=== PATIENT | female | born 1965 | race African-American/Black ===

== ENCOUNTER 2016-09-03 17:38 | Inpatient (IN) | payer OTHER, MEDICAID, MEDICARE ==
[2016-09-03] VITALS (10 sets, daily range): BP systolic 103–237; BP diastolic 51–102; PULSE 56–99; RESP 14–18; TEMP 97.8–99; O2SAT 81–100
[~2016-09-03] VITALS: Ht 154.9 cm; Wt 100.0 kg
[~2016-09-03 17:38] MED LIST: BUME1TAB PO; CARV25TA PO; CLON0.1T PO; GABA600T PO; LANTUS2P SQ; LIPI40TA PO; LISI-515 PO; PANT40TA3 PO; PERC10TA27 PO; ROBA500T PO; WARF4TAB52 PO
[2016-09-03] MEDS ORDERED: SUCCINYLCHOLINE CHLORIDE 200 MG/10 ML VIAL ONE (17:50)
[2016-09-03] MEDS ORDERED: ETOMIDATE 40 MG/20 ML VIAL ONE ×2 (17:50)
[2016-09-03] MEDS ORDERED: PROPOFOL 1000 MG/100 ML INJ 100 ML ONE (17:57)
[2016-09-03] MEDS ORDERED: SODIUM CHLORIDE 0.9% FLUSH 5 ML FLUSH IVF PRN (18:00)
[2016-09-03] MEDS ORDERED: NITROGLYCERIN-DEXTROSE INJ 250 ML IV ONE (18:00)
[2016-09-03] MEDS ORDERED: MIDAZOLAM 100 MG/ML INJ 100 ML IV SCH ×2 (18:00→20:00)
[2016-09-03] MEDS ORDERED: NITROGLYCERIN-DEXTROSE INJ 250 ML ONE (18:00)
[2016-09-03] MEDS: RESP: ALBUTEROL 2.5 MG/IPRATROPIUM 0.5 MG NEB (SCH) INH ×4 (18:00→20:23)
[2016-09-03] MEDS ORDERED: methylPREDNISolone SOD SUCC 125 MG/2 ML VIAL IVP ONE (18:00)
[2016-09-03] MEDS ORDERED: MIDAZOLAM HCL 5 MG/ML VIAL (1 ML) ONE (18:05)
[2016-09-03] MEDS ORDERED: MIDAZOLAM 100 MG/ML INJ 100 ML ONE (18:07)
[2016-09-03] MEDS ORDERED: fentaNYL DRIP 250 ML ONE (18:22)
--- NOTE | 2016-09-03 18:23 | PD ---
HPI Chief Complaint: Respiratory Distress Time Seen by Provider: 17:59 Travel History International Travel<30 days: No Contact w/Intl Traveler<30days: No Traveled to known affect area: No History of Present Illness HPI 51yo F with PMH of CHF, DM, PVD, HTN, Afib on coumadin, CKD presents to the ED with EVAC for SOB and chest pain today. Pt is tachypneic, saturating in the 70s , holding the BIPAP mask. Pt was not able to tolerate the BIPAP mask and agrees with endotracheal intubation. Pt was diaphoretic and hypertensive with crackles on lung exam. Pt stated she had the chest pain with sob but is in too much distress to answer any more questions. She was saturating in the 80s holding the BIPAP mask and not able to have it strapped on her so emergently intubated. Pt was admitted 07/22/16-07/25/16 for CHF exacerbation. PFSH Past Medical History Hx Anticoagulant Therapy: Yes Anemia: Yes Arthritis: Yes Asthma: No Atrial Fibrillation: Yes Autoimmune Disease: No Blood Disorders: No Anxiety: Yes Depression: No Heart Rhythm Problems: Yes (afib) Cancer: No Cardiovascular Problems: Yes High Cholesterol: No Chemotherapy: No Chest Pain: Yes Congestive Heart Failure: Yes COPD: Yes Cerebrovascular Accident: No Diabetes: Yes Diminished Hearing: No Deep Vein Thrombosis: Yes Endocrine: Yes Gastrointestinal Disorders: Yes (IBS) GERD: Yes Gout: Yes Genitourinary: Yes Headaches: Yes Hepatitis: No Hiatal Hernia: No Heparin Induced Thrombocytopen: No Hypertension: Yes Immune Disorder: No Implanted Vascular Access Dvce: No Kidney Stones: No Musculoskeletal: Yes Neurologic: No Psychiatric: Yes Reproductive: No Respiratory: Yes Immunizations Current: Yes Migraines: No Myocardial Infarction: No Pneumonia: Yes Radiation Therapy: No Renal Failure: No Seizures: No Sickle Cell Disease: No (carries trait) Sleep Apnea: Yes Thyroid Disease: No Ulcer: Yes Influenza Vaccination: No PNEUMOCCOCAL Vaccine (Year): 2 ?: Not Menopausal: Yes : 5 Para: 4 Miscarriage: 1 Tubal Ligation: Yes Past Surgical History Abdominal Surgery: No AICD: No Appendectomy: No Arteriovenous Shunt: No Cardiac Surgery: No Cholecystectomy: No Ear Surgery: No Endocrine Surgery: No Eye Surgery: No Genitourinary Surgery: No Gynecologic Surgery: Yes (tubal ligation) Insulin Pump: No Joint Replacement: No Neurologic Surgery: No Oral Surgery: Yes (tooth extraction) Pacemaker: No Thoracic Surgery: No Tonsillectomy: Yes Other Surgery: Yes (DEBRIDEMENT OF ABSCESS, STENT IN LT LEG, FASCIOTOMY LEFT LEG) Social History Alcohol Use: No Tobacco Use: No Substance Use: No Allergies-Medications (Allergen,Severity, Reaction): Coded Allergies: Ibuprofen (Verified Allergy, Severe, MESSES WITH KIDNEYS, 07/22/16) Sulfa (Verified Allergy, Severe, HIVES, 07/22/16) Egg Allergy (Verified Allergy, Intermediate, Very Upset Stomach, 07/22/16) Milk (Verified Allergy, Unknown, 07/22/16) *MDRO Multi-Drug Resistant Organism (Verified Adverse Reaction, Unknown, KPC, ESBL, MRSA, 09/04/16) MRSA (leg wound) - 11/2004, 01/2005 MRSA toe wound 12/21/14. 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 Reported Meds & Prescriptions Reported Meds & Active Scripts Active Robaxin (Methocarbamol) 500 Mg Tab 500 Mg PO TID Carvedilol 25 Mg Tab 25 Mg PO BID Lipitor (Atorvastatin Calcium) 40 Mg Tab 40 Mg PO HS Reported Glipizide 10 Mg Tab 10 Mg PO BID Take 30 minutes before a meal Vitamin D-3 (Cholecalciferol) 1,000 Unit Tab 1,000 Units PO DAILY Bumetanide 2 Mg Tab 2 Mg PO DAILY Warfarin 6 Mg Tab 6 Mg PO DAILY Percocet (Oxycodone-Acetaminophen) 10-325 mg Tab 1 Tab PO Q4H PRN Lantus Inj (Insulin Glargine) 1,000 Unit/10 Ml Vial 35 Units SQ BID Clonidine (Clonidine HCl) 0.1 Mg Tab 0.1 Mg PO BID Pantoprazole (Pantoprazole Sodium) 40 Mg Tab 40 Mg PO DAILY Lisinopril 20 Mg Tab 20 Mg PO BID Gabapentin 600 Mg Tab 600 Mg PO TID Review of Systems Except as stated in HPI: all other systems reviewed are Neg Physical Exam Narrative GENERAL: 51yo F in severe distress. SKIN: Warm and diaphoretic. HEAD: Atraumatic. Normocephalic. EYES: Pupils equal and round. No scleral icterus. No injection or drainage. ENT: No nasal bleeding or discharge. Mucous membranes pink and moist. NECK: Trachea midline. No JVD. CARDIOVASCULAR: Regular rate and rhythm. No murmur appreciated. RESPIRATORY: + accessory muscle use. Crackles on right, decreased breath sounds on left. GASTROINTESTINAL: Abdomen soft, non-tender, nondistended. Hepatic and splenic margins not palpable. MUSCULOSKELETAL: No obvious deformities. No clubbing. No cyanosis. +Bilateral lower extremity edema. LLE with medial scar and metatarsal amputation. DP 2+ on bilateral feet. NEUROLOGICAL: Awake and alert. No obvious cranial nerve deficits. Motor grossly within normal limits. Normal speech. Data Data Last Documented VS Vital Signs Date Time Temp Pulse Resp B/P Pulse Ox O2 Delivery O2 Flow Rate FiO2 09/03/16 19:24 99.0 63 14 132/60 95 Auto-Vent 100 Orders Etomidate Inj (Amidate Inj) (09/03/16 17:50) Succinylcholine Inj (Quelicin Inj) (09/03/16 17:50) Etomidate Inj (Amidate Inj) (09/03/16 17:50) Propofol 1000 Mg/100 Ml Inj (Diprivan 10 (09/03/16 17:57) Nitroglycerin-Dextrose Inj (Nitroglyceri (09/03/16 18:00) Complete Blood Count With Diff (09/03/16 17:59) Basic Metabolic Panel (Bmp) (09/03/16 17:59) B-Type Natriuretic Peptide (09/03/16 17:59) Act Partial Throm Time (Ptt) (09/03/16 17:59) Prothrombin Time / Inr (Pt) (09/03/16 17:59) Ckmb (Isoenzyme) Profile (09/03/16 17:59) Troponin I (09/03/16 17:59) Arterial Blood Gas (Abg) (09/03/16 17:59) Influenzae A/B Antigen (09/03/16 17:59) Blood Culture (09/03/16 17:59) Iv Access Insert/Monitor (09/03/16 17:59) Electrocardiogram (09/03/16 17:59) Ecg Monitoring (09/03/16 17:59) Oximetry (09/03/16 17:59) Oxygen Administration (09/03/16 17:59) Chest, Single Ap (09/03/16 17:59) Sodium Chloride 0.9% Flush (Ns Flush) (09/03/16 18:00) Methylprednisolone So Succ Inj (Solumedr (09/03/16 18:00) Albuterol-Ipratropium Neb (Duoneb Neb) (09/03/16 18:00) ^ Infusion (09/03/16 17:59) RASS (09/03/16 17:59) Neurological Rass Scale JUANY.Q2H (09/03/16 17:59) Midazolam Inj (Versed Inj) (09/03/16 18:00) Neurological Rass Scale Q30MX2,Q2HX4,Q4H (09/03/16 17:59) Nitroglycerin-Dextrose Inj (Nitroglyceri (09/03/16 18:00) Midazolam Inj (Versed Inj) (09/03/16 18:05) Midazolam Inj (Versed Inj) (09/03/16 18:07) Fentanyl Drip (Fentanyl Drip) (09/03/16 18:22) Lactic Acid Sepsis Protocol (09/03/16 18:22) Neurological Rass Scale Q30MX2,Q2HX4,Q4H (09/03/16 18:22) Fentanyl Drip (Fentanyl Drip) (09/03/16 18:30) Etomidate Inj (Amidate Inj) (09/03/16 18:30) Succinylcholine Inj (Quelicin Inj) (09/03/16 18:30) Midazolam Inj (Versed Inj) (09/03/16 18:30) Midazolam Inj (Versed Inj) (09/03/16 18:30) Fentanyl Inj (Fentanyl Inj) (09/03/16 18:30) Magnesium (Mg) (09/03/16 18:36) Fentanyl Inj (Fentanyl Inj) (09/03/16 19:00) Fentanyl Inj (Fentanyl Inj) (09/03/16 19:00) CKMB (09/03/16 18:13) CKMB% (09/03/16 18:13) Vancomycin Inj (Vancomycin Inj) (09/03/16 19:30) Piperacil-Tazo 2.25 Gm Premix (Zosyn 2.2 (09/03/16 19:30) Midazolam Inj (Versed Inj) (09/03/16 19:30) Admit Order (Ed Use Only) (09/03/16 19:26) Urinary Catheter Insert/Apply (09/03/16 19:27) Urinalysis - C+S If Indicated (09/03/16 19:27) Labs Laboratory Tests Test 09/03/16 09/03/16 09/03/16 18:13 19:20 19:26 White Blood Count 14.7 TH/MM3 Red Blood Count 5.10 MIL/MM3 Hemoglobin 12.1 GM/DL Hematocrit 38.7 % Mean Corpuscular Volume 75.9 FL Mean Corpuscular Hemoglobin 23.7 PG Mean Corpuscular Hemoglobin 31.2 % Concent Red Cell Distribution Width 15.5 % Platelet Count 314 TH/MM3 Mean Platelet Volume 9.9 FL Neutrophils (%) (Auto) 45.8 % Lymphocytes (%) (Auto) 44.9 % Monocytes (%) (Auto) 6.7 % Eosinophils (%) (Auto) 2.1 % Basophils (%) (Auto) 0.5 % Neutrophils # (Auto) 6.8 TH/MM3 Lymphocytes # (Auto) 6.6 TH/MM3 Monocytes # (Auto) 1.0 TH/MM3 Eosinophils # (Auto) 0.3 TH/MM3 Basophils # (Auto) 0.1 TH/MM3 CBC Comment AUTO DIFF Differential Total Cells 100 Counted Neutrophils % (Manual) 49 % Lymphocytes % 43 % Monocytes % 6 % Eosinophils % 2 % Neutrophils # (Manual) 7.2 TH/MM3 Differential Comment FINAL DIFF MANUAL Platelet Estimate NORMAL Platelet Morphology Comment NORMAL Prothrombin Time 36.4 SEC Prothromb Time International 3.1 RATIO Ratio Activated Partial 54.8 SEC Thromboplast Time Sodium Level 142 MEQ/L Potassium Level 4.2 MEQ/L Chloride Level 111 MEQ/L Carbon Dioxide Level 18.2 MEQ/L Anion Gap 13 MEQ/L Blood Urea Nitrogen 45 MG/DL Creatinine 1.63 MG/DL Estimat Glomerular Filtration 40 ML/MIN Rate Random Glucose 192 MG/DL Calcium Level 8.9 MG/DL Magnesium Level 2.1 MG/DL Total Creatine Kinase 142 U/L Creatine Kinase MB 2.4 NG/ML Troponin I LESS THAN 0.02 NG/ML B-Type Natriuretic Peptide 280 PG/ML Blood Gas Puncture Site RT FOOT Blood Gas Patient Temperature 98.6 Blood Gas HCO3 23 mmol/L Blood Gas Base Excess -2.0 mmol/L Blood Gas Oxygen Saturation 88 % Arterial Blood pH 7.36 Arterial Blood Partial 41 mmHg Pressure CO2 Arterial Blood Partial 71 mmHG Pressure O2 Arterial Blood Oxygen Content 14.3 Vol % Arterial Blood 1.9 % Carboxyhemoglobin Arterial Blood Methemoglobin 3.3 % Blood Gas Hemoglobin 11.5 G/DL Oxygen Delivery Device VENTILATOR Blood Gas Ventilator Setting PRVC Blood Gas Inspired Oxygen 100 % Lactic Acid Level 1.4 mmol/L MDM Medical Decision Making Medical Screen Exam Complete: Yes Emergency Medical Condition: Yes Interpretation(s) EKG: NSR 91bpm. Normal axis. PVCs. ST depression V4-V6. Differential Diagnosis Acute pulmonary edema vs. CHF exacerbation vs. COPD exacerbation vs. PNA vs. ACS Narrative Course 51yo F with CHF here in respiratory distress. Pt is hypoxic, not tolerating BIPAP so emergently intubated. IV push doses of versed and fentanyl given prior to arrival of drips. Pt was then sedated with versed drip and fentanyl drip. Pt also placed on nitroglycerin drip. Pt reevaluated at bedside and was still with intermittent agitation. Pt is now on versed 10ml/hr, fentanyl 10ml/hr with BP 149/70 and HR 66. Pt also on nitroglycerin drip at 3ml/hr. MV FiO2 100%. TV 500. RR 14. Peep 5. Total of 15mg versed IVP and 100mcg fentanyl IVP. Labs reviewed, mild leukocytosis at 14.7. Troponin negative. Glucose 192. BUN/creatinine increased at 45/1.63 which is mildly elevated from baseline. Lactic acid 1.4. BNP 280. Pt said she had COPD but no records of it in the prior note so empirically given duonebs x3 and methylprednisolone. Pt on coumadin for afib and INR is 3.1. CXR showed ET tube in positive. Diffuse bilateral infiltrates. Will cover with empiric antibiotics for HCAP with vancomycin and zosyn since pt was recently hospitalized. Discussed with Dr. Dowd and accepted to ICU. Discussed with son Mr. Dolan and answered all questions. Critical Care Narrative Aggregate critical care time was 45 minutes. Time to perform other separately billable procedures was not included in the critical care time. My time did not include minutes spent treating any other patients simultaneously or on activities that did not directly contribute to the patient's treatment. The services I provided to this patient were to treat and/or prevent clinically significant deterioration that could result in: cardiovascular collapse or . I provided critical care services requiring my management, as noted below: Chart data review, documentation time, medication orders and management, vital sign assessments/reviewing monitor data, ordering and reviewing lab tests, ordering and interpreting/reviewing x-rays and diagnostic studies, care of the patient and discussion of the patient with the admitting physicians. Procedures Procedure Narrative The patient was put in optimal position for the procedure. Rapid sequence intubation was initiated by me using 20 milligrams of etomidate IV and 100 milligrams of succinylcholine IV. The patient was intubated with a 7.5 cuffed endotracheal tube. Tube placement was confirmed by visualization of the tube and balloon passing through the cords, capnometry and subsequent chest x-ray. Breath sounds were equal and well aerated bilaterally postintubation. No breath sounds over stomach. Patient tolerated procedure well. Diagnosis Primary Impression: Acute hypoxemic respiratory failure Admitting Information Admitting Physician Requests: it Alina Yu DO Sep 03, 2016 18:22
[2016-09-03] MEDS ORDERED: ETOMIDATE 20 MG/10 ML VIAL IV PUSH ONE (18:30)
[2016-09-03] MEDS ORDERED: SUCCINYLCHOLINE CHLORIDE 200 MG/10 ML VIAL IV PUSH ONE (18:30)
[2016-09-03] MEDS ORDERED: fentaNYL DRIP 250 ML IV SCH ×2 (18:30→20:00)
[2016-09-03] MEDS ORDERED: MIDAZOLAM HCL 2 MG/2 ML VIAL IV PUSH ONE ×2 (18:30)
[2016-09-03 18:32] LABS: AUTOMATED NEUTROPHIL # 6.8 TH/MM3 (1.8-7.7); BASOPHIL # 0.1 TH/MM3 (0-0.2); BASOPHIL % 0.5 % (0.0-2.0); EOSINOPHIL # 0.3 TH/MM3 (0-0.4); EOSINOPHIL % 2.1 % (0.0-4.0); HEMATOCRIT 38.7 % (35.0-46.0); LYMPH % 44.9 % (9.0-44.0); LYMPHOCYTE # 6.6 TH/MM3 (1.0-4.8); MEAN CELL VOLUME 75.9 FL (80.0-100.0); MEAN CORPUSCULAR HEMOGLOBIN 23.7 PG (27.0-34.0); MEAN CORPUSCULAR HGB CONC 31.2 % (32.0-36.0); MONO % 6.7 % (0.0-8.0); NEUT % 45.8 % (16.0-70.0); PLATELET COUNT 314 TH/MM3 (150-450); RED CELL DISTRIBUTION WIDTH 15.5 % (11.6-17.2); WHITE BLOOD COUNT 14.7 TH/MM3 (4.0-11.0)
[2016-09-03 18:37] LABS: HEMO FLAGS AUTO DIFF
[2016-09-03 18:45] LABS: APTT (PATIENT) 54.8 SEC (24.3-30.1); INTERNATIONAL NORMALIZED RATIO 3.1 RATIO; PROTHROMBIN TIME - PATIENT 36.4 SEC (9.8-11.6)
[2016-09-03 18:59] LABS: EOSINOPHILS 2 % (0-4); NEUTROPHIL # MANUAL DIFF 7.2 TH/MM3 (1.8-7.7); PLATELET ESTIMATE SMEAR NORMAL (NORMAL); PLATELET MORPHOLOGY NORMAL (NORMAL); POLYS (SEG NEUTROPHILS) 49 % (16-70); WBC DIFF SAMPLE 100
[2016-09-03 19:00] LABS: SCAN/DIFF FINAL DIFF MANUAL
--- NOTE | 2016-09-03 19:00 | HHI.HP ---
HPI Service Critical Care Medicine Primary Care Physician Unknown Admission Diagnosis Diagnosis: Travel History International Travel<30 Days: No Contact w/Intl Traveler <30 Da: No Traveled to Known Affected Are: No History of Present Illness 51 yo F with PMH of HTN, chronic systolic CHF, atrial fibrillation on warfarin anticoagulation, DM, COPD, obesity, PAD, CKD Stage III who presents to [facility] with SOB. She was hypoxic in 70s with significant distress and did not tolerate Bipap mask so was emergently intubated with routine airway. She was not able to provide significant history due to severe breathlessness. ED staff states she denied fever at home. CXR demonstrates bilateral alveolar opacities. EKG is sinus rhythm with ST depresion V4-V6. She was difficult to sedate following intubation and was given Versed 20 mg IV and started on versed drip 10 mg/hr and Fentanyl drip 100 mcg/hr. She as reported egg allergy so propofol was avoided. She has BLE 2+ edema. Most recent admission 07/22/16 for CHF. Echo with EF 45-50% with diffuse hypokinesis. Patient's son presented to bedside in the emergency department. He states that she has had her grandchildren visiting for the last couple of days and that she has been more active than usual and had not expressed any complaints to him whatsoever until she became SOB this afternoon. Past Family Social History Allergies: Coded Allergies: Ibuprofen (Verified Allergy, Severe, MESSES WITH KIDNEYS, 07/22/16) Sulfa (Verified Allergy, Severe, HIVES, 07/22/16) Egg Allergy (Verified Allergy, Intermediate, Very Upset Stomach, 07/22/16) Milk (Verified Allergy, Unknown, 07/22/16) *MDRO Multi-Drug Resistant Organism (Verified Adverse Reaction, Unknown, 07/22/16) MRSA (leg wound) - 11/2004, 01/2005 MRSA toe wound 12/21/14. 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 Past Medical History Hypertension Diabetes Hyperlipidemia Peripheral neuropathy Chronic systolic heart failure Osteomyelitis left leg requiring debridement, skin, amputation Past Surgical History Tonsillectomy Bilateral bilateral tubal ligation Right knee Debridement of left lower extremity secondary to osteomyelitis; wound vac placement Amputation third through fifth toes Reported Medications Lisinopril 20 mg by mouth twice a day Warfarin 6 mg by mouth daily Gabapentin 600 mg by mouth 3 times a day Carvedilol 25 mg by mouth twice a day Clonidine 0.1 mg by mouth twice a day Robaxin 100 mg by mouth 3 times a day Lipitor 40 mg by mouth daily at bedtime Lantus 35 units subcutaneous twice a day Bumex 2 mg by mouth daily Percocet 10/325 one by mouth every 4 hours when necessary pain Pantoprazole 40 mg by mouth daily Glipizide 10 mg by mouth twice a day Cholecalciferol 1000 units by mouth daily Family History Unable to obtain from patient currently due to clinical condition Social History Unable to obtain from patient due to medical condition. She is a nonsmoker. She reportedly quit in October 2015. Physical Exam Vital Signs Vital Signs Date Time Temp Pulse Resp B/P Pulse Ox O2 Delivery O2 Flow Rate FiO2 09/03/16 18:54 16 97 Ventilator 09/03/16 18:54 97 Ventilator 50 09/03/16 18:00 94 100 09/03/16 17:56 92 18 237/102 95 Ventilator 09/03/16 17:56 109 18 98 Room Air 09/03/16 17:45 97.8 99 18 237/102 81 Physical Exam Drips: Fentanyl 100 g per hour Versed 10 mg per hour Temperature 97.8 Blood pressure 118/56 sats 96% room air rate 70 GENERAL: Morbidly obese female who is orotracheally intubated and sedated SKIN: Warm and dry. HEAD: Atraumatic. Normocephalic. EYES: Pupils equal and round 2 mm and reactive bilaterally.. No scleral icterus. No injection or drainage. ENT: No nasal bleeding or discharge. Mucous membranes pink and moist. NECK: Trachea midline. No JVD. 7.[address] CARDIOVASCULAR: Regular rate and rhythm, sinus rhythm on monitor. No murmurs rubs or gallops. RESPIRATORY: Basilar Rales, diminished left base. No wheezes. No significant secretions with suctioning. GASTROINTESTINAL: Abdomen soft, non-tender, nondistended. There is a vertical scar inferior to umbilicus that is well-healed. MUSCULOSKELETAL: Extremities without clubbing, cyanosis. There is 2+ edema bilateral lower extremities. There is a healing incision in the medial aspect of left lower leg. She is status post amputation of third through fifth toes NEUROLOGICAL: Opens eyes, moves all extremities spontaneously. Not currently following commands but reportedly was following commands in the emergency department. Laboratory Laboratory Tests Test 09/03/16 18:13 White Blood Count 14.7 Red Blood Count 5.10 Hemoglobin 12.1 Hematocrit 38.7 Mean Corpuscular Volume 75.9 Mean Corpuscular Hemoglobin 23.7 Mean Corpuscular Hemoglobin 31.2 Concent Red Cell Distribution Width 15.5 Platelet Count 314 Mean Platelet Volume 9.9 Neutrophils (%) (Auto) 45.8 Lymphocytes (%) (Auto) 44.9 Monocytes (%) (Auto) 6.7 Eosinophils (%) (Auto) 2.1 Basophils (%) (Auto) 0.5 Neutrophils # (Auto) 6.8 Lymphocytes # (Auto) 6.6 Monocytes # (Auto) 1.0 Eosinophils # (Auto) 0.3 Basophils # (Auto) 0.1 CBC Comment AUTO DIFF Prothrombin Time 36.4 Prothromb Time International 3.1 Ratio Activated Partial 54.8 Thromboplast Time Result Diagram: 09/03/16 1210 Assessment and Plan Problem List: (1) Atrial fibrillation ICD Code: I48.91 Status: Chronic (2) Diabetic neuropathy ICD Code: E11.40 Status: Acute (3) Diabetes mellitus ICD Code: E11.9 Status: Chronic Assessment and Plan NEURO: Egg allergy Peripheral neuropathy Fentanyl drip for analgosedation. Versed boluses to mill grams IV every 15 minutes when necessary. Versed drip Avoiding propofol due to history of egg allergy. Continue gabapentin 600 mg per tube 3 times a day. Hold Robaxin 500 mg per tube 3 times a day for now RESP: Acute hypoxemic respiratory failure Pulmonary edema secondary to acute exacerbation of chronic systolic heart failure COPD Former smoker Probable obesity hypoventilation syndrome Ventilator bundle. Change to PRVC TV 500 R 14 PEEP 10 IT 0.9 FIO2 100% and wean for sat >92% Presentation appears most consistent with acute exacerbation of CHF based on bilateral opacities, elevated BNP, peripheral edema, Weight up ~ 20 kg from prior admission. Diuresis as per below. Duoneb q 6 hours and q2 hours prn. CV: Hypertension Atrial fibrillation on anticoagulation with warfarin Chronic systolic heart failure Peripheral arterial disease Hyperlipidemia Continue lisinopril 20 mg by mouth twice a day continue Coreg 25 mg po bid (with hold orders) Hold Clonidine 0.1 mg by mouth twice a day Continue statin Hold warfarin tonight in case she bumps troponins and requires cath. INR 3 and may increase following antibiotics. Wean NTG to maintain SBP 135-155 as patients baseline SBP is 170s during prior admissions. Will adjust to lower target if e/o ischemia. Bumex 2 mg IV q12 hours Limited 2D Echo Echo from 07/23/16 EF 45-50% with diffuse hypokinesis. Seen by Dr. Bellamy. GI: Morbid obesity Irritable bowel syndrome with chronic diarrhea GERD OGT in place LIWS. Initiate enteral feeds in 24 hours if not extubating FEN/RENAL: CKD stage III [place] [address]. Monitor intake and output. Monitor electrolytes Check magnesium and phosphorus. ID: Leukocytosis, lymph predominant Influenza pending. Blood and urine culture pending. Send sputum culture, urine legionella and pneumococcal antigen. Atypical coverage with levaquin pending culture results. Received zosyn and vanc in ED 09/03. HEME: Monitor CBC ENDO: Diabetes mellitus Hold glipizide 10 po bid. . Medium dose Regular insulin sliding scale with bedside glucose q6 hours. Follow-up TSH PROPH: INR is therapeutic which will provide DVT prophylaxis. SCDs. Protonix 40 mg IV daily for stress ulcer prophylaxis and history of GERD. ACCESS: PIV and EJ providing adequate access at this time. Patient's son was updated at bedside. FULL CODE. Critical care time 60 minutes exclusive of separately billable procedures. Problem Qualifiers (1) Diabetes mellitus: Marbella Dowd MD Sep 03, 2016 19:00
[2016-09-03 19:03] LABS: ANION GAP 13 MEQ/L (5-15); BICARBONATE 18.2 MEQ/L (21.0-32.0); BLOOD UREA NITROGEN 45 MG/DL (7-18); CHLORIDE 111 MEQ/L (98-107); GLOMERULAR FILTRATION RATE 40 ML/MIN (>89); POTASSIUM 4.2 MEQ/L (3.5-5.1); SODIUM (NA) 142 MEQ/L (136-145)
[2016-09-03 19:07] LABS: CREATINE KINASE 142 U/L (26-192)
[2016-09-03] MEDS ORDERED: BUME2TAB PO (19:07)
[2016-09-03] MEDS ORDERED: GLIP10TA6 PO (19:07)
[2016-09-03] MEDS ORDERED: WARF-60 PO (19:07)
[2016-09-03] MEDS ORDERED: VITA10003 PO (19:07)
--- NOTE | 2016-09-03 19:07 | RADRPT ---
EXAM DATE/TIME: 09/03/2016 18:24 [facility] COMPARISON: No previous studies available for comparison. INDICATIONS : Short of breath. MEDICAL HISTORY : Congestive heart failure. Chronic obstructive pulmonary disease. Diabetes mellitus type II. SURGICAL HISTORY : None. ENCOUNTER: Initial ACUITY: 1 day PAIN SCORE: Non-responsive. LOCATION: Bilateral chest FINDINGS: Endotracheal tube is present suspect position. Nasogastric tube descends into the stomach. Diffuse bi lateral interstitial and alveolar parenchymal opacities are present most confluent in the lung bases. Heart size is borderline. CONCLUSION: Diffuse bilateral infiltrates Isaak Woodwrad MD on September 03, 2016 at 19:05 Board Certified Radiologist. This report was verified electronically.
[2016-09-03 19:19] LABS: CKMB 2.4 NG/ML (0.5-3.6)
[2016-09-03] MEDS ORDERED: PIPERACIL-TAZO 2.25 GM PREMIX 50 ML IV ONE (19:30)
[2016-09-03] MEDS ORDERED: VANCOMYCIN INJ 1,000 MG in SODIUM CHLOR 0.9% 250 ML INJ 250 ML IV ONE (19:30)
[2016-09-03] MEDS: MIDAZOLAM HCL 2 MG/2 ML VIAL IV PUSH ONE ×2 (19:30→20:10)
[2016-09-03] MEDS ORDERED: CHLORHEXIDINE GLUCONATE 2 % 1 PACK (2 CLOTHS) TOP PRN (20:00)
[2016-09-03] MEDS ORDERED: SODIUM CHLORIDE 0.9% FLUSH 5 ML FLUSH IV FLUSH PRN (20:00)
[2016-09-03] MEDS ORDERED: MISCELLANEOUS NURSING INFORMATION XX SCH (20:00)
[2016-09-03] MEDS ORDERED: NITROGLYCERIN-DEXTROSE INJ 250 ML IV SCH (20:00)
[2016-09-03] MEDS ORDERED: RESP: ALBUTEROL 2.5 MG/3 ML NEB (PRN) INH (20:00)
[2016-09-03] MEDS ORDERED: ACETAMINOPHEN 325 MG TAB TUBE PRN (20:00)
[2016-09-03] MEDS ORDERED: ONDANSETRON HCL 4 MG/2 ML VIAL IV PRN (20:00)
[2016-09-03] MEDS ORDERED: FUROSEMIDE 40 MG/4 ML VIAL IV PUSH SCH (20:00)
[2016-09-03] MEDS ORDERED: POTASSIUM PHOSPHATE INJ 30 MMOL in SODIUM CHLOR 0.9% 250 ML INJ 250 ML IV PRN (20:15)
[2016-09-03] MEDS ORDERED: MAGNESIUM SULFATE INJ 4 GM in SODIUM CHLORIDE 0.9% INJ 92 ML IV PRN (20:15)
[2016-09-03] MEDS ORDERED: POTASSIUM PHOSPHATE MONOBASIC 500 MG TAB PO/TUBE PRN (20:15)
[2016-09-03] MEDS ORDERED: MAGNESIUM OXIDE 400 MG TAB PO PRN (20:15)
[2016-09-03] MEDS ORDERED: POTASSIUM PHOSPHATE MONOBASIC 500 MG TAB PO PRN (20:15)
[2016-09-03] MEDS ORDERED: SODIUM PHOSPHATE INJ 30 MMOL in SODIUM CHLOR 0.9% 250 ML INJ 240 ML IV PRN (20:15)
[2016-09-03] MEDS ORDERED: POTASSIUM CL 40 MEQ/30 ML LIQ UDC PO/TUBE PRN ×2 (20:15)
[2016-09-03] MEDS ORDERED: MAGNESIUM SULFATE INJ 2 GM in SODIUM CHLORIDE 0.9% INJ 96 ML IV PRN (20:15)
[2016-09-03] MEDS ORDERED: POTASSIUM CHLOR 40 MEQ PREMIX 100 ML IV PRN ×2 (20:15)
[2016-09-03] MEDS ORDERED: POTASSIUM CHLOR 20 MEQ PREMIX 100 ML IV PRN ×2 (20:15)
[2016-09-03] MEDS: SODIUM CHLORIDE 0.9% FLUSH 5 ML FLUSH IV FLUSH SCH (21:00)
[2016-09-03 21:55] LABS: BACTERIA, URINE RARE /hpf; BLOOD, URINE SMALL (NEG); GLUCOSE,URINE NEG (NEG); KETONE, URINE NEG (NEG); NITRITE,URINE NEG (NEG); PH, URINE 5.5 (5.0-8.5); URINE COLOR LIGHT-YELLOW (YELLW/STRAW)
[2016-09-03 21:56] LABS: COMMENT (UR) CATH-CULTURE IND; CULTURE IF INDICATED CATH CULTURE IND
[2016-09-03] MEDS: BUMETANIDE INJ 1 MG/4 ML VIAL IV PUSH SCH (22:30)
[2016-09-03 22:53] LABS: BLOOD GAS CARBOXYHEMOGLOBIN 1.9 % (0-4); BLOOD GAS HCO3 23 mmol/L (22-26); BLOOD GAS METHEMOGLOBIN 3.3 % (0-2); BLOOD GAS O2 HGB SATURATION 88 % (90-100); BLOOD GAS OXYGEN CONTENT 14.3 Vol % (12.0-20.0); BLOOD GAS PCO2 41 mmHg (38-42); BLOOD GAS PO2 71 mmHG (61-120); BLOOD GAS TOTAL HGB 11.5 G/DL (12.0-16.0); TEMP CORR TO 98.6
[2016-09-03 22:54] LABS: CRITICAL VALUE YES; OXYGEN DEVICE VENTILATOR; VENT SETTINGS PRVC
[2016-09-03 22:55] LABS: DRAW SITE RT FOOT; FIO2 100 %; NUMBER OF ARTERIAL PUNCTURES 1; STAT NO
[2016-09-04] VITALS (19 sets, daily range): BP systolic 129–189; BP diastolic 64–78; PULSE 53–77; RESP 14–20; TEMP 97.5–98.7; O2SAT 94–100
[2016-09-04] MEDS: RESP: ALBUTEROL 2.5 MG/IPRATROPIUM 0.5 MG NEB (SCH) INH ×4 (03:09→21:10)
[2016-09-04] MEDS: CHLORHEXIDINE GLUCONATE 2 % 1 PACK (2 CLOTHS) TOP SCH (04:00)
--- NOTE | 2016-09-04 04:40 | RADRPT ---
EXAM DATE/TIME: 09/04/2016 03:06 [facility] COMPARISON: CHEST SINGLE AP, September 03, 2016, 18:24. INDICATIONS : Shortness of breath. MEDICAL HISTORY : Congestive heart failure. Deep venous thrombosis. Chronic obstructive pulmonary disease. IBS, Per ipheral neuropathy, AFIB, Anemia, Pneumonia, HTN, Ulcer, Gallbladder disease, GERD, Renal disease, Os teoarthritis, Gout, Diabetes, MRSA SURGICAL HISTORY : Tonsillectomy. Tubal ligation. Mastectomy, Colectomy ENCOUNTER: Initial ACUITY: 2 days PAIN SCORE: Non-responsive. LOCATION: Bilateral chest FINDINGS: A single portable frontal view of the chest shows no interval change. Bilateral pulmonary infiltrates . Heart is mildly enlarged. Endotracheal tube tip approximately 2 cm from the elizabeth. Nasogastric tub e courses off the inferior margin of the film. CONCLUSION: Unchanged bilateral pulmonary infiltrates. Manish Ortiz Jr., MD on September 04, 2016 at 4:37 Board Certified Radiologist. This report was verified electronically.
[2016-09-04] MEDS: LEVOFLOXACIN 750 MG PREMIX INJ 150 ML IV SCH (04:49)
[2016-09-04 05:57] LABS: BLOOD GAS BASE EXCESS -2.8 mmol/L (-2-2); BLOOD GAS CARBOXYHEMOGLOBIN 0.8 % (0-4); BLOOD GAS HCO3 23 mmol/L (22-26); BLOOD GAS METHEMOGLOBIN 2.1 % (0-2); BLOOD GAS O2 HGB SATURATION 94 % (90-100); BLOOD GAS OXYGEN CONTENT 15.6 Vol % (12.0-20.0); BLOOD GAS PCO2 48 mmHg (38-42); BLOOD GAS PO2 104 mmHg (61-120); BLOOD GAS TOTAL HGB 11.7 G/DL (12.0-16.0); CRITICAL VALUE NO; OXYGEN DEVICE VENTILATOR; TEMP CORR TO 98.6
[2016-09-04 05:59] LABS: DRAW SITE RT BRACHIAL; FIO2 90 %; NUMBER OF ARTERIAL PUNCTURES 1; STAT NO; VENT SETTINGS PRVC/AC/VT500/RR14
[2016-09-04 06:29] LABS: AUTOMATED NEUTROPHIL # 8.6 TH/MM3 (1.8-7.7); BASOPHIL % 0.2 % (0.0-2.0); HEMATOCRIT 36.1 % (35.0-46.0); LYMPH % 6.5 % (9.0-44.0); LYMPHOCYTE # 0.6 TH/MM3 (1.0-4.8); MEAN CELL VOLUME 74.9 FL (80.0-100.0); MEAN CORPUSCULAR HEMOGLOBIN 23.5 PG (27.0-34.0); MEAN CORPUSCULAR HGB CONC 31.4 % (32.0-36.0); MONO % 1.2 % (0.0-8.0); NEUT % 92.1 % (16.0-70.0); PLATELET COUNT 248 TH/MM3 (150-450); RED BLOOD COUNT 4.82 MIL/MM3 (4.00-5.30); RED CELL DISTRIBUTION WIDTH 15.5 % (11.6-17.2); WHITE BLOOD COUNT 9.3 TH/MM3 (4.0-11.0)
[2016-09-04 06:32] LABS: HEMO FLAGS AUTO DIFF
[2016-09-04 07:02] LABS: ALKALINE PHOSPHATASE 114 U/L (45-117); ALT (GPT) 26 U/L (10-53); ANION GAP 8 MEQ/L (5-15); AST (GOT) 21 U/L (15-37); BICARBONATE 25.5 MEQ/L (21.0-32.0); BLOOD UREA NITROGEN 42 MG/DL (7-18); CHLORIDE 111 MEQ/L (98-107); GLOMERULAR FILTRATION RATE 53 ML/MIN (>89); POTASSIUM 4.3 MEQ/L (3.5-5.1); SODIUM (NA) 144 MEQ/L (136-145); TOTAL BILIRUBIN ADULT 0.3 MG/DL (0.2-1.0)
[2016-09-04 07:59] LABS: SCAN/DIFF AUTO DIFF CONFIRMED
[2016-09-04] MEDS: CHLORHEXIDINE 0.12% (ORAL KIT) 15 ML CUP MT SCH ×2 (08:00→19:32)
[2016-09-04] MEDS ORDERED: LORazepam 2 MG/ML VIAL ONE ×2 (08:23→08:24)
[2016-09-04] MEDS: LISINOPRIL 20 MG TAB TUBE SCH ×2 (08:30→19:41)
[2016-09-04] MEDS: PANTOPRAZOLE SODIUM 40 MG VIAL IV SCH (08:30)
[2016-09-04] MEDS: GABAPENTIN 300 MG CAP PO SCH ×2 (08:30→19:42)
[2016-09-04] MEDS: CARVEDILOL 12.5 MG TAB PO SCH ×2 (08:30→19:42)
[2016-09-04] MEDS: CHOLECALCIFEROL (VIT D3) 1000 UNIT TAB PO SCH (08:31)
[2016-09-04] MEDS: BUMETANIDE INJ 1 MG/4 ML VIAL IV PUSH SCH ×2 (08:31→19:41)
[2016-09-04] MEDS: SODIUM CHLORIDE 0.9% FLUSH 5 ML FLUSH IV FLUSH SCH ×2 (08:31→19:42)
[2016-09-04] MEDS ORDERED: LORazepam 2 MG/ML VIAL IV ONE (08:45)
[2016-09-04] MEDS ORDERED: GABAPENTIN 300 MG CAP PO SCH (09:00)
--- NOTE | 2016-09-04 09:03 | HHI.CCPN ---
Subjective Remarks/Hospital Course 09/03: 51 yo F with PMH of HTN, chronic systolic CHF, atrial fibrillation on warfarin anticoagulation, DM, COPD, obesity, PAD, CKD Stage III who presents to [facility] with SOB. She was hypoxic in 70s with significant distress and did not tolerate Bipap mask so was emergently intubated with routine airway. She was not able to provide significant history due to severe breathlessness. ED staff states she denied fever at home. CXR demonstrates bilateral alveolar opacities. EKG is sinus rhythm with ST depresion V4-V6. She was difficult to sedate following intubation and was given Versed 20 mg IV and started on versed drip 10 mg/hr and Fentanyl drip 100 mcg/hr. She as reported egg allergy so propofol was avoided. She has BLE 2+ edema. Most recent admission 07/22/16 for CHF. Echo with EF 45-50% with diffuse hypokinesis. Patient's son presented to bedside in the emergency department. He states that she has had her grandchildren visiting for the last couple of days and that she has been more active than usual and had not expressed any complaints to him whatsoever until she became SOB this afternoon. 09/04: Remains sedated, easily arouses, on [facility] ventilation. Objective Vital Signs Date Time Temp Pulse Resp B/P Pulse Ox O2 Delivery O2 Flow Rate FiO2 09/04/16 08:23 50 09/04/16 08:11 98 09/04/16 06:00 53 09/04/16 04:35 98.1 17 169/73 09/04/16 04:00 Ventilator Result Diagram: 09/04/16 0600 09/04/16 0600 Other Results Laboratory Tests Test 09/03/16 09/04/16 19:20 05:45 Blood Gas Puncture Site RT FOOT RT BRACHIAL Blood Gas Patient Temperature 98.6 98.6 Blood Gas HCO3 23 mmol/L 23 mmol/L (22-26) (22-26) Blood Gas Base Excess -2.0 mmol/L -2.8 mmol/L (-2-2) (-2-2) Blood Gas Oxygen Saturation 88 % (90-100) 94 % (90-100) Arterial Blood pH 7.36 7.30 (7.380-7.420) (7.380-7.420) Arterial Blood Partial 41 mmHg (38-42) 48 mmHg (38-42) Pressure CO2 Arterial Blood Partial 71 mmHG 104 mmHg Pressure O2 (61-120) (61-120) Arterial Blood Oxygen Content 14.3 Vol % 15.6 Vol % (12.0-20.0) (12.0-20.0) Arterial Blood 1.9 % (0-4) 0.8 % (0-4) Carboxyhemoglobin Arterial Blood Methemoglobin 3.3 % (0-2) 2.1 % (0-2) Blood Gas Hemoglobin 11.5 G/DL 11.7 G/DL (12.0-16.0) (12.0-16.0) Oxygen Delivery Device VENTILATOR VENTILATOR Blood Gas Ventilator Setting PRVC PRVC/AC/VT500/RR14 Blood Gas Inspired Oxygen 100 % 90 % Imaging Last 24 hours Impressions Chest X-Ray 09/04/16 0000 Signed Impressions: Service Date/Time: Sunday, September 04, 2016 03:06 - CONCLUSION: Unchanged bilateral pulmonary infiltrates. Manish Ortiz Jr., MD Chest X-Ray 09/03/16 1759 Signed Impressions: Service Date/Time: Saturday, September 03, 2016 18:24 - CONCLUSION: Diffuse bilateral infiltrates Isaak Woodward MD Objective Remarks Drips: Fentanyl 250 g per hour Versed 10 mg per hour GENERAL: Morbidly obese female who is orotracheally intubated and sedated SKIN: Warm and dry. HEAD: Atraumatic. Normocephalic. EYES: Pupils equal and round 2 mm and reactive bilaterally.. No scleral icterus. No injection or drainage. ENT: No nasal bleeding or discharge. Mucous membranes pink and moist. NECK: Trachea midline. No JVD. 7.[address] CARDIOVASCULAR: Regular rate and rhythm, sinus rhythm. No murmurs rubs or gallops. RESPIRATORY: Basilar Rales, diminished left base. No wheezes. No significant secretions with suctioning. GASTROINTESTINAL: Abdomen soft, non-tender, nondistended. There is a vertical scar inferior to umbilicus that is well-healed. MUSCULOSKELETAL: Extremities without clubbing, cyanosis. There is 2+ edema bilateral lower extremities. There is a healing incision in the medial aspect of left lower leg. She is status post amputation of third through fifth toes NEUROLOGICAL: Sedated, easily arousable, opens eyes, moves all extremities spontaneously. Urinary Catheter: Yes Assessment to: Continue A/P Problem List: (1) Atrial fibrillation ICD Code: I48.91 Status: Chronic (2) Diabetic neuropathy ICD Code: E11.40 Status: Acute (3) Diabetes mellitus ICD Code: E11.9 Status: Chronic Assessment and Plan NEURO: Egg allergy Peripheral neuropathy Fentanyl drip for analgosedation. Versed drip. Ativan prn. Avoiding propofol due to history of egg allergy. Continue gabapentin 600 mg per tube 3 times a day. Hold Robaxin 500 mg per tube 3 times a day for now RESP: Acute hypoxemic respiratory failure Pulmonary edema secondary to acute exacerbation of chronic systolic heart failure COPD Former smoker Probable obesity hypoventilation syndrome Ventilator bundle. PRVC TV 500 R 14 PEEP 5 IT 0.9 FIO2 50% and wean for sat >92% Presentation appears most consistent with acute exacerbation of CHF based on bilateral opacities, elevated BNP, peripheral edema, Weight up ~ 20 kg from prior admission. Diuresis as per below. Duoneb q 6 hours and q2 hours prn. CV: Hypertension Atrial fibrillation on anticoagulation with warfarin Chronic systolic heart failure Peripheral arterial disease Hyperlipidemia Continue lisinopril 20 mg by mouth twice a day continue Coreg 25 mg po bid (with hold orders) Resume Clonidine 0.1 mg by mouth twice a day. Add labetalol 20mg Q2hrly prn for SBP greater than 160mm Hg Continue statin Hold warfarin in case she bumps troponins and requires cath. INR 3 and may increase following antibiotics. Wean NTG to maintain SBP 135-155 as patients baseline SBP is 170s during prior admissions. Will adjust to lower target if e/o ischemia. Bumex 2 mg IV q12 hours Limited 2D Echo Echo from 07/23/16 EF 45-50% with diffuse hypokinesis. Seen by Dr. Gillette/ Josesito previously. Reconsulted cardiology - Dr. Gillette for eval of recurrent CHF , uncontrolled HTN.. GI: Morbid obesity Irritable bowel syndrome with chronic diarrhea GERD OGT in place LIWS. Initiate enteral feeds in 24 hours if not extubating FEN/RENAL: CKD stage III [place] [address]. Monitor intake and output. Monitor electrolytes Check magnesium and phosphorus. ID: Leukocytosis, lymph predominant Influenza pending. Blood and urine culture pending. Send sputum culture, urine legionella and pneumococcal antigen. Atypical coverage with levaquin pending culture results. Received zosyn and vanc in ED 09/03. HEME: Monitor CBC ENDO: Diabetes mellitus Hold glipizide 10 po bid. . Medium dose Regular insulin sliding scale with bedside glucose q6 hours. Follow-up TSH PROPH: INR is therapeutic which will provide DVT prophylaxis. SCDs. Protonix 40 mg IV daily for stress ulcer prophylaxis and history of GERD. ACCESS: PIV and EJ providing adequate access at this time. Patient's son was updated at bedside by Dr. Dowd on 09/03. FULL CODE. Critical care time 40 minutes exclusive of separately billable procedures. Problem Qualifiers (1) Diabetes mellitus: Alejandro Major MD Sep 04, 2016 09:03
[2016-09-04] MEDS: cloNIDine HCL 0.1 MG TAB PO SCH ×2 (09:23→19:41)
--- NOTE | 2016-09-04 09:37 | EKG ---
Date Performed: 09/04/2016 Time Performed: 06:58:05 PTAGE: 51 years EKG: SINUS BRADYCARDIA PROLONGED QT INTERVAL ABNORMAL ECG PREVIOUS TRACING : 09/03/2016 23.50 DOCTOR: Dionicio Junior Interpretating Date/Time 09/04/2016 09:36:27
[2016-09-04] MEDS: LABETALOL HCL 100 MG/20 ML VIAL IV PUSH PRN (09:38)
[2016-09-04] MEDS ORDERED: LORazepam 2 MG/ML VIAL IV PRN (11:00)
--- NOTE | 2016-09-04 11:10 | EKG ---
Date Performed: 09/03/2016 Time Performed: 23:50:18 PTAGE: 51 years EKG: SINUS BRADYCARDIA BORDERLINE ECG PREVIOUS TRACING : 09/03/2016 18.08 DOCTOR: Dionicio Junior Interpretating Date/Time 09/04/2016 11:09:24
--- NOTE | 2016-09-04 11:39 | EKG ---
Date Performed: 09/03/2016 Time Performed: 18:08:25 PTAGE: 51 years EKG: Sinus rhythm WITH FREQUENT VENTRICULAR PREMATURE COMPLEXES POSSIBLE LEFT ATRIAL ENLARGEMENT LOW QRS VOLTAGE IN EX TREMITY LEADS MODERATE ST DEPRESSION ABNORMAL QRS-T ANGLE ABNORMAL ECG PREVIOUS TRACING : 07/24/2016 12.44 DOCTOR: Dionicio Junior Interpretating Date/Time 09/04/2016 11:38:20
--- NOTE | 2016-09-04 13:04 | MB ---
cc: WILLAM WELLER DATE OF CONSULTATION 09/04/2016 DATE OF 1965 REASON FOR CONSULTATION Uncontrolled hypertension, cardiomyopathy, heart failure. HISTORY OF PRESENT ILLNESS This is a 51-year-old female with a past medical history significant for diabetes, hypertension, heart failure, hyperlipidemia, obesity, atrial fibrillation on oral anticoagulation who presented to the hospital complaining of worsening shortness of breath and chest pain yesterday. She was brought to the ER through EMS. At that time, she was complaining of shortness of breath and chest pain. She was found to be tachypneic, hypoxemic with saturations in the low 70s and not tolerating the BiPap machine. The patient appeared to be in pulmonary edema at that time and not tolerating bypass so which the patient was emergently intubated. Her blood pressure at that time on arrival to the ER was 237/102. Today, the patient was successfully extubated, however, she remained somnolent. Thus most of the history is taken from the chart. She denies chest pain, shortness of breath, or palpitations. Cardiology has been consulted for further evaluation and management of heart failure. Of note, she was here recently in July of last year for similar complaints. At that time, an echocardiogram revealed an EF of 45-50% with mild global hypokinesia and she was scheduled to undergo a Lexiscan stress test, however this was not performed. REVIEW OF SYSTEMS Negative except for what is mentioned in the HPI. HOME MEDICATION 1. Lipitor 40 mg p.o. daily 2. Bumex 2 mg p.o. daily 3. Coreg 25 mg p.o. b.i.d. 4. Clonidine 0.1 mg p.o. b.i.d. 5. Lisinopril 20 mg p.o. daily 6. Warfarin 6 mg p.o. daily PAST MEDICAL HISTORY 1. Diabetes 2. Heart failure 3. Hypertension 4. Hyperlipidemia 5. Obesity 6. Atrial fibrillation 7. Peripheral vascular disease 8. Osteoarthritis 9. Obesity SOCIAL HISTORY She is a former smoker. Denies alcohol or illicit drug use. FAMILY HISTORY Noncontributory PHYSICAL EXAM VITAL SIGNS: Temperature 97.8, pulse 53, blood pressure 169/78, respiratory rate of 20 and O2 sat is 99% on high flow nasal cannula. LABORATORY DATA Hemoglobin is 11, hematocrit 36, INR 3.1, BUN 42, creatinine 1.2. Troponins are 0.06 x2 and BNP is 280. EKG: Shows a normal sinus rhythm, however, the first EKG shows sinus tachycardia with ST depressions in the lateral lead. Echocardiogram performed this morning is still pending results. Chest x-ray showed bilateral pulmonary infiltrates. ASSESSMENT/PLAN 51-year-old female with several cardiac risk factors presenting with chest pain , shortness of breath and uncontrolled hypertension admitted with respiratory failure and now extubated being consulted for further evaluation of coronary artery disease and heart failure. She remains fairly hemodynamically stable. She is getting antibiotics for the infiltrate/pneumonia seen on the x-ray. She does not have any cardiac complaints at the moment and her EKG is back to baseline and troponins have been negative x2. She has had this similar episode in the past without successful evaluation of coronary artery disease and I think at this point, it would be reasonable to offer her noninvasive tests to further re-stratify coronary artery disease, if its positive we can do coronary angiogram, however, with an INR of 3.1 so OAC must be held. In conclusion, start baby aspirin, optimize blood pressure medication with Procardia XL 30 mg p.o. daily. We will wait echo report and schedule for a myocardial perfusion test. RECOMMENDATIONS 1. Start aspirin 2. Start Procardia XL 30 mg p.o. daily. 3. Scheduled for an MPI myocardial perfusion stress test 4. Followup the echocardiogram results. Thank you for the opportunity to take part in the care of this patient. Further therapy to be determined. We will follow with you. MD KARLEY Schroeder/LORENZO /12:13 PM /12:39 PM BALA
--- NOTE | 2016-09-04 15:54 | ECHLIM ---
Study Study Date:09/04/2016 STUDY CONCLUSIONS SUMMARY LEFT VENTRICLE: The cavity size was normal. Wall thickness was normal. Systolic function was mildly reduced. The estimated ejection fraction was in the range of 45% to 50%. Wall motion was normal; there were no regional wall motion abnormalities. If LV function is below 40, please consider prescribing an ACEI or ARB or document rationale for non-use. PROCEDURE DATA STUDY STATUS: Elective. Procedure: Transthoracic echocardiography. Image quality was good. Scanning was performed from the parasternal, apical, and subcostal acoustic windows. Study completion: The patient tolerated the procedure well. Transthoracic echocardiography. M-mode, complete 2D, complete spectral Doppler, and color Doppler. Height: Height: 61in. Weight: Weight: 285.4lb. Body mass index: BMI: 54kg/m^2. Body surface area: BSA: 2.2m^2. Patient status: Inpatient. CARDIAC ANATOMY LEFT VENTRICLE: The cavity size was normal. Wall thickness was normal. Systolic function was mildly reduced. The estimated ejection fraction was in the range of 45% to 50%. Wall motion was normal; there were no regional wall motion abnormalities. AORTIC VALVE: Trileaflet; normal thickness leaflets. Doppler: Transvalvular velocity was within the normal range. There was no stenosis. No regurgitation. AORTA: Aortic root: The aortic root was normal in size. MITRAL VALVE: Structurally normal valve. Doppler: Transvalvular velocity was within the normal range. There was no evidence for stenosis. No regurgitation. LEFT ATRIUM: The atrium was normal in size. RIGHT VENTRICLE: The cavity size was normal. Wall thickness was normal. PULMONIC VALVE: Doppler: Transvalvular velocity was within the normal range. There was no evidence for stenosis. No regurgitation. TRICUSPID VALVE: Structurally normal valve. Doppler: Transvalvular velocity was within the normal range. Trace to mild regurgitation. PULMONARY ARTERY: The main pulmonary artery was normal-sized. Systolic pressure was within the normal range. RIGHT ATRIUM: The atrium was normal in size. PERICARDIUM: There was no pericardial effusion. SYSTEMIC VEINS: Inferior vena cava: The vessel was normal in size. Patient weight: 285.4lb _Ejection fraction:_ 65-75% _Fractional shortening:_ 32% up to 5Kg 5-11.5Kg 11.6-22.9Kg 23-45Kg 45-57Kg Aortic Root 7-13 <17 13-22 17-27 17-27 LA diam 6-13 <23 24-38 33-47 37-40 RVID 10-17 7-15 7-15 7-18 8-17 LVIDd 12-22 <32 24-38 33-47 37-40 LVPW 2-4 3-6 5-7 6-8 7-8 IVS 2-4 3-6 5-7 6-8 7-8 BASIC MEASUREMENTS ADULT NORMAL Left ventricle LV internal dimension, ED, chordal level, 47.5 mm 43-52 PLAX LV internal dimension, ES, chordal level, *38.9 mm 23-38 PLAX Fractional shortening, chordal level, PLAX *18 % >29 LV posterior wall thickness, ED 7.22 mm IVS/LVPW ratio, ED 1.22 <1.3 Ventricular septum Septal thickness, ED 8.84 mm LEGEND: Mean values are shown as u=mean value. Asterisk (*) meeks values outside specified normal range. Prepared and signed by Romel Gillette [id number]
[2016-09-04] MEDS ORDERED: REGADENOSON INJ 0.4 MG/5 ML SYR ONE (15:57)
--- NOTE | 2016-09-04 17:09 | RADRPT ---
EXAM DATE/TIME: 09/04/2016 14:52 [facility] COMPARISON: No previous studies available for comparison. INDICATIONS : Substernal chest pain with dyspnea. Coronary artery disease. Congestive heart failure. DOSE: 25.8 mCi Tc99m Myoview at stress. 8.1 mCi Tc99m Myoview at rest. 0.4 mg Lexiscan STRESS SYMPTOMS: Shortness of breath. EJECTION FRACTION: 52% MEDICAL HISTORY : Hypertension. Peripheral vascular disease. Diabetes mellitus type 1. Atrial fibrillation. SURGICAL HISTORY : Tonsillectomy. Tubal ligation. Mastectomy. ENCOUNTER: Initial ACUITY: 1 day PAIN SCALE: 5/10 LOCATION: Substernal chest TECHNIQUE: The patient underwent pharmacologic stress with infusion of prescribed dose. Continuous ECG tracing was monitored during stress. Gated SPECT imaging was performed after stress and conventional SPECT i maging was performed at rest. The examination was performed on a SPECT/CT scanner, both attenuation and non-corrected datasets were reviewed. FINDINGS: DISTRIBUTION: The maximum perfused segment at stress is in the lateral wall. PERFUSION STUDY: The pattern of perfusion at stress is difficult to assess PA and today's extraneous activity in the g astric region. I suspect there is no significant reversibility. GATED STUDY: There is intact wall motion and thickening without hypokinetic or dyskinetic segments. CONCLUSION: 1. Examination difficult to interpret due to motion and excess extraneous activity in the gastric reg ion. I suspect there is no significant reversibility. Wall motion is within normal limits with ejecti on fraction 52%. RISK CATEGORY: Low (<1% Annual Mortality Rate) Travis Bellamy MD on September 04, 2016 at 16:52 Board Certified Radiologist. This report was verified electronically.
[2016-09-04] MEDS: ATORVASTATIN 40 MG TAB PO SCH (19:41)
[2016-09-05] VITALS (14 sets, daily range): BP systolic 143–177; BP diastolic 66–77; PULSE 57–71; RESP 18–23; TEMP 97.9–98.3; O2SAT 95–96
[2016-09-05] MEDS: RESP: ALBUTEROL 2.5 MG/IPRATROPIUM 0.5 MG NEB (SCH) INH ×4 (03:13→20:59)
[2016-09-05] MEDS: CHLORHEXIDINE GLUCONATE 2 % 1 PACK (2 CLOTHS) TOP SCH (03:33)
[2016-09-05 04:01] LABS: AUTOMATED NEUTROPHIL # 9.1 TH/MM3 (1.8-7.7); BASOPHIL % 0.3 % (0.0-2.0); HEMATOCRIT 32.3 % (35.0-46.0); LYMPH % 17.2 % (9.0-44.0); MEAN CELL VOLUME 72.8 FL (80.0-100.0); MEAN CORPUSCULAR HEMOGLOBIN 23.1 PG (27.0-34.0); MEAN CORPUSCULAR HGB CONC 31.7 % (32.0-36.0); MONO % 5.2 % (0.0-8.0); NEUT % 77.3 % (16.0-70.0); PLATELET COUNT 248 TH/MM3 (150-450); RED BLOOD COUNT 4.43 MIL/MM3 (4.00-5.30); RED CELL DISTRIBUTION WIDTH 15.6 % (11.6-17.2); WHITE BLOOD COUNT 11.7 TH/MM3 (4.0-11.0)
[2016-09-05 04:15] LABS: HEMO FLAGS AUTO DIFF
--- NOTE | 2016-09-05 04:29 | RADRPT ---
EXAM DATE/TIME: 09/05/2016 03:26 [facility] COMPARISON: CHEST SINGLE AP, September 04, 2016, 3:06. INDICATIONS : Shortness of breath, possible pulmonary disease. MEDICAL HISTORY : Congestive heart failure. Chronic obstructive pulmonary disease. Diabetes mellitus type II. SURGICAL HISTORY : Tonsillectomy. Tubal ligation. Mastectomy ENCOUNTER: Subsequent ACUITY: 3 days PAIN SCORE: 7/10 LOCATION: Bilateral chest FINDINGS: A single portable frontal view of the chest shows interval extubation and removal of the nasogastric tube. Considerable improvement in the pulmonary infiltrates. Heart remains at the upper limits of nor mal in terms of size. CONCLUSION: Improving bilateral pulmonary infiltrates. Manish Ortiz Jr., MD on September 05, 2016 at 4:27 Board Certified Radiologist. This report was verified electronically.
[2016-09-05 04:35] LABS: ALT (GPT) 24 U/L (10-53); ANION GAP 9 MEQ/L (5-15); AST (GOT) 28 U/L (15-37); BICARBONATE 26.3 MEQ/L (21.0-32.0); BLOOD UREA NITROGEN 41 MG/DL (7-18); CHLORIDE 109 MEQ/L (98-107); GLOMERULAR FILTRATION RATE 47 ML/MIN (>89); POTASSIUM 4.2 MEQ/L (3.5-5.1); SODIUM (NA) 144 MEQ/L (136-145)
[2016-09-05 04:37] LABS: ALKALINE PHOSPHATASE 86 U/L (45-117); TOTAL BILIRUBIN ADULT 0.3 MG/DL (0.2-1.0)
[2016-09-05 05:53] LABS: PLATELET ESTIMATE SMEAR NORMAL (NORMAL); PLATELET MORPHOLOGY NORMAL (NORMAL); SCAN/DIFF AUTO DIFF CONFIRMED
[2016-09-05] MEDS: CHLORHEXIDINE 0.12% (ORAL KIT) 15 ML CUP MT SCH ×2 (08:00→20:00)
[2016-09-05] MEDS: cloNIDine HCL 0.1 MG TAB PO SCH ×2 (08:42→20:33)
[2016-09-05] MEDS: ASPIRIN EC 81 MG TABEC PO SCH (08:43)
[2016-09-05] MEDS: BUMETANIDE INJ 1 MG/4 ML VIAL IV PUSH SCH ×2 (08:43→20:33)
[2016-09-05] MEDS: GABAPENTIN 300 MG CAP PO SCH ×2 (08:44→20:32)
[2016-09-05] MEDS: PANTOPRAZOLE SODIUM 40 MG VIAL IV SCH (08:44)
[2016-09-05] MEDS: CARVEDILOL 12.5 MG TAB PO SCH ×2 (08:44→20:33)
[2016-09-05] MEDS: LISINOPRIL 20 MG TAB TUBE SCH ×2 (08:44→20:33)
[2016-09-05] MEDS: SODIUM CHLORIDE 0.9% FLUSH 5 ML FLUSH IV FLUSH SCH ×2 (08:45→20:35)
[2016-09-05] MEDS: CHOLECALCIFEROL (VIT D3) 1000 UNIT TAB PO SCH (08:46)
[2016-09-05] MEDS ORDERED: NIFEdipine 30 MG SUSTAINED RELEASE TAB PO SCH (09:00)
--- NOTE | 2016-09-05 09:14 | PD.CARD.PN ---
Subjective Subjective Remarks no complaints no overnight events negative MPI Objective Medications Current Medications Medications (Trade) Dose Ordered Sig/Juliane Route Start Time Stop Time Status Last Admin (fentaNYL INJ) 50 mcg Q1H PRN IV PUSH 09/03/16 19:00 09/05/16 05:52 Fentanyl Citrate 100 mcg 100 mcg Q1H PRN IV PUSH 09/03/16 19:00 09/04/16 17:06 (Nitroglycerin-Dextrose Inj) 250 ml @ 0 mls/hr TITRATE IV 09/03/16 20:00 (NS Flush) 2 ml UNSCH PRN IV FLUSH 09/03/16 20:00 (NS Flush) 2 ml BID IV FLUSH 09/03/16 21:00 09/05/16 08:45 (Tylenol) 650 mg Q6H PRN TUBE 09/03/16 20:00 (Protonix Inj) 40 mg DAILY IV 09/04/16 09:00 09/05/16 08:44 (Zofran Inj) 4 mg Q6H PRN IV 09/03/16 20:00 Miscellaneous Information 1 [id number] XX 09/03/16 20:00 (Chlorhexidine 2% Cloth) 3 pack Taper DAILY@04 TOP 09/04/16 04:00 08/31/17 03:59 09/05/16 03:33 Chlorhexidine Gluconate 3 pack 3 pack UNSCH PRN TOP 09/03/16 20:00 Midazolam HCl 100 ml @ 0 mls/hr TITRATE IV 09/03/16 20:00 Fentanyl Citrate 250 ml @ 0 mls/hr TITRATE IV 09/03/16 20:00 09/04/16 04:53 Potassium Chloride 100 ml @ 50 mls/hr Q2H PRN IV 09/03/16 20:15 (KCl 20 Meq Premix Inj) 100 ml @ 50 mls/hr Q2H PRN IV 09/03/16 20:15 Potassium Chloride 40 meq 40 meq UNSCH PRN PO/TUBE 09/03/16 20:15 Potassium Chloride 100 ml @ 25 mls/hr UNSCH PRN IV 09/03/16 20:15 Potassium Chloride 100 ml @ 50 mls/hr Q2H PRN IV 09/03/16 20:15 (Magnesium Sulfate Inj/NS Inj) 100 ml @ 50 mls/hr UNSCH PRN IV 09/03/16 20:15 Magnesium Oxide 800 mg 800 mg UNSCH PRN PO 09/03/16 20:15 (Magnesium Sulfate Inj/NS Inj) 100 ml @ 50 mls/hr UNSCH PRN IV 09/03/16 20:15 Potassium Phosphate 2000 mg 2,000 mg Q4H PRN PO 09/03/16 20:15 (Sodium Phosphate Inj/NS 250 ml Inj) 250 ml @ 42 mls/hr UNSCH PRN IV 09/03/16 20:15 (KCl 40 Meq/30 ml Liq) 40 meq UNSCH PRN PO/TUBE 09/03/16 20:15 Potassium Phosphate 2000 mg 2,000 mg UNSCH PRN PO/TUBE 09/03/16 20:15 (Potassium Phosphate Inj/NS 250 ml Inj) 260 ml @ 42 mls/hr UNSCH PRN IV 09/03/16 20:15 (Peridex 0.12% Liq) 15 ml BID@08,20 MT 09/04/16 08:00 Bumetanide 2 mg 2 mg Q12H IV PUSH 09/03/16 21:00 09/05/16 08:43 (Levaquin 750 Mg Premix Inj) 150 ml @ 100 mls/hr Q48H IV 09/04/16 04:00 09/04/16 04:49 (Lipitor) 40 mg HS PO 09/04/16 21:00 09/04/16 19:41 (Coreg) 25 mg BID PO 09/04/16 09:00 09/05/16 08:44 (Vitamin D3) 1,000 units DAILY PO 09/04/16 09:00 09/05/16 08:46 (Neurontin) 600 mg BID PO 09/04/16 09:00 09/05/16 08:44 (Prinivil) 20 mg Q12HR TUBE 09/04/16 09:00 09/05/16 08:44 (Ativan Inj) 2 mg Q2H PRN IV 09/04/16 11:00 09/04/16 17:05 (Catapres) 0.1 mg BID PO 09/04/16 09:00 09/05/16 08:42 (Trandate Inj) 20 mg Q2H PRN IV PUSH 09/04/16 08:45 09/04/16 09:38 (Ecotrin Ec) 81 mg DAILY PO 09/05/16 09:00 09/05/16 08:43 (Procardia Xl) 30 mg DAILY PO 09/05/16 09:00 09/05/16 08:43 Vital Signs / I&O Vital Signs Date Time Temp Pulse Resp B/P Pulse Ox O2 Delivery O2 Flow Rate FiO2 09/05/16 08:15 96 Nasal Cannula 2.00 09/05/16 06:00 62 09/05/16 04:33 95 Nasal Cannula 2.00 09/05/16 04:00 97.9 68 21 177/70 96 09/05/16 04:00 68 09/05/16 02:00 65 09/05/16 00:00 98.0 71 23 154/66 95 09/05/16 00:00 71 09/04/16 22:00 72 09/04/16 21:10 95 Nasal Cannula 4.00 09/04/16 20:00 76 09/04/16 20:00 91 Nasal Cannula 4.00 09/04/16 19:54 97.5 75 20 153/66 94 09/04/16 18:00 77 09/04/16 16:00 98.3 75 18 189/78 94 09/04/16 16:00 66 09/04/16 14:00 72 09/04/16 12:00 66 09/04/16 12:00 98.7 72 18 154/66 97 09/04/16 10:00 66 09/04/16 09:27 96 Nasal Cannula 6.00 09/04/16 09:19 95 Nasal Cannula 3 I/O 09/04/16 09/04/16 09/04/16 09/05/16 09/05/16 09/05/16 07:00 15:00 23:00 07:00 15:00 23:00 Intake Total 441 ml 198 ml 60 ml 60 ml Output Total 500 ml 1500 ml 650 ml 1400 ml Balance -59 ml -1302 ml -590 ml -1340 ml Intake Oral 0 ml 60 ml 60 ml IV Total 441 ml 198 ml Output Urine Total 500 ml 1500 ml 650 ml 1400 ml # Bowel Movements 1 0 0 0 Physical Exam GENERAL: Well-nourished, well-developed patient. SKIN: Warm and dry. HEAD: Normocephalic. EYES: No scleral icterus. No injection or drainage. NECK: Supple, trachea midline. No JVD or lymphadenopathy. CARDIOVASCULAR: Regular rate and rhythm without murmurs, gallops, or rubs. RESPIRATORY: Breath sounds equal bilaterally. No accessory muscle use. GASTROINTESTINAL: Abdomen soft, non-tender, nondistended. EXTREMITIES: No cyanosis, or edema. NEUROLOGICAL: Awake, alert, and oriented x 3. Non-focal. Laboratory Laboratory Tests Test 09/04/16 09/05/16 12:03 03:44 Troponin I 0.03 NG/ML White Blood Count 11.7 TH/MM3 Red Blood Count 4.43 MIL/MM3 Hemoglobin 10.2 GM/DL Hematocrit 32.3 % Mean Corpuscular Volume 72.8 FL Mean Corpuscular Hemoglobin 23.1 PG Mean Corpuscular Hemoglobin 31.7 % Concent Red Cell Distribution Width 15.6 % Platelet Count 248 TH/MM3 Mean Platelet Volume 9.8 FL Neutrophils (%) (Auto) 77.3 % Lymphocytes (%) (Auto) 17.2 % Monocytes (%) (Auto) 5.2 % Eosinophils (%) (Auto) 0.0 % Basophils (%) (Auto) 0.3 % Neutrophils # (Auto) 9.1 TH/MM3 Lymphocytes # (Auto) 2.0 TH/MM3 Monocytes # (Auto) 0.6 TH/MM3 Eosinophils # (Auto) 0.0 TH/MM3 Basophils # (Auto) 0.0 TH/MM3 CBC Comment AUTO DIFF Differential Comment AUTO DIFF CONFIRMED Platelet Estimate NORMAL Platelet Morphology Comment NORMAL Red Cell Morphology Comment NORMAL Sodium Level 144 MEQ/L Potassium Level 4.2 MEQ/L Chloride Level 109 MEQ/L Carbon Dioxide Level 26.3 MEQ/L Anion Gap 9 MEQ/L Blood Urea Nitrogen 41 MG/DL Creatinine 1.41 MG/DL Estimat Glomerular Filtration 47 ML/MIN Rate Random Glucose 307 MG/DL Calcium Level 9.1 MG/DL Total Bilirubin 0.3 MG/DL Aspartate Amino Transf 28 U/L (AST/SGOT) Alanine Aminotransferase 24 U/L (ALT/SGPT) Alkaline Phosphatase 86 U/L Total Protein 6.4 GM/DL Albumin 2.4 GM/DL Assessment and Plan Problem List: (1) Hypertension Assessment and Plan: Echo unchanged from previous MPI negative for ischemia Get Renal Ultrasound Cont optimization of BP medications Wean to d/c clonidine and optimize Procardia and ACEi Cont OAC (2) CHF exacerbation (3) Chest pain (4) Anticoagulated on Coumadin (5) Diabetes mellitus (6) Acute hypoxemic respiratory failure (7) Chronic diastolic congestive heart failure (8) Obesity (9) Diabetes Problem Qualifiers (1) Hypertension: Qualified Code: I10 - Essential hypertension (2) Diabetes mellitus: Pollo Estrada MD Sep 05, 2016 09:14
--- NOTE | 2016-09-05 11:02 | HHI.PR ---
Subjective Remarks Patient seen in follow-up for respiratory failure, uncontrolled hypertension She reports that her breathing is much better. Currently on a nasal cannula. Mild cough. No chest pressure, nausea, or vomiting. Chest x-ray with improving bilateral pulmonary infiltrates. Objective Vitals Vital Signs Date Time Temp Pulse Resp B/P Pulse Ox O2 Delivery O2 Flow Rate FiO2 09/05/16 09:42 18 09/05/16 08:15 96 Nasal Cannula 2.00 09/05/16 08:00 Nasal Cannula 09/05/16 08:00 68 09/05/16 06:00 62 09/05/16 04:33 95 Nasal Cannula 2.00 09/05/16 04:00 97.9 68 21 177/70 96 09/05/16 04:00 68 09/05/16 02:00 65 09/05/16 00:00 98.0 71 23 154/66 95 09/05/16 00:00 71 09/04/16 22:00 72 09/04/16 21:10 95 Nasal Cannula 4.00 09/04/16 20:00 76 09/04/16 20:00 91 Nasal Cannula 4.00 09/04/16 19:54 97.5 75 20 153/66 94 09/04/16 18:00 77 09/04/16 16:00 98.3 75 18 189/78 94 09/04/16 16:00 66 09/04/16 14:00 72 09/04/16 12:00 66 09/04/16 12:00 98.7 72 18 154/66 97 I/O 09/04/16 09/04/16 09/04/16 09/05/16 09/05/16 09/05/16 06:59 14:59 22:59 06:59 14:59 22:59 Intake Total 441 ml 198 ml 60 ml 60 ml Output Total 500 ml 1500 ml 650 ml 1400 ml Balance -59 ml -1302 ml -590 ml -1340 ml Intake Oral 0 ml 60 ml 60 ml IV Total 441 ml 198 ml Output Urine Total 500 ml 1500 ml 650 ml 1400 ml # Bowel Movements 1 0 0 0 Result Diagram: 09/05/16 0344 09/05/16 0344 Imaging Last Impressions Chest X-Ray 09/05/16 0600 Signed Impressions: Service Date/Time: September 03:26 - CONCLUSION: Improving bilateral pulmonary infiltrates. Manish Ortiz Jr., MD Myocardial Perfusion Scan Nuc Med 09/04/16 0000 Signed Impressions: Service Date/Time: Sunday, September 04, 2016 14:52 - CONCLUSION: 1. Examination difficult to interpret due to motion and excess extraneous activity in the gastric region. I suspect there is no significant reversibility. Wall motion is within normal limits with ejection fraction 52%%. RISK CATEGORY: Low (<1%% Annual Mortality Rate) Travis Bellamy MD Objective Remarks GENERAL: Obese female in no apparent distress. CARDIOVASCULAR: Normal rate and regular rhythm without murmurs, gallops, or rubs. RESPIRATORY: Good respiratory efforts. There are bilateral rhonchi, more pronounced at the bases. No wheezing. GASTROINTESTINAL: Abdomen soft, non-tender, non-distended. Normal active bowel sounds MUSCULOSKELETAL: 2+ bilateral lower extremity edema. Status post left toe amputation. NEURO: Alert & Oriented x4 to person, place, time, situation. Moves all ext x4 PSYCH: Appropriate mood and affect. A/P Assessment and Plan 50-year-old female with: Acute hypoxemic respiratory failure: Likely secondary to combination of pulmonary edema from acute on chronic exacerbation of systolic heart failure. Probable atypical pneumonia contributing. Probable obesity related hypoventilation. - Patient is improving. Currently on nasal cannula. - Continue diuresis with Bumex 2 mg IV every 12 hours. 2-D echocardiogram unchanged from prior. - Continue breathing treatments - Continue treatment for probable pneumonia with Levaquin. Uncontrolled hypertension, atrial fibrillation on Coumadin, CHF. Echo from 07/23 EF 45-50% with diffuse hypokinesis. MPI neg, EF unchanged. - Cardiology following and adjusting antihypertensive. Currently on lisinopril , Coreg, and clonidine. Procardia added. Wean off clonidine as tolerated. - Renal ultrasound per cardiology. - Resume Coumadin. Peripheral neuropathy Continue gabapentin 600 mg per tube 3 times a day. Hold Robaxin 500 mg per tube 3 times a day for now CKD stage III [place] in place. Monitor intake and output. Monitor electrolytes Abnormal UA, Leukocytosis, lymph predominant Received zosyn and vanc in ED 09/03. - On Levaquin as above for presumed pneumonia. Follow urine cultures. Diabetes mellitus Hold glipizide 10 po bid. Medium dose Regular insulin sliding scale with bedside glucose q6 hours. PROPH: INR is therapeutic which will provide DVT prophylaxis. SCDs. Protonix 40 mg IV daily for stress ulcer prophylaxis and history of GERD. Discharge Planning OK to transfer to [facility] to continue to adjust antihypertensives and treat CHF. Samantha Noel MD Sep 05, 2016 11:02
[2016-09-05 13:45] LABS: INTERNATIONAL NORMALIZED RATIO 3.6 RATIO; PROTHROMBIN TIME - PATIENT 41.6 SEC (9.8-11.6)
[2016-09-05] MEDS: LABETALOL HCL 100 MG/20 ML VIAL IV PUSH PRN ×2 (14:00→17:26)
[2016-09-05] MEDS ORDERED: WARFARIN SOD 6 MG TAB PO SCH (16:00)
[2016-09-05] MEDS ORDERED: DEXTROSE 50% IN WATER 50 ML VIAL(D50) IV PUSH PRN (18:30)
[2016-09-05] MEDS ORDERED: GLUCAGON 1 MG/ML VIAL OTHER PRN (18:30)
[2016-09-05] MEDS: ATORVASTATIN 40 MG TAB PO SCH (20:33)
[2016-09-05] MEDS: INSULIN ASPART SUPPLEMENTAL SCALE SQ SCH (21:32)
[2016-09-06] VITALS (24 sets, daily range): BP systolic 142–166; BP diastolic 59–73; PULSE 55–71; RESP 18–21; TEMP 98.1–98.7; O2SAT 94–97
[2016-09-06] MEDS: LEVOFLOXACIN 750 MG PREMIX INJ 150 ML IV SCH (02:15)
[2016-09-06] MEDS: LABETALOL HCL 100 MG/20 ML VIAL IV PUSH PRN (03:13)
[2016-09-06] MEDS: CHLORHEXIDINE GLUCONATE 2 % 1 PACK (2 CLOTHS) TOP SCH (04:00)
[2016-09-06] MEDS: RESP: ALBUTEROL 2.5 MG/IPRATROPIUM 0.5 MG NEB (SCH) INH ×3 (05:26→15:38)
[2016-09-06] MEDS: INSULIN ASPART SUPPLEMENTAL SCALE SQ SCH ×4 (07:00→21:02)
[2016-09-06 07:11] LABS: HEMATOCRIT 34.8 % (35.0-46.0); INTERNATIONAL NORMALIZED RATIO 3.6 RATIO; MEAN CELL VOLUME 73.9 FL (80.0-100.0); MEAN CORPUSCULAR HEMOGLOBIN 23.3 PG (27.0-34.0); MEAN CORPUSCULAR HGB CONC 31.6 % (32.0-36.0); PLATELET COUNT 239 TH/MM3 (150-450); PROTHROMBIN TIME - PATIENT 42.2 SEC (9.8-11.6); RED CELL DISTRIBUTION WIDTH 15.4 % (11.6-17.2); WHITE BLOOD COUNT 9.6 TH/MM3 (4.0-11.0)
[2016-09-06 07:18] LABS: BICARBONATE 27.7 MEQ/L (21.0-32.0); POTASSIUM 4.2 MEQ/L (3.5-5.1)
[2016-09-06] MEDS: CHLORHEXIDINE 0.12% (ORAL KIT) 15 ML CUP MT SCH ×2 (08:00→20:00)
--- NOTE | 2016-09-06 09:08 | PD.CARD.PN ---
Subjective Subjective Remarks no complaints no overnight events Objective Medications Current Medications Medications (Trade) Dose Ordered Sig/Juliane Route Start Time Stop Time Status Last Admin (fentaNYL INJ) 50 mcg Q1H PRN IV PUSH 09/03/16 19:00 09/06/16 06:51 Fentanyl Citrate 100 mcg 100 mcg Q1H PRN IV PUSH 09/03/16 19:00 09/06/16 03:27 (Nitroglycerin-Dextrose Inj) 250 ml @ 0 mls/hr TITRATE IV 09/03/16 20:00 (NS Flush) 2 ml UNSCH PRN IV FLUSH 09/03/16 20:00 (NS Flush) 2 ml BID IV FLUSH 09/03/16 21:00 09/05/16 20:35 (Tylenol) 650 mg Q6H PRN TUBE 09/03/16 20:00 (Protonix Inj) 40 mg DAILY IV 09/04/16 09:00 09/05/16 08:44 (Zofran Inj) 4 mg Q6H PRN IV 09/03/16 20:00 Miscellaneous Information 1 Q361D XX 09/03/16 20:00 (Chlorhexidine 2% Cloth) 3 pack Taper DAILY@04 TOP 09/04/16 04:00 08/31/17 03:59 09/05/16 03:33 Chlorhexidine Gluconate 3 pack 3 pack UNSCH PRN TOP 09/03/16 20:00 Midazolam HCl 100 ml @ 0 mls/hr TITRATE IV 09/03/16 20:00 Fentanyl Citrate 250 ml @ 0 mls/hr TITRATE IV 09/03/16 20:00 09/04/16 04:53 Potassium Chloride 100 ml @ 50 mls/hr Q2H PRN IV 09/03/16 20:15 (KCl 20 Meq Premix Inj) 100 ml @ 50 mls/hr Q2H PRN IV 09/03/16 20:15 Potassium Chloride 40 meq 40 meq UNSCH PRN PO/TUBE 09/03/16 20:15 Potassium Chloride 100 ml @ 25 mls/hr UNSCH PRN IV 09/03/16 20:15 Potassium Chloride 100 ml @ 50 mls/hr Q2H PRN IV 09/03/16 20:15 (Magnesium Sulfate Inj/NS Inj) 100 ml @ 50 mls/hr UNSCH PRN IV 09/03/16 20:15 Magnesium Oxide 800 mg 800 mg UNSCH PRN PO 09/03/16 20:15 (Magnesium Sulfate Inj/NS Inj) 100 ml @ 50 mls/hr UNSCH PRN IV 09/03/16 20:15 Potassium Phosphate 2000 mg 2,000 mg Q4H PRN PO 09/03/16 20:15 (Sodium Phosphate Inj/NS 250 ml Inj) 250 ml @ 42 mls/hr UNSCH PRN IV 09/03/16 20:15 (KCl 40 Meq/30 ml Liq) 40 meq UNSCH PRN PO/TUBE 09/03/16 20:15 Potassium Phosphate 2000 mg 2,000 mg UNSCH PRN PO/TUBE 09/03/16 20:15 (Potassium Phosphate Inj/NS 250 ml Inj) 260 ml @ 42 mls/hr UNSCH PRN IV 09/03/16 20:15 (Peridex 0.12% Liq) 15 ml BID@08,20 MT 09/04/16 08:00 Bumetanide 2 mg 2 mg Q12H IV PUSH 09/03/16 21:00 09/05/16 20:33 (Levaquin 750 Mg Premix Inj) 150 ml @ 100 mls/hr Q48H IV 09/04/16 04:00 09/06/16 02:15 (Lipitor) 40 mg HS PO 09/04/16 21:00 09/05/16 20:33 (Coreg) 25 mg BID PO 09/04/16 09:00 09/05/16 20:33 (Vitamin D3) 1,000 units DAILY PO 09/04/16 09:00 09/05/16 08:46 (Neurontin) 600 mg BID PO 09/04/16 09:00 09/05/16 20:32 (Prinivil) 20 mg Q12HR TUBE 09/04/16 09:00 09/05/16 20:33 (Ativan Inj) 2 mg Q2H PRN IV 09/04/16 11:00 09/04/16 17:05 (Catapres) 0.1 mg BID PO 09/04/16 09:00 09/05/16 20:33 (Trandate Inj) 20 mg Q2H PRN IV PUSH 09/04/16 08:45 09/06/16 03:13 (Ecotrin Ec) 81 mg DAILY PO 09/05/16 09:00 09/05/16 08:43 (Procardia Xl) 30 mg DAILY PO 09/05/16 09:00 09/05/16 08:43 (Coumadin) 6 mg DAILY@1600 PO 09/05/16 16:00 Hold (D50w (Vial) Inj) 25 ml UNSCH PRN IV PUSH 09/05/16 18:30 (Glucagon Inj) 1 mg UNSCH PRN OTHER 09/05/16 18:30 Vital Signs / I&O Vital Signs Date Time Temp Pulse Resp B/P Pulse Ox O2 Delivery O2 Flow Rate FiO2 09/06/16 08:00 98.7 62 18 158/64 94 09/06/16 07:00 94 Nasal Cannula 2.00 09/06/16 07:00 71 09/06/16 05:21 98.1 63 20 149/69 94 09/06/16 05:00 59 09/06/16 04:00 58 09/06/16 02:00 60 09/06/16 00:00 60 09/06/16 00:00 98.3 60 21 146/67 96 09/05/16 22:00 63 09/05/16 21:02 96 Nasal Cannula 2.00 09/05/16 20:00 57 09/05/16 20:00 98.1 57 21 143/67 96 09/05/16 19:00 95 Nasal Cannula 2.00 09/05/16 18:25 22 09/05/16 18:00 62 09/05/16 16:00 57 09/05/16 16:00 98.3 62 18 161/68 95 09/05/16 14:00 58 09/05/16 12:00 97.9 60 20 177/77 95 09/05/16 12:00 64 09/05/16 10:00 64 09/05/16 09:42 18 I/O 09/05/16 09/05/16 09/05/16 09/06/16 09/06/16 09/06/16 07:00 15:00 23:00 07:00 15:00 23:00 Intake Total 60 ml 10 ml 150 ml 240 ml Output Total 1400 ml 1000 ml 700 ml 100 ml Balance -1340 ml -990 ml -550 ml 140 ml Intake Oral 60 ml 240 ml IV Total 10 ml 150 ml Output Urine Total 1400 ml 1000 ml 700 ml 100 ml # Bowel Movements 0 Physical Exam GENERAL: Well-nourished, well-developed patient. SKIN: Warm and dry. HEAD: Normocephalic. EYES: No scleral icterus. No injection or drainage. NECK: Supple, trachea midline. No JVD or lymphadenopathy. CARDIOVASCULAR: Regular rate and rhythm without murmurs, gallops, or rubs. RESPIRATORY: Breath sounds equal bilaterally. No accessory muscle use. GASTROINTESTINAL: Abdomen soft, non-tender, nondistended. EXTREMITIES: No cyanosis, or edema. NEUROLOGICAL: Awake, alert, and oriented x 3. Non-focal. Laboratory Laboratory Tests Test 09/05/16 09/06/16 13:13 06:10 Prothrombin Time 41.6 SEC 42.2 SEC Prothromb Time International 3.6 RATIO 3.6 RATIO Ratio White Blood Count 9.6 TH/MM3 Red Blood Count 4.70 MIL/MM3 Hemoglobin 11.0 GM/DL Hematocrit 34.8 % Mean Corpuscular Volume 73.9 FL Mean Corpuscular Hemoglobin 23.3 PG Mean Corpuscular Hemoglobin 31.6 % Concent Red Cell Distribution Width 15.4 % Platelet Count 239 TH/MM3 Mean Platelet Volume 9.7 FL Sodium Level 138 MEQ/L Potassium Level 4.2 MEQ/L Chloride Level 102 MEQ/L Carbon Dioxide Level 27.7 MEQ/L Anion Gap 8 MEQ/L Blood Urea Nitrogen 35 MG/DL Creatinine 1.21 MG/DL Estimat Glomerular Filtration 56 ML/MIN Rate Random Glucose 338 MG/DL Calcium Level 8.9 MG/DL Assessment and Plan Problem List: (1) Hypertension Assessment and Plan: Increase Procardial XL 60mg PO daily (2) CHF exacerbation (3) Chest pain (4) Anticoagulated on Coumadin (5) Diabetes mellitus (6) Acute hypoxemic respiratory failure (7) Chronic diastolic congestive heart failure (8) Obesity (9) Diabetes Problem Qualifiers (1) Hypertension: Qualified Code: I10 - Essential hypertension (2) Diabetes mellitus: Pollo Estrada MD Sep 06, 2016 09:08
[2016-09-06] MEDS: CARVEDILOL 12.5 MG TAB PO SCH ×2 (09:30→20:27)
[2016-09-06] MEDS: LISINOPRIL 20 MG TAB TUBE SCH ×2 (09:30→20:27)
[2016-09-06] MEDS: CHOLECALCIFEROL (VIT D3) 1000 UNIT TAB PO SCH (09:30)
[2016-09-06] MEDS: SODIUM CHLORIDE 0.9% FLUSH 5 ML FLUSH IV FLUSH SCH (09:31)
[2016-09-06] MEDS: ASPIRIN EC 81 MG TABEC PO SCH (09:31)
[2016-09-06] MEDS: GABAPENTIN 300 MG CAP PO SCH ×2 (09:31→20:25)
[2016-09-06] MEDS: cloNIDine HCL 0.1 MG TAB PO SCH ×2 (09:31→20:26)
[2016-09-06] MEDS: BUMETANIDE INJ 1 MG/4 ML VIAL IV PUSH SCH (09:31)
[2016-09-06] MEDS: PANTOPRAZOLE SODIUM 40 MG VIAL IV SCH (09:32)
--- NOTE | 2016-09-06 15:52 | HHI.PR ---
Subjective Remarks Patient seen earlier this morning. She reports that she is feeling okay today. No chest pain or increased in shortness of breath. Has not been up with physical therapy yet. Objective Vitals Vital Signs Date Time Temp Pulse Resp B/P Pulse Ox O2 Delivery O2 Flow Rate FiO2 09/06/16 15:40 96 21 09/06/16 14:00 60 09/06/16 13:00 63 09/06/16 12:00 98.6 64 18 166/73 94 09/06/16 12:00 57 09/06/16 11:00 60 09/06/16 10:32 95 Nasal Cannula 2.00 09/06/16 10:00 65 09/06/16 09:00 59 09/06/16 08:00 64 09/06/16 08:00 98.7 62 18 158/64 94 09/06/16 07:00 94 Nasal Cannula 2.00 09/06/16 07:00 71 09/06/16 05:21 98.1 63 20 149/69 94 09/06/16 05:00 59 09/06/16 04:00 58 09/06/16 02:00 60 09/06/16 00:00 60 09/06/16 00:00 98.3 60 21 146/67 96 09/05/16 22:00 63 09/05/16 21:02 96 Nasal Cannula 2.00 09/05/16 20:00 57 09/05/16 20:00 98.1 57 21 143/67 96 09/05/16 19:00 95 Nasal Cannula 2.00 09/05/16 18:25 22 09/05/16 18:00 62 09/05/16 16:00 57 09/05/16 16:00 98.3 62 18 161/68 95 I/O 09/05/16 09/05/16 09/05/16 09/06/16 09/06/16 09/06/16 07:00 15:00 23:00 07:00 15:00 23:00 Intake Total 60 ml 10 ml 150 ml 240 ml Output Total 1400 ml 1000 ml 700 ml 100 ml Balance -1340 ml -990 ml -550 ml 140 ml Intake Oral 60 ml 240 ml IV Total 10 ml 150 ml Output Urine Total 1400 ml 1000 ml 700 ml 100 ml # Bowel Movements 0 Result Diagram: 09/06/16 0610 09/06/16609 Objective Remarks GENERAL: Obese female in no apparent distress. CARDIOVASCULAR: Normal rate and regular rhythm without murmurs, gallops, or rubs. RESPIRATORY: Good respiratory efforts. There are bilateral rhonchi, more pronounced at the bases. No wheezing. GASTROINTESTINAL: Abdomen soft, non-tender, non-distended. Normal active bowel sounds MUSCULOSKELETAL: 2+ bilateral lower extremity edema. Status post left toe amputation. NEURO: Alert & Oriented x4 to person, place, time, situation. Moves all ext x4 PSYCH: Appropriate mood and affect. A/P Assessment and Plan 50-year-old female with: Acute hypoxemic respiratory failure: Likely secondary to combination of pulmonary edema from acute on chronic exacerbation of systolic heart failure. Probable atypical pneumonia contributing. Probable obesity related hypoventilation. - Patient is improving. Currently on nasal cannula. -Change IV Bumex to oral. 2-D echocardiogram unchanged from prior. - Continue breathing treatments - Continue treatment for probable pneumonia with Levaquin. Uncontrolled hypertension, atrial fibrillation on Coumadin, CHF. Echo from 07/23 EF 45-50% with diffuse hypokinesis. MPI neg, EF unchanged. - Cardiology following and adjusting antihypertensive. Currently on lisinopril , Coreg, and clonidine. Procardia added. - Renal ultrasound per cardiology. - Resume Coumadin. Peripheral neuropathy Continue gabapentin 600 mg 3 times a day. Hold Robaxin 500 mg 3 times a day for now CKD stage III [place] in place. Monitor intake and output. Monitor electrolytes Pneumonia, Abnormal UA, Leukocytosis, lymph predominant Received zosyn and vanc in ED 09/03. - On Levaquin as above for presumed pneumonia. Urine culture negative. Diabetes mellitus Hold glipizide 10 po bid. low dose Regular insulin sliding scale with bedside glucose q6 hours. PROPH: INR is therapeutic on Coumadin. SCDs. Protonix 40 mg IV daily for stress ulcer prophylaxis and history of GERD. Discharge Planning Continue care in [facility]. STart transitioning to oral meds. DC planning probably to rehab. PT to [facility]. Samantha Noel MD Sep 06, 2016 15:52
[2016-09-06] MEDS: BUMETANIDE 1 MG TAB PO SCH (17:22)
[2016-09-06] MEDS: oxyCODONE/ACETAMINOPHEN 10 MG/325 MG TAB PO PRN (20:26)
[2016-09-06] MEDS: ATORVASTATIN 40 MG TAB PO SCH (20:27)
[2016-09-06] MEDS: INSULIN DETEMIR 100 UNITS/ML VIAL SQ SCH (21:01)
[2016-09-07] VITALS (27 sets, daily range): BP systolic 109–190; BP diastolic 48–83; PULSE 53–87; RESP 18; TEMP 98.2–98.7; O2SAT 92–98
[2016-09-07] MEDS: oxyCODONE/ACETAMINOPHEN 10 MG/325 MG TAB PO PRN ×5 (00:19→19:50)
[2016-09-07] MEDS: LABETALOL HCL 100 MG/20 ML VIAL IV PUSH PRN (05:24)
[2016-09-07] MEDS: INSULIN ASPART SUPPLEMENTAL SCALE SQ SCH ×4 (05:24→21:32)
[2016-09-07 06:28] LABS: HEMATOCRIT 37.3 % (35.0-46.0); MEAN CELL VOLUME 73.3 FL (80.0-100.0); MEAN CORPUSCULAR HEMOGLOBIN 23.2 PG (27.0-34.0); MEAN CORPUSCULAR HGB CONC 31.7 % (32.0-36.0); PLATELET COUNT 276 TH/MM3 (150-450); RED BLOOD COUNT 5.09 MIL/MM3 (4.00-5.30); RED CELL DISTRIBUTION WIDTH 15.3 % (11.6-17.2)
[2016-09-07 06:35] LABS: REVIEW FLAG FINAL
[2016-09-07 06:50] LABS: BICARBONATE 28.8 MEQ/L (21.0-32.0)
[2016-09-07 07:07] LABS: INTERNATIONAL NORMALIZED RATIO 2.3 RATIO; PROTHROMBIN TIME - PATIENT 25.9 SEC (9.8-11.6)
[2016-09-07] MEDS: CHLORHEXIDINE 0.12% (ORAL KIT) 15 ML CUP MT SCH ×2 (08:00→20:00)
[2016-09-07] MEDS: cloNIDine HCL 0.1 MG TAB PO SCH ×3 (09:00→20:54)
[2016-09-07] MEDS: INSULIN DETEMIR 100 UNITS/ML VIAL SQ SCH ×2 (09:37→19:51)
[2016-09-07] MEDS: BUMETANIDE 1 MG TAB PO SCH ×2 (09:38→16:56)
[2016-09-07] MEDS: GABAPENTIN 300 MG CAP PO SCH ×2 (09:38→19:50)
[2016-09-07] MEDS: ASPIRIN EC 81 MG TABEC PO SCH (09:39)
[2016-09-07] MEDS: NIFEdipine 60 MG SUSTAINED RELEASE TAB PO SCH (09:39)
[2016-09-07] MEDS: CHOLECALCIFEROL (VIT D3) 1000 UNIT TAB PO SCH (09:39)
[2016-09-07] MEDS: LISINOPRIL 20 MG TAB TUBE SCH ×3 (09:39→20:54)
[2016-09-07] MEDS: CARVEDILOL 12.5 MG TAB PO SCH ×2 (09:39→19:51)
[2016-09-07] MEDS ORDERED: LEVOFLOXACIN 750 MG TAB PO SCH (11:00)
--- NOTE | 2016-09-07 15:36 | HHI.PR ---
Subjective Remarks Patient reports that she is feeling better. Currently on room air. Generalized weakness. PT recommending rehabilitation. She is agreeable. Objective Vitals Vital Signs Date Time Temp Pulse Resp B/P Pulse Ox O2 Delivery O2 Flow Rate FiO2 09/07/16 14:00 56 09/07/16 13:00 65 09/07/16 12:00 57 09/07/16 11:00 57 09/07/16 11:00 98.4 59 18 119/50 98 09/07/16 10:00 56 09/07/16 09:00 57 09/07/16 08:00 58 09/07/16 07:00 59 09/07/16 07:00 98.3 59 18 114/60 95 09/07/16 07:00 95 Room Air 09/07/16 06:43 131/58 09/07/16 06:00 87 09/07/16 05:00 59 09/07/16 04:00 98.7 56 18 190/83 93 09/07/16 04:00 56 09/07/16 03:00 53 09/07/16 02:00 56 09/07/16 01:00 58 09/07/16 00:00 98.5 61 18 172/63 92 09/07/16 00:00 61 09/07/16 00:00 92 Room Air 09/06/16 23:00 55 09/06/16 22:00 59 09/06/16 21:00 62 09/06/16 20:00 94 Room Air 09/06/16 20:00 98.5 61 18 142/59 94 09/06/16 20:00 61 09/06/16 19:00 64 09/06/16 18:00 63 09/06/16 17:00 63 09/06/16 16:00 64 09/06/16 15:40 96 21 I/O 09/06/16 09/06/16 09/06/16 09/07/16 09/07/16 09/07/16 07:00 15:00 23:00 07:00 15:00 23:00 Intake Total 150 ml 240 ml 1200 ml 480 ml Output Total 700 ml 100 ml 2700 ml 1450 ml Balance -550 ml 140 ml -1500 ml -970 ml Intake Oral 240 ml 1200 ml 480 ml IV Total 150 ml Output Urine Total 700 ml 100 ml 2700 ml 1450 ml # Bowel Movements 0 Result Diagram: 09/07/16 0550 09/07/16 0549 Objective Remarks GENERAL: Obese female in no apparent distress. CARDIOVASCULAR: Normal rate and regular rhythm without murmurs, gallops, or rubs. RESPIRATORY: Good respiratory efforts. There are bilateral rhonchi, more pronounced at the bases. No wheezing. GASTROINTESTINAL: Abdomen soft, non-tender, non-distended. Normal active bowel sounds MUSCULOSKELETAL: 2+ bilateral lower extremity edema. Status post left toe amputation. NEURO: Alert & Oriented x4 to person, place, time, situation. Moves all ext x4 PSYCH: Appropriate mood and affect. A/P Assessment and Plan 50-year-old female with: Acute hypoxemic respiratory failure: Likely secondary to combination of pulmonary edema from acute on chronic exacerbation of systolic heart failure. Probable atypical pneumonia contributing. Probable obesity related hypoventilation. - Patient is improving. Wean down to room air -Continue oral Bumex. 2-D echocardiogram unchanged from prior. - Continue breathing treatments - Continue treatment for probable pneumonia with Levaquin. Resistant hypertension, atrial fibrillation on Coumadin, CHF. Echo from EF 45-50% with diffuse hypokinesis. MPI neg, EF unchanged. - Cardiology following and adjusting antihypertensive. Blood pressure improved today. Currently on lisinopril, Coreg, and clonidine. Procardia added. - Renal ultrasound per cardiology. - Resume Coumadin. Peripheral neuropathy Continue gabapentin 600 mg 3 times a day. Hold Robaxin 500 mg 3 times a day for now CKD stage III Remove [place]. Monitor intake and output. Monitor electrolytes Pneumonia, Abnormal UA, Leukocytosis, lymph predominant Received zosyn and vanc in ED 09/03. - On Levaquin as above for presumed pneumonia. Urine culture negative. Diabetes mellitus Hold glipizide 10 po bid. low dose Regular insulin sliding scale. Levemir 35 units twice a day. Add pre-meal insulin NovoLog 5 units 3 times a day pre- meals. PROPH: INR is therapeutic on Coumadin. SCDs. Protonix 40 mg IV daily for stress ulcer prophylaxis and history of GERD. Discharge Planning DC planning to rehab. Case management consulted. Continue to adjust antihypertensives and insulin. Remove [place]. Samantha Noel MD Sep 07, 2016 15:36
[2016-09-07] MEDS: INSULIN ASPART 1,000 UNITS/10 ML VIAL SQ SCH (16:56)
[2016-09-07] MEDS: WARFARIN SOD 6 MG TAB PO SCH (16:56)
[2016-09-07] MEDS: ATORVASTATIN 40 MG TAB PO SCH (19:50)
[2016-09-08] VITALS (28 sets, daily range): BP systolic 111–153; BP diastolic 54–67; PULSE 53–70; RESP 16–19; TEMP 96.4–98.7; O2SAT 94–97
[2016-09-08] MEDS: ONDANSETRON HCL 4 MG/2 ML VIAL IV PUSH PRN (00:09)
[2016-09-08] MEDS: oxyCODONE/ACETAMINOPHEN 10 MG/325 MG TAB PO PRN ×4 (06:11→21:26)
[2016-09-08 06:41] LABS: BICARBONATE 30.8 MEQ/L (21.0-32.0); POTASSIUM 4.2 MEQ/L (3.5-5.1)
[2016-09-08] MEDS: INSULIN ASPART 1,000 UNITS/10 ML VIAL SQ SCH ×3 (07:41→17:14)
[2016-09-08] MEDS: INSULIN ASPART SUPPLEMENTAL SCALE SQ SCH ×4 (07:41→21:22)
[2016-09-08] MEDS: CHLORHEXIDINE 0.12% (ORAL KIT) 15 ML CUP MT SCH ×2 (08:00→20:00)
[2016-09-08] MEDS: ASPIRIN EC 81 MG TABEC PO SCH (08:21)
[2016-09-08] MEDS: NIFEdipine 60 MG SUSTAINED RELEASE TAB PO SCH (08:21)
[2016-09-08] MEDS: BUMETANIDE 1 MG TAB PO SCH (08:21)
[2016-09-08] MEDS: GABAPENTIN 300 MG CAP PO SCH ×2 (08:21→21:26)
[2016-09-08] MEDS: CHOLECALCIFEROL (VIT D3) 1000 UNIT TAB PO SCH (08:22)
[2016-09-08] MEDS: LISINOPRIL 20 MG TAB TUBE SCH ×2 (08:22→21:26)
[2016-09-08] MEDS: CARVEDILOL 12.5 MG TAB PO SCH ×2 (08:23→21:26)
[2016-09-08] MEDS: cloNIDine HCL 0.1 MG TAB PO SCH (09:00)
[2016-09-08] MEDS: INSULIN DETEMIR 100 UNITS/ML VIAL SQ SCH ×2 (09:25→21:23)
--- NOTE | 2016-09-08 10:14 | HHI.PR ---
Subjective Remarks Patient complained of left sided lower rib pain. No shortness of breath or chest pressure. Renal function worse today. BP on the lower side, Clonidine held. BRIGID RN. Objective Vitals Vital Signs Date Time Temp Pulse Resp B/P Pulse Ox O2 Delivery O2 Flow Rate FiO2 09/08/16 07:45 98.7 58 19 114/64 94 09/08/16 07:00 94 Room Air 09/08/16 06:28 60 09/08/16 05:00 66 09/08/16 04:09 58 09/08/16 04:00 98.0 61 18 122/60 95 09/08/16 04:00 53 09/08/16 04:00 97 Room Air 09/08/16 03:00 57 09/08/16 02:00 59 09/08/16 01:00 62 09/08/16 00:00 97 Room Air 09/08/16 00:00 59 09/07/16 23:38 98.4 59 18 109/48 95 09/07/16 23:00 61 09/07/16 22:00 61 09/07/16 21:00 59 09/07/16 21:00 59 09/07/16 20:00 65 09/07/16 20:00 57 09/07/16 20:00 97 Room Air 09/07/16 19:53 98.6 61 18 110/58 96 09/07/16 19:00 65 09/07/16 18:00 60 09/07/16 18:00 141/74 09/07/16 17:00 64 09/07/16 16:00 54 09/07/16 15:00 98.2 62 18 96 09/07/16 15:00 62 09/07/16 14:00 56 09/07/16 13:00 65 09/07/16 12:00 57 09/07/16 11:00 57 09/07/16 11:00 98.4 59 18 119/50 98 I/O 09/07/16 09/07/16 09/07/16 09/08/16 09/08/16 09/08/16 07:00 15:00 23:00 07:00 15:00 23:00 Intake Total 480 ml 840 ml 240 ml Output Total 1450 ml 1000 ml 300 ml Balance -970 ml -160 ml -60 ml Intake Oral 480 ml 840 ml 240 ml Output Urine Total 1450 ml 1000 ml 300 ml # Voids 1 # Bowel Movements 1 Result Diagram: 09/07/16 0550 09/08/16 0506 Objective Remarks GENERAL: Obese female in no apparent distress. CARDIOVASCULAR: Normal rate and regular rhythm without murmurs, gallops, or rubs. RESPIRATORY: Good respiratory efforts. There are bilateral rhonchi, more pronounced at the bases. No wheezing. GASTROINTESTINAL: Abdomen soft, non-tender, non-distended. Normal active bowel sounds MUSCULOSKELETAL: Patient is tender to palpation over the left lower anterior rib. 1+ bilateral lower extremity edema. Status post left toe amputation. NEURO: Alert & Oriented x4 to person, place, time, situation. Moves all ext x4 PSYCH: Appropriate mood and affect. A/P Assessment and Plan 50-year-old female with: Acute hypoxemic respiratory failure: Likely secondary to combination of pulmonary edema from acute on chronic exacerbation of systolic heart failure. Probable atypical pneumonia contributing. Probable obesity related hypoventilation. - Patient is improving. Wean down to room air -Hold Bumex today given worsening renal function. 2-D echocardiogram unchanged from prior. - Continue breathing treatments - Continue treatment for probable pneumonia with Levaquin. Resistant hypertension, atrial fibrillation on Coumadin, CHF. Echo from EF 45-50% with diffuse hypokinesis. MPI neg, EF unchanged. - Cardiology following and adjusting antihypertensive. Blood pressure much improved, on the lower side. Currently on lisinopril, Coreg, and Procardia. Hold them hopefully DC clonidine. -Continue Coumadin. Peripheral neuropathy Continue gabapentin 600 mg 3 times a day. Hold Robaxin 500 mg 3 times a day for now CKD stage III Renal function slightly worse today secondary to diuretics. Hold diuretics. Monitor intake and output. Monitor electrolytes Pneumonia, Abnormal UA, Leukocytosis, lymph predominant Received zosyn and vanc in ED 09/03. - On Levaquin as above for presumed pneumonia. Urine culture negative. Diabetes mellitus Hold glipizide 10 po bid. low dose Regular insulin sliding scale. Levemir 35 units twice a day. Pre-meal insulin NovoLog 5 units 3 times a day pre-meals. PROPH: INR is therapeutic on Coumadin. SCDs. Protonix 40 mg IV daily for stress ulcer prophylaxis and history of GERD. Discharge Planning DC planning to rehab. Case management consulted. Can probably go to rehabilitation tomorrow if stable. Samantha Noel MD Sep 08, 2016 10:13
[2016-09-08] MEDS: WARFARIN SOD 6 MG TAB PO SCH (17:14)
[2016-09-08] MEDS: ATORVASTATIN 40 MG TAB PO SCH (21:26)
[2016-09-09] VITALS (23 sets, daily range): BP systolic 109–145; BP diastolic 55–67; PULSE 53–67; RESP 18; TEMP 98.4–98.7; O2SAT 95–98
[2016-09-09] MEDS: oxyCODONE/ACETAMINOPHEN 10 MG/325 MG TAB PO PRN ×3 (01:14→16:00)
[2016-09-09] MEDS: INSULIN ASPART 1,000 UNITS/10 ML VIAL SQ SCH ×3 (05:31→17:00)
[2016-09-09] MEDS: INSULIN ASPART SUPPLEMENTAL SCALE SQ SCH ×4 (06:42→16:00)
[2016-09-09 07:13] LABS: BICARBONATE 28.3 MEQ/L (21.0-32.0); POTASSIUM 4.6 MEQ/L (3.5-5.1)
[2016-09-09] MEDS: CHLORHEXIDINE 0.12% (ORAL KIT) 15 ML CUP MT SCH (08:00)
[2016-09-09] MEDS: ONDANSETRON HCL 4 MG/2 ML VIAL IV PUSH PRN (08:18)
[2016-09-09] MEDS: CHOLECALCIFEROL (VIT D3) 1000 UNIT TAB PO SCH (08:20)
[2016-09-09] MEDS: ASPIRIN EC 81 MG TABEC PO SCH (08:20)
[2016-09-09] MEDS: NIFEdipine 60 MG SUSTAINED RELEASE TAB PO SCH (08:21)
[2016-09-09] MEDS: CARVEDILOL 12.5 MG TAB PO SCH (08:21)
[2016-09-09] MEDS: GABAPENTIN 300 MG CAP PO SCH (08:21)
[2016-09-09] MEDS: INSULIN DETEMIR 100 UNITS/ML VIAL SQ SCH (08:21)
[2016-09-09] MEDS: LISINOPRIL 20 MG TAB TUBE SCH (08:23)
[2016-09-09] MEDS ORDERED: BUME1TAB PO (10:30)
[2016-09-09] MEDS ORDERED: PERC10TA27 PO (10:30)
[2016-09-09] MEDS ORDERED: NIFE15TA PO (10:30)
[2016-09-09] MEDS ORDERED: CARV12.52 PO (10:30)
[2016-09-09] MEDS ORDERED: DILA2TAB2 PO (10:31)
--- NOTE | 2016-09-09 10:31 | HHI.DS ---
Discharge Summary Admission Date Sep 03, 2016 at 19:28 Discharge Date: Sep 09, 2016 Admitting Diagnosis (1) Respiratory failure ICD Code: J96.90 (2) Obesity ICD Code: E66.9 (3) CKD (chronic kidney disease) ICD Code: N18.9 (4) Diabetic neuropathy ICD Code: E11.40 (5) CHF (congestive heart failure) ICD Code: I50.9 (6) Diabetes ICD Code: E11.9 (7) Pneumonia ICD Code: J18.9 Procedures Intubation and extubation Brief History - From Admission 51 yo F with PMH of HTN, chronic systolic CHF, atrial fibrillation on warfarin anticoagulation, DM, COPD, obesity, PAD, CKD Stage III who presents to [facility] with SOB. She was hypoxic in 70s with significant distress and did not tolerate Bipap mask so was emergently intubated with routine airway. She was not able to provide significant history due to severe breathlessness. ED staff states she denied fever at home. CXR demonstrates bilateral alveolar opacities. EKG is sinus rhythm with ST depresion V4-V6. She was difficult to sedate following intubation and was given Versed 20 mg IV and started on versed drip 10 mg/hr and Fentanyl drip 100 mcg/hr. She as reported egg allergy so propofol was avoided. She has BLE 2+ edema. Most recent admission 07/22/16 for CHF. Echo with EF 45-50% with diffuse hypokinesis. Patient's son presented to bedside in the emergency department. He states that she has had her grandchildren visiting for the last couple of days and that she has been more active than usual and had not expressed any complaints to him whatsoever until she became SOB this afternoon. CBC/BMP: 09/07/16 0550 09/09/16 0555 Significant Findings Laboratory Tests Test 09/07/16 09/07/16 09/08/16 09/09/16 05:49 05:50 05:06 05:55 Prothrombin Time 25.9 SEC (9.8-11.6) Blood Urea Nitrogen 33 MG/DL (7-18) 47 MG/DL (7-18) 60 MG/DL (7-18) Creatinine 1.44 MG/DL 2.18 MG/DL 2.22 MG/DL (0.50-1.00) (0.50-1.00) (0.50-1.00) Estimat Glomerular Filtration 46 ML/MIN (>89) 29 ML/MIN (>89) 28 ML/MIN (>89) Rate Random Glucose 324 MG/DL 274 MG/DL 187 MG/DL (74-106) (74-106) (74-106) Mean Corpuscular Volume 73.3 FL (80.0-100.0) Mean Corpuscular Hemoglobin 23.2 PG (27.0-34.0) Mean Corpuscular Hemoglobin 31.7 % Concent (32.0-36.0) Sodium Level 135 MEQ/L (136-145) Chloride Level 97 MEQ/L (98-107) Imaging Last Impressions Chest X-Ray 09/05/16 0600 Signed Impressions: Service Date/Time: September 03:26 - CONCLUSION: Improving bilateral pulmonary infiltrates. Manish Ortiz Jr., MD Myocardial Perfusion Scan Nuc Med 09/04/16 0000 Signed Impressions: Service Date/Time: Sunday, September 04, 2016 14:52 - CONCLUSION: 1. Examination difficult to interpret due to motion and excess extraneous activity in the gastric region. I suspect there is no significant reversibility. Wall motion is within normal limits with ejection fraction 52%%. RISK CATEGORY: Low (<1%% Annual Mortality Rate) Travis Bellamy MD PE at Discharge GENERAL: Obese female in no apparent distress. CARDIOVASCULAR: Normal rate and regular rhythm without murmurs, gallops, or rubs. RESPIRATORY: Good respiratory efforts. There are bilateral rhonchi, more pronounced at the bases. No wheezing. GASTROINTESTINAL: Abdomen soft, non-tender, non-distended. Normal active bowel sounds MUSCULOSKELETAL: Patient is tender to palpation over the left lower anterior rib. 1+ bilateral lower extremity edema. Status post left toe amputation. NEURO: Alert & Oriented x4 to person, place, time, situation. Moves all ext x4 PSYCH: Appropriate mood and affect. Pt update on day of discharge Patient reports that she is feeling okay except for left-sided musculoskeletal/ rib pain. Ready to go to rehab. Hospital Course 50-year-old female admitted and treated for the following conditions: Acute hypoxemic respiratory failure: Likely secondary to combination of pulmonary edema from acute on chronic exacerbation of systolic heart failure. Probable atypical pneumonia contributing. Probable obesity related hypoventilation. The patient was intubated and was subsequently extubated. - Patient improved and wean down to room air -Patient was treated with IV Bumex. This was changed to oral at a lower dose and frequency due to change in kidney function. 2-D echocardiogram unchanged from prior. Patient was treated for pneumonia as well. Resistant hypertension, atrial fibrillation on Coumadin, CHF. Echo from EF 45-50% with diffuse hypokinesis. MPI neg, EF unchanged. - Cardiology followed the patient and adjusted her blood pressure medications. She is discharged on Coreg and Procardia. Clonidine was weaned down and discontinued. -Continue Coumadin. Peripheral neuropathy Continue gabapentin 600 mg 3 times a day. CKD stage III Renal function slightly worse secondary to diuretics. IV diuretics were held. Expect renal function to return to baseline. To follow-up with PCP. Pneumonia, Abnormal UA, Leukocytosis, lymph predominant Received zosyn and vanc in ED 09/03. - On Levaquin as above for presumed pneumonia. Urine culture negative. Diabetes mellitus Glipizide was held. low dose Regular insulin sliding scale. Levemir 35 units twice a day. Pre-meal insulin NovoLog 5 units 3 times a day pre-meals. Musculoskeletal left-sided rib pain: Marco Antonio is tender to palpation there. Chest x-ray did not inability fractures. Continue Percocet as needed and Dilaudid orally was added for breakthrough pain. Pt Condition on Discharge: Stable Discharge Disposition: Discharge to SNF Discharge Time: > 30 minutes Discharge Instructions DIET: Follow Instructions for: Heart Healthy Diet Activities you can perform: See Additionl Instruction Other Activity Instructions: Per PT instructions. Use assistive device. Follow up Referrals: Cardiology - 2 Weeks New Medications: Hydromorphone (Dilaudid) 2 Mg Tab 2 MG PO Q4H PRN BREAKTHROUGH PAIN #15 TAB Levofloxacin (Levaquin) 750 Mg Tab 750 MG PO Q48H #3 TAB Nifedipine ER 24 HR (Nifedical XL) 60 Mg Tab 60 MG PO DAILY #30 TAB Changed Medications: Bumetanide (Bumetanide) 1 Mg Tab 1 MG PO DAILY #30 Ref 0 TAB (Changed from: Bumetanide 2 Mg Tab 2 Mg PO DAILY Ref 0) Carvedilol (Carvedilol) 12.5 Mg Tab 12.5 MG PO BID #60 Ref 0 TAB (Changed from: Carvedilol 25 Mg Tab 25 Mg PO BID # 60 TAB Ref 1) Oxycodone-Acetaminophen (Percocet) 10-325 mg Tab 1 TAB PO Q4H PRN PAIN GREATER THAN 5 #30 Ref 0 TAB (Medication details modified) Continued Medications: Atorvastatin (Lipitor) 40 Mg Tab 40 MG PO HS #30 Ref 1 TAB Cholecalciferol (Vitamin D-3) 1,000 Unit Tab 1000 UNITS PO DAILY #30 Ref 0 TAB Gabapentin (Gabapentin) 600 Mg Tab 600 MG PO TID #90 Ref 0 TAB Glipizide (Glipizide) 10 Mg Tab 10 MG PO BID Take 30 minutes before a meal Blood Sugar Management #60 Ref 0 TAB Insulin Glargine Inj (Lantus Inj) 1,000 Unit/10 Ml Vial 35 UNITS SQ BID Blood Sugar Management Ref 0 VIAL Lisinopril (Lisinopril) 20 Mg Tab 20 MG PO BID #30 Ref 0 TAB Pantoprazole (Pantoprazole) 40 Mg Tab 40 MG PO DAILY Reflux #30 Ref 0 TAB Warfarin (Warfarin) 6 Mg Tab 6 MG PO DAILY Blood Clot Prevention #30 Ref 0 TAB Discontinued Medications: Clonidine (Clonidine) 0.1 Mg Tab 0.1 MG PO BID Blood Pressure Management #60 Ref 0 TAB Methocarbamol (Robaxin) 500 Mg Tab 500 MG PO TID Muscle Spasm #90 Ref 0 TAB Samantha Noel MD Sep 09, 2016 10:31
[2016-09-09] MEDS ORDERED: HYDROmorphone HCL 2 MG TAB PO PRN (11:00)
[2016-09-09] MEDS ORDERED: LEVOFLOXACIN 750 MG TAB PO SCH (11:00)
[2016-09-09] MEDS: WARFARIN SOD 6 MG TAB PO SCH (15:59)
[2016-09-09] MEDS ORDERED: LEVA750T PO (16:31)
== END 2016-09-09 18:05 | DRG 208 ==
LOC: NEPA 17:38 → NEDA 19:28 → NEDH 23:48 → HIME 09-04 04:28 → HCIS 09-06 03:48
PROVIDERS: ADMIT Family Medicine; ATTEND Family Medicine
PROC: 5A1935Z Respiratory Ventilation, Less than 24 Consecutive Hours (ICD-10-PCS; principal; 2016-09-03)
PROC: 0BH17EZ Insertion of Endotracheal Airway into Trachea, Via Natural or Artificial Opening (ICD-10-PCS; 2016-09-03)
PROC: 5A09357 Assistance with Respiratory Ventilation, Less than 24 Consecutive Hours, Continuous Positive Airway Pressure (ICD-10-PCS; 2016-09-03)
DX: J96.01 Acute respiratory failure with hypoxia (principal); J44.0 Chronic obstructive pulmonary disease with (acute) lower respiratory infection; J18.9 Pneumonia, unspecified organism; E11.22 Type 2 diabetes mellitus with diabetic chronic kidney disease; E11.40 Type 2 diabetes mellitus with diabetic neuropathy, unspecified; E11.51 Type 2 diabetes mellitus with diabetic peripheral angiopathy without gangrene; I50.9 Heart failure, unspecified; E66.2 Morbid (severe) obesity with alveolar hypoventilation; Z68.41 Body mass index [BMI] 40.0-44.9, adult; I12.9 Hypertensive chronic kidney disease with stage 1 through stage 4 chronic kidney disease, or unspecified chronic kidney disease; N18.3 Chronic kidney disease, stage 3 (moderate); Z79.01 Long term (current) use of anticoagulants; Z79.84 Long term (current) use of oral hypoglycemic drugs; Z79.4 Long term (current) use of insulin; I48.91 Unspecified atrial fibrillation; E78.5 Hyperlipidemia, unspecified; K58.0 Irritable bowel syndrome with diarrhea; K21.9 Gastro-esophageal reflux disease without esophagitis; M19.90 Unspecified osteoarthritis, unspecified site; Z91.012 Allergy to eggs; Z87.891 Personal history of nicotine dependence; Z89.422 Acquired absence of other left toe(s)
CPT/HCPCS: 31500; 36600; 71010; 76937; 78452; 80048; 80053; 81001; 82550; 82552; 82805; 82948; 83605; 83735; 83880; 84100; 84443; 84484; 85007; 85025; 85027; 85610; 85730; 87040; 87086; 87449; 87641; 93005; 93017; 93308; 94002; 94003; 94150; 94640; 94664; 96365; 96366; 96368; A9502; C9113; J0330; J1815; J1956; J2060; J2250; J2405; J2543; J2785; J2930; J3010; J3370; J7050

== ENCOUNTER 2016-11-24 23:32 | Inpatient (IN) | payer OTHER, MEDICARE ==
[~2016-11-24] VITALS: Ht 165.1 cm; Wt 115.0 kg
[~2016-11-24 23:32] MED LIST changes: +CARV12.52 PO; -CARV25TA PO; -CLON0.1T PO; +DILA2TAB2 PO; +GLIP10TA6 PO; +LEVA750T PO; +NIFE15TA PO; -ROBA500T PO; +VITA10003 PO; +WARF-60 PO; -WARF4TAB52 PO
[2016-11-24 23:35] VITALS: O2SAT 92
[2016-11-24] MEDS ORDERED: PROPOFOL 1000 MG/100 ML INJ 100 ML ONE (23:35)
[2016-11-24 23:42] VITALS: PULSE 72
[2016-11-24 23:50] VITALS: BP 148/67; PULSE 71; RESP 14; O2SAT 100
--- NOTE | 2016-11-24 23:54 | PD ---
HPI Chief Complaint: Respiratory Distress Time Seen by Provider: 23:50 Travel History International Travel<30 days: No Contact w/Intl Traveler<30days: No Traveled to known affect area: No History of Present Illness HPI The patient is a 51 year old female who presents to the [facility] emergency department with a history of being brought in by ambulance services related to shortness of breath. The onset of the shortness of breath is unknown. The patient arrives intubated due to respiratory failure. According to ambulance services when they arrived at the patient's bedside the patient reported a history of congestive heart failure. The patient was noted to be in respiratory distress with tachypnea with a rate in the 50s. The patient was noted to have significant lower extremity edema. The patient was given a trial of CPAP after a spray of nitroglycerin was administered for elevated blood pressure. The patient was only able to obtain an oxygen saturation on CPAP of 84%. The patient was therefore intubated. The patient was given Ativan 4 mg IV , etomidate 20 mg IV for intubation. The patient began to franco the vent and was given another 2 mg of Ativan IV. The patient reportedly had good CO2 capnography reported prior to arrival. The patient had an intraosseous access placed in the left humerus. The patient is unable to provide any history on arrival. The patient's history is obtained from reviewing the patient's electronic medical record. [facility] Past Medical History Narrative Medical The patient's past medical history is significant for hypertension, chronic systolic congestive heart failure, atrial fibrillation chronically anticoagulated on warfarin, diabetes mellitus, COPD, obesity, peripheral arterial disease, chronic renal insufficiency, history of osteomyelitis involving the left leg requiring debridement of the skin and partial amputation. Hx Anticoagulant Therapy: Yes Anemia: Yes Arthritis: Yes Asthma: No Atrial Fibrillation: Yes Autoimmune Disease: No Blood Disorders: No Anxiety: Yes Depression: No Heart Rhythm Problems: Yes (afib) Cancer: No Cardiovascular Problems: Yes High Cholesterol: No Chemotherapy: No Chest Pain: Yes Congestive Heart Failure: Yes COPD: Yes Cerebrovascular Accident: No Diabetes: Yes Patient Takes Glucophage: Yes (UNKNOWN ) Diminished Hearing: No Deep Vein Thrombosis: Yes Endocrine: Yes Gastrointestinal Disorders: Yes (IBS) GERD: Yes Gout: Yes Genitourinary: Yes Headaches: Yes Hepatitis: No Hiatal Hernia: No Heparin Induced Thrombocytopen: No Hypertension: Yes Immune Disorder: No Implanted Vascular Access Dvce: No Kidney Stones: No Musculoskeletal: Yes Neurologic: No Psychiatric: Yes Reproductive: No Respiratory: Yes Immunizations Current: Yes Migraines: No Myocardial Infarction: No Pneumonia: Yes Radiation Therapy: No Renal Failure: No Seizures: No Sleep Apnea: Yes Thyroid Disease: No Ulcer: Yes PNEUMOCCOCAL Vaccine (Year): 2 ?: Not Menopausal: Yes : 5 Para: 4 Miscarriage: 1 Tubal Ligation: Yes Past Surgical History Narrative Surgical The patient's past surgical history is significant for a tonsillectomy, bilateral tubal ligation, right knee surgery, debridement of the left lower extremity secondary to osteomyelitis and wound VAC placement, amputation of the third through fifth toes of the left foot. Abdominal Surgery: No AICD: No Appendectomy: No Arteriovenous Shunt: No Cardiac Surgery: No Cholecystectomy: No Ear Surgery: No Endocrine Surgery: No Eye Surgery: No Genitourinary Surgery: No Gynecologic Surgery: Yes (tubal ligation) Insulin Pump: No Joint Replacement: No Neurologic Surgery: No Oral Surgery: Yes (tooth extraction) Pacemaker: No Thoracic Surgery: No Tonsillectomy: Yes Other Surgery: Yes (DEBRIDEMENT OF ABSCESS, STENT IN LT LEG, FASCIOTOMY LEFT LEG) Social History Alcohol Use: No (FARHAT) Tobacco Use: No Substance Use: No Allergies-Medications (Allergen,Severity, Reaction): Coded Allergies: Ibuprofen (Verified Allergy, Severe, MESSES WITH KIDNEYS, 07/22/16) Sulfa (Verified Allergy, Severe, HIVES, 07/22/16) Egg Allergy (Verified Allergy, Intermediate, Very Upset Stomach, 07/22/16) Milk (Verified Allergy, Unknown, 07/22/16) *MDRO Multi-Drug Resistant Organism (Verified Adverse Reaction, Unknown, KPC, ESBL, MRSA, 09/04/16) MRSA (leg wound) - 11/2004, 01/2005 MRSA toe wound 12/21/14. 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 Reported Meds & Prescriptions Reported Meds & Active Scripts Active Levaquin (Levofloxacin) 750 Mg Tab 750 Mg PO Q48H Dilaudid (Hydromorphone HCl) 2 Mg Tab 2 Mg PO Q4H PRN Nifedical XL (Nifedipine) 60 Mg Tab 60 Mg PO DAILY Bumetanide 1 Mg Tab 1 Mg PO DAILY Carvedilol 12.5 Mg Tab 12.5 Mg PO BID Percocet (Oxycodone-Acetaminophen) 10-325 mg Tab 1 Tab PO Q4H PRN Lipitor (Atorvastatin Calcium) 40 Mg Tab 40 Mg PO HS Reported Glipizide 10 Mg Tab 10 Mg PO BID Take 30 minutes before a meal Vitamin D-3 (Cholecalciferol) 1,000 Unit Tab 1,000 Units PO DAILY Warfarin 6 Mg Tab 6 Mg PO DAILY Lantus Inj (Insulin Glargine) 1,000 Unit/10 Ml Vial 35 Units SQ BID Pantoprazole (Pantoprazole Sodium) 40 Mg Tab 40 Mg PO DAILY Lisinopril 20 Mg Tab 20 Mg PO BID Gabapentin 600 Mg Tab 600 Mg PO TID Review of Systems ROS Limitations: Intubated Cardiovascular: Positive: Dyspnea on exertion, No: Chest Pain or Discomfort Respiratory: Positive: Cough, Shortness of Breath, Orthopnea Physical Exam Narrative General: The patient is a well-developed well-nourished female arrives intubated with an endotracheal tube and being ventilated although she is also breathing on her own. Head and Neck exam: Head is normocephalic atraumatic. Eyes: Extraocular motion testing is unable to be accomplished in this patient who is not following commands at this point and was sedated prior to arrival for intubation. Pupils are equal round and reactive to light. Nose: Midline septum with pink mucous membranes Mouth: Dentition unremarkable. Moist mucus membranes. Posterior oropharynx is not able to be fully visualized as the patient has an endotracheal tube in place. Neck: No palpable lymphadenopathy. No nuchal rigidity. No thyromegaly. Cardiovascular: Regular rate and rhythm without murmurs, gallops, or rubs. No pulse deficit to the extremities and simultaneous auscultation and palpation of her radial artery. Lungs: Crackles are audible at least two thirds of the way up the bases bilaterally. No rhonchi or wheezes are audible. The patient is noted to have frothy bloody secretions in the airway which will be suctioned. Abdomen: Soft, without tenderness to palpation in all 4 quadrants of the abdomen. No guarding, rebound, or rigidity. Normal bowel sounds are audible. The patient' s abdomen is distended related to central obesity. Extremities: No clubbing or cyanosis. The patient has 2+ pitting edema bilateral lower extremities. The patient had intraosseous access placed in the left humerus prior to arrival. Neurologic Exam: The patient on initial arrival is sedated related to in total 6 mg of Ativan being administered for initial intubation and sedation on the ventilator. According to ambulance services prior to arrival patient was moving all extremities equally. The patient had no reported evidence of facial asymmetry. Skin Exam: No rash noted. Intact skin that is warm and dry. Data Data Last Documented VS Vital Signs Date Time Temp Pulse Resp B/P Pulse Ox O2 Delivery O2 Flow Rate FiO2 11/25/16 00:30 25 93 Ventilator 100 11/25/16 00:00 64 128/54 Orders Propofol 1000 Mg/100 Ml Inj (Diprivan 10 (11/24/16 23:35) Complete Blood Count With Diff (11/24/16 23:54) Comprehensive Metabolic Panel (11/24/16 23:54) B-Type Natriuretic Peptide (11/24/16:54) Act Partial Throm Time (Ptt) (11/24/16:54) Prothrombin Time / Inr (Pt) (11/24/16 23:54) Magnesium (Mg) (11/24/16 23:54) Ckmb (Isoenzyme) Profile (11/24/16 23:54) Troponin I (11/24/16:54) Arterial Blood Gas (Abg) (11/24/16 23:54) Urinalysis - C+S If Indicated (11/24/16 23:54) Blood Culture (11/24/16 23:54) Iv Access Insert/Monitor (11/24/16 23:54) Electrocardiogram (11/24/16:54) Ecg Monitoring (11/24/16:54) Oximetry (11/24/16:54) Oxygen Administration (11/24/16:54) Chest, Single Ap (11/24/16 23:54) Urinary Catheter Insert/Apply (11/24/16 23:54) Sodium Chloride 0.9% Flush (Ns Flush) (11/25/16 00:00) Furosemide Inj (Lasix Inj) (11/25/16 00:00) Albuterol-Ipratropium Neb (Duoneb Neb) (11/25/16 00:00) Lactic Acid Sepsis Protocol (11/24/16 23:54) Marylou-Gastric Tube Insert/Mon (11/24/16 23:54) Propofol 1000 Mg/100 Ml Inj (Diprivan 10 (11/25/16 00:00) Neurological Rass Scale Q30MX2,Q2HX4,Q4H (11/25/16 00:00) Fentanyl Drip (Fentanyl Drip) (11/25/16 00:00) Fentanyl Drip (Fentanyl Drip) (11/25/16 00:12) Admit Order (Ed Use Only) (11/25/16 00:37) CKMB (11/25/16 00:05) CKMB% (11/25/16 00:05) Labs Laboratory Tests Test 11/25/16 11/25/16 00:05 00:08 White Blood Count 13.9 TH/MM3 Red Blood Count 4.22 MIL/MM3 Hemoglobin 9.5 GM/DL Hematocrit 30.0 % Mean Corpuscular Volume 71.1 FL Mean Corpuscular Hemoglobin 22.4 PG Mean Corpuscular Hemoglobin 31.5 % Concent Red Cell Distribution Width 17.8 % Platelet Count 389 TH/MM3 Mean Platelet Volume 8.6 FL Neutrophils (%) (Auto) 74.1 % Lymphocytes (%) (Auto) 20.2 % Monocytes (%) (Auto) 3.8 % Eosinophils (%) (Auto) 1.5 % Basophils (%) (Auto) 0.4 % Neutrophils # (Auto) 10.3 TH/MM3 Lymphocytes # (Auto) 2.8 TH/MM3 Monocytes # (Auto) 0.5 TH/MM3 Eosinophils # (Auto) 0.2 TH/MM3 Basophils # (Auto) 0.1 TH/MM3 CBC Comment AUTO DIFF Differential Comment AUTO DIFF CONFIRMED Ovalocytes 1+ Prothrombin Time 47.5 SEC Prothromb Time International 4.0 RATIO Ratio Activated Partial 59.7 SEC Thromboplast Time Sodium Level 141 MEQ/L Potassium Level 5.3 MEQ/L Chloride Level 111 MEQ/L Carbon Dioxide Level 21.3 MEQ/L Anion Gap 9 MEQ/L Blood Urea Nitrogen 48 MG/DL Creatinine 1.89 MG/DL Estimat Glomerular Filtration 34 ML/MIN Rate Random Glucose 199 MG/DL Lactic Acid Level 2.6 mmol/L Calcium Level 8.3 MG/DL Magnesium Level 2.1 MG/DL Total Bilirubin 0.3 MG/DL Aspartate Amino Transf 22 U/L (AST/SGOT) Alanine Aminotransferase 20 U/L (ALT/SGPT) Alkaline Phosphatase 113 U/L Total Creatine Kinase 139 U/L Creatine Kinase MB 2.0 NG/ML Troponin I LESS THAN 0.02 NG/ML B-Type Natriuretic Peptide 207 PG/ML Total Protein 7.6 GM/DL Albumin 2.8 GM/DL Blood Gas Puncture Site RT RADIAL Blood Gas Patient Temperature 98.6 Blood Gas HCO3 20 mmol/L Blood Gas Base Excess -5.4 mmol/L Blood Gas Oxygen Saturation 85 % Arterial Blood pH 7.28 Arterial Blood Partial 45 mmHg Pressure CO2 Arterial Blood Partial 60 mmHG Pressure O2 Arterial Blood Oxygen Content 11.1 Vol % Arterial Blood 0.8 % Carboxyhemoglobin Arterial Blood Methemoglobin 1.0 % Blood Gas Hemoglobin 9.3 G/DL Oxygen Delivery Device VENTILATOR Blood Gas Ventilator Setting AC/14 /500 PEEP5 Blood Gas Inspired Oxygen 100 % MDM Medical Decision Making Medical Screen Exam Complete: Yes Emergency Medical Condition: Yes Medical Record Reviewed: Yes Interpretation(s) Last Impressions Chest X-Ray 11/25/16 0000 Signed Impressions: Service Date/Time: Friday, November 25, 2016 12:48 - CONCLUSION: 1. Interval improvement. 2. Consistent bibasilar consolidative changes are noted much worse on the left than the right. Sarmad Timmons MD FACR Chest X-Ray 11/24/16 2354 Signed Impressions: Service Date/Time: Friday, November 25, 2016 00:37 - CONCLUSION: 1. Worsening bilateral airspace disease. 2. Adequate placement of endotracheal tube. Bruno Urban MD Differential Diagnosis Congestive heart failure exacerbation, versus acute coronary syndrome, versus COPD exacerbation, versus ARDS Narrative Course During the course of the patients emergency department visit, the patients history, examination, and differential diagnosis were reviewed with the patient. The patient had IV access obtained and blood work sent for analysis. The patient was placed on a secured entrance monitor with oximetry and blood pressure monitoring. The patient was placed on the ventilator by respiratory therapy. An ABG was ordered. An OG tube was ordered to be placed along with a Lagos catheter to gravity. An EKG was done which shows a sinus rhythm heart rate is 64, no acute ST segment elevation or depression is noted. The patient was provided Lasix 80 mg IV 1. The patient was initially placed on a propofol drip for sedation on the ventilator, however after further review of the patient's record the patient has a reported egg allergy which can result in eye hypersensitivity to propofol, therefore this was discontinued. The patient was assisted started on a fentanyl drip. The patient was given intermittent doses of Versed for further sedation on the ventilator. The patients laboratory studies were reviewed and remarkable for a white count of 13.9, hemoglobin 9.5, platelets 389 with 74.1 neutrophils, CMP is remarkable for potassium of 5.3 with slight hemolysis noted, BUN 48, creatinine 1.89, glucose 199 with a calcium of 8.3, CPK is 139, MB 2.0, troponin I less than 0.02 , BNP 207, INR is 4.0, Coumadin will be held. Urinalysis shows 100 protein, trace occult blood, 4 rbc's, rare bacteria. Radiology studies were reviewed and remarkable for a chest x-ray shows worsening bilateral airspace disease, adequate placement of endotracheal tube. An ABG was done shortly after arrival and the patient was noted to have a pH of 7.28, PCO2 45, PO2 60, bicarbonate 20 this was on assist control, rate of 14, 500 tidal volume, PEEP of 5 with 100% FiO2. The patient was given a DuoNeb 2. The patients results were discussed with the patient, including the plan of care. I explained that further testing and/ or monitoring is indicated based on the patients history, examination, and/ or laboratory findings. Therefore, I recommended admission for additional evaluation. The patient expressed understanding and was agreeable with this plan. The patient was admitted to the hospital in guarded condition and sent to a bed under the care of the advertising space clerk. Critical Care Narrative Aggregate critical care time was 37 minutes. Time to perform other separately billable procedures was not included in the critical care time. My time did not include minutes spent treating any other patients simultaneously or on activities that did not directly contribute to the patient's treatment. The services I provided to this patient were to treat and/or prevent clinically significant deterioration that could result in: Hypoxic encephalopathy, versus cardiovascular collapse, versus cardiac arrhythmia I provided critical care services requiring my management, as noted below: Chart data review, documentation time, medication orders and management, vital sign assessments/reviewing monitor data, ordering and reviewing lab tests, ordering and interpreting/reviewing x-rays and diagnostic studies, care of the patient and discussion of the patient with the admitting physicians. Physician Communication Physician Communication The patient's case was discussed with Dr. Montemayor who did agree to admit the patient for further evaluation and treatment at this time. Diagnosis Primary Impression: Acute exacerbation of congestive heart failure Qualified Code: I50.9 - Acute on chronic congestive heart failure, unspecified congestive heart failure type Additional Impression: Respiratory failure Qualified Code: J96.01 - Acute respiratory failure with hypoxia and hypercapnia Admitting Information Admitting Physician Requests: Admit Karrie Huitron MD Nov 24, 2016 23:54
[2016-11-25] VITALS (25 sets, daily range): BP systolic 104–187; BP diastolic 54–79; PULSE 50–73; RESP 10–25; TEMP 96.4–101.6; O2SAT 89–100
[2016-11-25] MEDS ORDERED: RESP: ALBUTEROL 2.5 MG/IPRATROPIUM 0.5 MG NEB (SCH) INH ONE
[2016-11-25] MEDS ORDERED: FUROSEMIDE 100 MG/10 ML VIAL IVP ONE
[2016-11-25] MEDS ORDERED: PROPOFOL 1000 MG/100 ML INJ 100 ML IV SCH
[2016-11-25] MEDS ORDERED: SODIUM CHLORIDE 0.9% FLUSH 10 ML FLUSH IVF PRN
[2016-11-25] MEDS ORDERED: fentaNYL DRIP 250 ML ONE ×2 (00:12→10:06)
[2016-11-25 00:22] LABS: BLOOD GAS BASE EXCESS -5.4 mmol/L (-2-2); BLOOD GAS CARBOXYHEMOGLOBIN 0.8 % (0-4); BLOOD GAS HCO3 20 mmol/L (22-26); BLOOD GAS O2 HGB SATURATION 85 % (90-100); BLOOD GAS OXYGEN CONTENT 11.1 Vol % (12.0-20.0); BLOOD GAS PCO2 45 mmHg (38-42); BLOOD GAS PO2 60 mmHG (61-120); BLOOD GAS TOTAL HGB 9.3 G/DL (12.0-16.0); CRITICAL VALUE YES; TEMP CORR TO 98.6
[2016-11-25 00:23] LABS: DRAW SITE RT RADIAL; FIO2 100 %; NUMBER OF ARTERIAL PUNCTURES 2; OXYGEN DEVICE VENTILATOR; STAT YES; ULNAR PULSE PRESENT; VENT SETTINGS AC/14 /500 PEEP5
[2016-11-25 00:33] LABS: AUTOMATED NEUTROPHIL # 10.3 TH/MM3 (1.8-7.7); BASOPHIL # 0.1 TH/MM3 (0-0.2); BASOPHIL % 0.4 % (0.0-2.0); EOSINOPHIL # 0.2 TH/MM3 (0-0.4); EOSINOPHIL % 1.5 % (0.0-4.0); LYMPH % 20.2 % (9.0-44.0); LYMPHOCYTE # 2.8 TH/MM3 (1.0-4.8); MEAN CELL VOLUME 71.1 FL (80.0-100.0); MEAN CORPUSCULAR HEMOGLOBIN 22.4 PG (27.0-34.0); MEAN CORPUSCULAR HGB CONC 31.5 % (32.0-36.0); MONO % 3.8 % (0.0-8.0); NEUT % 74.1 % (16.0-70.0); PLATELET COUNT 389 TH/MM3 (150-450); RED BLOOD COUNT 4.22 MIL/MM3 (4.00-5.30); RED CELL DISTRIBUTION WIDTH 17.8 % (11.6-17.2); WHITE BLOOD COUNT 13.9 TH/MM3 (4.0-11.0)
[2016-11-25 00:37] LABS: HEMO FLAGS AUTO DIFF
[2016-11-25] MEDS ORDERED: MIDAZOLAM HCL 5 MG/ML VIAL (1 ML) ONE ×2 (00:49→01:21)
[2016-11-25 00:59] LABS: APTT (PATIENT) 59.7 SEC (24.3-30.1); PROTHROMBIN TIME - PATIENT 47.5 SEC (9.8-11.6)
[2016-11-25 01:00] LABS: ALKALINE PHOSPHATASE 113 U/L (45-117); ALT (GPT) 20 U/L (10-53); ANION GAP 9 MEQ/L (5-15); AST (GOT) 22 U/L (15-37); BICARBONATE 21.3 MEQ/L (21.0-32.0); BLOOD UREA NITROGEN 48 MG/DL (7-18); CHLORIDE 111 MEQ/L (98-107); CREATINE KINASE 139 U/L (26-192); GLOMERULAR FILTRATION RATE 34 ML/MIN (>89); MAGNESIUM 2.1 MG/DL (1.5-2.5); SODIUM (NA) 141 MEQ/L (136-145); TOTAL BILIRUBIN ADULT 0.3 MG/DL (0.2-1.0)
[2016-11-25] MEDS ORDERED: MIDAZOLAM HCL 5 MG/5 ML VIAL IV PUSH ONE ×2 (01:00→01:30)
[2016-11-25 01:01] LABS: POTASSIUM 5.3 MEQ/L (3.5-5.1)
[2016-11-25 01:05] LABS: BACTERIA, URINE RARE /hpf; BLOOD, URINE TRACE (NEG); COMMENT (UR) CULT NOT INDICATED; CULTURE IF INDICATED CULT NOT INDICATED; GLUCOSE,URINE NEG (NEG); KETONE, URINE NEG (NEG); MUCUS URINE FEW /lpf (OCC); NITRITE,URINE NEG (NEG); PH, URINE 5.5 (5.0-8.5); URINE COLOR LIGHT-YELLOW (YELLW/STRAW)
[2016-11-25 01:06] LABS: OVALOCYTES 1+ (NORMAL); SCAN/DIFF AUTO DIFF CONFIRMED
[2016-11-25] MEDS ORDERED: MISCELLANEOUS NURSING INFORMATION XX SCH (01:15)
[2016-11-25] MEDS ORDERED: MORPHINE SULFATE 4 MG/ML INJ IV PRN (01:15)
[2016-11-25] MEDS ORDERED: LORazepam 2 MG/ML VIAL IV PRN (01:15)
[2016-11-25] MEDS ORDERED: METOCLOPRAMIDE HCL 10 MG/2 ML VIAL IV PRN ×2 (01:15→02:04)
[2016-11-25] MEDS ORDERED: ONDANSETRON HCL 4 MG/2 ML VIAL IV PRN (01:15)
[2016-11-25] MEDS ORDERED: CHLORHEXIDINE GLUCONATE 2 % 1 PACK (2 CLOTHS) TOP PRN (01:15)
[2016-11-25] MEDS ORDERED: SODIUM CHLORIDE 0.9% FLUSH 10 ML FLUSH PRN (01:15)
[2016-11-25] MEDS ORDERED: fentaNYL DRIP 250 ML IV SCH ×2 (01:15)
[2016-11-25] MEDS ORDERED: ACETAMINOPHEN 325 MG TAB PO PRN (01:15)
[2016-11-25] MEDS ORDERED: RESP: ALBUTEROL 2.5 MG/IPRATROPIUM 0.5 MG NEB (PRN) INH (01:15)
[2016-11-25] MEDS ORDERED: HEPARIN SODIUM - SQ 10,000 UNITS/ML VIAL SQ SCH (02:00)
--- NOTE | 2016-11-25 02:08 | RADRPT ---
EXAM DATE/TIME: 11/25/2016 00:37 [facility] COMPARISON: CHEST SINGLE AP, September 05, 2016, 3:26. INDICATIONS : E-T tube placement. MEDICAL HISTORY : Congestive heart failure. Chronic obstructive pulmonary disease. Diabetes mellitus type II. SURGICAL HISTORY : Tonsillectomy. Tubal ligation. Mastectomy ENCOUNTER: Initial ACUITY: 1 day PAIN SCORE: Non-responsive. LOCATION: Bilateral chest FINDINGS: A single view of the chest demonstrates patchy bilateral airspace disease. Nasogastric tube with tip in stomach. ET tube 4.5 cm above the elizabeth. The cardiomediastinal contours are unremarkable. Osseou s structures are intact. CONCLUSION: 1. Worsening bilateral airspace disease. 2. Adequate placement of endotracheal tube. Bruno Urban MD on November 25, 2016 at 2:05 Board Certified Radiologist. This report was verified electronically.
[2016-11-25 02:12] LABS: BLOOD GAS BASE EXCESS -3.9 mmol/L (-2-2); BLOOD GAS HCO3 22 mmol/L (22-26); BLOOD GAS METHEMOGLOBIN 1.1 % (0-2); BLOOD GAS O2 HGB SATURATION 85 % (90-100); BLOOD GAS OXYGEN CONTENT 11.3 Vol % (12.0-20.0); BLOOD GAS PCO2 45 mmHg (38-42); BLOOD GAS PO2 59 mmHG (61-120); BLOOD GAS TOTAL HGB 9.4 G/DL (12.0-16.0); TEMP CORR TO 98.6
[2016-11-25 02:13] LABS: DRAW SITE RT RADIAL; FIO2 100 %; NUMBER OF ARTERIAL PUNCTURES 1; OXYGEN DEVICE VENTILATOR; STAT YES; ULNAR PULSE PRESENT; VENT SETTINGS AC/14/500/PEEP5
[2016-11-25 02:15] LABS: CRITICAL VALUE YES
[2016-11-25 02:22] LABS: LACTIC ACID GHOST NOT REPORTABLE
[2016-11-25] MEDS: PROPOFOL 1000 MG/100 ML INJ 100 ML IV SCH (03:00)
[2016-11-25] MEDS: FUROSEMIDE 20 MG/2 ML VIAL IV PUSH SCH ×4 (03:21→22:06)
[2016-11-25] MEDS: DOCUSATE SODIUM 100 MG/10 ML UDC G-TUBE SCH ×3 (03:22→21:14)
--- NOTE | 2016-11-25 03:58 | HHI.HP ---
HPI Service Critical Care Medicine Primary Care Physician Unknown Admission Diagnosis Respiratory Failure, CHF exacerbation Diagnosis: Travel History International Travel<30 Days: No Contact w/Intl Traveler <30 Da: No Traveled to Known Affected Are: No History of Present Illness 51 year old female presents with shortness of breath. The patient arrives intubated due to respiratory failure. According to ambulance services when they arrived at the patient's bedside the patient reported a history of congestive heart failure. She was noted to be in respiratory distress with tachypnea with a rate in the 50s and was noted to have significant lower extremity edema. The patient was given a trial of CPAP after a spray of nitroglycerin was administered for elevated blood pressure. She was emergently intubated by EMT. Review of Systems ROS Unable to obtain patient is intubated Past Family Social History Allergies: Coded Allergies: Ibuprofen (Verified Allergy, Severe, MESSES WITH KIDNEYS, 07/22/16) Sulfa (Verified Allergy, Severe, HIVES, 07/22/16) Egg Allergy (Verified Allergy, Intermediate, Very Upset Stomach, 07/22/16) Milk (Verified Allergy, Unknown, 07/22/16) *MDRO Multi-Drug Resistant Organism (Verified Adverse Reaction, Unknown, KPC, ESBL, MRSA, 09/04/16) MRSA (leg wound) - 11/2004, 01/2005 MRSA toe wound 12/21/14. 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 Past Medical History Hypertension Diabetes Hyperlipidemia Peripheral neuropathy Chronic systolic heart failure Osteomyelitis left leg requiring debridement, skin, amputation Past Surgical History Tonsillectomy Tubal ligation Right knee Debridement of left lower extremity secondary to osteomyelitis Amputation third through fifth toes Reported Medications Reported Meds & Active Scripts Active Levaquin (Levofloxacin) 750 Mg Tab 750 Mg PO Q48H Dilaudid (Hydromorphone HCl) 2 Mg Tab 2 Mg PO Q4H PRN Nifedical XL (Nifedipine) 60 Mg Tab 60 Mg PO DAILY Bumetanide 1 Mg Tab 1 Mg PO DAILY Carvedilol 12.5 Mg Tab 12.5 Mg PO BID Percocet (Oxycodone-Acetaminophen) 10-325 mg Tab 1 Tab PO Q4H PRN Lipitor (Atorvastatin Calcium) 40 Mg Tab 40 Mg PO HS Reported Glipizide 10 Mg Tab 10 Mg PO BID Take 30 minutes before a meal Vitamin D-3 (Cholecalciferol) 1,000 Unit Tab 1,000 Units PO DAILY Warfarin 6 Mg Tab 6 Mg PO DAILY Lantus Inj (Insulin Glargine) 1,000 Unit/10 Ml Vial 35 Units SQ BID Pantoprazole (Pantoprazole Sodium) 40 Mg Tab 40 Mg PO DAILY Lisinopril 20 Mg Tab 20 Mg PO BID Gabapentin 600 Mg Tab 600 Mg PO TID Active Ordered Medications Current Medications Medications (Trade) Dose Ordered Sig/Juliane Route PRN Reason Start Time Stop Time Status Last Admin Dose Admin Sodium Chloride (NS Flush) 2 ml UNSCH PRN .XX FLUSH AFTER USING IV ACCESS 11/25/16 01:15 Sodium Chloride (NS Flush) 2 ml BID .XX 11/25/16 09:00 Acetaminophen (Tylenol) 650 mg Q6H PRN PO PAIN 1-5 AND/OR FEVER >101F 11/25/16 01:15 Morphine Sulfate (Morphine Inj) 2 mg Q2H PRN IV PAIN SCALE 6 TO 10 11/25/16 01:15 Famotidine (Pepcid Inj) 10 mg Q12HR IV PUSH 11/25/16 09:00 Lorazepam (Ativan Inj) 2 mg Q4H PRN IV Agitation/Sedation 11/25/16 01:15 Artificial Tears (Tears Naturale Opth Soln) 1 drop TID EACH EYE 11/25/16 09:00 Ondansetron HCl (Zofran Inj) 4 mg Q6H PRN IV NAUSEA OR VOMITING 11/25/16 01:15 Docusate Sodium (Colace Liq) 100 mg Q12HR G-TUBE 11/25/16 01:15 11/25/16 03:22 Miscellaneous Information 1 Q361D XX 11/25/16 01:15 Chlorhexidine Gluconate (Chlorhexidine 2% Cloth) 3 pack Taper DAILY@04 TOP 11/25/16 04:00 11/21/17 03:59 Chlorhexidine Gluconate 3 pack 3 pack UNSCH PRN TOP HYGIENIC CARE 11/25/16 01:15 Propofol 100 ml @ 0 mls/hr TITRATE IV 11/25/16 01:15 11/25/16 03:00 Fentanyl Citrate (fentaNYL DRIP) 250 ml @ 0 mls/hr TITRATE IV 11/25/16 01:15 Arginine HCl (Patrick Powder) 1 pack BID G-TUBE 11/25/16 09:00 Atorvastatin Calcium (Lipitor) 40 mg HS PO 11/25/16 21:00 Bumetanide (Bumetanide) 1 mg DAILY PO 11/25/16 09:00 Carvedilol (Coreg) 12.5 mg BID PO 11/25/16 09:00 Gabapentin (Neurontin) 600 mg Q12HR PO 11/25/16 09:00 Insulin Detemir 35 units 35 units Q12HR SQ 11/25/16 09:00 Pharmacy Profile Note (Coumadin Consult Pharmacy) ml @ 0 mls/hr UNSCH OTHER 11/25/16 02:00 Metoclopramide HCl (Reglan Inj) 5 mg Q6H PRN IV NAUSEA OR VOMITING 11/25/16 02:04 Furosemide (Lasix Inj) 20 mg Q6H IV PUSH 11/25/16 02:45 11/25/16 20:46 11/25/16 03:21 Family History Noncontributory Social History Negative 3 Physical Exam Vital Signs Vital Signs Date Time Temp Pulse Resp B/P Pulse Ox O2 Delivery O2 Flow Rate FiO2 11/25/16 02:50 100 100 11/25/16 00:30 25 93 Ventilator 100 11/25/16 00:30 93 Ventilator 100 11/24/16 23:50 71 14 148/67 100 Ventilator 100 11/24/16 23:42 72 11/24/16 23:35 92 100 Physical Exam GENERAL: Morbidly obese intubated female SKIN: Warm and dry. HEAD: Normocephalic. EYES: No scleral icterus. No injection or drainage. NECK: Supple, trachea midline. No JVD or lymphadenopathy. CARDIOVASCULAR: Regular rate and rhythm without murmurs, gallops, or rubs. RESPIRATORY: Breath sounds equal bilaterally. No accessory muscle use. GASTROINTESTINAL: Abdomen soft, non-tender, nondistended. MUSCULOSKELETAL: No cyanosis, or edema. BACK: Nontender without obvious deformity. No CVA tenderness. EXTREMITIES: 2+ pitting edema up to her knees Laboratory Laboratory Tests Test 11/25/16 11/25/16 11/25/16 11/25/16 00:05 00:08 00:45 01:24 White Blood Count 13.9 Red Blood Count 4.22 Hemoglobin 9.5 Hematocrit 30.0 Mean Corpuscular Volume 71.1 Mean Corpuscular Hemoglobin 22.4 Mean Corpuscular Hemoglobin 31.5 Concent Red Cell Distribution Width 17.8 Platelet Count 389 Mean Platelet Volume 8.6 Neutrophils (%) (Auto) 74.1 Lymphocytes (%) (Auto) 20.2 Monocytes (%) (Auto) 3.8 Eosinophils (%) (Auto) 1.5 Basophils (%) (Auto) 0.4 Neutrophils # (Auto) 10.3 Lymphocytes # (Auto) 2.8 Monocytes # (Auto) 0.5 Eosinophils # (Auto) 0.2 Basophils # (Auto) 0.1 CBC Comment AUTO DIFF Differential Comment AUTO DIFF CONFIRMED Ovalocytes 1+ Prothrombin Time 47.5 Prothromb Time International 4.0 Ratio Activated Partial 59.7 Thromboplast Time Sodium Level 141 Potassium Level 5.3 Chloride Level 111 Carbon Dioxide Level 21.3 Anion Gap 9 Blood Urea Nitrogen 48 Creatinine 1.89 Estimat Glomerular Filtration 34 Rate Random Glucose 199 Lactic Acid Level 2.6 Calcium Level 8.3 Magnesium Level 2.1 Total Bilirubin 0.3 Aspartate Amino Transf 22 (AST/SGOT) Alanine Aminotransferase 20 (ALT/SGPT) Alkaline Phosphatase 113 Total Creatine Kinase 139 Creatine Kinase MB 2.0 Troponin I LESS THAN 0.02 B-Type Natriuretic Peptide 207 Total Protein 7.6 Albumin 2.8 Blood Gas Puncture Site RT RADIAL RT RADIAL Blood Gas Patient Temperature 98.6 98.6 Blood Gas HCO3 20 22 Blood Gas Base Excess -5.4 -3.9 Blood Gas Oxygen Saturation 85 85 Arterial Blood pH 7.28 7.30 Arterial Blood Partial 45 45 Pressure CO2 Arterial Blood Partial 60 59 Pressure O2 Arterial Blood Oxygen Content 11.1 11.3 Arterial Blood 0.8 1.0 Carboxyhemoglobin Arterial Blood Methemoglobin 1.0 1.1 Blood Gas Hemoglobin 9.3 9.4 Oxygen Delivery Device VENTILATOR VENTILATOR Blood Gas Ventilator Setting AC/14 /500 AC/14500/PEEP5 PEEP5 Blood Gas Inspired Oxygen 100 100 Urine Color LIGHT-YELLOW Urine Turbidity CLEAR Urine pH 5.5 Urine Specific [place] 1.011 Urine Protein 100 Urine Glucose (UA) NEG Urine Ketones NEG Urine Occult Blood TRACE Urine Nitrite NEG Urine Bilirubin NEG Urine Urobilinogen LESS THAN 2.0 Urine Leukocyte Esterase NEG Urine RBC 4 Urine WBC 1 Urine Bacteria RARE Urine Mucus FEW Microscopic Urinalysis Comment CULT NOT INDICATED Date/Time Procedure Status Source Growth 11/25/16 00:05 Aerobic Blood Culture Received Blood Peripheral Pending 11/25/16 00:05 Anaerobic Blood Culture Received Blood Peripheral Pending Result Diagram: 11/25/16 0005 11/25/16 0005 Imaging Last 24 hours Impressions Chest X-Ray 11/24/16 [id number] Signed Impressions: Service Date/Time: Friday, November 25, 2016 00:37 - CONCLUSION: 1. Worsening bilateral airspace disease. 2. Adequate placement of endotracheal tube. Bruno Urban MD Assessment and Plan Problem List: (1) Respiratory failure ICD Code: J96.90 Status: Acute (2) Anticoagulated on Coumadin ICD Code: Z51.81 Status: Acute (3) CHF exacerbation ICD Code: I50.9 Status: Acute (4) Diabetes mellitus ICD Code: E11.9 Status: Chronic Assessment and Plan Respiratory failure - Pulmonary edema - CHF exacerbation - Mechanical ventilation - Patient remained hypoxemic on 100% on ACVC mode hypoxemic to 89% - Doing quite well on the APRV CHF exacerbation - Hold HALINA inhibitor due to hyperkalemia - Continue beta carie - Follow-up trend of troponins - Series of EKGs Diabetes - Hold by mouth meds - Glucerna for tube feeds - Insulin sliding scale - Levemir 35 units twice a day per home regimen Diabetic neuropathy - Gabapentin Dyslipidemia - Atorvastatin DVT GI prophylaxis - Subcutaneous heparin and Pepcid Critical Care: The total critical care time was 35 minutes. Time to perform other separately billable procedures was not included in the critical care time. Perfecto Montemayor MD Nov 25, 2016 03:58
[2016-11-25] MEDS ORDERED: CHLORHEXIDINE GLUCONATE 2 % 1 PACK (2 CLOTHS) TOP SCH (04:00)
[2016-11-25 04:26] LABS: BLOOD GAS CARBOXYHEMOGLOBIN 0.5 % (0-4); BLOOD GAS HCO3 21 mmol/L (22-26); BLOOD GAS METHEMOGLOBIN 1.2 % (0-2); BLOOD GAS O2 HGB SATURATION 97 % (90-100); BLOOD GAS PCO2 40 mmHg (38-42); BLOOD GAS PO2 285 mmHG (61-120); BLOOD GAS TOTAL HGB 11.2 G/DL (12.0-16.0); CRITICAL VALUE NO; OXYGEN DEVICE VENTILATOR; TEMP CORR TO 98.6
[2016-11-25 04:27] LABS: DRAW SITE LT RADIAL; FIO2 100 %; NUMBER OF ARTERIAL PUNCTURES 2; STAT YES; ULNAR PULSE PRESENT; VENT SETTINGS APRC/BIPHASIC
[2016-11-25] MEDS ORDERED: LISINOPRIL 20 MG TAB PO SCH (09:00)
[2016-11-25] MEDS ORDERED: INSULIN DETEMIR 100 UNITS/ML VIAL SQ SCH (09:00)
[2016-11-25] MEDS: GABAPENTIN 300 MG CAP PO SCH ×2 (09:00→21:14)
[2016-11-25] MEDS: ARTIFICIAL TEARS OPTH SOLN 15 ML BTL EACH EYE SCH ×3 (09:00→18:00)
[2016-11-25] MEDS ORDERED: BUMETANIDE 1 MG TAB PO SCH (09:00)
[2016-11-25] MEDS ORDERED: WARFARIN SOD 6 MG TAB PO SCH (09:00)
[2016-11-25] MEDS: CARVEDILOL 12.5 MG TAB PO SCH ×2 (09:00→21:00)
[2016-11-25] MEDS: SODIUM CHLORIDE 0.9% FLUSH 10 ML FLUSH SCH ×2 (09:00→21:00)
[2016-11-25] MEDS ORDERED: JUVEN POWDER 1 PACK G-TUBE SCH (09:00)
[2016-11-25] MEDS: FAMOTIDINE 20 MG/2 ML VIAL IV PUSH SCH ×2 (10:02→21:14)
[2016-11-25] MEDS ORDERED: DEXTROSE 50% IN WATER 50 ML VIAL(D50) IV PUSH PRN (12:45)
[2016-11-25] MEDS ORDERED: GLUCAGON 1 MG/ML VIAL OTHER PRN (12:45)
[2016-11-25] MEDS: INSULIN NovoLIN REGULAR SUPPLEMENTAL SCALE SQ SCH ×2 (13:00→19:00)
--- NOTE | 2016-11-25 13:18 | RADRPT ---
EXAM DATE/TIME: 11/25/2016 12:48 [facility] COMPARISON: CHEST SINGLE AP, November 25, 2016, 0:37. INDICATIONS : Unresponsive MEDICAL HISTORY : Diabetes mellitus type II. Chronic obstructive pulmonary disease. Congestive heart failure. SURGICAL HISTORY : None. ENCOUNTER: Subsequent ACUITY: 2 days PAIN SCORE: Non-responsive. LOCATION: Bilateral chest FINDINGS: ET tube and nasogastric tube are in good position. There are moderate bibasilar parenchymal changes evident worse on the right than the left. Aeration is improved when compared to 11/25. CONCLUSION: 1. Interval improvement. 2. Consistent bibasilar consolidative changes are noted much worse on the left than the right. Sarmad Timmons MD FACR on November 25, 2016 at 13:12 Board Certified Radiologist. This report was verified electronically.
--- NOTE | 2016-11-25 13:56 | EKG ---
Date Performed: 11/25/2016 Time Performed: 00:04:09 PTAGE: 51 years EKG: Sinus rhythm Poor R wave progression, can not rule out anterior injury age undetermined, but largely unchanged fr om prior tracing NORMAL ECG PREVIOUS TRACING : 09/04/2016 06.58 DOCTOR: Reece Esquivel Interpretating Date/Time 11/25/2016 13:55:48
[2016-11-25] MEDS: PIPERACIL-TAZO 3.375 GM PREMIX 50 ML IV SCH ×2 (14:00→21:15)
--- NOTE | 2016-11-25 14:00 | EKG ---
Date Performed: 11/25/2016 Time Performed: 06:07:42 PTAGE: 51 years EKG: SINUS BRADYCARDIA WITH OCCASIONAL VENTRICULAR PREMATURE COMPLEXES NONSPECIFIC T-WAVE ABNORM ALITY Ventricular ectopy is new since prior tracing otherwise largely unchanged BORDERLINE ECG PREVIOUS TRACING : 11/25/2016 00.04 DOCTOR: Reece Esquivel Interpretating Date/Time 11/25/2016 13:58:46
[2016-11-25 14:06] LABS: CREATINE KINASE 383 U/L (26-192)
[2016-11-25 14:19] LABS: CKMB 3.2 NG/ML (0.5-3.6)
[2016-11-25 14:47] LABS: AUTOMATED NEUTROPHIL # 6.3 TH/MM3 (1.8-7.7); BASOPHIL # 0.1 TH/MM3 (0-0.2); BASOPHIL % 0.9 % (0.0-2.0); EOSINOPHIL # 0.1 TH/MM3 (0-0.4); EOSINOPHIL % 0.7 % (0.0-4.0); HEMATOCRIT 28.7 % (35.0-46.0); LYMPH % 20.5 % (9.0-44.0); LYMPHOCYTE # 1.9 TH/MM3 (1.0-4.8); MEAN CELL VOLUME 70.2 FL (80.0-100.0); MEAN CORPUSCULAR HEMOGLOBIN 22.8 PG (27.0-34.0); MEAN CORPUSCULAR HGB CONC 32.5 % (32.0-36.0); MONO % 9.8 % (0.0-8.0); NEUT % 68.1 % (16.0-70.0); PLATELET COUNT 344 TH/MM3 (150-450); RED BLOOD COUNT 4.09 MIL/MM3 (4.00-5.30); RED CELL DISTRIBUTION WIDTH 17.7 % (11.6-17.2)
[2016-11-25 14:48] LABS: HEMO FLAGS AUTO DIFF
[2016-11-25 14:49] LABS: WHITE BLOOD COUNT 9.3 TH/MM3 (4.0-11.0)
[2016-11-25 15:01] LABS: ANION GAP 10 MEQ/L (5-15); BICARBONATE 21.5 MEQ/L (21.0-32.0); BLOOD UREA NITROGEN 50 MG/DL (7-18); CHLORIDE 112 MEQ/L (98-107); GLOMERULAR FILTRATION RATE 38 ML/MIN (>89); SODIUM (NA) 143 MEQ/L (136-145)
[2016-11-25 15:03] LABS: POTASSIUM 4.7 MEQ/L (3.5-5.1)
[2016-11-25] MEDS: RESP: ALBUTEROL 2.5 MG/IPRATROPIUM 0.5 MG NEB (SCH) NEB (15:05)
[2016-11-25 15:08] LABS: BLOOD GAS BASE EXCESS -3.6 mmol/L (-2-2); BLOOD GAS CARBOXYHEMOGLOBIN 1.2 % (0-4); BLOOD GAS HCO3 21 mmol/L (22-26); BLOOD GAS METHEMOGLOBIN 1.8 % (0-2); BLOOD GAS O2 HGB SATURATION 86 % (90-100); BLOOD GAS OXYGEN CONTENT 10.6 Vol % (12.0-20.0); BLOOD GAS PCO2 37 mmHg (38-42); BLOOD GAS PO2 61 mmHg (61-120); BLOOD GAS TOTAL HGB 8.7 G/DL (12.0-16.0); CRITICAL VALUE YES; OXYGEN DEVICE VENTILATOR; TEMP CORR TO 98.6
[2016-11-25 15:09] LABS: DRAW SITE RT RADIAL; FIO2 40 %; NUMBER OF ARTERIAL PUNCTURES 1; STAT NO; ULNAR PULSE PRESENT; VENT SETTINGS A/C 550/16/5PEEP
[2016-11-25] MEDS ORDERED: CHLORHEXIDINE GLUCONATE 2 % 1 PACK (2 CLOTHS)(extra cloths) TOPICAL PRN (15:15)
[2016-11-25 15:24] LABS: OVALOCYTES 1+ (NORMAL); PLATELET ESTIMATE SMEAR NORMAL (NORMAL); PLATELET MORPHOLOGY NORMAL (NORMAL); SCAN/DIFF AUTO DIFF CONFIRMED
[2016-11-25] MEDS: SODIUM CHLOR 0.9% 1000 ML INJ 1,000 ML IV SCH (16:00)
[2016-11-25] MEDS: ATORVASTATIN 40 MG TAB PO SCH (21:14)
[2016-11-26] VITALS (18 sets, daily range): BP systolic 144–199; BP diastolic 65–83; PULSE 49–70; RESP 16–25; TEMP 98.7–100.4; O2SAT 92–100
[2016-11-26] MEDS: PROPOFOL 1000 MG/100 ML INJ 100 ML IV SCH (00:39)
[2016-11-26] MEDS: INSULIN NovoLIN REGULAR SUPPLEMENTAL SCALE SQ SCH ×4 (01:00→19:00)
[2016-11-26] MEDS: PIPERACIL-TAZO 3.375 GM PREMIX 50 ML IV SCH ×4 (01:53→20:30)
[2016-11-26 03:42] LABS: AUTOMATED NEUTROPHIL # 5.9 TH/MM3 (1.8-7.7); BASOPHIL % 0.4 % (0.0-2.0); EOSINOPHIL # 0.2 TH/MM3 (0-0.4); EOSINOPHIL % 1.8 % (0.0-4.0); HEMATOCRIT 28.4 % (35.0-46.0); LYMPH % 19.6 % (9.0-44.0); LYMPHOCYTE # 1.6 TH/MM3 (1.0-4.8); MEAN CELL VOLUME 69.7 FL (80.0-100.0); MEAN CORPUSCULAR HEMOGLOBIN 22.2 PG (27.0-34.0); MEAN CORPUSCULAR HGB CONC 31.8 % (32.0-36.0); MONO % 8.3 % (0.0-8.0); NEUT % 69.9 % (16.0-70.0); PLATELET COUNT 376 TH/MM3 (150-450); RED BLOOD COUNT 4.08 MIL/MM3 (4.00-5.30); RED CELL DISTRIBUTION WIDTH 17.4 % (11.6-17.2); WHITE BLOOD COUNT 8.4 TH/MM3 (4.0-11.0)
[2016-11-26 03:46] LABS: HEMO FLAGS AUTO DIFF
[2016-11-26 03:51] LABS: INTERNATIONAL NORMALIZED RATIO 2.9 RATIO
[2016-11-26] MEDS: CHLORHEXIDINE GLUCONATE 2 % 1 PACK (2 CLOTHS)(taper/protocol) TOPICAL SCH (04:00)
[2016-11-26 04:07] LABS: ALKALINE PHOSPHATASE 86 U/L (45-117); ALT (GPT) 16 U/L (10-53); ANION GAP 10 MEQ/L (5-15); AST (GOT) 30 U/L (15-37); BICARBONATE 24.5 MEQ/L (21.0-32.0); BLOOD UREA NITROGEN 44 MG/DL (7-18); CHLORIDE 113 MEQ/L (98-107); GLOMERULAR FILTRATION RATE 46 ML/MIN (>89); POTASSIUM 3.7 MEQ/L (3.5-5.1); SODIUM (NA) 147 MEQ/L (136-145); TOTAL BILIRUBIN ADULT 0.4 MG/DL (0.2-1.0)
[2016-11-26] MEDS: RESP: ALBUTEROL 2.5 MG/IPRATROPIUM 0.5 MG NEB (SCH) NEB ×4 (04:18→21:05)
[2016-11-26 06:55] LABS: PLATELET ESTIMATE SMEAR NORMAL (NORMAL); PLATELET MORPHOLOGY NORMAL (NORMAL); SCAN/DIFF AUTO DIFF CONFIRMED
--- NOTE | 2016-11-26 07:45 | HHI.CCPN ---
Subjective Remarks/Hospital Course 51 year old female presents with shortness of breath. The patient arrives intubated due to respiratory failure. According to ambulance services when they arrived at the patient's bedside the patient reported a history of congestive heart failure. She was noted to be in respiratory distress with tachypnea with a rate in the 50s and was noted to have significant lower extremity edema. The patient was given a trial of CPAP after a spray of nitroglycerin was administered for elevated blood pressure. She was emergently intubated by EMT. 11/26 Patient was sedated with Diprivan, Fentanyl and intubated however she was just self extubated and now is on 4L oxygen with sats 96%.. Afebrile. Renal function improving with Cr: 1.45 from 1.71 Objective Vital Signs Date Time Temp Pulse Resp B/P Pulse Ox O2 Delivery O2 Flow Rate FiO2 11/26/16 07:19 96 Nasal Cannula 4.00 11/26/16 06:00 62 11/26/16 04:19 45 11/26/16 04:00 98.7 16 148/65 Intake and Output 11/25/16 11/25/16 11/26/16 08:00 16:00 00:00 Intake Total 574 ml Output Total 1600 ml 1000 ml 2500 ml Balance -1600 ml -1000 ml -1926 ml Result Diagram: 11/26/16 0321 11/26/16 0321 Other Results Laboratory Tests Test 11/25/16 11/25/16 11/25/16 11/25/16 13:15 13:59 14:32 15:00 Total Creatine Kinase 383 U/L Creatine Kinase MB 3.2 NG/ML Creatine Kinase MB % 0.8 % Troponin I LESS THAN 0.02 LESS THAN 0.02 NG/ML NG/ML Nasal Screen MRSA (PCR) NEGATIVE White Blood Count 9.3 TH/MM3 Red Blood Count 4.09 MIL/MM3 Hemoglobin 9.3 GM/DL Hematocrit 28.7 % Mean Corpuscular Volume 70.2 FL Mean Corpuscular Hemoglobin 22.8 PG Mean Corpuscular Hemoglobin 32.5 % Concent Red Cell Distribution Width 17.7 % Platelet Count 344 TH/MM3 Mean Platelet Volume 8.7 FL Neutrophils (%) (Auto) 68.1 % Lymphocytes (%) (Auto) 20.5 % Monocytes (%) (Auto) 9.8 % Eosinophils (%) (Auto) 0.7 % Basophils (%) (Auto) 0.9 % Neutrophils # (Auto) 6.3 TH/MM3 Lymphocytes # (Auto) 1.9 TH/MM3 Monocytes # (Auto) 0.9 TH/MM3 Eosinophils # (Auto) 0.1 TH/MM3 Basophils # (Auto) 0.1 TH/MM3 CBC Comment AUTO DIFF Differential Comment AUTO DIFF CONFIRMED Platelet Estimate NORMAL Platelet Morphology Comment NORMAL Ovalocytes 1+ Sodium Level 143 MEQ/L Potassium Level 4.7 MEQ/L Chloride Level 112 MEQ/L Carbon Dioxide Level 21.5 MEQ/L Anion Gap 10 MEQ/L Blood Urea Nitrogen 50 MG/DL Creatinine 1.71 MG/DL Estimat Glomerular Filtration 38 ML/MIN Rate Random Glucose 193 MG/DL Calcium Level 8.6 MG/DL Blood Gas Puncture Site RT RADIAL Blood Gas Patient Temperature 98.6 Blood Gas HCO3 21 mmol/L Blood Gas Base Excess -3.6 mmol/L Blood Gas Oxygen Saturation 86 % Arterial Blood pH 7.37 Arterial Blood Partial 37 mmHg Pressure CO2 Arterial Blood Partial 61 mmHg Pressure O2 Arterial Blood Oxygen Content 10.6 Vol % Arterial Blood 1.2 % Carboxyhemoglobin Arterial Blood Methemoglobin 1.8 % Blood Gas Hemoglobin 8.7 G/DL Oxygen Delivery Device VENTILATOR Blood Gas Ventilator Setting A/C 550/16/5PEEP Blood Gas Inspired Oxygen 40 % Test 11/26/16 03:21 White Blood Count 8.4 TH/MM3 Red Blood Count 4.08 MIL/MM3 Hemoglobin 9.1 GM/DL Hematocrit 28.4 % Mean Corpuscular Volume 69.7 FL Mean Corpuscular Hemoglobin 22.2 PG Mean Corpuscular Hemoglobin 31.8 % Concent Red Cell Distribution Width 17.4 % Platelet Count 376 TH/MM3 Mean Platelet Volume 8.2 FL Neutrophils (%) (Auto) 69.9 % Lymphocytes (%) (Auto) 19.6 % Monocytes (%) (Auto) 8.3 % Eosinophils (%) (Auto) 1.8 % Basophils (%) (Auto) 0.4 % Neutrophils # (Auto) 5.9 TH/MM3 Lymphocytes # (Auto) 1.6 TH/MM3 Monocytes # (Auto) 0.7 TH/MM3 Eosinophils # (Auto) 0.2 TH/MM3 Basophils # (Auto) 0.0 TH/MM3 CBC Comment AUTO DIFF Differential Comment AUTO DIFF CONFIRMED Platelet Estimate NORMAL Platelet Morphology Comment NORMAL Prothrombin Time 33.0 SEC Prothromb Time International 2.9 RATIO Ratio Sodium Level 147 MEQ/L Potassium Level 3.7 MEQ/L Chloride Level 113 MEQ/L Carbon Dioxide Level 24.5 MEQ/L Anion Gap 10 MEQ/L Blood Urea Nitrogen 44 MG/DL Creatinine 1.45 MG/DL Estimat Glomerular Filtration 46 ML/MIN Rate Random Glucose 75 MG/DL Calcium Level 8.8 MG/DL Phosphorus Level 3.6 MG/DL Magnesium Level 2.0 MG/DL Total Bilirubin 0.4 MG/DL Aspartate Amino Transf 30 U/L (AST/SGOT) Alanine Aminotransferase 16 U/L (ALT/SGPT) Alkaline Phosphatase 86 U/L Total Protein 6.9 GM/DL Albumin 2.6 GM/DL Imaging Last Impressions Chest X-Ray 11/25/16 0000 Signed Impressions: Service Date/Time: Friday, November 25, 2016 12:48 - CONCLUSION: 1. Interval improvement. 2. Consistent bibasilar consolidative changes are noted much worse on the left than the right. Sarmad Timmons MD FACR Objective Remarks GENERAL: Patient is lying in bed in NAD SKIN: Warm and dry. HEAD: Normocephalic. EYES: No scleral icterus. No injection or drainage. NECK: Supple, trachea midline. No JVD or lymphadenopathy. CARDIOVASCULAR: Regular rate and rhythm without murmurs, gallops, or rubs. RESPIRATORY: Breath sounds equal bilaterally. No accessory muscle use. GASTROINTESTINAL: Abdomen soft, non-tender, nondistended. MUSCULOSKELETAL: No cyanosis, + edema. Neuro: Awake and alert A/P Problem List: (1) Respiratory failure ICD Code: J96.90 Status: Acute (2) Anticoagulated on Coumadin ICD Code: Z51.81 Status: Acute (3) CHF exacerbation ICD Code: I50.9 Status: Acute (4) Diabetes mellitus ICD Code: E11.9 Status: Chronic Assessment and Plan 1)Respiratory Insuff 2)B/l pulm infiltrates..ddx: infectious process vs fluid overload. 3)Leukocytosis..resolved 4)Anemia 5)YOU..improved 6)Hx DM 7)Dyslipidemia 8)Coagulopathy 9)Chronic back pain since 2008 Neuro: Awake and alert, monitor neuro stats. Morphine PRN for pain Pulm: Continue with oxygen keep sat >92% Bronchodilators, IS CV: Monitor HR and BP keep MAP>65mmHg On Coreg 12.5mg BID, Lipitor Echo from 09/04 showed EF 45-50% : Monitor renal function, I/O's, electrolytes replacement as needed. On NS@50ml/hr GI: Start PO diet, on Pepcid for GI prophylaxis ID: Continue with abx ( Zosyn)monitor for signs of infections ( Fever, WBC) Follow up on cxs, strep pneumonia and Legionella urinary Ag pending Endo: SSI for glycemic control Heme: Monitor CBC, coags - on Coumadin with INR 2.9 today GI prophylaxis- on Pepcid DVT prophylaxis- on Coumadin with INR 2.9 today Level 3 Problem Qualifiers (1) Respiratory failure: Qualified Code: J96.01 - Acute respiratory failure with hypoxia and hypercapnia Anais Terrell MD Nov 26, 2016 07:45
[2016-11-26] MEDS: ARTIFICIAL TEARS OPTH SOLN 15 ML BTL EACH EYE SCH ×3 (08:08→16:52)
[2016-11-26] MEDS: GABAPENTIN 300 MG CAP PO SCH ×2 (08:17→20:29)
[2016-11-26] MEDS: CARVEDILOL 12.5 MG TAB PO SCH ×2 (08:17→20:29)
[2016-11-26] MEDS: FAMOTIDINE 20 MG/2 ML VIAL IV PUSH SCH ×2 (08:17→21:10)
[2016-11-26] MEDS: DOCUSATE SODIUM 100 MG/10 ML UDC G-TUBE SCH ×2 (08:17→21:00)
[2016-11-26] MEDS: MORPHINE SULFATE 4 MG/ML INJ IV PUSH PRN ×4 (08:18→20:47)
[2016-11-26] MEDS: SODIUM CHLORIDE 0.9% FLUSH 10 ML FLUSH SCH ×2 (08:18→20:30)
[2016-11-26] MEDS: SODIUM CHLOR 0.9% 1000 ML INJ 1,000 ML IV SCH (12:37)
[2016-11-26] MEDS: hydrALAZINE HCL 50 MG TAB PO SCH ×2 (17:03→21:36)
[2016-11-26] MEDS: ATORVASTATIN 40 MG TAB PO SCH (20:29)
[2016-11-26] MEDS: hydrALAZINE HCL 20 MG/ML VIAL IV PUSH PRN (21:10)
--- NOTE | 2016-11-26 21:42 | EKG ---
Date Performed: 11/25/2016 Time Performed: 20:07:01 PTAGE: 51 years EKG: Sinus rhythm WITH OCCASIONAL VENTRICULAR PREMATURE COMPLEXES NONSPECIFIC T-WAVE ABNORMALITY Since previous tracin g, no significant change noted BORDERLINE ECG PREVIOUS TRACING : 11/25/2016 06.07 DOCTOR: Vijaya Rhoades Interpretating Date/Time 11/26/2016 21:40:58
[2016-11-27] VITALS (17 sets, daily range): BP systolic 129–174; BP diastolic 60–77; PULSE 61–81; RESP 20–25; TEMP 98–98.8; O2SAT 93–98
[2016-11-27] MEDS: INSULIN NovoLIN REGULAR SUPPLEMENTAL SCALE SQ SCH ×4 (01:00→18:16)
[2016-11-27] MEDS: PIPERACIL-TAZO 3.375 GM PREMIX 50 ML IV SCH ×4 (01:16→20:16)
[2016-11-27] MEDS: MORPHINE SULFATE 4 MG/ML INJ IV PUSH PRN ×2 (01:16→05:00)
[2016-11-27] MEDS: RESP: ALBUTEROL 2.5 MG/IPRATROPIUM 0.5 MG NEB (SCH) NEB ×4 (04:20→20:43)
[2016-11-27] MEDS: hydrALAZINE HCL 20 MG/ML VIAL IV PUSH PRN (05:00)
[2016-11-27 05:10] LABS: INTERNATIONAL NORMALIZED RATIO 2.1 RATIO; PROTHROMBIN TIME - PATIENT 23.7 SEC (9.8-11.6)
[2016-11-27 05:22] LABS: AUTOMATED NEUTROPHIL # 6.5 TH/MM3 (1.8-7.7); BASOPHIL % 0.3 % (0.0-2.0); EOSINOPHIL # 0.3 TH/MM3 (0-0.4); EOSINOPHIL % 2.9 % (0.0-4.0); HEMATOCRIT 26.9 % (35.0-46.0); LYMPH % 25.2 % (9.0-44.0); LYMPHOCYTE # 2.5 TH/MM3 (1.0-4.8); MEAN CELL VOLUME 70.1 FL (80.0-100.0); MEAN CORPUSCULAR HEMOGLOBIN 22.7 PG (27.0-34.0); MEAN CORPUSCULAR HGB CONC 32.4 % (32.0-36.0); MONO % 6.5 % (0.0-8.0); NEUT % 65.1 % (16.0-70.0); PLATELET COUNT 354 TH/MM3 (150-450); RED BLOOD COUNT 3.84 MIL/MM3 (4.00-5.30); RED CELL DISTRIBUTION WIDTH 17.4 % (11.6-17.2); WHITE BLOOD COUNT 9.9 TH/MM3 (4.0-11.0)
[2016-11-27 05:27] LABS: POTASSIUM 3.7 MEQ/L (3.5-5.1)
[2016-11-27] MEDS: CHLORHEXIDINE GLUCONATE 2 % 1 PACK (2 CLOTHS)(taper/protocol) TOPICAL SCH (05:30)
[2016-11-27 06:04] LABS: HEMO FLAGS AUTO DIFF
[2016-11-27] MEDS: hydrALAZINE HCL 50 MG TAB PO SCH ×3 (06:18→22:28)
--- NOTE | 2016-11-27 06:25 | RADRPT ---
EXAM DATE/TIME: 11/27/2016 04:21 [facility] COMPARISON: CHEST SINGLE AP, November 25, 2016, 12:48. INDICATIONS : Shortness of breath. MEDICAL HISTORY : Diabetes mellitus type II. Chronic obstructive pulmonary disease. Congestive heart failure. SURGICAL HISTORY : None. ENCOUNTER: Subsequent ACUITY: 4 - 6 days PAIN SCORE: Non-responsive. LOCATION: Bilateral chest FINDINGS: Heart size is enlarged and there is a mild pulmonary edema pattern with probable small effusions. Pre vious endotracheal tube and nasogastric tube have been removed. CONCLUSION: Interval extubation. Mild pulmonary edema pattern similar to November 25. Travis Bellamy MD on November 27, 2016 at 6:23 Board Certified Radiologist. This report was verified electronically.
[2016-11-27 07:06] LABS: EOSINOPHILS 3 % (0-4); NEUTROPHIL # MANUAL DIFF 6.7 TH/MM3 (1.8-7.7); POLYS (SEG NEUTROPHILS) 68 % (16-70); WBC DIFF SAMPLE 100
[2016-11-27 07:07] LABS: PLATELET ESTIMATE SMEAR NORMAL (NORMAL); PLATELET MORPHOLOGY NORMAL (NORMAL); SCAN/DIFF FINAL DIFF MANUAL
[2016-11-27] MEDS: SODIUM CHLORIDE 0.9% FLUSH 10 ML FLUSH SCH ×2 (09:00→20:16)
[2016-11-27] MEDS ORDERED: BENZOCAINE 6 MG/MENTHOL 10 MG LOZENGE BUCCAL PRN (09:15)
--- NOTE | 2016-11-27 09:15 | HHI.CCPN ---
Subjective Remarks/Hospital Course 51 year old female presents with shortness of breath. The patient arrives intubated due to respiratory failure. According to ambulance services when they arrived at the patient's bedside the patient reported a history of congestive heart failure. She was noted to be in respiratory distress with tachypnea with a rate in the 50s and was noted to have significant lower extremity edema. The patient was given a trial of CPAP after a spray of nitroglycerin was administered for elevated blood pressure. She was emergently intubated by EMT. 11/26 Patient was sedated with Diprivan, Fentanyl and intubated however she was just self extubated and now is on 4L oxygen with sats 96%.. Afebrile. Renal function improving with Cr: 1.45 from 1.71 11/27 Tmax 100.4 The patient remains on O2 at 4 L nasal cannula. The patient required BiPAP during the night. The patient continues to be hypertensive with a AMAP ranging [id number], systolic blood pressures [id number]. The patient required multiple when necessary dosing of hydralazine last night. Carvedilol dosage was increased this a.m.. Patient tolerating by mouth diet will Hep-Lock IV. Objective Vital Signs Date Time Temp Pulse Resp B/P Pulse Ox O2 Delivery O2 Flow Rate FiO2 11/27/16 08:43 95 Nasal Cannula 3.00 11/27/16 06:00 81 11/27/16 05:05 24 11/27/16 05:00 164/60 11/27/16 04:00 98.8 11/27/16 01:01 35 Intake and Output 11/26/16 11/26/16 11/27/16 08:00 16:00 00:00 Intake Total 270 ml 774 ml 838 ml Output Total 1750 ml 2450 ml 550 ml Balance -1480 ml -1676 ml 288 ml Result Diagram: 11/27/16 0441 11/27/16 0441 Other Results Microbiology Date/Time Procedure Status Source Growth 11/25/16 15:30 Legionella Antigen - Final Complete Urine Catheterized Urine PRESUMPTIVE NEGATIVE FOR LEGIONELLA P... 11/25/16 15:30 Streptococcus pneumoniae Antigen (M - Final Complete Urine Catheterized Urine PRESUMPTIVE NEGATIVE FOR STREPTOCOCCU... Imaging Last Impressions Chest X-Ray 11/25/16 0000 Signed Impressions: Service Date/Time: Friday, November 25, 2016 12:48 - CONCLUSION: 1. Interval improvement. 2. Consistent bibasilar consolidative changes are noted much worse on the left than the right. Sarmad Timmons MD FACR Objective Remarks GENERAL: Patient is lying in bed in NAD SKIN: Warm and dry. HEAD: Normocephalic. EYES: No scleral icterus. No injection or drainage. NECK: Supple, trachea midline. No JVD or lymphadenopathy. Uvula midline CARDIOVASCULAR: Regular rate and rhythm without murmurs, gallops, or rubs. RESPIRATORY: Breath sounds equal bilaterally. No accessory muscle use. Clear to auscultation bilaterally GASTROINTESTINAL: Abdomen soft, non-tender, nondistended. MUSCULOSKELETAL: No cyanosis, + edema. Neuro: GCS 15 Awake and alert A/P Problem List: (1) Respiratory failure ICD Code: J96.90 Status: Acute (2) Anticoagulated on Coumadin ICD Code: Z51.81 Status: Acute (3) CHF exacerbation ICD Code: I50.9 Status: Acute (4) Diabetes mellitus ICD Code: E11.9 Status: Chronic Assessment and Plan 1)Respiratory Insuff 2)B/l pulm infiltrates..ddx: infectious process vs fluid overload. 3)Leukocytosis..resolved 4)Anemia 5)YOU..improved 6)Hx DM 7)Dyslipidemia 8)Coagulopathy 9)Chronic back pain since 2008 10)Obesity Neuro: Awake and alert, monitor neuro stats. Will discontinue Morphine PRN for pain Acetaminophen for pain, avoid sedatives Pulm: Continue with oxygen keep sat >92% Bronchodilators, IS BiPAP at night CV: Monitor HR and BP keep MAP>65mmHg Increase Coreg 25 mg BID, Lipitor Echo from 09/04 showed EF 45-50% Continue hydralazine when necessary every 6 hours for systolic blood pressure greater than 160 : Monitor renal function, I/O's, electrolytes replacement as needed. Discontinue NS@50ml/hr GI: Start PO diet, on Pepcid for GI prophylaxis ID: Continue with abx ( Zosyn)monitor for signs of infections ( Fever, WBC) Follow up on cxs, strep pneumonia and Legionella urinary Ag -negative Endo: SSI for glycemic control Heme: Monitor CBC, coags - on Coumadin with INR 2.1 GI prophylaxis- on Pepcid DVT prophylaxis- on Coumadin, SCDs Level 3 Physician Margy Tang Problem Qualifiers (1) Respiratory failure: Qualified Code: J96.01 - Acute respiratory failure with hypoxia and hypercapnia Margy Tang MD Nov 27, 2016 09:15
[2016-11-27] MEDS: GABAPENTIN 300 MG CAP PO SCH ×2 (09:23→21:05)
[2016-11-27] MEDS: FAMOTIDINE 20 MG/2 ML VIAL IV PUSH SCH ×2 (09:23→21:04)
[2016-11-27] MEDS: DOCUSATE SODIUM 100 MG/10 ML UDC G-TUBE SCH ×2 (09:24→21:00)
[2016-11-27] MEDS: oxyCODONE/ACETAMINOPHEN 10 MG/325 MG TAB PO PRN ×3 (11:52→20:16)
[2016-11-27] MEDS: WARFARIN SOD 5 MG TAB PO SCH (16:03)
[2016-11-27] MEDS: CARVEDILOL 12.5 MG TAB PO SCH (21:04)
[2016-11-27] MEDS: ATORVASTATIN 40 MG TAB PO SCH (21:05)
[2016-11-28] VITALS (15 sets, daily range): BP systolic 118–156; BP diastolic 56–66; PULSE 55–73; RESP 14–29; TEMP 97.9–98.7; O2SAT 95–100
[2016-11-28] MEDS: INSULIN NovoLIN REGULAR SUPPLEMENTAL SCALE SQ SCH ×4 (00:07→18:52)
[2016-11-28] MEDS: oxyCODONE/ACETAMINOPHEN 10 MG/325 MG TAB PO PRN ×6 (00:08→21:01)
[2016-11-28] MEDS: RESP: ALBUTEROL 2.5 MG/IPRATROPIUM 0.5 MG NEB (SCH) NEB ×4 (03:25→22:04)
[2016-11-28] MEDS: PIPERACIL-TAZO 3.375 GM PREMIX 50 ML IV SCH ×2 (03:30→08:03)
[2016-11-28] MEDS: CHLORHEXIDINE GLUCONATE 2 % 1 PACK (2 CLOTHS)(taper/protocol) TOPICAL SCH (04:00)
[2016-11-28 05:01] LABS: HEMATOCRIT 29.5 % (35.0-46.0); MEAN CELL VOLUME 71.1 FL (80.0-100.0); MEAN CORPUSCULAR HGB CONC 30.9 % (32.0-36.0); PLATELET COUNT 362 TH/MM3 (150-450); RED BLOOD COUNT 4.15 MIL/MM3 (4.00-5.30); RED CELL DISTRIBUTION WIDTH 17.8 % (11.6-17.2)
[2016-11-28 05:04] LABS: REVIEW FLAG FINAL
[2016-11-28 05:05] LABS: INTERNATIONAL NORMALIZED RATIO 1.7 RATIO; PROTHROMBIN TIME - PATIENT 19.6 SEC (9.8-11.6)
[2016-11-28 05:27] LABS: MAGNESIUM 2.3 MG/DL (1.5-2.5); POTASSIUM 4.2 MEQ/L (3.5-5.1)
[2016-11-28] MEDS: hydrALAZINE HCL 50 MG TAB PO SCH ×3 (06:14→21:01)
[2016-11-28] MEDS: GABAPENTIN 300 MG CAP PO SCH ×2 (08:04→20:19)
[2016-11-28] MEDS: DOCUSATE SODIUM 100 MG/10 ML UDC G-TUBE SCH ×2 (08:04→20:17)
[2016-11-28] MEDS: CARVEDILOL 12.5 MG TAB PO SCH ×2 (08:04→20:18)
[2016-11-28] MEDS: SODIUM CHLORIDE 0.9% FLUSH 10 ML FLUSH SCH ×2 (08:04→20:17)
[2016-11-28] MEDS: FAMOTIDINE 20 MG/2 ML VIAL IV PUSH SCH (08:05)
--- NOTE | 2016-11-28 10:37 | HHI.CCPN ---
Subjective Remarks/Hospital Course 51 year old female presents with shortness of breath. The patient arrives intubated due to respiratory failure. According to ambulance services when they arrived at the patient's bedside the patient reported a history of congestive heart failure. She was noted to be in respiratory distress with tachypnea with a rate in the 50s and was noted to have significant lower extremity edema. The patient was given a trial of CPAP after a spray of nitroglycerin was administered for elevated blood pressure. She was emergently intubated by EMT. 11/26 Patient was sedated with Diprivan, Fentanyl and intubated however she was just self extubated and now is on 4L oxygen with sats 96%.. Afebrile. Renal function improving with Cr: 1.45 from 1.71 11/27 Tmax 100.4 The patient remains on O2 at 4 L nasal cannula. The patient required BiPAP during the night. The patient continues to be hypertensive with a AMAP ranging [id number], systolic blood pressures [id number]. The patient required multiple when necessary dosing of hydralazine last night. Carvedilol dosage was increased this a.m.. Patient tolerating by mouth diet will Hep-Lock IV. 11/28: doing much better. afebrile. normal wbc. oob this morning. tolerating diet. bp under much better control. Objective Vital Signs Date Time Temp Pulse Resp B/P Pulse Ox O2 Delivery O2 Flow Rate FiO2 11/28/16 09:08 98 Nasal Cannula 3.00 11/28/16 06:00 61 11/28/16 04:55 118/56 11/28/16 04:00 97.9 20 11/27/16 01:01 35 Intake and Output 11/27/16 11/27/16 11/28/16 08:00 16:00 00:00 Intake Total 514 ml 703 ml 717 ml Output Total 700 ml 850 ml 475 ml Balance -186 ml -147 ml 242 ml Result Diagram: 11/28/16 0424 11/28/16 0424 Other Results Microbiology Date/Time Procedure Status Source Growth 11/25/16 15:30 Gram Stain - Final Complete Sputum Endotracheal 11/25/16 15:30 Sputum Culture - Final Complete Sputum Endotracheal RARE GROWTH NORMAL RESPIRATORY ALLEY 11/25/16 15:30 Legionella Antigen - Final Complete Urine Catheterized Urine PRESUMPTIVE NEGATIVE FOR LEGIONELLA P... 11/25/16 15:30 Streptococcus pneumoniae Antigen (M - Final Complete Urine Catheterized Urine PRESUMPTIVE NEGATIVE FOR STREPTOCOCCU... Imaging Last Impressions Chest X-Ray 11/25/16 0000 Signed Impressions: Service Date/Time: Friday, November 25, 2016 12:48 - CONCLUSION: 1. Interval improvement. 2. Consistent bibasilar consolidative changes are noted much worse on the left than the right. Sarmad Timmons MD FACR Objective Remarks GENERAL: Patient is sitting in chair in NAD SKIN: Warm and dry. HEAD: Normocephalic. EYES: No scleral icterus. No injection or drainage. NECK: trachea midline. No JVD CARDIOVASCULAR: Regular rate and rhythm RESPIRATORY: Breath sounds equal bilaterally. No accessory muscle use. Clear to auscultation bilaterally GASTROINTESTINAL: Abdomen soft, non-tender, nondistended. MUSCULOSKELETAL: No cyanosis, + edema. Neuro: GCS 15 Awake and alert A/P Problem List: (1) Respiratory failure ICD Code: J96.90 Status: Acute (2) Anticoagulated on Coumadin ICD Code: Z51.81 Status: Acute (3) CHF exacerbation ICD Code: I50.9 Status: Acute (4) Diabetes mellitus ICD Code: E11.9 Status: Chronic Assessment and Plan 1)Respiratory Insuff 2)B/l pulm infiltrates..ddx: infectious process vs fluid overload. 3)Leukocytosis..resolved 4)Anemia 5)YOU..improved 6)Hx DM 7)Dyslipidemia 8)Coagulopathy 9)Chronic back pain since 2008 10)Obesity Neuro: Awake and alert, monitor neuro stats. Acetaminophen for pain, avoid sedatives Pulm: Continue with oxygen keep sat >92% Bronchodilators, IS BiPAP at night OOB, walking three times daily PT eval. CV: Monitor HR and BP keep MAP>65mmHg Coreg 25 mg BID, Lipitor Echo from 09/04 showed EF 45-50% hydralazine 50mg po q8hr blood presure under better control. : Monitor renal function, I/O's, electrolytes replacement as needed. d/c hernandez. GI: tolerating regular diet, on Pepcid for GI prophylaxis ID: d/c Zosyn (48h negative cultures) Endo: SSI for glycemic control Heme: Monitor CBC, coags - on Coumadin with INR 2.1 GI prophylaxis- on Pepcid DVT prophylaxis- on Coumadin, SCDs Dispo: transfer to floor with hospitalist following. Problem Qualifiers (1) Respiratory failure: Qualified Code: J96.01 - Acute respiratory failure with hypoxia and hypercapnia Bill Hollis MD Nov 28, 2016 10:36
[2016-11-28] MEDS: FUROSEMIDE 20 MG TAB PO SCH (11:18)
[2016-11-28] MEDS ORDERED: WARFARIN SOD 1 MG TAB PO SCH (16:00)
[2016-11-28] MEDS: WARFARIN SOD 5 MG TAB PO SCH (16:46)
[2016-11-28] MEDS: ATORVASTATIN 40 MG TAB PO SCH (20:18)
[2016-11-29] VITALS (12 sets, daily range): BP systolic 132–160; BP diastolic 59–70; PULSE 54–67; RESP 15–31; TEMP 98.7–99; O2SAT 94–98
[2016-11-29] MEDS: INSULIN NovoLIN REGULAR SUPPLEMENTAL SCALE SQ SCH ×4 (00:34→21:03)
[2016-11-29] MEDS: oxyCODONE/ACETAMINOPHEN 10 MG/325 MG TAB PO PRN ×5 (01:15→20:40)
[2016-11-29] MEDS: CHLORHEXIDINE GLUCONATE 2 % 1 PACK (2 CLOTHS)(taper/protocol) TOPICAL SCH (03:03)
[2016-11-29] MEDS: RESP: ALBUTEROL 2.5 MG/IPRATROPIUM 0.5 MG NEB (SCH) NEB ×4 (03:27→21:15)
[2016-11-29 05:24] LABS: INTERNATIONAL NORMALIZED RATIO 1.5 RATIO; PROTHROMBIN TIME - PATIENT 17.1 SEC (9.8-11.6)
[2016-11-29 05:30] LABS: HEMATOCRIT 27.2 % (35.0-46.0); MEAN CELL VOLUME 70.1 FL (80.0-100.0); MEAN CORPUSCULAR HEMOGLOBIN 22.5 PG (27.0-34.0); MEAN CORPUSCULAR HGB CONC 32.1 % (32.0-36.0); PLATELET COUNT 339 TH/MM3 (150-450); RED BLOOD COUNT 3.88 MIL/MM3 (4.00-5.30); RED CELL DISTRIBUTION WIDTH 17.3 % (11.6-17.2); WHITE BLOOD COUNT 6.8 TH/MM3 (4.0-11.0)
[2016-11-29 05:32] LABS: REVIEW FLAG FINAL
[2016-11-29 05:35] LABS: POTASSIUM 4.3 MEQ/L (3.5-5.1)
[2016-11-29] MEDS: hydrALAZINE HCL 50 MG TAB PO SCH ×3 (06:54→20:39)
[2016-11-29] MEDS: FUROSEMIDE 20 MG TAB PO SCH (07:40)
[2016-11-29] MEDS: GABAPENTIN 300 MG CAP PO SCH ×2 (07:40→20:39)
[2016-11-29] MEDS: CARVEDILOL 12.5 MG TAB PO SCH ×2 (07:40→20:40)
[2016-11-29] MEDS: DOCUSATE SODIUM 100 MG/10 ML UDC G-TUBE SCH ×2 (07:41→20:40)
[2016-11-29] MEDS: SODIUM CHLORIDE 0.9% FLUSH 10 ML FLUSH SCH ×2 (08:23→20:46)
--- NOTE | 2016-11-29 15:10 | HHI.PR ---
Subjective Remarks Follow-up for shortness of breath Discussed with RN, did not BiPAP overnight, on nasal cannula, patient feels a lot better, no nausea or vomiting, denies any chest pain. Bilateral lower extremity swelling is unchanged. Objective Vitals Vital Signs Date Time Temp Pulse Resp B/P Pulse Ox O2 Delivery O2 Flow Rate FiO2 11/29/16 12:00 55 11/29/16 12:00 98.9 55 19 155/66 98 11/29/16 10:00 57 11/29/16 08:40 98 Nasal Cannula 2.00 11/29/16 08:00 63 11/29/16 08:00 98.7 63 31 142/59 96 11/29/16 07:00 93 Nasal Cannula 3.00 11/29/16 02:00 64 11/29/16 00:00 98.9 61 20 160/67 97 11/29/16 00:00 61 11/28/16 22:07 96 Nasal Cannula 3.00 11/28/16 22:00 65 11/28/16 20:00 73 11/28/16 20:00 93 Nasal Cannula 3.00 11/28/16 20:00 98.6 57 14 153/65 100 11/28/16 18:00 73 11/28/16 18:00 98.6 59 14 156/66 100 11/28/16 16:00 59 I/O 11/28/16 11/28/16 11/28/16 11/29/16 11/29/16 11/29/16 07:00 15:00 23:00 07:00 15:00 23:00 Intake Total 441 ml 490 ml 500 ml Output Total 325 ml 1100 ml Balance 116 ml -610 ml 500 ml Intake Oral 360 ml 420 ml 500 ml IV Total 81 ml 70 ml Output Urine Total 325 ml 1100 ml # Voids 1 # Bowel Movements 1 0 Result Diagram: 11/29/16 04511/29/16 0451 Objective Remarks GENERAL: Patient is sitting in chair in NAD, on nasal cannula. SKIN: Warm and dry. HEAD: Normocephalic. EYES: No scleral icterus. No injection or drainage. NECK: trachea midline. No JVD CARDIOVASCULAR: Regular rate and rhythm RESPIRATORY: Breath sounds equal bilaterally. No wheezing. GASTROINTESTINAL: Abdomen soft, non-tender, nondistended. MUSCULOSKELETAL: No cyanosis, + 1+ edema. Neuro: Alert awake and oriented 3, no focal deficits A/P Assessment and Plan This is a 51-year-old female who presented to the hospital with shortness of breath Acute respiratory failure secondary to COPD exacerbation-initially intubated, extubated 11/26/16, now on nasal cannula. Continue incentive spirometry, bronchodilators, off BiPAP, continue ambulation, physical therapy evaluation. Low-dose oral steroids. Continue Lasix orally, will give an extra dose, monitor urine output. Transfer to [facility], off antibiotics. History of systolic congestive heart failure-continue Lasix, extra Lasix as above, check BMP, continue Coreg, Lipitor. Echo from 09/04 showed EF 45-50%, monitor urine output, Atrial fibrillation-continue Coumadin, monitor INR daily Chronic kidney disease stage III-Baseline creatinine around 1.4, monitor BMP while in diuresis. Diabetes mellitus-continue sliding scale insulin, hold oral hypoglycemic agents , restart Levemir at the lower dose Hypertension-continue hydralazine, Coreg, restart Procardia. GI prophylaxis- on Pepcid DVT prophylaxis- on Coumadin, SCDs Discharge Planning Discharged home Friday or Friday. Wendie Whitmore MD Nov 29, 2016 15:09
[2016-11-29] MEDS ORDERED: FUROSEMIDE 20 MG/2 ML VIAL IV PUSH ONE (15:15)
[2016-11-29] MEDS ORDERED: WARFARIN SOD 7.5 MG TAB PO SCH (16:00)
[2016-11-29] MEDS: ATORVASTATIN 40 MG TAB PO SCH (20:39)
[2016-11-29] MEDS ORDERED: INSULIN DETEMIR 100 UNITS/ML VIAL SQ SCH (21:00)
[2016-11-30 00:42] VITALS: BP 177/72; PULSE 64; RESP 18; TEMP 98.4; O2SAT 93
[2016-11-30] MEDS: oxyCODONE/ACETAMINOPHEN 10 MG/325 MG TAB PO PRN ×3 (02:08→12:31)
[2016-11-30] MEDS: INSULIN NovoLIN REGULAR SUPPLEMENTAL SCALE SQ SCH ×2 (02:11→05:29)
[2016-11-30 02:12] VITALS: BP 152/66; PULSE 61
[2016-11-30] MEDS: CHLORHEXIDINE GLUCONATE 2 % 1 PACK (2 CLOTHS)(taper/protocol) TOPICAL SCH (04:00)
[2016-11-30] MEDS: RESP: ALBUTEROL 2.5 MG/IPRATROPIUM 0.5 MG NEB (SCH) NEB ×2 (04:33→09:42)
[2016-11-30 04:55] LABS: BICARBONATE 25.8 MEQ/L (21.0-32.0); POTASSIUM 4.4 MEQ/L (3.5-5.1)
[2016-11-30 04:57] LABS: MEAN CELL VOLUME 69.5 FL (80.0-100.0); MEAN CORPUSCULAR HEMOGLOBIN 22.7 PG (27.0-34.0); MEAN CORPUSCULAR HGB CONC 32.6 % (32.0-36.0); PLATELET COUNT 351 TH/MM3 (150-450); RED BLOOD COUNT 3.89 MIL/MM3 (4.00-5.30); RED CELL DISTRIBUTION WIDTH 17.3 % (11.6-17.2); WHITE BLOOD COUNT 7.2 TH/MM3 (4.0-11.0)
[2016-11-30 05:04] LABS: REVIEW FLAG FINAL
[2016-11-30 05:21] LABS: INTERNATIONAL NORMALIZED RATIO 1.3 RATIO; PROTHROMBIN TIME - PATIENT 14.9 SEC (9.8-11.6)
[2016-11-30 05:26] VITALS: BP 142/63; PULSE 54; RESP 19; TEMP 98.4; O2SAT 93
[2016-11-30] MEDS: hydrALAZINE HCL 50 MG TAB PO SCH (05:26)
[2016-11-30 08:05] VITALS: BP 156/74; PULSE 57; RESP 19; TEMP 98.4; O2SAT 98
[2016-11-30] MEDS: DOCUSATE SODIUM 100 MG/10 ML UDC G-TUBE SCH (09:00)
[2016-11-30] MEDS: SODIUM CHLORIDE 0.9% FLUSH 10 ML FLUSH SCH (09:00)
[2016-11-30] MEDS ORDERED: NIFEdipine 60 MG SUSTAINED RELEASE TAB PO SCH (09:00)
[2016-11-30] MEDS: CARVEDILOL 12.5 MG TAB PO SCH (09:32)
[2016-11-30] MEDS: GABAPENTIN 300 MG CAP PO SCH (09:32)
[2016-11-30] MEDS: FUROSEMIDE 20 MG TAB PO SCH (09:33)
[2016-11-30] MEDS ORDERED: SPIR25 PO (09:34)
[2016-11-30] MEDS ORDERED: CARV12.5 PO (09:34)
[2016-11-30] MEDS ORDERED: BUME1TAB PO (09:34)
--- NOTE | 2016-11-30 09:50 | HHI.DS ---
Discharge Summary Admission Date Nov 25, 2016 at 00:39 Discharge Date: Nov 30, 2016 Admitting Diagnosis Respiratory Failure, CHF exacerbation (1) Diabetes ICD Code: E11.9 (2) CHF (congestive heart failure) ICD Code: I50.9 (3) Atrial fibrillation ICD Code: I48.91 (4) CKD (chronic kidney disease) ICD Code: N18.9 (5) Acute exacerbation of congestive heart failure ICD Code: I50.9 (6) Respiratory failure ICD Code: J96.90 Procedures Intubation and extubation Brief History - From Admission 51 year old female presents with shortness of breath. The patient arrives intubated due to respiratory failure. According to ambulance services when they arrived at the patient's bedside the patient reported a history of congestive heart failure. She was noted to be in respiratory distress with tachypnea with a rate in the 50s and was noted to have significant lower extremity edema. The patient was given a trial of CPAP after a spray of nitroglycerin was administered for elevated blood pressure. She was emergently intubated by EMT. CBC/BMP: 11/30/16 0427 11/30/16 0427 Significant Findings Laboratory Tests Test 11/28/16 11/29/16 11/30/16 04:24 04:51 04:27 Hemoglobin 9.1 GM/DL 8.7 GM/DL 8.8 GM/DL (11.6-15.3) (11.6-15.3) (11.6-15.3) Hematocrit 29.5 % 27.2 % 27.0 % (35.0-46.0) (35.0-46.0) (35.0-46.0) Mean Corpuscular Volume 71.1 FL 70.1 FL 69.5 FL (80.0-100.0) (80.0-100.0) (80.0-100.0) Mean Corpuscular Hemoglobin 22.0 PG 22.5 PG 22.7 PG (27.0-34.0) (27.0-34.0) (27.0-34.0) Mean Corpuscular Hemoglobin 30.9 % Concent (32.0-36.0) Red Cell Distribution Width 17.8 % 17.3 % 17.3 % (11.6-17.2) (11.6-17.2) (11.6-17.2) Prothrombin Time 19.6 SEC 17.1 SEC 14.9 SEC (9.8-11.6) (9.8-11.6) (9.8-11.6) Chloride Level 108 MEQ/L (98-107) Blood Urea Nitrogen 28 MG/DL (7-18) 37 MG/DL (7-18) 38 MG/DL (7-18) Creatinine 1.44 MG/DL 1.47 MG/DL 1.37 MG/DL (0.50-1.00) (0.50-1.00) (0.50-1.00) Estimat Glomerular Filtration 46 ML/MIN (>89) 45 ML/MIN (>89) 49 ML/MIN (>89) Rate Random Glucose 164 MG/DL 179 MG/DL 240 MG/DL (74-106) (74-106) (74-106) Red Blood Count 3.88 MIL/MM3 3.89 MIL/MM3 (4.00-5.30) (4.00-5.30) PE at Discharge GENERAL: Patient is sitting in chair in NAD, on nasal cannula. SKIN: Warm and dry. HEAD: Normocephalic. EYES: No scleral icterus. No injection or drainage. NECK: trachea midline. No JVD CARDIOVASCULAR: Regular rate and rhythm RESPIRATORY: Breath sounds equal bilaterally. No wheezing. GASTROINTESTINAL: Abdomen soft, non-tender, nondistended. MUSCULOSKELETAL: No cyanosis, + 1+ edema. Neuro: Alert awake and oriented 3, no focal deficits Pt update on day of discharge On room air, not short of breath, no nausea or vomiting. Ambulating well to the bathroom. Breathing almost back to baseline. Lower extremity swelling a little bit better. Hospital Course This is a 51-year-old female who presented to the hospital with shortness of breath. Patient was found to have acute respiratory failure secondary to COPD exacerbation and systolic congestive heart failure exacerbation. Patient was initially intubated and admitted to intensive care unit. Patient self extubated 11/26/16. Please refer to the notes from the road worker regarding patient's stay in the ICU. Patient was then transitioned to BiPAP and then to nasal cannula and transferred to the hospitalist service. Patient was also diuresed and placed on oral steroids. Since cultures remained negative, empiric antibiotics are stopped. Patient was continued on Lasix and low-dose steroids, Coreg and Lipitor. Echocardiogram from September showed an ejection fraction of 45-50%. Patient will remain on her home dose of Bumex and Aldactone was added to avoid further exacerbation*she will have a BMP checked in 3 days and follow-up with her primary care physician in one week. She will be discharged on room air. Her creatinine remained stable at baseline.She will also resume her other home medications including lisinopril. Pt Condition on Discharge: Good Discharge Disposition: Discharge Home Discharge Time: > 30 minutes Discharge Instructions DIET: Follow Instructions for: Heart Healthy Diet Fluid Restrictions: 1.5 to 2 L Activities you can perform: Regular-No Restrictions Follow up Referrals: PCP Follow-up - 1 Week New Orders: BASIC METABOLIC PROF - 12/02/16 New Medications: Spironolactone (Aldactone) 25 Mg Tab 25 MG PO DAILY CHF #30 Ref 0 TAB Carvedilol (Coreg) 12.5 Mg Tab 25 MG PO BID heart #60 TAB Changed Medications: Bumetanide (Bumetanide) 1 Mg Tab 1 MG PO BID #30 Ref 0 TAB (Changed from: DAILY) Continued Medications: Atorvastatin (Lipitor) 40 Mg Tab 40 MG PO HS #30 Ref 1 TAB Cholecalciferol (Vitamin D-3) 1,000 Unit Tab 1000 UNITS PO DAILY #30 Ref 0 TAB Gabapentin (Gabapentin) 600 Mg Tab 600 MG PO TID #90 Ref 0 TAB Glipizide (Glipizide) 10 Mg Tab 10 MG PO BID Take 30 minutes before a meal Blood Sugar Management #60 Ref 0 TAB Hydromorphone (Dilaudid) 2 Mg Tab 2 MG PO Q4H PRN BREAKTHROUGH PAIN #15 TAB Insulin Glargine Inj (Lantus Inj) 1,000 Unit/10 Ml Vial 35 UNITS SQ BID Blood Sugar Management Ref 0 VIAL Lisinopril (Lisinopril) 20 Mg Tab 20 MG PO BID #30 Ref 0 TAB Nifedipine ER 24 HR (Nifedical XL) 60 Mg Tab 60 MG PO DAILY #30 TAB Oxycodone-Acetaminophen (Percocet) 10-325 mg Tab 1 TAB PO Q4H PRN PAIN GREATER THAN 5 #30 Ref 0 TAB Pantoprazole (Pantoprazole) 40 Mg Tab 40 MG PO DAILY Reflux #30 Ref 0 TAB Warfarin (Warfarin) 6 Mg Tab 6 MG PO DAILY Blood Clot Prevention #30 Ref 0 TAB Discontinued Medications: Carvedilol (Carvedilol) 12.5 Mg Tab 12.5 MG PO BID #60 Ref 0 TAB Levofloxacin (Levaquin) 750 Mg Tab 750 MG PO Q48H #3 TAB Wendie Whitmore MD Nov 30, 2016 09:49
[2016-11-30] MEDS ORDERED: WARFARIN SOD 6 MG TAB PO SCH (16:00)
== END 2016-11-30 13:19 | disposition home or self-care (01) | DRG 208 ==
LOC: NEPE 23:32 → NEDA 11-25 00:39 → NEDH 11-25 04:35 → HIME 11-25 13:25 → N04A 11-29 18:45
PROVIDERS: ADMIT Hospitalist; ATTEND Hospitalist
PROC: 5A1935Z Respiratory Ventilation, Less than 24 Consecutive Hours (ICD-10-PCS; principal; 2016-11-25)
PROC: 5A09357 Assistance with Respiratory Ventilation, Less than 24 Consecutive Hours, Continuous Positive Airway Pressure (ICD-10-PCS; 2016-11-26)
DX: J96.90 Respiratory failure, unspecified, unspecified whether with hypoxia or hypercapnia (principal); I50.23 Acute on chronic systolic (congestive) heart failure; N17.9 Acute kidney failure, unspecified; N18.3 Chronic kidney disease, stage 3 (moderate); E11.40 Type 2 diabetes mellitus with diabetic neuropathy, unspecified; D68.9 Coagulation defect, unspecified; J44.1 Chronic obstructive pulmonary disease with (acute) exacerbation; Z68.41 Body mass index [BMI] 40.0-44.9, adult; Z79.4 Long term (current) use of insulin; Z79.84 Long term (current) use of oral hypoglycemic drugs; E66.9 Obesity, unspecified; I48.91 Unspecified atrial fibrillation; I12.9 Hypertensive chronic kidney disease with stage 1 through stage 4 chronic kidney disease, or unspecified chronic kidney disease; I73.9 Peripheral vascular disease, unspecified; Z79.01 Long term (current) use of anticoagulants; Z89.422 Acquired absence of other left toe(s); R60.0 Localized edema; E87.5 Hyperkalemia; E78.5 Hyperlipidemia, unspecified; G89.29 Other chronic pain; M54.9 Dorsalgia, unspecified; D72.829 Elevated white blood cell count, unspecified
CPT/HCPCS: 36600; 51702; 71010; 76937; 80048; 80053; 81001; 82550; 82552; 82805; 82948; 83605; 83735; 83880; 84100; 84484; 85007; 85025; 85027; 85610; 85730; 87040; 87070; 87086; 87205; 87449; 87641; 93005; 94002; 94003; 94640; 94664; J0360; J1940; J2060; J2250; J2270; J2543; J3010; J7030

== ENCOUNTER 2017-01-19 10:54 | Inpatient (IN) | payer OTHER, MEDICARE ==
[~2017-01-19] VITALS: Ht 157.5 cm; Wt 110.8 kg
[~2017-01-19 10:54] MED LIST changes: +CARV12.5 PO; -CARV12.52 PO; -LEVA750T PO; +SPIR25 PO
[2017-01-19 10:56] VITALS: BP 204/86; PULSE 93; RESP 24; TEMP 102.4; O2SAT 91
--- NOTE | 2017-01-19 11:54 | PD ---
HPI Chief Complaint: fever Time Seen by Provider: 11:40 Travel History International Travel<30 days: No Contact w/Intl Traveler<30days: No Traveled to known affect area: No History of Present Illness HPI 51-year-old female to history of atrial fibrillation, diabetes, peripheral vascular disease, hyperlipidemia, hypertension who presents with her friend for evaluation. The patient has been having chills all morning. She took Tylenol at 5:30. Her friend encouraged her to come here for further evaluation. On initial examination early complaint is of left heel pain. She has some pain in the right heel as well but it is worse in the left. She seems to have stage I to 2 pressure ulcers in the posterior heels bilaterally, left greater than right. She is tachypneic on initial examination but denying any shortness of breath, cough or congestion, abdominal pain, nausea or vomiting, flank pain, dysuria, rectal pain, rash. She has no other complaints at this time. PFSH Past Medical History Hx Anticoagulant Therapy: Yes Anemia: Yes Arthritis: Yes Asthma: No Atrial Fibrillation: Yes Autoimmune Disease: No Blood Disorders: No Anxiety: Yes Depression: No Heart Rhythm Problems: Yes (afib) Cancer: No Cardiovascular Problems: Yes High Cholesterol: No Chemotherapy: No Chest Pain: Yes Congestive Heart Failure: Yes COPD: Yes Cerebrovascular Accident: No Diabetes: Yes Diminished Hearing: No Deep Vein Thrombosis: Yes Endocrine: Yes Gastrointestinal Disorders: Yes (IBS) GERD: Yes Gout: Yes Genitourinary: Yes Headaches: Yes Hepatitis: No Hiatal Hernia: No Heparin Induced Thrombocytopen: No Hypertension: Yes Immune Disorder: No Implanted Vascular Access Dvce: No Kidney Stones: No Musculoskeletal: Yes Neurologic: No Psychiatric: Yes Reproductive: No Respiratory: Yes Immunizations Current: Yes Migraines: No Myocardial Infarction: No Pneumonia: Yes Radiation Therapy: No Renal Failure: No Seizures: No Sleep Apnea: Yes Thyroid Disease: No Ulcer: Yes PNEUMOCCOCAL Vaccine (Year): 2 Menopausal: Yes : 5 Para: 4 Miscarriage: 1 Tubal Ligation: Yes Past Surgical History Abdominal Surgery: No AICD: No Appendectomy: No Arteriovenous Shunt: No Cardiac Surgery: No Cholecystectomy: No Ear Surgery: No Endocrine Surgery: No Eye Surgery: No Genitourinary Surgery: No Gynecologic Surgery: Yes (tubal ligation) Insulin Pump: No Joint Replacement: No Neurologic Surgery: No Oral Surgery: Yes (tooth extraction) Pacemaker: No Thoracic Surgery: No Tonsillectomy: Yes Other Surgery: Yes (DEBRIDEMENT OF ABSCESS, STENT IN LT LEG, FASCIOTOMY LEFT LEG) Social History Alcohol Use: No (FARHAT) Tobacco Use: No Substance Use: No Allergies-Medications (Allergen,Severity, Reaction): Coded Allergies: Ibuprofen (Verified Allergy, Severe, MESSES WITH KIDNEYS, 01/19/17) Sulfa (Verified Allergy, Severe, HIVES, 01/19/17) Egg Allergy (Verified Allergy, Intermediate, Very Upset Stomach, 01/19/17) Milk (Verified Allergy, Unknown, 01/19/17) *MDRO Multi-Drug Resistant Organism (Verified Adverse Reaction, Unknown, KPC, ESBL, MRSA, 01/19/17) MRSA (leg wound) - 11/2004, 01/2005 MRSA toe wound 12/21/14. 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 Reported Meds & Prescriptions Reported Meds & Active Scripts Active Aldactone (Spironolactone) 25 Mg Tab 25 Mg PO DAILY Coreg (Carvedilol) 12.5 Mg Tab 25 Mg PO BID Bumetanide 1 Mg Tab 1 Mg PO BID Dilaudid (Hydromorphone HCl) 2 Mg Tab 2 Mg PO Q4H PRN Nifedical XL (Nifedipine) 60 Mg Tab 60 Mg PO DAILY Percocet (Oxycodone-Acetaminophen) 10-325 mg Tab 1 Tab PO Q4H PRN Lipitor (Atorvastatin Calcium) 40 Mg Tab 40 Mg PO HS Reported Glipizide 10 Mg Tab 10 Mg PO BID Take 30 minutes before a meal Vitamin D-3 (Cholecalciferol) 1,000 Unit Tab 1,000 Units PO DAILY Warfarin 6 Mg Tab 6 Mg PO DAILY Lantus Inj (Insulin Glargine) 1,000 Unit/10 Ml Vial 35 Units SQ BID Pantoprazole (Pantoprazole Sodium) 40 Mg Tab 40 Mg PO DAILY Lisinopril 20 Mg Tab 20 Mg PO BID Gabapentin 600 Mg Tab 600 Mg PO TID Review of Systems Except as stated in HPI: all other systems reviewed are Neg Physical Exam Narrative GENERAL: Morbidly obese and chronically ill-appearing female who is in no acute distress. She is tachypneic on initial examination SKIN: Warm and dry. Stage III pressure ulcers on the heels bilaterally, left greater than right. Tender to palpation. No drainage. No erythema. HEAD: Atraumatic. Normocephalic. EYES: Pupils equal and round. No scleral icterus. No injection or drainage. ENT: No nasal bleeding or discharge. Mucous membranes pink and moist. NECK: Trachea midline. No JVD. CARDIOVASCULAR: Regular rate and rhythm. No murmur appreciated. RESPIRATORY: No accessory muscle use. Clear to auscultation. Breath sounds equal bilaterally. Tachypneic. GASTROINTESTINAL: Abdomen soft, non-tender, nondistended. Hepatic and splenic margins not palpable. MUSCULOSKELETAL: No obvious deformities. Skin as noted above. Lower extremities are warm and well perfused. Previous amputations of the left foot first, second, third toes noted. No pitting edema to the lower extremities. NEUROLOGICAL: Awake and alert. No obvious cranial nerve deficits. Motor grossly within normal limits. Normal speech. PSYCHIATRIC: Appropriate mood and affect; insight and judgment normal. Data Data Last Documented VS Vital Signs Date Time Temp Pulse Resp B/P Pulse Ox O2 Delivery O2 Flow Rate FiO2 01/19/17 15:15 103.4 82 22 151/71 94 Nasal Cannula 2 Orders Electrocardiogram (01/19/17 11:36) Complete Blood Count With Diff (01/19/17 11:36) Comprehensive Metabolic Panel (01/19/17 11:36) Lactic Acid Sepsis Protocol (01/19/17 11:36) Urinalysis - C+S If Indicated (01/19/17 11:36) Blood Culture (01/19/17 11:36) Chest, Single Ap (01/19/17 11:36) Blood Glucose (01/19/17 11:36) Ecg Monitoring (01/19/17 11:36) Iv Access Insert/Monitor (01/19/17 11:36) Oximetry (01/19/17 11:36) Oxygen Administration (01/19/17 11:36) Arterial Blood Gas (Abg) (01/19/17 ) Foot, Complete ([id number]) (01/19/17 ) Acetaminophen (Tylenol) (01/19/17 12:00) B-Type Natriuretic Peptide (01/19/17 11:46) Westergren Sedimentation Rate (01/19/17 12:06) C-Reactive Protein (Crp) (01/19/17 12:20) Vancomycin Inj (Vancomycin Inj) (01/19/17 13:09) Piperacil-Tazo 3.375 Gm Premix (Zosyn 3. (01/19/17 13:15) Vascular Access Team Consult/P PRN (01/19/17 13:21) Vascular Poc Ultrasound (01/19/17 ) Prothrombin Time / Inr (Pt) (01/19/17 13:58) Act Partial Throm Time (Ptt) (01/19/17 13:58) Sodium Chlor 0.9% 1000 Ml Inj (Ns 1000 M (01/19/17 15:29) Acetaminophen (Tylenol) (01/19/17 16:15) Potassium, Serum (K) (01/19/17 19:39) Calcium Gluconate Inj (Calcium Gluconate (01/19/17 16:45) Insulin Human Regular Inj (Novolin R Inj (01/19/17 16:45) Dextrose 50% In Derrell (Vial) Inj (D50w (Vi (01/19/17 16:45) Albuterol Concentrated Neb (Albuterol Co (01/19/17 16:45) Sodium Polysty Sulfate Liq (Kayexalate L (01/19/17 16:45) Labs Laboratory Tests Test 01/19/17 01/19/17 01/19/17 01/19/17 12:10 12:42 14:05 15:39 Blood Gas Puncture Site RT RADIAL Blood Gas Patient Temperature 98.6 Blood Gas HCO3 19 mmol/L Blood Gas Base Excess -4.7 mmol/L Blood Gas Oxygen Saturation 88 % Arterial Blood pH 7.42 Arterial Blood Partial 30 mmHg Pressure CO2 Arterial Blood Partial 58 mmHG Pressure O2 Arterial Blood Oxygen Content 14.3 Vol % Arterial Blood 1.1 % Carboxyhemoglobin Arterial Blood Methemoglobin 1.5 % Blood Gas Hemoglobin 11.5 G/DL Oxygen Delivery Device ROOM AIR Blood Gas Inspired Oxygen 21 % Urine Color LIGHT-YELLOW Urine Turbidity CLEAR Urine pH 5.5 Urine Specific Foster 1.010 Urine Protein 30 mg/dL Urine Glucose (UA) NEG mg/dL Urine Ketones NEG mg/dL Urine Occult Blood NEG Urine Nitrite NEG Urine Bilirubin NEG Urine Urobilinogen LESS THAN 2.0 MG/DL Urine Leukocyte Esterase NEG Urine RBC 5 /hpf Urine WBC 1 /hpf Urine Squamous Epithelial <1 /hpf Cells Urine Mucus FEW /lpf Microscopic Urinalysis Comment CATH-CULT NOT IND White Blood Count 19.5 TH/MM3 Red Blood Count 5.40 MIL/MM3 Hemoglobin 11.7 GM/DL Hematocrit 37.5 % Mean Corpuscular Volume 69.3 FL Mean Corpuscular Hemoglobin 21.6 PG Mean Corpuscular Hemoglobin 31.2 % Concent Red Cell Distribution Width 17.8 % Platelet Count 267 TH/MM3 Mean Platelet Volume 10.4 FL Neutrophils (%) (Auto) 92.2 % Lymphocytes (%) (Auto) 3.7 % Monocytes (%) (Auto) 3.8 % Eosinophils (%) (Auto) 0.2 % Basophils (%) (Auto) 0.1 % Neutrophils # (Auto) 18.0 TH/MM3 Lymphocytes # (Auto) 0.7 TH/MM3 Monocytes # (Auto) 0.7 TH/MM3 Eosinophils # (Auto) 0.0 TH/MM3 Basophils # (Auto) 0.0 TH/MM3 CBC Comment DIFF FINAL Differential Comment Erythrocyte Sedimentation Rate 9 mm/hr Lactic Acid Level 0.9 mmol/L B-Type Natriuretic Peptide 88 PG/ML Sodium Level 138 MEQ/L Potassium Level 5.8 MEQ/L Chloride Level 112 MEQ/L Carbon Dioxide Level 16.2 MEQ/L Anion Gap 10 MEQ/L Blood Urea Nitrogen 67 MG/DL Creatinine 1.92 MG/DL Estimat Glomerular Filtration 33 ML/MIN Rate Random Glucose 147 MG/DL Calcium Level 9.4 MG/DL Total Bilirubin 0.6 MG/DL Aspartate Amino Transf 17 U/L (AST/SGOT) Alanine Aminotransferase 16 U/L (ALT/SGPT) Alkaline Phosphatase 117 U/L C-Reactive Protein 8.09 MG/DL Total Protein 8.0 GM/DL Albumin 3.5 GM/DL [facility] Medical Decision Making Medical Screen Exam Complete: Yes Emergency Medical Condition: Yes Medical Record Reviewed: Yes Differential Diagnosis Osteomyelitis, cellulitis, sepsis, pneumonia, influenza, urinary tract infection Narrative Course 51-year-old female presents with one-day history of increased left foot pain as well as fever. On initial examination she is febrile. She is tachypneic and she is denying any shortness of breath or chest pain or cough. She reports that she always breathes rapidly and this is not unusual. ABG does reveal hypoxemia with a p02 of 58, co2 of 30, ph 7.42 on room air. She was placed on 2 L nasal cannula with improvement of oxygen saturation of 97%. Plan is for basic lab work, chest x-ray, x-ray of the left foot. Tylenol administered for fever. Discussed with Dr. Yu. Recheck blood pressure 151/73. 1 L IV fluid was administered cautiously given her history of CHF. Multiple lab recollects were required. The patient was given broad-spectrum antibiotics. CBC WBC 19.5 with 92% neutrophils. CMP reveals a GFR 33 which seems to be her baseline, potassium of 5.8. Treating with Kayexalate, albuterol nebulizer, 10 units of insulin and ampule of dextrose. This patient is being admitted for sepsis without source. Sepsis Criteria SIRS Criteria (2 or more): Temp > 100.9 or < 96.8, RR > 20 or PaCO2 < 32, WBC > 08169, < 4000 or > 10% bands Diagnosis Primary Impression: Sepsis Qualified Code: A41.9 - Sepsis, due to unspecified organism Additional Impression: Hyperkalemia Admitting Information Admitting Physician Requests: Admit Rubén Glez January 19, 2017 11:53
[2017-01-19] MEDS ORDERED: ACETAMINOPHEN 325 MG TAB PO ONE ×2 (12:00→16:15)
[2017-01-19 12:10] VITALS: PULSE 82; RESP 20; O2SAT 95
[2017-01-19 12:14] LABS: BLOOD GAS BASE EXCESS -4.7 mmol/L (-2-2); BLOOD GAS CARBOXYHEMOGLOBIN 1.1 % (0-4); BLOOD GAS HCO3 19 mmol/L (22-26); BLOOD GAS METHEMOGLOBIN 1.5 % (0-2); BLOOD GAS O2 HGB SATURATION 88 % (90-100); BLOOD GAS OXYGEN CONTENT 14.3 Vol % (12.0-20.0); BLOOD GAS PCO2 30 mmHg (38-42); BLOOD GAS PO2 58 mmHG (61-120); BLOOD GAS TOTAL HGB 11.5 G/DL (12.0-16.0); CRITICAL VALUE YES; OXYGEN DEVICE ROOM AIR; TEMP CORR TO 98.6
[2017-01-19 12:15] LABS: DRAW SITE RT RADIAL; FIO2 21 %; NUMBER OF ARTERIAL PUNCTURES 2; STAT YES; ULNAR PULSE Y
--- NOTE | 2017-01-19 12:19 | RADRPT ---
EXAM DATE/TIME: 01/19/2017 11:44 [facility] COMPARISON: CHEST SINGLE AP, November 27, 2016, 4:21. INDICATIONS : Chest pain. MEDICAL HISTORY : None. SURGICAL HISTORY : None. ENCOUNTER: Initial ACUITY: 1 day PAIN SCORE: 0/10 LOCATION: Bilateral chest FINDINGS: A single view of the chest demonstrates the lungs to be symmetrically aerated without evidence of mas s, infiltrate or effusion. The cardiomediastinal contours are unremarkable. Osseous structures are intact. CONCLUSION: No acute disease. Phill Finley MD on January 19, 2017 at 12:17 Board Certified Radiologist. This report was verified electronically.
--- NOTE | 2017-01-19 12:20 | RADRPT ---
EXAM DATE/TIME: 01/19/2017 11:49 [facility] COMPARISON: FOOT LEFT COMPLETE ([id number]), January 29, 2016, 19:58. INDICATIONS : Foot pain. MEDICAL HISTORY : None. SURGICAL HISTORY : Amputation of toes. ENCOUNTER: Initial ACUITY: 1 day PAIN SCORE: 0/10 LOCATION: Left foot FINDINGS: Patient has had previous amputation of the foot distal to the base of the first proximal phalanx, sec ond proximal phalanx, third middle phalanx levels. There is soft tissue swelling of the dorsal aspect of the foot. Plantar and posterior calcaneal spurs are seen. No obvious osseous destruction at this time. CONCLUSION: Soft tissue swelling and postsurgical changes. Phill Finley MD on January 19, 2017 at 12:17 Board Certified Radiologist. This report was verified electronically.
[2017-01-19 12:57] LABS: BLOOD, URINE NEG (NEG); GLUCOSE,URINE NEG (NEG); KETONE, URINE NEG (NEG); MUCUS URINE FEW /lpf (OCC); NITRITE,URINE NEG (NEG); PH, URINE 5.5 (5.0-8.5); SQUAMOUS EPITHELIAL CELL URINE <1 /hpf (0-5); URINE COLOR LIGHT-YELLOW (YELLW/STRAW)
[2017-01-19 12:59] LABS: COMMENT (UR) CATH-CULT NOT IND; CULTURE IF INDICATED CATH CULTURE NOT IND
[2017-01-19] MEDS ORDERED: VANCOMYCIN INJ 1,000 MG in SODIUM CHLOR 0.9% 250 ML INJ 250 ML IV STA (13:09)
[2017-01-19] MEDS ORDERED: PIPERACIL-TAZO 3.375 GM PREMIX 50 ML IV ONE (13:15)
--- NOTE | 2017-01-19 15:03 | PD ---
Physical Exam Narrative I, Dr. Yu, have reviewed the advance practice practitioner's documentation and am in agreement, met with the patient face to face, made the diagnosis, and the medical decision making was done by me. *My assessment and Findings: Left foot ulcer vs. osteomyelitis vs. contusion vs. fracture vs. pneumonia vs. CHF exacerbation 51yo F with multiple PMH here with c/o left foot pain. Pt complains of left heel pain and does have a stage 1 ulcer there. Clinically does not appear infected. However, pt is febrile and was given acetaminophen. HR was initially over 90 and meets SIRS critieria. Pt denies any chest pain or sob but she appears tachypneic. We had difficulty obtaining her blood and had multiple resends. We were finally able to obtain IV access with ultrasound. I did do arterial puncture to obtain some blood. ABG showed O2 sat 88% on RA with compensated respiratory alkalosis. pH is normal at 7.42, PCO2 30 and HCO3 19. pO2 58. Pt states she does not use oxygen at home. Pt is 91% on RA and 98 % on 2L NC. This may be pt's baseline as she is not complaining of sob while sitting. CXR showed no acute disease. Xray left foot showed soft tissue swelling and postsurgical changes. UA showed negative leukocyte and nitrite. Labs reviewed, showed leukocytosis of 19.5. However, ESR normal. C-reactive protein is elevated. BNP is normal. Pt given NS IVF. K was 5.8 and not hemolyzed so treated with insulin/dextrose, albuterol and kayexylate. Pt empirically given vancomycin and zosyn. Pt will be admitted to hospitalist for sepsis. Data Data Last Documented VS Vital Signs Date Time Temp Pulse Resp B/P Pulse Ox O2 Delivery O2 Flow Rate FiO2 01/19/17 15:15 103.4 82 22 151/71 94 Nasal Cannula 2 Orders Electrocardiogram (01/19/17 11:36) Complete Blood Count With Diff (01/19/17 11:36) Comprehensive Metabolic Panel (01/19/17 11:36) Lactic Acid Sepsis Protocol (01/19/17 11:36) Urinalysis - C+S If Indicated (01/19/17 11:36) Blood Culture (01/19/17 11:36) Chest, Single Ap (01/19/17 11:36) Blood Glucose (01/19/17 11:36) Ecg Monitoring (01/19/17 11:36) Iv Access Insert/Monitor (01/19/17 11:36) Oximetry (01/19/17 11:36) Oxygen Administration (01/19/17 11:36) Arterial Blood Gas (Abg) (01/19/17 ) Foot, Complete ([id number]) (01/19/17 ) Acetaminophen (Tylenol) (01/19/17 12:00) B-Type Natriuretic Peptide (01/19/17 11:46) Westergren Sedimentation Rate (01/19/17 12:06) C-Reactive Protein (Crp) (01/19/17 12:20) Vancomycin Inj (Vancomycin Inj) (01/19/17 13:09) Piperacil-Tazo 3.375 Gm Premix (Zosyn 3. (01/19/17 13:15) Vascular Access Team Consult/P PRN (01/19/17 13:21) Vascular Poc Ultrasound (01/19/17 ) Prothrombin Time / Inr (Pt) (01/19/17 13:58) Act Partial Throm Time (Ptt) (01/19/17 13:58) Sodium Chlor 0.9% 1000 Ml Inj (Ns 1000 M (01/19/17 15:29) Acetaminophen (Tylenol) (01/19/17 16:15) Potassium, Serum (K) (01/19/17 19:39) Calcium Gluconate Inj (Calcium Gluconate (01/19/17 16:45) Insulin Human Regular Inj (Novolin R Inj (01/19/17 16:45) Dextrose 50% In [place] (Vial) Inj (D50w (Vi (01/19/17 16:45) Albuterol Concentrated Neb (Albuterol Co (01/19/17 16:45) Sodium Polysty Sulfate Liq (Kayexalate L (01/19/17 16:45) Admit Order (Ed Use Only) (01/19/17 16:54) Labs Laboratory Tests Test 01/19/17 01/19/17 01/19/17 01/19/17 12:10 12:42 14:05 15:39 Blood Gas Puncture Site RT RADIAL Blood Gas Patient Temperature 98.6 Blood Gas HCO3 19 mmol/L Blood Gas Base Excess -4.7 mmol/L Blood Gas Oxygen Saturation 88 % Arterial Blood pH 7.42 Arterial Blood Partial 30 mmHg Pressure CO2 Arterial Blood Partial 58 mmHG Pressure O2 Arterial Blood Oxygen Content 14.3 Vol % Arterial Blood 1.1 % Carboxyhemoglobin Arterial Blood Methemoglobin 1.5 % Blood Gas Hemoglobin 11.5 G/DL Oxygen Delivery Device ROOM AIR Blood Gas Inspired Oxygen 21 % Urine Color LIGHT-YELLOW Urine Turbidity CLEAR Urine pH 5.5 Urine Specific [place] 1.010 Urine Protein 30 mg/dL Urine Glucose (UA) NEG mg/dL Urine Ketones NEG mg/dL Urine Occult Blood NEG Urine Nitrite NEG Urine Bilirubin NEG Urine Urobilinogen LESS THAN 2.0 MG/DL Urine Leukocyte Esterase NEG Urine RBC 5 /hpf Urine WBC 1 /hpf Urine Squamous Epithelial <1 /hpf Cells Urine Mucus FEW /lpf Microscopic Urinalysis Comment CATH-CULT NOT IND White Blood Count 19.5 TH/MM3 Red Blood Count 5.40 MIL/MM3 Hemoglobin 11.7 GM/DL Hematocrit 37.5 % Mean Corpuscular Volume 69.3 FL Mean Corpuscular Hemoglobin 21.6 PG Mean Corpuscular Hemoglobin 31.2 % Concent Red Cell Distribution Width 17.8 % Platelet Count 267 TH/MM3 Mean Platelet Volume 10.4 FL Neutrophils (%) (Auto) 92.2 % Lymphocytes (%) (Auto) 3.7 % Monocytes (%) (Auto) 3.8 % Eosinophils (%) (Auto) 0.2 % Basophils (%) (Auto) 0.1 % Neutrophils # (Auto) 18.0 TH/MM3 Lymphocytes # (Auto) 0.7 TH/MM3 Monocytes # (Auto) 0.7 TH/MM3 Eosinophils # (Auto) 0.0 TH/MM3 Basophils # (Auto) 0.0 TH/MM3 CBC Comment DIFF FINAL Differential Comment Erythrocyte Sedimentation Rate 9 mm/hr Lactic Acid Level 0.9 mmol/L B-Type Natriuretic Peptide 88 PG/ML Sodium Level 138 MEQ/L Potassium Level 5.8 MEQ/L Chloride Level 112 MEQ/L Carbon Dioxide Level 16.2 MEQ/L Anion Gap 10 MEQ/L Blood Urea Nitrogen 67 MG/DL Creatinine 1.92 MG/DL Estimat Glomerular Filtration 33 ML/MIN Rate Random Glucose 147 MG/DL Calcium Level 9.4 MG/DL Total Bilirubin 0.6 MG/DL Aspartate Amino Transf 17 U/L (AST/SGOT) Alanine Aminotransferase 16 U/L (ALT/SGPT) Alkaline Phosphatase 117 U/L C-Reactive Protein 8.09 MG/DL Total Protein 8.0 GM/DL Albumin 3.5 GM/DL MDM Supervised Visit with DIANE: Yes Interpretation(s) EKG: NSR 87bpm. Normal axis. Poor baseline. Critical Care Narrative Aggregate critical care time was 40 minutes. Time to perform other separately billable procedures was note included in the critical care time. My time did not include minutes spent treating any other patients simultaneously or on activities that did not directly contribute to the patient's treatment. The services I provided to this patient were to treat and/or prevent clinically significant deterioration that could result in: cardiovascular collapse or . I provided critical care services requiring my management, as noted below: Chart data review, documentation time, medication orders and management, vital sign assessments/reviewing monitor data, ordering and reviewing lab tests, ordering and interpreting/reviewing x- rays and diagnostic studies, care of the patient and discussion of the patient with the admitting physicians. Sepsis Criteria SIRS Criteria (2 or more): Temp > 100.9 or < 96.8, Heart rate over 90, WBC > 30118, < 4000 or > 10% bands Sepsis Criteria (SIRS+source): Infect source susp/known Diagnosis Primary Impression: Sepsis Qualified Code: A41.9 - Sepsis, due to unspecified organism Admitting Information Admitting Physician Requests: Alina Gibbons DO January 19, 2017 15:03
[2017-01-19 15:15] VITALS: BP 151/71; PULSE 82; RESP 22; TEMP 103.4; O2SAT 94
[2017-01-19 15:17] LABS: BASOPHIL % 0.1 % (0.0-2.0); EOSINOPHIL % 0.2 % (0.0-4.0); HEMATOCRIT 37.5 % (35.0-46.0); HEMO FLAGS DIFF FINAL; LYMPH % 3.7 % (9.0-44.0); LYMPHOCYTE # 0.7 TH/MM3 (1.0-4.8); MEAN CELL VOLUME 69.3 FL (80.0-100.0); MEAN CORPUSCULAR HEMOGLOBIN 21.6 PG (27.0-34.0); MEAN CORPUSCULAR HGB CONC 31.2 % (32.0-36.0); MONO % 3.8 % (0.0-8.0); NEUT % 92.2 % (16.0-70.0); PLATELET COUNT 267 TH/MM3 (150-450); RED CELL DISTRIBUTION WIDTH 17.8 % (11.6-17.2); WHITE BLOOD COUNT 19.5 TH/MM3 (4.0-11.0)
[2017-01-19] MEDS ORDERED: SODIUM CHLOR 0.9% 1000 ML INJ 1,000 ML IV SCH (15:29)
[2017-01-19 16:35] LABS: ALT (GPT) 16 U/L (10-53); ANION GAP 10 MEQ/L (5-15); AST (GOT) 17 U/L (15-37); BICARBONATE 16.2 MEQ/L (21.0-32.0); BLOOD UREA NITROGEN 67 MG/DL (7-18); CHLORIDE 112 MEQ/L (98-107); GLOMERULAR FILTRATION RATE 33 ML/MIN (>89); POTASSIUM 5.8 MEQ/L (3.5-5.1); SODIUM (NA) 138 MEQ/L (136-145)
[2017-01-19 16:38] LABS: ALKALINE PHOSPHATASE 117 U/L (45-117); TOTAL BILIRUBIN ADULT 0.6 MG/DL (0.2-1.0)
[2017-01-19] MEDS ORDERED: RESP: ALBUTEROL CONC 2.5 MG/0.5 ML NEB INH ONE (16:45)
[2017-01-19] MEDS ORDERED: CALCIUM GLUCONATE 10% 1 GM/10 ML VIAL SLOW IVP ONE (16:45)
[2017-01-19] MEDS ORDERED: INSULIN HUMAN REGULAR 1,000 UNITS/10 ML VIAL IV PUSH ONE (16:45)
[2017-01-19] MEDS ORDERED: DEXTROSE 50% IN WATER 50 ML VIAL(D50) IV PUSH ONE (16:45)
[2017-01-19] MEDS ORDERED: SODIUM POLYSTYRENE SULFONATE SUSP 15 GM/60 ML CUP PO ONE (16:45)
[2017-01-19] MEDS ORDERED: DEXTROSE 50% IN WATER 50 ML VIAL(D50) IV PRN (17:00)
[2017-01-19] MEDS ORDERED: [UNRECOGNIZED DRUG - REMARK] OTHER SCH (17:00)
[2017-01-19] MEDS ORDERED: GLUCAGON 1 MG/ML VIAL OTHER PRN (17:00)
[2017-01-19] MEDS ORDERED: Vancomycin Consult Pharmacy 1 EA OTHER SCH ×2 (17:00→19:45)
[2017-01-19] MEDS ORDERED: SODIUM CHLOR 0.9% 1000 ML INJ 1,000 ML IV ONE (17:00)
[2017-01-19] MEDS ORDERED: VANCOMYCIN 1,000 MG/NS 250 ML IV ONE ×2 (17:30)
[2017-01-19] MEDS ORDERED: CARVEDILOL 12.5 MG TAB PO ONE (17:45)
[2017-01-19 17:50] VITALS: BP 140/66; PULSE 74; RESP 16; O2SAT 96
[2017-01-19] MEDS ORDERED: BISACODYL 10 MG SUPP RECTAL PRN (19:45)
[2017-01-19] MEDS ORDERED: ONDANSETRON HCL 4 MG/2 ML VIAL IVP PRN (19:45)
--- NOTE | 2017-01-19 19:46 | HHI.HP ---
[facility] Service [facility] Primary Care Physician Unknown Admission Diagnosis Sepsis, hyperkalemia Diagnoses: (1) Sepsis Diagnosis: Principal (2) Foot ulcer Diagnosis: Principal (3) Hyperkalemia Diagnosis: Principal (4) Renal insufficiency Diagnosis: Principal (5) A-fib Diagnosis: Principal (6) HTN (hypertension) Diagnosis: Principal (7) DM (diabetes mellitus) Diagnosis: Principal Travel History International Travel<30 Days: No Contact w/Intl Traveler <30 Da: No Traveled to Known Affected Are: No History of Present Illness This is a 51-year-old female with a PMH of HTN, Anxiety, A. fib on Coumadin, PVD , Peripheral Neuropathy, Gout, DM and COPD who presented to the ER secondary to fever and complaints of foot pain. Denies nausea, vomiting, diarrhea, SOB or sick contacts. On arrival, BP 204/86, HR 93, O2 sat 91% on RA, Temp 102.4, Tmax 103.4. WBC 19.5. K+ 5.8, creatinine 1.92, previously 1.37 on 11/30/16. INR pending. UA negative. CXR with no acute findings. Foot X-ray of soft tissue swelling and postsurgical changes. S/p Blood Cultures, Vanc/Zosyn in ER. Review of Systems Except as stated in HPI: all other systems reviewed are Neg ROS: 14 point review of systems otherwise negative. Past Family Social History Past Medical History PMH: HTN, Anxiety, A. fib on Coumadin, PVD, Peripheral Neuropathy, Gout, DM and COPD Past Surgical History PAST SURGICAL HISTORY: Left Toe Amputation, Fasciotomy Left Leg, Tubal Ligation Allergies: Coded Allergies: Ibuprofen (Verified Allergy, Severe, MESSES WITH KIDNEYS, 01/19/17) Sulfa (Verified Allergy, Severe, HIVES, 01/19/17) Egg Allergy (Verified Allergy, Intermediate, Very Upset Stomach, 01/19/17) Milk (Verified Allergy, Unknown, 01/19/17) *MDRO Multi-Drug Resistant Organism (Verified Adverse Reaction, Unknown, KPC, ESBL, MRSA, 01/19/17) MRSA (leg wound) - 11/2004, 01/2005 MRSA toe wound 12/21/14. 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 Family History PAST FAMILY HISTORY: Reviewed. No h/o DM or CAD Social History PAST SOCIAL HISTORY: Negative for alcohol, tobacco or drugs. Physical Exam Vital Signs Vital Signs Date Time Temp Pulse Resp B/P Pulse Ox O2 Delivery O2 Flow Rate FiO2 01/19/17 17:50 74 16 140/66 96 Nasal Cannula 2 01/19/17 15:15 103.4 82 22 151/71 94 Nasal Cannula 2 01/19/17 12:25 98 Nasal Cannula 2 01/19/17 12:10 82 20 95 Room Air 01/19/17 10:56 102.4 93 24 204/86 91 Room Air Physical Exam PE: GENERAL: Middle-aged female in no acute distress. HEENT: PERRLA, EOMI. No scleral icterus or conjunctival pallor. No lid lag or facial droop. CARDIOVASCULAR: Regular rate and rhythm. No obvious murmurs to auscultation. No chest tenderness to palpation. RESPIRATORY: No obvious rhonchi or wheezing. Clear to auscultation. Breath sounds equal bilaterally. GASTROINTESTINAL: Abdomen soft, non-tender, nondistended. BS normal. MUSCULOSKELETAL: Extremities without clubbing, cyanosis, or edema. No obvious deformities. Bilateral heel ulcers, no drainage noted. Left 1st-3rd toe amputations. NEUROLOGICAL: Awake, alert and oriented x4. No focal neurologic deficits. Moving both upper and lower extremities spontaneously. Laboratory Laboratory Tests Test 01/19/17 01/19/17 01/19/17 01/19/17 12:10 12:42 14:05 15:39 Blood Gas Puncture Site RT RADIAL Blood Gas Patient Temperature 98.6 Blood Gas HCO3 19 Blood Gas Base Excess -4.7 Blood Gas Oxygen Saturation 88 Arterial Blood pH 7.42 Arterial Blood Partial 30 Pressure CO2 Arterial Blood Partial 58 Pressure O2 Arterial Blood Oxygen Content 14.3 Arterial Blood 1.1 Carboxyhemoglobin Arterial Blood Methemoglobin 1.5 Blood Gas Hemoglobin 11.5 Oxygen Delivery Device ROOM AIR Blood Gas Inspired Oxygen 21 Urine Color LIGHT-YELLOW Urine Turbidity CLEAR Urine pH 5.5 Urine Specific [place] 1.010 Urine Protein 30 Urine Glucose (UA) NEG Urine Ketones NEG Urine Occult Blood NEG Urine Nitrite NEG Urine Bilirubin NEG Urine Urobilinogen LESS THAN 2.0 Urine Leukocyte Esterase NEG Urine RBC 5 Urine WBC 1 Urine Squamous Epithelial <1 Cells Urine Mucus FEW Microscopic Urinalysis Comment CATH-CULT NOT IND White Blood Count 19.5 Red Blood Count 5.40 Hemoglobin 11.7 Hematocrit 37.5 Mean Corpuscular Volume 69.3 Mean Corpuscular Hemoglobin 21.6 Mean Corpuscular Hemoglobin 31.2 Concent Red Cell Distribution Width 17.8 Platelet Count 267 Mean Platelet Volume 10.4 Neutrophils (%) (Auto) 92.2 Lymphocytes (%) (Auto) 3.7 Monocytes (%) (Auto) 3.8 Eosinophils (%) (Auto) 0.2 Basophils (%) (Auto) 0.1 Neutrophils # (Auto) 18.0 Lymphocytes # (Auto) 0.7 Monocytes # (Auto) 0.7 Eosinophils # (Auto) 0.0 Basophils # (Auto) 0.0 CBC Comment DIFF FINAL Differential Comment Erythrocyte Sedimentation Rate 9 Lactic Acid Level 0.9 B-Type Natriuretic Peptide 88 Sodium Level 138 Potassium Level 5.8 Chloride Level 112 Carbon Dioxide Level 16.2 Anion Gap 10 Blood Urea Nitrogen 67 Creatinine 1.92 Estimat Glomerular Filtration 33 Rate Random Glucose 147 Calcium Level 9.4 Total Bilirubin 0.6 Aspartate Amino Transf 17 (AST/SGOT) Alanine Aminotransferase 16 (ALT/SGPT) Alkaline Phosphatase 117 C-Reactive Protein 8.09 Total Protein 8.0 Albumin 3.5 Date/Time Procedure Status Source Growth 01/19/17 14:05 Aerobic Blood Culture Received Blood Peripheral Pending 01/19/17 14:05 Anaerobic Blood Culture Received Blood Peripheral Pending Result Diagram: 01/19/17 1405 01/19/17 1539 Assessment and Plan Problem List: (1) Sepsis ICD Code: A41.9 Status: Acute (2) Foot ulcer ICD Code: L97.509 Status: Acute (3) Hyperkalemia ICD Code: E87.5 Status: Acute (4) Renal insufficiency ICD Code: N28.9 Status: Acute (5) A-fib ICD Code: I48.91 Status: Acute (6) HTN (hypertension) ICD Code: I10 Status: Acute (7) DM (diabetes mellitus) ICD Code: E11.9 Status: Acute Assessment and Plan A/P: 1. Sepsis: HR 102.4, HR 93, WBC 19.5, Source-unclear. CXR w/ no acute findings, images reviewed by me, U/a negative, Bilateral foot ulcers no apparent infection. S/p Blood Cultures, Vanc/Zosyn. Follow up cultures, continue w/ IV Abx. IVF for hydration-caution w/ h/o CHF. 2. Foot Ulcers: Bilateral Stage I-II Heel Ulcers, present on admission, no drainage noted. Wound Management as needed. 3. Hyperkalemia: K+ 5.8, s/p Ca/Insulin/D50. Repeat labs in am. 4. Renal Insufficiency: Acute on Chronic. Creatinine 1.92, previously 1.37 11/30/16. UA negative, IVF for hydration, caution with history of CHF. Repeat labs in a.m. 5. A. fib: Chronic. On Coumadin, pending PT/INR. Resume home medications, resume Coumadin if therapeutic. 6. HTN: BP 204/86, HR 93 on arrival, currently 122/57, HR 78. Will monitor. Resume home medications, caution w/ underlying sepsis. 7. DM: Sliding scale w/ Accu-Cheks. Hold Glipizide for now to avoid hypoglycemia 8. DVT Prophylaxis: SCD/Teds. 9. Social work for d/c planning as needed. 10. Case discussed w/ ER physician at length. Physician Certification 2 Midnight Certification Type: Admission for Inpatient Services Order for Inpatient Services The services are ordered in accordance with Medicare regulations or non- Medicare payer requirements, as applicable. In the case of services not specified as inpatient-only, they are appropriately provided as inpatient services in accordance with the 2-midnight benchmark. Estimated LOS (days): 2 days is the estimated time the patient will need to remain in the hospital, assuming treatment plan goals are met and no additional complications. Post-Hospital Plan: Not yet determined Problem Qualifiers (1) Sepsis: Qualified Code: A41.9 - Sepsis, due to unspecified organism Janeth Todd MD January 19, 2017 19:46
[2017-01-19] MEDS ORDERED: PILL SPLITTER OTHER PRN (20:15)
[2017-01-19] MEDS ORDERED: NOVO7030P2 SQ (20:25)
[2017-01-19] MEDS ORDERED: WARF4TAB52 PO (20:25)
[2017-01-19 21:33] VITALS: BP 122/57; PULSE 78; RESP 20; TEMP 100.3; O2SAT 97
[2017-01-19] MEDS: PIPERACIL-TAZO 3.375 GM PREMIX 50 ML IV SCH (21:44)
[2017-01-19] MEDS: SODIUM CHLORIDE 0.9% FLUSH 10 ML FLUSH IV FLUSH SCH (21:44)
[2017-01-19] MEDS: HYDROmorphone HCL 2 MG TAB PO PRN (21:46)
[2017-01-19] MEDS: INSULIN ASPART SUPPLEMENTAL SCALE SQ SCH (21:50)
[2017-01-19] MEDS: SODIUM CHLOR 0.9% 1000 ML INJ 1,000 ML IV SCH (21:50)
[2017-01-20] VITALS (7 sets, daily range): BP systolic 110–189; BP diastolic 53–74; PULSE 70–100; RESP 20–22; TEMP 99.3–103.1; O2SAT 94–97
[2017-01-20] MEDS: PIPERACIL-TAZO 3.375 GM PREMIX 50 ML IV SCH ×2 (01:33→09:07)
[2017-01-20] MEDS: SODIUM CHLOR 0.9% 1000 ML INJ 1,000 ML IV SCH ×2 (06:03→16:16)
[2017-01-20] MEDS: HYDROmorphone HCL 2 MG TAB PO PRN (06:03)
[2017-01-20] MEDS: INSULIN ASPART SUPPLEMENTAL SCALE SQ SCH ×4 (06:06→21:00)
--- NOTE | 2017-01-20 08:42 | HHI.PR ---
Subjective Remarks in no acute distress. still febrile; T max 103.4. no cough,pain or diarrhea. but has chills. Objective Vitals Vital Signs Date Time Temp Pulse Resp B/P Pulse Ox O2 Delivery O2 Flow Rate FiO2 01/20/17 07:03 20 01/20/17 06:21 101.1 100 22 189/62 94 01/20/17 01:08 99.8 73 22 160/58 97 01/20/17 00:42 71 01/19/17 21:33 100.3 78 20 122/57 97 01/19/17 17:50 74 16 140/66 96 Nasal Cannula 2 01/19/17 15:15 103.4 82 22 151/71 94 Nasal Cannula 2 01/19/17 12:25 98 Nasal Cannula 2 01/19/17 12:10 82 20 95 Room Air 01/19/17 10:56 102.4 93 24 204/86 91 Room Air I/O 01/19/17 01/19/17 01/19/17 01/20/17 01/20/17 01/20/17 07:00 15:00 23:00 07:00 15:00 23:00 Intake Total 980 ml Output Total 900 ml Balance -900 ml 980 ml Intake IV Total 980 ml Output Urine Total 900 ml # Voids 1 Result Diagram: 01/19/17 1405 01/19/17 2244 Imaging Last Impressions Chest X-Ray 01/19/17 1136 Signed Impressions: Service Date/Time: Thursday, January 19, 2017 11:44 - CONCLUSION: No acute disease. Phill Finley MD Foot X-Ray 01/19/17 0000 Signed Impressions: Service Date/Time: Thursday, January 19, 2017 11:49 - CONCLUSION: Soft tissue swelling and postsurgical changes. Phill Finley MD Objective Remarks GENERAL: This is a well-nourished, well-developed patient, in no apparent distress. CARDIOVASCULAR: Regular rate and regular rhythm without murmurs, gallops, or rubs. RESPIRATORY: Clear to auscultation. Breath sounds equal bilaterally. No wheezes , rales, or rhonchi. GASTROINTESTINAL: Abdomen soft, non-tender, nondistended. Normal, active bowel sounds MUSCULOSKELETAL: Extremities without clubbing, cyanosis, or edema. NEURO: Alert & Oriented x4 to person, place, time, situation. Moves all ext x4 skin; wound noted on the bottom of the left foot-however doesn't look infected. Procedures none Medications and IVs Current Medications Acetaminophen 650 mg 650 mg ONCE ONCE PO Last administered on 01/19/17 12:29 ; Start 01/19/17 at 12:00; Stop 01/19/17 at 12:01; Status DC Vancomycin HCl 1000 mg/Sodium Chloride 250 ml @ 250 mls/hr ONCE STAT IV Last administered on 01/19/17 15:50; Start 01/19/17 at 13:09; Stop 01/19/17 at 14:08 ; Status DC Piperacillin Sod/ Tazobactam Sod 50 ml @ 100 mls/hr ONCE ONCE IV Last administered on 01/19/17 14:15; Start 01/19/17 at 13:15; Stop 01/19/17 at 13:44 ; Status DC Sodium Chloride (NS 1000 ml Inj) 1,000 ml @ 1,000 mls/hr Q1H IV Last administered on 01/19/17 15:49; Start 01/19/17 at 15:29; Stop 01/19/17 at 16:28 ; Status DC Acetaminophen (Tylenol) 650 mg ONCE ONCE PO Last administered on 01/19/17 19: 04; Start 01/19/17 at 16:15; Stop 01/19/17 at 16:16; Status DC Calcium Gluconate (Calcium Gluconate Inj) 1 gm ONCE ONCE SLOW IVP Last administered on 01/19/17 18:42; Start 01/19/17 at 16:45; Stop 01/19/17 at 16:46 ; Status DC Insulin Human Regular (NovoLIN R INJ) 10 units ONCE ONCE IV PUSH ; Start at 16:45; Stop 01/19/17 at 16:46; Status DC Dextrose (D50w (Vial) Inj) 50 ml ONCE ONCE IV PUSH Last administered on 19:05; Start 01/19/17 at 16:45; Stop 01/19/17 at 16:46; Status DC Albuterol Sulfate (Albuterol Concentrated Neb) 10 mg ONCE ONCE INH Last administered on 01/19/17 16:59; Start 01/19/17 at 16:45; Stop 01/19/17 at 16:46 ; Status DC Sodium Polystyrene Sulfonate 15 gm 15 gm ONCE ONCE PO Last administered on 18:42; Start 01/19/17 at 16:45; Stop 01/19/17 at 16:46; Status DC Pharmacy Profile Note 0 ml @ 0 mls/hr UNSCH OTHER ; Start 01/19/17 at 17:00; Stop 01/19/17 at 19:57; Status DC Pharmacy Profile Note ([facility]) 0 ml @ 0 mls/hr UNSCH OTHER ; Start 01/19/17 at 17:00 Dextrose (D50w (Vial) Inj) 50 ml UNSCH PRN IV HYPOGLYCEMIA-SEE COMMENTS; Start 01/19/17 at 17:00 Glucagon (Glucagon Inj) 1 mg UNSCH PRN OTHER HYPOGLYCEMIA-SEE COMMENTS; Start 01/19/17 at 17:00 Insulin Aspart 1 1 ACHS SLIDING SCALE SQ Last administered on 01/20/17 06:06 ; Start 01/19/17 at 21:00 Sodium Chloride (NS 1000 ml Inj) 1,000 ml @ 75 mls/hr [id number] ONCE IV Last administered on 01/19/17 18:43; Start 01/19/17 at 17:00; Stop 01/19/17 at 20:01 ; Status DC Acetaminophen 650 mg 650 mg Q4H PRN PO FEVER; Start 01/19/17 at 17:00 Vancomycin HCl/ Sodium Chloride (Vancomycin Inj/ NS 250 ml Inj) 250 ml @ 250 mls/hr ONCE ONCE IV Last administered on 01/19/17 21:44; Start 01/19/17 at 17 :30; Stop 01/19/17 at 18:41; Status DC Carvedilol 12.5 mg 12.5 mg ONCE ONCE PO Last administered on 01/19/17 18:43; Start 01/19/17 at 17:45; Stop 01/19/17 at 17:46; Status DC Piperacillin Sod/ Tazobactam Sod 50 ml @ 100 mls/hr Q6H IV Last administered on 01/20/17 01:33; Start 01/19/17 at 20:00 Pharmacy Profile Note 0 ml @ 0 mls/hr UNSCH OTHER ; Start 01/19/17 at 19:45 Sodium Chloride (NS 1000 ml Inj) 1,000 ml @ 100 mls/hr Q10H IV Last administered on 01/20/17 06:03; Start 01/19/17 at 20:00 Sodium Chloride (NS Flush) 2 ml UNSCH PRN IV FLUSH FLUSH AFTER USING IV ACCESS ; Start 01/19/17 at 19:45 Sodium Chloride (NS Flush) 2 ml BID IV FLUSH Last administered on 01/19/17 21: 44; Start 01/19/17 at 21:00 Ondansetron HCl (Zofran Inj) 4 mg Q6H PRN IVP NAUSEA OR VOMITING; Start at 19:45 Bisacodyl (Dulcolax Supp) 10 mg DAILY PRN RECTAL CONSTIPATION; Start 01/19/17 at 19:45 Hydromorphone HCl (Dilaudid Pf Inj) 1 mg Q3H PRN IV Pain 6-10; Start 01/19/17 at 19:45 Hydromorphone HCl (Dilaudid) 1 mg Q4H PRN PO PAIN SCALE 3 TO 5 Last administered on 01/20/17 06:03; Start 01/19/17 at 19:45 Miscellaneous 1 ea 1 ea UNSCH PRN OTHER SEE LABEL COMMENTS; Start 01/19/17 at 20:15 Vancomycin HCl/ Sodium Chloride (Vancomycin Inj/ NS 500 ml Inj) 516 ml @ 250 mls/hr Q24H IV ; Start 01/20/17 at 18:00 Miscellaneous Information SPECIFIC LAB TO BE ... ONCE ONCE .XX ; Start 01/22 at 17:45; Stop 01/22/17 at 17:46 A/P Assessment and Plan A/P 1. Sepsis: Source-unclear. CXR w/ no acute findings, U/a negative, foot ulcers no apparent infection. continue with broad spectrum IV antibiotics- follow the blood cultures- will consult ID. 2. Foot Ulcers: Bilateral Stage I-II Heel Ulcers, present on admission, no drainage noted. consult wound care. 3. Hyperkalemia: K+ 5.8, s/p Ca/Insulin/D50. labs today pending. 4. Renal Insufficiency: Acute on Chronic. UA negative, IVF for hydration, caution with history of CHF. Repeat labs today. diuretic and lisinopril on hold. 5. A. fib: Chronic. On Coumadin, pending PT/INR. Resume home medications, resume Coumadin if therapeutic. 6. HTN: Will monitor. Resume coreg; hold lisinopril, procardia for now. 7. DM: Sliding scale w/ Accu-Cheks. Hold Glipizide for now to avoid hypoglycemia 8. DVT Prophylaxis: SCD/Teds/ coumadin- pending INR. Ave Vaughan MD January 20, 2017 08:42 Ave Vaughan MD January 20, 2017 08:42
[2017-01-20 08:43] LABS: BASOPHIL % 0.2 % (0.0-2.0); HEMATOCRIT 34.6 % (35.0-46.0); HEMO FLAGS DIFF FINAL; LYMPH % 3.7 % (9.0-44.0); LYMPHOCYTE # 0.8 TH/MM3 (1.0-4.8); MEAN CELL VOLUME 69.1 FL (80.0-100.0); MEAN CORPUSCULAR HEMOGLOBIN 21.1 PG (27.0-34.0); MEAN CORPUSCULAR HGB CONC 30.5 % (32.0-36.0); MONO % 3.4 % (0.0-8.0); NEUT % 92.7 % (16.0-70.0); PLATELET COUNT 226 TH/MM3 (150-450); RED CELL DISTRIBUTION WIDTH 18.1 % (11.6-17.2); WHITE BLOOD COUNT 22.7 TH/MM3 (4.0-11.0)
[2017-01-20 08:55] LABS: APTT (PATIENT) 45.3 SEC (24.3-30.1); INTERNATIONAL NORMALIZED RATIO 1.4 RATIO; PROTHROMBIN TIME - PATIENT 15.9 SEC (9.8-11.6)
[2017-01-20] MEDS ORDERED: GABAPENTIN 300 MG CAP PO SCH (09:00)
[2017-01-20] MEDS: PANTOPRAZOLE SOD 40 MG DELAYED RELEASE TAB PO SCH (09:15)
[2017-01-20] MEDS: CARVEDILOL 12.5 MG TAB PO SCH ×2 (09:15→19:52)
[2017-01-20] MEDS: SODIUM CHLORIDE 0.9% FLUSH 10 ML FLUSH IV FLUSH SCH ×2 (09:16→22:03)
[2017-01-20] MEDS: ACETAMINOPHEN 325 MG TAB PO PRN (09:16)
[2017-01-20 09:37] LABS: ALKALINE PHOSPHATASE 94 U/L (45-117); ALT (GPT) 17 U/L (10-53); ANION GAP 9 MEQ/L (5-15); AST (GOT) 25 U/L (15-37); BICARBONATE 20.6 MEQ/L (21.0-32.0); BLOOD UREA NITROGEN 57 MG/DL (7-18); CHLORIDE 112 MEQ/L (98-107); GLOMERULAR FILTRATION RATE 32 ML/MIN (>89); POTASSIUM 4.4 MEQ/L (3.5-5.1); SODIUM (NA) 142 MEQ/L (136-145); TOTAL BILIRUBIN ADULT 0.5 MG/DL (0.2-1.0)
[2017-01-20] MEDS: HYDROmorphone HCL PF 1 MG/ML VIAL IV PRN ×3 (11:02→22:04)
[2017-01-20] MEDS: WARFARIN SOD 4 MG TAB PO SCH (16:00)
[2017-01-20] MEDS: PIPERACIL-TAZO 2.25 GM PREMIX 50 ML IV SCH ×2 (16:01→22:02)
--- NOTE | 2017-01-20 16:03 | EKG ---
Date Performed: 01/19/2017 Time Performed: 11:47:13 PTAGE: 51 years EKG: Sinus rhythm POSSIBLE LEFT ATRIAL ENLARGEMENT LOW QRS VOLTAGE IN EXTREMITY LEADS Baseline artifact makes it subst andard for interpretation. Obvious changes are discernable compared to the prior tracing. BORDERLINE ECG PREVIOUS TRACING : 11/25/2016 20.07 DOCTOR: Adelfo Huitron Interpretating Date/Time 01/20/2017 16:03:05
--- NOTE | 2017-01-20 17:22 | RADRPT ---
EXAM DATE/TIME: 01/20/2017 17:01 [facility] COMPARISON: CHEST SINGLE AP, January 19, 2017, 11:44. INDICATIONS : Shortness of breath. MEDICAL HISTORY : None. SURGICAL HISTORY : None. ENCOUNTER: Subsequent ACUITY: 2 days PAIN SCORE: 0/10 LOCATION: Bilateral chest FINDINGS: Patchy bilateral infiltrates are present, mainly basilar which could be increasing in prominence. No significant effusion. Cardiac contour is grossly stable. CONCLUSION: Worsening aeration Isaak Woodward MD on January 20, 2017 at 17:19 Board Certified Radiologist. This report was verified electronically.
[2017-01-20 17:39] LABS: HEMOGLOBIN A1a 1.5 %; HEMOGLOBIN A1b 0.7 %; HEMOGLOBIN Ao 56.1 %; HEMOGLOBIN F 1.5 %; HEMOGLOBIN LA1C 1.9 %; HEMOGLOBIN P3 5.3 %
[2017-01-20] MEDS ORDERED: VANCOMYCIN INJ 1,600 MG in SODIUM CHLORID 0.9% 500 ML INJ 500 ML IV SCH (18:00)
--- NOTE | 2017-01-20 19:48 | MB ---
cc: SWETHA OBREGON MD DATE OF CONSULTATION 01/20/[address] Vaughan. REASON FOR CONSULTATION Evaluate for sepsis. HISTORY OF PRESENT ILLNESS This is a 51-year-old black female who was admitted to the hospital on 01/19/2017. The patient presented to emergency department with fever. She had developed temperature up to 103 degrees and she had chills. The patient reported that she felt okay in the morning yesterday which was Friday. She went to judaism and approximately 15 minutes into judaism activity she felt chills and was brought to the emergency department for evaluation. The patient had a temperature of 103 degrees in the emergency department and respiratory rate was 22. She was found to also have elevated white cell count of 19.5. She is currently short of breath. She has to prop herself in a sitting position in bed because she is short of breath. She is currently on nasal cannula oxygen administration. She denies headache, nausea, vomiting, cough, sputum production, abdominal pain. She has diarrhea but states that she has inflammatory bowel syndrome and always has diarrhea. Chest x-ray was performed in the emergency department and showed no acute disease. The patient is status post surgery on her foot. She has a superficial blister appearing area at the posterior heel which looks like pressure ulceration. There is no drainage. Blood cultures performed yesterday have no growth in one day. Today's white count of 22.7. She had temperature of 103.1 degrees early this morning. She is awake and alert and oriented. She just feels miserable from the fever and difficulty breathing. The patient has stage III kidney disease. Urinalysis showed 1 white cell and negative leukocyte esterase. PAST MEDICAL HISTORY 1. Hypertension. 2. COPD. 3. Atrial fibrillation. 4. Diabetes mellitus. 5. Gout. 6. Peripheral neuropathy. 7. Atrial fibrillation. 8. Amputation of left toes. 9. History of fasciotomy of the left leg. 10. Tubal ligation. ALLERGIES SULFA. IBUPROFEN. THE PATIENT ALSO HAS ALLERGIES TO EGG AND MILK. MEDICATIONS 1. Neurontin. 2. Lipitor. 3. Coumadin. 4. Vancomycin. 5. Piperacillin / tazobactam. 6. Coreg. 7. Protonix. 8. Insulin. 9. Dilaudid p.r.n. 10. Tylenol p.r.n. SOCIAL HISTORY No tobacco, no alcohol. No illicit drugs. FAMILY HISTORY Significant for hypertension, diabetes in the patient's mother and brother, with coronary artery disease in the patient's father. REVIEW OF SYSTEMS Significant for fever and chills and shortness of breath, otherwise negative on 10-point review. PHYSICAL EXAMINATION GENERAL: This is a moderately obese female who is in moderate distress because of shortness of breath. She is awake and alert and oriented. VITAL SIGNS: Temperature was at 100.1, BP 110/53, respirations 21, heart rate 70. HEENT: Head is atraumatic. Extraocular movements grossly intact, pupils reactive to light. No icterus. Oropharynx moist mucosa without lesions. NECK: Supple without adenopathy. LUNGS: Decreased breath sounds at the bases, otherwise clear. HEART: Regular rate and rhythm. No murmurs, rubs or gallops. ABDOMEN: Bowel sounds present, obese, soft, nontender. RECTAL: Not performed. EXTREMITIES: No clubbing or cyanosis. There is mild puffiness of both lower extremities. No pitting edema. There is a tiny superficial bruise at the left heel which has mild tenderness on palpation in the region. No drainage. NEUROLOGIC: Nonfocal. SKIN: No rash. PSYCHIATRIC: The patient is calm and cooperative. LABORATORY DATA WBC 22.7, 92% neutrophils, hemoglobin 10.5, platelet 226. Creatinine 1.96, BUN 57, estimated GFR 32, sodium 142, potassium 4.4. Liver function tests normal. Sedimentation rate is 9. C-reactive protein elevated at 8.09. IMPRESSION 1. Fever. 2. Sepsis suggested by fever, increased respiratory rate, elevated white blood cell count. No clear source of infection. 3. Shortness of breath. Rule out pulmonary embolism. 4. Leukocytosis.. Questionable etiology. The patient without clear evidence of the source of sepsis at this point. RECOMMENDATIONS 1. Obtain VQ scan to evaluate for pulmonary embolism. 2. Obtain procalcitonin level. 3. Monitor blood cultures. 4. Monitor temperatures. 5. Monitor white blood cell count. 6. Continue vancomycin for now. 7. Continue piperacillin / Tazobactam for now. 8. Monitor renal function. 9. Monitor clinical status. Thank you for this consultation. A discussion was made with Dr. Vaughan to obtain a VQ scan for further evaluation of the patient. Thank you for this consultation. Swetha Obregon MD FD/DOROTHEA /3:57 PM /7:19 PM
[2017-01-20] MEDS: ATORVASTATIN 40 MG TAB PO SCH (19:52)
[2017-01-21] VITALS (7 sets, daily range): BP systolic 125–205; BP diastolic 60–90; PULSE 63–94; RESP 20–22; TEMP 96.6–101.7; O2SAT 94–97
[2017-01-21] MEDS: SODIUM CHLOR 0.9% 1000 ML INJ 1,000 ML IV SCH ×3 (02:00→22:00)
[2017-01-21] MEDS: PIPERACIL-TAZO 2.25 GM PREMIX 50 ML IV SCH ×4 (02:14→20:30)
[2017-01-21] MEDS: HYDROmorphone HCL PF 1 MG/ML VIAL IV PRN ×5 (02:14→20:50)
[2017-01-21] MEDS: INSULIN ASPART SUPPLEMENTAL SCALE SQ SCH ×4 (06:11→20:50)
[2017-01-21] MEDS: ACETAMINOPHEN 325 MG TAB PO PRN ×2 (06:16→20:31)
[2017-01-21] MEDS: GABAPENTIN 300 MG CAP PO SCH (09:21)
[2017-01-21] MEDS: CARVEDILOL 12.5 MG TAB PO SCH ×2 (09:21→19:14)
[2017-01-21] MEDS: PANTOPRAZOLE SOD 40 MG DELAYED RELEASE TAB PO SCH (09:21)
[2017-01-21] MEDS: HYDROmorphone HCL 2 MG TAB PO PRN (09:22)
[2017-01-21] MEDS: SODIUM CHLORIDE 0.9% FLUSH 10 ML FLUSH IV FLUSH SCH ×2 (09:23→20:30)
--- NOTE | 2017-01-21 10:41 | HHI.PR ---
Subjective Remarks Tmax 101.3. no sob but has occasional cough. Objective Vitals Vital Signs Date Time Temp Pulse Resp B/P Pulse Ox O2 Delivery O2 Flow Rate FiO2 01/21/17 08:05 99.1 63 20 169/74 95 01/21/17 06:10 100.7 94 22 162/69 94 01/21/17 00:48 98.8 66 22 125/60 95 01/20/17 22:01 101.3 75 22 164/68 94 01/20/17 16:17 99.3 74 20 150/67 95 01/20/17 12:45 100.1 70 21 110/53 94 I/O 01/20/17 01/20/17 01/20/17 01/21/17 01/21/17 01/21/17 06:59 14:59 22:59 06:59 14:59 22:59 Intake Total 980 ml 240 ml Output Total 600 ml Balance 980 ml 240 ml -600 ml Intake Oral 240 ml IV Total 980 ml Output Urine Total 600 ml # Voids 3 # Bowel Movements 1 0 Result Diagram: 01/20/1717 01/20/17 0817 Imaging Last Impressions Chest X-Ray 01/20/17 0000 Signed Impressions: Service Date/Time: Friday, January 20, 2017 17:01 - CONCLUSION: Worsening aeration Isaak Woodward MD Foot X-Ray 01/19/17 0000 Signed Impressions: Service Date/Time: Thursday, January 19, 2017 11:49 - CONCLUSION: Soft tissue swelling and postsurgical changes. Phill Finley MD Objective Remarks GENERAL: This is a well-nourished, well-developed patient, in no apparent distress. CARDIOVASCULAR: Regular rate and regular rhythm without murmurs, gallops, or rubs. RESPIRATORY: Clear to auscultation. Breath sounds equal bilaterally. No wheezes , rales, or rhonchi. GASTROINTESTINAL: Abdomen soft, non-tender, nondistended. Normal, active bowel sounds MUSCULOSKELETAL: Extremities with bilateral pedal edema. NEURO: Alert & Oriented x4 to person, place, time, situation. Moves all ext x4 skin; wound noted on the bottom of the left foot-however doesn't look infected. Procedures none Medications and IVs Current Medications Acetaminophen 650 mg 650 mg ONCE ONCE PO Last administered on 01/19/17t 12:29 ; Start 01/19/17 at 12:00; Stop 01/19/17 at 12:01; Status DC Vancomycin HCl 1000 mg/Sodium Chloride 250 ml @ 250 mls/hr ONCE STAT IV Last administered on 01/19/17 15:50; Start 01/19/17 at 13:09; Stop 01/19/17 at 14:08 ; Status DC Piperacillin Sod/ Tazobactam Sod 50 ml @ 100 mls/hr ONCE ONCE IV Last administered on 01/19/17 14:15; Start 01/19/17 at 13:15; Stop 01/19/17 at 13:44 ; Status DC Sodium Chloride (NS 1000 ml Inj) 1,000 ml @ 1,000 mls/hr Q1H IV Last administered on 01/19/17 15:49; Start 01/19/17 at 15:29; Stop 01/19/17 at 16:28 ; Status DC Acetaminophen (Tylenol) 650 mg ONCE ONCE PO Last administered on 01/19/17 19: 04; Start 01/19/17 at 16:15; Stop 01/19/17 at 16:16; Status DC Calcium Gluconate (Calcium Gluconate Inj) 1 gm ONCE ONCE SLOW IVP Last administered on 01/19/17 18:42; Start 01/19/17 at 16:45; Stop 01/19/17 at 16:46 ; Status DC Insulin Human Regular (NovoLIN R INJ) 10 units ONCE ONCE IV PUSH ; Start at 16:45; Stop 01/19/17 at 16:46; Status DC Dextrose (D50w (Vial) Inj) 50 ml ONCE ONCE IV PUSH Last administered on 19:05; Start 01/19/17 at 16:45; Stop 01/19/17 at 16:46; Status DC Albuterol Sulfate (Albuterol Concentrated Neb) 10 mg ONCE ONCE INH Last administered on 01/19/17 16:59; Start 01/19/17 at 16:45; Stop 01/19/17 at 16:46 ; Status DC Sodium Polystyrene Sulfonate 15 gm 15 gm ONCE ONCE PO Last administered on 18:42; Start 01/19/17 at 16:45; Stop 01/19/17 at 16:46; Status DC Pharmacy Profile Note 0 ml @ 0 mls/hr UNSCH OTHER ; Start 01/19/17 at 17:00; Stop 01/19/17 at 19:57; Status DC Pharmacy Profile Note ([facility]) 0 ml @ 0 mls/hr UNSCH OTHER ; Start 01/19/17 at 17:00 Dextrose (D50w (Vial) Inj) 50 ml UNSCH PRN IV HYPOGLYCEMIA-SEE COMMENTS; Start 01/19/17 at 17:00 Glucagon (Glucagon Inj) 1 mg UNSCH PRN OTHER HYPOGLYCEMIA-SEE COMMENTS; Start 01/19/17 at 17:00 Insulin Aspart 1 1 ACHS SLIDING SCALE SQ Last administered on 01/21/17 06:11 ; Start 01/19/17 at 21:00 Sodium Chloride (NS 1000 ml Inj) 1,000 ml @ 75 mls/hr [id number] ONCE IV Last administered on 01/19/17 18:43; Start 01/19/17 at 17:00; Stop 01/19/17 at 20:01 ; Status DC Acetaminophen 650 mg 650 mg Q4H PRN PO FEVER Last administered on 01/21/17 06: 16; Start 01/19/17 at 17:00 Vancomycin HCl/ Sodium Chloride (Vancomycin Inj/ NS 250 ml Inj) 250 ml @ 250 mls/hr ONCE ONCE IV Last administered on 01/19/17 21:44; Start 01/19/17 at 17 :30; Stop 01/19/17 at 18:41; Status DC Carvedilol 12.5 mg 12.5 mg ONCE ONCE PO Last administered on 01/19/17 18:43; Start 01/19/17 at 17:45; Stop 01/19/17 at 17:46; Status DC Piperacillin Sod/ Tazobactam Sod 50 ml @ 100 mls/hr Q6H IV Last administered on 01/20/17 09:07; Start 01/19/17 at 20:00; Stop 01/20/17 at 13:45; Status DC Pharmacy Profile Note 0 ml @ 0 mls/hr UNSCH OTHER ; Start 01/19/17 at 19:45 Sodium Chloride (NS 1000 ml Inj) 1,000 ml @ 100 mls/hr Q10H IV Last administered on 01/20/17 16:16; Start 01/19/17 at 20:00 Sodium Chloride (NS Flush) 2 ml UNSCH PRN IV FLUSH FLUSH AFTER USING IV ACCESS ; Start 01/19/17 at 19:45 Sodium Chloride (NS Flush) 2 ml BID IV FLUSH Last administered on 01/21/17 09: 23; Start 01/19/17 at 21:00 Ondansetron HCl (Zofran Inj) 4 mg Q6H PRN IVP NAUSEA OR VOMITING; Start at 19:45 Bisacodyl (Dulcolax Supp) 10 mg DAILY PRN RECTAL CONSTIPATION; Start 01/19/17 at 19:45 Hydromorphone HCl (Dilaudid Pf Inj) 1 mg Q3H PRN IV Pain 6-10 Last administered on 01/21/17 06:09; Start 01/19/17 at 19:45 Hydromorphone HCl (Dilaudid) 1 mg Q4H PRN PO PAIN SCALE 3 TO 5 Last administered on 01/21/17 09:22; Start 01/19/17 at 19:45 Miscellaneous 1 ea 1 ea UNSCH PRN OTHER SEE LABEL COMMENTS; Start 01/19/17 at 20:15 Vancomycin HCl/ Sodium Chloride (Vancomycin Inj/ NS 500 ml Inj) 516 ml @ 250 mls/hr Q24H IV ; Start 01/20/17 at 18:00; Stop 01/20/17 at 18:00; Status DC Miscellaneous Information SPECIFIC LAB TO BE DEVANTE... ONCE ONCE .XX ; Start 01/22 at 17:45; Stop 01/22/17 at 17:45; Status DC Atorvastatin Calcium (Lipitor) 40 mg HS PO Last administered on 01/20/17 19:52 ; Start 01/20/17 at 21:00 Carvedilol (Coreg) 25 mg BID PO Last administered on 01/21/17 09:21; Start at 09:00 Gabapentin (Neurontin) 600 mg TID PO Last administered on 01/20/17 09:15; Start 01/20/17 at 09:00; Stop 01/20/17 at 12:04; Status DC Pantoprazole Sodium 40 mg 40 mg DAILY PO Last administered on 01/21/17 09:21; Start 01/20/17 at 09:00 Pharmacy Profile Note (Coumadin Consult Pharmacy) 0 ml @ 0 mls/hr UNSCH OTHER ; Start 01/20/17 at 08:45 Warfarin Sodium (Coumadin) 4 mg DAILY@1600 PO Last administered on 01/20/17 16 :00; Start 01/20/17 at 16:00 Patient Medication Teaching (Coumadin Booklet) 1 ONCE@1500 ONCE OTHER Last administered on 01/20/17 15:00; Start 01/20/17 at 15:00; Stop 01/20/17 at 15:01 ; Status DC Gabapentin 600 mg 600 mg DAILY PO Last administered on 01/21/17 09:21; Start 01/21/17 at 09:00 Piperacillin Sod/ Tazobactam Sod (Zosyn 2.25 Gm Premix) 50 ml @ 100 mls/hr Q6H IV Last administered on 01/21/17 09:20; Start 01/20/17 at 15:00 A/P Assessment and Plan A/P 1. Sepsis: Source-unclear- although suspect pneumonia. continue with broad spectrum IV antibiotics- follow the blood cultures- check CT chest- ID consult appreciated. 2.acute respiratory failure- patient refused V/Q scan- CTA can not be done due to renal insufficiency- will check venous doppler of lower extremities. 3. Foot Ulcers: Bilateral Stage I-II Heel Ulcers, present on admission, no drainage noted. consulted wound care. 4. Hyperkalemia: resolved. 5. Renal Insufficiency: Acute on Chronic. UA negative, IVF for hydration, caution with history of CHF. will monitor. diuretic and lisinopril on hold. 6. A. fib: Chronic. On Coumadin -pharmacy consulted. 7. HTN: Will monitor. Resume coreg; hold lisinopril, procardia for now. 8. DM: Sliding scale w/ Accu-Cheks. Hold Glipizide for now to avoid hypoglycemia 9. DVT Prophylaxis: SCD/Teds/ coumadin- Ave Vaughan MD January 21, 2017 10:41
[2017-01-21] MEDS ORDERED: LORazepam 2 MG/ML VIAL IV ONE (10:45)
[2017-01-21 10:52] LABS: INTERNATIONAL NORMALIZED RATIO 1.4 RATIO; PROTHROMBIN TIME - PATIENT 15.6 SEC (9.8-11.6)
--- NOTE | 2017-01-21 12:33 | RADRPT ---
EXAM DATE/TIME: 01/21/2017 11:54 [facility] COMPARISON: CT ABDOMEN & PELVIS W/O CONTRAST, January 03, 2015, 16:22. CHEST SINGLE AP, November 25, 2016, 12:48. CHES T SINGLE AP, January 19, 2017, 11:44. CHEST SINGLE AP, January 20, 2017, 17:01. INDICATIONS : Dyspnea RADIATION DOSE: 10.10 CTDIvol (mGy) MEDICAL HISTORY : Hypertension. Chronic obstructive pulmonary disease. Diabetes mellitus type 2. SURGICAL HISTORY : Colon resection. ENCOUNTER: Initial ACUITY: 1 day PAIN SCALE: 0/10 LOCATION: lower chest TECHNIQUE: Volumetric scanning of the chest was performed. Using automated exposure control and adjustment of t he mA and/or kV according to patient size, radiation dose was kept as low as reasonably achievable to obtain optimal diagnostic quality images. FINDINGS: There is severe respiratory motion artifact. LUNGS: Respiratory motion artifact limits detailed evaluation of the lung parenchyma. However, there is diff use bilateral interstitial opacity is more severe in the lower lung zones. No airspace consolidation is present. There are likely areas of groundglass opacity. Atelectasis is present in both lower lobes . PLEURAE: There is trace pleural fluid bilaterally. MEDIASTINUM: The heart and great vessels demonstrate no acute abnormality. Coronary artery calcification is prese nt. There is an enlarged pre-carinal lymph node measuring 19 mm and AP window lymph node measuring 11 mm in short axis diameter. AXILLAE: Within normal limits. No lymphadenopathy. MUSCULOSKELETAL: There are degenerative changes of the thoracic spine. MISCELLANEOUS: A left adrenal gland mass is present measuring approximately 19 mm. Hounsfield measurements are 14. I t contains no visible macroscopic fat. CONCLUSION: 1. Examination quality is degraded by respiratory motion artifact. However, there is a diffuse inters titial process bilaterally throughout the lungs that is slightly more severe in the lower lung zones. It consists of septal thickening and groundglass opacity. Appearance is nonspecific and differential diagnostic considerations include edema, infection, or inflammatory conditions. It appears similar t o the prior chest x-rays. 2. Nonspecific mediastinal lymphadenopathy. 3. There is a 19 mm left adrenal gland mass. It does not meet criteria on this examination but its la ck of significant change since December 2014 is indicative of a benign process. Isaak Day MD on January 21, 2017 at 12:25 Board Certified Radiologist. This report was verified electronically.
--- NOTE | 2017-01-21 12:43 | HHI.IDPN ---
Note Infectious Disease Note Patient is up in bedside chair. Covered with blankets. Notes she feels cold. Temp lower. WBC still elevated. SOB. Refused VQ scan. Denies PEPPER, chest pain. Blood culture has no growth. Patient presented with fever and chills. PAST MEDICAL HISTORY 1. Hypertension. 2. COPD. 3. Atrial fibrillation. 4. Diabetes mellitus. 5. Gout. 6. Peripheral neuropathy. 7. Atrial fibrillation. 8. Amputation of left toes. 9. History of fasciotomy of the left leg. 10. Tubal ligation. ALLERGIES SULFA. IBUPROFEN. THE PATIENT ALSO HAS ALLERGIES TO EGG AND MILK. ANTIBIOTICS: MEDICATIONS Vancomycin. Piperacillin / tazobactam. OBJECTIVE: Vital Signs Date Time Temp Pulse Resp B/P Pulse Ox O2 Delivery O2 Flow Rate FiO2 01/21/17 11:58 96.6 64 20 165/72 97 01/21/17 10:22 18 01/21/17 08:05 99.1 63 20 169/74 95 01/21/17 06:10 100.7 94 22 162/69 94 01/21/17 00:48 98.8 66 22 125/60 95 01/20/17 22:01 101.3 75 22 164/68 94 01/20/17 16:17 99.3 74 20 150/67 95 01/20/17 12:45 100.1 70 21 110/53 94 01/20/17 01/20/17 01/21/17 15:00 23:00 07:00 Intake Total 240 ml Output Total 600 ml Balance 240 ml -600 ml Intake Oral 240 ml Output Urine Total 600 ml # Voids 3 # Bowel Movements 1 0 Laboratory Tests Test 01/19/17 01/20/17 14:05 08:17 White Blood Count 19.5 TH/MM3 22.7 TH/MM3 Red Blood Count 5.40 MIL/MM3 5.00 MIL/MM3 Hemoglobin 11.7 GM/DL 10.5 GM/DL Hematocrit 37.5 % 34.6 % Mean Corpuscular Volume 69.3 FL 69.1 FL Mean Corpuscular Hemoglobin 21.6 PG 21.1 PG Mean Corpuscular Hemoglobin 31.2 % 30.5 % Concent Red Cell Distribution Width 17.8 % 18.1 % Platelet Count 267 TH/MM3 226 TH/MM3 Mean Platelet Volume 10.4 FL 9.7 FL Neutrophils (%) (Auto) 92.2 % 92.7 % Lymphocytes (%) (Auto) 3.7 % 3.7 % Monocytes (%) (Auto) 3.8 % 3.4 % Eosinophils (%) (Auto) 0.2 % 0.0 % Basophils (%) (Auto) 0.1 % 0.2 % Neutrophils # (Auto) 18.0 TH/MM3 21.0 TH/MM3 Lymphocytes # (Auto) 0.7 TH/MM3 0.8 TH/MM3 Monocytes # (Auto) 0.7 TH/MM3 0.8 TH/MM3 Eosinophils # (Auto) 0.0 TH/MM3 0.0 TH/MM3 Basophils # (Auto) 0.0 TH/MM3 0.0 TH/MM3 CBC Comment DIFF FINAL DIFF FINAL Differential Comment Erythrocyte Sedimentation Rate 9 mm/hr Laboratory Tests Test 01/19/17 01/19/17 01/19/17 01/20/17 14:05 15:39 22:44 08:17 Lactic Acid Level 0.9 mmol/L B-Type Natriuretic Peptide 88 PG/ML Sodium Level 138 MEQ/L 142 MEQ/L Potassium Level 5.8 MEQ/L 5.6 MEQ/L 4.4 MEQ/L Chloride Level 112 MEQ/L 112 MEQ/L Carbon Dioxide Level 16.2 MEQ/L 20.6 MEQ/L Anion Gap 10 MEQ/L 9 MEQ/L Blood Urea Nitrogen 67 MG/DL 57 MG/DL Creatinine 1.92 MG/DL 1.96 MG/DL Estimat Glomerular Filtration 33 ML/MIN 32 ML/MIN Rate Random Glucose 147 MG/DL 157 MG/DL Calcium Level 9.4 MG/DL 9.2 MG/DL Total Bilirubin 0.6 MG/DL 0.5 MG/DL Aspartate Amino Transf 17 U/L 25 U/L (AST/SGOT) Alanine Aminotransferase 16 U/L 17 U/L (ALT/SGPT) Alkaline Phosphatase 117 U/L 94 U/L C-Reactive Protein 8.09 MG/DL Total Protein 8.0 GM/DL 7.8 GM/DL Albumin 3.5 GM/DL 3.1 GM/DL Hemoglobin A1c 8.2 % Test 01/21/17 09:48 Creatinine 1.62 MG/DL Estimat Glomerular Filtration 40 ML/MIN Rate Microbiology Date/Time Procedure Status Source Growth 01/19/17 12:20 Aerobic Blood Culture - Preliminary Resulted Blood Peripheral NO GROWTH IN 2 DAYS 5/21/17 12:20 Anaerobic Blood Culture - Preliminary Resulted Blood Peripheral NO GROWTH IN 2 DAYS 01/19/17 14:05 Aerobic Blood Culture - Preliminary Resulted Blood Peripheral NO GROWTH IN 2 DAYS 01/19/17 14:05 Anaerobic Blood Culture - Preliminary Resulted Blood Peripheral NO GROWTH IN 2 DAYS PHYSICAL EXAMINATION GENERAL: Awake and alert and oriented. HEENT: No icterus. Oropharynx moist mucosa without lesions. NECK: Supple without adenopathy. LUNGS: Decreased breath sounds. HEART: Regular rate and rhythm. No murmurs, rubs or gallops. ABDOMEN: Bowel sounds present, obese, soft, nontender. EXTREMITIES: No clubbing or cyanosis. There is mild puffiness of both lower extremities. No pitting edema. There is a tiny superficial bruise at the left heel which has mild tenderness on palpation in the region. No drainage. NEUROLOGIC: Nonfocal. SKIN: No rash. PSYCHIATRIC: The patient is calm and cooperative. IMPRESSION 1. Fever. 2. Sepsis suggested by fever, increased respiratory rate, elevated white blood cell count. No clear source of infection. 3. Shortness of breath. Rule out pulmonary embolism. ? pneumonia. 4. Leukocytosis. Questionable etiology. The patient without clear evidence of the source of sepsis. RECOMMENDATIONS 1. Monitor blood cultures. 2. Monitor temperatures. 3. Monitor white blood cell count. 4. Continue vancomycin. 5. Continue piperacillin / Tazobactam. 6. Monitor renal function. 7. Monitor clinical status. 8. ADEN, Rheumatoid factor. Arik Marquis MD January 21, 2017 12:43
[2017-01-21] MEDS ORDERED: VANCOMYCIN INJ 2,000 MG in SODIUM CHLORID 0.9% 500 ML INJ 500 ML IV ONE (14:00)
[2017-01-21] MEDS: WARFARIN SOD 4 MG TAB PO SCH (15:08)
--- NOTE | 2017-01-21 15:24 | RADRPT ---
EXAM DATE/TIME: 01/21/2017 14:19 [facility] COMPARISON: US LEG BILATERAL VENOUS DOPPLER, December 16, 2014, 16:48. INDICATIONS : Bilateral leg swelling and pain. MEDICAL HISTORY : Methicillin-resistant Staphylococcus aureus. Gastroesophageal reflux disease. Chronic obstructive pul monary disease. CHF. A-fib. Hypertension. DVT. Pneumonia. Ulcer. Osteoarthritis. Chronic kidney disea se. Anemia. SURGICAL HISTORY : Tonsillectomy.Tubal ligation. Mastectomy. ENCOUNTER: Initial ACUITY: 4 - 6 months PAIN SCORE: 9/10 LOCATION: Bilateral legs. TECHNIQUE: Venous ultrasound of the left and right leg was performed from the inguinal ligament to the proximal calf. Real-time, color Doppler and spectral tracing, compression and augmentation techniques were us ed. FINDINGS: RIGHT LEG: There is normal compressibility of the deep venous system from the inguinal region to the proximal ca lf. No echogenic clot is seen in the lumen of the common femoral, femoral, popliteal, and posterior tibial veins. There is a normal response of the venous system to proximal and distal augmentation an d respiration. LEFT LEG: There is normal compressibility of the deep venous system from the inguinal region to the proximal ca lf. No echogenic clot is seen in the lumen of the common femoral, femoral, popliteal, and posterior tibial veins. There is a normal response of the venous system to proximal and distal augmentation an d respiration. CONCLUSION: 1. No evidence of deep venous thrombosis. Romel Chavez MD on January 21, 2017 at 15:22 Board Certified Radiologist. This report was verified electronically.
[2017-01-21] MEDS ORDERED: WARFARIN SOD 2 MG TAB PO ONE (16:00)
[2017-01-21] MEDS: cloNIDine HCL 0.1 MG TAB PO PRN (17:00)
[2017-01-21] MEDS: ATORVASTATIN 40 MG TAB PO SCH (20:30)
[2017-01-21 22:09] LABS: RHEUMATOID FACTOR TRIGGER LESS THAN 10.0 IU/ML (0.0-14.9)
[2017-01-22] VITALS (10 sets, daily range): BP systolic 138–197; BP diastolic 55–85; PULSE 62–69; RESP 17–24; TEMP 97.5–99.3; O2SAT 92–97
[2017-01-22] MEDS: HYDROmorphone HCL PF 1 MG/ML VIAL IV PRN ×6 (01:47→21:38)
[2017-01-22] MEDS: PIPERACIL-TAZO 2.25 GM PREMIX 50 ML IV SCH ×4 (03:23→21:24)
[2017-01-22] MEDS: RESP: ALBUTEROL 2.5 MG/IPRATROPIUM 0.5 MG NEB (PRN) NEB ×2 (04:50→16:22)
--- NOTE | 2017-01-22 06:28 | RADRPT ---
EXAM DATE/TIME: 01/22/2017 05:34 [facility] COMPARISON: CHEST SINGLE AP, January 19, 2017, 11:44. CHEST SINGLE AP, January 20, 2017, 17:01. INDICATIONS : Short of breath. MEDICAL HISTORY : None. SURGICAL HISTORY : None. ENCOUNTER: Subsequent ACUITY: 1 week PAIN SCORE: 0/10 LOCATION: Bilateral chest FINDINGS: There is slight cardiomegaly and perivascular pulmonary edema. There is also some degree of possible atelectasis in both lung bases. CONCLUSION: Slight CHF and slight bibasilar atelectasis. Vicente Gibbs MD on January 22, 2017 at 6:26 Board Certified Radiologist. This report was verified electronically.
[2017-01-22] MEDS: INSULIN ASPART SUPPLEMENTAL SCALE SQ SCH ×4 (06:45→21:22)
[2017-01-22 07:57] LABS: BASOPHIL # 0.1 TH/MM3 (0-0.2); BASOPHIL % 0.7 % (0.0-2.0); EOSINOPHIL % 0.2 % (0.0-4.0); HEMATOCRIT 28.3 % (35.0-46.0); HEMO FLAGS DIFF FINAL; LYMPH % 10.9 % (9.0-44.0); LYMPHOCYTE # 1.3 TH/MM3 (1.0-4.8); MEAN CELL VOLUME 69.2 FL (80.0-100.0); MEAN CORPUSCULAR HGB CONC 30.3 % (32.0-36.0); MONO % 4.5 % (0.0-8.0); NEUT % 83.7 % (16.0-70.0); PLATELET COUNT 193 TH/MM3 (150-450); RED BLOOD COUNT 4.08 MIL/MM3 (4.00-5.30); RED CELL DISTRIBUTION WIDTH 17.5 % (11.6-17.2)
[2017-01-22 08:03] LABS: INTERNATIONAL NORMALIZED RATIO 1.8 RATIO; PROTHROMBIN TIME - PATIENT 20.6 SEC (9.8-11.6)
[2017-01-22] MEDS: GABAPENTIN 300 MG CAP PO SCH (08:29)
[2017-01-22] MEDS: CARVEDILOL 12.5 MG TAB PO SCH ×2 (08:30→21:25)
[2017-01-22] MEDS: PANTOPRAZOLE SOD 40 MG DELAYED RELEASE TAB PO SCH (08:30)
[2017-01-22] MEDS: SODIUM CHLORIDE 0.9% FLUSH 10 ML FLUSH IV FLUSH SCH ×2 (09:00→21:38)
[2017-01-22] MEDS: HYDROmorphone HCL 2 MG TAB PO PRN ×3 (10:17→18:44)
--- NOTE | 2017-01-22 11:16 | HHI.PR ---
Subjective Remarks still with some sob. on two liters of oxygen via N/C. has some back pain. no fever this morning; Tmax 101.7. Objective Vitals Vital Signs Date Time Temp Pulse Resp B/P Pulse Ox O2 Delivery O2 Flow Rate FiO2 01/22/17 09:12 92 Nasal Cannula 2.00 01/22/17 08:57 Nasal Cannula 3.00 Humidified 01/22/17 08:00 99.2 63 17 197/85 92 01/22/17 04:50 93 Nasal Cannula 4.00 01/22/17 04:00 97.5 69 24 154/68 92 01/22/17 03:10 Nasal Cannula 2.00 01/22/17 03:08 95 Nasal Cannula 4.00 01/22/17 00:00 98.3 62 22 140/64 94 01/21/17 20:00 101.7 73 22 205/88 96 01/21/17 18:30 75 181/76 01/21/17 17:30 20 01/21/17 16:42 99.4 78 22 197/90 94 01/21/17 11:58 96.6 64 20 165/72 97 I/O 01/21/17 01/21/17 01/21/17 01/22/17 01/22/17 01/22/17 07:00 15:00 23:00 07:00 15:00 23:00 Intake Total 120 ml 720 ml Output Total 600 ml Balance -600 ml 120 ml 720 ml Intake Oral 120 ml 720 ml Output Urine Total 600 ml # Voids 2 5 # Bowel Movements 0 Result Diagram: 01/22/17 0651 01/21/17 0948 Imaging Last Impressions Chest X-Ray 01/22/17 0000 Signed Impressions: Service Date/Time: Sunday, January 22, 2017 05:34 - CONCLUSION: Slight CHF and slight bibasilar atelectasis. KEmma Gibbs MD Lower Extremity Ultrasound 01/21/17 0000 Signed Impressions: Service Date/Time: Saturday, January 21, 2017 14:19 - CONCLUSION: 1. No evidence of deep venous thrombosis. Romel Chavez MD Chest CT 01/21/17 0000 Signed Impressions: Service Date/Time: Saturday, January 21, 2017 11:54 - CONCLUSION: 1. Examination quality is degraded by respiratory motion artifact. However, there is a diffuse interstitial process bilaterally throughout the lungs that is slightly more severe in the lower lung zones. It consists of septal thickening and groundglass opacity. Appearance is nonspecific and differential diagnostic considerations include edema, infection, or inflammatory conditions. It appears similar to the prior chest x-rays. 2. Nonspecific mediastinal lymphadenopathy. 3. There is a 19 mm left adrenal gland mass. It does not meet criteria on this examination but its lack of significant change since December 2014 is indicative of a benign process. Isaak Day MD Foot X-Ray 01/19/17 0000 Signed Impressions: Service Date/Time: Thursday, January 19, 2017 11:49 - CONCLUSION: Soft tissue swelling and postsurgical changes. Phill Finley MD Objective Remarks GENERAL: This is a well-nourished, well-developed patient, in no apparent distress. CARDIOVASCULAR: Regular rate and regular rhythm without murmurs, gallops, or rubs. RESPIRATORY: Clear to auscultation. Breath sounds equal bilaterally. No wheezes , rales, or rhonchi. GASTROINTESTINAL: Abdomen soft, non-tender, nondistended. Normal, active bowel sounds MUSCULOSKELETAL: Extremities with bilateral pedal edema. NEURO: Alert & Oriented x4 to person, place, time, situation. Moves all ext x4 skin; wound noted on the bottom of the left foot-however doesn't look infected. Procedures none Medications and IVs Current Medications Acetaminophen 650 mg 650 mg ONCE ONCE PO Last administered on 01/19/17 12:29 ; Start 01/19/17 at 12:00; Stop 01/19/17 at 12:01; Status DC Vancomycin HCl 1000 mg/Sodium Chloride 250 ml @ 250 mls/hr ONCE STAT IV Last administered on 01/19/17 15:50; Start 01/19/17 at 13:09; Stop 01/19/17 at 14:08 ; Status DC Piperacillin Sod/ Tazobactam Sod 50 ml @ 100 mls/hr ONCE ONCE IV Last administered on 01/19/17 14:15; Start 01/19/17 at 13:15; Stop 01/19/17 at 13:44 ; Status DC Sodium Chloride (NS 1000 ml Inj) 1,000 ml @ 1,000 mls/hr Q1H IV Last administered on 01/19/17 15:49; Start 01/19/17 at 15:29; Stop 01/19/17 at 16:28 ; Status DC Acetaminophen (Tylenol) 650 mg ONCE ONCE PO Last administered on 01/19/17 19: 04; Start 01/19/17 at 16:15; Stop 01/19/17 at 16:16; Status DC Calcium Gluconate (Calcium Gluconate Inj) 1 gm ONCE ONCE SLOW IVP Last administered on 01/19/17 18:42; Start 01/19/17 at 16:45; Stop 01/19/17 at 16:46 ; Status DC Insulin Human Regular (NovoLIN R INJ) 10 units ONCE ONCE IV PUSH ; Start at 16:45; Stop 01/19/17 at 16:46; Status DC Dextrose (D50w (Vial) Inj) 50 ml ONCE ONCE IV PUSH Last administered on 19:05; Start 01/19/17 at 16:45; Stop 01/19/17 at 16:46; Status DC Albuterol Sulfate (Albuterol Concentrated Neb) 10 mg ONCE ONCE INH Last administered on 01/19/17 16:59; Start 01/19/17 at 16:45; Stop 01/19/17 at 16:46 ; Status DC Sodium Polystyrene Sulfonate 15 gm 15 gm ONCE ONCE PO Last administered on 18:42; Start 01/19/17 at 16:45; Stop 01/19/17 at 16:46; Status DC Pharmacy Profile Note 0 ml @ 0 mls/hr UNSCH OTHER ; Start 01/19/17 at 17:00; Stop 01/19/17 at 19:57; Status DC Pharmacy Profile Note ([facility]) 0 ml @ 0 mls/hr UNSCH OTHER ; Start 01/19/17 at 17:00 Dextrose (D50w (Vial) Inj) 50 ml UNSCH PRN IV HYPOGLYCEMIA-SEE COMMENTS; Start 01/19/17 at 17:00 Glucagon (Glucagon Inj) 1 mg UNSCH PRN OTHER HYPOGLYCEMIA-SEE COMMENTS; Start 01/19/17 at 17:00 Insulin Aspart 1 1 ACHS SLIDING SCALE SQ Last administered on 01/22/17 06:45 ; Start 01/19/17 at 21:00 Sodium Chloride (NS 1000 ml Inj) 1,000 ml @ 75 mls/hr [id number] ONCE IV Last administered on 01/19/17 18:43; Start 01/19/17 at 17:00; Stop 01/19/17 at 20:01 ; Status DC Acetaminophen 650 mg 650 mg Q4H PRN PO FEVER Last administered on 01/21/17 20: 31; Start 01/19/17 at 17:00 Vancomycin HCl/ Sodium Chloride (Vancomycin Inj/ NS 250 ml Inj) 250 ml @ 250 mls/hr ONCE ONCE IV Last administered on 01/19/17 21:44; Start 01/19/17 at 17 :30; Stop 01/19/17 at 18:41; Status DC Carvedilol 12.5 mg 12.5 mg ONCE ONCE PO Last administered on 01/19/17 18:43; Start 01/19/17 at 17:45; Stop 01/19/17 at 17:46; Status DC Piperacillin Sod/ Tazobactam Sod 50 ml @ 100 mls/hr Q6H IV Last administered on 01/20/17 09:07; Start 01/19/17 at 20:00; Stop 01/20/17 at 13:45; Status DC Pharmacy Profile Note 0 ml @ 0 mls/hr UNSCH OTHER ; Start 01/19/17 at 19:45 Sodium Chloride (NS 1000 ml Inj) 1,000 ml @ 100 mls/hr Q10H IV Last administered on 01/21/17 12:00; Start 01/19/17 at 20:00; Status Hold Sodium Chloride (NS Flush) 2 ml UNSCH PRN IV FLUSH FLUSH AFTER USING IV ACCESS ; Start 01/19/17 at 19:45 Sodium Chloride (NS Flush) 2 ml BID IV FLUSH Last administered on 01/21/17 20: 30; Start 01/19/17 at 21:00 Ondansetron HCl (Zofran Inj) 4 mg Q6H PRN IVP NAUSEA OR VOMITING; Start at 19:45 Bisacodyl (Dulcolax Supp) 10 mg DAILY PRN RECTAL CONSTIPATION; Start 01/19/17 at 19:45 Hydromorphone HCl (Dilaudid Pf Inj) 1 mg Q3H PRN IV Pain 6-10 Last administered on 01/22/17 08:44; Start 01/19/17 at 19:45 Hydromorphone HCl (Dilaudid) 1 mg Q4H PRN PO PAIN SCALE 3 TO 5 Last administered on 01/22/17 10:17; Start 01/19/17 at 19:45 Miscellaneous 1 ea 1 ea UNSCH PRN OTHER SEE LABEL COMMENTS; Start 01/19/17 at 20:15 Vancomycin HCl/ Sodium Chloride (Vancomycin Inj/ NS 500 ml Inj) 516 ml @ 250 mls/hr Q24H IV ; Start 01/20/17 at 18:00; Stop 01/20/17 at 18:00; Status DC Miscellaneous Information SPECIFIC LAB TO BE ... ONCE ONCE .XX ; Start 01/22 at 17:45; Stop 01/22/17 at 17:45; Status DC Atorvastatin Calcium (Lipitor) 40 mg HS PO Last administered on 01/21/17 20:30 ; Start 01/20/17 at 21:00 Carvedilol (Coreg) 25 mg BID PO Last administered on 01/22/17 08:30; Start at 09:00 Gabapentin (Neurontin) 600 mg TID PO Last administered on 01/20/17 09:15; Start 01/20/17 at 09:00; Stop 01/20/17 at 12:04; Status DC Pantoprazole Sodium 40 mg 40 mg DAILY PO Last administered on 01/22/17 08:30; Start 01/20/17 at 09:00 Pharmacy Profile Note (Coumadin Consult Pharmacy) 0 ml @ 0 mls/hr UNSCH OTHER ; Start 01/20/17 at 08:45 Warfarin Sodium (Coumadin) 4 mg DAILY@1600 PO Last administered on 01/21/17 15 :08; Start 01/20/17 at 16:00 Patient Medication Teaching (Coumadin Booklet) 1 ONCE@1500 ONCE OTHER Last administered on 01/20/17 15:00; Start 01/20/17 at 15:00; Stop 01/20/17 at 15:01 ; Status DC Gabapentin 600 mg 600 mg DAILY PO Last administered on 01/22/17 08:29; Start 01/21/17 at 09:00 Piperacillin Sod/ Tazobactam Sod (Zosyn 2.25 Gm Premix) 50 ml @ 100 mls/hr Q6H IV Last administered on 01/22/17 08:29; Start 01/20/17 at 15:00 Lorazepam 0.5 mg 0.5 mg ONCE ONCE IV Last administered on 01/21/17 11:08; Start 01/21/17 at 10:45; Stop 01/21/17 at 10:46; Status DC Vancomycin HCl/ Sodium Chloride (Vancomycin Inj/ NS 500 ml Inj) 520 ml @ 250 mls/hr ONCE ONCE IV Last administered on 01/21/17 13:50; Start 01/21/17 at 14 :00; Stop 01/21/17 at 16:04; Status DC Warfarin Sodium (Coumadin) 2 mg DAILY@1600 ONCE PO Last administered on 15:07; Start 01/21/17 at 16:00; Stop 01/21/17 at 16:01; Status DC Clonidine (Catapres) 0.1 mg Q8HR PRN PO SBP>180, DBP>110 Last administered on 17:00; Start 01/21/17 at 16:45 Albuterol/ Ipratropium (Duoneb Neb) 1 ampule Q4HR NEB PRN NEB SOB/WHEEZING Last administered on 01/22/17 04:50; Start 01/22/17 at 04:15 A/P Assessment and Plan A/P 1. Sepsis: likely due to pneumonia continue with broad spectrum IV antibiotics- blood cultures negative so far. ID following. 2.acute respiratory failure- due to pneumonia patient refused V/Q scan- CTA can not be done due to renal insufficiency- venous doppler negative for DVT- consult pulmonary. 3. Foot Ulcers: Bilateral Stage I-II Heel Ulcers, present on admission, no drainage noted. consulted wound care. 4. Hyperkalemia: resolved. 5. acute kidney injury superimposed on chronic renal insufficiency-improved- lisinopril on hold- avoid nephrotoxins- will monitor 6. A. fib: Chronic. On Coumadin -pharmacy consulted. 7. HTN: Will monitor. Resume coreg - hold lisinopril due to renal insufficiency and hyperkalemia- start norvasc- will monitor and adjust the regimen as needed. 8. DM: Sliding scale w/ Accu-Cheks. Hold Glipizide for now to avoid hypoglycemia 9.anemia- hypochromic-microcytic; on coumadin therapy- check the iron panel/ stool for blood. 10. DVT Prophylaxis: SCD/Teds/ coumadin- Ave Vaughan MD January 22, 2017 11:16
--- NOTE | 2017-01-22 12:48 | HHI.IDPN ---
Note Infectious Disease Note Patient is up in bedside chair. Covered with blankets. Notes she feels cold. No chills. Denies cough or sputum production. Temp spike last night. WBC still elevated. SOB. Refused VQ scan. LE US - no evidence of DVT. Denies PEPPER, chest pain. Blood culture has no growth. Patient presented with fever and chills. PAST MEDICAL HISTORY 1. Hypertension. 2. COPD. 3. Atrial fibrillation. 4. Diabetes mellitus. 5. Gout. 6. Peripheral neuropathy. 7. Atrial fibrillation. 8. Amputation of left toes. 9. History of fasciotomy of the left leg. 10. Tubal ligation. ALLERGIES SULFA. IBUPROFEN. THE PATIENT ALSO HAS ALLERGIES TO EGG AND MILK. ANTIBIOTICS: MEDICATIONS Vancomycin. Piperacillin / tazobactam. OBJECTIVE: Vital Signs Date Time Temp Pulse Resp B/P Pulse Ox O2 Delivery O2 Flow Rate FiO2 01/22/17 09:12 92 Nasal Cannula 2.00 01/22/17 08:57 Nasal Cannula 3.00 Humidified 01/22/17 08:00 99.2 63 17 197/85 92 01/22/17 04:50 93 Nasal Cannula 4.00 01/22/17 04:00 97.5 69 24 154/68 92 01/22/17 03:10 Nasal Cannula 2.00 01/22/17 03:08 95 Nasal Cannula 4.00 01/22/17 00:00 98.3 62 22 140/64 94 01/21/17 20:00 101.7 73 22 205/88 96 01/21/17 18:30 75 181/76 01/21/17 17:30 20 01/21/17 16:42 99.4 78 22 197/90 94 01/21/17 01/21/17 01/22/17 15:00 23:00 07:00 Intake Total 120 ml 720 ml Balance 120 ml 720 ml Intake Oral 120 ml 720 ml # Voids 2 5 Laboratory Tests Test 01/22/17 06:51 White Blood Count 12.0 TH/MM3 Red Blood Count 4.08 MIL/MM3 Hemoglobin 8.6 GM/DL Hematocrit 28.3 % Mean Corpuscular Volume 69.2 FL Mean Corpuscular Hemoglobin 21.0 PG Mean Corpuscular Hemoglobin 30.3 % Concent Red Cell Distribution Width 17.5 % Platelet Count 193 TH/MM3 Mean Platelet Volume 9.9 FL Neutrophils (%) (Auto) 83.7 % Lymphocytes (%) (Auto) 10.9 % Monocytes (%) (Auto) 4.5 % Eosinophils (%) (Auto) 0.2 % Basophils (%) (Auto) 0.7 % Neutrophils # (Auto) 10.0 TH/MM3 Lymphocytes # (Auto) 1.3 TH/MM3 Monocytes # (Auto) 0.5 TH/MM3 Eosinophils # (Auto) 0.0 TH/MM3 Basophils # (Auto) 0.1 TH/MM3 CBC Comment DIFF FINAL Differential Comment Laboratory Tests Test 01/21/17 09:48 Creatinine 1.62 MG/DL Estimat Glomerular Filtration 40 ML/MIN Rate Procalcitonin 20.23 ng/mL Microbiology Date/Time Procedure Status Source Growth 01/19/17 14:05 Aerobic Blood Culture - Preliminary Resulted Blood Peripheral NO GROWTH IN 3 DAYS 01/19/17 14:05 Anaerobic Blood Culture - Preliminary Resulted Blood Peripheral NO GROWTH IN 3 DAYS IMAGING: Chest X-Ray 01/22/17 0000 Signed Impressions: Service Date/Time: Sunday, January 22, 2017 05:34 - CONCLUSION: Slight CHF and slight bibasilar atelectasis. Vicente Gibsb MD Lower Extremity Ultrasound 01/21/17 0000 Signed Impressions: Service Date/Time: Saturday, January 21, 2017 14:19 - CONCLUSION: 1. No evidence of deep venous thrombosis. Romel Chavez MD Chest CT 01/21/17 0000 Signed Impressions: Service Date/Time: Saturday, January 21, 2017 11:54 - CONCLUSION: 1. Examination quality is degraded by respiratory motion artifact. However, there is a diffuse interstitial process bilaterally throughout the lungs that is slightly more severe in the lower lung zones. It consists of septal thickening and groundglass opacity. Appearance is nonspecific and differential diagnostic considerations include edema, infection, or inflammatory conditions. It appears similar to the prior chest x-rays. 2. Nonspecific mediastinal lymphadenopathy. 3. There is a 19 mm left adrenal gland mass. It does not meet criteria on this examination but its lack of significant change since December 2014 is indicative of a benign process. Isaak Day MD Foot X-Ray 01/19/17 0000 Signed Impressions: Service Date/Time: Thursday, January 19, 2017 11:49 - CONCLUSION: Soft tissue swelling and postsurgical changes. Phlil A. Tushar, MD PHYSICAL EXAMINATION GENERAL: Awake and alert and oriented. HEENT: No icterus. Oropharynx moist mucosa without lesions. NECK: Supple without adenopathy. LUNGS: Decreased breath sounds. HEART: Regular rate and rhythm. No murmurs, rubs or gallops. ABDOMEN: Bowel sounds present, obese, soft, nontender. EXTREMITIES: No clubbing or cyanosis. There is mild puffiness of both lower extremities. No pitting edema. There is a tiny superficial bruise at the left heel which has mild tenderness on palpation in the region. No drainage. NEUROLOGIC: Nonfocal. SKIN: No rash. PSYCHIATRIC: Calm and cooperative. IMPRESSION 1. Fever. 2. Sepsis suggested by fever, increased respiratory rate, elevated white blood cell count. No clear source of infection. 3. Shortness of breath. Diffuse interstitial lung disease on CT scan. ? pneumonia. ? atypical PNA. High prolactin level supports pneumonia. 4. Leukocytosis. Questionable etiology. No clear evidence of the source of sepsis. Most likely lung. RECOMMENDATIONS 1. Add Azithromycin. 2. Continue vancomycin. 3. Continue piperacillin / Tazobactam. 4. Monitor white blood cell count. 5. Monitor renal function. 6. Monitor clinical status. 7. Monitor temperatures. 8. Mycoplasma, chlamydia serology. 9. Urine legionella antigen. Arik Marquis MD January 22, 2017 12:48
[2017-01-22 13:03] LABS: FERRITIN 507 NG/ML (8-252); TRANSFERRIN IRON PROFILE 153 MG/DL (200-360)
[2017-01-22] MEDS: AZITHROMYCIN 250 MG TAB PO SCH (14:18)
[2017-01-22] MEDS: WARFARIN SOD 4 MG TAB PO SCH (14:20)
[2017-01-22] MEDS: amLODIPine BESYLATE 5 MG TAB PO SCH (15:44)
[2017-01-22] MEDS ORDERED: PHARMACY ORDERED LAB ONE (17:45)
[2017-01-22] MEDS: cloNIDine HCL 0.1 MG TAB PO PRN (18:35)
[2017-01-22] MEDS: ATORVASTATIN 40 MG TAB PO SCH (21:25)
[2017-01-23] VITALS (8 sets, daily range): BP systolic 149–181; BP diastolic 66–81; PULSE 53–62; RESP 18–22; TEMP 96.8–97.9; O2SAT 93–97
[2017-01-23] MEDS: HYDROmorphone HCL PF 1 MG/ML VIAL IV PRN ×7 (00:54→21:44)
[2017-01-23] MEDS: SODIUM CHLORIDE 0.9% FLUSH 10 ML FLUSH IV FLUSH PRN ×3 (00:54→05:14)
[2017-01-23] MEDS: PIPERACIL-TAZO 2.25 GM PREMIX 50 ML IV SCH ×4 (03:16→20:48)
--- NOTE | 2017-01-23 05:49 | MB ---
cc: GUTIERREZGUTIERREZ DATE OF CONSULTATION 01/22/2017 REASON FOR CONSULTATION Question pneumonia. HISTORY OF PRESENT ILLNESS Ms. Hanna is a 51-year-old female who was hospitalized January 19 via the emergency room with fever up to 103 degrees Fahrenheit and white count at 19,500, shortness of breath. She has no cough, no expectoration, no hemoptysis. No history of TB or previous industrial exposure. CT scan of the chest with increased interstitial markings of unclear significance. PAST MEDICAL HISTORY 1. COPD. 2. Hypertension . 3. Diabetes mellitus. 4. Atrial fibrillation. 5. Previous left toe amputation. 6. Left lower extremity fasciotomy. 7. Tubal ligation MEDICATIONS 1. Neurontin. 2. Lipitor. 3. Coumadin. 4. Vancomycin. 5. Piperacillin. 6. Coreg. 7. Protonix. 8. Insulin. 9. Dilaudid. 10. Tylenol. 11. Erythromycin. SOCIAL HISTORY Does not smoke, never did. Does not drink. Does not use drugs. FAMILY HISTORY Positive for diabetes, hypertension, heart disease. ALLERGIES SULFA DRUGS. IBUPROFEN. EGGS. MILK. SYSTEMS REVIEW A 12-point review of systems as per HPI and Past History, otherwise negative. PHYSICAL EXAMINATION GENERAL: On exam the patient is alert. VITAL SIGNS: Temperature 98, pulse 80, respirations 16, blood pressure 170/60, oxygen saturation 97% on 2 liters oxygen nasal cannula. HEENT: Exam unremarkable. Eyes without icterus. NECK: Without adenopathy or thyroid enlargement. Central trachea. CHEST: Without dullness to percussion. Clear to auscultation. CARDIAC EXAM: PMI not appreciated. S1, S2 audible. 1/6 ejection systolic murmur at the left sternal border. ABDOMEN: Lax. Bowel sounds audible. EXTREMITIES: No clubbing, cyanosis or edema. LABORATORY DATA White count 12,000, hemoglobin 8, hematocrit 28, platelets 193,000. Sodium 142, potassium 4.4, BUN 57, creatinine 1.9. INR 1.8. IMPRESSION 1. Hypoxic respiratory failure. 2. Question pneumonia. 3. Sepsis. 4. Atrial fibrillation. 5. Diabetes mellitus. 6. Hypertension. PLAN 1. The patient has been started on antibiotic therapy and appropriately so. 2. A follow-up chest x-ray in a few days would be appropriate. 3. There is no clear evidence of underlying pneumonia by chest x-ray; however, underlying infection is not ruled out by CAT scan either. 4. Should the patient respond to therapy and do well, well and good. If not, bronchoscopy may be needed. 5. An echocardiogram to assess left ventricle performance would be appropriate. I do thank you for asking me to partake in Mrs. Hanna's care. Sincerely Gutierrez Whitley MD WWW/GLENN /4:53 PM /5:30 AM
[2017-01-23] MEDS: INSULIN ASPART SUPPLEMENTAL SCALE SQ SCH ×4 (05:50→20:46)
[2017-01-23] MEDS: PANTOPRAZOLE SOD 40 MG DELAYED RELEASE TAB PO SCH (08:58)
[2017-01-23] MEDS: CARVEDILOL 12.5 MG TAB PO SCH ×2 (08:59→20:48)
[2017-01-23] MEDS: GABAPENTIN 300 MG CAP PO SCH (08:59)
[2017-01-23] MEDS: AZITHROMYCIN 250 MG TAB PO SCH (08:59)
[2017-01-23] MEDS: amLODIPine BESYLATE 5 MG TAB PO SCH (09:00)
[2017-01-23 09:52] LABS: INTERNATIONAL NORMALIZED RATIO 2.1 RATIO; PROTHROMBIN TIME - PATIENT 24.1 SEC (9.8-11.6)
[2017-01-23 10:00] LABS: AUTOMATED NEUTROPHIL # 7.9 TH/MM3 (1.8-7.7); BASOPHIL # 0.1 TH/MM3 (0-0.2); BASOPHIL % 0.6 % (0.0-2.0); EOSINOPHIL # 0.1 TH/MM3 (0-0.4); EOSINOPHIL % 1.2 % (0.0-4.0); HEMATOCRIT 29.3 % (35.0-46.0); HEMO FLAGS DIFF FINAL; LYMPH % 19.1 % (9.0-44.0); MEAN CORPUSCULAR HGB CONC 30.4 % (32.0-36.0); MONO % 5.2 % (0.0-8.0); NEUT % 73.9 % (16.0-70.0); PLATELET COUNT 244 TH/MM3 (150-450); RED BLOOD COUNT 4.25 MIL/MM3 (4.00-5.30); RED CELL DISTRIBUTION WIDTH 17.7 % (11.6-17.2); WHITE BLOOD COUNT 10.7 TH/MM3 (4.0-11.0)
--- NOTE | 2017-01-23 10:30 | HHI.PR ---
Subjective Remarks Follow-up sepsis/pneumonia/respiratory failure 01/23/17-patient seen and examined, complained of shortness of breath as well as low back pain. Currently afebrile. Objective Vitals Vital Signs Date Time Temp Pulse Resp B/P Pulse Ox O2 Delivery O2 Flow Rate FiO2 01/23/17 08:00 97.6 58 18 181/81 97 01/23/17 04:00 97.8 62 22 178/75 93 01/23/17 02:40 Nasal Cannula 3.00 01/22/17 20:00 97.8 65 20 138/62 94 01/22/17 18:00 65 01/22/17 16:00 99.3 65 20 196/79 94 01/22/17 15:20 18 01/22/17 12:00 98.3 63 21 177/55 97 I/O 01/22/17 01/22/17 01/22/17 01/23/17 01/23/17 01/23/17 07:00 15:00 23:00 07:00 15:00 23:00 Intake Total 720 ml 480 ml 360 ml 120 ml Balance 720 ml 480 ml 360 ml 120 ml Intake Oral 720 ml 480 ml 360 ml 120 ml # Voids 5 2 1 2 # Bowel Movements 0 0 0 Result Diagram: 01/23/17 0916 01/21/17 0948 Imaging Last Impressions Chest X-Ray 01/22/17 0000 Signed Impressions: Service Date/Time: Sunday, January 22, 2017 05:34 - CONCLUSION: Slight CHF and slight bibasilar atelectasis. KEmma Gibbs MD Lower Extremity Ultrasound 01/21/17 0000 Signed Impressions: Service Date/Time: Saturday, January 21, 2017 14:19 - CONCLUSION: 1. No evidence of deep venous thrombosis. Romel Chavez MD Chest CT 01/21/17 0000 Signed Impressions: Service Date/Time: Saturday, January 21, 2017 11:54 - CONCLUSION: 1. Examination quality is degraded by respiratory motion artifact. However, there is a diffuse interstitial process bilaterally throughout the lungs that is slightly more severe in the lower lung zones. It consists of septal thickening and groundglass opacity. Appearance is nonspecific and differential diagnostic considerations include edema, infection, or inflammatory conditions. It appears similar to the prior chest x-rays. 2. Nonspecific mediastinal lymphadenopathy. 3. There is a 19 mm left adrenal gland mass. It does not meet criteria on this examination but its lack of significant change since December 2014 is indicative of a benign process. Isaak Day MD Foot X-Ray 01/19/17 0000 Signed Impressions: Service Date/Time: Thursday, January 19, 2017 11:49 - CONCLUSION: Soft tissue swelling and postsurgical changes. Phill Finley MD Objective Remarks GENERAL: NAD SKIN: Warm and dry. HEAD: Normocephalic. EYES: No scleral icterus. No injection or drainage. NECK: Supple, trachea midline. No JVD or lymphadenopathy. CARDIOVASCULAR: irreg Regular rate and rhythm without murmurs, gallops, or rubs. RESPIRATORY: Breath sounds equal bilaterally. No accessory muscle use. GASTROINTESTINAL: Abdomen soft, non-tender, nondistended. MUSCULOSKELETAL: No cyanosis; +BLE chronic ulcers. BACK: Nontender without obvious deformity. No CVA tenderness. Procedures none A/P Problem List: (1) Sepsis ICD Code: A41.9 Status: Acute (2) Foot ulcer ICD Code: L97.509 Status: Acute (3) Hyperkalemia ICD Code: E87.5 Status: Acute (4) Renal insufficiency ICD Code: N28.9 Status: Acute (5) A-fib ICD Code: I48.91 Status: Acute (6) HTN (hypertension) ICD Code: I10 Status: Acute (7) DM (diabetes mellitus) ICD Code: E11.9 Status: Acute Assessment and Plan 51 yrs old female 1. Sepsis: likely due to pneumonia continue with broad spectrum IV antibiotics- including Azithromycin, Vancomycin, Zosyn. blood cultures NTD. ID following and Mycoplasma, chlamydia serology pending 2.Acute respiratory failure- due to pneumonia patient refused V/Q scan- however CTA could not be done due to renal insufficiency- venous doppler negative for DVT- Pulmonary medicine following. Continue with DuoNeb when necessary 3. Foot Ulcers: Bilateral Stage I-II Heel Ulcers, no drainage noted. Appreciate input from wound care 4. Hyperkalemia: resolved. 5. Acute kidney injury superimposed on chronic renal insufficiency-improved- lisinopril on hold- avoid nephrotoxins- will monitor 6. A. fib: Chronic. On Coumadin -pharmacy consulted. 7. HTN: Continue Coreg and Norvasc - hold lisinopril due to renal insufficiency and hyperkalemia- 8. DM: Sliding scale w/ Accu-Cheks. Hold Glipizide and continue sliding scale insulin 9. Anemia- hypochromic-microcytic; stable and monitor H&H 10. DVT Prophylaxis: SCD/Teds/ Coumadin- Problem Qualifiers (1) Sepsis: Qualified Code: A41.9 - Sepsis, due to unspecified organism Bruno Bey MD January 23, 2017 10:30 Bruno Bey MD January 23, 2017 10:30
--- NOTE | 2017-01-23 11:54 | PQ ---
Physician Query Response Document PATIENT: JONELLE MAURICIO : 1965 ADMIT DATE: 01/19/2017 4:55 PM DISCH DATE: RESPONDING PROVIDER #: [email or web address] QUERY TEXT: CHF Acuity and Type Congestive Heart Failure is documented in the Medical Record. Please document the TYPE and ACUITY (in cludes probable or suspected) Such as: TYPE: -- Systolic -- Diastolic -- Combined -- Other, please specify ACUITY: -- Acute -- Chronic -- Acute on chronic -- Other, please specify Also please document the underlying cause of the CHF (includes probable or suspected) The patient's Clinical Indicators include: Echocardiogram (09/04/16) Summary: The cavity size was normal. Wall thickness was normal. Systolic function was mildly reduced . The estimated Ejection fraction was in the reange of 45% to 50%. Wall motion was normal; there we re no regional wall motion abnormalities. BNP (01/19/17) 88 Query created by: Miguel Nolasco on 01/21/2017 12:07 PM RESPONSE TEXT: Chronic systolic CHF. Electronically signed by: Ave Vaughan MD 01/23/2017 11:50 AM
--- NOTE | 2017-01-23 12:43 | HHI.IDPN ---
Note Infectious Disease Note Patient is sitting on side of bed. Notes she feels cold. No chills. Notes pain in her back and legs. Scant dry cough. Afebrile. WBC lower. (+)SOB. Refused VQ scan. LE US - no evidence of DVT. Pulmonary report seen. Blood culture has no growth. Patient presented with fever and chills. PAST MEDICAL HISTORY 1. Hypertension. 2. COPD. 3. Atrial fibrillation. 4. Diabetes mellitus. 5. Gout. 6. Peripheral neuropathy. 7. Atrial fibrillation. 8. Amputation of left toes. 9. History of fasciotomy of the left leg. 10. Tubal ligation. ALLERGIES SULFA. IBUPROFEN. THE PATIENT ALSO HAS ALLERGIES TO EGG AND MILK. ANTIBIOTICS: MEDICATIONS Vancomycin. Piperacillin / tazobactam. OBJECTIVE: Vital Signs Date Time Temp Pulse Resp B/P Pulse Ox O2 Delivery O2 Flow Rate FiO2 01/23/17 08:00 97.6 58 18 181/81 97 01/23/17 04:00 97.8 62 22 178/75 93 01/23/17 02:40 Nasal Cannula 3.00 01/22/17 20:00 97.8 65 20 138/62 94 01/22/17 18:00 65 01/22/17 16:00 99.3 65 20 196/79 94 01/22/17 15:20 18 01/22/17 01/22/17 01/23/17 15:00 23:00 07:00 Intake Total 480 ml 360 ml 120 ml Balance 480 ml 360 ml 120 ml Intake Oral 480 ml 360 ml 120 ml # Voids 2 1 2 # Bowel Movements 0 0 0 Laboratory Tests Test 01/22/17 01/23/17 06:51 09:16 White Blood Count 12.0 TH/MM3 10.7 TH/MM3 Red Blood Count 4.08 MIL/MM3 4.25 MIL/MM3 Hemoglobin 8.6 GM/DL 8.9 GM/DL Hematocrit 28.3 % 29.3 % Mean Corpuscular Volume 69.2 FL 69.0 FL Mean Corpuscular Hemoglobin 21.0 PG 21.0 PG Mean Corpuscular Hemoglobin 30.3 % 30.4 % Concent Red Cell Distribution Width 17.5 % 17.7 % Platelet Count 193 TH/MM3 244 TH/MM3 Mean Platelet Volume 9.9 FL 10.0 FL Neutrophils (%) (Auto) 83.7 % 73.9 % Lymphocytes (%) (Auto) 10.9 % 19.1 % Monocytes (%) (Auto) 4.5 % 5.2 % Eosinophils (%) (Auto) 0.2 % 1.2 % Basophils (%) (Auto) 0.7 % 0.6 % Neutrophils # (Auto) 10.0 TH/MM3 7.9 TH/MM3 Lymphocytes # (Auto) 1.3 TH/MM3 2.0 TH/MM3 Monocytes # (Auto) 0.5 TH/MM3 0.6 TH/MM3 Eosinophils # (Auto) 0.0 TH/MM3 0.1 TH/MM3 Basophils # (Auto) 0.1 TH/MM3 0.1 TH/MM3 CBC Comment DIFF FINAL DIFF FINAL Differential Comment Laboratory Tests Test 01/22/17 12:00 Iron Level 18 MCG/DL Total Iron Binding Capacity 214 MCG/DL Percent Iron Saturation 8.4 % Ferritin 507 NG/ML IMAGING: Chest X-Ray 01/22/17 0000 Signed Impressions: Service Date/Time: Sunday, January 22, 2017 05:34 - CONCLUSION: Slight CHF and slight bibasilar atelectasis. KEmma Gibbs MD Lower Extremity Ultrasound 01/21/17 0000 Signed Impressions: Service Date/Time: Saturday, January 21, 2017 14:19 - CONCLUSION: 1. No evidence of deep venous thrombosis. Romel Chavez MD Chest CT 01/21/17 0000 Signed Impressions: Service Date/Time: Saturday, January 21, 2017 11:54 - CONCLUSION: 1. Examination quality is degraded by respiratory motion artifact. However, there is a diffuse interstitial process bilaterally throughout the lungs that is slightly more severe in the lower lung zones. It consists of septal thickening and groundglass opacity. Appearance is nonspecific and differential diagnostic considerations include edema, infection, or inflammatory conditions. It appears similar to the prior chest x-rays. 2. Nonspecific mediastinal lymphadenopathy. 3. There is a 19 mm left adrenal gland mass. It does not meet criteria on this examination but its lack of significant change since December 2014 is indicative of a benign process. Isaak Day MD Foot X-Ray 01/19/17 0000 Signed Impressions: Service Date/Time: Thursday, January 19, 2017 11:49 - CONCLUSION: Soft tissue swelling and postsurgical changes. Phill Finley MD PHYSICAL EXAMINATION GENERAL: Awake and alert and oriented. HEENT: No icterus. Oropharynx moist mucosa without lesions. NECK: Supple without adenopathy. LUNGS: Decreased breath sounds same. HEART: Regular rate and rhythm. No murmurs, rubs or gallops. ABDOMEN: Bowel sounds present, obese, soft, nontender. EXTREMITIES: No clubbing or cyanosis. There is mild puffiness of both lower extremities. No pitting edema. There is a tiny superficial bruise at the left heel which has mild tenderness on palpation in the region. No drainage. NEUROLOGIC: Nonfocal. SKIN: No rash. PSYCHIATRIC: Calm and cooperative. IMPRESSION 1. Fever. Improved. 2. Sepsis suggested by fever, increased respiratory rate, elevated white blood cell count. No clear source of infection. 3. Shortness of breath. Diffuse interstitial lung disease on CT scan. ? pneumonia. ? atypical PNA. High prolactin level supports pneumonia. 4. Leukocytosis. Questionable etiology. No clear evidence of the source of sepsis. Most likely lung. RECOMMENDATIONS 1. Continue Azithromycin. 2. Stop vancomycin. 3. Continue piperacillin / Tazobactam. 4. Monitor renal function. 5. Monitor clinical status. 6. Monitor temperatures. Arik Marquis MD January 23, 2017 12:43
[2017-01-23 13:30] LABS: BICARBONATE 21.3 MEQ/L (21.0-32.0); POTASSIUM 4.3 MEQ/L (3.5-5.1)
[2017-01-23] MEDS: WARFARIN SOD 4 MG TAB PO SCH (15:38)
--- NOTE | 2017-01-23 16:07 | HHI.PR ---
Subjective Remarks ALERT AFEBRILE OCC COUGH AGUILAR O2 SAT 95% ON 2L N/C Objective Vital Signs Date Time Temp Pulse Resp B/P Pulse Ox O2 Delivery O2 Flow Rate FiO2 01/23/17 15:34 95 Nasal Cannula 2.00 01/23/17 12:00 96.8 62 18 158/68 94 01/23/17 08:00 97.6 58 18 181/81 97 01/23/17 07:00 Nasal Cannula 2.00 01/23/17 04:00 97.8 62 22 178/75 93 01/23/17 02:40 Nasal Cannula 3.00 01/22/17 20:00 97.8 65 20 138/62 94 01/22/17 18:00 65 I/O 01/22/17 01/22/17 01/22/17 01/23/17 01/23/17 01/23/17 07:00 15:00 23:00 07:00 15:00 23:00 Intake Total 720 ml 480 ml 360 ml 120 ml Balance 720 ml 480 ml 360 ml 120 ml Intake Oral 720 ml 480 ml 360 ml 120 ml # Voids 5 2 1 2 # Bowel Movements 0 0 0 Result Diagram: 01/23/17 0916 01/23/17 1245 Objective Remarks GENERAL: SKIN: Warm and dry. HEAD: Atraumatic. Normocephalic. EYES: Pupils equal and round. No scleral icterus. No injection or drainage. ENT: No nasal bleeding or discharge. Mucous membranes pink and moist. NECK: Trachea midline. No JVD. CARDIOVASCULAR: Regular rate and rhythm. RESPIRATORY: No accessory muscle use. Clear to auscultation. Breath sounds equal bilaterally. GASTROINTESTINAL: Abdomen soft, non-tender, nondistended. Hepatic and splenic margins not palpable. MUSCULOSKELETAL: Extremities without clubbing, cyanosis, or edema. No obvious deformities. NEUROLOGICAL: Awake and alert. No obvious cranial nerve deficits. Motor grossly within normal limits. Five out of 5 muscle strength in the arms and legs. Normal speech. PSYCHIATRIC: Appropriate mood and affect; insight and judgment normal. Assessment and Plan Assessment and Plan IMPRESSION RESPIRATORY FAILURE ? PNA PLAN O2 ANTIBIOTICS F/U CXRAGutierrez Tompkins MD January 23, 2017 16:07
[2017-01-23] MEDS: ATORVASTATIN 40 MG TAB PO SCH (20:48)
[2017-01-23] MEDS: SODIUM CHLORIDE 0.9% FLUSH 10 ML FLUSH IV FLUSH SCH (20:49)
[2017-01-23] MEDS: RESP: ALBUTEROL 2.5 MG/IPRATROPIUM 0.5 MG NEB (PRN) NEB (22:18)
[2017-01-24] VITALS (12 sets, daily range): BP systolic 132–175; BP diastolic 61–89; PULSE 49–99; RESP 18–21; TEMP 97–99; O2SAT 93–98
[2017-01-24] MEDS: HYDROmorphone HCL PF 1 MG/ML VIAL IV PRN ×8 (00:40→23:25)
[2017-01-24] MEDS: PIPERACIL-TAZO 2.25 GM PREMIX 50 ML IV SCH ×4 (04:02→20:11)
[2017-01-24] MEDS: INSULIN ASPART SUPPLEMENTAL SCALE SQ SCH ×4 (06:17→20:14)
[2017-01-24] MEDS: PANTOPRAZOLE SOD 40 MG DELAYED RELEASE TAB PO SCH (08:18)
[2017-01-24] MEDS: GABAPENTIN 300 MG CAP PO SCH (08:18)
[2017-01-24] MEDS: CARVEDILOL 12.5 MG TAB PO SCH ×2 (08:18→20:11)
[2017-01-24] MEDS: AZITHROMYCIN 250 MG TAB PO SCH (08:18)
[2017-01-24] MEDS: amLODIPine BESYLATE 5 MG TAB PO SCH (08:18)
[2017-01-24 08:19] LABS: INTERNATIONAL NORMALIZED RATIO 2.5 RATIO
[2017-01-24] MEDS: SODIUM CHLORIDE 0.9% FLUSH 10 ML FLUSH IV FLUSH SCH ×2 (08:19→20:11)
[2017-01-24 08:22] LABS: PROTHROMBIN TIME - PATIENT 28.5 SEC (9.8-11.6)
--- NOTE | 2017-01-24 09:07 | HHI.PR ---
Subjective Remarks Follow-up sepsis/pneumonia/respiratory failure 01/23/17-patient seen and examined, complained of shortness of breath as well as low back pain. Currently afebrile. 01/24/17-patient seen and examined; +mild SOB, Afebrile, states however she is feeling somehow better but not much of an appetite Objective Vitals Vital Signs Date Time Temp Pulse Resp B/P Pulse Ox O2 Delivery O2 Flow Rate FiO2 01/24/17 08:40 53 01/24/17 08:39 97.3 57 18 171/70 97 01/24/17 08:28 Nasal Cannula 2.00 01/24/17 05:00 55 01/24/17 04:00 97.3 57 20 175/89 94 01/24/17 03:30 54 01/24/17 02:20 49 01/24/17 01:34 20 01/24/17 00:00 98.0 55 20 132/61 93 01/23/17 22:20 96 Nasal Cannula 2.00 01/23/17 21:36 54 01/23/17 20:00 97.9 53 20 149/66 93 01/23/17 17:44 97.8 61 18 149/71 95 01/23/17 15:34 95 Nasal Cannula 2.00 01/23/17 12:00 96.8 62 18 158/68 94 I/O 01/23/17 01/23/17 01/23/17 01/24/17 01/24/17 01/24/17 07:00 15:00 23:00 07:00 15:00 23:00 Intake Total 120 ml 720 ml 120 ml Balance 120 ml 720 ml 120 ml Intake Oral 120 ml 720 ml 120 ml # Voids 2 5 2 # Bowel Movements 0 0 0 Result Diagram: 01/23/17 0916 01/23/17 1245 Objective Remarks GENERAL: NAD SKIN: Warm and dry. HEAD: Normocephalic. EYES: No scleral icterus. No injection or drainage. NECK: Supple, trachea midline. No JVD or lymphadenopathy. CARDIOVASCULAR: irreg Regular rate and rhythm without murmurs, gallops, or rubs. RESPIRATORY: Breath sounds equal bilaterally. No accessory muscle use. GASTROINTESTINAL: Abdomen soft, non-tender, nondistended. MUSCULOSKELETAL: No cyanosis; +BLE chronic ulcers. BACK: Nontender without obvious deformity. No CVA tenderness. Procedures none A/P Problem List: (1) Sepsis ICD Code: A41.9 Status: Acute (2) Foot ulcer ICD Code: L97.509 Status: Acute (3) Hyperkalemia ICD Code: E87.5 Status: Acute (4) Renal insufficiency ICD Code: N28.9 Status: Acute (5) A-fib ICD Code: I48.91 Status: Acute (6) HTN (hypertension) ICD Code: I10 Status: Acute (7) DM (diabetes mellitus) ICD Code: E11.9 Status: Acute Assessment and Plan 51 yrs old female 1. Sepsis: likely due to pneumonia continue with broad spectrum IV antibiotics- including Azithromycin and Zosyn. blood cultures NTD. ID following and Mycoplasma, chlamydia serology pending 2.Acute respiratory failure- due to pneumonia patient refused V/Q scan- however CTA could not be done due to renal insufficiency- venous doppler negative for DVT- Pulmonary medicine following. Continue with DuoNeb when necessary 3. Foot Ulcers: Bilateral Stage I-II Heel Ulcers, no drainage noted. Appreciate input from wound care 4. Hyperkalemia: resolved. 5. Acute kidney injury superimposed on chronic renal insufficiency-improved- lisinopril on hold- avoid nephrotoxins- monitor 6. A. fib: Chronic. On Coumadin -pharmacy consulted. 7. HTN: Continue Coreg and Norvasc - hold lisinopril due to renal insufficiency and hyperkalemia- 8. DM: Sliding scale w/ Accu-Cheks. Hold Glipizide and continue sliding scale insulin 9. Anemia- hypochromic-microcytic; stable and monitor H&H 10. DVT Prophylaxis: SCD/Teds/ Coumadin- Problem Qualifiers (1) Sepsis: Qualified Code: A41.9 - Sepsis, due to unspecified organism Bruno Bey MD January 24, 2017 09:07
--- NOTE | 2017-01-24 09:15 | HHI.PR ---
Subjective Remarks ALERT AFEBRILE OCC COUGH AGUILAR O2 SAT 95% ON 2L N/C Objective Vital Signs Date Time Temp Pulse Resp B/P Pulse Ox O2 Delivery O2 Flow Rate FiO2 01/24/17 08:40 53 01/24/17 08:39 97.3 57 18 171/70 97 01/24/17 08:28 Nasal Cannula 2.00 01/24/17 05:00 55 01/24/17 04:00 97.3 57 20 175/89 94 01/24/17 03:30 54 01/24/17 02:20 49 01/24/17 01:34 20 01/24/17 00:00 98.0 55 20 132/61 93 01/23/17 22:20 96 Nasal Cannula 2.00 01/23/17 21:36 54 01/23/17 20:00 97.9 53 20 149/66 93 01/23/17 17:44 97.8 61 18 149/71 95 01/23/17 15:34 95 Nasal Cannula 2.00 01/23/17 12:00 96.8 62 18 158/68 94 I/O 01/23/17 01/23/17 01/23/17 01/24/17 01/24/17 01/24/17 07:00 15:00 23:00 07:00 15:00 23:00 Intake Total 120 ml 720 ml 120 ml Balance 120 ml 720 ml 120 ml Intake Oral 120 ml 720 ml 120 ml # Voids 2 5 2 # Bowel Movements 0 0 0 Result Diagram: 01/23/17 0916 01/23/17 1245 Objective Remarks GENERAL: SKIN: Warm and dry. HEAD: Atraumatic. Normocephalic. EYES: Pupils equal and round. No scleral icterus. No injection or drainage. ENT: No nasal bleeding or discharge. Mucous membranes pink and moist. NECK: Trachea midline. No JVD. CARDIOVASCULAR: Regular rate and rhythm. RESPIRATORY: No accessory muscle use. Clear to auscultation. Breath sounds equal bilaterally. GASTROINTESTINAL: Abdomen soft, non-tender, nondistended. Hepatic and splenic margins not palpable. MUSCULOSKELETAL: Extremities without clubbing, cyanosis, or edema. No obvious deformities. NEUROLOGICAL: Awake and alert. No obvious cranial nerve deficits. Motor grossly within normal limits. Five out of 5 muscle strength in the arms and legs. Normal speech. PSYCHIATRIC: Appropriate mood and affect; insight and judgment normal. Assessment and Plan Assessment and Plan IMPRESSION RESPIRATORY FAILURE ? PNA , chf PLAN O2 ANTIBIOTICS F/U CXRAY few days Gutierrez Whitley MD January 24, 2017 09:15
--- NOTE | 2017-01-24 11:35 | RADRPT ---
EXAM DATE/TIME: 01/24/2017 10:52 [facility] COMPARISON: CHEST SINGLE AP, January 22, 2017, 5:34. INDICATIONS : Shortness of Breath MEDICAL HISTORY : Congestive heart failure. Chronic obstructive pulmonary disease. Diabetes SURGICAL HISTORY : Tonsillectomy. Tubal ligation. Mastectomy ENCOUNTER: Subsequent ACUITY: 4 - 6 days PAIN SCORE: 0/10 LOCATION: Bilateral chest FINDINGS: Compare January 22. Again seen is interstitial lung disease, nonspecific on chest radiograph. Differentia l diagnosis includes some inflammatory changes or mild edema. Heart size is mildly enlarged. Trace pl eural fluid. CONCLUSION: 1. Stable interstitial lung disease since January 22 considering slight differences in technique. Trace p leural fluid. Cardiomegaly. Travis Bellamy MD on January 24, 2017 at 11:31 Board Certified Radiologist. This report was verified electronically.
--- NOTE | 2017-01-24 13:03 | HHI.IDPN ---
Note Infectious Disease Note Patient Notes episode of SOB earlier. On O2 via NC. Feels cold. No chills. Scant dry cough. Afebrile. CXR - interstitial infiltrates. Refused VQ scan. LE US - no evidence of DVT. Patient presented with fever and chills. PAST MEDICAL HISTORY 1. Hypertension. 2. COPD. 3. Atrial fibrillation. 4. Diabetes mellitus. 5. Gout. 6. Peripheral neuropathy. 7. Atrial fibrillation. 8. Amputation of left toes. 9. History of fasciotomy of the left leg. 10. Tubal ligation. ALLERGIES SULFA. IBUPROFEN. THE PATIENT ALSO HAS ALLERGIES TO EGG AND MILK. ANTIBIOTICS: MEDICATIONS Piperacillin / tazobactam. Azithromycin. OBJECTIVE: Vital Signs Date Time Temp Pulse Resp B/P Pulse Ox O2 Delivery O2 Flow Rate FiO2 01/24/17 11:34 97 Nasal Cannula 2.00 01/24/17 08:40 53 01/24/17 08:39 97.3 57 18 171/70 97 01/24/17 08:28 Nasal Cannula 2.00 01/24/17 05:00 55 01/24/17 04:00 97.3 57 20 175/89 94 01/24/17 03:30 54 01/24/17 02:20 49 01/24/17 01:34 20 01/24/17 00:00 98.0 55 20 132/61 93 01/23/17 22:20 96 Nasal Cannula 2.00 01/23/17 21:36 54 01/23/17 20:00 97.9 53 20 149/66 93 01/23/17 17:44 97.8 61 18 149/71 95 01/23/17 15:34 95 Nasal Cannula 2.00 01/23/17 01/23/17 01/24/17 15:00 23:00 07:00 Intake Total 720 ml 120 ml Balance 720 ml 120 ml Intake Oral 720 ml 120 ml # Voids 5 2 # Bowel Movements 0 0 Laboratory Tests Test 01/23/17 09:16 White Blood Count 10.7 TH/MM3 Red Blood Count 4.25 MIL/MM3 Hemoglobin 8.9 GM/DL Hematocrit 29.3 % Mean Corpuscular Volume 69.0 FL Mean Corpuscular Hemoglobin 21.0 PG Mean Corpuscular Hemoglobin 30.4 % Concent Red Cell Distribution Width 17.7 % Platelet Count 244 TH/MM3 Mean Platelet Volume 10.0 FL Neutrophils (%) (Auto) 73.9 % Lymphocytes (%) (Auto) 19.1 % Monocytes (%) (Auto) 5.2 % Eosinophils (%) (Auto) 1.2 % Basophils (%) (Auto) 0.6 % Neutrophils # (Auto) 7.9 TH/MM3 Lymphocytes # (Auto) 2.0 TH/MM3 Monocytes # (Auto) 0.6 TH/MM3 Eosinophils # (Auto) 0.1 TH/MM3 Basophils # (Auto) 0.1 TH/MM3 CBC Comment DIFF FINAL Differential Comment Laboratory Tests Test 01/23/17 12:45 Sodium Level 137 MEQ/L Potassium Level 4.3 MEQ/L Chloride Level 108 MEQ/L Carbon Dioxide Level 21.3 MEQ/L Anion Gap 8 MEQ/L Blood Urea Nitrogen 43 MG/DL Creatinine 1.61 MG/DL Estimat Glomerular Filtration 41 ML/MIN Rate Random Glucose 230 MG/DL Calcium Level 9.2 MG/DL IMAGING: Chest X-Ray 01/24/17 0000 Signed Impressions: Service Date/Time: Tuesday, January 24, 2017 10:52 - CONCLUSION: 1. Stable interstitial lung disease since January 22 considering slight differences in technique. Trace pleural fluid. Cardiomegaly. Travis Bellamy MD Chest X-Ray 01/22/17 0000 Signed Impressions: Service Date/Time: Sunday, January 22, 2017 05:34 - CONCLUSION: Slight CHF and slight bibasilar atelectasis. Vicente Gibbs MD Lower Extremity Ultrasound 01/21/17 0000 Signed Impressions: Service Date/Time: Saturday, January 21, 2017 14:19 - CONCLUSION: 1. No evidence of deep venous thrombosis. Romel Chavez MD Chest CT 01/21/17 0000 Signed Impressions: Service Date/Time: Saturday, January 21, 2017 11:54 - CONCLUSION: 1. Examination quality is degraded by respiratory motion artifact. However, there is a diffuse interstitial process bilaterally throughout the lungs that is slightly more severe in the lower lung zones. It consists of septal thickening and groundglass opacity. Appearance is nonspecific and differential diagnostic considerations include edema, infection, or inflammatory conditions. It appears similar to the prior chest x-rays. 2. Nonspecific mediastinal lymphadenopathy. 3. There is a 19 mm left adrenal gland mass. It does not meet criteria on this examination but its lack of significant change since December 2014 is indicative of a benign process. Isaak Day MD Foot X-Ray 01/19/17 0000 Signed Impressions: Service Date/Time: Thursday, January 19, 2017 11:49 - CONCLUSION: Soft tissue swelling and postsurgical changes. Phill Finley MD PHYSICAL EXAMINATION GENERAL: Awake and alert and oriented. HEENT: No icterus. Oropharynx moist mucosa without lesions. NECK: Supple without adenopathy. LUNGS: Decreased breath sounds. HEART: Regular rate and rhythm. No murmurs, rubs or gallops. ABDOMEN: Bowel sounds present, obese, soft, nontender. EXTREMITIES: No clubbing or cyanosis. No pitting edema. There is a tiny superficial bruise at the left heel which has mild tenderness on palpation in the region. No drainage. NEUROLOGIC: Nonfocal. SKIN: No rash. PSYCHIATRIC: Calm and cooperative. IMPRESSION 1. Fever. Improved. 2. Sepsis suggested by fever, increased respiratory rate, elevated white blood cell count. No clear source of infection. 3. Pneumonia. Diffuse interstitial lung disease on CT scan. ? atypical PNA. High prolactin level supports pneumonia. Still having SOB. 4. Leukocytosis. Questionable etiology. RECOMMENDATIONS 1. Continue Azithromycin. 2. Continue piperacillin / Tazobactam. 3. Monitor renal function. 4. Monitor clinical status. 5. Monitor temperatures. 6. Pulmonary following. Arik Marquis MD January 24, 2017 13:03
[2017-01-24] MEDS: WARFARIN SOD 3 MG TAB PO SCH (16:07)
[2017-01-24] MEDS: ATORVASTATIN 40 MG TAB PO SCH (20:11)
[2017-01-24 21:35] LABS: MAGNESIUM 2.3 MG/DL (1.5-2.5)
[2017-01-24] MEDS: RESP: ALBUTEROL 2.5 MG/IPRATROPIUM 0.5 MG NEB (PRN) NEB (23:02)
[2017-01-25] VITALS (9 sets, daily range): BP systolic 153–184; BP diastolic 67–78; PULSE 59–68; RESP 19–24; TEMP 97.3–99; O2SAT 93–97
[2017-01-25] MEDS: PIPERACIL-TAZO 2.25 GM PREMIX 50 ML IV SCH ×4 (02:50→22:24)
[2017-01-25] MEDS: HYDROmorphone HCL PF 1 MG/ML VIAL IV PRN ×7 (02:50→22:24)
[2017-01-25] MEDS: INSULIN ASPART SUPPLEMENTAL SCALE SQ SCH ×4 (06:06→22:06)
[2017-01-25] MEDS: amLODIPine BESYLATE 5 MG TAB PO SCH (08:25)
[2017-01-25] MEDS: PANTOPRAZOLE SOD 40 MG DELAYED RELEASE TAB PO SCH (08:25)
[2017-01-25] MEDS: AZITHROMYCIN 250 MG TAB PO SCH (08:25)
[2017-01-25] MEDS: GABAPENTIN 300 MG CAP PO SCH (08:25)
[2017-01-25] MEDS: CARVEDILOL 12.5 MG TAB PO SCH ×2 (08:25→22:24)
[2017-01-25] MEDS: SODIUM CHLORIDE 0.9% FLUSH 10 ML FLUSH IV FLUSH SCH ×2 (08:27→22:24)
--- NOTE | 2017-01-25 09:25 | HHI.PR ---
Subjective Remarks Follow-up sepsis/pneumonia/respiratory failure 01/23/17-patient seen and examined, complained of shortness of breath as well as low back pain. Currently afebrile. 01/24/17-patient seen and examined; +mild SOB, Afebrile, states however she is feeling somehow better but not much of an appetite 01/25/17-patient seen and examined; she had runs of bigeminy yesterday however resolved. States she could not sleep last night because couldn't be comfortable. Denies any shortness of breath. Currently afebrile Objective Vitals Vital Signs Date Time Temp Pulse Resp B/P Pulse Ox O2 Delivery O2 Flow Rate FiO2 01/25/17 09:12 96 Nasal Cannula 2.00 01/25/17 08:58 97.3 59 20 184/74 95 01/25/17 08:36 Nasal Cannula 2.00 01/25/17 04:30 98.0 60 20 171/73 93 01/25/17 00:00 99.0 60 23 167/72 94 01/24/17 23:02 98 Nasal Cannula 2.00 01/24/17 21:15 99.0 59 21 175/74 96 01/24/17 16:23 97.0 99 18 144/63 97 01/24/17 12:00 97.8 55 18 151/67 97 01/24/17 11:34 97 Nasal Cannula 2.00 I/O 01/24/17 01/24/17 01/24/17 01/25/17 01/25/17 01/25/17 07:00 15:00 23:00 07:00 15:00 23:00 Intake Total 120 ml 480 ml 825 ml Balance 120 ml 480 ml 825 ml Intake Oral 120 ml 480 ml 825 ml # Voids 2 3 2 # Bowel Movements 0 1 0 Result Diagram: 01/23/17 0916 01/23/17 1245 Objective Remarks GENERAL: NAD and sitting in a chair SKIN: Warm and dry. HEAD: Normocephalic. EYES: No scleral icterus. No injection or drainage. NECK: Supple, trachea midline. No JVD or lymphadenopathy. CARDIOVASCULAR: irreg Regular rate and rhythm without murmurs, gallops, or rubs. RESPIRATORY: Breath sounds equal bilaterally. No accessory muscle use. GASTROINTESTINAL: Abdomen soft, non-tender, nondistended. MUSCULOSKELETAL: No cyanosis; +BLE chronic ulcers. BACK: Nontender without obvious deformity. No CVA tenderness. Procedures none A/P Problem List: (1) Sepsis ICD Code: A41.9 Status: Acute (2) Foot ulcer ICD Code: L97.509 Status: Acute (3) Hyperkalemia ICD Code: E87.5 Status: Acute (4) Renal insufficiency ICD Code: N28.9 Status: Acute (5) A-fib ICD Code: I48.91 Status: Acute (6) HTN (hypertension) ICD Code: I10 Status: Acute (7) DM (diabetes mellitus) ICD Code: E11.9 Status: Acute Assessment and Plan 51 yrs old female 1. Sepsis: Now resolved, likely due to pneumonia continue with broad spectrum IV antibiotics- including Azithromycin and Zosyn. blood cultures NTD. ID following and Mycoplasma serology negative, chlamydia serology pending 2.Acute respiratory failure- due to pneumonia patient refused V/Q scan- however CTA could not be done due to renal insufficiency- venous doppler negative for DVT- Pulmonary medicine following. Continue with DuoNeb when necessary 3. Foot Ulcers: Bilateral Stage I-II Heel Ulcers, no drainage noted. Appreciate input from wound care 4. Hyperkalemia: resolved. 5. Acute kidney injury superimposed on chronic renal insufficiency-improved- lisinopril on hold- avoid nephrotoxins- monitor 6. A. fib: Chronic. On Coumadin 7. HTN: Labile blood pressure. Resume nifedipine ER 60 mg daily and Continue Coreg and Norvasc - hold lisinopril due to renal insufficiency 8. DM: Labile blood glucose, resume Lantus 50 units twice a day and continue Sliding scale w/ Accu-Cheks. Continue to Hold Glipizide 9. Anemia- hypochromic-microcytic; stable and monitor H&H 10. DVT Prophylaxis: SCD/Teds/ Coumadin- Problem Qualifiers (1) Sepsis: Qualified Code: A41.9 - Sepsis, due to unspecified organism Bruno Bey MD January 25, 2017 09:25
[2017-01-25] MEDS: NIFEdipine 60 MG SUSTAINED RELEASE TAB PO SCH (10:15)
[2017-01-25 12:50] LABS: INTERNATIONAL NORMALIZED RATIO 1.7 RATIO; PROTHROMBIN TIME - PATIENT 19.4 SEC (9.8-11.6)
[2017-01-25] MEDS: WARFARIN SOD 3 MG TAB PO SCH (16:10)
[2017-01-25] MEDS: SODIUM CHLORIDE 0.9% FLUSH 10 ML FLUSH IV FLUSH PRN (16:12)
--- NOTE | 2017-01-25 16:30 | HHI.PR ---
Subjective Remarks 51 YOAA female with Pn, Resp insuff Up in chair Breathing better Weaned to NC Objective Vital Signs Vital Signs Date Time Temp Pulse Resp B/P Pulse Ox O2 Delivery O2 Flow Rate FiO2 01/25/17 16:13 97.8 60 20 156/67 95 01/25/17 12:16 97.5 68 19 183/78 94 01/25/17 10:42 65 01/25/17 09:12 96 Nasal Cannula 2.00 01/25/17 08:58 97.3 59 20 184/74 95 01/25/17 08:36 Nasal Cannula 2.00 01/25/17 04:30 98.0 60 20 171/73 93 01/25/17 00:00 99.0 60 23 167/72 94 01/24/17 23:02 98 Nasal Cannula 2.00 01/24/17 21:15 99.0 59 21 175/74 96 I/O 01/24/17 01/24/17 01/24/17 01/25/17 01/25/17 01/25/17 07:00 15:00 23:00 07:00 15:00 23:00 Intake Total 120 ml 480 ml 825 ml Balance 120 ml 480 ml 825 ml Intake Oral 120 ml 480 ml 825 ml # Voids 2 3 2 # Bowel Movements 0 1 0 Result Diagram: 01/23/17 0916 01/23/17 1245 Objective Remarks GENERAL: WBWN female,NAD SKIN: Warm and dry. HEAD: Normocephalic. EYES: No scleral icterus. No injection or drainage. NECK: Supple, trachea midline. No JVD or lymphadenopathy. CARDIOVASCULAR: Regular rate and rhythm without murmurs, gallops, or rubs. RESPIRATORY: Breath sounds equal bilaterally. No accessory muscle use. GASTROINTESTINAL: Abdomen soft, non-tender, nondistended. MUSCULOSKELETAL: No cyanosis, or edema. BACK: Nontender without obvious deformity. No CVA tenderness. A/P Assessment and Plan Resp insuff improved Pneumonia Sepsis AF DM HTN PLAN: Cont Abx Zosyn Coumadin to keep INR 2-3 Aerosol nebs Titerate 02 to keep sat >90% Alessio Ackerman MD January 25, 2017 16:30
[2017-01-25] MEDS: INSULIN GLARGINE 1,000 UNITS/10 ML VIAL SQ SCH (22:18)
[2017-01-25] MEDS: ATORVASTATIN 40 MG TAB PO SCH (22:24)
[2017-01-26] VITALS (8 sets, daily range): BP systolic 138–194; BP diastolic 65–80; PULSE 57–75; RESP 18–28; TEMP 97.2–98.5; O2SAT 93–98
[2017-01-26] MEDS: HYDROmorphone HCL PF 1 MG/ML VIAL IV PRN ×7 (01:22→22:31)
[2017-01-26] MEDS: PIPERACIL-TAZO 2.25 GM PREMIX 50 ML IV SCH ×4 (03:15→22:32)
[2017-01-26 03:52] LABS: C PNEUMO IGA 1:32 (()); C PNEUMO IGG >=1:1024 (()); C PNEUMO IGM <1:10 (())
[2017-01-26] MEDS: INSULIN ASPART SUPPLEMENTAL SCALE SQ SCH ×4 (06:25→22:19)
[2017-01-26 08:28] LABS: AUTOMATED NEUTROPHIL # 7.2 TH/MM3 (1.8-7.7); BASOPHIL % 0.4 % (0.0-2.0); EOSINOPHIL # 0.2 TH/MM3 (0-0.4); EOSINOPHIL % 2.2 % (0.0-4.0); HEMATOCRIT 26.6 % (35.0-46.0); HEMO FLAGS DIFF FINAL; LYMPH % 15.1 % (9.0-44.0); LYMPHOCYTE # 1.4 TH/MM3 (1.0-4.8); MEAN CELL VOLUME 68.5 FL (80.0-100.0); MEAN CORPUSCULAR HEMOGLOBIN 22.1 PG (27.0-34.0); MEAN CORPUSCULAR HGB CONC 32.2 % (32.0-36.0); MONO % 5.5 % (0.0-8.0); NEUT % 76.8 % (16.0-70.0); PLATELET COUNT 320 TH/MM3 (150-450); RED BLOOD COUNT 3.88 MIL/MM3 (4.00-5.30); RED CELL DISTRIBUTION WIDTH 17.2 % (11.6-17.2); WHITE BLOOD COUNT 9.4 TH/MM3 (4.0-11.0)
--- NOTE | 2017-01-26 08:41 | RADRPT ---
EXAM DATE/TIME: 01/26/2017 08:29 [facility] COMPARISON: CT THORAX W/O CONTRAST, January 21, 2017, 11:54. CHEST SINGLE AP, January 20, 2017, 17:01. CHEST PA & LAT, January 24, 2017, 10:52. INDICATIONS : Shortness of breath. MEDICAL HISTORY : Congestive heart failure. Chronic obstructive pulmonary disease. Diabetes SURGICAL HISTORY : Mastectomy. ENCOUNTER: Initial ACUITY: 4 - 6 days PAIN SCORE: 0/10 LOCATION: Bilateral chest FINDINGS: Frontal and lateral views of the chest demonstrate a normal-sized cardiac silhouette. There are abnor mal interstitial opacities diffusely throughout the lungs but more severe in the lower lung zones. Th ere is minimal blunting of the costophrenic sulci posteriorly on the lateral view. No pneumothorax is visualized. Bones and soft tissues demonstrate no acute finding. CONCLUSION: Stable chest x-ray with diffuse interstitial opacities more severe in the lower lung zones. The appea sukhjinder and distribution could represent pulmonary edema in the appropriate clinical setting. There is trace pleural fluid bilaterally. Isaak Day MD on January 26, 2017 at 8:37 Board Certified Radiologist. This report was verified electronically.
[2017-01-26 08:44] LABS: INTERNATIONAL NORMALIZED RATIO 1.5 RATIO; PROTHROMBIN TIME - PATIENT 16.7 SEC (9.8-11.6)
[2017-01-26 08:53] LABS: BICARBONATE 21.5 MEQ/L (21.0-32.0); POTASSIUM 4.8 MEQ/L (3.5-5.1)
[2017-01-26] MEDS: GABAPENTIN 300 MG CAP PO SCH (09:47)
[2017-01-26] MEDS: AZITHROMYCIN 250 MG TAB PO SCH (09:47)
[2017-01-26] MEDS: amLODIPine BESYLATE 5 MG TAB PO SCH (09:48)
[2017-01-26] MEDS: CARVEDILOL 12.5 MG TAB PO SCH ×2 (09:48→22:32)
[2017-01-26] MEDS: PANTOPRAZOLE SOD 40 MG DELAYED RELEASE TAB PO SCH (09:48)
[2017-01-26] MEDS: NIFEdipine 60 MG SUSTAINED RELEASE TAB PO SCH (09:48)
[2017-01-26] MEDS: SODIUM CHLORIDE 0.9% FLUSH 10 ML FLUSH IV FLUSH SCH ×2 (09:49→22:32)
[2017-01-26] MEDS: INSULIN GLARGINE 1,000 UNITS/10 ML VIAL SQ SCH ×2 (10:01→22:20)
--- NOTE | 2017-01-26 11:05 | HHI.PR ---
Subjective Remarks Follow-up sepsis/pneumonia/respiratory failure 01/23/17-patient seen and examined, complained of shortness of breath as well as low back pain. Currently afebrile. 01/24/17-patient seen and examined; +mild SOB, Afebrile, states however she is feeling somehow better but not much of an appetite 01/25/17-patient seen and examined; she had runs of bigeminy yesterday however resolved. States she could not sleep last night because couldn't be comfortable. Denies any shortness of breath. Currently afebrile 01/26/17-patient seen and examined, patient reported improvement of shortness of breath, blood glucose labile. Not much of an appetite Objective Vitals Vital Signs Date Time Temp Pulse Resp B/P Pulse Ox O2 Delivery O2 Flow Rate FiO2 01/26/17 10:14 98 Nasal Cannula 2.00 01/26/17 08:12 97.3 75 20 155/66 98 01/26/17 04:00 97.4 57 22 180/77 97 01/26/17 01:25 Nasal Cannula 2.00 01/26/17 00:00 97.5 62 20 194/80 94 01/25/17 22:05 97 Nasal Cannula 2.00 01/25/17 20:00 97.6 59 24 153/70 94 01/25/17 16:13 97.8 60 20 156/67 95 01/25/17 12:16 97.5 68 19 183/78 94 I/O 01/25/17 01/25/17 01/25/17 01/26/17 01/26/17 01/26/17 07:00 15:00 23:00 07:00 15:00 23:00 Intake Total 825 ml Balance 825 ml Intake Oral 825 ml # Voids 2 # Bowel Movements 0 Result Diagram: 01/26/17 0739 01/26/17 0739 Objective Remarks GENERAL: NAD and sitting in a chair SKIN: Warm and dry. HEAD: Normocephalic. EYES: No scleral icterus. No injection or drainage. NECK: Supple, trachea midline. No JVD or lymphadenopathy. CARDIOVASCULAR: irreg Regular rate and rhythm without murmurs, gallops, or rubs. RESPIRATORY: Breath sounds equal bilaterally. No accessory muscle use. GASTROINTESTINAL: Abdomen soft, non-tender, nondistended. MUSCULOSKELETAL: No cyanosis; +BLE chronic ulcers. BACK: Nontender without obvious deformity. No CVA tenderness. Procedures none A/P Problem List: (1) Sepsis ICD Code: A41.9 Status: Acute (2) Foot ulcer ICD Code: L97.509 Status: Acute (3) Hyperkalemia ICD Code: E87.5 Status: Acute (4) Renal insufficiency ICD Code: N28.9 Status: Acute (5) A-fib ICD Code: I48.91 Status: Acute (6) HTN (hypertension) ICD Code: I10 Status: Acute (7) DM (diabetes mellitus) ICD Code: E11.9 Status: Acute Assessment and Plan 51 yrs old female 1. Sepsis: Now resolved, likely due to pneumonia continue with broad spectrum IV antibiotics- including Azithromycin and Zosyn. blood cultures NTD. ID following and Mycoplasma serology negative, chlamydia serology with evidence of past infection 2.Acute respiratory failure- due to pneumonia patient refused V/Q scan- however CTA could not be done due to renal insufficiency- venous doppler negative for DVT- Pulmonary medicine following. Continue with DuoNeb when necessary 3. Foot Ulcers: Bilateral Stage I-II Heel Ulcers, no drainage noted. Appreciate input from wound care 4. Hyperkalemia: resolved. 5. Acute kidney injury superimposed on chronic renal insufficiency-improved- avoid nephrotoxins- monitor 6. A. fib: Chronic. On Coumadin 7. HTN: Continue nifedipine ER 60 mg daily ,Coreg and Norvasc - resume lisinopril and Bumex 8. DM: Labile blood glucose, resume short acting 5 units 3 times a day and continue Lantus 50 units twice a day and Sliding scale w/ Accu-Cheks. Continue to Hold Glipizide 9. Anemia- hypochromic-microcytic; stable and monitor H&H 10. DVT Prophylaxis: SCD/Teds/ Coumadin- Problem Qualifiers (1) Sepsis: Qualified Code: A41.9 - Sepsis, due to unspecified organism Bruno Bey MD January 26, 2017 11:04
[2017-01-26] MEDS: INSULIN HUMAN NPH/R 70/30 1,000 UNITS/10 ML VIAL SQ SCH ×2 (12:25→16:16)
[2017-01-26] MEDS: WARFARIN SOD 4 MG TAB PO SCH (16:18)
--- NOTE | 2017-01-26 19:58 | HHI.PR ---
Subjective Remarks 51 YOAA female with Pn, Resp insuff Up in chair Breathing better Weaned to NC Feels better No new complaint Objective Vital Signs Vital Signs Date Time Temp Pulse Resp B/P Pulse Ox O2 Delivery O2 Flow Rate FiO2 01/26/17 17:54 Nasal Cannula 2.00 01/26/17 16:26 97.2 65 20 139/69 96 01/26/17 11:59 97.6 60 20 172/70 97 01/26/17 11:32 57 01/26/17 11:28 Nasal Cannula 2.00 01/26/17 10:14 98 Nasal Cannula 2.00 01/26/17 08:12 97.3 75 20 155/66 98 01/26/17 04:00 97.4 57 22 180/77 97 01/26/17 01:25 Nasal Cannula 2.00 01/26/17 00:00 97.5 62 20 194/80 94 01/25/17 22:05 97 Nasal Cannula 2.00 01/25/17 20:00 97.6 59 24 153/70 94 I/O 01/25/17 01/25/17 01/25/17 01/26/17 01/26/17 01/26/17 06:59 14:59 22:59 06:59 14:59 22:59 Intake Total 825 ml Balance 825 ml Intake Oral 825 ml # Voids 2 # Bowel Movements 0 Result Diagram: 01/26/17 0739 01/26/17 0739 Objective Remarks GENERAL: WBWN female,NAD SKIN: Warm and dry. HEAD: Normocephalic. EYES: No scleral icterus. No injection or drainage. NECK: Supple, trachea midline. No JVD or lymphadenopathy. CARDIOVASCULAR: Regular rate and rhythm without murmurs, gallops, or rubs. RESPIRATORY: Breath sounds equal bilaterally. No accessory muscle use. GASTROINTESTINAL: Abdomen soft, non-tender, nondistended. MUSCULOSKELETAL: No cyanosis, or edema. BACK: Nontender without obvious deformity. No CVA tenderness. A/P Assessment and Plan Resp insuff improved Pneumonia Sepsis AF DM HTN PLAN: Cont Abx Zosyn Coumadin to keep INR 2-3 Aerosol nebs Titerate 02 to keep sat >90% Alessio Ackerman MD January 26, 2017 19:58
[2017-01-26] MEDS: LISINOPRIL 20 MG TAB PO SCH (22:32)
[2017-01-26] MEDS: BUMETANIDE 1 MG TAB PO SCH (22:32)
[2017-01-26] MEDS: ATORVASTATIN 40 MG TAB PO SCH (22:32)
[2017-01-27] VITALS (10 sets, daily range): BP systolic 127–167; BP diastolic 57–80; PULSE 53–68; RESP 15–24; TEMP 97.2–98.4; O2SAT 95–99
[2017-01-27] MEDS: HYDROmorphone HCL PF 1 MG/ML VIAL IV PRN ×7 (01:41→21:13)
[2017-01-27] MEDS: PIPERACIL-TAZO 2.25 GM PREMIX 50 ML IV SCH ×3 (04:49→15:05)
[2017-01-27] MEDS: INSULIN ASPART SUPPLEMENTAL SCALE SQ SCH ×4 (05:48→21:08)
[2017-01-27] MEDS: INSULIN GLARGINE 1,000 UNITS/10 ML VIAL SQ SCH ×2 (08:29→21:08)
[2017-01-27] MEDS: INSULIN HUMAN NPH/R 70/30 1,000 UNITS/10 ML VIAL SQ SCH ×3 (08:30→17:00)
[2017-01-27] MEDS: GABAPENTIN 300 MG CAP PO SCH (08:33)
[2017-01-27] MEDS: NIFEdipine 60 MG SUSTAINED RELEASE TAB PO SCH (08:33)
[2017-01-27] MEDS: PANTOPRAZOLE SOD 40 MG DELAYED RELEASE TAB PO SCH (08:33)
[2017-01-27] MEDS: BUMETANIDE 1 MG TAB PO SCH ×2 (08:33→21:12)
[2017-01-27] MEDS: LISINOPRIL 20 MG TAB PO SCH ×2 (08:34→21:12)
[2017-01-27] MEDS: amLODIPine BESYLATE 5 MG TAB PO SCH (08:34)
[2017-01-27] MEDS: CARVEDILOL 12.5 MG TAB PO SCH ×2 (08:34→21:12)
[2017-01-27] MEDS: AZITHROMYCIN 250 MG TAB PO SCH (08:34)
[2017-01-27] MEDS: SODIUM CHLORIDE 0.9% FLUSH 10 ML FLUSH IV FLUSH SCH ×2 (08:37→21:12)
--- NOTE | 2017-01-27 09:51 | HHI.PR ---
Subjective Remarks Follow-up sepsis/pneumonia/respiratory failure 01/23/17-patient seen and examined, complained of shortness of breath as well as low back pain. Currently afebrile. 01/24/17-patient seen and examined; +mild SOB, Afebrile, states however she is feeling somehow better but not much of an appetite 01/25/17-patient seen and examined; she had runs of bigeminy yesterday however resolved. States she could not sleep last night because couldn't be comfortable. Denies any shortness of breath. Currently afebrile 01/26/17-patient seen and examined, patient reported improvement of shortness of breath, blood glucose labile. Not much of an appetite 01/27/17-patient seen and examined, states she is feeling much better today and denies any significant shortness of breath Objective Vitals Vital Signs Date Time Temp Pulse Resp B/P Pulse Ox O2 Delivery O2 Flow Rate FiO2 01/27/17 08:50 97.9 54 18 147/69 99 01/27/17 04:00 98.4 59 24 151/65 97 01/27/17 00:00 97.2 59 22 167/68 98 01/26/17 20:45 Nasal Cannula 2.00 01/26/17 20:00 98.5 63 28 161/66 96 01/26/17 20:00 60 01/26/17 17:54 Nasal Cannula 2.00 01/26/17 16:26 97.2 65 20 139/69 96 01/26/17 11:59 97.6 60 20 172/70 97 01/26/17 11:32 57 01/26/17 11:28 Nasal Cannula 2.00 01/26/17 10:14 98 Nasal Cannula 2.00 Result Diagram: 01/26/17 0739 01/26/17 0739 Objective Remarks GENERAL: NAD and sitting in a chair SKIN: Warm and dry. HEAD: Normocephalic. EYES: No scleral icterus. No injection or drainage. NECK: Supple, trachea midline. No JVD or lymphadenopathy. CARDIOVASCULAR: irreg Regular rate and rhythm without murmurs, gallops, or rubs. RESPIRATORY: Breath sounds equal bilaterally. No accessory muscle use. GASTROINTESTINAL: Abdomen soft, non-tender, nondistended. MUSCULOSKELETAL: No cyanosis; +BLE chronic ulcers. BACK: Nontender without obvious deformity. No CVA tenderness. Procedures none A/P Problem List: (1) Sepsis ICD Code: A41.9 Status: Acute (2) Foot ulcer ICD Code: L97.509 Status: Acute (3) Hyperkalemia ICD Code: E87.5 Status: Acute (4) Renal insufficiency ICD Code: N28.9 Status: Acute (5) A-fib ICD Code: I48.91 Status: Acute (6) HTN (hypertension) ICD Code: I10 Status: Acute (7) DM (diabetes mellitus) ICD Code: E11.9 Status: Acute Assessment and Plan 51 yrs old female 1. Sepsis: Now resolved, likely due to pneumonia continue with broad spectrum IV antibiotics- including Azithromycin and Zosyn. blood cultures NTD. ID following and Mycoplasma serology negative, chlamydia serology with evidence of past infection 2.Acute respiratory failure- due to pneumonia-resolved patient refused V/Q scan- however CTA could not be done due to renal insufficiency- venous doppler negative for DVT- Pulmonary medicine following. Continue with DuoNeb when necessary 3. Foot Ulcers: Bilateral Stage I-II Heel Ulcers, no drainage noted. Appreciate input from wound care 4. Hyperkalemia: resolved. 5. Acute kidney injury superimposed on chronic renal insufficiency-improved- avoid nephrotoxins- monitor 6. A. fib: Chronic. On Coumadin 7. HTN: Continue nifedipine ER 60 mg daily ,Coreg and Norvasc - resume lisinopril and Bumex 8. DM: Continue short acting 5 units 3 times a day and Lantus 50 units twice a day as well as Sliding scale w/ Accu-Cheks. Continue to Hold Glipizide 9. Anemia- hypochromic-microcytic; stable and monitor H&H 10. DVT Prophylaxis: SCD/Teds/ Coumadin- Problem Qualifiers (1) Sepsis: Qualified Code: A41.9 - Sepsis, due to unspecified organism Bruno Bey MD January 27, 2017 09:51
[2017-01-27 13:06] LABS: INTERNATIONAL NORMALIZED RATIO 1.3 RATIO
[2017-01-27] MEDS ORDERED: WARFARIN SOD 1 MG TAB PO SCH (16:00)
--- NOTE | 2017-01-27 17:24 | HHI.PR ---
Subjective Remarks 51 YOAA female with Pn, Resp insuff Up in chair Breathing better Weaned to NC Feels better Objective Vital Signs Vital Signs Date Time Temp Pulse Resp B/P Pulse Ox O2 Delivery O2 Flow Rate FiO2 01/27/17 16:27 98.4 68 18 127/80 95 01/27/17 13:03 98.2 60 15 139/57 97 01/27/17 10:40 53 01/27/17 10:34 Nasal Cannula 2.00 01/27/17 10:00 98 Nasal Cannula 2.00 01/27/17 08:50 97.9 54 18 147/69 99 01/27/17 04:00 98.4 59 24 151/65 97 01/27/17 00:00 97.2 59 22 167/68 98 01/26/17 20:45 Nasal Cannula 2.00 01/26/17 20:00 98.5 63 28 161/66 96 01/26/17 20:00 60 01/26/17 17:54 Nasal Cannula 2.00 Result Diagram: 01/26/17 0739 01/26/17 0739 Objective Remarks GENERAL: WBWN female,NAD SKIN: Warm and dry. HEAD: Normocephalic. EYES: No scleral icterus. No injection or drainage. NECK: Supple, trachea midline. No JVD or lymphadenopathy. CARDIOVASCULAR: Regular rate and rhythm without murmurs, gallops, or rubs. RESPIRATORY: Breath sounds equal bilaterally. No accessory muscle use. GASTROINTESTINAL: Abdomen soft, non-tender, nondistended. MUSCULOSKELETAL: No cyanosis, or edema. BACK: Nontender without obvious deformity. No CVA tenderness. A/P Assessment and Plan Resp insuff improved Pneumonia Sepsis AF DM HTN PLAN: Cont Abx Zosyn Coumadin to keep INR 2-3 Aerosol nebs Titerate 02 to keep sat >90% DC 02 if RA sat >90% Alessio Ackerman MD January 27, 2017 17:24
--- NOTE | 2017-01-27 17:42 | HHI.IDPN ---
Note Infectious Disease Note Patient feels okay. Says her breathing is better. Worried about her legs being more swollen. On O2 via NC. No cough. Afebrile. Chlamydia titers IGG elevated. Refused VQ scan. LE US - no evidence of DVT. Patient presented with fever and chills. PAST MEDICAL HISTORY 1. Hypertension. 2. COPD. 3. Atrial fibrillation. 4. Diabetes mellitus. 5. Gout. 6. Peripheral neuropathy. 7. Atrial fibrillation. 8. Amputation of left toes. 9. History of fasciotomy of the left leg. 10. Tubal ligation. ALLERGIES SULFA. IBUPROFEN. THE PATIENT ALSO HAS ALLERGIES TO EGG AND MILK. ANTIBIOTICS: MEDICATIONS Piperacillin / tazobactam. Azithromycin. OBJECTIVE: Vital Signs Date Time Temp Pulse Resp B/P Pulse Ox O2 Delivery O2 Flow Rate FiO2 01/27/17 16:27 98.4 68 18 127/80 95 01/27/17 13:03 98.2 60 15 139/57 97 01/27/17 10:40 53 01/27/17 10:34 Nasal Cannula 2.00 01/27/17 10:00 98 Nasal Cannula 2.00 01/27/17 08:50 97.9 54 18 147/69 99 01/27/17 04:00 98.4 59 24 151/65 97 01/27/17 00:00 97.2 59 22 167/68 98 01/26/17 20:45 Nasal Cannula 2.00 01/26/17 20:00 98.5 63 28 161/66 96 01/26/17 20:00 60 01/26/17 17:54 Nasal Cannula 2.00 Laboratory Tests Test 01/26/17 07:39 White Blood Count 9.4 TH/MM3 Red Blood Count 3.88 MIL/MM3 Hemoglobin 8.6 GM/DL Hematocrit 26.6 % Mean Corpuscular Volume 68.5 FL Mean Corpuscular Hemoglobin 22.1 PG Mean Corpuscular Hemoglobin 32.2 % Concent Red Cell Distribution Width 17.2 % Platelet Count 320 TH/MM3 Mean Platelet Volume 9.4 FL Neutrophils (%) (Auto) 76.8 % Lymphocytes (%) (Auto) 15.1 % Monocytes (%) (Auto) 5.5 % Eosinophils (%) (Auto) 2.2 % Basophils (%) (Auto) 0.4 % Neutrophils # (Auto) 7.2 TH/MM3 Lymphocytes # (Auto) 1.4 TH/MM3 Monocytes # (Auto) 0.5 TH/MM3 Eosinophils # (Auto) 0.2 TH/MM3 Basophils # (Auto) 0.0 TH/MM3 CBC Comment DIFF FINAL Differential Comment Laboratory Tests Test 01/26/17 07:39 Sodium Level 137 MEQ/L Potassium Level 4.8 MEQ/L Chloride Level 108 MEQ/L Carbon Dioxide Level 21.5 MEQ/L Anion Gap 8 MEQ/L Blood Urea Nitrogen 34 MG/DL Creatinine 1.44 MG/DL Estimat Glomerular Filtration 46 ML/MIN Rate Random Glucose 305 MG/DL Calcium Level 9.1 MG/DL IMAGING: Last 48 hours Impressions Chest X-Ray 01/26/17 0000 Signed Impressions: Service Date/Time: Thursday, January 26, 2017 08:29 - CONCLUSION: Stable chest x- ray with diffuse interstitial opacities more severe in the lower lung zones. The appearance and distribution could represent pulmonary edema in the appropriate clinical setting. There is trace pleural fluid bilaterally. Isaak Day MD Chest X-Ray 01/24/17 0000 Signed Impressions: Service Date/Time: Tuesday, January 24, 2017 10:52 - CONCLUSION: 1. Stable interstitial lung disease since January 22 considering slight differences in technique. Trace pleural fluid. Cardiomegaly. Travis Bellamy MD Chest X-Ray 01/22/17 0000 Signed Impressions: Service Date/Time: Sunday, January 22, 2017 05:34 - CONCLUSION: Slight CHF and slight bibasilar atelectasis. K. Schuyler Gibbs MD Lower Extremity Ultrasound 01/21/17 0000 Signed Impressions: Service Date/Time: Saturday, January 21, 2017 14:19 - CONCLUSION: 1. No evidence of deep venous thrombosis. Romel Chavez MD Chest CT 01/21/17 0000 Signed Impressions: Service Date/Time: Saturday, January 21, 2017 11:54 - CONCLUSION: 1. Examination quality is degraded by respiratory motion artifact. However, there is a diffuse interstitial process bilaterally throughout the lungs that is slightly more severe in the lower lung zones. It consists of septal thickening and groundglass opacity. Appearance is nonspecific and differential diagnostic considerations include edema, infection, or inflammatory conditions. It appears similar to the prior chest x-rays. 2. Nonspecific mediastinal lymphadenopathy. 3. There is a 19 mm left adrenal gland mass. It does not meet criteria on this examination but its lack of significant change since December 2014 is indicative of a benign process. Isaak Day MD Foot X-Ray 01/19/17 0000 Signed Impressions: Service Date/Time: Thursday, January 19, 2017 11:49 - CONCLUSION: Soft tissue swelling and postsurgical changes. Phill Finley MD PHYSICAL EXAMINATION GENERAL: Awake and alert and oriented. HEENT: No icterus. Oropharynx moist mucosa without lesions. NECK: Supple without adenopathy. LUNGS: Clearer breath sounds. Good air movement. HEART: Regular rate and rhythm. No murmurs, rubs or gallops. ABDOMEN: Bowel sounds present, obese, soft, nontender. EXTREMITIES: No clubbing or cyanosis. Non pitting edema bilaterally. There is a tiny superficial bruise at the left heel which has mild tenderness on palpation in the region. No drainage. NEUROLOGIC: Nonfocal. SKIN: No rash. PSYCHIATRIC: Calm and cooperative. IMPRESSION 1. Fever. Improved. 2. Sepsis suggested by fever, increased respiratory rate, elevated white blood cell count. No clear source of infection. 3. Pneumonia. Diffuse interstitial lung disease on CT scan. ? atypical PNA. High prolactin level supports pneumonia. Still having SOB. 4. Leukocytosis. Questionable etiology. Improved. RECOMMENDATIONS 1. Continue Azithromycin. 2. Stop piperacillin / Tazobactam. 3. Start Levaquin. 4. Monitor renal function. 5. Monitor temperatures. 6. Monitor clinical status. Arik Marquis MD January 27, 2017 17:42
[2017-01-27] MEDS: WARFARIN SOD 4 MG TAB PO SCH (17:52)
[2017-01-27] MEDS: LEVOFLOXACIN 750 MG PREMIX INJ 150 ML IV SCH (18:08)
[2017-01-27] MEDS: ATORVASTATIN 40 MG TAB PO SCH (21:12)
[2017-01-28] VITALS (10 sets, daily range): BP systolic 117–170; BP diastolic 57–79; PULSE 52–66; RESP 16–20; TEMP 97–98.4; O2SAT 95–99
[2017-01-28] MEDS: HYDROmorphone HCL PF 1 MG/ML VIAL IV PRN ×3 (00:25→07:51)
[2017-01-28] MEDS: INSULIN ASPART SUPPLEMENTAL SCALE SQ SCH ×4 (06:02→21:31)
[2017-01-28 08:57] LABS: INTERNATIONAL NORMALIZED RATIO 1.4 RATIO; PROTHROMBIN TIME - PATIENT 15.9 SEC (9.8-11.6)
[2017-01-28] MEDS: INSULIN GLARGINE 1,000 UNITS/10 ML VIAL SQ SCH (09:00)
[2017-01-28] MEDS: PANTOPRAZOLE SOD 40 MG DELAYED RELEASE TAB PO SCH (09:21)
[2017-01-28] MEDS: SODIUM CHLORIDE 0.9% FLUSH 10 ML FLUSH IV FLUSH SCH ×2 (09:21→20:01)
[2017-01-28] MEDS: BUMETANIDE 1 MG TAB PO SCH ×2 (09:21→20:01)
[2017-01-28] MEDS: CARVEDILOL 12.5 MG TAB PO SCH ×2 (09:21→20:01)
[2017-01-28] MEDS: GABAPENTIN 300 MG CAP PO SCH (09:21)
[2017-01-28] MEDS: NIFEdipine 60 MG SUSTAINED RELEASE TAB PO SCH (09:21)
[2017-01-28] MEDS: LISINOPRIL 20 MG TAB PO SCH ×2 (09:21→20:01)
[2017-01-28] MEDS: INSULIN HUMAN NPH/R 70/30 1,000 UNITS/10 ML VIAL SQ SCH ×3 (09:36→16:41)
[2017-01-28] MEDS: amLODIPine BESYLATE 5 MG TAB PO SCH (09:37)
--- NOTE | 2017-01-28 09:38 | HHI.PR ---
Subjective Remarks Follow-up sepsis/pneumonia/respiratory failure 01/23/17-patient seen and examined, complained of shortness of breath as well as low back pain. Currently afebrile. 01/24/17-patient seen and examined; +mild SOB, Afebrile, states however she is feeling somehow better but not much of an appetite 01/25/17-patient seen and examined; she had runs of bigeminy yesterday however resolved. States she could not sleep last night because couldn't be comfortable. Denies any shortness of breath. Currently afebrile 01/26/17-patient seen and examined, patient reported improvement of shortness of breath, blood glucose labile. Not much of an appetite 01/27/17-patient seen and examined, states she is feeling much better today and denies any significant shortness of breath 01/28/17-patient seen and examined, complains of left lower extremity swelling as well as low back pain and she is requesting adjustment of her narcotics. She is currently on IV Levaquin and is afebrile. Objective Vitals Vital Signs Date Time Temp Pulse Resp B/P Pulse Ox O2 Delivery O2 Flow Rate FiO2 01/28/17 07:45 54 18 117/59 01/28/17 04:00 97.0 59 20 170/65 98 01/28/17 00:36 97 Nasal Cannula 2.00 01/28/17 00:00 98.4 53 20 147/59 95 01/27/17 21:33 97 Nasal Cannula 2.00 01/27/17 20:26 64 01/27/17 20:00 97.8 63 22 153/69 98 01/27/17 16:27 98.4 68 18 127/80 95 01/27/17 13:03 98.2 60 15 139/57 97 01/27/17 10:40 53 01/27/17 10:34 Nasal Cannula 2.00 01/27/17 10:00 98 Nasal Cannula 2.00 Result Diagram: 01/26/17 0739 01/26/17 0739 Imaging Last Impressions Chest X-Ray 01/26/17 0000 Signed Impressions: Service Date/Time: Thursday, January 26, 2017 08:29 - CONCLUSION: Stable chest x- ray with diffuse interstitial opacities more severe in the lower lung zones. The appearance and distribution could represent pulmonary edema in the appropriate clinical setting. There is trace pleural fluid bilaterally. Isaak Day MD Lower Extremity Ultrasound 01/21/17 0000 Signed Impressions: Service Date/Time: Saturday, January 21, 2017 14:19 - CONCLUSION: 1. No evidence of deep venous thrombosis. Romel Chavez MD Chest CT 01/21/17 0000 Signed Impressions: Service Date/Time: Saturday, January 21, 2017 11:54 - CONCLUSION: 1. Examination quality is degraded by respiratory motion artifact. However, there is a diffuse interstitial process bilaterally throughout the lungs that is slightly more severe in the lower lung zones. It consists of septal thickening and groundglass opacity. Appearance is nonspecific and differential diagnostic considerations include edema, infection, or inflammatory conditions. It appears similar to the prior chest x-rays. 2. Nonspecific mediastinal lymphadenopathy. 3. There is a 19 mm left adrenal gland mass. It does not meet criteria on this examination but its lack of significant change since December 2014 is indicative of a benign process. Isaak Day MD Foot X-Ray 01/19/17 0000 Signed Impressions: Service Date/Time: Thursday, January 19, 2017 11:49 - CONCLUSION: Soft tissue swelling and postsurgical changes. Phill Finley MD Objective Remarks GENERAL: NAD and sitting in a chair SKIN: Warm and dry. HEAD: Normocephalic. EYES: No scleral icterus. No injection or drainage. NECK: Supple, trachea midline. No JVD or lymphadenopathy. CARDIOVASCULAR: irreg Regular rate and rhythm without murmurs, gallops, or rubs. RESPIRATORY: Breath sounds equal bilaterally. No accessory muscle use. GASTROINTESTINAL: Abdomen soft, non-tender, nondistended. MUSCULOSKELETAL: No cyanosis; +BLE chronic ulcers. BACK: Nontender without obvious deformity. No CVA tenderness. Procedures none A/P Problem List: (1) Sepsis ICD Code: A41.9 Status: Acute (2) Foot ulcer ICD Code: L97.509 Status: Acute (3) Hyperkalemia ICD Code: E87.5 Status: Acute (4) Renal insufficiency ICD Code: N28.9 Status: Acute (5) A-fib ICD Code: I48.91 Status: Acute (6) HTN (hypertension) ICD Code: I10 Status: Acute (7) DM (diabetes mellitus) ICD Code: E11.9 Status: Acute Assessment and Plan 51 yrs old female 1. Sepsis: Now resolved, likely due to pneumonia continue with broad spectrum IV antibiotics- s/p Azithromycin and Zosyn, currently on IV Levaquin. blood cultures NTD. ID following and Mycoplasma serology negative, chlamydia serology with evidence of past infection 2.Acute respiratory failure- due to pneumonia-resolved patient refused V/Q scan- however CTA could not be done due to renal insufficiency- venous doppler negative for DVT- Pulmonary medicine following. Continue with DuoNeb when necessary 3. Foot Ulcers: Bilateral Stage I-II Heel Ulcers, no drainage noted. Appreciate input from wound care 4. Hyperkalemia: resolved. 5. Acute kidney injury superimposed on chronic renal insufficiency-improved- avoid nephrotoxins- monitor 6. A. fib: Chronic. On Coumadin 7. HTN: Continue nifedipine ER 60 mg daily ,Coreg and Norvasc - continue lisinopril and Bumex 8. DM: Continue short acting 5 units 3 times a day and Lantus 50 units twice a day as well as Sliding scale w/ Accu-Cheks. Continue to Hold Glipizide 9. Anemia- hypochromic-microcytic; stable and monitor H&H 10. DVT Prophylaxis: SCD/Teds/ Coumadin- Problem Qualifiers (1) Sepsis: Qualified Code: A41.9 - Sepsis, due to unspecified organism Bruno Bey MD January 28, 2017 09:38
[2017-01-28] MEDS: oxyCODONE/ACETAMINOPHEN 10 MG/325 MG TAB PO PRN ×2 (11:08→20:00)
[2017-01-28] MEDS: HYDROmorphone HCL PF 1 MG/ML VIAL IV PUSH PRN ×4 (12:31→21:35)
--- NOTE | 2017-01-28 15:51 | HHI.IDPN ---
Note Infectious Disease Note Patient feels her left leg is getting more swollen. Says her breathing is okay. Breathing get easily labored. Worried about her legs being more swollen. On O2 via NC. No cough. Afebrile. Chlamydia titers IGG elevated. Refused VQ scan. LE US - no evidence of DVT. Patient presented with fever and chills. PAST MEDICAL HISTORY 1. Hypertension. 2. COPD. 3. Atrial fibrillation. 4. Diabetes mellitus. 5. Gout. 6. Peripheral neuropathy. 7. Atrial fibrillation. 8. Amputation of left toes. 9. History of fasciotomy of the left leg. 10. Tubal ligation. ALLERGIES SULFA. IBUPROFEN. THE PATIENT ALSO HAS ALLERGIES TO EGG AND MILK. ANTIBIOTICS: Levaquin. OBJECTIVE: Vital Signs Date Time Temp Pulse Resp B/P Pulse Ox O2 Delivery O2 Flow Rate FiO2 01/28/17 13:08 16 01/28/17 13:05 62 150/79 01/28/17 12:08 18 01/28/17 12:00 98.1 54 16 170/69 95 01/28/17 10:16 99 Nasal Cannula 2.00 01/28/17 09:20 56 146/66 01/28/17 07:45 54 18 117/59 01/28/17 07:15 96 01/28/17 07:15 2.00 01/28/17 04:00 97.0 59 20 170/65 98 01/28/17 00:36 97 Nasal Cannula 2.00 01/28/17 00:00 98.4 53 20 147/59 95 01/27/17 21:33 97 Nasal Cannula 2.00 01/27/17 20:26 64 01/27/17 20:00 97.8 63 22 153/69 98 01/27/17 16:27 98.4 68 18 127/80 95 01/27/17 01/27/17 01/28/17 15:00 23:00 07:00 # Voids 7 IMAGING: Chest X-Ray 01/26/17 0000 Signed Impressions: Service Date/Time: Thursday, January 26, 2017 08:29 - CONCLUSION: Stable chest x- ray with diffuse interstitial opacities more severe in the lower lung zones. The appearance and distribution could represent pulmonary edema in the appropriate clinical setting. There is trace pleural fluid bilaterally. Isaak Day MD Chest X-Ray 01/24/17 Signed Impressions: Service Date/Time: Tuesday, January 24, 2017 10:52 - CONCLUSION: 1. Stable interstitial lung disease since January 22 considering slight differences in technique. Trace pleural fluid. Cardiomegaly. Travis Bellamy MD Chest X-Ray 01/22/17 Signed Impressions: Service Date/Time: Sunday, January 22, 2017 05:34 - CONCLUSION: Slight CHF and slight bibasilar atelectasis. K. Schuyler Gibbs MD Lower Extremity Ultrasound 01/21/17 Signed Impressions: Service Date/Time: Saturday, January 21, 2017 14:19 - CONCLUSION: 1. No evidence of deep venous thrombosis. Romel Chavez MD Chest CT 01/21/17 Signed Impressions: Service Date/Time: Saturday, January 21, 2017 11:54 - CONCLUSION: 1. Examination quality is degraded by respiratory motion artifact. However, there is a diffuse interstitial process bilaterally throughout the lungs that is slightly more severe in the lower lung zones. It consists of septal thickening and groundglass opacity. Appearance is nonspecific and differential diagnostic considerations include edema, infection, or inflammatory conditions. It appears similar to the prior chest x-rays. 2. Nonspecific mediastinal lymphadenopathy. 3. There is a 19 mm left adrenal gland mass. It does not meet criteria on this examination but its lack of significant change since December 2014 is indicative of a benign process. Isaak Day MD Foot X-Ray 01/19/17 0000 Signed Impressions: Service Date/Time: Thursday, January 19, 2017 11:49 - CONCLUSION: Soft tissue swelling and postsurgical changes. Phill Finley MD PHYSICAL EXAMINATION GENERAL: Awake and alert and oriented. HEENT: No icterus. Oropharynx moist mucosa without lesions. NECK: Supple without adenopathy. LUNGS: BS decreased at the left base. HEART: Regular rate and rhythm. No murmurs, rubs or gallops. ABDOMEN: Bowel sounds present, obese, soft, nontender. EXTREMITIES: No clubbing or cyanosis. Non pitting edema bilaterally R>>L. There is a tiny superficial bruise at the left heel which has mild tenderness on palpation in the region. No drainage. NEUROLOGIC: Nonfocal. SKIN: No rash. PSYCHIATRIC: Calm and cooperative. IMPRESSION 1. Fever. Improved. 2. Sepsis suggested by fever, increased respiratory rate, elevated white blood cell count. No clear source of infection. 3. Pneumonia. Diffuse interstitial lung disease on CT scan. ? atypical PNA. High prolactin level supports pneumonia. Still having SOB. 4. Leukocytosis. Questionable etiology. Improved. RECOMMENDATIONS 1. Continue Levaquin. 2. Repeat CXR. 3. Elevate left leg in bed. 4. Wrap left leg with hitesh bandage. 5. Monitor temperatures. 7. Monitor clinical status. 8. Repeat prolactin level. If CXR is improved she can be continued on PO Levaquin. May need diuresis. Pulmonary following. Arik Marquis MD January 28, 2017 15:51
[2017-01-28] MEDS ORDERED: WARFARIN SOD 2 MG TAB PO SCH (16:00)
[2017-01-28] MEDS: WARFARIN SOD 4 MG TAB PO SCH (16:21)
--- NOTE | 2017-01-28 16:34 | RADRPT ---
EXAM DATE/TIME: 01/28/2017 16:05 [facility] COMPARISON: CHEST PA & LAT, January 26, 2017, 8:29. CHEST SINGLE AP, January 22, 2017, 5:34. INDICATIONS : Short of breath. MEDICAL HISTORY : Methicillin-resistant Staphylococcus aureus. Gastroesophageal reflux disease. Chronic obstructive pul monary disease. CHF. A-fib. Hypertension. DVT. Pneumonia. Ulcer. Osteoarthritis. Chronic kidney disea se. Anemia. SURGICAL HISTORY : Tonsillectomy.Tubal ligation. Mastectomy. ENCOUNTER: Subsequent ACUITY: 3 days PAIN SCORE: 0/10 LOCATION: Bilateral chest FINDINGS: Portable AP view of the chest demonstrates a normal-sized cardiac silhouette. There are abnormal inte rstitial opacities bilaterally predominantly in the lower lung zones. Findings appear slightly improv ed compared to the prior study. No pneumothorax or pleural effusion is seen. CONCLUSION: The bilateral lower lung zone predominant interstitial opacities have slightly improved. Isaak Day MD on January 28, 2017 at 16:30 Board Certified Radiologist. This report was verified electronically.
[2017-01-28] MEDS: LEVOFLOXACIN 750 MG PREMIX INJ 150 ML IV SCH (17:18)
--- NOTE | 2017-01-28 19:17 | HHI.PR ---
Subjective Remarks 51 YOAA female with Pn, Resp insuff Up in chair Breathing better Weaned to NC Feels better no Fever C/O Back pain Objective Vital Signs Vital Signs Date Time Temp Pulse Resp B/P Pulse Ox O2 Delivery O2 Flow Rate FiO2 01/28/17 17:51 Nasal Cannula 2.00 01/28/17 16:00 98.1 56 17 130/57 98 01/28/17 13:08 16 01/28/17 13:05 62 150/79 01/28/17 12:08 18 01/28/17 12:00 98.1 54 16 170/69 95 01/28/17 10:16 99 Nasal Cannula 2.00 01/28/17 09:20 56 146/66 01/28/17 07:45 54 18 117/59 01/28/17 07:15 96 01/28/17 07:15 2.00 01/28/17 04:00 97.0 59 20 170/65 98 01/28/17 00:36 97 Nasal Cannula 2.00 01/28/17 00:00 98.4 53 20 147/59 95 01/27/17 21:33 97 Nasal Cannula 2.00 01/27/17 20:26 64 01/27/17 20:00 97.8 63 22 153/69 98 I/O 01/27/17 01/27/17 01/27/17 01/28/17 01/28/17 01/28/17 07:00 15:00 23:00 07:00 15:00 23:00 Intake Total 750 ml Balance 750 ml Intake Oral 750 ml # Voids 7 4 # Bowel Movements 0 Result Diagram: 01/26/17 0739 01/26/17 0739 Objective Remarks GENERAL: WBWN female,NAD SKIN: Warm and dry. HEAD: Normocephalic. EYES: No scleral icterus. No injection or drainage. NECK: Supple, trachea midline. No JVD or lymphadenopathy. CARDIOVASCULAR: Regular rate and rhythm without murmurs, gallops, or rubs. RESPIRATORY: Breath sounds equal bilaterally. No accessory muscle use. GASTROINTESTINAL: Abdomen soft, non-tender, nondistended. MUSCULOSKELETAL: No cyanosis, or edema. BACK: Nontender without obvious deformity. No CVA tenderness. A/P Assessment and Plan Resp insuff improved Pneumonia Sepsis AF DM HTN PLAN: Cont Abx Zosyn Coumadin to keep INR 2-3 Aerosol nebs Titerate 02 to keep sat >90% DC 02 if RA sat >90% OOB and ambulate Alessio Ackerman MD January 28, 2017 19:17
[2017-01-28] MEDS: ATORVASTATIN 40 MG TAB PO SCH (20:01)
[2017-01-28] MEDS: INSULIN DETEMIR 100 UNITS/ML VIAL SQ SCH (21:30)
[2017-01-29] VITALS (8 sets, daily range): BP systolic 121–156; BP diastolic 56–69; PULSE 49–62; RESP 17–20; TEMP 97–98.5; O2SAT 93–98
[2017-01-29] MEDS: HYDROmorphone HCL PF 1 MG/ML VIAL IV PUSH PRN ×5 (02:31→20:41)
[2017-01-29] MEDS: oxyCODONE/ACETAMINOPHEN 10 MG/325 MG TAB PO PRN ×2 (06:25→12:15)
[2017-01-29] MEDS: INSULIN ASPART SUPPLEMENTAL SCALE SQ SCH ×3 (06:26→21:00)
[2017-01-29 08:38] LABS: INTERNATIONAL NORMALIZED RATIO 1.4 RATIO; PROTHROMBIN TIME - PATIENT 15.2 SEC (9.8-11.6)
[2017-01-29] MEDS: INSULIN DETEMIR 100 UNITS/ML VIAL SQ SCH ×2 (09:20→21:00)
[2017-01-29] MEDS: INSULIN HUMAN NPH/R 70/30 1,000 UNITS/10 ML VIAL SQ SCH ×3 (09:21→18:00)
[2017-01-29] MEDS: PANTOPRAZOLE SOD 40 MG DELAYED RELEASE TAB PO SCH (09:22)
[2017-01-29] MEDS: BUMETANIDE 1 MG TAB PO SCH ×2 (09:22→20:39)
[2017-01-29] MEDS: amLODIPine BESYLATE 5 MG TAB PO SCH (09:23)
[2017-01-29] MEDS: GABAPENTIN 300 MG CAP PO SCH (09:23)
[2017-01-29] MEDS: CARVEDILOL 12.5 MG TAB PO SCH ×2 (09:23→20:39)
[2017-01-29] MEDS: LISINOPRIL 20 MG TAB PO SCH ×2 (09:23→20:39)
[2017-01-29] MEDS: NIFEdipine 60 MG SUSTAINED RELEASE TAB PO SCH (09:23)
--- NOTE | 2017-01-29 10:26 | HHI.PR ---
Subjective Remarks Follow-up sepsis/pneumonia/respiratory failure 01/23/17-patient seen and examined, complained of shortness of breath as well as low back pain. Currently afebrile. 01/24/17-patient seen and examined; +mild SOB, Afebrile, states however she is feeling somehow better but not much of an appetite 01/25/17-patient seen and examined; she had runs of bigeminy yesterday however resolved. States she could not sleep last night because couldn't be comfortable. Denies any shortness of breath. Currently afebrile 01/26/17-patient seen and examined, patient reported improvement of shortness of breath, blood glucose labile. Not much of an appetite 01/27/17-patient seen and examined, states she is feeling much better today and denies any significant shortness of breath 01/28/17-patient seen and examined, complains of left lower extremity swelling as well as low back pain and she is requesting adjustment of her narcotics. She is currently on IV Levaquin and is afebrile. 01/29/17-patient seen and examined, afebrile and no significant shortness of breath. She was up and walking from the bathroom and denies any significant left lower extremity pain Objective Vitals Vital Signs Date Time Temp Pulse Resp B/P Pulse Ox O2 Delivery O2 Flow Rate FiO2 01/29/17 08:37 98.5 57 18 155/67 95 01/29/17 04:18 97.0 59 17 121/56 96 01/29/17 00:09 97.1 62 17 150/63 96 01/28/17 20:30 52 01/28/17 20:15 97.5 66 17 164/72 96 01/28/17 20:00 96 Room Air 01/28/17 17:51 Nasal Cannula 2.00 01/28/17 16:00 98.1 56 17 130/57 98 01/28/17 13:08 16 01/28/17 13:05 62 150/79 01/28/17 12:08 18 01/28/17 12:00 98.1 54 16 170/69 95 I/O 01/28/17 01/28/17 01/28/17 01/29/17 01/29/17 01/29/17 07:00 15:00 23:00 07:00 15:00 23:00 Intake Total 750 ml 240 ml 120 ml Balance 750 ml 240 ml 120 ml Intake Oral 750 ml 240 ml 120 ml # Voids 4 2 2 # Bowel Movements 0 Result Diagram: 01/26/17 0739 01/26/17 0739 Imaging Last Impressions Chest X-Ray 01/28/17 Signed Impressions: Service Date/Time: Saturday, January 28, 2017 16:05 - CONCLUSION: The bilateral lower lung zone predominant interstitial opacities have slightly improved. Isaak Day MD Lower Extremity Ultrasound 01/21/17 Signed Impressions: Service Date/Time: Saturday, January 21, 2017 14:19 - CONCLUSION: 1. No evidence of deep venous thrombosis. Romel Chavez MD Chest CT 01/21/17 Signed Impressions: Service Date/Time: Saturday, January 21, 2017 11:54 - CONCLUSION: 1. Examination quality is degraded by respiratory motion artifact. However, there is a diffuse interstitial process bilaterally throughout the lungs that is slightly more severe in the lower lung zones. It consists of septal thickening and groundglass opacity. Appearance is nonspecific and differential diagnostic considerations include edema, infection, or inflammatory conditions. It appears similar to the prior chest x-rays. 2. Nonspecific mediastinal lymphadenopathy. 3. There is a 19 mm left adrenal gland mass. It does not meet criteria on this examination but its lack of significant change since December 2014 is indicative of a benign process. Isaak Day MD Foot X-Ray 01/19/17 Signed Impressions: Service Date/Time: Thursday, January 19, 2017 11:49 - CONCLUSION: Soft tissue swelling and postsurgical changes. Phill Finley MD Objective Remarks GENERAL: NAD and sitting in a chair SKIN: Warm and dry. HEAD: Normocephalic. EYES: No scleral icterus. No injection or drainage. NECK: Supple, trachea midline. No JVD or lymphadenopathy. CARDIOVASCULAR: irreg Regular rate and rhythm without murmurs, gallops, or rubs. RESPIRATORY: Breath sounds equal bilaterally. No accessory muscle use. GASTROINTESTINAL: Abdomen soft, non-tender, nondistended. MUSCULOSKELETAL: No cyanosis; +BLE chronic ulcers. Left lower extremity wrapped in Shaw band BACK: Nontender without obvious deformity. No CVA tenderness. Procedures none A/P Problem List: (1) Sepsis ICD Code: A41.9 Status: Acute (2) Foot ulcer ICD Code: L97.509 Status: Acute (3) Hyperkalemia ICD Code: E87.5 Status: Acute (4) Renal insufficiency ICD Code: N28.9 Status: Acute (5) A-fib ICD Code: I48.91 Status: Acute (6) HTN (hypertension) ICD Code: I10 Status: Acute (7) DM (diabetes mellitus) ICD Code: E11.9 Status: Acute Assessment and Plan 51 yrs old female 1. Sepsis: Now resolved, likely due to pneumonia s/p Azithromycin and Zosyn, currently on IV Levaquin. blood cultures NTD. Repeat chest x-ray 01/28/17 noted a review by me with finding of The bilateral lower lung zone predominant interstitial opacities have slightly improved. ID following and Mycoplasma serology negative, chlamydia serology with evidence of past infection. 2.Acute respiratory failure- due to pneumonia-resolved patient refused V/Q scan- however CTA could not be done due to renal insufficiency- venous doppler negative for DVT- Pulmonary medicine following. Continue with DuoNeb when necessary 3. Foot Ulcers: Bilateral Stage I-II Heel Ulcers, no drainage noted. Appreciate input from wound care. Continue current Shaw wrap 4. Hyperkalemia: resolved. 5. Acute kidney injury superimposed on chronic renal insufficiency-improved- avoid nephrotoxins- monitor 6. A. fib: Chronic. On Coumadin ; INR subtherapeutic. Consider Lovenox subcutaneous every 12 hours bridge 7. HTN: Continue nifedipine ER 60 mg daily ,Coreg and Norvasc - continue lisinopril and Bumex 8. DM: Continue short acting 5 units 3 times a day and Lantus 50 units twice a day as well as Sliding scale w/ Accu-Cheks. Continue to Hold Glipizide 9. Anemia- hypochromic-microcytic; stable and monitor H&H 10. DVT Prophylaxis: SCD/Teds/ Coumadin- Problem Qualifiers (1) Sepsis: Qualified Code: A41.9 - Sepsis, due to unspecified organism Bruno Bey MD January 29, 2017 10:26
--- NOTE | 2017-01-29 15:26 | HHI.IDPN ---
Note Infectious Disease Note Patient feels okay. O2 sat 96% without O2. Says her breathing is okay. No cough. Afebrile. CXR - improved. Chlamydia pneumoniae titers IGG elevated. Refused VQ scan. LE US - no evidence of DVT. Patient presented with fever and chills. PAST MEDICAL HISTORY 1. Hypertension. 2. COPD. 3. Atrial fibrillation. 4. Diabetes mellitus. 5. Gout. 6. Peripheral neuropathy. 7. Atrial fibrillation. 8. Amputation of left toes. 9. History of fasciotomy of the left leg. 10. Tubal ligation. ALLERGIES SULFA. IBUPROFEN. THE PATIENT ALSO HAS ALLERGIES TO EGG AND MILK. ANTIBIOTICS: Levaquin. OBJECTIVE: Vital Signs Date Time Temp Pulse Resp B/P Pulse Ox O2 Delivery O2 Flow Rate FiO2 01/29/17 12:40 97.8 52 18 156/69 93 01/29/17 11:20 98 Nasal Cannula 2.00 01/29/17 08:37 98.5 57 18 155/67 95 01/29/17 04:18 97.0 59 17 121/56 96 01/29/17 00:09 97.1 62 17 150/63 96 01/28/17 20:30 52 01/28/17 20:15 97.5 66 17 164/72 96 01/28/17 20:00 96 Room Air 01/28/17 17:51 Nasal Cannula 2.00 01/28/17 16:00 98.1 56 17 130/57 98 01/28/17 01/28/17 01/29/17 14:59 22:59 06:59 Intake Total 750 ml 240 ml 120 ml Balance 750 ml 240 ml 120 ml Intake Oral 750 ml 240 ml 120 ml # Voids 4 2 2 # Bowel Movements 0 Laboratory Tests Test 01/28/17 20:07 Procalcitonin 20.23 ng/mL IMAGING: Chest X-Ray 01/28/17 0000 Signed Impressions: Service Date/Time: Saturday, January 28, 2017 16:05 - CONCLUSION: The bilateral lower lung zone predominant interstitial opacities have slightly improved. Isaak Day MD Chest X-Ray 01/26/17 0000 Signed Impressions: Service Date/Time: Thursday, January 26, 2017 08:29 - CONCLUSION: Stable chest x- ray with diffuse interstitial opacities more severe in the lower lung zones. The appearance and distribution could represent pulmonary edema in the appropriate clinical setting. There is trace pleural fluid bilaterally. Isaak Day MD Chest X-Ray 01/22/17 0000 Signed Impressions: Service Date/Time: Sunday, January 22, 2017 05:34 - CONCLUSION: Slight CHF and slight bibasilar atelectasis. Vicente Gibbs MD Lower Extremity Ultrasound 01/21/17 Signed Impressions: Service Date/Time: Saturday, January 21, 2017 14:19 - CONCLUSION: 1. No evidence of deep venous thrombosis. Romel Chavez MD Chest CT 01/21/17 Signed Impressions: Service Date/Time: Saturday, January 21, 2017 11:54 - CONCLUSION: 1. Examination quality is degraded by respiratory motion artifact. However, there is a diffuse interstitial process bilaterally throughout the lungs that is slightly more severe in the lower lung zones. It consists of septal thickening and groundglass opacity. Appearance is nonspecific and differential diagnostic considerations include edema, infection, or inflammatory conditions. It appears similar to the prior chest x-rays. 2. Nonspecific mediastinal lymphadenopathy. 3. There is a 19 mm left adrenal gland mass. It does not meet criteria on this examination but its lack of significant change since December 2014 is indicative of a benign process. Isaak Day MD Foot X-Ray 01/19/17 0000 Signed Impressions: Service Date/Time: Thursday, January 19, 2017 11:49 - CONCLUSION: Soft tissue swelling and postsurgical changes. Phill Finley MD PHYSICAL EXAMINATION GENERAL: Awake and alert and oriented. HEENT: No icterus. Oropharynx moist mucosa. NECK: Supple without adenopathy. LUNGS: BS clearer. HEART: Regular rate and rhythm. No murmurs, rubs or gallops. ABDOMEN: Bowel sounds present, obese, soft, nontender. EXTREMITIES: No clubbing or cyanosis. Non pitting edema bilaterally R>>L. There is a tiny superficial bruise at the left heel which has mild tenderness on palpation in the region. No drainage. NEUROLOGIC: Nonfocal. SKIN: No rash. PSYCHIATRIC: Calm and cooperative. IMPRESSION 1. Fever. Improved. 2. Sepsis suggested by fever, increased respiratory rate, elevated white blood cell count. No clear source of infection. Improved 3. Pneumonia. Diffuse interstitial lung disease on CT scan. ? atypical PNA. Improved. 4. Leukocytosis. Questionable etiology. Improved. RECOMMENDATIONS Switch Levaquin to PO x 7 more days. Okay to discharge from my standpoint tomorrow. I will sign off now. Arik Marquis MD January 29, 2017 15:26
[2017-01-29] MEDS ORDERED: WARFARIN SOD 2 MG TAB PO SCH (16:00)
[2017-01-29] MEDS: WARFARIN SOD 4 MG TAB PO SCH (18:01)
[2017-01-29] MEDS: LEVOFLOXACIN 750 MG PREMIX INJ 150 ML IV SCH (18:02)
[2017-01-29] MEDS: ATORVASTATIN 40 MG TAB PO SCH (20:39)
--- NOTE | 2017-01-29 20:39 | HHI.PR ---
Subjective Remarks 51 YOAA female with Pn, Resp insuff Up in chair Breathing better Feels better no Fever Objective Vital Signs Vital Signs Date Time Temp Pulse Resp B/P Pulse Ox O2 Delivery O2 Flow Rate FiO2 01/29/17 16:06 98.4 56 18 133/63 95 01/29/17 12:40 97.8 52 18 156/69 93 01/29/17 11:20 98 Nasal Cannula 2.00 01/29/17 08:37 98.5 57 18 155/67 95 01/29/17 04:18 97.0 59 17 121/56 96 01/29/17 00:09 97.1 62 17 150/63 96 I/O 01/28/17 01/28/17 01/28/17 01/29/17 01/29/17 01/29/17 07:00 15:00 23:00 07:00 15:00 23:00 Intake Total 750 ml 240 ml 120 ml 480 ml Balance 750 ml 240 ml 120 ml 480 ml Intake Oral 750 ml 240 ml 120 ml 480 ml # Voids 4 2 2 4 # Bowel Movements 0 Result Diagram: 01/26/17 0739 01/26/17 0739 Objective Remarks GENERAL: WBWN female,NAD SKIN: Warm and dry. HEAD: Normocephalic. EYES: No scleral icterus. No injection or drainage. NECK: Supple, trachea midline. No JVD or lymphadenopathy. CARDIOVASCULAR: Regular rate and rhythm without murmurs, gallops, or rubs. RESPIRATORY: Breath sounds equal bilaterally. No accessory muscle use. GASTROINTESTINAL: Abdomen soft, non-tender, nondistended. MUSCULOSKELETAL: No cyanosis, or edema. BACK: Nontender without obvious deformity. No CVA tenderness. A/P Assessment and Plan Resp insuff improved Pneumonia Sepsis AF DM HTN PLAN: Cont Abx Zosyn Coumadin to keep INR 2-3 Aerosol nebs Titerate 02 to keep sat >90% Stable on RA OOB and ambulate Alessio Ackerman MD January 29, 2017 20:39
[2017-01-29] MEDS: SODIUM CHLORIDE 0.9% FLUSH 10 ML FLUSH IV FLUSH SCH (21:00)
[2017-01-30] MEDS: HYDROmorphone HCL PF 1 MG/ML VIAL IV PUSH PRN ×2 (01:43→09:13)
[2017-01-30 04:00] VITALS: BP 147/62; PULSE 56; RESP 20; TEMP 98.5; O2SAT 95
[2017-01-30] MEDS: oxyCODONE/ACETAMINOPHEN 10 MG/325 MG TAB PO PRN (06:37)
[2017-01-30] MEDS: INSULIN ASPART SUPPLEMENTAL SCALE SQ SCH ×3 (07:00→16:00)
[2017-01-30 07:08] VITALS: PULSE 58
[2017-01-30] MEDS: INSULIN HUMAN NPH/R 70/30 1,000 UNITS/10 ML VIAL SQ SCH ×3 (08:00→16:49)
[2017-01-30 08:16] LABS: INTERNATIONAL NORMALIZED RATIO 1.5 RATIO; PROTHROMBIN TIME - PATIENT 16.4 SEC (9.8-11.6)
[2017-01-30 08:24] LABS: BASOPHIL % 0.6 % (0.0-2.0); EOSINOPHIL # 0.1 TH/MM3 (0-0.4); EOSINOPHIL % 1.3 % (0.0-4.0); HEMATOCRIT 30.2 % (35.0-46.0); HEMO FLAGS DIFF FINAL; LYMPH % 25.9 % (9.0-44.0); MEAN CELL VOLUME 68.6 FL (80.0-100.0); MEAN CORPUSCULAR HEMOGLOBIN 21.1 PG (27.0-34.0); MEAN CORPUSCULAR HGB CONC 30.7 % (32.0-36.0); MONO % 6.5 % (0.0-8.0); NEUT % 65.7 % (16.0-70.0); PLATELET COUNT 384 TH/MM3 (150-450); RED BLOOD COUNT 4.39 MIL/MM3 (4.00-5.30); RED CELL DISTRIBUTION WIDTH 17.3 % (11.6-17.2); WHITE BLOOD COUNT 7.6 TH/MM3 (4.0-11.0)
[2017-01-30 08:30] VITALS: O2SAT 96
[2017-01-30 08:35] LABS: BICARBONATE 24.2 MEQ/L (21.0-32.0)
[2017-01-30] MEDS: INSULIN DETEMIR 100 UNITS/ML VIAL SQ SCH (08:56)
[2017-01-30] MEDS: PANTOPRAZOLE SOD 40 MG DELAYED RELEASE TAB PO SCH (09:00)
[2017-01-30] MEDS: NIFEdipine 60 MG SUSTAINED RELEASE TAB PO SCH ×2 (09:00→09:01)
[2017-01-30] MEDS: BUMETANIDE 1 MG TAB PO SCH (09:00)
[2017-01-30] MEDS: CARVEDILOL 12.5 MG TAB PO SCH (09:00)
[2017-01-30] MEDS: LISINOPRIL 20 MG TAB PO SCH (09:00)
[2017-01-30] MEDS: SODIUM CHLORIDE 0.9% FLUSH 10 ML FLUSH IV FLUSH SCH (09:00)
[2017-01-30] MEDS: GABAPENTIN 300 MG CAP PO SCH (09:00)
[2017-01-30] MEDS: amLODIPine BESYLATE 5 MG TAB PO SCH (09:01)
[2017-01-30 09:13] VITALS: BP 164/47; PULSE 51; RESP 16; TEMP 97.8; O2SAT 95
[2017-01-30 12:13] VITALS: BP 151/79; PULSE 51; RESP 16; TEMP 97.5; O2SAT 99
--- NOTE | 2017-01-30 15:25 | HHI.PR ---
Subjective Remarks Pt states that she has chronic pain in her legs and back. denies any CP/SOB/N/V States she has good f/u w Dr. Buenrostro. Gets her pain meds from Dr. Buenrostro. She tells me that he also checks her INR regularly. Discussed w RN, pt has been ambulating in room to go to restroom. Pt confirms and states that she didn't have much difficulty. Lives w son and will go back there. she has a walker at home Objective Vitals Vital Signs Date Time Temp Pulse Resp B/P Pulse Ox O2 Delivery O2 Flow Rate FiO2 01/30/17 12:13 97.5 51 16 151/79 99 01/30/17 09:13 97.8 51 16 164/47 95 01/30/17 08:30 96 Nasal Cannula 2.00 01/30/17 07:38 18 01/30/17 07:08 58 01/30/17 07:00 Room Air 01/30/17 04:00 98.5 56 20 147/62 95 01/30/17 01:34 Room Air 01/29/17 21:22 Nasal Cannula 01/29/17 20:00 98.4 57 20 136/64 95 01/29/17 19:50 18 01/29/17 16:06 98.4 56 18 133/63 95 I/O 01/29/17 01/29/17 01/29/17 01/30/17 01/30/17 01/30/17 07:00 15:00 23:00 07:00 15:00 23:00 Intake Total 120 ml 480 ml 240 ml 200 ml Balance 120 ml 480 ml 240 ml 200 ml Intake Oral 120 ml 480 ml 240 ml 200 ml # Voids 2 4 2 1 # Bowel Movements 0 Result Diagram: 01/30/17 0712 01/30/17 0712 Imaging Last Impressions Chest X-Ray 01/28/17 0000 Signed Impressions: Service Date/Time: Saturday, January 28, 2017 16:05 - CONCLUSION: The bilateral lower lung zone predominant interstitial opacities have slightly improved. Isaak Day MD Lower Extremity Ultrasound 01/21/17 0000 Signed Impressions: Service Date/Time: Saturday, January 21, 2017 14:19 - CONCLUSION: 1. No evidence of deep venous thrombosis. Romel Chavez MD Chest CT 01/21/17 0000 Signed Impressions: Service Date/Time: Saturday, January 21, 2017 11:54 - CONCLUSION: 1. Examination quality is degraded by respiratory motion artifact. However, there is a diffuse interstitial process bilaterally throughout the lungs that is slightly more severe in the lower lung zones. It consists of septal thickening and groundglass opacity. Appearance is nonspecific and differential diagnostic considerations include edema, infection, or inflammatory conditions. It appears similar to the prior chest x-rays. 2. Nonspecific mediastinal lymphadenopathy. 3. There is a 19 mm left adrenal gland mass. It does not meet criteria on this examination but its lack of significant change since December 2014 is indicative of a benign process. Isaak Day MD Foot X-Ray 01/19/17 0000 Signed Impressions: Service Date/Time: Thursday, January 19, 2017 11:49 - CONCLUSION: Soft tissue swelling and postsurgical changes. hPill Finley MD Procedures none A/P Problem List: (1) Sepsis ICD Code: A41.9 Status: Acute (2) Foot ulcer ICD Code: L97.509 Status: Acute (3) Hyperkalemia ICD Code: E87.5 Status: Acute (4) Renal insufficiency ICD Code: N28.9 Status: Acute (5) A-fib ICD Code: I48.91 Status: Acute (6) HTN (hypertension) ICD Code: I10 Status: Acute (7) DM (diabetes mellitus) ICD Code: E11.9 Status: Acute Assessment and Plan 1. Sepsis: Now resolved, likely due to pneumonia s/p Azithromycin and Zosyn, was on IV Levaquin and ID switched her to po levaquin. recommendations are to d/c her on po levaquin x 7 more days. she has been cleared by ID for discharge. blood cultures NTD. Repeat chest x-ray 01/28/17 showed that The bilateral lower lung zone predominant interstitial opacities have slightly improved. Mycoplasma serology negative, chlamydia serology with evidence of past infection. 2.Acute respiratory failure- due to pneumonia-resolved patient refused V/Q scan- however CTA could not be done due to renal insufficiency- venous doppler negative for DVT- Pulmonary medicine following. Continue with DuoNeb when necessary 3. Foot Ulcers: Bilateral Stage I-II Heel Ulcers, no drainage noted. Appreciate input from wound care. Continue current Shaw wrap 4. Hyperkalemia: resolved. 5. Acute kidney injury superimposed on chronic renal insufficiency-improved- avoid nephrotoxins- monitor as an outpatient. 6. A. fib: Chronic. On Coumadin ; INR subtherapeutic. Consider Lovenox subcutaneous every 12 hours bridge 7. HTN: Continue nifedipine ER 60 mg daily ,Coreg and Norvasc - continue lisinopril and Bumex 8. DM: Continue short acting 5 units 3 times a day and Lantus 50 units twice a day as well as Sliding scale w/ Accu-Cheks. Continue to Hold Glipizide 9. Anemia- hypochromic-microcytic; stable and monitor H&H 10. DVT Prophylaxis: SCD/Teds/ Coumadin- Discharge Planning d/c home today. f/u w Dr. Buenrostro next week heart healthy/diabetic diet activity ad alondra stable. Problem Qualifiers (1) Sepsis: Qualified Code: A41.9 - Sepsis, due to unspecified organism Sonya Betancourt MD Jan 30, 2017 15:25
[2017-01-30] MEDS ORDERED: LEVO750T3 PO (15:27)
[2017-01-30] MEDS ORDERED: ENOX100P SQ (15:30)
--- NOTE | 2017-01-30 15:34 | HHI.DS ---
Discharge Summary Admission Date January 19, 2017 at 16:55 Discharge Date: Jan 30, 2017 Admitting Diagnosis Sepsis, hyperkalemia (1) Sepsis ICD Code: A41.9 Diagnosis: Principal (2) Foot ulcer ICD Code: L97.509 Diagnosis: Principal (3) Hyperkalemia ICD Code: E87.5 Diagnosis: Principal (4) Renal insufficiency ICD Code: N28.9 Diagnosis: Principal (5) A-fib ICD Code: I48.91 Diagnosis: Principal (6) HTN (hypertension) ICD Code: I10 Diagnosis: Secondary (7) DM (diabetes mellitus) ICD Code: E11.9 Diagnosis: Secondary Procedures none Brief History - From Admission This is a 51-year-old female with a PMH of HTN, Anxiety, A. fib on Coumadin, PVD , Peripheral Neuropathy, Gout, DM and COPD who presented to the ER secondary to fever and complaints of foot pain. Denies nausea, vomiting, diarrhea, SOB or sick contacts. On arrival, BP 204/86, HR 93, O2 sat 91% on RA, Temp 102.4, Tmax 103.4. WBC 19.5. K+ 5.8, creatinine 1.92, previously 1.37 on 11/30/16. INR pending. UA negative. CXR with no acute findings. Foot X-ray of soft tissue swelling and postsurgical changes. S/p Blood Cultures, Vanc/Zosyn in ER. CBC/BMP: 01/30/17 0712 01/30/17 0712 Significant Findings Laboratory Tests Test 01/28/17 01/28/17 01/29/17 01/30/17 07:45 20:07 07:20 07:12 Prothrombin Time 15.9 SEC 15.2 SEC 16.4 SEC (9.8-11.6) (9.8-11.6) (9.8-11.6) Procalcitonin 20.23 ng/mL (0.00-0.50) Hemoglobin 9.3 GM/DL (11.6-15.3) Hematocrit 30.2 % (35.0-46.0) Mean Corpuscular Volume 68.6 FL (80.0-100.0) Mean Corpuscular Hemoglobin 21.1 PG (27.0-34.0) Mean Corpuscular Hemoglobin 30.7 % Concent (32.0-36.0) Red Cell Distribution Width 17.3 % (11.6-17.2) Blood Urea Nitrogen 39 MG/DL (7-18) Creatinine 1.57 MG/DL (0.50-1.00) Estimat Glomerular Filtration 42 ML/MIN (>89) Rate PE at Discharge GENERAL: NAD and sitting in a chair SKIN: Warm and dry. HEAD: Normocephalic. EYES: No scleral icterus. No injection or drainage. NECK: Supple, trachea midline. No JVD or lymphadenopathy. CARDIOVASCULAR: irreg Regular rate and rhythm without murmurs, gallops, or rubs. RESPIRATORY: Breath sounds equal bilaterally. No accessory muscle use. GASTROINTESTINAL: Abdomen soft, non-tender, nondistended. MUSCULOSKELETAL: No cyanosis; +BLE chronic ulcers. Left lower extremity wrapped in Shaw band BACK: Nontender without obvious deformity. No CVA tenderness. Hospital Course Pt was admitted for Sepsis, due to pneumonia. s/p Azithromycin and Zosyn, was on IV Levaquin and ID switched her to po levaquin. recommendations are to d/c her on po levaquin x 7 more days. she has been cleared by ID for discharge. blood cultures NTD. Patient refused V/Q scan- however CTA could not be done due to renal insufficiency- venous doppler negative for DVT- Pulmonary medicine evaluated the patient and she was treated w duonebs prn. On day of discharge pt had no SOB. Foot Ulcers: Bilateral Stage I-II Heel Ulcers, no drainage noted. Appreciate input from wound care. Continue current Shaw wrap and elevate legs at rest Acute kidney injury superimposed on chronic renal insufficiency-improved- avoid nephrotoxins- monitor as an outpatient. A. fib: Chronic. On Coumadin ; INR subtherapeutic but going up. Monitor INR daily w copy to PCP and adjust coumadin as an outpatient. Pt Condition on Discharge: Stable Discharge Disposition: Discharge Home Discharge Time: > 30 minutes Discharge Instructions DIET: Follow Instructions for: Heart Healthy Diet, Diabetic Diet Activities you can perform: Regular-No Restrictions Follow up Referrals: Physician - 02/03/17 Pulmonology - 1 Week New Orders: PT/INR - Daily New Medications: Levofloxacin (Levofloxacin) 750 Mg Tablet 750 MG PO Q24H #6 Continued Medications: Atorvastatin (Lipitor) 40 Mg Tab 40 MG PO HS #30 Ref 1 TAB Bumetanide (Bumetanide) 1 Mg Tab 1 MG PO BID #30 Ref 0 TAB Carvedilol (Coreg) 12.5 Mg Tab 25 MG PO BID heart #60 TAB Cholecalciferol (Vitamin D-3) 1,000 Unit Tab 1000 UNITS PO HS #30 Ref 0 TAB Gabapentin (Gabapentin) 600 Mg Tab 600 MG PO TID #90 Ref 0 TAB Insulin Glargine Inj (Lantus Inj) 1,000 Unit/10 Ml Vial 50 UNITS SQ BID Blood Sugar Management Ref 0 VIAL Insulin Human Isophane-Regular 70-30 Inj (Novolin 70-30 Inj) 1,000 Unit/10 Ml Vial 5 UNITS SQ TIDAC Blood Sugar Management Ref 0 ML Lisinopril (Lisinopril) 20 Mg Tab 20 MG PO BID #30 Ref 0 TAB Nifedipine ER 24 HR (Nifedical XL) 60 Mg Tab 60 MG PO DAILY #30 TAB Oxycodone-Acetaminophen (Percocet) 10-325 mg Tab 1 TAB PO Q4H PRN PAIN GREATER THAN 5 #30 Ref 0 TAB Pantoprazole (Pantoprazole) 40 Mg Tab 40 MG PO DAILY Reflux #30 Ref 0 TAB Spironolactone (Aldactone) 25 Mg Tab 25 MG PO DAILY CHF #30 Ref 0 TAB Warfarin (Warfarin) 6 Mg Tab 6 MG PO SuMoWeFrSa Blood Clot Prevention #30 Ref 0 TAB Warfarin (Warfarin) 1 Mg Tab 1 MG PO TuTh Blood Clot Prevention #30 Ref 0 TAB Discontinued Medications: Glipizide (Glipizide) 10 Mg Tab 10 MG PO BID Take 30 minutes before a meal Blood Sugar Management #60 Ref 0 TAB Sonya Betancourt MD Jan 30, 2017 15:34
[2017-01-30] MEDS ORDERED: WARFARIN SOD 2 MG TAB PO SCH (16:00)
[2017-01-30] MEDS: WARFARIN SOD 4 MG TAB PO SCH (16:51)
[2017-01-30] MEDS ORDERED: LEVOFLOXACIN 750 MG TAB PO SCH (18:00)
== END 2017-01-30 18:33 | disposition home or self-care (01) | DRG 871 ==
LOC: NEPC 10:54 → NEDA 16:55 → N05A 20:51
PROVIDERS: ADMIT Hospitalist; ATTEND Hospitalist
DX: A41.9 Sepsis, unspecified organism (principal); J18.9 Pneumonia, unspecified organism; J96.01 Acute respiratory failure with hypoxia; I13.0 Hypertensive heart and chronic kidney disease with heart failure and stage 1 through stage 4 chronic kidney disease, or unspecified chronic kidney disease; N17.9 Acute kidney failure, unspecified; I50.22 Chronic systolic (congestive) heart failure; J44.0 Chronic obstructive pulmonary disease with (acute) lower respiratory infection; Z68.41 Body mass index [BMI] 40.0-44.9, adult; E11.22 Type 2 diabetes mellitus with diabetic chronic kidney disease; N18.9 Chronic kidney disease, unspecified; D50.9 Iron deficiency anemia, unspecified; G62.9 Polyneuropathy, unspecified; I73.9 Peripheral vascular disease, unspecified; E78.5 Hyperlipidemia, unspecified; G47.30 Sleep apnea, unspecified; E87.5 Hyperkalemia; G89.29 Other chronic pain; I48.2 Chronic atrial fibrillation; K21.9 Gastro-esophageal reflux disease without esophagitis; K58.0 Irritable bowel syndrome with diarrhea; L89.622 Pressure ulcer of left heel, stage 2; L89.612 Pressure ulcer of right heel, stage 2; M10.9 Gout, unspecified; Z79.01 Long term (current) use of anticoagulants; Z79.4 Long term (current) use of insulin; Z89.422 Acquired absence of other left toe(s); E66.9 Obesity, unspecified
CPT/HCPCS: 36600; 71010; 71020; 71250; 73630; 76937; 80048; 80053; 80202; 81001; 82565; 82728; 82805; 82948; 83036; 83540; 83550; 83605; 83735; 83880; 84100; 84132; 84145; 85025; 85379; 85610; 85652; 85730; 86038; 86140; 86430; 86631; 86632; 86738; 87040; 93005; 93970; 94150; 94640; 94664; 96365; 96375; J0610; J1170; J1815; J1956; J2060; J2543; J3370; J7030; J7040; J7050; J7611

== ENCOUNTER 2017-04-13 19:16 | Observation (INO) | payer OTHER ==
[~2017-04-13] VITALS: Ht 158.8 cm; Wt 112.4 kg
[~2017-04-13 19:16] MED LIST changes: -DILA2TAB2 PO; -GLIP10TA6 PO; +LEVO750T3 PO; +NOVO7030P2 SQ; +WARF4TAB52 PO
[2017-04-13 19:26] VITALS: BP 197/79; PULSE 63; RESP 20; TEMP 98.1; O2SAT 97
[2017-04-13] MEDS ORDERED: NITROGLYCERIN 2% OINT 1 GM PACKET TOPICAL ONE (19:30)
--- NOTE | 2017-04-13 19:30 | PD ---
HPI Chief Complaint: Respiratory Distress Time Seen by Provider: 19:21 Travel History International Travel<30 days: No Contact w/Intl Traveler<30days: No Traveled to known affect area: No History of Present Illness HPI This 51-year-old female says she got short of breath about an hour. She has a history of diabetes and congestive failure. She has a history of renal insufficiency. She has had trouble like this in the past. He has not had any fever or chills. She is not aware of any history of [place]. She is on Coumadin. Patient has been intubated for congestive heart failure in the past. She has noted increasing swelling of her legs. She has had some burning sensation which is substernal. She has poor circulation in her legs and has recently had a CTA of his own to see a vascular surgeon next week for possible angioplasty. She has been having pain in her left leg. PFSH Past Medical History Hx Anticoagulant Therapy: Yes Anemia: Yes Arthritis: Yes Asthma: No Atrial Fibrillation: Yes Autoimmune Disease: No Blood Disorders: No Anxiety: Yes Depression: No Heart Rhythm Problems: Yes (afib) Cancer: No Cardiovascular Problems: Yes High Cholesterol: No Chemotherapy: No Chest Pain: Yes Congestive Heart Failure: Yes COPD: Yes Cerebrovascular Accident: No Diabetes: Yes Diminished Hearing: No Deep Vein Thrombosis: Yes Endocrine: Yes Gastrointestinal Disorders: Yes (IBS) GERD: Yes Gout: Yes Genitourinary: Yes Headaches: Yes Hepatitis: No Hiatal Hernia: No Heparin Induced Thrombocytopen: No Hypertension: Yes Immune Disorder: No Implanted Vascular Access Dvce: No Kidney Stones: No Musculoskeletal: Yes Neurologic: No Psychiatric: Yes Reproductive: No Respiratory: Yes Immunizations Current: Yes Migraines: No Myocardial Infarction: No Pneumonia: Yes Radiation Therapy: No Renal Failure: No Seizures: No Sleep Apnea: Yes Thyroid Disease: No Ulcer: Yes PNEUMOCCOCAL Vaccine (Year): 2 Menopausal: Yes : 5 Para: 4 Miscarriage: 1 Tubal Ligation: Yes Past Surgical History Abdominal Surgery: No AICD: No Appendectomy: No Arteriovenous Shunt: No Cardiac Surgery: No Cholecystectomy: No Ear Surgery: No Endocrine Surgery: No Eye Surgery: No Genitourinary Surgery: No Gynecologic Surgery: Yes (tubal ligation) Insulin Pump: No Joint Replacement: No Neurologic Surgery: No Oral Surgery: Yes (tooth extraction) Pacemaker: No Thoracic Surgery: No Tonsillectomy: Yes Other Surgery: Yes (DEBRIDEMENT OF ABSCESS, STENT IN LT LEG, FASCIOTOMY LEFT LEG) Social History Alcohol Use: No (FARHAT) Tobacco Use: No Substance Use: No Allergies-Medications (Allergen,Severity, Reaction): Coded Allergies: Ibuprofen (Verified Allergy, Severe, MESSES WITH KIDNEYS, 01/19/17) Sulfa (Verified Allergy, Severe, HIVES, 01/19/17) Egg Allergy (Verified Allergy, Intermediate, Very Upset Stomach, 01/19/17) Milk (Verified Allergy, Unknown, 01/19/17) *MDRO Multi-Drug Resistant Organism (Verified Adverse Reaction, Unknown, KPC, ESBL, MRSA, 01/19/17) MRSA (leg wound) - 11/2004, 01/2005 MRSA toe wound 12/21/14. 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 Reported Meds & Prescriptions Reported Meds & Active Scripts Active Aldactone (Spironolactone) 25 Mg Tab 25 Mg PO DAILY Coreg (Carvedilol) 12.5 Mg Tab 25 Mg PO BID Bumetanide 1 Mg Tab 1 Mg PO BID Lipitor (Atorvastatin Calcium) 40 Mg Tab 40 Mg PO HS Reported Lortab (Hydrocodone-Acetaminophen) 10-325 Mg Tab 1 Tab PO Q6H PRN Coumadin (Warfarin) 3 Mg Tab 3 Mg PO SAT,SUN Warfarin 5 Mg Tab 5 Mg PO MON,,WED,TH,F Losartan (Losartan Potassium) 100 Mg Tab 100 Mg PO DAILY Vitamin D3 (Cholecalciferol) 5,000 Unit Cap 5,000 Units PO DAILY Clonidine (Clonidine HCl) 0.1 Mg Tab 0.1 Mg PO BID Glipizide 10 Mg Tab 10 Mg PO BIDAC Take 30 minutes before a meal Nifedipine ER 24 HR (Nifedipine) 60 Mg Tab 60 Mg PO DAILY Novolin 70-30 Inj (Insulin Human Isoph/Insulin Regular) 1,000 Unit/10 Ml Vial 10 Units SQ TIDAC Lantus Inj (Insulin Glargine) 1,000 Unit/10 Ml Vial 50 Units SQ BID Pantoprazole (Pantoprazole Sodium) 40 Mg Tab 40 Mg PO DAILY Gabapentin 600 Mg Tab 800 Mg PO TID Review of Systems General / Constitutional: No: Fever, Chills Eyes: No: Diploplia HENT: No: Headaches Cardiovascular: Positive: Chest Pain or Discomfort Respiratory: Positive: Shortness of Breath, No: Wheezing Gastrointestinal: No: Vomiting, Diarrhea Genitourinary: No: Urgency, Frequency Musculoskeletal: No: Myalgias Neurologic: Positive: Weakness, No: Syncope Hematologic/Lymphatic: No: Easy Bruising Physical Exam Narrative GENERAL: Well-developed female in respiratory distress. Oxygen saturation is 90 SKIN: Focused skin assessment warm/dry. HEAD: Atraumatic. Normocephalic. EYES: Pupils equal and round. No scleral icterus. No injection or drainage. ENT: No nasal bleeding or discharge. Mucous membranes pink and moist. NECK: Trachea midline. No JVD. CARDIOVASCULAR: Regular rate and rhythm. No murmur appreciated. RESPIRATORY accessory muscle use. Clear to auscultation. Breath sounds equal bilaterally. There are some bibasilar rales GASTROINTESTINAL: Abdomen soft, non-tender, nondistended. Hepatic and splenic margins not palpable. MUSCULOSKELETAL: No obvious deformities. No clubbing. No cyanosis. There is bilateral pitting edema. There is an amputation of the toes on the left foot. Pulses in the left leg NEUROLOGICAL: Awake and alert. No obvious cranial nerve deficits. Motor grossly within normal limits. Normal speech. PSYCHIATRIC: Appropriate mood and affect; insight and judgment normal. Data Data Last Documented VS Vital Signs Date Time Temp Pulse Resp B/P Pulse Ox O2 Delivery O2 Flow Rate FiO2 04/13/17 20:23 65 18 170/86 98 Nasal Cannula 2 04/13/17 19:26 98.1 Orders Electrocardiogram (04/13/17 19:25) Complete Blood Count With Diff (04/13/17 19:25) Comprehensive Metabolic Panel (04/13/17 19:25) Troponin I (04/13/17 19:25) B-Type Natriuretic Peptide (04/13/17 19:25) Prothrombin Time / Inr (Pt) (04/13/17 19:25) Act Partial Throm Time (Ptt) (04/13/17 19:25) Urinalysis - C+S If Indicated (04/13/17 19:25) Magnesium (Mg) (04/13/17 19:25) Chest, Single Ap (04/13/17 19:25) Nitroglycerin 2% Oint (Nitroglycerin 2% (04/13/17 19:30) Furosemide Inj (Lasix Inj) (04/13/17 20:00) Ondansetron Inj (Zofran Inj) (04/13/17 20:45) Morphine Inj (Morphine Inj) (04/13/17 20:45) Labs Laboratory Tests Test 04/13/17 19:40 White Blood Count 8.0 TH/MM3 Red Blood Count 5.19 MIL/MM3 Hemoglobin 11.4 GM/DL Hematocrit 35.9 % Mean Corpuscular Volume 69.1 FL Mean Corpuscular Hemoglobin 22.0 PG Mean Corpuscular Hemoglobin 31.8 % Concent Red Cell Distribution Width 18.8 % Platelet Count 184 TH/MM3 Mean Platelet Volume 9.0 FL Neutrophils (%) (Auto) 69.3 % Lymphocytes (%) (Auto) 23.0 % Monocytes (%) (Auto) 4.2 % Eosinophils (%) (Auto) 3.1 % Basophils (%) (Auto) 0.4 % Neutrophils # (Auto) 5.7 TH/MM3 Lymphocytes # (Auto) 1.8 TH/MM3 Monocytes # (Auto) 0.3 TH/MM3 Eosinophils # (Auto) 0.2 TH/MM3 Basophils # (Auto) 0.0 TH/MM3 CBC Comment AUTO DIFF Sodium Level 142 MEQ/L Potassium Level 4.7 MEQ/L Chloride Level 114 MEQ/L Carbon Dioxide Level 20.1 MEQ/L Anion Gap 8 MEQ/L Blood Urea Nitrogen 37 MG/DL Creatinine 1.70 MG/DL Estimat Glomerular Filtration 38 ML/MIN Rate Random Glucose 139 MG/DL Calcium Level 9.1 MG/DL Magnesium Level 2.0 MG/DL Total Bilirubin 0.3 MG/DL Aspartate Amino Transf 20 U/L (AST/SGOT) Alanine Aminotransferase 16 U/L (ALT/SGPT) Alkaline Phosphatase 149 U/L Troponin I LESS THAN 0.02 NG/ML B-Type Natriuretic Peptide 195 PG/ML Total Protein 8.0 GM/DL Albumin 3.5 GM/DL [facility] Medical Decision Making Medical Screen Exam Complete: Yes Emergency Medical Condition: Yes Medical Record Reviewed: Yes Differential Diagnosis Differential includes COPD, pneumonia, CHF Narrative Course X-ray is suggestive of pulmonary edema. Patient has been given nitroglycerin paste as well as intravenous Lasix. She was put on oxygen. Her respiratory distress is improved considerably. Troponin is negative. EKG shows a sinus rhythm though she does have history of atrial fibrillation. Diagnosis Primary Impression: Acute exacerbation of congestive heart failure Qualified Code: I50.9 - Acute on chronic congestive heart failure, unspecified congestive heart failure type Schuyler Love MD Apr 13, 2017 19:29
[2017-04-13] MEDS ORDERED: FUROSEMIDE 40 MG/4 ML VIAL IV PUSH ONE (20:00)
[2017-04-13] MEDS ORDERED: CHOL5000 PO (20:03)
[2017-04-13] MEDS ORDERED: NIFE60TA58 PO (20:03)
[2017-04-13] MEDS ORDERED: GLIP10TA6 PO (20:03)
[2017-04-13] MEDS ORDERED: CLON0.1T PO (20:03)
[2017-04-13] MEDS ORDERED: LOSA100T PO (20:03)
--- NOTE | 2017-04-13 20:03 | RADRPT ---
EXAM DATE/TIME: 04/13/2017 19:35 [facility] COMPARISON: CHEST SINGLE AP, January 28, 2017, 16:05. INDICATIONS : Shortness of breath. MEDICAL HISTORY : Chronic obstructive pulmonary disease. Congestive heart failure. Hypertension . SURGICAL HISTORY : None. ENCOUNTER: Initial ACUITY: 1 day PAIN SCORE: 0/10 LOCATION: Bilateral chest FINDINGS: Single AP view of the chest. Mild bilateral interstitial opacity suggesting mild pulmonary edema/pulm onary vascular congestion. The lungs are otherwise clear. Cardiomediastinal silhouette mildly promine nt and unchanged. No evidence of pleural effusion or pneumothorax. CONCLUSION: Mild bilateral interstitial pulmonary opacity suggesting mild pulmonary edema. Raymundo Melvin MD on April 13, 2017 at 20:01 Board Certified Radiologist. This report was verified electronically.
[2017-04-13 20:07] LABS: AUTOMATED NEUTROPHIL # 5.7 TH/MM3 (1.8-7.7); BASOPHIL % 0.4 % (0.0-2.0); EOSINOPHIL # 0.2 TH/MM3 (0-0.4); EOSINOPHIL % 3.1 % (0.0-4.0); HEMATOCRIT 35.9 % (35.0-46.0); LYMPHOCYTE # 1.8 TH/MM3 (1.0-4.8); MEAN CELL VOLUME 69.1 FL (80.0-100.0); MEAN CORPUSCULAR HGB CONC 31.8 % (32.0-36.0); MONO % 4.2 % (0.0-8.0); NEUT % 69.3 % (16.0-70.0); PLATELET COUNT 184 TH/MM3 (150-450); RED BLOOD COUNT 5.19 MIL/MM3 (4.00-5.30); RED CELL DISTRIBUTION WIDTH 18.8 % (11.6-17.2)
[2017-04-13 20:10] LABS: HEMO FLAGS AUTO DIFF
[2017-04-13] MEDS ORDERED: AMLO10TA2 PO (20:10)
[2017-04-13 20:19] LABS: CHLORIDE 114 MEQ/L (98-107); POTASSIUM 4.7 MEQ/L (3.5-5.1); SODIUM (NA) 142 MEQ/L (136-145)
[2017-04-13] MEDS ORDERED: WARF-23 PO (20:19)
[2017-04-13] MEDS ORDERED: COUM3TAB PO (20:19)
[2017-04-13] MEDS ORDERED: HYDR-3535 PO (20:19)
[2017-04-13 20:23] VITALS: BP 170/86; PULSE 65; RESP 18; O2SAT 98
[2017-04-13 20:23] LABS: ANION GAP 8 MEQ/L (5-15); BICARBONATE 20.1 MEQ/L (21.0-32.0); BLOOD UREA NITROGEN 37 MG/DL (7-18)
[2017-04-13 20:26] LABS: ALT (GPT) 16 U/L (10-53); AST (GOT) 20 U/L (15-37); GLOMERULAR FILTRATION RATE 38 ML/MIN (>89)
[2017-04-13 20:27] LABS: TOTAL BILIRUBIN ADULT 0.3 MG/DL (0.2-1.0)
[2017-04-13 20:29] LABS: ALKALINE PHOSPHATASE 149 U/L (45-117)
[2017-04-13] MEDS ORDERED: MORPHINE SULFATE 8 MG/ML INJ IV PUSH ONE (20:45)
[2017-04-13] MEDS ORDERED: ONDANSETRON HCL 4 MG/2 ML VIAL IV PUSH ONE (20:45)
[2017-04-13 21:15] LABS: APTT (PATIENT) 31.5 SEC (24.3-30.1); INTERNATIONAL NORMALIZED RATIO 1.6 RATIO; PROTHROMBIN TIME - PATIENT 17.8 SEC (9.8-11.6)
[2017-04-13 21:25] LABS: BLOOD, URINE TRACE (NEG); GLUCOSE,URINE NEG (NEG); KETONE, URINE NEG (NEG); NITRITE,URINE NEG (NEG)
[2017-04-13 21:27] LABS: OVALOCYTES 1+ (NORMAL); PLATELET ESTIMATE SMEAR NORMAL (NORMAL); PLATELET MORPHOLOGY NORMAL (NORMAL); SCAN/DIFF AUTO DIFF CONFIRMED
[2017-04-13] MEDS ORDERED: LACTULOSE SYRUP 20 GM/30 ML CUP PO PRN (21:30)
[2017-04-13] MEDS ORDERED: SENNOSIDES 8.6 MG TAB PO PRN (21:30)
[2017-04-13] MEDS ORDERED: ONDANSETRON HCL 4 MG/2 ML VIAL IVP PRN (21:30)
[2017-04-13] MEDS ORDERED: ACETAMINOPHEN/HYDROcodone 325 MG/5 MG TAB PO PRN (21:30)
[2017-04-13] MEDS ORDERED: DEXTROSE 50% IN WATER 50 ML VIAL(D50) IV PRN (21:30)
[2017-04-13] MEDS ORDERED: BISACODYL 10 MG SUPP RECTAL PRN (21:30)
[2017-04-13] MEDS ORDERED: SODIUM CHLORIDE 0.9% FLUSH 10 ML FLUSH IV FLUSH PRN (21:30)
[2017-04-13] MEDS ORDERED: GLUCAGON 1 MG/ML VIAL OTHER PRN (21:30)
[2017-04-13] MEDS ORDERED: MAGNESIUM HYDROXIDE SUSP 30 ML CUP PO PRN (21:30)
[2017-04-13] MEDS ORDERED: ACETAMINOPHEN 325 MG TAB PO PRN (21:30)
[2017-04-13 21:33] LABS: METHOD OF COLLECTION VOIDED; URINE COLOR STRAW (YELLW/STRAW)
[2017-04-13 21:35] LABS: RBC, URINE 0-3 /hpf (0-3); SQUAMOUS EPITHELIAL CELL URINE 0-3 /hpf (0-5); WBC, URINE 0-2 /hpf (0-5)
[2017-04-13 21:36] LABS: BACTERIA, URINE RARE /hpf; TRANSITIONAL EPI CELLS, URINE 0-1 /hpf
[2017-04-13 21:37] LABS: COMMENT (UR) CULTURE INDICATED; CULTURE IF INDICATED CULTURE INDICATED
[2017-04-13 22:31] VITALS: BP 154/63; PULSE 58; RESP 18; O2SAT 96
[2017-04-13 23:23] VITALS: PULSE 51
[2017-04-13] MEDS: ACETAMINOPHEN/HYDROcodone 325 MG/10 MG TAB PO PRN (23:49)
[2017-04-13 23:54] VITALS: PULSE 97
[2017-04-14] VITALS (8 sets, daily range): BP systolic 115–165; BP diastolic 54–70; PULSE 46–63; RESP 18–20; TEMP 97.5–97.7; O2SAT 91–97
[2017-04-14] MEDS ORDERED: ACETAMINOPHEN/HYDROcodone 325 MG/10 MG TAB PO PRN (01:15)
[2017-04-14] MEDS ORDERED: CARVEDILOL 12.5 MG TAB PO ONE (01:15)
[2017-04-14] MEDS ORDERED: MORPHINE SULFATE 4 MG/ML INJ IV PUSH ONE (01:30)
[2017-04-14] MEDS: ACETAMINOPHEN/HYDROcodone 325 MG/10 MG TAB PO PRN ×3 (06:14→15:27)
[2017-04-14] MEDS: glipiZIDE 10 MG TAB PO SCH ×2 (06:14→18:03)
[2017-04-14] MEDS: INSULIN ASPART SUPPLEMENTAL SCALE SQ SCH ×3 (06:16→18:05)
[2017-04-14 08:47] LABS: AUTOMATED NEUTROPHIL # 4.7 TH/MM3 (1.8-7.7); BASOPHIL % 0.6 % (0.0-2.0); EOSINOPHIL # 0.2 TH/MM3 (0-0.4); EOSINOPHIL % 2.2 % (0.0-4.0); HEMATOCRIT 32.6 % (35.0-46.0); HEMO FLAGS AUTO DIFF; LYMPH % 26.7 % (9.0-44.0); MEAN CELL VOLUME 69.2 FL (80.0-100.0); MEAN CORPUSCULAR HEMOGLOBIN 21.6 PG (27.0-34.0); MEAN CORPUSCULAR HGB CONC 31.2 % (32.0-36.0); MONO % 5.6 % (0.0-8.0); NEUT % 64.9 % (16.0-70.0); PLATELET COUNT 243 TH/MM3 (150-450); RED BLOOD COUNT 4.71 MIL/MM3 (4.00-5.30); RED CELL DISTRIBUTION WIDTH 18.7 % (11.6-17.2); WHITE BLOOD COUNT 7.3 TH/MM3 (4.0-11.0)
[2017-04-14 08:59] LABS: CHLORIDE 114 MEQ/L (98-107); POTASSIUM 4.8 MEQ/L (3.5-5.1); SODIUM (NA) 142 MEQ/L (136-145)
[2017-04-14] MEDS ORDERED: DOCUSATE SODIUM 50 MG/SENNA 8.6 MG TAB PO SCH (09:00)
[2017-04-14] MEDS ORDERED: SPIRONOLACTONE 25 MG TAB PO SCH (09:00)
[2017-04-14] MEDS ORDERED: cloNIDine HCL 0.1 MG TAB PO SCH (09:00)
[2017-04-14] MEDS ORDERED: PANTOPRAZOLE SOD 40 MG DELAYED RELEASE TAB PO SCH (09:00)
[2017-04-14] MEDS ORDERED: NIFEdipine 60 MG SUSTAINED RELEASE TAB PO SCH (09:00)
[2017-04-14] MEDS ORDERED: SODIUM CHLORIDE 0.9% FLUSH 10 ML FLUSH IV FLUSH SCH (09:00)
[2017-04-14] MEDS ORDERED: CARVEDILOL 12.5 MG TAB PO SCH (09:00)
[2017-04-14] MEDS ORDERED: INSULIN DETEMIR 100 UNITS/ML VIAL SQ SCH (09:00)
[2017-04-14 09:01] LABS: INTERNATIONAL NORMALIZED RATIO 1.5 RATIO; PROTHROMBIN TIME - PATIENT 16.6 SEC (9.8-11.6)
[2017-04-14 09:02] LABS: ANION GAP 7 MEQ/L (5-15); BICARBONATE 20.7 MEQ/L (21.0-32.0)
[2017-04-14 09:03] LABS: BLOOD UREA NITROGEN 41 MG/DL (7-18)
[2017-04-14 09:05] LABS: ALT (GPT) 16 U/L (10-53)
[2017-04-14 09:06] LABS: AST (GOT) 16 U/L (15-37); GLOMERULAR FILTRATION RATE 48 ML/MIN (>89)
[2017-04-14 09:07] LABS: TOTAL BILIRUBIN ADULT 0.4 MG/DL (0.2-1.0)
[2017-04-14 09:09] LABS: ALKALINE PHOSPHATASE 130 U/L (45-117)
[2017-04-14 09:18] LABS: PLATELET ESTIMATE SMEAR NORMAL (NORMAL); PLATELET MORPHOLOGY NORMAL (NORMAL); SCAN/DIFF AUTO DIFF CONFIRMED
--- NOTE | 2017-04-14 09:23 | HHI.HP ---
HPI Service [facility] Primary Care Physician No Primary Care Physician Admission Diagnosis CHF EXACERBATION Diagnoses: (1) Acute on chronic systolic (congestive) heart failure Chief Complaint: Acute onset Shortness of breath Travel History International Travel<30 Days: No Contact w/Intl Traveler <30 Da: No Traveled to Known Affected Are: No History of Present Illness 51-year-old female with a history of diabetes type 2, chronic systolic CHF, left lower extremity PAD presented to the ED yesterday for evaluation of an acute onset of shortness of breath without any associated chest pain or heart palpitation. Patient states, after a 2 hour watching a movie theater as she was leaving she endorses acute onset of shortness of breath while walking to the door. There was no diaphoresis associated with it. Patient reports being compliant with medical care and denies any change in her diet. She does not recall exposure to any chemical products. In the ED, patient has BNP of 195 and patient was treated with IV diuretic 1. Since admission reports significant improvement of symptoms. Patient has a history of left was treated PD for which she has an appointment with vascular surgery this coming Friday for possible evaluation for angioplasty. Otherwise she has no issues she denies any GI bleed. Review of Systems Except as stated in HPI: all other systems reviewed are Neg Past Family Social History Past Medical History HTN, Anxiety, A. fib on Coumadin, PVD, Peripheral Neuropathy, Gout, DM and COPD Past Surgical History Left Toe Amputation, Fasciotomy Left Leg, Tubal Ligation Reported Medications Aldactone (Spironolactone) 25 Mg Tab 25 Mg PO DAILY Coreg (Carvedilol) 12.5 Mg Tab 25 Mg PO BID Bumetanide 1 Mg Tab 1 Mg PO BID Lipitor (Atorvastatin Calcium) 40 Mg Tab 40 Mg PO HS Reported Lortab (Hydrocodone-Acetaminophen) 10-325 Mg Tab 1 Tab PO Q6H PRN Coumadin (Warfarin) 3 Mg Tab 3 Mg PO SAT,SUN Warfarin 5 Mg Tab 5 Mg PO MON,TU,FRI,,F Losartan (Losartan Potassium) 100 Mg Tab 100 Mg PO DAILY Vitamin D3 (Cholecalciferol) 5,000 Unit Cap 5,000 Units PO DAILY Clonidine (Clonidine HCl) 0.1 Mg Tab 0.1 Mg PO BID Glipizide 10 Mg Tab 10 Mg PO BIDAC Take 30 minutes before a meal Nifedipine ER 24 HR (Nifedipine) 60 Mg Tab 60 Mg PO DAILY Novolin 70-30 Inj (Insulin Human Isoph/Insulin Regular) 1,000 Unit/10 Ml Vial 10 Units SQ TIDAC Lantus Inj (Insulin Glargine) 1,000 Unit/10 Ml Vial 50 Units SQ BID Pantoprazole (Pantoprazole Sodium) 40 Mg Tab 40 Mg PO DAILY Gabapentin 600 Mg Tab 800 Mg PO TID Allergies: Coded Allergies: Ibuprofen (Verified Allergy, Severe, MESSES WITH KIDNEYS, 01/19/17) Sulfa (Verified Allergy, Severe, HIVES, 01/19/17) Egg Allergy (Verified Allergy, Intermediate, Very Upset Stomach, 01/19/17) Milk (Verified Allergy, Unknown, 01/19/17) *MDRO Multi-Drug Resistant Organism (Verified Adverse Reaction, Unknown, KPC, ESBL, MRSA, 01/19/17) MRSA (leg wound) - 11/2004, 01/2005 MRSA toe wound 12/21/14. 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 Family History Mother with history of diabetes type 2 Father with history of heart failure, CAD Social History Alcohol Use: No (FARHAT) Tobacco Use: No Substance Use: No Physical Exam Vital Signs Vital Signs Date Time Temp Pulse Resp B/P Pulse Ox O2 Delivery O2 Flow Rate FiO2 04/14/17 04:46 97.7 62 20 165/67 94 04/14/17 00:20 63 04/14/17 00:19 56 04/13/17 23:54 97 04/13/17 23:23 51 04/13/17 22:31 58 18 154/63 96 Room Air 04/13/17 20:23 65 18 170/86 98 Nasal Cannula 2 04/13/17 19:50 Nasal Cannula 2 04/13/17 19:30 20 97 Room Air 04/13/17 19:26 98.1 63 20 197/79 97 Physical Exam GENERAL: This is a well-nourished, well-developed patient, in no apparent distress. SKIN: No rashes, ecchymoses or lesions. Cool and dry. HEAD: Atraumatic. Normocephalic. No temporal or scalp tenderness. EYES: Pupils equal round and reactive. Extraocular motions intact. No scleral icterus. No injection or drainage. ENT: Nose without bleeding, purulent drainage or septal hematoma. Throat without erythema, tonsillar hypertrophy or exudate. Uvula midline. Airway patent. NECK: Trachea midline. No JVD or lymphadenopathy. Supple, nontender, no meningeal signs. CARDIOVASCULAR: Regular rate and rhythm without murmurs, gallops, or rubs. RESPIRATORY: Clear to auscultation. Breath sounds equal bilaterally. No wheezes , rales, or rhonchi. GASTROINTESTINAL: Abdomen soft, non-tender, nondistended. No hepato-splenomegaly , or palpable masses. No guarding. MUSCULOSKELETAL: Extremities without clubbing, cyanosis, or edema. No joint tenderness, effusion, or edema noted. No calf tenderness. Negative Homans sign bilaterally. NEUROLOGICAL: Awake and alert. Cranial nerves II through XII intact. Motor and sensory grossly within normal limits. Five out of 5 muscle strength in all muscle groups. Normal speech. Laboratory Laboratory Tests Test 04/13/17 04/13/17 04/13/17 04/14/17 19:40 20:44 21:15 00:30 White Blood Count 8.0 Red Blood Count 5.19 Hemoglobin 11.4 Hematocrit 35.9 Mean Corpuscular Volume 69.1 Mean Corpuscular Hemoglobin 22.0 Mean Corpuscular Hemoglobin 31.8 Concent Red Cell Distribution Width 18.8 Platelet Count 184 Mean Platelet Volume 9.0 Neutrophils (%) (Auto) 69.3 Lymphocytes (%) (Auto) 23.0 Monocytes (%) (Auto) 4.2 Eosinophils (%) (Auto) 3.1 Basophils (%) (Auto) 0.4 Neutrophils # (Auto) 5.7 Lymphocytes # (Auto) 1.8 Monocytes # (Auto) 0.3 Eosinophils # (Auto) 0.2 Basophils # (Auto) 0.0 CBC Comment AUTO DIFF Differential Comment AUTO DIFF CONFIRMED Platelet Estimate NORMAL Platelet Morphology Comment NORMAL Ovalocytes 1+ Sodium Level 142 Potassium Level 4.7 Chloride Level 114 Carbon Dioxide Level 20.1 Anion Gap 8 Blood Urea Nitrogen 37 Creatinine 1.70 Estimat Glomerular Filtration 38 Rate Random Glucose 139 Calcium Level 9.1 Magnesium Level 2.0 Total Bilirubin 0.3 Aspartate Amino Transf 20 (AST/SGOT) Alanine Aminotransferase 16 (ALT/SGPT) Alkaline Phosphatase 149 Troponin I LESS THAN 0.02 0.02 B-Type Natriuretic Peptide 195 Total Protein 8.0 Albumin 3.5 Prothrombin Time 17.8 Prothromb Time International 1.6 Ratio Activated Partial 31.5 Thromboplast Time Urine Collection Type VOIDED Urine Color STRAW Urine Turbidity CLEAR Urine pH 6.0 Urine Specific Elmo 1.008 Urine Protein 100 Urine Glucose (UA) NEG Urine Ketones NEG Urine Occult Blood TRACE Urine Nitrite NEG Urine Bilirubin NEG Urine Leukocyte Esterase TRACE Urine RBC 0-3 Urine WBC 0-2 Urine WBC Clumps OCC Urine Squamous Epithelial 0-3 Cells Urine Transitional Epithelial 0-1 Cells Urine Bacteria RARE Microscopic Urinalysis Comment CULTURE INDICATED Test 04/14/17 08:35 White Blood Count 7.3 Red Blood Count 4.71 Hemoglobin 10.2 Hematocrit 32.6 Mean Corpuscular Volume 69.2 Mean Corpuscular Hemoglobin 21.6 Mean Corpuscular Hemoglobin 31.2 Concent Red Cell Distribution Width 18.7 Platelet Count 243 Mean Platelet Volume 8.5 Neutrophils (%) (Auto) 64.9 Lymphocytes (%) (Auto) 26.7 Monocytes (%) (Auto) 5.6 Eosinophils (%) (Auto) 2.2 Basophils (%) (Auto) 0.6 Neutrophils # (Auto) 4.7 Lymphocytes # (Auto) 2.0 Monocytes # (Auto) 0.4 Eosinophils # (Auto) 0.2 Basophils # (Auto) 0.0 CBC Comment AUTO DIFF Differential Comment AUTO DIFF CONFIRMED Platelet Estimate NORMAL Platelet Morphology Comment NORMAL Prothrombin Time 16.6 Prothromb Time International 1.5 Ratio Sodium Level 142 Potassium Level 4.8 Chloride Level 114 Carbon Dioxide Level 20.7 Anion Gap 7 Blood Urea Nitrogen 41 Creatinine 1.40 Estimat Glomerular Filtration 48 Rate Random Glucose 119 Calcium Level 9.0 Total Bilirubin 0.4 Aspartate Amino Transf 16 (AST/SGOT) Alanine Aminotransferase 16 (ALT/SGPT) Alkaline Phosphatase 130 Troponin I 0.02 B-Type Natriuretic Peptide 361 Total Protein 7.4 Albumin 3.2 Date/Time Procedure Status Source Growth 04/13/17 21:15 Urine Culture Received Urine Random Urine Pending Result Diagram: 04/14/17 0835 04/14/1735 Imaging Last Impressions Chest X-Ray 04/13/171924 Signed Impressions: Service Date/Time: Thursday, April 13, 2017 19:35 - CONCLUSION: Mild bilateral interstitial pulmonary opacity suggesting mild pulmonary edema. Raymundo Melvin MD Assessment and Plan Problem List: (1) Acute on chronic systolic (congestive) heart failure ICD Code: I50.23 Status: Acute Assessment and Plan 51-year-old female with Acute on chronic systolic CHF ACS ruled out per protocol with serial cardiac enzyme and EKGs Chest x-ray noted and review by me with finding of Mild bilateral interstitial pulmonary opacity suggesting mild pulmonary edema Status post Lasix IV 1, continue with diuresis with Aldactone and resume Bumex 1 mg by mouth twice a day Previous echo with EF of 45-50%, check 2-D echo Continue with beta carie and consider adding Imdur Diabetes type 2 Currently on low sliding scale as well as Levemir 50 twice a day and glipizide 10 mg twice a day History of atrial fibrillation Currently rate controlled on Coreg and Coumadin Monitor INR/PT Hypertension-labile BP Resume Procardia XL 60 daily, Coreg 25 mg twice a day Hyperlipidemia Stable on Lipitor Left lower extremity PAD Outpatient follow-up with vascular surgery on 04/16/17 for evaluation for possible angioplasty DVT prophylaxis: Coumadin Code Status Full code Discussed Condition With Patient Bruno Bey MD Apr 14, 2017 09:23
[2017-04-14] MEDS ORDERED: BUMETANIDE 1 MG TAB PO SCH (10:15)
[2017-04-14] MEDS ORDERED: WARFARIN SOD 5 MG TAB PO SCH (16:00)
--- NOTE | 2017-04-14 16:33 | EKG ---
Date Performed: 04/13/2017 Time Performed: 19:26:36 PTAGE: 51 years EKG: Sinus rhythm POSSIBLE LEFT ATRIAL ENLARGEMENT LOW QRS VOLTAGE IN EXTREMITY LEADS POSSIBLE ANTERIOR MYOCARDIAL INF ARCTION BORDERLINE ECG PREVIOUS TRACING : 01/19/2017 11.47 Since previous tracing, no significant change noted DOCTOR: Eunice Andrew Interpretating Date/Time 04/14/2017 16:33:36
--- NOTE | 2017-04-14 19:18 | ECHRPT ---
Indication: SHORTNESS OF BREATH CONCLUSIONS Normal left ventricular size. Wall thickness is normal. The left ventricular systolic function is mildly reduced with an estimated ejection fraction in the range of 40- 50%. There was limited left ventricular wall motion assessment due to poor endocardial visualization. The right ventricular size is normal. The left atrial size is mildly dilated. The right atrial size is mildly dilated. Trace mitral valve regurgitation. There is trace tricuspid valve regurgitation. BP: 115 / 54 HR: Rhythm: Sinus MEASUREMENTS (Male / Female) Normal Values Technical Quality:Technically difficult study 2D ECHO LV Diastolic Diameter PLAX 5.5 cm 4.2 - 5.9 / 3.9 - 5.3 cm LV Systolic Diameter PLAX 5.0 cm IVS Diastolic Thickness 0.9 cm 0.6 - 1.0 / 0.6 - 0.9 cm LVPW Diastolic Thickness 0.9 cm 0.6 - 1.0 / 0.6 - 0.9 cm LV Relative Wall Thickness 0.3 LVOT Diameter 2.1 cm Aortic Root Diameter 3.2 cm LA Systolic Diameter LX 3.0 cm 3.0 - 4.0 / 2.7 - 3.8 cm M-MODE AV Cusp Separation MM 1.8 cm DOPPLER AV Peak Velocity 141.0 cm/s AV Peak Gradient 8.0 mmHg AV Mean Gradient 4.0 mmHg AV Velocity Time Integral 28.0 cm LVOT Peak Velocity 49.3 cm/s LVOT Peak Gradient 1.0 mmHg LVOT Velocity Time Integral 11.4 cm AV Area Cont Eq vti 1.4 cm AV Area Cont Eq pk 1.2 cm Mitral E Point Velocity 119.0 cm/s Mitral A Point Velocity 71.3 cm/s Mitral E to A Ratio 1.7 LV E' Lateral Velocity 9.9 cm/s Mitral E to LV E' Lateral Ratio 12.0 LV E' Septal Velocity 6.3 cm/s Mitral E to LV E' Septal Ratio 18.8 PV Peak Velocity 44.3 cm/s PV Peak Gradient 0.8 mmHg FINDINGS LEFT VENTRICLE Normal left ventricular size. Wall thickness is normal. The left ventricular systolic function is mildly reduced with an estimated ejection fraction in the range of 40- 50%. There was limited left ventricular wall motion assessment due to poor endocardial visualization. Left ventricular diastolic function parameters are normal. RIGHT VENTRICLE The right ventricular size is normal. LEFT ATRIUM The left atrial size is mildly dilated. RIGHT ATRIUM The right atrial size is mildly dilated. ATRIAL SEPTUM The interatrial septum not well visualized. AORTA The aortic root and proximal ascending aorta are normal in size on limited imaging. MITRAL VALVE Structurally normal mitral valve. Trace mitral valve regurgitation. AORTIC VALVE The aortic valve is not well visualized. There is good movement seen. No aortic valve regurgitation. No aortic valve stenosis. TRICUSPID VALVE Structurally normal tricuspid valve. There is trace tricuspid valve regurgitation. PULMONARY VALVE The pulmonary valve is not well visualized. VESSELS The inferior vena cava (IVC) is normal in size. There is greater than 50% respiratory change in dimension of the inferior vena cava (normal). PERICARDIUM No pericardial effusion. Columba Rizvi MD, FACC (Electronically Signed) Final Date:14 April 2017 19:16
[2017-04-14] MEDS ORDERED: ATORVASTATIN 40 MG TAB PO SCH (21:00)
[2017-04-19] MEDS ORDERED: WARFARIN SOD 3 MG TAB PO SCH (16:00)
== END 2017-04-14 18:32 | disposition home or self-care (01) ==
LOC: PHED 19:16 → PHEDA 21:30 → PH3A 22:51
PROVIDERS: ADMIT Hospitalist; ATTEND Hospitalist
DX: I50.23 Acute on chronic systolic (congestive) heart failure (principal); I11.0 Hypertensive heart disease with heart failure; I48.91 Unspecified atrial fibrillation; E11.51 Type 2 diabetes mellitus with diabetic peripheral angiopathy without gangrene; I73.9 Peripheral vascular disease, unspecified; E78.5 Hyperlipidemia, unspecified; J44.9 Chronic obstructive pulmonary disease, unspecified; G47.30 Sleep apnea, unspecified; K21.9 Gastro-esophageal reflux disease without esophagitis; K58.9 Irritable bowel syndrome, unspecified; M10.9 Gout, unspecified; Z79.01 Long term (current) use of anticoagulants; Z79.84 Long term (current) use of oral hypoglycemic drugs
CPT/HCPCS: 71010; 80053; 81001; 82948; 83735; 83880; 84484; 85025; 85610; 85730; 87086; 93005; 93306; 96372; 96374; 96375; 99285; G0378; J1815; J1940; J2270; J2405

== ENCOUNTER 2017-07-13 16:42 | Inpatient (IN) | payer OTHER, MEDICARE ==
[~2017-07-13] VITALS: Ht 160 cm; Wt 113.7 kg
[~2017-07-13 16:42] MED LIST changes: +CHOL5000 PO; +CLON0.1T PO; +COUM3TAB PO; +GLIP10TA6 PO; +HYDR-3535 PO; -LEVO750T3 PO; -LISI-515 PO; +LOSA100T PO; -NIFE15TA PO; +NIFE60TA58 PO; -PERC10TA27 PO; -VITA10003 PO; +WARF-23 PO; -WARF-60 PO; -WARF4TAB52 PO
[2017-07-13 16:45] VITALS: BP 164/69; PULSE 64; RESP 14; TEMP 98.3; O2SAT 95
[2017-07-13] MEDS ORDERED: VANCOMYCIN INJ 1,000 MG in SODIUM CHLOR 0.9% 250 ML INJ 250 ML IV ONE (17:45)
--- NOTE | 2017-07-13 17:47 | PD ---
HPI Chief Complaint: Abnormal Results Time Seen by Provider: 17:13 Travel History International Travel<30 days: No Contact w/Intl Traveler<30days: No Traveled to known affect area: No History of Present Illness HPI This patient was sent here by her survey associate. She saw her survey associate 3 days ago and she recommended she be admitted for osteomyelitis of the left fifth toe. She's had ulceration there for 2 weeks. She complains of some discomfort there but also has sensory loss from diabetic neuropathy. She denies fever. Severity is moderate. Duration 2 weeks. No alleviating factors. No exacerbating factors PFSH Past Medical History Hx Anticoagulant Therapy: Yes Anemia: Yes Arthritis: Yes Asthma: No Atrial Fibrillation: Yes Autoimmune Disease: No Blood Disorders: No Anxiety: Yes Depression: No Heart Rhythm Problems: Yes (afib) Cancer: No Cardiovascular Problems: Yes High Cholesterol: No Chemotherapy: No Chest Pain: Yes Congestive Heart Failure: Yes COPD: Yes Cerebrovascular Accident: No Diabetes: Yes Patient Takes Glucophage: No Diminished Hearing: No Deep Vein Thrombosis: Yes (LEFT LEG) Endocrine: Yes Gastrointestinal Disorders: Yes (IBS) GERD: Yes Gout: Yes Genitourinary: Yes Headaches: Yes Hepatitis: No Hiatal Hernia: No Heparin Induced Thrombocytopen: No Hypertension: Yes Immune Disorder: No Implanted Vascular Access Dvce: No Kidney Stones: No Musculoskeletal: Yes Neurologic: No Psychiatric: Yes Reproductive: No Respiratory: Yes Integumentary: Yes Immunizations Current: Yes Migraines: No Myocardial Infarction: No Pneumonia: Yes Radiation Therapy: No Renal Failure: No Seizures: No Sickle Cell Disease: Yes (carries trait) Sleep Apnea: Yes Thyroid Disease: No Ulcer: Yes Tetanus Vaccination: < 5 Years Influenza Vaccination: Yes PNEUMOCCOCAL Vaccine (Year): 2 ?: Not Menopausal: Yes : 5 Para: 4 Miscarriage: 1 Tubal Ligation: Yes Past Surgical History Abdominal Surgery: No AICD: No Appendectomy: No Arteriovenous Shunt: No Cardiac Surgery: No Cholecystectomy: No Ear Surgery: No Endocrine Surgery: No Eye Surgery: No Genitourinary Surgery: No Gynecologic Surgery: Yes (tubal ligation) Insulin Pump: No Joint Replacement: No Neurologic Surgery: No Oral Surgery: Yes (tooth extraction) Pacemaker: No Thoracic Surgery: No Tonsillectomy: Yes Other Surgery: Yes (DEBRIDEMENT OF ABSCESS, STENT IN LT LEG, FASCIOTOMY LEFT LEG) Social History Alcohol Use: No Tobacco Use: No (QUIT 2014) Substance Use: No Allergies-Medications (Allergen,Severity, Reaction): Coded Allergies: Sulfa (Sulfonamide Antibiotics) (Unverified Allergy, Severe, HIVES, ) ibuprofen (Unverified Allergy, Severe, MESSES WITH KIDNEYS, 07/13/17) egg (Unverified Allergy, Intermediate, Very Upset Stomach, 07/13/17) milk (Unverified Allergy, Unknown, 07/13/17) *MDRO Multi-Drug Resistant Organism (Verified Adverse Reaction, Unknown, KPC, ESBL, MRSA, 07/13/17) MRSA (leg wound) - 11/2004, 01/2005 MRSA toe wound 12/21/14. 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 Reported Meds & Prescriptions Reported Meds & Active Scripts Active Aldactone (Spironolactone) 25 Mg Tab 25 Mg PO DAILY Coreg (Carvedilol) 12.5 Mg Tab 25 Mg PO BID Bumetanide 1 Mg Tab 1 Mg PO BID Lipitor (Atorvastatin Calcium) 40 Mg Tab 40 Mg PO HS Reported Xifaxan (Rifaximin) 550 Mg Tab 550 Mg PO Q8HR Plavix (Clopidogrel Bisulfate) 75 Mg Tab 75 Mg PO DAILY Percocet (Oxycodone-Acetaminophen) 10-325 mg Tab 1 Tab PO Q6H PRN Methocarbamol 750 Mg Tab 750 Mg PO TID Aspirin 81 Mg Chew 81 Mg CHEW DAILY Novolin R Inj (Insulin Human Regular) 1,000 Unit/10 Ml Vial 7 Units SQ TID NEB Coumadin (Warfarin) 3 Mg Tab 3 Mg PO FRI,SUN Warfarin 5 Mg Tab 5 Mg PO MON,,FRI,, Losartan (Losartan Potassium) 100 Mg Tab 100 Mg PO DAILY Vitamin D3 (Cholecalciferol) 5,000 Unit Cap 5,000 Units PO DAILY Clonidine (Clonidine HCl) 0.1 Mg Tab 0.1 Mg PO BID Glipizide 10 Mg Tab 10 Mg PO BIDAC Take 30 minutes before a meal Nifedipine ER 24 HR (Nifedipine) 60 Mg Tab 60 Mg PO DAILY Lantus Inj (Insulin Glargine) 1,000 Unit/10 Ml Vial 50 Units SQ BID Gabapentin 600 Mg Tab 800 Mg PO TID Review of Systems General / Constitutional: No: Fever Eyes: No: Visual changes HENT: No: Headaches Cardiovascular: No: Chest Pain or Discomfort Respiratory: No: Shortness of Breath Gastrointestinal: No: Abdominal Pain Genitourinary: No: Dysuria Musculoskeletal: Positive: Pain Skin: No Rash Neurologic: Positive: Sensory Disturbance, No: Weakness Psychiatric: No: Depression Endocrine: No: Polydipsia Hematologic/Lymphatic: No: Easy Bruising Physical Exam Narrative GENERAL: Well-nourished, well-developed patient in no apparent distress. SKIN: Focused skin assessment reveals no rash and nodules. Skin is Warm and dry. HEAD: Atraumatic. Normocephalic. EYES: Pupils equal and round. No scleral icterus. No injection or drainage. ENT: No nasal bleeding or discharge. Mucous membranes pink and moist. NECK: Trachea midline. No JVD. CARDIOVASCULAR: Regular rate and rhythm. No murmur appreciated. RESPIRATORY: No accessory muscle use. Clear to auscultation. Breath sounds equal bilaterally. GASTROINTESTINAL: Abdomen soft, non-tender, nondistended. Hepatic and splenic margins not palpable. MUSCULOSKELETAL: Surgical changes to the left lower extremity, old and well- healed. No clubbing. No cyanosis. No edema. Has had amputation of several toes. There is an ulceration on the lateral aspect of the left fifth toe, no active drainage NEUROLOGICAL: Awake and alert. No obvious cranial nerve deficits. Motor grossly within normal limits. Normal speech. PSYCHIATRIC: Appropriate mood and affect; insight and judgment normal. Data Data Last Documented VS Vital Signs Date Time Temp Pulse Resp B/P (MAP) Pulse Ox O2 Delivery O2 Flow Rate FiO2 07/13/17 17:32 Room Air 07/13/17 16:45 98.3 64 14 164/69 (100) 95 Orders Orders Iv Access Insert/Monitor (07/13/17 17:33) Complete Blood Count With Diff (07/13/17 17:33) Basic Metabolic Panel (Bmp) (07/13/17 17:33) Prothrombin Time / Inr (Pt) (07/13/17 17:33) Vancomycin Inj (Vancomycin Inj) (07/13/17 17:45) Toe (Min 2vws) (07/13/17 ) Oxycodone-Acetamin 5-325 Mg (Percocet (07/13/17 18:00) Ondansetron Inj (Zofran Inj) (07/13/17 19:15) Admit Order (Ed Use Only) (07/13/17 19:01) Labs Laboratory Tests Test 07/13/17 17:25 White Blood Count 8.9 TH/MM3 Red Blood Count 4.42 MIL/MM3 Hemoglobin 10.5 GM/DL Hematocrit 32.7 % Mean Corpuscular Volume 74.0 FL Mean Corpuscular Hemoglobin 23.7 PG Mean Corpuscular Hemoglobin Concent 32.1 % Red Cell Distribution Width 17.8 % Platelet Count 297 TH/MM3 Mean Platelet Volume 9.0 FL Neutrophils (%) (Auto) 57.2 % Lymphocytes (%) (Auto) 33.6 % Monocytes (%) (Auto) 6.7 % Eosinophils (%) (Auto) 1.9 % Basophils (%) (Auto) 0.6 % Neutrophils # (Auto) 5.1 TH/MM3 Lymphocytes # (Auto) 3.0 TH/MM3 Monocytes # (Auto) 0.6 TH/MM3 Eosinophils # (Auto) 0.2 TH/MM3 Basophils # (Auto) 0.1 TH/MM3 CBC Comment AUTO DIFF Prothrombin Time 27.4 SEC Prothromb Time International Ratio 2.4 RATIO Blood Urea Nitrogen 53 MG/DL Creatinine 1.60 MG/DL Random Glucose 142 MG/DL Calcium Level 8.8 MG/DL Sodium Level 139 MEQ/L Potassium Level 4.9 MEQ/L Chloride Level 112 MEQ/L Carbon Dioxide Level 18.8 MEQ/L Anion Gap 8 MEQ/L Estimat Glomerular Filtration Rate 41 ML/MIN MDM Medical Decision Making Medical Screen Exam Complete: Yes Emergency Medical Condition: Yes Medical Record Reviewed: Yes Differential Diagnosis Osteomyelitis, cellulitis, abscess Narrative Course I have reviewed the patient's electronic medical record. Patient was sent with podiatry recommendations for imaging and IV vancomycin and hospitalization with consultation to her Patient is very challenging IV access I placed a left external jugular IV CBC is normal Metabolic profile is noted, creatinine 1.6 INR on Coumadin is 2.4 I reviewed her left fifth toe x-rays including the radiologist's reading I gave her 1 g IV vancomycin and 2 pain pills Case reviewed in detail with hospitalist will admit for osteomyelitis and consult podiatry and give IV vancomycin and order MRI to further evaluate Coumadin will be held for possible surgical intervention in the near future Diagnosis Primary Impression: Osteomyelitis of toe of left foot Additional Impressions: A-fib Qualified Codes: I48.2 - Chronic atrial fibrillation Ulcer of toe of left foot Qualified Codes: L97.529 - Non-pressure chronic ulcer of other part of left foot with unspecified severity Admitting Information Admitting Physician Requests: Willis Maya MD Jul 13, 2017 17:47
[2017-07-13] MEDS ORDERED: oxyCODONE/ACETAMINOPHEN 5 MG/325 MG TAB PO ONE (18:00)
--- NOTE | 2017-07-13 18:16 | RADRPT ---
EXAM DATE/TIME: 07/13/2017 17:44 [facility] COMPARISON: No previous studies available for comparison. INDICATIONS : Left fifth digit ulceration MEDICAL HISTORY : Chronic obstructive pulmonary disease. Congestive heart failure. Hypertension. SURGICAL HISTORY : None. ENCOUNTER: Initial ACUITY: 1 day PAIN SCORE: 7/10 LOCATION: Left foot FINDINGS: 3 views of the left foot fifth digit demonstrate amputation of the first and second digits with only a known amount of proximal aspect of the first digit proximal phalanx remaining. There has been amput ation of the middle and distal phalanx of the third digit. A 4 mm linear density is located adjacent to the middle phalanx of the fifth digit, suspicious for a fracture. No erosion is appreciated. There is no periosteal reaction is seen. There is partial absence of the epiphysis of the fifth digit prox imal phalanx. The Lisfranc joint appears intact. There is diffuse left foot soft tissue swelling. No radiopaque foreign body is seen. CONCLUSION: 1. There is a 4 mm linear density adjacent to the middle phalanx of the fifth digit suspicious for a fracture. No definite erosion is identified to indicate osteomyelitis but the distal epiphysis of the proximal phalanx is absent. 2. Diffuse left foot soft tissue swelling with findings indicating prior amputation of the first thro ugh third digits. Isaak Day MD on July 13, 2017 at 18:10 Board Certified Radiologist. This report was verified electronically.
[2017-07-13 18:29] LABS: AUTOMATED NEUTROPHIL # 5.1 TH/MM3 (1.8-7.7); BASOPHIL # 0.1 TH/MM3 (0-0.2); BASOPHIL % 0.6 % (0.0-2.0); EOSINOPHIL # 0.2 TH/MM3 (0-0.4); EOSINOPHIL % 1.9 % (0.0-4.0); HEMATOCRIT 32.7 % (35.0-46.0); LYMPH % 33.6 % (9.0-44.0); MEAN CORPUSCULAR HEMOGLOBIN 23.7 PG (27.0-34.0); MEAN CORPUSCULAR HGB CONC 32.1 % (32.0-36.0); MONO % 6.7 % (0.0-8.0); NEUT % 57.2 % (16.0-70.0); PLATELET COUNT 297 TH/MM3 (150-450); RED BLOOD COUNT 4.42 MIL/MM3 (4.00-5.30); RED CELL DISTRIBUTION WIDTH 17.8 % (11.6-17.2); WHITE BLOOD COUNT 8.9 TH/MM3 (4.0-11.0)
[2017-07-13 18:36] LABS: HEMO FLAGS AUTO DIFF
[2017-07-13 18:38] LABS: BICARBONATE 18.8 MEQ/L (21.0-32.0); POTASSIUM 4.9 MEQ/L (3.5-5.1)
[2017-07-13 18:41] LABS: INTERNATIONAL NORMALIZED RATIO 2.4 RATIO; PROTHROMBIN TIME - PATIENT 27.4 SEC (9.8-11.6)
[2017-07-13] MEDS ORDERED: XIFA550T4 PO (18:59)
[2017-07-13] MEDS ORDERED: ASPI-516 CHEW (18:59)
[2017-07-13] MEDS ORDERED: METH750T PO (18:59)
[2017-07-13] MEDS ORDERED: PLAV75TA29 PO (18:59)
[2017-07-13] MEDS ORDERED: PERC10TA27 PO (18:59)
[2017-07-13] MEDS ORDERED: NOVORP2 SQ (18:59)
[2017-07-13] MEDS ORDERED: ONDANSETRON HCL 4 MG/2 ML VIAL IV ONE (19:15)
[2017-07-13 19:36] LABS: PLATELET ESTIMATE SMEAR NORMAL (NORMAL); PLATELET MORPHOLOGY NORMAL (NORMAL); SCAN/DIFF AUTO DIFF CONFIRMED
[2017-07-13 19:38] LABS: STOMATOCYTES 1+ (NORMAL)
--- NOTE | 2017-07-13 19:51 | HHI.HP ---
[facility] Juan Buenrostro M.D. Admission Diagnosis L fifth toe osteomyelitis Diagnoses: Travel History International Travel<30 Days: No Contact w/Intl Traveler <30 Da: No Traveled to Known Affected Are: No History of Present Illness 52-year-old female with past medical history significant for A. fib on Coumadin , chronic kidney disease, insulin-dependent diabetes mellitus, CHF, and hypertension presents to the emergency department at the instruction of her embedded processor. The patient was seen in clinic on where a wound culture of the left fifth toe was taken. The area is ulcerated however nondraining and has been present for approximately 2 weeks. The patient was told by her embedded processor to come to the ER on Friday for admission for IV antibiotics and possible surgery. Per ED records, the wound culture was sensitive to vancomycin. Review of Systems Denies fever or chills Denies blurry vision, otorrhea, rhinorrhea Denies sore throat and cough No chest pain, palpitations, shortness of breath No abdominal pain Denies constipation/diarrhea/nausea. Positive vomiting Denies muscle pain/weakness No rashes Past Family Social History Past Medical History Chronic kidney disease Diabetes mellitus (insulin-dependent) CHF Hypertension Hyperlipidemia Peripheral vascular disease GERD IBS A. fib anticoagulated on Coumadin Past Surgical History Stent placement left leg I&D left leg Tonsillectomy Status post amputation of 2.5 toes on the left foot Reported Medications Reported Meds & Active Scripts Active Aldactone (Spironolactone) 25 Mg Tab 25 Mg PO DAILY Coreg (Carvedilol) 12.5 Mg Tab 25 Mg PO BID Bumetanide 1 Mg Tab 1 Mg PO BID Lipitor (Atorvastatin Calcium) 40 Mg Tab 40 Mg PO HS Reported Xifaxan (Rifaximin) 550 Mg Tab 550 Mg PO Q8HR Plavix (Clopidogrel Bisulfate) 75 Mg Tab 75 Mg PO DAILY Percocet (Oxycodone-Acetaminophen) 10-325 mg Tab 1 Tab PO Q6H PRN Methocarbamol 750 Mg Tab 750 Mg PO TID Aspirin 81 Mg Chew 81 Mg CHEW DAILY Novolin R Inj (Insulin Human Regular) 1,000 Unit/10 Ml Vial 7 Units SQ TID NEB Coumadin (Warfarin) 3 Mg Tab 3 Mg PO SAT,SUN Warfarin 5 Mg Tab 5 Mg PO FRI,,FRI,, Losartan (Losartan Potassium) 100 Mg Tab 100 Mg PO DAILY Vitamin D3 (Cholecalciferol) 5,000 Unit Cap 5,000 Units PO DAILY Clonidine (Clonidine HCl) 0.1 Mg Tab 0.1 Mg PO BID Glipizide 10 Mg Tab 10 Mg PO BIDAC Take 30 minutes before a meal Nifedipine ER 24 HR (Nifedipine) 60 Mg Tab 60 Mg PO DAILY Lantus Inj (Insulin Glargine) 1,000 Unit/10 Ml Vial 50 Units SQ BID Gabapentin 600 Mg Tab 800 Mg PO TID Allergies: Coded Allergies: Sulfa (Sulfonamide Antibiotics) (Unverified Allergy, Severe, HIVES, ) ibuprofen (Unverified Allergy, Severe, MESSES WITH KIDNEYS, 07/13/17) egg (Unverified Allergy, Intermediate, Very Upset Stomach, 07/13/17) milk (Unverified Allergy, Unknown, 07/13/17) *MDRO Multi-Drug Resistant Organism (Verified Adverse Reaction, Unknown, KPC, ESBL, MRSA, 07/13/17) MRSA (leg wound) - 11/2004, 01/2005 MRSA toe wound 12/21/14. 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 Family History Mother with diabetes and coronary artery disease. Father with coronary artery disease. Social History Quit smoking in 2014, smoked 1-1/2 packs per day 20 years prior to that. Denies alcohol and illicit drugs. Physical Exam Vital Signs Vital Signs Date Time Temp Pulse Resp B/P (MAP) Pulse Ox O2 Delivery O2 Flow Rate FiO2 07/13/17 17:32 Room Air 07/13/17 16:45 98.3 64 14 164/69 (100) 95 Physical Exam GENERAL: Obese female sitting up in bed SKIN: No rashes, ecchymoses or lesions. Cool and dry. Area of ulceration that is approximately 2 x 3 cm on the lateral aspect of the fifth digit of the left foot. HEAD: Atraumatic. Normocephalic. No temporal or scalp tenderness. EYES: Pupils equal round and reactive. Extraocular motions intact. No scleral icterus. No injection or drainage. ENT: Nose without bleeding, purulent drainage or septal hematoma. Throat without erythema, tonsillar hypertrophy or exudate. Uvula midline. Airway patent. NECK: Trachea midline. No JVD or lymphadenopathy. Supple, nontender, no meningeal signs. CARDIOVASCULAR: Regular rate and rhythm without murmurs, gallops, or rubs. RESPIRATORY: Clear to auscultation. Breath sounds equal bilaterally. No wheezes , rales, or rhonchi. GASTROINTESTINAL: Abdomen soft, non-tender, nondistended. No hepato-splenomegaly , or palpable masses. No guarding. MUSCULOSKELETAL: Extremities without clubbing, cyanosis, or edema. No joint tenderness, effusion, or edema noted. NEUROLOGICAL: Awake and alert. Cranial nerves II through XII intact. Motor and sensory grossly within normal limits. Normal speech. Laboratory Laboratory Tests Test 07/13/17 17:25 White Blood Count 8.9 Red Blood Count 4.42 Hemoglobin 10.5 Hematocrit 32.7 Mean Corpuscular Volume 74.0 Mean Corpuscular Hemoglobin 23.7 Mean Corpuscular Hemoglobin Concent 32.1 Red Cell Distribution Width 17.8 Platelet Count 297 Mean Platelet Volume 9.0 Neutrophils (%) (Auto) 57.2 Lymphocytes (%) (Auto) 33.6 Monocytes (%) (Auto) 6.7 Eosinophils (%) (Auto) 1.9 Basophils (%) (Auto) 0.6 Neutrophils # (Auto) 5.1 Lymphocytes # (Auto) 3.0 Monocytes # (Auto) 0.6 Eosinophils # (Auto) 0.2 Basophils # (Auto) 0.1 CBC Comment AUTO DIFF Prothrombin Time 27.4 Prothromb Time International Ratio 2.4 Blood Urea Nitrogen 53 Creatinine 1.60 Random Glucose 142 Calcium Level 8.8 Sodium Level 139 Potassium Level 4.9 Chloride Level 112 Carbon Dioxide Level 18.8 Anion Gap 8 Estimat Glomerular Filtration Rate 41 Result Diagram: 07/13/17172407/13/171724 Caprini VTE Risk Assessment Caprini VTE Risk Assessment: Mod/High Risk (score >= 2) Caprini Risk Assessment Model Point Value = 1 Point Value = 2 Point Value = 3 Point Value = 5 Age 41-60 Minor surgery BMI > 25 kg/m2 Swollen legs Varicose veins or History of unexplained or recurrent spontaneous Oral contraceptives or hormone replacement Sepsis (< 1 month) Serious lung disease, including pneumonia (< 1 month) Abnormal pulmonary function Acute myocardial infarction Congestive heart failure (< 1 month) History of inflammatory bowel disease Medical patient at bed rest Age 61-74 Arthroscopic surgery Major open surgery (> 45 min) Laparoscopic surgery (> 45 min) Malignancy Confined to bed (> 72 hours) Immobilizing plaster cast Central venous access Age >= 75 History of VTE Family history of VTE Factor V Leiden Prothrombin [id number] Lupus anticoagulant Anticardiolipin antibodies Elevated serum homocysteine Heparin-induced thrombocytopenia Other congenital or acquired thrombophilia Stroke (< 1 month) Elective arthroplasty Hip, pelvis, or leg fracture Acute spinal cord injury (< 1 month) Prophylaxis Regimen Total Risk Factor Score Risk Level Prophylaxis Regimen 0-1 Low Early ambulation 2 Moderate Order ONE of the following: *Sequential Compression Device (SCD) *Heparin 5000 units SQ BID 3-4 Higher Order ONE of the following medications: *Heparin 5000 units SQ TID *Enoxaparin/Lovenox 40 mg SQ daily (WT < 150 kg, CrCl > 30 mL/min) *Enoxaparin/Lovenox 30 mg SQ daily (WT < 150 kg, CrCl > 10-29 mL/min) *Enoxaparin/Lovenox 30 mg SQ BID (WT < 150 kg, CrCl > 30 mL/min) AND/OR *Sequential Compression Device (SCD) 5 or more Highest Order ONE of the following medications: *Heparin 5000 units SQ TID (Preferred with Epidurals) *Enoxaparin/Lovenox 40 mg SQ daily (WT < 150 kg, CrCl > 30 mL/min) *Enoxaparin/Lovenox 30 mg SQ daily (WT < 150 kg, CrCl > 10-29 mL/min) *Enoxaparin/Lovenox 30 mg SQ BID (WT < 150 kg, CrCl > 30 mL/min) AND *Sequential Compression Device (SCD) Assessment and Plan Assessment and Plan 52-year-old female with a past medical history of CAD, DM, CHF, hypertension, hyperlipidemia, and peripheral vascular disease presents with concern for osteomyelitis of the left fifth toe. 1. Osteomyelitis Left fifth toe with area of ulceration Cultured in embedded processor office on , sensitive to vancomycin IV vancomycin Consult patient's embedded processor, Dr. Gambino Blood cultures, ESR, MRI of the foot pending Nothing by mouth after midnight 2. A. fib Patient anticoagulated on Coumadin, holding at this time in anticipation of possible surgery 3. Insulin-dependent diabetes mellitus Patient's home insulin regimen 50 of Lantus twice a day with Novolin TIDAC Decrease insulin to 25 units Levemir twice a day with SSI Holding home glipizide 4. Chronic kidney disease Creatinine today 1.6, patient's baseline Monitor 5. CHF Gentle IV fluid hydration, monitor for signs of volume overload Continue home medications 6. Hypertension Continue home medications Monitor FEN NS at 75 cc/hr Electrolytes: monitor and replete prn Holding pharmacologic anticoagulation in anticipation of possible procedure Consult PT Consult Case Management Physician Certification 2 Midnight Certification Type: Admission for Inpatient Services Order for Inpatient Services The services are ordered in accordance with Medicare regulations or non- Medicare payer requirements, as applicable. In the case of services not specified as inpatient-only, they are appropriately provided as inpatient services in accordance with the 2-midnight benchmark. Estimated LOS (days): 2 2 days is the estimated time the patient will need to remain in the hospital, assuming treatment plan goals are met and no additional complications. Post-Hospital Plan: Not yet determined Allison Lindo MD Jul 13, 2017 19:51
[2017-07-13] MEDS ORDERED: SODIUM CHLOR 0.9% 1000 ML INJ 1,000 ML IV SCH (20:00)
[2017-07-13] MEDS ORDERED: ACETAMINOPHEN 325 MG TAB PO PRN (20:00)
[2017-07-13] MEDS ORDERED: GLUCAGON 1 MG/ML VIAL OTHER PRN (20:00)
[2017-07-13] MEDS ORDERED: DEXTROSE 50% IN WATER 50 ML VIAL(D50) IV PUSH PRN (20:00)
[2017-07-13] MEDS ORDERED: MAGNESIUM HYDROXIDE SUSP 30 ML CUP PO PRN (20:00)
[2017-07-13] MEDS ORDERED: LACTULOSE SYRUP 20 GM/30 ML CUP PO PRN (20:00)
[2017-07-13] MEDS ORDERED: BISACODYL 10 MG SUPP RECTAL PRN (20:00)
[2017-07-13] MEDS ORDERED: SENNOSIDES 8.6 MG TAB PO PRN (20:00)
[2017-07-13] MEDS ORDERED: NALOXONE HCL 0.4 MG/ML AMP IV PUSH PRN (20:30)
[2017-07-13] MEDS ORDERED: GADOBENATE DIM PF 529 MG/ML 20ML VIAL (for RAD MRI) IV ONE (20:30)
[2017-07-13] MEDS ORDERED: PILL SPLITTER OTHER PRN (20:30)
[2017-07-13] MEDS ORDERED: Vancomycin Consult Pharmacy 1 EA OTHER SCH (20:45)
[2017-07-13] MEDS: DOCUSATE SODIUM 50 MG/SENNA 8.6 MG TAB PO SCH (21:00)
[2017-07-13] MEDS: INSULIN ASPART SUPPLEMENTAL SCALE SQ SCH (21:00)
--- NOTE | 2017-07-13 21:10 | RADRPT ---
EXAM DATE/TIME: 07/13/2017 20:07 [facility] COMPARISON: TOE LEFT 5TH DIGIT (MIN 2VWS), July 13, 2017, 17:44. MRI FOOT LEFT W & W/O CONTRAST, February 01 15, 16:16. INDICATIONS : Osteomyelitis. Infected 5th digit. CONTRAST: 20 cc Multihance (gadobenate) IV MEDICAL HISTORY : Diabetes mellitus type 2. Hypertension. Congestive heart failure. Renal insufficiency. SURGICAL HISTORY : Tonsillectomy. 1st,2nd,3rd digits removed from left foot. ENCOUNTER: Initial ACUITY: 1 day PAIN SCORE: 4/10 LOCATION: Left foot TECHNIQUE: Multiplanar, multisequence MRI examination was performed without contrast and after the intravenous a dministration of gadolinium. FINDINGS: There is abnormal increased T2 signal within the proximal and distal phalanges of the fifth digit. De creased T1 signal is present within the distal phalanx and likely the distal aspect of the proximal p halanx by the proximal aspect of the proximal fifth phalanx demonstrates normal T1 signal. I cannot d etermine with confidence these bones are enhancing but given the resolution of the pre-and postcontra st enhanced imaging sequences. The remaining bones of the left foot demonstrate normal signal intensity. There has been a prior firs t and second digit dictation and indentation of the middle and distal phalanx of the third digit. The re is also mild edema within the mid calcaneus and talus. Diffuse subcutaneous edema is present parti cularly dorsally. CONCLUSION: 1. Clear abnormal edema within the proximal and distal phalanges of the fifth digit with partial abno rmal T1 signal as well, as above. However, I cannot identify with confidence if there is enhancement. Findings are very suspicious for osteomyelitis in the distal phalanx. 2. Severe subcutaneous edema. 3. There is abnormal edema within the talus and calcaneus of uncertain etiology but potentially degen erative in nature. Isaak Day MD on July 13, 2017 at 21:03 Board Certified Radiologist. This report was verified electronically.
[2017-07-13] MEDS: CARVEDILOL 12.5 MG TAB PO SCH (21:24)
[2017-07-13] MEDS: ATORVASTATIN 40 MG TAB PO SCH (21:24)
[2017-07-13] MEDS: RIFAXIMIN 550 MG TAB PO SCH (21:25)
[2017-07-13] MEDS: cloNIDine HCL 0.1 MG TAB PO SCH (21:25)
[2017-07-13] MEDS: BUMETANIDE 1 MG TAB PO SCH (21:25)
[2017-07-13] MEDS: SODIUM CHLORIDE 0.9% FLUSH 10 ML FLUSH IV FLUSH SCH (21:26)
[2017-07-13] MEDS: INSULIN DETEMIR 100 UNITS/ML VIAL SQ SCH (21:29)
[2017-07-13 21:30] VITALS: BP 135/65; PULSE 57; RESP 20; TEMP 98.4; O2SAT 97
[2017-07-13] MEDS ORDERED: VANCOMYCIN 500 MG/NS 100 ML IV ONE ×2 (22:00)
[2017-07-14] VITALS: BP 147/66; PULSE 54; RESP 20; TEMP 97.9; O2SAT 94
[2017-07-14] MEDS: oxyCODONE/ACETAMINOPHEN 5 MG/325 MG TAB PO PRN ×3 (00:01→21:00)
[2017-07-14] MEDS ORDERED: ONDANSETRON HCL 4 MG/2 ML VIAL IVP PRN (01:00)
[2017-07-14 04:00] VITALS: BP 133/58; PULSE 52; RESP 20; TEMP 97.8; O2SAT 95
[2017-07-14] MEDS: RIFAXIMIN 550 MG TAB PO SCH ×3 (05:10→20:59)
[2017-07-14] MEDS ORDERED: VANCOMYCIN INJ 1,000 MG in SODIUM CHLOR 0.9% 250 ML INJ 250 ML IV SCH (06:00)
[2017-07-14] MEDS: INSULIN ASPART SUPPLEMENTAL SCALE SQ SCH ×4 (08:00→21:00)
[2017-07-14 09:00] VITALS: BP 175/55; PULSE 55; RESP 16; TEMP 98.1; O2SAT 97
[2017-07-14] MEDS: DOCUSATE SODIUM 50 MG/SENNA 8.6 MG TAB PO SCH ×2 (09:00→21:00)
[2017-07-14] MEDS: INSULIN DETEMIR 100 UNITS/ML VIAL SQ SCH (09:03)
[2017-07-14] MEDS: NIFEdipine 60 MG SUSTAINED RELEASE TAB PO SCH (09:03)
[2017-07-14] MEDS: BUMETANIDE 1 MG TAB PO SCH ×2 (09:04→20:59)
[2017-07-14] MEDS: METHOCARBAMOL 500 MG TAB PO SCH ×3 (09:04→18:00)
[2017-07-14] MEDS: CARVEDILOL 12.5 MG TAB PO SCH ×2 (09:04→20:59)
[2017-07-14] MEDS: cloNIDine HCL 0.1 MG TAB PO SCH ×2 (09:05→20:59)
[2017-07-14] MEDS: GABAPENTIN 400 MG CAP PO SCH ×2 (09:05→20:59)
[2017-07-14] MEDS: SPIRONOLACTONE 25 MG TAB PO SCH (09:05)
[2017-07-14] MEDS: LOSARTAN 50 MG TAB PO SCH (09:05)
[2017-07-14 09:26] LABS: AUTOMATED NEUTROPHIL # 3.9 TH/MM3 (1.8-7.7); BASOPHIL % 0.6 % (0.0-2.0); EOSINOPHIL # 0.2 TH/MM3 (0-0.4); EOSINOPHIL % 3.5 % (0.0-4.0); HEMO FLAGS DIFF FINAL; LYMPH % 32.6 % (9.0-44.0); LYMPHOCYTE # 2.2 TH/MM3 (1.0-4.8); MEAN CELL VOLUME 73.7 FL (80.0-100.0); MEAN CORPUSCULAR HEMOGLOBIN 23.1 PG (27.0-34.0); MEAN CORPUSCULAR HGB CONC 31.3 % (32.0-36.0); MONO % 6.2 % (0.0-8.0); NEUT % 57.1 % (16.0-70.0); PLATELET COUNT 306 TH/MM3 (150-450); RED BLOOD COUNT 4.62 MIL/MM3 (4.00-5.30); RED CELL DISTRIBUTION WIDTH 18.3 % (11.6-17.2); WHITE BLOOD COUNT 6.7 TH/MM3 (4.0-11.0)
[2017-07-14 09:34] LABS: INTERNATIONAL NORMALIZED RATIO 2.1 RATIO; PROTHROMBIN TIME - PATIENT 23.5 SEC (9.8-11.6)
[2017-07-14 09:48] LABS: BICARBONATE 20.9 MEQ/L (21.0-32.0); POTASSIUM 5.2 MEQ/L (3.5-5.1)
--- NOTE | 2017-07-14 10:11 | HHI.PR ---
Subjective Remarks awake and alert complains of pain foot- specially fifth toe as OP on Lortab 10 but not helping now rth toe open wound but dry- patient states it was draining pus till friday going to OR this pm Objective Vitals Vital Signs Date Time Temp Pulse Resp B/P (MAP) Pulse Ox O2 Delivery O2 Flow Rate FiO2 07/14/17 09:00 98.1 55 16 175/55 (95) 97 07/14/17 04:00 97.8 52 20 133/58 (83) 95 07/14/17 04:00 Room Air 07/14/17 00:00 97.9 54 20 147/66 (93) 94 07/14/17 00:00 Room Air 07/13/17 21:57 07/13/17 21:30 98.4 57 20 135/65 (88) 97 07/13/17 21:00 Room Air 07/13/17 17:32 Room Air 07/13/17 16:45 98.3 64 14 164/69 (100) 95 I/O 07/13/17 07/13/17 07/13/17 07/14/17 07/14/17 07/14/17 07:00 15:00 23:00 07:00 15:00 23:00 Intake Total 250 ml 498 ml Output Total 240 ml Balance 250 ml 258 ml Intake Oral 220 ml IV Total 250 ml 278 ml Output Urine Total 240 ml # Bowel Movements 1 Result Diagram: 07/14/17 0826 07/14/17 0816 Imaging Last Impressions Toe X-Ray 07/13/17 0000 Signed Impressions: Service Date/Time: Thursday, July 13, 2017 17:44 - CONCLUSION: 1. There is a 4 mm linear density adjacent to the middle phalanx of the fifth digit suspicious for a fracture. No definite erosion is identified to indicate osteomyelitis but the distal epiphysis of the proximal phalanx is absent. 2. Diffuse left foot soft tissue swelling with findings indicating prior amputation of the first through third digits. Isaak Day MD Foot MRI 07/13/17 0000 Signed Impressions: Service Date/Time: Thursday, July 13, 2017 20:07 - CONCLUSION: 1. Clear abnormal edema within the proximal and distal phalanges of the fifth digit with partial abnormal T1 signal as well, as above. However, I cannot identify with confidence if there is enhancement. Findings are very suspicious for osteomyelitis in the distal phalanx. 2. Severe subcutaneous edema. 3. There is abnormal edema within the talus and calcaneus of uncertain etiology but potentially degenerative in nature. Isaak Day MD Objective Remarks awake and alert, oriented x 3 anicteric'lungs- no rales or wheezes regular rhythm abdomen- soft, + bowel sounds nontender LE = + edema left foot- amputation of some toes- transmetatarsal, 5th toe- with horiziontal linear open wound- dry- edges clean right LE- + edema mvoes all extremities spontaneously A/P Assessment and Plan 52-year-old female with a past medical history of CAD, DM, CHF, hypertension, hyperlipidemia, and peripheral vascular disease presents with concern for osteomyelitis of the left fifth toe. 1. Osteomyelitis Left fifth toe with area of ulceration Podiatry taking her to OR today- amputation ID consult Blood cultures, ESR, MRI of the foot - suggestive of OM Infectious disease consult po pain meds- not helping- start on IV Dilaudid prn for pain 2. A. fib- rate controlled Patient anticoagulated on Coumadin, holding at this time - for surgery this pm 3. Insulin-dependent diabetes mellitus Patient's home insulin regimen 50 of Lantus twice a day with Novolin TIDAC Decrease insulin to 25 units Levemir twice a day with SSI Holding home glipizide 4. Chronic kidney disease Mild hyperkalemia Creatinine today 1.6, patient's baseline Monitor received bumex this am and on bid on aldactone- will monitor 5. CHF Gentle IV fluid hydration, monitor for signs of volume overload Continue home medications 6. Hypertension Continue home medications Monitor Consult PT- post procedure Consult Case Management Martha Jimenes MD Jul 14, 2017 10:11
[2017-07-14] MEDS: HYDROmorphone HCL PF 1 MG/ML VIAL IV PUSH PRN ×3 (11:59→23:54)
[2017-07-14] MEDS: SODIUM CHLORIDE 0.9% FLUSH 10 ML FLUSH IV FLUSH SCH ×2 (11:59→20:58)
[2017-07-14 12:00] VITALS: BP 144/67; PULSE 53; RESP 18; TEMP 97.5; O2SAT 97
[2017-07-14] MEDS ORDERED: LIDOCAINE HCL 1% PF 5 ML AMPULE OTHER ONE (12:00)
[2017-07-14] MEDS ORDERED: ePHEDrine/NS 25 MG/5 ML SYR IV ONE (12:00)
[2017-07-14] MEDS ORDERED: ONDANSETRON HCL 4 MG/2 ML VIAL IV PUSH ONE (12:00)
[2017-07-14] MEDS ORDERED: PROPOFOL 200 MG/20 ML AMP IV ONE (12:00)
[2017-07-14] MEDS: DEXT 5%-NACL 0.9% 1000 ML INJ 1,000 ML IV SCH ×2 (12:04→20:58)
--- NOTE | 2017-07-14 14:44 | PD.CONS ---
History of Present Illness Service Infectious disease Consult Requested By Dr Alexey Jimenes Reason for Consult Evaluate patient with osteomyelitis of the F 15 Primary Care Physician Juan Buenrostro M.D. Diagnoses: History of Present Illness Patient seen and examined. Records reviewed. Patient is a 52-year-old female, presented to the hospital at the instruction of her spare person, for further evaluation and treatment of her left fifth toe wound. Patient apparently developed a wound on her left fifth toe about 2 weeks ago from rubbing on her shoe. She goes to a spare person on a regular basis , and she started seeing the spare person for her fifth toe. Stated that it started having some drainage with an odor, and it was hurting. He denies any fever or chills or sweats. She went for follow-up on the day of admission, and the patient was instructed to go to the hospital for IV antibiotics and possible surgery. She is afebrile. Her WBC is normal. Sedimentation rate is 76. Patient is scheduled to have surgery today by the spare person. She denies any respiratory complaint. She has not had any nausea or vomiting, diarrhea or any urinary complaints. Infectious disease consultation has been requested to evaluate the patient. Review of Systems Constitutional: DENIES: Fever, Chills, Night Sweats Eyes: DENIES: Eye pain Ears, nose, mouth, throat: DENIES: Nasal discharge, Oral lesions, Throat pain, Ear Pain, Sinus Pain Respiratory: DENIES: Cough, Shortness of breath Cardiovascular: DENIES: Chest pain, Palpitations, Syncope, Dyspnea on Exertion Gastrointestinal: DENIES: Abdominal pain, Constipation, Diarrhea, Nausea, Vomiting, Difficulty Swallowing Genitourinary: DENIES: Urinary frequency, Urgency, Hematuria, Dysuria Musculoskeletal: DENIES: Joint pain, Joint Swelling Integumentary: DENIES: Rash Immunologic/allergic: DENIES: Urticaria Neurologic: DENIES: Headache, Localized weakness Psychiatric: DENIES: Hallucinations Past Family Social History Allergies: Coded Allergies: Sulfa (Sulfonamide Antibiotics) (Unverified Allergy, Severe, HIVES, ) ibuprofen (Unverified Allergy, Severe, MESSES WITH KIDNEYS, 07/13/17) egg (Unverified Allergy, Intermediate, Very Upset Stomach, 07/13/17) milk (Unverified Allergy, Unknown, 07/13/17) *MDRO Multi-Drug Resistant Organism (Verified Adverse Reaction, Unknown, KPC, ESBL, MRSA, 07/13/17) MRSA (leg wound) - 11/2004, 01/2005 MRSA toe wound 12/21/14. 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 Past Medical History Chronic kidney disease Diabetes mellitus (insulin-dependent) CHF Hypertension Hyperlipidemia Peripheral vascular disease GERD IBS A. fib anticoagulated on Coumadin Obesity Past Surgical History Stent placement left leg I&D left leg, had doubled the debridement and fasciotomy Tonsillectomy Status post amputation of 2.5 toes on the left foot Reported Medications I attest that I obtained, updated or reviewed the home and current medications. Reported Meds & Active Scripts Active Aldactone (Spironolactone) 25 Mg Tab 25 Mg PO DAILY Coreg (Carvedilol) 12.5 Mg Tab 25 Mg PO BID Bumetanide 1 Mg Tab 1 Mg PO BID Lipitor (Atorvastatin Calcium) 40 Mg Tab 40 Mg PO HS Reported Xifaxan (Rifaximin) 550 Mg Tab 550 Mg PO Q8HR Plavix (Clopidogrel Bisulfate) 75 Mg Tab 75 Mg PO DAILY Percocet (Oxycodone-Acetaminophen) 10-325 mg Tab 1 Tab PO Q6H PRN Methocarbamol 750 Mg Tab 750 Mg PO TID Aspirin 81 Mg Chew 81 Mg CHEW DAILY Novolin R Inj (Insulin Human Regular) 1,000 Unit/10 Ml Vial 7 Units SQ TID NEB Coumadin (Warfarin) 3 Mg Tab 3 Mg PO SAT,SUN Warfarin 5 Mg Tab 5 Mg PO MON,,FRI,, Losartan (Losartan Potassium) 100 Mg Tab 100 Mg PO DAILY Vitamin D3 (Cholecalciferol) 5,000 Unit Cap 5,000 Units PO DAILY Clonidine (Clonidine HCl) 0.1 Mg Tab 0.1 Mg PO BID Glipizide 10 Mg Tab 10 Mg PO BIDAC Take 30 minutes before a meal Nifedipine ER 24 HR (Nifedipine) 60 Mg Tab 60 Mg PO DAILY Lantus Inj (Insulin Glargine) 1,000 Unit/10 Ml Vial 50 Units SQ BID Gabapentin 600 Mg Tab 800 Mg PO TID Active Ordered Medications Current Medications Medications (Trade) Dose Ordered Sig/Juliane Route Start Time Stop Time Status Last Admin (NS Flush) 2 ml UNSCH PRN IV FLUSH 07/13/17 20:00 (NS Flush) 2 ml BID IV FLUSH 07/13/17 21:00 07/14/17 11:59 (Tylenol) 650 mg Q4H PRN PO 07/13/17 20:00 (Zofran Inj) 4 mg Q6H PRN IVP 07/14/17 01:00 (Narcan Inj) 0.4 mg UNSCH PRN IV PUSH 07/13/17 20:30 (Katelynn-Colace) 1 tab BID PO 07/13/17 21:00 (Milk Of Magnesia Liq) 30 ml Q12H PRN PO 07/13/17 20:00 (Senokot) 17.2 mg Q12H PRN PO 07/13/17 20:00 (Dulcolax Supp) 10 mg DAILY PRN RECTAL 07/13/17 20:00 (Lactulose Liq) 30 ml DAILY PRN PO 07/13/17 20:00 Pharmacy Profile Note 0 ml @ 0 mls/hr UNSCH OTHER 07/13/17 20:45 (Percocet 5-325 Mg) 2 tab Q6H PRN PO 07/14/17 00:00 07/14/17 05:40 (Lipitor) 40 mg HS PO 07/13/17 21:00 07/13/17 21:24 (Bumetanide) 1 mg BID PO 07/13/17 21:00 07/14/17 09:04 (Coreg) 25 mg BID PO 07/13/17 21:00 07/14/17 09:04 (Catapres) 0.1 mg BID PO 07/13/17 21:00 07/14/17 09:05 (Neurontin) 800 mg BID PO 07/14/17 09:00 07/14/17 09:05 (Cozaar) 100 mg DAILY PO 07/14/17 09:00 07/14/17 09:05 (Robaxin) 750 mg TID PO 07/14/17 09:00 07/14/17 12:44 (Procardia Xl) 60 mg DAILY PO 07/14/17 09:00 07/14/17 09:03 (Xifaxan) 550 mg Q8HR PO 07/13/17 22:00 07/14/17 12:44 (Aldactone) 25 mg DAILY PO 07/14/17 09:00 07/14/17 09:05 (Levemir Inj) 25 units Q12HR SQ 07/13/17 21:00 Future Hold 07/14/17 09:03 (D50w (Vial) Inj) 50 ml UNSCH PRN IV PUSH 07/13/17 20:00 (Glucagon Inj) 1 mg UNSCH PRN OTHER 07/13/17 20:00 (NovoLOG SUPPLEMENTAL SCALE) 1 ACHS SLIDING SCALE SQ 07/13/17 21:00 07/14/17 08:00 (Pill Splitter) 1 ea UNSCH PRN OTHER 07/13/17 20:30 Vancomycin HCl 1500 mg/Sodium Chloride 515 ml @ 257.5 mls/ hr Q24H IV 07/14/17 21:00 Miscellaneous Information SPECIFIC LAB TO BE DEVANTE... ONCE ONCE .XX 07/16/17 20:45 07/16/17 20:46 Dextrose/Sodium Chloride 1,000 ml @ 42 mls/hr [id number] IV 07/14/17 10:30 07/14/17 12:04 (Dilaudid Pf Inj) 1 mg Q4H PRN IV PUSH 07/14/17 10:30 07/14/17 11:59 Family History Mother with diabetes and coronary artery disease. Father with coronary artery disease. Social History Quit smoking in 2014, smoked 1-1/2 packs per day 20 years prior to that. Denies alcohol and illicit drugs. Physical Exam Vital Signs Vital Signs Date Time Temp Pulse Resp B/P (MAP) Pulse Ox O2 Delivery O2 Flow Rate FiO2 07/14/17 12:00 97.5 53 18 144/67 (92) 97 07/14/17 09:00 98.1 55 16 175/55 (95) 97 07/14/17 04:00 97.8 52 20 133/58 (83) 95 07/14/17 04:00 Room Air 07/14/17 00:00 97.9 54 20 147/66 (93) 94 07/14/17 00:00 Room Air 07/13/17 21:57 07/13/17 21:30 98.4 57 20 135/65 (88) 97 07/13/17 21:00 Room Air 07/13/17 17:32 Room Air 07/13/17 16:45 98.3 64 14 164/69 (100) 95 Physical Exam GENERAL: Patient is an obese, well-developed female, awake and alert, not in respiratory distress. SKIN: Cool and dry. No generalized rash, and no evidence of embolic lesions. Has some ecchymoses on anterior abdominal wall from insulin injections HEAD: Atraumatic. Normocephalic. No temporal wasting, or tenderness. EYES: [place] conjunctiva. No petechia or hemorrhage. Pupils equal, round and reactive to light. Extraocular movements full and intact. No scleral icterus. No injection or drainage. EARS, NOSE AND THROAT: Nose without bleeding or purulent nasal discharge. No sinus tenderness. Mucous membranes pink and moist. No oral lesions noted. No exudate. No oral thrush. NECK: Trachea midline. Supple and not tender, no meningeal signs CARDIOVASCULAR: Regular rate and rhythm. No murmurs, rubs or gallops heard RESPIRATORY: Clear to auscultation. Breath sounds equal bilaterally. No rales , wheezing or rhonchi ABDOMEN: Soft, non-tender, nondistended. Bowel sounds present and normoactive. No guarding. No rebound. No organomegaly. EXTREMITIES: No clubbing, cyanosis. No joint effusion, has good ROM. No calf tenderness. Well perfused and warm. Has extensive scars on her LLE. Previous amp 1st and 2nd toe, and partial amputation 3rd toe on L foot. Small wound on her L 5th toe, with some drainage, mild swelling on her L foot, NEUROLOGICAL: Awake and alert. Cranial nerves grossly intact. Motor grossly within normal limits. PSYCHIATRIC: Normal affect, calm and cooperative. LINE: No evidence of infection Laboratory Laboratory Tests Test 07/13/17 17:25 07/14/17 08:16 07/14/17 08:26 White Blood Count 8.9 6.7 Red Blood Count 4.42 4.62 Hemoglobin 10.5 10.7 Hematocrit 32.7 34.0 Mean Corpuscular Volume 74.0 73.7 Mean Corpuscular Hemoglobin 23.7 23.1 Mean Corpuscular Hemoglobin Concent 32.1 31.3 Red Cell Distribution Width 17.8 18.3 Platelet Count 297 306 Mean Platelet Volume 9.0 8.7 Neutrophils (%) (Auto) 57.2 57.1 Lymphocytes (%) (Auto) 33.6 32.6 Monocytes (%) (Auto) 6.7 6.2 Eosinophils (%) (Auto) 1.9 3.5 Basophils (%) (Auto) 0.6 0.6 Neutrophils # (Auto) 5.1 3.9 Lymphocytes # (Auto) 3.0 2.2 Monocytes # (Auto) 0.6 0.4 Eosinophils # (Auto) 0.2 0.2 Basophils # (Auto) 0.1 0.0 CBC Comment AUTO DIFF DIFF FINAL Differential Comment AUTO DIFF CONFIRMED Platelet Estimate NORMAL Platelet Morphology Comment NORMAL Stomatocytes 1+ Erythrocyte Sedimentation Rate 76 Prothrombin Time 27.4 23.5 Prothromb Time International Ratio 2.4 2.1 Blood Urea Nitrogen 53 54 Creatinine 1.60 1.56 Random Glucose 142 131 Calcium Level 8.8 9.2 Sodium Level 139 139 Potassium Level 4.9 5.2 Chloride Level 112 110 Carbon Dioxide Level 18.8 20.9 Anion Gap 8 8 Estimat Glomerular Filtration Rate 41 42 Date/Time Source Procedure Growth Status 07/13/17 17:40 Blood Peripheral Aerobic Blood Culture - Preliminary NO GROWTH IN 1 DAY Resulted 07/13/17 17:40 Blood Peripheral Anaerobic Blood Culture - Preliminary NO GROWTH IN 1 DAY Resulted Result Diagram: 07/14/17 0826 07/14/17 0816 Imaging RADIOLOGY STUDIES/FILMS REVIEWED Toe X-Ray 07/13/17 0000 Signed Impressions: Service Date/Time: Thursday, July 13, 2017 17:44 - CONCLUSION: 1. There is a 4 mm linear density adjacent to the middle phalanx of the fifth digit suspicious for a fracture. No definite erosion is identified to indicate osteomyelitis but the distal epiphysis of the proximal phalanx is absent. 2. Diffuse left foot soft tissue swelling with findings indicating prior amputation of the first through third digits. Isaak Day MD Foot MRI 07/13/17 0000 Signed Impressions: Service Date/Time: Thursday, July 13, 2017 20:07 - CONCLUSION: 1. Clear abnormal edema within the proximal and distal phalanges of the fifth digit with partial abnormal T1 signal as well, as above. However, I cannot identify with confidence if there is enhancement. Findings are very suspicious for osteomyelitis in the distal phalanx. 2. Severe subcutaneous edema. 3. There is abnormal edema within the talus and calcaneus of uncertain etiology but potentially degenerative in nature. Isaak Day MD Assessment and Plan Assessment and Plan IMPRESSION L 5th toe infection, possible osteomyelitis Known DM and has PVD Allergy to Sulfa CKD RECOMMENDATION Continue vanco Add Levaquin OR plans for today If amputation done she will only need short course of Abx post op Monitor progress I will follow along with you Thank you for this consultation Discussed Condition With Explained plan to the patient Discussed with Mariela Mix MD Jul 14, 2017 14:44
[2017-07-14 16:00] VITALS: BP 150/59; PULSE 57; RESP 17; TEMP 98.3; O2SAT 93
[2017-07-14] MEDS ORDERED: LIDOCAINE HCL 2% 50 ML VIAL ONE (17:05)
[2017-07-14] MEDS ORDERED: BUPIVACAINE HCL PF 0.5% 30 ML VIAL ONE (17:05)
[2017-07-14] MEDS ORDERED: FAMOTIDINE 20 MG/2 ML VIAL ONE (17:57)
[2017-07-14] MEDS ORDERED: DEXAMETHASONE SOD PHOS 4 MG/ML VIAL ONE (17:57)
[2017-07-14] MEDS ORDERED: METOCLOPRAMIDE HCL 10 MG/2 ML VIAL ONE (18:08)
--- NOTE | 2017-07-14 18:21 | PD.CONS ---
History of Present Illness Service Podiatry Consult Requested By ED Reason for Consult L 5th toe ulcer with bone exposed. Primary Care Physician Juan Buenrostro M.D. Diagnoses: History of Present Illness Patient presented to the hospital after I saw her on and noted bone continued to be exposed and no healing had occurred of the wound. I explained to patient that with her history of multiple infections and toe amputation to the L foot, that she go to hospital and have this treated sooner rather than later. She has been having increased pain and drainage with swelling L 5th toe. Past Family Social History Allergies: Coded Allergies: Sulfa (Sulfonamide Antibiotics) (Unverified Allergy, Severe, HIVES, ) ibuprofen (Unverified Allergy, Severe, MESSES WITH KIDNEYS, 07/13/17) egg (Unverified Allergy, Intermediate, Very Upset Stomach, 07/13/17) milk (Unverified Allergy, Unknown, 07/13/17) Past Medical History Chronic kidney disease Diabetes mellitus (insulin-dependent) CHF Hypertension Hyperlipidemia Peripheral vascular disease GERD IBS A. fib anticoagulated on Coumadin Past Surgical History Stent placement left leg I&D left leg Tonsillectomy Status post amputation of 2.5 toes on the left foot Active Ordered Medications Current Medications Medications (Trade) Dose Ordered Sig/Juliane Route Start Time Stop Time Status Last Admin (NS Flush) 2 ml UNSCH PRN IV FLUSH 07/13/17 20:00 (NS Flush) 2 ml BID IV FLUSH 07/13/17 21:00 07/14/17 11:59 (Tylenol) 650 mg Q4H PRN PO 07/13/17 20:00 (Zofran Inj) 4 mg Q6H PRN IVP 07/14/17 01:00 (Narcan Inj) 0.4 mg UNSCH PRN IV PUSH 07/13/17 20:30 (Katelynn-Colace) 1 tab BID PO 07/13/17 21:00 (Milk Of Magnesia Liq) 30 ml Q12H PRN PO 07/13/17 20:00 (Senokot) 17.2 mg Q12H PRN PO 07/13/17 20:00 (Dulcolax Supp) 10 mg DAILY PRN RECTAL 07/13/17 20:00 (Lactulose Liq) 30 ml DAILY PRN PO 07/13/17 20:00 Pharmacy Profile Note 0 ml @ 0 mls/hr UNSCH OTHER 07/13/17 20:45 (Percocet 5-325 Mg) 2 tab Q6H PRN PO 07/14/17 00:00 07/14/17 05:40 (Lipitor) 40 mg HS PO 07/13/17 21:00 07/13/17 21:24 (Bumetanide) 1 mg BID PO 07/13/17 21:00 07/14/17 09:04 (Coreg) 25 mg BID PO 07/13/17 21:00 07/14/17 09:04 (Catapres) 0.1 mg BID PO 07/13/17 21:00 07/14/17 09:05 (Neurontin) 800 mg BID PO 07/14/17 09:00 07/14/17 09:05 (Cozaar) 100 mg DAILY PO 07/14/17 09:00 07/14/17 09:05 (Robaxin) 750 mg TID PO 07/14/17 09:00 07/14/17 12:44 (Procardia Xl) 60 mg DAILY PO 07/14/17 09:00 07/14/17 09:03 (Xifaxan) 550 mg Q8HR PO 07/13/17 22:00 07/14/17 12:44 (Aldactone) 25 mg DAILY PO 07/14/17 09:00 07/14/17 09:05 (Levemir Inj) 25 units Q12HR SQ 07/13/17 21:00 Future Hold 07/14/17 09:03 (D50w (Vial) Inj) 50 ml UNSCH PRN IV PUSH 07/13/17 20:00 (Glucagon Inj) 1 mg UNSCH PRN OTHER 07/13/17 20:00 (NovoLOG SUPPLEMENTAL SCALE) 1 ACHS SLIDING SCALE SQ 07/13/17 21:00 07/14/17 08:00 (Pill Splitter) 1 ea UNSCH PRN OTHER 07/13/17 20:30 Vancomycin HCl 1500 mg/Sodium Chloride 515 ml @ 257.5 mls/ hr Q24H IV 07/14/17 21:00 Miscellaneous Information SPECIFIC LAB TO BE DEVANTE... ONCE ONCE .XX 07/16/17 20:45 07/16/17 20:46 Dextrose/Sodium Chloride 1,000 ml @ 42 mls/hr [id number] IV 07/14/17 10:30 07/14/17 12:04 (Dilaudid Pf Inj) 1 mg Q4H PRN IV PUSH 07/14/17 10:30 07/14/17 16:48 Family History Mother with diabetes and coronary artery disease. Father with coronary artery disease. Social History Quit smoking in 2014, smoked 1-1/2 packs per day 20 years prior to that. Denies alcohol and illicit drugs. Physical Exam Vital Signs Vital Signs Date Time Temp Pulse Resp B/P (MAP) Pulse Ox O2 Delivery O2 Flow Rate FiO2 07/14/17 12:00 97.5 53 18 144/67 (92) 97 07/14/17 09:00 98.1 55 16 175/55 (95) 97 07/14/17 09:00 Room Air 07/14/17 04:00 97.8 52 20 133/58 (83) 95 07/14/17 04:00 Room Air 07/14/17 00:00 97.9 54 20 147/66 (93) 94 07/14/17 00:00 Room Air 07/13/17 21:57 07/13/17 21:30 98.4 57 20 135/65 (88) 97 07/13/17 21:00 Room Air Physical Exam L 5th toe with exposed bone to PIP joint area. Diffuse edema and mild erythema to digit. No maribell purulence noted. Very painful Laboratory Laboratory Tests Test 07/14/17 08:16 07/14/17 08:26 Blood Urea Nitrogen 54 Creatinine 1.56 Random Glucose 131 Calcium Level 9.2 Sodium Level 139 Potassium Level 5.2 Chloride Level 110 Carbon Dioxide Level 20.9 Anion Gap 8 Estimat Glomerular Filtration Rate 42 White Blood Count 6.7 Red Blood Count 4.62 Hemoglobin 10.7 Hematocrit 34.0 Mean Corpuscular Volume 73.7 Mean Corpuscular Hemoglobin 23.1 Mean Corpuscular Hemoglobin Concent 31.3 Red Cell Distribution Width 18.3 Platelet Count 306 Mean Platelet Volume 8.7 Neutrophils (%) (Auto) 57.1 Lymphocytes (%) (Auto) 32.6 Monocytes (%) (Auto) 6.2 Eosinophils (%) (Auto) 3.5 Basophils (%) (Auto) 0.6 Neutrophils # (Auto) 3.9 Lymphocytes # (Auto) 2.2 Monocytes # (Auto) 0.4 Eosinophils # (Auto) 0.2 Basophils # (Auto) 0.0 CBC Comment DIFF FINAL Differential Comment Prothrombin Time 23.5 Prothromb Time International Ratio 2.1 Date/Time Source Procedure Growth Status 07/13/17 17:40 Blood Peripheral Aerobic Blood Culture - Preliminary NO GROWTH IN 1 DAY Resulted 07/13/17 17:40 Blood Peripheral Anaerobic Blood Culture - Preliminary NO GROWTH IN 1 DAY Resulted Result Diagram: 07/14/17 0826 07/14/17 0816 Imaging Last 72 hours Impressions Toe X-Ray 07/13/17 0000 Signed Impressions: Service Date/Time: Thursday, July 13, 2017 17:44 - CONCLUSION: 1. There is a 4 mm linear density adjacent to the middle phalanx of the fifth digit suspicious for a fracture. No definite erosion is identified to indicate osteomyelitis but the distal epiphysis of the proximal phalanx is absent. 2. Diffuse left foot soft tissue swelling with findings indicating prior amputation of the first through third digits. Isaak Day MD Foot MRI 07/13/17 0000 Signed Impressions: Service Date/Time: Thursday, July 13, 2017 20:07 - CONCLUSION: 1. Clear abnormal edema within the proximal and distal phalanges of the fifth digit with partial abnormal T1 signal as well, as above. However, I cannot identify with confidence if there is enhancement. Findings are very suspicious for osteomyelitis in the distal phalanx. 2. Severe subcutaneous edema. 3. There is abnormal edema within the talus and calcaneus of uncertain etiology but potentially degenerative in nature. Isaak Day MD Assessment and Plan Assessment and Plan L 5th toe osteomyelitis To OR for L 5th toe amputation Continue IV antibiotics Plan for surgical cure to remove all infected bone. Tania Gambino DPM Jul 14, 2017 18:21
[2017-07-14] MEDS ORDERED: NEOMYCIN/POLYMYXIN 1 ML G.U. IRRIGANT ONE (18:24)
--- NOTE | 2017-07-14 19:01 | HHI.PR ---
Immediate Post Op Note Procedure Date: Jul 14, 2017 Pre Op Diagnosis: L 5th toe osteomyelitis Post Op Diagnosis: same Surgeon: Tania Gambino DPM Banquet Stewardess(s): Staff Procedure: Amputation L 5th toe Findings: Consistent with diagnosis. L 5th digit with ulceration 1cm diameter to dorsolateral aspect and visible bone of distal proximal phalanx and base of middle phalanx. No maribell purulence noted. Disarticulated at MTP joint level. Culture taken of wound prior to irrigation and closure with 2-0 nylon suture, followed by xeroform, 4x4, cling, hitesh L foot. WBAT L foot in surgical shoe. No further treatment planned. Ok with d/c home when culture resulted on oral antibiotics and follow up in clinic in 1 week. Keep bandage clean, dry, intact. Additional Information: n/a Complications: none Specimen(s) removed: culture L foot L 5th toe to pathology Estimated blood loss: Minimal Anesthesia: General, Local (10mL 0.25% marcaine plain) Drains: None IVF Tourniquet time (min at mmHg) n/a Patient to: PACU Patient Condition: Good Date/Time of Procedure: SEE SURGICAL CARE RECORD Tania Gambino DPM Jul 14, 2017 19:01
[2017-07-14] MEDS ORDERED: *morphine SULFATE 8 MG/ML PERIprocedure ONLY ONE (19:26)
--- NOTE | 2017-07-14 20:23 | RADRPT ---
EXAM DATE/TIME: 07/14/2017 19:14 [facility] COMPARISON: FOOT LEFT COMPLETE ([id number]), January 19, 2017, 11:49. INDICATIONS : Post operative left foot. Amputation of the fifth digit. MEDICAL HISTORY : Diabetes mellitus type 2. Hypertension. Congestive heart failure. Renal SURGICAL HISTORY : Tonsillectomy. First, second, and third digits removed from left foot. ENCOUNTER: Initial ACUITY: 1 day PAIN SCORE: Non-responsive. LOCATION: Left foot. FINDINGS: The patient is status post distal amputation. A minimal amount of the proximal aspect of the proximal first phalanx remains at the first digit. The second digit has been removed at the l evel of the second MTP joint. The third digit has been removed at the distal aspect of the proximal phalanx. The fourth digit remains in place. The fifth digit has been removed at the metatarsal head level. Areas of bony destruction or periosteal reaction are not clearly identified. There is soft-t issue swelling at the remaining forefoot. There is calcaneal spur formation at the plantar aponeuros is and Achilles attachment site. Surgical clips are seen in the lower leg. CONCLUSION: Postsurgical changes as described above. There is soft-tissue swelling at the forefoo t. Isaak Hong MD on July 14, 2017 at 20:15 Board Certified Radiologist. This report was verified electronically.
[2017-07-14] MEDS: VANCOMYCIN 1,500 MG/NS 500 ML IV SCH ×2 (20:58)
[2017-07-14] MEDS: ATORVASTATIN 40 MG TAB PO SCH (20:59)
[2017-07-14 22:10] VITALS: BP 122/56; PULSE 60; RESP 18; TEMP 98.2; O2SAT 97
[2017-07-14] MEDS ORDERED: DO NOT ADM ANY ANTICOAGULANT DRUGS PRN (23:30)
[2017-07-15] MEDS: oxyCODONE/ACETAMINOPHEN 5 MG/325 MG TAB PO PRN (04:31)
[2017-07-15 04:37] VITALS: BP 133/63; PULSE 64; RESP 20; TEMP 98; O2SAT 97
[2017-07-15] MEDS: RIFAXIMIN 550 MG TAB PO SCH ×3 (06:03→21:43)
[2017-07-15] MEDS: HYDROmorphone HCL PF 1 MG/ML VIAL IV PUSH PRN ×4 (06:04→21:44)
[2017-07-15 08:00] VITALS: BP 133/65; PULSE 54; RESP 18; TEMP 98.1; O2SAT 96
[2017-07-15] MEDS: INSULIN ASPART SUPPLEMENTAL SCALE SQ SCH ×4 (08:18→22:33)
[2017-07-15] MEDS: LOSARTAN 50 MG TAB PO SCH (08:22)
[2017-07-15] MEDS: METHOCARBAMOL 500 MG TAB PO SCH ×3 (08:23→17:39)
[2017-07-15] MEDS: GABAPENTIN 400 MG CAP PO SCH ×2 (08:24→21:44)
[2017-07-15] MEDS: BUMETANIDE 1 MG TAB PO SCH ×2 (08:24→21:43)
[2017-07-15] MEDS: CARVEDILOL 12.5 MG TAB PO SCH ×2 (08:26→21:45)
[2017-07-15] MEDS: cloNIDine HCL 0.1 MG TAB PO SCH ×2 (08:26→21:43)
[2017-07-15] MEDS: NIFEdipine 60 MG SUSTAINED RELEASE TAB PO SCH (08:26)
[2017-07-15] MEDS: SPIRONOLACTONE 25 MG TAB PO SCH (08:27)
[2017-07-15] MEDS: DOCUSATE SODIUM 50 MG/SENNA 8.6 MG TAB PO SCH ×2 (08:32→21:00)
[2017-07-15] MEDS: SODIUM CHLORIDE 0.9% FLUSH 10 ML FLUSH IV FLUSH SCH ×2 (08:32→21:44)
[2017-07-15 09:28] LABS: BICARBONATE 18.2 MEQ/L (21.0-32.0); POTASSIUM 5.9 MEQ/L (3.5-5.1)
[2017-07-15 09:32] LABS: INDIRECT BILIRUBIN 0.1 MG/DL (0.0-0.8); TOTAL BILIRUBIN ADULT 0.2 MG/DL (0.2-1.0)
--- NOTE | 2017-07-15 10:48 | HHI.PR ---
Subjective Remarks complains of left foot - post op pain no nausea or vomiting d/w her- that amputation of the 5th toe was done- we are waiting for pathology report and final culture Objective Vitals Vital Signs Date Time Temp Pulse Resp B/P (MAP) Pulse Ox O2 Delivery O2 Flow Rate FiO2 07/15/17 08:00 98.1 54 18 133/65 (87) 96 07/15/17 04:37 98.0 64 20 133/63 (86) 97 07/15/17 04:00 Nasal Cannula 2.00 07/15/17 00:00 Nasal Cannula 2.00 07/14/17 22:10 98.2 60 18 122/56 (78) 97 07/14/17 20:30 Nasal Cannula 2.00 07/14/17 20:16 98.2 60 19 163/65 (97) 98 Nasal Cannula 2 07/14/17 20:01 62 14 156/69 (98) 99 Nasal Cannula 2 07/14/17 19:46 57 20 148/68 (94) 97 Nasal Cannula 2 07/14/17 19:31 62 14 148/63 (91) 99 Nasal Cannula 3 07/14/17 19:16 61 12 167/72 (103) 99 Nasal Cannula 3 07/14/17 19:01 97.9 65 16 156/70 (98) 99 Nasal Cannula 3 07/14/17 18:00 56 20 160/73 (102) 95 07/14/17 17:51 98.4 58 15 164/70 (101) 95 07/14/17 16:00 98.3 57 17 150/59 (89) 93 07/14/17 12:00 97.5 53 18 144/67 (92) 97 I/O 07/14/17 07/14/17 07/14/17 07/15/17 07/15/17 07/15/17 07:00 15:00 23:00 07:00 15:00 23:00 Intake Total 498 ml 100 ml 635 ml Output Total 240 ml 10 ml 500 ml Balance 258 ml 90 ml 135 ml Intake Oral 220 ml 0 ml 120 ml IV Total 278 ml 515 ml Other 100 ml Output Urine Total 240 ml 0 ml 500 ml Estimated Blood Loss 10 ml # Bowel Movements 1 0 Result Diagram: 07/14/17 0826 07/15/17 0806 Imaging Last Impressions Foot X-Ray 07/14/17 0000 Signed Impressions: Service Date/Time: Friday, July 14, 2017 19:14 - CONCLUSION: Postsurgical changes as described above. There is soft-tissue swelling at the forefoot. Isaak Hong MD Toe X-Ray 07/13/17 0000 Signed Impressions: Service Date/Time: Thursday, July 13, 2017 17:44 - CONCLUSION: 1. There is a 4 mm linear density adjacent to the middle phalanx of the fifth digit suspicious for a fracture. No definite erosion is identified to indicate osteomyelitis but the distal epiphysis of the proximal phalanx is absent. 2. Diffuse left foot soft tissue swelling with findings indicating prior amputation of the first through third digits. Isaak Day MD Foot MRI 07/13/17 0000 Signed Impressions: Service Date/Time: Thursday, July 13, 2017 20:07 - CONCLUSION: 1. Clear abnormal edema within the proximal and distal phalanges of the fifth digit with partial abnormal T1 signal as well, as above. However, I cannot identify with confidence if there is enhancement. Findings are very suspicious for osteomyelitis in the distal phalanx. 2. Severe subcutaneous edema. 3. There is abnormal edema within the talus and calcaneus of uncertain etiology but potentially degenerative in nature. Isaak Day MD Objective Remarks awake and alert, oriented x 3 anicteric lungs- no rales or wheezes regular rhythm abdomen- soft, + bowel sounds nontender LE = left foot- post op dressing in place right LE- trace edema mvoes all extremities spontaneously A/P Assessment and Plan 52-year-old female with a past medical history of CAD, DM, CHF, hypertension, hyperlipidemia, and peripheral vascular disease presents with concern for osteomyelitis of the left fifth toe. 1. S/P Left 5th toe amputation 07/14 for Osteomyelitis Left fifth toe with area of ulceration ID ff- on Vancomycin and Levaquin ff pathology report Blood cultures, ESR, MRI of the foot - suggestive of OM Podaitry ff get PT consult 2. A. fib- rate controlled Patient anticoagulated on Coumadin- restart on her Plavix + ASa 3. Insulin-dependent diabetes mellitus- good redings Patient's home insulin regimen 50 of Lantus twice a day with Novolin TIDAC Decrease insulin to 25 units Levemir twice a day with SSI DC D5 IVF 4. Chronic kidney disease Mild hyperkalemia Creatinine today 1.6, patient's baseline Monitor received bumex this am and on bid on aldactone- and cozaar- hold . BMP in am give Kayexalate 30 gm po x 1 will monitor 5. CHF- stable monitor for signs of volume overload Continue home medications 6. Hypertension Continue home medications Monitor Consult PT- post procedure Consult Case Management Martha Jimenes MD Jul 15, 2017 10:48
[2017-07-15] MEDS: SODIUM POLYSTYRENE SULFONATE SUSP 15 GM/60 ML CUP PO ONE ×2 (10:59→12:49)
[2017-07-15 12:00] VITALS: BP 146/63; PULSE 55; RESP 18; TEMP 98.4; O2SAT 96
--- NOTE | 2017-07-15 12:16 | HHI.IDPN ---
Subjective Subjective Remarks Patient is a 52-year-old female, presented to the hospital at the instruction of her automatic drill operator, for further evaluation and treatment of her left fifth toe wound. Patient apparently developed a wound on her left fifth toe about 2 weeks ago from rubbing on her shoe. She goes to a automatic drill operator on a regular basis , and she started seeing the automatic drill operator for her fifth toe. Stated that it started having some drainage with an odor, and it was hurting. He denies any fever or chills or sweats. She went for follow-up on the day of admission, and the patient was instructed to go to the hospital for IV antibiotics and possible surgery. She is afebrile. Her WBC is normal. Sedimentation rate is 76. Patient is scheduled to have surgery today by the automatic drill operator. She denies any respiratory complaint. She has not had any nausea or vomiting, diarrhea or any urinary complaints. Infectious disease consultation has been requested to evaluate the patient. Notes reviewed Temps ok Had amputation 5th toe, disarticulation C/S pending Antibiotics Vancomycin Current Medications Medications (Trade) Dose Ordered Sig/Juliane Route Start Time Stop Time Status Last Admin (NS Flush) 2 ml UNSCH PRN IV FLUSH 07/13/17 20:00 (NS Flush) 2 ml BID IV FLUSH 07/13/17 21:00 07/14/17 20:58 (Tylenol) 650 mg Q4H PRN PO 07/13/17 20:00 (Zofran Inj) 4 mg Q6H PRN IVP 07/14/17 01:00 (Narcan Inj) 0.4 mg UNSCH PRN IV PUSH 07/13/17 20:30 (Katelynn-Colace) 1 tab BID PO 07/13/17 21:00 (Milk Of Magnesia Liq) 30 ml Q12H PRN PO 07/13/17 20:00 (Senokot) 17.2 mg Q12H PRN PO 07/13/17 20:00 (Dulcolax Supp) 10 mg DAILY PRN RECTAL 07/13/17 20:00 (Lactulose Liq) 30 ml DAILY PRN PO 07/13/17 20:00 Pharmacy Profile Note 0 ml @ 0 mls/hr UNSCH OTHER 07/13/17 20:45 (Lipitor) 40 mg HS PO 07/13/17 21:00 07/14/17 20:59 (Bumetanide) 1 mg BID PO 07/13/17 21:00 07/15/17 08:24 (Coreg) 25 mg BID PO 07/13/17 21:00 07/15/17 08:26 (Catapres) 0.1 mg BID PO 07/13/17 21:00 07/15/17 08:26 (Neurontin) 800 mg BID PO 07/14/17 09:00 07/15/17 08:24 (Cozaar) 100 mg DAILY PO 07/14/17 09:00 Future Hold 07/15/17 08:22 (Robaxin) 750 mg TID PO 07/14/17 09:00 07/15/17 08:23 (Procardia Xl) 60 mg DAILY PO 07/14/17 09:00 07/15/17 08:26 (Xifaxan) 550 mg Q8HR PO 07/13/17 22:00 07/15/17 06:03 (Aldactone) 25 mg DAILY PO 07/14/17 09:00 Future Hold 07/15/17 08:27 (Levemir Inj) 25 units Q12HR SQ 07/13/17 21:00 Future Hold 07/14/17 09:03 (D50w (Vial) Inj) 50 ml UNSCH PRN IV PUSH 07/13/17 20:00 07/14/17 19:13 (Glucagon Inj) 1 mg UNSCH PRN OTHER 07/13/17 20:00 (NovoLOG SUPPLEMENTAL SCALE) 1 ACHS SLIDING SCALE SQ 07/13/17 21:00 07/15/17 08:18 (Pill Splitter) 1 ea UNSCH PRN OTHER 07/13/17 20:30 Vancomycin HCl 1500 mg/Sodium Chloride 515 ml @ 257.5 mls/ hr Q24H IV 07/14/17 21:00 07/14/17 20:58 Miscellaneous Information SPECIFIC LAB TO BE DEVANTE... ONCE ONCE .XX 07/16/17 20:45 07/16/17 20:46 (Dilaudid Pf Inj) 1 mg Q4H PRN IV PUSH 07/14/17 10:30 07/15/17 10:58 Miscellaneous Information ALL NURSING DEPARTME... UNSCH PRN .XX 07/14/17 23:30 07/15/17 23:29 (Aspirin Chew) 81 mg DAILY CHEW 07/15/17 12:00 (Plavix) 75 mg DAILY PO 07/15/17 12:00 (Percocet 10-325 Mg) 1 tab Q6H PRN PO 07/15/17 12:00 (Coumadin) 5 mg DAILY@1600 PO 07/15/17 16:00 Past Medical History Chronic kidney disease Diabetes mellitus (insulin-dependent) CHF Hypertension Hyperlipidemia Peripheral vascular disease GERD IBS A. fib anticoagulated on Coumadin Obesity Past Surgical History Stent placement left leg I&D left leg, had doubled the debridement and fasciotomy Tonsillectomy Status post amputation of 2.5 toes on the left foot Allergies: Coded Allergies: Sulfa (Sulfonamide Antibiotics) (Unverified Allergy, Severe, HIVES, ) ibuprofen (Unverified Allergy, Severe, MESSES WITH KIDNEYS, 07/13/17) egg (Unverified Allergy, Intermediate, Very Upset Stomach, 07/13/17) milk (Unverified Allergy, Unknown, 07/13/17) Objective . Vital Signs Date Time Temp Pulse Resp B/P (MAP) Pulse Ox O2 Delivery O2 Flow Rate FiO2 07/15/17 12:00 98.4 55 18 146/63 (90) 96 07/15/17 08:00 98.1 54 18 133/65 (87) 96 07/15/17 04:37 98.0 64 20 133/63 (86) 97 07/15/17 04:00 Nasal Cannula 2.00 07/15/17 00:00 Nasal Cannula 2.00 07/14/17 22:10 98.2 60 18 122/56 (78) 97 07/14/17 20:30 Nasal Cannula 2.00 07/14/17 20:16 98.2 60 19 163/65 (97) 98 Nasal Cannula 2 07/14/17 20:01 62 14 156/69 (98) 99 Nasal Cannula 2 07/14/17 19:46 57 20 148/68 (94) 97 Nasal Cannula 2 07/14/17 19:31 62 14 148/63 (91) 99 Nasal Cannula 3 07/14/17 19:16 61 12 167/72 (103) 99 Nasal Cannula 3 07/14/17 19:01 97.9 65 16 156/70 (98) 99 Nasal Cannula 3 07/14/17 18:00 56 20 160/73 (102) 95 07/14/17 17:51 98.4 58 15 164/70 (101) 95 07/14/17 16:00 98.3 57 17 150/59 (89) 93 . Laboratory Tests Test 07/13/17 17:25 07/14/17 08:26 White Blood Count 8.9 TH/MM3 6.7 TH/MM3 Red Blood Count 4.42 MIL/MM3 4.62 MIL/MM3 Hemoglobin 10.5 GM/DL 10.7 GM/DL Hematocrit 32.7 % 34.0 % Mean Corpuscular Volume 74.0 FL 73.7 FL Mean Corpuscular Hemoglobin 23.7 PG 23.1 PG Mean Corpuscular Hemoglobin Concent 32.1 % 31.3 % Red Cell Distribution Width 17.8 % 18.3 % Platelet Count 297 TH/MM3 306 TH/MM3 Mean Platelet Volume 9.0 FL 8.7 FL Neutrophils (%) (Auto) 57.2 % 57.1 % Lymphocytes (%) (Auto) 33.6 % 32.6 % Monocytes (%) (Auto) 6.7 % 6.2 % Eosinophils (%) (Auto) 1.9 % 3.5 % Basophils (%) (Auto) 0.6 % 0.6 % Neutrophils # (Auto) 5.1 TH/MM3 3.9 TH/MM3 Lymphocytes # (Auto) 3.0 TH/MM3 2.2 TH/MM3 Monocytes # (Auto) 0.6 TH/MM3 0.4 TH/MM3 Eosinophils # (Auto) 0.2 TH/MM3 0.2 TH/MM3 Basophils # (Auto) 0.1 TH/MM3 0.0 TH/MM3 CBC Comment AUTO DIFF DIFF FINAL Differential Comment AUTO DIFF CONFIRMED Platelet Estimate NORMAL Platelet Morphology Comment NORMAL Stomatocytes 1+ Erythrocyte Sedimentation Rate 76 mm/hr Laboratory Tests Test 07/13/17 17:25 07/14/17 08:16 07/15/17 08:06 Blood Urea Nitrogen 53 MG/DL 54 MG/DL 51 MG/DL Creatinine 1.60 MG/DL 1.56 MG/DL 1.62 MG/DL Random Glucose 142 MG/DL 131 MG/DL 303 MG/DL Calcium Level 8.8 MG/DL 9.2 MG/DL 8.7 MG/DL Sodium Level 139 MEQ/L 139 MEQ/L 139 MEQ/L Potassium Level 4.9 MEQ/L 5.2 MEQ/L 5.9 MEQ/L Chloride Level 112 MEQ/L 110 MEQ/L 112 MEQ/L Carbon Dioxide Level 18.8 MEQ/L 20.9 MEQ/L 18.2 MEQ/L Anion Gap 8 MEQ/L 8 MEQ/L 9 MEQ/L Estimat Glomerular Filtration Rate 41 ML/MIN 42 ML/MIN 40 ML/MIN Total Protein 7.8 GM/DL Albumin 3.0 GM/DL Alkaline Phosphatase 120 U/L Aspartate Amino Transf (AST/SGOT) 17 U/L Alanine Aminotransferase (ALT/SGPT) 20 U/L Total Bilirubin 0.2 MG/DL Direct Bilirubin 0.1 MG/DL Indirect Bilirubin 0.1 MG/DL Microbiology Date/Time Source Procedure Growth Status 07/13/17 17:40 Blood Peripheral Aerobic Blood Culture - Preliminary NO GROWTH IN 2 DAYS Resulted 07/13/17 17:40 Blood Peripheral Anaerobic Blood Culture - Preliminary NO GROWTH IN 2 DAYS Resulted 07/13/17 17:30 Blood Peripheral Aerobic Blood Culture - Preliminary NO GROWTH IN 2 DAYS Resulted 07/13/17 17:30 Blood Peripheral Anaerobic Blood Culture - Preliminary NO GROWTH IN 2 DAYS Resulted 07/14/17 18:35 Wound Toe Fungal Smear Pending Received 07/14/17 18:35 Wound Toe Fungal Culture Pending Received 07/14/17 18:35 Wound Toe Acid Fast Stain Pending Received 07/14/17 18:35 Wound Toe Mycobacterial Culture Pending Received 07/14/17 18:35 Wound Toe Gram Stain - Final Resulted 07/14/17 18:35 Wound Toe Wound Culture Pending Resulted Imaging Last Impressions Foot X-Ray 07/14/17 0000 Signed Impressions: Service Date/Time: Friday, July 14, 2017 19:14 - CONCLUSION: Postsurgical changes as described above. There is soft-tissue swelling at the forefoot. Isaak Hong MD Toe X-Ray 07/13/17 0000 Signed Impressions: Service Date/Time: Thursday, July 13, 2017 17:44 - CONCLUSION: 1. There is a 4 mm linear density adjacent to the middle phalanx of the fifth digit suspicious for a fracture. No definite erosion is identified to indicate osteomyelitis but the distal epiphysis of the proximal phalanx is absent. 2. Diffuse left foot soft tissue swelling with findings indicating prior amputation of the first through third digits. Isaak Day MD Foot MRI 07/13/17 0000 Signed Impressions: Service Date/Time: Thursday, July 13, 2017 20:07 - CONCLUSION: 1. Clear abnormal edema within the proximal and distal phalanges of the fifth digit with partial abnormal T1 signal as well, as above. However, I cannot identify with confidence if there is enhancement. Findings are very suspicious for osteomyelitis in the distal phalanx. 2. Severe subcutaneous edema. 3. There is abnormal edema within the talus and calcaneus of uncertain etiology but potentially degenerative in nature. Isaak Day MD Physical Exam GENERAL: awake and alert, not in respiratory distress. SKIN: Cool and dry. No generalized rash, and no evidence of embolic lesions. Has some ecchymoses on anterior abdominal wall from insulin injections HEAD: Atraumatic. Normocephalic. No temporal wasting, or tenderness. EYES: [place] conjunctiva. No petechia or hemorrhage. Pupils equal, round and reactive to light. Extraocular movements full and intact. No scleral icterus. No injection or drainage. EARS, NOSE AND THROAT: Nose without bleeding or purulent nasal discharge. No sinus tenderness. Mucous membranes pink and moist. No oral lesions noted. NECK: Trachea midline. Supple and not tender, no meningeal signs CARDIOVASCULAR: Regular rate and rhythm. No murmurs, rubs or gallops heard RESPIRATORY: Clear to auscultation. Breath sounds equal bilaterally. No rales , wheezing or rhonchi ABDOMEN: Soft, non-tender, nondistended. Bowel sounds present and normoactive. No guarding. No rebound. No organomegaly. EXTREMITIES: No clubbing, cyanosis. No joint effusion, has good ROM. No calf tenderness. Well perfused and warm. Has extensive scars on her LLE. Intact dressing to L foot NEUROLOGICAL: Awake and alert. Cranial nerves grossly intact. Motor grossly within normal limits. PSYCHIATRIC: Normal affect, calm and cooperative. LINE: No evidence of infection Assessment & Plan Remarks IMPRESSION L 5th toe infection, possible osteomyelitis Known DM and has PVD Allergy to Sulfa CKD RECOMMENDATION Continue vanco Continue Levaquin Follow C/S and adjust ABX Will not need IV Abx on D/C Monitor progress Mariela Sarmiento MD Jul 15, 2017 12:16
[2017-07-15] MEDS: CLOPIDOGREL 75 MG TAB PO SCH (12:51)
[2017-07-15] MEDS: ASPIRIN 81 MG CHEW TAB CHEW SCH (12:53)
[2017-07-15] MEDS ORDERED: LEVOFLOXACIN 750 MG TAB PO SCH (13:00)
--- NOTE | 2017-07-15 14:29 | EKG ---
Date Performed: 07/14/2017 Time Performed: 13:48:18 PTAGE: 52 years EKG: Sinus bradycardia with frequent PVCs Poor R wave progression - probable normal variant Low QRS voltages in precordial leads Abnormal ECG NO PREVIOUS TRACING DOCTOR: Vignesh Haley Interpretating Date/Time 07/15/2017 14:22:44
[2017-07-15 16:00] VITALS: BP 144/56; PULSE 59; RESP 18; TEMP 98.4; O2SAT 98
[2017-07-15] MEDS: WARFARIN SOD 3 MG TAB PO SCH (17:40)
[2017-07-15 19:45] VITALS: BP 102/50; PULSE 60; RESP 16; TEMP 98.2; O2SAT 98
--- NOTE | 2017-07-15 21:04 | PD.POD ---
Subjective Podiatric Problems L 5th toe osteomyelitis, s/p amputation L 5th toe 07/14/17 Dr Gambino Past Med/Surg/Social History Past Medical History Endocrine: REPORTS HX OF: Diabetes mellitus Respiratory: REPORTS HX OF: COPD Cardiovascular: REPORTS HX OF: Heart failure, Hypertension, Other CV history Gastrointestinal: REPORTS HX OF: Irritable bowel syndrome Genitourinary: REPORTS HX OF: Kidney disease Musculoskeletal: REPORTS HX OF: Gout, Osteoarthritis Infectious disease: REPORTS HX OF: Chickenpox, Measles Neurologic: REPORTS HX OF: Peripheral neuropathy Past Surgical History Gastrointestinal: REPORTS HX OF: Colectomy, total Gynecologic: DENIES HX OF: Hysterectomy Musculoskeletal: REPORTS HX OF: Other musculoskeletal srg (amputations of toes 12 and 3 left foot) Breast: REPORTS HX OF: Mastectomy, bilateral, Mastectomy, left, Mastectomy, right Social History Smoking Status: Former Smoker Objective Vital Signs Vital Signs Date Time Temp Pulse Resp B/P (MAP) Pulse Ox O2 Delivery O2 Flow Rate FiO2 07/15/17 16:00 98.4 59 18 144/56 (85) 98 07/15/17 12:00 98.4 55 18 146/63 (90) 96 07/15/17 11:30 17 07/15/17 10:15 Nasal Cannula 2.00 07/15/17 08:00 98.1 54 18 133/65 (87) 96 07/15/17 04:37 98.0 64 20 133/63 (86) 97 07/15/17 04:00 Nasal Cannula 2.00 07/15/17 00:00 Nasal Cannula 2.00 07/14/17 22:10 98.2 60 18 122/56 (78) 97 Coded Allergies: Sulfa (Sulfonamide Antibiotics) (Unverified Allergy, Severe, HIVES, ) ibuprofen (Unverified Allergy, Severe, MESSES WITH KIDNEYS, 07/13/17) egg (Unverified Allergy, Intermediate, Very Upset Stomach, 07/13/17) milk (Unverified Allergy, Unknown, 07/13/17) Medications and IVs Current Medications Medications (Trade) Dose Ordered Sig/Juliane Route Start Time Stop Time Status Last Admin (NS Flush) 2 ml UNSCH PRN IV FLUSH 07/13/17 20:00 (NS Flush) 2 ml BID IV FLUSH 07/13/17 21:00 07/14/17 20:58 (Tylenol) 650 mg Q4H PRN PO 07/13/17 20:00 (Zofran Inj) 4 mg Q6H PRN IVP 07/14/17 01:00 07/15/17 17:39 (Narcan Inj) 0.4 mg UNSCH PRN IV PUSH 07/13/17 20:30 (Katelynn-Colace) 1 tab BID PO 07/13/17 21:00 (Milk Of Magnesia Liq) 30 ml Q12H PRN PO 07/13/17 20:00 (Senokot) 17.2 mg Q12H PRN PO 07/13/17 20:00 (Dulcolax Supp) 10 mg DAILY PRN RECTAL 07/13/17 20:00 (Lactulose Liq) 30 ml DAILY PRN PO 07/13/17 20:00 Pharmacy Profile Note 0 ml @ 0 mls/hr UNSCH OTHER 07/13/17 20:45 (Lipitor) 40 mg HS PO 07/13/17 21:00 07/14/17 20:59 (Bumetanide) 1 mg BID PO 07/13/17 21:00 07/15/17 08:24 (Coreg) 25 mg BID PO 07/13/17 21:00 07/15/17 08:26 (Catapres) 0.1 mg BID PO 07/13/17 21:00 07/15/17 08:26 (Neurontin) 800 mg BID PO 07/14/17 09:00 07/15/17 08:24 (Cozaar) 100 mg DAILY PO 07/14/17 09:00 Future Hold 07/15/17 08:22 (Robaxin) 750 mg TID PO 07/14/17 09:00 07/15/17 17:39 (Procardia Xl) 60 mg DAILY PO 07/14/17 09:00 07/15/17 08:26 (Xifaxan) 550 mg Q8HR PO 07/13/17 22:00 07/15/17 12:53 (Aldactone) 25 mg DAILY PO 07/14/17 09:00 Future Hold 07/15/17 08:27 (Levemir Inj) 25 units Q12HR SQ 07/13/17 21:00 Future Hold 07/14/17 09:03 (D50w (Vial) Inj) 50 ml UNSCH PRN IV PUSH 07/13/17 20:00 07/14/17 19:13 (Glucagon Inj) 1 mg UNSCH PRN OTHER 07/13/17 20:00 (NovoLOG SUPPLEMENTAL SCALE) 1 ACHS SLIDING SCALE SQ 07/13/17 21:00 07/15/17 17:40 (Pill Splitter) 1 ea UNSCH PRN OTHER 07/13/17 20:30 Vancomycin HCl 1500 mg/Sodium Chloride 515 ml @ 257.5 mls/ hr Q24H IV 07/14/17 21:00 07/14/17 20:58 Miscellaneous Information SPECIFIC LAB TO BE DEVANTE... ONCE ONCE .XX 07/16/17 20:45 07/16/17 20:46 (Dilaudid Pf Inj) 1 mg Q4H PRN IV PUSH 07/14/17 10:30 07/15/17 15:17 Miscellaneous Information ALL NURSING DEPARTME... UNSCH PRN .XX 07/14/17 23:30 07/15/17 23:29 (Aspirin Chew) 81 mg DAILY CHEW 07/15/17 12:00 07/15/17 12:53 (Plavix) 75 mg DAILY PO 07/15/17 12:00 07/15/17 12:51 (Percocet 10-325 Mg) 1 tab Q6H PRN PO 07/15/17 12:00 (Coumadin) 5 mg DAILY@1600 PO 07/15/17 16:00 07/15/17 17:40 (Levaquin) 750 mg Q48H PO 07/15/17 13:00 07/15/17 12:52 Other Results Last 72 hours Impressions Foot X-Ray 07/14/17 0000 Signed Impressions: Service Date/Time: Friday, July 14, 2017 19:14 - CONCLUSION: Postsurgical changes as described above. There is soft-tissue swelling at the forefoot. Isaak Hong MD Toe X-Ray 07/13/17 0000 Signed Impressions: Service Date/Time: Thursday, July 13, 2017 17:44 - CONCLUSION: 1. There is a 4 mm linear density adjacent to the middle phalanx of the fifth digit suspicious for a fracture. No definite erosion is identified to indicate osteomyelitis but the distal epiphysis of the proximal phalanx is absent. 2. Diffuse left foot soft tissue swelling with findings indicating prior amputation of the first through third digits. Isaak Day MD Foot MRI 07/13/17 0000 Signed Impressions: Service Date/Time: Thursday, July 13, 2017 20:07 - CONCLUSION: 1. Clear abnormal edema within the proximal and distal phalanges of the fifth digit with partial abnormal T1 signal as well, as above. However, I cannot identify with confidence if there is enhancement. Findings are very suspicious for osteomyelitis in the distal phalanx. 2. Severe subcutaneous edema. 3. There is abnormal edema within the talus and calcaneus of uncertain etiology but potentially degenerative in nature. Isaak Day MD Physical Exam Remarks bandage clean, dry, intact L foot Assessment & Plan A/P L 5th toe osteomyelitis, s/p amputation L 5th toe 07/14/17 Dr Gambino Plan to change bandage tomorrow. If everything looks good, will give OK to d/ c morning on broad spectrum oral antibiotics Tania Gambino DPM Jul 15, 2017 21:04
[2017-07-15] MEDS: VANCOMYCIN 1,500 MG/NS 500 ML IV SCH ×2 (21:43)
[2017-07-15] MEDS: ATORVASTATIN 40 MG TAB PO SCH (21:43)
[2017-07-15 23:40] VITALS: BP 135/59; PULSE 67; RESP 18; TEMP 98.4; O2SAT 96
[2017-07-16] MEDS: SODIUM CHLORIDE 0.9% FLUSH 10 ML FLUSH IV FLUSH PRN ×2 (01:40→05:56)
[2017-07-16] MEDS: HYDROmorphone HCL PF 1 MG/ML VIAL IV PUSH PRN ×5 (01:40→22:25)
[2017-07-16 04:17] VITALS: BP 137/63; PULSE 54; RESP 18; TEMP 99.8; O2SAT 91
[2017-07-16] MEDS: RIFAXIMIN 550 MG TAB PO SCH ×3 (05:56→22:24)
[2017-07-16 07:31] LABS: INTERNATIONAL NORMALIZED RATIO 1.4 RATIO; PROTHROMBIN TIME - PATIENT 15.9 SEC (9.8-11.6)
[2017-07-16 07:42] LABS: BICARBONATE 21.9 MEQ/L (21.0-32.0); POTASSIUM 4.9 MEQ/L (3.5-5.1)
[2017-07-16 08:00] VITALS: BP 142/65; PULSE 53; RESP 20; TEMP 98.2; O2SAT 94
[2017-07-16] MEDS: DOCUSATE SODIUM 50 MG/SENNA 8.6 MG TAB PO SCH ×2 (09:00→21:00)
[2017-07-16] MEDS: ASPIRIN 81 MG CHEW TAB CHEW SCH (09:31)
[2017-07-16] MEDS: CARVEDILOL 12.5 MG TAB PO SCH ×2 (09:31→22:25)
[2017-07-16] MEDS: NIFEdipine 60 MG SUSTAINED RELEASE TAB PO SCH (09:31)
[2017-07-16] MEDS: GABAPENTIN 400 MG CAP PO SCH ×2 (09:32→22:24)
[2017-07-16] MEDS: METHOCARBAMOL 500 MG TAB PO SCH ×3 (09:32→17:12)
[2017-07-16] MEDS: BUMETANIDE 1 MG TAB PO SCH ×2 (09:33→22:24)
[2017-07-16] MEDS: CLOPIDOGREL 75 MG TAB PO SCH (09:33)
[2017-07-16] MEDS: cloNIDine HCL 0.1 MG TAB PO SCH ×2 (09:33→22:24)
[2017-07-16] MEDS: INSULIN ASPART SUPPLEMENTAL SCALE SQ SCH ×4 (09:34→22:26)
--- NOTE | 2017-07-16 11:42 | HHI.PR ---
Subjective Remarks no pain compliants no chills had a low grade fever this 4 am Objective Vitals Vital Signs Date Time Temp Pulse Resp B/P (MAP) Pulse Ox O2 Delivery O2 Flow Rate FiO2 07/16/17 08:00 98.2 53 20 142/65 (90) 94 07/16/17 04:17 99.8 54 18 137/63 (87) 91 07/15/17 23:40 98.4 67 18 135/59 (84) 96 07/15/17 23:40 Room Air 07/15/17 19:45 Room Air 07/15/17 19:45 98.2 60 16 102/50 (67) 98 07/15/17 16:00 98.4 59 18 144/56 (85) 98 07/15/17 12:00 98.4 55 18 146/63 (90) 96 I/O 07/15/17 07/15/17 07/15/17 07/16/17 07/16/17 07/16/17 07:00 15:00 23:00 07:00 15:00 23:00 Intake Total 635 ml 1080 ml 1660 ml Output Total 500 ml 2100 ml 600 ml Balance 135 ml -1020 ml 1060 ml Intake Oral 120 ml 1080 ml 1110 ml IV Total 515 ml 550 ml Output Urine Total 500 ml 2100 ml 600 ml # Bowel Movements 0 0 3 Result Diagram: 07/14/17 0826 07/16/17 0656 Imaging Last Impressions Foot X-Ray 07/14/17 0000 Signed Impressions: Service Date/Time: Friday, July 14, 2017 19:14 - CONCLUSION: Postsurgical changes as described above. There is soft-tissue swelling at the forefoot. Isaak Hong MD Toe X-Ray 07/13/17 0000 Signed Impressions: Service Date/Time: Thursday, July 13, 2017 17:44 - CONCLUSION: 1. There is a 4 mm linear density adjacent to the middle phalanx of the fifth digit suspicious for a fracture. No definite erosion is identified to indicate osteomyelitis but the distal epiphysis of the proximal phalanx is absent. 2. Diffuse left foot soft tissue swelling with findings indicating prior amputation of the first through third digits. Isaak Day MD Foot MRI 07/13/17 0000 Signed Impressions: Service Date/Time: Thursday, July 13, 2017 20:07 - CONCLUSION: 1. Clear abnormal edema within the proximal and distal phalanges of the fifth digit with partial abnormal T1 signal as well, as above. However, I cannot identify with confidence if there is enhancement. Findings are very suspicious for osteomyelitis in the distal phalanx. 2. Severe subcutaneous edema. 3. There is abnormal edema within the talus and calcaneus of uncertain etiology but potentially degenerative in nature. Isaak Day MD Objective Remarks awake and alert, oriented x 3 anicteric lungs- no rales or wheezes regular rhythm abdomen- soft, + bowel sounds nontender LE = left foot- post op dressing in place right LE-no edema mvoes all extremities spontaneously Procedures 07/14- left 5th toe amputation A/P Assessment and Plan 52-year-old female with a past medical history of CAD, DM, CHF, hypertension, hyperlipidemia, and peripheral vascular disease presents with concern for osteomyelitis of the left fifth toe. 1. S/P Left 5th toe amputation 07/14 for Osteomyelitis Left fifth toe with area of ulceration ID ff- on Vancomycin and Levaquin ff pathology report- still pending Blood cultures, ESR, MRI of the foot - suggestive of OM Podaitry ff PT daily 2. A. fib- rate controlled Patient anticoagulated restarted on Coumadin- 5mg daily 07/15 INR subtherapeutic- give extra 5 mg today restarted on her Plavix + ASa- 07/15 INR in am 3. Insulin-dependent diabetes mellitus- good [facility] Patient's home insulin regimen 50 of Lantus twice a day with Novolin TIDAC Decrease insulin to 25 units Levemir twice a day with SSI DC D5 IVF 4. Chronic kidney disease Hyperkalemia- improved Creatinine today 1.6, patient's baseline Monitor bumex bid on aldactone- and cozaar- held 07/15 Restart her cozaar 100 mg daily. BMP in am- if K good- restart her Aldactone S/P Kayexalate 30 gm po x 1 07/15 will monitor 5. CHF- stable monitor for signs of volume overload Continue home medications 6. Hypertension Continue home medications Monitor Consult PT- Consult Case Management- home health care- but patient states she prefers to do dressings on her own- will do a face to face anyway DC planning- possibly tomorrow on po antiibotics- per ID. Martha Jimenes MD Jul 16, 2017 11:42
--- NOTE | 2017-07-16 11:43 | HHI.FF ---
Face to Face Verification Diagnosis: (1) Toe amputation status (2) Ulcer of toe of left foot Home Health Nursing Order: Medical education Signs/symptoms of disease process Wound care and dressing changes Nursing assessment with vital signs I have seen patient Yas Hanna on 07/16/17. My clinical findings support the need for the requested home health care services because: Ltd mobility - disease progression Infection w/ risk of complications I certify that my clinical findings support that this patient is homebound because: Post-op weakness Unsteady gait/balance Martha Jimenes MD Jul 16, 2017 11:43
[2017-07-16 12:00] VITALS: BP 142/60; PULSE 50; RESP 20; TEMP 98.3; O2SAT 96
[2017-07-16] MEDS: oxyCODONE/ACETAMINOPHEN 10 MG/325 MG TAB PO PRN (15:06)
[2017-07-16 16:00] VITALS: BP 154/66; PULSE 54; RESP 20; TEMP 98; O2SAT 95
[2017-07-16] MEDS ORDERED: WARFARIN SOD 5 MG TAB PO ONE (16:00)
[2017-07-16] MEDS: WARFARIN SOD 3 MG TAB PO SCH (17:13)
[2017-07-16 19:43] VITALS: BP 154/67; PULSE 52; RESP 18; TEMP 98.2; O2SAT 97
[2017-07-16] MEDS: PHARMACY ORDERED LAB ONE ×2 (20:45→22:30)
--- NOTE | 2017-07-16 22:22 | PD.POD ---
Subjective Podiatric Problems L 5th toe osteomyelitis, s/p amputation L 5th toe 07/14/17 Dr Gambino Past Med/Surg/Social History Past Medical History Endocrine: REPORTS HX OF: Diabetes mellitus Respiratory: REPORTS HX OF: COPD Cardiovascular: REPORTS HX OF: Heart failure, Hypertension, Other CV history Gastrointestinal: REPORTS HX OF: Irritable bowel syndrome Genitourinary: REPORTS HX OF: Kidney disease Musculoskeletal: REPORTS HX OF: Gout, Osteoarthritis Infectious disease: REPORTS HX OF: Chickenpox, Measles Neurologic: REPORTS HX OF: Peripheral neuropathy Past Surgical History Gastrointestinal: REPORTS HX OF: Colectomy, total Gynecologic: DENIES HX OF: Hysterectomy Musculoskeletal: REPORTS HX OF: Other musculoskeletal srg (amputations of toes 12 and 3 left foot) Breast: REPORTS HX OF: Mastectomy, bilateral, Mastectomy, left, Mastectomy, right Social History Smoking Status: Former Smoker Objective Vital Signs Vital Signs Date Time Temp Pulse Resp B/P (MAP) Pulse Ox O2 Delivery O2 Flow Rate FiO2 07/16/17 19:43 98.2 52 18 154/67 (96) 97 07/16/17 16:00 98.0 54 20 154/66 (95) 95 07/16/17 14:10 Room Air 07/16/17 12:00 98.3 50 20 142/60 (87) 96 07/16/17 08:00 98.2 53 20 142/65 (90) 94 07/16/17 04:17 99.8 54 18 137/63 (87) 91 07/15/17 23:40 98.4 67 18 135/59 (84) 96 07/15/17 23:40 Room Air Coded Allergies: Sulfa (Sulfonamide Antibiotics) (Unverified Allergy, Severe, HIVES, ) ibuprofen (Unverified Allergy, Severe, MESSES WITH KIDNEYS, 07/13/17) egg (Unverified Allergy, Intermediate, Very Upset Stomach, 07/13/17) milk (Unverified Allergy, Unknown, 07/13/17) Physical Exam Remarks L foot amputation site with nylon suture intact. No drainage present. No sign of infection present. Mild pain with dressing change per patient. Assessment & Plan A/P L 5th toe osteomyelitis, s/p amputation L 5th toe 07/14/17 Dr Gambino Changed bandage today Keep clean, dry, intact until follow up next week for dressing change in clinic. Ok to d/c from podiatry standpoint when appropriate antibiotics arranged for d/c WBAT in surgical shoe L foot Tania Gambino DPM Jul 16, 2017 22:22
[2017-07-16] MEDS: SODIUM CHLORIDE 0.9% FLUSH 10 ML FLUSH IV FLUSH SCH (22:23)
[2017-07-16] MEDS: ATORVASTATIN 40 MG TAB PO SCH (22:24)
[2017-07-16] MEDS: VANCOMYCIN 1,500 MG/NS 500 ML IV SCH ×2 (22:40)
[2017-07-16 23:43] VITALS: BP 155/62; PULSE 53; RESP 18; TEMP 98.2; O2SAT 92
[2017-07-17 04:00] VITALS: BP 138/64; PULSE 55; RESP 18; TEMP 98.7; O2SAT 92
[2017-07-17] MEDS: RIFAXIMIN 550 MG TAB PO SCH (05:45)
[2017-07-17] MEDS: SODIUM CHLORIDE 0.9% FLUSH 10 ML FLUSH IV FLUSH PRN (05:46)
[2017-07-17] MEDS: HYDROmorphone HCL PF 1 MG/ML VIAL IV PUSH PRN (05:46)
[2017-07-17 08:00] VITALS: BP 164/65; PULSE 62; RESP 18; TEMP 98.4; O2SAT 97
[2017-07-17] MEDS: INSULIN ASPART SUPPLEMENTAL SCALE SQ SCH ×2 (08:00→15:46)
[2017-07-17] MEDS: DOCUSATE SODIUM 50 MG/SENNA 8.6 MG TAB PO SCH (09:00)
[2017-07-17] MEDS: SODIUM CHLORIDE 0.9% FLUSH 10 ML FLUSH IV FLUSH SCH (09:59)
[2017-07-17] MEDS: ASPIRIN 81 MG CHEW TAB CHEW SCH (09:59)
[2017-07-17] MEDS: CARVEDILOL 12.5 MG TAB PO SCH (10:00)
[2017-07-17] MEDS: LOSARTAN 50 MG TAB PO SCH (10:00)
[2017-07-17] MEDS: BUMETANIDE 1 MG TAB PO SCH (10:00)
[2017-07-17] MEDS: cloNIDine HCL 0.1 MG TAB PO SCH (10:00)
[2017-07-17] MEDS: CLOPIDOGREL 75 MG TAB PO SCH (10:01)
[2017-07-17] MEDS: GABAPENTIN 400 MG CAP PO SCH (10:01)
[2017-07-17] MEDS: NIFEdipine 60 MG SUSTAINED RELEASE TAB PO SCH (10:01)
[2017-07-17] MEDS: METHOCARBAMOL 500 MG TAB PO SCH (10:02)
[2017-07-17] MEDS: oxyCODONE/ACETAMINOPHEN 10 MG/325 MG TAB PO PRN (10:10)
[2017-07-17 10:44] LABS: POTASSIUM 4.7 MEQ/L (3.5-5.1)
[2017-07-17] MEDS ORDERED: CLIN300C5 PO (12:33)
[2017-07-17] MEDS ORDERED: LEVA250T14 PO (12:33)
[2017-07-17] MEDS ORDERED: PERC10TA27 PO (12:39)
--- NOTE | 2017-07-17 12:46 | HHI.DS ---
Discharge Summary Admission Date Jul 13, 2017 at 19:03 Discharge Date: Jul 17, 2017 Admitting Diagnosis L fifth toe osteomyelitis (1) Osteomyelitis of toe of left foot ICD Code: M86.9 - Osteomyelitis, unspecified Status: Acute Procedures 07/14- left 5th toe amputation Brief History - From Admission 52-year-old female with past medical history significant for A. fib on Coumadin , chronic kidney disease, insulin-dependent diabetes mellitus, CHF, and hypertension presents to the emergency department at the instruction of her dehydrator operator. The patient was seen in clinic on where a wound culture of the left fifth toe was taken. The area is ulcerated however nondraining and has been present for approximately 2 weeks. The patient was told by her dehydrator operator to come to the ER on Friday for admission for IV antibiotics and possible surgery. Per ED records, the wound culture was sensitive to vancomycin. CBC/BMP: 07/14/17 0826 07/17/17 0915 Significant Findings Laboratory Tests Test 07/15/17 08:06 07/16/17 06:56 07/16/17 22:30 07/17/17 09:15 Blood Urea Nitrogen 51 MG/DL (7-18) 50 MG/DL (7-18) 47 MG/DL (7-18) Creatinine 1.62 MG/DL (0.50-1.00) 1.62 MG/DL (0.50-1.00) 1.46 MG/DL (0.50-1.00) Random Glucose 303 MG/DL (74-106) 182 MG/DL (74-106) 212 MG/DL (74-106) Albumin 3.0 GM/DL (3.4-5.0) Alkaline Phosphatase 120 U/L (45-117) Potassium Level 5.9 MEQ/L (3.5-5.1) Chloride Level 112 MEQ/L (98-107) 110 MEQ/L (98-107) 109 MEQ/L (98-107) Carbon Dioxide Level 18.2 MEQ/L (21.0-32.0) Estimat Glomerular Filtration Rate 40 ML/MIN (>89) 40 ML/MIN (>89) 45 ML/MIN (>89) Prothrombin Time 15.9 SEC (9.8-11.6) Vancomycin Level Trough 21.0 MCG/ML (5.0-10.0) Imaging Last Impressions Foot X-Ray 07/14/17 0000 Signed Impressions: Service Date/Time: Friday, July 14, 2017 19:14 - CONCLUSION: Postsurgical changes as described above. There is soft-tissue swelling at the forefoot. Isaak Hong MD Toe X-Ray 07/13/17 0000 Signed Impressions: Service Date/Time: Thursday, July 13, 2017 17:44 - CONCLUSION: 1. There is a 4 mm linear density adjacent to the middle phalanx of the fifth digit suspicious for a fracture. No definite erosion is identified to indicate osteomyelitis but the distal epiphysis of the proximal phalanx is absent. 2. Diffuse left foot soft tissue swelling with findings indicating prior amputation of the first through third digits. Isaak Day MD Foot MRI 07/13/17 0000 Signed Impressions: Service Date/Time: Thursday, July 13, 2017 20:07 - CONCLUSION: 1. Clear abnormal edema within the proximal and distal phalanges of the fifth digit with partial abnormal T1 signal as well, as above. However, I cannot identify with confidence if there is enhancement. Findings are very suspicious for osteomyelitis in the distal phalanx. 2. Severe subcutaneous edema. 3. There is abnormal edema within the talus and calcaneus of uncertain etiology but potentially degenerative in nature. Isaak Day MD PE at Discharge General: awake and alert, oriented x 3 Cardiac: irregularly irregular lungs- no rales or wheezes abdomen- soft, + bowel sounds nontender LE = left foot- post op dressing in place right LE-no edema moves all extremities spontaneously Hospital Course 52-year-old female with a past medical history of CAD, DM, CHF, hypertension, hyperlipidemia, and peripheral vascular disease presents with concern for osteomyelitis of the left fifth toe. 1. S/P Left 5th toe amputation 07/14 for Osteomyelitis Left fifth toe with area of ulceration ID ff- on Vancomycin and Levaquin 07/[address] Sarmiento cleared to DC on Clindamycin 300 mg TID PO for 7 days and Levaquin 250 mg daily PO for 7 days ff pathology report- focally ulcerated digit with severe acute suppurative osteomyelitis extending to resection margins. Separate segment of osteocartilaginous tissue with severe acute suppurative osteomyelitis extending to proximal resection margin, clinically left fifth toe. Blood cultures, ESR, MRI of the foot - suggestive of OM Podaitry also following cleared for DC PT daily 2. A. fib- rate controlled Patient anticoagulated restarted on Coumadin- 5mg daily 07/15 INR subtherapeutic- give extra 5 mg today restarted on her Plavix + ASa- 07/15 INR iin [address] Buenrostro PCP 3. Insulin-dependent diabetes mellitus- good [facility] Patient's home insulin regimen 50 of Lantus twice a day with Novolin TIDAC Decrease insulin to 25 units Levemir twice a day with SSI 4. Chronic kidney disease Hyperkalemia- improved Creatinine today 1.46 Monitor Bumex bid on Aldactone- and Cozaar BMP in am- if K good- restart her Aldactone S/P Kayexalate 30 gm po x 1 07/15 will order recheck BMP in 3 days results to PCP 5. CHF- stable monitor for signs of volume overload Continue home medications 6. Hypertension Continue home medications Monitor Consult PT- Consult Case Management- home health care- but patient states she prefers to do dressings on her own- will do a face to face anyway Pt Condition on Discharge: Stable Discharge Disposition: Disch w/ Home Health Serv Discharge Time: > 30 minutes Discharge Instructions DIET: Follow Instructions for: Heart Healthy Diet, Diabetic Diet Activities you can perform: See Additionl Instruction Other Activity Instructions: Weight bearing as tolerated in surgical shoe L foot Follow up Referrals: PCP Follow-up - [address] Buenrostro Podiatry - 1 Week with Tania Gambino DPM New Medications: Clindamycin (Clindamycin) 300 Mg Cap 300 MG PO TID for Infection for 7 Days, #21 CAP 0 Refills Levofloxacin (Levaquin) 250 Mg Tablet 250 MG PO DAILY for Infection for 7 Days, #7 TAB 0 Refills Continued Medications: Aspirin (Aspirin) 81 Mg Chew 81 MG CHEW DAILY, TAB 0 Refills Atorvastatin (Lipitor) 40 Mg Tab 40 MG PO HS, #30 TAB 1 Refill Bumetanide (Bumetanide) 1 Mg Tab 1 MG PO BID, #30 TAB 0 Refills Carvedilol (Coreg) 12.5 Mg Tab 25 MG PO BID for heart, #60 TAB Cholecalciferol (Vitamin D3) 5,000 Unit Cap 5000 UNITS PO DAILY for Nutritional Supplement, #30 CAP 0 Refills Clonidine (Clonidine) 0.1 Mg Tab 0.1 MG PO BID for Blood Pressure Management, #60 TAB 0 Refills Clopidogrel (Plavix) 75 Mg Tab 75 MG PO DAILY for Blood Clot Prevention, #30 TAB 0 Refills Gabapentin (Gabapentin) 600 Mg Tab 800 MG PO TID, #90 TAB 0 Refills Glipizide (Glipizide) 10 Mg Tab 10 MG PO BIDAC for Blood Sugar Management, #60 TAB 0 Refills Take 30 minutes before a meal Insulin Glargine Inj (Lantus Inj) 1,000 Unit/10 Ml Vial 50 UNITS SQ BID for Blood Sugar Management, VIAL 0 Refills Insulin Human Regular Inj (Novolin R Inj) 1,000 Unit/10 Ml Vial 7 UNITS SQ TID NEB for Blood Sugar Management, #1 INJECTION 0 Refills Losartan (Losartan) 100 Mg Tab 100 MG PO DAILY for Blood Pressure Management, #30 TAB 0 Refills Methocarbamol (Methocarbamol) 750 Mg Tab 750 MG PO TID for Muscle Spasm, #120 TAB 0 Refills Nifedipine ER 24 HR (Nifedipine ER 24 HR) 60 Mg Tab 60 MG PO DAILY, #30 TAB 0 Refills Oxycodone-Acetaminophen (Percocet) 10-325 mg Tab 1 TAB PO Q6H PRN for PAIN, #10 TAB 0 Refills (This prescription has been renewed ) Rifaximin (Xifaxan) 550 Mg Tab 550 MG PO Q8HR for IBS w/Diarrhea, #42 TAB 0 Refills Spironolactone (Aldactone) 25 Mg Tab 25 MG PO DAILY for CHF, #30 TAB 0 Refills Warfarin (Warfarin) 5 Mg Tab 5 MG PO MON,,FRI,,F for Blood Clot Prevention, #30 TAB 0 Refills Warfarin (Coumadin) 3 Mg Tab 3 MG PO SAT,SUN for Prevent Blood Clot, #30 TAB 0 Refills Kia Monroe Jul 17, 2017 12:46
--- NOTE | 2017-07-17 15:16 | HHI.FF ---
Face to Face Verification Diagnosis: (1) Osteomyelitis of toe of left foot (2) Diabetes (3) Toe amputation status (4) Ulcer of toe of left foot Home Health Nursing Order: Medical education Signs/symptoms of disease process Medication education-adverse effect Wound care and dressing changes Nursing assessment with vital signs I have seen patient Yas Hanna on 07/17/17. My clinical findings support the need for the requested home health care services because: Ltd mobility - disease progression Infection w/ risk of complications Ltd mobility - disease progression Infection w/ risk of complications I certify that my clinical findings support that this patient is homebound because: Unable to use public transportation Unable to use public transportation Kia Monroe Jul 17, 2017 15:16
[2017-07-18] MEDS ORDERED: VANCOMYCIN INJ 1,500 MG in SODIUM CHLORID 0.9% 500 ML INJ 500 ML IV SCH (06:00)
[2017-07-21] MEDS ORDERED: PHARMACY ORDERED LAB ONE (05:45)
--- NOTE | 2017-08-03 13:23 | MP ---
cc: AURELIA DIEGO DPM DATE OF SURGERY: 07/14/2017. PREOPERATIVE DIAGNOSIS: Osteomyelitis left fifth toe. POSTOPERATIVE DIAGNOSIS: Osteomyelitis left fifth toe. OPERATION: Amputation of the left fifth toe. SURGEON: Aurelia Diego DPM. MOBILE CRANE OPERATOR: Staff. COMPLICATIONS: None. ANESTHESIA: General endotracheal anesthesia plus local consisting of 10 mL 0.25% Marcaine plain. ESTIMATED BLOOD LOSS: Minimal. PATHOLOGY: Specimen #1: Left fifth toe to pathology. Specimen #2: Culture left foot. CONDITION: Stable to the post-anesthesia care unit. DISPOSITION: Weightbearing as tolerated left foot in surgical shoe. Await culture results to determine further antibiosis. INDICATIONS FOR THE PROCEDURE: The patient is a 52-year-old female who presented to my clinic with exposed bone to the left fifth digit proximal interphalangeal joint area. She had had an ulceration with exposed bone and was sent to be evaluated at the hospital for IV antibiotics and for possible osteomyelitis. She had an MRI performed that was consistent with a diagnosis of osteomyelitis left fifth toe. I discussed with the patient the risks, benefits, and potential complications of surgery, and she agreed to undergo left fifth toe amputation. DESCRIPTION OF THE PROCEDURE IN DETAIL: She was seen in preop holding by myself, nursing staff and Anesthesia where the correct patient side and site were all confirmed to be correct in the left fifth toe. She was then taken back to the surgical suite and left in the supine position where the left foot was prepped and draped in normal sterile fashion. Following this timeouts were performed as per hospital protocol. The left fifth digit was noted to have an ulceration approximately 1 cm in diameter to the dorsolateral aspect with visible bone of the distal aspect of the proximal phalanx in the base of the middle phalanx. No maribell purulence was noted. The digit also had significant edema. Two semi-elliptical incisions were utilized in order to disarticulate the digit at the metatarsophalangeal joint level. Following removal of the digit, a culture was taken of the wound prior to irrigation with normal saline and closure with 2-0 nylon suture. A dressing was applied consisting of Xeroform, 4x4s, Dione, HALINA to the left foot. She tolerated procedure and anesthesia well without complications and was returned to the post-anesthesia care unit with vital signs stable and vascular status intact to the remainder of the left foot. She will be weightbearing as tolerated with the left foot in a surgical shoe and she will be discharged home when culture results come back to determine oral antibiotics and will follow up in clinic in one week for a dressing change. Aurelia DUFF/MARY /12:47 PM /1:13 PM
== END 2017-07-17 15:49 | disposition home health service (06) | DRG 617 ==
LOC: NEPE 16:42 → NEDA 19:03 → N04B 21:08
PROVIDERS: ADMIT Family Medicine; ATTEND Family Medicine
PROC: 0Y6Y0Z0 Detachment at Left 5th Toe, Complete, Open Approach (ICD-10-PCS; principal; 2017-07-14 18:17)
DX: E11.69 Type 2 diabetes mellitus with other specified complication (principal); I13.0 Hypertensive heart and chronic kidney disease with heart failure and stage 1 through stage 4 chronic kidney disease, or unspecified chronic kidney disease; E11.22 Type 2 diabetes mellitus with diabetic chronic kidney disease; E11.40 Type 2 diabetes mellitus with diabetic neuropathy, unspecified; M86.9 Osteomyelitis, unspecified; Z68.41 Body mass index [BMI] 40.0-44.9, adult; I50.9 Heart failure, unspecified; L97.529 Non-pressure chronic ulcer of other part of left foot with unspecified severity; E87.5 Hyperkalemia; E11.51 Type 2 diabetes mellitus with diabetic peripheral angiopathy without gangrene; M19.90 Unspecified osteoarthritis, unspecified site; F41.9 Anxiety disorder, unspecified; J44.9 Chronic obstructive pulmonary disease, unspecified; K58.9 Irritable bowel syndrome, unspecified; K21.9 Gastro-esophageal reflux disease without esophagitis; M10.9 Gout, unspecified; E66.9 Obesity, unspecified; D57.3 Sickle-cell trait; G47.30 Sleep apnea, unspecified; I25.10 Atherosclerotic heart disease of native coronary artery without angina pectoris; I48.2 Chronic atrial fibrillation; N18.9 Chronic kidney disease, unspecified; E11.621 Type 2 diabetes mellitus with foot ulcer; E78.5 Hyperlipidemia, unspecified; Z95.820 Peripheral vascular angioplasty status with implants and grafts; Z79.4 Long term (current) use of insulin; Z87.891 Personal history of nicotine dependence; Z86.718 Personal history of other venous thrombosis and embolism; Z79.01 Long term (current) use of anticoagulants
CPT/HCPCS: 73630; 73660; 73720; 80048; 80076; 80202; 82948; 85025; 85610; 85652; 87015; 87040; 87070; 87077; 87102; 87116; 87186; 87205; 87206; 88305; 88311; 93005; 96365; A9577; J1100; J1170; J1815; J2270; J2405; J2765; J3010; J3370; J7030; J7040; J7042; J7050; L3260

== ENCOUNTER 2017-11-02 09:42 | Inpatient (IN) | payer OTHER, MEDICARE ==
[~2017-11-02] VITALS: Ht 157.5 cm; Wt 115.1 kg
[2017-11-02] VITALS (7 sets, daily range): BP systolic 134–161; BP diastolic 53–71; PULSE 63–70; RESP 16–20; TEMP 97.6–98.6; O2SAT 93–97
[~2017-11-02 09:42] MED LIST changes: +ASPI-516 CHEW; +CLIN300C5 PO; -HYDR-3535 PO; +LEVA250T14 PO; +METH750T PO; -NOVO7030P2 SQ; +NOVORP2 SQ; -PANT40TA3 PO; +PERC10TA27 PO; +PLAV75TA29 PO; +XIFA550T4 PO
[2017-11-02] MEDS ORDERED: PANC3600 PO (10:59)
[2017-11-02] MEDS ORDERED: GABA800T PO (10:59)
[2017-11-02] MEDS ORDERED: NOVORP2 SQ (10:59)
[2017-11-02] MEDS ORDERED: WARF-60 PO (10:59)
[2017-11-02] MEDS ORDERED: FISHOIL PO (11:00)
[2017-11-02 11:22] LABS: AUTOMATED NEUTROPHIL # 6.3 TH/MM3 (1.8-7.7); BASOPHIL % 0.4 % (0.0-2.0); EOSINOPHIL # 0.2 TH/MM3 (0-0.4); EOSINOPHIL % 1.7 % (0.0-4.0); HEMATOCRIT 36.3 % (35.0-46.0); HEMOGLOBIN 11.4 GM/DL (11.6-15.3); LYMPH % 23.7 % (9.0-44.0); LYMPHOCYTE # 2.2 TH/MM3 (1.0-4.8); MEAN CELL VOLUME 71.4 FL (80.0-100.0); MEAN CORPUSCULAR HEMOGLOBIN 22.4 PG (27.0-34.0); MEAN CORPUSCULAR HGB CONC 31.4 % (32.0-36.0); MEAN PLATELET VOLUME 9.3 FL (7.0-11.0); MONOCYTE # 0.5 TH/MM3 (0-0.9); NEUT % 69.2 % (16.0-70.0); PLATELET COUNT 276 TH/MM3 (150-450); RED BLOOD COUNT 5.08 MIL/MM3 (4.00-5.30); RED CELL DISTRIBUTION WIDTH 15.6 % (11.6-17.2); WHITE BLOOD COUNT 9.2 TH/MM3 (4.0-11.0)
--- NOTE | 2017-11-02 11:37 | PD ---
HPI Chief Complaint: Abnormal Results Time Seen by Provider: 11:05 Travel History International Travel<30 days: No Contact w/Intl Traveler<30days: No Traveled to known affect area: No History of Present Illness HPI Patient is a 52-year-old female with a history of high blood pressure on Coumadin presents emergency department for evaluation of low blood pressure. Patient states she is having episodes where her blood pressure goes low as low as 118 systolic and then goes right back up high. This morning when she was going to have breakfast she noticed her blood pressure was low by her wrist cuff at home, she states she must have fallen asleep at the breakfast table because she spilled some coffee on herself afterwards. Denies any chest pain shortness of breath abdominal pain nausea vomiting. Significant past medical history of necrotizing fasciitis of the left lower extremity status post forefoot amputation some years ago. She also noticed that since the cold snap happened yesterday she has been having some blood in the mucus when she blows her nose. PFSH Past Medical History Hx Anticoagulant Therapy: Yes Anemia: Yes Arthritis: Yes Asthma: No Atrial Fibrillation: Yes Autoimmune Disease: No Blood Disorders: No Anxiety: Yes Depression: No Heart Rhythm Problems: Yes (afib) Cancer: No Cardiovascular Problems: Yes (htn on meds, chf) High Cholesterol: No Chemotherapy: No Chest Pain: Yes Congestive Heart Failure: Yes COPD: Yes Cerebrovascular Accident: No Diabetes: Yes (type) Patient Takes Glucophage: No Diminished Hearing: No Deep Vein Thrombosis: Yes (LEFT LEG) Endocrine: Yes Gastrointestinal Disorders: Yes (IBS) GERD: Yes Gout: Yes Genitourinary: Yes Headaches: Yes Hepatitis: No Hiatal Hernia: No Heparin Induced Thrombocytopen: No Hypertension: Yes Immune Disorder: No Implanted Vascular Access Dvce: No Kidney Stones: No Musculoskeletal: Yes Neurologic: Yes Psychiatric: Yes Reproductive: No Respiratory: Yes (hx of copd, asthma) Integumentary: Yes Immunizations Current: Yes Migraines: No Myocardial Infarction: No Pneumonia: Yes Radiation Therapy: No Renal Failure: No Seizures: No Sickle Cell Disease: Yes (carries trait) Sleep Apnea: Yes Thyroid Disease: No Ulcer: Yes PNEUMOCCOCAL Vaccine (Year): 2 ?: Not Menopausal: Yes : 5 Para: 4 Miscarriage: 1 Tubal Ligation: Yes Past Surgical History Abdominal Surgery: No AICD: No Appendectomy: No Arteriovenous Shunt: No Cardiac Surgery: No Cholecystectomy: No Ear Surgery: No Endocrine Surgery: No Eye Surgery: No Genitourinary Surgery: No Gynecologic Surgery: Yes (tubal ligation) Insulin Pump: No Joint Replacement: No Neurologic Surgery: No Oral Surgery: Yes (tooth extraction) Pacemaker: No Thoracic Surgery: No Tonsillectomy: Yes Other Surgery: Yes (DEBRIDEMENT OF ABSCESS, STENT IN LT LEG, FASCIOTOMY LEFT LEG) Social History Alcohol Use: No Tobacco Use: No (QUIT 2014) Substance Use: No Allergies-Medications (Allergen,Severity, Reaction): Coded Allergies: Sulfa (Sulfonamide Antibiotics) (Unverified Allergy, Severe, HIVES, 11/02/17 ) ibuprofen (Unverified Allergy, Severe, MESSES WITH KIDNEYS, 11/02/17) egg (Unverified Allergy, Intermediate, Very Upset Stomach, 11/02/17) milk (Unverified Allergy, Unknown, 11/02/17) Reported Meds & Prescriptions Reported Meds & Active Scripts Active Percocet (Oxycodone-Acetaminophen) 10-325 mg Tab 1 Tab PO Q6H PRN Coreg (Carvedilol) 12.5 Mg Tab 25 Mg PO BID Bumetanide 1 Mg Tab 1 Mg PO BID Lipitor (Atorvastatin Calcium) 40 Mg Tab 40 Mg PO HS Reported [Fish Oil] 1,000 Mg PO DAILY Creon (Pancrelipase) 36,000-114,000-180,000 Units Cap 1 Cap PO TIDPC Warfarin 6 Mg Tab 6 Mg PO DAILY Novolin R Inj (Insulin Human Regular) 1,000 Unit/10 Ml Vial 12 Units SQ TID Gabapentin 800 Mg Tab 800 Mg PO BID Plavix (Clopidogrel Bisulfate) 75 Mg Tab 75 Mg PO DAILY Methocarbamol 750 Mg Tab 750 Mg PO TID Aspirin 81 Mg Chew 81 Mg CHEW DAILY Losartan (Losartan Potassium) 100 Mg Tab 100 Mg PO DAILY Vitamin D3 (Cholecalciferol) 5,000 Unit Cap 5,000 Units PO DAILY Glipizide 10 Mg Tab 10 Mg PO BIDAC Take 30 minutes before a meal Nifedipine ER 24 HR (Nifedipine) 60 Mg Tab 60 Mg PO DAILY Lantus Inj (Insulin Glargine) 1,000 Unit/10 Ml Vial 50 Units SQ BID Review of Systems Except as stated in HPI: all other systems reviewed are Neg Physical Exam Narrative GENERAL: Well-developed well-nourished, morbidly obese in no obvious distress. SKIN: Focused skin assessment warm/dry. HEAD: Atraumatic. Normocephalic. EYES: Pupils equal and round. No scleral icterus. No injection or drainage. ENT: No nasal bleeding or discharge. Mucous membranes pink and moist. NECK: Trachea midline. No JVD. CARDIOVASCULAR: Regular rate and rhythm. No murmur appreciated. RESPIRATORY: No accessory muscle use. Clear to auscultation. Breath sounds equal bilaterally. GASTROINTESTINAL: Abdomen soft, non-tender, nondistended. Hepatic and splenic margins not palpable. MUSCULOSKELETAL: No obvious deformities. No clubbing. No cyanosis. No edema. Well-healed scars from left forefoot amputation, fasciotomy of left lower extremity. Otherwise extremities are atraumatic, no edema, 2+ bilateral equal pulses in all 4 extremities. NEUROLOGICAL: Awake and alert. No obvious cranial nerve deficits. Motor grossly within normal limits. Normal speech. PSYCHIATRIC: Appropriate mood and affect; insight and judgment normal. Data Data Last Documented VS Vital Signs Date Time Temp Pulse Resp B/P (MAP) Pulse Ox O2 Delivery O2 Flow Rate FiO2 11/02/17 13:07 65 16 134/59 (84) 63 16 142/53 (82) 71 20 145/66 (92) 11/02/17 12:34 97 Room Air 11/02/17 10:06 98.5 Orders Orders Complete Blood Count With Diff (11/02/17 11:10) Basic Metabolic Panel (Bmp) (11/02/17 11:10) Prothrombin Time / Inr (Pt) (11/02/17 11:10) Act Partial Throm Time (Ptt) (11/02/17 11:10) Troponin I (11/02/17 11:26) Electrocardiogram (11/02/17 ) Sodium Chlor 0.9% 1000 Ml Inj (Ns 1000 M (11/02/17 12:45) Admit Order (Ed Use Only) (11/02/17 ) Labs Laboratory Tests Test 11/02/17 11:00 White Blood Count 9.2 TH/MM3 Red Blood Count 5.08 MIL/MM3 Hemoglobin 11.4 GM/DL Hematocrit 36.3 % Mean Corpuscular Volume 71.4 FL Mean Corpuscular Hemoglobin 22.4 PG Mean Corpuscular Hemoglobin Concent 31.4 % Red Cell Distribution Width 15.6 % Platelet Count 276 TH/MM3 Mean Platelet Volume 9.3 FL Neutrophils (%) (Auto) 69.2 % Lymphocytes (%) (Auto) 23.7 % Monocytes (%) (Auto) 5.0 % Eosinophils (%) (Auto) 1.7 % Basophils (%) (Auto) 0.4 % Neutrophils # (Auto) 6.3 TH/MM3 Lymphocytes # (Auto) 2.2 TH/MM3 Monocytes # (Auto) 0.5 TH/MM3 Eosinophils # (Auto) 0.2 TH/MM3 Basophils # (Auto) 0.0 TH/MM3 CBC Comment AUTO DIFF Differential Comment AUTO DIFF CONFIRMED Prothrombin Time 30.9 SEC Prothromb Time International Ratio 3.1 RATIO Activated Partial Thromboplast Time 53.2 SEC Blood Urea Nitrogen 98 MG/DL Creatinine 2.30 MG/DL Random Glucose 132 MG/DL Calcium Level 9.2 MG/DL Sodium Level 135 MEQ/L Potassium Level 4.3 MEQ/L Chloride Level 97 MEQ/L Carbon Dioxide Level 28.7 MEQ/L Anion Gap 9 MEQ/L Estimat Glomerular Filtration Rate 27 ML/MIN Troponin I LESS THAN 0.02 NG/ML MDM Medical Decision Making Medical Screen Exam Complete: Yes Emergency Medical Condition: Yes Differential Diagnosis Bradycardia, electrolyte abnormality, acute kidney injury, dehydration, cardiomyopathy. Narrative Course Patient room to the emergency department, she is quite pleasant appears to be no obvious distress. Multiple PVCs seen in couplet form on her EKG, she has had long strings of quadrigeminy. Underlying normal sinus rhythm her blood pressure has been normal while she is here. Labs significant for an acute kidney injury creatinine seems to run about 1.4. By her history is difficult to ascertain whether the patient is fell asleep or if she actually had a syncopal episode. I think it would be reasonable for her to stay for syncopal office. The patient was briefly discussed with Dr. Carney who is reviewed the patient's chart with me and agrees that the patient may just be dehydrated. She recommends orthostatic vital signs be performed and they were performed only after 100 cc of normal saline and showed no evidence of orthostatic hypotension. Patient will be given a liter normal saline, continuing on cardiac telemetry. EKG was nonischemic troponin negative. Discussed with Dr. Louis for observation status and she is agreeable. Diagnosis Primary Impression: Syncope Additional Impressions: Acute kidney injury PVCs (premature ventricular contractions) Bradycardia Admitting Information Admitting Physician Requests: Admit Condition: Stable Odin Bansal MD Nov 02, 2017 11:37
[2017-11-02 11:41] LABS: CALCIUM 9.2 MG/DL (8.5-10.1)
[2017-11-02 11:42] LABS: BICARBONATE 28.7 MEQ/L (21.0-32.0)
[2017-11-02 11:44] LABS: INTERNATIONAL NORMALIZED RATIO 3.1 RATIO; PROTHROMBIN TIME - PATIENT 30.9 SEC (9.8-11.6)
[2017-11-02 11:45] LABS: CREATININE 2.3 MG/DL (0.50-1.00)
[2017-11-02] MEDS ORDERED: SODIUM CHLOR 0.9% 1000 ML INJ 1,000 ML IV ONE (12:45)
[2017-11-02] MEDS ORDERED: SODIUM CHLORIDE 0.9% FLUSH 10 ML FLUSH IV FLUSH PRN (15:15)
[2017-11-02] MEDS ORDERED: DEXTROSE 50% IN WATER 50 ML VIAL(D50) IV PUSH PRN (15:30)
[2017-11-02] MEDS ORDERED: GLUCAGON 1 MG/ML VIAL OTHER PRN (15:30)
--- NOTE | 2017-11-02 15:33 | HHI.HP ---
[facility] Service [facility] Primary Care Physician Juan Buenrostro M.D. Admission Diagnosis YOU possible Syncope Diagnoses: (1) Syncope Diagnosis: Principal (2) Bradycardia Diagnosis: Principal (3) Symptomatic PVCs Diagnosis: Principal (4) Acute renal failure superimposed on stage 3 chronic kidney disease Diagnosis: Principal Chief Complaint: Syncope, low blood pressure Travel History International Travel<30 Days: No Contact w/Intl Traveler <30 Da: No Traveled to Known Affected Are: No History of Present Illness 52-year-old female with rather complex medical history of atrial fibrillation, chronic kidney disease, hypertension, hyperlipidemia, congestive heart failure, peripheral vascular disease, diabetes, chronic pain who is undergoing workup at this time by her rides supervisor Dr. Carney for bradycardia. Patient states that she just had an echocardiogram done for outpatient workup. Patient presented to hospital today at the request of one of her family members he Has her blood pressure was running low. Patient states that she was in her normal state of health and she woke up this morning and was having her Coffee when she does not know what happened and she woke up with coffee spilled all over her at the table. She checked her blood pressure and it was 116/58 prior to her taking her medications. She called her family member who is in the medical field and they recommended her to go to the ER for evaluation. Patient had workup done in the emergency department and found to have bradycardia with frequent PVCs, acute renal failure superimposed on chronic kidney disease, possible dehydration. Orthostatic vitals were ascertained in the emergency department and were normal The ER physician did contact patient's rides supervisor who recommended the patient received IV fluids and see how the patient responds. In light of the patient had then syncope possible symptomatic PVCs, bradycardia it was recommended by the ER physician that the patient be admitted for further evaluation and management. Patient denies any chest pain, shortness of breath, dyspnea, abdominal pain, nausea, vomiting, lightheadedness , dizziness. 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 Reported Medications Reported Meds & Active Scripts Active Percocet (Oxycodone-Acetaminophen) 10-325 mg Tab 1 Tab PO Q6H PRN Coreg (Carvedilol) 12.5 Mg Tab 25 Mg PO BID Bumetanide 1 Mg Tab 1 Mg PO BID Lipitor (Atorvastatin Calcium) 40 Mg Tab 40 Mg PO HS Reported [Fish Oil] 1,000 Mg PO DAILY Creon (Pancrelipase) 36,000-114,000-180,000 Units Cap 1 Cap PO TIDPC Warfarin 6 Mg Tab 6 Mg PO DAILY Novolin R Inj (Insulin Human Regular) 1,000 Unit/10 Ml Vial 12 Units SQ TID Gabapentin 800 Mg Tab 800 Mg PO BID Plavix (Clopidogrel Bisulfate) 75 Mg Tab 75 Mg PO DAILY Methocarbamol 750 Mg Tab 750 Mg PO TID Aspirin 81 Mg Chew 81 Mg CHEW DAILY Losartan (Losartan Potassium) 100 Mg Tab 100 Mg PO DAILY Vitamin D3 (Cholecalciferol) 5,000 Unit Cap 5,000 Units PO DAILY Glipizide 10 Mg Tab 10 Mg PO BIDAC Take 30 minutes before a meal Nifedipine ER 24 HR (Nifedipine) 60 Mg Tab 60 Mg PO DAILY Lantus Inj (Insulin Glargine) 1,000 Unit/10 Ml Vial 50 Units SQ BID Allergies: Coded Allergies: Sulfa (Sulfonamide Antibiotics) (Unverified Allergy, Severe, HIVES, 11/02/17 ) ibuprofen (Unverified Allergy, Severe, MESSES WITH KIDNEYS, 11/02/17) egg (Unverified Allergy, Intermediate, Very Upset Stomach, 11/02/17) milk (Unverified Allergy, Unknown, 11/02/17) Family History Reviewed is significant for father from heart disease, unknown why her mom is . States that she has a brother with diabetes and hypertension Social History Patient quit smoking in 2014, prior to that she smoked 2 pack a cigarettes a day since she was 16 years old. Denies any alcohol or illicit drugs Physical Exam Vital Signs Vital Signs Date Time Temp Pulse Resp B/P (MAP) Pulse Ox O2 Delivery O2 Flow Rate FiO2 11/02/17 15:05 98.6 65 20 161/71 (101) 93 11/02/17 14:40 11/02/17 13:07 65 16 134/59 (84) 63 16 142/53 (82) 71 20 145/66 (92) 11/02/17 12:34 65 16 140/63 (88) 97 Room Air 11/02/17 10:38 16 97 Room Air 11/02/17 10:06 98.5 63 16 150/66 (94) 97 Physical Exam GENERAL: Well-developed, well-nourished, in no acute distress. alert and orientated HEENT: Head is normocephalic without any lesions or masses noted. Facial features are symmetric. Eyes: Pupils equal round reactive to light. Extraocular muscles are intact. Conjunctivae were clear. Oropharyngeal: Pharynx without any erythema edema. Tongue is midline without deviation. Buccal mucosa is moist without any masses or lesions NECK: Supple without any masses. Trachea midline no deviation. No JVD, no bruits are appreciated CARDIAC: Regular rhythm, regular rate. S1/S2 are heard. No murmurs gallops or rubs. LUNGS: Clear to auscultation bilaterally. No wheeze, rhonchi or rales. No use of accessory muscles on inspiration or expiration. ABDOMEN: Soft, nontender. Nondistended. Bowel sounds heard in all 4 quadrants. No organomegaly or masses. Negative rebound, negative guarding EXTREMITIES: No edema, pulses are equal bilaterally. No cyanosis or clubbing NEUROLOGY: Mood and affect appear appropriate. Cranial nerves II through XII grossly intact. Muscle strength 5/5 in upper and lower extremities bilaterally. Deep tendon reflexes are 2+ in upper and lower extremities bilaterally. Laboratory Laboratory Tests Test 11/02/17 11:00 White Blood Count 9.2 Red Blood Count 5.08 Hemoglobin 11.4 Hematocrit 36.3 Mean Corpuscular Volume 71.4 Mean Corpuscular Hemoglobin 22.4 Mean Corpuscular Hemoglobin Concent 31.4 Red Cell Distribution Width 15.6 Platelet Count 276 Mean Platelet Volume 9.3 Neutrophils (%) (Auto) 69.2 Lymphocytes (%) (Auto) 23.7 Monocytes (%) (Auto) 5.0 Eosinophils (%) (Auto) 1.7 Basophils (%) (Auto) 0.4 Neutrophils # (Auto) 6.3 Lymphocytes # (Auto) 2.2 Monocytes # (Auto) 0.5 Eosinophils # (Auto) 0.2 Basophils # (Auto) 0.0 CBC Comment AUTO DIFF Differential Comment AUTO DIFF CONFIRMED Prothrombin Time 30.9 Prothromb Time International Ratio 3.1 Activated Partial Thromboplast Time 53.2 Blood Urea Nitrogen 98 Creatinine 2.30 Random Glucose 132 Calcium Level 9.2 Sodium Level 135 Potassium Level 4.3 Chloride Level 97 Carbon Dioxide Level 28.7 Anion Gap 9 Estimat Glomerular Filtration Rate 27 Troponin I LESS THAN 0.02 Result Diagram: 11/02/17 1100 11/02/17 1100 Caprin VTE Risk Assessment Caprini VTE Risk Assessment: Mod/High Risk (score >= 2) Caprini Risk Assessment Model Point Value = 1 Point Value = 2 Point Value = 3 Point Value = 5 Age 41-60 Minor surgery BMI > 25 kg/m2 Swollen legs Varicose veins or History of unexplained or recurrent spontaneous Oral contraceptives or hormone replacement Sepsis (< 1 month) Serious lung disease, including pneumonia (< 1 month) Abnormal pulmonary function Acute myocardial infarction Congestive heart failure (< 1 month) History of inflammatory bowel disease Medical patient at bed rest Age 61-74 Arthroscopic surgery Major open surgery (> 45 min) Laparoscopic surgery (> 45 min) Malignancy Confined to bed (> 72 hours) Immobilizing plaster cast Central venous access Age >= 75 History of VTE Family history of VTE Factor V Leiden Prothrombin [id number] Lupus anticoagulant Anticardiolipin antibodies Elevated serum homocysteine Heparin-induced thrombocytopenia Other congenital or acquired thrombophilia Stroke (< 1 month) Elective arthroplasty Hip, pelvis, or leg fracture Acute spinal cord injury (< 1 month) Prophylaxis Regimen Total Risk Factor Score Risk Level Prophylaxis Regimen 0-1 Low Early ambulation 2 Moderate Order ONE of the following: *Sequential Compression Device (SCD) *Heparin 5000 units SQ BID 3-4 Higher Order ONE of the following medications: *Heparin 5000 units SQ TID *Enoxaparin/Lovenox 40 mg SQ daily (WT < 150 kg, CrCl > 30 mL/min) *Enoxaparin/Lovenox 30 mg SQ daily (WT < 150 kg, CrCl > 10-29 mL/min) *Enoxaparin/Lovenox 30 mg SQ BID (WT < 150 kg, CrCl > 30 mL/min) AND/OR *Sequential Compression Device (SCD) 5 or more Highest Order ONE of the following medications: *Heparin 5000 units SQ TID (Preferred with Epidurals) *Enoxaparin/Lovenox 40 mg SQ daily (WT < 150 kg, CrCl > 30 mL/min) *Enoxaparin/Lovenox 30 mg SQ daily (WT < 150 kg, CrCl > 10-29 mL/min) *Enoxaparin/Lovenox 30 mg SQ BID (WT < 150 kg, CrCl > 30 mL/min) AND *Sequential Compression Device (SCD) Assessment and Plan Assessment and Plan 52-year-old female who presented because of syncope, low blood pressure found to have arrhythmia with bradycardia, PVCs Syncope Possible symptomatic arrhythmia, bradycardia, PVCs. Could also be some medication side effect from pain medication, muscle relaxers Orthostatic vitals were normal Continue IV hydration Continue telemetry Check carotid ultrasound Continue monitor serial troponin, serial EKGs Request outside records for recent echocardiogram done Dr. Carney's office Consult cardiology for further recommendations and management Acute renal failure superimposed on chronic kidney disease stage III Continue IV fluids Continue monitor renal function Hypertension, chronic atrial fibrillation, hyperlipidemia, chronic diastolic congestive heart failure Continue home medications Patient anticoagulated on Coumadin, pharmacy consulted for management Diabetes Accu-Cheks with sliding scale insulin Chronic pain Patient's home medications were continued DVT prevention Patient anticoagulated with Coumadin, INR 3.1 Physician Certification 2 Midnight Certification Type: Admission for Inpatient Services Order for Inpatient Services The services are ordered in accordance with Medicare regulations or non- Medicare payer requirements, as applicable. In the case of services not specified as inpatient-only, they are appropriately provided as inpatient services in accordance with the 2-midnight benchmark. Estimated LOS (days): 3 days is the estimated time the patient will need to remain in the hospital, assuming treatment plan goals are met and no additional complications. Post-Hospital Plan: Not yet determined Willis Sierra Nov 02, 2017 15:33
[2017-11-02] MEDS: SODIUM CHLOR 0.9% 1000 ML INJ 1,000 ML IV SCH (15:46)
[2017-11-02] MEDS: oxyCODONE/ACETAMINOPHEN 10 MG/325 MG TAB PO PRN ×2 (15:56→21:56)
[2017-11-02] MEDS: METHOCARBAMOL 500 MG TAB PO SCH (17:25)
[2017-11-02] MEDS: INSULIN ASPART SUPPLEMENTAL SCALE SQ SCH ×2 (17:25→21:35)
[2017-11-02] MEDS ORDERED: PANCRELIPASE PO SCH (18:30)
[2017-11-02] MEDS: SODIUM CHLORIDE 0.9% FLUSH 10 ML FLUSH IV FLUSH SCH (21:00)
[2017-11-02] MEDS: BUMETANIDE 1 MG TAB PO SCH (21:32)
[2017-11-02] MEDS: ATORVASTATIN 40 MG TAB PO SCH (21:32)
[2017-11-02] MEDS: GABAPENTIN 400 MG CAP PO SCH (21:32)
[2017-11-02] MEDS: CARVEDILOL 12.5 MG TAB PO SCH (21:32)
[2017-11-03] VITALS (7 sets, daily range): BP systolic 133–173; BP diastolic 60–76; PULSE 50–66; RESP 16–20; TEMP 97.4–98; O2SAT 93–97
[2017-11-03] MEDS: SODIUM CHLOR 0.9% 1000 ML INJ 1,000 ML IV SCH ×3 (01:20→21:12)
[2017-11-03] MEDS: oxyCODONE/ACETAMINOPHEN 10 MG/325 MG TAB PO PRN ×3 (05:52→20:43)
[2017-11-03 06:35] LABS: BASOPHIL % 0.4 % (0.0-2.0); EOSINOPHIL # 0.1 TH/MM3 (0-0.4); EOSINOPHIL % 1.5 % (0.0-4.0); HEMATOCRIT 34.5 % (35.0-46.0); HEMOGLOBIN 10.9 GM/DL (11.6-15.3); LYMPH % 30.8 % (9.0-44.0); LYMPHOCYTE # 2.5 TH/MM3 (1.0-4.8); MEAN CELL VOLUME 71.7 FL (80.0-100.0); MEAN CORPUSCULAR HEMOGLOBIN 22.5 PG (27.0-34.0); MEAN CORPUSCULAR HGB CONC 31.5 % (32.0-36.0); MEAN PLATELET VOLUME 9.6 FL (7.0-11.0); MONO % 5.4 % (0.0-8.0); MONOCYTE # 0.4 TH/MM3 (0-0.9); NEUT % 61.9 % (16.0-70.0); PLATELET COUNT 262 TH/MM3 (150-450); RED BLOOD COUNT 4.81 MIL/MM3 (4.00-5.30); RED CELL DISTRIBUTION WIDTH 14.9 % (11.6-17.2)
[2017-11-03 06:38] LABS: INTERNATIONAL NORMALIZED RATIO 2.9 RATIO; PROTHROMBIN TIME - PATIENT 29.2 SEC (9.8-11.6)
[2017-11-03 06:44] LABS: BICARBONATE 27.6 MEQ/L (21.0-32.0)
[2017-11-03 07:00] LABS: CREATININE 1.8 MG/DL (0.50-1.00)
[2017-11-03] MEDS: METHOCARBAMOL 500 MG TAB PO SCH ×3 (08:33→18:37)
[2017-11-03] MEDS: GABAPENTIN 400 MG CAP PO SCH ×2 (08:34→20:44)
[2017-11-03] MEDS: BUMETANIDE 1 MG TAB PO SCH ×2 (08:34→20:44)
[2017-11-03] MEDS: LOSARTAN 50 MG TAB PO SCH (08:35)
[2017-11-03] MEDS: SODIUM CHLORIDE 0.9% FLUSH 10 ML FLUSH IV FLUSH SCH ×2 (08:38→21:00)
[2017-11-03] MEDS: INSULIN ASPART SUPPLEMENTAL SCALE SQ SCH ×4 (08:53→20:45)
[2017-11-03] MEDS ORDERED: DOCUSATE SODIUM 100 MG CAP PO PRN (09:00)
[2017-11-03] MEDS ORDERED: ASPIRIN 81 MG CHEW TAB CHEW SCH (09:00)
[2017-11-03] MEDS ORDERED: MAGNESIUM HYDROXIDE SUSP 30 ML CUP PO PRN (09:00)
[2017-11-03] MEDS ORDERED: WARFARIN SOD 6 MG TAB PO SCH (09:00)
[2017-11-03] MEDS ORDERED: NIFEdipine 60 MG SUSTAINED RELEASE TAB PO SCH (09:00)
[2017-11-03] MEDS ORDERED: CLOPIDOGREL 75 MG TAB PO SCH (09:00)
[2017-11-03] MEDS ORDERED: ALUMINUM/MAGNESIUM/SIMETH 30 ML CUP PO PRN (09:00)
[2017-11-03] MEDS ORDERED: ONDANSETRON HCL 4 MG/2 ML VIAL IV PUSH PRN (09:00)
[2017-11-03] MEDS: CARVEDILOL 12.5 MG TAB PO SCH (09:02)
--- NOTE | 2017-11-03 09:23 | HHI.PR ---
Subjective Remarks Patient seen and examined today for follow-up on syncopal episode. Patient denies any recurrent syncope. Denies any chest pain, shortness of breath. Does have some nausea this morning. Awaiting workup to be completed. Awaiting cardiology consult. Objective Vitals Vital Signs Date Time Temp Pulse Resp B/P (MAP) Pulse Ox O2 Delivery O2 Flow Rate FiO2 11/03/17 08:00 97.6 52 20 169/76 (107) 93 11/03/17 04:00 97.5 54 16 143/65 (91) 97 11/03/17 00:00 98.0 50 16 133/60 (84) 96 11/02/17 20:00 97.6 65 16 147/68 (94) 95 11/02/17 19:58 63 11/02/17 16:56 18 11/02/17 16:48 70 11/02/17 15:05 98.6 65 20 161/71 (101) 93 11/02/17 14:40 11/02/17 13:07 65 16 134/59 (84) 63 16 142/53 (82) 71 20 145/66 (92) 11/02/17 12:34 65 16 140/63 (88) 97 Room Air 11/02/17 10:38 16 97 Room Air 11/02/17 10:06 98.5 63 16 150/66 (94) 97 I/O 11/02/17 11/02/17 11/02/17 11/03/17 11/03/17 11/03/17 06:59 14:59 22:59 06:59 14:59 22:59 Intake Total 1000 ml 567 ml 761 ml Balance 1000 ml 567 ml 761 ml Intake IV Total 1000 ml 567 ml 761 ml # Voids 1 4 Result Diagram: 11/03/17 0555 11/03/17 0555 Objective Remarks GENERAL: Well-developed, well-nourished, in no acute distress. alert and orientated HEENT: Head is normocephalic without any lesions or masses noted. Facial features are symmetric. Eyes: Extraocular muscles are intact. Conjunctivae were clear. NECK: Supple without any masses. Trachea midline no deviation. No JVD, CARDIAC: Regular rhythm, regular rate. S1/S2 are heard. No murmurs gallops or rubs. LUNGS: Clear to auscultation bilaterally. No wheeze, rhonchi or rales. No use of accessory muscles on inspiration or expiration. ABDOMEN: Soft, nontender. Nondistended. Bowel sounds heard in all 4 quadrants. No organomegaly or masses. Negative rebound, negative guarding EXTREMITIES: No edema, pulses are equal bilaterally. No cyanosis or clubbing NEUROLOGY: Mood and affect appear appropriate. Cranial nerves II through XII grossly intact. Moving all extremities, speech is clear Urinary Catheter: No Vascular Central Line Catheter: No A/P Assessment and Plan 52-year-old female who presented because of syncope, low blood pressure found to have arrhythmia with bradycardia, PVCs Syncope Possible symptomatic arrhythmia, bradycardia, PVCs. Could also be some medication side effect from pain medication, muscle relaxers Orthostatic vitals were normal Continue IV hydration Continue telemetry Carotid ultrasound was completely normal, no signs of any hemodynamically significant stenosis Continue monitor serial troponin, serial EKGs, which were reviewed and do not indicate any acute coronary event Request outside records for recent echocardiogram done Dr. Carney's office Consult cardiology for further recommendations and management Discussed with Dr. Carney who indicated decreasing her dose of Coreg, increasing nifedipine. If remains stable may be on the discharge tomorrow Acute renal failure superimposed on chronic kidney disease stage III, continuing to improve Continue IV fluids Continue monitor renal function Hypertension, chronic atrial fibrillation, hyperlipidemia, chronic diastolic congestive heart failure Continue home medications Patient anticoagulated on Coumadin, pharmacy consulted for management Diabetes Accu-Cheks with sliding scale insulin Chronic pain Patient's home medications were continued DVT prevention Patient anticoagulated with Coumadin, INR 2.9 Discharge Planning Discharge planning tomorrow if patient heart rate and blood pressure are stable. Willis Sierra Nov 03, 2017 09:23
--- NOTE | 2017-11-03 10:01 | RADRPT ---
EXAM DATE/TIME: 11/03/2017 09:18 [facility] COMPARISON: No previous studies available for comparison. INDICATIONS : Syncope. MEDICAL HISTORY : Chronic obstructive pulmonary disease. Hypertension. Congestive heart failure. A-fib. DVT. Pneumonia. Diabetic neuropathy. Peridontal disease. Dyspnea. Sleep apnea. Ulcer. GERD. Osteoarthritis. Osteopor osis. Diabetes. Gout. Chronic kidney disease. Sickle cell trait. Anemia. MRSA. SURGICAL HISTORY : Tonsillectomy. Toe amputation. Stent in left leg. ENCOUNTER: Initial ACUITY: 1 day PAIN SCORE: 09/10 LOCATION: Bilateral neck PEAK SYSTOLIC VELOCITIES (cm/sec): ICA/CCA RATIO: Right: 1.6 Left: 1.5 ICA: Right: 136 Left: 124 CCA: Right: 82 Left: 84 ECA: Right: 76 Left: 102 VERTEBRAL: Right: 81 antegrade Left: 74 antegrade Elevated flow velocities and ICA/CCA ratios have been found to correlate with increased degrees of vessel stenosis, calculated as percentage of diameter relative to a normal segment of distal ICA/CCA FINDINGS: RIGHT CAROTID: There is no evidence for a hemodynamically significant carotid stenosis. Minimal intimal hyperplasia is present with scattered calcific plaque. LEFT CAROTID: There is no evidence for a hemodynamically significant carotid stenosis. Minimal intimal hyperplasia is present with scattered calcific plaque. VERTEBRAL ARTERIES: Flow is antegrade in both vertebral arteries. MISCELLANEOUS: There are no ancillary masses or adenopathy. CONCLUSION: Negative examination for a hemodynamically significant carotid stenosis. . Sarmad Timmons MD FACR on November 03, 2017 at 9:58 Board Certified Radiologist. This report was verified electronically.
--- NOTE | 2017-11-03 12:34 | MB ---
cc: Darya Carney MD DATE OF CONSULT: 11/03/2017 REASON FOR CONSULTATION: Syncope and possible bradycardia. HISTORY OF PRESENT ILLNESS: The patient is a 52-year-old female who does have a history of hypertension and DVT. He has a history of atrial fibrillation, hypertension, hyperlipidemia and chronic kidney disease. The patient reports that she has been feeling fatigued lately. Friday morning she got up and had a cup of coffee. She indicates that the next thing she remembers was sitting there with coffee all over herself. She stopped short of saying that she had a syncopal episode but has no explanation for the event and thus came to the emergency room. She was found to have a sinus rhythm with low heart rate in the 60s in the emergency room. She was subsequently admitted for acute kidney injury and syncope. Cardiology was subsequently consulted to assist with her syncope workup. The patient, other than the syncope, denies any cardiac complaints. PAST MEDICAL HISTORY: Significant for - 1. Hypertension. 2. Hyperlipidemia. 3. Diabetes. 4. Atrial fibrillation. 5. DVT on Coumadin. 6. Chronic pain. 7. Chronic kidney disease. 8. Peripheral vascular disease. 9. GERD. CURRENT MEDICATIONS: Per the record. OUTPATIENT MEDICATIONS: Include - 1. Percocet. 2. Coreg. 3. Bumex. 4. Lipitor. 5. Creon. 6. Coumadin. 7. Insulin. 8. Plavix. 9. Methocarbamol. 10. Aspirin. 11. Losartan. 12. Vitamin D. 13. Glipizide. 14. Nifedipine. 15. Lantus. ALLERGIES: SULFA. EGG. MILK. FAMILY HISTORY: Positive for heart disease. SOCIAL HISTORY: The patient is a former smoker. REVIEW OF SYSTEMS: The patient does report some nausea this morning. Other than this and what is mentioned in the HPI, all 12 systems are negative. PHYSICAL EXAMINATION: CURRENT VITAL SIGNS: 97.6, 70, 169/76. GENERAL: She is an obese female who is in no apparent distress. NECK: Free from JVD. LUNGS: Decreased but clear to auscultation. CARDIOVASCULAR EXAMINATION: She has a normal S1 and S2. No rubs or gallops are appreciated. ABDOMEN: Soft. EXTREMITIES: Free from edema. LAB VALUES: Significant for a creatinine of 2.3 and a BUN of 98. Serial troponins are less than 0.02. EKG: Shows normal sinus rhythm at 60 beats/minute. TELEMETRY: Shows sinus rhythm in the upper 50s and 60s. IMPRESSIONS: Syncope - The patient does appear to have been dehydrated. Orthostatics were obtained in the emergency room and negative for orthostasis. This was, however, after she had already received several hundred mL of IV fluids. In any case, telemetry does not show any significant bradycardia that would account for her potential syncopal event. The patient is noted to be on multiple narcotics and is quite confused with her actual medication list, specifically with regards to her cardiac meds. My office notes indicate that she was on 12.5 and she reports that she has been taking 25 mg b.i.d., thus it is difficult to know what she is truly taking at home. In any case, I would like to decrease her Coreg to 6.25 at this time. Atrial fibrillation - As above, the patient is being managed on Coreg and Coumadin. She is in sinus rhythm here. I would stop both the aspirin and Plavix as triple therapy with a therapeutic INR of 2.9 is extremely hazardous for bleeding events particularly when she is having syncopal episodes. Also of note, the patient did have a normal nuclear stress test in September of 2016. Recent echocardiogram in the office showed normal LV function. Dehydration - This appears to be the most likely etiology. This will be managed by the primary team. I will be available on a p.r.n. basis. Should any further cardiac questions arise, please do not hesitate to reconsult us. MD YAMILET Blevins/SB/rr , 10:58 AM , 11:23 AM
[2017-11-03] MEDS ORDERED: WARFARIN SOD 5 MG TAB PO SCH (16:00)
[2017-11-03] MEDS: WARFARIN SOD 4 MG TAB PO SCH (16:00)
[2017-11-03] MEDS: ATORVASTATIN 40 MG TAB PO SCH (20:43)
[2017-11-03] MEDS: CARVEDILOL 6.25 MG TAB PO SCH (20:44)
[2017-11-04] VITALS (7 sets, daily range): BP systolic 135–164; BP diastolic 64–72; PULSE 50–97; RESP 16–20; TEMP 97–97.9; O2SAT 90–97
[2017-11-04] MEDS: oxyCODONE/ACETAMINOPHEN 10 MG/325 MG TAB PO PRN ×3 (03:54→16:51)
[2017-11-04 06:53] LABS: BICARBONATE 27.9 MEQ/L (21.0-32.0)
[2017-11-04 06:56] LABS: CREATININE 1.9 MG/DL (0.50-1.00)
[2017-11-04 07:12] LABS: INTERNATIONAL NORMALIZED RATIO 2.6 RATIO; PROTHROMBIN TIME - PATIENT 26.1 SEC (9.8-11.6)
[2017-11-04] MEDS: SODIUM CHLOR 0.9% 1000 ML INJ 1,000 ML IV SCH (07:12)
[2017-11-04] MEDS ORDERED: NIFEdipine 90 MG SUSTAINED RELEASE TAB PO SCH (09:00)
[2017-11-04] MEDS: INSULIN ASPART SUPPLEMENTAL SCALE SQ SCH ×3 (09:21→16:50)
[2017-11-04] MEDS: GABAPENTIN 400 MG CAP PO SCH (09:22)
[2017-11-04] MEDS: CARVEDILOL 6.25 MG TAB PO SCH (09:23)
[2017-11-04] MEDS: METHOCARBAMOL 500 MG TAB PO SCH ×2 (09:23→13:12)
[2017-11-04] MEDS: BUMETANIDE 1 MG TAB PO SCH (09:23)
[2017-11-04] MEDS: LOSARTAN 50 MG TAB PO SCH (09:23)
[2017-11-04] MEDS: SODIUM CHLORIDE 0.9% FLUSH 10 ML FLUSH IV FLUSH SCH (09:24)
--- NOTE | 2017-11-04 09:43 | HHI.PR ---
Subjective Remarks Follow-up syncope. Patient seen and examined, sitting on side of bed eating breakfast. Denies any chest pain, or shortness of breath. Has been eating well denies any nausea vomiting. Appreciate cardiology consult. Vital signs are stable. Objective Vitals Vital Signs Date Time Temp Pulse Resp B/P (MAP) Pulse Ox O2 Delivery O2 Flow Rate FiO2 11/04/17 04:00 97.0 58 20 164/70 (101) 93 11/04/17 03:25 50 11/04/17 00:59 53 11/04/17 00:00 97.9 57 20 135/64 (87) 90 11/03/17 20:00 97.6 57 20 157/71 (99) 95 11/03/17 19:30 56 11/03/17 16:00 97.4 56 18 147/66 (93) 94 11/03/17 14:35 18 11/03/17 12:00 97.5 53 16 173/71 (105) 97 I/O 11/03/17 11/03/17 11/03/17 11/04/17 11/04/17 11/04/17 07:00 15:00 23:00 07:00 15:00 23:00 Intake Total 761 ml 240 ml Balance 761 ml 240 ml Intake Oral 240 ml IV Total 761 ml # Voids 4 7 5 # Bowel Movements 1 1 Result Diagram: 11/03/17 0555 11/04/17 0615 Imaging Last Impressions Carotid Artery Ultrasound 11/03/17 0000 Signed Impressions: Service Date/Time: Friday, November 03, 2017 09:18 - CONCLUSION: Negative examination for a hemodynamically significant carotid stenosis. . Sarmad Timmons MD FACR Objective Remarks GENERAL: Well-nourished pleasant female patient in [facility]. SKIN: Warm and dry. No rash. HEAD: Normocephalic. Atraumatic. EYES: Pupils equal and round. No scleral icterus. No injection or drainage. ENT: No nasal bleeding or discharge. Mucous membranes pink and moist. NECK: Supple. Trachea midline. CARDIOVASCULAR: Regular rate and rhythm. S1, S2 noted. No murmur appreciated. RESPIRATORY: No accessory muscle use. Clear to auscultation. Breath sounds equal bilaterally. GASTROINTESTINAL: Abdomen soft, non-tender, nondistended. Normoactive bowel sounds x4. MUSCULOSKELETAL: No obvious deformities. Extremities without clubbing, cyanosis , or edema. NEUROLOGICAL: Awake and alert. No obvious cranial nerve deficits. Motor grossly within normal limits. 5/5 muscle strength in bilateral upper and lower extremities. Normal speech. A/P Problem List: (1) Syncope ICD Code: R55 - Syncope and collapse (2) Bradycardia ICD Code: R00.1 - Bradycardia, unspecified (3) Symptomatic PVCs ICD Code: I49.3 - Ventricular premature depolarization (4) Acute renal failure superimposed on stage 3 chronic kidney disease ICD Code: N17.9 - Acute kidney failure, unspecified; N18.3 - Chronic kidney disease, stage 3 (moderate) Assessment and Plan 52-year-old female who presented because of syncope, low blood pressure found to have arrhythmia with bradycardia, PVCs Syncope Possible symptomatic arrhythmia, bradycardia, PVCs. Could also be some medication side effect from pain medication, muscle relaxers. Orthostatic vitals were normal. Status post IV hydration. Continue telemetry, reviewed overnight, no arrhythmias. Mild bradycardia, heart rate in the 50s at rest and sleep. Carotid ultrasound was completely normal, no signs of any hemodynamically significant stenosis Continue monitor serial troponin, serial EKGs, which were reviewed and do not indicate any acute coronary event Echocardiogram from cardiology office showing normal LV function. Consult cardiology for further recommendations and management, appreciate further recommendations and input. Discussed with Dr. Carney who indicated decreasing her dose of Coreg, increasing nifedipine. Blood pressure stable and heart rate stable with dose change. DC aspirin and Plavix per cardiology. Continue Coumadin and monitor INR. Acute renal failure superimposed on chronic kidney disease stage III. Continue monitor renal function outpatient with PCP and monitoring. Improving. Further encourage hydration. Adequate I&O. Hypertension, chronic atrial fibrillation, hyperlipidemia, chronic diastolic congestive heart failure Continue home medications Patient anticoagulated on Coumadin, INR therapeutic. Diabetes Accu-Cheks with sliding scale insulin. Encouraged diabetic diet. Chronic pain Patient's home medications were continued DVT prevention Patient anticoagulated with Coumadin, INR 2.6 Discharge Planning DC home today with recommendations to follow up with vascular surgeon and to update about stopping Aspirin and Plavix per cardiology. Continue INR checks and Coumadin. Continue dose changes if Coreg Nifedipine. Comfort Mckeon Nov 04, 2017 09:43
[2017-11-04] MEDS ORDERED: COUM4TAB PO (10:45)
[2017-11-04] MEDS ORDERED: NIFE90TA2 PO (10:45)
--- NOTE | 2017-11-04 10:46 | HHI.DCPOC ---
Discharge Care Plan Diagnosis: (1) Syncope Goals to Promote Your Health * To prevent worsening of your condition and complications * To maintain your health at the optimal level Directions to Meet Your Goals Take your medications as prescribed Follow your dietary instruction Follow activity as directed Keep your appointments as scheduled Take your immunizations and boosters as scheduled If your symptoms worsen call your PCP, if no PCP go to Urgent Care Center or Emergency Room Smoking is Dangerous to Your Health. Avoid second hand smoke Call the 24-hour hour crisis hotline for domestic abuse at Comfort Mckeon Nov 04, 2017 10:46
[2017-11-04] MEDS: WARFARIN SOD 4 MG TAB PO SCH (16:00)
--- NOTE | 2017-11-06 13:24 | EKG ---
Date Performed: 11/02/2017 Time Performed: 22:34:46 PTAGE: 52 years EKG: Sinus rhythm NONSPECIFIC T-WAVE ABNORMALITY BORDERLINE ECG PREVIOUS TRACING : 11/02/2017 17.10 Since the prior tracing, there has been no significant boucher DOCTOR: Romel Gillette Interpretating Date/Time 11/06/2017 13:23:38
--- NOTE | 2017-11-06 13:24 | EKG ---
Date Performed: 11/02/2017 Time Performed: 11:33:35 PTAGE: 52 years EKG: SINUS BRADYCARDIA WITH FREQUENT VENTRICULAR PREMATURE COMPLEXES POSSIBLE LEFT ATRIAL ENLARG EMENT ABNORMAL RHYTHM ECG PREVIOUS TRACING : 07/14/2017 13.48 Since the prior tracing, there has been no significant boucher DOCTOR: Romel Gillette Interpretating Date/Time 11/06/2017 13:23:47
--- NOTE | 2017-11-06 13:50 | EKG ---
Date Performed: 11/02/2017 Time Performed: 17:10:35 PTAGE: 52 years EKG: Sinus rhythm ABNORMAL ECG PREVIOUS TRACING : 11/02/2017 11.33 Since the prior tracing, there has been no significant boucher DOCTOR: Romel Gillette Interpretating Date/Time 11/06/2017 13:48:29
== END 2017-11-04 17:19 | disposition home or self-care (01) | DRG 683 ==
LOC: PHED 09:42 → PHEDA 14:07 → PH3A 14:46
PROVIDERS: ADMIT Hospitalist; ATTEND Hospitalist
DX: N17.9 Acute kidney failure, unspecified (principal); I50.32 Chronic diastolic (congestive) heart failure; I13.0 Hypertensive heart and chronic kidney disease with heart failure and stage 1 through stage 4 chronic kidney disease, or unspecified chronic kidney disease; E11.22 Type 2 diabetes mellitus with diabetic chronic kidney disease; E11.51 Type 2 diabetes mellitus with diabetic peripheral angiopathy without gangrene; Z68.42 Body mass index [BMI] 45.0-49.9, adult; I48.2 Chronic atrial fibrillation; R55 Syncope and collapse; E86.0 Dehydration; I49.3 Ventricular premature depolarization; N18.3 Chronic kidney disease, stage 3 (moderate); J44.9 Chronic obstructive pulmonary disease, unspecified; K21.9 Gastro-esophageal reflux disease without esophagitis; D57.3 Sickle-cell trait; E78.5 Hyperlipidemia, unspecified; E66.01 Morbid (severe) obesity due to excess calories; G47.30 Sleep apnea, unspecified; M19.90 Unspecified osteoarthritis, unspecified site; M10.9 Gout, unspecified; F41.9 Anxiety disorder, unspecified; Z79.4 Long term (current) use of insulin; Z87.891 Personal history of nicotine dependence; Z88.6 Allergy status to analgesic agent; Z89.432 Acquired absence of left foot; Z91.012 Allergy to eggs; Z91.011 Allergy to milk products
CPT/HCPCS: 80048; 82948; 84484; 85025; 85610; 85730; 87640; 87641; 93005; 93880; 96360; J1815; J7030

== ENCOUNTER 2017-11-24 13:08 | Observation (INO) | payer OTHER ==
[~2017-11-24] VITALS: Ht 158.8 cm; Wt 118.0 kg
[~2017-11-24 13:08] MED LIST changes: -ASPI-516 CHEW; -CARV12.5 PO; -CLIN300C5 PO; -CLON0.1T PO; -COUM3TAB PO; +COUM4TAB PO; +FISHOIL PO; -GABA600T PO; +GABA800T PO; -LEVA250T14 PO; -NIFE60TA58 PO; +NIFE90TA2 PO; +PANC3600 PO; -PLAV75TA29 PO; -SPIR25 PO; -WARF-23 PO; -XIFA550T4 PO
[2017-11-24 13:13] VITALS: BP 170/75; PULSE 74; RESP 18; TEMP 99.4; O2SAT 98
[2017-11-24] MEDS ORDERED: HYDROmorphone HCL PF 1 MG/ML VIAL IV PUSH ONE ×2 (14:00→16:45)
[2017-11-24] MEDS ORDERED: ONDANSETRON HCL 4 MG/2 ML VIAL IV PUSH ONE (14:00)
[2017-11-24 14:03] VITALS: RESP 22; O2SAT 96
--- NOTE | 2017-11-24 14:39 | RADRPT ---
EXAM DATE/TIME: 11/24/2017 14:11 [facility] COMPARISON: No previous studies available for comparison. INDICATIONS : Left hip pain with no known injury MEDICAL HISTORY : Chronic obstructive pulmonary disease. Hypertension. Congestive heart failure. Afib. SURGICAL HISTORY : Tonsillectomy. Toe amputation. Stent in left leg. ENCOUNTER: Initial ACUITY: 3 days PAIN SCORE: 10/10 LOCATION: Left posterior hip FINDINGS: Examination of the left hip was performed with AP Pelvis. The primary and secondary trabecular patte rn of the femoral neck is intact. The hip joint is of normal width without significant sclerosis or bony hypertrophy. The acetabulum is grossly intact. There is mild osteopenia. A stent catheter is no jia in the medial left thigh. CONCLUSION: Mild osteopenia with no underlying bony abnormality. Peter Hernandez MD on November 24, 2017 at 14:36 Board Certified Radiologist. This report was verified electronically.
[2017-11-24 14:59] LABS: AUTOMATED NEUTROPHIL # 7.7 TH/MM3 (1.8-7.7); BASOPHIL # 0.2 TH/MM3 (0-0.2); BASOPHIL % 1.6 % (0.0-2.0); EOSINOPHIL # 0.1 TH/MM3 (0-0.4); EOSINOPHIL % 0.6 % (0.0-4.0); HEMATOCRIT 32.7 % (35.0-46.0); HEMOGLOBIN 10.3 GM/DL (11.6-15.3); LYMPH % 16.3 % (9.0-44.0); LYMPHOCYTE # 1.7 TH/MM3 (1.0-4.8); MEAN CELL VOLUME 69.7 FL (80.0-100.0); MEAN CORPUSCULAR HEMOGLOBIN 21.9 PG (27.0-34.0); MEAN CORPUSCULAR HGB CONC 31.4 % (32.0-36.0); MEAN PLATELET VOLUME 8.7 FL (7.0-11.0); MONO % 6.3 % (0.0-8.0); MONOCYTE # 0.7 TH/MM3 (0-0.9); NEUT % 75.2 % (16.0-70.0); PLATELET COUNT 282 TH/MM3 (150-450); RED BLOOD COUNT 4.69 MIL/MM3 (4.00-5.30); RED CELL DISTRIBUTION WIDTH 15.6 % (11.6-17.2); WHITE BLOOD COUNT 10.4 TH/MM3 (4.0-11.0)
--- NOTE | 2017-11-24 15:01 | PD ---
HPI Chief Complaint: Pain: Acute or Chronic Time Seen by Provider: 13:53 Travel History International Travel<30 days: No Contact w/Intl Traveler<30days: No Traveled to known affect area: No History of Present Illness HPI 52-year-old female that presents to the ED for evaluation of left hip pain with no injury since Friday. Per patient she's had this pain since Friday. No injury or trauma. Per patient he just came all the sudden. She taking her pain medication at home with no relief. She takes Percocet and muscle relaxant. Per patient she did not fall and had any injury to his patient has any twisting injury. She denies any fevers chills or sweats. Per patient she cannot ambulate anymore which is what prompted evaluation. She hasn't only to sulfa and ibuprofen. She denies any urinary or bowel movement issues. No previous injuries or surgeries to the left hip. She does have a significant history of osteomyelitis infections to her left leg. States that the pain is 10 out of 10. Comes and goes. Denies any back injury or fall. Patient states mostly on the hip and does not radiate. Denies any cough or runny nose. No head injury. No neck pain. PFSH Past Medical History Hx Anticoagulant Therapy: Yes Anemia: Yes Arthritis: Yes Asthma: No Atrial Fibrillation: Yes Autoimmune Disease: No Blood Disorders: No Anxiety: Yes Depression: No Heart Rhythm Problems: Yes (afib) Cancer: No Cardiovascular Problems: Yes (htn on meds, chf) High Cholesterol: No Chemotherapy: No Chest Pain: Yes Congestive Heart Failure: Yes COPD: Yes Cerebrovascular Accident: No Diabetes: Yes Patient Takes Glucophage: No Diminished Hearing: No Deep Vein Thrombosis: Yes (LEFT LEG) Endocrine: Yes Gastrointestinal Disorders: Yes (IBS) GERD: Yes Gout: Yes Genitourinary: Yes Headaches: Yes Hepatitis: No Hiatal Hernia: No Heparin Induced Thrombocytopen: No Hypertension: Yes Immune Disorder: No Implanted Vascular Access Dvce: No Kidney Stones: No Musculoskeletal: Yes Neurologic: Yes Psychiatric: Yes Reproductive: No Respiratory: Yes (hx of copd, asthma) Integumentary: Yes Immunizations Current: Yes Migraines: No Myocardial Infarction: No Pneumonia: Yes Radiation Therapy: No Renal Failure: No Seizures: No Sickle Cell Disease: Yes (carries trait) Sleep Apnea: Yes Thyroid Disease: No Ulcer: Yes PNEUMOCCOCAL Vaccine (Year): 2 ?: Not Menopausal: Yes : 5 Para: 4 Miscarriage: 1 Tubal Ligation: Yes Past Surgical History Abdominal Surgery: No AICD: No Appendectomy: No Arteriovenous Shunt: No Cardiac Surgery: No Cholecystectomy: No Ear Surgery: No Endocrine Surgery: No Eye Surgery: No Genitourinary Surgery: No Gynecologic Surgery: Yes (tubal ligation) Insulin Pump: No Joint Replacement: No Neurologic Surgery: No Oral Surgery: Yes (tooth extraction) Pacemaker: No Thoracic Surgery: No Tonsillectomy: Yes Other Surgery: Yes (DEBRIDEMENT OF ABSCESS, STENT IN LT LEG, FASCIOTOMY LEFT LEG) Social History Alcohol Use: No Tobacco Use: No (QUIT 2014) Substance Use: No Allergies-Medications (Allergen,Severity, Reaction): Coded Allergies: Sulfa (Sulfonamide Antibiotics) (Verified Allergy, Severe, HIVES, 11/24/17) ibuprofen (Verified Allergy, Severe, MESSES WITH KIDNEYS, 11/24/17) egg (Verified Allergy, Intermediate, Very Upset Stomach, 11/24/17) milk (Verified Allergy, Unknown, 11/24/17) Reported Meds & Prescriptions Reported Meds & Active Scripts Active Nifedipine ER (Nifedipine) 90 Mg Tab 90 Mg PO DAILY 30 Days Coumadin (Warfarin) 4 Mg Tab 4 Mg PO DAILY@1600 30 Days Percocet (Oxycodone-Acetaminophen) 10-325 mg Tab 1 Tab PO Q6H PRN Bumetanide 1 Mg Tab 1 Mg PO BID Lipitor (Atorvastatin Calcium) 40 Mg Tab 40 Mg PO HS Reported [Fish Oil] 1,000 Mg PO DAILY Creon (Pancrelipase) 36,000-114,000-180,000 Units Cap 1 Cap PO TIDPC Novolin R Inj (Insulin Human Regular) 1,000 Unit/10 Ml Vial 12 Units SQ TID Gabapentin 800 Mg Tab 800 Mg PO BID Methocarbamol 750 Mg Tab 750 Mg PO TID Losartan (Losartan Potassium) 100 Mg Tab 100 Mg PO DAILY Vitamin D3 (Cholecalciferol) 5,000 Unit Cap 5,000 Units PO DAILY Glipizide 10 Mg Tab 10 Mg PO BIDAC Take 30 minutes before a meal Lantus Inj (Insulin Glargine) 1,000 Unit/10 Ml Vial 50 Units SQ BID Review of Systems Except as stated in HPI: all other systems reviewed are Neg Physical Exam Narrative GENERAL: SKIN: Warm and dry. HEAD: Atraumatic. Normocephalic. EYES: Pupils equal and round. No scleral icterus. No injection or drainage. ENT: No nasal bleeding or discharge. Mucous membranes pink and moist. Tongue is midline. No uvula deviation. NECK: Trachea midline. No JVD. CARDIOVASCULAR: Regular rate and rhythm. No murmurs, S3, S4. RESPIRATORY: No accessory muscle use. Clear to auscultation. Breath sounds equal bilaterally. GASTROINTESTINAL: Abdomen soft, non-tender, nondistended. Hepatic and splenic margins not palpable. MUSCULOSKELETAL: Extremities without clubbing, cyanosis, or edema. No obvious deformities. Full range of motion of the upper and lower extremities bilaterally with exception of the left hip. 2+ pulses bilaterally. Patient has significant pain just with touch on the left hip. Any movement of the left hip causes severe pain to the patient. Patient does have surgical scars on the left lower leg from previous surgeries. Sensation intact bilaterally. NEUROLOGICAL: Awake and alert. No obvious cranial nerve deficits. Motor grossly within normal limits. Five out of 5 muscle strength in the arms and legs. Normal speech. PSYCHIATRIC: Appropriate mood and affect; insight and judgment normal. Data Data Last Documented VS Vital Signs Date Time Temp Pulse Resp B/P (MAP) Pulse Ox O2 Delivery O2 Flow Rate FiO2 11/24/17 17:26 86 Nasal Cannula 2.00 11/24/17 15:48 16 11/24/17 15:21 70 214/60 (111) 11/24/17 13:13 99.4 Orders Orders Complete Blood Count With Diff (11/24/17 13:56) Comprehensive Metabolic Panel (11/24/17 13:56) Creatine Kinase (Cpk) (11/24/17 13:56) Prothrombin Time / Inr (Pt) (11/24/17 13:56) Act Partial Throm Time (Ptt) (11/24/17 13:56) Blood Culture (11/24/17 13:56) Magnesium (Mg) (11/24/17 13:56) Iv Access Insert/Monitor (11/24/17 13:56) Ecg Monitoring (11/24/17 13:56) Oximetry (11/24/17 13:56) Ondansetron Inj (Zofran Inj) (11/24/17 14:00) Hip, Uni(Ap&Lat) W Ap Pelvis (11/24/17 ) Hydromorphone Pf Inj (Dilaudid Pf Inj) (11/24/17 15:15) Ct Hip W/O Contrast (11/24/17 ) Ct Lumb Spine W/O Contrast (11/24/17 ) C-Reactive Protein (Crp) (11/24/17 15:47) Hydromorphone Pf Inj (Dilaudid Pf Inj) (11/24/17 17:00) Admit Order (Ed Use Only) (11/24/17 17:38) Labs Laboratory Tests Test 11/24/17 14:53 11/24/17 14:55 White Blood Count 10.4 TH/MM3 Red Blood Count 4.69 MIL/MM3 Hemoglobin 10.3 GM/DL Hematocrit 32.7 % Mean Corpuscular Volume 69.7 FL Mean Corpuscular Hemoglobin 21.9 PG Mean Corpuscular Hemoglobin Concent 31.4 % Red Cell Distribution Width 15.6 % Platelet Count 282 TH/MM3 Mean Platelet Volume 8.7 FL Neutrophils (%) (Auto) 75.2 % Lymphocytes (%) (Auto) 16.3 % Monocytes (%) (Auto) 6.3 % Eosinophils (%) (Auto) 0.6 % Basophils (%) (Auto) 1.6 % Neutrophils # (Auto) 7.7 TH/MM3 Lymphocytes # (Auto) 1.7 TH/MM3 Monocytes # (Auto) 0.7 TH/MM3 Eosinophils # (Auto) 0.1 TH/MM3 Basophils # (Auto) 0.2 TH/MM3 CBC Comment AUTO DIFF Differential Comment AUTO DIFF CONFIRMED Ovalocytes 1+ Prothrombin Time 18.8 SEC Prothromb Time International Ratio 1.9 RATIO Activated Partial Thromboplast Time 44.1 SEC Blood Urea Nitrogen 73 MG/DL Creatinine 2.10 MG/DL Random Glucose 242 MG/DL Total Protein 8.5 GM/DL Albumin 3.4 GM/DL Calcium Level 9.2 MG/DL Magnesium Level 2.2 MG/DL Alkaline Phosphatase 159 U/L Aspartate Amino Transf (AST/SGOT) 14 U/L Alanine Aminotransferase (ALT/SGPT) 16 U/L Total Bilirubin 0.2 MG/DL Sodium Level 136 MEQ/L Potassium Level 4.5 MEQ/L Chloride Level 101 MEQ/L Carbon Dioxide Level 25.0 MEQ/L Anion Gap 10 MEQ/L Estimat Glomerular Filtration Rate 30 ML/MIN Total Creatine Kinase 103 U/L C-Reactive Protein 16.30 MG/DL MDM Medical Decision Making Medical Screen Exam Complete: Yes Emergency Medical Condition: Yes Medical Record Reviewed: Yes Interpretation(s) xray of the left hip showed no sign of acute bony injury CBC & BMP Diagram 11/24/17 14:53 Total Protein 8.5 H, Albumin 3.4, Calcium Level 9.2, Magnesium Level 2.2, Alkaline Phosphatase 159 H, Aspartate Amino Transf (AST/SGOT) 14 L, Alanine Aminotransferase (ALT/SGPT) 16, Total Bilirubin 0.2 CRP elevated Coags with INR of 1.9. Differential Diagnosis Fracture versus sprain versus strain versus bruise versus contusion versus acute on chronic pain versus sciatica versus neuropathy Narrative Course 52-year-old female that presents to the ED for evaluation of left hip pain with no injury. Patient was properly examined and was found to have signs and symptoms of unclear etiology at this time. Very reproducible pain with touch or any movement. No signs of infection or deformity. Labs and imaging ordered. Labs and imaging were essentially unremarkable. Patient did not get relief with pain medication. Patient cannot stand on her own move her leg without severe pain. Because of this patient will be admitted to the hospital for further evaluation. CTs were ordered per patient wasn't able to do the CT scan due to pain and claustrophobia per patient. Unclear reason for pain. Gout in the differential. No obvious signs of infection. My attending agrees with admission plan as patient cannot ambulate. JEANETH rogers. DR Orantes agreed to admission. Diagnosis Primary Impression: Hip pain, acute Qualified Codes: M25.552 - Pain in left hip Additional Impressions: Inability to ambulate due to hip Hypertensive urgency Admitting Information Admitting Physician Requests: Erasto Thomas Nov 24, 2017 15:01
[2017-11-24 15:06] LABS: CHLORIDE 101 MEQ/L (98-107); SODIUM (NA) 136 MEQ/L (136-145)
[2017-11-24 15:09] LABS: ALBUMIN 3.4 GM/DL (3.4-5.0); BLOOD UREA NITROGEN 73 MG/DL (7-18); CALCIUM 9.2 MG/DL (8.5-10.1); GLUCOSE,RANDOM 242 MG/DL (74-106); MAGNESIUM 2.2 MG/DL (1.5-2.5)
[2017-11-24 15:10] LABS: INTERNATIONAL NORMALIZED RATIO 1.9 RATIO; PROTHROMBIN TIME - PATIENT 18.8 SEC (9.8-11.6)
[2017-11-24 15:12] LABS: ALT (GPT) 16 U/L (10-53); AST (GOT) 14 U/L (15-37)
[2017-11-24 15:13] LABS: GLOMERULAR FILTRATION RATE 30 ML/MIN (>89)
[2017-11-24 15:14] LABS: TOTAL BILIRUBIN ADULT 0.2 MG/DL (0.2-1.0); TOTAL PROTEIN 8.5 GM/DL (6.4-8.2)
[2017-11-24 15:15] LABS: ALKALINE PHOSPHATASE 159 U/L (45-117)
[2017-11-24] MEDS ORDERED: HYDROmorphone HCL PF 2 MG/ML VIAL IV ONE (15:15)
[2017-11-24 15:21] VITALS: BP 214/60; PULSE 70; RESP 18; O2SAT 93
[2017-11-24 15:47] LABS: OVALOCYTES 1+ (NORMAL)
[2017-11-24] MEDS ORDERED: HYDROmorphone HCL PF 2 MG/ML VIAL IV PUSH ONE (17:00)
[2017-11-24] MEDS ORDERED: MAGNESIUM HYDROXIDE SUSP 30 ML CUP PO PRN (17:45)
[2017-11-24] MEDS ORDERED: ONDANSETRON HCL 4 MG/2 ML VIAL IVP PRN (17:45)
[2017-11-24] MEDS ORDERED: NALOXONE HCL 0.4 MG/ML AMP IV PUSH PRN (17:45)
[2017-11-24] MEDS ORDERED: ENALAPRILAT 1.25 MG/ML VIAL IV PUSH PRN (17:45)
[2017-11-24] MEDS ORDERED: ACETAMINOPHEN/HYDROcodone 325 MG/5 MG TAB PO PRN (17:45)
[2017-11-24] MEDS ORDERED: ACETAMINOPHEN/HYDROcodone 325 MG/10 MG TAB PO PRN (17:45)
[2017-11-24] MEDS ORDERED: cloNIDine HCL 0.1 MG TAB PO PRN (17:45)
[2017-11-24 18:00] VITALS: BP 177/69; PULSE 70; RESP 16; O2SAT 94
[2017-11-24 19:53] VITALS: BP 174/69
--- NOTE | 2017-11-24 19:54 | HHI.HP ---
[facility] Service [facility] ([place], [place])ists Primary Care Physician Juan Buenrostro M.D. Admission Diagnosis left hip pain, unable to ambulate, hypertensive urgency Diagnoses: Travel History International Travel<30 Days: No Contact w/Intl Traveler <30 Da: No Traveled to Known Affected Are: No History of Present Illness Mrs. Hanna is a 52 year old female. She came in to the hospital with a screw shooting pain in her left hip. She is unable to walk. She is even having problems moving in bed due to the pain. She is unable to lay flat in A Comfortable Position. She says that she will quite this. She cannot recall any trauma or twisting of the leg. She has not had events like this before. She says she has had gout in her lower extremities before. Typically these involve her feet or knees but have involve the hip before only at a lesser degree. She complains of no pain at her knees or feet, just left hip. X-ray shows no evidence of fracture. She cannot do further imaging due to the degree of pain and her inability to lie flat. Blood work shows no evidence of leukocytosis. CRP is significantly elevated suggesting count versus autoimmunity versus viral etiology. Hypertensive urgency is present and is likely related to pain. No other complaints this evening. No fevers. At baseline she has diabetes. Review of Systems Constitutional: DENIES: Fatigue, Fever, Chills Eyes: DENIES: Diplopia, Eye inflammation, Eye pain Ears, nose, mouth, throat: DENIES: Hearing loss, Vertigo, Nasal discharge Respiratory: DENIES: Cough, Snoring, Shortness of breath Cardiovascular: DENIES: Chest pain, Palpitations, Syncope, Dyspnea on Exertion Gastrointestinal: DENIES: Black stools, Bloody stools, Constipation Musculoskeletal: COMPLAINS OF: Joint pain, Stiffness, DENIES: Muscle aches Integumentary: DENIES: Abnormal pigmentation, Pruritus, Rash, Nail changes Hematologic/lymphatic: DENIES: Bruising, Lymphadenopathy Immunologic/allergic: DENIES: Eczema, Urticaria Neurologic: DENIES: Abnormal gait, Headache, Paresthesias Psychiatric: DENIES: Anxiety, Confusion, Hallucinations Past Family Social History Past Medical History Osteoarthritis Gout History of anemia Gen. anxiety disorder Atrial fibrillation Hypertension Congestive heart failure Diabetes mellitus type 2 History of DVT at left leg Irritable bowel syndrome Gastroesophageal reflux disease Headache history COPD Asthma Sleep apnea Sickle cell trait (carrier) History of gastric ulcer Past Surgical History Tubal ligation Tooth extraction Tonsillectomy Stent and left leg Fasciotomy of left leg History of debridement of abscess, not specified Reported Medications Reported Meds & Active Scripts Active Nifedipine ER (Nifedipine) 90 Mg Tab 90 Mg PO DAILY 30 Days Coumadin (Warfarin) 4 Mg Tab 4 Mg PO DAILY@1600 30 Days Percocet (Oxycodone-Acetaminophen) 10-325 mg Tab 1 Tab PO Q6H PRN Bumetanide 1 Mg Tab 1 Mg PO BID Lipitor (Atorvastatin Calcium) 40 Mg Tab 40 Mg PO HS Reported [Fish Oil] 1,000 Mg PO DAILY Creon (Pancrelipase) 36,000-114,000-180,000 Units Cap 1 Cap PO TIDPC Novolin R Inj (Insulin Human Regular) 1,000 Unit/10 Ml Vial 12 Units SQ TID Gabapentin 800 Mg Tab 800 Mg PO BID Methocarbamol 750 Mg Tab 750 Mg PO TID Losartan (Losartan Potassium) 100 Mg Tab 100 Mg PO DAILY Vitamin D3 (Cholecalciferol) 5,000 Unit Cap 5,000 Units PO DAILY Glipizide 10 Mg Tab 10 Mg PO BIDAC Take 30 minutes before a meal Lantus Inj (Insulin Glargine) 1,000 Unit/10 Ml Vial 50 Units SQ BID Allergies: Coded Allergies: Sulfa (Sulfonamide Antibiotics) (Verified Allergy, Severe, HIVES, 11/24/17) ibuprofen (Verified Allergy, Severe, MESSES WITH KIDNEYS, 11/24/17) egg (Verified Allergy, Intermediate, Very Upset Stomach, 11/24/17) milk (Verified Allergy, Unknown, 11/24/17) Family History Coronary artery disease in father Diabetes mellitus type 2, coronary artery disease, CHF in mother Social History Alcohol Use: No Tobacco Use: No (QUIT 2014) Substance Use: No Physical Exam Vital Signs Vital Signs Date Time Temp Pulse Resp B/P (MAP) Pulse Ox O2 Delivery O2 Flow Rate FiO2 11/24/17 18:00 70 16 177/69 (105) 94 Nasal Cannula 2.00 11/24/17 17:30 18 11/24/17 17:26 86 Nasal Cannula 2.00 11/24/17 16:00 18 11/24/17 15:48 16 11/24/17 15:21 70 18 214/60 (111) 93 11/24/17 14:03 22 96 Room Air 11/24/17 13:13 99.4 74 18 170/75 (106) 98 Physical Exam GENERAL: NAD, A&Ox3, obese HEAD: Normocephalic. NECK: Supple, trachea midline. No lymphadenopathy. EYES: No scleral icterus. No injection or drainage. CARDIOVASCULAR: Regular rate and rhythm without murmurs, gallops, or rubs. RESPIRATORY: Breath sounds equal bilaterally. No accessory muscle use. GASTROINTESTINAL: Abdomen soft, non-tender, nondistended. MUSCULOSKELETAL: No cyanosis, or edema. Severe pain and left hip. Patient guarding. Patient declines attempts at moving the hip. Slight movements to left foot cause pain at left hip. SKIN: Warm and dry. NEURO: No focal neurological deficitis. Laboratory Laboratory Tests Test 11/24/17 14:53 11/24/17 14:55 White Blood Count 10.4 Red Blood Count 4.69 Hemoglobin 10.3 Hematocrit 32.7 Mean Corpuscular Volume 69.7 Mean Corpuscular Hemoglobin 21.9 Mean Corpuscular Hemoglobin Concent 31.4 Red Cell Distribution Width 15.6 Platelet Count 282 Mean Platelet Volume 8.7 Neutrophils (%) (Auto) 75.2 Lymphocytes (%) (Auto) 16.3 Monocytes (%) (Auto) 6.3 Eosinophils (%) (Auto) 0.6 Basophils (%) (Auto) 1.6 Neutrophils # (Auto) 7.7 Lymphocytes # (Auto) 1.7 Monocytes # (Auto) 0.7 Eosinophils # (Auto) 0.1 Basophils # (Auto) 0.2 CBC Comment AUTO DIFF Differential Comment AUTO DIFF CONFIRMED Ovalocytes 1+ Prothrombin Time 18.8 Prothromb Time International Ratio 1.9 Activated Partial Thromboplast Time 44.1 Blood Urea Nitrogen 73 Creatinine 2.10 Random Glucose 242 Total Protein 8.5 Albumin 3.4 Calcium Level 9.2 Magnesium Level 2.2 Alkaline Phosphatase 159 Aspartate Amino Transf (AST/SGOT) 14 Alanine Aminotransferase (ALT/SGPT) 16 Total Bilirubin 0.2 Sodium Level 136 Potassium Level 4.5 Chloride Level 101 Carbon Dioxide Level 25.0 Anion Gap 10 Estimat Glomerular Filtration Rate 30 Total Creatine Kinase 103 C-Reactive Protein 16.30 Date/Time Source Procedure Growth Status 11/24/17 14:53 Blood Peripheral Aerobic Blood Culture Pending Received 11/24/17 14:53 Blood Peripheral Anaerobic Blood Culture Pending Received Result Diagram: 11/24/17 1453 11/24/17 1453 Septic Shock Reassessment Septic shock perfusion: reassessment completed Caprini VTE Risk Assessment Caprini VTE Risk Assessment: Mod/High Risk (score >= 2) Caprini Risk Assessment Model Point Value = 1 Point Value = 2 Point Value = 3 Point Value = 5 Age 41-60 Minor surgery BMI > 25 kg/m2 Swollen legs Varicose veins or History of unexplained or recurrent spontaneous Oral contraceptives or hormone replacement Sepsis (< 1 month) Serious lung disease, including pneumonia (< 1 month) Abnormal pulmonary function Acute myocardial infarction Congestive heart failure (< 1 month) History of inflammatory bowel disease Medical patient at bed rest Age 61-74 Arthroscopic surgery Major open surgery (> 45 min) Laparoscopic surgery (> 45 min) Malignancy Confined to bed (> 72 hours) Immobilizing plaster cast Central venous access Age >= 75 History of VTE Family history of VTE Factor V Leiden Prothrombin [id number] Lupus anticoagulant Anticardiolipin antibodies Elevated serum homocysteine Heparin-induced thrombocytopenia Other congenital or acquired thrombophilia Stroke (< 1 month) Elective arthroplasty Hip, pelvis, or leg fracture Acute spinal cord injury (< 1 month) Prophylaxis Regimen Total Risk Factor Score Risk Level Prophylaxis Regimen 0-1 Low Early ambulation 2 Moderate Order ONE of the following: *Sequential Compression Device (SCD) *Heparin 5000 units SQ BID 3-4 Higher Order ONE of the following medications: *Heparin 5000 units SQ TID *Enoxaparin/Lovenox 40 mg SQ daily (WT < 150 kg, CrCl > 30 mL/min) *Enoxaparin/Lovenox 30 mg SQ daily (WT < 150 kg, CrCl > 10-29 mL/min) *Enoxaparin/Lovenox 30 mg SQ BID (WT < 150 kg, CrCl > 30 mL/min) AND/OR *Sequential Compression Device (SCD) 5 or more Highest Order ONE of the following medications: *Heparin 5000 units SQ TID (Preferred with Epidurals) *Enoxaparin/Lovenox 40 mg SQ daily (WT < 150 kg, CrCl > 30 mL/min) *Enoxaparin/Lovenox 30 mg SQ daily (WT < 150 kg, CrCl > 10-29 mL/min) *Enoxaparin/Lovenox 30 mg SQ BID (WT < 150 kg, CrCl > 30 mL/min) AND *Sequential Compression Device (SCD) Assessment and Plan Problem List: (1) Gout ICD Code: M10.9 - Gout Status: Acute (2) Hypertensive urgency ICD Code: I16.0 - Hypertensive urgency (3) Left hip pain ICD Code: M25.552 - Pain in left hip (4) Inability to ambulate due to hip ICD Code: R26.2 - Difficulty in walking, not elsewhere classified Status: Acute Assessment and Plan 52-year-old female admitted secondary to severe left hip pain and hypertensive urgency Hypertensive urgency Baseline hypertension May be correlated with pain As needed enalapril As needed clonidine Follow blood pressures Treat pain Severe left hip pain History of gout CRP is elevated suggesting inflammatory etiology No evidence in CBC to suggest septic joint Start IV steroids Check uric acid level Monitor for improvement Narcotics for pain control Atrial fibrillation Congestive heart failure No exacerbations Follow on telemetry Continue baseline treatments Continue Coumadin Follow INR Diabetes mellitus type 2 Follow blood sugars Insulin sliding scale Diabetic diet Osteoarthritis History of anemia Gen. anxiety disorder History of DVT at left leg Irritable bowel syndrome Gastroesophageal reflux disease Headache history COPD Asthma Sleep apnea Sickle cell trait (carrier) History of gastric ulcer No acute exacerbation on these conditions Follow clinically No change to baseline treatments or management DVT prophylaxis Coumadin Samy Orantes MD Nov 24, 2017 19:54
[2017-11-24] MEDS ORDERED: PILL SPLITTER OTHER PRN (20:00)
[2017-11-24] MEDS ORDERED: ENOXAPARIN SODIUM 40 MG/0.4 ML SYRINGE SQ SCH (20:00)
[2017-11-24] MEDS ORDERED: GLUCAGON 1 MG/ML VIAL OTHER PRN (20:00)
[2017-11-24] MEDS ORDERED: DEXTROSE 50% IN WATER 50 ML VIAL(D50) IV PUSH PRN (20:00)
[2017-11-24] MEDS ORDERED: methylPREDNISolone SOD SUCC 125 MG/2 ML VIAL IV PUSH ONE (20:00)
[2017-11-24 20:10] VITALS: BP 140/62; PULSE 67; RESP 20; TEMP 99.3; O2SAT 99
[2017-11-24] MEDS: SODIUM CHLORIDE 0.9% FLUSH 10 ML FLUSH IV FLUSH SCH (20:35)
[2017-11-24] MEDS: BUMETANIDE 1 MG TAB PO SCH (20:37)
[2017-11-24] MEDS: GABAPENTIN 400 MG CAP PO SCH (20:37)
[2017-11-24] MEDS: ATORVASTATIN 40 MG TAB PO SCH (20:37)
[2017-11-24] MEDS: INSULIN ASPART SUPPLEMENTAL SCALE SQ SCH (20:38)
[2017-11-24] MEDS: INSULIN DETEMIR 100 UNITS/ML VIAL SQ SCH (20:38)
[2017-11-24] MEDS: SODIUM CHLORIDE 0.9% FLUSH 10 ML FLUSH IV FLUSH PRN (22:50)
[2017-11-24] MEDS: HYDROmorphone HCL PF 2 MG/ML VIAL IV PUSH PRN (22:50)
[2017-11-25] VITALS: BP 133/59; PULSE 68; RESP 20; TEMP 99; O2SAT 96
[2017-11-25] MEDS: HYDROmorphone HCL PF 2 MG/ML VIAL IV PUSH PRN ×4 (02:56→20:05)
[2017-11-25 04:00] VITALS: BP 145/65; PULSE 67; RESP 20; TEMP 97.4; O2SAT 97
[2017-11-25] MEDS: methylPREDNISolone SOD SUCC 40 MG/1 ML VIAL IV PUSH SCH ×3 (04:38→19:51)
[2017-11-25] MEDS: SODIUM CHLORIDE 0.9% FLUSH 10 ML FLUSH IV FLUSH PRN ×3 (04:39→22:07)
[2017-11-25 06:40] LABS: AUTOMATED NEUTROPHIL # 9.4 TH/MM3 (1.8-7.7); BASOPHIL % 0.1 % (0.0-2.0); EOSINOPHIL % 0.1 % (0.0-4.0); HEMATOCRIT 33.5 % (35.0-46.0); HEMOGLOBIN 10.3 GM/DL (11.6-15.3); LYMPH % 7.2 % (9.0-44.0); LYMPHOCYTE # 0.7 TH/MM3 (1.0-4.8); MEAN CELL VOLUME 70.7 FL (80.0-100.0); MEAN CORPUSCULAR HEMOGLOBIN 21.9 PG (27.0-34.0); MEAN CORPUSCULAR HGB CONC 30.9 % (32.0-36.0); MEAN PLATELET VOLUME 9.4 FL (7.0-11.0); MONO % 0.4 % (0.0-8.0); NEUT % 92.2 % (16.0-70.0); PLATELET COUNT 271 TH/MM3 (150-450); RED BLOOD COUNT 4.73 MIL/MM3 (4.00-5.30); RED CELL DISTRIBUTION WIDTH 15.7 % (11.6-17.2); WHITE BLOOD COUNT 10.1 TH/MM3 (4.0-11.0)
[2017-11-25 06:45] LABS: CHLORIDE 102 MEQ/L (98-107); SODIUM (NA) 137 MEQ/L (136-145)
[2017-11-25 06:49] LABS: INTERNATIONAL NORMALIZED RATIO 1.7 RATIO
[2017-11-25 06:50] LABS: CALCIUM 9.3 MG/DL (8.5-10.1)
[2017-11-25 06:51] LABS: ALBUMIN 3.1 GM/DL (3.4-5.0); BICARBONATE 25.6 MEQ/L (21.0-32.0); BLOOD UREA NITROGEN 71 MG/DL (7-18); GLUCOSE,RANDOM 331 MG/DL (74-106)
[2017-11-25 06:54] LABS: ALT (GPT) 15 U/L (10-53); AST (GOT) 12 U/L (15-37); GLOMERULAR FILTRATION RATE 31 ML/MIN (>89)
[2017-11-25 06:55] LABS: TOTAL BILIRUBIN ADULT 0.4 MG/DL (0.2-1.0)
[2017-11-25 06:56] LABS: TOTAL PROTEIN 8.3 GM/DL (6.4-8.2)
[2017-11-25 06:57] LABS: ALKALINE PHOSPHATASE 135 U/L (45-117)
[2017-11-25 08:00] VITALS: BP 153/58; PULSE 73; RESP 20; TEMP 97.6; O2SAT 98
[2017-11-25] MEDS: INSULIN ASPART SUPPLEMENTAL SCALE SQ SCH ×4 (08:41→22:07)
[2017-11-25] MEDS: INSULIN ASPART 1,000 UNITS/10 ML VIAL SQ SCH ×3 (08:41→17:16)
[2017-11-25] MEDS: METHOCARBAMOL 500 MG TAB PO SCH ×3 (08:42→17:17)
[2017-11-25] MEDS: LOSARTAN 50 MG TAB PO SCH (08:45)
[2017-11-25] MEDS: CHOLECALCIFEROL (VIT D3) 5000 UNIT CAP PO SCH (08:46)
[2017-11-25] MEDS: GABAPENTIN 400 MG CAP PO SCH ×2 (08:46→22:08)
[2017-11-25] MEDS: SODIUM CHLORIDE 0.9% FLUSH 10 ML FLUSH IV FLUSH SCH ×2 (08:46→19:51)
[2017-11-25] MEDS: BUMETANIDE 1 MG TAB PO SCH ×2 (08:46→22:08)
[2017-11-25] MEDS: INSULIN DETEMIR 100 UNITS/ML VIAL SQ SCH ×2 (08:47→22:08)
[2017-11-25] MEDS ORDERED: FISH OIL 1000 MG PO SCH (09:00)
[2017-11-25] MEDS: NIFEdipine 90 MG SUSTAINED RELEASE TAB PO SCH (09:47)
[2017-11-25] MEDS: LIPASE/PROTEASE/AMYLASE (12,000/38,000/60,000) CAP PO SCH ×3 (09:48→17:18)
--- NOTE | 2017-11-25 11:22 | HHI.PR ---
Subjective Remarks Mrs. Hanna still has persistent pain today. She does say that she will try to work with physical therapy and use pain treatments. Findings showed elevated uric acid which is suggestive of gout. No signs of bacterial infection. Objective Vital Signs Date Time Temp Pulse Resp B/P (MAP) Pulse Ox O2 Delivery O2 Flow Rate FiO2 11/25/17 08:46 18 11/25/17 08:00 97.6 73 20 153/58 (89) 98 11/25/17 04:00 97.4 67 20 145/65 (91) 97 11/25/17 00:00 99.0 68 20 133/59 (83) 96 11/24/17 20:10 99.3 67 20 140/62 (88) 99 11/24/17 19:53 77 18 174/69 (104) 98 2.00 11/24/17 18:00 70 16 177/69 (105) 94 Nasal Cannula 2.00 11/24/17 17:30 18 11/24/17 17:26 86 Nasal Cannula 2.00 11/24/17 16:00 18 11/24/17 15:48 16 11/24/17 15:21 70 18 214/60 (111) 93 11/24/17 14:03 22 96 Room Air 11/24/17 13:13 99.4 74 18 170/75 (106) 98 I/O 11/24/17 11/24/17 11/24/17 11/25/17 11/25/17 11/25/17 07:00 15:00 23:00 07:00 15:00 23:00 Intake Total 240 ml 300 ml Balance 240 ml 300 ml Intake Oral 240 ml 300 ml # Voids 0 # Bowel Movements 0 Result Diagram: 11/25/17 0530 11/25/17 0530 Objective Remarks GENERAL: NAD, A&Ox3 HEAD: Normocephalic. NECK: Supple, trachea midline. No lymphadenopathy. EYES: No scleral icterus. No injection or drainage. CARDIOVASCULAR: Regular rate and rhythm without murmurs, gallops, or rubs. RESPIRATORY: Breath sounds equal bilaterally. No accessory muscle use. GASTROINTESTINAL: Abdomen soft, non-tender, nondistended. MUSCULOSKELETAL: No cyanosis, or edema. Decreased pain with range of motion at left leg which is located at the left hip. SKIN: Warm and dry. NEURO: No focal neurological deficitis. A/P Problem List: (1) Diabetes mellitus ICD Code: E11.9 - Type 2 diabetes mellitus without complications Status: Chronic (2) CHF exacerbation ICD Code: I50.9 - Heart failure, unspecified Status: Acute (3) Gout ICD Code: M10.9 - Gout, unspecified (4) Left hip pain ICD Code: M25.552 - Pain in left hip (5) Inability to ambulate due to hip ICD Code: R26.2 - Difficulty in walking, not elsewhere classified Status: Acute Assessment and Plan 52-year-old female admitted secondary to severe left hip pain and hypertensive urgency Hypertensive urgency Baseline hypertension Improving May be correlated with pain As needed enalapril As needed clonidine Follow blood pressures Treat pain Severe left hip pain Gout exacerbation Uric acid level was positive CRP is elevated suggesting inflammatory etiology No evidence in CBC to suggest septic joint Continue IV steroids Begin allopurinol Monitor for improvement Narcotics for pain control Start physical therapy Atrial fibrillation Congestive heart failure No exacerbations Follow on telemetry Continue baseline treatments Continue Coumadin Follow INR Diabetes mellitus type 2 Follow blood sugars Insulin sliding scale Diabetic diet Osteoarthritis History of anemia Gen. anxiety disorder History of DVT at left leg Irritable bowel syndrome Gastroesophageal reflux disease Headache history COPD Asthma Sleep apnea Sickle cell trait (carrier) History of gastric ulcer No acute exacerbation on these conditions Follow clinically No change to baseline treatments or management DVT prophylaxis Coumadin continued Samy Orantes MD Nov 25, 2017 11:22
[2017-11-25] MEDS ORDERED: ALLOPURINOL 300 MG TAB PO ONE (11:30)
[2017-11-25 12:00] VITALS: BP_SYST 119; BP_SYST 152; BP_DIAS 60; BP_DIAS 72; PULSE 68; PULSE 92; RESP 18; RESP 20; TEMP 97.4; TEMP 97.6; O2SAT 95
[2017-11-25 16:00] VITALS: BP 154/66; PULSE 87; RESP 20; TEMP 98.1; O2SAT 98
[2017-11-25] MEDS: WARFARIN SOD 4 MG TAB PO SCH (17:17)
[2017-11-25] MEDS: ENOXAPARIN SODIUM 30 MG/0.3 ML SYRINGE SQ SCH (19:51)
[2017-11-25 20:00] VITALS: BP 136/62; PULSE 66; RESP 17; TEMP 98.5; O2SAT 96
[2017-11-25] MEDS: ATORVASTATIN 40 MG TAB PO SCH (22:08)
[2017-11-26] VITALS: BP 131/72; PULSE 68; RESP 18; TEMP 98.2; O2SAT 95
[2017-11-26] MEDS: SODIUM CHLORIDE 0.9% FLUSH 10 ML FLUSH IV FLUSH PRN ×3 (01:32→17:26)
[2017-11-26] MEDS: HYDROmorphone HCL PF 2 MG/ML VIAL IV PUSH PRN ×3 (01:32→17:25)
[2017-11-26] MEDS: methylPREDNISolone SOD SUCC 40 MG/1 ML VIAL IV PUSH SCH ×3 (04:08→20:47)
[2017-11-26 07:50] VITALS: BP 123/60; PULSE 69; RESP 20; TEMP 97.2; O2SAT 97
[2017-11-26] MEDS: INSULIN DETEMIR 100 UNITS/ML VIAL SQ SCH ×2 (08:43→20:47)
[2017-11-26] MEDS: INSULIN ASPART 1,000 UNITS/10 ML VIAL SQ SCH ×3 (08:44→17:22)
[2017-11-26] MEDS: SODIUM CHLORIDE 0.9% FLUSH 10 ML FLUSH IV FLUSH SCH ×2 (08:45→20:48)
[2017-11-26] MEDS: INSULIN ASPART SUPPLEMENTAL SCALE SQ SCH ×4 (08:45→21:02)
[2017-11-26] MEDS: CHOLECALCIFEROL (VIT D3) 5000 UNIT CAP PO SCH (08:45)
[2017-11-26] MEDS: LIPASE/PROTEASE/AMYLASE (12,000/38,000/60,000) CAP PO SCH ×3 (08:45→17:22)
[2017-11-26] MEDS: NIFEdipine 90 MG SUSTAINED RELEASE TAB PO SCH (08:46)
[2017-11-26] MEDS: LOSARTAN 50 MG TAB PO SCH (08:46)
[2017-11-26] MEDS: BUMETANIDE 1 MG TAB PO SCH ×2 (08:46→20:48)
[2017-11-26] MEDS: METHOCARBAMOL 500 MG TAB PO SCH ×3 (08:46→17:22)
[2017-11-26] MEDS: GABAPENTIN 400 MG CAP PO SCH ×2 (08:46→20:48)
[2017-11-26] MEDS ORDERED: ALLOPURINOL 100 MG TAB PO SCH (09:00)
--- NOTE | 2017-11-26 10:27 | HHI.PR ---
Subjective Remarks Pain improving, but still dependent on IV Dilaudid for control. Ambulation improving, but only short distances without demonstration of steady ambulation. No new complaints from patient. Objective Vital Signs Date Time Temp Pulse Resp B/P (MAP) Pulse Ox O2 Delivery O2 Flow Rate FiO2 11/26/17 07:50 97.2 69 20 123/60 (81) 97 11/26/17 00:00 98.2 68 18 131/72 (91) 95 11/25/17 20:00 98.5 66 17 136/62 (86) 96 11/25/17 18:18 18 11/25/17 16:00 98.1 87 20 154/66 (95) 98 11/25/17 15:28 18 11/25/17 12:00 97.4 68 20 152/72 (98) 95 11/25/17 12:00 97.6 92 18 119/60 (79) 95 I/O 11/25/17 11/25/17 11/25/17 11/26/17 11/26/17 11/26/17 07:00 15:00 23:00 07:00 15:00 23:00 Intake Total 240 ml 1050 ml 300 ml Output Total 900 ml Balance 240 ml 150 ml 300 ml Intake Oral 240 ml 1050 ml 300 ml Output Urine Total 900 ml # Voids 0 2 # Bowel Movements 0 Result Diagram: 11/25/17 0530 11/25/17 0530 Objective Remarks GENERAL: NAD, A&Ox3 HEAD: Normocephalic. NECK: Supple, trachea midline. No lymphadenopathy. EYES: No scleral icterus. No injection or drainage. CARDIOVASCULAR: Regular rate and rhythm without murmurs, gallops, or rubs. RESPIRATORY: Breath sounds equal bilaterally. No accessory muscle use. GASTROINTESTINAL: Abdomen soft, non-tender, nondistended. MUSCULOSKELETAL: No cyanosis, or edema. Pain with decreased range of motion at left leg which is located at the left hip. SKIN: Warm and dry. NEURO: No focal neurological deficitis. A/P Problem List: (1) Diabetes mellitus ICD Code: E11.9 - Type 2 diabetes mellitus without complications Status: Chronic (2) CHF exacerbation ICD Code: I50.9 - Heart failure, unspecified Status: Acute (3) Gout ICD Code: M10.9 - Gout, unspecified (4) Left hip pain ICD Code: M25.552 - Pain in left hip (5) Inability to ambulate due to hip ICD Code: R26.2 - Difficulty in walking, not elsewhere classified Status: Acute Assessment and Plan 52-year-old female admitted secondary to severe left hip pain and hypertensive urgency Hypertensive urgency Baseline hypertension Resolved May have been correlated with pain As needed enalapril As needed clonidine Follow blood pressures Treat pain Severe left hip pain Gout exacerbation Improving slowly Not yet ambulating well Uric acid level was positive CRP is elevated suggesting inflammatory etiology No evidence in CBC to suggest septic joint Continue IV steroids Begin allopurinol Monitor for improvement Narcotics for pain control Start physical therapy Atrial fibrillation Congestive heart failure No exacerbations Follow on telemetry Continue baseline treatments Continue Coumadin Follow INR Diabetes mellitus type 2 Follow blood sugars Insulin sliding scale Diabetic diet Osteoarthritis History of anemia Gen. anxiety disorder History of DVT at left leg Irritable bowel syndrome Gastroesophageal reflux disease Headache history COPD Asthma Sleep apnea Sickle cell trait (carrier) History of gastric ulcer No acute exacerbation on these conditions Follow clinically No change to baseline treatments or management DVT prophylaxis Coumadin continued Samy Orantes MD Nov 26, 2017 10:27
[2017-11-26 11:50] VITALS: BP 143/62; PULSE 94; RESP 20; TEMP 98.1; O2SAT 95
[2017-11-26 15:50] VITALS: BP 140/68; PULSE 76; RESP 20; TEMP 97.5
[2017-11-26] MEDS: WARFARIN SOD 4 MG TAB PO SCH (16:38)
[2017-11-26 20:00] VITALS: BP 133/60; PULSE 67; RESP 16; TEMP 97.9; O2SAT 95
[2017-11-26] MEDS: ENOXAPARIN SODIUM 30 MG/0.3 ML SYRINGE SQ SCH (20:48)
[2017-11-26] MEDS: ATORVASTATIN 40 MG TAB PO SCH (20:49)
[2017-11-27] VITALS: BP 134/61; PULSE 76; RESP 16; TEMP 98; O2SAT 93
[2017-11-27] MEDS: methylPREDNISolone SOD SUCC 40 MG/1 ML VIAL IV PUSH SCH ×2 (04:31→12:04)
[2017-11-27] MEDS: SODIUM CHLORIDE 0.9% FLUSH 10 ML FLUSH IV FLUSH PRN (04:31)
[2017-11-27 08:00] VITALS: BP 128/61; PULSE 63; RESP 18; TEMP 97.6; O2SAT 96
[2017-11-27] MEDS: INSULIN ASPART 1,000 UNITS/10 ML VIAL SQ SCH ×2 (08:58→12:03)
[2017-11-27] MEDS: INSULIN ASPART SUPPLEMENTAL SCALE SQ SCH ×2 (08:58→12:03)
[2017-11-27] MEDS: INSULIN DETEMIR 100 UNITS/ML VIAL SQ SCH (08:59)
[2017-11-27] MEDS: CHOLECALCIFEROL (VIT D3) 5000 UNIT CAP PO SCH (09:00)
[2017-11-27] MEDS: LOSARTAN 50 MG TAB PO SCH (09:00)
[2017-11-27] MEDS: METHOCARBAMOL 500 MG TAB PO SCH (09:00)
[2017-11-27] MEDS: BUMETANIDE 1 MG TAB PO SCH (09:00)
[2017-11-27] MEDS: GABAPENTIN 400 MG CAP PO SCH (09:00)
[2017-11-27] MEDS: SODIUM CHLORIDE 0.9% FLUSH 10 ML FLUSH IV FLUSH SCH (09:01)
[2017-11-27] MEDS: NIFEdipine 90 MG SUSTAINED RELEASE TAB PO SCH (09:19)
[2017-11-27] MEDS: LIPASE/PROTEASE/AMYLASE (12,000/38,000/60,000) CAP PO SCH (09:19)
[2017-11-27] MEDS ORDERED: OXYC15TA PO (10:35)
[2017-11-27] MEDS ORDERED: PRED10 PO (10:35)
[2017-11-27] MEDS ORDERED: ALLO100T PO (10:35)
[2017-11-27] MEDS ORDERED: WALKER/ADULT/FO1 MIS (10:38)
--- NOTE | 2017-11-27 10:43 | HHI.DS ---
Discharge Summary Admission Date Nov 24, 2017 at 17:40 Discharge Date: Nov 27, 2017 Admitting Diagnosis left hip pain, unable to ambulate, hypertensive urgency (1) Gout ICD Code: M10.9 - Gout Diagnosis: Principal Status: Acute (2) Hypertensive urgency ICD Code: I16.0 - Hypertensive urgency Diagnosis: Principal (3) Left hip pain ICD Code: M25.552 - Pain in left hip Diagnosis: Principal (4) Inability to ambulate due to hip ICD Code: R26.2 - Difficulty in walking, not elsewhere classified Diagnosis: Principal Status: Acute Procedures None Brief History - From Admission Mrs. Hanna is a 52 year old female. She came in to the hospital with a screw shooting pain in her left hip. She is unable to walk. She is even having problems moving in bed due to the pain. She is unable to lay flat in A Comfortable Position. She says that she will quite this. She cannot recall any trauma or twisting of the leg. She has not had events like this before. She says she has had gout in her lower extremities before. Typically these involve her feet or knees but have involve the hip before only at a lesser degree. She complains of no pain at her knees or feet, just left hip. X-ray shows no evidence of fracture. She cannot do further imaging due to the degree of pain and her inability to lie flat. Blood work shows no evidence of leukocytosis. CRP is significantly elevated suggesting count versus autoimmunity versus viral etiology. Hypertensive urgency is present and is likely related to pain. No other complaints this evening. No fevers. At baseline she has diabetes. CBC/BMP: 11/25/17 0530 11/25/17 0530 Significant Findings Laboratory Tests Test 11/24/17 14:53 11/24/17 14:55 11/25/17 05:30 Hemoglobin 10.3 GM/DL (11.6-15.3) 10.3 GM/DL (11.6-15.3) Hematocrit 32.7 % (35.0-46.0) 33.5 % (35.0-46.0) Mean Corpuscular Volume 69.7 FL (80.0-100.0) 70.7 FL (80.0-100.0) Mean Corpuscular Hemoglobin 21.9 PG (27.0-34.0) 21.9 PG (27.0-34.0) Mean Corpuscular Hemoglobin Concent 31.4 % (32.0-36.0) 30.9 % (32.0-36.0) Neutrophils (%) (Auto) 75.2 % (16.0-70.0) 92.2 % (16.0-70.0) Ovalocytes 1+ (NORMAL) Prothrombin Time 18.8 SEC (9.8-11.6) 17.0 SEC (9.8-11.6) Activated Partial Thromboplast Time 44.1 SEC (24.3-30.1) Blood Urea Nitrogen 73 MG/DL (7-18) 71 MG/DL (7-18) Creatinine 2.10 MG/DL (0.50-1.00) 2.00 MG/DL (0.50-1.00) Random Glucose 242 MG/DL (74-106) 331 MG/DL (74-106) Total Protein 8.5 GM/DL (6.4-8.2) 8.3 GM/DL (6.4-8.2) Alkaline Phosphatase 159 U/L (45-117) 135 U/L (45-117) Aspartate Amino Transf (AST/SGOT) 14 U/L (15-37) 12 U/L (15-37) Estimat Glomerular Filtration Rate 30 ML/MIN (>89) 31 ML/MIN (>89) Uric Acid 13.0 MG/DL (2.6-6.0) C-Reactive Protein 16.30 MG/DL (0.00-0.30) Lymphocytes (%) (Auto) 7.2 % (9.0-44.0) Neutrophils # (Auto) 9.4 TH/MM3 (1.8-7.7) Lymphocytes # (Auto) 0.7 TH/MM3 (1.0-4.8) Albumin 3.1 GM/DL (3.4-5.0) Hospital Course Mrs. Hanna 52-year-old female. She was admitted secondary to gout exacerbation including her left hip. She was unable to ambulate at time of admit and pain was severe and not able to be controlled with by mouth treatments. She was treated with steroids and allopurinol started. She has had improvement through time. Today she is able to ablate 100 feet and is controlling her pain with by mouth treatments. Medically stable for discharge to home today. Pt Condition on Discharge: Stable Discharge Disposition: Discharge Home Discharge Time: <= 30 minutes Discharge Instructions DIET: Follow Instructions for: As Tolerated, No Restrictions Activities you can perform: Regular-No Restrictions Follow up Referrals: PCP Follow-up - 2 Weeks New Medications: Allopurinol (Allopurinol) 100 Mg Tab 100 MG PO EVERY OTHER DAY for Gout, #30 TAB 0 Refills Oxycodone (Oxycodone) 15 Mg Tab 15 MG PO Q6H PRN for PAIN, #25 TAB 0 Refills Prednisone (Prednisone) 10 Mg Tab 10 MG PO DIRECTED for Inflammation, #14 TAB 0 Refills 2 tabs by mouth Daily, Day 1 to 4 1 tabs by mouth Daily, Day 5 to 8 1/2 tabs by mouth Daily, Day 9 to 12 Then stop Walker/Adult/Folding (Walker/Adult/Folding) 1 Mis Mis EA .XX DIRECTED, #1 0 Refills Continued Medications: Atorvastatin (Lipitor) 40 Mg Tab 40 MG PO HS, #30 TAB 1 Refill Bumetanide (Bumetanide) 1 Mg Tab 1 MG PO BID, #30 TAB 0 Refills Cholecalciferol (Vitamin D3) 5,000 Unit Cap 5000 UNITS PO DAILY for Nutritional Supplement, #30 CAP 0 Refills Gabapentin (Gabapentin) 800 Mg Tab 800 MG PO BID, #90 TAB 0 Refills Glipizide (Glipizide) 10 Mg Tab 10 MG PO BIDAC for Blood Sugar Management, #60 TAB 0 Refills Take 30 minutes before a meal Insulin Glargine Inj (Lantus Inj) 1,000 Unit/10 Ml Vial 50 UNITS SQ BID for Blood Sugar Management, VIAL 0 Refills Insulin Human Regular Inj (Novolin R Inj) 1,000 Unit/10 Ml Vial 12 UNITS SQ TID for Blood Sugar Management, #1 INJECTION 0 Refills Losartan (Losartan) 100 Mg Tab 100 MG PO DAILY for Blood Pressure Management, #30 TAB 0 Refills Methocarbamol (Methocarbamol) 750 Mg Tab 750 MG PO TID for Muscle Spasm, #120 TAB 0 Refills Nifedipine (Nifedipine ER) 90 Mg Tab 90 MG PO DAILY for hypertension for 30 Days, #30 TAB Pancrelipase (Creon) 36,000-114,000-180,000 Units Cap 1 CAP PO TIDPC for Digestive Aid, #90 CAP 0 Refills Warfarin (Coumadin) 4 Mg Tab 4 MG PO DAILY@1600 for anticoagulation for 30 Days, #30 TAB [Fish Oil] () 1000 MG PO DAILY Discontinued Medications: Oxycodone-Acetaminophen (Percocet) 10-325 mg Tab 1 TAB PO Q6H PRN for PAIN, #10 TAB 0 Refills Samy Orantes MD Nov 27, 2017 10:42
[2017-11-27 12:00] VITALS: BP 140/64; PULSE 69; RESP 18; TEMP 98.3; O2SAT 95
== END 2017-11-27 13:49 | disposition home or self-care (01) ==
LOC: PHEFT 13:08 → PHEDA 17:40 → PH3A 19:50
PROVIDERS: ADMIT Hospitalist; ATTEND Hospitalist
DX: M10.9 Gout, unspecified (principal); I16.0 Hypertensive urgency; M25.552 Pain in left hip; R26.2 Difficulty in walking, not elsewhere classified; I11.0 Hypertensive heart disease with heart failure; I50.9 Heart failure, unspecified; I48.91 Unspecified atrial fibrillation; E11.9 Type 2 diabetes mellitus without complications; K21.9 Gastro-esophageal reflux disease without esophagitis; J44.9 Chronic obstructive pulmonary disease, unspecified; K58.9 Irritable bowel syndrome, unspecified; G47.30 Sleep apnea, unspecified; D57.1 Sickle-cell disease without crisis; F40.240 Claustrophobia; M85.80 Other specified disorders of bone density and structure, unspecified site; M19.90 Unspecified osteoarthritis, unspecified site; Z86.718 Personal history of other venous thrombosis and embolism; Z87.11 Personal history of peptic ulcer disease; Z79.899 Other long term (current) drug therapy; Z79.01 Long term (current) use of anticoagulants
CPT/HCPCS: 73502; 80053; 82550; 82948; 83735; 84550; 85025; 85610; 85730; 86140; 87040; 96372; 96374; 96375; 96376; 97110; 97116; 97162; 99285; G0378; G8987; G8988; J1170; J1650; J1815; J2405; J2920; J2930

== ENCOUNTER 2017-12-29 20:31 | Observation (INO) | payer OTHER, MEDICAID ==
[~2017-12-29] VITALS: Ht 158.8 cm; Wt 122.1 kg
[~2017-12-29 20:31] MED LIST changes: +ALLO100T PO; +OXYC15TA PO; -PERC10TA27 PO; +PRED10 PO; +WALKER/ADULT/FO1 MIS
[2017-12-29 20:48] VITALS: BP 163/93; PULSE 64; RESP 20; TEMP 98.7; O2SAT 97
--- NOTE | 2017-12-29 22:08 | PD ---
HPI Chief Complaint: Edema Time Seen by Provider: 21:47 Travel History International Travel<30 days: No Contact w/Intl Traveler<30days: No Traveled to known affect area: No History of Present Illness HPI The patient was seen and examined in the presence of the nurse. This patient complains of shortness of breath and chest pain. Duration 2 days. Severity is moderate. Patient's pain was in the center sternum. Described as a pressure and a burning sensation. She denies cough or fever. She has history of chronic leg swelling and diuretics but reports her leg swelling is a bit worse than usual. No alleviating factors. No exacerbating factors. She reports compliance with diuretics. PFSH Past Medical History Hx Anticoagulant Therapy: Yes (COUMADIN ) Anemia: Yes Arthritis: Yes Asthma: Yes Atrial Fibrillation: Yes Autoimmune Disease: No Blood Disorders: No Anxiety: Yes Depression: No Heart Rhythm Problems: Yes (afib) Cancer: No Cardiovascular Problems: Yes (CHF ) High Cholesterol: Yes Chemotherapy: No Chest Pain: Yes Congestive Heart Failure: Yes COPD: Yes Cerebrovascular Accident: No Diabetes: Yes Diminished Hearing: No Deep Vein Thrombosis: Yes (LEFT LEG) Endocrine: Yes Gastrointestinal Disorders: Yes (IBS) GERD: Yes Gout: Yes Genitourinary: Yes Headaches: Yes Hepatitis: No Hiatal Hernia: No Heparin Induced Thrombocytopen: No Hypertension: Yes Immune Disorder: No Implanted Vascular Access Dvce: No Kidney Stones: No Musculoskeletal: Yes Neurologic: Yes Psychiatric: Yes Reproductive: No Respiratory: Yes (hx of copd, asthma) Integumentary: Yes Immunizations Current: Yes Migraines: No Myocardial Infarction: No Pneumonia: Yes Radiation Therapy: No Renal Failure: No Seizures: No Sickle Cell Disease: Yes (carries trait) Sleep Apnea: Yes Thyroid Disease: No Ulcer: Yes PNEUMOCCOCAL Vaccine (Year): 2 Menopausal: Yes : 5 Para: 4 Miscarriage: 1 Tubal Ligation: Yes Past Surgical History Abdominal Surgery: No AICD: No Appendectomy: No Arteriovenous Shunt: No Body Medical Devices: stent, lle. Cardiac Surgery: No Cholecystectomy: No Ear Surgery: No Endocrine Surgery: No Eye Surgery: No Genitourinary Surgery: No Gynecologic Surgery: Yes (tubal ligation) Insulin Pump: No Joint Replacement: No Neurologic Surgery: No Oral Surgery: Yes (tooth extraction) Pacemaker: No Thoracic Surgery: No Tonsillectomy: Yes Other Surgery: Yes (DEBRIDEMENT OF ABSCESS, STENT IN LT LEG, FASCIOTOMY LEFT LEG) Social History Alcohol Use: No Tobacco Use: No (QUIT 2014) Substance Use: No Allergies-Medications (Allergen,Severity, Reaction): Coded Allergies: Sulfa (Sulfonamide Antibiotics) (Verified Allergy, Severe, HIVES, 11/24/17) ibuprofen (Verified Allergy, Severe, MESSES WITH KIDNEYS, 11/24/17) egg (Verified Allergy, Intermediate, Very Upset Stomach, 11/24/17) milk (Verified Allergy, Unknown, 11/24/17) Reported Meds & Prescriptions Reported Meds & Active Scripts Active Walker/Adult/Folding (Device) 1 Mis Mis Ea .XX DIRECTED Prednisone 10 Mg Tab 10 Mg PO DIRECTED 2 tabs by mouth Daily, Day 1 to 4 1 tabs by mouth Daily, Day 5 to 8 1/2 tabs by mouth Daily, Day 9 to 12 Then stop Allopurinol 100 Mg Tab 100 Mg PO EVERY OTHER DAY Oxycodone (Oxycodone HCl) 15 Mg Tab 15 Mg PO Q6H PRN Nifedipine ER (Nifedipine) 90 Mg Tab 90 Mg PO DAILY 30 Days Coumadin (Warfarin) 4 Mg Tab 4 Mg PO DAILY@1600 30 Days Bumetanide 1 Mg Tab 1 Mg PO BID Lipitor (Atorvastatin Calcium) 40 Mg Tab 40 Mg PO HS Reported [Fish Oil] 1,000 Mg PO DAILY Creon (Pancrelipase) 36,000-114,000-180,000 Units Cap 1 Cap PO TIDPC Novolin R Inj (Insulin Human Regular) 1,000 Unit/10 Ml Vial 12 Units SQ TID Gabapentin 800 Mg Tab 800 Mg PO BID Methocarbamol 750 Mg Tab 750 Mg PO TID Losartan (Losartan Potassium) 100 Mg Tab 100 Mg PO DAILY Vitamin D3 (Cholecalciferol) 5,000 Unit Cap 5,000 Units PO DAILY Glipizide 10 Mg Tab 10 Mg PO BIDAC Take 30 minutes before a meal Lantus Inj (Insulin Glargine) 1,000 Unit/10 Ml Vial 50 Units SQ BID Review of Systems General / Constitutional: No: Fever Eyes: No: Visual changes HENT: No: Headaches Cardiovascular: Positive: Chest Pain or Discomfort, Edema Respiratory: Positive: Shortness of Breath Gastrointestinal: No: Abdominal Pain Genitourinary: No: Dysuria Musculoskeletal: Positive: Edema, No: Pain Skin: No Rash Neurologic: No: Weakness Psychiatric: No: Depression Endocrine: No: Polydipsia Hematologic/Lymphatic: No: Easy Bruising Physical Exam Narrative GENERAL: Well-nourished, well-developed patient in no apparent distress. SKIN: Focused skin assessment reveals no rash and nodules. Skin is Warm and dry. HEAD: Atraumatic. Normocephalic. EYES: Pupils equal and round. No scleral icterus. No injection or drainage. ENT: No nasal bleeding or discharge. Mucous membranes pink and moist. NECK: Trachea midline. No JVD. CARDIOVASCULAR: Regular rate and rhythm. No murmur appreciated. RESPIRATORY: No accessory muscle use. Clear to auscultation. Breath sounds equal bilaterally. GASTROINTESTINAL: Abdomen soft, non-tender, nondistended. Hepatic and splenic margins not palpable. MUSCULOSKELETAL: Has had some amputation of toes. There are some surgical changes to the left lower leg. No clubbing. No cyanosis. No edema. NEUROLOGICAL: Awake and alert. No obvious cranial nerve deficits. Motor grossly within normal limits. Normal speech. PSYCHIATRIC: Appropriate mood and affect; insight and judgment normal. Data Data Last Documented VS Vital Signs Date Time Temp Pulse Resp B/P (MAP) Pulse Ox O2 Delivery O2 Flow Rate FiO2 12/29/17 22:09 20 95 Room Air 12/29/17 20:48 98.7 64 163/93 (116) Orders Orders Electrocardiogram (12/29/17 22:01) Basic Metabolic Panel (Bmp) (12/29/17 22:01) Ckmb (Isoenzyme) Profile (12/29/17 22:01) Complete Blood Count With Diff (12/29/17 22:01) Magnesium (Mg) (12/29/17 22:01) Prothrombin Time / Inr (Pt) (12/29/17 22:01) Act Partial Throm Time (Ptt) (12/29/17 22:01) Troponin I (12/29/17 22:01) Chest, Single Ap (12/29/17 22:01) Ecg Monitoring (12/29/17 22:01) Iv Access Insert/Monitor (12/29/17 22:01) Oximetry (12/29/17 22:01) Sodium Chloride 0.9% Flush (Ns Flush) (12/29/17 22:15) Acetamin-Hydrocod 325-5 Mg ([place] 5-325 (12/29/17 22:45) Furosemide Inj (Lasix Inj) (12/29/17 22:45) Labs Laboratory Tests Test 12/29/17 22:33 [facility] Medical Decision Making Medical Screen Exam Complete: Yes Emergency Medical Condition: Yes Medical Record Reviewed: Yes Differential Diagnosis Differential diagnosis includes PR, angina, pericarditis, pleurisy, GERD, CHF Narrative Course I have reviewed the patient's electronic medical record. Reviewed her cardiology consultation from 1 year ago. She had a normal myocardial perfusion scan in September 2016. At that time her EF was normal I reviewed her EKG which shows sinus bradycardia with PVCs. There is no ST elevation Extended cardiac monitoring shows sinus bradycardia with PVCs I reviewed her chest x-ray which shows minimal pulmonary vascular congestion with no pleural effusion IV placed and labs sent I gave her a pain pill at her request for chronic back pain. I gave her 40 mg IV Lasix She will be a telemetry observation for her chest pain. She has multiple risk factors for CAD. Diagnosis Primary Impression: Chest pain Qualified Codes: R07.9 - Chest pain, unspecified Additional Impressions: Acute exacerbation of congestive heart failure Qualified Codes: I50.33 - Acute on chronic diastolic (congestive) heart failure Bradycardia Admitting Information Admitting Physician Requests: Observation Willis Cleary MD Dec 29, 2017 22:08
[2017-12-29 22:09] VITALS: RESP 20; O2SAT 95
[2017-12-29] MEDS ORDERED: SODIUM CHLORIDE 0.9% FLUSH 10 ML FLUSH IVF PRN (22:15)
--- NOTE | 2017-12-29 22:27 | RADRPT ---
EXAM DATE/TIME: 12/29/2017 22:02 [facility] COMPARISON: CHEST SINGLE AP, April 13, 2017, 19:35. INDICATIONS : Substernal chest pain with shortness of breath. MEDICAL HISTORY : Chronic obstructive pulmonary disease. Congestive heart failure. Hypertension. SURGICAL HISTORY : None. ENCOUNTER: Initial ACUITY: 1 day PAIN SCORE: 4/10 LOCATION: chest substernal. FINDINGS: A single view of the chest demonstrates basilar density, probably dependent atelectasis. Cardiomegaly . No effusion or pneumothorax. CONCLUSION: 1. Cardiomegaly with probable basilar atelectasis. There may be some mild pulmonary vascular congesti on as well. No effusion or pneumothorax. Travis Bellamy MD on December 29, 2017 at 22:25 Board Certified Radiologist. This report was verified electronically.
[2017-12-29 22:43] LABS: AUTOMATED NEUTROPHIL # 5.2 TH/MM3 (1.8-7.7); BASOPHIL % 0.4 % (0.0-2.0); EOSINOPHIL # 0.1 TH/MM3 (0-0.4); EOSINOPHIL % 1.8 % (0.0-4.0); HEMATOCRIT 33.1 % (35.0-46.0); HEMOGLOBIN 10.5 GM/DL (11.6-15.3); LYMPH % 25.7 % (9.0-44.0); MEAN CELL VOLUME 70.6 FL (80.0-100.0); MEAN CORPUSCULAR HEMOGLOBIN 22.3 PG (27.0-34.0); MEAN CORPUSCULAR HGB CONC 31.6 % (32.0-36.0); MEAN PLATELET VOLUME 8.4 FL (7.0-11.0); MONOCYTE # 0.4 TH/MM3 (0-0.9); NEUT % 67.1 % (16.0-70.0); PLATELET COUNT 351 TH/MM3 (150-450); RED BLOOD COUNT 4.69 MIL/MM3 (4.00-5.30); RED CELL DISTRIBUTION WIDTH 18.8 % (11.6-17.2); WHITE BLOOD COUNT 7.7 TH/MM3 (4.0-11.0)
[2017-12-29] MEDS ORDERED: ACETAMINOPHEN/HYDROcodone 325 MG/5 MG TAB PO ONE (22:45)
[2017-12-29] MEDS ORDERED: FUROSEMIDE 40 MG/4 ML VIAL IV PUSH ONE (22:45)
[2017-12-29 22:53] LABS: CHLORIDE 106 MEQ/L (98-107); SODIUM (NA) 138 MEQ/L (136-145)
[2017-12-29 22:56] LABS: CALCIUM 9.3 MG/DL (8.5-10.1)
[2017-12-29 22:57] LABS: BICARBONATE 25.9 MEQ/L (21.0-32.0); BLOOD UREA NITROGEN 50 MG/DL (7-18); GLUCOSE,RANDOM 229 MG/DL (74-106); INTERNATIONAL NORMALIZED RATIO 1.7 RATIO; MAGNESIUM 2.1 MG/DL (1.5-2.5); PROTHROMBIN TIME - PATIENT 16.7 SEC (9.8-11.6)
[2017-12-29 23:00] LABS: GLOMERULAR FILTRATION RATE 31 ML/MIN (>89)
[2017-12-29 23:05] LABS: TROPONIN I LESS THAN 0.02 NG/ML (0.02-0.05)
[2017-12-29 23:10] LABS: OVALOCYTES 1+ (NORMAL)
--- NOTE | 2017-12-29 23:22 | PD ---
Physical Exam Narrative GENERAL: SKIN: Warm and dry. HEAD: Atraumatic. Normocephalic. EYES: Pupils equal and round. No scleral icterus. No injection or drainage. ENT: No nasal bleeding or discharge. Mucous membranes pink and moist. NECK: Trachea midline. No JVD. CARDIOVASCULAR: Regular rate and rhythm. RESPIRATORY: No accessory muscle use. Bibasilar crackles noted. Good tidal volume bilaterally GASTROINTESTINAL: Abdomen soft, non-tender, nondistended. MUSCULOSKELETAL: Extremities without clubbing, cyanosis, bilateral lower extremity edema. No obvious deformities except for some amputated toes. NEUROLOGICAL: Awake and alert. No obvious cranial nerve deficits. Motor grossly within normal limits. Five out of 5 muscle strength in the arms and legs. Normal speech. PSYCHIATRIC: Appropriate mood and affect; insight and judgment normal. Data Data Last Documented VS Vital Signs Date Time Temp Pulse Resp B/P (MAP) Pulse Ox O2 Delivery O2 Flow Rate FiO2 12/29/17 22:09 20 95 Room Air 12/29/17 20:48 98.7 64 163/93 (116) Orders Orders Electrocardiogram (12/29/17 22:01) Basic Metabolic Panel (Bmp) (12/29/17 22:01) Ckmb (Isoenzyme) Profile (12/29/17 22:01) Complete Blood Count With Diff (12/29/17 22:) Magnesium (Mg) (12/29/17 22:01) Prothrombin Time / Inr (Pt) (12/29/17 22:01) Act Partial Throm Time (Ptt) (12/29/17 22:01) Troponin I (12/29/17 22:01) Chest, Single Ap (12/29/17 22:01) Ecg Monitoring (12/29/17 22:01) Iv Access Insert/Monitor (12/29/17 22:01) Oximetry (12/29/17 22:01) Sodium Chloride 0.9% Flush (Ns Flush) (12/29/17 22:15) Acetamin-Hydrocod 325-5 Mg ([place] 5-325 (12/29/17 22:45) Furosemide Inj (Lasix Inj) (12/29/17 22:45) Labs Laboratory Tests Test 12/29/17 22:33 White Blood Count 7.7 TH/MM3 Red Blood Count 4.69 MIL/MM3 Hemoglobin 10.5 GM/DL Hematocrit 33.1 % Mean Corpuscular Volume 70.6 FL Mean Corpuscular Hemoglobin 22.3 PG Mean Corpuscular Hemoglobin Concent 31.6 % Red Cell Distribution Width 18.8 % Platelet Count 351 TH/MM3 Mean Platelet Volume 8.4 FL Neutrophils (%) (Auto) 67.1 % Lymphocytes (%) (Auto) 25.7 % Monocytes (%) (Auto) 5.0 % Eosinophils (%) (Auto) 1.8 % Basophils (%) (Auto) 0.4 % Neutrophils # (Auto) 5.2 TH/MM3 Lymphocytes # (Auto) 2.0 TH/MM3 Monocytes # (Auto) 0.4 TH/MM3 Eosinophils # (Auto) 0.1 TH/MM3 Basophils # (Auto) 0.0 TH/MM3 CBC Comment AUTO DIFF Differential Comment AUTO DIFF CONFIRMED Ovalocytes 1+ Prothrombin Time 16.7 SEC Prothromb Time International Ratio 1.7 RATIO Activated Partial Thromboplast Time 38.6 SEC Blood Urea Nitrogen 50 MG/DL Creatinine 2.00 MG/DL Random Glucose 229 MG/DL Calcium Level 9.3 MG/DL Magnesium Level 2.1 MG/DL Sodium Level 138 MEQ/L Potassium Level 4.6 MEQ/L Chloride Level 106 MEQ/L Carbon Dioxide Level 25.9 MEQ/L Anion Gap 6 MEQ/L Estimat Glomerular Filtration Rate 31 ML/MIN Total Creatine Kinase 84 U/L Troponin I LESS THAN 0.02 NG/ML [facility] Medical Record Reviewed: Yes Supervised Visit with DIANE: No Narrative Course CBC shows no leukocytosis, mild anemia of 10/33, normal platelet count of 351, 000 and no left shift Coagulation profile has a PT of 16.7, INR 1.7, and a PTT of 38.6 consistent with mild coagulation, however not therapeutic. Electrolytes are all within normal limits with the exception of creatinine of 2.0 GFR of 31 and a glucose of 229. First set of cardiac enzymes are negative Chest x-ray read by radiologist as cardiomegaly with some mild vascular congestion no effusion or pneumothorax. Clinically consistent with mild CHF exacerbation Due to the patient's multiple cardiac risk patient will be admitted for chest pain rule out HI Diagnosis Primary Impression: Chest pain Qualified Codes: R07.9 - Chest pain, unspecified Additional Impressions: Bradycardia Acute exacerbation of congestive heart failure Qualified Codes: I50.33 - Acute on chronic diastolic (congestive) heart failure Admitting Information Admitting Physician Requests: Observation Bowen Daly MD Dec 29, 2017 23:22
[2017-12-30] MEDS ORDERED: SODIUM CHLORIDE 0.9% FLUSH 10 ML FLUSH IV FLUSH PRN
[2017-12-30] MEDS ORDERED: ACETAMINOPHEN 500 MG CPLT PO PRN
[2017-12-30] MEDS ORDERED: ONDANSETRON HCL 4 MG/2 ML VIAL IV PUSH PRN
[2017-12-30] MEDS: HEPARIN SODIUM - SQ 10,000 UNITS/ML VIAL SQ SCH ×2 (01:49→08:00)
[2017-12-30 01:52] VITALS: BP 141/60; PULSE 59
[2017-12-30 02:02] LABS: TROPONIN I LESS THAN 0.02 NG/ML (0.02-0.05)
[2017-12-30 02:13] VITALS: PULSE 61
[2017-12-30 02:15] VITALS: BP 155/69; PULSE 55; RESP 20; TEMP 97.1; O2SAT 95
[2017-12-30 04:15] VITALS: O2SAT 94
[2017-12-30 07:08] LABS: TROPONIN I LESS THAN 0.02 NG/ML (0.02-0.05)
--- NOTE | 2017-12-30 08:28 | EKG ---
Date Performed: 12/30/2017 Time Performed: 01:28:01 PTAGE: 52 years EKG: SINUS BRADYCARDIA with PVCs POSSIBLE ANTERIOR MYOCARDIAL INFARCTION ABNORMAL ECG No signifi cant change from prior electrocardiogram. PREVIOUS TRACING : 12/29/2017 22.11 DOCTOR: Dwight Sanders Interpretating Date/Time 12/30/2017 08:28:01
--- NOTE | 2017-12-30 08:28 | EKG ---
Date Performed: 12/30/2017 Time Performed: 04:18:04 PTAGE: 52 years EKG: SINUS BRADYCARDIA WITH OCCASIONAL ECTOPIC PREMATURE COMPLEXES POSSIBLE LEFT ATRIAL ENLARGEM ENT POSSIBLE ANTERIOR MYOCARDIAL INFARCTION ABNORMAL ECG No significant change from prior electrocard iogram. PREVIOUS TRACING : 12/30/2017 01.28 DOCTOR: Dwight Sanders Interpretating Date/Time 12/30/2017 08:26:21
[2017-12-30 08:54] VITALS: BP 170/80; PULSE 64; RESP 18; TEMP 97.7; O2SAT 95
--- NOTE | 2017-12-30 08:57 | EKG ---
Date Performed: 12/29/2017 Time Performed: 22:11:28 PTAGE: 52 years EKG: SINUS BRADYCARDIA WITH FREQUENT VENTRICULAR PREMATURE COMPLEXES POSSIBLE LEFT ATRIAL ENLARG EMENT POSSIBLE ANTERIOR MYOCARDIAL INFARCTION ABNORMAL ECG Compared to prior electrocardiogram, [place] ture ventricular contractions are now present . PREVIOUS TRACING : 11/02/2017 22.34 DOCTOR: Dwight Sanders Interpretating Date/Time 12/30/2017 08:56:05
[2017-12-30] MEDS ORDERED: SODIUM CHLORIDE 0.9% FLUSH 10 ML FLUSH IV FLUSH SCH (09:00)
--- NOTE | 2017-12-30 11:12 | HHI.HP ---
[facility] Primary Care Physician Juan Buenrostro M.D. Admission Diagnosis CHF EXAC WITH CP R/O PA Diagnoses: (1) Chest pain Chief Complaint: Chest pain and dyspnea Travel History International Travel<30 Days: No Contact w/Intl Traveler <30 Da: No Traveled to Known Affected Are: No History of Present Illness This is a 52-year-old female patient with a known medical history of A. fib on anticoagulation, COPD, CHF, diabetes who presented to the ED with complaints of chest pain. Patient states that she has noticed increasing shortness of breath over the past 2 days. Especially with exertion. Patient also states that while short of breath she developed a midsternal chest pressure that lasted a couple minutes and then resolved. Is located in her midsternal chest, denied any radiation of pain. States she relates it to heartburn. Denies any associated symptoms such as nausea, vomiting, diaphoresis. Patient denies any radiation of pain. Denies any recent illness including fever, chills, abdominal pain, nausea vomiting, diarrhea dysuria. At the time of assessment patient's pain has resolved. Patient follows with Dr. Carney, last underwent a stress test in September 2016 which was reportedly negative. Patient does not want to undergo a cardiac stress test today, desires to be discharged and followed up with proposal writer in the office. Patient states she feels much improved, no further dyspnea. All vital signs are stable. Chest pain is resolved. Vital signs are stable. Home medications restarted. Dr. Carney updated and aware patient is refusing stress test and will see in office. Review of Systems Constitutional: COMPLAINS OF: Fatigue, DENIES: Diaphoretic episodes, Chills Eyes: DENIES: Diplopia Respiratory: COMPLAINS OF: Shortness of breath, DENIES: Cough, Sputum production Cardiovascular: COMPLAINS OF: Chest pain Gastrointestinal: DENIES: Abdominal pain, Black stools, Bloody stools, Constipation, Diarrhea, Vomiting Musculoskeletal: DENIES: Joint pain Hematologic/lymphatic: DENIES: Bruising Neurologic: DENIES: Abnormal gait Except as stated in HPI: all other systems reviewed are Neg Past Family Social History Past Medical History Atrial fibrillation on Coumadin CHF Hyperlipidemia COPD Diabetes History of DVT in left leg GERD Gout Headaches Hypertension Asthma Sleep apnea Past Surgical History Tubal ligation Left lower extremity stent Tooth extraction Fasciotomy of left leg Reported Medications Active Walker/Adult/Folding (Device) 1 Mis Mis Ea .XX DIRECTED Prednisone 10 Mg Tab 10 Mg PO DIRECTED 2 tabs by mouth Daily, Day 1 to 4 1 tabs by mouth Daily, Day 5 to 8 1/2 tabs by mouth Daily, Day 9 to 12 Then stop Allopurinol 100 Mg Tab 100 Mg PO EVERY OTHER DAY Oxycodone (Oxycodone HCl) 15 Mg Tab 15 Mg PO Q6H PRN Nifedipine ER (Nifedipine) 90 Mg Tab 90 Mg PO DAILY 30 Days Coumadin (Warfarin) 4 Mg Tab 4 Mg PO DAILY@1600 30 Days Bumetanide 1 Mg Tab 1 Mg PO BID Lipitor (Atorvastatin Calcium) 40 Mg Tab 40 Mg PO HS Reported [Fish Oil] 1,000 Mg PO DAILY Creon (Pancrelipase) 36,000-114,000-180,000 Units Cap 1 Cap PO TIDPC Novolin R Inj (Insulin Human Regular) 1,000 Unit/10 Ml Vial 12 Units SQ TID Gabapentin 800 Mg Tab 800 Mg PO BID Methocarbamol 750 Mg Tab 750 Mg PO TID Losartan (Losartan Potassium) 100 Mg Tab 100 Mg PO DAILY Vitamin D3 (Cholecalciferol) 5,000 Unit Cap 5,000 Units PO DAILY Glipizide 10 Mg Tab 10 Mg PO BIDAC Take 30 minutes before a meal Lantus Inj (Insulin Glargine) 1,000 Unit/10 Ml Vial 50 Units SQ BID Allergies: Coded Allergies: Sulfa (Sulfonamide Antibiotics) (Verified Allergy, Severe, HIVES, 11/24/17) ibuprofen (Verified Allergy, Severe, MESSES WITH KIDNEYS, 11/24/17) egg (Verified Allergy, Intermediate, Very Upset Stomach, 11/24/17) milk (Verified Allergy, Unknown, 11/24/17) Family History Family medical history significant for atrial fibrillation CHF in mother's side. Father had an PA in his 60s. Social History Patient denies any tobacco abuse. Denies any illicit drug use or alcohol use. Physical Exam Vital Signs Vital Signs Date Time Temp Pulse Resp B/P (MAP) Pulse Ox O2 Delivery O2 Flow Rate FiO2 5/1/18 08:54 97.7 64 18 170/80 (110) 95 12/30/17 04:15 94 21 12/30/17 02:15 97.1 55 20 155/69 (97) 95 12/30/17 02:13 61 12/30/17 02:10 12/30/17 01:52 59 141/60 (87) 12/30/17 01:39 18 12/29/17 22:09 20 95 Room Air 12/29/17 22:01 20 95 Room Air 12/29/17 20:48 98.7 64 20 163/93 (116) 97 Physical Exam GENERAL: Well-developed, obese female patient in [facility]. SKIN: Warm and dry. No rash. HEAD: Normocephalic. Atraumatic. EYES: Pupils equal and round. No scleral icterus. No injection or drainage. ENT: No nasal bleeding or discharge. Mucous membranes pink and moist. NECK: Supple. Trachea midline. CARDIOVASCULAR: Irregularly irregular rhythm. RESPIRATORY: No accessory muscle use. Clear to auscultation. Breath sounds equal bilaterally. GASTROINTESTINAL: Abdomen soft, non-tender, nondistended. Obese. Normoactive bowel sounds x4. MUSCULOSKELETAL: No obvious deformities. Extremities without clubbing, cyanosis , or edema. NEUROLOGICAL: Awake and alert. No obvious cranial nerve deficits. Motor grossly within normal limits. 5/5 muscle strength in bilateral upper and lower extremities. Normal speech. Left lower extremity scarring from previous surgery noted. Stable. PSYCHIATRIC: Appropriate mood and affect; insight and judgment normal. Laboratory Laboratory Tests Test 12/29/17 22:33 12/30/17 01:35 12/30/17 04:58 White Blood Count 7.7 Red Blood Count 4.69 Hemoglobin 10.5 Hematocrit 33.1 Mean Corpuscular Volume 70.6 Mean Corpuscular Hemoglobin 22.3 Mean Corpuscular Hemoglobin Concent 31.6 Red Cell Distribution Width 18.8 Platelet Count 351 Mean Platelet Volume 8.4 Neutrophils (%) (Auto) 67.1 Lymphocytes (%) (Auto) 25.7 Monocytes (%) (Auto) 5.0 Eosinophils (%) (Auto) 1.8 Basophils (%) (Auto) 0.4 Neutrophils # (Auto) 5.2 Lymphocytes # (Auto) 2.0 Monocytes # (Auto) 0.4 Eosinophils # (Auto) 0.1 Basophils # (Auto) 0.0 CBC Comment AUTO DIFF Differential Comment AUTO DIFF CONFIRMED Ovalocytes 1+ Prothrombin Time 16.7 Prothromb Time International Ratio 1.7 Activated Partial Thromboplast Time 38.6 Blood Urea Nitrogen 50 Creatinine 2.00 Random Glucose 229 Calcium Level 9.3 Magnesium Level 2.1 Sodium Level 138 Potassium Level 4.6 Chloride Level 106 Carbon Dioxide Level 25.9 Anion Gap 6 Estimat Glomerular Filtration Rate 31 Total Creatine Kinase 84 67 67 Troponin I LESS THAN 0.02 LESS THAN 0.02 LESS THAN 0.02 B-Type Natriuretic Peptide 49 Result Diagram: 12/29/17223212/29/172232 Imaging Last Impressions Chest X-Ray 12/29/172200 Signed Impressions: Service Date/Time: Friday, December 29, 2017 22:02 - CONCLUSION: 1. Cardiomegaly with probable basilar atelectasis. There may be some mild pulmonary vascular congestion as well. No effusion or pneumothorax. Travis Bellamy MD Septic Shock Reassessment Septic shock perfusion: reassessment completed Caprini VTE Risk Assessment Caprini VTE Risk Assessment: Mod/High Risk (score >= 2) Caprini Risk Assessment Model Point Value = 1 Point Value = 2 Point Value = 3 Point Value = 5 Age 41-60 Minor surgery BMI > 25 kg/m2 Swollen legs Varicose veins or History of unexplained or recurrent spontaneous Oral contraceptives or hormone replacement Sepsis (< 1 month) Serious lung disease, including pneumonia (< 1 month) Abnormal pulmonary function Acute myocardial infarction Congestive heart failure (< 1 month) History of inflammatory bowel disease Medical patient at bed rest Age 61-74 Arthroscopic surgery Major open surgery (> 45 min) Laparoscopic surgery (> 45 min) Malignancy Confined to bed (> 72 hours) Immobilizing plaster cast Central venous access Age >= 75 History of VTE Family history of VTE Factor V Leiden Prothrombin [id number] Lupus anticoagulant Anticardiolipin antibodies Elevated serum homocysteine Heparin-induced thrombocytopenia Other congenital or acquired thrombophilia Stroke (< 1 month) Elective arthroplasty Hip, pelvis, or leg fracture Acute spinal cord injury (< 1 month) Prophylaxis Regimen Total Risk Factor Score Risk Level Prophylaxis Regimen 0-1 Low Early ambulation 2 Moderate Order ONE of the following: *Sequential Compression Device (SCD) *Heparin 5000 units SQ BID 3-4 Higher Order ONE of the following medications: *Heparin 5000 units SQ TID *Enoxaparin/Lovenox 40 mg SQ daily (WT < 150 kg, CrCl > 30 mL/min) *Enoxaparin/Lovenox 30 mg SQ daily (WT < 150 kg, CrCl > 10-29 mL/min) *Enoxaparin/Lovenox 30 mg SQ BID (WT < 150 kg, CrCl > 30 mL/min) AND/OR *Sequential Compression Device (SCD) 5 or more Highest Order ONE of the following medications: *Heparin 5000 units SQ TID (Preferred with Epidurals) *Enoxaparin/Lovenox 40 mg SQ daily (WT < 150 kg, CrCl > 30 mL/min) *Enoxaparin/Lovenox 30 mg SQ daily (WT < 150 kg, CrCl > 10-29 mL/min) *Enoxaparin/Lovenox 30 mg SQ BID (WT < 150 kg, CrCl > 30 mL/min) AND *Sequential Compression Device (SCD) Assessment and Plan Problem List: (1) Chest pain ICD Code: R07.9 - Chest pain, unspecified (2) Hypertension ICD Code: I10 - Hypertension Status: Chronic (3) Obesity ICD Code: E66.9 - Obesity Status: Acute (4) CKD (chronic kidney disease) ICD Code: N18.9 - Chronic kidney disease, unspecified Status: Chronic (5) Atrial fibrillation ICD Code: I48.91 - Unspecified atrial fibrillation Status: Chronic (6) CHF (congestive heart failure) ICD Code: I50.9 - CHF (congestive heart failure) Status: Acute (7) Diabetes ICD Code: E11.9 - Type 2 diabetes mellitus without complications Status: Acute (8) Diabetic neuropathy ICD Code: E11.40 - Diabetic neuropathy Status: Acute Assessment and Plan This is a 52-year-old female patient with a known medical history of A. fib on anticoagulation, COPD, CHF, diabetes who presented to the ED with complaints of chest pain. Patient states that she has noticed increasing shortness of breath over the past 2 days. Chest pain rule out ACS versus muscular skeletal cause versus unknown etiology - Patient has been admitted for observation, serial EKGs and serial troponins have been ordered for ruling out ACS purposes. Serial troponins are flat. EKG reviewed showing controlled heart rate, atrial fibrillation with no ST changes. Chest pain has resolved on its own. No further symptoms. Patient's Procardia , Cozaar restarted while hospitalized. Chest x-ray reviewed showing cardiomegaly with probable basilar atelectasis. Mild pulmonary vascular congestion. No effusion or new pneumothorax. Patient is refusing cardiac stress test, underwent a cardiac stress test in September 2016 which was reportedly negative showing no presence of reversibility and EF of 52%. Patient desires to follow-up with Dr. Carney in the outpatient setting. She has been updated and an appointment has been arranged. Congestive heart failure, type unspecified not in exacerbation - Patient follows with Dr. Carney, cardiology for management of her CHF. Per patient, she has performed an outpatient echocardiogram recently. Last stress test showing EF 52%. - BNP 49. Given 1 dose of Lasix in ED. Home Bumex has been restarted. - Minimal bilateral lower extremity swelling, has improved. Monitor intake and output closely. Type 2 diabetes mellitus, chronic: Restarted home insulin. Accu-Chek before meals at bedtime, sliding scale, cover it as needed. Patient to follow-up with PCP for management of diabetes and A1c check. Random glucose elevated. Patient aware and follow-up with primary care doctor. Chronic kidney disease: Creatinine 2.0 on presentation. GFR 31. Reviewed records, this is baseline for patient. Encouraged follow-up with professor of environmental engineering. Patient states she has an appointment in the near future. Patient is anemic, likely iron deficient, patient states she takes iron supplements. Atrial fibrillation, chronic: Controlled heart rate. Cardiac telemetry reviewed overnight. No arrhythmias. Patient restarted on Coumadin. INR 1.7. Patient states that she missed her dose yesterday. Encouraged to restart home Coumadin dose and follow-up with PCP. Hypertension, chronic: Patient is hypertensive. Patient is anxious to go home, states all her symptoms have improved. Home medications have been restarted and given. Blood pressure has resolved. Hyperlipidemia, chronic: Continue home statin. DVT prophylaxis: SCDs. Ambulation. Coumadin. Problem Qualifiers (1) Chest pain: Qualified Codes: R07.9 - Chest pain, unspecified LindaErickaComforthannah PIMENTEL December 30, 2017 11:12
--- NOTE | 2017-12-30 11:28 | HHI.DCPOC ---
Discharge Care Plan Diagnosis: (1) Chest pain (2) Diabetes (3) CHF (congestive heart failure) (4) Atrial fibrillation (5) Diabetic neuropathy Goals to Promote Your Health * To prevent worsening of your condition and complications * To maintain your health at the optimal level Directions to Meet Your Goals Take your medications as prescribed Follow your dietary instruction Follow activity as directed Keep your appointments as scheduled Take your immunizations and boosters as scheduled If your symptoms worsen call your PCP, if no PCP go to Urgent Care Center or Emergency Room Smoking is Dangerous to Your Health. Avoid second hand smoke Call the 24-hour hour crisis hotline for domestic abuse at [facility] December 30, 2017 11:28
[2017-12-30] MEDS ORDERED: GLUCAGON 1 MG/ML VIAL OTHER PRN (11:30)
[2017-12-30] MEDS ORDERED: FUROSEMIDE 20 MG/2 ML VIAL IV PUSH ONE (11:30)
[2017-12-30] MEDS ORDERED: DEXTROSE 50% IN WATER 50 ML VIAL(D50) IV PUSH PRN (11:30)
[2017-12-30] MEDS ORDERED: LOSARTAN 50 MG TAB PO SCH (12:00)
[2017-12-30] MEDS ORDERED: INSULIN ASPART SUPPLEMENTAL SCALE SQ SCH (12:00)
[2017-12-30] MEDS ORDERED: NIFEdipine 90 MG SUSTAINED RELEASE TAB PO SCH (12:00)
[2017-12-30] MEDS ORDERED: LIPASE/PROTEASE/AMYLASE (24,000/76,000/120,000) CAP PO SCH (13:30)
[2017-12-30] MEDS ORDERED: WARFARIN SOD 4 MG TAB PO SCH (16:00)
[2017-12-30] MEDS ORDERED: BUMETANIDE 1 MG TAB PO SCH (21:00)
[2017-12-30] MEDS ORDERED: ATORVASTATIN 40 MG TAB PO SCH (21:00)
[2017-12-31] MEDS ORDERED: CHOLECALCIFEROL (VIT D3) 5000 UNIT CAP PO SCH (09:00)
[2017-12-31] MEDS ORDERED: GABAPENTIN 300 MG CAP PO SCH (09:00)
[2018-01-01] MEDS ORDERED: ALLOPURINOL 100 MG TAB PO SCH (09:00)
== END 2017-12-30 13:42 | disposition home or self-care (01) ==
LOC: PHED 20:31 → PHEDA 23:52 → PH3A 12-30 02:01
PROVIDERS: ADMIT Hospitalist; ATTEND Hospitalist
DX: R07.89 Other chest pain (principal); D64.9 Anemia, unspecified; R00.1 Bradycardia, unspecified; R94.31 Abnormal electrocardiogram [ECG] [EKG]; I13.0 Hypertensive heart and chronic kidney disease with heart failure and stage 1 through stage 4 chronic kidney disease, or unspecified chronic kidney disease; I50.33 Acute on chronic diastolic (congestive) heart failure; E11.22 Type 2 diabetes mellitus with diabetic chronic kidney disease; N18.9 Chronic kidney disease, unspecified; E11.40 Type 2 diabetes mellitus with diabetic neuropathy, unspecified; J44.9 Chronic obstructive pulmonary disease, unspecified; I49.3 Ventricular premature depolarization; I48.2 Chronic atrial fibrillation; E78.5 Hyperlipidemia, unspecified; K58.9 Irritable bowel syndrome, unspecified; K21.9 Gastro-esophageal reflux disease without esophagitis; D57.3 Sickle-cell trait; G89.29 Other chronic pain; G47.30 Sleep apnea, unspecified; F41.9 Anxiety disorder, unspecified; M19.90 Unspecified osteoarthritis, unspecified site; E66.9 Obesity, unspecified; Z79.01 Long term (current) use of anticoagulants; Z86.718 Personal history of other venous thrombosis and embolism
CPT/HCPCS: 71045; 80048; 82550; 83735; 83880; 84484; 85025; 85610; 85730; 93005; 96372; 96374; 96376; 99285; G0378; J1644; J1815; J1940

== ENCOUNTER 2018-02-20 12:57 | Inpatient (IN) ==
[2018-03-01] MEDS ORDERED: Bisacodyl 10 MG Supp RECTAL PRN ×2 (01:35→01:38)
[2018-03-01] MEDS ORDERED: Naloxone Inj 0.4 MG/ML Vial IV.PUSH PRN (01:42)
[2018-03-01] MEDS ORDERED: Acetaminophen 325 MG Tablet PO PRN (01:57)
[2018-03-01] MEDS ORDERED: Benzocaine/Menthol 15 MG/3.6 MG SF Lozenge BUCCAL PRN (02:01)
[2018-03-01] MEDS ORDERED: Phenol 1.4% 180 ML Spray Bottle OROPHARYNG PRN (02:03)
[2018-03-01] MEDS ORDERED: Dextrose 50% in Water 50 ML Vial IV.PUSH PRN ×3 (02:10→02:21)
[2018-03-01] MEDS ORDERED: Warfarin Consult Pharmacy 1 EACH OTHER SCH (03:00)
[2018-03-01] MEDS ORDERED: Chlorhexidine Gluconate 2% 1 Pack (2 Cloths) TOPICAL PRN (04:00)
[2018-03-01 05:40] LABS: INR 2.8 Ratio; Prothrombin Time 28.6 sec (9.8-11.6)
[2018-03-01 05:45] LABS: Calcium 9.2 mg/dL (8.5-10.1); Carbon Dioxide 25.6 meq/L (21.0-32.0)
--- NOTE | 2018-03-01 07:34 | P.PNIM ---
Subjective Interval history: Patient seen and evaluated today in follow-up for respiratory failure requiring O2. No home O2. Currently on 4-6 L with overall improvement Urine output improved. Care plan discussed with ICU nurse Physical Exam Vital signs: Vital Signs 03/01/18 00:07 03/01/18 01:00 03/01/18 01:44 Pulse Rate 74 74 74 Respiratory Rate 19 19 17 Blood Pressure 140/59 L Pulse Oximetry 94 L 91 L 94 L 03/01/18 02:00 03/01/18 03:00 03/01/18 04:00 Pulse Rate 72 74 74 Respiratory Rate 19 18 18 Blood Pressure 136/59 L 141/55 H 129/64 Pulse Oximetry 93 L 92 L 90 L 03/01/18 05:00 03/01/18 06:00 03/01/18 07:00 Pulse Rate 70 70 72 Respiratory Rate 18 28 H 38 H Blood Pressure 109/55 L Pulse Oximetry 92 L 93 L 95 Intake & Output 02/28/18 03/01/18 03/01/18 18:59 06:59 18:59 Weight 114.2 kg Narrative: GENERAL: Alert and oriented, sitting in the chair at rest without complaint SKIN: Warm and dry. HEAD: Normocephalic. EYES: No scleral icterus. No injection or drainage. NECK: Supple, trachea midline. No JVD or lymphadenopathy. CARDIOVASCULAR: Regular rate and rhythm without murmurs, gallops, or rubs. RESPIRATORY: Improved breath sounds No wheezes GASTROINTESTINAL: Abdomen soft, non-tender, nondistended. MUSCULOSKELETAL: No cyanosis, but there is +2-3 bilateral lower extremity edema BACK: Nontender without obvious deformity. No CVA tenderness. Results - Labs CBC & Chem 7: 02/24/18 09:20 03/01/18 04:45 Labs: Laboratory Results - last 24 hr 02/25/18 02/27/18 02/27/18 04:20 14:12 14:12 PT 34.2 H INR 3.4 Sodium 132 L Potassium 4.0 Chloride 97 L Carbon Dioxide 23.1 Anion Gap 12 BUN 91 H D Creatinine 2.40 H Estimated GFR 25 L POC Glucose Random Glucose 460 H* Calcium 9.5 Iron 26 L TIBC 232 L % Saturation 11.2 L 02/28/18 03/01/18 03/01/18 10:55 04:45 04:45 PT 38.8 H 28.6 H INR 3.9 2.8 Sodium 136 Potassium 4.0 Chloride 101 Carbon Dioxide 25.6 Anion Gap 9 BUN 82 H Creatinine 1.90 H Estimated GFR 33 L POC Glucose Random Glucose 251 H Calcium 9.2 Iron TIBC % Saturation 03/01/18 05:26 PT INR Sodium Potassium Chloride Carbon Dioxide Anion Gap BUN Creatinine Estimated GFR POC Glucose 221 H Random Glucose Calcium Iron TIBC % Saturation Chest x-ray My impression: 02/24 shows chronic interstitial lung disease Assessment and Plan - Assessment (1) Acute respiratory failure with hypoxemia Code(s): J96.01 - Acute respiratory failure with hypoxia Status: Acute Plan: Continue to wean O2 as tolerated (no home O2) etiology is multifactorial due to COPD, obstructive sleep apnea Pulmonary following Echo within normal limits Continue on his bronchodilators and wean steroids Continue E CPAP and incentive spirometry and pulmonary toilet (2) Diabetes mellitus type 2 in obese Code(s): E11.69 - Type 2 diabetes mellitus with other specified complication; E66.9 - Obesity, unspecified Status: Acute Plan: Blood sugars improved with current dose of Levemir and insulin with meals Patient does have some diabetic neuropathy will continue gabapentin Continue ADA diet and Accu-Cheks with sliding scale (3) Atrial fibrillation Code(s): I48.91 - Unspecified atrial fibrillation Status: Acute Plan: Currently controlled on Coreg On Coumadin with therapeutic INR of 2.8 (4) Chronic kidney disease, stage III (moderate) Code(s): N18.3 - Chronic kidney disease, stage 3 (moderate) Status: Acute Plan: Losartan Currently stable Avoid nephrotoxic injury (5) Hypertension Code(s): I10 - Essential (primary) hypertension Status: Acute Plan: Currently controlled on nifedipine, hydralazine and Coreg Clonidine as needed - Plan Discharge to rehab when stable
[2018-03-01] MEDS: Allopurinol 300 MG Tablet PO SCH (08:53)
[2018-03-01] MEDS: Lipase/Protease/Amylase 12/38/60 DR Capsule PO SCH ×4 (08:53→22:20)
[2018-03-01] MEDS: Carvedilol 6.25 MG Tablet PO SCH ×2 (08:54→22:17)
[2018-03-01] MEDS: Gabapentin 100 MG Capsule PO SCH ×3 (08:54→17:24)
[2018-03-01] MEDS: hydrALAZINE 25 MG Tablet PO SCH ×2 (08:54→22:17)
[2018-03-01] MEDS: Furosemide 20 MG Tablet PO SCH (08:55)
[2018-03-01] MEDS: MethylPREDNISolone Sod Succinate Inj 40 MG/ML Vial IV.PUSH SCH (08:55)
[2018-03-01] MEDS: Insulin NovoLOG Aspart Correctional Sugar Inj SQ SCH ×4 (08:58→22:15)
[2018-03-01] MEDS: Insulin Detemir Inj 1,000 UNIT/10 ML Vial SQ SCH ×2 (08:59→22:14)
[2018-03-01] MEDS: Senna/Docusate Sodium 8.6/50 MG Tablet PO SCH ×2 (08:59→22:19)
[2018-03-01] MEDS ORDERED: Senna/Docusate Sodium 8.6/50 MG Tablet PO SCH (09:00)
[2018-03-01] MEDS: Chlorhexidine Gluconate 2% 1 Pack (2 Cloths) TOPICAL SCH (22:19)
[2018-03-02] MEDS: Chlorhexidine Gluconate 2% 1 Pack (2 Cloths) TOPICAL SCH (04:53)
--- NOTE | 2018-03-02 09:25 | P.PN ---
Subjective Interval history: up in bed no distress Physical Exam Vital signs: Vital Signs 03/01/18 10:00 03/01/18 11:00 03/01/18 12:00 Temperature Pulse Rate 78 76 92 H Respiratory Rate 19 22 25 H Blood Pressure Pulse Oximetry 92 L 91 L 91 L 03/01/18 13:00 03/01/18 13:19 03/01/18 14:00 Temperature Pulse Rate 74 72 72 Respiratory Rate 18 19 18 Blood Pressure 117/50 L Pulse Oximetry 94 L 93 L 96 03/01/18 15:00 03/01/18 16:00 03/01/18 17:00 Temperature Pulse Rate 64 68 74 Respiratory Rate 17 15 19 Blood Pressure Pulse Oximetry 91 L 95 93 L 03/01/18 17:19 03/01/18 18:00 03/01/18 19:00 Temperature Pulse Rate 74 72 72 Respiratory Rate 20 21 16 Blood Pressure 122/49 L Pulse Oximetry 95 94 L 96 03/01/18 19:33 03/01/18 19:36 03/01/18 20:00 Temperature Pulse Rate 76 74 Respiratory Rate 16 15 Blood Pressure Pulse Oximetry 94 L 95 03/01/18 20:04 03/01/18 21:00 03/01/18 21:19 Temperature 98.3 F Pulse Rate 76 76 Respiratory Rate 15 15 Blood Pressure 124/49 L Pulse Oximetry 95 96 03/01/18 22:00 03/01/18 23:00 03/02/18 00:00 Temperature Pulse Rate 80 76 76 Respiratory Rate 15 13 17 Blood Pressure Pulse Oximetry 96 96 95 03/02/18 00:19 03/02/18 01:00 03/02/18 01:05 Temperature 98.6 F Pulse Rate 76 76 Respiratory Rate 16 18 Blood Pressure 150/64 H 146/61 H Pulse Oximetry 94 L 95 03/02/18 05:00 03/02/18 05:54 03/02/18 07:45 Temperature 98.8 F Pulse Rate 70 72 Respiratory Rate 30 H 26 H 19 Blood Pressure 135/63 Pulse Oximetry 94 L Intake & Output 03/01/18 03/02/18 03/02/18 18:59 06:59 18:59 Intake Total 600 / 600 Output Total 1800 / 1800 800 / 800 Balance -1800 / -1800 -200 / -200 Weight 114.2 kg Intake: Oral 600 / 600 Output: Urine 1800 / 1800 800 / 800 Other: Date of Last Bowel Movement 02/27/18 02/27/18 Weight On Admission 114.2 kg Narrative: Details Awake, Alert, in no acute distress, calm and cooperative Details NCAT, EOMI, Anicteric Details No JVD, supple Details Diffusely decreased breath sounds, no wheezing, no distress, on supplemental O2 therapy, O2 sat 95% at rest on O2 Details Tachycardic, regular rhythm, no murmur Details BS x 4, Non distended, obese Details no c/c/e Details grossly nonfocal - Constitutional no acute distress, morbidly obese Results - Labs CBC & Chem 7: 02/24/18 09:20 03/01/18 04:45 Laboratory Results - last 24 hr 03/01/18 03/01/18 03/01/18 11:48 16:55 21:45 POC Glucose 347 H 351 H 327 H Assessment and Plan - Assessment (1) Acute respiratory failure with hypoxemia Code(s): J96.01 - Acute respiratory failure with hypoxia Status: Acute - Plan Mrs. Hanna is a 52 year old black female with: 1) COPD exacerbation 2) WISAM - s/p CPAP titration not yet on therapy due to poor tolerance 3) Morbid Obesity Plan: Continue with bronchodilator therapy Continue with supplemental O2 therapy - wean as tolerated Activity to be increased/Out of Bed Patient to follow up for CPAP therapy following D/C
[2018-03-02] MEDS: Insulin Detemir Inj 1,000 UNIT/10 ML Vial SQ SCH (09:54)
[2018-03-02] MEDS: Lipase/Protease/Amylase 12/38/60 DR Capsule PO SCH ×2 (09:56→12:29)
[2018-03-02] MEDS: Allopurinol 300 MG Tablet PO SCH (09:56)
[2018-03-02] MEDS: MethylPREDNISolone Sod Succinate Inj 40 MG/ML Vial IV.PUSH SCH (09:56)
[2018-03-02] MEDS: hydrALAZINE 25 MG Tablet PO SCH (09:57)
[2018-03-02] MEDS: Furosemide 20 MG Tablet PO SCH (09:57)
[2018-03-02] MEDS: Carvedilol 6.25 MG Tablet PO SCH (09:57)
[2018-03-02] MEDS: Gabapentin 100 MG Capsule PO SCH ×2 (09:57→12:29)
--- NOTE | 2018-03-02 10:17 | P.DS ---
Date of admission: 02/20/18 16:12 Primary care physician: Juan Buenrostro MD Brief History from admission: Patient was seen initially for increased shortness of breath DS: Diagnosis - Discharge Diagnosis (1) Acute respiratory failure with hypoxemia Status: Acute (2) Diabetes mellitus type 2 in obese Status: Chronic (3) Atrial fibrillation Status: Chronic (4) Chronic kidney disease, stage III (moderate) Status: Chronic (5) Hypertension Status: Chronic DS: Medications - Discharge Medications Prescriptions: oxycodone 10 mg PO Q6H PRN #10 tab PRN Reason: PAIN 3-10 prednisone [Deltasone] 20 mg PO DIRECTED #21 tab DS: Summary Hospital Course: Treated for respiratory failure. She required oxygenation by high flow nasal cannula which was weaned appropriately. She was diuresed. Echocardiogram was done and patient has preserved left ejection fraction and no evidence of right heart failure. Patient did well with pulmonary toilet and with ancillary staff and assistance. She did have some time in the ICU due to worsening respiratory failure. Patient also was seen by multiple subspecialists for assistance in management. She was discharged to rehab to continue her care - Time Spent with Patient Total time spent providing and/or coordinating discharge services: Greater than 30 minutes Exam Vital signs: Vital Signs 03/01/18 10:00 03/01/18 11:00 03/01/18 12:00 Temperature Pulse Rate 78 76 92 H Respiratory Rate 19 22 25 H Blood Pressure Pulse Oximetry 92 L 91 L 91 L 03/01/18 13:00 03/01/18 13:19 03/01/18 14:00 Temperature Pulse Rate 74 72 72 Respiratory Rate 18 19 18 Blood Pressure 117/50 L Pulse Oximetry 94 L 93 L 96 03/01/18 15:00 03/01/18 16:00 03/01/18 17:00 Temperature Pulse Rate 64 68 74 Respiratory Rate 17 15 19 Blood Pressure Pulse Oximetry 91 L 95 93 L 03/01/18 17:19 03/01/18 18:00 03/01/18 19:00 Temperature Pulse Rate 74 72 72 Respiratory Rate 20 21 16 Blood Pressure 122/49 L Pulse Oximetry 95 94 L 96 03/01/18 19:33 03/01/18 19:36 03/01/18 20:00 Temperature Pulse Rate 76 74 Respiratory Rate 16 15 Blood Pressure Pulse Oximetry 94 L 95 03/01/18 20:04 03/01/18 21:00 03/01/18 21:19 Temperature 98.3 F Pulse Rate 76 76 Respiratory Rate 15 15 Blood Pressure 124/49 L Pulse Oximetry 95 96 03/01/18 22:00 03/01/18 23:00 03/02/18 00:00 Temperature Pulse Rate 80 76 76 Respiratory Rate 15 13 17 Blood Pressure Pulse Oximetry 96 96 95 03/02/18 00:19 03/02/18 01:00 03/02/18 01:05 Temperature 98.6 F Pulse Rate 76 76 Respiratory Rate 16 18 Blood Pressure 150/64 H 146/61 H Pulse Oximetry 94 L 95 03/02/18 05:00 03/02/18 05:54 03/02/18 07:45 Temperature 98.8 F Pulse Rate 70 72 Respiratory Rate 30 H 26 H 19 Blood Pressure 135/63 Pulse Oximetry 94 L Intake & Output 03/01/18 03/02/18 03/02/18 18:59 06:59 18:59 Intake Total 600 / 600 Output Total 1800 / 1800 800 / 800 Balance -1800 / -1800 -200 / -200 Weight 114.2 kg Intake: Oral 600 / 600 Output: Urine 1800 / 1800 800 / 800 Other: Date of Last Bowel Movement 02/27/18 02/27/18 Weight On Admission 114.2 kg Narrative: GENERAL: alert in chair, no acute distress SKIN: Warm and dry. HEAD: Atraumatic. Normocephalic. EYES: Pupils equal and round. No scleral icterus. No injection or drainage. ENT: No nasal bleeding or discharge. Mucous membranes pink and moist. NECK: Trachea midline. No JVD. CARDIOVASCULAR: Regular rate and rhythm. RESPIRATORY: No accessory muscle use. Clear to auscultation. Breath sounds equal bilaterally. GASTROINTESTINAL: Abdomen soft, non-tender, nondistended. Hepatic and splenic margins not palpable. MUSCULOSKELETAL: Extremities without clubbing, cyanosis, there is +3 leg edema. No obvious deformities. NEUROLOGICAL: Awake and alert. No obvious cranial nerve deficits. Motor grossly within normal limits. Five out of 5 muscle strength in the arms and legs. Normal speech. PSYCHIATRIC: Appropriate mood and affect; insight and judgment normal. Results Procedures completed during hospitalization: none Labs on day of discharge: Labs from last 24 hours 03/01/18 03/01/18 03/01/18 21:45 16:55 11:48 POC Glucose 327 H 351 H 347 H Discharge Plan - Discharge Disposition Patient Disposition: 03 Discharge to SNF - Discharge Condition Condition: Stable - Discharge Order Discharge Orders: Discharge Order (Routine); Ordered 03/02/18 Ordered By: Cornelia Louis - Discharge Details Discharge Comment: when arrangements made - Physicians Team Primary Care Provider: Juan Buenrostro V Attending Provider: Cornelia Louis Other Providers: Gutierrez Whitley MD - Rxs /Orders / Referrals /Forms Prescriptions: New atorvastatin 40 mg Tablet 40 mg PO HS RF: 0 bacitracin 500 unit/gram Ointment 1 applicatio Topical DAILY RF: 0 carvedilol [Coreg] 6.25 mg Tablet 6.25 mg PO Q12HR RF: 0 clonidine HCl [Catapres] 0.1 mg Tablet 0.1 mg PO Q6H PRN (Reason: Sbp>160, Dbp>90) RF: 0 furosemide 20 mg Tablet 20 mg PO DAILY RF: 0 gabapentin 100 mg Capsule 200 mg PO TID RF: 0 ipratropium-albuterol 0.5 mg-3 mg(2.5 mg base)/3 mL Solution For Nebulization 1 amp NEB Q2HR NEB PRN (Reason: Wheezing) RF: 0 ipratropium-albuterol 0.5 mg-3 mg(2.5 mg base)/3 mL Solution For Nebulization 1 amp NEB BID NEB RF: 0 nabumetone 500 mg Tablet 500 mg PO BID RF: 0 nifedipine 90 mg Tablet Extended Release 90 mg PO DAILY RF: 0 oxycodone 5 mg Tablet 10 mg PO Q6H PRN (Reason: PAIN 3-10) Qty: 10 RF: 0 prednisone [Deltasone] 20 mg Tablet 20 mg PO DIRECTED Qty: 21 RF: 0 tizanidine [Zanaflex] 4 mg Tablet 4 mg PO TID PRN (Reason: Muscle Spasm) RF: 0 warfarin [Coumadin] 3 mg Tablet 3 mg PO DAILY@1600 RF: 0 Continue allopurinol 300 mg Tablet 300 mg PO DAILY atorvastatin 40 mg Tablet 40 mg PO HS cholecalciferol (vitamin D3) 5,000 unit Capsule 5,000 unit PO DAILY glipizide 10 mg Tablet 10 mg PO BID insulin glargine 100 unit/mL Solution 50 unit SUB-Q BID [id number] [Creon] 36,000-114,000- 180,000 unit Capsule,Delayed Release(Dr/Ec) 1 cap PO TID methocarbamol 750 mg Tablet 750 mg PO QID nifedipine 90 mg Tablet Extended Release 90 mg PO DAILY omega-3 fatty acids [Fish Oil Concentrate] 1,000 mg Capsule 1,000 mg PO DAILY Discontinued gabapentin 800 mg Tablet 800 mg PO BID hydrocodone-acetaminophen 10-325 mg Tablet 1 tab PO Q6H [id number] [Creon] 36,000-114,000- 180,000 unit Capsule,Delayed Release(Dr/Ec) 1 cap PO TID losartan 100 mg Tablet 100 mg PO DAILY nabumetone 500 mg Tablet 500 mg PO BID nabumetone 500 mg Tablet 500 mg PO BID oxycodone 15 mg Tablet 15 mg PO Q4-6H PRN (Reason: Pain) tizanidine 4 mg Capsule 4 mg PO TID warfarin 4 mg Tablet 4 mg PO DAILY Referrals: Juan Buenrostro MD [Primary Care Provider] - See Instructions - Discharge Instructions Additional Instructions: Tangible script for Roxicodone sent with patient. Last given at 1230 7
[2018-03-02] MEDS: Insulin NovoLOG Aspart Correctional Sugar Inj SQ SCH ×3 (12:12→12:28)
== END 2018-03-02 13:18 ==
LOC: UNDODISIN → PHICU 16:12
PROVIDERS: ADMIT Hospitalist; ATTEND Hospitalist

== ENCOUNTER 2018-03-18 17:23 | Inpatient (IN) ==
--- NOTE | 2018-03-18 17:50 | ED ---
HPI General Chief Complaint: Cardiac Arrest/CPR Stated Complaint: Fire Dept/Evac/Code Time Seen by Provider: 03/18/18 17:47 Source: EMS History of Present Illness HPI narrative: Patient is a 52-year-old female was brought in by EMS status post PEA arrest. As per EMS the call was for shortness of breath Dr. Norris riwin and when they arrived the patient was not compliant was allowing to intervene. They finally convinced her to get on the gurney and when she was transferred to the [facility] she coded and they started CPR. She received 2 units of FFP was intubated with LMA and was brought to our facility. The tube was exchanged by Dr. Bey who assisted in the code. MD complaint: collapsed during activity Onset (ago): minute(s) (25) Place: DC/SNF Initial findings in the field: alert ROSC in the field: Yes Treatments prior to arrival: other airway device (LMA), chest compressions and epinephrine mgs # (2) Related Data Home Medications Medication Instructions Recorded Confirmed allopurinol 300 mg PO DAILY 02/28/18 03/18/18 atorvastatin 40 mg PO HS 02/28/18 03/18/18 cholecalciferol (vitamin D3) 5,000 unit PO DAILY 02/28/18 03/18/18 glipizide 10 mg PO BID 02/28/18 03/18/18 insulin glargine 50 unit SUB-Q BID 02/28/18 03/18/18 [id number] [Creon] 1 cap PO TID 02/28/18 03/18/18 methocarbamol 750 mg PO QID 02/28/18 03/18/18 nifedipine 90 mg PO DAILY 02/28/18 03/18/18 omega-3 fatty acids [Fish Oil 1,000 mg PO DAILY 02/28/18 03/18/18 Concentrate] warfarin [Coumadin] 4 mg PO DAILY@1600 03/18/18 03/18/18 Previous Rx's Medication Instructions Recorded atorvastatin 40 mg PO HS tab 03/02/18 bacitracin 1 applicatio TOPICAL DAILY g 03/02/18 carvedilol [Coreg] 6.25 mg PO Q12HR tab 03/02/18 clonidine HCl [Catapres] 0.1 mg PO Q6H PRN tab 03/02/18 furosemide 20 mg PO DAILY tab 03/02/18 gabapentin 200 mg PO TID cap 03/02/18 ipratropium-albuterol 1 amp NEB BID NEB ml 03/02/18 ipratropium-albuterol 1 amp NEB Q2HR NEB PRN ml 03/02/18 nabumetone 500 mg PO BID tab 03/02/18 nifedipine 90 mg PO DAILY tab 03/02/18 oxycodone 10 mg PO Q6H PRN #10 tab 03/02/18 prednisone [Deltasone] 20 mg PO DIRECTED #21 tab 03/02/18 tizanidine [Zanaflex] 4 mg PO TID PRN tab 03/02/18 Allergies Allergy/AdvReac Type Severity Reaction Status Date / Time ibuprofen Allergy Severe MESSES Verified 03/18/18 17:58 WITH KIDNEYS Sulfa (Sulfonamide Allergy Severe HIVES Verified 03/18/18 17:58 Antibiotics) egg Allergy Intermediate Very Upset Verified 03/18/18 17:58 Stomach milk Allergy Unknown Heartburn Verified 03/18/18 17:58 Review of Systems ROS Unobtainable other (unable to obtain due to condition) PMFSH History History Provided By: Medical 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 Medical History Medical History Anxiety (Acute) Atrial fibrillation (Acute) CKD (chronic kidney disease) stage 3, GFR 30-59 ml/min (Acute) Diabetes mellitus (Acute) Diastolic heart failure (Acute) Hx of fall (Acute) Hyperlipidemia (Acute) Hypertension (Acute) Major depressive disorder (Acute) Muscle weakness (Acute) Obesity (Acute) PVD (peripheral vascular disease) (Acute) Respiratory failure with hypoxia (Acute) Surgical History Surgical History H/O fasciotomy (Acute) Hx of tonsillectomy (Acute) S/P debridement (Acute) S/P popliteal-tibial bypass (Acute) Status post amputation of great toe (Acute) Status post amputation of lesser toe of left foot (Acute) Family History Family History Brother HTN (hypertension) Diabetes Other Family history of cardiac disorder in father Social History Social History Substance History: Unable to Obtain Smoking Status: Unknown if ever smoked How Often Do You Have a Drink Containing Alcohol: Unable to Obtain Recent Travel in [place] within the Last 8 Weeks: No Recent Out of Country Travel within the Last 8 Weeks: No Exam Const General: other (Intubated) Eyes General: appearance normal, both eyes and all related structures Pupils: anisocoria (RT>LT) Neck Neck: normal visual inspection and no JVD Chest Chest: normal inspection of the chest Resp Auscultation: crackles bilaterally Other: Being bagged the LMA Cardio Rate: regular rate Rhythm: regular rhythm GI Inspection: no edema, non-distended, obesity and striae Neuro Other: Unresponsive Course Hospital Course: Time of arrival patient had return of spontaneous circulation. Due to the fact that she had a temporary airway weeks change with ET tube. Patient remained stable on reevaluation she regained consciousness and had purposeful movements able to nod and respond to questions. Hypercapnia noted on ABGs. Patient with consolidation on chest x-ray. Started on IV antibiotics. Initial lactate elevated. Initial Documented Vital Signs Temperature 98.4 F 03/18/18 17:24 Pulse Rate 170 H 03/18/18 17:24 Respiratory Rate 14 03/18/18 17:24 Blood Pressure 144/94 H 03/18/18 17:24 Pulse Oximetry 96 03/18/18 17:24 Last Documented Vital Signs Temperature 98 F 03/21/18 04:00 Pulse Rate 63 03/21/18 07:36 Respiratory Rate 19 03/21/18 07:36 Blood Pressure 172/61 H 03/21/18 04:00 Pulse Oximetry 100 03/21/18 04:00 Procedures Intubation Time Out Performed: No Sedative: etomidate Mg Given: 20 Paralytic: succinylcholine Mg Given: 100 Laryngoscope: Greta Assist Device Used: Bougie ET Tube Size: 8 ET Tube Uncuffed: No Tube Secured Depth (cm): 24 Tube Secured Location: lips Tube Placement Confirmation: visualized tube passing through cords, equal breath sounds bilaterally, no breath sounds over epigastrium and confirmation by capnometry Intubation Complications: difficult intubation Additional Comments: patient intubated by me (chilo bey) assisting dr galvez, remaining management and note to be performed and completed by leonor Critical Care Time Critical Care Time: Yes Total Critical Care Time: 45 Attestation: Aggregate critical care time was 45 minutes. Time to perform other separately billable procedures was not included in the critical care time. My time did not include minutes spent treating any other patients simultaneously or on activities that did not directly contribute to the patient's treatment. The services I provided to this patient were to treat and/or prevent clinically significant deterioration that could result in: I provided critical care services requiring my management, as noted below: Chart data review, documentation time, medication orders and management, vital sign assessments/reviewing monitor data, ordering and reviewing lab tests, ordering and interpreting/reviewing x-rays and diagnostic studies, care of the patient and discussion of the patient with the admitting physicians. Medical Decision Making MDM Narrative Medical decision making narrative: Patient status post cardiac arrest with return of spontaneous circulation. Respiratory failure possible basilar pneumonia. Airway was exchanged permanent ET tube. Patient did exhibit purposeful movement and open her eyes was able to respond to questions by nodding. Hypercapnia noted on ABGs. Elevated white count of 14.6 with acute kidney injury likely secondary her cardiac arrest Lab Data Lab results reviewed: Yes I reviewed the patient's lab results. Result diagrams: 03/21/18 00:20 03/21/18 00:20 Lab Results 03/18/18 03/18/18 03/18/18 Range/Units 00:48 18:00 18:00 WBC 16.1 H D (4.0-11.0) th/mm3 RBC 4.03 (4.00-5.30) mil/mm3 Hgb 9.0 L (11.6-15.3) gm/dL Hct 30.3 L (35.0-46.0) % MCV 75.2 L D (80.0-100.0) fL MCH 22.5 L (27.0-34.0) pg MCHC 29.8 L (32.0-36.0) % RDW 22.6 H (11.6-17.2) % Plt Count 315 (150-450) th/mm3 MPV 10.0 (7.0-11.0) fL Prelim Diff (Auto) Slide review pending Neut % (Auto) 83.5 H (16.0-70.0) % Lymph % (Auto) 14.1 (9.0-44.0) % [place] % (Auto) 1.8 (0.0-8.0) % Eos % (Auto) 0.1 (0.0-4.0) % Baso % (Auto) 0.5 (0.0-2.0) % Neut # (Auto) 13.4 H (1.8-7.7) th/mm3 Lymph # (Auto) 2.3 (1.0-4.8) th/mm3 [place] # (Auto) 0.3 (0.0-0.9) th/mm3 Eos # (Auto) 0.0 (0.0-0.4) th/mm3 Baso # (Auto) 0.1 (0.0-0.2) th/mm3 WBC Differential . Diff Scan Auto diff confirmed Differential Comment . PT 14.0 H (9.8-11.6) sec INR 1.4 Ratio APTT 27.6 (24.3-30.1) sec Fibrinogen (227-377) mg/dL Puncture Site Patient Temperature O2 Saturation (90-100) % ABG pH (7.380-7.420) ABG pCO2 (38-42) mmHg ABG pO2 (61-120) mmHg ABG HCO3 (22-26) mmol/L ABG O2 Content (12.0-20.0) Vol % ABG Base Excess (-2-2) mmol/L ABG Methemoglobin (0-2) % Trevor Test Hemoglobin (12.0-16.0) G/DL Carboxyhemoglobin (0-4) % O2 Delivery Device Vent Setting Inspired O2 % Critical Value Sodium (136-145) meq/L Potassium (3.5-5.1) meq/L Chloride (98-107) meq/L Carbon Dioxide (21.0-32.0) meq/L Anion Gap (5-15) meq/L BUN (7-18) mg/dL Creatinine (0.50-1.00) mg/dL Estimated GFR (>89) mL/min POC Glucose (68-110) mg/dl Random Glucose (74-106) mg/dL Lactic Acid 1.0 (0.4-2.0) mmol/L Calcium (8.5-10.1) mg/dL Prot Corrected Calcium (8.5-10.1) mg/dL Phosphorus (2.5-4.9) mg/dL Magnesium (1.5-2.5) mg/dL Total Bilirubin (0.2-1.0) mg/dL AST (15-37) U/L ALT (10-53) U/L Alkaline Phosphatase (45-117) U/L Ammonia (11-32) mcmol/L Lactate Dehydrogenase (84-246) U/L Total Creatine Kinase (26-192) U/L Troponin I (0.02-0.05) ng/mL B-Natriuretic Peptide (0-100) pg/mL Total Protein (6.4-8.2) g/dL Albumin (3.4-5.0) g/dL TSH (0.358-3.740) uIU/mL Nasal Screen MRSA (PCR) (Negative) Vancomycin Trough (5.0-10.0) mcg/mL Random Vancomycin Comment 03/18/18 03/18/18 03/18/18 Range/Units 18:00 18:00 18:00 WBC (4.0-11.0) th/mm3 RBC (4.00-5.30) mil/mm3 Hgb (11.6-15.3) gm/dL Hct (35.0-46.0) % MCV (80.0-100.0) fL MCH (27.0-34.0) pg MCHC (32.0-36.0) % RDW (11.6-17.2) % Plt Count (150-450) th/mm3 MPV (7.0-11.0) fL Prelim Diff (Auto) Neut % (Auto) (16.0-70.0) % Lymph % (Auto) (9.0-44.0) % [place] % (Auto) (0.0-8.0) % Eos % (Auto) (0.0-4.0) % Baso % (Auto) (0.0-2.0) % Neut # (Auto) (1.8-7.7) th/mm3 Lymph # (Auto) (1.0-4.8) th/mm3 [place] # (Auto) (0.0-0.9) th/mm3 Eos # (Auto) (0.0-0.4) th/mm3 Baso # (Auto) (0.0-0.2) th/mm3 WBC Differential Diff Scan Differential Comment PT (9.8-11.6) sec INR Ratio APTT (24.3-30.1) sec Fibrinogen (227-377) mg/dL Puncture Site Patient Temperature O2 Saturation (90-100) % ABG pH (7.380-7.420) ABG pCO2 (38-42) mmHg ABG pO2 (61-120) mmHg ABG HCO3 (22-26) mmol/L ABG O2 Content (12.0-20.0) Vol % ABG Base Excess (-2-2) mmol/L ABG Methemoglobin (0-2) % Trevor Test Hemoglobin (12.0-16.0) G/DL Carboxyhemoglobin (0-4) % O2 Delivery Device Vent Setting Inspired O2 % Critical Value Sodium 145 (136-145) meq/L Potassium 4.4 (3.5-5.1) meq/L Chloride 117 H (98-107) meq/L Carbon Dioxide 10.7 L D (21.0-32.0) meq/L Anion Gap 17 H (5-15) meq/L BUN 38 H (7-18) mg/dL Creatinine 1.72 H (0.50-1.00) mg/dL Estimated GFR 37 L (>89) mL/min POC Glucose (68-110) mg/dl Random Glucose 245 H D (74-106) mg/dL Lactic Acid (0.4-2.0) mmol/L Calcium 6.7 L* D (8.5-10.1) mg/dL Prot Corrected Calcium 7.6 L (8.5-10.1) mg/dL Phosphorus 4.5 (2.5-4.9) mg/dL Magnesium 1.5 Cancelled (1.5-2.5) mg/dL Total Bilirubin 0.7 (0.2-1.0) mg/dL AST 38 H (15-37) U/L ALT 34 (10-53) U/L Alkaline Phosphatase 105 (45-117) U/L Ammonia (11-32) mcmol/L Lactate Dehydrogenase (84-246) U/L Total Creatine Kinase (26-192) U/L Troponin I 0.02 (0.02-0.05) ng/mL B-Natriuretic Peptide 485 H (0-100) pg/mL Total Protein 5.3 L (6.4-8.2) g/dL Albumin 2.1 L (3.4-5.0) g/dL TSH (0.358-3.740) uIU/mL Nasal Screen MRSA (PCR) (Negative) Vancomycin Trough (5.0-10.0) mcg/mL Random Vancomycin Comment 03/18/18 03/18/18 03/18/18 Range/Units 18:00 18:15 18:39 WBC (4.0-11.0) th/mm3 RBC (4.00-5.30) mil/mm3 Hgb (11.6-15.3) gm/dL Hct (35.0-46.0) % MCV (80.0-100.0) fL MCH (27.0-34.0) pg MCHC (32.0-36.0) % RDW (11.6-17.2) % Plt Count (150-450) th/mm3 MPV (7.0-11.0) fL Prelim Diff (Auto) Neut % (Auto) (16.0-70.0) % Lymph % (Auto) (9.0-44.0) % [place] % (Auto) (0.0-8.0) % Eos % (Auto) (0.0-4.0) % Baso % (Auto) (0.0-2.0) % Neut # (Auto) (1.8-7.7) th/mm3 Lymph # (Auto) (1.0-4.8) th/mm3 [place] # (Auto) (0.0-0.9) th/mm3 Eos # (Auto) (0.0-0.4) th/mm3 Baso # (Auto) (0.0-0.2) th/mm3 WBC Differential Diff Scan Differential Comment PT (9.8-11.6) sec INR Ratio APTT (24.3-30.1) sec Fibrinogen (227-377) mg/dL Puncture Site Right radial Patient Temperature 98.6 O2 Saturation 85 L* (90-100) % ABG pH 7.10 L* (7.380-7.420) ABG pCO2 53 H* (38-42) mmHg ABG pO2 74 (61-120) mmHg ABG HCO3 16 L* (22-26) mmol/L ABG O2 Content 10.3 L (12.0-20.0) Vol % ABG Base Excess -12.2 L (-2-2) mmol/L ABG Methemoglobin 1.2 (0-2) % Trevor Test Present Hemoglobin 8.6 L (12.0-16.0) G/DL Carboxyhemoglobin 1.3 (0-4) % O2 Delivery Device Ventilator Vent Setting Prvc/16/550/1.0/+5 Inspired O2 100 % Critical Value Yes Sodium (136-145) meq/L Potassium (3.5-5.1) meq/L Chloride (98-107) meq/L Carbon Dioxide (21.0-32.0) meq/L Anion Gap (5-15) meq/L BUN (7-18) mg/dL Creatinine (0.50-1.00) mg/dL Estimated GFR (>89) mL/min POC Glucose (68-110) mg/dl Random Glucose (74-106) mg/dL Lactic Acid 7.8 H* (0.4-2.0) mmol/L Calcium (8.5-10.1) mg/dL Prot Corrected Calcium (8.5-10.1) mg/dL Phosphorus Cancelled (2.5-4.9) mg/dL Magnesium (1.5-2.5) mg/dL Total Bilirubin (0.2-1.0) mg/dL AST (15-37) U/L ALT (10-53) U/L Alkaline Phosphatase (45-117) U/L Ammonia (11-32) mcmol/L Lactate Dehydrogenase (84-246) U/L Total Creatine Kinase (26-192) U/L Troponin I (0.02-0.05) ng/mL B-Natriuretic Peptide (0-100) pg/mL Total Protein (6.4-8.2) g/dL Albumin (3.4-5.0) g/dL TSH (0.358-3.740) uIU/mL Nasal Screen MRSA (PCR) (Negative) Vancomycin Trough (5.0-10.0) mcg/mL Random Vancomycin Comment 03/18/18 03/18/18 03/19/18 Range/Units 21:25 23:20 00:28 WBC (4.0-11.0) th/mm3 RBC (4.00-5.30) mil/mm3 Hgb (11.6-15.3) gm/dL Hct (35.0-46.0) % MCV (80.0-100.0) fL MCH (27.0-34.0) pg MCHC (32.0-36.0) % RDW (11.6-17.2) % Plt Count (150-450) th/mm3 MPV (7.0-11.0) fL Prelim Diff (Auto) Neut % (Auto) (16.0-70.0) % Lymph % (Auto) (9.0-44.0) % [place] % (Auto) (0.0-8.0) % Eos % (Auto) (0.0-4.0) % Baso % (Auto) (0.0-2.0) % Neut # (Auto) (1.8-7.7) th/mm3 Lymph # (Auto) (1.0-4.8) th/mm3 [place] # (Auto) (0.0-0.9) th/mm3 Eos # (Auto) (0.0-0.4) th/mm3 Baso # (Auto) (0.0-0.2) th/mm3 WBC Differential Diff Scan Differential Comment PT (9.8-11.6) sec INR Ratio APTT (24.3-30.1) sec Fibrinogen (227-377) mg/dL Puncture Site Left radial Patient Temperature 98.6 O2 Saturation 85 L* (90-100) % ABG pH 7.22 L* (7.380-7.420) ABG pCO2 40 (38-42) mmHg ABG pO2 64 (61-120) mmHg ABG HCO3 16 L* (22-26) mmol/L ABG O2 Content 9.1 L (12.0-20.0) Vol % ABG Base Excess -10.5 L (-2-2) mmol/L ABG Methemoglobin 2.2 H (0-2) % Trevor Test Present Hemoglobin 7.6 L (12.0-16.0) G/DL Carboxyhemoglobin 1.3 (0-4) % O2 Delivery Device Ventilator Vent Setting Prvc/ac Inspired O2 90 % Critical Value Yes Sodium (136-145) meq/L Potassium (3.5-5.1) meq/L Chloride (98-107) meq/L Carbon Dioxide (21.0-32.0) meq/L Anion Gap (5-15) meq/L BUN (7-18) mg/dL Creatinine (0.50-1.00) mg/dL Estimated GFR (>89) mL/min POC Glucose 306 H (68-110) mg/dl Random Glucose (74-106) mg/dL Lactic Acid (0.4-2.0) mmol/L Calcium (8.5-10.1) mg/dL Prot Corrected Calcium (8.5-10.1) mg/dL Phosphorus (2.5-4.9) mg/dL Magnesium (1.5-2.5) mg/dL Total Bilirubin (0.2-1.0) mg/dL AST (15-37) U/L ALT (10-53) U/L Alkaline Phosphatase (45-117) U/L Ammonia (11-32) mcmol/L Lactate Dehydrogenase (84-246) U/L Total Creatine Kinase (26-192) U/L Troponin I (0.02-0.05) ng/mL B-Natriuretic Peptide (0-100) pg/mL Total Protein (6.4-8.2) g/dL Albumin (3.4-5.0) g/dL TSH (0.358-3.740) uIU/mL Nasal Screen MRSA (PCR) Not detected (Negative) Vancomycin Trough (5.0-10.0) mcg/mL Random Vancomycin Comment 03/19/18 03/19/18 03/19/18 Range/Units 00:48 04:02 04:33 WBC (4.0-11.0) th/mm3 RBC (4.00-5.30) mil/mm3 Hgb (11.6-15.3) gm/dL Hct (35.0-46.0) % MCV (80.0-100.0) fL MCH (27.0-34.0) pg MCHC (32.0-36.0) % RDW (11.6-17.2) % Plt Count (150-450) th/mm3 MPV (7.0-11.0) fL Prelim Diff (Auto) Neut % (Auto) (16.0-70.0) % Lymph % (Auto) (9.0-44.0) % [place] % (Auto) (0.0-8.0) % Eos % (Auto) (0.0-4.0) % Baso % (Auto) (0.0-2.0) % Neut # (Auto) (1.8-7.7) th/mm3 Lymph # (Auto) (1.0-4.8) th/mm3 [place] # (Auto) (0.0-0.9) th/mm3 Eos # (Auto) (0.0-0.4) th/mm3 Baso # (Auto) (0.0-0.2) th/mm3 WBC Differential Diff Scan Differential Comment PT (9.8-11.6) sec INR Ratio APTT (24.3-30.1) sec Fibrinogen (227-377) mg/dL Puncture Site Right radial Patient Temperature 98.6 O2 Saturation 90 (90-100) % ABG pH 7.26 L* (7.380-7.420) ABG pCO2 35 L (38-42) mmHg ABG pO2 73 (61-120) mmHg ABG HCO3 15 L* (22-26) mmol/L ABG O2 Content 10.3 L (12.0-20.0) Vol % ABG Base Excess -10.3 L (-2-2) mmol/L ABG Methemoglobin 1.8 (0-2) % Trevor Test Present Hemoglobin 8.1 L (12.0-16.0) G/DL Carboxyhemoglobin 1.2 (0-4) % O2 Delivery Device Ventilator Vent Setting Prvc/ac Inspired O2 100 % Critical Value Yes Sodium (136-145) meq/L Potassium (3.5-5.1) meq/L Chloride (98-107) meq/L Carbon Dioxide (21.0-32.0) meq/L Anion Gap (5-15) meq/L BUN (7-18) mg/dL Creatinine (0.50-1.00) mg/dL Estimated GFR (>89) mL/min POC Glucose 297 H (68-110) mg/dl Random Glucose (74-106) mg/dL Lactic Acid (0.4-2.0) mmol/L Calcium (8.5-10.1) mg/dL Prot Corrected Calcium (8.5-10.1) mg/dL Phosphorus (2.5-4.9) mg/dL Magnesium (1.5-2.5) mg/dL Total Bilirubin (0.2-1.0) mg/dL AST (15-37) U/L ALT (10-53) U/L Alkaline Phosphatase (45-117) U/L Ammonia (11-32) mcmol/L Lactate Dehydrogenase (84-246) U/L Total Creatine Kinase (26-192) U/L Troponin I 0.25 H D (0.02-0.05) ng/mL B-Natriuretic Peptide (0-100) pg/mL Total Protein (6.4-8.2) g/dL Albumin (3.4-5.0) g/dL TSH (0.358-3.740) uIU/mL Nasal Screen MRSA (PCR) (Negative) Vancomycin Trough (5.0-10.0) mcg/mL Random Vancomycin Comment 03/19/18 03/19/18 03/19/18 Range/Units 05:23 05:23 05:23 WBC 14.6 H (4.0-11.0) th/mm3 RBC 3.36 L (4.00-5.30) mil/mm3 Hgb 7.5 L (11.6-15.3) gm/dL Hct 24.3 L (35.0-46.0) % MCV 72.3 L (80.0-100.0) fL MCH 22.2 L (27.0-34.0) pg MCHC 30.7 L (32.0-36.0) % RDW 22.2 H (11.6-17.2) % Plt Count 204 D (150-450) th/mm3 MPV 9.1 (7.0-11.0) fL Prelim Diff (Auto) Neut % (Auto) (16.0-70.0) % Lymph % (Auto) (9.0-44.0) % [place] % (Auto) (0.0-8.0) % Eos % (Auto) (0.0-4.0) % Baso % (Auto) (0.0-2.0) % Neut # (Auto) (1.8-7.7) th/mm3 Lymph # (Auto) (1.0-4.8) th/mm3 [place] # (Auto) (0.0-0.9) th/mm3 Eos # (Auto) (0.0-0.4) th/mm3 Baso # (Auto) (0.0-0.2) th/mm3 WBC Differential Diff Scan Differential Comment PT (9.8-11.6) sec INR Ratio APTT (24.3-30.1) sec Fibrinogen (227-377) mg/dL Puncture Site Patient Temperature O2 Saturation (90-100) % ABG pH (7.380-7.420) ABG pCO2 (38-42) mmHg ABG pO2 (61-120) mmHg ABG HCO3 (22-26) mmol/L ABG O2 Content (12.0-20.0) Vol % ABG Base Excess (-2-2) mmol/L ABG Methemoglobin (0-2) % Trevor Test Hemoglobin (12.0-16.0) G/DL Carboxyhemoglobin (0-4) % O2 Delivery Device Vent Setting Inspired O2 % Critical Value Sodium 142 (136-145) meq/L Potassium 4.8 (3.5-5.1) meq/L Chloride 112 H (98-107) meq/L Carbon Dioxide 15.5 L (21.0-32.0) meq/L Anion Gap 15 (5-15) meq/L BUN 54 H (7-18) mg/dL Creatinine 2.11 H (0.50-1.00) mg/dL Estimated GFR 30 L (>89) mL/min POC Glucose (68-110) mg/dl Random Glucose 272 H (74-106) mg/dL Lactic Acid (0.4-2.0) mmol/L Calcium 8.8 D (8.5-10.1) mg/dL Prot Corrected Calcium (8.5-10.1) mg/dL Phosphorus (2.5-4.9) mg/dL Magnesium (1.5-2.5) mg/dL Total Bilirubin 1.2 H (0.2-1.0) mg/dL AST 37 (15-37) U/L ALT 41 (10-53) U/L Alkaline Phosphatase 117 (45-117) U/L Ammonia (11-32) mcmol/L Lactate Dehydrogenase (84-246) U/L Total Creatine Kinase (26-192) U/L Troponin I 0.22 H (0.02-0.05) ng/mL B-Natriuretic Peptide (0-100) pg/mL Total Protein 5.8 L (6.4-8.2) g/dL Albumin 2.5 L (3.4-5.0) g/dL TSH 0.371 (0.358-3.740) uIU/mL Nasal Screen MRSA (PCR) (Negative) Vancomycin Trough 21.6 H (5.0-10.0) mcg/mL Random Vancomycin Comment 03/19/18 03/19/18 03/19/18 Range/Units 05:23 06:06 06:43 WBC (4.0-11.0) th/mm3 RBC (4.00-5.30) mil/mm3 Hgb (11.6-15.3) gm/dL Hct (35.0-46.0) % MCV (80.0-100.0) fL MCH (27.0-34.0) pg MCHC (32.0-36.0) % RDW (11.6-17.2) % Plt Count (150-450) th/mm3 MPV (7.0-11.0) fL Prelim Diff (Auto) Neut % (Auto) (16.0-70.0) % Lymph % (Auto) (9.0-44.0) % [place] % (Auto) (0.0-8.0) % Eos % (Auto) (0.0-4.0) % Baso % (Auto) (0.0-2.0) % Neut # (Auto) (1.8-7.7) th/mm3 Lymph # (Auto) (1.0-4.8) th/mm3 [place] # (Auto) (0.0-0.9) th/mm3 Eos # (Auto) (0.0-0.4) th/mm3 Baso # (Auto) (0.0-0.2) th/mm3 WBC Differential Diff Scan Differential Comment PT 15.0 H (9.8-11.6) sec INR 1.5 Ratio APTT (24.3-30.1) sec Fibrinogen (227-377) mg/dL Puncture Site Patient Temperature O2 Saturation (90-100) % ABG pH (7.380-7.420) ABG pCO2 (38-42) mmHg ABG pO2 (61-120) mmHg ABG HCO3 (22-26) mmol/L ABG O2 Content (12.0-20.0) Vol % ABG Base Excess (-2-2) mmol/L ABG Methemoglobin (0-2) % Trevor Test Hemoglobin (12.0-16.0) G/DL Carboxyhemoglobin (0-4) % O2 Delivery Device Vent Setting Inspired O2 % Critical Value Sodium (136-145) meq/L Potassium (3.5-5.1) meq/L Chloride (98-107) meq/L Carbon Dioxide (21.0-32.0) meq/L Anion Gap (5-15) meq/L BUN (7-18) mg/dL Creatinine (0.50-1.00) mg/dL Estimated GFR (>89) mL/min POC Glucose 289 H 290 H (68-110) mg/dl Random Glucose (74-106) mg/dL Lactic Acid (0.4-2.0) mmol/L Calcium (8.5-10.1) mg/dL Prot Corrected Calcium (8.5-10.1) mg/dL Phosphorus (2.5-4.9) mg/dL Magnesium (1.5-2.5) mg/dL Total Bilirubin (0.2-1.0) mg/dL AST (15-37) U/L ALT (10-53) U/L Alkaline Phosphatase (45-117) U/L Ammonia (11-32) mcmol/L Lactate Dehydrogenase (84-246) U/L Total Creatine Kinase (26-192) U/L Troponin I (0.02-0.05) ng/mL B-Natriuretic Peptide (0-100) pg/mL Total Protein (6.4-8.2) g/dL Albumin (3.4-5.0) g/dL TSH (0.358-3.740) uIU/mL Nasal Screen MRSA (PCR) (Negative) Vancomycin Trough (5.0-10.0) mcg/mL Random Vancomycin Comment 03/19/18 03/19/18 03/19/18 Range/Units 08:20 09:48 11:29 WBC (4.0-11.0) th/mm3 RBC (4.00-5.30) mil/mm3 Hgb (11.6-15.3) gm/dL Hct (35.0-46.0) % MCV (80.0-100.0) fL MCH (27.0-34.0) pg MCHC (32.0-36.0) % RDW (11.6-17.2) % Plt Count (150-450) th/mm3 MPV (7.0-11.0) fL Prelim Diff (Auto) Neut % (Auto) (16.0-70.0) % Lymph % (Auto) (9.0-44.0) % [place] % (Auto) (0.0-8.0) % Eos % (Auto) (0.0-4.0) % Baso % (Auto) (0.0-2.0) % Neut # (Auto) (1.8-7.7) th/mm3 Lymph # (Auto) (1.0-4.8) th/mm3 [place] # (Auto) (0.0-0.9) th/mm3 Eos # (Auto) (0.0-0.4) th/mm3 Baso # (Auto) (0.0-0.2) th/mm3 WBC Differential Diff Scan Differential Comment PT (9.8-11.6) sec INR Ratio APTT (24.3-30.1) sec Fibrinogen (227-377) mg/dL Puncture Site Right radial Patient Temperature 98.6 O2 Saturation 86 L* (90-100) % ABG pH 7.31 L (7.380-7.420) ABG pCO2 40 (38-42) mmHg ABG pO2 62 (61-120) mmHg ABG HCO3 19 L (22-26) mmol/L ABG O2 Content 9.8 L (12.0-20.0) Vol % ABG Base Excess -5.8 L (-2-2) mmol/L ABG Methemoglobin 1.4 (0-2) % Trevor Test Present Hemoglobin 8.1 L (12.0-16.0) G/DL Carboxyhemoglobin 0.0 (0-4) % O2 Delivery Device Ventilator Vent Setting Pc20/ip30/1.05/+10 Inspired O2 100 % Critical Value Yes Sodium (136-145) meq/L Potassium (3.5-5.1) meq/L Chloride (98-107) meq/L Carbon Dioxide (21.0-32.0) meq/L Anion Gap (5-15) meq/L BUN (7-18) mg/dL Creatinine (0.50-1.00) mg/dL Estimated GFR (>89) mL/min POC Glucose 219 H 182 H (68-110) mg/dl Random Glucose (74-106) mg/dL Lactic Acid (0.4-2.0) mmol/L Calcium (8.5-10.1) mg/dL Prot Corrected Calcium (8.5-10.1) mg/dL Phosphorus (2.5-4.9) mg/dL Magnesium (1.5-2.5) mg/dL Total Bilirubin (0.2-1.0) mg/dL AST (15-37) U/L ALT (10-53) U/L Alkaline Phosphatase (45-117) U/L Ammonia (11-32) mcmol/L Lactate Dehydrogenase (84-246) U/L Total Creatine Kinase (26-192) U/L Troponin I (0.02-0.05) ng/mL B-Natriuretic Peptide (0-100) pg/mL Total Protein (6.4-8.2) g/dL Albumin (3.4-5.0) g/dL TSH (0.358-3.740) uIU/mL Nasal Screen MRSA (PCR) (Negative) Vancomycin Trough (5.0-10.0) mcg/mL Random Vancomycin Comment 03/19/18 03/19/18 03/19/18 Range/Units 14:01 14:18 14:30 WBC (4.0-11.0) th/mm3 RBC (4.00-5.30) mil/mm3 Hgb (11.6-15.3) gm/dL Hct (35.0-46.0) % MCV (80.0-100.0) fL MCH (27.0-34.0) pg MCHC (32.0-36.0) % RDW (11.6-17.2) % Plt Count (150-450) th/mm3 MPV (7.0-11.0) fL Prelim Diff (Auto) Neut % (Auto) (16.0-70.0) % Lymph % (Auto) (9.0-44.0) % [place] % (Auto) (0.0-8.0) % Eos % (Auto) (0.0-4.0) % Baso % (Auto) (0.0-2.0) % Neut # (Auto) (1.8-7.7) th/mm3 Lymph # (Auto) (1.0-4.8) th/mm3 [place] # (Auto) (0.0-0.9) th/mm3 Eos # (Auto) (0.0-0.4) th/mm3 Baso # (Auto) (0.0-0.2) th/mm3 WBC Differential Diff Scan Differential Comment PT 18.6 H (9.8-11.6) sec INR 1.8 Ratio APTT 33.6 H D (24.3-30.1) sec Fibrinogen (227-377) mg/dL Puncture Site Art line Patient Temperature 98.6 O2 Saturation 95 (90-100) % ABG pH 7.28 L* (7.380-7.420) ABG pCO2 42 (38-42) mmHg ABG pO2 117 (61-120) mmHg ABG HCO3 19 L (22-26) mmol/L ABG O2 Content 11.5 L (12.0-20.0) Vol % ABG Base Excess -6.5 L (-2-2) mmol/L ABG Methemoglobin 1.2 (0-2) % Trevor Test Hemoglobin 8.5 L (12.0-16.0) G/DL Carboxyhemoglobin 0.0 (0-4) % O2 Delivery Device Ventilator Vent Setting Pc/p30/[id number]/p10/1.1 Inspired O2 100 % Critical Value Yes Sodium (136-145) meq/L Potassium (3.5-5.1) meq/L Chloride (98-107) meq/L Carbon Dioxide (21.0-32.0) meq/L Anion Gap (5-15) meq/L BUN (7-18) mg/dL Creatinine (0.50-1.00) mg/dL Estimated GFR (>89) mL/min POC Glucose 145 H (68-110) mg/dl Random Glucose (74-106) mg/dL Lactic Acid (0.4-2.0) mmol/L Calcium (8.5-10.1) mg/dL Prot Corrected Calcium (8.5-10.1) mg/dL Phosphorus (2.5-4.9) mg/dL Magnesium (1.5-2.5) mg/dL Total Bilirubin (0.2-1.0) mg/dL AST (15-37) U/L ALT (10-53) U/L Alkaline Phosphatase (45-117) U/L Ammonia (11-32) mcmol/L Lactate Dehydrogenase (84-246) U/L Total Creatine Kinase (26-192) U/L Troponin I (0.02-0.05) ng/mL B-Natriuretic Peptide (0-100) pg/mL Total Protein (6.4-8.2) g/dL Albumin (3.4-5.0) g/dL TSH (0.358-3.740) uIU/mL Nasal Screen MRSA (PCR) (Negative) Vancomycin Trough (5.0-10.0) mcg/mL Random Vancomycin Comment 03/19/18 03/19/18 03/19/18 Range/Units 14:30 14:30 16:47 WBC 15.7 H (4.0-11.0) th/mm3 RBC 3.70 L (4.00-5.30) mil/mm3 Hgb 8.1 L (11.6-15.3) gm/dL Hct 26.3 L (35.0-46.0) % MCV 71.1 L (80.0-100.0) fL MCH 22.0 L (27.0-34.0) pg MCHC 30.9 L (32.0-36.0) % RDW 22.3 H (11.6-17.2) % Plt Count 240 (150-450) th/mm3 MPV 9.3 (7.0-11.0) fL Prelim Diff (Auto) Neut % (Auto) 96.1 H (16.0-70.0) % Lymph % (Auto) 2.3 L (9.0-44.0) % [place] % (Auto) 1.4 (0.0-8.0) % Eos % (Auto) 0.0 (0.0-4.0) % Baso % (Auto) 0.2 (0.0-2.0) % Neut # (Auto) 15.1 H (1.8-7.7) th/mm3 Lymph # (Auto) 0.4 L (1.0-4.8) th/mm3 [place] # (Auto) 0.2 (0.0-0.9) th/mm3 Eos # (Auto) 0.0 (0.0-0.4) th/mm3 Baso # (Auto) 0.0 (0.0-0.2) th/mm3 WBC Differential . Diff Scan Differential Comment Auto diff final PT (9.8-11.6) sec INR Ratio APTT (24.3-30.1) sec Fibrinogen (227-377) mg/dL Puncture Site Patient Temperature O2 Saturation (90-100) % ABG pH (7.380-7.420) ABG pCO2 (38-42) mmHg ABG pO2 (61-120) mmHg ABG HCO3 (22-26) mmol/L ABG O2 Content (12.0-20.0) Vol % ABG Base Excess (-2-2) mmol/L ABG Methemoglobin (0-2) % Trevor Test Hemoglobin (12.0-16.0) G/DL Carboxyhemoglobin (0-4) % O2 Delivery Device Vent Setting Inspired O2 % Critical Value Sodium 144 (136-145) meq/L Potassium 4.2 (3.5-5.1) meq/L Chloride 112 H (98-107) meq/L Carbon Dioxide 22.2 (21.0-32.0) meq/L Anion Gap 10 (5-15) meq/L BUN 52 H (7-18) mg/dL Creatinine 2.15 H (0.50-1.00) mg/dL Estimated GFR 29 L (>89) mL/min POC Glucose 107 (68-110) mg/dl Random Glucose 135 H D (74-106) mg/dL Lactic Acid (0.4-2.0) mmol/L Calcium 8.7 (8.5-10.1) mg/dL Prot Corrected Calcium (8.5-10.1) mg/dL Phosphorus (2.5-4.9) mg/dL Magnesium (1.5-2.5) mg/dL Total Bilirubin (0.2-1.0) mg/dL AST (15-37) U/L ALT (10-53) U/L Alkaline Phosphatase (45-117) U/L Ammonia (11-32) mcmol/L Lactate Dehydrogenase (84-246) U/L Total Creatine Kinase (26-192) U/L Troponin I (0.02-0.05) ng/mL B-Natriuretic Peptide (0-100) pg/mL Total Protein (6.4-8.2) g/dL Albumin (3.4-5.0) g/dL TSH (0.358-3.740) uIU/mL Nasal Screen MRSA (PCR) (Negative) Vancomycin Trough (5.0-10.0) mcg/mL Random Vancomycin Comment 03/19/18 03/19/18 03/19/18 Range/Units 17:00 18:16 19:14 WBC (4.0-11.0) th/mm3 RBC (4.00-5.30) mil/mm3 Hgb (11.6-15.3) gm/dL Hct (35.0-46.0) % MCV (80.0-100.0) fL MCH (27.0-34.0) pg MCHC (32.0-36.0) % RDW (11.6-17.2) % Plt Count (150-450) th/mm3 MPV (7.0-11.0) fL Prelim Diff (Auto) Neut % (Auto) (16.0-70.0) % Lymph % (Auto) (9.0-44.0) % [place] % (Auto) (0.0-8.0) % Eos % (Auto) (0.0-4.0) % Baso % (Auto) (0.0-2.0) % Neut # (Auto) (1.8-7.7) th/mm3 Lymph # (Auto) (1.0-4.8) th/mm3 [place] # (Auto) (0.0-0.9) th/mm3 Eos # (Auto) (0.0-0.4) th/mm3 Baso # (Auto) (0.0-0.2) th/mm3 WBC Differential Diff Scan Differential Comment PT (9.8-11.6) sec INR Ratio APTT (24.3-30.1) sec Fibrinogen (227-377) mg/dL Puncture Site Art line Patient Temperature 98.6 O2 Saturation 97 (90-100) % ABG pH 7.41 (7.380-7.420) ABG pCO2 32 L (38-42) mmHg ABG pO2 389 H (61-120) mmHg ABG HCO3 20 L (22-26) mmol/L ABG O2 Content 13.0 (12.0-20.0) Vol % ABG Base Excess -3.9 L (-2-2) mmol/L ABG Methemoglobin 1.9 (0-2) % Trevor Test Hemoglobin 8.8 L (12.0-16.0) G/DL Carboxyhemoglobin 1.0 (0-4) % O2 Delivery Device Ventilator Vent Setting Pc/ac Inspired O2 100 % Critical Value No Sodium (136-145) meq/L Potassium (3.5-5.1) meq/L Chloride (98-107) meq/L Carbon Dioxide (21.0-32.0) meq/L Anion Gap (5-15) meq/L BUN (7-18) mg/dL Creatinine (0.50-1.00) mg/dL Estimated GFR (>89) mL/min POC Glucose 131 H 128 H (68-110) mg/dl Random Glucose (74-106) mg/dL Lactic Acid (0.4-2.0) mmol/L Calcium (8.5-10.1) mg/dL Prot Corrected Calcium (8.5-10.1) mg/dL Phosphorus (2.5-4.9) mg/dL Magnesium (1.5-2.5) mg/dL Total Bilirubin (0.2-1.0) mg/dL AST (15-37) U/L ALT (10-53) U/L Alkaline Phosphatase (45-117) U/L Ammonia (11-32) mcmol/L Lactate Dehydrogenase (84-246) U/L Total Creatine Kinase (26-192) U/L Troponin I (0.02-0.05) ng/mL B-Natriuretic Peptide (0-100) pg/mL Total Protein (6.4-8.2) g/dL Albumin (3.4-5.0) g/dL TSH (0.358-3.740) uIU/mL Nasal Screen MRSA (PCR) (Negative) Vancomycin Trough (5.0-10.0) mcg/mL Random Vancomycin Comment 03/19/18 03/19/18 03/19/18 Range/Units 20:07 20:45 21:07 WBC (4.0-11.0) th/mm3 RBC (4.00-5.30) mil/mm3 Hgb (11.6-15.3) gm/dL Hct (35.0-46.0) % MCV (80.0-100.0) fL MCH (27.0-34.0) pg MCHC (32.0-36.0) % RDW (11.6-17.2) % Plt Count (150-450) th/mm3 MPV (7.0-11.0) fL Prelim Diff (Auto) Neut % (Auto) (16.0-70.0) % Lymph % (Auto) (9.0-44.0) % [place] % (Auto) (0.0-8.0) % Eos % (Auto) (0.0-4.0) % Baso % (Auto) (0.0-2.0) % Neut # (Auto) (1.8-7.7) th/mm3 Lymph # (Auto) (1.0-4.8) th/mm3 [place] # (Auto) (0.0-0.9) th/mm3 Eos # (Auto) (0.0-0.4) th/mm3 Baso # (Auto) (0.0-0.2) th/mm3 WBC Differential Diff Scan Differential Comment PT (9.8-11.6) sec INR Ratio APTT 36.2 H (24.3-30.1) sec Fibrinogen (227-377) mg/dL Puncture Site Patient Temperature O2 Saturation (90-100) % ABG pH (7.380-7.420) ABG pCO2 (38-42) mmHg ABG pO2 (61-120) mmHg ABG HCO3 (22-26) mmol/L ABG O2 Content (12.0-20.0) Vol % ABG Base Excess (-2-2) mmol/L ABG Methemoglobin (0-2) % Trevor Test Hemoglobin (12.0-16.0) G/DL Carboxyhemoglobin (0-4) % O2 Delivery Device Vent Setting Inspired O2 % Critical Value Sodium (136-145) meq/L Potassium (3.5-5.1) meq/L Chloride (98-107) meq/L Carbon Dioxide (21.0-32.0) meq/L Anion Gap (5-15) meq/L BUN (7-18) mg/dL Creatinine (0.50-1.00) mg/dL Estimated GFR (>89) mL/min POC Glucose 128 H 153 H (68-110) mg/dl Random Glucose (74-106) mg/dL Lactic Acid (0.4-2.0) mmol/L Calcium (8.5-10.1) mg/dL Prot Corrected Calcium (8.5-10.1) mg/dL Phosphorus (2.5-4.9) mg/dL Magnesium (1.5-2.5) mg/dL Total Bilirubin (0.2-1.0) mg/dL AST (15-37) U/L ALT (10-53) U/L Alkaline Phosphatase (45-117) U/L Ammonia (11-32) mcmol/L Lactate Dehydrogenase (84-246) U/L Total Creatine Kinase (26-192) U/L Troponin I (0.02-0.05) ng/mL B-Natriuretic Peptide (0-100) pg/mL Total Protein (6.4-8.2) g/dL Albumin (3.4-5.0) g/dL TSH (0.358-3.740) uIU/mL Nasal Screen MRSA (PCR) (Negative) Vancomycin Trough (5.0-10.0) mcg/mL Random Vancomycin Comment 03/19/18 03/19/18 03/19/18 Range/Units 22:13 22:30 23:03 WBC (4.0-11.0) th/mm3 RBC (4.00-5.30) mil/mm3 Hgb (11.6-15.3) gm/dL Hct (35.0-46.0) % MCV (80.0-100.0) fL MCH (27.0-34.0) pg MCHC (32.0-36.0) % RDW (11.6-17.2) % Plt Count (150-450) th/mm3 MPV (7.0-11.0) fL Prelim Diff (Auto) Neut % (Auto) (16.0-70.0) % Lymph % (Auto) (9.0-44.0) % [place] % (Auto) (0.0-8.0) % Eos % (Auto) (0.0-4.0) % Baso % (Auto) (0.0-2.0) % Neut # (Auto) (1.8-7.7) th/mm3 Lymph # (Auto) (1.0-4.8) th/mm3 [place] # (Auto) (0.0-0.9) th/mm3 Eos # (Auto) (0.0-0.4) th/mm3 Baso # (Auto) (0.0-0.2) th/mm3 WBC Differential Diff Scan Differential Comment PT (9.8-11.6) sec INR Ratio APTT (24.3-30.1) sec Fibrinogen (227-377) mg/dL Puncture Site Patient Temperature O2 Saturation (90-100) % ABG pH (7.380-7.420) ABG pCO2 (38-42) mmHg ABG pO2 (61-120) mmHg ABG HCO3 (22-26) mmol/L ABG O2 Content (12.0-20.0) Vol % ABG Base Excess (-2-2) mmol/L ABG Methemoglobin (0-2) % Trevor Test Hemoglobin (12.0-16.0) G/DL Carboxyhemoglobin (0-4) % O2 Delivery Device Vent Setting Inspired O2 % Critical Value Sodium (136-145) meq/L Potassium 3.5 (3.5-5.1) meq/L Chloride (98-107) meq/L Carbon Dioxide (21.0-32.0) meq/L Anion Gap (5-15) meq/L BUN (7-18) mg/dL Creatinine (0.50-1.00) mg/dL Estimated GFR (>89) mL/min POC Glucose 120 H 128 H (68-110) mg/dl Random Glucose (74-106) mg/dL Lactic Acid (0.4-2.0) mmol/L Calcium (8.5-10.1) mg/dL Prot Corrected Calcium (8.5-10.1) mg/dL Phosphorus (2.5-4.9) mg/dL Magnesium 1.8 (1.5-2.5) mg/dL Total Bilirubin (0.2-1.0) mg/dL AST (15-37) U/L ALT (10-53) U/L Alkaline Phosphatase (45-117) U/L Ammonia (11-32) mcmol/L Lactate Dehydrogenase (84-246) U/L Total Creatine Kinase (26-192) U/L Troponin I (0.02-0.05) ng/mL B-Natriuretic Peptide (0-100) pg/mL Total Protein (6.4-8.2) g/dL Albumin (3.4-5.0) g/dL TSH (0.358-3.740) uIU/mL Nasal Screen MRSA (PCR) (Negative) Vancomycin Trough (5.0-10.0) mcg/mL Random Vancomycin Comment 03/20/18 03/20/18 03/20/18 Range/Units 00:00 00:37 00:40 WBC 13.3 H (4.0-11.0) th/mm3 RBC 3.87 L (4.00-5.30) mil/mm3 Hgb 8.6 L (11.6-15.3) gm/dL Hct 26.8 L (35.0-46.0) % MCV 69.3 L (80.0-100.0) fL MCH 22.2 L (27.0-34.0) pg MCHC 32.0 (32.0-36.0) % RDW 22.2 H (11.6-17.2) % Plt Count 250 (150-450) th/mm3 MPV 8.8 (7.0-11.0) fL Prelim Diff (Auto) Neut % (Auto) 91.9 H (16.0-70.0) % Lymph % (Auto) 3.1 L (9.0-44.0) % [place] % (Auto) 5.0 (0.0-8.0) % Eos % (Auto) 0.0 (0.0-4.0) % Baso % (Auto) 0.0 (0.0-2.0) % Neut # (Auto) 12.2 H (1.8-7.7) th/mm3 Lymph # (Auto) 0.4 L (1.0-4.8) th/mm3 [place] # (Auto) 0.7 (0.0-0.9) th/mm3 Eos # (Auto) 0.0 (0.0-0.4) th/mm3 Baso # (Auto) 0.0 (0.0-0.2) th/mm3 WBC Differential . Diff Scan Differential Comment Auto diff final PT (9.8-11.6) sec INR Ratio APTT (24.3-30.1) sec Fibrinogen (227-377) mg/dL Puncture Site Art line Patient Temperature 98.6 O2 Saturation 97 (90-100) % ABG pH 7.56 H* (7.380-7.420) ABG pCO2 21 L* (38-42) mmHg ABG pO2 264 H (61-120) mmHg ABG HCO3 19 L (22-26) mmol/L ABG O2 Content 13.3 (12.0-20.0) Vol % ABG Base Excess -2.9 L (-2-2) mmol/L ABG Methemoglobin 1.9 (0-2) % Trevor Test Hemoglobin 9.4 L (12.0-16.0) G/DL Carboxyhemoglobin 1.1 (0-4) % O2 Delivery Device Ventilator Vent Setting See comment Inspired O2 75 % Critical Value Yes Sodium (136-145) meq/L Potassium (3.5-5.1) meq/L Chloride (98-107) meq/L Carbon Dioxide (21.0-32.0) meq/L Anion Gap (5-15) meq/L BUN (7-18) mg/dL Creatinine (0.50-1.00) mg/dL Estimated GFR (>89) mL/min POC Glucose 95 (68-110) mg/dl Random Glucose (74-106) mg/dL Lactic Acid (0.4-2.0) mmol/L Calcium (8.5-10.1) mg/dL Prot Corrected Calcium (8.5-10.1) mg/dL Phosphorus (2.5-4.9) mg/dL Magnesium (1.5-2.5) mg/dL Total Bilirubin (0.2-1.0) mg/dL AST (15-37) U/L ALT (10-53) U/L Alkaline Phosphatase (45-117) U/L Ammonia (11-32) mcmol/L Lactate Dehydrogenase (84-246) U/L Total Creatine Kinase (26-192) U/L Troponin I (0.02-0.05) ng/mL B-Natriuretic Peptide (0-100) pg/mL Total Protein (6.4-8.2) g/dL Albumin (3.4-5.0) g/dL TSH (0.358-3.740) uIU/mL Nasal Screen MRSA (PCR) (Negative) Vancomycin Trough (5.0-10.0) mcg/mL Random Vancomycin Comment 03/20/18 03/20/18 03/20/18 Range/Units 00:40 00:40 00:40 WBC (4.0-11.0) th/mm3 RBC (4.00-5.30) mil/mm3 Hgb (11.6-15.3) gm/dL Hct (35.0-46.0) % MCV (80.0-100.0) fL MCH (27.0-34.0) pg MCHC (32.0-36.0) % RDW (11.6-17.2) % Plt Count (150-450) th/mm3 MPV (7.0-11.0) fL Prelim Diff (Auto) Neut % (Auto) (16.0-70.0) % Lymph % (Auto) (9.0-44.0) % [place] % (Auto) (0.0-8.0) % Eos % (Auto) (0.0-4.0) % Baso % (Auto) (0.0-2.0) % Neut # (Auto) (1.8-7.7) th/mm3 Lymph # (Auto) (1.0-4.8) th/mm3 [place] # (Auto) (0.0-0.9) th/mm3 Eos # (Auto) (0.0-0.4) th/mm3 Baso # (Auto) (0.0-0.2) th/mm3 WBC Differential Diff Scan Differential Comment PT 21.9 H (9.8-11.6) sec INR 2.2 Ratio APTT 35.7 H (24.3-30.1) sec Fibrinogen 506 H (227-377) mg/dL Puncture Site Patient Temperature O2 Saturation (90-100) % ABG pH (7.380-7.420) ABG pCO2 (38-42) mmHg ABG pO2 (61-120) mmHg ABG HCO3 (22-26) mmol/L ABG O2 Content (12.0-20.0) Vol % ABG Base Excess (-2-2) mmol/L ABG Methemoglobin (0-2) % Trevor Test Hemoglobin (12.0-16.0) G/DL Carboxyhemoglobin (0-4) % O2 Delivery Device Vent Setting Inspired O2 % Critical Value Sodium 145 (136-145) meq/L Potassium 3.8 (3.5-5.1) meq/L Chloride 111 H (98-107) meq/L Carbon Dioxide 22.1 (21.0-32.0) meq/L Anion Gap 12 (5-15) meq/L BUN 49 H (7-18) mg/dL Creatinine 1.90 H (0.50-1.00) mg/dL Estimated GFR 33 L (>89) mL/min POC Glucose (68-110) mg/dl Random Glucose 138 H (74-106) mg/dL Lactic Acid 1.0 (0.4-2.0) mmol/L Calcium 8.4 L (8.5-10.1) mg/dL Prot Corrected Calcium (8.5-10.1) mg/dL Phosphorus 4.0 (2.5-4.9) mg/dL Magnesium 1.7 (1.5-2.5) mg/dL Total Bilirubin 1.1 H (0.2-1.0) mg/dL AST 28 (15-37) U/L ALT 39 (10-53) U/L Alkaline Phosphatase 114 (45-117) U/L Ammonia (11-32) mcmol/L Lactate Dehydrogenase 349 H (84-246) U/L Total Creatine Kinase 146 (26-192) U/L Troponin I 0.12 H D (0.02-0.05) ng/mL B-Natriuretic Peptide (0-100) pg/mL Total Protein 6.2 L (6.4-8.2) g/dL Albumin 2.6 L (3.4-5.0) g/dL TSH 1.570 (0.358-3.740) uIU/mL Nasal Screen MRSA (PCR) (Negative) Vancomycin Trough (5.0-10.0) mcg/mL Random Vancomycin 43.8 Comment 03/20/18 03/20/18 03/20/18 Range/Units 01:00 02:05 02:57 WBC (4.0-11.0) th/mm3 RBC (4.00-5.30) mil/mm3 Hgb (11.6-15.3) gm/dL Hct (35.0-46.0) % MCV (80.0-100.0) fL MCH (27.0-34.0) pg MCHC (32.0-36.0) % RDW (11.6-17.2) % Plt Count (150-450) th/mm3 MPV (7.0-11.0) fL Prelim Diff (Auto) Neut % (Auto) (16.0-70.0) % Lymph % (Auto) (9.0-44.0) % [place] % (Auto) (0.0-8.0) % Eos % (Auto) (0.0-4.0) % Baso % (Auto) (0.0-2.0) % Neut # (Auto) (1.8-7.7) th/mm3 Lymph # (Auto) (1.0-4.8) th/mm3 [place] # (Auto) (0.0-0.9) th/mm3 Eos # (Auto) (0.0-0.4) th/mm3 Baso # (Auto) (0.0-0.2) th/mm3 WBC Differential Diff Scan Differential Comment PT (9.8-11.6) sec INR Ratio APTT (24.3-30.1) sec Fibrinogen (227-377) mg/dL Puncture Site Patient Temperature O2 Saturation (90-100) % ABG pH (7.380-7.420) ABG pCO2 (38-42) mmHg ABG pO2 (61-120) mmHg ABG HCO3 (22-26) mmol/L ABG O2 Content (12.0-20.0) Vol % ABG Base Excess (-2-2) mmol/L ABG Methemoglobin (0-2) % Trevor Test Hemoglobin (12.0-16.0) G/DL Carboxyhemoglobin (0-4) % O2 Delivery Device Vent Setting Inspired O2 % Critical Value Sodium (136-145) meq/L Potassium (3.5-5.1) meq/L Chloride (98-107) meq/L Carbon Dioxide (21.0-32.0) meq/L Anion Gap (5-15) meq/L BUN (7-18) mg/dL Creatinine (0.50-1.00) mg/dL Estimated GFR (>89) mL/min POC Glucose 113 H 121 H 133 H (68-110) mg/dl Random Glucose (74-106) mg/dL Lactic Acid (0.4-2.0) mmol/L Calcium (8.5-10.1) mg/dL Prot Corrected Calcium (8.5-10.1) mg/dL Phosphorus (2.5-4.9) mg/dL Magnesium (1.5-2.5) mg/dL Total Bilirubin (0.2-1.0) mg/dL AST (15-37) U/L ALT (10-53) U/L Alkaline Phosphatase (45-117) U/L Ammonia (11-32) mcmol/L Lactate Dehydrogenase (84-246) U/L Total Creatine Kinase (26-192) U/L Troponin I (0.02-0.05) ng/mL B-Natriuretic Peptide (0-100) pg/mL Total Protein (6.4-8.2) g/dL Albumin (3.4-5.0) g/dL TSH (0.358-3.740) uIU/mL Nasal Screen MRSA (PCR) (Negative) Vancomycin Trough (5.0-10.0) mcg/mL Random Vancomycin Comment 03/20/18 03/20/18 03/20/18 Range/Units 03:59 05:37 06:09 WBC (4.0-11.0) th/mm3 RBC (4.00-5.30) mil/mm3 Hgb (11.6-15.3) gm/dL Hct (35.0-46.0) % MCV (80.0-100.0) fL MCH (27.0-34.0) pg MCHC (32.0-36.0) % RDW (11.6-17.2) % Plt Count (150-450) th/mm3 MPV (7.0-11.0) fL Prelim Diff (Auto) Neut % (Auto) (16.0-70.0) % Lymph % (Auto) (9.0-44.0) % [place] % (Auto) (0.0-8.0) % Eos % (Auto) (0.0-4.0) % Baso % (Auto) (0.0-2.0) % Neut # (Auto) (1.8-7.7) th/mm3 Lymph # (Auto) (1.0-4.8) th/mm3 [place] # (Auto) (0.0-0.9) th/mm3 Eos # (Auto) (0.0-0.4) th/mm3 Baso # (Auto) (0.0-0.2) th/mm3 WBC Differential Diff Scan Differential Comment PT (9.8-11.6) sec INR Ratio APTT (24.3-30.1) sec Fibrinogen (227-377) mg/dL Puncture Site Patient Temperature O2 Saturation (90-100) % ABG pH (7.380-7.420) ABG pCO2 (38-42) mmHg ABG pO2 (61-120) mmHg ABG HCO3 (22-26) mmol/L ABG O2 Content (12.0-20.0) Vol % ABG Base Excess (-2-2) mmol/L ABG Methemoglobin (0-2) % Trevor Test Hemoglobin (12.0-16.0) G/DL Carboxyhemoglobin (0-4) % O2 Delivery Device Vent Setting Inspired O2 % Critical Value Sodium (136-145) meq/L Potassium (3.5-5.1) meq/L Chloride (98-107) meq/L Carbon Dioxide (21.0-32.0) meq/L Anion Gap (5-15) meq/L BUN (7-18) mg/dL Creatinine (0.50-1.00) mg/dL Estimated GFR (>89) mL/min POC Glucose 150 H 180 H 168 H (68-110) mg/dl Random Glucose (74-106) mg/dL Lactic Acid (0.4-2.0) mmol/L Calcium (8.5-10.1) mg/dL Prot Corrected Calcium (8.5-10.1) mg/dL Phosphorus (2.5-4.9) mg/dL Magnesium (1.5-2.5) mg/dL Total Bilirubin (0.2-1.0) mg/dL AST (15-37) U/L ALT (10-53) U/L Alkaline Phosphatase (45-117) U/L Ammonia (11-32) mcmol/L Lactate Dehydrogenase (84-246) U/L Total Creatine Kinase (26-192) U/L Troponin I (0.02-0.05) ng/mL B-Natriuretic Peptide (0-100) pg/mL Total Protein (6.4-8.2) g/dL Albumin (3.4-5.0) g/dL TSH (0.358-3.740) uIU/mL Nasal Screen MRSA (PCR) (Negative) Vancomycin Trough (5.0-10.0) mcg/mL Random Vancomycin Comment 03/20/18 03/20/18 03/20/18 Range/Units 06:37 06:59 07:25 WBC (4.0-11.0) th/mm3 RBC (4.00-5.30) mil/mm3 Hgb (11.6-15.3) gm/dL Hct (35.0-46.0) % MCV (80.0-100.0) fL MCH (27.0-34.0) pg MCHC (32.0-36.0) % RDW (11.6-17.2) % Plt Count (150-450) th/mm3 MPV (7.0-11.0) fL Prelim Diff (Auto) Neut % (Auto) (16.0-70.0) % Lymph % (Auto) (9.0-44.0) % [place] % (Auto) (0.0-8.0) % Eos % (Auto) (0.0-4.0) % Baso % (Auto) (0.0-2.0) % Neut # (Auto) (1.8-7.7) th/mm3 Lymph # (Auto) (1.0-4.8) th/mm3 [place] # (Auto) (0.0-0.9) th/mm3 Eos # (Auto) (0.0-0.4) th/mm3 Baso # (Auto) (0.0-0.2) th/mm3 WBC Differential Diff Scan Differential Comment PT (9.8-11.6) sec INR Ratio APTT 35.7 H (24.3-30.1) sec Fibrinogen (227-377) mg/dL Puncture Site Art line Patient Temperature 98.6 O2 Saturation 96 (90-100) % ABG pH 7.46 H (7.380-7.420) ABG pCO2 25 L (38-42) mmHg ABG pO2 249 H (61-120) mmHg ABG HCO3 18 L (22-26) mmol/L ABG O2 Content 11.1 L (12.0-20.0) Vol % ABG Base Excess -5.3 L (-2-2) mmol/L ABG Methemoglobin 2.2 H (0-2) % Trevor Test Hemoglobin 7.7 L (12.0-16.0) G/DL Carboxyhemoglobin 0.9 (0-4) % O2 Delivery Device Ventilator Vent Setting See comment Inspired O2 65 % Critical Value No Sodium (136-145) meq/L Potassium (3.5-5.1) meq/L Chloride (98-107) meq/L Carbon Dioxide (21.0-32.0) meq/L Anion Gap (5-15) meq/L BUN (7-18) mg/dL Creatinine (0.50-1.00) mg/dL Estimated GFR (>89) mL/min POC Glucose 167 H (68-110) mg/dl Random Glucose (74-106) mg/dL Lactic Acid (0.4-2.0) mmol/L Calcium (8.5-10.1) mg/dL Prot Corrected Calcium (8.5-10.1) mg/dL Phosphorus (2.5-4.9) mg/dL Magnesium (1.5-2.5) mg/dL Total Bilirubin (0.2-1.0) mg/dL AST (15-37) U/L ALT (10-53) U/L Alkaline Phosphatase (45-117) U/L Ammonia (11-32) mcmol/L Lactate Dehydrogenase (84-246) U/L Total Creatine Kinase (26-192) U/L Troponin I (0.02-0.05) ng/mL B-Natriuretic Peptide (0-100) pg/mL Total Protein (6.4-8.2) g/dL Albumin (3.4-5.0) g/dL TSH (0.358-3.740) uIU/mL Nasal Screen MRSA (PCR) (Negative) Vancomycin Trough (5.0-10.0) mcg/mL Random Vancomycin Comment 03/20/18 03/20/18 03/20/18 Range/Units 08:30 08:30 08:32 WBC 10.6 (4.0-11.0) th/mm3 RBC 3.75 L (4.00-5.30) mil/mm3 Hgb 8.4 L (11.6-15.3) gm/dL Hct 26.4 L (35.0-46.0) % MCV 70.2 L (80.0-100.0) fL MCH 22.3 L (27.0-34.0) pg MCHC 31.7 L (32.0-36.0) % RDW 22.2 H (11.6-17.2) % Plt Count 231 (150-450) th/mm3 MPV 8.5 (7.0-11.0) fL Prelim Diff (Auto) Neut % (Auto) (16.0-70.0) % Lymph % (Auto) (9.0-44.0) % [place] % (Auto) (0.0-8.0) % Eos % (Auto) (0.0-4.0) % Baso % (Auto) (0.0-2.0) % Neut # (Auto) (1.8-7.7) th/mm3 Lymph # (Auto) (1.0-4.8) th/mm3 [place] # (Auto) (0.0-0.9) th/mm3 Eos # (Auto) (0.0-0.4) th/mm3 Baso # (Auto) (0.0-0.2) th/mm3 WBC Differential Diff Scan Differential Comment PT (9.8-11.6) sec INR Ratio APTT (24.3-30.1) sec Fibrinogen (227-377) mg/dL Puncture Site Patient Temperature O2 Saturation (90-100) % ABG pH (7.380-7.420) ABG pCO2 (38-42) mmHg ABG pO2 (61-120) mmHg ABG HCO3 (22-26) mmol/L ABG O2 Content (12.0-20.0) Vol % ABG Base Excess (-2-2) mmol/L ABG Methemoglobin (0-2) % Trevor Test Hemoglobin (12.0-16.0) G/DL Carboxyhemoglobin (0-4) % O2 Delivery Device Vent Setting Inspired O2 % Critical Value Sodium (136-145) meq/L Potassium (3.5-5.1) meq/L Chloride (98-107) meq/L Carbon Dioxide (21.0-32.0) meq/L Anion Gap (5-15) meq/L BUN (7-18) mg/dL Creatinine (0.50-1.00) mg/dL Estimated GFR (>89) mL/min POC Glucose 172 H (68-110) mg/dl Random Glucose (74-106) mg/dL Lactic Acid 1.1 (0.4-2.0) mmol/L Calcium (8.5-10.1) mg/dL Prot Corrected Calcium (8.5-10.1) mg/dL Phosphorus (2.5-4.9) mg/dL Magnesium (1.5-2.5) mg/dL Total Bilirubin (0.2-1.0) mg/dL AST (15-37) U/L ALT (10-53) U/L Alkaline Phosphatase (45-117) U/L Ammonia (11-32) mcmol/L Lactate Dehydrogenase (84-246) U/L Total Creatine Kinase (26-192) U/L Troponin I (0.02-0.05) ng/mL B-Natriuretic Peptide (0-100) pg/mL Total Protein (6.4-8.2) g/dL Albumin (3.4-5.0) g/dL TSH (0.358-3.740) uIU/mL Nasal Screen MRSA (PCR) (Negative) Vancomycin Trough (5.0-10.0) mcg/mL Random Vancomycin Comment 03/20/18 03/20/18 03/20/18 Range/Units 09:32 10:33 11:31 WBC (4.0-11.0) th/mm3 RBC (4.00-5.30) mil/mm3 Hgb (11.6-15.3) gm/dL Hct (35.0-46.0) % MCV (80.0-100.0) fL MCH (27.0-34.0) pg MCHC (32.0-36.0) % RDW (11.6-17.2) % Plt Count (150-450) th/mm3 MPV (7.0-11.0) fL Prelim Diff (Auto) Neut % (Auto) (16.0-70.0) % Lymph % (Auto) (9.0-44.0) % [place] % (Auto) (0.0-8.0) % Eos % (Auto) (0.0-4.0) % Baso % (Auto) (0.0-2.0) % Neut # (Auto) (1.8-7.7) th/mm3 Lymph # (Auto) (1.0-4.8) th/mm3 [place] # (Auto) (0.0-0.9) th/mm3 Eos # (Auto) (0.0-0.4) th/mm3 Baso # (Auto) (0.0-0.2) th/mm3 WBC Differential Diff Scan Differential Comment PT (9.8-11.6) sec INR Ratio APTT (24.3-30.1) sec Fibrinogen (227-377) mg/dL Puncture Site Patient Temperature O2 Saturation (90-100) % ABG pH (7.380-7.420) ABG pCO2 (38-42) mmHg ABG pO2 (61-120) mmHg ABG HCO3 (22-26) mmol/L ABG O2 Content (12.0-20.0) Vol % ABG Base Excess (-2-2) mmol/L ABG Methemoglobin (0-2) % Trevor Test Hemoglobin (12.0-16.0) G/DL Carboxyhemoglobin (0-4) % O2 Delivery Device Vent Setting Inspired O2 % Critical Value Sodium (136-145) meq/L Potassium (3.5-5.1) meq/L Chloride (98-107) meq/L Carbon Dioxide (21.0-32.0) meq/L Anion Gap (5-15) meq/L BUN (7-18) mg/dL Creatinine (0.50-1.00) mg/dL Estimated GFR (>89) mL/min POC Glucose 102 178 H 201 H (68-110) mg/dl Random Glucose (74-106) mg/dL Lactic Acid (0.4-2.0) mmol/L Calcium (8.5-10.1) mg/dL Prot Corrected Calcium (8.5-10.1) mg/dL Phosphorus (2.5-4.9) mg/dL Magnesium (1.5-2.5) mg/dL Total Bilirubin (0.2-1.0) mg/dL AST (15-37) U/L ALT (10-53) U/L Alkaline Phosphatase (45-117) U/L Ammonia (11-32) mcmol/L Lactate Dehydrogenase (84-246) U/L Total Creatine Kinase (26-192) U/L Troponin I (0.02-0.05) ng/mL B-Natriuretic Peptide (0-100) pg/mL Total Protein (6.4-8.2) g/dL Albumin (3.4-5.0) g/dL TSH (0.358-3.740) uIU/mL Nasal Screen MRSA (PCR) (Negative) Vancomycin Trough (5.0-10.0) mcg/mL Random Vancomycin Comment 03/20/18 03/20/18 03/20/18 Range/Units 12:23 12:54 13:31 WBC (4.0-11.0) th/mm3 RBC (4.00-5.30) mil/mm3 Hgb (11.6-15.3) gm/dL Hct (35.0-46.0) % MCV (80.0-100.0) fL MCH (27.0-34.0) pg MCHC (32.0-36.0) % RDW (11.6-17.2) % Plt Count (150-450) th/mm3 MPV (7.0-11.0) fL Prelim Diff (Auto) Neut % (Auto) (16.0-70.0) % Lymph % (Auto) (9.0-44.0) % [place] % (Auto) (0.0-8.0) % Eos % (Auto) (0.0-4.0) % Baso % (Auto) (0.0-2.0) % Neut # (Auto) (1.8-7.7) th/mm3 Lymph # (Auto) (1.0-4.8) th/mm3 [place] # (Auto) (0.0-0.9) th/mm3 Eos # (Auto) (0.0-0.4) th/mm3 Baso # (Auto) (0.0-0.2) th/mm3 WBC Differential Diff Scan Differential Comment PT (9.8-11.6) sec INR Ratio APTT (24.3-30.1) sec Fibrinogen (227-377) mg/dL Puncture Site Art line Patient Temperature 98.6 O2 Saturation 93 (90-100) % ABG pH 7.44 H (7.380-7.420) ABG pCO2 34 L (38-42) mmHg ABG pO2 83 (61-120) mmHg ABG HCO3 23 (22-26) mmol/L ABG O2 Content 12.6 (12.0-20.0) Vol % ABG Base Excess -1.1 (-2-2) mmol/L ABG Methemoglobin 1.2 (0-2) % Trevor Test Hemoglobin 9.6 L (12.0-16.0) G/DL Carboxyhemoglobin 0.1 (0-4) % O2 Delivery Device Ventilator Vent Setting See comments Inspired O2 50 % Critical Value No Sodium (136-145) meq/L Potassium (3.5-5.1) meq/L Chloride (98-107) meq/L Carbon Dioxide (21.0-32.0) meq/L Anion Gap (5-15) meq/L BUN (7-18) mg/dL Creatinine (0.50-1.00) mg/dL Estimated GFR (>89) mL/min POC Glucose 162 H 198 H (68-110) mg/dl Random Glucose (74-106) mg/dL Lactic Acid (0.4-2.0) mmol/L Calcium (8.5-10.1) mg/dL Prot Corrected Calcium (8.5-10.1) mg/dL Phosphorus (2.5-4.9) mg/dL Magnesium (1.5-2.5) mg/dL Total Bilirubin (0.2-1.0) mg/dL AST (15-37) U/L ALT (10-53) U/L Alkaline Phosphatase (45-117) U/L Ammonia (11-32) mcmol/L Lactate Dehydrogenase (84-246) U/L Total Creatine Kinase (26-192) U/L Troponin I (0.02-0.05) ng/mL B-Natriuretic Peptide (0-100) pg/mL Total Protein (6.4-8.2) g/dL Albumin (3.4-5.0) g/dL TSH (0.358-3.740) uIU/mL Nasal Screen MRSA (PCR) (Negative) Vancomycin Trough (5.0-10.0) mcg/mL Random Vancomycin Comment 03/20/18 03/20/18 03/20/18 Range/Units 14:15 14:32 15:00 WBC (4.0-11.0) th/mm3 RBC (4.00-5.30) mil/mm3 Hgb (11.6-15.3) gm/dL Hct (35.0-46.0) % MCV (80.0-100.0) fL MCH (27.0-34.0) pg MCHC (32.0-36.0) % RDW (11.6-17.2) % Plt Count (150-450) th/mm3 MPV (7.0-11.0) fL Prelim Diff (Auto) Neut % (Auto) (16.0-70.0) % Lymph % (Auto) (9.0-44.0) % [place] % (Auto) (0.0-8.0) % Eos % (Auto) (0.0-4.0) % Baso % (Auto) (0.0-2.0) % Neut # (Auto) (1.8-7.7) th/mm3 Lymph # (Auto) (1.0-4.8) th/mm3 [place] # (Auto) (0.0-0.9) th/mm3 Eos # (Auto) (0.0-0.4) th/mm3 Baso # (Auto) (0.0-0.2) th/mm3 WBC Differential Diff Scan Differential Comment PT (9.8-11.6) sec INR Ratio APTT 49.5 H D (24.3-30.1) sec Fibrinogen (227-377) mg/dL Puncture Site Patient Temperature O2 Saturation (90-100) % ABG pH (7.380-7.420) ABG pCO2 (38-42) mmHg ABG pO2 (61-120) mmHg ABG HCO3 (22-26) mmol/L ABG O2 Content (12.0-20.0) Vol % ABG Base Excess (-2-2) mmol/L ABG Methemoglobin (0-2) % Trevor Test Hemoglobin (12.0-16.0) G/DL Carboxyhemoglobin (0-4) % O2 Delivery Device Vent Setting Inspired O2 % Critical Value Sodium 145 (136-145) meq/L Potassium 4.0 (3.5-5.1) meq/L Chloride 110 H (98-107) meq/L Carbon Dioxide 27.3 (21.0-32.0) meq/L Anion Gap 8 (5-15) meq/L BUN 47 H (7-18) mg/dL Creatinine 1.84 H (0.50-1.00) mg/dL Estimated GFR 35 L (>89) mL/min POC Glucose 170 H (68-110) mg/dl Random Glucose 182 H (74-106) mg/dL Lactic Acid (0.4-2.0) mmol/L Calcium 8.0 L (8.5-10.1) mg/dL Prot Corrected Calcium (8.5-10.1) mg/dL Phosphorus (2.5-4.9) mg/dL Magnesium (1.5-2.5) mg/dL Total Bilirubin (0.2-1.0) mg/dL AST (15-37) U/L ALT (10-53) U/L Alkaline Phosphatase (45-117) U/L Ammonia (11-32) mcmol/L Lactate Dehydrogenase (84-246) U/L Total Creatine Kinase (26-192) U/L Troponin I (0.02-0.05) ng/mL B-Natriuretic Peptide (0-100) pg/mL Total Protein (6.4-8.2) g/dL Albumin (3.4-5.0) g/dL TSH (0.358-3.740) uIU/mL Nasal Screen MRSA (PCR) (Negative) Vancomycin Trough (5.0-10.0) mcg/mL Random Vancomycin Comment 03/20/18 03/20/18 03/20/18 Range/Units 15:56 15:58 16:30 WBC (4.0-11.0) th/mm3 RBC (4.00-5.30) mil/mm3 Hgb (11.6-15.3) gm/dL Hct (35.0-46.0) % MCV (80.0-100.0) fL MCH (27.0-34.0) pg MCHC (32.0-36.0) % RDW (11.6-17.2) % Plt Count (150-450) th/mm3 MPV (7.0-11.0) fL Prelim Diff (Auto) Neut % (Auto) (16.0-70.0) % Lymph % (Auto) (9.0-44.0) % [place] % (Auto) (0.0-8.0) % Eos % (Auto) (0.0-4.0) % Baso % (Auto) (0.0-2.0) % Neut # (Auto) (1.8-7.7) th/mm3 Lymph # (Auto) (1.0-4.8) th/mm3 [place] # (Auto) (0.0-0.9) th/mm3 Eos # (Auto) (0.0-0.4) th/mm3 Baso # (Auto) (0.0-0.2) th/mm3 WBC Differential Diff Scan Differential Comment PT (9.8-11.6) sec INR Ratio APTT (24.3-30.1) sec Fibrinogen (227-377) mg/dL Puncture Site Patient Temperature O2 Saturation (90-100) % ABG pH (7.380-7.420) ABG pCO2 (38-42) mmHg ABG pO2 (61-120) mmHg ABG HCO3 (22-26) mmol/L ABG O2 Content (12.0-20.0) Vol % ABG Base Excess (-2-2) mmol/L ABG Methemoglobin (0-2) % Trevor Test Hemoglobin (12.0-16.0) G/DL Carboxyhemoglobin (0-4) % O2 Delivery Device Vent Setting Inspired O2 % Critical Value Sodium (136-145) meq/L Potassium (3.5-5.1) meq/L Chloride (98-107) meq/L Carbon Dioxide (21.0-32.0) meq/L Anion Gap (5-15) meq/L BUN (7-18) mg/dL Creatinine (0.50-1.00) mg/dL Estimated GFR (>89) mL/min POC Glucose 88 177 H 167 H (68-110) mg/dl Random Glucose (74-106) mg/dL Lactic Acid (0.4-2.0) mmol/L Calcium (8.5-10.1) mg/dL Prot Corrected Calcium (8.5-10.1) mg/dL Phosphorus (2.5-4.9) mg/dL Magnesium (1.5-2.5) mg/dL Total Bilirubin (0.2-1.0) mg/dL AST (15-37) U/L ALT (10-53) U/L Alkaline Phosphatase (45-117) U/L Ammonia (11-32) mcmol/L Lactate Dehydrogenase (84-246) U/L Total Creatine Kinase (26-192) U/L Troponin I (0.02-0.05) ng/mL B-Natriuretic Peptide (0-100) pg/mL Total Protein (6.4-8.2) g/dL Albumin (3.4-5.0) g/dL TSH (0.358-3.740) uIU/mL Nasal Screen MRSA (PCR) (Negative) Vancomycin Trough (5.0-10.0) mcg/mL Random Vancomycin Comment 03/20/18 03/20/18 03/20/18 Range/Units 17:36 18:30 18:30 WBC 10.5 (4.0-11.0) th/mm3 RBC 3.77 L (4.00-5.30) mil/mm3 Hgb 8.6 L (11.6-15.3) gm/dL Hct 26.4 L (35.0-46.0) % MCV 70.1 L (80.0-100.0) fL MCH 22.7 L (27.0-34.0) pg MCHC 32.4 (32.0-36.0) % RDW 22.4 H (11.6-17.2) % Plt Count 238 (150-450) th/mm3 MPV 9.2 (7.0-11.0) fL Prelim Diff (Auto) Neut % (Auto) 96.0 H (16.0-70.0) % Lymph % (Auto) 2.3 L (9.0-44.0) % [place] % (Auto) 1.5 (0.0-8.0) % Eos % (Auto) 0.0 (0.0-4.0) % Baso % (Auto) 0.2 (0.0-2.0) % Neut # (Auto) 10.1 H (1.8-7.7) th/mm3 Lymph # (Auto) 0.2 L (1.0-4.8) th/mm3 [place] # (Auto) 0.2 (0.0-0.9) th/mm3 Eos # (Auto) 0.0 (0.0-0.4) th/mm3 Baso # (Auto) 0.0 (0.0-0.2) th/mm3 WBC Differential . Diff Scan Differential Comment Auto diff final PT (9.8-11.6) sec INR Ratio APTT (24.3-30.1) sec Fibrinogen (227-377) mg/dL Puncture Site Patient Temperature O2 Saturation (90-100) % ABG pH (7.380-7.420) ABG pCO2 (38-42) mmHg ABG pO2 (61-120) mmHg ABG HCO3 (22-26) mmol/L ABG O2 Content (12.0-20.0) Vol % ABG Base Excess (-2-2) mmol/L ABG Methemoglobin (0-2) % Trevor Test Hemoglobin (12.0-16.0) G/DL Carboxyhemoglobin (0-4) % O2 Delivery Device Vent Setting Inspired O2 % Critical Value Sodium (136-145) meq/L Potassium (3.5-5.1) meq/L Chloride (98-107) meq/L Carbon Dioxide (21.0-32.0) meq/L Anion Gap (5-15) meq/L BUN (7-18) mg/dL Creatinine (0.50-1.00) mg/dL Estimated GFR (>89) mL/min POC Glucose 173 H 164 H (68-110) mg/dl Random Glucose (74-106) mg/dL Lactic Acid (0.4-2.0) mmol/L Calcium (8.5-10.1) mg/dL Prot Corrected Calcium (8.5-10.1) mg/dL Phosphorus (2.5-4.9) mg/dL Magnesium (1.5-2.5) mg/dL Total Bilirubin (0.2-1.0) mg/dL AST (15-37) U/L ALT (10-53) U/L Alkaline Phosphatase (45-117) U/L Ammonia (11-32) mcmol/L Lactate Dehydrogenase (84-246) U/L Total Creatine Kinase (26-192) U/L Troponin I (0.02-0.05) ng/mL B-Natriuretic Peptide (0-100) pg/mL Total Protein (6.4-8.2) g/dL Albumin (3.4-5.0) g/dL TSH (0.358-3.740) uIU/mL Nasal Screen MRSA (PCR) (Negative) Vancomycin Trough (5.0-10.0) mcg/mL Random Vancomycin Comment 03/20/18 03/20/18 03/20/18 Range/Units 19:18 20:05 21:05 WBC (4.0-11.0) th/mm3 RBC (4.00-5.30) mil/mm3 Hgb (11.6-15.3) gm/dL Hct (35.0-46.0) % MCV (80.0-100.0) fL MCH (27.0-34.0) pg MCHC (32.0-36.0) % RDW (11.6-17.2) % Plt Count (150-450) th/mm3 MPV (7.0-11.0) fL Prelim Diff (Auto) Neut % (Auto) (16.0-70.0) % Lymph % (Auto) (9.0-44.0) % [place] % (Auto) (0.0-8.0) % Eos % (Auto) (0.0-4.0) % Baso % (Auto) (0.0-2.0) % Neut # (Auto) (1.8-7.7) th/mm3 Lymph # (Auto) (1.0-4.8) th/mm3 [place] # (Auto) (0.0-0.9) th/mm3 Eos # (Auto) (0.0-0.4) th/mm3 Baso # (Auto) (0.0-0.2) th/mm3 WBC Differential Diff Scan Differential Comment PT (9.8-11.6) sec INR Ratio APTT 61.6 H D (24.3-30.1) sec Fibrinogen (227-377) mg/dL Puncture Site Patient Temperature O2 Saturation (90-100) % ABG pH (7.380-7.420) ABG pCO2 (38-42) mmHg ABG pO2 (61-120) mmHg ABG HCO3 (22-26) mmol/L ABG O2 Content (12.0-20.0) Vol % ABG Base Excess (-2-2) mmol/L ABG Methemoglobin (0-2) % Trevor Test Hemoglobin (12.0-16.0) G/DL Carboxyhemoglobin (0-4) % O2 Delivery Device Vent Setting Inspired O2 % Critical Value Sodium (136-145) meq/L Potassium (3.5-5.1) meq/L Chloride (98-107) meq/L Carbon Dioxide (21.0-32.0) meq/L Anion Gap (5-15) meq/L BUN (7-18) mg/dL Creatinine (0.50-1.00) mg/dL Estimated GFR (>89) mL/min POC Glucose 131 H 150 H (68-110) mg/dl Random Glucose (74-106) mg/dL Lactic Acid (0.4-2.0) mmol/L Calcium (8.5-10.1) mg/dL Prot Corrected Calcium (8.5-10.1) mg/dL Phosphorus (2.5-4.9) mg/dL Magnesium (1.5-2.5) mg/dL Total Bilirubin (0.2-1.0) mg/dL AST (15-37) U/L ALT (10-53) U/L Alkaline Phosphatase (45-117) U/L Ammonia (11-32) mcmol/L Lactate Dehydrogenase (84-246) U/L Total Creatine Kinase (26-192) U/L Troponin I (0.02-0.05) ng/mL B-Natriuretic Peptide (0-100) pg/mL Total Protein (6.4-8.2) g/dL Albumin (3.4-5.0) g/dL TSH (0.358-3.740) uIU/mL Nasal Screen MRSA (PCR) (Negative) Vancomycin Trough (5.0-10.0) mcg/mL Random Vancomycin Comment 03/20/18 03/20/18 03/20/18 Range/Units 21:07 22:00 22:56 WBC (4.0-11.0) th/mm3 RBC (4.00-5.30) mil/mm3 Hgb (11.6-15.3) gm/dL Hct (35.0-46.0) % MCV (80.0-100.0) fL MCH (27.0-34.0) pg MCHC (32.0-36.0) % RDW (11.6-17.2) % Plt Count (150-450) th/mm3 MPV (7.0-11.0) fL Prelim Diff (Auto) Neut % (Auto) (16.0-70.0) % Lymph % (Auto) (9.0-44.0) % [place] % (Auto) (0.0-8.0) % Eos % (Auto) (0.0-4.0) % Baso % (Auto) (0.0-2.0) % Neut # (Auto) (1.8-7.7) th/mm3 Lymph # (Auto) (1.0-4.8) th/mm3 [place] # (Auto) (0.0-0.9) th/mm3 Eos # (Auto) (0.0-0.4) th/mm3 Baso # (Auto) (0.0-0.2) th/mm3 WBC Differential Diff Scan Differential Comment PT (9.8-11.6) sec INR Ratio APTT (24.3-30.1) sec Fibrinogen (227-377) mg/dL Puncture Site Patient Temperature O2 Saturation (90-100) % ABG pH (7.380-7.420) ABG pCO2 (38-42) mmHg ABG pO2 (61-120) mmHg ABG HCO3 (22-26) mmol/L ABG O2 Content (12.0-20.0) Vol % ABG Base Excess (-2-2) mmol/L ABG Methemoglobin (0-2) % Trevor Test Hemoglobin (12.0-16.0) G/DL Carboxyhemoglobin (0-4) % O2 Delivery Device Vent Setting Inspired O2 % Critical Value Sodium (136-145) meq/L Potassium (3.5-5.1) meq/L Chloride (98-107) meq/L Carbon Dioxide (21.0-32.0) meq/L Anion Gap (5-15) meq/L BUN (7-18) mg/dL Creatinine (0.50-1.00) mg/dL Estimated GFR (>89) mL/min POC Glucose 109 145 H 174 H (68-110) mg/dl Random Glucose (74-106) mg/dL Lactic Acid (0.4-2.0) mmol/L Calcium (8.5-10.1) mg/dL Prot Corrected Calcium (8.5-10.1) mg/dL Phosphorus (2.5-4.9) mg/dL Magnesium (1.5-2.5) mg/dL Total Bilirubin (0.2-1.0) mg/dL AST (15-37) U/L ALT (10-53) U/L Alkaline Phosphatase (45-117) U/L Ammonia (11-32) mcmol/L Lactate Dehydrogenase (84-246) U/L Total Creatine Kinase (26-192) U/L Troponin I (0.02-0.05) ng/mL B-Natriuretic Peptide (0-100) pg/mL Total Protein (6.4-8.2) g/dL Albumin (3.4-5.0) g/dL TSH (0.358-3.740) uIU/mL Nasal Screen MRSA (PCR) (Negative) Vancomycin Trough (5.0-10.0) mcg/mL Random Vancomycin Comment 03/21/18 03/21/18 03/21/18 Range/Units 00:05 00:20 00:20 WBC 7.9 (4.0-11.0) th/mm3 RBC 3.63 L (4.00-5.30) mil/mm3 Hgb 8.0 L (11.6-15.3) gm/dL Hct 25.1 L (35.0-46.0) % MCV 69.2 L (80.0-100.0) fL MCH 22.0 L (27.0-34.0) pg MCHC 31.9 L (32.0-36.0) % RDW 21.8 H (11.6-17.2) % Plt Count 219 (150-450) th/mm3 MPV 8.6 (7.0-11.0) fL Prelim Diff (Auto) Neut % (Auto) 96.0 H (16.0-70.0) % Lymph % (Auto) 2.3 L (9.0-44.0) % [place] % (Auto) 1.6 (0.0-8.0) % Eos % (Auto) 0.0 (0.0-4.0) % Baso % (Auto) 0.1 (0.0-2.0) % Neut # (Auto) 7.5 (1.8-7.7) th/mm3 Lymph # (Auto) 0.2 L (1.0-4.8) th/mm3 [place] # (Auto) 0.1 (0.0-0.9) th/mm3 Eos # (Auto) 0.0 (0.0-0.4) th/mm3 Baso # (Auto) 0.0 (0.0-0.2) th/mm3 WBC Differential . Diff Scan Differential Comment Auto diff final PT (9.8-11.6) sec INR Ratio APTT (24.3-30.1) sec Fibrinogen (227-377) mg/dL Puncture Site Patient Temperature O2 Saturation (90-100) % ABG pH (7.380-7.420) ABG pCO2 (38-42) mmHg ABG pO2 (61-120) mmHg ABG HCO3 (22-26) mmol/L ABG O2 Content (12.0-20.0) Vol % ABG Base Excess (-2-2) mmol/L ABG Methemoglobin (0-2) % Trevro Test Hemoglobin (12.0-16.0) G/DL Carboxyhemoglobin (0-4) % O2 Delivery Device Vent Setting Inspired O2 % Critical Value Sodium 145 (136-145) meq/L Potassium 3.4 L (3.5-5.1) meq/L Chloride 107 (98-107) meq/L Carbon Dioxide 28.6 (21.0-32.0) meq/L Anion Gap 9 (5-15) meq/L BUN 47 H (7-18) mg/dL Creatinine 1.73 H (0.50-1.00) mg/dL Estimated GFR 37 L (>89) mL/min POC Glucose 182 H (68-110) mg/dl Random Glucose 207 H (74-106) mg/dL Lactic Acid (0.4-2.0) mmol/L Calcium 7.8 L (8.5-10.1) mg/dL Prot Corrected Calcium (8.5-10.1) mg/dL Phosphorus 4.2 (2.5-4.9) mg/dL Magnesium 1.7 (1.5-2.5) mg/dL Total Bilirubin 0.8 (0.2-1.0) mg/dL AST 22 (15-37) U/L ALT 33 (10-53) U/L Alkaline Phosphatase 101 (45-117) U/L Ammonia (11-32) mcmol/L Lactate Dehydrogenase (84-246) U/L Total Creatine Kinase (26-192) U/L Troponin I (0.02-0.05) ng/mL B-Natriuretic Peptide (0-100) pg/mL Total Protein 5.9 L (6.4-8.2) g/dL Albumin 2.3 L (3.4-5.0) g/dL TSH (0.358-3.740) uIU/mL Nasal Screen MRSA (PCR) (Negative) Vancomycin Trough (5.0-10.0) mcg/mL Random Vancomycin 28.0 Comment 03/21/18 03/21/18 03/21/18 Range/Units 00:20 01:26 01:57 WBC (4.0-11.0) th/mm3 RBC (4.00-5.30) mil/mm3 Hgb (11.6-15.3) gm/dL Hct (35.0-46.0) % MCV (80.0-100.0) fL MCH (27.0-34.0) pg MCHC (32.0-36.0) % RDW (11.6-17.2) % Plt Count (150-450) th/mm3 MPV (7.0-11.0) fL Prelim Diff (Auto) Neut % (Auto) (16.0-70.0) % Lymph % (Auto) (9.0-44.0) % [place] % (Auto) (0.0-8.0) % Eos % (Auto) (0.0-4.0) % Baso % (Auto) (0.0-2.0) % Neut # (Auto) (1.8-7.7) th/mm3 Lymph # (Auto) (1.0-4.8) th/mm3 [place] # (Auto) (0.0-0.9) th/mm3 Eos # (Auto) (0.0-0.4) th/mm3 Baso # (Auto) (0.0-0.2) th/mm3 WBC Differential Diff Scan Differential Comment PT (9.8-11.6) sec INR Ratio APTT (24.3-30.1) sec Fibrinogen (227-377) mg/dL Puncture Site Patient Temperature O2 Saturation (90-100) % ABG pH (7.380-7.420) ABG pCO2 (38-42) mmHg ABG pO2 (61-120) mmHg ABG HCO3 (22-26) mmol/L ABG O2 Content (12.0-20.0) Vol % ABG Base Excess (-2-2) mmol/L ABG Methemoglobin (0-2) % Trevor Test Hemoglobin (12.0-16.0) G/DL Carboxyhemoglobin (0-4) % O2 Delivery Device Vent Setting Inspired O2 % Critical Value Sodium (136-145) meq/L Potassium (3.5-5.1) meq/L Chloride (98-107) meq/L Carbon Dioxide (21.0-32.0) meq/L Anion Gap (5-15) meq/L BUN (7-18) mg/dL Creatinine (0.50-1.00) mg/dL Estimated GFR (>89) mL/min POC Glucose 137 H 145 H (68-110) mg/dl Random Glucose (74-106) mg/dL Lactic Acid (0.4-2.0) mmol/L Calcium (8.5-10.1) mg/dL Prot Corrected Calcium (8.5-10.1) mg/dL Phosphorus (2.5-4.9) mg/dL Magnesium (1.5-2.5) mg/dL Total Bilirubin (0.2-1.0) mg/dL AST (15-37) U/L ALT (10-53) U/L Alkaline Phosphatase (45-117) U/L Ammonia 18 (11-32) mcmol/L Lactate Dehydrogenase (84-246) U/L Total Creatine Kinase (26-192) U/L Troponin I (0.02-0.05) ng/mL B-Natriuretic Peptide (0-100) pg/mL Total Protein (6.4-8.2) g/dL Albumin (3.4-5.0) g/dL TSH (0.358-3.740) uIU/mL Nasal Screen MRSA (PCR) (Negative) Vancomycin Trough (5.0-10.0) mcg/mL Random Vancomycin Comment 03/21/18 03/21/18 03/21/18 Range/Units 03:04 03:59 05:20 WBC (4.0-11.0) th/mm3 RBC (4.00-5.30) mil/mm3 Hgb (11.6-15.3) gm/dL Hct (35.0-46.0) % MCV (80.0-100.0) fL MCH (27.0-34.0) pg MCHC (32.0-36.0) % RDW (11.6-17.2) % Plt Count (150-450) th/mm3 MPV (7.0-11.0) fL Prelim Diff (Auto) Neut % (Auto) (16.0-70.0) % Lymph % (Auto) (9.0-44.0) % [place] % (Auto) (0.0-8.0) % Eos % (Auto) (0.0-4.0) % Baso % (Auto) (0.0-2.0) % Neut # (Auto) (1.8-7.7) th/mm3 Lymph # (Auto) (1.0-4.8) th/mm3 [place] # (Auto) (0.0-0.9) th/mm3 Eos # (Auto) (0.0-0.4) th/mm3 Baso # (Auto) (0.0-0.2) th/mm3 WBC Differential Diff Scan Differential Comment PT (9.8-11.6) sec INR Ratio APTT (24.3-30.1) sec Fibrinogen (227-377) mg/dL Puncture Site Patient Temperature O2 Saturation (90-100) % ABG pH (7.380-7.420) ABG pCO2 (38-42) mmHg ABG pO2 (61-120) mmHg ABG HCO3 (22-26) mmol/L ABG O2 Content (12.0-20.0) Vol % ABG Base Excess (-2-2) mmol/L ABG Methemoglobin (0-2) % Trevor Test Hemoglobin (12.0-16.0) G/DL Carboxyhemoglobin (0-4) % O2 Delivery Device Vent Setting Inspired O2 % Critical Value Sodium (136-145) meq/L Potassium (3.5-5.1) meq/L Chloride (98-107) meq/L Carbon Dioxide (21.0-32.0) meq/L Anion Gap (5-15) meq/L BUN (7-18) mg/dL Creatinine (0.50-1.00) mg/dL Estimated GFR (>89) mL/min POC Glucose 164 H 117 H 155 H (68-110) mg/dl Random Glucose (74-106) mg/dL Lactic Acid (0.4-2.0) mmol/L Calcium (8.5-10.1) mg/dL Prot Corrected Calcium (8.5-10.1) mg/dL Phosphorus (2.5-4.9) mg/dL Magnesium (1.5-2.5) mg/dL Total Bilirubin (0.2-1.0) mg/dL AST (15-37) U/L ALT (10-53) U/L Alkaline Phosphatase (45-117) U/L Ammonia (11-32) mcmol/L Lactate Dehydrogenase (84-246) U/L Total Creatine Kinase (26-192) U/L Troponin I (0.02-0.05) ng/mL B-Natriuretic Peptide (0-100) pg/mL Total Protein (6.4-8.2) g/dL Albumin (3.4-5.0) g/dL TSH (0.358-3.740) uIU/mL Nasal Screen MRSA (PCR) (Negative) Vancomycin Trough (5.0-10.0) mcg/mL Random Vancomycin Comment 03/21/18 03/21/18 03/21/18 Range/Units 05:48 06:25 06:58 WBC (4.0-11.0) th/mm3 RBC (4.00-5.30) mil/mm3 Hgb (11.6-15.3) gm/dL Hct (35.0-46.0) % MCV (80.0-100.0) fL MCH (27.0-34.0) pg MCHC (32.0-36.0) % RDW (11.6-17.2) % Plt Count (150-450) th/mm3 MPV (7.0-11.0) fL Prelim Diff (Auto) Neut % (Auto) (16.0-70.0) % Lymph % (Auto) (9.0-44.0) % [place] % (Auto) (0.0-8.0) % Eos % (Auto) (0.0-4.0) % Baso % (Auto) (0.0-2.0) % Neut # (Auto) (1.8-7.7) th/mm3 Lymph # (Auto) (1.0-4.8) th/mm3 [place] # (Auto) (0.0-0.9) th/mm3 Eos # (Auto) (0.0-0.4) th/mm3 Baso # (Auto) (0.0-0.2) th/mm3 WBC Differential Diff Scan Differential Comment PT (9.8-11.6) sec INR Ratio APTT (24.3-30.1) sec Fibrinogen (227-377) mg/dL Puncture Site Ladi Patient Temperature 98.6 O2 Saturation 95 (90-100) % ABG pH 7.56 H* (7.380-7.420) ABG pCO2 29 L (38-42) mmHg ABG pO2 126 H (61-120) mmHg ABG HCO3 26 (22-26) mmol/L ABG O2 Content 14.9 (12.0-20.0) Vol % ABG Base Excess 3.7 H (-2-2) mmol/L ABG Methemoglobin 2.0 (0-2) % Trevor Test Hemoglobin 10.9 L (12.0-16.0) G/DL Carboxyhemoglobin 1.1 (0-4) % O2 Delivery Device Vent Vent Setting See comments Inspired O2 50 % Critical Value Yes Sodium (136-145) meq/L Potassium (3.5-5.1) meq/L Chloride (98-107) meq/L Carbon Dioxide (21.0-32.0) meq/L Anion Gap (5-15) meq/L BUN (7-18) mg/dL Creatinine (0.50-1.00) mg/dL Estimated GFR (>89) mL/min POC Glucose 214 H 172 H (68-110) mg/dl Random Glucose (74-106) mg/dL Lactic Acid (0.4-2.0) mmol/L Calcium (8.5-10.1) mg/dL Prot Corrected Calcium (8.5-10.1) mg/dL Phosphorus (2.5-4.9) mg/dL Magnesium (1.5-2.5) mg/dL Total Bilirubin (0.2-1.0) mg/dL AST (15-37) U/L ALT (10-53) U/L Alkaline Phosphatase (45-117) U/L Ammonia (11-32) mcmol/L Lactate Dehydrogenase (84-246) U/L Total Creatine Kinase (26-192) U/L Troponin I (0.02-0.05) ng/mL B-Natriuretic Peptide (0-100) pg/mL Total Protein (6.4-8.2) g/dL Albumin (3.4-5.0) g/dL TSH (0.358-3.740) uIU/mL Nasal Screen MRSA (PCR) (Negative) Vancomycin Trough (5.0-10.0) mcg/mL Random Vancomycin Comment Imaging Data Radiologist's impression: Chest X-Ray 03/18/18 17:52 CONCLUSION: 1. ET tube in good position. 2. Increasing patchy areas of consolidation in both lower lungs. Chest CT 03/18/18 18:46 CONCLUSION: 1. Bilateral multi segmental consolidation in the mid and lower lungs and small bilateral pleural effusions. 2. Several enlarged middle mediastinal lymph nodes. Head CT 03/18/18 18:46 CONCLUSION: 1. Solitary 3 mm hyperdensity in the central [place] of uncertain significance. Differential considerations include a punctate calcification and acute hemorrhage. 2. No acute findings in the supratentorial brain. Head MRI 03/19/18 00:00 CONCLUSION: 1. No evidence of brainstem hemorrhage. 2. Small foci of encephalomalacia in the left occipital lobe and right cerebellum 3. No evidence of acute infarct, hemorrhage, mass or edema. 4. No evidence of enhancing intra-axial or extra-axial lesions. Venous Doppler Study 03/19/18 00:00 CONCLUSION: The study is negative for bilateral upper extremity deep venous thrombosis. Venous Doppler Study 03/19/18 00:00 CONCLUSION: The study is negative for bilateral lower extremity deep venous thrombosis. Chest X-Ray 03/19/18 07:33 CONCLUSION: 1. Lines and tubes as detailed above without pneumothorax. 2. Radiographic pattern most consistent with pulmonary edema. This is unchanged. Chest X-Ray 03/20/18 06:00 CONCLUSION: No significant change. Chest X-Ray 03/21/18 05:14 CONCLUSION: Decreased bilateral pulmonary opacity suggesting decreased pulmonary edema. ECG Data Attestation: I personally reviewed and interpreted this ECG as follows: Interpretation: EKG is sinus tachycardia bpm 104 left atrial enlargement normal [place] interval QTC 394. Nonspecific ST-T wave abnormalities poor tracing due to motion artifact. Discharge Plan Discharge Disposition Patient Disposition: 30 Still Patient Discharge Condition Condition: Critical Discharge Details Diagnosis: Acute respiratory failure with hypoxemia, HCAP (healthcare-associated pneumonia ), Lactic acid acidosis Physicians Team ED Provider: Dimitri Dahl Primary Care Provider: UNKNOWN, Attending Provider: Marbella Dowd Other Providers: [employer] Status ED Status: Left Department Discharge Information Discharge Date/Time: 03/18/18 21:53
[2018-03-18] MEDS: Propofol 1000 mg/100 ml Inj 1,000 MG/100 ML BOTTLE IV.CONT PRN ×3 (18:04→21:59)
[2018-03-18 18:55] LABS: ABG Base Excess -12.2 mmol/L (-2-2); ABG PCO2 53 mmHg (38-42); ABG PO2 74 mmHg (61-120)
[2018-03-18] MEDS ORDERED: Etomidate Inj 20 MG/10 ML Ampul IV.PUSH ONE (19:00)
[2018-03-18] MEDS ORDERED: Succinylcholine Inj 100 MG/5 ML Syringe IV.PUSH ONE (19:00)
[2018-03-18 19:05] LABS: Baso # (Auto) 0.1 th/mm3 (0.0-0.2); Baso % (Auto) 0.5 % (0.0-2.0); Eos % (Auto) 0.1 % (0.0-4.0); Hematocrit 30.3 % (35.0-46.0); Lymph # (Auto) 2.3 th/mm3 (1.0-4.8); Lymph % (Auto) 14.1 % (9.0-44.0); Mean Corpuscular Hemoglobin 22.5 pg (27.0-34.0); Mean Corpuscular Volume 75.2 fL (80.0-100.0); Mono # (Auto) 0.3 th/mm3 (0.0-0.9); Mono % (Auto) 1.8 % (0.0-8.0); Neut # (Auto) 13.4 th/mm3 (1.8-7.7); Neut % (Auto) 83.5 % (16.0-70.0); Platelet Count 315 th/mm3 (150-450); Red Blood Count 4.03 mil/mm3 (4.00-5.30); Red Cell Distribution Width 22.6 % (11.6-17.2); White Blood Count 16.1 th/mm3 (4.0-11.0)
[2018-03-18] MEDS ORDERED: Midazolam Inj 5 MG/ML 1 ML Vial IV.PUSH ONE (19:10)
--- NOTE | 2018-03-18 19:10 | P.HPCC ---
History of Present Illness Service: Critical Care Medicine Primary Care Physician: UNKNOWN Chief Complaint: PEA cardiac arrest History of Present Illness: 52-year-old female with past medical history of diabetes mellitus, hypertension, hyperlipidemia, atrial fibrillation on chronic anticoagulation with warfarin, chronic diastolic heart failure, asthma, WISAM, peripheral vascular disease, super morbid obesity. She has been at [facility] since 03/02/18. Abeba JACOBO was called due to respiratory distress. When they arrived as she was found to be in respiratory distress with sats in the 70s. She was communicating with them and reportedly said "leave me alone". She then had PEA arrest. She received CPR reportedly 10-15 minutes and received 2 doses of epinephrine. LMA was placed by EVAC. LMA was removed and she was intubated by Dr. Daly after receiving etomidate 20 mg IV and succinylcholine. Later cardioverted in ED for tachycardic rhythm with 100 Joules , rhythm strip unavailable but reportedly not wide complex. She has demonstrated purposeful movements post intubation, and is now on a propofol drip. She was [place] [facility] [place] due to hypoglycemia, fall after isolated episode of diarrhea, hypoxia requiring HFNC. She has chronic interstitial changes on CXR. Reviewed records from [facility] which indicate she completed a 7 day course of Levaquin and has been on a prednisone taper. Current CXR shows bibasilar opacities. WBC is 16 (previously 7.9). She has acute hypercapneic and hypoxemic respiratory failure. - Diagnosis (1) PEA (Pulseless electrical activity) (2) Chronic anticoagulation (3) HLD (hyperlipidemia) (4) HCAP (healthcare-associated pneumonia) (5) Lactic acid acidosis (6) Super obesity (7) WISAM (obstructive sleep apnea) (8) Asthma (9) H/O osteomyelitis (10) Diastolic heart failure (11) Atrial fibrillation (12) Chronic kidney disease, stage III (moderate) (13) Diabetes Inpatient Certification: I certify that the inpatient services were ordered in accordance with Medicare regulations governing the order. This includes certification that hospital inpatient services are reasonable and necessary and in the case of services not specified as inpatient-only under 42 CFR 419.22(n), that they are appropriately provided as inpatient services in accordance to with the 2-midnight benchmark under 43 CFR 412.3(e) Estimated Total Length of Stay (Days): 7 Plans for Post Hospital Care: Other ([facility]) Review of Systems unobtainable due to endotracheal tube PMFSH - History History Provided By: Medical Record - Medical History Medical History: Medical History (Last Updated 03/18/18 @ 21:35 by Marbella Dowd MD) Anxiety Atrial fibrillation CKD (chronic kidney disease) stage 3, GFR 30-59 ml/min Diabetes mellitus Diastolic heart failure Hx of fall Hyperlipidemia Hypertension Major depressive disorder Muscle weakness Obesity PVD (peripheral vascular disease) Respiratory failure with hypoxia - Surgical History Surgical History: Surgical History (Last Updated 03/18/18 @ 20:01 by Marbella Dowd MD) H/O fasciotomy Hx of tonsillectomy S/P debridement S/P popliteal-tibial bypass Status post amputation of great toe Status post amputation of lesser toe of left foot - Family History Family History: Family History (Last Updated 03/18/18 @ 19:58 by Marbella Dowd MD) Brother Diabetes HTN (hypertension) Other Family history of cardiac disorder in father - Tobacco History Smoking Status: Unknown if ever smoked - Alcohol History How Often Do You Have a Drink Containing Alcohol: Unable to Obtain - Substance Use History Substance History: Unable to Obtain - Travel History Recent Travel in the [place] Within the Last 8 Weeks: No Recent Travel Out of the Country Within the Last 8 Weeks: No - Immunization History Tetanus Immunization: Unable to Assess Hx Influenza Vaccine This Season: Unable to Assess Medications and Allergies Active Medications: Active Medications Propofol (Diprivan 1000 Mg/100 Ml Inj) 1,000 mg in 100 mls @ 5.103 mls/hr IV.CONT TITRATE PRN; Protocol PRN Reason: Per Protocol Last Admin: 03/18/18 18:04 Dose: 5 mcg/kg/min, 5.1 mls/hr Sodium Bicarbonate 50 meq/ (Sodium Chloride) 1,000 mls @ 42 mls/hr IV.CONT .[id number] JACKI Allergies Allergy/AdvReac Type Severity Reaction Status Date / Time ibuprofen Allergy Severe MESSES Verified 03/18/18 17:58 WITH KIDNEYS Sulfa (Sulfonamide Allergy Severe HIVES Verified 03/18/18 17:58 Antibiotics) egg Allergy Intermediate Very Upset Verified 03/18/18 17:58 Stomach milk Allergy Unknown Heartburn Verified 03/18/18 17:58 Home Medications Medication Instructions Recorded Confirmed Type allopurinol 300 mg PO DAILY 02/28/18 03/18/18 History atorvastatin 40 mg PO HS 02/28/18 03/18/18 History cholecalciferol (vitamin D3) 5,000 unit PO DAILY 02/28/18 03/18/18 History glipizide 10 mg PO BID 02/28/18 03/18/18 History insulin glargine 50 unit SUB-Q BID 02/28/18 03/18/18 History tjjysy-[id number] [Creon] 1 cap PO TID 02/28/18 03/18/18 History methocarbamol 750 mg PO QID 02/28/18 03/18/18 History nifedipine 90 mg PO DAILY 02/28/18 03/18/18 History omega-3 fatty acids [Fish Oil 1,000 mg PO DAILY 02/28/18 03/18/18 History Concentrate] warfarin [Coumadin] 4 mg PO DAILY@1600 03/18/18 03/18/18 History Results - Labs CBC & Chem 7: 03/19/18 05:23 03/19/18 05:23 Exam Vital signs: Vital Signs 03/18/18 17:24 03/18/18 17:43 03/18/18 17:56 Temperature 98.4 F Pulse Rate 170 H 110 H 103 H Respiratory Rate 14 26 H 15 Blood Pressure 144/94 H 124/58 L 115/82 Pulse Oximetry 96 100 Intake & Output 03/18/18 03/18/18 03/19/18 06:59 18:59 06:59 Weight 170.097 kg Narrative: GENERAL: Morbidly obese female patient who is orotracheally intubated. SKIN: Intertriginous lesion with erythema and satellite lesions under left breast. HEAD: Atraumatic. Normocephalic. EYES: Right pupil 5 mm and ?sluggish minimal reaction. R Corneal reflex was intact in ED. L pupil 3 mm and sluggishly reactive to 2 mm. No scleral icterus. No injection or drainage. ENT: No nasal bleeding or discharge. Mucous membranes pink and moist. NECK: Trachea midline. No JVD. CARDIOVASCULAR: Regular rate and rhythm. No murmurs rubs or gallops. RESPIRATORY: Tachypneic with vent dyssynchrony. 8.[address] with some blood secretions in tubing. Bilateral expiratory wheeze with prolonged expiratory phase. Diminished bibasilar with no appreciable rales. Scattered rhonchi bilaterally. GASTROINTESTINAL: Abdomen obese, soft, non-tender, nondistended. Bowel sounds present. OG in place with some brown output. MUSCULOSKELETAL: Extremities without clubbing, cyanosis. Amputations of all but one toe on left foot. Legs were wrapped in bilateral hitesh bandages up to knee bilaterally on arrival these were removed. 2+ pitting edema bilateral lower extremities. NEUROLOGICAL: Opens eyes spontaneously, sat upright in bed in ED, moving all extremities without apparent focal deficit. Asked her to stay calm in bed, she nodded in apparent understanding. Caprini VTE Risk Assessment Caprini VTE Risk Assessment: Moderate/High Risk (score >= 2) VTE Pharmacological Exception Reason: Intracranial lesions (?pontinue hemorrhage ) Caprini Risk Assessment Model: Point Value = 1 Point Value = 2 Point Value = 3 Point Value = 5 Age 41-60 Minor surgery BMI > 25 kg/m2 Swollen legs Varicose veins or History of unexplained or recurrent spontaneous Oral contraceptives or hormone replacement Sepsis (< 1 month) Serious lung disease, including pneumonia (< 1 month) Abnormal pulmonary function Acute myocardial infarction Congestive heart failure (< 1 month) History of inflammatory bowel disease Medical patient at bed rest Age 61-74 Arthroscopic surgery Major open surgery (> 45 min) Laparoscopic surgery (> 45 min) Malignancy Confined to bed (> 72 hours) Immobilizing plaster cast Central venous access Age >= 75 History of VTE Family history of VTE Factor V Leiden Prothrombin [id number] Lupus anticoagulant Anticardiolipin antibodies Elevated serum homocysteine Heparin-induced thrombocytopenia Other congenital or acquired thrombophilia Stroke (< 1 month) Elective arthroplasty Hip, pelvis, or leg fracture Acute spinal cord injury (< 1 month) Prophylaxis Regimen: Total Risk Factor Score Risk Level Prophylaxis Regimen 0-1 Low Early ambulation 2 Moderate Order ONE of the following: *Sequential Compression Device (SCD) *Heparin 5000 units SQ BID 3-4 Higher Order ONE of the following medications: *Heparin 5000 units SQ TID *Enoxaparin/Lovenox 40 mg SQ daily (WT < 150 kg, CrCl > 30 mL/min) *Enoxaparin/Lovenox 30 mg SQ daily (WT < 150 kg, CrCl > 10-29 mL/min) *Enoxaparin/Lovenox 30 mg SQ BID (WT < 150 kg, CrCl > 30 mL/min) AND/OR *Sequential Compression Device (SCD) 5 or more Highest Order ONE of the following medications: *Heparin 5000 units SQ TID (Preferred with Epidurals) *Enoxaparin/Lovenox 40 mg SQ daily (WT < 150 kg, CrCl > 30 mL/min) *Enoxaparin/Lovenox 30 mg SQ daily (WT < 150 kg, CrCl > 10-29 mL/min) *Enoxaparin/Lovenox 30 mg SQ BID (WT < 150 kg, CrCl > 30 mL/min) AND *Sequential Compression Device (SCD) Assessment and Plan - Problem List (1) PEA (Pulseless electrical activity) Code(s): I46.9 - Cardiac arrest, cause unspecified Status: Acute (2) Chronic anticoagulation Code(s): Z79.01 - group home (current) use of anticoagulants Status: Chronic (3) HLD (hyperlipidemia) Code(s): E78.5 - Hyperlipidemia, unspecified Status: Chronic (4) HCAP (healthcare-associated pneumonia) Code(s): J18.9 - Pneumonia, unspecified organism Status: Acute (5) Lactic acid acidosis Code(s): E87.2 - Acidosis Status: Acute (6) Super obesity Code(s): E66.9 - Obesity, unspecified Status: Chronic (7) WISAM (obstructive sleep apnea) Code(s): G47.33 - Obstructive sleep apnea (adult) (pediatric) Status: Chronic (8) Asthma Code(s): J45.909 - Unspecified asthma, uncomplicated Status: Chronic (9) H/O osteomyelitis Code(s): Z87.39 - Personal history of other diseases of the musculoskeletal system and connective tissue Status: Acute (10) Diastolic heart failure Code(s): I50.30 - Unspecified diastolic (congestive) heart failure Status: Acute (11) Atrial fibrillation Code(s): I48.91 - Unspecified atrial fibrillation Status: Chronic (12) Chronic kidney disease, stage III (moderate) Status: Chronic (13) Diabetes Code(s): E11.9 - Type 2 diabetes mellitus without complications Status: Chronic - Assessment and Plan Plan: NEURO: Acute encephalopathy - secondary to hypercapnia, improving. Propofol and fentanyl drip for sedation. Will use Versed push as needed. Target RASS -3, which is currently necessary to facilitate ventilator synchrony. She does not meet criteria for induced therapeutic hypothermia because she is following commands post CPR. Followed up CT brain -- noted report of ? central pontine hemorrhage vs calcification. Will obtain MRI to evaluate further. For now, will use isotonic fluids, hold anticoagulation, maintain SBP <150 until able to evaluate further. Frequent neurochecks not feasible aside from pupil exam due to vent synchrony and risk of hypoxia. RESP: Acute hypercapnic and hypoxemic respiratory failure Acute asthma exacerbation Healthcare associated pneumonia WISAM Prior tobacco abuse LMA was placed in the field by EVAC. Intubated in ED 03/18 On PRVC. Will adjust current vent settings to reduce respiratory rate to 16. PRVC TV 550 R 16 PEEP 8 IT 1 FIO2 100%. Wean FIO2 for sat >92%. Titrated up on PEEP to 12 overnight to facilitate oxygenation. Avoiding Flolan at this time due to ?pontine hemorrhage but would start this if unable to r/o. With posterior basilar consolidation, would potentially benefit from prone positioning but this is not feasible with her body habitus. Will consider paralytic to facilitate vent synchrony if needed. INR is subtherapeutic. CT obtained with IV contrast. I spoke with Dr. Adorno who states no central PE though contrast bolus suboptimal for ruling out more distal PE. Bibasilar consolidation, bilateral pleural effusions, chronic mediastinal lymphadenopathy, chronic interstitial changes. DuoNeb every 4 hours. Albuterol every 2 hours as needed Solu-Medrol 40 mg IV every 8 hours. Antibiotics as per below. CV: Essential HTN Hyperlipidemia Chronic diastolic heart failure Paroxysmal atrial fibrillation on chronic anti-coagulation with warfarin Lactic acidema Serial lactic acid until clear, holding lasix for now but will likely resume when lactic acid clear. Hold po antihypertensives until able to evaluate MRI. Cardene for SBP <150. Started on Bicarb drip in the ED due to metabolic acidemia, adjusted to 150 MEQ @ 50/hr. Serial EKG And troponin. 2D echo 02/24/18ejection fraction 50%. Wall thickness upper limits of normal. Trace MR. Continue atorvastatin 40 mg p.o. nightly GI: Super morbid obesity History of GERD OGT in place. Start enteral feeds in 24 hours, currently gaining glycemic control. Pancreatic insufficiency Creon 3 times daily FEN/RENAL: Chronic kidney disease stage III [place] catheter was placed in the emergency department. Monitor intake and output. Monitor electrolytes and replace as indicated per ICU electrolyte replacement protocol. Will adjust off protocol if renal function is worsening. Vitamin D deficiency Continue vitamin D supplementation ID: Acute healthcare associated pneumonia Vancomycin pharmacy dosing. Cefepime 2 gram IV q12 Dosed based on creatinine clearance 40 ml/min (Cockcroft-Gault IBW) Azithromycin 500 mg IV daily (watch INR though). (Recently on levaquin) Followup blood cultures. Send sputum culture, Legionella antigen, pneumococcal antigen HEME: Chronic anemia Chronic anti-coagulation with warfarin. INR target is 2-3. She is currently subtherapeutic. Monitor CBC. Warfarin on hold for now while evaluating questionable pontine hemorrhage Monitor daily INR. ENDO: Diabetes mellitus Initially placed on insulin sliding scale every 4 hours. Still poor glycemic control even without tube feeds and expect ongoing issues due to steroids so we will place on insulin drip algorithm 3 until able to gain adequate control PROPH: SCDs for DVT prophylaxis. INR is subtherapeutic. Will hold anticoagulation for now pending MRI brain. Pepcid for stress ulcer prophylaxis. ACCESS: Peripheral IV providing adequate access at this time. Access difficult so may need central line. Patient is critically ill with acute hypoxemic and hypercapnic respiratory failure requiring multiple ventilator changes to address air trapping followed by hypoxia. Hypercapneic and metabolic acidemia. CCT 60 minutes exclusive of separately billable procedures. (13) Diabetes Qualifiers: Diabetes mellitus complication status: with hyperglycemia
[2018-03-18] MEDS ORDERED: fentaNYL Citrate Inj 100 MCG/2 ML Ampul IV.PUSH ONE (19:11)
[2018-03-18 19:15] LABS: Activated Partial Thrombo Time 27.6 sec (24.3-30.1); INR 1.4 Ratio
--- NOTE | 2018-03-18 19:16 | XR ---
EXAM DATE: 03/18/2018 6:47 PM EDT AGE/SEX: 52 years / Female INDICATIONS: . Post intubation. CLINICAL DATA: This is the patient's initial encounter. Patient reports that signs and symptoms have been present for 1 day and indicates a pain score of Nonresponsive. MEDICAL/SURGICAL HISTORY: . Hypertension. Hyperlipidemia. Diabetes. Atrial fibrillation. Conges tive heart failure. COPD. Chronic kidney disease. Left leg DVT. GERD. Methicillin-resistant staphyloc occus aureus. . Toe amputation. Tubal ligation. Tonsillectomy. Mastectomy. COMPARISON: [facility], CHEST SINGLE AP, 02/24/2018. . FINDINGS: ET tube tip is well above the elizabeth. Gastric tube traverses the [id number]. Patchy areas of parti ally consolidated infiltrate are present in the mid and lower lungs bilaterally with loss of delineat ion of portions of both hemidiaphragms. Heart size upper limits normal for AP supine view. CONCLUSION: 1. ET tube in good position. 2. Increasing patchy areas of consolidation in both lower lungs. Electronically signed by: Manish Adorno MD 03/18/2018 7:14 PM EDT
[2018-03-18] MEDS ORDERED: fentaNYL Citrate Inj 250 MCG/5 ML Ampul ONE (19:22)
[2018-03-18] MEDS ORDERED: Midazolam Inj 5 MG/ML 1 ML Vial ONE (19:22)
[2018-03-18] MEDS ORDERED: fentaNYL 10 mcg/mL Premix Drip 2,500 MCG/250 ML BAG ONE (19:22)
[2018-03-18] MEDS: fentaNYL 10 mcg/mL Premix Drip 2,500 MCG/250 ML BAG IV.SIG PRN (19:29)
[2018-03-18 19:32] LABS: Mean Corpuscular HGB Conc 29.8 % (32.0-36.0)
[2018-03-18 19:42] LABS: Albumin 2.1 g/dL (3.4-5.0); Calcium 6.7 mg/dL (8.5-10.1); Carbon Dioxide 10.7 meq/L (21.0-32.0); Potassium 4.4 meq/L (3.5-5.1); Total Protein 5.3 g/dL (6.4-8.2); Troponin I 0.02 ng/mL (0.02-0.05)
[2018-03-18 19:56] LABS: Magnesium 1.5 mg/dL (1.5-2.5); Phosphorus 4.5 mg/dL (2.5-4.9)
[2018-03-18] MEDS ORDERED: Sodium Bicarbonate 8.4% Inj 50 MEQ in Sodium Chloride 0.45 % Inj 950 ML IV.CONT SCH (20:00)
[2018-03-18] MEDS ORDERED: Mag Sulf 1 gm/100 ml Premix 100 ML IV.SIG ONE (20:03)
[2018-03-18] MEDS ORDERED: Acetaminophen 325 MG Tablet PO PRN (20:17)
[2018-03-18] MEDS ORDERED: Bisacodyl 10 MG Supp RECTAL PRN (20:17)
[2018-03-18] MEDS ORDERED: Dextrose 50% in Water 50 ML Vial IV.PUSH PRN (20:25)
[2018-03-18] MEDS ORDERED: Potassium Chloride 25 MEQ Effervescent Tablet PO PRN (20:29)
[2018-03-18] MEDS ORDERED: Magnesium Sulfate Inj 2 GM in Sodium Chlor 0.9% Inj 96 ML IV.SIG PRN (20:29)
[2018-03-18] MEDS ORDERED: Potassium Phosphate 500 MG Soluble Tablet PO PRN ×2 (20:29)
[2018-03-18] MEDS ORDERED: Magnesium Oxide 400 MG Tablet PO PRN (20:29)
[2018-03-18] MEDS ORDERED: Magnesium Sulfate Inj 4 GM in Sodium Chlor 0.9% Inj 92 ML IV.SIG PRN (20:29)
[2018-03-18] MEDS ORDERED: Potassium Phosphate Inj 30 MMOL in Sodium Chlor 0.9% Inj 250 ML IV.SIG PRN (20:29)
[2018-03-18] MEDS ORDERED: Potassium Chlor 40 mEq Premix 40 MEQ/100 ML PIGGYBACK IV.SIG PRN ×2 (20:29)
[2018-03-18] MEDS ORDERED: Potassium Chlor 20 mEq Premix 20 MEQ/100 ML PIGGYBACK IV.SIG PRN (20:29)
[2018-03-18] MEDS ORDERED: Sodium Phosphate Inj 30 MMOL in Sodium Chlor 0.9% Inj 250 ML IV.SIG PRN (20:29)
[2018-03-18] MEDS ORDERED: Vancomycin Consult Pharmacy 1 EACH OTHER SCH (21:00)
[2018-03-18] MEDS ORDERED: Calcium Gluconate Inj 2 GM in Sodium Chlor 0.9% Inj 100 ML IV.SIG ONE (21:00)
--- NOTE | 2018-03-18 21:42 | CT ---
EXAM DATE: 03/18/2018 9:17 PM EDT AGE/SEX: 52 years / Female INDICATIONS: Respiratory distress. CLINICAL DATA: This is the patient's initial encounter. Patient reports that signs and symptoms have been present for 1 day and indicates a pain score of Nonresponsive. MEDICAL/SURGICAL HISTORY: Hypertension. Cardiovascular disease. None. RADIATION DOSE: 20.67 CTDI (mGy) COMPARISON: [facility], CHEST 1V SINGLE AP, 03/18/2018. . TECHNIQUE: Multiple contiguous axial images were obtained through the chest during bolus infusion of 50 ml Visipaque 320 (iodixanol) nonionic water-soluble contrast as a single exam dose. Images wer e obtained in suspended respiration using multiple row detector helical technique. Using automated e xposure control and adjustment of the mA and/or kV according to patient size, radiation dose was kept as low as reasonably achievable to obtain optimal diagnostic quality images. DICOM format image melania a is available electronically for review and comparison. FINDINGS: Lungs: Dense consolidation in the lower lobes bilaterally with air bronchograms. There are also some patchy areas of infiltrate in the anterior mid lung bilaterally. No evidence of pneumothorax. Mediastinum: Enlarged mediastinal nodes including precarinal (1.8 cm) and lateral to the aortic arch (measuring up to 2 cm). Pleurae: Bilateral pleural effusions measuring up to 2.2 cm on the right and 1.3 cm on the left. Axillae: Unremarkable. Bony Structures: Unremarkable. Miscellaneous: Mild goiter. CONCLUSION: 1. Bilateral multi segmental consolidation in the mid and lower lungs and small bilateral pleural ef fusions. 2. Several enlarged middle mediastinal lymph nodes. Electronically signed by: Manish Adorno MD 03/18/2018 9:41 PM EDT
--- NOTE | 2018-03-18 21:55 | CT ---
EXAM DATE: 03/18/2018 9:12 PM EDT AGE/SEX: 52 years / Female INDICATIONS: Unresponsive. CLINICAL DATA: This is the patient's initial encounter. Patient reports that signs and symptoms have been present for 1 day and indicates a pain score of Nonresponsive. MEDICAL/SURGICAL HISTORY: Cardiovascular disease. Hypertension. None. RADIATION DOSE: 66.34 CTDI (mGy) COMPARISON: No prior exams available for comparison. TECHNIQUE: CT of the head without contrast. Using automated exposure control and adjustment of the mA and/or kV according to patient size, radiation dose was kept as low as reasonably achievable to ob tain optimal diagnostic quality images. DICOM format image data is available electronically for revi ew and comparison. FINDINGS: Cerebrum: The ventricles are normal for age. No evidence of midline shift, mass lesion, hemorrhage or acute infarction. No extraaxial fluid collections are seen. Posterior Fossa: There is a 3 mm hypodensity in the central amparo best seen on image #11. This is unc ertain whether this represents a focal calcification or blood products. The fourth ventricle is in th e midline and normal in size. The cerebellum is grossly intact. Extracranial: The visualized portion of the orbits is intact. Skull: The calvaria is intact. No evidence of skull fracture. CONCLUSION: 1. Solitary 3 mm hyperdensity in the central amparo of uncertain significance. Differential considerat ions include a punctate calcification and acute hemorrhage. 2. No acute findings in the supratentorial brain. Electronically signed by: Manish Adorno MD 03/18/2018 9:53 PM EDT
[2018-03-18] MEDS: Insulin NovoLOG Aspart Correctional Sugar Inj SQ SCH ×2 (21:56→23:34)
[2018-03-18] MEDS: Famotidine 20 MG Tablet PO SCH (21:57)
[2018-03-18] MEDS: Senna/Docusate Sodium 8.6/50 MG Tablet PO SCH (21:58)
[2018-03-18] MEDS ORDERED: Vancomycin Inj 2,500 MG in Sodium Chlor 0.9% Inj 500 ML IV.SIG ONE (22:00)
[2018-03-18] MEDS ORDERED: Menthol 5.8 MG Lozenge BUCCAL PRN (22:10)
[2018-03-18] MEDS: MethylPREDNISolone Sod Succinate Inj 40 MG/ML Vial IV.PUSH SCH (22:10)
[2018-03-19] MEDS: Propofol 1000 mg/100 ml Inj 1,000 MG/100 ML BOTTLE IV.CONT PRN ×5 (00:01→11:39)
[2018-03-19 00:46] LABS: ABG Base Excess -10.5 mmol/L (-2-2); ABG PCO2 40 mmHg (38-42); ABG PO2 64 mmHG (61-120)
[2018-03-19] MEDS: Oral Hygiene Kit OROPHARYNG SCH ×4 (01:00→15:58)
[2018-03-19] MEDS ORDERED: niCARdipine Inj 25 MG in Sodium Chlor 0.9% Inj 240 ML IV.CONT PRN (01:12)
[2018-03-19] MEDS ORDERED: Chlorhexidine Gluconate 2% 1 Pack (2 Cloths) TOPICAL PRN (04:00)
[2018-03-19 04:20] LABS: ABG Base Excess -10.3 mmol/L (-2-2); ABG PCO2 35 mmHg (38-42); ABG PO2 73 mmHG (61-120)
[2018-03-19] MEDS: Insulin NovoLOG Aspart Correctional Sugar Inj SQ SCH (04:50)
[2018-03-19] MEDS: Chlorhexidine Gluconate 2% 1 Pack (2 Cloths) TOPICAL SCH (04:51)
[2018-03-19] MEDS: Azithromycin Inj 500 MG in Sodium Chlor 0.9% Inj 250 ML IV.SIG SCH ×2 (04:53→22:38)
[2018-03-19] MEDS ORDERED: Pharmacy Ordered Lab Info OTHER ONE (05:00)
[2018-03-19] MEDS: MethylPREDNISolone Sod Succinate Inj 40 MG/ML Vial IV.PUSH SCH ×3 (05:26→22:37)
[2018-03-19 05:51] LABS: INR 1.5 Ratio
[2018-03-19 05:57] LABS: Hematocrit 24.3 % (35.0-46.0); Hemoglobin 7.5 gm/dL (11.6-15.3); Mean Corpuscular Hemoglobin 22.2 pg (27.0-34.0); Mean Corpuscular Volume 72.3 fL (80.0-100.0); Mean Platelet Volume 9.1 fL (7.0-11.0); Platelet Count 204 th/mm3 (150-450); Red Blood Count 3.36 mil/mm3 (4.00-5.30); Red Cell Distribution Width 22.2 % (11.6-17.2); White Blood Count 14.6 th/mm3 (4.0-11.0)
[2018-03-19 06:02] LABS: Mean Corpuscular HGB Conc 30.7 % (32.0-36.0)
[2018-03-19] MEDS: Insulin Regular (For Infusion) 100 UNIT in Sodium Chlor 0.9% Inj 99 ML IV.CONT PRN (06:10)
[2018-03-19 06:17] LABS: Alanine Aminotransferase 41 U/L (10-53); Albumin 2.5 g/dL (3.4-5.0); Alkaline Phosphatase 117 U/L (45-117); Anion Gap 15 meq/L (5-15); Aspartate Aminotransferase 37 U/L (15-37); Blood Urea Nitrogen 54 mg/dL (7-18); Calcium 8.8 mg/dL (8.5-10.1); Carbon Dioxide 15.5 meq/L (21.0-32.0); Chloride 112 meq/L (98-107); Glomerular Filtration Rate 30 mL/min (>89); Glucose,Random 272 mg/dL (74-106); Potassium 4.8 meq/L (3.5-5.1); Sodium 142 meq/L (136-145); Thyroid Stimulating Hormone 0.371 uIU/mL (0.358-3.740); Total Protein 5.8 g/dL (6.4-8.2); Troponin I 0.22 ng/mL (0.02-0.05)
[2018-03-19] MEDS: Sodium Bicarbonate 8.4% Inj 150 MEQ in Water for Inj, Sterile 850 ML IV.CONT SCH (06:39)
--- NOTE | 2018-03-19 08:14 | P.PCN ---
Date of procedure: 03/19/18 Pre-op diagnosis: Acute hypoxemic respiratory failure/PA arrest Post-op diagnosis: same Procedure: DATE: 03/19/2018 CENTRAL LINE PLACEMENT: Right internal jugular vein. Ultrasound-guided INDICATION: Central venous access CONSENT Informed consent for procedure was not obtaining considered emergent due to hemodynamic instability. DESCRIPTION OF THE PROCEDURE The patient was placed in supine position. The skin was cleansed with Chloraprep. Additional barrier precautions included large sterile drape, sterile gloves, sterile gown, face mask, and hat. 1 % lidocaine was used for local anesthesia. Under direct ultrasound guidance and on initial attempt, the vein was accessed with an introducer needle. The guide wire was advanced and the tract was dilated. Using Seldinger technique a 7 Malay 20 cm antimicrobial coated triple-lumen catheter was advanced to a depth of 16 centimeters. The guide wire was removed. All ports had good return of dark venous blood and flushed easily with saline. The central line was secured with 2.0 silk. A sterile dressing with antibiotic disc was applied. ESTIMATED BLOOD LOSS: Minimal COMPLICATIONS: No apparent complications. STAT chest x-ray pending at time of dictation
--- NOTE | 2018-03-19 08:16 | XR ---
EXAM DATE: 03/19/2018 8:01 AM EDT AGE/SEX: 52 years / Female INDICATIONS: . Central line placement. CLINICAL DATA: This is the patient's subsequent encounter. Patient reports that signs and symptoms h ave been present for 2 days and indicates a pain score of Nonresponsive. MEDICAL/SURGICAL HISTORY: . Hypertension. Hyperlipidemia. Diabetes. Atrial fibrillation. Conges tive heart failure. COPD. Chronic kidney disease. Left leg DVT. GERD. Methicillin-resistant staphyloc occus aureus. . Toe amputation. Tubal ligation. Tonsillectomy. Mastectomy. COMPARISON: [facility] [place], CHEST 1V SINGLE AP, 03/18/2018. . FINDINGS: A single AP view of the chest demonstrates bibasilar intralobular infiltrates with tiny effusions. Ca rdiomegaly. Appearance is stable. A right internal jugular vein central venous line has been placed w ith the tip at the cavoatrial junction. No pneumothorax. Tip of the endotracheal tube 4 cm from the c kathy. Nasogastric tube tip courses off the inferior margin of the film. Bony structures are unremark able. CONCLUSION: 1. Lines and tubes as detailed above without pneumothorax. 2. Radiographic pattern most consistent with pulmonary edema. This is unchanged. Electronically signed by: Manish Ortiz MD 03/19/2018 8:15 AM EDT
--- NOTE | 2018-03-19 08:20 | P.PNCC ---
Subjective Subjective Remarks/Hospital Course: 52-year-old female with past medical history of diabetes mellitus, hypertension, hyperlipidemia, atrial fibrillation on chronic anticoagulation with warfarin, chronic diastolic heart failure, asthma, WISAM, peripheral vascular disease, super morbid obesity. She has been at [facility] since 03/02/18. Abeba JACOBO was called due to respiratory distress. When they arrived as she was found to be in respiratory distress with sats in the 70s. She was communicating with them and reportedly said "leave me alone". She then had PEA arrest. She received CPR reportedly 10-15 minutes and received 2 doses of epinephrine. LMA was placed by EVAC. LMA was removed and she was intubated by Dr. Daly after receiving etomidate 20 mg IV and succinylcholine. She has demonstrated purposeful movements post intubation, and is now on a propofol drip. She was recently admitted to [facility] 02/24-03/02 due to hypoglycemia, fall after isolated episode of diarrhea, hypoxia requiring HFNC. She has chronic interstitial changes on CXR. Reviewed records from [facility] which indicate she completed a 7 day course of Levaquin and has been on a prednisone taper. Current CXR shows bibasilar opacities. WBC is 16 ( previously 7.9). She has acute hypercapneic and hypoxemic respiratory failure. SUBJECTIVE: 03/19: Afebrile. Remains on 100% FiO2 PEEP of 12. Central has been placed for access due to multiple drips. Plan MRI brain today if respiratory status improves. Does not tolerate lying flat. Likely will need epoprostenol and rotaprone Objective Vital Signs / I&O: Vital Signs 03/18/18 17:24 03/18/18 17:43 03/18/18 17:56 Temperature 98.4 F Pulse Rate 170 H 110 H 103 H Respiratory Rate 14 26 H 15 Blood Pressure 144/94 H 124/58 L 115/82 Pulse Oximetry 96 100 03/18/18 18:42 03/18/18 19:00 03/18/18 19:06 Temperature Pulse Rate 92 H 89 Respiratory Rate 15 15 22 Blood Pressure 129/52 L 104/49 L Pulse Oximetry 97 97 03/18/18 20:00 03/18/18 21:30 03/18/18 21:31 Temperature Pulse Rate 92 H 80 Respiratory Rate 18 21 21 Blood Pressure 152/67 H Pulse Oximetry 100 91 L 03/18/18 21:35 03/18/18 21:50 03/18/18 22:00 Temperature 98.7 F Pulse Rate 78 75 Respiratory Rate 24 16 23 Blood Pressure 140/63 154/78 H 137/62 Pulse Oximetry 87 L 97 90 L 03/18/18 23:00 03/19/18 00:00 03/19/18 00:04 Temperature 97.8 F Pulse Rate 74 64 66 Respiratory Rate 18 20 20 Blood Pressure 150/73 H 120/58 L Pulse Oximetry 96 98 97 03/19/18 01:00 03/19/18 02:00 03/19/18 03:00 Temperature Pulse Rate 64 63 57 L Respiratory Rate 20 20 20 Blood Pressure 112/56 L 136/63 134/62 Pulse Oximetry 91 L 93 L 97 03/19/18 03:30 03/19/18 04:00 03/19/18 04:04 Temperature 97.6 F Pulse Rate 56 L 57 L Respiratory Rate 20 20 20 Blood Pressure 134/62 Pulse Oximetry 98 98 03/19/18 06:00 Temperature Pulse Rate 52 L Respiratory Rate Blood Pressure Pulse Oximetry Intake & Output 03/18/18 03/19/18 03/19/18 18:59 06:59 18:59 Intake Total 1705 / 1705 100 / 100 Output Total 1225 / 1225 Balance 480 / 480 100 / 100 Weight 170.097 kg 134 kg Intake: IV 1705 / 1705 100 / 100 Diprivan 1000 mg/100 ml Inj 1, 500 / 500 100 / 100 000 mg In 100 ml @ 5 MCG/KG/MIN 5.103 mls/hr IV.CONT TITRATE PRN Rx#:[id number] Sodium Bicarbonate 8.4% Inj 50 360 / 360 MEQ In 1/2 Normal Saline Inj 950 ML @ 42 mls/hr IV.CONT . [id number] [facility] Rx#:[id number] Calcium Gluconate Inj 2 GM In 120 / 120 NS Inj 100 ML @ 120 mls/hr IV. SIG ONCE ONE Rx#:[id number] Maxipime Inj 2,000 MG In NS Inj 100 / 100 100 ML @ 200 mls/hr IV.SIG Q12H [facility] Rx#:[id number] Magnesium Sulfate 1 gm/D5W 100 100 / 100 ml Premix 100 ML @ 100 mls/hr IV.SIG ONCE ONE Rx#:[id number] Vancomycin Inj 2,500 MG In NS 525 / 525 Inj 500 ML @ 200 mls/hr IV.SIG NOW ONE Rx#:[id number] Output: Urine Amount (Catheter) 800 / 800 Indwelling Urethral Catheter 800 / 800 Gastric Drainage 425 / 425 Left Upper Quadrant Orogastric 425 / 425 Tube Other: Weight On Admission 135 kg Result Diagrams: 03/19/18 05:23 03/19/18 05:23 Imaging: Chest X-Ray 03/18/18 17:52 CONCLUSION: 1. ET tube in good position. 2. Increasing patchy areas of consolidation in both lower lungs. Chest CT 03/18/18 18:46 CONCLUSION: 1. Bilateral multi segmental consolidation in the mid and lower lungs and small bilateral pleural effusions. 2. Several enlarged middle mediastinal lymph nodes. Head CT 03/18/18 18:46 CONCLUSION: 1. Solitary 3 mm hyperdensity in the central [place] of uncertain significance. Differential considerations include a punctate calcification and acute hemorrhage. 2. No acute findings in the supratentorial brain. Chest X-Ray 03/19/18 07:33 CONCLUSION: 1. Lines and tubes as detailed above without pneumothorax. 2. Radiographic pattern most consistent with pulmonary edema. This is unchanged. Objective Remarks: GENERAL: 52-year-old female patient with an elevated BMI who is resting in bed orotracheally intubated. SKIN: Intertriginous lesion with erythema and satellite lesions under left breast. Skin breakdown over lateral aspect of right ankle HEAD: Atraumatic. Normocephalic. EYES: Right pupil 4mm and minimally reactive. L pupil 3 mm and sluggishly reactive to 2 mm. No scleral icterus. No injection or drainage. ENT: No nasal bleeding or discharge. Mucous membranes pink and moist. NECK: Trachea midline. No JVD. CARDIOVASCULAR: Bradycardic, RRR. S1, S2 no S4. Without murmur RESPIRATORY: Diminished bibasilar with no appreciable rales. Scattered rhonchi bilaterally. GASTROINTESTINAL: Abdomen obese, soft, non-tender, nondistended. Bowel sounds present. OG in place with some brown output. 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 Legs revealed 2+ pitting edema bilateral lower extremities. NEUROLOGICAL: Cranial nerves II through XII grossly intact with exception of pupils as above. Withdraws to pain bilateral upper and lower extremities. Winces with central line placement. Assessment and Plan - Assessment and Plan Plan: NEURO/PSYCH: Acute encephalopathy - secondary to hypercapnia, improving. Abnormal brain CT with 3 mm hyperdensity in central [place] Major depressive disorder NOS Chronic opioid use Currently on midazolam drip and fentanyl drip for sedation. Propofol side effect sinus bradycardia. Will discontinue Target RASS -3, which is currently necessary to facilitate ventilator synchrony. Followup CT brain - . Solitary 3 mm hyperdensity in the central [place] of uncertain significance. Differential considerations include a punctate calcification and acute hemorrhage MRA brain ordered with stable. She does not meet criteria for induced therapeutic hypothermia because she is following commands post CPR. Holding oxycodone 10 mg every 6 hours Holding nabumetone 500 mg twice daily, methocarbamol 750 mg 4 times daily and oxycodone 10 mg every 6 hours Holding gabapentin 200 mg 3 times daily Holding tizanidine 4 mg 3 times daily RESP: Acute hypercapnic and hypoxemic respiratory failure Acute asthma exacerbation Healthcare associated pneumonia WISAM/OHS Prior tobacco abuse Bilateral pleural effusions right 2.2 cm. Left 1.3 cm LMA was placed in the field by EVAC. Intubated in ED 03/18 On PC/AC RR 20/insp pres 30/iT 1.2/PEEP 10/FiO2 100 On albuterol/ipratropium aerosols every 4 hours with albuterol aerosols every 2 hours as needed for dyspnea Spontaneous breathing trials when clinically indicated. Not today. CT thorax revealed right middle lobe/lower lobe consolidation left lower lobe consolidation. Right pleural effusion 2.2 cm. Left pleural effusion 1.3 cm Methylprednisolone succinate 40 mg IV every 8 hours. Antibiotics as per below. Serial ABG/chest x-ray in a.m. 03/20 CV: Essential HTN Hyperlipidemia Chronic diastolic heart failure Paroxysmal atrial fibrillation on chronic anti-coagulation with warfarin Peripheral vascular disease/peripheral arterial disease Elevated troponin Holding home medication of clonidine 0.1 mg every 6 hours nifedipine 90 mg daily. Continue carvedilol 6.25 mg twice daily with holding parameters for bradycardia We will start on clevidipine gtt to keep systolic blood pressure less than 140 with possible Holding furosemide 20 mg p.o. daily Bumetanide drip at 0.5 mg and will attempt to diurese 2D echo 02/24/18ejection fraction 50%. Wall thickness upper limits of normal. Trace MR. Lactic acid cleared Continue atorvastatin 40 mg daily Doppler bilateral upper and lower extremities with subtherapeutic INR GI: History of GERD Chronic pancreatitis Hypoalbuminemia N.p.o. status NG tube to low intermittent wall suction Famotidine for GI prophylaxis Docusate sodium/senna 1 tablet twice daily for bowel regimen Resume Creon home medication 3 times daily FEN/RENAL: Chronic kidney disease stage III [place] catheter was placed in the emergency department. Monitor intake and output. Monitor electrolytes and replace as indicated ID: Acute healthcare associated pneumonia Currently on cefepime 2 g IV every 12 hours, azithromycin 5 mg daily and vancomycin Blood cultures 2 03/18 results pending. Sputum, lesion Pneumococcal urinary antigens, influenza a and B and chlamydia and mycoplasma all pending HEME: Leukocytosis Chronic anemia/normocytic Chronic anti-coagulation with warfarin 4 mg daily. INR target is 2-3. She is currently subtherapeutic. Recently INR greater than 15 received vitamin K Monitor CBC daily. Follow trends No indication for transfusion of blood products at this time. Recheck PT/INR/PTT and fibrinogen in a.m. 03/20 ENDO: Diabetes mellitus History of gout Currently on insulin drip at 10 units an hour to maintain euglycemia. Holding glipizide 10 mg twice daily and insulin glargine/home medication Holding allopurinol 300 mg daily/home medication MSK: Elevated BMI Osteoporosis/osteoarthritis Weight loss encouraged PT evaluate and treat Okay to hold cholecalciferol 5000 units daily PROPH: SCDs for DVT prophylaxis. Will need pharmacologic DVT prophylaxis, pending CT brain. ACCESS: Right IJ CVL placed 03/19. Right axillary arterial line placed 03/19. Level 2 follow-up
[2018-03-19 08:38] LABS: ABG Base Excess -5.8 mmol/L (-2-2); ABG PCO2 40 mmHg (38-42); ABG PO2 62 mmHG (61-120)
--- NOTE | 2018-03-19 09:12 | P.PCN ---
Date of procedure: 03/19/18 Pre-op diagnosis: Acute respiratory failure/volume overload/pneumonia Post-op diagnosis: same Procedure: DATE: 03/19/2018 PROCEDURE: Right axillary arterial catheter placement INDICATION: Hemodynamic access DETAILS OF PROCEDURE The patient was placed in supine position. The skin was cleansed with Chloraprep. Additional barrier precautions included large sterile drape, sterile gloves, sterile gown, face mask, and hat. 1% lidocaine was used for local anesthesia. Under direct ultrasound guidance and on the initial attempt, the artery was accessed with an introducer needle. The guide wire was advanced. Using Seldinger technique 20 gauge arterial catheter was placed. The guide wire was removed. The catheter was connected to a transducer line and flushed with saline. The video monitor displayed normal arterial wave forms. The catheter was secured with 2-0 silk. A sterile dressing with antibiotic disc was applied. ESTIMATED BLOOD LOSS: minimal COMPLICATIONS: None
[2018-03-19] MEDS: Chlorhexidine 0.12% Oral Kit 15 ML UDC OROPHARYNG SCH ×2 (09:44→20:30)
[2018-03-19] MEDS: Carvedilol 6.25 MG Tablet PO SCH ×3 (09:45→20:30)
[2018-03-19] MEDS: Lipase/Protease/Amylase 24/76/120 DR Capsule PO SCH ×3 (09:45→17:49)
[2018-03-19] MEDS: Famotidine 20 MG Tablet PO SCH ×2 (09:45→20:30)
[2018-03-19] MEDS: Senna/Docusate Sodium 8.6/50 MG Tablet PO SCH ×2 (09:46→20:30)
[2018-03-19] MEDS ORDERED: Norepinephrine Inj 16 MG in Sodium Chlor 0.9% Inj 234 ML IV.CONT PRN (10:33)
[2018-03-19] MEDS: Bumetanide Inj 25 MG/100 ML BAG IV.CONT SCH (10:42)
[2018-03-19] MEDS: Midazolam 50 MG/50 ML Inj 50 MG/50 ML BAG IV.CONT PRN ×2 (11:19→18:44)
--- NOTE | 2018-03-19 11:49 | US ---
EXAM DATE: 03/19/2018 11:42 AM EDT AGE/SEX: 52 years / Female INDICATIONS: Edema. CLINICAL DATA: This is the patient's subsequent encounter. Patient reports that signs and symptoms h ave been present for 1 day and indicates a pain score of Nonresponsive. MEDICAL/SURGICAL HISTORY: . Afib. CKD. Diabetic. HTN. PVD. Heart failure. . Fasciotomy. Tonsillectomy. Pop-tibial bypass. Toe amputation. COMPARISON: No prior exams available for comparison. FINDINGS: Right Upper Extremity: The vessels are compressible and augmentation response is documented. No fill ing defects are seen. The flow is phasic with respiration. Left Upper Extremity: The vessels are compressible and augmentation response is documented. No filli ng defects are seen. The flow is phasic with respiration. Other: None. CONCLUSION: The study is negative for bilateral upper extremity deep venous thrombosis. Electronically signed by: Po Gonzalez MD 03/19/2018 11:48 AM EDT
--- NOTE | 2018-03-19 11:51 | US ---
EXAM DATE: 03/19/2018 11:40 AM EDT AGE/SEX: 52 years / Female INDICATIONS: Edema. CLINICAL DATA: This is the patient's subsequent encounter. Patient reports that signs and symptoms h ave been present for 1 day and indicates a pain score of Nonresponsive. MEDICAL/SURGICAL HISTORY: . Afib. CKD. Diabetic. HTN. PVD. Heart failure. Non-responsive. Fasciotomy. Tonsillectomy. Toe amputation. COMPARISON: [facility], US LEG BILATERAL VENOUS DOPPLER, 02/20/2018. . TECHNIQUE: Venous ultrasound of both lower extremities was performed from the inguinal ligament to t he proximal calf. Real-time, color Doppler and spectral tracing, compression and augmentation techni ques were used. FINDINGS: Right Leg: Normal compression of the deep venous system from the inguinal region to the proximal patricia f. No echogenic clot is seen. Normal response of the venous system to augmentation and respiration. Left Leg: Normal compression of the deep venous system from the inguinal region to the proximal calf . No echogenic clot is seen. Normal response of the venous system to augmentation and respiration. Other: None. CONCLUSION: The study is negative for bilateral lower extremity deep venous thrombosis. Electronically signed by: Po Gonzalez MD 03/19/2018 11:50 AM EDT
[2018-03-19] MEDS: Hypromellose 0.3% Opth Gel 10 GM Bottle EACH EYE SCH ×2 (12:06→20:29)
[2018-03-19] MEDS: fentaNYL 10 mcg/mL Premix Drip 2,500 MCG/250 ML BAG IV.SIG PRN (12:17)
[2018-03-19] MEDS ORDERED: Gadobutrol PF 7.5 MMOL/7.5 ML Vial (for RAD) IV.SIG ONE (13:16)
--- NOTE | 2018-03-19 13:52 | MR ---
EXAM DATE: 03/19/2018 1:19 PM EDT AGE/SEX: 52 years / Female INDICATIONS: Altered mental status. Hemorrhage. CLINICAL DATA: This is the patient's initial encounter. Patient reports that signs and symptoms have been present for 1 day and indicates a pain score of Nonresponsive. MEDICAL/SURGICAL HISTORY: Non-responsive. Non-responsive. COMPARISON: [facility] [place], [place] HEAD W/O CONTRAST, 03/18/2018. . TECHNIQUE: Multiplanar, multisequence examination of the brain was performed without and with 13 ml G adavist (gadobutrol) contrast as a single exam dose. FINDINGS: Cerebrum: The ventricles are normal for age. No evidence of midline shift, mass lesion, hemorrhage or acute infarction. A small focus of encephalomalacia is identified along the medial left occipital lobe adjacent to the tentorium. There is no evidence of mass effect, edema, restricted diffusion or a bnormal enhancement. No extraaxial fluid collections are seen. The pituitary gland and suprasellar c istern are normal in configuration. White Matter: No significant signal abnormalities are seen in the white matter. Posterior Fossa: The central hyperdensity identified in the midbrain in the brainstem is not apparent on the MRI scan which is more characteristic of a small calcium deposit and not a focal hemorrhage. A small linear T2 hyperintensity is identified along the inferolateral margin of the right cerebellum . This has the appearance of focal encephalomalacia. There is no evidence of mass effect, edema or ab normal enhancement Diffusion Imaging: No focal areas of restricted diffusion are seen. No evidence of acute infarction . Extracranial: The visualized portions of the orbits and paranasal sinuses are unremarkable. Post Contrast: No abnormal areas of parenchymal or dural enhancement. No evidence of blood-brain ba rrier breakdown. CONCLUSION: 1. No evidence of brainstem hemorrhage. 2. Small foci of encephalomalacia in the left occipital lobe and right cerebellum 3. No evidence of acute infarct, hemorrhage, mass or edema. 4. No evidence of enhancing intra-axial or extra-axial lesions. Electronically signed by: Po Gonzalez MD 03/19/2018 1:51 PM EDT
--- NOTE | 2018-03-19 14:13 | P.DIET ---
Nutritional Evaluation Type of nutrition evaluation: initial Nutrition consult regarding: Tube Feeding Nutrition screening: [facility] [place] Objective - Diagnosis Cardiac Arrest - Objective [place] body weight: 100 kg % IBW: 295 Body Weight Used for Calculations: IBW (45.5kg) Energy Needs - Lower Range (kCal/kg): 25 Energy Needs - Upper Range (kCal/kg): 30 Lower Limit kCal/kg (kCals): 1,138 Upper Limit kCal/kg (kCals): 1,365 Lower Limit Protein Factor (Grams per Kg): 2.0 Upper Limit Protein Factor (Grams per Kg): 2.5 Lower Protein Needs (Protein): 91 Upper Protein Needs (Protein): 114 Dietitian Reviewed in Medical Record: Curent medications, Intake & Output, Labs , Medical history Diet Order: NPO Objective Comments: PMH: DM, HTN, HLD, Afib, Diastolic heart failure WISAM, PVD, CKD Stage III, GERD, chronic pancreatitis, super morbid obesity Meds include: Creon, Lipitor, Bumex, Fentanyl, Versed, Propofol (noted MD to stop r/t sinus bradycardia) Labs include: WBC 14.6, Hgb 7.5, Hct 24.3, Cr 2.11, Glu 272, POC Glu 289, 290, 219, 182 UOP: 800mls Assessment Assessment: Pt at nutritional risk r/t current clinical status and the need for a TF for nutrition support. Pt intubated and sedated on fentanyl and versed, noted MD to stop propofol r/t sinus bradycardia. Pt's nutritional needs as assessed above using ASPEN guidelines for protein needs. To best meet pt's needs, recommend TF Vital High Protein with goal rate 55 ml/hr. Noted UOP, Cr level, TF as recommended above will provide pt with 0.87 gms protein per kg actual body wt, which is reasonable for CKD Stg III. Noted high glucose levels, pt on insulin drip. The above TF will provide 1.10 gms carbohydrate per kg actual body wt. TF will provide a total of 1320 kcals, 116 gms protein and 1104 mls free water. Will monitor TF, clinical course. Recommendations: TF: Recommend Vital High Protein with goal rate 55 ml/hr (please see above) Dietitian to Monitor: Renal labs, Glucose level, Intake & Output, Tube feeding tolerance, Weight change, Medical course
[2018-03-19 14:34] LABS: ABG Base Excess -6.5 mmol/L (-2-2); ABG PCO2 42 mmHg (38-42); ABG PO2 117 mmHG (61-120)
[2018-03-19] MEDS ORDERED: Vancomycin Inj 2,000 MG in Sodium Chlor 0.9% Inj 500 ML IV.SIG ONE (15:00)
[2018-03-19 15:26] LABS: Baso % (Auto) 0.2 % (0.0-2.0); Hematocrit 26.3 % (35.0-46.0); Hemoglobin 8.1 gm/dL (11.6-15.3); Lymph # (Auto) 0.4 th/mm3 (1.0-4.8); Lymph % (Auto) 2.3 % (9.0-44.0); Mean Corpuscular Volume 71.1 fL (80.0-100.0); Mean Platelet Volume 9.3 fL (7.0-11.0); Mono # (Auto) 0.2 th/mm3 (0.0-0.9); Mono % (Auto) 1.4 % (0.0-8.0); Neut # (Auto) 15.1 th/mm3 (1.8-7.7); Neut % (Auto) 96.1 % (16.0-70.0); Platelet Count 240 th/mm3 (150-450); Red Cell Distribution Width 22.3 % (11.6-17.2); White Blood Count 15.7 th/mm3 (4.0-11.0)
[2018-03-19 15:29] LABS: Mean Corpuscular HGB Conc 30.9 % (32.0-36.0)
[2018-03-19 15:37] LABS: Activated Partial Thrombo Time 33.6 sec (24.3-30.1); Calcium 8.7 mg/dL (8.5-10.1); Carbon Dioxide 22.2 meq/L (21.0-32.0); INR 1.8 Ratio; Potassium 4.2 meq/L (3.5-5.1); Prothrombin Time 18.6 sec (9.8-11.6)
[2018-03-19] MEDS: Cisatracurium Inj 100 MG in Sodium Chlor 0.9% Inj 240 ML IV.CONT PRN (16:00)
[2018-03-19] MEDS: SODIUM CHLOR 0.9% NEB SCH ×2 (17:00)
[2018-03-19] MEDS: EPOPROSTENOL NEB SCH ×2 (17:00)
[2018-03-19 17:17] LABS: ABG Base Excess -3.9 mmol/L (-2-2); ABG PCO2 32 mmHg (38-42); ABG PO2 389 mmHG (61-120)
[2018-03-19] MEDS: niCARdipine Inj 25 MG in Sodium Chlor 0.9% Inj 240 ML IV.CONT PRN ×2 (18:10→22:39)
--- NOTE | 2018-03-19 20:25 | ECG ---
Date Performed: 03/18/2018 Time Performed: 17:31:04 PTAGE: 52 years EKG: NORMAL SINUS RHTHYM NONSPECIFIC ST-T WAVE CHANGES MARKED ARTIFACT DUE TO BASELINE MAKE SIT HARD TO INTERPRET ABNORMAL ECG INTERPRETATION BASED ON A DEFAULT AGE OF 40 YEARS PREVIOUS TRACING :02/20/2018 @13.53 Since the previous tracing, no significant change note d DOCTOR: Adelfo Huitron Interpretating Date/Time 03/19/2018 20:24:57
--- NOTE | 2018-03-19 20:28 | ECG ---
Date Performed: 03/19/2018 Time Performed: 04:42:08 PTAGE: 52 years EKG: Sinus bradycardia Poor R wave progression - probable normal variant Nonspecific T-wave abno rmality Borderline ECG PREVIOUS TRACING :03/18/18 @17.31 probably no change compared ot the prior tracing except that t he prior tracing had artifact. DOCTOR: Adelfo Huitron Interpretating Date/Time 03/19/2018 20:26:54
[2018-03-19 23:10] LABS: Magnesium 1.8 mg/dL (1.5-2.5); Potassium 3.5 meq/L (3.5-5.1)
[2018-03-19] MEDS: Potassium Chlor 20 mEq Premix 20 MEQ/100 ML PIGGYBACK IV.SIG PRN (23:37)
[2018-03-20 00:51] LABS: ABG Base Excess -2.9 mmol/L (-2-2); ABG PCO2 21 mmHg (38-42); ABG PO2 264 mmHG (61-120)
[2018-03-20] MEDS: SODIUM CHLOR 0.9% NEB SCH ×2 (01:15)
[2018-03-20] MEDS: EPOPROSTENOL NEB SCH ×2 (01:15)
[2018-03-20 01:19] LABS: Hematocrit 26.8 % (35.0-46.0); Hemoglobin 8.6 gm/dL (11.6-15.3); Lymph # (Auto) 0.4 th/mm3 (1.0-4.8); Lymph % (Auto) 3.1 % (9.0-44.0); Mean Corpuscular Hemoglobin 22.2 pg (27.0-34.0); Mean Corpuscular Volume 69.3 fL (80.0-100.0); Mean Platelet Volume 8.8 fL (7.0-11.0); Mono # (Auto) 0.7 th/mm3 (0.0-0.9); Neut # (Auto) 12.2 th/mm3 (1.8-7.7); Neut % (Auto) 91.9 % (16.0-70.0); Platelet Count 250 th/mm3 (150-450); Red Blood Count 3.87 mil/mm3 (4.00-5.30); Red Cell Distribution Width 22.2 % (11.6-17.2); White Blood Count 13.3 th/mm3 (4.0-11.0)
[2018-03-20] MEDS: Oral Hygiene Kit OROPHARYNG SCH ×4 (01:24→16:09)
[2018-03-20 01:32] LABS: Alanine Aminotransferase 39 U/L (10-53); Albumin 2.6 g/dL (3.4-5.0); Anion Gap 12 meq/L (5-15); Aspartate Aminotransferase 28 U/L (15-37); Blood Urea Nitrogen 49 mg/dL (7-18); Calcium 8.4 mg/dL (8.5-10.1); Carbon Dioxide 22.1 meq/L (21.0-32.0); Chloride 111 meq/L (98-107); Glomerular Filtration Rate 33 mL/min (>89); Glucose,Random 138 mg/dL (74-106); Lactate Dehydrogenase 349 U/L (84-246); Magnesium 1.7 mg/dL (1.5-2.5); Potassium 3.8 meq/L (3.5-5.1); Sodium 145 meq/L (136-145)
[2018-03-20] MEDS: Potassium Chlor 20 mEq Premix 20 MEQ/100 ML PIGGYBACK IV.SIG PRN (01:34)
[2018-03-20 01:41] LABS: Alkaline Phosphatase 114 U/L (45-117); Creatine Kinase 146 U/L (26-192); Total Protein 6.2 g/dL (6.4-8.2); Troponin I 0.12 ng/mL (0.02-0.05); Vancomycin,Random 43.8 Comment
[2018-03-20 01:55] LABS: Activated Partial Thrombo Time 35.7 sec (24.3-30.1); INR 2.2 Ratio; Prothrombin Time 21.9 sec (9.8-11.6)
[2018-03-20] MEDS: fentaNYL 10 mcg/mL Premix Drip 2,500 MCG/250 ML BAG IV.SIG PRN ×2 (02:34→18:35)
[2018-03-20] MEDS: Sodium Bicarbonate 8.4% Inj 150 MEQ in Water for Inj, Sterile 850 ML IV.CONT SCH ×2 (02:35→22:43)
[2018-03-20] MEDS: Hypromellose 0.3% Opth Gel 10 GM Bottle EACH EYE SCH ×3 (02:37→20:27)
[2018-03-20] MEDS: Midazolam 50 MG/50 ML Inj 50 MG/50 ML BAG IV.CONT PRN ×3 (03:40→22:42)
[2018-03-20] MEDS: Chlorhexidine Gluconate 2% 1 Pack (2 Cloths) TOPICAL SCH (03:42)
[2018-03-20] MEDS: Cisatracurium Inj 100 MG in Sodium Chlor 0.9% Inj 240 ML IV.CONT PRN ×2 (04:07→18:07)
[2018-03-20] MEDS: niCARdipine Inj 25 MG in Sodium Chlor 0.9% Inj 240 ML IV.CONT PRN ×2 (05:42→14:06)
[2018-03-20] MEDS: MethylPREDNISolone Sod Succinate Inj 40 MG/ML Vial IV.PUSH SCH ×3 (05:44→21:29)
[2018-03-20] MEDS: Insulin Regular (For Infusion) 100 UNIT in Sodium Chlor 0.9% Inj 99 ML IV.CONT PRN (06:33)
--- NOTE | 2018-03-20 06:44 | XR ---
EXAM DATE: 03/20/2018 6:40 AM EDT AGE/SEX: 52 years / Female INDICATIONS: Shortness of breath. CLINICAL DATA: This is the patient's subsequent encounter. Patient reports that signs and symptoms h ave been present for 2 days and indicates a pain score of Nonresponsive. MEDICAL/SURGICAL HISTORY: . Hypertension. Hyperlipidemia. Diabetes. Atrial fibrillation. Conges tive heart failure. COPD. Chronic kidney disease. Left leg DVT. GERD. Methicillin-resistant staphyloc occus aureus. . Toe amputation. Tubal ligation. Tonsillectomy. Mastectomy COMPARISON: [facility] [place], CHEST 1V SINGLE AP, 03/19/2018. . FINDINGS: Diffuse bilateral basilar predominant parenchymal opacities are again seen of both lungs, not signifi cantly changed. No large effusions seen. No pneumothorax. Heart size stable, upper limits of normal. Endotracheal tube tip is approximately 4 cm above the elizabeth. Nasogastric tube courses in the stomach . Right internal jugular central venous catheter with tip in the superior vena cava again seen. CONCLUSION: No significant change. Electronically signed by: Isaak Perez MD 03/20/2018 6:42 AM EDT
[2018-03-20 06:50] LABS: ABG Base Excess -5.3 mmol/L (-2-2); ABG PCO2 25 mmHg (38-42); ABG PO2 249 mmHG (61-120)
[2018-03-20] MEDS: Heparin Drip 25,000 UNIT/250 ML BAG IV.CONT PRN (08:17)
[2018-03-20] MEDS: Mag Sulf 1 gm/100 ml Premix 100 ML IV.SIG SCH ×2 (08:46→10:07)
[2018-03-20] MEDS: Chlorhexidine 0.12% Oral Kit 15 ML UDC OROPHARYNG SCH ×2 (08:46→20:28)
[2018-03-20] MEDS: Potassium Chlor 10 mEq Premix 10 MEQ/100 ML PIGGYBACK IV.SIG SCH ×3 (08:46→11:15)
[2018-03-20] MEDS: Carvedilol 6.25 MG Tablet PO SCH ×2 (08:46→20:28)
[2018-03-20] MEDS: Famotidine 20 MG Tablet PO SCH ×2 (08:47→20:28)
[2018-03-20] MEDS: Lipase/Protease/Amylase 24/76/120 DR Capsule PO SCH ×3 (08:47→17:02)
[2018-03-20] MEDS: Senna/Docusate Sodium 8.6/50 MG Tablet PO SCH ×2 (08:47→20:29)
[2018-03-20 08:49] LABS: Hematocrit 26.4 % (35.0-46.0); Hemoglobin 8.4 gm/dL (11.6-15.3); Mean Corpuscular HGB Conc 31.7 % (32.0-36.0); Mean Corpuscular Hemoglobin 22.3 pg (27.0-34.0); Mean Corpuscular Volume 70.2 fL (80.0-100.0); Mean Platelet Volume 8.5 fL (7.0-11.0); Platelet Count 231 th/mm3 (150-450); Red Blood Count 3.75 mil/mm3 (4.00-5.30); Red Cell Distribution Width 22.2 % (11.6-17.2); White Blood Count 10.6 th/mm3 (4.0-11.0)
[2018-03-20 12:33] LABS: ABG Base Excess -1.1 mmol/L (-2-2); ABG PCO2 34 mmHg (38-42); ABG PO2 83 mmHG (61-120)
--- NOTE | 2018-03-20 14:19 | P.PNWCN ---
Wound Care Nurse Consult Description: Consult for wound management of right leg per Dr Andre Communicated with: VITOR Alanis Recommendation: Leave Left medial lower leg SALARY MANAGER to allow macerated skin to dry out. May skin prep macerated scar tissue with Cavilon barrier film BID to assist in keeping skin dry. Additional information: Right lower leg was visualized with no open areas noted. Attention was then turned to the left lower leg and foot. Left medial lower extremity visualized with a transparent dressing with fluid collection noted. Tegaderm removed to reveal maceration with no open wounds. A foam adhesive dressing was removed from the distal portion of the left foot to reveal only the 4th digit remaining , no open areas noted. Wound/Pressure Injury - Wound Left Lower Medial Leg Wound Type: Maceration Drainage Amount: None Dressing Status: Open to Air
--- NOTE | 2018-03-20 14:53 | P.PNCC ---
Subjective Subjective Remarks/Hospital Course: 52-year-old female with past medical history of diabetes mellitus, hypertension, hyperlipidemia, atrial fibrillation on chronic anticoagulation with warfarin, chronic diastolic heart failure, asthma, WISAM, peripheral vascular disease, super morbid obesity. She has been at [facility] since 03/02/18. Abeba JACOBO was called due to respiratory distress. When they arrived as she was found to be in respiratory distress with sats in the 70s. She was communicating with them and reportedly said "leave me alone". She then had PEA arrest. She received CPR reportedly 10-15 minutes and received 2 doses of epinephrine. LMA was placed by EVAC. LMA was removed and she was intubated by Dr. Daly after receiving etomidate 20 mg IV and succinylcholine. She has demonstrated purposeful movements post intubation, and is now on a propofol drip. She was recently admitted to [facility] 02/24-03/02 due to hypoglycemia, fall after isolated episode of diarrhea, hypoxia requiring HFNC. She has chronic interstitial changes on CXR. Reviewed records from [facility] which indicate she completed a 7 day course of Levaquin and has been on a prednisone taper. Current CXR shows bibasilar opacities. WBC is 16 ( previously 7.9). She has acute hypercapneic and hypoxemic respiratory failure. 03/19: Afebrile. Remains on 100% FiO2 PEEP of 12. Central has been placed for access due to multiple drips. Plan MRI brain today if respiratory status improves. Does not tolerate lying flat. Likely will need epoprostenol and rotaprone SUBJECTIVE: 03/20: Started on epoprostenol and currently on a rotor from bed. Currently on cisatracurium drip at 1 mcg/kg/min. Diuresing well.. Objective Vital Signs / I&O: Vital Signs 03/19/18 16:00 03/19/18 16:43 03/19/18 16:45 Temperature Pulse Rate 54 L 59 L Respiratory Rate 20 20 20 Blood Pressure 137/55 L Pulse Oximetry 100 03/19/18 18:00 03/19/18 20:00 03/19/18 20:18 Temperature 98.2 F Pulse Rate 60 57 L 61 Respiratory Rate 20 20 Blood Pressure 143/51 H Pulse Oximetry 100 100 03/19/18 22:00 03/20/18 00:00 03/20/18 00:05 Temperature 98 F Pulse Rate 78 71 71 Respiratory Rate 20 20 Blood Pressure 145/59 H Pulse Oximetry 100 100 03/20/18 02:00 03/20/18 03:28 03/20/18 04:00 Temperature 97.8 F Pulse Rate 61 68 64 Respiratory Rate 16 16 Blood Pressure 143/54 H Pulse Oximetry 100 100 03/20/18 06:00 03/20/18 08:00 03/20/18 08:10 Temperature 98.6 F Pulse Rate 72 61 66 Respiratory Rate 16 16 Blood Pressure 143/62 H Pulse Oximetry 100 03/20/18 10:00 03/20/18 11:26 03/20/18 11:30 Temperature Pulse Rate 64 60 Respiratory Rate 16 16 Blood Pressure Pulse Oximetry 100 03/20/18 12:00 03/20/18 14:00 Temperature Pulse Rate 61 62 Respiratory Rate 16 Blood Pressure 126/49 L Pulse Oximetry 99 Intake & Output 03/19/18 03/20/18 03/20/18 18:59 06:59 18:59 Intake Total 1195 / 1195 2600 / 2600 650 / 650 Output Total 1500 / 1500 4100 / 4100 Balance -305 / -305 -1500 / -1500 650 / 650 Weight 134 kg Intake: IV 1195 / 1195 2600 / 2600 650 / 650 Nimbex Inj 100 MG In NS Inj 240 250 / 250 ML @ 1 MCG/KG/MIN 20.1 mls/hr IV.CONT TITRATE PRN Rx#: [id number] NovoLIN R (IV Infusion) 100 100 / 100 UNIT In NS Inj 99 ML @ Per Protocol IV.CONT TITRATE PRN Rx #:[id number] Versed Inj 50 mg In 50 ml @ 2 50 / 50 50 / 50 50 / 50 MG/HR 2 mls/hr IV.CONT TITRATE PRN Rx#:[id number] Diprivan 1000 mg/100 ml Inj 1, 275 / 275 0 / 0 000 mg In 100 ml @ 5 MCG/KG/MIN 5.103 mls/hr IV.CONT TITRATE PRN Rx#:[id number] Sodium Bicarbonate 8.4% Inj 150 1000 / 1000 MEQ In Sterile Water for Inj 850 ML @ 50 mls/hr IV.CONT . Q20H JACKI Rx#:[id number] Cardene Inj 25 MG In NS Inj 240 500 / 500 0 / 0 ML @ 5 MG/HR 50 mls/hr IV.CONT TITRATE PRN Rx#:[id number] Azithromycin Inj 500 MG In NS 250 / 250 Inj 250 ML @ 250 mls/hr IV.SIG Q24H JACKI Rx#:[id number] Maxipime Inj 2,000 MG In NS Inj 100 / 100 100 / 100 100 ML @ 200 mls/hr IV.SIG Q24H JACKI Rx#:[id number] Magnesium Sulfate 1 gm/D5W 100 200 / 200 ml Premix 100 ML @ 100 mls/hr IV.SIG Q1H JACKI Rx#:[id number] KCl 10 mEq Premix Inj 10 meq In 300 / 300 100 ml @ 38.333 mls/hr IV.SIG Q1H JACKI Rx#:[id number] KCl 20 mEq Premix Inj 20 meq In 200 / 200 100 ml @ 50 mls/hr IV.SIG Q2H PRN Rx#:[id number] Vancomycin Inj 2,000 MG In NS 520 / 520 Inj 500 ML @ 250 mls/hr IV.SIG ONCE ONE Rx#:[id number] fentaNYL 10 mcg/mL Premix Drip 250 / 250 250 / 250 2,500 mcg In 250 ml @ 50 MCG/HR 5 mls/hr IV.SIG TITRATE PRN Rx #:[id number] Oral 0 / 0 Output: Urine Amount (Catheter) 1400 / 1400 3950 / 3950 Indwelling Urethral Catheter 1400 / 1400 3950 / 3950 Gastric Drainage 100 / 100 150 / 150 Left Upper Quadrant Orogastric 100 / 100 150 / 150 Tube Other: # Bowel Movements 0 Result Diagrams: 03/20/18 08:30 03/20/18 00:40 Other Results: Microbiology 03/18/18 18:00 Blood - Peripheral Aerobic Blood Culture - Preliminary No growth in 2 days 03/18/18 18:00 Blood - Peripheral Anaerobic Blood Culture - Preliminary gram negative coccobacilli 03/18/18 18:15 Blood - Peripheral Aerobic Blood Culture - Preliminary No growth in 2 days 03/18/18 18:15 Blood - Peripheral Anaerobic Blood Culture - Preliminary No growth in 2 days Imaging: ITS Impressions Chest CT 03/18/18 18:46 CONCLUSION: 1. Bilateral multi segmental consolidation in the mid and lower lungs and small bilateral pleural effusions. 2. Several enlarged middle mediastinal lymph nodes. Head CT 03/18/18 18:46 CONCLUSION: 1. Solitary 3 mm hyperdensity in the central [place] of uncertain significance. Differential considerations include a punctate calcification and acute hemorrhage. 2. No acute findings in the supratentorial brain. Head MRI 03/19/18 00:00 CONCLUSION: 1. No evidence of brainstem hemorrhage. 2. Small foci of encephalomalacia in the left occipital lobe and right cerebellum 3. No evidence of acute infarct, hemorrhage, mass or edema. 4. No evidence of enhancing intra-axial or extra-axial lesions. Venous Doppler Study 03/19/18 00:00 CONCLUSION: The study is negative for bilateral lower extremity deep venous thrombosis. Chest X-Ray 03/20/18 06:00 CONCLUSION: No significant change. Objective Remarks: GENERAL: 52-year-old female patient with an elevated BMI who is resting in rotoprone bed orotracheally intubated. SKIN: Intertriginous lesion with erythema and satellite lesions under left breast. Skin breakdown over medial aspect of left ankle HEAD: Atraumatic. Normocephalic. EYES: Right pupil 4mm and minimally reactive. L pupil 3 mm and sluggishly reactive to 2 mm. No scleral icterus. No injection or drainage. ENT: No nasal bleeding or discharge. Mucous membranes pink and moist. NECK: Trachea midline. No JVD. CARDIOVASCULAR: Bradycardic, RR. S1, S2 no S4. Without murmur RESPIRATORY: Diminished bibasilar with no appreciable rales. Scattered rhonchi bilaterally. GASTROINTESTINAL: Abdomen obese, soft, non-tender, nondistended. Bowel sounds present. OG in place with some brown output. 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 Legs revealed 2+ pitting edema bilateral lower extremities. NEUROLOGICAL: Cranial nerves II through XII grossly intact with exception of pupils as above. Currently on cisatracurium drip and paralyzed and brought up from bed Assessment and Plan - Assessment and Plan Plan: NEURO/PSYCH: Acute encephalopathy - secondary to hypercapnia, improving. Abnormal brain CT with 3 mm hyperdensity in central [place] Major depressive disorder NOS Chronic opioid use Encephalomalacia right cerebellum/left occipital lobe Currently on midazolam drip at 5 mg an hour and fentanyl drip 150 mcg an hour for sedation. Propofol side effect sinus bradycardia. Will discontinue On cisatracurium drip at 1 mcg/kg/min Target razzo-ak-roce [address] brain - . Solitary 3 mm hyperdensity in the central [place] of uncertain significance. Differential considerations include a punctate calcification and acute hemorrhage MRI brain left occipital lobe and right cerebellum. She does not meet criteria for induced therapeutic hypothermia because she is following commands post CPR. Holding oxycodone 10 mg every 6 hours Holding nabumetone 500 mg twice daily, methocarbamol 750 mg 4 times daily and oxycodone 10 mg every 6 hours Holding gabapentin 200 mg 3 times daily Holding tizanidine 4 mg 3 times daily RESP: Acute hypercapnic and hypoxemic respiratory failure Acute asthma exacerbation Healthcare associated pneumonia WISAM/OHS Prior tobacco abuse Bilateral pleural effusions right 2.2 cm. Left 1.3 cm LMA was placed in the field by EVAC. Intubated in ED 03/18 On PRVC 16/600/09/10/49 Ventilator bundle On albuterol/ipratropium aerosols every 4 hours with albuterol aerosols every 2 hours as needed for dyspnea On aerosol epoprostenol at 50,000 ng/kg/min Spontaneous breathing trials when clinically indicated. Not today. CT thorax revealed right middle lobe/lower lobe consolidation left lower lobe consolidation. Right pleural effusion 2.2 cm. Left pleural effusion 1.3 cm Methylprednisolone succinate 40 mg IV every 8 hours. Antibiotics as per below. Serial ABG/chest x-ray in a.m. 03/21 CV: Essential HTN Hyperlipidemia Chronic diastolic heart failure Paroxysmal atrial fibrillation on chronic anti-coagulation with warfarin Peripheral vascular disease/peripheral arterial disease Elevated troponin Holding home medication of clonidine 0.1 mg every 6 hours nifedipine 90 mg daily. Continue carvedilol 6.25 mg twice daily with holding parameters for bradycardia We will start on clevidipine gtt to keep systolic blood pressure less than 140 with possible Holding furosemide 20 mg p.o. daily Bumetanide drip at 0.5 mg and will attempt to diurese 2D echo 02/24/18ejection fraction 50%. Wall thickness upper limits of normal. Trace MR. Lactic acid cleared Continue atorvastatin 40 mg daily Doppler bilateral upper and lower extremities with subtherapeutic INR Restarted heparin drip GI: History of GERD Chronic pancreatitis insufficiency Hypoalbuminemia N.p.o. status -start vital high-protein at 20 cc an hour/trickle feeds. Noted milk allergy. Heartburn NG tube to low intermittent wall suction Famotidine for GI prophylaxis Docusate sodium/senna 1 tablet twice daily for bowel regimen Resume Creon home medication 3 times daily FEN/RENAL: Chronic kidney disease stage III [place] catheter was placed in the emergency department. Monitor intake and output. Monitor electrolytes and replace as indicated Continue bumetanide drip at 0.5 mg an hour. ID: Acute healthcare associated pneumonia Currently on cefepime 2 g IV every 12 hours, azithromycin 500 mg daily and vancomycin Blood cultures 2 03/18 re no growth Sputum, pending Pneumococcal urinary antigens, influenza a and B and chlamydia and mycoplasma all pending/negative HEME: Leukocytosis Chronic anemia/normocytic Chronic anti-coagulation with warfarin 4 mg daily. INR target is 2-3. She is currently subtherapeutic. Recently INR greater than 15 received vitamin K Monitor CBC daily. Follow trends No indication for transfusion of blood products at this time. Recheck PT/INR/PTT and fibrinogen in a.m. 03/20 ENDO: Diabetes mellitus History of gout Currently on insulin drip at 4 units an hour to maintain euglycemia. Holding glipizide 10 mg twice daily and insulin glargine/home medication Holding allopurinol 300 mg daily/home medication MSK: Elevated BMI Osteoporosis/osteoarthritis Weight loss encouraged PT evaluate and treat Okay to hold cholecalciferol 5000 units daily PROPH: SCDs for DVT prophylaxis. Heparin drip ACCESS: Right IJ CVL placed 03/19. Right axillary arterial line placed 03/19. Critical care time 35 minutes. Discussed with son at bedside. Care plan discussed and all questions answered.
[2018-03-20 15:52] LABS: Carbon Dioxide 27.3 meq/L (21.0-32.0)
--- NOTE | 2018-03-20 17:48 | P.PNWCN ---
Wound Care Nurse Consult Description: Patient seen on [facility] for left buttock wound per RN Communicated with: VITOR Alanis Recommendation: Apply Calazime BID to left inner thigh Additional information: Partial thickness skin loss visualized on left inner thigh area related to moisture. Wound/Pressure Injury - Wound Left Buttocks Wound Type: Maceration Length: 0.6 (cm) Width: 0.4 (cm) Depth: 0.1 (cm) Wound Bed Appearance: Red Drainage Amount: None Dressing Status: Open to Air Cleansing Solution: Saline
[2018-03-20 19:03] LABS: Baso % (Auto) 0.2 % (0.0-2.0); Hematocrit 26.4 % (35.0-46.0); Hemoglobin 8.6 gm/dL (11.6-15.3); Lymph # (Auto) 0.2 th/mm3 (1.0-4.8); Lymph % (Auto) 2.3 % (9.0-44.0); Mean Corpuscular HGB Conc 32.4 % (32.0-36.0); Mean Corpuscular Hemoglobin 22.7 pg (27.0-34.0); Mean Corpuscular Volume 70.1 fL (80.0-100.0); Mean Platelet Volume 9.2 fL (7.0-11.0); Mono # (Auto) 0.2 th/mm3 (0.0-0.9); Mono % (Auto) 1.5 % (0.0-8.0); Neut # (Auto) 10.1 th/mm3 (1.8-7.7); Platelet Count 238 th/mm3 (150-450); Red Blood Count 3.77 mil/mm3 (4.00-5.30); Red Cell Distribution Width 22.4 % (11.6-17.2); White Blood Count 10.5 th/mm3 (4.0-11.0)
[2018-03-20] MEDS: Azithromycin Inj 500 MG in Sodium Chlor 0.9% Inj 250 ML IV.SIG SCH (21:29)
[2018-03-20] MEDS: Bumetanide Inj 25 MG/100 ML BAG IV.CONT SCH (22:42)
[2018-03-21] MEDS: Oral Hygiene Kit OROPHARYNG SCH ×4 (00:25→16:42)
[2018-03-21 00:40] LABS: Baso % (Auto) 0.1 % (0.0-2.0); Hematocrit 25.1 % (35.0-46.0); Lymph # (Auto) 0.2 th/mm3 (1.0-4.8); Lymph % (Auto) 2.3 % (9.0-44.0); Mean Corpuscular HGB Conc 31.9 % (32.0-36.0); Mean Corpuscular Volume 69.2 fL (80.0-100.0); Mean Platelet Volume 8.6 fL (7.0-11.0); Mono # (Auto) 0.1 th/mm3 (0.0-0.9); Mono % (Auto) 1.6 % (0.0-8.0); Neut # (Auto) 7.5 th/mm3 (1.8-7.7); Platelet Count 219 th/mm3 (150-450); Red Blood Count 3.63 mil/mm3 (4.00-5.30); Red Cell Distribution Width 21.8 % (11.6-17.2); White Blood Count 7.9 th/mm3 (4.0-11.0)
[2018-03-21 01:06] LABS: Alanine Aminotransferase 33 U/L (10-53); Albumin 2.3 g/dL (3.4-5.0); Anion Gap 9 meq/L (5-15); Aspartate Aminotransferase 22 U/L (15-37); Blood Urea Nitrogen 47 mg/dL (7-18); Calcium 7.8 mg/dL (8.5-10.1); Carbon Dioxide 28.6 meq/L (21.0-32.0); Chloride 107 meq/L (98-107); Glomerular Filtration Rate 37 mL/min (>89); Glucose,Random 207 mg/dL (74-106); Magnesium 1.7 mg/dL (1.5-2.5); Phosphorus 4.2 mg/dL (2.5-4.9); Potassium 3.4 meq/L (3.5-5.1); Sodium 145 meq/L (136-145)
[2018-03-21 01:09] LABS: Alkaline Phosphatase 101 U/L (45-117); Total Protein 5.9 g/dL (6.4-8.2)
[2018-03-21] MEDS: Potassium Chlor 20 mEq Premix 20 MEQ/100 ML PIGGYBACK IV.SIG PRN ×4 (01:37→11:10)
[2018-03-21] MEDS: Chlorhexidine Gluconate 2% 1 Pack (2 Cloths) TOPICAL SCH (03:42)
[2018-03-21] MEDS: Hypromellose 0.3% Opth Gel 10 GM Bottle EACH EYE SCH ×3 (03:42→18:11)
[2018-03-21 06:04] LABS: ABG Base Excess 3.7 mmol/L (-2-2); ABG PCO2 29 mmHg (38-42); ABG PO2 126 mmHG (61-120)
--- NOTE | 2018-03-21 06:20 | XR ---
EXAM DATE: 03/21/2018 5:50 AM EDT AGE/SEX: 52 years / Female INDICATIONS: Evaluate respiratory distress. CLINICAL DATA: This is the patient's subsequent encounter. Patient reports that signs and symptoms h ave been present for 1 week and indicates a pain score of Nonresponsive. MEDICAL/SURGICAL HISTORY: Non-responsive. Non-responsive. COMPARISON: C, CHEST 1V SINGLE AP, 03/20/2018. . FINDINGS: Single AP view of the chest. Endotracheal tube, nasogastric tube, and right IJ central venous cathete r remain in place. Decrease in bilateral diffuse pulmonary parenchymal opacity and pulmonary vasculat ure indistinctness. Decrease in size of cardiac silhouette. No evidence of pleural effusion or pneumo thorax. CONCLUSION: Decreased bilateral pulmonary opacity suggesting decreased pulmonary edema. Electronically signed by: Raymundo Melvin MD 03/21/2018 6:18 AM EDT
[2018-03-21] MEDS: MethylPREDNISolone Sod Succinate Inj 40 MG/ML Vial IV.PUSH SCH ×3 (06:35→22:16)
[2018-03-21] MEDS: Cisatracurium Inj 100 MG in Sodium Chlor 0.9% Inj 240 ML IV.CONT PRN ×9 (08:26→23:50)
[2018-03-21] MEDS: Famotidine 20 MG Tablet PO SCH ×2 (08:29→20:20)
[2018-03-21] MEDS: Senna/Docusate Sodium 8.6/50 MG Tablet PO SCH ×2 (08:29→20:20)
[2018-03-21] MEDS: Lipase/Protease/Amylase 24/76/120 DR Capsule PO SCH ×3 (08:30→18:23)
[2018-03-21] MEDS: Carvedilol 6.25 MG Tablet PO SCH ×3 (08:30→20:25)
[2018-03-21] MEDS: Chlorhexidine 0.12% Oral Kit 15 ML UDC OROPHARYNG SCH ×2 (08:32→19:55)
[2018-03-21] MEDS: fentaNYL 10 mcg/mL Premix Drip 2,500 MCG/250 ML BAG IV.SIG PRN ×2 (08:34→18:39)
[2018-03-21] MEDS: Midazolam 50 MG/50 ML Inj 50 MG/50 ML BAG IV.CONT PRN ×3 (08:35→23:51)
[2018-03-21 09:32] LABS: Activated Partial Thrombo Time 73.7 sec (24.3-30.1); INR 2.1 Ratio; Prothrombin Time 21.5 sec (9.8-11.6)
[2018-03-21] MEDS ORDERED: Epoprostenol (30,000/mL) Neb 62.5 ML in Sodium Chlor 0.9% Inj 37.5 ML NEB SCH (10:00)
[2018-03-21] MEDS: Insulin Regular (For Infusion) 100 UNIT in Sodium Chlor 0.9% Inj 99 ML IV.CONT PRN (10:33)
[2018-03-21] MEDS: Bumetanide Inj 25 MG/100 ML BAG IV.CONT SCH (11:42)
[2018-03-21] MEDS: Heparin Drip 25,000 UNIT/250 ML BAG IV.CONT PRN (11:43)
[2018-03-21] MEDS ORDERED: Potassium Chloride 25 MEQ Effervescent Tablet PO PRN (14:03)
[2018-03-21] MEDS ORDERED: Magnesium Sulfate Inj 2 GM in Sodium Chlor 0.9% Inj 96 ML IV.SIG PRN (14:03)
[2018-03-21] MEDS ORDERED: Magnesium Oxide 400 MG Tablet PO PRN (14:03)
[2018-03-21] MEDS ORDERED: Potassium Chlor 40 mEq Premix 40 MEQ/100 ML PIGGYBACK IV.SIG PRN ×2 (14:03)
[2018-03-21] MEDS ORDERED: Sodium Phosphate Inj 30 MMOL in Sodium Chlor 0.9% Inj 250 ML IV.SIG PRN (14:03)
[2018-03-21] MEDS ORDERED: Potassium Phosphate Inj 30 MMOL in Sodium Chlor 0.9% Inj 250 ML IV.SIG PRN (14:03)
[2018-03-21] MEDS ORDERED: Potassium Chlor 20 mEq Premix 20 MEQ/100 ML PIGGYBACK IV.SIG PRN (14:03)
[2018-03-21] MEDS ORDERED: Magnesium Sulfate Inj 4 GM in Sodium Chlor 0.9% Inj 92 ML IV.SIG PRN (14:03)
[2018-03-21] MEDS ORDERED: Potassium Phosphate 500 MG Soluble Tablet PO PRN ×2 (14:03)
--- NOTE | 2018-03-21 14:28 | P.PNCC ---
Subjective Subjective Remarks/Hospital Course: 52-year-old female with past medical history of diabetes mellitus, hypertension, hyperlipidemia, atrial fibrillation on chronic anticoagulation with warfarin, chronic diastolic heart failure, asthma, WISAM, peripheral vascular disease, super morbid obesity. She has been at [facility] since 03/02/18. [facility] JACOBO was called due to respiratory distress. When they arrived as she was found to be in respiratory distress with sats in the 70s. She was communicating with them and reportedly said "leave me alone". She then had PEA arrest. She received CPR reportedly 10-15 minutes and received 2 doses of epinephrine. LMA was placed by EVAC. LMA was removed and she was intubated by Dr. Daly after receiving etomidate 20 mg IV and succinylcholine. She has demonstrated purposeful movements post intubation, and is now on a propofol drip. She was recently admitted to [facility] 02/24-03/02 due to hypoglycemia, fall after isolated episode of diarrhea, hypoxia requiring HFNC. She has chronic interstitial changes on CXR. Reviewed records from [facility] which indicate she completed a 7 day course of Levaquin and has been on a prednisone taper. Current CXR shows bibasilar opacities. WBC is 16 ( previously 7.9). She has acute hypercapneic and hypoxemic respiratory failure. 03/19: Afebrile. Remains on 100% FiO2 PEEP of 12. Central has been placed for access due to multiple drips. Plan MRI brain today if respiratory status improves. Does not tolerate lying flat. Likely will need epoprostenol and rotaprone 03/20: Started on epoprostenol and currently on a rotor from bed. Currently on cisatracurium drip at 1 mcg/kg/min. Diuresing well. SUBJECTIVE: 03/21: Weaning down epoprostenol. Remains on cisatracurium drip at 6 mcg/kg/ min. Diuresis 6 L. Saturation was improved FiO2 down to 45%. Objective Vital Signs / I&O: Vital Signs 03/20/18 15:00 03/20/18 16:00 03/20/18 16:54 Temperature 98.6 F Pulse Rate 64 71 Respiratory Rate 16 16 17 Blood Pressure 158/73 H Pulse Oximetry 100 100 100 03/20/18 17:00 03/20/18 18:00 03/20/18 19:00 Temperature Pulse Rate 72 64 62 Respiratory Rate 16 16 16 Blood Pressure 167/72 H Pulse Oximetry 100 100 100 03/20/18 20:00 03/20/18 20:01 03/20/18 20:54 Temperature 97.9 F Pulse Rate 62 63 Respiratory Rate 16 16 17 Blood Pressure 160/55 H 148/64 H Pulse Oximetry 100 100 100 03/20/18 21:00 03/20/18 22:00 03/20/18 22:01 Temperature Pulse Rate 63 59 L 61 Respiratory Rate 16 16 16 Blood Pressure 143/65 H Pulse Oximetry 100 100 100 03/20/18 23:00 03/20/18 23:51 03/21/18 00:00 Temperature 97.7 F Pulse Rate 57 L 58 L 55 L Respiratory Rate 16 16 16 Blood Pressure 140/65 Pulse Oximetry 100 100 100 03/21/18 01:00 03/21/18 02:00 03/21/18 03:00 Temperature Pulse Rate 70 56 L 57 L Respiratory Rate 13 19 19 Blood Pressure 174/78 H Pulse Oximetry 100 100 100 03/21/18 03:45 03/21/18 04:00 03/21/18 05:00 Temperature 98 F Pulse Rate 58 L 58 L 61 Respiratory Rate 17 18 18 Blood Pressure 176/79 H Pulse Oximetry 100 100 100 03/21/18 05:04 03/21/18 06:00 03/21/18 07:00 Temperature Pulse Rate 65 71 60 Respiratory Rate 17 18 20 Blood Pressure 138/65 158/80 H Pulse Oximetry 100 100 100 03/21/18 07:36 03/21/18 08:00 03/21/18 08:01 Temperature Pulse Rate 63 49 L Respiratory Rate 19 Blood Pressure 159/68 H 156/73 H Pulse Oximetry 100 100 03/21/18 08:35 03/21/18 09:00 03/21/18 10:00 Temperature Pulse Rate 46 L 47 L Respiratory Rate 16 15 Blood Pressure 173/81 H Pulse Oximetry 100 100 100 03/21/18 11:00 03/21/18 11:39 03/21/18 12:00 Temperature 96.8 F L Pulse Rate 48 L 53 L Respiratory Rate 14 14 16 Blood Pressure Pulse Oximetry 100 100 100 03/21/18 12:01 Temperature Pulse Rate 52 L Respiratory Rate 15 Blood Pressure 159/72 H Pulse Oximetry 100 Intake & Output 03/20/18 03/21/18 03/21/18 18:59 06:59 18:59 Intake Total 1170 / 1170 1719 / 1719 1947 Output Total 4100 / 4100 4600 / 4600 Balance -2930 / -2930 -2881 / -2881 1947 Weight 134 kg Intake: IV 1150 / 1150 1600 / 1600 1947 Bumex Inj 25 mg In 100 ml @ 0.5 100 / 100 48 / 48 MG/HR 2 mls/hr IV.CONT .Q24H JACKI Rx#:[id number] Nimbex Inj 100 MG In NS Inj 240 250 / 250 750 / 750 ML @ 1 MCG/KG/MIN 20.1 mls/hr IV.CONT TITRATE PRN Rx#: [id number] Heparin/D5W 25,000 U/250 mL 25, 250 / 250 000 unit In 250 ml @ 800 UNITS/ HR 8 mls/hr IV.CONT TITRATE PRN Rx#:[id number] NovoLIN R (IV Infusion) 100 100 / 100 UNIT In NS Inj 99 ML @ Per Protocol IV.CONT TITRATE PRN Rx #:[id number] Versed Inj 50 mg In 50 ml @ 2 50 / 50 50 / 50 100 / 100 MG/HR 2 mls/hr IV.CONT TITRATE PRN Rx#:[id number] Sodium Bicarbonate 8.4% Inj 150 1000 / 1000 MEQ In Sterile Water for Inj 850 ML @ 50 mls/hr IV.CONT . Q20H JACKI Rx#:[id number] Cardene Inj 25 MG In NS Inj 240 0 / 0 50 / 50 ML @ 5 MG/HR 50 mls/hr IV.CONT TITRATE PRN Rx#:[id number] Azithromycin Inj 500 MG In NS 250 / 250 Inj 250 ML @ 250 mls/hr IV.SIG Q24H JACKI Rx#:[id number] Maxipime Inj 2,000 MG In NS Inj 100 / 100 100 / 100 100 ML @ 200 mls/hr IV.SIG Q24H JACKI Rx#:[id number] Magnesium Sulfate 1 gm/D5W 100 200 / 200 ml Premix 100 ML @ 100 mls/hr IV.SIG Q1H JACKI Rx#:[id number] KCl 10 mEq Premix Inj 10 meq In 300 / 300 100 ml @ 38.333 mls/hr IV.SIG Q1H JACKI Rx#:[id number] fentaNYL 10 mcg/mL Premix Drip 250 / 250 250 / 250 2,500 mcg In 250 ml @ 50 MCG/HR 5 mls/hr IV.SIG TITRATE PRN Rx #:[id number] Tube Feeding 119 / 119 Output: Urine Amount (Catheter) 4050 / 4050 4600 / 4600 Indwelling Urethral Catheter 4050 / 4050 4600 / 4600 Gastric Drainage 50 / 50 Left Upper Quadrant Orogastric 50 / 50 Tube Other: # Bowel Movements 0 0 Result Diagrams: 03/21/18 00:20 03/21/18 00:20 Other Results: Microbiology 03/18/18 18:00 Blood - Peripheral Aerobic Blood Culture - Preliminary No growth in 3 days 03/18/18 18:00 Blood - Peripheral Anaerobic Blood Culture - Final Veillonella species 03/20/18 09:40 Blood - Line Aerobic Blood Culture - Preliminary No growth in 1 day 03/20/18 09:40 Blood - Line Anaerobic Blood Culture - Preliminary No growth in 1 day 03/18/18 18:15 Blood - Peripheral Aerobic Blood Culture - Preliminary No growth in 3 days 03/18/18 18:15 Blood - Peripheral Anaerobic Blood Culture - Preliminary No growth in 3 days Imaging: Chest X-Ray 03/18/18 17:52 CONCLUSION: 1. ET tube in good position. 2. Increasing patchy areas of consolidation in both lower lungs. Chest CT 03/18/18 18:46 CONCLUSION: 1. Bilateral multi segmental consolidation in the mid and lower lungs and small bilateral pleural effusions. 2. Several enlarged middle mediastinal lymph nodes. Head CT 03/18/18 18:46 CONCLUSION: 1. Solitary 3 mm hyperdensity in the central [place] of uncertain significance. Differential considerations include a punctate calcification and acute hemorrhage. 2. No acute findings in the supratentorial brain. Head MRI 03/19/18 00:00 CONCLUSION: 1. No evidence of brainstem hemorrhage. 2. Small foci of encephalomalacia in the left occipital lobe and right cerebellum 3. No evidence of acute infarct, hemorrhage, mass or edema. 4. No evidence of enhancing intra-axial or extra-axial lesions. Venous Doppler Study 03/19/18 00:00 CONCLUSION: The study is negative for bilateral upper extremity deep venous thrombosis. Venous Doppler Study 03/19/18 00:00 CONCLUSION: The study is negative for bilateral lower extremity deep venous thrombosis. Chest X-Ray 03/19/18 07:33 CONCLUSION: 1. Lines and tubes as detailed above without pneumothorax. 2. Radiographic pattern most consistent with pulmonary edema. This is unchanged. Chest X-Ray 03/20/18 06:00 CONCLUSION: No significant change. Chest X-Ray 03/21/18 05:14 CONCLUSION: Decreased bilateral pulmonary opacity suggesting decreased pulmonary edema. Objective Remarks: GENERAL: 52-year-old female patient with an elevated BMI who is resting in rotoprone bed orotracheally intubated. SKIN: Intertriginous lesion with erythema and satellite lesions under left breast. Skin breakdown over medial aspect of left ankle HEAD: Atraumatic. Normocephalic. EYES: Right pupil and left for both around 3 mm and sluggishly reactive to 2 mm. No scleral icterus. No injection or drainage. ENT: No nasal bleeding or discharge. Mucous membranes pink and moist. NECK: Trachea midline. No JVD. CARDIOVASCULAR: Bradycardic, RR. S1, S2 no S4. Without murmur RESPIRATORY: Diminished bibasilar with no appreciable rales. Scattered rhonchi bilaterally. GASTROINTESTINAL: Abdomen obese, soft, non-tender, nondistended. Bowel sounds present. OG in place with some brown output. 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 Legs revealed 2+ pitting edema bilateral lower extremities. NEUROLOGICAL: Cranial nerves II through XII grossly intact with exception of pupils as above. Currently on cisatracurium drip and paralyzed and brought up from bed Assessment and Plan - Assessment and Plan Plan: NEURO/PSYCH: Acute encephalopathy - secondary to hypercapnia, improving. Abnormal brain CT with 3 mm hyperdensity in central [place] Major depressive disorder NOS Chronic opioid use Encephalomalacia right cerebellum/left occipital lobe Currently on midazolam drip at 10 mg an hour and fentanyl drip 250 mcg an hour for sedation. Propofol side effect sinus bradycardia. Will discontinue On cisatracurium drip at 6 mcg/kg/min Target [id number] [address] brain - . Solitary 3 mm hyperdensity in the central [place] of uncertain significance. Differential considerations include a punctate calcification and acute hemorrhage MRI brain left occipital lobe and right cerebellum. She does not meet criteria for induced therapeutic hypothermia because she is following commands post CPR. Holding oxycodone 10 mg every 6 hours Holding nabumetone 500 mg twice daily, methocarbamol 750 mg 4 times daily and oxycodone 10 mg every 6 hours Holding gabapentin 200 mg 3 times daily Holding tizanidine 4 mg 3 times daily RESP: Acute hypercapnic and hypoxemic respiratory failure Acute asthma exacerbation Healthcare associated pneumonia WISAM/OHS Prior tobacco abuse Bilateral pleural effusions right 2.2 cm. Left 1.3 cm LMA was placed in the field by EVAC. Intubated in ED 03/18 On PRVC 14/600/09/10/44 Ventilator bundle On albuterol/ipratropium aerosols every 4 hours with albuterol aerosols every 2 hours as needed for dyspnea On aerosol epoprostenol at 50,000 ng/kg/min Spontaneous breathing trials when clinically indicated. Not today. CT thorax revealed right middle lobe/lower lobe consolidation left lower lobe consolidation. Right pleural effusion 2.2 cm. Left pleural effusion 1.3 cm Methylprednisolone succinate 40 mg IV every 8 hours. Antibiotics as per below. Serial ABG/chest x-ray in a.m. 03/22 CV: Essential HTN Hyperlipidemia Chronic diastolic heart failure Paroxysmal atrial fibrillation on chronic anti-coagulation with warfarin Peripheral vascular disease/peripheral arterial disease Elevated troponin Holding home medication of clonidine 0.1 mg every 6 hours nifedipine 90 mg daily. Continue carvedilol 6.25 mg twice daily with holding parameters for bradycardia We will start on clevidipine gtt to keep systolic blood pressure less than 140 with possible Holding furosemide 20 mg p.o. daily Bumetanide drip at 0.5 mg and will attempt to diurese 2D echo 02/24/18ejection fraction 50%. Wall thickness upper limits of normal. Trace MR. Lactic acid cleared Continue atorvastatin 40 mg daily Doppler bilateral upper and lower extremities with subtherapeutic INR Restarted heparin drip 800 units an hour GI: History of GERD Chronic pancreatitis insufficiency Hypoalbuminemia N.p.o. status -start vital high-protein at 20 cc an hour/trickle feeds. Noted milk allergy. Heartburn NG tube to low intermittent wall suction Famotidine for GI prophylaxis Docusate sodium/senna 1 tablet twice daily for bowel regimen Resume Creon home medication 3 times daily FEN/RENAL: Chronic kidney disease stage III [place] catheter was placed in the emergency department. Monitor intake and output. Monitor electrolytes and replace as indicated Continue bumetanide drip at 0.5 mg an hour.. Creatinine currently 1.73 ID: Acute healthcare associated pneumonia Currently on cefepime 2 g IV every 12 hours, azithromycin 500 mg daily and vancomycin Blood cultures 2 03/18 Veillonella spp Sputum, pending Pneumococcal urinary antigens, influenza a and B and chlamydia and mycoplasma all pending/negative HEME: Leukocytosis Chronic anemia/normocytic Chronic anti-coagulation with warfarin 4 mg daily. INR target is 2-3. She is currently subtherapeutic. Recently INR greater than 15 received vitamin K Monitor CBC daily. Follow trends No indication for transfusion of blood products at this time. Continue heparin drip at 800 units an hour ENDO: Diabetes mellitus History of gout Currently on insulin drip at 4 units an hour to maintain euglycemia. Holding glipizide 10 mg twice daily and insulin glargine/home medication Holding allopurinol 300 mg daily/home medication MSK: Elevated BMI Osteoporosis/osteoarthritis Weight loss encouraged PT evaluate and treat Okay to hold cholecalciferol 5000 units daily PROPH: SCDs for DVT prophylaxis. Heparin drip ACCESS: Right IJ CVL placed 03/19. Right axillary arterial line placed 03/19. Critical care time 35 minutes. Discussed with son at bedside. Care plan discussed and all questions answered.
[2018-03-21 15:19] LABS: Hematocrit 27.5 % (35.0-46.0); Hemoglobin 8.6 gm/dL (11.6-15.3); Mean Corpuscular HGB Conc 31.3 % (32.0-36.0); Mean Corpuscular Hemoglobin 21.9 pg (27.0-34.0); Mean Corpuscular Volume 69.9 fL (80.0-100.0); Mean Platelet Volume 8.7 fL (7.0-11.0); Platelet Count 223 th/mm3 (150-450); Red Blood Count 3.93 mil/mm3 (4.00-5.30); Red Cell Distribution Width 22.9 % (11.6-17.2); White Blood Count 5.8 th/mm3 (4.0-11.0)
[2018-03-21 15:49] LABS: Calcium 7.9 mg/dL (8.5-10.1); Carbon Dioxide 32.5 meq/L (21.0-32.0); Magnesium 1.7 mg/dL (1.5-2.5)
[2018-03-21] MEDS ORDERED: SODIUM CHLOR NEB SCH (18:00)
[2018-03-21] MEDS ORDERED: EPOPROSTENOL NEB SCH (18:00)
[2018-03-21] MEDS ORDERED: Magnesium Sulfate Inj 2 GM in Sodium Chlor 0.9% Inj 96 ML IV.SIG ONE (18:00)
[2018-03-21] MEDS: Sodium Bicarbonate 8.4% Inj 150 MEQ in Water for Inj, Sterile 850 ML IV.CONT SCH (18:51)
[2018-03-21] MEDS: Azithromycin Inj 500 MG in Sodium Chlor 0.9% Inj 250 ML IV.SIG SCH (22:16)
[2018-03-22] MEDS: Cisatracurium Inj 100 MG in Sodium Chlor 0.9% Inj 240 ML IV.CONT PRN ×11 (01:48→22:57)
[2018-03-22] MEDS: Oral Hygiene Kit OROPHARYNG SCH ×5 (01:49→23:33)
[2018-03-22] MEDS ORDERED: Epoprostenol (30,000/mL) Neb 62.5 ML in Sodium Chlor 0.9% Inj 37.5 ML NEB SCH (02:00)
[2018-03-22] MEDS: Hypromellose 0.3% Opth Gel 10 GM Bottle EACH EYE SCH ×3 (03:20→18:08)
[2018-03-22] MEDS: Chlorhexidine Gluconate 2% 1 Pack (2 Cloths) TOPICAL SCH (03:21)
[2018-03-22] MEDS: fentaNYL 10 mcg/mL Premix Drip 2,500 MCG/250 ML BAG IV.SIG PRN ×3 (04:39→22:56)
[2018-03-22] MEDS: Midazolam 50 MG/50 ML Inj 50 MG/50 ML BAG IV.CONT PRN ×4 (04:51→18:30)
[2018-03-22] MEDS: MethylPREDNISolone Sod Succinate Inj 40 MG/ML Vial IV.PUSH SCH ×3 (05:11→21:15)
[2018-03-22 05:31] LABS: ABG Base Excess 7.6 mmol/L (-2-2); ABG PCO2 42 mmHg (38-42); ABG PO2 103 mmHG (61-120)
--- NOTE | 2018-03-22 05:32 | XR ---
EXAM DATE: 03/22/2018 5:24 AM EDT AGE/SEX: 52 years / Female INDICATIONS: Evaluate respiratory failure. CLINICAL DATA: This is the patient's subsequent encounter. Patient reports that signs and symptoms h ave been present for 1 week and indicates a pain score of Nonresponsive. MEDICAL/SURGICAL HISTORY: Non-responsive. Non-responsive. COMPARISON: [facility], CHEST 1V SINGLE AP, 03/21/2018. . FINDINGS: Single AP view of the chest. Endotracheal tube, nasogastric tube, and right IJ central venous cathete r remain in place. Persistent cardiac silhouette enlargement. Increased left midlung zone consolidati on versus atelectasis. No other significant interval change. No evidence of pneumothorax. CONCLUSION: Increased left mid lung pulmonary consolidation versus atelectasis. Electronically signed by: Raymundo Melvin MD 03/22/2018 5:30 AM EDT
[2018-03-22 06:07] LABS: Baso % (Auto) 0.1 % (0.0-2.0); Hematocrit 25.9 % (35.0-46.0); Hemoglobin 8.2 gm/dL (11.6-15.3); Lymph # (Auto) 0.1 th/mm3 (1.0-4.8); Lymph % (Auto) 1.9 % (9.0-44.0); Mean Corpuscular HGB Conc 31.5 % (32.0-36.0); Mean Corpuscular Volume 69.7 fL (80.0-100.0); Mean Platelet Volume 9.1 fL (7.0-11.0); Mono # (Auto) 0.4 th/mm3 (0.0-0.9); Neut # (Auto) 5.4 th/mm3 (1.8-7.7); Platelet Count 198 th/mm3 (150-450); Red Blood Count 3.71 mil/mm3 (4.00-5.30); Red Cell Distribution Width 22.4 % (11.6-17.2); White Blood Count 5.9 th/mm3 (4.0-11.0)
[2018-03-22 06:14] LABS: Albumin 1.9 g/dL (3.4-5.0); Calcium 7.4 mg/dL (8.5-10.1); Carbon Dioxide 34.3 meq/L (21.0-32.0); Magnesium 1.6 mg/dL (1.5-2.5); Potassium 3.3 meq/L (3.5-5.1); Total Protein 5.3 g/dL (6.4-8.2); Vancomycin,Random 15.8 Comment
[2018-03-22] MEDS: Potassium Chlor 20 mEq Premix 20 MEQ/100 ML PIGGYBACK IV.SIG PRN ×2 (06:34→08:44)
[2018-03-22 07:36] LABS: INR 2.3 Ratio; Prothrombin Time 23.5 sec (9.8-11.6)
[2018-03-22] MEDS: Chlorhexidine 0.12% Oral Kit 15 ML UDC OROPHARYNG SCH ×2 (08:23→20:22)
[2018-03-22] MEDS: Lipase/Protease/Amylase 24/76/120 DR Capsule PO SCH ×3 (09:33→18:07)
[2018-03-22] MEDS: Carvedilol 6.25 MG Tablet PO SCH ×2 (09:33→20:22)
[2018-03-22] MEDS: Senna/Docusate Sodium 8.6/50 MG Tablet PO SCH ×2 (09:33→20:22)
[2018-03-22] MEDS: Famotidine 20 MG Tablet PO SCH ×2 (09:33→20:22)
[2018-03-22 09:37] LABS: Lymphocytes 3 % (9-44); Monocytes 2 % (0-8); Platelet Estimate Normal (Normal); Tallied Nucleated RBC 3 (0-0)
[2018-03-22 09:38] LABS: Platelet Morphology Normal (Normal)
[2018-03-22] MEDS ORDERED: EPOPROSTENOL NEB SCH ×2 (10:00→18:00)
[2018-03-22] MEDS ORDERED: SODIUM CHLOR NEB SCH ×2 (10:00→18:00)
[2018-03-22] MEDS: Insulin Regular (For Infusion) 100 UNIT in Sodium Chlor 0.9% Inj 99 ML IV.CONT PRN (10:42)
[2018-03-22] MEDS ORDERED: Mineral Oil Liq 30 ML UDC PO ONE (11:00)
[2018-03-22] MEDS ORDERED: Methylnaltrexone Inj 12 MG/0.6 ML Vial SQ ONE (11:00)
--- NOTE | 2018-03-22 11:03 | P.PNCC ---
Subjective Subjective Remarks/Hospital Course: 52-year-old female with past medical history of diabetes mellitus, hypertension, hyperlipidemia, atrial fibrillation on chronic anticoagulation with warfarin, chronic diastolic heart failure, asthma, WISAM, peripheral vascular disease, super morbid obesity. She has been at [facility] since 03/02/18. [facility]ACOBO was called due to respiratory distress. When they arrived as she was found to be in respiratory distress with sats in the 70s. She was communicating with them and reportedly said "leave me alone". She then had PEA arrest. She received CPR reportedly 10-15 minutes and received 2 doses of epinephrine. LMA was placed by EVAC. LMA was removed and she was intubated by Dr. Daly after receiving etomidate 20 mg IV and succinylcholine. She has demonstrated purposeful movements post intubation, and is now on a propofol drip. She was recently admitted to [facility] 02/24-03/02 due to hypoglycemia, fall after isolated episode of diarrhea, hypoxia requiring HFNC. She has chronic interstitial changes on CXR. Reviewed records from [facility] which indicate she completed a 7 day course of Levaquin and has been on a prednisone taper. Current CXR shows bibasilar opacities. WBC is 16 ( previously 7.9). She has acute hypercapneic and hypoxemic respiratory failure. 03/19: Afebrile. Remains on 100% FiO2 PEEP of 12. Central has been placed for access due to multiple drips. Plan MRI brain today if respiratory status improves. Does not tolerate lying flat. Likely will need epoprostenol and rotaprone 03/20: Started on epoprostenol and currently on a rotor from bed. Currently on cisatracurium drip at 1 mcg/kg/min. Diuresing well. 03/21: Weaning down epoprostenol. Remains on cisatracurium drip at 6 mcg/kg/ min. Diuresis 6 L. Saturation was improved FiO2 down to 45%. SUBJECTIVE: 03/22: Hypothermic overnight. Currently euthermic. Excellent response to bumetanide drip. FiO2 down to 40%. PEEP down to 8. Possible discontinue paralytic agent today. Objective Vital Signs / I&O: Vital Signs 03/21/18 11:00 03/21/18 11:39 03/21/18 12:00 Temperature 96.8 F L Pulse Rate 48 L 53 L Respiratory Rate 14 14 16 Blood Pressure Pulse Oximetry 100 100 100 03/21/18 12:01 03/21/18 13:00 03/21/18 14:00 Temperature Pulse Rate 52 L 54 L 54 L Respiratory Rate 15 14 15 Blood Pressure 159/72 H 140/67 Pulse Oximetry 100 100 95 03/21/18 15:00 03/21/18 16:00 03/21/18 17:00 Temperature Pulse Rate 54 L 53 L 53 L Respiratory Rate 15 2 L 14 Blood Pressure 153/64 H Pulse Oximetry 96 93 L 100 03/21/18 18:00 03/21/18 19:00 03/21/18 20:00 Temperature Pulse Rate 53 L 52 L 51 L Respiratory Rate 14 14 14 Blood Pressure 155/84 H 130/60 Pulse Oximetry 98 99 100 03/21/18 20:41 03/21/18 20:42 03/21/18 21:00 Temperature Pulse Rate 50 L 50 L Respiratory Rate 14 14 14 Blood Pressure Pulse Oximetry 100 100 03/21/18 22:00 03/21/18 23:00 03/21/18 23:09 Temperature 87.6 F L Pulse Rate 50 L 52 L 54 L Respiratory Rate 14 14 14 Blood Pressure 108/56 L 104/55 L Pulse Oximetry 100 100 100 03/21/18 23:57 03/22/18 00:00 03/22/18 00:33 Temperature 87.4 F L Pulse Rate 52 L 54 L Respiratory Rate 14 14 14 Blood Pressure 104/57 L Pulse Oximetry 100 03/22/18 01:00 03/22/18 02:00 03/22/18 03:00 Temperature Pulse Rate 52 L 60 55 L Respiratory Rate 7 L 14 14 Blood Pressure 139/64 Pulse Oximetry 100 100 100 03/22/18 03:01 03/22/18 04:00 03/22/18 04:03 Temperature 91.2 F L Pulse Rate 55 L 65 60 Respiratory Rate 14 16 14 Blood Pressure 109/55 L 121/68 Pulse Oximetry 100 93 L 03/22/18 04:34 03/22/18 05:00 03/22/18 06:00 Temperature Pulse Rate 66 66 Respiratory Rate 14 4 L 8 L Blood Pressure 134/75 146/74 H Pulse Oximetry 100 100 03/22/18 07:00 03/22/18 07:53 03/22/18 08:00 Temperature 94.6 F L Pulse Rate 67 70 66 Respiratory Rate 12 14 14 Blood Pressure 129/61 104/42 L Pulse Oximetry 98 100 96 03/22/18 10:00 Temperature Pulse Rate 81 Respiratory Rate Blood Pressure Pulse Oximetry Intake & Output 03/21/18 03/22/18 03/22/18 18:59 06:59 18:59 Intake Total 4232 / 4232 2655 / 2655 500 / 500 Output Total 4750 / 4750 4600 / 4600 Balance -518 / -518 -1945 / -1945 500 / 500 Weight 122.7 kg Intake: IV 3998 / 3998 2400 / 2400 500 / 500 Bumex Inj 25 mg In 100 ml @ 0.5 48 / 48 MG/HR 2 mls/hr IV.CONT .Q24H JACKI Rx#:[id number] Nimbex Inj 100 MG In NS Inj 240 1500 / 1500 1750 / 1750 250 / 250 ML @ 1 MCG/KG/MIN 20.1 mls/hr IV.CONT TITRATE PRN Rx#: [id number] Heparin/D5W 25,000 U/250 mL 25, 250 / 250 000 unit In 250 ml @ 800 UNITS/ HR 8 mls/hr IV.CONT TITRATE PRN Rx#:[id number] NovoLIN R (IV Infusion) 100 100 / 100 UNIT In NS Inj 99 ML @ Per Protocol IV.CONT TITRATE PRN Rx #:[id number] Versed Inj 50 mg In 50 ml @ 2 150 / 150 50 / 50 50 / 50 MG/HR 2 mls/hr IV.CONT TITRATE PRN Rx#:[id number] Sodium Bicarbonate 8.4% Inj 150 1000 / 1000 MEQ In Sterile Water for Inj 850 ML @ 50 mls/hr IV.CONT . Q20H JACKI Rx#:[id number] Cardene Inj 25 MG In NS Inj 240 50 / 50 ML @ 5 MG/HR 50 mls/hr IV.CONT TITRATE PRN Rx#:[id number] Azithromycin Inj 500 MG In NS 250 / 250 Inj 250 ML @ 250 mls/hr IV.SIG Q24H JACKI Rx#:[id number] Maxipime Inj 2,000 MG In NS Inj 100 / 100 100 / 100 100 ML @ 200 mls/hr IV.SIG Q24H JACKI Rx#:[id number] Magnesium Sulfate Inj 2 GM In 100 / 100 NS Inj 96 ML @ 50 mls/hr IV.SIG NOW ONE Rx#:[id number] KCl 20 mEq Premix Inj 20 meq In 100 / 100 100 ml @ 50 mls/hr IV.SIG Q2H PRN Rx#:[id number] fentaNYL 10 mcg/mL Premix Drip 500 / 500 250 / 250 2,500 mcg In 250 ml @ 50 MCG/HR 5 mls/hr IV.SIG TITRATE PRN Rx #:[id number] Oral 0 / 0 0 / 0 Tube Feeding 234 / 234 195 / 195 Water Bolus Amount 60 / 60 Output: Urine Amount (Catheter) 4700 / 4700 4600 / 4600 Indwelling Urethral Catheter 4700 / 4700 4600 / 4600 Gastric Drainage 50 / 50 Left Upper Quadrant Orogastric 50 / 50 Tube Other: Date of Last Bowel Movement 03/22/18 # Bowel Movements 0 0 Result Diagrams: 03/22/18 05:18 03/22/18 05:18 Other Results: Microbiology 03/18/18 18:15 Blood - Peripheral Aerobic Blood Culture - Preliminary No growth in 3 days 03/18/18 18:15 Blood - Peripheral Anaerobic Blood Culture - Final Veillonella species 03/18/18 18:00 Blood - Peripheral Aerobic Blood Culture - Preliminary No growth in 3 days 03/18/18 18:00 Blood - Peripheral Anaerobic Blood Culture - Final Veillonella species 03/20/18 09:40 Blood - Line Aerobic Blood Culture - Preliminary No growth in 1 day 03/20/18 09:40 Blood - Line Anaerobic Blood Culture - Preliminary No growth in 1 day Imaging: Chest X-Ray 03/18/18 17:52 CONCLUSION: 1. ET tube in good position. 2. Increasing patchy areas of consolidation in both lower lungs. Chest CT 03/18/18 18:46 CONCLUSION: 1. Bilateral multi segmental consolidation in the mid and lower lungs and small bilateral pleural effusions. 2. Several enlarged middle mediastinal lymph nodes. Head CT 03/18/18 18:46 CONCLUSION: 1. Solitary 3 mm hyperdensity in the central [place] of uncertain significance. Differential considerations include a punctate calcification and acute hemorrhage. 2. No acute findings in the supratentorial brain. Head MRI 03/19/18 00:00 CONCLUSION: 1. No evidence of brainstem hemorrhage. 2. Small foci of encephalomalacia in the left occipital lobe and right cerebellum 3. No evidence of acute infarct, hemorrhage, mass or edema. 4. No evidence of enhancing intra-axial or extra-axial lesions. Venous Doppler Study 03/19/18 00:00 CONCLUSION: The study is negative for bilateral upper extremity deep venous thrombosis. Venous Doppler Study 03/19/18 00:00 CONCLUSION: The study is negative for bilateral lower extremity deep venous thrombosis. Chest X-Ray 03/19/18 07:33 CONCLUSION: 1. Lines and tubes as detailed above without pneumothorax. 2. Radiographic pattern most consistent with pulmonary edema. This is unchanged. Chest X-Ray 03/20/18 06:00 CONCLUSION: No significant change. Chest X-Ray 03/21/18 05:14 CONCLUSION: Decreased bilateral pulmonary opacity suggesting decreased pulmonary edema. Chest X-Ray 03/22/18 06:00 CONCLUSION: Increased left mid lung pulmonary consolidation versus atelectasis. Objective Remarks: GENERAL: 52-year-old female patient with an elevated BMI who is resting in rotoprone bed orotracheally intubated. SKIN: Intertriginous lesion with erythema and satellite lesions under left breast. Skin breakdown over medial aspect of left ankle. Skin abrasion from bed/roto-prone over bilateral cheeks. HEAD: Atraumatic. Normocephalic. EYES: Right pupil and left for both around 3 mm and sluggishly reactive to 2 mm. No scleral icterus. No injection or drainage. ENT: No nasal bleeding or discharge. Mucous membranes pink and moist. NECK: Trachea midline. No JVD. CARDIOVASCULAR: Bradycardic, RR. S1, S2 no S4. Without murmur RESPIRATORY: Diminished bibasilar with no appreciable rales. Scattered rhonchi bilaterally. GASTROINTESTINAL: Abdomen obese, soft, non-tender, nondistended. Bowel sounds present. OG in place with some brown output. 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 Legs revealed 2+ pitting edema bilateral lower extremities. NEUROLOGICAL: Cranial nerves II through XII grossly intact with exception of pupils as above. Currently on cisatracurium drip and paralyzed [id number] 2 out of 4 Assessment and Plan - Assessment and Plan Plan: NEURO/PSYCH: Acute encephalopathy - secondary to hypercapnia, improving. Abnormal brain CT with 3 mm hyperdensity in central [place] Major depressive disorder NOS Chronic opioid use Encephalomalacia right cerebellum/left occipital lobe Currently on midazolam drip at 10 mg an hour and fentanyl drip 250 mcg an hour for sedation. Propofol side effect sinus bradycardia. Will discontinue On cisatracurium drip at 7 mcg/kg/min Target [id number] [address] brain - . Solitary 3 mm hyperdensity in the central [place] of uncertain significance. Differential considerations include a punctate calcification and acute hemorrhage MRI brain left occipital lobe and right cerebellum. She does not meet criteria for induced therapeutic hypothermia because she is following commands post CPR. Holding oxycodone 10 mg every 6 hours Holding nabumetone 500 mg twice daily, methocarbamol 750 mg 4 times daily and oxycodone 10 mg every 6 hours Holding gabapentin 200 mg 3 times daily Holding tizanidine 4 mg 3 times daily RESP: Acute hypercapnic and hypoxemic respiratory failure Acute asthma exacerbation Healthcare associated pneumonia WISAM/OHS Prior tobacco abuse Bilateral pleural effusions right 2.2 cm. Left 1.3 cm LMA was placed in the field by EVAC. Intubated in ED 03/18 On PRVC 14/550/09/08/39 Ventilator bundle On albuterol/ipratropium aerosols every 4 hours with albuterol aerosols every 2 hours as needed for dyspnea On aerosol epoprostenol at 50,000 ng/kg/min Spontaneous breathing trials when clinically indicated. Not today. CT thorax revealed right middle lobe/lower lobe consolidation left lower lobe consolidation. Right pleural effusion 2.2 cm. Left pleural effusion 1.3 cm Methylprednisolone succinate 40 mg IV every 8 hours. Antibiotics as per below. Serial ABG/chest x-ray in a.m. 03/23 CV: Essential HTN Hyperlipidemia Chronic diastolic heart failure Paroxysmal atrial fibrillation on chronic anti-coagulation with warfarin Peripheral vascular disease/peripheral arterial disease Elevated troponin Holding home medication of clonidine 0.1 mg every 6 hours nifedipine 90 mg daily. Continue carvedilol 6.25 mg twice daily with holding parameters for bradycardia We will start on clevidipine gtt to keep systolic blood pressure less than 140 with possible Holding furosemide 20 mg p.o. daily Bumetanide drip at 0.5 mg and will attempt to diurese 2D echo 02/24/18ejection fraction 50%. Wall thickness upper limits of normal. Trace MR. Lactic acid cleared Continue atorvastatin 40 mg daily Doppler bilateral upper and lower extremities with subtherapeutic INR Restarted heparin drip 800 units an hour GI: History of GERD Chronic pancreatitis insufficiency Hypoalbuminemia N.p.o. status -start vital high-protein at 30 cc an hour/trickle feeds. Noted milk allergy. Heartburn NG tube to low intermittent wall suction Famotidine for GI prophylaxis Docusate sodium/senna 1 tablet twice daily for bowel regimen Resume Creon home medication 3 times daily FEN/RENAL: Chronic kidney disease stage III Hypernatremia Hypokalemia [place] catheter was placed in the emergency department. Monitor intake and output. Monitor electrolytes and replace as indicated Free water 100 every 4 hours. Potassium magnesium being replaced. Recheck at noon We will discontinue bumetanide drip at 0.5 mg an hour we will do this with acetazolamide which is today... Creatinine slowly normalizing ID: Acute healthcare associated pneumonia Veillonella species bacteremia Currently on cefepime 2 g IV every 12 hours, azithromycin 500 mg daily and vancomycin Consultation to ID workup Veillonella species bacteremia Blood cultures 2 03/18 Veillonella spp. Repeat 03/20 pending Sputum, pending Pneumococcal urinary antigens, influenza a and B and chlamydia and mycoplasma all pending/negative HEME: Leukocytosis Chronic anemia/normocytic Chronic anti-coagulation with warfarin 4 mg daily. INR target is 2-3. She is currently therapeutic. Recently INR greater than 15 received vitamin K Monitor CBC daily. Follow trends No indication for transfusion of blood products at this time. Discontinue heparin drip today. Recheck INR in a.m. 03/23 ENDO: Diabetes mellitus History of gout Currently on insulin drip at 3 units an hour to maintain euglycemia. Holding glipizide 10 mg twice daily and insulin glargine/home medication Holding allopurinol 300 mg daily/home medication MSK: Elevated BMI Osteoporosis/osteoarthritis Weight loss encouraged PT evaluate and treat Okay to hold cholecalciferol 5000 units daily PROPH: SCDs for DVT prophylaxis. Heparin drip ACCESS: Right IJ CVL placed 03/19. Right axillary arterial line placed 03/19. Critical care time 35 minutes. Discussed with son at bedside. Care plan discussed and all questions answered.
[2018-03-22] MEDS ORDERED: Vancomycin Inj 2,000 MG in Sodium Chlor 0.9% Inj 500 ML IV.SIG ONE (12:00)
[2018-03-22 12:34] LABS: Baso % (Auto) 0.1 % (0.0-2.0); Hematocrit 24.2 % (35.0-46.0); Hemoglobin 7.4 gm/dL (11.6-15.3); Lymph # (Auto) 0.1 th/mm3 (1.0-4.8); Lymph % (Auto) 1.2 % (9.0-44.0); Mean Corpuscular Hemoglobin 21.8 pg (27.0-34.0); Mean Corpuscular Volume 71.5 fL (80.0-100.0); Mean Platelet Volume 8.7 fL (7.0-11.0); Mono # (Auto) 0.4 th/mm3 (0.0-0.9); Mono % (Auto) 4.8 % (0.0-8.0); Neut # (Auto) 7.3 th/mm3 (1.8-7.7); Neut % (Auto) 93.9 % (16.0-70.0); Platelet Count 195 th/mm3 (150-450); Red Blood Count 3.39 mil/mm3 (4.00-5.30); Red Cell Distribution Width 22.4 % (11.6-17.2); White Blood Count 7.8 th/mm3 (4.0-11.0)
[2018-03-22 12:39] LABS: Mean Corpuscular HGB Conc 30.6 % (32.0-36.0)
[2018-03-22] MEDS ORDERED: Sodium Chlor 0.9% Inj 500 ML IV.SIG ONE ×2 (13:18→16:23)
[2018-03-22] MEDS ORDERED: Norepinephrine Inj 16 MG in Sodium Chlor 0.9% Inj 234 ML IV.CONT PRN (13:19)
[2018-03-22 14:22] LABS: Acanthocytes Occ; Dohle Bodies Present; Monocytes 1 % (0-8); Ovalocytes 1+; Platelet Estimate Normal (Normal); Platelet Morphology Normal (Normal); Tallied Nucleated RBC 7 (0-0)
[2018-03-22] MEDS: Sodium Bicarbonate 8.4% Inj 150 MEQ in Water for Inj, Sterile 850 ML IV.CONT SCH (15:40)
--- NOTE | 2018-03-22 16:55 | P.CONID ---
History of Present Illness Service: ID Consult date: 03/22/18 Requesting Physician: Diego Andre Reason for Consult: sepsis Primary Care Provider: UNKNOWN Family Provider: Juan Buenrostro MD Chief Complaint: PEA cardiac arrest History of Present Illness: pt uanble to provede hx history was obtained from the chart 52 yo female with multiple med probelms including morbid obesity, diabetes melitis and cheonic L foot osteo presented after cardiac arrest i the filed Multiple hopitalisations promarily for PNA, resp failure after CPR she was admitted to ICU, intubated placed on vent she requires now prone ventilation though she tolerated today 8 hrs of supine vent'n minimal secretions She was initially hypothermic, now febrile her WBC is low with signicfixcant bandemia Blood clx growing Veionella 2/2 sets Review of Systems unobtainable due to endotracheal tube PMFSH - History History Provided By: Medical Record, Newspaper Manager / EMT - Medical History Medical History: Medical History (Last Reviewed 05/13/18 @ 13:28 by Itzel Dailey MD) Anxiety Atrial fibrillation CKD (chronic kidney disease) stage 3, GFR 30-59 ml/min Diabetes mellitus Diastolic heart failure Hx of fall Hyperlipidemia Hypertension Major depressive disorder Muscle weakness Obesity PVD (peripheral vascular disease) Respiratory failure with hypoxia - Surgical History Surgical History: Surgical History (Last Reviewed 05/13/18 @ 13:28 by Itzel Dailey MD) H/O fasciotomy Hx of tonsillectomy S/P debridement S/P popliteal-tibial bypass Status post amputation of great toe Status post amputation of lesser toe of left foot - Family History Family History: Family History (Last Reviewed 05/13/18 @ 13:28 by Itzel Dailey MD) Brother HTN (hypertension) Diabetes Other Family history of cardiac disorder in father - Social History I have reviewed the patient's Social History: Yes - Tobacco History Smoking Status: Unknown if ever smoked - Alcohol History How Often Do You Have a Drink Containing Alcohol: Unable to Obtain - Substance Use History Substance History: Unable to Obtain - Travel History Recent Travel in the [place] Within the Last 8 Weeks: No Recent Travel Out of the Country Within the Last 8 Weeks: No - Immunization History Tetanus Immunization: Unable to Assess Hx Influenza Vaccine This Season: Unable to Assess Medications and Allergies Active Medications: Active Medications Acetaminophen (Tylenol Liq) 650 mg PO Q6H PRN PRN Reason: FEVER Acetazolamide Sodium (Diamox Inj) 500 mg IV.PUSH DAILY [facility] Albuterol (Albuterol Neb (Prn)) 2.5 mg NEB Q2HR NEB PRN PRN Reason: SHORTNESS OF BREATH/WHEEZING Albuterol (Duoneb Neb (Juliane)) 1 ampul NEB Q4HR NEB [facility] Last Admin: 03/22/18 11:15 Dose: 1 ampul Lipase/Protease/Amylase (Hasmukh Rondon 24/76/120) 1 cap PO TID [facility] Last Admin: 03/22/18 12:41 Dose: 1 cap Artificial Tears (Genteal Severe Dry Eye Relief 0.3% Opth Gel) 1 drops EACH EYE Q8H [facility] Last Admin: 03/22/18 11:26 Dose: 1 drops Atorvastatin Calcium (Lipitor) 40 mg PO HS [facility] Last Admin: 03/21/18 20:20 Dose: 40 mg Bacitracin (Baciguent Oint) 1 applicatio TOPICAL DAILY [facility] Last Admin: 03/22/18 09:35 Dose: 1 applicatio Bisacodyl (Dulcolax Supp) 10 mg RECTAL DAILY PRN PRN Reason: SEVERE CONSITIPATION Carvedilol (Coreg) 6.25 mg PO Q12HR [facility] Last Admin: 03/22/18 09:33 Dose: 6.25 mg Chlorhexidine Gluconate (Peridex 0.12% Oral Kit) 15 ml OROPHARYNG BID@0800, 2000 [facility] Last Admin: 03/22/18 08:23 Dose: 15 ml Chlorhexidine Gluconate (Chlorhexidine 2% Cloth) 3 pack TOPICAL DAILY@0400 [facility] Stop: 03/24/18 03:59 Last Admin: 03/22/18 03:21 Dose: 3 pack Chlorhexidine Gluconate (Chlorhexidine 2% Cloth) 3 pack TOPICAL DAILY@0400 PRN PRN Reason: Extra cloth needed Stop: 03/24/18 03:59 Chlorothiazide Sodium (Diuril Inj) 500 mg IV.PUSH ONCE ONE Stop: 03/22/18 18:01 Dextrose (D50w Vial) 50 ml IV.PUSH UNSCH PRN PRN Reason: PER HYPOGLYCEMIA PROTOCOL Famotidine (Pepcid) 10 mg PO BID [facility] Last Admin: 03/22/18 09:33 Dose: 10 mg Glucagon (Glucagon Inj) 1 mg OTHER PRN PRN PRN Reason: for Hypoglycemia Protocol Glucagon (Glucagon Inj) 1 mg OTHER PRN PRN PRN Reason: for Hypoglycemia Protocol Fentanyl (Fentanyl 10 Mcg/Ml Premix Drip) 2,500 mcg in 250 mls @ 5 mls/hr IV.SIG TITRATE PRN; Protocol PRN Reason: Per Protocol Last Admin: 03/22/18 12:39 Dose: 250 mcg/hr, 25 mls/hr Magnesium Sulfate Inj 4 gm/ (Sodium Chloride) 100 mls @ 50 mls/hr IV.SIG UNSCH PRN PRN Reason: For Magnesium 0.9 - 1.1 mg/dL Magnesium Sulfate Inj 2 gm/ (Sodium Chloride) 100 mls @ 50 mls/hr IV.SIG UNSCH PRN PRN Reason: For Magnesium 1.2 - 1.6 mg/dL Potassium Chloride (Kcl 40 Meq Premix Inj) 40 meq in 100 mls @ 25 mls/hr IV.SIG UNSCH PRN PRN Reason: For Potassium 3.3 - 3.5 mEq/L Potassium Chloride (Kcl 20 Meq Premix Inj) 20 meq in 100 mls @ 50 mls/hr IV.SIG Q2H PRN PRN Reason: For Potassium 2.8 - 3.2 mEq/L Potassium Phosphate 30 mmol/ (Sodium Chloride) 260 mls @ 42 mls/hr IV.SIG UNSCH PRN PRN Reason: SEE LABEL COMMENTS Sodium Phosphate 30 mmol/ (Sodium Chloride) 260 mls @ 42 mls/hr IV.SIG UNSCH PRN PRN Reason: For Phosphorus < 2.5 mg/dL Potassium Chloride (Kcl 40 Meq Premix Inj) 40 meq in 100 mls @ 25 mls/hr IV.SIG Q2H PRN PRN Reason: For Potassium 2.8 - 3.2 mEq/L Pharmacy Profile Note (Vancomycin Consult Pharmacy) 0 mls @ 0 mls/hr OTHER UNSCH [facility] Azithromycin 500 mg/ Sodium (Chloride) 250 mls @ 250 mls/hr IV.SIG Q24H [facility] Last Infusion: 03/22/18 00:01 Dose: Infused Insulin Human Regular 100 unit (/ Sodium Chloride) 100 mls @ 0 mls/hr IV.CONT TITRATE PRN; Protocol PRN Reason: See protocol Last Admin: 03/22/18 10:42 Dose: 4 units/hr, 4 mls/hr Sodium Bicarbonate 150 meq/ (Sterile Water) 1,000 mls @ 50 mls/hr IV.CONT .Q20H [facility] Last Admin: 03/22/18 15:40 Dose: 50 mls/hr Midazolam HCl (Versed Inj) 50 mg in 50 mls @ 2 mls/hr IV.CONT TITRATE PRN; Protocol PRN Reason: TO MAINTAIN ORDERED RASS Last Admin: 03/22/18 12:56 Dose: 10 mg/hr, 10 mls/hr Cisatracurium Besylate 100 mg/ (Sodium Chloride) 250 mls @ 20.1 mls/hr IV.CONT TITRATE PRN; Protocol PRN Reason: Per Protocol Last Admin: 03/22/18 16:27 Dose: 0.29 mcg/kg/min, 6 mls/hr Nicardipine HCl 25 mg/ Sodium (Chloride) 250 mls @ 50 mls/hr IV.CONT TITRATE PRN; Protocol PRN Reason: Per Protocol Last Titration: 03/21/18 07:15 Dose: Infused Magnesium Sulfate Inj 4 gm/ (Sodium Chloride) 100 mls @ 50 mls/hr IV.SIG UNSCH PRN PRN Reason: For Magnesium 0.9 - 1.1 mg/dL Last Admin: 03/22/18 08:45 Dose: 50 mls/hr Magnesium Sulfate Inj 2 gm/ (Sodium Chloride) 100 mls @ 50 mls/hr IV.SIG UNSCH PRN PRN Reason: For Magnesium 1.2 - 1.6 mg/dL Potassium Chloride (Kcl 40 Meq Premix Inj) 40 meq in 100 mls @ 25 mls/hr IV.SIG Q2H PRN PRN Reason: For Potassium 2.8 - 3.2 mEq/L Potassium Chloride (Kcl 20 Meq Premix Inj) 20 meq in 100 mls @ 50 mls/hr IV.SIG Q2H PRN PRN Reason: For Potassium 3.3 - 3.5 mEq/L Last Admin: 03/22/18 08:44 Dose: 50 mls/hr Potassium Chloride (Kcl 40 Meq Premix Inj) 40 meq in 100 mls @ 25 mls/hr IV.SIG UNSCH PRN PRN Reason: For Potassium 3.3 - 3.5 mEq/L Potassium Chloride (Kcl 20 Meq Premix Inj) 20 meq in 100 mls @ 50 mls/hr IV.SIG Q2H PRN PRN Reason: For Potassium 2.8 - 3.2 mEq/L Potassium Phosphate 30 mmol/ (Sodium Chloride) 260 mls @ 42 mls/hr IV.SIG UNSCH PRN PRN Reason: SEE LABEL COMMENTS Sodium Phosphate 30 mmol/ (Sodium Chloride) 260 mls @ 42 mls/hr IV.SIG UNSCH PRN PRN Reason: For Phosphorus < 2.5 mg/dL Epoprostenol Sodium 37.5 ml/ (Sodium Chloride) 100 mls @ 8 mls/hr NEB Q8H [facility] Stop: 03/22/18 17:59 Last Admin: 03/22/18 08:00 Dose: 8 mls/hr Epoprostenol Sodium 25 ml/ (Sodium Chloride) 100 mls @ 8 mls/hr NEB Q8H [facility] Stop: 03/23/18 01:59 Epoprostenol Sodium 12.5 ml/ (Sodium Chloride) 100 mls @ 8 mls/hr NEB Q8H [facility] Stop: 03/23/18 09:59 Norepinephrine Bitartrate 16 (mg/ Sodium Chloride) 250 mls @ 1.87 mls/hr IV.CONT TITRATE PRN; Protocol PRN Reason: See Protocol Last Admin: 03/22/18 14:43 Dose: 2 mcg/min, 1.87 mls/hr Piperacillin/Tazobactam/Dextrose (Zosyn 3.375 Gm Premix) 50 mls @ 100 mls/hr IV.SIG Q6H [facility] Albumin Human (Alburx 5% Inj) 500 mls @ 250 mls/hr IV.SIG Q12H [facility] Lactulose (Lactulose Liq) 30 ml PO DAILY PRN PRN Reason: SEVERE CONSITIPATION Magnesium Oxide (Mag-Ox) 800 mg PO UNSCH PRN PRN Reason: For Magnesium 1.2 - 1.6 mg/dL Magnesium Oxide (Mag-Ox) 800 mg PO UNSCH PRN PRN Reason: For Magnesium 1.2 - 1.6 mg/dL Methylprednisolone Sodium Succinate (Solumedrol Inj) 40 mg IV.PUSH Q8HR [facility] Last Admin: 03/22/18 13:07 Dose: 40 mg Potassium Bicarb/Potassium Chloride (K-Lyte Cl Eff) 50 meq PO UNSCH PRN PRN Reason: For Potassium 3.3 - 3.5 mEq/L Potassium Bicarb/Potassium Chloride (K-Lyte Cl Eff) 50 meq PO UNSCH PRN PRN Reason: For Potassium 3.3 - 3.5 mEq/L Potassium Phosphate (K-Phos Original) 2,000 mg PO Q4H PRN PRN Reason: Phosphorus Less Than 2.5 mg/dL Potassium Phosphate (K-Phos Original) 2,000 mg PO UNSCH PRN PRN Reason: SEE LABEL COMMENTS Potassium Phosphate (K-Phos Original) 2,000 mg PO Q4H PRN PRN Reason: Phosphorus Less Than 2.5 mg/dL Potassium Phosphate (K-Phos Original) 2,000 mg PO UNSCH PRN PRN Reason: SEE LABEL COMMENTS Senna/Docusate Sodium (Katelynn-Colace) 1 tab PO BID [facility] Last Admin: 03/22/18 09:33 Dose: 1 tab Sennosides (Senokot) 17.2 mg PO Q12H PRN PRN Reason: Moderate Constipation Sodium Chloride (Ns Flush) 2 ml IV.FLUSH BID [facility] Last Admin: 03/22/18 09:34 Dose: 2 ml Sodium Chloride (Ns Flush) 2 ml IV.FLUSH PRN PRN PRN Reason: FLUSH AFTER USING IV ACCESS Sterile Water (Free Water) 100 ml NG/OG Q4HR [facility] Last Admin: 03/22/18 15:40 Dose: 100 ml Terbutaline Sulfate (Brethine Inj) 1 mg SQ UNSCH PRN PRN Reason: For Extravasation Terbutaline Sulfate (Brethine Inj) 1 mg SQ UNSCH PRN PRN Reason: For Extravasation Vitamin D (Vitamin D3) 5,000 unit PO DAILY [facility] Last Admin: 03/22/18 09:33 Dose: 5,000 unit Allergies Allergy/AdvReac Type Severity Reaction Status Date / Time ibuprofen Allergy Severe MESSES Verified 03/18/18 17:58 WITH KIDNEYS Sulfa (Sulfonamide Allergy Severe HIVES Verified 03/18/18 17:58 Antibiotics) egg Allergy Intermediate Very Upset Verified 03/18/18 17:58 Stomach milk Allergy Unknown Heartburn Verified 03/18/18 17:58 Home Medications Medication Instructions Recorded Confirmed Type allopurinol 300 mg PO DAILY 02/28/18 03/18/18 History atorvastatin 40 mg PO HS 02/28/18 03/18/18 History cholecalciferol (vitamin D3) 5,000 unit PO DAILY 02/28/18 03/18/18 History glipizide 10 mg PO BID 02/28/18 03/18/18 History insulin glargine 50 unit SUB-Q BID 02/28/18 03/18/18 History uibror-[id number]-[id number] [Creon] 1 cap PO TID 02/28/18 03/18/18 History methocarbamol 750 mg PO QID 02/28/18 03/18/18 History nifedipine 90 mg PO DAILY 02/28/18 03/18/18 History omega-3 fatty acids [Fish Oil 1,000 mg PO DAILY 02/28/18 03/18/18 History Concentrate] warfarin [Coumadin] 4 mg PO DAILY@1600 03/18/18 03/18/18 History Exam Vital signs: Vital Signs 03/21/18 17:00 03/21/18 18:00 03/21/18 19:00 Temperature Pulse Rate 53 L 53 L 52 L Respiratory Rate 14 14 14 Blood Pressure 155/84 H Pulse Oximetry 100 98 99 03/21/18 20:00 03/21/18 20:41 03/21/18 20:42 Temperature Pulse Rate 51 L 50 L Respiratory Rate 14 14 14 Blood Pressure 130/60 Pulse Oximetry 100 100 03/21/18 21:00 03/21/18 22:00 03/21/18 23:00 Temperature 87.6 F L Pulse Rate 50 L 50 L 52 L Respiratory Rate 14 14 14 Blood Pressure 108/56 L Pulse Oximetry 100 100 100 03/21/18 23:09 03/21/18 23:57 03/22/18 00:00 Temperature 87.4 F L Pulse Rate 54 L 52 L Respiratory Rate 14 14 14 Blood Pressure 104/55 L 104/57 L Pulse Oximetry 100 100 03/22/18 00:33 03/22/18 01:00 03/22/18 02:00 Temperature Pulse Rate 54 L 52 L 60 Respiratory Rate 14 7 L 14 Blood Pressure 139/64 Pulse Oximetry 100 100 03/22/18 03:00 03/22/18 03:01 03/22/18 04:00 Temperature 91.2 F L Pulse Rate 55 L 55 L 65 Respiratory Rate 14 14 16 Blood Pressure 109/55 L 121/68 Pulse Oximetry 100 100 93 L 03/22/18 04:03 03/22/18 04:34 03/22/18 05:00 Temperature Pulse Rate 60 66 Respiratory Rate 14 14 4 L Blood Pressure 134/75 Pulse Oximetry 100 03/22/18 06:00 03/22/18 07:00 03/22/18 07:53 Temperature Pulse Rate 66 67 70 Respiratory Rate 8 L 12 14 Blood Pressure 146/74 H 129/61 Pulse Oximetry 100 98 100 03/22/18 08:00 03/22/18 09:00 03/22/18 09:20 Temperature 94.6 F L Pulse Rate 66 79 79 Respiratory Rate 14 14 14 Blood Pressure 104/42 L 141/63 H 120/68 Pulse Oximetry 96 94 L 95 03/22/18 10:00 03/22/18 11:00 03/22/18 12:00 Temperature 98.2 F Pulse Rate 81 76 79 Respiratory Rate 14 16 14 Blood Pressure 132/60 120/56 L 101/55 L Pulse Oximetry 95 94 L 95 03/22/18 12:31 03/22/18 14:00 Temperature Pulse Rate 83 Respiratory Rate 14 Blood Pressure Pulse Oximetry 95 Intake & Output 03/21/18 03/22/18 03/22/18 18:59 06:59 18:59 Intake Total 4232 / 4232 2655 / 2655 2550 / 2550 Output Total 4750 / 4750 4600 / 4600 Balance -518 / -518 -1945 / -1945 2550 / 2550 Weight 122.7 kg Intake: IV 3998 / 3998 2400 / 2400 2550 / 2550 Bumex Inj 25 mg In 100 ml @ 0.5 48 / 48 MG/HR 2 mls/hr IV.CONT .Q24H [facility] Rx#:[id number] Nimbex Inj 100 MG In NS Inj 240 1500 / 1500 1750 / 1750 1000 / 1000 ML @ 1 MCG/KG/MIN 20.1 mls/hr IV.CONT TITRATE PRN Rx#: [id number] Heparin/D5W 25,000 U/250 mL 25, 250 / 250 000 unit In 250 ml @ 800 UNITS/ HR 8 mls/hr IV.CONT TITRATE PRN Rx#:[id number] NovoLIN R (IV Infusion) 100 100 / 100 UNIT In NS Inj 99 ML @ Per Protocol IV.CONT TITRATE PRN Rx #:[id number] Versed Inj 50 mg In 50 ml @ 2 150 / 150 50 / 50 100 / 100 MG/HR 2 mls/hr IV.CONT TITRATE PRN Rx#:[id number] Sodium Bicarbonate 8.4% Inj 150 1000 / 1000 1000 / 1000 MEQ In Sterile Water for Inj 850 ML @ 50 mls/hr IV.CONT . Q20H [facility] Rx#:[id number] Cardene Inj 25 MG In NS Inj 240 50 / 50 ML @ 5 MG/HR 50 mls/hr IV.CONT TITRATE PRN Rx#:[id number] Azithromycin Inj 500 MG In NS 250 / 250 Inj 250 ML @ 250 mls/hr IV.SIG Q24H [facility] Rx#:[id number] Maxipime Inj 2,000 MG In NS Inj 100 / 100 100 / 100 100 ML @ 200 mls/hr IV.SIG Q24H [facility] Rx#:[id number] Magnesium Sulfate Inj 2 GM In 100 / 100 NS Inj 96 ML @ 50 mls/hr IV.SIG NOW ONE Rx#:[id number] KCl 20 mEq Premix Inj 20 meq In 100 / 100 100 ml @ 50 mls/hr IV.SIG Q2H PRN Rx#:[id number] fentaNYL 10 mcg/mL Premix Drip 500 / 500 250 / 250 250 / 250 2,500 mcg In 250 ml @ 50 MCG/HR 5 mls/hr IV.SIG TITRATE PRN Rx #:[id number] Oral 0 / 0 0 / 0 Tube Feeding 234 / 234 195 / 195 Water Bolus Amount 60 / 60 Output: Urine Amount (Catheter) 4700 / 4700 4600 / 4600 Indwelling Urethral Catheter 4700 / 4700 4600 / 4600 Gastric Drainage 50 / 50 Left Upper Quadrant Orogastric 50 / 50 Tube Other: Date of Last Bowel Movement 03/22/18 # Bowel Movements 0 0 - Constitutional no acute distress, morbidly obese Comments: sedated paralysed - Routine HEENT Exam Head: Present: normocephalic, atraumatic, facial swelling Eye: Present: periorbital swelling ENT: Present: mucous membranes moist, oropharynx clear Comments: no scleral icerus - Routine Neck Exam Present: supple, trachea midline - Routine Respiratory Exam Present: patient mechanically ventilated, decreased breath sounds, rhonchi - Routine Cardiovascular Exam Present: RRR, S1, S2 Comments: no murmurs, rubs , gallops well perused perify - Routine Abdominal Exam Present: soft, distended Comments: no reaction to paloppation, no audfible bowel sounds no palpable organomegaly small amoutn of stool in rectal collection system - Routine Exam Comments: hernandez in place with small amount of clear yellow urine - Routine Extremities Exam Present: edema Comments: L foot edematous, s/p well hhealed mutiple toes and hallux amputations + draining foul smelluing pus, small amount - Routine Skin Exam Present: intact, dry Comments: no cyanosis - Routine Neurological Exam heavily sedated and paralysed - Routine Psychiatric Exam Present: unable to assess Results - Labs CBC & Chem 7: 04/22/18 05:00 04/22/18 05:00 Labs: Laboratory Results - last 24 hr 03/21/18 03/21/18 03/21/18 16:38 17:04 18:26 WBC RBC Hgb Hct MCV MCH MCHC RDW Plt Count MPV Prelim Diff (Auto) Neut % (Auto) Lymph % (Auto) [place] % (Auto) Eos % (Auto) Baso % (Auto) Neut # (Auto) Lymph # (Auto) [place] # (Auto) Eos # (Auto) Baso # (Auto) WBC Differential Seg Neuts % (Manual) Band Neuts % (Manual) Lymphocytes % (Manual) Monocytes % (Manual) Abs Neuts (Manual) Nucleated RBCs/100 WBC Differential Comment Dohle Bodies Platelet Estimate Platelet Morphology Ovalocytes Acanthocytes (Spur) PT INR APTT Puncture Site Patient Temperature O2 Saturation ABG pH ABG pCO2 ABG pO2 ABG HCO3 ABG O2 Content ABG Base Excess ABG Methemoglobin Hemoglobin Carboxyhemoglobin O2 Delivery Device Vent Setting Inspired O2 Critical Value Sodium Potassium Chloride Carbon Dioxide Anion Gap BUN Creatinine Estimated GFR POC Glucose 161 H 147 H 153 H Random Glucose Calcium Prot Corrected Calcium Phosphorus Magnesium Total Bilirubin AST ALT Alkaline Phosphatase Total Protein Albumin Random Vancomycin Blood Type Antibody Screen MTS Gel Crossmatch 03/21/18 03/21/18 03/21/18 19:53 22:02 23:03 WBC RBC Hgb Hct MCV MCH MCHC RDW Plt Count MPV Prelim Diff (Auto) Neut % (Auto) Lymph % (Auto) [place] % (Auto) Eos % (Auto) Baso % (Auto) Neut # (Auto) Lymph # (Auto) [place] # (Auto) Eos # (Auto) Baso # (Auto) WBC Differential Seg Neuts % (Manual) Band Neuts % (Manual) Lymphocytes % (Manual) Monocytes % (Manual) Abs Neuts (Manual) Nucleated RBCs/100 WBC Differential Comment Dohle Bodies Platelet Estimate Platelet Morphology Ovalocytes Acanthocytes (Spur) PT INR APTT Puncture Site Patient Temperature O2 Saturation ABG pH ABG pCO2 ABG pO2 ABG HCO3 ABG O2 Content ABG Base Excess ABG Methemoglobin Hemoglobin Carboxyhemoglobin O2 Delivery Device Vent Setting Inspired O2 Critical Value Sodium Potassium Chloride Carbon Dioxide Anion Gap BUN Creatinine Estimated GFR POC Glucose 153 H 160 H 193 H Random Glucose Calcium Prot Corrected Calcium Phosphorus Magnesium Total Bilirubin AST ALT Alkaline Phosphatase Total Protein Albumin Random Vancomycin Blood Type Antibody Screen MTS Gel Crossmatch 03/22/18 03/22/18 03/22/18 00:07 01:08 02:12 WBC RBC Hgb Hct MCV MCH MCHC RDW Plt Count MPV Prelim Diff (Auto) Neut % (Auto) Lymph % (Auto) [place] % (Auto) Eos % (Auto) Baso % (Auto) Neut # (Auto) Lymph # (Auto) [place] # (Auto) Eos # (Auto) Baso # (Auto) WBC Differential Seg Neuts % (Manual) Band Neuts % (Manual) Lymphocytes % (Manual) Monocytes % (Manual) Abs Neuts (Manual) Nucleated RBCs/100 WBC Differential Comment Dohle Bodies Platelet Estimate Platelet Morphology Ovalocytes Acanthocytes (Spur) PT INR APTT Puncture Site Patient Temperature O2 Saturation ABG pH ABG pCO2 ABG pO2 ABG HCO3 ABG O2 Content ABG Base Excess ABG Methemoglobin Hemoglobin Carboxyhemoglobin O2 Delivery Device Vent Setting Inspired O2 Critical Value Sodium Potassium Chloride Carbon Dioxide Anion Gap BUN Creatinine Estimated GFR POC Glucose 203 H 193 H 168 H Random Glucose Calcium Prot Corrected Calcium Phosphorus Magnesium Total Bilirubin AST ALT Alkaline Phosphatase Total Protein Albumin Random Vancomycin Blood Type Antibody Screen MTS Gel Crossmatch 03/22/18 03/22/18 03/22/18 03:14 04:48 05:17 WBC RBC Hgb Hct MCV MCH MCHC RDW Plt Count MPV Prelim Diff (Auto) Neut % (Auto) Lymph % (Auto) [place] % (Auto) Eos % (Auto) Baso % (Auto) Neut # (Auto) Lymph # (Auto) [place] # (Auto) Eos # (Auto) Baso # (Auto) WBC Differential Seg Neuts % (Manual) Band Neuts % (Manual) Lymphocytes % (Manual) Monocytes % (Manual) Abs Neuts (Manual) Nucleated RBCs/100 WBC Differential Comment Dohle Bodies Platelet Estimate Platelet Morphology Ovalocytes Acanthocytes (Spur) PT INR APTT Puncture Site Art line Patient Temperature 98.6 O2 Saturation 94 ABG pH 7.49 H ABG pCO2 42 ABG pO2 103 ABG HCO3 31 H ABG O2 Content 10.7 L ABG Base Excess 7.6 H ABG Methemoglobin 1.3 Hemoglobin 7.9 L Carboxyhemoglobin 0.1 O2 Delivery Device Ventilator Vent Setting Prvc/ac Inspired O2 40 Critical Value No Sodium Potassium Chloride Carbon Dioxide Anion Gap BUN Creatinine Estimated GFR POC Glucose 163 H 160 H Random Glucose Calcium Prot Corrected Calcium Phosphorus Magnesium Total Bilirubin AST ALT Alkaline Phosphatase Total Protein Albumin Random Vancomycin Blood Type Antibody Screen MTS Gel Crossmatch 03/22/18 03/22/18 03/22/18 05:18 05:18 05:31 WBC 5.9 RBC 3.71 L Hgb 8.2 L Hct 25.9 L MCV 69.7 L MCH 22.0 L MCHC 31.5 L RDW 22.4 H Plt Count 198 MPV 9.1 Prelim Diff (Auto) Slide review pending Neut % (Auto) 92.0 H Lymph % (Auto) 1.9 L [place] % (Auto) 6.0 Eos % (Auto) 0.0 Baso % (Auto) 0.1 Neut # (Auto) 5.4 Lymph # (Auto) 0.1 L [place] # (Auto) 0.4 Eos # (Auto) 0.0 Baso # (Auto) 0.0 WBC Differential Manual diff final Seg Neuts % (Manual) 73 H Band Neuts % (Manual) 22 H Lymphocytes % (Manual) 3 L Monocytes % (Manual) 2 Abs Neuts (Manual) 5.6 Nucleated RBCs/100 WBC 3 H Differential Comment . Dohle Bodies Platelet Estimate Normal Platelet Morphology Normal Ovalocytes Acanthocytes (Spur) PT 23.5 H INR 2.3 APTT Puncture Site Patient Temperature O2 Saturation ABG pH ABG pCO2 ABG pO2 ABG HCO3 ABG O2 Content ABG Base Excess ABG Methemoglobin Hemoglobin Carboxyhemoglobin O2 Delivery Device Vent Setting Inspired O2 Critical Value Sodium 147 H Potassium 3.3 L Chloride 104 Carbon Dioxide 34.3 H Anion Gap 9 BUN 44 H Creatinine 1.45 H Estimated GFR 46 L POC Glucose Random Glucose 142 H Calcium 7.4 L* Prot Corrected Calcium 8.4 L Phosphorus 4.0 Magnesium 1.6 Total Bilirubin 0.6 AST 17 ALT 28 Alkaline Phosphatase 88 Total Protein 5.3 L D Albumin 1.9 L Random Vancomycin 15.8 Blood Type Antibody Screen MTS Gel Crossmatch 03/22/18 03/22/18 03/22/18 06:02 07:18 08:22 WBC RBC Hgb Hct MCV MCH MCHC RDW Plt Count MPV Prelim Diff (Auto) Neut % (Auto) Lymph % (Auto) [place] % (Auto) Eos % (Auto) Baso % (Auto) Neut # (Auto) Lymph # (Auto) [place] # (Auto) Eos # (Auto) Baso # (Auto) WBC Differential Seg Neuts % (Manual) Band Neuts % (Manual) Lymphocytes % (Manual) Monocytes % (Manual) Abs Neuts (Manual) Nucleated RBCs/100 WBC Differential Comment Dohle Bodies Platelet Estimate Platelet Morphology Ovalocytes Acanthocytes (Spur) PT INR APTT Puncture Site Patient Temperature O2 Saturation ABG pH ABG pCO2 ABG pO2 ABG HCO3 ABG O2 Content ABG Base Excess ABG Methemoglobin Hemoglobin Carboxyhemoglobin O2 Delivery Device Vent Setting Inspired O2 Critical Value Sodium Potassium Chloride Carbon Dioxide Anion Gap BUN Creatinine Estimated GFR POC Glucose 157 H 145 H 151 H Random Glucose Calcium Prot Corrected Calcium Phosphorus Magnesium Total Bilirubin AST ALT Alkaline Phosphatase Total Protein Albumin Random Vancomycin Blood Type Antibody Screen MTS Gel Crossmatch 03/22/18 03/22/18 03/22/18 09:00 09:05 09:58 WBC RBC Hgb Hct MCV MCH MCHC RDW Plt Count MPV Prelim Diff (Auto) Neut % (Auto) Lymph % (Auto) [place] % (Auto) Eos % (Auto) Baso % (Auto) Neut # (Auto) Lymph # (Auto) [place] # (Auto) Eos # (Auto) Baso # (Auto) WBC Differential Seg Neuts % (Manual) Band Neuts % (Manual) Lymphocytes % (Manual) Monocytes % (Manual) Abs Neuts (Manual) Nucleated RBCs/100 WBC Differential Comment Dohle Bodies Platelet Estimate Platelet Morphology Ovalocytes Acanthocytes (Spur) PT INR APTT 93.5 H* D Puncture Site Patient Temperature O2 Saturation ABG pH ABG pCO2 ABG pO2 ABG HCO3 ABG O2 Content ABG Base Excess ABG Methemoglobin Hemoglobin Carboxyhemoglobin O2 Delivery Device Vent Setting Inspired O2 Critical Value Sodium Potassium Chloride Carbon Dioxide Anion Gap BUN Creatinine Estimated GFR POC Glucose 160 H 156 H Random Glucose Calcium Prot Corrected Calcium Phosphorus Magnesium Total Bilirubin AST ALT Alkaline Phosphatase Total Protein Albumin Random Vancomycin Blood Type Antibody Screen MTS Gel Crossmatch 03/22/18 03/22/18 03/22/18 10:59 12:00 12:00 WBC 7.8 RBC 3.39 L Hgb 7.4 L Hct 24.2 L MCV 71.5 L MCH 21.8 L MCHC 30.6 L RDW 22.4 H Plt Count 195 MPV 8.7 Prelim Diff (Auto) Slide review pending Neut % (Auto) 93.9 H Lymph % (Auto) 1.2 L [place] % (Auto) 4.8 Eos % (Auto) 0.0 Baso % (Auto) 0.1 Neut # (Auto) 7.3 Lymph # (Auto) 0.1 L [place] # (Auto) 0.4 Eos # (Auto) 0.0 Baso # (Auto) 0.0 WBC Differential Manual diff final Seg Neuts % (Manual) 85 H Band Neuts % (Manual) 14 H Lymphocytes % (Manual) Monocytes % (Manual) 1 Abs Neuts (Manual) 7.7 Nucleated RBCs/100 WBC 7 H Differential Comment . Dohle Bodies Present H Platelet Estimate Normal Platelet Morphology Normal Ovalocytes 1+ H Acanthocytes (Spur) Occ H PT INR APTT Puncture Site Patient Temperature O2 Saturation ABG pH ABG pCO2 ABG pO2 ABG HCO3 ABG O2 Content ABG Base Excess ABG Methemoglobin Hemoglobin Carboxyhemoglobin O2 Delivery Device Vent Setting Inspired O2 Critical Value Sodium Potassium Chloride Carbon Dioxide Anion Gap BUN Creatinine Estimated GFR POC Glucose 156 H Random Glucose Calcium Prot Corrected Calcium Phosphorus Magnesium 2.5 D Total Bilirubin AST ALT Alkaline Phosphatase Total Protein Albumin Random Vancomycin Blood Type Antibody Screen MTS Gel Crossmatch 03/22/18 03/22/18 03/22/18 12:00 12:09 12:53 WBC RBC Hgb Hct MCV MCH MCHC RDW Plt Count MPV Prelim Diff (Auto) Neut % (Auto) Lymph % (Auto) [place] % (Auto) Eos % (Auto) Baso % (Auto) Neut # (Auto) Lymph # (Auto) [place] # (Auto) Eos # (Auto) Baso # (Auto) WBC Differential Seg Neuts % (Manual) Band Neuts % (Manual) Lymphocytes % (Manual) Monocytes % (Manual) Abs Neuts (Manual) Nucleated RBCs/100 WBC Differential Comment Dohle Bodies Platelet Estimate Platelet Morphology Ovalocytes Acanthocytes (Spur) PT INR APTT 45.4 H D Puncture Site Patient Temperature O2 Saturation ABG pH ABG pCO2 ABG pO2 ABG HCO3 ABG O2 Content ABG Base Excess ABG Methemoglobin Hemoglobin Carboxyhemoglobin O2 Delivery Device Vent Setting Inspired O2 Critical Value Sodium Potassium Chloride Carbon Dioxide Anion Gap BUN Creatinine Estimated GFR POC Glucose 144 H 163 H Random Glucose Calcium Prot Corrected Calcium Phosphorus Magnesium Total Bilirubin AST ALT Alkaline Phosphatase Total Protein Albumin Random Vancomycin Blood Type Antibody Screen MTS Gel Crossmatch 03/22/18 03/22/18 03/22/18 13:00 13:59 14:58 WBC RBC Hgb Hct MCV MCH MCHC RDW Plt Count MPV Prelim Diff (Auto) Neut % (Auto) Lymph % (Auto) [place] % (Auto) Eos % (Auto) Baso % (Auto) Neut # (Auto) Lymph # (Auto) [place] # (Auto) Eos # (Auto) Baso # (Auto) WBC Differential Seg Neuts % (Manual) Band Neuts % (Manual) Lymphocytes % (Manual) Monocytes % (Manual) Abs Neuts (Manual) Nucleated RBCs/100 WBC Differential Comment Dohle Bodies Platelet Estimate Platelet Morphology Ovalocytes Acanthocytes (Spur) PT INR APTT Puncture Site Patient Temperature O2 Saturation ABG pH ABG pCO2 ABG pO2 ABG HCO3 ABG O2 Content ABG Base Excess ABG Methemoglobin Hemoglobin Carboxyhemoglobin O2 Delivery Device Vent Setting Inspired O2 Critical Value Sodium Potassium Chloride Carbon Dioxide Anion Gap BUN Creatinine Estimated GFR POC Glucose 125 H 129 H Random Glucose Calcium Prot Corrected Calcium Phosphorus Magnesium Total Bilirubin AST ALT Alkaline Phosphatase Total Protein Albumin Random Vancomycin Blood Type AB Positive Antibody Screen Positive H MTS Gel Crossmatch See Detail - Imaging Impressions Chest X-Ray 03/22/18 06:00 CONCLUSION: Increased left mid lung pulmonary consolidation versus atelectasis. Assessment and Plan - Plan sp cardiac arrest Anaerobic sepsis ? source : GI vs osteo Acute VDRF PNA vs ARDS - change abx from cefepime to zosyn - KUB, when feasible CT A/P - L foot Xray, MRI when feasible sputum clx dw Dr Thai angel RN @ b/s
[2018-03-22] MEDS: Albumin Human 5% Inj 500 ML IV.SIG SCH (17:02)
[2018-03-22] MEDS: Piperacil/Tazo 3.375 GM Premix 50 ML IV.SIG SCH ×2 (17:03→21:59)
--- NOTE | 2018-03-22 17:45 | XR ---
EXAM DATE: 03/22/2018 5:37 PM EDT AGE/SEX: 52 years / Female INDICATIONS: Distention. CLINICAL DATA: This is the patient's initial encounter. Patient reports that signs and symptoms have been present for 1 day and indicates a pain score of Nonresponsive. MEDICAL/SURGICAL HISTORY: . Afib. CKD. Diabetic. HTN. PVD. Heart failure., . Fasciotomy. Tons illectomy. Pop-tibial bypass. Toe amputation. COMPARISON: No prior exams available for comparison. FINDINGS: NG tip in stomach. Rectal temperature probe present. Bowel gas pattern nonspecific with probable mild ileus. No free air identified. CONCLUSION: Mild ileus. NG tip in stomach. Electronically signed by: Travis Bellamy MD 03/22/2018 5:43 PM EDT
--- NOTE | 2018-03-22 17:47 | XR ---
EXAM DATE: 03/22/2018 5:36 PM EDT AGE/SEX: 52 years / Female INDICATIONS: Inflammation. CLINICAL DATA: This is the patient's initial encounter. Patient reports that signs and symptoms have been present for 1 day and indicates a pain score of Nonresponsive. MEDICAL/SURGICAL HISTORY: . Afib. CKD. Diabetic. HTN. PVD. Heart failure., . Fasciotomy. Tonsi llectomy. Pop-tibial bypass. Toe amputation. COMPARISON: [facility] – [place], FOOT LEFT COMPLETE ([id number]), 07/14/2017. . FINDINGS: Comparison is July 2017. There is near-complete amputation of the great toe and complete amputati on of the second toe and fifth toe. Partial amputation of the third toe. There is soft tissue swellin g of the forefoot which has developed since the prior examination. No acute bony destructive change. CONCLUSION: No acute bony destructive change. Previous amputations as above. Fairly marked soft tissue swelling o f the forefoot. Electronically signed by: Travis Bellamy MD 03/22/2018 5:45 PM EDT
[2018-03-22] MEDS ORDERED: Chlorothiazide Inj 500 MG Vial IV.PUSH ONE (18:00)
[2018-03-22] MEDS ORDERED: Polyethylene Glycol 3350 17 GM Packet NG/OG SCH (21:00)
[2018-03-22] MEDS: Azithromycin Inj 500 MG in Sodium Chlor 0.9% Inj 250 ML IV.SIG SCH (21:14)
[2018-03-23] MEDS: Cisatracurium Inj 100 MG in Sodium Chlor 0.9% Inj 240 ML IV.CONT PRN ×7 (00:47→22:01)
[2018-03-23] MEDS: SODIUM CHLOR NEB SCH (00:49)
[2018-03-23] MEDS: EPOPROSTENOL NEB SCH (00:49)
[2018-03-23 00:55] LABS: Activated Partial Thrombo Time 46.3 sec (24.3-30.1); INR 2.5 Ratio; Prothrombin Time 24.8 sec (9.8-11.6)
[2018-03-23] MEDS: Hypromellose 0.3% Opth Gel 10 GM Bottle EACH EYE SCH ×3 (03:07→18:26)
[2018-03-23] MEDS: Oral Hygiene Kit OROPHARYNG SCH ×4 (03:08→23:39)
[2018-03-23] MEDS: Chlorhexidine Gluconate 2% 1 Pack (2 Cloths) TOPICAL SCH (03:08)
[2018-03-23] MEDS: Piperacil/Tazo 3.375 GM Premix 50 ML IV.SIG SCH ×4 (04:11→22:05)
[2018-03-23] MEDS: Albumin Human 5% Inj 500 ML IV.SIG SCH ×2 (04:12→16:00)
[2018-03-23 05:06] LABS: Baso % (Auto) 0.2 % (0.0-2.0); Hematocrit 23.8 % (35.0-46.0); Hemoglobin 7.5 gm/dL (11.6-15.3); Lymph # (Auto) 0.4 th/mm3 (1.0-4.8); Lymph % (Auto) 3.4 % (9.0-44.0); Mean Corpuscular HGB Conc 31.3 % (32.0-36.0); Mean Corpuscular Volume 73.4 fL (80.0-100.0); Mono # (Auto) 0.5 th/mm3 (0.0-0.9); Mono % (Auto) 4.2 % (0.0-8.0); Neut # (Auto) 11.6 th/mm3 (1.8-7.7); Neut % (Auto) 92.2 % (16.0-70.0); Platelet Count 164 th/mm3 (150-450); Red Blood Count 3.25 mil/mm3 (4.00-5.30); Red Cell Distribution Width 23.2 % (11.6-17.2); White Blood Count 12.6 th/mm3 (4.0-11.0)
[2018-03-23 05:22] LABS: Calcium 7.2 mg/dL (8.5-10.1); Carbon Dioxide 32.6 meq/L (21.0-32.0); Magnesium 2.1 mg/dL (1.5-2.5); Potassium 4.2 meq/L (3.5-5.1); Total Protein 5.2 g/dL (6.4-8.2)
[2018-03-23] MEDS: MethylPREDNISolone Sod Succinate Inj 40 MG/ML Vial IV.PUSH SCH ×3 (05:27→21:06)
[2018-03-23 05:43] LABS: ABG Base Excess 5.3 mmol/L (-2-2); ABG PCO2 40 mmHg (38-42); ABG PO2 63 mmHG (61-120)
--- NOTE | 2018-03-23 05:58 | XR ---
EXAM DATE: 03/23/2018 5:38 AM EDT AGE/SEX: 52 years / Female INDICATIONS: Shortness of breath, possible pulmonary disease. CLINICAL DATA: This is the patient's subsequent encounter. Patient reports that signs and symptoms h ave been present for 1 week and indicates a pain score of Nonresponsive. MEDICAL/SURGICAL HISTORY: Hypertension. Diabetes. Chronic obstructive pulmonary disease. PVD A-Fib CHF GERD DVT Tonsillectomy. Tubal ligation. Mastectomy COMPARISON: C, CHEST 1V SINGLE AP, 03/22/2018. . FINDINGS: Patchy bilateral airspace disease with interval worsening on the left. Heart size is borderline promi nent. Life support tubes are stable CONCLUSION: Worsening patchy airspace disease, particularly in the left hemithorax. Life support tubes are stable in position Electronically signed by: Mark Zuniga MD 03/23/2018 5:57 AM EDT
[2018-03-23] MEDS: fentaNYL 10 mcg/mL Premix Drip 2,500 MCG/250 ML BAG IV.SIG PRN ×2 (07:56→15:50)
[2018-03-23] MEDS: Famotidine 20 MG Tablet PO SCH ×2 (08:50→20:30)
[2018-03-23] MEDS: Carvedilol 6.25 MG Tablet PO SCH ×2 (08:50→20:30)
[2018-03-23] MEDS: Senna/Docusate Sodium 8.6/50 MG Tablet PO SCH ×2 (08:50→20:32)
[2018-03-23] MEDS: Lipase/Protease/Amylase 24/76/120 DR Capsule PO SCH ×3 (08:50→17:03)
[2018-03-23] MEDS: Chlorhexidine 0.12% Oral Kit 15 ML UDC OROPHARYNG SCH ×2 (08:51→20:30)
[2018-03-23] MEDS: Midazolam 50 MG/50 ML Inj 50 MG/50 ML BAG IV.CONT PRN ×4 (09:15→20:19)
[2018-03-23] MEDS: Sodium Bicarbonate 8.4% Inj 150 MEQ in Water for Inj, Sterile 850 ML IV.CONT SCH (10:22)
--- NOTE | 2018-03-23 11:51 | P.PNID ---
Subjective Remarks: remains critical On 40% FiO2 PEEP 8 remains on vent large amount of secretions off pressors + liquid stool KUB with ileus Foot Xray wo bone destruction sputum is puruelnt with GNBs on Gstain Antibiotics: vanco zosyn Allergies/Adverse Reactions: Allergies ibuprofen Allergy (Severe, Verified 03/18/18 17:58) MESSES WITH KIDNEYS Sulfa (Sulfonamide Antibiotics) Allergy (Severe, Verified 03/18/18 17:58) HIVES egg Allergy (Intermediate, Verified 03/18/18 17:58) Very Upset Stomach milk Allergy (Unknown, Verified 03/18/18 17:58) Heartburn Objective Vital Signs 03/22/18 12:00 03/22/18 12:31 03/22/18 12:42 Temperature 98.2 F Pulse Rate 79 82 Respiratory Rate 14 14 14 Blood Pressure 101/55 L 99/54 L Pulse Oximetry 95 95 95 03/22/18 13:00 03/22/18 13:14 03/22/18 14:00 Temperature Pulse Rate 82 82 83 Respiratory Rate 14 14 14 Blood Pressure 91/52 L 91/51 L 95/52 L Pulse Oximetry 95 94 L 91 L 03/22/18 15:00 03/22/18 16:00 03/22/18 17:00 Temperature 97.9 F Pulse Rate 81 66 79 Respiratory Rate 14 14 14 Blood Pressure 109/52 L 105/46 L 100/47 L Pulse Oximetry 94 L 96 98 03/22/18 18:00 03/22/18 19:00 03/22/18 19:50 Temperature 96.6 F L Pulse Rate 82 79 79 Respiratory Rate 16 15 14 Blood Pressure 112/55 L 115/51 L 135/55 L Pulse Oximetry 98 98 99 03/22/18 19:56 03/22/18 20:00 03/22/18 20:17 Temperature 96.8 F L 96.6 F L Pulse Rate 76 75 Respiratory Rate 14 15 17 Blood Pressure 120/50 L 126/61 Pulse Oximetry 97 99 03/22/18 20:32 03/22/18 21:00 03/22/18 22:00 Temperature 98.2 F Pulse Rate 76 74 74 Respiratory Rate 15 14 14 Blood Pressure 150/68 H 133/64 Pulse Oximetry 96 99 03/22/18 22:26 03/22/18 23:00 03/23/18 00:00 Temperature 97.3 F L 98.1 F Pulse Rate 71 68 66 Respiratory Rate 14 16 17 Blood Pressure 110/49 L 140/64 147/68 H Pulse Oximetry 98 96 96 03/23/18 00:19 03/23/18 00:47 03/23/18 01:00 Temperature Pulse Rate 66 66 Respiratory Rate 17 15 0 L Blood Pressure 148/65 H Pulse Oximetry 95 95 03/23/18 02:00 03/23/18 03:00 03/23/18 03:55 Temperature Pulse Rate 67 67 67 Respiratory Rate 19 10 L Blood Pressure 133/63 122/58 L 129/49 L Pulse Oximetry 97 96 03/23/18 04:00 03/23/18 04:40 03/23/18 05:00 Temperature 98.2 F Pulse Rate 67 67 66 Respiratory Rate 17 16 14 Blood Pressure 125/57 L 137/61 Pulse Oximetry 96 97 96 03/23/18 06:00 03/23/18 07:00 03/23/18 07:45 Temperature Pulse Rate 67 66 68 Respiratory Rate 17 14 14 Blood Pressure 144/64 H 153/66 H Pulse Oximetry 94 L 96 96 03/23/18 08:00 03/23/18 09:00 03/23/18 10:00 Temperature 97.5 F L 97.2 F L 97.9 F Pulse Rate 66 65 65 Respiratory Rate 18 13 14 Blood Pressure 143/56 H 130/52 L 141/65 H Pulse Oximetry 98 93 L 93 L 03/23/18 11:00 03/23/18 11:01 Temperature 97.9 F Pulse Rate 75 73 Respiratory Rate 13 19 Blood Pressure 172/77 H Pulse Oximetry 94 L 93 L Intake & Output 03/22/18 03/23/18 03/23/18 18:59 06:59 18:59 Intake Total 4528 / 4528 3496 / 3496 1550 / 1550 Output Total 400 / 400 1750 / 1750 Balance 4128 / 4128 1746 / 1746 1550 / 1550 Weight 127.7 kg Intake: IV 4100 / 4100 2950 / 2950 1550 / 1550 Nimbex Inj 100 MG In NS Inj 240 1250 / 1250 1500 / 1500 250 / 250 ML @ 1 MCG/KG/MIN 20.1 mls/hr IV.CONT TITRATE PRN Rx#: [id number] Versed Inj 50 mg In 50 ml @ 2 150 / 150 50 / 50 50 / 50 MG/HR 2 mls/hr IV.CONT TITRATE PRN Rx#:[id number] Sodium Bicarbonate 8.4% Inj 150 1000 / 1000 1000 / 1000 MEQ In Sterile Water for Inj 850 ML @ 50 mls/hr IV.CONT . Q20H JACKI Rx#:[id number] Alburx 5% Inj 500 ML @ 250 mls/ 500 / 500 500 / 500 hr IV.SIG Q12H JACKI Rx#:[id number] Azithromycin Inj 500 MG In NS 250 / 250 Inj 250 ML @ 250 mls/hr IV.SIG Q24H JACKI Rx#:[id number] Maxipime Inj 2,000 MG In NS Inj 100 / 100 100 ML @ 200 mls/hr IV.SIG Q24H JACKI Rx#:[id number] Magnesium Sulfate Inj 4 GM In 100 / 100 NS Inj 92 ML @ 50 mls/hr IV.SIG UNSCH PRN Rx#:[id number] Zosyn 3.375 GM Premix 50 ML @ 50 / 50 100 / 100 100 mls/hr IV.SIG Q6H JACKI Rx#: [id number] KCl 20 mEq Premix Inj 20 meq In 200 / 200 100 ml @ 50 mls/hr IV.SIG Q2H PRN Rx#:[id number] NS Inj 500 ML @ Wide Open IV. 500 / 500 SIG BOLUS ONE Rx#:[id number] fentaNYL 10 mcg/mL Premix Drip 250 / 250 250 / 250 250 / 250 2,500 mcg In 250 ml @ 50 MCG/HR 5 mls/hr IV.SIG TITRATE PRN Rx #:[id number] Flolan (30,000 ng/mL) Neb 25 ML 200 / 200 In NS Inj 75 ML @ 8 mls/hr NEB Q8H JACKI Rx#:[id number] Oral 0 / 0 Tube Feeding 228 / 228 346 / 346 Water Bolus Amount 200 / 200 200 / 200 Intake (Blood Product) Amt 0 / 0 Rbc As-3 Leukoreduced Unit 0 / 0 [id number] Output: Stool 50 / 50 0 / 0 Urine Amount (Catheter) 350 / 350 1750 / 1750 Indwelling Urethral Catheter 350 / 350 1750 / 1750 Other: Date of Last Bowel Movement 03/22/18 03/22/18 03/22/18 # Bowel Movements 0 03/20/18 09:40 Blood - Line Aerobic Blood Culture - Preliminary No growth in 3 days 03/20/18 09:40 Blood - Line Anaerobic Blood Culture - Preliminary No growth in 3 days 03/18/18 18:15 Blood - Peripheral Aerobic Blood Culture - Final No growth in 5 days 03/18/18 18:15 Blood - Peripheral Anaerobic Blood Culture - Final Veillonella species 03/18/18 18:00 Blood - Peripheral Aerobic Blood Culture - Final No growth in 5 days 03/18/18 18:00 Blood - Peripheral Anaerobic Blood Culture - Final Veillonella species 03/22/18 22:00 Sputum - Endotracheal Gram Stain - Final 03/22/18 22:00 Sputum - Endotracheal Sputum Culture - Pending Lab - Hematology Results 03/21/18 03/22/18 03/22/18 14:50 05:18 12:00 WBC 5.8 5.9 7.8 RBC 3.93 L 3.71 L 3.39 L Hgb 8.6 L 8.2 L 7.4 L Hct 27.5 L 25.9 L 24.2 L MCV 69.9 L 69.7 L 71.5 L MCH 21.9 L 22.0 L 21.8 L MCHC 31.3 L 31.5 L 30.6 L RDW 22.9 H 22.4 H 22.4 H Plt Count 223 198 195 MPV 8.7 9.1 8.7 Prelim Diff (Auto) Slide review pending Slide review pending Neut % (Auto) 92.0 H 93.9 H Lymph % (Auto) 1.9 L 1.2 L [place] % (Auto) 6.0 4.8 Eos % (Auto) 0.0 0.0 Baso % (Auto) 0.1 0.1 Neut # (Auto) 5.4 7.3 Lymph # (Auto) 0.1 L 0.1 L [place] # (Auto) 0.4 0.4 Eos # (Auto) 0.0 0.0 Baso # (Auto) 0.0 0.0 WBC Differential Manual diff final Manual diff final Seg Neuts % (Manual) 73 H 85 H Band Neuts % (Manual) 22 H 14 H Lymphocytes % (Manual) 3 L Monocytes % (Manual) 2 1 Abs Neuts (Manual) 5.6 7.7 Nucleated RBCs/100 WBC 3 H 7 H Differential Comment . . Dohle Bodies Present H Platelet Estimate Normal Normal Platelet Morphology Normal Normal Ovalocytes 1+ H Acanthocytes (Spur) Occ H 03/23/18 04:25 WBC 12.6 H D RBC 3.25 L Hgb 7.5 L Hct 23.8 L MCV 73.4 L MCH 23.0 L MCHC 31.3 L RDW 23.2 H Plt Count 164 MPV 9.0 Prelim Diff (Auto) Neut % (Auto) 92.2 H Lymph % (Auto) 3.4 L [place] % (Auto) 4.2 Eos % (Auto) 0.0 Baso % (Auto) 0.2 Neut # (Auto) 11.6 H Lymph # (Auto) 0.4 L [place] # (Auto) 0.5 Eos # (Auto) 0.0 Baso # (Auto) 0.0 WBC Differential . Seg Neuts % (Manual) Band Neuts % (Manual) Lymphocytes % (Manual) Monocytes % (Manual) Abs Neuts (Manual) Nucleated RBCs/100 WBC Differential Comment Auto diff final Dohle Bodies Platelet Estimate Platelet Morphology Ovalocytes Acanthocytes (Spur) Lab - Chemistry Results 03/21/18 03/21/18 03/21/18 11:54 13:16 14:12 Sodium Potassium Chloride Carbon Dioxide Anion Gap BUN Creatinine Estimated GFR POC Glucose 172 H 154 H 175 H Random Glucose Calcium Prot Corrected Calcium Phosphorus Magnesium Total Bilirubin AST ALT Alkaline Phosphatase Total Protein Albumin 03/21/18 03/21/18 03/21/18 14:50 16:38 17:04 Sodium 147 H Potassium 4.0 Chloride 107 Carbon Dioxide 32.5 H Anion Gap 8 BUN 46 H Creatinine 1.64 H Estimated GFR 40 L POC Glucose 161 H 147 H Random Glucose 152 H Calcium 7.9 L Prot Corrected Calcium Phosphorus 4.0 Magnesium 1.7 Total Bilirubin AST ALT Alkaline Phosphatase Total Protein Albumin 03/21/18 03/21/18 03/21/18 18:26 19:53 22:02 Sodium Potassium Chloride Carbon Dioxide Anion Gap BUN Creatinine Estimated GFR POC Glucose 153 H 153 H 160 H Random Glucose Calcium Prot Corrected Calcium Phosphorus Magnesium Total Bilirubin AST ALT Alkaline Phosphatase Total Protein Albumin 03/21/18 03/22/18 03/22/18 23:03 00:07 01:08 Sodium Potassium Chloride Carbon Dioxide Anion Gap BUN Creatinine Estimated GFR POC Glucose 193 H 203 H 193 H Random Glucose Calcium Prot Corrected Calcium Phosphorus Magnesium Total Bilirubin AST ALT Alkaline Phosphatase Total Protein Albumin 03/22/18 03/22/18 03/22/18 02:12 03:14 04:48 Sodium Potassium Chloride Carbon Dioxide Anion Gap BUN Creatinine Estimated GFR POC Glucose 168 H 163 H 160 H Random Glucose Calcium Prot Corrected Calcium Phosphorus Magnesium Total Bilirubin AST ALT Alkaline Phosphatase Total Protein Albumin 03/22/18 03/22/18 03/22/18 05:18 06:02 07:18 Sodium 147 H Potassium 3.3 L Chloride 104 Carbon Dioxide 34.3 H Anion Gap 9 BUN 44 H Creatinine 1.45 H Estimated GFR 46 L POC Glucose 157 H 145 H Random Glucose 142 H Calcium 7.4 L* Prot Corrected Calcium 8.4 L Phosphorus 4.0 Magnesium 1.6 Total Bilirubin 0.6 AST 17 ALT 28 Alkaline Phosphatase 88 Total Protein 5.3 L D Albumin 1.9 L 03/22/18 03/22/18 03/22/18 08:22 09:05 09:58 Sodium Potassium Chloride Carbon Dioxide Anion Gap BUN Creatinine Estimated GFR POC Glucose 151 H 160 H 156 H Random Glucose Calcium Prot Corrected Calcium Phosphorus Magnesium Total Bilirubin AST ALT Alkaline Phosphatase Total Protein Albumin 03/22/18 03/22/18 03/22/18 10:59 12:00 12:09 Sodium Potassium Chloride Carbon Dioxide Anion Gap BUN Creatinine Estimated GFR POC Glucose 156 H 144 H Random Glucose Calcium Prot Corrected Calcium Phosphorus Magnesium 2.5 D Total Bilirubin AST ALT Alkaline Phosphatase Total Protein Albumin 03/22/18 03/22/18 03/22/18 12:53 13:59 14:58 Sodium Potassium Chloride Carbon Dioxide Anion Gap BUN Creatinine Estimated GFR POC Glucose 163 H 125 H 129 H Random Glucose Calcium Prot Corrected Calcium Phosphorus Magnesium Total Bilirubin AST ALT Alkaline Phosphatase Total Protein Albumin 03/22/18 03/22/18 03/22/18 16:23 16:58 17:56 Sodium Potassium Chloride Carbon Dioxide Anion Gap BUN Creatinine Estimated GFR POC Glucose 129 H 107 123 H Random Glucose Calcium Prot Corrected Calcium Phosphorus Magnesium Total Bilirubin AST ALT Alkaline Phosphatase Total Protein Albumin 03/22/18 03/22/18 03/22/18 19:00 20:17 21:28 Sodium Potassium Chloride Carbon Dioxide Anion Gap BUN Creatinine Estimated GFR POC Glucose 163 H 161 H 163 H Random Glucose Calcium Prot Corrected Calcium Phosphorus Magnesium Total Bilirubin AST ALT Alkaline Phosphatase Total Protein Albumin 03/22/18 03/22/18 03/23/18 21:57 23:02 00:03 Sodium Potassium Chloride Carbon Dioxide Anion Gap BUN Creatinine Estimated GFR POC Glucose 179 H 169 H 151 H Random Glucose Calcium Prot Corrected Calcium Phosphorus Magnesium Total Bilirubin AST ALT Alkaline Phosphatase Total Protein Albumin 03/23/18 03/23/18 03/23/18 01:09 03:05 04:04 Sodium Potassium Chloride Carbon Dioxide Anion Gap BUN Creatinine Estimated GFR POC Glucose 152 H 125 H 112 H Random Glucose Calcium Prot Corrected Calcium Phosphorus Magnesium Total Bilirubin AST ALT Alkaline Phosphatase Total Protein Albumin 03/23/18 03/23/18 03/23/18 04:25 05:10 06:03 Sodium 147 H Potassium 4.2 D Chloride 108 H Carbon Dioxide 32.6 H Anion Gap 6 BUN 48 H Creatinine 1.93 H Estimated GFR 33 L POC Glucose 156 H 151 H Random Glucose 122 H Calcium 7.2 L* Prot Corrected Calcium 8.2 L Phosphorus 4.0 Magnesium 2.1 Total Bilirubin 0.8 AST 20 ALT 25 Alkaline Phosphatase 87 Total Protein 5.2 L Albumin 2.0 L 03/23/18 03/23/18 03/23/18 07:16 08:02 09:11 Sodium Potassium Chloride Carbon Dioxide Anion Gap BUN Creatinine Estimated GFR POC Glucose 149 H 164 H 156 H Random Glucose Calcium Prot Corrected Calcium Phosphorus Magnesium Total Bilirubin AST ALT Alkaline Phosphatase Total Protein Albumin 03/23/18 03/23/18 03/23/18 10:04 11:10 11:16 Sodium Potassium Chloride Carbon Dioxide Anion Gap BUN Creatinine Estimated GFR POC Glucose 160 H 58 L 144 H Random Glucose Calcium Prot Corrected Calcium Phosphorus Magnesium Total Bilirubin AST ALT Alkaline Phosphatase Total Protein Albumin Imaging: ITS Impressions Chest CT 03/18/18 18:46 CONCLUSION: 1. Bilateral multi segmental consolidation in the mid and lower lungs and small bilateral pleural effusions. 2. Several enlarged middle mediastinal lymph nodes. Head CT 03/18/18 18:46 CONCLUSION: 1. Solitary 3 mm hyperdensity in the central [place] of uncertain significance. Differential considerations include a punctate calcification and acute hemorrhage. 2. No acute findings in the supratentorial brain. Head MRI 03/19/18 00:00 CONCLUSION: 1. No evidence of brainstem hemorrhage. 2. Small foci of encephalomalacia in the left occipital lobe and right cerebellum 3. No evidence of acute infarct, hemorrhage, mass or edema. 4. No evidence of enhancing intra-axial or extra-axial lesions. Venous Doppler Study 03/19/18 00:00 CONCLUSION: The study is negative for bilateral lower extremity deep venous thrombosis. Abdomen X-Ray 03/22/18 00:00 CONCLUSION: Mild ileus. NG tip in stomach. Foot X-Ray 03/22/18 00:00 CONCLUSION: No acute bony destructive change. Previous amputations as above. Fairly marked soft tissue swelling of the forefoot. Chest X-Ray 03/23/18 06:00 CONCLUSION: Worsening patchy airspace disease, particularly in the left hemithorax. Life support tubes are stable in position Physical Exam: no acute distress, morbidly obese sedated paralysed on rotapnoen bed, supine Head: Present: normocephalic, atraumatic, prominent facial swelling Eye: Present: periorbital swelling no scleral icerus ENT: Present: mucous membranes moist, oropharynx clear NECK: trachea midline LUNGs: patient mechanically ventilated, decreased breath sounds, rhonchi Cardiovascular : RRR, S1, S2 no murmurs, rubs , gallops well perused perify Abdominal : soft, distended no reaction to palpation, no audfible bowel sounds no palpable organomegaly small amount of stool in rectal collection system : hernandez in place with small amount of clear yellow urine Extremities: edema L foot edematous, s/p well hhealed mutiple toes and hallux amputations + draining foul smelluing pus, small amount Skin : intact, dry, no rash Neurological : heavily sedated e Psychiatric : unable to assess Assessment and Plan - Plan sp cardiac arrest Anaerobic sepsis; veillonella ? source : GI vs osteo Acute VDRF PNA, gram negative - cont zosyn - when feasible CT A/P - MRI when feasible - fusputum clx dw Dr Thai angel RN @ b/s
[2018-03-23 14:20] LABS: Calcium 7.2 mg/dL (8.5-10.1); Carbon Dioxide 31.9 meq/L (21.0-32.0); Potassium 4.4 meq/L (3.5-5.1)
[2018-03-23 14:33] LABS: Total Protein 5.6 g/dL (6.4-8.2)
[2018-03-23] MEDS: Insulin Regular (For Infusion) 100 UNIT in Sodium Chlor 0.9% Inj 99 ML IV.CONT PRN (18:28)
[2018-03-23] MEDS ORDERED: Diatrizoate Meglum/Diatrizoate Sod Liq 9 ML UDC PO ONE (21:00)
[2018-03-23] MEDS: Azithromycin Inj 500 MG in Sodium Chlor 0.9% Inj 250 ML IV.SIG SCH (21:06)
[2018-03-23] MEDS ORDERED: Albumin Human 5% Inj 500 ML IV.SIG ONE (21:35)
--- NOTE | 2018-03-23 21:38 | P.PNCC ---
Subjective Subjective Remarks/Hospital Course: 52-year-old female with past medical history of diabetes mellitus, hypertension, hyperlipidemia, atrial fibrillation on chronic anticoagulation with warfarin, chronic diastolic heart failure, asthma, WISAM, peripheral vascular disease, super morbid obesity. She has been at [facility] since 03/02/18. Abeba JACOBO was called due to respiratory distress. When they arrived as she was found to be in respiratory distress with sats in the 70s. She was communicating with them and reportedly said "leave me alone". She then had PEA arrest. She received CPR reportedly 10-15 minutes and received 2 doses of epinephrine. LMA was placed by EVAC. LMA was removed and she was intubated by Dr. Daly after receiving etomidate 20 mg IV and succinylcholine. She has demonstrated purposeful movements post intubation, and is now on a propofol drip. She was [place] [facility] [place] due to hypoglycemia, fall after isolated episode of diarrhea, hypoxia requiring HFNC. She has chronic interstitial changes on CXR. Reviewed records from [facility] which indicate she completed a 7 day course of Levaquin and has been on a prednisone taper. Current CXR shows bibasilar opacities. WBC is 16 ( previously 7.9). She has acute hypercapneic and hypoxemic respiratory failure. 03/19: Afebrile. Remains on 100% FiO2 PEEP of 12. Central has been placed for access due to multiple drips. Plan MRI brain today if respiratory status improves. Does not tolerate lying flat. Likely will need epoprostenol and rotaprone 03/20: Started on epoprostenol and currently on a rotor from bed. Currently on cisatracurium drip at 1 mcg/kg/min. Diuresing well. 03/21: Weaning down epoprostenol. Remains on cisatracurium drip at 6 mcg/kg/ min. Diuresis 6 L. Saturation was improved FiO2 down to 45%. 03/22: Hypothermic overnight. Currently euthermic. Excellent response to bumetanide drip. FiO2 down to 40%. PEEP down to 8. Possible discontinue paralytic agent today. SUBJECTIVE: 03/23: Resting comfortable in bed in no acute distress. Afebrile. Desaturated so placed back on rotor prone bed. Creatinine slowly increasing. Objective Vital Signs / I&O: Vital Signs 03/22/18 22:00 03/22/18 22:26 03/22/18 23:00 Temperature 98.2 F 97.3 F L Pulse Rate 74 71 68 Respiratory Rate 14 14 16 Blood Pressure 133/64 110/49 L 140/64 Pulse Oximetry 99 98 96 03/23/18 00:00 03/23/18 00:19 03/23/18 00:47 Temperature 98.1 F Pulse Rate 66 66 Respiratory Rate 17 17 15 Blood Pressure 147/68 H Pulse Oximetry 96 95 03/23/18 01:00 03/23/18 02:00 03/23/18 03:00 Temperature Pulse Rate 66 67 67 Respiratory Rate 0 L 19 10 L Blood Pressure 148/65 H 133/63 122/58 L Pulse Oximetry 95 97 96 03/23/18 03:55 03/23/18 04:00 03/23/18 04:40 Temperature 98.2 F Pulse Rate 67 67 67 Respiratory Rate 17 16 Blood Pressure 129/49 L 125/57 L Pulse Oximetry 96 97 03/23/18 05:00 03/23/18 06:00 03/23/18 07:00 Temperature Pulse Rate 66 67 66 Respiratory Rate 14 17 14 Blood Pressure 137/61 144/64 H 153/66 H Pulse Oximetry 96 94 L 96 03/23/18 07:45 03/23/18 08:00 03/23/18 09:00 Temperature 97.5 F L 97.2 F L Pulse Rate 68 66 65 Respiratory Rate 14 18 13 Blood Pressure 143/56 H 130/52 L Pulse Oximetry 96 98 93 L 03/23/18 10:00 03/23/18 11:00 03/23/18 11:01 Temperature 97.9 F 97.9 F Pulse Rate 65 75 73 Respiratory Rate 14 13 19 Blood Pressure 141/65 H 172/77 H Pulse Oximetry 93 L 94 L 93 L 03/23/18 11:46 03/23/18 12:00 03/23/18 12:01 Temperature Pulse Rate 66 67 Respiratory Rate 18 9 L 8 L Blood Pressure 117/48 L 115/56 L Pulse Oximetry 97 96 96 03/23/18 13:00 03/23/18 14:00 03/23/18 15:00 Temperature 98.4 F Pulse Rate 68 61 57 L Respiratory Rate 13 18 18 Blood Pressure 144/67 H 117/54 L 149/68 H Pulse Oximetry 97 97 94 L 03/23/18 15:01 03/23/18 16:00 03/23/18 18:00 Temperature 98.8 F Pulse Rate 56 L 62 73 Respiratory Rate 18 18 Blood Pressure 132/60 Pulse Oximetry 94 L 03/23/18 20:13 Temperature Pulse Rate 71 Respiratory Rate 18 Blood Pressure Pulse Oximetry Intake & Output 03/23/18 03/23/18 03/24/18 06:59 18:59 06:59 Intake Total 3496 / 3496 3160 / 3160 100 / 100 Output Total 1750 / 1750 1200 / 1200 Balance 1746 / 1746 1960 / 1960 100 / 100 Weight 127.7 kg Intake: IV 2950 / 2950 2900 / 2900 100 / 100 Nimbex Inj 100 MG In NS Inj 240 1500 / 1500 500 / 500 ML @ 1 MCG/KG/MIN 20.1 mls/hr IV.CONT TITRATE PRN Rx#: [id number] NovoLIN R (IV Infusion) 100 100 / 100 UNIT In NS Inj 99 ML @ Per Protocol IV.CONT TITRATE PRN Rx #:[id number] Versed Inj 50 mg In 50 ml @ 2 50 / 50 150 / 150 50 / 50 MG/HR 2 mls/hr IV.CONT TITRATE PRN Rx#:[id number] Sodium Bicarbonate 8.4% Inj 150 1000 / 1000 MEQ In Sterile Water for Inj 850 ML @ 50 mls/hr IV.CONT . Q20H JACKI Rx#:[id number] Alburx 5% Inj 500 ML @ 250 mls/ 500 / 500 500 / 500 hr IV.SIG Q12H JACKI Rx#:[id number] Azithromycin Inj 500 MG In NS 250 / 250 Inj 250 ML @ 250 mls/hr IV.SIG Q24H JACKI Rx#:[id number] Zosyn 3.375 GM Premix 50 ML @ 100 / 100 50 / 50 50 / 50 100 mls/hr IV.SIG Q6H JACKI Rx#: [id number] fentaNYL 10 mcg/mL Premix Drip 250 / 250 500 / 500 2,500 mcg In 250 ml @ 50 MCG/HR 5 mls/hr IV.SIG TITRATE PRN Rx #:[id number] Flolan (30,000 ng/mL) Neb 12.5 200 / 200 100 / 100 ML In NS Inj 87.5 ML @ 8 mls/hr NEB Q8H [facility] Rx#:[id number] Oral 0 / 0 0 / 0 Tube Feeding 346 / 346 60 / 60 Water Bolus Amount 200 / 200 200 / 200 Intake (Blood Product) Amt 0 / 0 Rbc As-3 Leukoreduced Unit 0 / 0 [id number] Output: Stool 0 / 0 0 / 0 Urine Amount (Catheter) 1750 / 1750 1200 / 1200 Indwelling Urethral Catheter 1750 / 1750 1200 / 1200 Other: Date of Last Bowel Movement 03/22/18 03/22/18 # Bowel Movements 0 Result Diagrams: 03/23/18 04:25 03/23/18 13:30 Other Results: Microbiology 03/22/18 22:00 Sputum - Endotracheal Gram Stain - Final 03/22/18 22:00 Sputum - Endotracheal Sputum Culture - Preliminary gram negative rods 03/20/18 09:40 Blood - Line Aerobic Blood Culture - Preliminary No growth in 3 days 03/20/18 09:40 Blood - Line Anaerobic Blood Culture - Preliminary No growth in 3 days 03/18/18 18:15 Blood - Peripheral Aerobic Blood Culture - Final No growth in 5 days 03/18/18 18:15 Blood - Peripheral Anaerobic Blood Culture - Final Veillonella species 03/18/18 18:00 Blood - Peripheral Aerobic Blood Culture - Final No growth in 5 days 03/18/18 18:00 Blood - Peripheral Anaerobic Blood Culture - Final Veillonella species Imaging: Chest X-Ray 03/18/18 17:52 CONCLUSION: 1. ET tube in good position. 2. Increasing patchy areas of consolidation in both lower lungs. Chest CT 03/18/18 18:46 CONCLUSION: 1. Bilateral multi segmental consolidation in the mid and lower lungs and small bilateral pleural effusions. 2. Several enlarged middle mediastinal lymph nodes. Head CT 03/18/18 18:46 CONCLUSION: 1. Solitary 3 mm hyperdensity in the central [place] of uncertain significance. Differential considerations include a punctate calcification and acute hemorrhage. 2. No acute findings in the supratentorial brain. Head MRI 03/19/18 00:00 CONCLUSION: 1. No evidence of brainstem hemorrhage. 2. Small foci of encephalomalacia in the left occipital lobe and right cerebellum 3. No evidence of acute infarct, hemorrhage, mass or edema. 4. No evidence of enhancing intra-axial or extra-axial lesions. Venous Doppler Study 03/19/18 00:00 CONCLUSION: The study is negative for bilateral upper extremity deep venous thrombosis. Venous Doppler Study 03/19/18 00:00 CONCLUSION: The study is negative for bilateral lower extremity deep venous thrombosis. Chest X-Ray 03/19/18 07:33 CONCLUSION: 1. Lines and tubes as detailed above without pneumothorax. 2. Radiographic pattern most consistent with pulmonary edema. This is unchanged. Chest X-Ray 03/20/18 06:00 CONCLUSION: No significant change. Chest X-Ray 03/21/18 05:14 CONCLUSION: Decreased bilateral pulmonary opacity suggesting decreased pulmonary edema. Abdomen X-Ray 03/22/18 00:00 CONCLUSION: Mild ileus. NG tip in stomach. Foot X-Ray 03/22/18 00:00 CONCLUSION: No acute bony destructive change. Previous amputations as above. Fairly marked soft tissue swelling of the forefoot. Chest X-Ray 03/22/18 06:00 CONCLUSION: Increased left mid lung pulmonary consolidation versus atelectasis. Chest X-Ray 03/23/18 06:00 CONCLUSION: Worsening patchy airspace disease, particularly in the left hemithorax. Life support tubes are stable in position Objective Remarks: GENERAL: 52-year-old female patient with an elevated BMI who is resting in rotoprone bed orotracheally intubated. SKIN: Intertriginous lesion with erythema and satellite lesions under left breast. Skin breakdown over medial aspect of left ankle. Skin abrasion from bed/roto-prone over bilateral cheeks. HEAD: Atraumatic. Normocephalic. EYES: Right pupil and left for both around 3 mm and sluggishly reactive to 2 mm. No scleral icterus. No injection or drainage. ENT: No nasal bleeding or discharge. Mucous membranes pink and moist. Tongue and lip/oral mucosa is swollen and edematous. NECK: Trachea midline. No JVD. CARDIOVASCULAR: RRR. S1, S2 no S4. Without murmur RESPIRATORY: Diminished bibasilar with no appreciable rales. Scattered rhonchi bilaterally. GASTROINTESTINAL: Abdomen obese, soft, non-tender, nondistended. Bowel sounds present. OG in place with some brown output. 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 Legs revealed 2+ pitting edema bilateral lower extremities. NEUROLOGICAL: Cranial nerves II through XII grossly intact with exception of pupils as above. Currently on cisatracurium drip and paralyzed [id number] 2 out of 4 Assessment and Plan - Assessment and Plan Plan: NEURO/PSYCH: Acute encephalopathy - secondary to hypercapnia, improving. Abnormal brain CT with 3 mm hyperdensity in central [place] Major depressive disorder NOS Chronic opioid use Encephalomalacia right cerebellum/left occipital lobe Currently on midazolam drip at 10 mg an hour and fentanyl drip 250 mcg an hour for sedation. Propofol side effect sinus bradycardia. Will discontinue On cisatracurium drip at 9 mcg/kg/min Target [id number] [address] brain - . Solitary 3 mm hyperdensity in the central [place] of uncertain significance. Differential considerations include a punctate calcification and acute hemorrhage MRI brain left occipital lobe and right cerebellum. She does not meet criteria for induced therapeutic hypothermia because she is following commands post CPR. Holding oxycodone 10 mg every 6 hours Holding nabumetone 500 mg twice daily, methocarbamol 750 mg 4 times daily and oxycodone 10 mg every 6 hours Holding gabapentin 200 mg 3 times daily Holding tizanidine 4 mg 3 times daily RESP: Acute hypercapnic and hypoxemic respiratory failure Acute asthma exacerbation Healthcare associated pneumonia WISAM/OHS Prior tobacco abuse Bilateral pleural effusions right 2.2 cm. Left 1.3 cm LMA was placed in the field by EVAC. Intubated in ED 03/18 On PRVC 14/550/09/05/39 Ventilator bundle On albuterol/ipratropium aerosols every 4 hours with albuterol aerosols every 2 hours as needed for dyspnea On aerosol epoprostenol at 50,000 ng/kg/min Spontaneous breathing trials when clinically indicated. Not today. CT thorax revealed right middle lobe/lower lobe consolidation left lower lobe consolidation. Right pleural effusion 2.2 cm. Left pleural effusion 1.3 cm Methylprednisolone succinate 40 mg IV every 8 hours. Antibiotics as per below. Serial ABG/chest x-ray in a.m. 03/24 CV: Essential HTN Hyperlipidemia Chronic diastolic heart failure Paroxysmal atrial fibrillation on chronic anti-coagulation with warfarin Peripheral vascular disease/peripheral arterial disease Elevated troponin Holding home medication of clonidine 0.1 mg every 6 hours nifedipine 90 mg daily. Continue carvedilol 6.25 mg twice daily with holding parameters for bradycardia We will start on clevidipine gtt to keep systolic blood pressure less than 140 with possible Holding furosemide 20 mg p.o. daily Bumetanide drip at 0.5 mg discontinued 03/22. Acetazolamide will be discontinued as well. Started ethacrynic acid 20 mg daily 2D echo 02/24/18ejection fraction 50%. Wall thickness upper limits of normal. Trace MR. Lactic acid cleared Continue atorvastatin 40 mg daily Doppler bilateral upper and lower extremities with subtherapeutic INR Heparin drip discontinued secondary to elevated INR GI: History of GERD Chronic pancreatitis insufficiency Hypoalbuminemia N.p.o. status -start vital high-protein at 30 cc an hour/trickle feeds. Noted milk allergy. Heartburn Famotidine for GI prophylaxis Docusate sodium/senna 1 tablet twice daily for bowel regimen Resume Creon home medication 3 times daily FEN/RENAL: Chronic kidney disease stage III Hypernatremia Hypokalemia [place] catheter was placed in the emergency department. Monitor intake and output. Monitor electrolytes and replace as indicated Free water 100 every 4 hours. Creatinine is slowly rising. Recheck in a ID: Acute healthcare associated pneumonia Veillonella species bacteremia Currently piperacillin/tazobactam day #2 Discontinue 03/22 cefepime 2 g IV every 12 hours, azithromycin 500 mg daily and vancomycin Consultation to ID workup Veillonella species bacteremia Blood cultures 2 03/18 Veillonella spp. Repeat 03/20 no growth today Sputum, gram-negative rhona Pneumococcal urinary antigens, influenza a and B and chlamydia and mycoplasma all pending/negative HEME: Leukocytosis Chronic anemia/normocytic Chronic anti-coagulation with warfarin 4 mg daily. INR target is 2-3. She is currently therapeutic. Recently INR greater than 15 received vitamin K Monitor CBC daily. Follow trends No indication for transfusion of blood products at this time. Discontinue heparin drip 03/22. Recheck INR in a.m. 03/24 ENDO: Diabetes mellitus History of gout Currently on insulin drip at 3 units an hour to maintain euglycemia. Holding glipizide 10 mg twice daily and insulin glargine/home medication Holding allopurinol 300 mg daily/home medication MSK: Elevated BMI Osteoporosis/osteoarthritis Weight loss encouraged PT evaluate and treat Okay to hold cholecalciferol 5000 units daily PROPH: SCDs for DVT prophylaxis. Heparin drip ACCESS: Right IJ CVL placed 03/19. Right axillary arterial line placed 03/19. Critical care time 35 minutes. Discussed with son at bedside. Care plan discussed and all questions answered.
[2018-03-24] MEDS: fentaNYL 10 mcg/mL Premix Drip 2,500 MCG/250 ML BAG IV.SIG PRN ×4 (00:40→20:03)
[2018-03-24] MEDS: Midazolam 50 MG/50 ML Inj 50 MG/50 ML BAG IV.CONT PRN ×5 (01:08→22:46)
[2018-03-24] MEDS: hydrALAZINE HCl Inj 20 MG/ML Vial IV.PUSH PRN ×2 (01:58→06:10)
[2018-03-24] MEDS: Hypromellose 0.3% Opth Gel 10 GM Bottle EACH EYE SCH ×3 (02:07→18:51)
[2018-03-24] MEDS: Cisatracurium Inj 100 MG in Sodium Chlor 0.9% Inj 240 ML IV.CONT PRN ×3 (02:16→19:01)
[2018-03-24] MEDS: Oral Hygiene Kit OROPHARYNG SCH ×3 (03:13→18:47)
[2018-03-24 03:53] LABS: Baso % (Auto) 0.2 % (0.0-2.0); Hematocrit 23.8 % (35.0-46.0); Hemoglobin 7.6 gm/dL (11.6-15.3); Lymph # (Auto) 0.7 th/mm3 (1.0-4.8); Lymph % (Auto) 6.6 % (9.0-44.0); Mean Corpuscular HGB Conc 32.1 % (32.0-36.0); Mean Corpuscular Hemoglobin 23.5 pg (27.0-34.0); Mean Corpuscular Volume 73.2 fL (80.0-100.0); Mean Platelet Volume 8.8 fL (7.0-11.0); Mono # (Auto) 0.4 th/mm3 (0.0-0.9); Mono % (Auto) 3.7 % (0.0-8.0); Neut # (Auto) 9.7 th/mm3 (1.8-7.7); Neut % (Auto) 89.5 % (16.0-70.0); Platelet Count 152 th/mm3 (150-450); Red Blood Count 3.25 mil/mm3 (4.00-5.30); Red Cell Distribution Width 23.5 % (11.6-17.2); White Blood Count 10.8 th/mm3 (4.0-11.0)
[2018-03-24 04:05] LABS: Activated Partial Thrombo Time 38.6 sec (24.3-30.1); INR 1.7 Ratio; Prothrombin Time 16.7 sec (9.8-11.6)
[2018-03-24] MEDS: Piperacil/Tazo 3.375 GM Premix 50 ML IV.SIG SCH (04:13)
[2018-03-24] MEDS: Albumin Human 5% Inj 500 ML IV.SIG SCH (04:13)
[2018-03-24 04:17] LABS: Alanine Aminotransferase 25 U/L (10-53); Albumin 2.9 g/dL (3.4-5.0); Alkaline Phosphatase 101 U/L (45-117); Anion Gap 10 meq/L (5-15); Aspartate Aminotransferase 19 U/L (15-37); Blood Urea Nitrogen 54 mg/dL (7-18); Calcium 7.7 mg/dL (8.5-10.1); Chloride 106 meq/L (98-107); Glomerular Filtration Rate 30 mL/min (>89); Glucose,Random 123 mg/dL (74-106); Phosphorus 4.5 mg/dL (2.5-4.9); Potassium 3.7 meq/L (3.5-5.1); Sodium 146 meq/L (136-145); Total Protein 6.1 g/dL (6.4-8.2)
[2018-03-24] MEDS: MethylPREDNISolone Sod Succinate Inj 40 MG/ML Vial IV.PUSH SCH ×3 (05:14→21:55)
--- NOTE | 2018-03-24 05:28 | XR ---
EXAM DATE: 03/24/2018 5:24 AM EDT AGE/SEX: 52 years / Female INDICATIONS: Shortness of breath. CLINICAL DATA: This is the patient's subsequent encounter. Patient reports that signs and symptoms h ave been present for 1 week and indicates a pain score of Nonresponsive. MEDICAL/SURGICAL HISTORY: . Hypertension. Diabetes. Chronic obstructive pulmonary disease. PVD A-Fib CHF GERD DVT . Tonsillectomy. Tubal ligation. Mastectomy COMPARISON: [facility] [place], CHEST 1V SINGLE AP, 03/23/2018. . FINDINGS: A single AP view of the chest demonstrates worsening bilateral airspace disease, particularly in the right upper lobe. Heart size remains prominent. Life support tubes are stable in position including t he endotracheal tube, nasogastric tube and right IJ central venous catheter CONCLUSION: Worsening bilateral pulmonary infiltrates, particularly in the right upper lobe Electronically signed by: Mark Zuniga MD 03/24/2018 5:27 AM EDT
[2018-03-24 05:35] LABS: ABG Base Excess 1.8 mmol/L (-2-2); ABG PCO2 42 mmHg (38-42); ABG PO2 55 mmHG (61-120)
[2018-03-24] MEDS: Sodium Bicarbonate 8.4% Inj 150 MEQ in Water for Inj, Sterile 850 ML IV.CONT SCH (06:01)
[2018-03-24] MEDS: Chlorhexidine 0.12% Oral Kit 15 ML UDC OROPHARYNG SCH ×2 (08:00→20:32)
[2018-03-24 08:11] LABS: Acanthocytes Occ; Lymphocytes 5 % (9-44); Monocytes 2 % (0-8); Ovalocytes 1+; Platelet Estimate Normal (Normal); Platelet Morphology Normal (Normal); Tallied Nucleated RBC 4 (0-0)
[2018-03-24] MEDS: Carvedilol 6.25 MG Tablet PO SCH ×2 (09:00→20:32)
[2018-03-24] MEDS: Senna/Docusate Sodium 8.6/50 MG Tablet PO SCH ×2 (09:00→20:30)
[2018-03-24] MEDS ORDERED: Meropenem Inj 1,000 MG in Sodium Chlor 0.9% Inj 100 ML IV.SIG SCH (11:00)
[2018-03-24] MEDS ORDERED: CISATRACURIUM 10 MG/5 ML IV.PUSH ONE (12:46)
[2018-03-24] MEDS: Lipase/Protease/Amylase 24/76/120 DR Capsule PO SCH ×2 (13:00→15:14)
--- NOTE | 2018-03-24 13:15 | P.PNID ---
Subjective Remarks: remains critical worse today now on 60% FiO2 remains on Rotaprone bed her sputum grew out MDRO ESBL/? KPC Kleb large amount of secretions off pressors + liquid stool worsening renal fnx Antibiotics: vanco zosyn Allergies/Adverse Reactions: Allergies ibuprofen Allergy (Severe, Verified 03/18/18 17:58) MESSES WITH KIDNEYS Sulfa (Sulfonamide Antibiotics) Allergy (Severe, Verified 03/18/18 17:58) HIVES egg Allergy (Intermediate, Verified 03/18/18 17:58) Very Upset Stomach milk Allergy (Unknown, Verified 03/18/18 17:58) Heartburn Objective Vital Signs 03/23/18 14:00 03/23/18 15:00 03/23/18 15:01 Temperature Pulse Rate 61 57 L 56 L Respiratory Rate 18 18 18 Blood Pressure 117/54 L 149/68 H Pulse Oximetry 97 94 L 03/23/18 16:00 03/23/18 17:00 03/23/18 18:00 Temperature 98.8 F Pulse Rate 62 65 67 Respiratory Rate 18 18 34 H Blood Pressure 132/60 161/72 H Pulse Oximetry 94 L 93 L 89 L 03/23/18 18:01 03/23/18 19:00 03/23/18 20:00 Temperature 98.2 F Pulse Rate 68 73 66 Respiratory Rate 23 0 L 0 L Blood Pressure 131/61 161/71 H 177/70 H Pulse Oximetry 90 L 95 94 L 03/23/18 20:13 03/23/18 21:00 03/23/18 21:01 Temperature Pulse Rate 71 60 65 Respiratory Rate 18 0 L 0 L Blood Pressure 170/73 H Pulse Oximetry 94 L 92 L 03/23/18 22:00 03/23/18 22:09 03/23/18 23:00 Temperature Pulse Rate 59 L 54 L Respiratory Rate 0 L 19 0 L Blood Pressure 160/70 H 175/72 H Pulse Oximetry 96 94 L 94 L 03/23/18 23:28 03/24/18 00:00 03/24/18 00:25 Temperature 98 F Pulse Rate 64 67 70 Respiratory Rate 18 0 L 19 Blood Pressure 195/80 H 156/67 H Pulse Oximetry 94 L 91 L 03/24/18 01:00 03/24/18 02:00 03/24/18 03:00 Temperature Pulse Rate 69 67 74 Respiratory Rate 14 18 18 Blood Pressure 181/84 H 175/78 H 152/67 H Pulse Oximetry 92 L 91 L 93 L 03/24/18 03:29 03/24/18 04:00 03/24/18 04:25 Temperature 97.8 F Pulse Rate 75 71 Respiratory Rate 18 18 18 Blood Pressure 161/55 H Pulse Oximetry 97 92 L 03/24/18 05:00 03/24/18 05:05 03/24/18 06:00 Temperature Pulse Rate 77 74 Respiratory Rate 18 18 Blood Pressure 185/77 H 170/71 H Pulse Oximetry 96 92 L 94 L 03/24/18 08:34 03/24/18 12:02 Temperature Pulse Rate 79 63 Respiratory Rate 18 18 Blood Pressure Pulse Oximetry 92 L 99 Intake & Output 03/23/18 03/24/18 03/24/18 18:59 06:59 18:59 Intake Total 3160 / 3160 3885 / 3885 Output Total 1200 / 1200 3075 / 3075 Balance 1960 / 1960 810 / 810 Weight 131 kg Intake: IV 2900 / 2900 3585 / 3585 Nimbex Inj 100 MG In NS Inj 240 500 / 500 740 / 740 ML @ 1 MCG/KG/MIN 20.1 mls/hr IV.CONT TITRATE PRN Rx#: [id number] NovoLIN R (IV Infusion) 100 100 / 100 UNIT In NS Inj 99 ML @ Per Protocol IV.CONT TITRATE PRN Rx #:[id number] Versed Inj 50 mg In 50 ml @ 2 150 / 150 150 / 150 MG/HR 2 mls/hr IV.CONT TITRATE PRN Rx#:[id number] Sodium Bicarbonate 8.4% Inj 150 1000 / 1000 1000 / 1000 MEQ In Sterile Water for Inj 850 ML @ 50 mls/hr IV.CONT . Q20H [facility] Rx#:[id number] Alburx 5% Inj 500 ML @ 250 mls/ 500 / 500 1035 / 1035 hr IV.SIG Q12H [facility] Rx#:[id number] Azithromycin Inj 500 MG In NS 260 / 260 Inj 250 ML @ 250 mls/hr IV.SIG Q24H [facility] Rx#:[id number] Zosyn 3.375 GM Premix 50 ML @ 50 / 50 150 / 150 100 mls/hr IV.SIG Q6H [facility] Rx#: [id number] fentaNYL 10 mcg/mL Premix Drip 500 / 500 250 / 250 2,500 mcg In 250 ml @ 50 MCG/HR 5 mls/hr IV.SIG TITRATE PRN Rx #:[id number] Flolan (30,000 ng/mL) Neb 12.5 100 / 100 ML In NS Inj 87.5 ML @ 8 mls/hr NEB Q8H [facility] Rx#:[id number] Oral 0 / 0 Tube Feeding 60 / 60 Water Bolus Amount 200 / 200 Other 300 / 300 Output: Stool 0 / 0 650 / 650 Urine Amount (Catheter) 1200 / 1200 2425 / 2425 Indwelling Urethral Catheter 1200 / 1200 2425 / 2425 Other: Date of Last Bowel Movement 03/22/18 03/24/18 03/24/18 03/20/18 09:40 Blood - Line Aerobic Blood Culture - Preliminary No growth in 4 days 03/20/18 09:40 Blood - Line Anaerobic Blood Culture - Preliminary No growth in 4 days 03/22/18 22:00 Sputum - Endotracheal Gram Stain - Final 03/22/18 22:00 Sputum - Endotracheal Sputum Culture - Preliminary Klebsiella pneumoniae ESBL pos Multidrug Resistant 03/18/18 18:15 Blood - Peripheral Aerobic Blood Culture - Final No growth in 5 days 03/18/18 18:15 Blood - Peripheral Anaerobic Blood Culture - Final Veillonella species 03/18/18 18:00 Blood - Peripheral Aerobic Blood Culture - Final No growth in 5 days 03/18/18 18:00 Blood - Peripheral Anaerobic Blood Culture - Final Veillonella species Lab - Hematology Results 03/22/18 03/23/18 03/24/18 12:00 04:25 03:30 WBC 12.6 H D 10.8 RBC 3.25 L 3.25 L Hgb 7.5 L 7.6 L Hct 23.8 L 23.8 L MCV 73.4 L 73.2 L MCH 23.0 L 23.5 L MCHC 31.3 L 32.1 RDW 23.2 H 23.5 H Plt Count 164 152 MPV 9.0 8.8 Prelim Diff (Auto) Slide review pending Neut % (Auto) 92.2 H 89.5 H Lymph % (Auto) 3.4 L 6.6 L [place] % (Auto) 4.2 3.7 Eos % (Auto) 0.0 0.0 Baso % (Auto) 0.2 0.2 Neut # (Auto) 11.6 H 9.7 H Lymph # (Auto) 0.4 L 0.7 L [place] # (Auto) 0.5 0.4 Eos # (Auto) 0.0 0.0 Baso # (Auto) 0.0 0.0 WBC Differential Manual diff final . Manual diff final Seg Neuts % (Manual) 85 H 84 H Band Neuts % (Manual) 14 H 9 H Lymphocytes % (Manual) 5 L Monocytes % (Manual) 1 2 Abs Neuts (Manual) 7.7 10.0 H Nucleated RBCs/100 WBC 7 H 4 H Differential Comment Auto diff final . Dohle Bodies Present H Platelet Estimate Normal Normal Platelet Morphology Normal Normal Ovalocytes 1+ H 1+ H Acanthocytes (Spur) Occ H Occ H Lab - Chemistry Results 03/22/18 03/22/18 03/22/18 12:53 13:59 14:58 Sodium Potassium Chloride Carbon Dioxide Anion Gap BUN Creatinine Estimated GFR POC Glucose 163 H 125 H 129 H Random Glucose Calcium Prot Corrected Calcium Phosphorus Magnesium Total Bilirubin AST ALT Alkaline Phosphatase Total Protein Albumin 03/22/18 03/22/18 03/22/18 16:23 16:58 17:56 Sodium Potassium Chloride Carbon Dioxide Anion Gap BUN Creatinine Estimated GFR POC Glucose 129 H 107 123 H Random Glucose Calcium Prot Corrected Calcium Phosphorus Magnesium Total Bilirubin AST ALT Alkaline Phosphatase Total Protein Albumin 03/22/18 03/22/18 03/22/18 19:00 20:17 21:28 Sodium Potassium Chloride Carbon Dioxide Anion Gap BUN Creatinine Estimated GFR POC Glucose 163 H 161 H 163 H Random Glucose Calcium Prot Corrected Calcium Phosphorus Magnesium Total Bilirubin AST ALT Alkaline Phosphatase Total Protein Albumin 03/22/18 03/22/18 03/23/18 21:57 23:02 00:03 Sodium Potassium Chloride Carbon Dioxide Anion Gap BUN Creatinine Estimated GFR POC Glucose 179 H 169 H 151 H Random Glucose Calcium Prot Corrected Calcium Phosphorus Magnesium Total Bilirubin AST ALT Alkaline Phosphatase Total Protein Albumin 03/23/18 03/23/18 03/23/18 01:09 03:05 04:04 Sodium Potassium Chloride Carbon Dioxide Anion Gap BUN Creatinine Estimated GFR POC Glucose 152 H 125 H 112 H Random Glucose Calcium Prot Corrected Calcium Phosphorus Magnesium Total Bilirubin AST ALT Alkaline Phosphatase Total Protein Albumin 03/23/18 03/23/18 03/23/18 04:25 05:10 06:03 Sodium 147 H Potassium 4.2 D Chloride 108 H Carbon Dioxide 32.6 H Anion Gap 6 BUN 48 H Creatinine 1.93 H Estimated GFR 33 L POC Glucose 156 H 151 H Random Glucose 122 H Calcium 7.2 L* Prot Corrected Calcium 8.2 L Phosphorus 4.0 Magnesium 2.1 Total Bilirubin 0.8 AST 20 ALT 25 Alkaline Phosphatase 87 Total Protein 5.2 L Albumin 2.0 L 03/23/18 03/23/18 03/23/18 07:16 08:02 09:11 Sodium Potassium Chloride Carbon Dioxide Anion Gap BUN Creatinine Estimated GFR POC Glucose 149 H 164 H 156 H Random Glucose Calcium Prot Corrected Calcium Phosphorus Magnesium Total Bilirubin AST ALT Alkaline Phosphatase Total Protein Albumin 03/23/18 03/23/18 03/23/18 10:04 11:10 11:16 Sodium Potassium Chloride Carbon Dioxide Anion Gap BUN Creatinine Estimated GFR POC Glucose 160 H 58 L 144 H Random Glucose Calcium Prot Corrected Calcium Phosphorus Magnesium Total Bilirubin AST ALT Alkaline Phosphatase Total Protein Albumin 03/23/18 03/23/18 03/23/18 12:01 13:13 13:30 Sodium 146 H Potassium 4.4 Chloride 106 Carbon Dioxide 31.9 Anion Gap 8 BUN 54 H Creatinine 2.12 H Estimated GFR 29 L POC Glucose 168 H 144 H Random Glucose 136 H Calcium 7.2 L* Prot Corrected Calcium 8.0 L Phosphorus Magnesium Total Bilirubin AST ALT Alkaline Phosphatase Total Protein 5.6 L Albumin 03/23/18 03/23/18 03/23/18 13:30 14:08 15:20 Sodium Potassium Chloride Carbon Dioxide Anion Gap BUN Creatinine Cancelled Estimated GFR Cancelled POC Glucose 136 H 152 H Random Glucose Calcium Prot Corrected Calcium Phosphorus Magnesium Total Bilirubin AST ALT Alkaline Phosphatase Total Protein Albumin 03/23/18 03/23/18 03/23/18 16:19 16:59 18:21 Sodium Potassium Chloride Carbon Dioxide Anion Gap BUN Creatinine Estimated GFR POC Glucose 123 H 127 H 139 H Random Glucose Calcium Prot Corrected Calcium Phosphorus Magnesium Total Bilirubin AST ALT Alkaline Phosphatase Total Protein Albumin 03/23/18 03/23/18 03/23/18 19:28 20:25 21:24 Sodium Potassium Chloride Carbon Dioxide Anion Gap BUN Creatinine Estimated GFR POC Glucose 128 H 134 H 133 H Random Glucose Calcium Prot Corrected Calcium Phosphorus Magnesium Total Bilirubin AST ALT Alkaline Phosphatase Total Protein Albumin 03/23/18 03/23/18 03/24/18 22:12 23:02 00:00 Sodium Potassium Chloride Carbon Dioxide Anion Gap BUN Creatinine Estimated GFR POC Glucose 136 H 130 H 136 H Random Glucose Calcium Prot Corrected Calcium Phosphorus Magnesium Total Bilirubin AST ALT Alkaline Phosphatase Total Protein Albumin 03/24/18 03/24/18 03/24/18 01:02 01:56 03:02 Sodium Potassium Chloride Carbon Dioxide Anion Gap BUN Creatinine Estimated GFR POC Glucose 130 H 139 H 140 H Random Glucose Calcium Prot Corrected Calcium Phosphorus Magnesium Total Bilirubin AST ALT Alkaline Phosphatase Total Protein Albumin 03/24/18 03/24/18 03/24/18 03:30 03:59 05:08 Sodium 146 H Potassium 3.7 Chloride 106 Carbon Dioxide 30.0 Anion Gap 10 BUN 54 H Creatinine 2.10 H Estimated GFR 30 L POC Glucose 139 H 142 H Random Glucose 123 H Calcium 7.7 L Prot Corrected Calcium Phosphorus 4.5 Magnesium 2.0 Total Bilirubin 1.1 H AST 19 ALT 25 Alkaline Phosphatase 101 Total Protein 6.1 L Albumin 2.9 L D 03/24/18 03/24/18 03/24/18 06:04 06:55 08:29 Sodium Potassium Chloride Carbon Dioxide Anion Gap BUN Creatinine Estimated GFR POC Glucose 138 H 142 H 144 H Random Glucose Calcium Prot Corrected Calcium Phosphorus Magnesium Total Bilirubin AST ALT Alkaline Phosphatase Total Protein Albumin 03/24/18 10:45 Sodium Potassium Chloride Carbon Dioxide Anion Gap BUN Creatinine Estimated GFR POC Glucose 160 H Random Glucose Calcium Prot Corrected Calcium Phosphorus Magnesium Total Bilirubin AST ALT Alkaline Phosphatase Total Protein Albumin Imaging: ITS Impressions Chest CT 03/18/18 18:46 CONCLUSION: 1. Bilateral multi segmental consolidation in the mid and lower lungs and small bilateral pleural effusions. 2. Several enlarged middle mediastinal lymph nodes. Head CT 03/18/18 18:46 CONCLUSION: 1. Solitary 3 mm hyperdensity in the central [place] of uncertain significance. Differential considerations include a punctate calcification and acute hemorrhage. 2. No acute findings in the supratentorial brain. Head MRI 03/19/18 00:00 CONCLUSION: 1. No evidence of brainstem hemorrhage. 2. Small foci of encephalomalacia in the left occipital lobe and right cerebellum 3. No evidence of acute infarct, hemorrhage, mass or edema. 4. No evidence of enhancing intra-axial or extra-axial lesions. Venous Doppler Study 03/19/18 00:00 CONCLUSION: The study is negative for bilateral lower extremity deep venous thrombosis. Abdomen X-Ray 03/22/18 00:00 CONCLUSION: Mild ileus. NG tip in stomach. Foot X-Ray 03/22/18 00:00 CONCLUSION: No acute bony destructive change. Previous amputations as above. Fairly marked soft tissue swelling of the forefoot. Chest X-Ray 03/24/18 06:00 CONCLUSION: Worsening bilateral pulmonary infiltrates, particularly in the right upper lobe Physical Exam: no acute distress, morbidly obese sedated paralysed on rotapnoen bed, supine Head: Present: normocephalic, atraumatic, prominent facial swelling Eye: Present: marked periorbital swelling no scleral icerus ENT: Present: mucous membranes moist, oropharynx clear NECK: trachea midline LUNGs: patient mechanically ventilated, decreased breath sounds, rhonchi Cardiovascular : RRR, S1, S2 no murmurs, rubs , gallops well perused perify Abdominal : soft, markeldy distended no reaction to palpation, no audfible bowel sounds no palpable organomegaly small amount of stool in rectal collection system : hernandez in place with small amount of clear yellow urine Extremities: edema 4+, anasarca L foot edematous, s/p well hhealed mutiple toes and hallux amputations + draining foul smelluing pus, small amount Skin : intact, dry, no rash Neurological : heavily sedated paralysed e Psychiatric : unable to assess Assessment and Plan - Plan sp cardiac arrest Anaerobic sepsis; veillonella ? source : GI vs osteo Xrays negative, CT/MR not feasible 2/2 clincial cond'n Acute VDRF PNA, ESBL/ ? KPC Kleb YOU with worsening renal fnx - - when feasible CT A/P - MRI when feasible - dc zosyn. - dc azithromycin dc vancomycin - start Flagyl 500 q 6 for anaerobic sepsis - avycaz C.diff chk repeat creatinine - if improves will upp the dose micro to chk sens to zerbaxa, acvycaz and vabomere jeanne RN @ b/s jeanne microlab
[2018-03-24] MEDS ORDERED: Mag Sulf 1 gm/100 ml Premix 100 ML IV.SIG ONE (13:29)
[2018-03-24 14:10] LABS: ABG Base Excess 2.8 mmol/L (-2-2); ABG PCO2 51 mmHg (38-42); ABG PO2 66 mmHG (61-120)
[2018-03-24] MEDS ORDERED: Potassium Chloride Inj 30 MEQ in Sodium Chlor 0.9% Inj 100 ML IV.CONT ONE (15:00)
[2018-03-24 15:03] LABS: Calcium 8.3 mg/dL (8.5-10.1); Potassium 3.8 meq/L (3.5-5.1)
--- NOTE | 2018-03-24 15:05 | P.PNCC ---
Subjective Subjective Remarks/Hospital Course: 52-year-old female with past medical history of diabetes mellitus, hypertension, hyperlipidemia, atrial fibrillation on chronic anticoagulation with warfarin, chronic diastolic heart failure, asthma, WISAM, peripheral vascular disease, super morbid obesity. She has been at [facility] since 03/02/18. Abeba JACOBO was called due to respiratory distress. When they arrived as she was found to be in respiratory distress with sats in the 70s. She was communicating with them and reportedly said "leave me alone". She then had PEA arrest. She received CPR reportedly 10-15 minutes and received 2 doses of epinephrine. LMA was placed by EVAC. LMA was removed and she was intubated by Dr. Daly after receiving etomidate 20 mg IV and succinylcholine. She has demonstrated purposeful movements post intubation, and is now on a propofol drip. She was recently admitted to [facility] 02/24-03/02 due to hypoglycemia, fall after isolated episode of diarrhea, hypoxia requiring HFNC. She has chronic interstitial changes on CXR. Reviewed records from [facility] which indicate she completed a 7 day course of Levaquin and has been on a prednisone taper. Current CXR shows bibasilar opacities. WBC is 16 ( previously 7.9). She has acute hypercapneic and hypoxemic respiratory failure. 03/19: Afebrile. Remains on 100% FiO2 PEEP of 12. Central has been placed for access due to multiple drips. Plan MRI brain today if respiratory status improves. Does not tolerate lying flat. Likely will need epoprostenol and rotaprone 03/20: Started on epoprostenol and currently on a rotor from bed. Currently on cisatracurium drip at 1 mcg/kg/min. Diuresing well. 03/21: Weaning down epoprostenol. Remains on cisatracurium drip at 6 mcg/kg/ min. Diuresis 6 L. Saturation was improved FiO2 down to 45%. 03/22: Hypothermic overnight. Currently euthermic. Excellent response to bumetanide drip. FiO2 down to 40%. PEEP down to 8. Possible discontinue paralytic agent today. 03/23: Resting comfortable in bed in no acute distress. Afebrile. Desaturated so placed back on rotor prone bed. Creatinine slowly increasing. SUBJECTIVE: 03/24: Afebrile. Worsening chest x-ray it appears to be volume overloaded again. +10 L past 24 hours. Will restart on bumetanide drip. Plan for bronchoscopy today. Switch to ceftazidime/avibactam secondary to ESBL positive Klebsiella pneumonia Objective Vital Signs / I&O: Vital Signs 03/23/18 15:01 03/23/18 16:00 03/23/18 17:00 Temperature 98.8 F Pulse Rate 56 L 62 65 Respiratory Rate 18 18 18 Blood Pressure 132/60 161/72 H Pulse Oximetry 94 L 93 L 03/23/18 18:00 03/23/18 18:01 03/23/18 19:00 Temperature Pulse Rate 67 68 73 Respiratory Rate 34 H 23 0 L Blood Pressure 131/61 161/71 H Pulse Oximetry 89 L 90 L 95 03/23/18 20:00 03/23/18 20:13 03/23/18 21:00 Temperature 98.2 F Pulse Rate 66 71 60 Respiratory Rate 0 L 18 0 L Blood Pressure 177/70 H Pulse Oximetry 94 L 94 L 03/23/18 21:01 03/23/18 22:00 03/23/18 22:09 Temperature Pulse Rate 65 59 L Respiratory Rate 0 L 0 L 19 Blood Pressure 170/73 H 160/70 H Pulse Oximetry 92 L 96 94 L 03/23/18 23:00 03/23/18 23:28 03/24/18 00:00 Temperature 98 F Pulse Rate 54 L 64 67 Respiratory Rate 0 L 18 0 L Blood Pressure 175/72 H 195/80 H Pulse Oximetry 94 L 94 L 03/24/18 00:25 03/24/18 01:00 03/24/18 02:00 Temperature Pulse Rate 70 69 67 Respiratory Rate 19 14 18 Blood Pressure 156/67 H 181/84 H 175/78 H Pulse Oximetry 91 L 92 L 91 L 03/24/18 03:00 03/24/18 03:29 03/24/18 04:00 Temperature 97.8 F Pulse Rate 74 75 71 Respiratory Rate 18 18 18 Blood Pressure 152/67 H 161/55 H Pulse Oximetry 93 L 97 03/24/18 04:25 03/24/18 05:00 03/24/18 05:05 Temperature Pulse Rate 77 Respiratory Rate 18 18 Blood Pressure 185/77 H Pulse Oximetry 92 L 96 92 L 03/24/18 06:00 03/24/18 08:34 03/24/18 12:02 Temperature Pulse Rate 74 79 63 Respiratory Rate 18 18 18 Blood Pressure 170/71 H Pulse Oximetry 94 L 92 L 99 Intake & Output 03/23/18 03/24/18 03/24/18 18:59 06:59 18:59 Intake Total 3160 / 3160 3885 / 3885 Output Total 1200 / 1200 3075 / 3075 Balance 1960 / 1960 810 / 810 Weight 131 kg Intake: IV 2900 / 2900 3585 / 3585 Nimbex Inj 100 MG In NS Inj 240 500 / 500 740 / 740 ML @ 1 MCG/KG/MIN 20.1 mls/hr IV.CONT TITRATE PRN Rx#: [id number] NovoLIN R (IV Infusion) 100 100 / 100 UNIT In NS Inj 99 ML @ Per Protocol IV.CONT TITRATE PRN Rx #:[id number] Versed Inj 50 mg In 50 ml @ 2 150 / 150 150 / 150 MG/HR 2 mls/hr IV.CONT TITRATE PRN Rx#:[id number] Sodium Bicarbonate 8.4% Inj 150 1000 / 1000 1000 / 1000 MEQ In Sterile Water for Inj 850 ML @ 50 mls/hr IV.CONT . Q20H JACKI Rx#:[id number] Alburx 5% Inj 500 ML @ 250 mls/ 500 / 500 1035 / 1035 hr IV.SIG Q12H JACKI Rx#:[id number] Azithromycin Inj 500 MG In NS 260 / 260 Inj 250 ML @ 250 mls/hr IV.SIG Q24H JACKI Rx#:[id number] Zosyn 3.375 GM Premix 50 ML @ 50 / 50 150 / 150 100 mls/hr IV.SIG Q6H JACKI Rx#: [id number] fentaNYL 10 mcg/mL Premix Drip 500 / 500 250 / 250 2,500 mcg In 250 ml @ 50 MCG/HR 5 mls/hr IV.SIG TITRATE PRN Rx #:[id number] Flolan (30,000 ng/mL) Neb 12.5 100 / 100 ML In NS Inj 87.5 ML @ 8 mls/hr NEB Q8H JACKI Rx#:[id number] Oral 0 / 0 Tube Feeding 60 / 60 Water Bolus Amount 200 / 200 Other 300 / 300 Output: Stool 0 / 0 650 / 650 Urine Amount (Catheter) 1200 / 1200 2425 / 2425 Indwelling Urethral Catheter 1200 / 1200 2425 / 2425 Other: Date of Last Bowel Movement 03/22/18 03/24/18 03/24/18 Result Diagrams: 03/24/18 03:30 03/24/18 03:30 Other Results: Microbiology 03/22/18 22:00 Sputum - Endotracheal Gram Stain - Final 03/22/18 22:00 Sputum - Endotracheal Sputum Culture - Preliminary Klebsiella pneumoniae ESBL pos Multidrug Resistant Carba MEDICARE COORDINATOR: Positive 03/20/18 09:40 Blood - Line Aerobic Blood Culture - Preliminary No growth in 4 days 03/20/18 09:40 Blood - Line Anaerobic Blood Culture - Preliminary No growth in 4 days 03/18/18 18:15 Blood - Peripheral Aerobic Blood Culture - Final No growth in 5 days 03/18/18 18:15 Blood - Peripheral Anaerobic Blood Culture - Final Veillonella species 03/18/18 18:00 Blood - Peripheral Aerobic Blood Culture - Final No growth in 5 days 03/18/18 18:00 Blood - Peripheral Anaerobic Blood Culture - Final Veillonella species Imaging: Chest X-Ray 03/18/18 17:52 CONCLUSION: 1. ET tube in good position. 2. Increasing patchy areas of consolidation in both lower lungs. Chest CT 03/18/18 18:46 CONCLUSION: 1. Bilateral multi segmental consolidation in the mid and lower lungs and small bilateral pleural effusions. 2. Several enlarged middle mediastinal lymph nodes. Head CT 03/18/18 18:46 CONCLUSION: 1. Solitary 3 mm hyperdensity in the central am[place] of uncertain significance. Differential considerations include a punctate calcification and acute hemorrhage. 2. No acute findings in the supratentorial brain. Head MRI 03/19/18 00:00 CONCLUSION: 1. No evidence of brainstem hemorrhage. 2. Small foci of encephalomalacia in the left occipital lobe and right cerebellum 3. No evidence of acute infarct, hemorrhage, mass or edema. 4. No evidence of enhancing intra-axial or extra-axial lesions. Venous Doppler Study 03/19/18 00:00 CONCLUSION: The study is negative for bilateral upper extremity deep venous thrombosis. Venous Doppler Study 03/19/18 00:00 CONCLUSION: The study is negative for bilateral lower extremity deep venous thrombosis. Chest X-Ray 03/19/18 07:33 CONCLUSION: 1. Lines and tubes as detailed above without pneumothorax. 2. Radiographic pattern most consistent with pulmonary edema. This is unchanged. Chest X-Ray 03/20/18 06:00 CONCLUSION: No significant change. Chest X-Ray 03/21/18 05:14 CONCLUSION: Decreased bilateral pulmonary opacity suggesting decreased pulmonary edema. Abdomen X-Ray 03/22/18 00:00 CONCLUSION: Mild ileus. NG tip in stomach. Foot X-Ray 03/22/18 00:00 CONCLUSION: No acute bony destructive change. Previous amputations as above. Fairly marked soft tissue swelling of the forefoot. Chest X-Ray 03/22/18 06:00 CONCLUSION: Increased left mid lung pulmonary consolidation versus atelectasis. Chest X-Ray 03/23/18 06:00 CONCLUSION: Worsening patchy airspace disease, particularly in the left hemithorax. Life support tubes are stable in position Chest X-Ray 03/24/18 06:00 CONCLUSION: Worsening bilateral pulmonary infiltrates, particularly in the right upper lobe Objective Remarks: GENERAL: 52-year-old female patient with an elevated BMI who is resting in rotaprone bed orotracheally intubated. SKIN: Intertriginous lesion with erythema and satellite lesions under left breast. Skin breakdown over medial aspect of left ankle. Skin abrasion from bed/roto-prone over bilateral cheeks. HEAD: Atraumatic. Normocephalic. EYES: Right pupil and left for both around 3 mm and sluggishly reactive to 2 mm. No scleral icterus. No injection or drainage. ENT: No nasal bleeding or discharge. Mucous membranes pink and moist. Tongue and lip/oral mucosa is swollen and edematous. NECK: Trachea midline. No JVD. CARDIOVASCULAR: RRR. S1, S2 no S4. Without murmur RESPIRATORY: Diminished bibasilar with no appreciable rales. Scattered rhonchi bilaterally. GASTROINTESTINAL: Abdomen obese, soft, non-tender, nondistended. Bowel sounds present. OG in place with some brown output. 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 Legs revealed 2+ pitting edema bilateral lower extremities. NEUROLOGICAL: Cranial nerves II through XII grossly intact with exception of pupils as above. Currently on cisatracurium drip and paralyzed [id number] 2 out of 4 Assessment and Plan - Assessment and Plan Plan: NEURO/PSYCH: Acute encephalopathy - secondary to hypercapnia, improving. Abnormal brain CT with 3 mm hyperdensity in central ampar[place] Major depressive disorder NOS Chronic opioid use Encephalomalacia right cerebellum/left occipital lobe Currently on midazolam drip at 10 mg an hour and fentanyl drip 250 mcg an hour for sedation. Propofol side effect sinus bradycardia. Will discontinue On cisatracurium drip at 2 mcg/kg/min Target [id number] [address] brain - . Solitary 3 mm hyperdensity in the central [place] of uncertain significance. Differential considerations include a punctate calcification and acute hemorrhage MRI brain left occipital lobe and right cerebellum. She does not meet criteria for induced therapeutic hypothermia because she is following commands post CPR. Holding oxycodone 10 mg every 6 hours Holding nabumetone 500 mg twice daily, methocarbamol 750 mg 4 times daily and oxycodone 10 mg every 6 hours Holding gabapentin 200 mg 3 times daily Holding tizanidine 4 mg 3 times daily RESP: Acute hypercapnic and hypoxemic respiratory failure Acute asthma exacerbation Healthcare associated pneumonia WISAM/OHS Prior tobacco abuse Bilateral pleural effusions right 2.2 cm. Left 1.3 cm LMA was placed in the field by EVAC. Intubated in ED 03/18 On PRVC 18/600/09/08/59 Ventilator bundle On albuterol/ipratropium aerosols every 4 hours with albuterol aerosols every 2 hours as needed for dyspnea Weaned off epoprostenol 03/23 Spontaneous breathing trials when clinically indicated. Not today. CT thorax revealed right middle lobe/lower lobe consolidation left lower lobe consolidation. Right pleural effusion 2.2 cm. Left pleural effusion 1.3 cm Methylprednisolone succinate 40 mg IV every 8 hours. Antibiotics as per below. Serial ABG/chest x-ray in a.m. 03/25 CV: Essential HTN Hyperlipidemia Chronic diastolic heart failure Paroxysmal atrial fibrillation on chronic anti-coagulation with warfarin Peripheral vascular disease/peripheral arterial disease Elevated troponin Holding home medication of clonidine 0.1 mg every 6 hours nifedipine 90 mg daily. Continue carvedilol 6.25 mg twice daily with holding parameters for bradycardia We will start on clevidipine gtt to keep systolic blood pressure less than 140 with possible Holding furosemide 20 mg p.o. daily Bumetanide drip at 0.5 mg discontinued 03/22. Acetazolamide will be discontinued as well. Started ethacrynic acid 20 mg daily 2D echo 02/24/18ejection fraction 50%. Wall thickness upper limits of normal. Trace MR. Lactic acid cleared Continue atorvastatin 40 mg daily Doppler bilateral upper and lower extremities with subtherapeutic INR Heparin drip discontinued secondary to elevated INR GI: History of GERD Chronic pancreatitis insufficiency Hypoalbuminemia N.p.o. status Famotidine for GI prophylaxis Docusate sodium/senna 1 tablet twice daily for bowel regimen Resume Creon home medication 3 times daily FEN/RENAL: Chronic kidney disease stage III [place] catheter was placed in the emergency department. Monitor intake and output. Monitor electrolytes and replace as indicated Free water 100 every 4 hours. Creatinine is slowly rising. Recheck in a ID: Acute healthcare associated pneumonia -ESBL positive Klebsiella pneumonia Veillonella species bacteremia Metronidazole 500 every 6 hours, ceftazidime/avibactam day #1 Discontinue piperacillin/tazobactam 03/24 Discontinue 03/22 cefepime 2 g IV every 12 hours, azithromycin 500 mg daily and vancomycin Consultation to ID workup Veillonella species bacteremia Blood cultures 2 03/18 Veillonella spp. Repeat 03/20 no growth to date Sputum, ESBL positive Klebsiella pneumonia Pneumococcal urinary antigens, influenza a and B and chlamydia and mycoplasma all pending/negative HEME: Leukocytosis Chronic anemia/normocytic Chronic anti-coagulation with warfarin 4 mg daily. INR target is 2-3. She is currently therapeutic. Recently INR greater than 15 received vitamin K Monitor CBC daily. Follow trends No indication for transfusion of blood products at this time. Discontinue heparin drip 03/22. Recheck INR in a.m. 03/24 with 1.7. We will likely need to restart drip in a.m. ENDO: Diabetes mellitus History of gout Currently on insulin drip at 3 units an hour to maintain euglycemia. Holding glipizide 10 mg twice daily and insulin glargine/home medication Holding allopurinol 300 mg daily/home medication MSK: Elevated BMI Osteoporosis/osteoarthritis Weight loss encouraged PT evaluate and treat Okay to hold cholecalciferol 5000 units daily PROPH: SCDs for DVT prophylaxis. Heparin drip ACCESS: Right IJ CVL placed 03/19. Right axillary arterial line placed 03/19. Critical care time 35 minutes. Discussed with son at bedside. Care plan discussed and all questions answered.
[2018-03-24] MEDS: Famotidine 20 MG Tablet PO SCH ×2 (15:14→20:31)
--- NOTE | 2018-03-24 16:27 | P.PCN ---
Date of procedure: 03/24/18 Pre-op diagnosis: Klebsiella ESBL positive pneumonia/ARDS Post-op diagnosis: same Procedure: DATE: 03/24/2018 Fiberoptic bronchoscopy/diagnostic and therapeutic INDICATION: Worsening respiratory failure/ARDS/ESBL positive Klebsiella pneumonia CONSENT Informed consent for procedure was obtained from bladimir Cote. DESCRIPTION OF THE PROCEDURE The patient was placed in supine position. PRVC ventilation 16/02 100/1.1 . Patient is currently on a fentanyl drip at 200 mcg an hour, midazolam drip at 10 g an hour and cisatracurium drip at 2 mcg/kg/min. I entered the 8.0 ET tube with fiberoptic bronchoscope. The elizabeth was sharp. Left upper lobe essentially clear. Investigate left lower lobe revealed thick tannish secretions which were suctioned with 30 cc of sterile saline into a Lukens trap and sent for culture see results. The scope was withdrawn back to the elizabeth investigate the right upper, middle and lower lobes. A few scant thick yellow secretions were noted. Mucosa normal. No masses were identified. Scope was withdrawn. No complications. Saturation remained at above 95% at all times. ESTIMATED BLOOD LOSS: Minimal COMPLICATIONS: No apparent complications. STAT chest x-ray pending at time of dictation
[2018-03-24] MEDS: Ceftazidime/Avibactam Inj 0.94 GM in Sodium Chlor 0.9% Inj 50 ML IV.SIG SCH (16:46)
--- NOTE | 2018-03-24 17:33 | XR ---
EXAM DATE: 03/24/2018 5:04 PM EDT AGE/SEX: 52 years / Female INDICATIONS: Status post bronchoscopy. CLINICAL DATA: This is the patient's subsequent encounter. Patient reports that signs and symptoms h ave been present for 1 week and indicates a pain score of Nonresponsive. MEDICAL/SURGICAL HISTORY: Diabetes. Hypertension. None. [place] [facility] [place]. . FINDINGS: A single AP supine portable view of the chest was obtained and again demonstrates the endotracheal tu be in place with the tip approximately 3 cm above the elizabeth. A nasogastric tube is seen coursing thr ough the esophagus into the stomach. The right internal jugular central venous line remains in place. There has been a mild interval improvement in the perihilar and upper lobe infiltrates with moderate residual. The heart size remains mildly prominent. There is no distinct effusion. CONCLUSION: Mild interval improvement in bilateral pulmonary infiltrates. Electronically signed by: Peter Hernandez MD 03/24/2018 5:32 PM EDT
[2018-03-24] MEDS: Bumetanide Inj 25 MG/100 ML BAG IV.CONT SCH (18:47)
[2018-03-24] MEDS: Insulin Regular (For Infusion) 100 UNIT in Sodium Chlor 0.9% Inj 99 ML IV.CONT PRN (19:02)
[2018-03-24] MEDS: niCARdipine Inj 25 MG in Sodium Chlor 0.9% Inj 240 ML IV.CONT PRN (21:33)
[2018-03-25] MEDS: Oral Hygiene Kit OROPHARYNG SCH ×5 (00:05→23:34)
[2018-03-25] MEDS: Ceftazidime/Avibactam Inj 0.94 GM in Sodium Chlor 0.9% Inj 50 ML IV.SIG SCH ×3 (00:05→23:34)
[2018-03-25] MEDS: Cisatracurium Inj 100 MG in Sodium Chlor 0.9% Inj 240 ML IV.CONT PRN ×3 (00:40→15:20)
[2018-03-25] MEDS: Hypromellose 0.3% Opth Gel 10 GM Bottle EACH EYE SCH ×3 (02:22→18:15)
[2018-03-25] MEDS: Midazolam 50 MG/50 ML Inj 50 MG/50 ML BAG IV.CONT PRN ×5 (02:23→21:29)
[2018-03-25] MEDS: niCARdipine Inj 25 MG in Sodium Chlor 0.9% Inj 240 ML IV.CONT PRN ×3 (02:24→10:28)
[2018-03-25 03:10] LABS: Baso % (Auto) 0.1 % (0.0-2.0); Hematocrit 23.5 % (35.0-46.0); Hemoglobin 7.5 gm/dL (11.6-15.3); Lymph # (Auto) 0.6 th/mm3 (1.0-4.8); Mean Corpuscular HGB Conc 32.1 % (32.0-36.0); Mean Corpuscular Hemoglobin 23.3 pg (27.0-34.0); Mean Corpuscular Volume 72.8 fL (80.0-100.0); Mean Platelet Volume 8.8 fL (7.0-11.0); Mono # (Auto) 0.5 th/mm3 (0.0-0.9); Mono % (Auto) 3.8 % (0.0-8.0); Neut # (Auto) 10.9 th/mm3 (1.8-7.7); Neut % (Auto) 91.1 % (16.0-70.0); Platelet Count 179 th/mm3 (150-450); Red Blood Count 3.23 mil/mm3 (4.00-5.30)
[2018-03-25 03:19] LABS: Activated Partial Thrombo Time 34.7 sec (24.3-30.1); INR 1.7 Ratio; Prothrombin Time 16.9 sec (9.8-11.6)
[2018-03-25 03:22] LABS: Calcium 8.7 mg/dL (8.5-10.1); Carbon Dioxide 29.4 meq/L (21.0-32.0); Phosphorus 4.4 mg/dL (2.5-4.9); Potassium 3.4 meq/L (3.5-5.1)
[2018-03-25 04:16] LABS: Lymphocytes 2 % (9-44); Monocytes 2 % (0-8); Myelocytes 1 % (0-0); Tallied Nucleated RBC 3 (0-0)
[2018-03-25 04:17] LABS: Acanthocytes Occ; Platelet Estimate Normal (Normal); Platelet Morphology Normal (Normal)
[2018-03-25] MEDS: MethylPREDNISolone Sod Succinate Inj 40 MG/ML Vial IV.PUSH SCH ×3 (05:05→20:12)
[2018-03-25 06:20] LABS: ABG Base Excess 1.7 mmol/L (-2-2); ABG PCO2 30 mmHg (38-42); ABG PO2 78 mmHG (61-120)
--- NOTE | 2018-03-25 06:54 | XR ---
EXAM DATE: 03/25/2018 6:37 AM EDT AGE/SEX: 52 years / Female INDICATIONS: Shortness of breath. CLINICAL DATA: This is the patient's subsequent encounter. Patient reports that signs and symptoms h ave been present for 1 week and indicates a pain score of Nonresponsive. MEDICAL/SURGICAL HISTORY: Hypertension. None. COMPARISON: [facility] – [place], CHEST 1V SINGLE AP, 03/24/2018. . FINDINGS: A single AP view of the chest demonstrates stable, predominantly biapical airspace disease. Left basi lar atelectasis with possible associated effusion. Heart size is borderline prominent. Stable positio n of life-support tubes CONCLUSION: 1. Stable biapical airspace disease with left basilar consolidation and possible effusion. 2. Stable position of life-support tubes. Electronically signed by: Mark Zuniga MD 03/25/2018 6:53 AM EDT
[2018-03-25] MEDS: Lipase/Protease/Amylase 24/76/120 DR Capsule PO SCH ×4 (07:31→18:15)
[2018-03-25] MEDS: fentaNYL 10 mcg/mL Premix Drip 2,500 MCG/250 ML BAG IV.SIG PRN ×2 (07:51→18:14)
[2018-03-25] MEDS: Chlorhexidine 0.12% Oral Kit 15 ML UDC OROPHARYNG SCH ×2 (09:09→20:11)
[2018-03-25] MEDS: Senna/Docusate Sodium 8.6/50 MG Tablet PO SCH ×2 (09:21→20:12)
[2018-03-25] MEDS: Famotidine 20 MG Tablet PO SCH ×2 (09:22→20:12)
[2018-03-25] MEDS: Carvedilol 6.25 MG Tablet PO SCH ×2 (09:24→20:11)
--- NOTE | 2018-03-25 15:08 | P.PNCC ---
Subjective Subjective Remarks/Hospital Course: 52-year-old female with past medical history of diabetes mellitus, hypertension, hyperlipidemia, atrial fibrillation on chronic anticoagulation with warfarin, chronic diastolic heart failure, asthma, WISAM, peripheral vascular disease, super morbid obesity. She has been at [facility] since 03/02/18. Abeba JACOBO was called due to respiratory distress. When they arrived as she was found to be in respiratory distress with sats in the 70s. She was communicating with them and reportedly said "leave me alone". She then had PEA arrest. She received CPR reportedly 10-15 minutes and received 2 doses of epinephrine. LMA was placed by EVAC. LMA was removed and she was intubated by Dr. Daly after receiving etomidate 20 mg IV and succinylcholine. She has demonstrated purposeful movements post intubation, and is now on a propofol drip. She was recently admitted to [facility] 02/24-03/02 due to hypoglycemia, fall after isolated episode of diarrhea, hypoxia requiring HFNC. She has chronic interstitial changes on CXR. Reviewed records from [facility] which indicate she completed a 7 day course of Levaquin and has been on a prednisone taper. Current CXR shows bibasilar opacities. WBC is 16 ( previously 7.9). She has acute hypercapneic and hypoxemic respiratory failure. 03/19: Afebrile. Remains on 100% FiO2 PEEP of 12. Central has been placed for access due to multiple drips. Plan MRI brain today if respiratory status improves. Does not tolerate lying flat. Likely will need epoprostenol and rotaprone 03/20: Started on epoprostenol and currently on a rotor from bed. Currently on cisatracurium drip at 1 mcg/kg/min. Diuresing well. 03/21: Weaning down epoprostenol. Remains on cisatracurium drip at 6 mcg/kg/ min. Diuresis 6 L. Saturation was improved FiO2 down to 45%. 03/22: Hypothermic overnight. Currently euthermic. Excellent response to bumetanide drip. FiO2 down to 40%. PEEP down to 8. Possible discontinue paralytic agent today. 03/23: Resting comfortable in bed in no acute distress. Afebrile. Desaturated so placed back on rotor prone bed. Creatinine slowly increasing. 03/24: Afebrile. Worsening chest x-ray it appears to be volume overloaded again. +10 L past 24 hours. Will restart on bumetanide drip. Plan for bronchoscopy today. Switch to ceftazidime/avibactam secondary to ESBL positive Klebsiella pneumonia SUBJECTIVE 03/25: FiO2 to 55%. Tolerating demanding drip with -2 L past 24 hours. Bronchoscopy results pending. Positive BM. Restarting tube feeding today Objective Vital Signs / I&O: Vital Signs 03/24/18 15:40 03/24/18 16:00 03/24/18 16:15 Temperature Pulse Rate 63 62 Respiratory Rate 18 18 Blood Pressure 152/68 H Pulse Oximetry 99 100 98 03/24/18 17:00 03/24/18 18:00 03/24/18 19:00 Temperature Pulse Rate 71 70 67 Respiratory Rate 0 L 18 Blood Pressure Pulse Oximetry 98 94 L 98 03/24/18 20:00 03/24/18 20:44 03/24/18 20:48 Temperature 96.3 F L Pulse Rate 66 66 Respiratory Rate 18 19 19 Blood Pressure 212/91 H Pulse Oximetry 97 98 03/24/18 21:00 03/24/18 22:00 03/24/18 22:03 Temperature Pulse Rate 52 L 54 L 67 Respiratory Rate 18 18 18 Blood Pressure 164/71 H Pulse Oximetry 100 96 96 03/24/18 23:00 03/24/18 23:50 03/24/18 23:55 Temperature Pulse Rate 64 62 Respiratory Rate 17 18 20 Blood Pressure 146/67 H Pulse Oximetry 97 98 03/25/18 00:00 03/25/18 01:00 03/25/18 02:00 Temperature 96.6 F L Pulse Rate 63 69 69 Respiratory Rate 18 19 19 Blood Pressure 141/66 H 150/63 H 135/62 Pulse Oximetry 100 96 96 03/25/18 03:00 03/25/18 03:30 03/25/18 04:00 Temperature 97.8 F Pulse Rate 66 67 64 Respiratory Rate 18 18 21 Blood Pressure 139/60 142/62 H Pulse Oximetry 94 L 95 03/25/18 04:19 03/25/18 05:00 03/25/18 06:00 Temperature Pulse Rate 66 65 Respiratory Rate 21 16 3 L Blood Pressure 153/66 H Pulse Oximetry 95 98 97 03/25/18 06:01 03/25/18 07:00 03/25/18 07:34 Temperature Pulse Rate 65 60 58 L Respiratory Rate 2 L 18 18 Blood Pressure 146/67 H 144/64 H Pulse Oximetry 100 97 98 03/25/18 08:00 03/25/18 09:00 03/25/18 09:01 Temperature 97.2 F L Pulse Rate 59 L 58 L 58 L Respiratory Rate 18 6 L 10 L Blood Pressure 149/68 H 125/59 L Pulse Oximetry 95 93 L 93 L 03/25/18 10:00 03/25/18 11:00 03/25/18 12:00 Temperature 98.6 F Pulse Rate 61 56 L 59 L Respiratory Rate 18 18 18 Blood Pressure 137/63 153/70 H 113/40 L Pulse Oximetry 94 L 95 88 L 03/25/18 12:22 03/25/18 13:00 03/25/18 14:00 Temperature Pulse Rate 55 L 62 61 Respiratory Rate 18 18 18 Blood Pressure 123/58 L 124/56 L Pulse Oximetry 95 92 L 96 Intake & Output 03/24/18 03/25/18 03/25/18 18:59 06:59 18:59 Intake Total 450 / 450 3015 / 3015 1500 / 1500 Output Total 1800 / 1800 3625 / 3625 Balance -1350 / -1350 -610 / -610 1500 / 1500 Weight 132.6 kg Intake: IV 450 / 450 3015 / 3015 1500 / 1500 Nimbex Inj 100 MG In NS Inj 240 750 / 750 ML @ 1 MCG/KG/MIN 20.1 mls/hr IV.CONT TITRATE PRN Rx#: [id number] NovoLIN R (IV Infusion) 100 100 / 100 UNIT In NS Inj 99 ML @ Per Protocol IV.CONT TITRATE PRN Rx #:[id number] Versed Inj 50 mg In 50 ml @ 2 50 / 50 150 / 150 100 / 100 MG/HR 2 mls/hr IV.CONT TITRATE PRN Rx#:[id number] KCl Inj 30 MEQ In NS Inj 100 ML 115 / 115 @ 38.333 mls/hr IV.CONT ONCE ONE Rx#:[id number] Sodium Bicarbonate 8.4% Inj 150 700 / 700 MEQ In Sterile Water for Inj 850 ML @ 50 mls/hr IV.CONT . Q20H JACKI Rx#:[id number] Cardene Inj 25 MG In NS Inj 240 500 / 500 250 / 250 ML @ 5 MG/HR 50 mls/hr IV.CONT TITRATE PRN Rx#:[id number] Avycaz Inj 0.94 GM In NS Inj 50 50 / 50 50 / 50 ML @ 25 mls/hr IV.SIG Q12H JACKI Rx#:[id number] Magnesium Sulfate 1 gm/D5W 100 100 / 100 ml Premix 100 ML @ 100 mls/hr IV.SIG ONCE ONE Rx#:[id number] Merrem Inj 1,000 MG In NS Inj 100 / 100 100 ML @ 200 mls/hr IV.SIG Q12H JACKI Rx#:[id number] fentaNYL 10 mcg/mL Premix Drip 250 / 250 250 / 250 250 / 250 2,500 mcg In 250 ml @ 50 MCG/HR 5 mls/hr IV.SIG TITRATE PRN Rx #:[id number] Flagyl 500 MG Inj 100 ML @ 100 100 / 100 200 / 200 200 / 200 mls/hr IV.SIG Q6H JACKI Rx#: [id number] Output: Stool 200 / 200 Urine/Stool Mix 150 / 150 Urine Amount (Catheter) 1650 / 1650 3425 / 3425 Indwelling Urethral Catheter 1650 / 1650 3425 / 3425 Other: Date of Last Bowel Movement 03/24/18 03/24/18 03/25/18 Result Diagrams: 03/25/18 02:47 03/25/18 02:47 Other Results: Microbiology 03/24/18 16:30 Bronchial - Left Lower Lobe Gram Stain - Final 03/24/18 16:30 Bronchial - Left Lower Lobe Bronchial Culture - Preliminary gram negative rods 03/20/18 09:40 Blood - Line Aerobic Blood Culture - Final No growth in 5 days 03/20/18 09:40 Blood - Line Anaerobic Blood Culture - Final No growth in 5 days 03/22/18 22:00 Sputum - Endotracheal Gram Stain - Final 03/22/18 22:00 Sputum - Endotracheal Sputum Culture - Final Klebsiella pneumoniae ESBL pos Multidrug Resistant Carba [employer]: Positive 03/24/18 16:30 Bronchial Washings - Left Lower Lobe Fungal Smear - Final No fungal elements seen 03/18/18 18:15 Blood - Peripheral Aerobic Blood Culture - Final No growth in 5 days 03/18/18 18:15 Blood - Peripheral Anaerobic Blood Culture - Final Veillonella species 03/18/18 18:00 Blood - Peripheral Aerobic Blood Culture - Final No growth in 5 days 03/18/18 18:00 Blood - Peripheral Anaerobic Blood Culture - Final Veillonella species Imaging: Chest X-Ray 03/18/18 17:52 CONCLUSION: 1. ET tube in good position. 2. Increasing patchy areas of consolidation in both lower lungs. Chest CT 03/18/18 18:46 CONCLUSION: 1. Bilateral multi segmental consolidation in the mid and lower lungs and small bilateral pleural effusions. 2. Several enlarged middle mediastinal lymph nodes. Head CT 03/18/18 18:46 CONCLUSION: 1. Solitary 3 mm hyperdensity in the central [place] of uncertain significance. Differential considerations include a punctate calcification and acute hemorrhage. 2. No acute findings in the supratentorial brain. Head MRI 03/19/18 00:00 CONCLUSION: 1. No evidence of brainstem hemorrhage. 2. Small foci of encephalomalacia in the left occipital lobe and right cerebellum 3. No evidence of acute infarct, hemorrhage, mass or edema. 4. No evidence of enhancing intra-axial or extra-axial lesions. Venous Doppler Study 03/19/18 00:00 CONCLUSION: The study is negative for bilateral upper extremity deep venous thrombosis. Venous Doppler Study 03/19/18 00:00 CONCLUSION: The study is negative for bilateral lower extremity deep venous thrombosis. Chest X-Ray 03/19/18 07:33 CONCLUSION: 1. Lines and tubes as detailed above without pneumothorax. 2. Radiographic pattern most consistent with pulmonary edema. This is unchanged. Chest X-Ray 03/20/18 06:00 CONCLUSION: No significant change. Chest X-Ray 03/21/18 05:14 CONCLUSION: Decreased bilateral pulmonary opacity suggesting decreased pulmonary edema. Abdomen X-Ray 03/22/18 00:00 CONCLUSION: Mild ileus. NG tip in stomach. Foot X-Ray 03/22/18 00:00 CONCLUSION: No acute bony destructive change. Previous amputations as above. Fairly marked soft tissue swelling of the forefoot. Chest X-Ray 03/22/18 06:00 CONCLUSION: Increased left mid lung pulmonary consolidation versus atelectasis. Chest X-Ray 03/23/18 06:00 CONCLUSION: Worsening patchy airspace disease, particularly in the left hemithorax. Life support tubes are stable in position Chest X-Ray 03/24/18 00:00 CONCLUSION: Mild interval improvement in bilateral pulmonary infiltrates. Chest X-Ray 03/24/18 06:00 CONCLUSION: Worsening bilateral pulmonary infiltrates, particularly in the right upper lobe Chest X-Ray 03/25/18 06:00 CONCLUSION: 1. Stable biapical airspace disease with left basilar consolidation and possible effusion. 2. Stable position of life-support tubes. Objective Remarks: GENERAL: 52-year-old female patient with an elevated BMI who is resting in rotaprone bed orotracheally intubated. SKIN: Intertriginous lesion with erythema and satellite lesions under left breast. Skin breakdown over medial aspect of left ankle. Skin abrasion from bed/roto-prone over bilateral cheeks. HEAD: Atraumatic. Normocephalic. EYES: Right pupil and left for both around 3 mm and sluggishly reactive to 2 mm. No scleral icterus. No injection or drainage. ENT: No nasal bleeding or discharge. Mucous membranes pink and moist. Tongue and lip/oral mucosa is swollen and edematous.. Covered with Vaseline gauze. NECK: Trachea midline. No JVD. CARDIOVASCULAR: RRR. S1, S2 no S4. Without murmur RESPIRATORY: Diminished bibasilar with no appreciable rales. Scattered rhonchi bilaterally. GASTROINTESTINAL: Abdomen obese, soft, non-tender, nondistended. Bowel sounds present. OG in place with some brown output. 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 Legs revealed 2+ pitting edema bilateral lower extremities. NEUROLOGICAL: Cranial nerves II through XII grossly intact with exception of pupils as above. Currently on cisatracurium drip and paralyzed [id number] 2 out of 4 Assessment and Plan - Assessment and Plan Plan: NEURO/PSYCH: Acute encephalopathy - secondary to hypercapnia, improving. Abnormal brain CT with 3 mm hyperdensity in central [place] Major depressive disorder NOS Chronic opioid use Encephalomalacia right cerebellum/left occipital lobe Currently on midazolam drip at 10 mg an hour and fentanyl drip 250 mcg an hour for sedation. Propofol side effect sinus bradycardia. Will discontinue On cisatracurium drip at 2 mcg/kg/min * at risk for ANDREI/M while on fentanyl/cisatracurium however unable to use propofol with allergy profile/maintain train of four. Will take off paralytic today and try [place] technique. Target [id number] [address] brain - . Solitary 3 mm hyperdensity in the central [place] of uncertain significance. Differential considerations include a punctate calcification and acute hemorrhage MRI brain left occipital lobe and right cerebellum. She does not meet criteria for induced therapeutic hypothermia because she is following commands post CPR. Holding oxycodone 10 mg every 6 hours Holding nabumetone 500 mg twice daily, methocarbamol 750 mg 4 times daily and oxycodone 10 mg every 6 hours Holding gabapentin 200 mg 3 times daily Holding tizanidine 4 mg 3 times daily RESP: Acute hypercapnic and hypoxemic respiratory failure Acute asthma exacerbation Healthcare associated pneumonia WISAM/OHS Prior tobacco abuse Bilateral pleural effusions right 2.2 cm. Left 1.3 cm LMA was placed in the field by EVAC. Intubated in ED 03/18 On PRVC 18/600/09/08/54 Ventilator bundle On albuterol/ipratropium aerosols every 4 hours with albuterol aerosols every 2 hours as needed for dyspnea Weaned off epoprostenol 03/23 Spontaneous breathing trials when clinically indicated. Not today. CT thorax revealed right middle lobe/lower lobe consolidation left lower lobe consolidation. Right pleural effusion 2.2 cm. Left pleural effusion 1.3 cm Methylprednisolone succinate 40 mg IV every 12 hours. Antibiotics as per below. Serial ABG/chest x-ray in a.m. 03/26 CV: Essential HTN Hyperlipidemia Chronic diastolic heart failure Paroxysmal atrial fibrillation on chronic anti-coagulation with warfarin Peripheral vascular disease/peripheral arterial disease Elevated troponin Holding home medication of clonidine 0.1 mg every 6 hours nifedipine 90 mg daily. Continue carvedilol 6.25 mg twice daily with holding parameters for bradycardia We will start on clevidipine gtt to keep systolic blood pressure less than 170 when necessary Holding furosemide 20 mg p.o. daily Bumetanide drip at 0.5 mg discontinued 03/22. Acetazolamide will be discontinued as well. Started ethacrynic acid 20 mg daily 2D echo 02/24/18ejection fraction 50%. Wall thickness upper limits of normal. Trace MR. Lactic acid cleared Continue atorvastatin 40 mg daily Doppler bilateral upper and lower extremities with subtherapeutic INR revealed no acute thrombus Heparin drip discontinued secondary to elevated INR. Recheck in a.m. GI: History of GERD Chronic pancreatitis insufficiency Hypoalbuminemia N.p.o. status Restart vital high-protein goal 55 cc an hour per GIs recommendation Famotidine for GI prophylaxis Docusate sodium/senna 1 tablet twice daily for bowel regimen Resume Creon home medication 3 times daily FEN/RENAL: Chronic kidney disease stage III Hypernatremia Hypokalemia [place] catheter was placed in the emergency department. Monitor intake and output. Monitor electrolytes and replace as indicated Free water 100 every 4 hours. Creatinine is slowly rising. Recheck in a ID: Acute healthcare associated pneumonia -ESBL positive Klebsiella pneumonia Veillonella species bacteremia Metronidazole 500 every 6 hours, ceftazidime/avibactam day #2 Discontinue piperacillin/tazobactam 03/24 Discontinue 03/22 cefepime 2 g IV every 12 hours, azithromycin 500 mg daily and vancomycin Consultation to ID workup Veillonella species bacteremia Blood cultures 2 03/18 Veillonella spp. Repeat 03/20 no growth to date Sputum, ESBL positive Klebsiella pneumonia Pneumococcal urinary antigens, influenza a and B and chlamydia and mycoplasma all pending/negative HEME: Leukocytosis Chronic anemia/normocytic Chronic anti-coagulation with warfarin 4 mg daily. INR target is 2-3. She is currently therapeutic. Recently INR greater than 15 received vitamin K Monitor CBC daily. Follow trends No indication for transfusion of blood products at this time. Discontinue heparin drip 03/22. Recheck INR in a.m. 03/24 with 1.7. We will likely need to restart drip in a.m. ENDO: Diabetes mellitus History of gout Currently on insulin drip at 3 units an hour to maintain euglycemia. Holding glipizide 10 mg twice daily and insulin glargine/home medication Holding allopurinol 300 mg daily/home medication MSK: Elevated BMI Osteoporosis/osteoarthritis Weight loss encouraged PT evaluate and treat Okay to hold cholecalciferol 5000 units daily PROPH: SCDs for DVT prophylaxis. Heparin drip currently hold secondary to elevated INR. ACCESS: Right IJ CVL placed 03/19. Right axillary arterial line placed 03/19. Critical care time 35 minutes.
[2018-03-25 16:31] LABS: ABG Base Excess 1.2 mmol/L (-2-2); ABG PCO2 34 mmHg (38-42); ABG PO2 63 mmHG (61-120)
--- NOTE | 2018-03-25 16:43 | P.PNID ---
Subjective Remarks: remains critical Sp bronch yday Appears more stable today worse today now on 60% FiO2 remains on Rotaprone bed, supine at the time of my exam her sputum grew out MDRO ESBL/+ KPC Kleb S avicaz large amount of secretions off pressors + liquid stool - large amount worsening renal fnx Antibiotics: avicaz flagyl Allergies/Adverse Reactions: Allergies ibuprofen Allergy (Severe, Verified 03/18/18 17:58) MESSES WITH KIDNEYS Sulfa (Sulfonamide Antibiotics) Allergy (Severe, Verified 03/18/18 17:58) HIVES egg Allergy (Intermediate, Verified 03/18/18 17:58) Very Upset Stomach milk Allergy (Unknown, Verified 03/18/18 17:58) Heartburn Objective Vital Signs 03/24/18 17:00 03/24/18 18:00 03/24/18 19:00 Temperature Pulse Rate 71 70 67 Respiratory Rate 0 L 18 Blood Pressure Pulse Oximetry 98 94 L 98 03/24/18 20:00 03/24/18 20:44 03/24/18 20:48 Temperature 96.3 F L Pulse Rate 66 66 Respiratory Rate 18 19 19 Blood Pressure 212/91 H Pulse Oximetry 97 98 03/24/18 21:00 03/24/18 22:00 03/24/18 22:03 Temperature Pulse Rate 52 L 54 L 67 Respiratory Rate 18 18 18 Blood Pressure 164/71 H Pulse Oximetry 100 96 96 03/24/18 23:00 03/24/18 23:50 03/24/18 23:55 Temperature Pulse Rate 64 62 Respiratory Rate 17 18 20 Blood Pressure 146/67 H Pulse Oximetry 97 98 03/25/18 00:00 03/25/18 01:00 03/25/18 02:00 Temperature 96.6 F L Pulse Rate 63 69 69 Respiratory Rate 18 19 19 Blood Pressure 141/66 H 150/63 H 135/62 Pulse Oximetry 100 96 96 03/25/18 03:00 03/25/18 03:30 03/25/18 04:00 Temperature 97.8 F Pulse Rate 66 67 64 Respiratory Rate 18 18 21 Blood Pressure 139/60 142/62 H Pulse Oximetry 94 L 95 03/25/18 04:19 03/25/18 05:00 03/25/18 06:00 Temperature Pulse Rate 66 65 Respiratory Rate 21 16 3 L Blood Pressure 153/66 H Pulse Oximetry 95 98 97 03/25/18 06:01 03/25/18 07:00 03/25/18 07:34 Temperature Pulse Rate 65 60 58 L Respiratory Rate 2 L 18 18 Blood Pressure 146/67 H 144/64 H Pulse Oximetry 100 97 98 03/25/18 08:00 03/25/18 09:00 03/25/18 09:01 Temperature 97.2 F L Pulse Rate 59 L 58 L 58 L Respiratory Rate 18 6 L 10 L Blood Pressure 149/68 H 125/59 L Pulse Oximetry 95 93 L 93 L 03/25/18 10:00 03/25/18 11:00 03/25/18 12:00 Temperature 98.6 F Pulse Rate 61 56 L 59 L Respiratory Rate 18 18 18 Blood Pressure 137/63 153/70 H 113/40 L Pulse Oximetry 94 L 95 88 L 03/25/18 12:22 03/25/18 13:00 03/25/18 14:00 Temperature Pulse Rate 55 L 62 61 Respiratory Rate 18 18 18 Blood Pressure 123/58 L 124/56 L Pulse Oximetry 95 92 L 96 Intake & Output 03/24/18 03/25/18 03/25/18 18:59 06:59 18:59 Intake Total 450 / 450 3015 / 3015 1750 / 1750 Output Total 1800 / 1800 3625 / 3625 Balance -1350 / -1350 -610 / -610 1750 / 1750 Weight 132.6 kg Intake: IV 450 / 450 3015 / 3015 1750 / 1750 Nimbex Inj 100 MG In NS Inj 240 750 / 750 250 / 250 ML @ 1 MCG/KG/MIN 20.1 mls/hr IV.CONT TITRATE PRN Rx#: [id number] NovoLIN R (IV Infusion) 100 100 / 100 UNIT In NS Inj 99 ML @ Per Protocol IV.CONT TITRATE PRN Rx #:[id number] Versed Inj 50 mg In 50 ml @ 2 50 / 50 150 / 150 100 / 100 MG/HR 2 mls/hr IV.CONT TITRATE PRN Rx#:[id number] KCl Inj 30 MEQ In NS Inj 100 ML 115 / 115 @ 38.333 mls/hr IV.CONT ONCE ONE Rx#:[id number] Sodium Bicarbonate 8.4% Inj 150 700 / 700 MEQ In Sterile Water for Inj 850 ML @ 50 mls/hr IV.CONT . Q20H [facility] Rx#:[id number] Cardene Inj 25 MG In NS Inj 240 500 / 500 250 / 250 ML @ 5 MG/HR 50 mls/hr IV.CONT TITRATE PRN Rx#:[id number] Avycaz Inj 0.94 GM In NS Inj 50 50 / 50 50 / 50 ML @ 25 mls/hr IV.SIG Q12H [facility] Rx#:[id number] Magnesium Sulfate 1 gm/D5W 100 100 / 100 ml Premix 100 ML @ 100 mls/hr IV.SIG ONCE ONE Rx#:[id number] Merrem Inj 1,000 MG In NS Inj 100 / 100 100 ML @ 200 mls/hr IV.SIG Q12H [facility] Rx#:[id number] fentaNYL 10 mcg/mL Premix Drip 250 / 250 250 / 250 250 / 250 2,500 mcg In 250 ml @ 50 MCG/HR 5 mls/hr IV.SIG TITRATE PRN Rx #:[id number] Flagyl 500 MG Inj 100 ML @ 100 100 / 100 200 / 200 200 / 200 mls/hr IV.SIG Q6H [facility] Rx#: [id number] Output: Stool 200 / 200 Urine/Stool Mix 150 / 150 Urine Amount (Catheter) 1650 / 1650 3425 / 3425 Indwelling Urethral Catheter 1650 / 1650 3425 / 3425 Other: Date of Last Bowel Movement 03/24/18 03/24/18 03/25/18 03/24/18 16:30 Bronchial - Left Lower Lobe Gram Stain - Final 03/24/18 16:30 Bronchial - Left Lower Lobe Bronchial Culture - Preliminary gram negative rods 03/20/18 09:40 Blood - Line Aerobic Blood Culture - Final No growth in 5 days 03/20/18 09:40 Blood - Line Anaerobic Blood Culture - Final No growth in 5 days 03/22/18 22:00 Sputum - Endotracheal Gram Stain - Final 03/22/18 22:00 Sputum - Endotracheal Sputum Culture - Final Klebsiella pneumoniae ESBL pos Multidrug Resistant [employer]: Positive 03/24/18 16:30 Bronchial Washings - Left Lower Lobe Fungal Smear - Final No fungal elements seen 03/24/18 16:30 Bronchial Washings - Left Lower Lobe Fungal Culture - Pending 03/24/18 16:30 Bronchial Washings - Left Lower Lobe Acid Fast Bacilli Smear - Pending 03/24/18 16:30 Bronchial Washings - Left Lower Lobe Mycobacterial Culture - Pending 03/18/18 18:15 Blood - Peripheral Aerobic Blood Culture - Final No growth in 5 days 03/18/18 18:15 Blood - Peripheral Anaerobic Blood Culture - Final Veillonella species 03/18/18 18:00 Blood - Peripheral Aerobic Blood Culture - Final No growth in 5 days 03/18/18 18:00 Blood - Peripheral Anaerobic Blood Culture - Final Veillonella species Lab - Hematology Results 03/24/18 03/25/18 03:30 02:47 WBC 10.8 12.0 H RBC 3.25 L 3.23 L Hgb 7.6 L 7.5 L Hct 23.8 L 23.5 L MCV 73.2 L 72.8 L MCH 23.5 L 23.3 L MCHC 32.1 32.1 RDW 23.5 H 23.0 H Plt Count 152 179 MPV 8.8 8.8 Prelim Diff (Auto) Slide review pending Slide review pending Neut % (Auto) 89.5 H 91.1 H Lymph % (Auto) 6.6 L 5.0 L [place] % (Auto) 3.7 3.8 Eos % (Auto) 0.0 0.0 Baso % (Auto) 0.2 0.1 Neut # (Auto) 9.7 H 10.9 H Lymph # (Auto) 0.7 L 0.6 L [place] # (Auto) 0.4 0.5 Eos # (Auto) 0.0 0.0 Baso # (Auto) 0.0 0.0 WBC Differential Manual diff final Manual diff final Seg Neuts % (Manual) 84 H 83 H Band Neuts % (Manual) 9 H 12 H Lymphocytes % (Manual) 5 L 2 L Monocytes % (Manual) 2 2 Myelocytes % (Man) 1 H Abs Neuts (Manual) 10.0 H 11.5 H Nucleated RBCs/100 WBC 4 H 3 H Differential Comment . . Platelet Estimate Normal Normal Platelet Morphology Normal Normal Ovalocytes 1+ H Acanthocytes (Spur) Occ H Occ H Keratocytes Occ H Lab - Chemistry Results 03/19/18 03/23/18 03/23/18 05:23 16:19 16:59 Sodium Potassium Chloride Carbon Dioxide Anion Gap BUN Creatinine Estimated GFR POC Glucose 123 H 127 H Random Glucose Calcium Phosphorus Magnesium Total Bilirubin AST ALT Alkaline Phosphatase Ammonia Total Protein Albumin Angiotensin Convert Enz 36 03/23/18 03/23/18 03/23/18 18:21 19:28 20:25 Sodium Potassium Chloride Carbon Dioxide Anion Gap BUN Creatinine Estimated GFR POC Glucose 139 H 128 H 134 H Random Glucose Calcium Phosphorus Magnesium Total Bilirubin AST ALT Alkaline Phosphatase Ammonia Total Protein Albumin Angiotensin Convert Enz 03/23/18 03/23/18 03/23/18 21:24 22:12 23:02 Sodium Potassium Chloride Carbon Dioxide Anion Gap BUN Creatinine Estimated GFR POC Glucose 133 H 136 H 130 H Random Glucose Calcium Phosphorus Magnesium Total Bilirubin AST ALT Alkaline Phosphatase Ammonia Total Protein Albumin Angiotensin Convert Enz 03/24/18 03/24/18 03/24/18 00:00 01:02 01:56 Sodium Potassium Chloride Carbon Dioxide Anion Gap BUN Creatinine Estimated GFR POC Glucose 136 H 130 H 139 H Random Glucose Calcium Phosphorus Magnesium Total Bilirubin AST ALT Alkaline Phosphatase Ammonia Total Protein Albumin Angiotensin Convert Enz 03/24/18 03/24/18 03/24/18 03:02 03:30 03:59 Sodium 146 H Potassium 3.7 Chloride 106 Carbon Dioxide 30.0 Anion Gap 10 BUN 54 H Creatinine 2.10 H Estimated GFR 30 L POC Glucose 140 H 139 H Random Glucose 123 H Calcium 7.7 L Phosphorus 4.5 Magnesium 2.0 Total Bilirubin 1.1 H AST 19 ALT 25 Alkaline Phosphatase 101 Ammonia Total Protein 6.1 L Albumin 2.9 L D Angiotensin Convert Enz 03/24/18 03/24/18 03/24/18 05:08 06:04 06:55 Sodium Potassium Chloride Carbon Dioxide Anion Gap BUN Creatinine Estimated GFR POC Glucose 142 H 138 H 142 H Random Glucose Calcium Phosphorus Magnesium Total Bilirubin AST ALT Alkaline Phosphatase Ammonia Total Protein Albumin Angiotensin Convert Enz 03/24/18 03/24/18 03/24/18 08:29 10:45 14:15 Sodium 147 H Potassium 3.8 Chloride 107 Carbon Dioxide 31.0 Anion Gap 9 BUN 55 H Creatinine 2.22 H Estimated GFR 28 L POC Glucose 144 H 160 H Random Glucose 119 H Calcium 8.3 L Phosphorus Magnesium Total Bilirubin AST ALT Alkaline Phosphatase Ammonia Total Protein Albumin Angiotensin Convert Enz 03/24/18 03/24/18 03/24/18 16:01 19:12 21:04 Sodium Potassium Chloride Carbon Dioxide Anion Gap BUN Creatinine Estimated GFR POC Glucose 130 H 119 H 73 Random Glucose Calcium Phosphorus Magnesium Total Bilirubin AST ALT Alkaline Phosphatase Ammonia Total Protein Albumin Angiotensin Convert Enz 03/24/18 03/24/18 03/24/18 21:06 22:11 23:10 Sodium Potassium Chloride Carbon Dioxide Anion Gap BUN Creatinine Estimated GFR POC Glucose 140 H 133 H 126 H Random Glucose Calcium Phosphorus Magnesium Total Bilirubin AST ALT Alkaline Phosphatase Ammonia Total Protein Albumin Angiotensin Convert Enz 03/25/18 03/25/18 03/25/18 00:02 01:05 02:06 Sodium Potassium Chloride Carbon Dioxide Anion Gap BUN Creatinine Estimated GFR POC Glucose 140 H 142 H 148 H Random Glucose Calcium Phosphorus Magnesium Total Bilirubin AST ALT Alkaline Phosphatase Ammonia Total Protein Albumin Angiotensin Convert Enz 03/25/18 03/25/18 03/25/18 02:47 02:47 03:06 Sodium 148 H Potassium 3.4 L Chloride 109 H Carbon Dioxide 29.4 Anion Gap 10 BUN 59 H Creatinine 2.08 H Estimated GFR 30 L POC Glucose 154 H Random Glucose 135 H Calcium 8.7 Phosphorus 4.4 Magnesium 2.0 Total Bilirubin AST ALT Alkaline Phosphatase Ammonia 22 Total Protein Albumin Angiotensin Convert Enz 03/25/18 03/25/18 03/25/18 04:13 05:10 06:21 Sodium Potassium Chloride Carbon Dioxide Anion Gap BUN Creatinine Estimated GFR POC Glucose 141 H 144 H 151 H Random Glucose Calcium Phosphorus Magnesium Total Bilirubin AST ALT Alkaline Phosphatase Ammonia Total Protein Albumin Angiotensin Convert Enz 03/25/18 03/25/18 03/25/18 07:12 07:53 09:01 Sodium Potassium Chloride Carbon Dioxide Anion Gap BUN Creatinine Estimated GFR POC Glucose 159 H 145 H 146 H Random Glucose Calcium Phosphorus Magnesium Total Bilirubin AST ALT Alkaline Phosphatase Ammonia Total Protein Albumin Angiotensin Convert Enz 03/25/18 03/25/18 03/25/18 09:59 10:58 12:04 Sodium Potassium Chloride Carbon Dioxide Anion Gap BUN Creatinine Estimated GFR POC Glucose 141 H 151 H 143 H Random Glucose Calcium Phosphorus Magnesium Total Bilirubin AST ALT Alkaline Phosphatase Ammonia Total Protein Albumin Angiotensin Convert Enz 03/25/18 03/25/18 03/25/18 13:04 13:58 14:52 Sodium Potassium Chloride Carbon Dioxide Anion Gap BUN Creatinine Estimated GFR POC Glucose 153 H 151 H 142 H Random Glucose Calcium Phosphorus Magnesium Total Bilirubin AST ALT Alkaline Phosphatase Ammonia Total Protein Albumin Angiotensin Convert Enz Imaging: ITS Impressions Chest CT 03/18/18 18:46 CONCLUSION: 1. Bilateral multi segmental consolidation in the mid and lower lungs and small bilateral pleural effusions. 2. Several enlarged middle mediastinal lymph nodes. Head CT 03/18/18 18:46 CONCLUSION: 1. Solitary 3 mm hyperdensity in the central [place] of uncertain significance. Differential considerations include a punctate calcification and acute hemorrhage. 2. No acute findings in the supratentorial brain. Head MRI 03/19/18 00:00 CONCLUSION: 1. No evidence of brainstem hemorrhage. 2. Small foci of encephalomalacia in the left occipital lobe and right cerebellum 3. No evidence of acute infarct, hemorrhage, mass or edema. 4. No evidence of enhancing intra-axial or extra-axial lesions. Venous Doppler Study 03/19/18 00:00 CONCLUSION: The study is negative for bilateral lower extremity deep venous thrombosis. Abdomen X-Ray 03/22/18 00:00 CONCLUSION: Mild ileus. NG tip in stomach. Foot X-Ray 03/22/18 00:00 CONCLUSION: No acute bony destructive change. Previous amputations as above. Fairly marked soft tissue swelling of the forefoot. Chest X-Ray 03/25/18 06:00 CONCLUSION: 1. Stable biapical airspace disease with left basilar consolidation and possible effusion. 2. Stable position of life-support tubes. Physical Exam: no acute distress, morbidly obese sedated paralysed on rotapnoen bed, supine Head: Present: normocephalic, atraumatic, prominent facial swelling Eye: Present: marked periorbital swelling no scleral icerus ENT: Present: mucous membranes moist, oropharynx clear NECK: trachea midline LUNGs: patient mechanically ventilated, clear Cardiovascular : RRR, S1, S2 no murmurs, rubs , gallops well perused perify Abdominal : soft, markeldy distended no reaction to palpation, no audfible bowel sounds no palpable organomegaly large amount of stool in rectal collection system : hernandez in place with small amount of clear yellow urine Extremities: edema 4+, anasarca Skin : intact, dry, no rash well perfused Neurological : heavily sedated paralysed e Psychiatric : unable to assess Assessment and Plan - Plan sp cardiac arrest Anaerobic sepsis; veillonella ? source : GI vs osteo Xrays negative, CT/MR not feasible 2/2 clincial cond'n Acute VDRF PNA, ESBL/ ? KPC Kleb YOU with worsening renal fnx - - when feasible CT A/P - MRI when feasible - cont Flagyl 500 q 6 for anaerobic sepsis - cont avycaz C.diff chk repeat creatinine - if improves will upp the dose micro to chk sens to dawit doylevshruthi and sylvester agnel RN @ [facility]
[2018-03-25 17:00] LABS: Hematocrit 22.7 % (35.0-46.0); Hemoglobin 7.2 gm/dL (11.6-15.3); Mean Corpuscular HGB Conc 31.7 % (32.0-36.0); Mean Corpuscular Volume 72.7 fL (80.0-100.0); Mean Platelet Volume 9.4 fL (7.0-11.0); Platelet Count 186 th/mm3 (150-450); Red Blood Count 3.12 mil/mm3 (4.00-5.30); Red Cell Distribution Width 23.1 % (11.6-17.2); White Blood Count 11.5 th/mm3 (4.0-11.0)
--- NOTE | 2018-03-25 17:38 | XR ---
EXAM DATE: 03/25/2018 3:50 PM EDT AGE/SEX: 52 years / Female INDICATIONS: Respiratory Failure. Follow-up pulmonary opacities. CLINICAL DATA: This is the patient's subsequent encounter. Patient reports that signs and symptoms h ave been present for 2 weeks and indicates a pain score of Nonresponsive. MEDICAL/SURGICAL HISTORY: . Hypertension. Hyperlipidemia. Diabetes. Atrial fibrillation. Conge stive heart failure. COPD. Chronic kidney disease. Left leg DVT. GERD. Methicillin-resistant staphylo coccus aureus. . Toe amputation. Tubal ligation. Tonsillectomy. Mastectomy. COMPARISON: [facility] [place] [facility] [place] 1V SINGLE AP, 03/25/2018. . FINDINGS: A single AP portable supine view of the chest was obtained and again demonstrates an endotracheal tub e in place with the tip approximately 3 cm above the elizabeth. This is not well visualized. The nasogas tric tube is seen coursing through the esophagus into the stomach. The right internal jugular central venous line remains in place. Bilateral alveolar opacities remain greatest in the upper lobes and pe rihilar regions. This does not change. The heart size appears mildly prominent. There is no distinct effusion. The bony thorax is intact with overlying electrocardiogram leads. CONCLUSION: 1. No significant change in the bilateral pulmonary infiltrates most characteristic of pulmonary wilfredo ma. Electronically signed by: Peter Hernandez MD 03/25/2018 5:37 PM EDT
--- NOTE | 2018-03-25 17:44 | ECG ---
Date Performed: 03/25/2018 Time Performed: 16:21:14 PTAGE: 52 years EKG: SINUS BRADYCARDIA WITH OCCASIONAL VENTRICULAR PREMATURE COMPLEXES NONSPECIFIC T-WAVE ABNORM ALITY BORDERLINE ECG Compared to prior electrocardiogram, Premature ventricular contractions and Nons pecific T wave changes are now present . PREVIOUS TRACING : 03/19/2018 04.42 DOCTOR: Dwight Sanders Interpretating Date/Time 03/25/2018 17:43:11
[2018-03-25 17:55] LABS: Calcium 8.8 mg/dL (8.5-10.1); Carbon Dioxide 27.8 meq/L (21.0-32.0); Potassium 3.5 meq/L (3.5-5.1)
[2018-03-25] MEDS ORDERED: Potassium Chlor 40 mEq Premix 40 MEQ/100 ML PIGGYBACK IV.SIG ONE (17:58)
[2018-03-25] MEDS: EPOPROSTENOL NEB SCH (22:08)
[2018-03-25] MEDS: SODIUM CHLOR NEB SCH (22:08)
[2018-03-25] MEDS: Insulin Regular (For Infusion) 100 UNIT in Sodium Chlor 0.9% Inj 99 ML IV.CONT PRN (22:40)
[2018-03-26 00:31] LABS: Baso # (Auto) 0.1 th/mm3 (0.0-0.2); Baso % (Auto) 0.5 % (0.0-2.0); Hematocrit 25.9 % (35.0-46.0); Hemoglobin 8.3 gm/dL (11.6-15.3); Lymph # (Auto) 0.5 th/mm3 (1.0-4.8); Lymph % (Auto) 4.8 % (9.0-44.0); Mean Corpuscular Hemoglobin 23.7 pg (27.0-34.0); Mean Platelet Volume 9.2 fL (7.0-11.0); Mono # (Auto) 0.4 th/mm3 (0.0-0.9); Neut % (Auto) 90.7 % (16.0-70.0); Platelet Count 181 th/mm3 (150-450); Red Cell Distribution Width 23.7 % (11.6-17.2); White Blood Count 11.1 th/mm3 (4.0-11.0)
[2018-03-26 00:50] LABS: Albumin 2.5 g/dL (3.4-5.0); Anion Gap 9 meq/L (5-15); Aspartate Aminotransferase 11 U/L (15-37); Blood Urea Nitrogen 68 mg/dL (7-18); Calcium 8.7 mg/dL (8.5-10.1); Carbon Dioxide 28.9 meq/L (21.0-32.0); Chloride 110 meq/L (98-107); Glomerular Filtration Rate 27 mL/min (>89); Glucose,Random 167 mg/dL (74-106); Magnesium 1.9 mg/dL (1.5-2.5); Phosphorus 5.3 mg/dL (2.5-4.9); Potassium 3.9 meq/L (3.5-5.1); Sodium 148 meq/L (136-145)
[2018-03-26 00:52] LABS: Activated Partial Thrombo Time 30.2 sec (24.3-30.1); INR 1.6 Ratio; Prothrombin Time 15.8 sec (9.8-11.6)
[2018-03-26 00:54] LABS: Alanine Aminotransferase 24 U/L (10-53); Alkaline Phosphatase 82 U/L (45-117); Total Protein 5.5 g/dL (6.4-8.2); Troponin I 0.07 ng/mL (0.02-0.05)
[2018-03-26 01:14] LABS: Lymphocytes 7 % (9-44); Metamyelocytes 1 % (0-1); Monocytes 4 % (0-8); Myelocytes 3 % (0-0); Tallied Nucleated RBC 1 (0-0)
[2018-03-26 01:16] LABS: Ovalocytes 1+; Platelet Estimate Normal (Normal)
[2018-03-26] MEDS: fentaNYL 10 mcg/mL Premix Drip 2,500 MCG/250 ML BAG IV.SIG PRN ×4 (01:17→22:27)
[2018-03-26 01:18] LABS: Acanthocytes Occ
[2018-03-26] MEDS: Midazolam 50 MG/50 ML Inj 50 MG/50 ML BAG IV.CONT PRN ×2 (01:18→05:31)
[2018-03-26] MEDS: Hypromellose 0.3% Opth Gel 10 GM Bottle EACH EYE SCH ×3 (02:42→18:10)
[2018-03-26] MEDS: Oral Hygiene Kit OROPHARYNG SCH ×3 (04:26→16:50)
[2018-03-26] MEDS: Bumetanide Inj 25 MG/100 ML BAG IV.CONT SCH ×2 (05:30→17:05)
[2018-03-26 05:36] LABS: ABG Base Excess -1.6 mmol/L (-2-2); ABG PCO2 38 mmHg (38-42); ABG PO2 69 mmHG (61-120)
[2018-03-26] MEDS: Chlorhexidine 0.12% Oral Kit 15 ML UDC OROPHARYNG SCH ×2 (08:14→20:41)
[2018-03-26] MEDS: Carvedilol 6.25 MG Tablet PO SCH ×2 (08:15→20:38)
[2018-03-26] MEDS: Lipase/Protease/Amylase 24/76/120 DR Capsule PO SCH ×3 (08:16→17:04)
[2018-03-26] MEDS: MethylPREDNISolone Sod Succinate Inj 40 MG/ML Vial IV.PUSH SCH ×2 (08:16→20:37)
[2018-03-26] MEDS: Senna/Docusate Sodium 8.6/50 MG Tablet PO SCH ×2 (08:16→20:38)
[2018-03-26] MEDS: Famotidine 20 MG Tablet PO SCH ×2 (08:16→20:38)
[2018-03-26] MEDS ORDERED: Dexmedetomidine Inj 800 MCG in Sodium Chlor 0.9% Inj 42 ML IV.CONT PRN (08:50)
[2018-03-26] MEDS ORDERED: Chlorothiazide Inj 500 MG Vial IV.PUSH STA (08:55)
--- NOTE | 2018-03-26 09:07 | P.PNCC ---
Subjective Subjective Remarks/Hospital Course: 52-year-old female with past medical history of diabetes mellitus, hypertension, hyperlipidemia, atrial fibrillation on chronic anticoagulation with warfarin, chronic diastolic heart failure, asthma, WISAM, peripheral vascular disease, super morbid obesity. She has been at [facility] since 03/02/18. Abeba JACOBO was called due to respiratory distress. When they arrived as she was found to be in respiratory distress with sats in the 70s. She was communicating with them and reportedly said "leave me alone". She then had PEA arrest. She received CPR reportedly 10-15 minutes and received 2 doses of epinephrine. LMA was placed by EVAC. LMA was removed and she was intubated by Dr. Daly after receiving etomidate 20 mg IV and succinylcholine. She has demonstrated purposeful movements post intubation, and is now on a propofol drip. She was recently admitted to [facility] 02/24-03/02 due to hypoglycemia, fall after isolated episode of diarrhea, hypoxia requiring HFNC. She has chronic interstitial changes on CXR. Reviewed records from [facility] which indicate she completed a 7 day course of Levaquin and has been on a prednisone taper. Current CXR shows bibasilar opacities. WBC is 16 ( previously 7.9). She has acute hypercapneic and hypoxemic respiratory failure. 03/19: Afebrile. Remains on 100% FiO2 PEEP of 12. Central has been placed for access due to multiple drips. Plan MRI brain today if respiratory status improves. Does not tolerate lying flat. Likely will need epoprostenol and rotaprone 03/20: Started on epoprostenol and currently on a rotor from bed. Currently on cisatracurium drip at 1 mcg/kg/min. Diuresing well. 03/21: Weaning down epoprostenol. Remains on cisatracurium drip at 6 mcg/kg/ min. Diuresis 6 L. Saturation was improved FiO2 down to 45%. 03/22: Hypothermic overnight. Currently euthermic. Excellent response to bumetanide drip. FiO2 down to 40%. PEEP down to 8. Possible discontinue paralytic agent today. 03/23: Resting comfortable in bed in no acute distress. Afebrile. Desaturated so placed back on rotor prone bed. Creatinine slowly increasing. 03/24: Afebrile. Worsening chest x-ray it appears to be volume overloaded again. +10 L past 24 hours. Will restart on bumetanide drip. Plan for bronchoscopy today. Switch to ceftazidime/avibactam secondary to ESBL positive Klebsiella pneumonia SUBJECTIVE 03/25: FiO2 to 55%. Tolerating demanding drip with -2 L past 24 hours. Bronchoscopy results pending. Positive BM. Restarting tube feeding today 03/26: Cr continues to rise, although clinically continues to appear severely volume overloaded. fio2 70%. supine all night. off nimbex. off flolan. ID managing ESBL/MDRO/KPC Klebsiella and anaerobic bacteremia. Objective Vital Signs / I&O: Vital Signs 03/25/18 09:00 03/25/18 09:01 03/25/18 10:00 Temperature Pulse Rate 58 L 58 L 61 Respiratory Rate 6 L 10 L 18 Blood Pressure 125/59 L 137/63 Pulse Oximetry 93 L 93 L 94 L 03/25/18 11:00 03/25/18 12:00 03/25/18 12:22 Temperature 37.0 C Pulse Rate 56 L 59 L 55 L Respiratory Rate 18 18 18 Blood Pressure 153/70 H 113/40 L Pulse Oximetry 95 88 L 95 03/25/18 13:00 03/25/18 14:00 03/25/18 15:00 Temperature Pulse Rate 62 61 64 Respiratory Rate 18 18 18 Blood Pressure 123/58 L 124/56 L 133/62 Pulse Oximetry 92 L 96 98 03/25/18 16:00 03/25/18 16:43 03/25/18 18:00 Temperature 37.1 C Pulse Rate 59 L 54 L Respiratory Rate 18 16 Blood Pressure 138/46 L Pulse Oximetry 94 L 95 03/25/18 19:23 03/25/18 20:00 03/25/18 20:32 Temperature 37.2 C Pulse Rate 84 56 L 57 L Respiratory Rate 18 16 16 Blood Pressure 132/46 L Pulse Oximetry 99 95 03/25/18 21:01 03/25/18 21:17 03/25/18 21:33 Temperature 37.2 C 37.2 C 37.2 C Pulse Rate 58 L 57 L 56 L Respiratory Rate 16 16 16 Blood Pressure 129/49 L 129/49 L 127/44 L Pulse Oximetry 94 L 94 L 93 L 03/25/18 22:00 03/25/18 23:31 03/26/18 00:00 Temperature 37.3 C Pulse Rate 56 L 56 L 55 L Respiratory Rate 16 16 Blood Pressure 142/51 H Pulse Oximetry 93 L 98 03/26/18 01:23 03/26/18 02:00 03/26/18 03:30 Temperature 37.4 C Pulse Rate 56 L 57 L 57 L Respiratory Rate 16 16 Blood Pressure 126/44 L Pulse Oximetry 92 L 93 L 03/26/18 04:00 03/26/18 06:00 Temperature 37.5 C Pulse Rate 60 59 L Respiratory Rate 16 Blood Pressure 134/47 L Pulse Oximetry 93 L Intake & Output 03/25/18 03/26/18 03/26/18 18:59 06:59 18:59 Intake Total 2662 / 2662 3150 / 3150 Output Total 1800 / 1800 1450 / 1450 Balance 862 / 862 1700 / 1700 Weight 130.6 kg Intake: IV 2200 / 2200 2019 / 2019 Nimbex Inj 100 MG In NS Inj 240 250 / 250 ML @ 1 MCG/KG/MIN 20.1 mls/hr IV.CONT TITRATE PRN Rx#: [id number] Versed Inj 50 mg In 50 ml @ 2 150 / 150 150 / 150 MG/HR 2 mls/hr IV.CONT TITRATE PRN Rx#:[id number] Cardene Inj 25 MG In NS Inj 240 250 / 250 ML @ 5 MG/HR 50 mls/hr IV.CONT TITRATE PRN Rx#:[id number] Avycaz Inj 0.94 GM In NS Inj 50 50 / 50 50 / 50 ML @ 25 mls/hr IV.SIG Q12H JACKI Rx#:[id number] KCl 40 mEq Premix Inj 40 meq In 100 / 100 100 ml @ 25 mls/hr IV.SIG ONCE ONE Rx#:[id number] fentaNYL 10 mcg/mL Premix Drip 500 / 500 250 / 250 2,500 mcg In 250 ml @ 50 MCG/HR 5 mls/hr IV.SIG TITRATE PRN Rx #:[id number] Flagyl 500 MG Inj 100 ML @ 100 300 / 300 200 / 200 mls/hr IV.SIG Q6H JACKI Rx#: [id number] Tube Feeding 162 / 162 430 / 430 Water Bolus Amount 300 / 300 300 / 300 Intake (Blood Product) Amt 400 / 400 Rbc As-3 Leukoreduced Unit 400 / 400 [id number] Output: Stool 200 / 200 0 / 0 Urine Amount (Catheter) 1600 / 1600 1450 / 1450 Indwelling Urethral Catheter 1600 / 1600 1450 / 1450 Other: Date of Last Bowel Movement 03/25/18 03/25/18 Result Diagrams: 03/26/18 00:05 03/26/18 00:05 Objective Remarks: GENERAL: 52-year-old female patient with an elevated BMI who is lying in rotaprone bed orotracheally intubated. SKIN: Intertriginous lesion with erythema and satellite lesions under left breast. Skin breakdown over medial aspect of left ankle. Skin abrasion from bed/roto-prone over bilateral cheeks. HEAD: Atraumatic. Normocephalic. EYES: bilateral pupils sluggishly reactive. No scleral icterus. No injection or drainage. ENT: No nasal bleeding or discharge. Mucous membranes pink and moist. Tongue and lip/oral mucosa is swollen and edematous.. Covered with Vaseline gauze. NECK: Trachea midline. No JVD. CARDIOVASCULAR: RRR. sinus. RESPIRATORY: Diminished bibasilar with no appreciable rales. Scattered rhonchi bilaterally. GASTROINTESTINAL: Abdomen obese, soft, non-tender, nondistended OG in place. 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 Legs revealed 2+ pitting edema bilateral lower extremities. NEUROLOGICAL: Cranial nerves II through XII grossly intact with exception of pupils as above. Assessment and Plan - Assessment and Plan Plan: Assessment: 52yF with severe ARDS and organ failure secondary to MDRO/ESBL/KPC Klebsiella and Veillonella bacteremia. remains very critically ill. will attempt to change to regular bed and off rotaprone. unclear volume status: still very positive from I/O standpoint. CXR appears volume overloaded with pulmonary edema superimposed on severe ARDS, but Cr continues to rise with forced diuresis. will attempt diuresis with concentrated albumin. Kidney injury may worsen before it improves and we may even be forced to pursue renal replacement therapies in an effort to improve pulmonary function. NEURO/PSYCH: Acute encephalopathy - secondary to hypercapnia, improving. Abnormal brain CT with 3 mm hyperdensity in central [place] Major depressive disorder NOS Chronic opioid use Encephalomalacia right cerebellum/left occipital lobe d/c midazolam drip start scheduled oxycodone 20mg po q4h start seroquel 50mg po q8h for delirium. continue fentanyl drip precedex if needed for goal RASS -2. Followup CT brain - . Solitary 3 mm hyperdensity in the central [place] of uncertain significance. Differential considerations include a punctate calcification and acute hemorrhage MRI brain left occipital lobe and right cerebellum. She does not meet criteria for induced therapeutic hypothermia because she is following commands post CPR. Holding nabumetone 500 mg twice daily, methocarbamol 750 mg 4 times daily and oxycodone 10 mg every 6 hours Holding gabapentin 200 mg 3 times daily Holding tizanidine 4 mg 3 times daily RESP: Acute hypercapnic and hypoxemic respiratory failure Severe ARDS Acute asthma exacerbation Healthcare associated pneumonia WISAM/OHS Prior tobacco abuse Bilateral pleural effusions right 2.2 cm. Left 1.3 cm LMA was placed in the field by EVAC. Intubated in ED 03/18 Ventilator bundle On albuterol/ipratropium aerosols every 4 hours with albuterol aerosols every 2 hours as needed for dyspnea Weaned off epoprostenol 03/23 Spontaneous breathing trials when clinically indicated. Not today. CT thorax revealed right middle lobe/lower lobe consolidation left lower lobe consolidation. Right pleural effusion 2.2 cm. Left pleural effusion 1.3 cm Methylprednisolone succinate 40 mg IV every 12 hours. Antibiotics as per below. CXR still with pulmonary edema superimposed on ARDS. CV: Essential HTN Hyperlipidemia Chronic diastolic heart failure Paroxysmal atrial fibrillation on chronic anti-coagulation with warfarin Peripheral vascular disease/peripheral arterial disease Elevated troponin Holding home medication of clonidine 0.1 mg every 6 hours nifedipine 90 mg daily. Continue carvedilol 6.25 mg twice daily with holding parameters for bradycardia Holding furosemide 20 mg p.o. daily 2D echo 02/24/18ejection fraction 50%. Wall thickness upper limits of normal. Trace MR. Lactic acid cleared Continue atorvastatin 40 mg daily Doppler bilateral upper and lower extremities with subtherapeutic INR revealed no acute thrombus restart heparin drip. GI: History of GERD Chronic pancreatitis insufficiency Hypoalbuminemia vital high-protein goal 55 cc an hour per GIs recommendation Famotidine for GI prophylaxis Docusate sodium/senna 1 tablet twice daily for bowel regimen Creon home medication 3 times daily FEN/RENAL: Acute kidney injury superimposed on CKD Chronic kidney disease stage III Hypernatremia Hypokalemia Acute severe intravascular volume overload with pulmonary edema [place] catheter was placed in the emergency department. Monitor intake and output. Monitor electrolytes and replace as indicated increase Free water to 300 every 4 hours. Creatinine is slowly rising. Diuretic plan: continue bumex at 0.25mg/hr continues drip restart diamox 500mg iv q8h 1 dose iv diuril continuous albumin infusion to maintain intravascular volume. ID: Acute healthcare associated pneumonia -ESBL positive Klebsiella pneumonia Veillonella species bacteremia Metronidazole 500 every 6 hours, ceftazidime/avibactam day #3 Discontinue piperacillin/tazobactam 03/24 Discontinue 03/22 cefepime 2 g IV every 12 hours, azithromycin 500 mg daily and vancomycin Consultation to ID workup Veillonella species bacteremia Blood cultures 2 03/18 Veillonella spp. Repeat 03/20 no growth to date Sputum, ESBL positive Klebsiella pneumonia Pneumococcal urinary antigens, influenza a and B and chlamydia and mycoplasma all pending/negative HEME: Leukocytosis Chronic anemia/normocytic Chronic anti-coagulation with warfarin 4 mg daily. INR target is 2-3. Monitor CBC daily. Follow trends No indication for transfusion of blood products at this time. Discontinued heparin drip 03/22. Recheck INR in a.m. 03/24 with 1.7. restart heparin drip today. ENDO: Diabetes mellitus History of gout Currently on insulin drip to maintain euglycemia. Holding glipizide 10 mg twice daily and insulin glargine/home medication Holding allopurinol 300 mg daily/home medication MSK: Elevated BMI Osteoporosis/osteoarthritis PT evaluate and treat Okay to hold cholecalciferol 5000 units daily PROPH: SCDs for DVT prophylaxis. Heparin drip ACCESS: Right IJ CVL placed 03/19. Right axillary arterial line placed 03/19. Critical care time 34 minutes, exclusive of separately billed procedures.
[2018-03-26] MEDS: Albumin Human 25% Inj 100 ML IV.SIG SCH ×2 (09:23→17:03)
[2018-03-26] MEDS: QUEtiapine 25 MG Tablet PO SCH ×3 (09:24→21:03)
[2018-03-26] MEDS: Heparin Drip 25,000 UNIT/250 ML BAG IV.CONT PRN (09:55)
[2018-03-26] MEDS ORDERED: RASS Change Order OTHER ONE (10:00)
[2018-03-26] MEDS: Ceftazidime/Avibactam Inj 0.94 GM in Sodium Chlor 0.9% Inj 50 ML IV.SIG SCH (11:36)
[2018-03-26] MEDS: niCARdipine Inj 25 MG in Sodium Chlor 0.9% Inj 240 ML IV.CONT PRN ×3 (12:23→22:23)
--- NOTE | 2018-03-26 12:51 | P.PNID ---
Subjective Remarks: Events noted Asystoly yday with spontaneous recovery of her own rhythm Hypothermic remains critical Sp bronch 03/24 Appears more stable today worse today now on 60% FiO2 remains on Rotaprone bed, supine at the time of my exam her sputum grew out MDRO ESBL/+ KPC Kleb S avicaz large amount of secretions + liquid stool - slowing down worsening renal fnx Antibiotics: avicaz flagyl Allergies/Adverse Reactions: Allergies ibuprofen Allergy (Severe, Verified 03/18/18 17:58) MESSES WITH KIDNEYS Sulfa (Sulfonamide Antibiotics) Allergy (Severe, Verified 03/18/18 17:58) HIVES egg Allergy (Intermediate, Verified 03/18/18 17:58) Very Upset Stomach milk Allergy (Unknown, Verified 03/18/18 17:58) Heartburn Objective Vital Signs 03/25/18 13:00 03/25/18 14:00 03/25/18 15:00 Temperature Pulse Rate 62 61 64 Respiratory Rate 18 18 18 Blood Pressure 123/58 L 124/56 L 133/62 Pulse Oximetry 92 L 96 98 03/25/18 16:00 03/25/18 16:43 03/25/18 18:00 Temperature 98.8 F Pulse Rate 59 L 54 L Respiratory Rate 18 16 Blood Pressure 138/46 L Pulse Oximetry 94 L 95 03/25/18 19:23 03/25/18 20:00 03/25/18 20:32 Temperature 99.0 F Pulse Rate 84 56 L 57 L Respiratory Rate 18 16 16 Blood Pressure 132/46 L Pulse Oximetry 99 95 03/25/18 21:01 03/25/18 21:17 03/25/18 21:33 Temperature 99.0 F 99.0 F 99.0 F Pulse Rate 58 L 57 L 56 L Respiratory Rate 16 16 16 Blood Pressure 129/49 L 129/49 L 127/44 L Pulse Oximetry 94 L 94 L 93 L 03/25/18 22:00 03/25/18 23:31 03/26/18 00:00 Temperature 99.1 F Pulse Rate 56 L 56 L 55 L Respiratory Rate 16 16 Blood Pressure 142/51 H Pulse Oximetry 93 L 98 03/26/18 01:23 03/26/18 02:00 03/26/18 03:30 Temperature 99.3 F Pulse Rate 56 L 57 L 57 L Respiratory Rate 16 16 Blood Pressure 126/44 L Pulse Oximetry 92 L 93 L 03/26/18 04:00 03/26/18 06:00 03/26/18 08:00 Temperature 99.5 F 100.0 F H Pulse Rate 60 59 L 58 L Respiratory Rate 16 16 Blood Pressure 134/47 L 137/50 L Pulse Oximetry 93 L 96 03/26/18 08:23 03/26/18 10:00 Temperature Pulse Rate 60 61 Respiratory Rate 16 Blood Pressure Pulse Oximetry 97 Intake & Output 03/25/18 03/26/18 03/26/18 18:59 06:59 18:59 Intake Total 2662 / 2662 3150 / 3150 250 / 250 Output Total 1800 / 1800 1450 / 1450 Balance 862 / 862 1700 / 1700 250 / 250 Weight 130.6 kg Intake: IV 2200 / 2200 2019 / 2019 250 / 250 Nimbex Inj 100 MG In NS Inj 240 250 / 250 ML @ 1 MCG/KG/MIN 20.1 mls/hr IV.CONT TITRATE PRN Rx#: [id number] Versed Inj 50 mg In 50 ml @ 2 150 / 150 150 / 150 MG/HR 2 mls/hr IV.CONT TITRATE PRN Rx#:[id number] Cardene Inj 25 MG In NS Inj 240 250 / 250 ML @ 5 MG/HR 50 mls/hr IV.CONT TITRATE PRN Rx#:[id number] Avycaz Inj 0.94 GM In NS Inj 50 50 / 50 50 / 50 ML @ 25 mls/hr IV.SIG Q12H JACKI Rx#:[id number] KCl 40 mEq Premix Inj 40 meq In 100 / 100 100 ml @ 25 mls/hr IV.SIG ONCE ONE Rx#:[id number] fentaNYL 10 mcg/mL Premix Drip 500 / 500 250 / 250 250 / 250 2,500 mcg In 250 ml @ 50 MCG/HR 5 mls/hr IV.SIG TITRATE PRN Rx #:[id number] Flagyl 500 MG Inj 100 ML @ 100 300 / 300 200 / 200 mls/hr IV.SIG Q6H JACKI Rx#: [id number] Tube Feeding 162 / 162 430 / 430 Water Bolus Amount 300 / 300 300 / 300 Intake (Blood Product) Amt 400 / 400 Rbc As-3 Leukoreduced Unit 400 / 400 [id number] Output: Stool 200 / 200 0 / 0 Urine Amount (Catheter) 1600 / 1600 1450 / 1450 Indwelling Urethral Catheter 1600 / 1600 1450 / 1450 Other: Date of Last Bowel Movement 03/25/18 03/25/18 03/25/18 03/24/18 16:30 Bronchial - Left Lower Lobe Gram Stain - Final 03/24/18 16:30 Bronchial - Left Lower Lobe Bronchial Culture - Final Klebsiella pneumoniae Multidrug Resistant 03/20/18 09:40 Blood - Line Aerobic Blood Culture - Final No growth in 5 days 03/20/18 09:40 Blood - Line Anaerobic Blood Culture - Final No growth in 5 days 03/22/18 22:00 Sputum - Endotracheal Gram Stain - Final 03/22/18 22:00 Sputum - Endotracheal Sputum Culture - Final Klebsiella pneumoniae ESBL pos Multidrug Resistant Carba [employer]ISH[employer]: Positive 03/24/18 16:30 Bronchial Washings - Left Lower Lobe Fungal Smear - Final No fungal elements seen 03/24/18 16:30 Bronchial Washings - Left Lower Lobe Fungal Culture - Pending 03/24/18 16:30 Bronchial Washings - Left Lower Lobe Acid Fast Bacilli Smear - Pending 03/24/18 16:30 Bronchial Washings - Left Lower Lobe Mycobacterial Culture - Pending 03/18/18 18:15 Blood - Peripheral Aerobic Blood Culture - Final No growth in 5 days 03/18/18 18:15 Blood - Peripheral Anaerobic Blood Culture - Final Veillonella species 03/18/18 18:00 Blood - Peripheral Aerobic Blood Culture - Final No growth in 5 days 03/18/18 18:00 Blood - Peripheral Anaerobic Blood Culture - Final Veillonella species Lab - Hematology Results 03/25/18 03/25/18 03/26/18 02:47 16:15 00:05 WBC 12.0 H 11.5 H 11.1 H RBC 3.23 L 3.12 L 3.50 L Hgb 7.5 L 7.2 L 8.3 L Hct 23.5 L 22.7 L 25.9 L MCV 72.8 L 72.7 L 74.0 L MCH 23.3 L 23.0 L 23.7 L MCHC 32.1 31.7 L 32.0 RDW 23.0 H 23.1 H 23.7 H Plt Count 179 186 181 MPV 8.8 9.4 9.2 Prelim Diff (Auto) Slide review pending Slide review pending Neut % (Auto) 91.1 H 90.7 H Lymph % (Auto) 5.0 L 4.8 L Haines % (Auto) 3.8 4.0 Eos % (Auto) 0.0 0.0 Baso % (Auto) 0.1 0.5 Neut # (Auto) 10.9 H 10.0 H Lymph # (Auto) 0.6 L 0.5 L Haines # (Auto) 0.5 0.4 Eos # (Auto) 0.0 0.0 Baso # (Auto) 0.0 0.1 WBC Differential Manual diff final Manual diff final Seg Neuts % (Manual) 83 H 78 H Band Neuts % (Manual) 12 H 7 H Lymphocytes % (Manual) 2 L 7 L Monocytes % (Manual) 2 4 Metamyelocytes % (Man) 1 Myelocytes % (Man) 1 H 3 H Abs Neuts (Manual) 11.5 H 9.9 H Nucleated RBCs/100 WBC 3 H 1 H Differential Comment . . Platelet Estimate Normal Normal Platelet Morphology Normal Enlarged H Ovalocytes 1+ H Acanthocytes (Spur) Occ H Occ H Keratocytes Occ H Occ H Lab - Chemistry Results 03/19/18 03/24/18 03/24/18 05:23 14:15 16:01 Sodium 147 H Potassium 3.8 Chloride 107 Carbon Dioxide 31.0 Anion Gap 9 BUN 55 H Creatinine 2.22 H Estimated GFR 28 L POC Glucose 130 H Random Glucose 119 H Calcium 8.3 L Phosphorus Magnesium Total Bilirubin AST ALT Alkaline Phosphatase Ammonia Troponin I Total Protein Albumin Angiotensin Convert Enz 36 03/24/18 03/24/18 03/24/18 19:12 21:04 21:06 Sodium Potassium Chloride Carbon Dioxide Anion Gap BUN Creatinine Estimated GFR POC Glucose 119 H 73 140 H Random Glucose Calcium Phosphorus Magnesium Total Bilirubin AST ALT Alkaline Phosphatase Ammonia Troponin I Total Protein Albumin Angiotensin Convert Enz 03/24/18 03/24/18 03/25/18 22:11 23:10 00:02 Sodium Potassium Chloride Carbon Dioxide Anion Gap BUN Creatinine Estimated GFR POC Glucose 133 H 126 H 140 H Random Glucose Calcium Phosphorus Magnesium Total Bilirubin AST ALT Alkaline Phosphatase Ammonia Troponin I Total Protein Albumin Angiotensin Convert Enz 03/25/18 03/25/18 03/25/18 01:05 02:06 02:47 Sodium 148 H Potassium 3.4 L Chloride 109 H Carbon Dioxide 29.4 Anion Gap 10 BUN 59 H Creatinine 2.08 H Estimated GFR 30 L POC Glucose 142 H 148 H Random Glucose 135 H Calcium 8.7 Phosphorus 4.4 Magnesium 2.0 Total Bilirubin AST ALT Alkaline Phosphatase Ammonia Troponin I Total Protein Albumin Angiotensin Convert Enz 03/25/18 03/25/18 03/25/18 02:47 03:06 04:13 Sodium Potassium Chloride Carbon Dioxide Anion Gap BUN Creatinine Estimated GFR POC Glucose 154 H 141 H Random Glucose Calcium Phosphorus Magnesium Total Bilirubin AST ALT Alkaline Phosphatase Ammonia 22 Troponin I Total Protein Albumin Angiotensin Convert Enz 03/25/18 03/25/18 03/25/18 05:10 06:21 07:12 Sodium Potassium Chloride Carbon Dioxide Anion Gap BUN Creatinine Estimated GFR POC Glucose 144 H 151 H 159 H Random Glucose Calcium Phosphorus Magnesium Total Bilirubin AST ALT Alkaline Phosphatase Ammonia Troponin I Total Protein Albumin Angiotensin Convert Enz 03/25/18 03/25/18 03/25/18 07:53 09:01 09:59 Sodium Potassium Chloride Carbon Dioxide Anion Gap BUN Creatinine Estimated GFR POC Glucose 145 H 146 H 141 H Random Glucose Calcium Phosphorus Magnesium Total Bilirubin AST ALT Alkaline Phosphatase Ammonia Troponin I Total Protein Albumin Angiotensin Convert Enz 03/25/18 03/25/18 03/25/18 10:58 12:04 13:04 Sodium Potassium Chloride Carbon Dioxide Anion Gap BUN Creatinine Estimated GFR POC Glucose 151 H 143 H 153 H Random Glucose Calcium Phosphorus Magnesium Total Bilirubin AST ALT Alkaline Phosphatase Ammonia Troponin I Total Protein Albumin Angiotensin Convert Enz 03/25/18 03/25/18 03/25/18 13:58 14:52 16:15 Sodium 147 H Potassium 3.5 Chloride 109 H Carbon Dioxide 27.8 Anion Gap 10 BUN 62 H Creatinine 2.26 H Estimated GFR 27 L POC Glucose 151 H 142 H Random Glucose 148 H Calcium 8.8 Phosphorus 5.0 H Magnesium 2.0 Total Bilirubin AST ALT Alkaline Phosphatase Ammonia Troponin I Total Protein Albumin Angiotensin Convert Enz 03/25/18 03/25/18 03/25/18 16:15 16:23 16:57 Sodium Potassium Chloride Carbon Dioxide Anion Gap BUN Creatinine Estimated GFR POC Glucose 123 H 165 H Random Glucose Calcium Phosphorus Magnesium Total Bilirubin AST ALT Alkaline Phosphatase Ammonia Troponin I 0.08 H Total Protein Albumin Angiotensin Convert Enz 03/25/18 03/25/18 03/25/18 18:04 19:07 20:07 Sodium Potassium Chloride Carbon Dioxide Anion Gap BUN Creatinine Estimated GFR POC Glucose 166 H 175 H 165 H Random Glucose Calcium Phosphorus Magnesium Total Bilirubin AST ALT Alkaline Phosphatase Ammonia Troponin I Total Protein Albumin Angiotensin Convert Enz 03/25/18 03/25/18 03/25/18 21:16 21:58 23:01 Sodium Potassium Chloride Carbon Dioxide Anion Gap BUN Creatinine Estimated GFR POC Glucose 232 H 188 H 168 H Random Glucose Calcium Phosphorus Magnesium Total Bilirubin AST ALT Alkaline Phosphatase Ammonia Troponin I Total Protein Albumin Angiotensin Convert Enz 03/26/18 03/26/18 03/26/18 00:05 00:05 00:05 Sodium 148 H Potassium 3.9 Chloride 110 H Carbon Dioxide 28.9 Anion Gap 9 BUN 68 H Creatinine 2.28 H Estimated GFR 27 L POC Glucose 172 H Random Glucose 167 H Calcium 8.7 Phosphorus 5.3 H Magnesium 1.9 Total Bilirubin 1.0 AST 11 L ALT 24 Alkaline Phosphatase 82 Ammonia 23 Troponin I 0.07 H Total Protein 5.5 L D Albumin 2.5 L Angiotensin Convert Enz 03/26/18 03/26/18 03/26/18 01:06 01:57 02:58 Sodium Potassium Chloride Carbon Dioxide Anion Gap BUN Creatinine Estimated GFR POC Glucose 175 H 193 H 184 H Random Glucose Calcium Phosphorus Magnesium Total Bilirubin AST ALT Alkaline Phosphatase Ammonia Troponin I Total Protein Albumin Angiotensin Convert Enz 03/26/18 03/26/18 03/26/18 04:00 04:57 05:56 Sodium Potassium Chloride Carbon Dioxide Anion Gap BUN Creatinine Estimated GFR POC Glucose 200 H 190 H 187 H Random Glucose Calcium Phosphorus Magnesium Total Bilirubin AST ALT Alkaline Phosphatase Ammonia Troponin I Total Protein Albumin Angiotensin Convert Enz 03/26/18 03/26/18 03/26/18 06:53 08:13 08:58 Sodium Potassium Chloride Carbon Dioxide Anion Gap BUN Creatinine Estimated GFR POC Glucose 215 H 221 H 213 H Random Glucose Calcium Phosphorus Magnesium Total Bilirubin AST ALT Alkaline Phosphatase Ammonia Troponin I Total Protein Albumin Angiotensin Convert Enz 03/26/18 03/26/18 03/26/18 09:58 11:07 11:59 Sodium Potassium Chloride Carbon Dioxide Anion Gap BUN Creatinine Estimated GFR POC Glucose 209 H 200 H 205 H Random Glucose Calcium Phosphorus Magnesium Total Bilirubin AST ALT Alkaline Phosphatase Ammonia Troponin I Total Protein Albumin Angiotensin Convert Enz Imaging: ITS Impressions Chest CT 03/18/18 18:46 CONCLUSION: 1. Bilateral multi segmental consolidation in the mid and lower lungs and small bilateral pleural effusions. 2. Several enlarged middle mediastinal lymph nodes. Head CT 03/18/18 18:46 CONCLUSION: 1. Solitary 3 mm hyperdensity in the central [place] of uncertain significance. Differential considerations include a punctate calcification and acute hemorrhage. 2. No acute findings in the supratentorial brain. Head MRI 03/19/18 00:00 CONCLUSION: 1. No evidence of brainstem hemorrhage. 2. Small foci of encephalomalacia in the left occipital lobe and right cerebellum 3. No evidence of acute infarct, hemorrhage, mass or edema. 4. No evidence of enhancing intra-axial or extra-axial lesions. Venous Doppler Study 03/19/18 00:00 CONCLUSION: The study is negative for bilateral lower extremity deep venous thrombosis. Abdomen X-Ray 03/22/18 00:00 CONCLUSION: Mild ileus. NG tip in stomach. Foot X-Ray 03/22/18 00:00 CONCLUSION: No acute bony destructive change. Previous amputations as above. Fairly marked soft tissue swelling of the forefoot. Chest X-Ray 03/25/18 06:00 CONCLUSION: 1. Stable biapical airspace disease with left basilar consolidation and possible effusion. 2. Stable position of life-support tubes. Physical Exam: no acute distress, morbidly obese sedated paralysed on rotaprone bed, supine Head: Present: normocephalic, atraumatic, prominent facial swelling Eye: Present: marked periorbital swelling no scleral icterus ENT: Present: mucous membranes moist, oropharynx clear NECK: trachea midline LUNGs: patient mechanically ventilated, clear Cardiovascular : RRR, S1, S2 no murmurs, rubs , gallops Abdominal : soft, markeldy distended no reaction to palpation, no audfible bowel sounds no palpable organomegaly lsmall amount of stool in rectal collection system : hernandez in place hernandez in place with small amount of clear yellow urine Extremities: edema 4+, anasarca Skin : intact, dry, no rash well perfused Neurological : heavily sedated e Psychiatric : unable to assess LINE: R IJ in place - OK Assessment and Plan - Plan sp cardiac arrest Anaerobic sepsis; veillonella ? source : GI vs osteo Xrays negative, CT/MR not feasible 10/03 clincial cond'n Acute VDRF PNA, ESBL/ ? KPC Kleb R to zerbaxa, S acvycaz and vabomere YOU with worsening renal fnx ? New sepsis: HD instability; hypothermic, now fever - - when feasible CT A/P - MRI when feasible - cont Flagyl 500 q 6 for anaerobic sepsis - cont avycaz C.diff chk repeat creatinine - if improves will upp the dose micro to chk sens BC x 2 STAT KUB UA, C+S dw RN @ b/s dw microlab
--- NOTE | 2018-03-26 13:58 | XR ---
EXAM DATE: 03/26/2018 1:17 PM EDT AGE/SEX: 52 years / Female INDICATIONS: Distention CLINICAL DATA: This is the patient's initial encounter. Patient reports that signs and symptoms have been present for 3 days and indicates a pain score of Nonresponsive. MEDICAL/SURGICAL HISTORY: . Hypertension. Hyperlipidemia. Diabetes. Atrial fibrillation. Conges tive heart failure. COPD. Chronic kidney disease. Left leg DVT. GERD. Methicillin-resistant staphyloc occus aureus. . . Toe amputation. Tubal ligation. Tonsillectomy. Mastectomy. COMPARISON: [facility] – [place], ABDOMEN 1V KUB, 03/22/2018. . FINDINGS: 2 portable supine views of the abdomen are limited by the portable nature of the exam in combination with the patient's body habitus. A relative possibly of bowel gas. Nasogastric tube coiled in the lef t upper quadrant without dilatation of the stomach. No dilated loops of bowel observed on the current study. No gross pneumoperitoneum or organomegaly. A catheter overlies the rectum. Limited study without dilated loops of bowel observed. Electronically signed by: Manish Ortiz MD 03/26/2018 1:57 PM EDT
[2018-03-26] MEDS: Dexmedetomidine Inj 200 MCG in Sodium Chlor 0.9% Inj 48 ML IV.CONT PRN ×4 (16:24→22:22)
[2018-03-26 16:47] LABS: Bacteria,Urine Rare /hpf; Bilirubin,Urine Negative (Negative); Clarity,Urine Clear (Clear); Color,Urine Straw (Yellw/Straw); Glucose,Urine (UA) Negative (Negative); Leukocyte Esterase,Urine Negative (Negative); Nitrite,Urine Negative (Negative); Specific Gravity,Urine 1.006 (1.002-1.035)
[2018-03-26] MEDS: Insulin Regular (For Infusion) 100 UNIT in Sodium Chlor 0.9% Inj 99 ML IV.CONT PRN (23:12)
[2018-03-27] MEDS: Ceftazidime/Avibactam Inj 0.94 GM in Sodium Chlor 0.9% Inj 50 ML IV.SIG SCH ×2 (00:37→11:57)
[2018-03-27] MEDS: Oral Hygiene Kit OROPHARYNG SCH ×4 (00:38→16:01)
[2018-03-27] MEDS: Albumin Human 25% Inj 100 ML IV.SIG SCH (00:39)
[2018-03-27] MEDS: niCARdipine Inj 25 MG in Sodium Chlor 0.9% Inj 240 ML IV.CONT PRN ×2 (03:10→08:54)
[2018-03-27] MEDS: Hypromellose 0.3% Opth Gel 10 GM Bottle EACH EYE SCH ×3 (03:11→18:11)
[2018-03-27] MEDS: Dexmedetomidine Inj 200 MCG in Sodium Chlor 0.9% Inj 48 ML IV.CONT PRN ×2 (03:11→08:09)
[2018-03-27] MEDS ORDERED: Atropine Inj 1 MG/10 ML Syringe IV.PUSH ONE (05:00)
[2018-03-27] MEDS ORDERED: Sodium Bicarbonate 8.4% Inj 50 MEQ/50 ML Syringe IV.CONT ONE (05:00)
[2018-03-27] MEDS ORDERED: DOPamine 800 MG/500 ML Premix 800 MG/500 ML PLAST..BAG IV.CONT ONE (05:00)
--- NOTE | 2018-03-27 05:30 | P.PNCC ---
Subjective Subjective Remarks/Hospital Course: 52-year-old female with past medical history of diabetes mellitus, hypertension, hyperlipidemia, atrial fibrillation on chronic anticoagulation with warfarin, chronic diastolic heart failure, asthma, WISAM, peripheral vascular disease, super morbid obesity. She has been at [facility] since 03/02/18. Abeba JACOBO was called due to respiratory distress. When they arrived as she was found to be in respiratory distress with sats in the 70s. She was communicating with them and reportedly said "leave me alone". She then had PEA arrest. She received CPR reportedly 10-15 minutes and received 2 doses of epinephrine. LMA was placed by EVAC. LMA was removed and she was intubated by Dr. Daly after receiving etomidate 20 mg IV and succinylcholine. She has demonstrated purposeful movements post intubation, and is now on a propofol drip. She was recently admitted to [facility] 02/24-03/02 due to hypoglycemia, fall after isolated episode of diarrhea, hypoxia requiring HFNC. She has chronic interstitial changes on CXR. Reviewed records from [facility] which indicate she completed a 7 day course of Levaquin and has been on a prednisone taper. Current CXR shows bibasilar opacities. WBC is 16 ( previously 7.9). She has acute hypercapneic and hypoxemic respiratory failure. 03/19: Afebrile. Remains on 100% FiO2 PEEP of 12. Central has been placed for access due to multiple drips. Plan MRI brain today if respiratory status improves. Does not tolerate lying flat. Likely will need epoprostenol and rotaprone 03/20: Started on epoprostenol and currently on a rotor from bed. Currently on cisatracurium drip at 1 mcg/kg/min. Diuresing well. 03/21: Weaning down epoprostenol. Remains on cisatracurium drip at 6 mcg/kg/ min. Diuresis 6 L. Saturation was improved FiO2 down to 45%. 03/22: Hypothermic overnight. Currently euthermic. Excellent response to bumetanide drip. FiO2 down to 40%. PEEP down to 8. Possible discontinue paralytic agent today. 03/23: Resting comfortable in bed in no acute distress. Afebrile. Desaturated so placed back on rotor prone bed. Creatinine slowly increasing. 03/24: Afebrile. Worsening chest x-ray it appears to be volume overloaded again. +10 L past 24 hours. Will restart on bumetanide drip. Plan for bronchoscopy today. Switch to ceftazidime/avibactam secondary to ESBL positive Klebsiella pneumonia SUBJECTIVE 03/25: FiO2 to 55%. Tolerating demanding drip with -2 L past 24 hours. Bronchoscopy results pending. Positive BM. Restarting tube feeding today 03/26: Cr continues to rise, although clinically continues to appear severely volume overloaded. fio2 70%. supine all night. off nimbex. off flolan. ID managing ESBL/MDRO/KPC Klebsiella and anaerobic bacteremia. 03/27: off rotaprone bed. multiple desat episodes overnight. on 100% fio2 and PEEP 10 this AM. good diuresis with net -2L/24h. bumex drip continues. awakens and follows commands. Objective Vital Signs / I&O: Vital Signs 03/26/18 06:00 03/26/18 07:00 03/26/18 08:00 Temperature 37.8 C H Pulse Rate 59 L 59 L 58 L Respiratory Rate 16 17 16 Blood Pressure 144/64 H 144/67 H 139/63 Pulse Oximetry 95 97 96 03/26/18 08:23 03/26/18 09:00 03/26/18 10:00 Temperature Pulse Rate 60 63 61 Respiratory Rate 16 16 16 Blood Pressure 162/74 H Pulse Oximetry 97 96 96 03/26/18 10:01 03/26/18 11:00 03/26/18 12:00 Temperature 38.2 C H Pulse Rate 60 63 68 Respiratory Rate 16 18 18 Blood Pressure 146/67 H 173/74 H 191/69 H Pulse Oximetry 97 98 97 03/26/18 13:00 03/26/18 13:48 03/26/18 13:50 Temperature Pulse Rate 66 63 64 Respiratory Rate 16 18 14 Blood Pressure 177/74 H 166/72 H 159/72 H Pulse Oximetry 95 97 97 03/26/18 14:00 03/26/18 15:00 03/26/18 15:29 Temperature Pulse Rate 62 71 54 L Respiratory Rate 17 16 16 Blood Pressure 153/66 H 161/73 H Pulse Oximetry 97 97 97 03/26/18 16:00 03/26/18 16:01 03/26/18 17:00 Temperature 37.3 C Pulse Rate 53 L 63 56 L Respiratory Rate 29 H 25 H 16 Blood Pressure 131/56 L 138/63 144/66 H Pulse Oximetry 91 L 92 L 100 03/26/18 18:00 03/26/18 19:00 03/26/18 20:00 Temperature Pulse Rate 54 L 53 L 53 L Respiratory Rate 18 18 16 Blood Pressure 150/66 H 153/69 H 148/67 H Pulse Oximetry 97 97 96 03/26/18 20:14 03/26/18 20:22 03/26/18 21:00 Temperature Pulse Rate 51 L 51 L 51 L Respiratory Rate 16 16 16 Blood Pressure 152/68 H 146/67 H Pulse Oximetry 97 96 94 L 03/26/18 22:00 03/26/18 23:00 03/26/18 23:51 Temperature Pulse Rate 51 L 49 L 48 L Respiratory Rate 16 17 16 Blood Pressure 140/64 145/67 H Pulse Oximetry 89 L 93 L 03/27/18 00:00 03/27/18 00:05 03/27/18 01:00 Temperature 36.6 C Pulse Rate 48 L 49 L Respiratory Rate 16 16 17 Blood Pressure 146/67 H 143/67 H Pulse Oximetry 95 95 93 L 03/27/18 04:29 Temperature Pulse Rate 47 L Respiratory Rate 16 Blood Pressure Pulse Oximetry 97 Intake & Output 03/26/18 03/26/18 03/27/18 06:59 18:59 06:59 Intake Total 3150 / 3150 1587 / 1587 1250 / 1250 Output Total 1450 / 1450 3000 / 3000 1999 / 1999 Balance 1700 / 1700 -1413 / -1413 -750 / -750 Weight 130.6 kg Intake: IV 2019 / 2019 1100 / 1100 1250 / 1250 Precedex Inj 200 MCG In NS Inj 100 / 100 150 / 150 48 ML @ 0.2 MCG/KG/HR 6.53 mls/ hr IV.CONT TITRATE PRN Rx#: [id number] Versed Inj 50 mg In 50 ml @ 2 150 / 150 MG/HR 2 mls/hr IV.CONT TITRATE PRN Rx#:[id number] Cardene Inj 25 MG In NS Inj 240 250 / 250 500 / 500 ML @ 5 MG/HR 50 mls/hr IV.CONT TITRATE PRN Rx#:[id number] Flexbumin 25% Inj 100 ML @ 12.5 100 / 100 100 / 100 mls/hr IV.SIG Q8H JACKI Rx#: [id number] Avycaz Inj 0.94 GM In NS Inj 50 50 / 50 50 / 50 50 / 50 ML @ 25 mls/hr IV.SIG Q12H JACKI Rx#:[id number] KCl 40 mEq Premix Inj 40 meq In 100 / 100 100 ml @ 25 mls/hr IV.SIG ONCE ONE Rx#:[id number] fentaNYL 10 mcg/mL Premix Drip 250 / 250 500 / 500 250 / 250 2,500 mcg In 250 ml @ 50 MCG/HR 5 mls/hr IV.SIG TITRATE PRN Rx #:[id number] Flagyl 500 MG Inj 100 ML @ 100 200 / 200 100 / 100 200 / 200 mls/hr IV.SIG Q6H [facility] Rx#: [id number] Tube Feeding 430 / 430 487 / 487 Water Bolus Amount 300 / 300 Intake (Blood Product) Amt 400 / 400 Rbc As-3 Leukoreduced Unit 400 / 400 [id number] Output: Stool 0 / 0 500 / 500 Urine Amount (Catheter) 1450 / 1450 2500 / 2500 1999 Indwelling Urethral Catheter 1450 / 1450 2500 / 2500 1999 Other: Date of Last Bowel Movement 03/25/18 03/26/18 03/27/18 Result Diagrams: 03/26/18 00:05 03/26/18 00:05 Objective Remarks: GENERAL: 52-year-old female patient with an elevated BMI who is lying in bed orotracheally intubated. SKIN: Intertriginous lesion with erythema and satellite lesions under left breast. Skin breakdown over medial aspect of left ankle. Skin abrasion from bed/roto-prone over bilateral cheeks. HEAD: Atraumatic. Normocephalic. EYES: bilateral pupils sluggishly reactive. No scleral icterus. No injection or drainage. ENT: No nasal bleeding or discharge. Mucous membranes pink and moist. Tongue and lip/oral mucosa is swollen and edematous.. Covered with Vaseline gauze. NECK: Trachea midline. No JVD. CARDIOVASCULAR: RRR. sinus. RESPIRATORY: Diminished bibasilar with no appreciable rales. Scattered rhonchi bilaterally. GASTROINTESTINAL: Abdomen obese, soft, non-tender, nondistended OG in place. 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 Legs revealed 2+ pitting edema bilateral lower extremities. NEUROLOGICAL: RASS -2/-3. awakens and follows intermittent commands. moves all extremities. Assessment and Plan - Assessment and Plan Plan: Assessment: 52yF with severe ARDS and organ failure secondary to MDRO/ESBL/KPC Klebsiella and Veillonella bacteremia. remains very critically ill. forced diuresis continues. volume overload persists. hypoxia is refractory and difficult to control: again, likely multifactorial from chronic disease states, volume overload, and severe ARDS. NEURO/PSYCH: Acute encephalopathy - secondary to hypercapnia, improving. Abnormal brain CT with 3 mm hyperdensity in central [place] Major depressive disorder NOS Chronic opioid use Encephalomalacia right cerebellum/left occipital lobe scheduled oxycodone 20mg po q4h seroquel 50mg po q8h for delirium. continue fentanyl drip precedex if needed for goal RASS -2. Followup CT brain - . Solitary 3 mm hyperdensity in the central [place] of uncertain significance. Differential considerations include a punctate calcification and acute hemorrhage MRI brain left occipital lobe and right cerebellum. She does not meet criteria for induced therapeutic hypothermia because she is following commands post CPR. Holding nabumetone 500 mg twice daily, methocarbamol 750 mg 4 times daily and oxycodone 10 mg every 6 hours Holding gabapentin 200 mg 3 times daily Holding tizanidine 4 mg 3 times daily RESP: Acute hypercapnic and hypoxemic respiratory failure Severe ARDS Acute asthma exacerbation Healthcare associated pneumonia WISAM/OHS Prior tobacco abuse Bilateral pleural effusions right 2.2 cm. Left 1.3 cm LMA was placed in the field by EVAC. Intubated in ED 03/18 Ventilator bundle On albuterol/ipratropium aerosols every 4 hours with albuterol aerosols every 2 hours as needed for dyspnea Weaned off epoprostenol 03/23 Spontaneous breathing trials when clinically indicated. Not today. CT thorax revealed right middle lobe/lower lobe consolidation left lower lobe consolidation. Right pleural effusion 2.2 cm. Left pleural effusion 1.3 cm Methylprednisolone succinate 40 mg IV every 12 hours. Antibiotics as per below. CXR still with pulmonary edema superimposed on ARDS. CV: Hypertension- worsening Hyperlipidemia Chronic diastolic heart failure Paroxysmal atrial fibrillation on chronic anti-coagulation with warfarin Peripheral vascular disease/peripheral arterial disease Elevated troponin Holding home medication of clonidine 0.1 mg every 6 hours nifedipine 90 mg daily. Continue carvedilol 6.25 mg twice daily with holding parameters for bradycardia Holding furosemide 20 mg p.o. daily 2D echo 02/24/18ejection fraction 50%. Wall thickness upper limits of normal. Trace MR. Lactic acid cleared Continue atorvastatin 40 mg daily Doppler bilateral upper and lower extremities with subtherapeutic INR revealed no acute thrombus heparin drip. on cardene drip intermittent bradycardia prevents restarting home clonidine start amlodipine 10mg po daily start hydralazine 100mg po q8h GI: History of GERD Chronic pancreatitis insufficiency Hypoalbuminemia vital high-protein goal 55 cc an hour per GIs recommendation Famotidine for GI prophylaxis Docusate sodium/senna 1 tablet twice daily for bowel regimen Creon home medication 3 times daily FEN/RENAL: Acute kidney injury superimposed on CKD Chronic kidney disease stage III Hypernatremia Hypokalemia Acute severe intravascular volume overload with pulmonary edema [place] catheter was placed in the emergency department. Monitor intake and output. Monitor electrolytes and replace as indicated Free water to 300 every 4 hours. Creatinine is slowly rising. Diuretic plan: continue bumex at 0.25mg/hr continues drip restart diamox 500mg iv q8h continuous albumin infusion to maintain intravascular volume. ID: Acute healthcare associated pneumonia -ESBL positive Klebsiella pneumonia Veillonella species bacteremia Metronidazole 500 every 6 hours, ceftazidime/avibactam day #4 Discontinue piperacillin/tazobactam 03/24 Discontinue 03/22 cefepime 2 g IV every 12 hours, azithromycin 500 mg daily and vancomycin Consultation to ID workup Veillonella species bacteremia Blood cultures 2 03/18 Veillonella spp. Repeat 03/20 no growth to date Sputum, ESBL positive Klebsiella pneumonia Pneumococcal urinary antigens, influenza a and B and chlamydia and mycoplasma all pending/negative HEME: Leukocytosis Chronic anemia/normocytic Chronic anti-coagulation with warfarin 4 mg daily. INR target is 2-3. Monitor CBC daily. Follow trends No indication for transfusion of blood products at this time. Discontinued heparin drip 03/22, restarted 03/26. heparin drip ENDO: Diabetes mellitus History of gout Currently on insulin drip to maintain euglycemia. Holding glipizide 10 mg twice daily and insulin glargine/home medication Holding allopurinol 300 mg daily/home medication MSK: Elevated BMI Osteoporosis/osteoarthritis PT evaluate and treat Okay to hold cholecalciferol 5000 units daily PROPH: SCDs for DVT prophylaxis. Heparin drip ACCESS: Right IJ CVL placed 03/19. Right axillary arterial line placed 03/19. Critical care time 41 minutes, exclusive of separately billed procedures.
[2018-03-27] MEDS: QUEtiapine 25 MG Tablet PO SCH ×3 (05:36→21:57)
[2018-03-27 05:38] LABS: Hematocrit 27.2 % (35.0-46.0); Hemoglobin 8.8 gm/dL (11.6-15.3); Mean Corpuscular HGB Conc 32.2 % (32.0-36.0); Mean Corpuscular Hemoglobin 24.2 pg (27.0-34.0); Mean Corpuscular Volume 75.3 fL (80.0-100.0); Platelet Count 167 th/mm3 (150-450); Red Blood Count 3.61 mil/mm3 (4.00-5.30); Red Cell Distribution Width 22.8 % (11.6-17.2); White Blood Count 11.2 th/mm3 (4.0-11.0)
[2018-03-27 05:51] LABS: INR 1.4 Ratio; Prothrombin Time 14.4 sec (9.8-11.6)
[2018-03-27 06:02] LABS: Calcium 8.9 mg/dL (8.5-10.1); Carbon Dioxide 24.7 meq/L (21.0-32.0); Potassium 3.2 meq/L (3.5-5.1)
[2018-03-27] MEDS: Heparin Drip 25,000 UNIT/250 ML BAG IV.CONT PRN (07:59)
[2018-03-27] MEDS: Chlorhexidine 0.12% Oral Kit 15 ML UDC OROPHARYNG SCH ×2 (07:59→20:51)
[2018-03-27] MEDS: Famotidine 20 MG Tablet PO SCH ×2 (08:01→20:50)
[2018-03-27] MEDS: MethylPREDNISolone Sod Succinate Inj 40 MG/ML Vial IV.PUSH SCH ×2 (08:01→20:51)
[2018-03-27] MEDS: amLODIPine 10 MG Tablet PO SCH (08:01)
[2018-03-27] MEDS: Lipase/Protease/Amylase 24/76/120 DR Capsule PO SCH ×3 (08:01→17:02)
[2018-03-27] MEDS: Senna/Docusate Sodium 8.6/50 MG Tablet PO SCH ×2 (08:02→20:50)
[2018-03-27] MEDS: Carvedilol 6.25 MG Tablet PO SCH ×2 (08:13→20:50)
[2018-03-27] MEDS: Potassium Chlor 20 mEq Premix 20 MEQ/100 ML PIGGYBACK IV.SIG SCH ×4 (08:23→14:33)
[2018-03-27] MEDS ORDERED: DOPamine 800 MG/500 ML Premix 800 MG/500 ML PLAST..BAG IV.CONT PRN (09:29)
[2018-03-27] MEDS ORDERED: ATROPINE 0.4 MG/ML IV.PUSH PRN (09:30)
[2018-03-27] MEDS ORDERED: Atropine Inj 1 MG/10 ML Syringe ONE (09:31)
[2018-03-27] MEDS: Midazolam 50 MG/50 ML Inj 50 MG/50 ML BAG IV.CONT PRN ×5 (10:00→23:24)
[2018-03-27] MEDS: Bumetanide Inj 25 MG/100 ML BAG IV.CONT SCH (16:02)
--- NOTE | 2018-03-27 18:34 | P.PNID ---
Subjective Remarks: Events noted off Rotaprone bed remains critical from resp standpoint, on 100% FiO2 hypothermic C.diff negative stooling tolerates tube feeds Antibiotics: avicaz flagyl Allergies/Adverse Reactions: Allergies ibuprofen Allergy (Severe, Verified 03/18/18 17:58) MESSES WITH KIDNEYS Sulfa (Sulfonamide Antibiotics) Allergy (Severe, Verified 03/18/18 17:58) HIVES egg Allergy (Intermediate, Verified 03/18/18 17:58) Very Upset Stomach milk Allergy (Unknown, Verified 03/18/18 17:58) Heartburn Objective Vital Signs 03/26/18 19:00 03/26/18 20:00 03/26/18 20:14 Temperature Pulse Rate 53 L 53 L 51 L Respiratory Rate 18 16 16 Blood Pressure 153/69 H 148/67 H Pulse Oximetry 97 96 97 03/26/18 20:22 03/26/18 21:00 03/26/18 22:00 Temperature Pulse Rate 51 L 51 L 51 L Respiratory Rate 16 16 16 Blood Pressure 152/68 H 146/67 H 140/64 Pulse Oximetry 96 94 L 89 L 03/26/18 23:00 03/26/18 23:51 03/27/18 00:00 Temperature 97.8 F Pulse Rate 49 L 48 L 48 L Respiratory Rate 17 16 16 Blood Pressure 145/67 H 146/67 H Pulse Oximetry 93 L 95 03/27/18 00:05 03/27/18 01:00 03/27/18 02:00 Temperature Pulse Rate 49 L 50 L Respiratory Rate 16 17 16 Blood Pressure 143/67 H 148/69 H Pulse Oximetry 95 93 L 95 03/27/18 03:00 03/27/18 04:00 03/27/18 04:29 Temperature 97.0 F L Pulse Rate 49 L 49 L 47 L Respiratory Rate 16 17 16 Blood Pressure 149/70 H 137/63 Pulse Oximetry 94 L 94 L 97 03/27/18 05:00 03/27/18 06:00 03/27/18 07:00 Temperature Pulse Rate 47 L 49 L 50 L Respiratory Rate 16 17 17 Blood Pressure 141/65 H 140/64 139/64 Pulse Oximetry 98 98 98 03/27/18 08:00 03/27/18 09:00 03/27/18 09:23 Temperature 97.7 F Pulse Rate 51 L 52 L Respiratory Rate 17 18 18 Blood Pressure 133/52 L 151/67 H Pulse Oximetry 98 98 100 03/27/18 10:00 03/27/18 12:00 03/27/18 12:48 Temperature 99.3 F Pulse Rate 63 61 60 Respiratory Rate 16 16 Blood Pressure 129/52 L Pulse Oximetry 99 99 03/27/18 14:00 03/27/18 15:40 03/27/18 15:41 Temperature Pulse Rate 59 L 60 Respiratory Rate 16 16 Blood Pressure Pulse Oximetry 100 03/27/18 16:00 03/27/18 18:00 Temperature 99.2 F Pulse Rate 59 L 58 L Respiratory Rate 16 Blood Pressure 116/47 L Pulse Oximetry 100 Intake & Output 03/26/18 03/27/18 03/27/18 18:59 06:59 18:59 Intake Total 1587 / 1587 1966 / 1964 2188 / 2188 Output Total 3000 / 3000 4500 / 4500 1950 / 1950 Balance -1413 / -1413 -2535 / -2535 238 / 238 Weight 135 kg Intake: IV 1100 / 1100 1250 / 1250 1400 / 1400 Precedex Inj 200 MCG In NS Inj 100 / 100 150 / 150 50 / 50 48 ML @ 0.2 MCG/KG/HR 6.53 mls/ hr IV.CONT TITRATE PRN Rx#: [id number] Heparin/D5W 25,000 U/250 mL 25, 250 / 250 000 unit In 250 ml @ 1,000 UNITS/HR 10 mls/hr IV.CONT TITRATE PRN Rx#:[id number] Versed Inj 50 mg In 50 ml @ 2 100 / 100 MG/HR 2 mls/hr IV.CONT TITRATE PRN Rx#:[id number] Cardene Inj 25 MG In NS Inj 240 250 / 250 500 / 500 250 / 250 ML @ 5 MG/HR 50 mls/hr IV.CONT TITRATE PRN Rx#:[id number] Flexbumin 25% Inj 100 ML @ 12.5 100 / 100 100 / 100 100 / 100 mls/hr IV.SIG Q8H [facility] Rx#: [id number] Avycaz Inj 0.94 GM In NS Inj 50 50 / 50 50 / 50 50 / 50 ML @ 25 mls/hr IV.SIG Q12H [facility]ACK[facility] Rx#:[id number] KCl 20 mEq Premix Inj 20 meq In 400 / 400 100 ml @ 50 mls/hr IV.SIG Q2H [facility] [place] Rx#:[id number] fentaNYL 10 mcg/mL Premix Drip 500 / 500 250 / 250 2,500 mcg In 250 ml @ 50 MCG/HR 5 mls/hr IV.SIG TITRATE PRN Rx #:[id number] Flagyl 500 MG Inj 100 ML @ 100 100 / 100 200 / 200 200 / 200 mls/hr IV.SIG Q6H [facility] [place] Rx#: [id number] Tube Feeding 487 / 487 115 / 115 188 / 188 Water Bolus Amount 600 / 600 600 / 600 Output: Stool 500 / 500 100 / 100 Urine Amount (Catheter) 2500 / 2500 4500 / 4500 1850 / 1850 Indwelling Urethral Catheter 2500 / 2500 4500 / 4500 1850 / 1850 Other: Date of Last Bowel Movement 03/26/18 03/27/18 03/27/18 03/26/18 16:21 Catheterized Urine Urine Culture - Preliminary No growth in 24 hours 03/26/18 15:51 Blood - Peripheral Aerobic Blood Culture - Preliminary No growth in 1 day 03/26/18 15:51 Blood - Peripheral Anaerobic Blood Culture - Preliminary No growth in 1 day 03/26/18 14:39 Blood - Peripheral Aerobic Blood Culture - Preliminary No growth in 1 day 03/26/18 14:39 Blood - Peripheral Anaerobic Blood Culture - Preliminary No growth in 1 day 03/26/18 17:33 Stool Stool Occult Blood (NORIS) - Final Hemoccult positive 03/24/18 16:30 Bronchial Washings - Left Lower Lobe Acid Fast Bacilli Smear - Final No acid fast bacilli seen 03/24/18 16:30 Bronchial Washings - Left Lower Lobe Mycobacterial Culture - Pending 03/24/18 16:30 Bronchial - Left Lower Lobe Gram Stain - Final 03/24/18 16:30 Bronchial - Left Lower Lobe Bronchial Culture - Final Klebsiella pneumoniae Multidrug Resistant 03/20/18 09:40 Blood - Line Aerobic Blood Culture - Final No growth in 5 days 03/20/18 09:40 Blood - Line Anaerobic Blood Culture - Final No growth in 5 days 03/22/18 22:00 Sputum - Endotracheal Gram Stain - Final 03/22/18 22:00 Sputum - Endotracheal Sputum Culture - Final Klebsiella pneumoniae ESBL pos Multidrug Resistant [facility] [employer]: Positive 03/24/18 16:30 Bronchial Washings - Left Lower Lobe Fungal Smear - Final No fungal elements seen 03/24/18 16:30 Bronchial Washings - Left Lower Lobe Fungal Culture - Pending Lab - Hematology Results 03/26/18 03/27/18 00:05 05:00 WBC 11.1 H 11.2 H RBC 3.50 L 3.61 L Hgb 8.3 L 8.8 L Hct 25.9 L 27.2 L MCV 74.0 L 75.3 L MCH 23.7 L 24.2 L MCHC 32.0 32.2 RDW 23.7 H 22.8 H Plt Count 181 167 MPV 9.2 9.0 Prelim Diff (Auto) Slide review pending Neut % (Auto) 90.7 H Lymph % (Auto) 4.8 L [place] % (Auto) 4.0 Eos % (Auto) 0.0 Baso % (Auto) 0.5 Neut # (Auto) 10.0 H Lymph # (Auto) 0.5 L [place] # (Auto) 0.4 Eos # (Auto) 0.0 Baso # (Auto) 0.1 WBC Differential Manual diff final Seg Neuts % (Manual) 78 H Band Neuts % (Manual) 7 H Lymphocytes % (Manual) 7 L Monocytes % (Manual) 4 Metamyelocytes % (Man) 1 Myelocytes % (Man) 3 H Abs Neuts (Manual) 9.9 H Nucleated RBCs/100 WBC 1 H Differential Comment . Platelet Estimate Normal Platelet Morphology Enlarged H Ovalocytes 1+ H Acanthocytes (Spur) Occ H Keratocytes Occ H Lab - Chemistry Results 03/25/18 03/25/18 03/25/18 19:07 20:07 21:16 Sodium Potassium Chloride Carbon Dioxide Anion Gap BUN Creatinine Estimated GFR POC Glucose 175 H 165 H 232 H Random Glucose Calcium Phosphorus Magnesium Total Bilirubin AST ALT Alkaline Phosphatase Ammonia Troponin I Total Protein Albumin 03/25/18 03/25/18 03/26/18 21:58 23:01 00:05 Sodium 148 H Potassium 3.9 Chloride 110 H Carbon Dioxide 28.9 Anion Gap 9 BUN 68 H Creatinine 2.28 H Estimated GFR 27 L POC Glucose 188 H 168 H Random Glucose 167 H Calcium 8.7 Phosphorus 5.3 H Magnesium 1.9 Total Bilirubin 1.0 AST 11 L ALT 24 Alkaline Phosphatase 82 Ammonia Troponin I 0.07 H Total Protein 5.5 L D Albumin 2.5 L 03/26/18 03/26/18 03/26/18 00:05 00:05 01:06 Sodium Potassium Chloride Carbon Dioxide Anion Gap BUN Creatinine Estimated GFR POC Glucose 172 H 175 H Random Glucose Calcium Phosphorus Magnesium Total Bilirubin AST ALT Alkaline Phosphatase Ammonia 23 Troponin I Total Protein Albumin 03/26/18 03/26/18 03/26/18 01:57 02:58 04:00 Sodium Potassium Chloride Carbon Dioxide Anion Gap BUN Creatinine Estimated GFR POC Glucose 193 H 184 H 200 H Random Glucose Calcium Phosphorus Magnesium Total Bilirubin AST ALT Alkaline Phosphatase Ammonia Troponin I Total Protein Albumin 03/26/18 03/26/18 03/26/18 04:57 05:56 06:53 Sodium Potassium Chloride Carbon Dioxide Anion Gap BUN Creatinine Estimated GFR POC Glucose 190 H 187 H 215 H Random Glucose Calcium Phosphorus Magnesium Total Bilirubin AST ALT Alkaline Phosphatase Ammonia Troponin I Total Protein Albumin 03/26/18 03/26/18 03/26/18 08:13 08:58 09:58 Sodium Potassium Chloride Carbon Dioxide Anion Gap BUN Creatinine Estimated GFR POC Glucose 221 H 213 H 209 H Random Glucose Calcium Phosphorus Magnesium Total Bilirubin AST ALT Alkaline Phosphatase Ammonia Troponin I Total Protein Albumin 03/26/18 03/26/18 03/26/18 11:07 11:59 13:10 Sodium Potassium Chloride Carbon Dioxide Anion Gap BUN Creatinine Estimated GFR POC Glucose 200 H 205 H 176 H Random Glucose Calcium Phosphorus Magnesium Total Bilirubin AST ALT Alkaline Phosphatase Ammonia Troponin I Total Protein Albumin 03/26/18 03/26/18 03/26/18 14:05 15:22 16:28 Sodium Potassium Chloride Carbon Dioxide Anion Gap BUN Creatinine Estimated GFR POC Glucose 192 H 190 H 175 H Random Glucose Calcium Phosphorus Magnesium Total Bilirubin AST ALT Alkaline Phosphatase Ammonia Troponin I Total Protein Albumin 03/26/18 03/26/18 03/26/18 17:02 18:04 19:05 Sodium Potassium Chloride Carbon Dioxide Anion Gap BUN Creatinine Estimated GFR POC Glucose 172 H 159 H 165 H Random Glucose Calcium Phosphorus Magnesium Total Bilirubin AST ALT Alkaline Phosphatase Ammonia Troponin I Total Protein Albumin 03/26/18 03/26/18 03/26/18 19:38 21:00 23:10 Sodium Potassium Chloride Carbon Dioxide Anion Gap BUN Creatinine Estimated GFR POC Glucose 156 H 141 H 141 H Random Glucose Calcium Phosphorus Magnesium Total Bilirubin AST ALT Alkaline Phosphatase Ammonia Troponin I Total Protein Albumin 03/27/18 03/27/18 03/27/18 00:58 03:08 05:00 Sodium 145 Potassium 3.2 L Chloride 107 Carbon Dioxide 24.7 Anion Gap 13 BUN 80 H Creatinine 2.26 H Estimated GFR 27 L POC Glucose 140 H 164 H Random Glucose 156 H Calcium 8.9 Phosphorus Magnesium 2.0 Total Bilirubin AST ALT Alkaline Phosphatase Ammonia Troponin I Total Protein Albumin 03/27/18 03/27/18 03/27/18 05:04 06:56 08:06 Sodium Potassium Chloride Carbon Dioxide Anion Gap BUN Creatinine Estimated GFR POC Glucose 158 H 183 H 165 H Random Glucose Calcium Phosphorus Magnesium Total Bilirubin AST ALT Alkaline Phosphatase Ammonia Troponin I Total Protein Albumin 03/27/18 03/27/18 03/27/18 09:19 10:06 11:07 Sodium Potassium Chloride Carbon Dioxide Anion Gap BUN Creatinine Estimated GFR POC Glucose 180 H 172 H 188 H Random Glucose Calcium Phosphorus Magnesium Total Bilirubin AST ALT Alkaline Phosphatase Ammonia Troponin I Total Protein Albumin 03/27/18 03/27/18 03/27/18 11:56 13:03 14:13 Sodium Potassium Chloride Carbon Dioxide Anion Gap BUN Creatinine Estimated GFR POC Glucose 164 H 174 H 175 H Random Glucose Calcium Phosphorus Magnesium Total Bilirubin AST ALT Alkaline Phosphatase Ammonia Troponin I Total Protein Albumin 03/27/18 03/27/18 03/27/18 15:06 16:00 17:00 Sodium Potassium Chloride Carbon Dioxide Anion Gap BUN Creatinine Estimated GFR POC Glucose 172 H 158 H 155 H Random Glucose Calcium Phosphorus Magnesium Total Bilirubin AST ALT Alkaline Phosphatase Ammonia Troponin I Total Protein Albumin 03/27/18 17:56 Sodium Potassium Chloride Carbon Dioxide Anion Gap BUN Creatinine Estimated GFR POC Glucose 155 H Random Glucose Calcium Phosphorus Magnesium Total Bilirubin AST ALT Alkaline Phosphatase Ammonia Troponin I Total Protein Albumin Imaging: ITS Impressions Chest CT 03/18/18 18:46 CONCLUSION: 1. Bilateral multi segmental consolidation in the mid and lower lungs and small bilateral pleural effusions. 2. Several enlarged middle mediastinal lymph nodes. Head CT 03/18/18 18:46 CONCLUSION: 1. Solitary 3 mm hyperdensity in the central [place] of uncertain significance. Differential considerations include a punctate calcification and acute hemorrhage. 2. No acute findings in the supratentorial brain. Head MRI 03/19/18 00:00 CONCLUSION: 1. No evidence of brainstem hemorrhage. 2. Small foci of encephalomalacia in the left occipital lobe and right cerebellum 3. No evidence of acute infarct, hemorrhage, mass or edema. 4. No evidence of enhancing intra-axial or extra-axial lesions. Venous Doppler Study 03/19/18 00:00 CONCLUSION: The study is negative for bilateral lower extremity deep venous thrombosis. Foot X-Ray 03/22/18 00:00 CONCLUSION: No acute bony destructive change. Previous amputations as above. Fairly marked soft tissue swelling of the forefoot. Chest X-Ray 03/25/18 06:00 CONCLUSION: 1. Stable biapical airspace disease with left basilar consolidation and possible effusion. 2. Stable position of life-support tubes. Abdomen X-Ray 03/26/18 00:00 CONCLUSION: Physical Exam: no acute distress, morbidly obese Head: Present: normocephalic, atraumatic, prominent facial swelling Eye: Present: marked periorbital swelling no scleral icterus ENT: Present: mucous membranes moist, oropharynx clear NECK: trachea midline LUNGs: patient mechanically ventilated, clear Cardiovascular : RRR, S1, S2 no murmurs, rubs , gallops Abdominal : soft, markeldy distended no reaction to palpation, no audfible bowel sounds no palpable organomegaly liquid stool in rectal collection system : hernandez in place hernandez in place with small amount of clear yellow urine Extremities: edema 4+, anasarca Skin : intact, dry, no rash well perfused Neurological : sedated Psychiatric : unable to assess LINE: R IJ in place - OK Assessment and Plan - Plan sp cardiac arrest Anaerobic sepsis; veillonella ? source : GI vs osteo Xrays negative, CT/MR not feasible 2/ clincial cond'n Acute VDRF PNA, ESBL/ ? [facility] Kleb R to zerbaxa, S acvycaz and vabomere YOU with worsening renal fnx ? New sepsis: HD instability; hypothermic, now fever - - when feasible CT A/P - MRI when feasible - cont Flagyl 500 q 6 for anaerobic sepsis - cont avycaz repeat creatinine - if improves will up the dose micro to chk sens fu BC fu UA, C+S will add micafungin jeanne RN
[2018-03-27] MEDS: Micafungin Inj 150 MG in Sodium Chlor 0.9% Inj 100 ML IV.SIG SCH (21:04)
[2018-03-28] MEDS: Ceftazidime/Avibactam Inj 0.94 GM in Sodium Chlor 0.9% Inj 50 ML IV.SIG SCH ×2 (00:21→11:34)
[2018-03-28] MEDS: Oral Hygiene Kit OROPHARYNG SCH ×5 (00:21→17:34)
[2018-03-28] MEDS: Hypromellose 0.3% Opth Gel 10 GM Bottle EACH EYE SCH ×3 (03:00→18:12)
[2018-03-28] MEDS: QUEtiapine 25 MG Tablet PO SCH ×3 (05:36→22:44)
[2018-03-28 06:39] LABS: Hematocrit 27.2 % (35.0-46.0); Hemoglobin 8.8 gm/dL (11.6-15.3); Mean Corpuscular HGB Conc 32.2 % (32.0-36.0); Mean Corpuscular Hemoglobin 24.3 pg (27.0-34.0); Mean Corpuscular Volume 75.5 fL (80.0-100.0); Mean Platelet Volume 9.9 fL (7.0-11.0); Platelet Count 201 th/mm3 (150-450); Red Blood Count 3.61 mil/mm3 (4.00-5.30); Red Cell Distribution Width 23.5 % (11.6-17.2); White Blood Count 18.4 th/mm3 (4.0-11.0)
[2018-03-28 06:50] LABS: Activated Partial Thrombo Time 44.3 sec (24.3-30.1); INR 1.4 Ratio
[2018-03-28 07:04] LABS: Calcium 8.6 mg/dL (8.5-10.1); Carbon Dioxide 27.6 meq/L (21.0-32.0); Magnesium 1.9 mg/dL (1.5-2.5); Potassium 3.8 meq/L (3.5-5.1)
[2018-03-28] MEDS: Chlorhexidine 0.12% Oral Kit 15 ML UDC OROPHARYNG SCH ×2 (09:15→22:44)
[2018-03-28] MEDS: Famotidine 20 MG Tablet PO SCH ×2 (09:16→22:43)
[2018-03-28] MEDS: amLODIPine 10 MG Tablet PO SCH (09:16)
[2018-03-28] MEDS: Lipase/Protease/Amylase 24/76/120 DR Capsule PO SCH ×3 (09:16→17:35)
[2018-03-28] MEDS: MethylPREDNISolone Sod Succinate Inj 40 MG/ML Vial IV.PUSH SCH ×2 (09:17→22:44)
[2018-03-28] MEDS: Carvedilol 6.25 MG Tablet PO SCH (09:17)
[2018-03-28] MEDS: Senna/Docusate Sodium 8.6/50 MG Tablet PO SCH ×2 (09:17→22:43)
[2018-03-28] MEDS: Midazolam 50 MG/50 ML Inj 50 MG/50 ML BAG IV.CONT PRN ×4 (09:19→22:58)
--- NOTE | 2018-03-28 10:52 | P.PNADD ---
Addendum to Inpatient Note Additional information: Pt was seen and examined Full note to follow
[2018-03-28] MEDS: Heparin Drip 25,000 UNIT/250 ML BAG IV.CONT PRN (11:40)
--- NOTE | 2018-03-28 12:40 | P.PNCC ---
Subjective Subjective Remarks/Hospital Course: 52-year-old female with past medical history of diabetes mellitus, hypertension, hyperlipidemia, atrial fibrillation on chronic anticoagulation with warfarin, chronic diastolic heart failure, asthma, WISAM, peripheral vascular disease, super morbid obesity. She has been at [facility] since 03/02/18. Abeba JACOBO was called due to respiratory distress. When they arrived as she was found to be in respiratory distress with sats in the 70s. She was communicating with them and reportedly said "leave me alone". She then had PEA arrest. She received CPR reportedly 10-15 minutes and received 2 doses of epinephrine. LMA was placed by EVAC. LMA was removed and she was intubated by Dr. Daly after receiving etomidate 20 mg IV and succinylcholine. She has demonstrated purposeful movements post intubation, and is now on a propofol drip. She was [place] [facility] [place] due to hypoglycemia, fall after isolated episode of diarrhea, hypoxia requiring HFNC. She has chronic interstitial changes on CXR. Reviewed records from [facility] which indicate she completed a 7 day course of Levaquin and has been on a prednisone taper. Current CXR shows bibasilar opacities. WBC is 16 ( previously 7.9). She has acute hypercapneic and hypoxemic respiratory failure. 03/19: Afebrile. Remains on 100% FiO2 PEEP of 12. Central has been placed for access due to multiple drips. Plan MRI brain today if respiratory status improves. Does not tolerate lying flat. Likely will need epoprostenol and rotaprone 03/20: Started on epoprostenol and currently on a rotor from bed. Currently on cisatracurium drip at 1 mcg/kg/min. Diuresing well. 03/21: Weaning down epoprostenol. Remains on cisatracurium drip at 6 mcg/kg/ min. Diuresis 6 L. Saturation was improved FiO2 down to 45%. 03/22: Hypothermic overnight. Currently euthermic. Excellent response to bumetanide drip. FiO2 down to 40%. PEEP down to 8. Possible discontinue paralytic agent today. 03/23: Resting comfortable in bed in no acute distress. Afebrile. Desaturated so placed back on rotor prone bed. Creatinine slowly increasing. 03/24: Afebrile. Worsening chest x-ray it appears to be volume overloaded again. +10 L past 24 hours. Will restart on bumetanide drip. Plan for bronchoscopy today. Switch to ceftazidime/avibactam secondary to ESBL positive Klebsiella pneumonia SUBJECTIVE 03/25: FiO2 to 55%. Tolerating demanding drip with -2 L past 24 hours. Bronchoscopy results pending. Positive BM. Restarting tube feeding today 03/26: Cr continues to rise, although clinically continues to appear severely volume overloaded. fio2 70%. supine all night. off nimbex. off flolan. ID managing ESBL/MDRO/KPC Klebsiella and anaerobic bacteremia. 03/27: off rotaprone bed. multiple desat episodes overnight. on 100% fio2 and PEEP 10 this AM. good diuresis with net -2L/24h. bumex drip continues. awakens and follows commands. 03/28: not diuresing as well as yesterday. wbc uptrending. 2 more episodes of bradycardia, not associated with hypoxia. however, fio2 remains severely elevated. I increased her peep to 14. still arouses and moves all extremities. high concern for ongoing infectious etiology, but with high o2 requirements and intermittent bradycardia requiring atropine, at present too unstable for repeat imaging. Objective Vital Signs / I&O: Vital Signs 03/27/18 12:48 03/27/18 14:00 03/27/18 15:40 Temperature Pulse Rate 60 59 L 60 Respiratory Rate 16 16 Blood Pressure Pulse Oximetry 99 03/27/18 15:41 03/27/18 16:00 03/27/18 18:00 Temperature 37.3 C Pulse Rate 59 L 58 L Respiratory Rate 16 16 Blood Pressure 116/47 L Pulse Oximetry 100 100 03/27/18 20:00 03/27/18 20:20 03/27/18 22:00 Temperature 37.2 C Pulse Rate 64 60 64 Respiratory Rate 17 19 Blood Pressure 147/65 H Pulse Oximetry 100 100 03/28/18 00:00 03/28/18 00:02 03/28/18 01:33 Temperature 37.4 C Pulse Rate 66 65 Respiratory Rate 17 16 18 Blood Pressure 161/75 H Pulse Oximetry 100 100 03/28/18 02:00 03/28/18 03:47 03/28/18 04:00 Temperature 37.2 C Pulse Rate 70 59 L 79 Respiratory Rate 18 17 Blood Pressure 156/79 H Pulse Oximetry 98 100 03/28/18 06:00 03/28/18 07:37 03/28/18 11:15 Temperature Pulse Rate 66 72 Respiratory Rate 16 16 Blood Pressure Pulse Oximetry 100 98 03/28/18 11:22 Temperature Pulse Rate 56 L Respiratory Rate 18 Blood Pressure Pulse Oximetry Intake & Output 03/27/18 03/28/18 03/28/18 18:59 06:59 18:59 Intake Total 2288 / 2288 1470 / 1470 250 / 250 Output Total 1950 / 1950 2150 / 2150 Balance 338 / 338 -680 / -680 250 / 250 Weight 138 kg Intake: IV 1500 / 1500 650 / 650 250 / 250 Precedex Inj 200 MCG In NS Inj 50 / 50 48 ML @ 0.2 MCG/KG/HR 6.53 mls/ hr IV.CONT TITRATE PRN Rx#: [id number] Heparin/D5W 25,000 U/250 mL 25, 250 / 250 250 / 250 000 unit In 250 ml @ 1,000 UNITS/HR 10 mls/hr IV.CONT TITRATE PRN Rx#:[id number] NovoLIN R (IV Infusion) 100 100 / 100 UNIT In NS Inj 99 ML @ Per Protocol IV.CONT TITRATE PRN Rx #:[id number] Versed Inj 50 mg In 50 ml @ 2 100 / 100 200 / 200 MG/HR 2 mls/hr IV.CONT TITRATE PRN Rx#:[id number] Cardene Inj 25 MG In NS Inj 240 250 / 250 ML @ 5 MG/HR 50 mls/hr IV.CONT TITRATE PRN Rx#:[id number] Flexbumin 25% Inj 100 ML @ 12.5 100 / 100 mls/hr IV.SIG Q8H JACKI Rx#: [id number] Avycaz Inj 0.94 GM In NS Inj 50 50 / 50 50 / 50 ML @ 25 mls/hr IV.SIG Q12H JACKI Rx#:[id number] Mycamine Inj 150 MG In NS Inj 100 / 100 100 ML @ 100 mls/hr IV.SIG Q24H JACKI Rx#:[id number] KCl 20 mEq Premix Inj 20 meq In 400 / 400 100 ml @ 50 mls/hr IV.SIG Q2H JACKI Rx#:[id number] Flagyl 500 MG Inj 100 ML @ 100 300 / 300 200 / 200 mls/hr IV.SIG Q6H ON LICENSE OF [facility] Rx#: [id number] Tube Feeding 188 / 188 220 / 220 Water Bolus Amount 600 / 600 600 / 600 Output: Stool 100 / 100 50 / 50 Urine Amount (Catheter) 1849 Indwelling Urethral Catheter 1849 Other: Date of Last Bowel Movement 03/27/18 03/27/18 Result Diagrams: 03/28/18 05:35 03/28/18 05:35 Objective Remarks: GENERAL: 52-year-old female patient with an elevated BMI who is lying in bed orotracheally intubated. SKIN: Intertriginous lesion with erythema and satellite lesions under left breast. Skin breakdown over medial aspect of left ankle. Skin abrasion from bed/roto-prone over bilateral cheeks. HEAD: Atraumatic. Normocephalic. EYES: bilateral pupils sluggishly reactive. No scleral icterus. No injection or drainage. ENT: No nasal bleeding or discharge. Mucous membranes pink and moist. Tongue and lip/oral mucosa is swollen and edematous.. Covered with Vaseline gauze. NECK: Trachea midline. No JVD. CARDIOVASCULAR: RRR. sinus. RESPIRATORY: Diminished bibasilar with no appreciable rales. Scattered rhonchi bilaterally. GASTROINTESTINAL: Abdomen obese, soft, non-tender, nondistended OG in place. 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 Legs revealed 2+ pitting edema bilateral lower extremities. NEUROLOGICAL: RASS -2/-3. awakens and follows intermittent commands. moves all extremities. Assessment and Plan - Assessment and Plan Plan: Assessment: 52yF with severe ARDS and organ failure secondary to MDRO/ESBL/KPC Klebsiella and Veillonella bacteremia. remains very critically ill. forced diuresis continues. volume overload persists. hypoxia is refractory and difficult to control: again, likely multifactorial from chronic disease states, volume overload, and severe ARDS. Bradycardia likely secondary to vagal tone with coughing/positioning changes. will increase our anticholinergic dose. hold carvedilol. remains critically ill and worse today than yesterday. NEURO/PSYCH: Acute encephalopathy - secondary to hypercapnia, improving. Abnormal brain CT with 3 mm hyperdensity in central [place] Major depressive disorder NOS Chronic opioid use Encephalomalacia right cerebellum/left occipital lobe scheduled oxycodone 20mg po q4h seroquel 50mg po q8h for delirium. versed and fentanyl for goal RASS -2. Followup CT brain - . Solitary 3 mm hyperdensity in the central [place] of uncertain significance. Differential considerations include a punctate calcification and acute hemorrhage MRI brain left occipital lobe and right cerebellum. She does not meet criteria for induced therapeutic hypothermia because she is following commands post CPR. Holding nabumetone 500 mg twice daily, methocarbamol 750 mg 4 times daily and oxycodone 10 mg every 6 hours Holding gabapentin 200 mg 3 times daily Holding tizanidine 4 mg 3 times daily RESP: Acute hypercapnic and hypoxemic respiratory failure Severe ARDS Acute asthma exacerbation Healthcare associated pneumonia WISAM/OHS Prior tobacco abuse Bilateral pleural effusions right 2.2 cm. Left 1.3 cm LMA was placed in the field by EVAC. Intubated in ED 03/18 Ventilator bundle On albuterol/ipratropium aerosols every 4 hours with albuterol aerosols every 2 hours as needed for dyspnea Weaned off epoprostenol 03/23 Spontaneous breathing trials when clinically indicated. Not today. CT thorax revealed right middle lobe/lower lobe consolidation left lower lobe consolidation. Right pleural effusion 2.2 cm. Left pleural effusion 1.3 cm Methylprednisolone succinate 40 mg IV every 12 hours. Antibiotics as per below. CXR still with pulmonary edema superimposed on ARDS. CV: Hypertension- worsening Hyperlipidemia Chronic diastolic heart failure Paroxysmal atrial fibrillation on chronic anti-coagulation with warfarin Peripheral vascular disease/peripheral arterial disease Elevated troponin Holding home medication of clonidine 0.1 mg every 6 hours nifedipine 90 mg daily. Continue carvedilol 6.25 mg twice daily with holding parameters for bradycardia Holding furosemide 20 mg p.o. daily 2D echo 02/24/18ejection fraction 50%. Wall thickness upper limits of normal. Trace MR. Lactic acid cleared Continue atorvastatin 40 mg daily Doppler bilateral upper and lower extremities with subtherapeutic INR revealed no acute thrombus heparin drip. intermittent bradycardia prevents restarting home clonidine hold carvedilol amlodipine 10mg po daily hydralazine 100mg po q8h increase glycopyrrolate to 2mg po q6h. GI: History of GERD Chronic pancreatitis insufficiency Hypoalbuminemia vital high-protein goal 55 cc an hour per GIs recommendation Famotidine for GI prophylaxis Docusate sodium/senna 1 tablet twice daily for bowel regimen Creon home medication 3 times daily FEN/RENAL: Acute kidney injury superimposed on CKD Chronic kidney disease stage III Hypernatremia Hypokalemia Acute severe intravascular volume overload with pulmonary edema [place] catheter was placed in the emergency department. Monitor intake and output. Monitor electrolytes and replace as indicated Free water to 300 every 4 hours. Creatinine is slowly rising. Diuretic plan: continue bumex at 0.25mg/hr continues drip diamox 500mg iv q8h continuous albumin infusion to maintain intravascular volume. ID: Acute healthcare associated pneumonia -ESBL positive Klebsiella pneumonia Veillonella species bacteremia Metronidazole 500 every 6 hours, ceftazidime/avibactam day #4 Discontinue piperacillin/tazobactam 03/24 Discontinue 03/22 cefepime 2 g IV every 12 hours, azithromycin 500 mg daily and vancomycin Consultation to ID workup Veillonella species bacteremia Blood cultures 2 03/18 Veillonella spp. Repeat 03/20 no growth to date Sputum, ESBL positive Klebsiella pneumonia Pneumococcal urinary antigens, influenza a and B and chlamydia and mycoplasma all pending/negative HEME: Leukocytosis Chronic anemia/normocytic Chronic anti-coagulation with warfarin 4 mg daily. INR target is 2-3. Monitor CBC daily. Follow trends No indication for transfusion of blood products at this time. Discontinued heparin drip 03/22, restarted 03/26. heparin drip ENDO: Diabetes mellitus History of gout Currently on insulin drip to maintain euglycemia. Holding glipizide 10 mg twice daily and insulin glargine/home medication Holding allopurinol 300 mg daily/home medication MSK: Elevated BMI Osteoporosis/osteoarthritis PT evaluate and treat Okay to hold cholecalciferol 5000 units daily PROPH: SCDs for DVT prophylaxis. Heparin drip ACCESS: Right IJ CVL placed 03/19. Right axillary arterial line placed 03/19. Critical care time 39 minutes, exclusive of separately billed procedures.
--- NOTE | 2018-03-28 17:27 | P.PNID ---
Subjective Remarks: remains critical off pressors High residuals liquid stool C.diff negative On 85% FiO2/[address] to have [address] A/P Antibiotics: avicaz flagyl micafungin Allergies/Adverse Reactions: Allergies ibuprofen Allergy (Severe, Verified 03/18/18 17:58) MESSES WITH KIDNEYS Sulfa (Sulfonamide Antibiotics) Allergy (Severe, Verified 03/18/18 17:58) HIVES egg Allergy (Intermediate, Verified 03/18/18 17:58) Very Upset Stomach milk Allergy (Unknown, Verified 03/18/18 17:58) Heartburn Objective Vital Signs 03/27/18 18:00 03/27/18 20:00 03/27/18 20:20 Temperature 99 F Pulse Rate 58 L 64 60 Respiratory Rate 17 19 Blood Pressure 147/65 H Pulse Oximetry 100 100 03/27/18 22:00 03/28/18 00:00 03/28/18 00:02 Temperature 99.3 F Pulse Rate 64 66 65 Respiratory Rate 17 16 Blood Pressure 161/75 H Pulse Oximetry 100 100 03/28/18 01:33 03/28/18 02:00 03/28/18 03:47 Temperature Pulse Rate 70 59 L Respiratory Rate 18 18 Blood Pressure Pulse Oximetry 98 03/28/18 04:00 03/28/18 06:00 03/28/18 07:37 Temperature 98.9 F Pulse Rate 79 66 72 Respiratory Rate 17 16 Blood Pressure 156/79 H Pulse Oximetry 100 100 03/28/18 11:15 03/28/18 11:22 03/28/18 15:06 Temperature Pulse Rate 56 L Respiratory Rate 16 18 16 Blood Pressure Pulse Oximetry 98 100 03/28/18 15:08 Temperature Pulse Rate 62 Respiratory Rate 16 Blood Pressure Pulse Oximetry Intake & Output 03/27/18 03/28/18 03/28/18 18:59 06:59 18:59 Intake Total 2288 / 2288 1470 / 1470 450 / 450 Output Total 1950 / 1950 2150 / 2150 Balance 338 / 338 -680 / -680 450 / 450 Weight 138 kg Intake: IV 1500 / 1500 650 / 650 450 / 450 Precedex Inj 200 MCG In NS Inj 50 / 50 48 ML @ 0.2 MCG/KG/HR 6.53 mls/ hr IV.CONT TITRATE PRN Rx#: [id number] Heparin/D5W 25,000 U/250 mL 25, 250 / 250 250 / 250 000 unit In 250 ml @ 1,000 UNITS/HR 10 mls/hr IV.CONT TITRATE PRN Rx#:[id number] NovoLIN R (IV Infusion) 100 100 / 100 UNIT In NS Inj 99 ML @ Per Protocol IV.CONT TITRATE PRN Rx #:[id number] Versed Inj 50 mg In 50 ml @ 2 100 / 100 200 / 200 50 / 50 MG/HR 2 mls/hr IV.CONT TITRATE PRN Rx#:[id number] Cardene Inj 25 MG In NS Inj 240 250 / 250 ML @ 5 MG/HR 50 mls/hr IV.CONT TITRATE PRN Rx#:[id number] Flexbumin 25% Inj 100 ML @ 12.5 100 / 100 mls/hr IV.SIG Q8H JACKI Rx#: [id number] Avycaz Inj 0.94 GM In NS Inj 50 50 / 50 50 / 50 50 / 50 ML @ 25 mls/hr IV.SIG Q12H JACKI Rx#:[id number] Mycamine Inj 150 MG In NS Inj 100 / 100 100 ML @ 100 mls/hr IV.SIG Q24H JACKI Rx#:[id number] KCl 20 mEq Premix Inj 20 meq In 400 / 400 100 ml @ 50 mls/hr IV.SIG Q2H JACKI Rx#:[id number] Flagyl 500 MG Inj 100 ML @ 100 300 / 300 200 / 200 100 / 100 mls/hr IV.SIG Q6H JACKI Rx#: [id number] Tube Feeding 188 / 188 220 / 220 Water Bolus Amount 600 / 600 600 / 600 Output: Stool 100 / 100 50 / 50 Urine Amount (Catheter) [id number] 2099 Indwelling Urethral Catheter 1849 Other: Date of Last Bowel Movement 03/27/18 03/27/18 03/26/18 16:21 Catheterized Urine Urine Culture - Final No growth in 48 hours 03/26/18 15:51 Blood - Peripheral Aerobic Blood Culture - Preliminary No growth in 2 days 03/26/18 15:51 Blood - Peripheral Anaerobic Blood Culture - Preliminary No growth in 2 days 03/26/18 14:39 Blood - Peripheral Aerobic Blood Culture - Preliminary No growth in 2 days 03/26/18 14:39 Blood - Peripheral Anaerobic Blood Culture - Preliminary No growth in 2 days 03/26/18 17:33 Stool Stool Occult Blood (NORIS) - Final Hemoccult positive 03/24/18 16:30 Bronchial Washings - Left Lower Lobe Acid Fast Bacilli Smear - Final No acid fast bacilli seen 03/24/18 16:30 Bronchial Washings - Left Lower Lobe Mycobacterial Culture - Pending 03/24/18 16:30 Bronchial - Left Lower Lobe Gram Stain - Final 03/24/18 16:30 Bronchial - Left Lower Lobe Bronchial Culture - Final Klebsiella pneumoniae Multidrug Resistant Lab - Hematology Results 03/27/18 03/28/18 05:00 05:35 WBC 11.2 H 18.4 H RBC 3.61 L 3.61 L Hgb 8.8 L 8.8 L Hct 27.2 L 27.2 L MCV 75.3 L 75.5 L MCH 24.2 L 24.3 L MCHC 32.2 32.2 RDW 22.8 H 23.5 H Plt Count 167 201 MPV 9.0 9.9 Lab - Chemistry Results 03/26/18 03/26/18 03/26/18 18:04 19:05 19:38 Sodium Potassium Chloride Carbon Dioxide Anion Gap BUN Creatinine Estimated GFR POC Glucose 159 H 165 H 156 H Random Glucose Calcium Magnesium 03/26/18 03/26/18 03/27/18 21:00 23:10 00:58 Sodium Potassium Chloride Carbon Dioxide Anion Gap BUN Creatinine Estimated GFR POC Glucose 141 H 141 H 140 H Random Glucose Calcium Magnesium 03/27/18 03/27/18 03/27/18 03:08 05:00 05:04 Sodium 145 Potassium 3.2 L Chloride 107 Carbon Dioxide 24.7 Anion Gap 13 BUN 80 H Creatinine 2.26 H Estimated GFR 27 L POC Glucose 164 H 158 H Random Glucose 156 H Calcium 8.9 Magnesium 2.0 03/27/18 03/27/18 03/27/18 06:56 08:06 09:19 Sodium Potassium Chloride Carbon Dioxide Anion Gap BUN Creatinine Estimated GFR POC Glucose 183 H 165 H 180 H Random Glucose Calcium Magnesium 03/27/18 03/27/18 03/27/18 10:06 11:07 11:56 Sodium Potassium Chloride Carbon Dioxide Anion Gap BUN Creatinine Estimated GFR POC Glucose 172 H 188 H 164 H Random Glucose Calcium Magnesium 03/27/18 03/27/18 03/27/18 13:03 14:13 15:06 Sodium Potassium Chloride Carbon Dioxide Anion Gap BUN Creatinine Estimated GFR POC Glucose 174 H 175 H 172 H Random Glucose Calcium Magnesium 03/27/18 03/27/18 03/27/18 16:00 17:00 17:56 Sodium Potassium Chloride Carbon Dioxide Anion Gap BUN Creatinine Estimated GFR POC Glucose 158 H 155 H 155 H Random Glucose Calcium Magnesium 03/27/18 03/27/18 03/27/18 19:16 19:57 20:00 Sodium Potassium 3.9 Chloride Carbon Dioxide Anion Gap BUN Creatinine Estimated GFR POC Glucose 150 H 116 H Random Glucose Calcium Magnesium 03/27/18 03/27/18 03/28/18 22:13 23:29 01:18 Sodium Potassium Chloride Carbon Dioxide Anion Gap BUN Creatinine Estimated GFR POC Glucose 145 H 151 H 128 H Random Glucose Calcium Magnesium 03/28/18 03/28/18 03/28/18 02:36 05:04 05:35 Sodium 146 H Potassium 3.8 Chloride 107 Carbon Dioxide 27.6 Anion Gap 11 BUN 82 H Creatinine 2.31 H Estimated GFR 27 L POC Glucose 137 H 121 H Random Glucose 118 H Calcium 8.6 Magnesium 1.9 03/28/18 03/28/18 03/28/18 06:24 09:14 11:28 Sodium Potassium Chloride Carbon Dioxide Anion Gap BUN Creatinine Estimated GFR POC Glucose 132 H 122 H 122 H Random Glucose Calcium Magnesium 03/28/18 03/28/18 14:01 17:00 Sodium Potassium Chloride Carbon Dioxide Anion Gap BUN Creatinine Estimated GFR POC Glucose 116 H 115 H Random Glucose Calcium Magnesium Imaging: ITS Impressions Chest CT 03/18/18 18:46 CONCLUSION: 1. Bilateral multi segmental consolidation in the mid and lower lungs and small bilateral pleural effusions. 2. Several enlarged middle mediastinal lymph nodes. Head CT 03/18/18 18:46 CONCLUSION: 1. Solitary 3 mm hyperdensity in the central [place] of uncertain significance. Differential considerations include a punctate calcification and acute hemorrhage. 2. No acute findings in the supratentorial brain. Head MRI 03/19/18 00:00 CONCLUSION: 1. No evidence of brainstem hemorrhage. 2. Small foci of encephalomalacia in the left occipital lobe and right cerebellum 3. No evidence of acute infarct, hemorrhage, mass or edema. 4. No evidence of enhancing intra-axial or extra-axial lesions. Venous Doppler Study 03/19/18 00:00 CONCLUSION: The study is negative for bilateral lower extremity deep venous thrombosis. Foot X-Ray 03/22/18 00:00 CONCLUSION: No acute bony destructive change. Previous amputations as above. Fairly marked soft tissue swelling of the forefoot. Chest X-Ray 03/25/18 06:00 CONCLUSION: 1. Stable biapical airspace disease with left basilar consolidation and possible effusion. 2. Stable position of life-support tubes. Abdomen X-Ray 03/26/18 00:00 CONCLUSION: Physical Exam: no acute distress, morbidly obese Head: Present: normocephalic, atraumatic, prominent facial swelling Eye: Present: improved periorbital swelling no scleral icterus ENT: Present: mucous membranes moist, oropharynx clear NECK: trachea midline LUNGs: patient mechanically ventilated, clear Cardiovascular : RRR, S1, S2 no murmurs, rubs , gallops Abdominal : soft, seems to be less distended no reaction to palpation, no audfible bowel sounds no palpable organomegaly liquid stool in rectal collection system : hernandez in place hernandez in place with small amount of clear yellow urine Extremities: edema 4+, anasarca Skin : intact, dry, no rash well perfused Neurological : sedated Psychiatric : unable to assess LINE: R IJ in place - OK Assessment and Plan - Plan sp cardiac arrest Anaerobic sepsis; veillonella ? source : GI vs osteo Xrays negative, CT/MR not feasible 2/2 clincial cond'n Acute VDRF PNA, ESBL/ ? KPC Kleb R to zerbaxa, S acvycaz and vabomere YOU with worsening renal fnx ? New sepsis: HD instability; hypothermic, now fever - - when feasible CT A/P - MRI when feasible - cont Flagyl 500 q 6 for anaerobic sepsis - cont avycaz repeat creatinine - if improves will up the dose micro to chk sens fu BC fu UA, C+S will add micafungin dw RN jeanne Hollis
[2018-03-28] MEDS: Micafungin Inj 150 MG in Sodium Chlor 0.9% Inj 100 ML IV.SIG SCH (18:12)
--- NOTE | 2018-03-28 21:51 | CT ---
EXAM DATE: 03/28/2018 9:44 PM EDT AGE/SEX: 52 years / Female INDICATIONS: Unknown fever of origin. Evaluate for abscess. CLINICAL DATA: This is the patient's initial encounter. Patient reports that signs and symptoms have been present for 4 - 6 days and indicates a pain score of Nonresponsive. MEDICAL/SURGICAL HISTORY: Cardiovascular disease. Hypertension. Diabetes mellitus type II. No ne. RADIATION DOSE: 23.90 CTDI (mGy) ; Combined studies COMPARISON: [facility], CT ABDOMEN & PELVIS W/O CONTRAST, 02/20/2018. . TECHNIQUE: Multiple contiguous axial images were obtained through the abdomen. Images were obtained using multiple row detector helical technique. Using automated exposure control and adjustment of the mA and/or kV according to patient size, radiation dose was kept as low as reasonably achievable to o btain optimal diagnostic quality images. DICOM format image data is available electronically for rev iew and comparison. FINDINGS: Small trace bilateral pleural effusions with compressive atelectasis in both bases. Trace ascites is evident. Liver is free of focal defects. Gallstones are noted in a benign-appearing gallbladder Spleen and pancreas unremarkable. Nasogastric tube in the stomach Small 1 cm left adrenal nodule Kidney is unremarkable without stone or mass. The pelvis there are no inflammatory changes. Trace fluid is evident. I see no definite colitis Generalized anasarca Degenerative changes lumbar spine. CONCLUSION: 1. Minimal increase in the trace bilateral pleural effusions with compressive atelectasis in both ba ses. 2. Gallstones in a benign-appearing gallbladder 3. I don't see evidence for colitis. 4. I don't see inflammatory changes in the abdomen. Electronically signed by: Sarmad Timmons MD 03/28/2018 9:50 PM EDT
--- NOTE | 2018-03-28 21:53 | CT ---
EXAM DATE: 03/28/2018 9:44 PM EDT AGE/SEX: 52 years / Female INDICATIONS: Evaluate for pleurally effusions. CLINICAL DATA: This is the patient's initial encounter. Patient reports that signs and symptoms have been present for 4 - 6 days and indicates a pain score of Nonresponsive. MEDICAL/SURGICAL HISTORY: Cardiovascular disease. Hypertension. Diabetes mellitus type II. None. RADIATION DOSE: 23.90 CTDI (mGy) ; Combined studies COMPARISON: C, CT CHEST W CONTRAST, 03/18/2018. . TECHNIQUE: Multiple contiguous axial images were obtained through the chest without contrast. Image s were obtained in suspended respiration using multiple row detector helical technique. Using automa jia exposure control and adjustment of the mA and/or kV according to patient size, radiation dose was kept as low as reasonably achievable to obtain optimal diagnostic quality images. DICOM format imag e data is available electronically for review and comparison. FINDINGS: Coarse interstitial changes are present in both lungs with minimal compressive atelectasis at both ba ses. Trace pleural effusion is noted bilaterally slightly larger on the right than the left. There is biventricular cardiomegaly without pericardial effusion. There is no axillary adenopathy. Stable mediastinal adenopathy is evident. Upper abdominal contents are unremarkable. CONCLUSION: 1. Biventricular cardiomegaly with coarse interstitial changes in both lungs. A component of this co uld be failure 2. Trace bilateral pleural effusions larger on the right.. These have decreased slightly in the inte rval. Electronically signed by: Sarmad Timmons MD 03/28/2018 9:51 PM EDT
--- NOTE | 2018-03-28 22:40 | MR ---
EXAM DATE: 03/28/2018 10:20 PM EDT AGE/SEX: 52 years / Female INDICATIONS: Osteomyelitis. Wound across base of all five toes. CLINICAL DATA: This is the patient's initial encounter. Patient reports that signs and symptoms have been present for 1 week and indicates a pain score of Nonresponsive. MEDICAL/SURGICAL HISTORY: Hypertension. Diabetes mellitus type II. Renal failure, chronic. To nsillectomy. Left foot toes amputation, Popliteal tibial bypass. COMPARISON: [facility] [place], MRI FOOT LEFT W & W/O CONTRAST, 07/13/2017. . TECHNIQUE: Multiplanar, multisequence MRI examination was performed without contrast. FINDINGS: There is marked soft tissue swelling the bandage on the ventral surface of the foot. Marrow appears reasonably homogeneous without obvious replacement. Marrow signal in the tarsals and c alcaneus appears homogeneous. CONCLUSION: 1. Difficult exam to interpret because of extensive soft tissue swelling. No obvious osteomyelitis. 2. Nuclear medicine tagged white cell study may help. Electronically signed by: Sarmad Timmons MD 03/28/2018 10:38 PM EDT
[2018-03-28] MEDS ORDERED: Metoprolol Inj 5 MG/5 ML Vial IV.PUSH ONE (22:45)
[2018-03-28] MEDS ORDERED: Albumin Human 5% Inj 500 ML IV.SIG ONE (23:00)
[2018-03-28] MEDS: Metoprolol Inj 5 MG/5 ML Vial IV.PUSH SCH ×2 (23:02→23:11)
[2018-03-29] MEDS ORDERED: fentaNYL Citrate Inj 100 MCG/2 ML Ampul IV.PUSH ONE (00:30)
[2018-03-29] MEDS: Oral Hygiene Kit OROPHARYNG SCH ×5 (00:41→23:21)
[2018-03-29] MEDS: Ceftazidime/Avibactam Inj 0.94 GM in Sodium Chlor 0.9% Inj 50 ML IV.SIG SCH ×2 (00:41→16:52)
[2018-03-29] MEDS: fentaNYL 10 mcg/mL Premix Drip 2,500 MCG/250 ML BAG IV.SIG PRN ×2 (00:42→13:46)
[2018-03-29] MEDS: Midazolam 50 MG/50 ML Inj 50 MG/50 ML BAG IV.CONT PRN ×6 (01:22→19:00)
[2018-03-29 04:45] LABS: Hematocrit 27.6 % (35.0-46.0); Hemoglobin 8.9 gm/dL (11.6-15.3); Mean Corpuscular HGB Conc 32.2 % (32.0-36.0); Mean Corpuscular Hemoglobin 24.4 pg (27.0-34.0); Mean Corpuscular Volume 75.7 fL (80.0-100.0); Mean Platelet Volume 9.7 fL (7.0-11.0); Platelet Count 214 th/mm3 (150-450); Red Blood Count 3.65 mil/mm3 (4.00-5.30); Red Cell Distribution Width 23.4 % (11.6-17.2)
[2018-03-29 04:55] LABS: INR 1.4 Ratio; Prothrombin Time 14.2 sec (9.8-11.6)
[2018-03-29 05:09] LABS: Calcium 8.9 mg/dL (8.5-10.1); Carbon Dioxide 25.8 meq/L (21.0-32.0); Magnesium 1.8 mg/dL (1.5-2.5); Potassium 3.5 meq/L (3.5-5.1)
[2018-03-29] MEDS: QUEtiapine 25 MG Tablet PO SCH ×3 (05:53→21:14)
[2018-03-29] MEDS: Hypromellose 0.3% Opth Gel 10 GM Bottle EACH EYE SCH ×3 (05:54→18:19)
[2018-03-29] MEDS ORDERED: Dextrose 50% in Water 50 ML Vial IV.PUSH PRN (07:18)
[2018-03-29] MEDS ORDERED: DOBUTamine 250 MG/250 ML Premx 250 MG/250 ML BAG IV.CONT SCH (08:00)
[2018-03-29] MEDS: Insulin NovoLIN Regular Correctional Sugar Inj SQ SCH ×5 (08:00→23:21)
--- NOTE | 2018-03-29 08:00 | P.PNCC ---
Subjective Subjective Remarks/Hospital Course: 52-year-old female with past medical history of diabetes mellitus, hypertension, hyperlipidemia, atrial fibrillation on chronic anticoagulation with warfarin, chronic diastolic heart failure, asthma, WISAM, peripheral vascular disease, super morbid obesity. She has been at [facility] since 03/02/18. [facility]ACOBO was called due to respiratory distress. When they arrived as she was found to be in respiratory distress with sats in the 70s. She was communicating with them and reportedly said "leave me alone". She then had PEA arrest. She received CPR reportedly 10-15 minutes and received 2 doses of epinephrine. LMA was placed by EVAC. LMA was removed and she was intubated by Dr. Daly after receiving etomidate 20 mg IV and succinylcholine. She has demonstrated purposeful movements post intubation, and is now on a propofol drip. She was recently admitted to [facility] [place] 02/24-03/02 due to hypoglycemia, fall after isolated episode of diarrhea, hypoxia requiring HFNC. She has chronic interstitial changes on CXR. Reviewed records from [facility] which indicate she completed a 7 day course of Levaquin and has been on a prednisone taper. Current CXR shows bibasilar opacities. WBC is 16 ( previously 7.9). She has acute hypercapneic and hypoxemic respiratory failure. 03/19: Afebrile. Remains on 100% FiO2 PEEP of 12. Central has been placed for access due to multiple drips. Plan MRI brain today if respiratory status improves. Does not tolerate lying flat. Likely will need epoprostenol and rotaprone 03/20: Started on epoprostenol and currently on a rotor from bed. Currently on cisatracurium drip at 1 mcg/kg/min. Diuresing well. 03/21: Weaning down epoprostenol. Remains on cisatracurium drip at 6 mcg/kg/ min. Diuresis 6 L. Saturation was improved FiO2 down to 45%. 03/22: Hypothermic overnight. Currently euthermic. Excellent response to bumetanide drip. FiO2 down to 40%. PEEP down to 8. Possible discontinue paralytic agent today. 03/23: Resting comfortable in bed in no acute distress. Afebrile. Desaturated so placed back on rotor prone bed. Creatinine slowly increasing. 03/24: Afebrile. Worsening chest x-ray it appears to be volume overloaded again. +10 L past 24 hours. Will restart on bumetanide drip. Plan for bronchoscopy today. Switch to ceftazidime/avibactam secondary to ESBL positive Klebsiella pneumonia SUBJECTIVE 03/25: FiO2 to 55%. Tolerating demanding drip with -2 L past 24 hours. Bronchoscopy results pending. Positive BM. Restarting tube feeding today 03/26: Cr continues to rise, although clinically continues to appear severely volume overloaded. fio2 70%. supine all night. off nimbex. off flolan. ID managing ESBL/MDRO/KPC Klebsiella and anaerobic bacteremia. 03/27: off rotaprone bed. multiple desat episodes overnight. on 100% fio2 and PEEP 10 this AM. good diuresis with net -2L/24h. bumex drip continues. awakens and follows commands. 03/28: not diuresing as well as yesterday. wbc uptrending. 2 more episodes of bradycardia, not associated with hypoxia. however, fio2 remains severely elevated. I increased her peep to 14. still arouses and moves all extremities. high concern for ongoing infectious etiology, but with high o2 requirements and intermittent bradycardia requiring atropine, at present too unstable for repeat imaging. 03/29: ct C/A/P without overt infectious source. does demonstrate radiographic evidence of biventricular dysfunction. bedside echo today demonstrates the same , and dilated IVC without respiratory variation. off vasopressors. required atropine for a HR of 15 once overnight. still very hypoxic: changed to APRV 5:1 , 28/0, 4/0.8. Objective Vital Signs / I&O: Vital Signs 03/28/18 08:00 03/28/18 09:00 03/28/18 10:00 Pulse Rate 64 62 62 Respiratory Rate 14 14 16 Blood Pressure 179/79 H 160/72 H 162/77 H Pulse Oximetry 100 100 100 03/28/18 11:00 03/28/18 11:15 03/28/18 11:22 Pulse Rate 55 L 56 L Respiratory Rate 12 16 18 Blood Pressure 151/66 H Pulse Oximetry 99 98 03/28/18 12:00 03/28/18 13:00 03/28/18 14:00 Pulse Rate 69 68 51 L Respiratory Rate 12 15 20 Blood Pressure 168/76 H 167/72 H 153/70 H Pulse Oximetry 98 98 99 03/28/18 15:00 03/28/18 15:06 03/28/18 15:08 Pulse Rate 55 L 62 Respiratory Rate 14 16 16 Blood Pressure 158/70 H Pulse Oximetry 99 100 03/28/18 16:00 03/28/18 17:00 03/28/18 17:01 Pulse Rate 63 68 68 Respiratory Rate 16 18 20 Blood Pressure 182/79 H 174/79 H Pulse Oximetry 98 99 99 03/28/18 18:00 03/28/18 19:42 03/28/18 20:00 Pulse Rate 72 75 76 Respiratory Rate 20 19 Blood Pressure 165/65 H Pulse Oximetry 98 98 03/28/18 21:15 03/29/18 00:00 03/29/18 01:00 Pulse Rate 167 H Respiratory Rate 19 17 Blood Pressure 200/96 H Pulse Oximetry 97 98 100 03/29/18 01:21 03/29/18 02:00 03/29/18 04:00 Pulse Rate 113 H 63 Respiratory Rate 17 17 Blood Pressure 151/67 H Pulse Oximetry 95 03/29/18 04:22 03/29/18 06:00 03/29/18 07:38 Pulse Rate 75 66 Respiratory Rate 18 18 Blood Pressure Pulse Oximetry 92 L 97 03/29/18 07:40 Pulse Rate 70 Respiratory Rate 18 Blood Pressure Pulse Oximetry Intake & Output 03/28/18 03/29/18 03/29/18 18:59 06:59 18:59 Intake Total 600 / 600 1152 / 1152 Output Total 2850 / 2850 2250 / 2250 Balance -2250 / -2250 -1098 / -1098 Weight 141 kg Intake: IV 600 / 600 250 / 250 Heparin/D5W 25,000 U/250 mL 25, 250 / 250 000 unit In 250 ml @ 1,000 UNITS/HR 10 mls/hr IV.CONT TITRATE PRN Rx#:[id number] Versed Inj 50 mg In 50 ml @ 2 100 / 100 150 / 150 MG/HR 2 mls/hr IV.CONT TITRATE PRN Rx#:[id number] Avycaz Inj 0.94 GM In NS Inj 50 50 / 50 ML @ 25 mls/hr IV.SIG Q12H [facility] Rx#:[id number] Flagyl 500 MG Inj 100 ML @ 100 200 / 200 100 / 100 mls/hr IV.SIG Q6H [facility] Rx#: [id number] Tube Feeding 302 / 302 Water Bolus Amount 600 / 600 Output: Urine Amount (Catheter) 2850 / 2850 2250 / 2250 Indwelling Urethral Catheter 2850 / 2850 2250 / 2250 Other: Date of Last Bowel Movement 03/27/18 03/28/18 Result Diagrams: 03/29/18 04:25 03/29/18 04:25 Objective Remarks: GENERAL: 52-year-old female patient with an elevated BMI who is lying in bed orotracheally intubated. SKIN: Intertriginous lesion with erythema and satellite lesions under left breast. Skin breakdown over medial aspect of left ankle. HEAD: Atraumatic. Normocephalic. EYES: bilateral pupils sluggishly reactive. No scleral icterus. No injection or drainage. ENT: No nasal bleeding or discharge. Mucous membranes pink and moist. Tongue and lip/oral mucosa is swollen and edematous.. Covered with Vaseline gauze. NECK: Trachea midline. No JVD. CARDIOVASCULAR: RRR. sinus. RESPIRATORY: Diminished bibasilar with no appreciable rales. Scattered rhonchi bilaterally. GASTROINTESTINAL: Abdomen obese, soft, non-tender, nondistended OG in place. 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 Legs revealed 2+ pitting edema bilateral lower extremities. NEUROLOGICAL: RASS -2/-3. awakens and follows intermittent commands. moves all extremities. Assessment and Plan - Assessment and Plan Plan: Assessment: 52yF with severe ARDS and organ failure secondary to MDRO/ESBL/KPC Klebsiella and Veillonella bacteremia. remains very critically ill. does still appear to be volume overloaded combined with significant myocardial dysfunction. will add dobutamine which will help with her bradycardic episodes and increase our forced diuresis efforts. will use APRV to recruit lung volumes and prevent shunting and improve VQ mismatch. very critically ill with minimal improvements in the last few days. will need trach once stable, but for now too unstable for trach. NEURO/PSYCH: Acute encephalopathy - secondary to hypercapnia, improving. Abnormal brain CT with 3 mm hyperdensity in central [place] Major depressive disorder NOS Chronic opioid use Encephalomalacia right cerebellum/left occipital lobe scheduled oxycodone 20mg po q4h seroquel 50mg po q8h for delirium. versed and fentanyl for goal RASS -2. Followup CT brain - . Solitary 3 mm hyperdensity in the central [place] of uncertain significance. Differential considerations include a punctate calcification and acute hemorrhage MRI brain left occipital lobe and right cerebellum. She does not meet criteria for induced therapeutic hypothermia because she is following commands post CPR. Holding nabumetone 500 mg twice daily, methocarbamol 750 mg 4 times daily and oxycodone 10 mg every 6 hours Holding gabapentin 200 mg 3 times daily Holding tizanidine 4 mg 3 times daily RESP: Acute hypercapnic and hypoxemic respiratory failure Severe ARDS Acute asthma exacerbation Healthcare associated pneumonia WISAM/OHS Prior tobacco abuse Bilateral pleural effusions right 2.2 cm. Left 1.3 cm LMA was placed in the field by EVAC. Intubated in ED 03/18 Ventilator bundle On albuterol/ipratropium aerosols every 4 hours with albuterol aerosols every 2 hours as needed for dyspnea Weaned off epoprostenol 03/23 Spontaneous breathing trials when clinically indicated. Not today. CT thorax revealed right middle lobe/lower lobe consolidation left lower lobe consolidation. Right pleural effusion 2.2 cm. Left pleural effusion 1.3 cm Methylprednisolone succinate 40 mg IV every 12 hours. Antibiotics as per below. CXR still with pulmonary edema superimposed on ARDS. CT chest/abd/pelvis 03/28: biventricular enlargement, pulmonary edema. CV: Hypertension Hyperlipidemia Chronic diastolic heart failure Paroxysmal atrial fibrillation on chronic anti-coagulation with warfarin Peripheral vascular disease/peripheral arterial disease Elevated troponin intermittent bradycardia Cor pulmonale biventricular dysfunction Holding home medication of clonidine 0.1 mg every 6 hours nifedipine 90 mg daily. Continue carvedilol 6.25 mg twice daily with holding parameters for bradycardia 2D echo 02/24/18ejection fraction 50%. Wall thickness upper limits of normal. Trace MR. Lactic acid cleared Continue atorvastatin 40 mg daily Doppler bilateral upper and lower extremities with subtherapeutic INR revealed no acute thrombus heparin drip. intermittent bradycardia prevents restarting home clonidine hold carvedilol prn atropine amlodipine 10mg po daily hydralazine 100mg po q8h glycopyrrolate to 2mg po q6h. start dobutamine at 5 mcg/kg/min restart bumex drip at 1mg/hr. add metolazone 5mg po q12h GI: History of GERD Chronic pancreatitis insufficiency Hypoalbuminemia vital high-protein goal 55 cc an hour per GIs recommendation Famotidine for GI prophylaxis Docusate sodium/senna 1 tablet twice daily for bowel regimen Creon home medication 3 times daily FEN/RENAL: Acute kidney injury superimposed on CKD Chronic kidney disease stage III Hypernatremia Hypokalemia Acute severe intravascular volume overload with pulmonary edema [place] catheter was placed in the emergency department. Monitor intake and output. Monitor electrolytes and replace as indicated Free water 300 every 4 hours. Creatinine is stable, though remains elevated. Diuretic plan: continue bumex at 1mg/hr continues drip diamox 500mg iv x 1 metolazone 5mg po q12h continuous albumin infusion to maintain intravascular volume. ID: Acute healthcare associated pneumonia -ESBL positive Klebsiella pneumonia Veillonella species bacteremia Metronidazole 500 every 6 hours, ceftazidime/avibactam day #4 Discontinue piperacillin/tazobactam 03/24 Discontinue 03/22 cefepime 2 g IV every 12 hours, azithromycin 500 mg daily and vancomycin Consultation to ID workup Veillonella species bacteremia Blood cultures 2 03/18 Veillonella spp. Repeat 03/20 no growth to date Sputum, ESBL positive Klebsiella pneumonia Pneumococcal urinary antigens, influenza a and B and chlamydia and mycoplasma all pending/negative HEME: Leukocytosis Chronic anemia/normocytic Chronic anti-coagulation with warfarin 4 mg daily. INR target is 2-3. Monitor CBC daily. Follow trends No indication for transfusion of blood products at this time. Discontinued heparin drip 03/22, restarted 03/26. heparin drip ENDO: Diabetes mellitus History of gout d/c insulin drip and transition to SSI q4h high scale add levemir 20 units SQ daily Holding glipizide 10 mg twice daily and insulin glargine/home medication Holding allopurinol 300 mg daily/home medication MSK: Elevated BMI Osteoporosis/osteoarthritis PT evaluate and treat Okay to hold cholecalciferol 5000 units daily PROPH: SCDs for DVT prophylaxis. Heparin drip ACCESS: Right IJ CVL placed 03/19. Right axillary arterial line placed 03/19: must remain today, still critically ill. Critical care time 45 minutes, exclusive of separately billed procedures.
[2018-03-29] MEDS ORDERED: Magnesium Sulfate Inj 4 GM in Dextrose 5% in Water Inj 100 ML IV.SIG ONE ×2 (08:05)
[2018-03-29] MEDS: Insulin Detemir Inj 1,000 UNIT/10 ML Vial SQ SCH (08:14)
[2018-03-29] MEDS ORDERED: Mag Sulf/Water 4 gm/100 ml 100 ML IV.SIG ONE (08:15)
--- NOTE | 2018-03-29 08:18 | P.DIET ---
Nutritional Evaluation Type of nutrition evaluation: follow-up Nutrition consult regarding: Tube Feeding Nutrition screening: [facility] Objective - Diagnosis Cardiac Arrest - Objective Spicer body weight: 100 kg % IBW: 295 Body Weight Used for Calculations: IBW (45.5kg) Energy Needs - Lower Range (kCal/kg): 25 Energy Needs - Upper Range (kCal/kg): 30 Lower Limit kCal/kg (kCals): 1,138 Upper Limit kCal/kg (kCals): 1,365 Lower Limit Protein Factor (Grams per Kg): 2.0 Upper Limit Protein Factor (Grams per Kg): 2.5 Lower Protein Needs (Protein): 91 Upper Protein Needs (Protein): 114 Dietitian Reviewed in Medical Record: Curent medications, Intake & Output, Labs , Tube feeding, Wound/DTI Diet Order: NPO Wound Care Note: 03/20 Partial thickness skin loss visualized on left inner thigh area related to moisture. Objective Comments: PMH: DM, HTN, HLD, Afib, Diastolic heart failure WISAM, PVD, CKD Stage III, GERD, chronic pancreatitis, super morbid obesity Meds include: Creon, Lipitor, Bumex, Fentanyl, Versed Labs include: Cr 2.16, Glu 124, POC Glu 151, 113, 127, 119 UOP: 5100mls, Last BM 03/28 Feeding - Current Tube Feeding Tube Feeding Product: Vital High Protein Tube Feeding Method: Pump Tube Feeding Rate: 20 Current kCals Provided by Tube Feedin Current Protein Provided by Tube Feeding (gPRO): 42 Current Free H2O Provided (m/l): 401 Assessment Assessment: Pt at nutritional risk r/t current clinical status and the need for a TF for nutrition support. Pt remains intubated and sedated on fentanyl and versed. Pt' s nutritional needs as assessed above using ASPEN guidelines for protein needs. TF Vital High Protein is currently running at 20 ml/hr, with goal rate 55 ml/ hr. Noted UOP, Cr level, TF as recommended above will provide pt with 0.87 gms protein per kg actual body wt, which is reasonable for CKD Stg III. Pt on Novolin R and to start Levemir today. The above TF will provide 1.10 gms carbohydrate per kg actual body wt. TF will provide a total of 1320 kcals, 116 gms protein and 1104 mls free water. Will continue to monitor TF, clinical course. Recommendations: TF: Vital High Protein with goal rate 55 ml/hr Dietitian to Monitor: Renal labs, Glucose level, Intake & Output, Tube feeding tolerance, Weight change, Wound/skin status, Medical course
[2018-03-29] MEDS: MethylPREDNISolone Sod Succinate Inj 40 MG/ML Vial IV.PUSH SCH ×2 (08:21→20:50)
[2018-03-29] MEDS: metOLazone 5 MG Tablet PO SCH ×2 (08:22→20:53)
[2018-03-29] MEDS: Famotidine 20 MG Tablet PO SCH ×2 (08:22→20:52)
[2018-03-29] MEDS: Lipase/Protease/Amylase 24/76/120 DR Capsule PO SCH ×3 (08:22→18:19)
[2018-03-29] MEDS: Senna/Docusate Sodium 8.6/50 MG Tablet PO SCH ×2 (08:23→20:52)
[2018-03-29] MEDS: Bumetanide Inj 25 MG/100 ML BAG IV.CONT SCH (08:31)
[2018-03-29] MEDS: Chlorhexidine 0.12% Oral Kit 15 ML UDC OROPHARYNG SCH ×2 (08:34→20:54)
[2018-03-29 09:18] LABS: ABG Base Excess -1.8 mmol/L (-2-2); ABG PCO2 38 mmHg (38-42); ABG PO2 69 mmHG (61-120)
[2018-03-29] MEDS: Potassium Chlor 40 mEq Premix 40 MEQ/100 ML PIGGYBACK IV.SIG SCH ×2 (09:20→13:43)
[2018-03-29] MEDS: Albumin Human 25% Inj 100 ML IV.SIG SCH ×2 (09:21→18:17)
[2018-03-29] MEDS ORDERED: Atropine Inj 1 MG/10 ML Syringe ONE (13:12)
[2018-03-29] MEDS ORDERED: DOPamine 800 MG/500 ML Premix 800 MG/500 ML PLAST..BAG IV.CONT PRN (14:20)
[2018-03-29 15:07] LABS: Calcium 9.2 mg/dL (8.5-10.1); Carbon Dioxide 22.8 meq/L (21.0-32.0); Magnesium 2.8 mg/dL (1.5-2.5); Potassium 3.9 meq/L (3.5-5.1)
[2018-03-29] MEDS: amLODIPine 10 MG Tablet PO SCH (16:54)
[2018-03-29] MEDS: Heparin Drip 25,000 UNIT/250 ML BAG IV.CONT PRN (18:57)
[2018-03-29] MEDS: Micafungin Inj 150 MG in Sodium Chlor 0.9% Inj 100 ML IV.SIG SCH (18:58)
[2018-03-29] MEDS: niCARdipine Inj 25 MG in Sodium Chlor 0.9% Inj 240 ML IV.CONT PRN (18:58)
[2018-03-30] MEDS: Albumin Human 25% Inj 100 ML IV.SIG SCH ×3 (00:53→16:23)
[2018-03-30] MEDS: Ceftazidime/Avibactam Inj 0.94 GM in Sodium Chlor 0.9% Inj 50 ML IV.SIG SCH ×2 (00:53→12:10)
[2018-03-30] MEDS: niCARdipine Inj 25 MG in Sodium Chlor 0.9% Inj 240 ML IV.CONT PRN ×3 (01:30)
[2018-03-30] MEDS: Bumetanide Inj 25 MG/100 ML BAG IV.CONT SCH ×2 (01:41→17:35)
[2018-03-30 02:10] LABS: Calcium 9.5 mg/dL (8.5-10.1); Carbon Dioxide 26.7 meq/L (21.0-32.0); Magnesium 2.6 mg/dL (1.5-2.5); Potassium 3.7 meq/L (3.5-5.1)
[2018-03-30] MEDS: Hypromellose 0.3% Opth Gel 10 GM Bottle EACH EYE SCH ×3 (03:12→18:30)
[2018-03-30] MEDS: Oral Hygiene Kit OROPHARYNG SCH ×3 (03:12→16:23)
[2018-03-30] MEDS: Insulin NovoLIN Regular Correctional Sugar Inj SQ SCH ×5 (03:19→20:43)
[2018-03-30] MEDS: Midazolam 50 MG/50 ML Inj 50 MG/50 ML BAG IV.CONT PRN ×5 (04:17→22:09)
[2018-03-30 04:35] LABS: Hematocrit 24.7 % (35.0-46.0); Hemoglobin 7.9 gm/dL (11.6-15.3); Mean Corpuscular HGB Conc 32.1 % (32.0-36.0); Mean Corpuscular Hemoglobin 24.4 pg (27.0-34.0); Mean Corpuscular Volume 76.1 fL (80.0-100.0); Mean Platelet Volume 9.7 fL (7.0-11.0); Platelet Count 197 th/mm3 (150-450); Red Blood Count 3.24 mil/mm3 (4.00-5.30); Red Cell Distribution Width 23.7 % (11.6-17.2); White Blood Count 21.6 th/mm3 (4.0-11.0)
[2018-03-30 04:38] LABS: INR 1.4 Ratio; Prothrombin Time 13.7 sec (9.8-11.6)
[2018-03-30 04:59] LABS: Calcium 9.6 mg/dL (8.5-10.1); Carbon Dioxide 25.7 meq/L (21.0-32.0); Magnesium 2.6 mg/dL (1.5-2.5); Potassium 3.6 meq/L (3.5-5.1)
[2018-03-30] MEDS: QUEtiapine 25 MG Tablet PO SCH ×3 (04:59→22:07)
[2018-03-30] MEDS: fentaNYL 10 mcg/mL Premix Drip 2,500 MCG/250 ML BAG IV.SIG PRN ×3 (09:01→18:01)
--- NOTE | 2018-03-30 09:13 | XR ---
EXAM DATE: 03/30/2018 8:14 AM EDT AGE/SEX: 52 years / Female INDICATIONS: Shortness of breath. Congestive heart failure. CLINICAL DATA: This is the patient's subsequent encounter. Patient reports that signs and symptoms h ave been present for 3 weeks and indicates a pain score of Nonresponsive. MEDICAL/SURGICAL HISTORY: . Hypertension. Hyperlipidemia. Diabetes. Atrial fibrillation. Conge stive heart failure. COPD. Chronic kidney disease. Left leg DVT. GERD. Methicillin-resistant staphylo coccus aureus. None. Toe amputation. Tubal ligation. Tonsillectomy. Mastectomy. COMPARISON: [facility] [place]ST 1V SINGLE AP, 03/25/2018. . FINDINGS: Improving but persistent interstitial vascular congestion. There is less consolidation in the upper l obes. Persistent consolidation is seen in the left lower lobe. Supportive devices are in stable position. CONCLUSION: Improving upper lobe aeration with decreasing consolidation and congestion. Stable supportive devices. Electronically signed by: Po Gonzalez MD 03/30/2018 9:11 AM EDT
[2018-03-30] MEDS: Chlorhexidine 0.12% Oral Kit 15 ML UDC OROPHARYNG SCH ×2 (09:46→20:42)
[2018-03-30] MEDS: metOLazone 5 MG Tablet PO SCH ×2 (09:49→20:42)
[2018-03-30] MEDS: Lipase/Protease/Amylase 24/76/120 DR Capsule PO SCH ×3 (09:49→17:34)
[2018-03-30] MEDS: Insulin Detemir Inj 1,000 UNIT/10 ML Vial SQ SCH (09:50)
[2018-03-30] MEDS: amLODIPine 10 MG Tablet PO SCH (09:50)
[2018-03-30] MEDS: Senna/Docusate Sodium 8.6/50 MG Tablet PO SCH ×2 (09:51→20:39)
[2018-03-30] MEDS: Famotidine 20 MG Tablet PO SCH ×2 (09:51→20:39)
[2018-03-30] MEDS: MethylPREDNISolone Sod Succinate Inj 40 MG/ML Vial IV.PUSH SCH ×2 (09:51→20:41)
--- NOTE | 2018-03-30 10:40 | P.PNADD ---
Addendum to Inpatient Note Additional information: Pt seen and examined Full note to follow
--- NOTE | 2018-03-30 12:23 | ECG ---
Date Performed: 03/29/2018 Time Performed: 02:46:38 PTAGE: 52 years EKG: Sinus arrhythmia with PVC(s). Short MO interval Generalized low QRS voltages Abnormal ECG PREVIOUS TRACING : 03/25/2018 16.21 DOCTOR: Shade Dailey Interpretating Date/Time 03/30/2018 12:22:29
--- NOTE | 2018-03-30 13:53 | P.PNCC ---
Subjective Subjective Remarks/Hospital Course: 52-year-old female with past medical history of diabetes mellitus, hypertension, hyperlipidemia, atrial fibrillation on chronic anticoagulation with warfarin, chronic diastolic heart failure, asthma, WISAM, peripheral vascular disease, super morbid obesity. She has been at [facility] since 03/02/18. Abeba JACOBO was called due to respiratory distress. When they arrived as she was found to be in respiratory distress with sats in the 70s. She was communicating with them and reportedly said "leave me alone". She then had PEA arrest. She received CPR reportedly 10-15 minutes and received 2 doses of epinephrine. LMA was placed by EVAC. LMA was removed and she was intubated by Dr. Daly after receiving etomidate 20 mg IV and succinylcholine. She has demonstrated purposeful movements post intubation, and is now on a propofol drip. She was [place] [facility] [place] to hypoglycemia, fall after isolated episode of diarrhea, hypoxia requiring HFNC. She has chronic interstitial changes on CXR. Reviewed records from [facility] which indicate she completed a 7 day course of Levaquin and has been on a prednisone taper. Current CXR shows bibasilar opacities. WBC is 16 ( previously 7.9). She has acute hypercapneic and hypoxemic respiratory failure. 03/19: Afebrile. Remains on 100% FiO2 PEEP of 12. Central has been placed for access due to multiple drips. Plan MRI brain today if respiratory status improves. Does not tolerate lying flat. Likely will need epoprostenol and rotaprone 03/20: Started on epoprostenol and currently on a rotor from bed. Currently on cisatracurium drip at 1 mcg/kg/min. Diuresing well. 03/21: Weaning down epoprostenol. Remains on cisatracurium drip at 6 mcg/kg/ min. Diuresis 6 L. Saturation was improved FiO2 down to 45%. 03/22: Hypothermic overnight. Currently euthermic. Excellent response to bumetanide drip. FiO2 down to 40%. PEEP down to 8. Possible discontinue paralytic agent today. 03/23: Resting comfortable in bed in no acute distress. Afebrile. Desaturated so placed back on rotor prone bed. Creatinine slowly increasing. 03/24: Afebrile. Worsening chest x-ray it appears to be volume overloaded again. +10 L past 24 hours. Will restart on bumetanide drip. Plan for bronchoscopy today. Switch to ceftazidime/avibactam secondary to ESBL positive Klebsiella pneumonia 03/25: FiO2 to 55%. Tolerating demanding drip with -2 L past 24 hours. Bronchoscopy results pending. Positive BM. Restarting tube feeding today 03/26: Cr continues to rise, although clinically continues to appear severely volume overloaded. fio2 70%. supine all night. off nimbex. off flolan. ID managing ESBL/MDRO/KPC Klebsiella and anaerobic bacteremia. 03/27: off rotaprone bed. multiple desat episodes overnight. on 100% fio2 and PEEP 10 this AM. good diuresis with net -2L/24h. bumex drip continues. awakens and follows commands. 03/28: not diuresing as well as yesterday. wbc uptrending. 2 more episodes of bradycardia, not associated with hypoxia. however, fio2 remains severely elevated. I increased her peep to 14. still arouses and moves all extremities. high concern for ongoing infectious etiology, but with high o2 requirements and intermittent bradycardia requiring atropine, at present too unstable for repeat imaging. 03/29: ct C/A/P without overt infectious source. does demonstrate radiographic evidence of biventricular dysfunction. bedside echo today demonstrates the same , and dilated IVC without respiratory variation. off vasopressors. required atropine for a HR of 15 once overnight. still very hypoxic: changed to APRV 5:1 , 28/0, 4/0.8. SUBJECTIVE 03/30: remains on APRV with hypoxia. multiple episodes of bradycardia and a 18 second pause yesterday. trialed on dobutamine but with multiple dysrhythmias. now on low-dose dopamine to mitigate bradycardia. adequate diuresis overnight. cxr improving slightly. still remains volume overloaded, and YOU persists. Objective Vital Signs / I&O: Vital Signs 03/29/18 13:50 03/29/18 14:00 03/29/18 14:10 Temperature Pulse Rate 69 74 72 Respiratory Rate 24 17 15 Blood Pressure 174/77 H 170/70 H 181/76 H Pulse Oximetry 98 99 98 03/29/18 14:21 03/29/18 14:30 03/29/18 14:31 Temperature Pulse Rate 73 69 70 Respiratory Rate 22 13 15 Blood Pressure 200/84 H 214/84 H Pulse Oximetry 98 96 97 03/29/18 14:41 03/29/18 14:50 03/29/18 15:00 Temperature Pulse Rate 69 75 75 Respiratory Rate 16 12 13 Blood Pressure 216/89 H 220/92 H 214/90 H Pulse Oximetry 97 98 98 03/29/18 15:10 03/29/18 15:20 03/29/18 15:30 Temperature Pulse Rate 77 78 79 Respiratory Rate 22 17 15 Blood Pressure 206/80 H 205/84 H 195/79 H Pulse Oximetry 94 L 98 98 03/29/18 15:39 03/29/18 15:40 03/29/18 15:50 Temperature Pulse Rate 85 85 86 Respiratory Rate 13 16 13 Blood Pressure 190/80 H 191/79 H Pulse Oximetry 96 98 98 03/29/18 16:00 03/29/18 16:10 03/29/18 16:20 Temperature 37.0 C Pulse Rate 86 85 83 Respiratory Rate 13 13 13 Blood Pressure 185/78 H 179/74 H 177/77 H Pulse Oximetry 98 98 98 03/29/18 16:30 03/29/18 16:40 03/29/18 16:50 Temperature Pulse Rate 81 80 80 Respiratory Rate 12 13 12 Blood Pressure 171/72 H 171/72 H 170/71 H Pulse Oximetry 98 98 98 03/29/18 17:00 03/29/18 17:10 03/29/18 18:00 Temperature Pulse Rate 79 79 76 Respiratory Rate 13 13 Blood Pressure 167/70 H 170/70 H Pulse Oximetry 97 97 03/29/18 20:00 03/29/18 20:04 03/29/18 22:00 Temperature 37.1 C Pulse Rate 76 76 80 Respiratory Rate 12 13 Blood Pressure 136/60 Pulse Oximetry 95 97 03/30/18 00:00 03/30/18 00:18 03/30/18 00:50 Temperature 36.9 C Pulse Rate 84 84 83 Respiratory Rate 15 19 15 Blood Pressure 139/61 188/80 H Pulse Oximetry 97 98 98 03/30/18 01:00 03/30/18 01:10 03/30/18 01:20 Temperature Pulse Rate 82 83 83 Respiratory Rate 21 13 15 Blood Pressure 179/79 H 178/73 H 181/78 H Pulse Oximetry 98 99 98 03/30/18 01:30 03/30/18 01:40 03/30/18 01:50 Temperature Pulse Rate 82 82 81 Respiratory Rate 10 L 17 10 L Blood Pressure 182/75 H 182/77 H 183/75 H Pulse Oximetry 98 98 98 03/30/18 02:00 03/30/18 02:10 03/30/18 02:20 Temperature Pulse Rate 82 80 79 Respiratory Rate 18 14 18 Blood Pressure 177/77 H 171/74 H 175/74 H Pulse Oximetry 100 100 100 03/30/18 02:30 03/30/18 02:40 03/30/18 02:50 Temperature Pulse Rate 79 78 78 Respiratory Rate 16 16 16 Blood Pressure 175/75 H 175/77 H 179/75 H Pulse Oximetry 100 100 100 03/30/18 03:00 03/30/18 03:30 03/30/18 04:00 Temperature 36.5 C Pulse Rate 77 78 78 Respiratory Rate 16 15 16 Blood Pressure 173/75 H Pulse Oximetry 100 100 100 03/30/18 04:30 03/30/18 04:36 03/30/18 05:00 Temperature Pulse Rate 75 75 74 Respiratory Rate 15 17 12 Blood Pressure Pulse Oximetry 100 100 100 03/30/18 05:30 03/30/18 06:00 03/30/18 06:30 Temperature Pulse Rate 74 74 75 Respiratory Rate 13 13 13 Blood Pressure 167/72 H Pulse Oximetry 99 98 99 03/30/18 07:00 03/30/18 07:30 03/30/18 07:53 Temperature Pulse Rate 74 72 Respiratory Rate 13 20 15 Blood Pressure Pulse Oximetry 99 98 97 03/30/18 08:00 03/30/18 08:30 03/30/18 09:00 Temperature 37.1 C Pulse Rate 77 74 74 Respiratory Rate 13 13 13 Blood Pressure 156/68 H Pulse Oximetry 99 96 97 03/30/18 09:30 03/30/18 10:00 03/30/18 10:30 Temperature Pulse Rate 74 75 79 Respiratory Rate 14 15 14 Blood Pressure 151/66 H Pulse Oximetry 97 95 96 03/30/18 11:00 03/30/18 11:30 03/30/18 11:53 Temperature Pulse Rate 76 74 78 Respiratory Rate 13 12 12 Blood Pressure Pulse Oximetry 97 97 03/30/18 12:00 03/30/18 12:30 Temperature 36.3 C L Pulse Rate 72 Respiratory Rate 12 Blood Pressure 139/65 Pulse Oximetry 96 97 Intake & Output 03/29/18 03/30/18 03/30/18 18:59 06:59 18:59 Intake Total 1900 / 1900 1330 / 1330 850 / 850 Output Total 900 / 900 2930 / 2930 Balance 1000 / 1000 -1600 / -1600 850 / 850 Weight 141.5 kg Intake: IV 1300 / 1300 1250 / 1250 850 / 850 Bumex Inj 25 mg In 100 ml @ 1 100 / 100 100 / 100 MG/HR 4 mls/hr IV.CONT .Q24H JACKI Rx#:[id number] Heparin/D5W 25,000 U/250 mL 25, 250 / 250 000 unit In 250 ml @ 1,000 UNITS/HR 10 mls/hr IV.CONT TITRATE PRN Rx#:[id number] Versed Inj 50 mg In 50 ml @ 2 150 / 150 100 / 100 100 / 100 MG/HR 2 mls/hr IV.CONT TITRATE PRN Rx#:[id number] Cardene Inj 25 MG In NS Inj 240 250 / 250 500 / 500 250 / 250 ML @ 5 MG/HR 50 mls/hr IV.CONT TITRATE PRN Rx#:[id number] Flexbumin 25% Inj 100 ML @ 12.5 100 / 100 100 / 100 0 / 0 mls/hr IV.SIG Q8H JACKI Rx#: [id number] Avycaz Inj 0.94 GM In NS Inj 50 50 / 50 ML @ 25 mls/hr IV.SIG Q12H JACKI Rx#:[id number] KCl 40 mEq Premix Inj 40 meq In 100 / 100 100 ml @ 25 mls/hr IV.SIG Q4H JACKI Rx#:[id number] fentaNYL 10 mcg/mL Premix Drip 250 / 250 250 / 250 250 / 250 2,500 mcg In 250 ml @ 50 MCG/HR 5 mls/hr IV.SIG TITRATE PRN Rx #:[id number] Flagyl 500 MG Inj 100 ML @ 100 100 / 100 200 / 200 200 / 200 mls/hr IV.SIG Q6H JACKI Rx#: [id number] Oral 600 / 600 Tube Feeding 80 / 80 Output: Stool 630 / 630 Urine Amount (Catheter) 900 / 900 2300 / 2300 Indwelling Urethral Catheter 900 / 900 2300 / 2300 Other: Date of Last Bowel Movement 03/28/18 03/30/18 03/30/18 Result Diagrams: 03/30/18 04:10 03/30/18 04:10 Objective Remarks: GENERAL: 52-year-old female patient with an elevated BMI who is lying in bed orotracheally intubated. SKIN: Intertriginous lesion with erythema and satellite lesions under left breast. Skin breakdown over medial aspect of left ankle. HEAD: Atraumatic. Normocephalic. EYES: bilateral pupils sluggishly reactive. No scleral icterus. No injection or drainage. ENT: No nasal bleeding or discharge. Mucous membranes pink and moist. Tongue and lip/oral mucosa is swollen and edematous.. Covered with Vaseline gauze. NECK: Trachea midline. No JVD. CARDIOVASCULAR: RRR. sinus. RESPIRATORY: Diminished bibasilar with no appreciable rales. Scattered rhonchi bilaterally. GASTROINTESTINAL: Abdomen obese, soft, non-tender, nondistended OG in place. 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 Legs revealed 2+ pitting edema bilateral lower extremities. NEUROLOGICAL: RASS -2/-3. awakens and follows intermittent commands. moves all extremities. Assessment and Plan - Assessment and Plan Plan: Assessment: 52yF with severe ARDS and organ failure secondary to MDRO/ESBL/KPC Klebsiella and Veillonella bacteremia. remains very critically ill. does still appear to be volume overloaded combined with significant myocardial dysfunction. continue dopamine to prevent bradycardia. continue APRV mode of ventilation. continue forced diuresis. Family concerned about goals of care and if this level of care was consistent with patient's wishes. I think it is hernandez to get palliative care involved. however, it does appear that given her young age, we could successfully rehabilitate her to a functional status at least consistent with her prior functional status at her SNF, and possibly improved depending on her clinical course. Of course this would take months of rehabilitation, and will likely include trach/peg due to her severe ARDS and hypoxia. I would support aggressive measures at this point, unless it becomes clear that the patient has a strong opinion against such measures. Remains critically ill today with multiple ongoing life-threatening organ dysfunction. NEURO/PSYCH: Acute encephalopathy - secondary to hypercapnia, improving. Abnormal brain CT with 3 mm hyperdensity in central [place] Major depressive disorder NOS Chronic opioid use Encephalomalacia right cerebellum/left occipital lobe scheduled oxycodone 20mg po q4h seroquel 50mg po q8h for delirium. versed and fentanyl for goal RASS -2. Followup CT brain - . Solitary 3 mm hyperdensity in the central [place] of uncertain significance. Differential considerations include a punctate calcification and acute hemorrhage MRI brain left occipital lobe and right cerebellum. She does not meet criteria for induced therapeutic hypothermia because she is following commands post CPR. Holding nabumetone 500 mg twice daily, methocarbamol 750 mg 4 times daily and oxycodone 10 mg every 6 hours Holding gabapentin 200 mg 3 times daily Holding tizanidine 4 mg 3 times daily RESP: Acute hypercapnic and hypoxemic respiratory failure Severe ARDS Acute asthma exacerbation Healthcare associated pneumonia WISAM/OHS Prior tobacco abuse Bilateral pleural effusions right 2.2 cm. Left 1.3 cm LMA was placed in the field by EVAC. Intubated in ED 03/18 Ventilator bundle On albuterol/ipratropium aerosols every 4 hours with albuterol aerosols every 2 hours as needed for dyspnea Weaned off epoprostenol 03/23 Spontaneous breathing trials when clinically indicated. Not today. CT thorax revealed right middle lobe/lower lobe consolidation left lower lobe consolidation. Right pleural effusion 2.2 cm. Left pleural effusion 1.3 cm Methylprednisolone succinate 40 mg IV every 12 hours. Antibiotics as per below. CXR still with pulmonary edema superimposed on ARDS. CT chest/abd/pelvis 03/28: biventricular enlargement, pulmonary edema. CV: Hypertension Hyperlipidemia Chronic diastolic heart failure Paroxysmal atrial fibrillation on chronic anti-coagulation with warfarin Peripheral vascular disease/peripheral arterial disease Elevated troponin intermittent bradycardia Cor pulmonale biventricular dysfunction Holding home medication of clonidine 0.1 mg every 6 hours nifedipine 90 mg daily. holding carvedilol 2D echo 02/24/18ejection fraction 50%. Wall thickness upper limits of normal. Trace MR. Lactic acid cleared Continue atorvastatin 40 mg daily Doppler bilateral upper and lower extremities with subtherapeutic INR revealed no acute thrombus heparin drip. intermittent bradycardia prevents restarting home clonidine hold carvedilol prn atropine continue dopamine infusion amlodipine 10mg po daily hydralazine 100mg po q8h glycopyrrolate to 0.4mg IM q4h. continue bumex drip at 1mg/hr. continue metolazone 5mg po q12h GI: History of GERD Chronic pancreatitis insufficiency Hypoalbuminemia vital high-protein goal 55 cc an hour per GIs recommendation Famotidine for GI prophylaxis Docusate sodium/senna 1 tablet twice daily for bowel regimen Creon home medication 3 times daily FEN/RENAL: Acute kidney injury superimposed on CKD Chronic kidney disease stage III Hypernatremia Hypokalemia Acute severe intravascular volume overload with pulmonary edema [place] catheter was placed in the emergency department. Monitor intake and output. Monitor electrolytes and replace as indicated Free water 300 every 4 hours. Creatinine is stable, though remains elevated. Diuretic plan: bumex at 1mg/hr continues drip metolazone 5mg po q12h continuous albumin infusion to maintain intravascular volume. ID: Acute healthcare associated pneumonia -ESBL positive Klebsiella pneumonia Veillonella species bacteremia Metronidazole 500 every 6 hours, ceftazidime/avibactam day #4 Discontinue piperacillin/tazobactam 03/24 Discontinue 03/22 cefepime 2 g IV every 12 hours, azithromycin 500 mg daily and vancomycin Consultation to ID workup Veillonella species bacteremia Blood cultures 2 03/18 Veillonella spp. Repeat 03/20 no growth to date Sputum, ESBL positive Klebsiella pneumonia Pneumococcal urinary antigens, influenza a and B and chlamydia and mycoplasma all pending/negative HEME: Leukocytosis Chronic anemia/normocytic Chronic anti-coagulation with warfarin 4 mg daily. INR target is 2-3. Monitor CBC daily. Follow trends No indication for transfusion of blood products at this time. Discontinued heparin drip 03/22, restarted 03/26. heparin drip ENDO: Diabetes mellitus History of gout d/c insulin drip and transition to SSI q4h high scale increase levemir to 25 units SQ daily Holding glipizide 10 mg twice daily and insulin glargine/home medication Holding allopurinol 300 mg daily/home medication MSK: Elevated BMI Osteoporosis/osteoarthritis PT evaluate and treat Okay to hold cholecalciferol 5000 units daily PROPH: SCDs for DVT prophylaxis. Heparin drip ACCESS: Right IJ CVL placed 03/19. Right axillary arterial line placed 03/19: must remain today, still critically ill. Critical care time 31 minutes, exclusive of separately billed procedures.
--- NOTE | 2018-03-30 14:27 | P.PNID ---
Subjective Remarks: improving On 40 % FiO2 High residuals liquid stool C.diff negative CT A/P and fdoot MRI unrmarkable Antibiotics: avicaz flagyl micafungin Allergies/Adverse Reactions: Allergies ibuprofen Allergy (Severe, Verified 03/18/18 17:58) MESSES WITH KIDNEYS Sulfa (Sulfonamide Antibiotics) Allergy (Severe, Verified 03/18/18 17:58) HIVES egg Allergy (Intermediate, Verified 03/18/18 17:58) Very Upset Stomach milk Allergy (Unknown, Verified 03/18/18 17:58) Heartburn Objective Vital Signs 03/29/18 14:30 03/29/18 14:31 03/29/18 14:41 Temperature Pulse Rate 69 70 69 Respiratory Rate 13 15 16 Blood Pressure 214/84 H 216/89 H Pulse Oximetry 96 97 97 03/29/18 14:50 03/29/18 15:00 03/29/18 15:10 Temperature Pulse Rate 75 75 77 Respiratory Rate 12 13 22 Blood Pressure 220/92 H 214/90 H 206/80 H Pulse Oximetry 98 98 94 L 03/29/18 15:20 03/29/18 15:30 03/29/18 15:39 Temperature Pulse Rate 78 79 85 Respiratory Rate 17 15 13 Blood Pressure 205/84 H 195/79 H Pulse Oximetry 98 98 96 03/29/18 15:40 03/29/18 15:50 03/29/18 16:00 Temperature 98.6 F Pulse Rate 85 86 86 Respiratory Rate 16 13 13 Blood Pressure 190/80 H 191/79 H 185/78 H Pulse Oximetry 98 98 98 03/29/18 16:10 03/29/18 16:20 03/29/18 16:30 Temperature Pulse Rate 85 83 81 Respiratory Rate 13 13 12 Blood Pressure 179/74 H 177/77 H 171/72 H Pulse Oximetry 98 98 98 03/29/18 16:40 03/29/18 16:50 03/29/18 17:00 Temperature Pulse Rate 80 80 79 Respiratory Rate 13 12 13 Blood Pressure 171/72 H 170/71 H 167/70 H Pulse Oximetry 98 98 97 03/29/18 17:10 03/29/18 18:00 03/29/18 20:00 Temperature 98.7 F Pulse Rate 79 76 76 Respiratory Rate 13 12 Blood Pressure 170/70 H 136/60 Pulse Oximetry 97 95 03/29/18 20:04 03/29/18 22:00 03/30/18 00:00 Temperature 98.5 F Pulse Rate 76 80 84 Respiratory Rate 13 15 Blood Pressure 139/61 Pulse Oximetry 97 97 03/30/18 00:18 03/30/18 00:50 03/30/18 01:00 Temperature Pulse Rate 84 83 82 Respiratory Rate 19 15 21 Blood Pressure 188/80 H 179/79 H Pulse Oximetry 98 98 98 03/30/18 01:10 03/30/18 01:20 03/30/18 01:30 Temperature Pulse Rate 83 83 82 Respiratory Rate 13 15 10 L Blood Pressure 178/73 H 181/78 H 182/75 H Pulse Oximetry 99 98 98 03/30/18 01:40 03/30/18 01:50 03/30/18 02:00 Temperature Pulse Rate 82 81 82 Respiratory Rate 17 10 L 18 Blood Pressure 182/77 H 183/75 H 177/77 H Pulse Oximetry 98 98 100 03/30/18 02:10 03/30/18 02:20 03/30/18 02:30 Temperature Pulse Rate 80 79 79 Respiratory Rate 14 18 16 Blood Pressure 171/74 H 175/74 H 175/75 H Pulse Oximetry 100 100 100 03/30/18 02:40 03/30/18 02:50 03/30/18 03:00 Temperature Pulse Rate 78 78 77 Respiratory Rate 16 16 16 Blood Pressure 175/77 H 179/75 H Pulse Oximetry 100 100 100 03/30/18 03:30 03/30/18 04:00 03/30/18 04:30 Temperature 97.7 F Pulse Rate 78 78 75 Respiratory Rate 15 16 15 Blood Pressure 173/75 H Pulse Oximetry 100 100 100 03/30/18 04:36 03/30/18 05:00 03/30/18 05:30 Temperature Pulse Rate 75 74 74 Respiratory Rate 17 12 13 Blood Pressure Pulse Oximetry 100 100 99 03/30/18 06:00 03/30/18 06:30 03/30/18 07:00 Temperature Pulse Rate 74 75 74 Respiratory Rate 13 13 13 Blood Pressure 167/72 H Pulse Oximetry 98 99 99 03/30/18 07:30 03/30/18 07:53 03/30/18 08:00 Temperature 98.8 F Pulse Rate 72 77 Respiratory Rate 20 15 13 Blood Pressure 156/68 H Pulse Oximetry 98 97 99 03/30/18 08:30 03/30/18 09:00 03/30/18 09:30 Temperature Pulse Rate 74 74 74 Respiratory Rate 13 13 14 Blood Pressure Pulse Oximetry 96 97 97 03/30/18 10:00 03/30/18 10:30 03/30/18 11:00 Temperature Pulse Rate 75 79 76 Respiratory Rate 15 14 13 Blood Pressure 151/66 H Pulse Oximetry 95 96 97 03/30/18 11:30 03/30/18 11:53 03/30/18 12:00 Temperature 97.4 F L Pulse Rate 74 78 72 Respiratory Rate 12 12 12 Blood Pressure 139/65 Pulse Oximetry 97 96 03/30/18 12:30 Temperature Pulse Rate Respiratory Rate Blood Pressure Pulse Oximetry 97 Intake & Output 03/29/18 03/30/18 03/30/18 18:59 06:59 18:59 Intake Total 1900 / 1900 1330 / 1330 850 / 850 Output Total 900 / 900 2930 / 2930 Balance 1000 / 1000 -1600 / -1600 850 / 850 Weight 141.5 kg Intake: IV 1300 / 1300 1250 / 1250 850 / 850 Bumex Inj 25 mg In 100 ml @ 1 100 / 100 100 / 100 MG/HR 4 mls/hr IV.CONT .Q24H [facility] Rx#:[id number] Heparin/D5W 25,000 U/250 mL 25, 250 / 250 000 unit In 250 ml @ 1,000 UNITS/HR 10 mls/hr IV.CONT TITRATE PRN Rx#:[id number] Versed Inj 50 mg In 50 ml @ 2 150 / 150 100 / 100 100 / 100 MG/HR 2 mls/hr IV.CONT TITRATE PRN Rx#:[id number] Cardene Inj 25 MG In NS Inj 240 250 / 250 500 / 500 250 / 250 ML @ 5 MG/HR 50 mls/hr IV.CONT TITRATE PRN Rx#:[id number] Flexbumin 25% Inj 100 ML @ 12.5 100 / 100 100 / 100 0 / 0 mls/hr IV.SIG Q8H [facility] Rx#: [id number] Avycaz Inj 0.94 GM In NS Inj 50 50 / 50 ML @ 25 mls/hr IV.SIG Q12H [facility] Rx#:[id number] KCl 40 mEq Premix Inj 40 meq In 100 / 100 100 ml @ 25 mls/hr IV.SIG Q4H [facility] Rx#:[id number] fentaNYL 10 mcg/mL Premix Drip 250 / 250 250 / 250 250 / 250 2,500 mcg In 250 ml @ 50 MCG/HR 5 mls/hr IV.SIG TITRATE PRN Rx #:[id number] Flagyl 500 MG Inj 100 ML @ 100 100 / 100 200 / 200 200 / 200 mls/hr IV.SIG Q6H [facility] Rx#: [id number] Oral 600 / 600 Tube Feeding 80 / 80 Output: Stool 630 / 630 Urine Amount (Catheter) 900 / 900 2300 / 2300 Indwelling Urethral Catheter 900 / 900 2300 / 2300 Other: Date of Last Bowel Movement 03/28/18 03/30/18 03/30/18 03/26/18 15:51 Blood - Peripheral Aerobic Blood Culture - Preliminary No growth in 4 days 03/26/18 15:51 Blood - Peripheral Anaerobic Blood Culture - Preliminary No growth in 4 days 03/26/18 14:39 Blood - Peripheral Aerobic Blood Culture - Preliminary No growth in 4 days 03/26/18 14:39 Blood - Peripheral Anaerobic Blood Culture - Preliminary No growth in 4 days 03/26/18 16:21 Catheterized Urine Urine Culture - Final No growth in 48 hours Lab - Hematology Results 03/29/18 03/30/18 04:25 04:10 WBC 23.0 H 21.6 H RBC 3.65 L 3.24 L Hgb 8.9 L 7.9 L Hct 27.6 L 24.7 L MCV 75.7 L 76.1 L MCH 24.4 L 24.4 L MCHC 32.2 32.1 RDW 23.4 H 23.7 H Plt Count 214 197 MPV 9.7 9.7 Lab - Chemistry Results 03/28/18 03/28/18 03/28/18 17:00 18:09 22:51 Sodium Potassium Chloride Carbon Dioxide Anion Gap BUN Creatinine Estimated GFR POC Glucose 115 H 116 H 151 H Random Glucose Calcium Magnesium 03/29/18 03/29/18 03/29/18 01:00 03:46 04:25 Sodium 144 Potassium 3.5 Chloride 107 Carbon Dioxide 25.8 Anion Gap 11 BUN 80 H Creatinine 2.16 H Estimated GFR 29 L POC Glucose 113 H 127 H Random Glucose 124 H Calcium 8.9 Magnesium 1.8 03/29/18 03/29/18 03/29/18 06:53 08:11 12:54 Sodium Potassium Chloride Carbon Dioxide Anion Gap BUN Creatinine Estimated GFR POC Glucose 119 H 136 H 200 H Random Glucose Calcium Magnesium 03/29/18 03/29/18 03/29/18 14:28 18:05 19:57 Sodium 142 Potassium 3.9 Chloride 105 Carbon Dioxide 22.8 Anion Gap 14 BUN 86 H Creatinine 2.19 H Estimated GFR 28 L POC Glucose 220 H 204 H Random Glucose 197 H Calcium 9.2 Magnesium 2.8 H D 03/29/18 03/30/18 03/30/18 23:07 01:00 03:15 Sodium 141 Potassium 3.7 Chloride 104 Carbon Dioxide 26.7 Anion Gap 10 BUN 90 H Creatinine 2.36 H Estimated GFR 26 L POC Glucose 200 H 186 H Random Glucose 189 H Calcium 9.5 Magnesium 2.6 H 03/30/18 03/30/18 03/30/18 04:10 08:07 11:20 Sodium 141 Potassium 3.6 Chloride 103 Carbon Dioxide 25.7 Anion Gap 12 BUN 87 H Creatinine 2.39 H Estimated GFR 26 L POC Glucose 198 H 216 H Random Glucose 183 H Calcium 9.6 Magnesium 2.6 H Imaging: ITS Impressions Head CT 03/18/18 18:46 CONCLUSION: 1. Solitary 3 mm hyperdensity in the central [place] of uncertain significance. Differential considerations include a punctate calcification and acute hemorrhage. 2. No acute findings in the supratentorial brain. Head MRI 03/19/18 00:00 CONCLUSION: 1. No evidence of brainstem hemorrhage. 2. Small foci of encephalomalacia in the left occipital lobe and right cerebellum 3. No evidence of acute infarct, hemorrhage, mass or edema. 4. No evidence of enhancing intra-axial or extra-axial lesions. Venous Doppler Study 03/19/18 00:00 CONCLUSION: The study is negative for bilateral lower extremity deep venous thrombosis. Foot X-Ray 03/22/18 00:00 CONCLUSION: No acute bony destructive change. Previous amputations as above. Fairly marked soft tissue swelling of the forefoot. Abdomen X-Ray 03/26/18 00:00 CONCLUSION: Abdomen/Pelvis CT 03/28/18 00:00 CONCLUSION: 1. Minimal increase in the trace bilateral pleural effusions with compressive atelectasis in both bases. 2. Gallstones in a benign-appearing gallbladder 3. I don't see evidence for colitis. 4. I don't see inflammatory changes in the abdomen. Chest CT 03/28/18 00:00 CONCLUSION: 1. Biventricular cardiomegaly with coarse interstitial changes in both lungs. A component of this could be failure 2. Trace bilateral pleural effusions larger on the right.. These have decreased slightly in the interval. Foot MRI 03/28/18 00:00 CONCLUSION: 1. Difficult exam to interpret because of extensive soft tissue swelling. No obvious osteomyelitis. 2. Nuclear medicine tagged white cell study may help. Chest X-Ray 03/30/18 07:48 CONCLUSION: Improving upper lobe aeration with decreasing consolidation and congestion. Stable supportive devices. Physical Exam: no acute distress, morbidly obese Head: Present: normocephalic, atraumatic, prominent facial swelling Eye: Present: improved periorbital swelling no scleral icterus ENT: Present: mucous membranes moist, oropharynx clear NECK: trachea midline LUNGs: patient mechanically ventilated, clear Cardiovascular : RRR, S1, S2 no murmurs, rubs , gallops Abdominal : soft, less distended no reaction to palpation, no audfible bowel sounds no palpable organomegaly liquid stool in rectal collection system : hernandez in place hernandez in place with small amount of clear yellow urine Extremities: edema 4+, anasarca Skin : intact, dry, no rash well perfused Neurological : sedated Psychiatric : unable to assess LINE: R IJ in place - OK Assessment and Plan - Plan sp cardiac arrest Anaerobic sepsis; veillonella ? source : GI vs osteo CT and MRI diid not reveal source of her anaerobic sepsis Xrays negative, CT/MR not feasible 2/2 clincial cond'n Acute VDRF, less O2 requirement PNA, ESBL/ ? [facility] Kleb R to zerbaxa, S acvycaz and vabomere YOU with worsening renal fnx she is improving clinically - - cont Flagyl 500 q 6 for anaerobic sepsis - cont avycaz dc micafungin dw RN
[2018-03-30] MEDS: DOPamine 400 MG/250 ML Premix 400 MG/250 ML BAG IV.CONT PRN (15:13)
[2018-03-30 17:08] LABS: Calcium 9.6 mg/dL (8.5-10.1); Carbon Dioxide 24.7 meq/L (21.0-32.0); Magnesium 2.8 mg/dL (1.5-2.5); Potassium 3.3 meq/L (3.5-5.1)
--- NOTE | 2018-03-30 17:36 | P.CONPAL ---
Consult Service: Palliative Care Requesting Physician: Bill Hollis Reason for Consult: a. To assist with evaluation and management of symptoms including:dyspnea. b. To assist medical decision maker(s) with: better understanding of current medical conditions; weighing benefits/burdens of medical treatment options; making medical treatment decisions. Primary Care Provider: UNKNOWN History of Present Illness History of Present Illness: Miss Hanna is a 52 year old female with past medical history of diabetes mellitus, hypertension, hyperlipidemia, atrial fibrillation on chronic anticoagulation with warfarin, chronic diastolic heart failure, asthma, WISAM, peripheral vascular disease, super morbid obesity. She was recently admitted to 02/24/18-03/02/18 due to hypoglycemia, fall after isolated episode of diarrhea, hypoxia requiring HFNC. She has chronic interstitial changes on CXR. Reviewed records from [facility] which indicate she completed a 7 day course of Levaquin and has been on a prednisone taper. Patient was in [facility] rehab since 03/02/18. Patient presented to [facility] emergency department on 03/18/18 via [facility] with respiratory distress. When they arrived to rehab she was found to be in respiratory distress with sats in the 70s. She was communicating with them and reportedly said "leave me alone." She went into PEA arrest. She received CPR reportedly 10-15 minutes and received 2 doses of epinephrine. LMA was placed by [facility]. LMA was removed and she was intubated by Dr. Daly after receiving etomidate 20 mg IV and succinylcholine. She has demonstrated purposeful movements post intubation, and is now on a propofol drip. Current CXR shows bibasilar opacities. WBC is 16 (previously 7.9). She has acute hypercapnic and hypoxemic respiratory failure. Per build engineer notes, hospital course: 03/19: Afebrile. Remains on 100% FiO2 PEEP of 12. Central has been placed for access due to multiple drips. Plan MRI brain today if respiratory status improves. Does not tolerate lying flat. Likely will need epoprostenol and rotaprone 03/20: Started on epoprostenol and currently on a rotor from bed. Currently on cisatracurium drip at 1 mcg/kg/min. Diuresing well. 03/21: Weaning down epoprostenol. Remains on cisatracurium drip at 6 mcg/kg/ min. Diuresis 6 L. Saturation was improved FiO2 down to 45%. 03/22: Hypothermic overnight. Currently euthermic. Excellent response to bumetanide drip. FiO2 down to 40%. PEEP down to 8. Possible discontinue paralytic agent today. 03/23: Resting comfortable in bed in no acute distress. Afebrile. Desaturated so placed back on rotor prone bed. Creatinine slowly increasing. 03/24: Afebrile. Worsening chest x-ray it appears to be volume overloaded again. +10 L past 24 hours. Will restart on bumetanide drip. Plan for bronchoscopy today. Switch to ceftazidime/avibactam secondary to ESBL positive Klebsiella pneumonia 03/25: FiO2 to 55%. Tolerating demanding drip with -2 L past 24 hours. Bronchoscopy results pending. Positive BM. Restarting tube feeding today 03/26: Cr continues to rise, although clinically continues to appear severely volume overloaded. fio2 70%. supine all night. off nimbex. off flolan. ID managing ESBL/MDRO/KPC Klebsiella and anaerobic bacteremia. 03/27: off rotaprone bed. multiple desat episodes overnight. on 100% fio2 and PEEP 10 this AM. good diuresis with net -2L/24h. bumex drip continues. awakens and follows commands. 03/28: not diuresing as well as yesterday. wbc uptrending. 2 more episodes of bradycardia, not associated with hypoxia. however, fio2 remains severely elevated. I increased her peep to 14. still arouses and moves all extremities. high concern for ongoing infectious etiology, but with high o2 requirements and intermittent bradycardia requiring atropine, at present too unstable for repeat imaging. 03/29: ct C/A/P without overt infectious source. does demonstrate radiographic evidence of biventricular dysfunction. bedside echo today demonstrates the same , and dilated IVC without respiratory variation. off vasopressors. required atropine for a HR of 15 once overnight. still 03/30: remains on APRV with hypoxia. multiple episodes of bradycardia and a 18 second pause yesterday. trialed on dobutamine but with multiple dysrhythmias. now on low-dose dopamine to mitigate bradycardia. adequate diuresis overnight. cxr improving slightly. still remains volume overloaded, and YOU persists. bhargavi hypoxic: changed to APRV 5:1, 28/0, 4/0.8. Palliative care was consulted to assist with further clarification of medical treatment goals per family request. Will arrange family meeting 03/31/18. Function/Cognitive Trajectory: Was recently in rehab after hospital course in January 2018. Review of Systems unobtainable due to endotracheal tube, unobtainable due to mental status PMFSH - History History Provided By: Medical Record, Copier Technician / EMT - Medical History Medical History: Medical History (Last Reviewed 03/21/18 @ 07:29 by Dimitri Dahl DO) Anxiety Atrial fibrillation CKD (chronic kidney disease) stage 3, GFR 30-59 ml/min Diabetes mellitus Diastolic heart failure Hx of fall Hyperlipidemia Hypertension Major depressive disorder Muscle weakness Obesity PVD (peripheral vascular disease) Respiratory failure with hypoxia - Surgical History Surgical History: Surgical History (Last Reviewed 03/21/18 @ 07:29 by Dmiitri Dahl DO) H/O fasciotomy Hx of tonsillectomy S/P debridement S/P popliteal-tibial bypass Status post amputation of great toe Status post amputation of lesser toe of left foot - Family History Family History: Family History (Last Reviewed 03/21/18 @ 07:29 by Dimitri Dahl DO) Brother HTN (hypertension) Diabetes Other Family history of cardiac disorder in father - Tobacco History Smoking Status: Unknown if ever smoked - Alcohol History How Often Do You Have a Drink Containing Alcohol: Unable to Obtain - Substance Use History Substance History: Unable to Obtain - Travel History Recent Travel in the [place] Within the Last 8 Weeks: No Recent Travel Out of the Country Within the Last 8 Weeks: No - Immunization History Tetanus Immunization: Unable to Assess Hx Influenza Vaccine This Season: Unable to Assess Medications and Allergies Active Medications: Active Medications Acetaminophen (Tylenol Liq) 650 mg PO Q6H PRN PRN Reason: FEVER Albuterol (Albuterol Neb (Prn)) 2.5 mg NEB Q2HR NEB PRN PRN Reason: SHORTNESS OF BREATH/WHEEZING Albuterol (Duoneb Neb (Juliane)) 1 ampul NEB Q4HR NEB JULIANE Last Admin: 03/30/18 14:40 Dose: 1 ampul Amlodipine Besylate (Norvasc) 10 mg PO DAILY JULIANE Last Admin: 03/30/18 09:50 Dose: 10 mg Lipase/Protease/Amylase (Hasmukh Rondon /120) 1 cap PO TID [facility] Last Admin: 03/30/18 12:10 Dose: 1 cap Artificial Tears (Genteal Severe Dry Eye Relief 0.3% Opth Gel) 1 drops EACH EYE Q8H [facility] Last Admin: 03/30/18 14:46 Dose: 1 drops Atorvastatin Calcium (Lipitor) 40 mg PO HS [facility] Last Admin: 03/29/18 20:52 Dose: 40 mg Atropine Sulfate (Atropine Inj) 0.4 mg IV.PUSH Q6H PRN PRN Reason: SYMPTOMATIC BRADYCARDIA Bacitracin (Baciguent Oint) 1 applicatio TOPICAL DAILY [facility] Last Admin: 03/30/18 09:49 Dose: 1 applicatio Bisacodyl (Dulcolax Supp) 10 mg RECTAL DAILY PRN PRN Reason: SEVERE CONSITIPATION Carvedilol (Coreg) 6.25 mg PO Q12HR [facility] Last Admin: 03/28/18 09:17 Dose: 6.25 mg Chlorhexidine Gluconate (Peridex 0.12% Oral Kit) 15 ml OROPHARYNG BID@0800, 2000 [facility] Last Admin: 03/30/18 09:46 Dose: 15 ml Dextrose (D50w Vial) 50 ml IV.PUSH UNSCH PRN PRN Reason: PER HYPOGLYCEMIA PROTOCOL Famotidine (Pepcid) 10 mg PO BID [facility] Last Admin: 03/30/18 09:51 Dose: 10 mg Glucagon (Glucagon Inj) 1 mg OTHER UNSCH PRN PRN Reason: for Hypoglycemia Protocol Glycopyrrolate (Robinul Inj) 0.4 mg IM Q4H [facility] Last Admin: 03/30/18 16:23 Dose: 0.4 mg Hydralazine HCl (Apresoline Inj) 20 mg IV.PUSH Q4H PRN PRN Reason: SBP>160, DBP>90 Last Admin: 03/24/18 06:10 Dose: 20 mg Hydralazine HCl (Apresoline) 100 mg PO Q8H [facility] Last Admin: 03/30/18 14:46 Dose: 100 mg Ceftazidime/Avibactam 0.94 gm/ (Sodium Chloride) 50 mls @ 25 mls/hr IV.SIG Q12H [facility] Last Infusion: 03/30/18 15:48 Dose: Infused Metronidazole/Sodium Chloride (Flagyl 500 Mg Inj) 100 mls @ 100 mls/hr IV.SIG Q6H [facility] Last Infusion: 03/30/18 12:10 Dose: Infused Bumetanide (Bumex Inj) 25 mg in 100 mls @ 4 mls/hr IV.CONT .Q24H [facility] Last Admin: 03/30/18 01:41 Dose: 0.25 mg/hr, 1 mls/hr Heparin Sodium/Dextrose (Heparin/D5w 25,000 U/250 Ml) 25,000 unit in 250 mls @ 10 mls/hr IV.CONT TITRATE PRN; Protocol PRN Reason: Per Protocol Last Admin: 03/29/18 18:57 Dose: 900 units/hr, 9 mls/hr Midazolam HCl (Versed Inj) 50 mg in 50 mls @ 2 mls/hr IV.CONT TITRATE PRN; Protocol PRN Reason: Per Protocol Last Admin: 03/30/18 12:45 Dose: 10 mg/hr, 10 mls/hr Fentanyl (Fentanyl 10 Mcg/Ml Premix Drip) 2,500 mcg in 250 mls @ 5 mls/hr IV.SIG TITRATE PRN; Protocol PRN Reason: Per Protocol Last Admin: 03/30/18 09:01 Dose: 250 mcg/hr, 25 mls/hr Dobutamine HCl/Dextrose (Dobutamine 250 Mg/250 Ml Premx) 250 mg in 250 mls @ 42.3 mls/hr IV.CONT .Q5H55M [facility] Last Infusion: 03/29/18 08:30 Dose: 0 mcg/kg/min, 0 mls/hr Albumin Human (Flexbumin 25% Inj) 100 mls @ 12.5 mls/hr IV.SIG Q8H [facility] Stop: 04/01/18 08:59 Last Admin: 03/30/18 16:23 Dose: 100 mls/hr Dopamine HCl/Dextrose (Dopamine 400 Mg/250 Ml Premix) 400 mg in 250 mls @ 15.863 mls/hr IV.CONT TITRATE PRN; Protocol PRN Reason: Per Protocol Last Admin: 03/30/18 15:13 Dose: 3 mcg/kg/min, 15.86 mls/hr Nicardipine HCl 25 mg/ Sodium (Chloride) 250 mls @ 50 mls/hr IV.CONT TITRATE PRN; Protocol PRN Reason: Per Protocol Last Titration: 03/30/18 12:15 Dose: Infused Norepinephrine Bitartrate 16 (mg/ Sodium Chloride) 250 mls @ 1.87 mls/hr IV.CONT TITRATE PRN; Protocol PRN Reason: See Protocol Last Titration: 03/25/18 07:21 Dose: 0 mcg/min, 0 mls/hr Insulin Detemir (Levemir Inj) 25 unit SQ DAILY [facility] Insulin Human Regular (Novolin R Correctional Sugar Inj) 0 units SQ Q4HR JULIANE; Protocol Last Admin: 03/30/18 16:22 Dose: 10 units Lactulose (Lactulose Liq) 30 ml PO DAILY PRN PRN Reason: SEVERE CONSITIPATION Last Admin: 03/29/18 08:23 Dose: 30 ml Methylprednisolone Sodium Succinate (Solumedrol Inj) 40 mg IV.PUSH Q12HR [facility] Last Admin: 03/30/18 09:51 Dose: 40 mg Metolazone (Zaroxolyn) 5 mg PO Q12H [facility] Last Admin: 03/30/18 09:49 Dose: 5 mg Oxycodone HCl (Roxicodone Intensol Liq) 20 mg PO Q4H [facility] Last Admin: 03/30/18 14:46 Dose: 20 mg Quetiapine Fumarate (Seroquel) 50 mg PO Q8HR [facility] Last Admin: 03/30/18 14:46 Dose: 50 mg Senna/Docusate Sodium (Katelynn-Colace) 1 tab PO BID [facility] Last Admin: 03/30/18 09:51 Dose: 1 tab Sennosides (Senokot) 17.2 mg PO Q12H PRN PRN Reason: Moderate Constipation Last Admin: 03/29/18 08:23 Dose: 17.2 mg Sodium Chloride (Ns Flush) 2 ml IV.FLUSH BID [facility] Last Admin: 03/30/18 09:50 Dose: 2 ml Sodium Chloride (Ns Flush) 2 ml IV.FLUSH PRN PRN PRN Reason: FLUSH AFTER USING IV ACCESS Last Admin: 03/30/18 09:50 Dose: 2 ml Sterile Water (Free Water) 300 ml NG/OG Q4HR [facility] Last Admin: 03/30/18 16:23 Dose: Not Given Terbutaline Sulfate (Brethine Inj) 1 mg SQ ONCE PRN PRN Reason: Extravasation Vitamin D (Vitamin D3) 5,000 unit PO DAILY [facility] Last Admin: 03/30/18 09:51 Dose: 5,000 unit Allergies Allergy/AdvReac Type Severity Reaction Status Date / Time ibuprofen Allergy Severe MESSES Verified 03/18/18 17:58 WITH KIDNEYS Sulfa (Sulfonamide Allergy Severe HIVES Verified 03/18/18 17:58 Antibiotics) egg Allergy Intermediate Very Upset Verified 03/18/18 17:58 Stomach milk Allergy Unknown Heartburn Verified 03/18/18 17:58 Home Medications Medication Instructions Recorded Confirmed Type allopurinol 300 mg PO DAILY 02/28/18 03/18/18 History atorvastatin 40 mg PO HS 02/28/18 03/18/18 History cholecalciferol (vitamin D3) 5,000 unit PO DAILY 02/28/18 03/18/18 History glipizide 10 mg PO BID 02/28/18 03/18/18 History insulin glargine 50 unit SUB-Q BID 02/28/18 03/18/18 History [id number] [Creon] 1 cap PO TID 02/28/18 03/18/18 History methocarbamol 750 mg PO QID 02/28/18 03/18/18 History nifedipine 90 mg PO DAILY 02/28/18 03/18/18 History omega-3 fatty acids [Fish Oil 1,000 mg PO DAILY 02/28/18 03/18/18 History Concentrate] warfarin [Coumadin] 4 mg PO DAILY@1600 03/18/18 03/18/18 History Advance Directives Living Will: Unknown Power of Photography Editor: Unknown Family/friends goals: Will arrange family meeting 03/31/18. Ethical and Legal Issues: Nurse reports sonRocael is health care decision maker. Called [facility], no written advance directives on file. No paperwork on chart. It appears she has 1 son and 1 daughter, will need to clarify to determine legal health care decision maker. Physical Exam Vital Signs: Vital Signs - 24 hr 03/29/18 18:00 03/29/18 20:00 03/29/18 20:04 Temperature 98.7 F Pulse Rate 76 76 76 Respiratory Rate 12 13 Blood Pressure 136/60 Pulse Oximetry 95 97 03/29/18 22:00 03/30/18 00:00 03/30/18 00:18 Temperature 98.5 F Pulse Rate 80 84 84 Respiratory Rate 15 19 Blood Pressure 139/61 Pulse Oximetry 97 98 03/30/18 00:50 03/30/18 01:00 03/30/18 01:10 Temperature Pulse Rate 83 82 83 Respiratory Rate 15 21 13 Blood Pressure 188/80 H 179/79 H 178/73 H Pulse Oximetry 98 98 99 03/30/18 01:20 03/30/18 01:30 03/30/18 01:40 Temperature Pulse Rate 83 82 82 Respiratory Rate 15 10 L 17 Blood Pressure 181/78 H 182/75 H 182/77 H Pulse Oximetry 98 98 98 03/30/18 01:50 03/30/18 02:00 03/30/18 02:10 Temperature Pulse Rate 81 82 80 Respiratory Rate 10 L 18 14 Blood Pressure 183/75 H 177/77 H 171/74 H Pulse Oximetry 98 100 100 03/30/18 02:20 03/30/18 02:30 03/30/18 02:40 Temperature Pulse Rate 79 79 78 Respiratory Rate 18 16 16 Blood Pressure 175/74 H 175/75 H 175/77 H Pulse Oximetry 100 100 100 03/30/18 02:50 03/30/18 03:00 03/30/18 03:30 Temperature Pulse Rate 78 77 78 Respiratory Rate 16 16 15 Blood Pressure 179/75 H Pulse Oximetry 100 100 100 03/30/18 04:00 03/30/18 04:30 03/30/18 04:36 Temperature 97.7 F Pulse Rate 78 75 75 Respiratory Rate 16 15 17 Blood Pressure 173/75 H Pulse Oximetry 100 100 100 03/30/18 05:00 03/30/18 05:30 03/30/18 06:00 Temperature Pulse Rate 74 74 74 Respiratory Rate 12 13 13 Blood Pressure 167/72 H Pulse Oximetry 100 99 98 03/30/18 06:30 03/30/18 07:00 03/30/18 07:30 Temperature Pulse Rate 75 74 72 Respiratory Rate 13 13 20 Blood Pressure Pulse Oximetry 99 99 98 03/30/18 07:53 03/30/18 08:00 03/30/18 08:30 Temperature 98.8 F Pulse Rate 77 74 Respiratory Rate 15 13 13 Blood Pressure 156/68 H Pulse Oximetry 97 99 96 03/30/18 09:00 03/30/18 09:30 07/30/18 10:00 Temperature Pulse Rate 74 74 75 Respiratory Rate 13 14 15 Blood Pressure 151/66 H Pulse Oximetry 97 97 95 03/30/18 10:30 03/30/18 11:00 03/30/18 11:30 Temperature Pulse Rate 79 76 74 Respiratory Rate 14 13 12 Blood Pressure Pulse Oximetry 96 97 97 03/30/18 11:53 03/30/18 12:00 03/30/18 12:30 Temperature 97.4 F L Pulse Rate 78 72 71 Respiratory Rate 12 12 13 Blood Pressure 139/65 Pulse Oximetry 96 96 03/30/18 13:00 03/30/18 13:30 03/30/18 14:00 Temperature Pulse Rate 72 71 74 Respiratory Rate 13 17 18 Blood Pressure 149/69 H Pulse Oximetry 96 95 97 03/30/18 14:30 03/30/18 14:40 03/30/18 15:00 Temperature Pulse Rate 74 74 74 Respiratory Rate 16 20 15 Blood Pressure Pulse Oximetry 96 96 03/30/18 15:09 03/30/18 15:30 03/30/18 16:00 Temperature 97.3 F L Pulse Rate 73 74 Respiratory Rate 12 11 L 18 Blood Pressure 158/70 H Pulse Oximetry 97 95 96 I&O: Intake & Output 03/28/18 03/29/18 03/30/18 03/31/18 06:59 06:59 06:59 06:59 Intake Total 3758 / 3758 2001 3230 / 3230 1384 / 1384 Output Total 4100 / 4100 5100 / 5100 3830 / 3830 Balance -342 / -342 -3098 / -3098 -600 / -600 1384 / 1384 Weight 138 kg 141 kg 141.5 kg Physical Exam: CONSTITUTIONAL/GENERAL: This is an obese, critically ill patient. TUBES/LINES/DRAINS: ETT, OG, right IJ central line, PIV, bilateral soft wrist restraints, [place], rectal tube, SCDs SKIN: No jaundice, rashes, or lesions. Ecchymoses on upper extremities. No wounds seen anteriorly. Skin temperature appropriate. Not diaphoretic. HEAD: Atraumatic. Normocephalic. EYES: eyes closed. ENT: Unable to assess hearing. Nose without bleeding or purulent drainage. Tongue edematous. NECK: Trachea midline. CARDIOVASCULAR: RRR. RESPIRATORY/CHEST: Diminished bibasilar with no appreciable rales. Scattered rhonchi bilaterally. GASTROINTESTINAL: Abdomen obese, soft, non-tender, nondistended OG in place. GENITOURINARY: Without palpable bladder distension. [place] catheter in place. 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 Legs revealed 2+ pitting edema bilateral lower extremities. LYMPHATICS: not examined. NEUROLOGICAL:Sedated. PSYCHIATRIC: Sedated. Diagnostic Tests Laboratory: Laboratory Results - last 72 hr 03/27/18 03/27/18 03/27/18 17:56 19:16 19:57 WBC RBC Hgb Hct MCV MCH MCHC RDW Plt Count MPV PT INR APTT Puncture Site Patient Temperature O2 Saturation ABG pH ABG pCO2 ABG pO2 ABG HCO3 ABG O2 Content ABG Base Excess ABG Methemoglobin Hemoglobin Carboxyhemoglobin O2 Delivery Device Vent Setting Inspired O2 Critical Value Sodium Potassium Chloride Carbon Dioxide Anion Gap BUN Creatinine Estimated GFR POC Glucose 155 H 150 H 116 H Random Glucose Calcium Magnesium 03/27/18 03/27/18 03/27/18 20:00 22:13 23:29 WBC RBC Hgb Hct MCV MCH MCHC RDW Plt Count MPV PT INR APTT Puncture Site Patient Temperature O2 Saturation ABG pH ABG pCO2 ABG pO2 ABG HCO3 ABG O2 Content ABG Base Excess ABG Methemoglobin Hemoglobin Carboxyhemoglobin O2 Delivery Device Vent Setting Inspired O2 Critical Value Sodium Potassium 3.9 Chloride Carbon Dioxide Anion Gap BUN Creatinine Estimated GFR POC Glucose 145 H 151 H Random Glucose Calcium Magnesium 03/28/18 03/28/18 03/28/18 01:18 02:36 05:04 WBC RBC Hgb Hct MCV MCH MCHC RDW Plt Count MPV PT INR APTT Puncture Site Patient Temperature O2 Saturation ABG pH ABG pCO2 ABG pO2 ABG HCO3 ABG O2 Content ABG Base Excess ABG Methemoglobin Hemoglobin Carboxyhemoglobin O2 Delivery Device Vent Setting Inspired O2 Critical Value Sodium Potassium Chloride Carbon Dioxide Anion Gap BUN Creatinine Estimated GFR POC Glucose 128 H 137 H 121 H Random Glucose Calcium Magnesium 03/28/18 03/28/18 03/28/18 05:35 05:35 05:35 WBC 18.4 H RBC 3.61 L Hgb 8.8 L Hct 27.2 L MCV 75.5 L MCH 24.3 L MCHC 32.2 RDW 23.5 H Plt Count 201 MPV 9.9 PT 14.0 H INR 1.4 APTT 44.3 H Puncture Site Patient Temperature O2 Saturation ABG pH ABG pCO2 ABG pO2 ABG HCO3 ABG O2 Content ABG Base Excess ABG Methemoglobin Hemoglobin Carboxyhemoglobin O2 Delivery Device Vent Setting Inspired O2 Critical Value Sodium 146 H Potassium 3.8 Chloride 107 Carbon Dioxide 27.6 Anion Gap 11 BUN 82 H Creatinine 2.31 H Estimated GFR 27 L POC Glucose Random Glucose 118 H Calcium 8.6 Magnesium 1.9 03/28/18 03/28/18 03/28/18 06:24 09:14 11:28 WBC RBC Hgb Hct MCV MCH MCHC RDW Plt Count MPV PT INR APTT Puncture Site Patient Temperature O2 Saturation ABG pH ABG pCO2 ABG pO2 ABG HCO3 ABG O2 Content ABG Base Excess ABG Methemoglobin Hemoglobin Carboxyhemoglobin O2 Delivery Device Vent Setting Inspired O2 Critical Value Sodium Potassium Chloride Carbon Dioxide Anion Gap BUN Creatinine Estimated GFR POC Glucose 132 H 122 H 122 H Random Glucose Calcium Magnesium 03/28/18 03/28/18 03/28/18 14:01 17:00 18:09 WBC RBC Hgb Hct MCV MCH MCHC RDW Plt Count MPV PT INR APTT Puncture Site Patient Temperature O2 Saturation ABG pH ABG pCO2 ABG pO2 ABG HCO3 ABG O2 Content ABG Base Excess ABG Methemoglobin Hemoglobin Carboxyhemoglobin O2 Delivery Device Vent Setting Inspired O2 Critical Value Sodium Potassium Chloride Carbon Dioxide Anion Gap BUN Creatinine Estimated GFR POC Glucose 116 H 115 H 116 H Random Glucose Calcium Magnesium 03/28/18 03/29/18 03/29/18 22:51 01:00 03:46 WBC RBC Hgb Hct MCV MCH MCHC RDW Plt Count MPV PT INR APTT Puncture Site Patient Temperature O2 Saturation ABG pH ABG pCO2 ABG pO2 ABG HCO3 ABG O2 Content ABG Base Excess ABG Methemoglobin Hemoglobin Carboxyhemoglobin O2 Delivery Device Vent Setting Inspired O2 Critical Value Sodium Potassium Chloride Carbon Dioxide Anion Gap BUN Creatinine Estimated GFR POC Glucose 151 H 113 H 127 H Random Glucose Calcium Magnesium 03/29/18 03/29/18 03/29/18 04:25 04:25 04:25 WBC 23.0 H RBC 3.65 L Hgb 8.9 L Hct 27.6 L MCV 75.7 L MCH 24.4 L MCHC 32.2 RDW 23.4 H Plt Count 214 MPV 9.7 PT 14.2 H INR 1.4 APTT Puncture Site Patient Temperature O2 Saturation ABG pH ABG pCO2 ABG pO2 ABG HCO3 ABG O2 Content ABG Base Excess ABG Methemoglobin Hemoglobin Carboxyhemoglobin O2 Delivery Device Vent Setting Inspired O2 Critical Value Sodium 144 Potassium 3.5 Chloride 107 Carbon Dioxide 25.8 Anion Gap 11 BUN 80 H Creatinine 2.16 H Estimated GFR 29 L POC Glucose Random Glucose 124 H Calcium 8.9 Magnesium 1.8 03/29/18 03/29/18 03/29/18 04:25 06:53 08:11 WBC RBC Hgb Hct MCV MCH MCHC RDW Plt Count MPV PT INR APTT 46.6 H Puncture Site Patient Temperature O2 Saturation ABG pH ABG pCO2 ABG pO2 ABG HCO3 ABG O2 Content ABG Base Excess ABG Methemoglobin Hemoglobin Carboxyhemoglobin O2 Delivery Device Vent Setting Inspired O2 Critical Value Sodium Potassium Chloride Carbon Dioxide Anion Gap BUN Creatinine Estimated GFR POC Glucose 119 H 136 H Random Glucose Calcium Magnesium 03/29/18 03/29/18 03/29/18 09:07 12:54 14:28 WBC RBC Hgb Hct MCV MCH MCHC RDW Plt Count MPV PT INR APTT Puncture Site [place] Patient Temperature 98.6 O2 Saturation 90 ABG pH 7.39 ABG pCO2 38 ABG pO2 69 ABG HCO3 22 ABG O2 Content 11.3 L ABG Base Excess -1.8 ABG Methemoglobin 1.8 Hemoglobin 8.9 L Carboxyhemoglobin 1.2 O2 Delivery Device Ventilator Vent Setting See comments Inspired O2 50 Critical Value No Sodium 142 Potassium 3.9 Chloride 105 Carbon Dioxide 22.8 Anion Gap 14 BUN 86 H Creatinine 2.19 H Estimated GFR 28 L POC Glucose 200 H Random Glucose 197 H Calcium 9.2 Magnesium 2.8 H D 03/29/18 03/29/18 03/29/18 18:05 19:57 23:07 WBC RBC Hgb Hct MCV MCH MCHC RDW Plt Count MPV PT INR APTT Puncture Site Patient Temperature O2 Saturation ABG pH ABG pCO2 ABG pO2 ABG HCO3 ABG O2 Content ABG Base Excess ABG Methemoglobin Hemoglobin Carboxyhemoglobin O2 Delivery Device Vent Setting Inspired O2 Critical Value Sodium Potassium Chloride Carbon Dioxide Anion Gap BUN Creatinine Estimated GFR POC Glucose 220 H 204 H 200 H Random Glucose Calcium Magnesium 03/30/18 03/30/18 03/30/18 01:00 03:15 04:10 WBC 21.6 H RBC 3.24 L Hgb 7.9 L Hct 24.7 L MCV 76.1 L MCH 24.4 L MCHC 32.1 RDW 23.7 H Plt Count 197 MPV 9.7 PT INR APTT Puncture Site Patient Temperature O2 Saturation ABG pH ABG pCO2 ABG pO2 ABG HCO3 ABG O2 Content ABG Base Excess ABG Methemoglobin Hemoglobin Carboxyhemoglobin O2 Delivery Device Vent Setting Inspired O2 Critical Value Sodium 141 Potassium 3.7 Chloride 104 Carbon Dioxide 26.7 Anion Gap 10 BUN 90 H Creatinine 2.36 H Estimated GFR 26 L POC Glucose 186 H Random Glucose 189 H Calcium 9.5 Magnesium 2.6 H 03/30/18 03/30/18 03/30/18 04:10 04:10 04:10 WBC RBC Hgb Hct MCV MCH MCHC RDW Plt Count MPV PT 13.7 H INR 1.4 APTT 48.5 H Puncture Site Patient Temperature O2 Saturation ABG pH ABG pCO2 ABG pO2 ABG HCO3 ABG O2 Content ABG Base Excess ABG Methemoglobin Hemoglobin Carboxyhemoglobin O2 Delivery Device Vent Setting Inspired O2 Critical Value Sodium 141 Potassium 3.6 Chloride 103 Carbon Dioxide 25.7 Anion Gap 12 BUN 87 H Creatinine 2.39 H Estimated GFR 26 L POC Glucose Random Glucose 183 H Calcium 9.6 Magnesium 2.6 H 03/30/18 03/30/18 03/30/18 08:07 11:20 15:10 WBC RBC Hgb Hct MCV MCH MCHC RDW Plt Count MPV PT INR APTT Puncture Site Patient Temperature O2 Saturation ABG pH ABG pCO2 ABG pO2 ABG HCO3 ABG O2 Content ABG Base Excess ABG Methemoglobin Hemoglobin Carboxyhemoglobin O2 Delivery Device Vent Setting Inspired O2 Critical Value Sodium Potassium Chloride Carbon Dioxide Anion Gap BUN Creatinine Estimated GFR POC Glucose 198 H 216 H 227 H Random Glucose Calcium Magnesium 03/30/18 15:20 WBC RBC Hgb Hct MCV MCH MCHC RDW Plt Count MPV PT INR APTT Puncture Site Patient Temperature O2 Saturation ABG pH ABG pCO2 ABG pO2 ABG HCO3 ABG O2 Content ABG Base Excess ABG Methemoglobin Hemoglobin Carboxyhemoglobin O2 Delivery Device Vent Setting Inspired O2 Critical Value Sodium 138 Potassium 3.3 L Chloride 101 Carbon Dioxide 24.7 Anion Gap 12 BUN 91 H Creatinine 2.41 H Estimated GFR 25 L POC Glucose Random Glucose 213 H Calcium 9.6 Magnesium 2.8 H Result Diagrams: 03/31/18 03:35 03/31/18 03:35 Microbiology: Microbiology 03/26/18 15:51 Aerobic Blood Culture - Preliminary Blood - Peripheral No growth in 4 days Anaerobic Blood Culture - Preliminary No growth in 4 days 03/26/18 14:39 Aerobic Blood Culture - Preliminary Blood - Peripheral No growth in 4 days Anaerobic Blood Culture - Preliminary No growth in 4 days 03/26/18 16:21 Urine Culture - Final Catheterized Urine No growth in 48 hours Imaging: Head CT 03/18/18 18:46 CONCLUSION: 1. Solitary 3 mm hyperdensity in the central [place] of uncertain significance. Differential considerations include a punctate calcification and acute hemorrhage. 2. No acute findings in the supratentorial brain. Head MRI 03/19/18 00:00 CONCLUSION: 1. No evidence of brainstem hemorrhage. 2. Small foci of encephalomalacia in the left occipital lobe and right cerebellum 3. No evidence of acute infarct, hemorrhage, mass or edema. 4. No evidence of enhancing intra-axial or extra-axial lesions. Venous Doppler Study 03/19/18 00:00 CONCLUSION: The study is negative for bilateral lower extremity deep venous thrombosis. Foot X-Ray 03/22/18 00:00 CONCLUSION: No acute bony destructive change. Previous amputations as above. Fairly marked soft tissue swelling of the forefoot. Abdomen X-Ray 03/26/18 00:00 CONCLUSION: Abdomen/Pelvis CT 03/28/18 00:00 CONCLUSION: 1. Minimal increase in the trace bilateral pleural effusions with compressive atelectasis in both bases. 2. Gallstones in a benign-appearing gallbladder 3. I don't see evidence for colitis. 4. I don't see inflammatory changes in the abdomen. Chest CT 03/28/18 00:00 CONCLUSION: 1. Biventricular cardiomegaly with coarse interstitial changes in both lungs. A component of this could be failure 2. Trace bilateral pleural effusions larger on the right.. These have decreased slightly in the interval. Foot MRI 03/28/18 00:00 CONCLUSION: 1. Difficult exam to interpret because of extensive soft tissue swelling. No obvious osteomyelitis. 2. Nuclear medicine tagged white cell study may help. Chest X-Ray 03/30/18 07:48 CONCLUSION: Improving upper lobe aeration with decreasing consolidation and congestion. Stable supportive devices. Patient/Family Conference Present at Family Conference: Will attempt to call family 03/31/18 to arrange family meeting as nurse reports they have left for the day. Assessment and Plan Pertinent Non-Medical Issues: Psychosocial: Never . Supported by her sonRocael. Has 4 children. Spiritual: Zoroastrian. Legal: Nurse reports Rocael garrison is health care decision maker. [facility], no written advance directives on file. No paperwork on chart. It appears she has 1 son and 1 daughter, will need to clarify to determine legal health care decision maker. Ethical issues impacting care: None. Important Contacts: * Rocael Hanna, son: [phone] * daughter: [phone] * sister: [phone] Prognosis: May be potentially reversible per build engineer, will further clarify 03/31/18. Code Status: Full Code Plan: * Nurse reports Rocael garrison is health care decision maker. [facility], no written advance directives on file. No paperwork on chart. It appears she has 1 son and 1 daughter, will need to clarify to determine legal health care decision maker. * FULL CODE. * Patient is critically ill and unstable, attached to monitor on crash cart due to instability. Will arrange to meet with Roacel garrison on 03/31/18 as he left just prior to my arrival today. Brother reported to nursing staff, "patient would not want all of this." * SYMPTOMS: dyspnea: on [facility] vent, sedated, despite sedation having difficulty with vent synchrony per nursing staff. * Palliative care will continue to monitor to assist with symptom management and clarification of treatment goals. Appreciation Thank you for the opportunity to participate in the care of Yas Hanna. Attestation Attestation: To help prompt me to consider important information that might be impacting today's encounter and assessment, information from prior notes written by myself or my colleagues may have been "brought forward" into today's note. My signature on this note, however, is an attestation that I personally performed the exam, history, and/or decision-making noted today, and, unless otherwise indicated, the interactions with patient, family, and staff as well as the review of records all occurred today. I also attest that the listed assessment and stated plan reflect my best clinical judgment today based on the combination of historical information, prior notes, and today's exam/ interactions. When time spent is documented, it refers only to time spent today by the signer, or if indicated, combined time spent today by collaborating physician/nurse practitioner.
[2018-03-30] MEDS: Potassium Chlor 40 mEq Premix 40 MEQ/100 ML PIGGYBACK IV.SIG SCH ×2 (18:30→22:46)
--- NOTE | 2018-03-30 22:07 | ECG ---
Date Performed: 03/29/2018 Time Performed: 15:12:34 PTAGE: 52 years EKG: Sinus arrhythmia. Poor R wave progression - probable normal variant Low QRS voltages in pre cordial leads Borderline ECG PREVIOUS TRACING : 03/29/2018 02.46 Since the previous tracing, no significant change noted DOCTOR: Vignesh Haley Interpretating Date/Time 03/30/2018 22:05:28
[2018-03-31] MEDS: Heparin Drip 25,000 UNIT/250 ML BAG IV.CONT PRN ×2 (00:08→23:24)
[2018-03-31] MEDS: Ceftazidime/Avibactam Inj 0.94 GM in Sodium Chlor 0.9% Inj 50 ML IV.SIG SCH ×3 (01:11→23:22)
[2018-03-31] MEDS: Oral Hygiene Kit OROPHARYNG SCH ×4 (01:11→17:14)
[2018-03-31] MEDS: Albumin Human 25% Inj 100 ML IV.SIG SCH ×3 (01:12→17:15)
[2018-03-31] MEDS: Midazolam 50 MG/50 ML Inj 50 MG/50 ML BAG IV.CONT PRN ×6 (01:13→22:52)
[2018-03-31] MEDS: Insulin NovoLIN Regular Correctional Sugar Inj SQ SCH ×7 (01:33→20:28)
[2018-03-31] MEDS: Hypromellose 0.3% Opth Gel 10 GM Bottle EACH EYE SCH ×3 (04:15→18:49)
[2018-03-31 04:46] LABS: Hematocrit 24.6 % (35.0-46.0); Hemoglobin 7.8 gm/dL (11.6-15.3); Mean Corpuscular HGB Conc 31.7 % (32.0-36.0); Mean Corpuscular Volume 75.6 fL (80.0-100.0); Mean Platelet Volume 10.4 fL (7.0-11.0); Platelet Count 212 th/mm3 (150-450); Red Blood Count 3.26 mil/mm3 (4.00-5.30); Red Cell Distribution Width 24.3 % (11.6-17.2); White Blood Count 18.9 th/mm3 (4.0-11.0)
[2018-03-31 04:49] LABS: Activated Partial Thrombo Time 52.2 sec (24.3-30.1); INR 1.2 Ratio; Prothrombin Time 12.1 sec (9.8-11.6)
[2018-03-31] MEDS: fentaNYL 10 mcg/mL Premix Drip 2,500 MCG/250 ML BAG IV.SIG PRN ×3 (04:52→23:23)
[2018-03-31 05:04] LABS: Calcium 9.4 mg/dL (8.5-10.1); Carbon Dioxide 25.8 meq/L (21.0-32.0); Magnesium 2.6 mg/dL (1.5-2.5); Potassium 3.7 meq/L (3.5-5.1)
[2018-03-31] MEDS: QUEtiapine 25 MG Tablet PO SCH ×3 (05:19→21:18)
[2018-03-31] MEDS: Chlorhexidine 0.12% Oral Kit 15 ML UDC OROPHARYNG SCH ×2 (08:05→20:37)
[2018-03-31] MEDS: Lipase/Protease/Amylase 24/76/120 DR Capsule PO SCH ×3 (08:06→17:16)
[2018-03-31] MEDS: metOLazone 5 MG Tablet PO SCH ×2 (08:06→20:31)
[2018-03-31] MEDS: Famotidine 20 MG Tablet PO SCH ×2 (08:07→20:30)
[2018-03-31] MEDS: Senna/Docusate Sodium 8.6/50 MG Tablet PO SCH ×2 (08:07→20:31)
[2018-03-31] MEDS: amLODIPine 10 MG Tablet PO SCH (08:07)
[2018-03-31] MEDS: MethylPREDNISolone Sod Succinate Inj 40 MG/ML Vial IV.PUSH SCH (08:08)
[2018-03-31] MEDS: DOPamine 400 MG/250 ML Premix 400 MG/250 ML BAG IV.CONT PRN (08:18)
[2018-03-31] MEDS ORDERED: Insulin Detemir Inj 1,000 UNIT/10 ML Vial SQ SCH (09:00)
[2018-03-31 09:27] LABS: ABG Base Excess -1.8 mmol/L (-2-2); ABG PCO2 47 mmHg (38-42); ABG PO2 69 mmHG (61-120)
[2018-03-31] MEDS ORDERED: Spironolactone 25 MG Tablet PO ONE (09:42)
--- NOTE | 2018-03-31 09:46 | P.PNCC ---
Subjective Subjective Remarks/Hospital Course: 52-year-old female with past medical history of diabetes mellitus, hypertension, hyperlipidemia, atrial fibrillation on chronic anticoagulation with warfarin, chronic diastolic heart failure, asthma, WISAM, peripheral vascular disease, super morbid obesity. She has been at [facility] since 03/02/18. [facility] JACOBO was called due to respiratory distress. When they arrived as she was found to be in respiratory distress with sats in the 70s. She was communicating with them and reportedly said "leave me alone". She then had PEA arrest. She received CPR reportedly 10-15 minutes and received 2 doses of epinephrine. LMA was placed by EVAC. LMA was removed and she was intubated by Dr. Daly after receiving etomidate 20 mg IV and succinylcholine. She has demonstrated purposeful movements post intubation, and is now on a propofol drip. She was [place] [facility] due to hypoglycemia, fall after isolated episode of diarrhea, hypoxia requiring HFNC. She has chronic interstitial changes on CXR. Reviewed records from [facility] which indicate she completed a 7 day course of Levaquin and has been on a prednisone taper. Current CXR shows bibasilar opacities. WBC is 16 ( previously 7.9). She has acute hypercapneic and hypoxemic respiratory failure. 03/19: Afebrile. Remains on 100% FiO2 PEEP of 12. Central has been placed for access due to multiple drips. Plan MRI brain today if respiratory status improves. Does not tolerate lying flat. Likely will need epoprostenol and rotaprone 03/20: Started on epoprostenol and currently on a rotor from bed. Currently on cisatracurium drip at 1 mcg/kg/min. Diuresing well. 03/21: Weaning down epoprostenol. Remains on cisatracurium drip at 6 mcg/kg/ min. Diuresis 6 L. Saturation was improved FiO2 down to 45%. 03/22: Hypothermic overnight. Currently euthermic. Excellent response to bumetanide drip. FiO2 down to 40%. PEEP down to 8. Possible discontinue paralytic agent today. 03/23: Resting comfortable in bed in no acute distress. Afebrile. Desaturated so placed back on rotor prone bed. Creatinine slowly increasing. 03/24: Afebrile. Worsening chest x-ray it appears to be volume overloaded again. +10 L past 24 hours. Will restart on bumetanide drip. Plan for bronchoscopy today. Switch to ceftazidime/avibactam secondary to ESBL positive Klebsiella pneumonia 03/25: FiO2 to 55%. Tolerating demanding drip with -2 L past 24 hours. Bronchoscopy results pending. Positive BM. Restarting tube feeding today 03/26: Cr continues to rise, although clinically continues to appear severely volume overloaded. fio2 70%. supine all night. off nimbex. off flolan. ID managing ESBL/MDRO/KPC Klebsiella and anaerobic bacteremia. 03/27: off rotaprone bed. multiple desat episodes overnight. on 100% fio2 and PEEP 10 this AM. good diuresis with net -2L/24h. bumex drip continues. awakens and follows commands. 03/28: not diuresing as well as yesterday. wbc uptrending. 2 more episodes of bradycardia, not associated with hypoxia. however, fio2 remains severely elevated. I increased her peep to 14. still arouses and moves all extremities. high concern for ongoing infectious etiology, but with high o2 requirements and intermittent bradycardia requiring atropine, at present too unstable for repeat imaging. 03/29: ct C/A/P without overt infectious source. does demonstrate radiographic evidence of biventricular dysfunction. bedside echo today demonstrates the same , and dilated IVC without respiratory variation. off vasopressors. required atropine for a HR of 15 once overnight. still very hypoxic: changed to APRV 5:1 , 28/0, 4/0.8. SUBJECTIVE 03/30: remains on APRV with hypoxia. multiple episodes of bradycardia and a 18 second pause yesterday. trialed on dobutamine but with multiple dysrhythmias. now on low-dose dopamine to mitigate bradycardia. adequate diuresis overnight. cxr improving slightly. still remains volume overloaded, and YOU persists. 03/31: mild improvements in fio2. remains on APRV. no more bradycardia today. still on dopamine to prevent pauses/bradycardia. YOU persists, but stable. unable to diurese yesterday and now net +2L despite fluid overload. must increase forced diuresis to improve hypoxemia. Objective Vital Signs / I&O: Vital Signs 03/30/18 10:00 03/30/18 10:03/30/18 11:00 Temperature Pulse Rate 75 79 76 Respiratory Rate 15 14 13 Blood Pressure 151/66 H Pulse Oximetry 95 96 97 03/30/18 11:30 03/30/18 11:53 03/30/18 12:00 Temperature 36.3 C L Pulse Rate 74 78 72 Respiratory Rate 12 12 12 Blood Pressure 139/65 Pulse Oximetry 97 96 03/30/18 12:30 03/30/18 13:00 03/30/18 13:30 Temperature Pulse Rate 71 72 71 Respiratory Rate 13 13 17 Blood Pressure Pulse Oximetry 96 96 95 03/30/18 14:00 03/30/18 14:30 03/30/18 14:40 Temperature Pulse Rate 74 74 74 Respiratory Rate 18 16 20 Blood Pressure 149/69 H Pulse Oximetry 97 96 03/30/18 15:00 03/30/18 15:09 03/30/18 15:30 Temperature Pulse Rate 74 73 Respiratory Rate 15 12 11 L Blood Pressure Pulse Oximetry 96 97 95 03/30/18 16:00 03/30/18 16:30 03/30/18 17:00 Temperature 36.3 C L Pulse Rate 74 74 79 Respiratory Rate 18 13 11 L Blood Pressure 158/70 H Pulse Oximetry 96 95 95 03/30/18 17:30 03/30/18 18:00 03/30/18 18:30 Temperature Pulse Rate 78 76 75 Respiratory Rate 11 L 11 L 13 Blood Pressure 155/70 H Pulse Oximetry 95 94 L 95 03/30/18 19:00 03/30/18 19:30 03/30/18 19:56 Temperature Pulse Rate 75 74 75 Respiratory Rate 10 L 10 L 21 Blood Pressure Pulse Oximetry 94 L 94 L 94 L 03/30/18 20:00 03/30/18 20:30 03/30/18 21:00 Temperature 36.3 C L Pulse Rate 74 74 74 Respiratory Rate 10 L 14 17 Blood Pressure 160/71 H Pulse Oximetry 94 L 99 99 03/30/18 21:30 03/30/18 22:00 03/30/18 22:30 Temperature Pulse Rate 79 79 77 Respiratory Rate 12 14 16 Blood Pressure 160/71 H Pulse Oximetry 95 97 96 03/30/18 22:37 03/30/18 23:00 03/30/18 23:17 Temperature Pulse Rate 79 76 75 Respiratory Rate 14 18 23 Blood Pressure 151/66 H Pulse Oximetry 97 96 96 03/30/18 23:30 03/31/18 00:00 03/31/18 00:30 Temperature Pulse Rate 75 75 75 Respiratory Rate 12 15 11 L Blood Pressure 165/74 H Pulse Oximetry 97 97 96 03/31/18 01:00 03/31/18 01:30 03/31/18 02:00 Temperature Pulse Rate 75 78 86 Respiratory Rate 14 18 15 Blood Pressure 159/75 H 173/77 H Pulse Oximetry 96 96 95 03/31/18 02:30 03/31/18 03:00 03/31/18 03:30 Temperature Pulse Rate 84 83 82 Respiratory Rate 15 19 12 Blood Pressure 158/73 H Pulse Oximetry 94 L 94 L 93 L 03/31/18 04:00 03/31/18 04:01 03/31/18 04:26 Temperature 37.2 C Pulse Rate 83 82 82 Respiratory Rate 26 H 14 27 H Blood Pressure 163/75 H 183/81 H Pulse Oximetry 94 L 98 96 03/31/18 04:30 03/31/18 05:00 03/31/18 05:30 Temperature Pulse Rate 80 86 83 Respiratory Rate 17 11 L 11 L Blood Pressure 162/78 H Pulse Oximetry 96 94 L 94 L 03/31/18 06:00 03/31/18 06:05 03/31/18 06:30 Temperature Pulse Rate 80 80 78 Respiratory Rate 11 L 11 L 23 Blood Pressure 186/102 H 182/84 H Pulse Oximetry 94 L 94 L 94 L 03/31/18 07:00 03/31/18 07:30 03/31/18 07:35 Temperature Pulse Rate 80 77 Respiratory Rate 22 28 H 29 H Blood Pressure Pulse Oximetry 94 L 92 L 95 03/31/18 08:00 03/31/18 08:30 03/31/18 09:00 Temperature 36.6 C Pulse Rate 79 86 82 Respiratory Rate 13 12 11 L Blood Pressure 170/78 H 164/75 H Pulse Oximetry 93 L 95 94 L Intake & Output 03/30/18 03/31/18 03/31/18 18:59 06:59 18:59 Intake Total 3087 / 3087 2570 / 2570 100 / 100 Output Total 1950 / 1950 1600 / 1600 Balance 1137 / 1137 970 / 970 100 / 100 Weight 142.5 kg Intake: IV 1884 / 1884 1670 / 1670 100 / 100 Bumex Inj 25 mg In 100 ml @ 1 100 / 100 MG/HR 4 mls/hr IV.CONT .Q24H JACKI Rx#:[id number] DOPamine 400 MG/250 ML Premix 250 / 250 400 mg In 250 ml @ 3 MCG/KG/MIN 15.863 mls/hr IV.CONT TITRATE PRN Rx#:[id number] DOPamine 800 MG/500 ML Premix 384 / 384 800 mg In 500 ml @ 3 MCG/KG/MIN 15.863 mls/hr IV.CONT TITRATE PRN Rx#:[id number] Heparin/D5W 25,000 U/250 mL 25, 240 / 240 000 unit In 250 ml @ 1,000 UNITS/HR 10 mls/hr IV.CONT TITRATE PRN Rx#:[id number] Versed Inj 50 mg In 50 ml @ 2 150 / 150 150 / 150 MG/HR 2 mls/hr IV.CONT TITRATE PRN Rx#:[id number] Cardene Inj 25 MG In NS Inj 240 250 / 250 ML @ 5 MG/HR 50 mls/hr IV.CONT TITRATE PRN Rx#:[id number] Flexbumin 25% Inj 100 ML @ 12.5 200 / 200 100 / 100 100 / 100 mls/hr IV.SIG Q8H JACKI Rx#: [id number] Avycaz Inj 0.94 GM In NS Inj 50 100 / 100 50 / 50 ML @ 25 mls/hr IV.SIG Q12H JACKI Rx#:[id number] KCl 40 mEq Premix Inj 40 meq In 100 / 100 100 ml @ 25 mls/hr IV.SIG Q4H JACKI Rx#:[id number] fentaNYL 10 mcg/mL Premix Drip 500 / 500 480 / 480 2,500 mcg In 250 ml @ 50 MCG/HR 5 mls/hr IV.SIG TITRATE PRN Rx #:[id number] Flagyl 500 MG Inj 100 ML @ 100 200 / 200 300 / 300 mls/hr IV.SIG Q6H JACKI Rx#: [id number] Tube Feeding 303 / 303 0 / 0 Water Bolus Amount 900 / 900 900 / 900 Output: Stool 150 / 150 100 / 100 Urine Amount (Catheter) 1800 / 1800 1500 / 1500 Indwelling Urethral Catheter 1800 / 1800 1500 / 1500 Other: Date of Last Bowel Movement 03/30/18 03/31/18 Result Diagrams: 03/31/18 03:35 03/31/18 03:35 Objective Remarks: GENERAL: 52-year-old female patient with an elevated BMI who is lying in bed orotracheally intubated. SKIN: Intertriginous lesion with erythema and satellite lesions under left breast. Skin breakdown over medial aspect of left ankle. HEAD: Atraumatic. Normocephalic. EYES: bilateral pupils sluggishly reactive. No scleral icterus. No injection or drainage. ENT: No nasal bleeding or discharge. Mucous membranes pink and moist. Tongue and lip/oral mucosa is swollen and edematous.. Covered with Vaseline gauze. NECK: Trachea midline. No JVD. CARDIOVASCULAR: RRR. sinus. RESPIRATORY: Diminished bibasilar with no appreciable rales. Scattered rhonchi bilaterally. GASTROINTESTINAL: Abdomen obese, soft, non-tender, nondistended OG in place. 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 Legs revealed 2+ pitting edema bilateral lower extremities. NEUROLOGICAL: RASS -2/-3. awakens and follows intermittent commands. moves all extremities. Assessment and Plan - Assessment and Plan Plan: Assessment: 52yF with severe ARDS and organ failure secondary to MDRO/ESBL/KPC Klebsiella and Veillonella bacteremia. remains very critically ill. does still appear to be volume overloaded combined with significant myocardial dysfunction. continue dopamine to prevent bradycardia. continue APRV mode of ventilation. continue forced diuresis. Family concerned about goals of care and if this level of care was consistent with patient's wishes. I think it is hernandez to get palliative care involved. however, it does appear that given her young age, we could successfully rehabilitate her to a functional status at least consistent with her prior functional status at her SNF, and possibly improved depending on her clinical course. Of course this would take months of rehabilitation, and will likely include trach/peg due to her severe ARDS and hypoxia. I would support aggressive measures at this point, unless it becomes clear that the patient has a strong opinion against such measures. Remains critically ill today with multiple ongoing life-threatening organ dysfunction. NEURO/PSYCH: Acute encephalopathy - secondary to hypercapnia, improving. Abnormal brain CT with 3 mm hyperdensity in central [place] Major depressive disorder NOS Chronic opioid use Encephalomalacia right cerebellum/left occipital lobe scheduled oxycodone 20mg po q4h seroquel 50mg po q8h for delirium. versed and fentanyl for goal RASS -2. Followup CT brain - . Solitary 3 mm hyperdensity in the central [place] of uncertain significance. Differential considerations include a punctate calcification and acute hemorrhage MRI brain left occipital lobe and right cerebellum. She does not meet criteria for induced therapeutic hypothermia because she is following commands post CPR. Holding nabumetone 500 mg twice daily, methocarbamol 750 mg 4 times daily and oxycodone 10 mg every 6 hours Holding gabapentin 200 mg 3 times daily Holding tizanidine 4 mg 3 times daily RESP: Acute hypercapnic and hypoxemic respiratory failure Severe ARDS Acute asthma exacerbation Healthcare associated pneumonia WISAM/OHS Prior tobacco abuse Bilateral pleural effusions right 2.2 cm. Left 1.3 cm LMA was placed in the field by EVAC. Intubated in ED 03/18 Ventilator bundle On albuterol/ipratropium aerosols every 4 hours with albuterol aerosols every 2 hours as needed for dyspnea Weaned off epoprostenol 03/23 Spontaneous breathing trials when clinically indicated. Not today. remains hypoxic on aprv. CT thorax revealed right middle lobe/lower lobe consolidation left lower lobe consolidation. Right pleural effusion 2.2 cm. Left pleural effusion 1.3 cm Methylprednisolone succinate 40 mg IV every 12 hours. Antibiotics as per below. CXR still with pulmonary edema superimposed on ARDS. wean Phigh to 24 from . stretch Thigh for goal I:E 6:1 today. repeat ABG today CT chest/abd/pelvis 03/28: biventricular enlargement, pulmonary edema. ABG and CXR in AM. CV: Hypertension Hyperlipidemia Chronic diastolic heart failure Paroxysmal atrial fibrillation on chronic anti-coagulation with warfarin Peripheral vascular disease/peripheral arterial disease Elevated troponin intermittent bradycardia Cor pulmonale biventricular dysfunction Holding home medication of clonidine 0.1 mg every 6 hours nifedipine 90 mg daily. holding carvedilol 2D echo 02/24/18ejection fraction 50%. Wall thickness upper limits of normal. Trace MR. Lactic acid cleared Continue atorvastatin 40 mg daily Doppler bilateral upper and lower extremities with subtherapeutic INR revealed no acute thrombus heparin drip. intermittent bradycardia prevents restarting home clonidine hold carvedilol prn atropine continue dopamine infusion amlodipine 10mg po daily hydralazine 100mg po q8h glycopyrrolate to 0.4mg IM q4h. continue bumex drip at 1mg/hr. continue metolazone 5mg po q12h one dose of spironolactone 25mg po today need to achieve net negative fluid balance. GI: History of GERD Chronic pancreatitis insufficiency Hypoalbuminemia vital high-protein goal 55 cc an hour per GIs recommendation Famotidine for GI prophylaxis Docusate sodium/senna 1 tablet twice daily for bowel regimen Creon home medication 3 times daily FEN/RENAL: Acute kidney injury superimposed on CKD Chronic kidney disease stage III Hypernatremia Hypokalemia Acute severe intravascular volume overload with pulmonary edema [place] catheter was placed in the emergency department. Monitor intake and output. Monitor electrolytes and replace as indicated Free water 300 every 4 hours. Creatinine is stable, though remains elevated. Diuretic plan: bumex at 1mg/hr continues drip metolazone 5mg po q12h continuous albumin infusion to maintain intravascular volume. one dose of spironolactone 25mg po today. ID: Acute healthcare associated pneumonia -ESBL positive Klebsiella pneumonia Veillonella species bacteremia Metronidazole 500 every 6 hours, ceftazidime/avibactam day #4 Discontinue piperacillin/tazobactam 03/24 Discontinue 03/22 cefepime 2 g IV every 12 hours, azithromycin 500 mg daily and vancomycin Consultation to ID workup Veillonella species bacteremia Blood cultures 2 03/18 Veillonella spp. Repeat 03/20 no growth to date Sputum, ESBL positive Klebsiella pneumonia Pneumococcal urinary antigens, influenza a and B and chlamydia and mycoplasma all pending/negative HEME: Leukocytosis Chronic anemia/normocytic Chronic anti-coagulation with warfarin 4 mg daily. INR target is 2-3. Monitor CBC daily. Follow trends No indication for transfusion of blood products at this time. Discontinued heparin drip 03/22, restarted 03/26. heparin drip ENDO: Diabetes mellitus History of gout d/c insulin drip and transition to SSI q4h high scale increase levemir to 25 units SQ daily Holding glipizide 10 mg twice daily and insulin glargine/home medication Holding allopurinol 300 mg daily/home medication MSK: Elevated BMI Osteoporosis/osteoarthritis PT evaluate and treat Okay to hold cholecalciferol 5000 units daily PROPH: SCDs for DVT prophylaxis. Heparin drip ACCESS: Right IJ CVL placed 03/19. Right axillary arterial line placed 03/19: must remain today, still critically ill. Critical care time 35 minutes, exclusive of separately billed procedures.
[2018-03-31] MEDS: niCARdipine Inj 25 MG in Sodium Chlor 0.9% Inj 240 ML IV.CONT PRN ×3 (10:14→22:00)
[2018-03-31] MEDS: Sod Chloride 0.9% Inj 1,000 ML OTHER SCH (10:46)
[2018-03-31] MEDS: Insulin Detemir Inj 1,000 UNIT/10 ML Vial SQ SCH (11:34)
--- NOTE | 2018-03-31 12:39 | P.PNID ---
Subjective Remarks: improving gradually On 40 % FiO2 afebrile Antibiotics: avicaz flagyl Allergies/Adverse Reactions: Allergies ibuprofen Allergy (Severe, Verified 03/18/18 17:58) MESSES WITH KIDNEYS Sulfa (Sulfonamide Antibiotics) Allergy (Severe, Verified 03/18/18 17:58) HIVES egg Allergy (Intermediate, Verified 03/18/18 17:58) Very Upset Stomach milk Allergy (Unknown, Verified 03/18/18 17:58) Heartburn Objective Vital Signs 03/30/18 12:30 03/30/18 13:00 03/30/18 13:30 Temperature Pulse Rate 71 72 71 Respiratory Rate 13 13 17 Blood Pressure Pulse Oximetry 96 96 95 03/30/18 14:00 03/30/18 14:30 03/30/18 14:40 Temperature Pulse Rate 74 74 74 Respiratory Rate 18 16 20 Blood Pressure 149/69 H Pulse Oximetry 97 96 03/30/18 15:00 03/30/18 15:09 03/30/18 15:30 Temperature Pulse Rate 74 73 Respiratory Rate 15 12 11 L Blood Pressure Pulse Oximetry 96 97 95 03/30/18 16:00 03/30/18 16:30 03/30/18 17:00 Temperature 97.3 F L Pulse Rate 74 74 79 Respiratory Rate 18 13 11 L Blood Pressure 158/70 H Pulse Oximetry 96 95 95 03/30/18 17:30 03/30/18 18:00 03/30/18 18:30 Temperature Pulse Rate 78 76 75 Respiratory Rate 11 L 11 L 13 Blood Pressure 155/70 H Pulse Oximetry 95 94 L 95 03/30/18 19:00 03/30/18 19:30 03/30/18 19:56 Temperature Pulse Rate 75 74 75 Respiratory Rate 10 L 10 L 21 Blood Pressure Pulse Oximetry 94 L 94 L 94 L 03/30/18 20:00 03/30/18 20:30 03/30/18 21:00 Temperature 97.3 F L Pulse Rate 74 74 74 Respiratory Rate 10 L 14 17 Blood Pressure 160/71 H Pulse Oximetry 94 L 99 99 03/30/18 21:30 03/30/18 22:00 03/30/18 22:30 Temperature Pulse Rate 79 79 77 Respiratory Rate 12 14 16 Blood Pressure 160/71 H Pulse Oximetry 95 97 96 03/30/18 22:37 03/30/18 23:00 03/30/18 23:17 Temperature Pulse Rate 79 76 75 Respiratory Rate 14 18 23 Blood Pressure 151/66 H Pulse Oximetry 97 96 96 03/30/18 23:30 03/31/18 00:00 03/31/18 00:30 Temperature Pulse Rate 75 75 75 Respiratory Rate 12 15 11 L Blood Pressure 165/74 H Pulse Oximetry 97 97 96 03/31/18 01:00 03/31/18 01:30 03/31/18 02:00 Temperature Pulse Rate 75 78 86 Respiratory Rate 14 18 15 Blood Pressure 159/75 H 173/77 H Pulse Oximetry 96 96 95 03/31/18 02:30 03/31/18 03:00 03/31/18 03:30 Temperature Pulse Rate 84 83 82 Respiratory Rate 15 19 12 Blood Pressure 158/73 H Pulse Oximetry 94 L 94 L 93 L 03/31/18 04:00 03/31/18 04:01 03/31/18 04:26 Temperature 98.9 F Pulse Rate 83 82 82 Respiratory Rate 26 H 14 27 H Blood Pressure 163/75 H 183/81 H Pulse Oximetry 94 L 98 96 03/31/18 04:30 03/31/18 05:00 03/31/18 05:30 Temperature Pulse Rate 80 86 83 Respiratory Rate 17 11 L 11 L Blood Pressure 162/78 H Pulse Oximetry 96 94 L 94 L 03/31/18 06:00 03/31/18 06:05 03/31/18 06:30 Temperature Pulse Rate 80 80 78 Respiratory Rate 11 L 11 L 23 Blood Pressure 186/102 H 182/84 H Pulse Oximetry 94 L 94 L 94 L 03/31/18 07:00 03/31/18 07:30 03/31/18 07:35 Temperature Pulse Rate 80 77 Respiratory Rate 22 28 H 29 H Blood Pressure Pulse Oximetry 94 L 92 L 95 03/31/18 08:00 03/31/18 08:30 03/31/18 09:00 Temperature 97.9 F Pulse Rate 79 86 83 Respiratory Rate 13 12 11 L Blood Pressure 170/78 H 164/75 H Pulse Oximetry 93 L 95 94 L 03/31/18 09:30 03/31/18 10:00 03/31/18 10:30 Temperature Pulse Rate 80 80 78 Respiratory Rate 11 L 20 23 Blood Pressure 192/85 H Pulse Oximetry 95 94 L 95 03/31/18 11:00 03/31/18 11:18 03/31/18 11:30 Temperature Pulse Rate 79 77 76 Respiratory Rate 21 24 21 Blood Pressure Pulse Oximetry 93 L 97 95 03/31/18 12:00 Temperature 97.8 F Pulse Rate 78 Respiratory Rate 26 H Blood Pressure 172/77 H Pulse Oximetry 93 L Intake & Output 03/30/18 03/31/18 03/31/18 18:59 06:59 18:59 Intake Total 3087 / 3087 2570 / 2570 150 / 150 Output Total 1950 / 1950 1600 / 1600 Balance 1137 / 1137 970 / 970 150 / 150 Weight 142.5 kg Intake: IV 1884 / 1884 1670 / 1670 150 / 150 Bumex Inj 25 mg In 100 ml @ 1 100 / 100 MG/HR 4 mls/hr IV.CONT .Q24H [facility] Rx#:[id number] DOPamine 400 MG/250 ML Premix 250 / 250 400 mg In 250 ml @ 3 MCG/KG/MIN 15.863 mls/hr IV.CONT TITRATE PRN Rx#:[id number] DOPamine 800 MG/500 ML Premix 384 / 384 800 mg In 500 ml @ 3 MCG/KG/MIN 15.863 mls/hr IV.CONT TITRATE PRN Rx#:[id number] Heparin/D5W 25,000 U/250 mL 25, 240 / 240 000 unit In 250 ml @ 1,000 UNITS/HR 10 mls/hr IV.CONT TITRATE PRN Rx#:[id number] Versed Inj 50 mg In 50 ml @ 2 150 / 150 150 / 150 50 / 50 MG/HR 2 mls/hr IV.CONT TITRATE PRN Rx#:[id number] Cardene Inj 25 MG In NS Inj 240 250 / 250 ML @ 5 MG/HR 50 mls/hr IV.CONT TITRATE PRN Rx#:[id number] Flexbumin 25% Inj 100 ML @ 12.5 200 / 200 100 / 100 100 / 100 mls/hr IV.SIG Q8H [facility] Rx#: [id number] Avycaz Inj 0.94 GM In NS Inj 50 100 / 100 50 / 50 ML @ 25 mls/hr IV.SIG Q12H [facility] Rx#:[id number] KCl 40 mEq Premix Inj 40 meq In 100 / 100 100 ml @ 25 mls/hr IV.SIG Q4H [facility] Rx#:[id number] fentaNYL 10 mcg/mL Premix Drip 500 / 500 480 / 480 2,500 mcg In 250 ml @ 50 MCG/HR 5 mls/hr IV.SIG TITRATE PRN Rx #:[id number] Flagyl 500 MG Inj 100 ML @ 100 200 / 200 300 / 300 mls/hr IV.SIG Q6H [facility] Rx#: [id number] Tube Feeding 303 / 303 0 / 0 Water Bolus Amount 900 / 900 900 / 900 Output: Stool 150 / 150 100 / 100 Urine Amount (Catheter) 1800 / 1800 1500 / 1500 Indwelling Urethral Catheter 1800 / 1800 1500 / 1500 Other: Date of Last Bowel Movement 03/30/18 03/31/18 03/26/18 15:51 Blood - Peripheral Aerobic Blood Culture - Final No growth in 5 days 03/26/18 15:51 Blood - Peripheral Anaerobic Blood Culture - Final No growth in 5 days 03/26/18 14:39 Blood - Peripheral Aerobic Blood Culture - Final No growth in 5 days 03/26/18 14:39 Blood - Peripheral Anaerobic Blood Culture - Final No growth in 5 days 03/26/18 16:21 Catheterized Urine Urine Culture - Final No growth in 48 hours Lab - Hematology Results 03/30/18 03/31/18 04:10 03:35 WBC 21.6 H 18.9 H RBC 3.24 L 3.26 L Hgb 7.9 L 7.8 L Hct 24.7 L 24.6 L MCV 76.1 L 75.6 L MCH 24.4 L 24.0 L MCHC 32.1 31.7 L RDW 23.7 H 24.3 H Plt Count 197 212 MPV 9.7 10.4 Lab - Chemistry Results 03/29/18 03/29/18 03/29/18 12:54 14:28 18:05 Sodium 142 Potassium 3.9 Chloride 105 Carbon Dioxide 22.8 Anion Gap 14 BUN 86 H Creatinine 2.19 H Estimated GFR 28 L POC Glucose 200 H 220 H Random Glucose 197 H Calcium 9.2 Magnesium 2.8 H D 03/29/18 03/29/18 03/30/18 19:57 23:07 01:00 Sodium 141 Potassium 3.7 Chloride 104 Carbon Dioxide 26.7 Anion Gap 10 BUN 90 H Creatinine 2.36 H Estimated GFR 26 L POC Glucose 204 H 200 H Random Glucose 189 H Calcium 9.5 Magnesium 2.6 H 03/30/18 03/30/18 03/30/18 03:15 04:10 08:07 Sodium 141 Potassium 3.6 Chloride 103 Carbon Dioxide 25.7 Anion Gap 12 BUN 87 H Creatinine 2.39 H Estimated GFR 26 L POC Glucose 186 H 198 H Random Glucose 183 H Calcium 9.6 Magnesium 2.6 H 03/30/18 03/30/18 03/30/18 11:20 15:10 15:20 Sodium 138 Potassium 3.3 L Chloride 101 Carbon Dioxide 24.7 Anion Gap 12 BUN 91 H Creatinine 2.41 H Estimated GFR 25 L POC Glucose 216 H 227 H Random Glucose 213 H Calcium 9.6 Magnesium 2.8 H 03/30/18 03/31/18 03/31/18 20:27 01:29 03:35 Sodium 140 Potassium 3.7 Chloride 101 Carbon Dioxide 25.8 Anion Gap 13 BUN 91 H Creatinine 2.44 H Estimated GFR 25 L POC Glucose 226 H 200 H Random Glucose 207 H Calcium 9.4 Magnesium 2.6 H 03/31/18 03/31/18 03/31/18 04:27 07:33 10:56 Sodium Potassium Chloride Carbon Dioxide Anion Gap BUN Creatinine Estimated GFR POC Glucose 195 H 190 H 205 H Random Glucose Calcium Magnesium Imaging: ITS Impressions Head CT 03/18/18 18:46 CONCLUSION: 1. Solitary 3 mm hyperdensity in the central [place] of uncertain significance. Differential considerations include a punctate calcification and acute hemorrhage. 2. No acute findings in the supratentorial brain. Head MRI 03/19/18 00:00 CONCLUSION: 1. No evidence of brainstem hemorrhage. 2. Small foci of encephalomalacia in the left occipital lobe and right cerebellum 3. No evidence of acute infarct, hemorrhage, mass or edema. 4. No evidence of enhancing intra-axial or extra-axial lesions. Venous Doppler Study 03/19/18 00:00 CONCLUSION: The study is negative for bilateral lower extremity deep venous thrombosis. Foot X-Ray 03/22/18 00:00 CONCLUSION: No acute bony destructive change. Previous amputations as above. Fairly marked soft tissue swelling of the forefoot. Abdomen X-Ray 03/26/18 00:00 CONCLUSION: Abdomen/Pelvis CT 03/28/18 00:00 CONCLUSION: 1. Minimal increase in the trace bilateral pleural effusions with compressive atelectasis in both bases. 2. Gallstones in a benign-appearing gallbladder 3. I don't see evidence for colitis. 4. I don't see inflammatory changes in the abdomen. Chest CT 03/28/18 00:00 CONCLUSION: 1. Biventricular cardiomegaly with coarse interstitial changes in both lungs. A component of this could be failure 2. Trace bilateral pleural effusions larger on the right.. These have decreased slightly in the interval. Foot MRI 03/28/18 00:00 CONCLUSION: 1. Difficult exam to interpret because of extensive soft tissue swelling. No obvious osteomyelitis. 2. Nuclear medicine tagged white cell study may help. Chest X-Ray 03/30/18 07:48 CONCLUSION: Improving upper lobe aeration with decreasing consolidation and congestion. Stable supportive devices. Physical Exam: no acute distress, morbidly obese Head: Present: normocephalic, atraumatic, prominent facial swelling Eye: Present: improved periorbital swelling no scleral icterus ENT: Present: mucous membranes moist, oropharynx clear NECK: trachea midline LUNGs: patient mechanically ventilated, clear Cardiovascular : RRR, S1, S2 no murmurs, rubs , gallops Abdominal : soft, less distended no reaction to palpation, no audfible bowel sounds no palpable organomegaly liquid stool in rectal collection system : hernandez in place hernandez in place with small amount of clear yellow urine Extremities: edema improved, less prominent 2-3 + prominent tree bark meeks Skin : intact, dry, no rash well perfused Neurological : sedated Psychiatric : unable to assess LINE: R IJ in place - OK Assessment and Plan - Plan sp cardiac arrest Anaerobic sepsis; veillonella ? source : GI vs osteo CT and MRI diid not reveal source of her anaerobic sepsis Xrays negative, CT/MR not feasible 2/2 clincial cond'n Acute VDRF, less O2 requirement PNA, ESBL/ ? [facility] Kleb R to zerbaxa, S acvycaz and vabomere YOU - stable she is improving clinically - - dc Flagyl - cont avycaz for 1-2 more days if keeps improving - up the dose if GFR improves - will need coloscopy after she revoeres (hem + stool and anaerobic sepsis) jeanne RN
--- NOTE | 2018-03-31 15:17 | P.PNPAL ---
Reason for Visit Reason for visit: a. To assist with evaluation and management of symptoms including:dyspnea. b. To assist medical decision maker(s) with: better understanding of current medical conditions; weighing benefits/burdens of medical treatment options; making medical treatment decisions. Subjective Subjective/Interval History: Patient seen and examined in ICU. No family at bedside. Discussed with nursing staff. Patient remains on mech vent on APRV with mild FiO2 improvements. She is intermittently using accessory muscles to breath. Remains sedated. Bradycardia has improved today, remains on Dopamine drip. Creatinine has increased slightly over the past few days from 2.16 to 2.44 today. Value Engineer note indicates plan for increased diuresis today to improve hypoxemia. Clinical data: * WBC 8.9, hemoglobin 7.8, hematocrit 24.6, platelets 212 * BUN 91, creatinine 2.44, sodium 140, potassium 3.7, GFR 25 ID, Dr. Dailey following with plans to continue avycaz for 1-2 more days. Will need colonoscopy if she recovers due to heme + stool. Nurse indicates some family has been upset thinking the patient was going to be taken off of life support. I advised I have not spoken with any family and still need to clarify legal decision maker. I told her I will call family to introduce palliative care services and offer family meeting to ensure there is adequate information being shared with all family members. Family/Friend Interactions: No family at bedside. Called son, Rocael to introduce pallaitive care, obtain additional history and to provide medical update. He tells me she has no written advance directives. He says he lives with her and makes her decisions. She has 4 adult children. She lives with Rocael. She is not . She has many siblings (3 brother and 1 sister best I can tell). I have asked Rocael to have his siblings call me to discuss whether or not they wish to participate in medical decision making. I explained I just nee to hear from each of them that they do not want to make decisions and he will be able to serve as HCP. If this is in keeping with family wishes, advised we can assist in completion of health care proxy paperwork. He will ask his siblings to call me. Offered family meeting with patient's children and siblings. He will attempt to arrange a time when we can meet. He thinks this will help. He tells me he was concerned to hear from patient brother that her condition is so severe as he thought she was fine expect for the pneumonia. Update provided I explained she remains critically ill. I advised that Dr. Hollis feels that given her young age , we could successfully rehabilitate her to a functional status at least consistent with her prior functional status at her SNF, and possibly improved depending on her clinical course. Of course this could take months of rehabilitation, and will likely include trach/peg due to her severe ARDS and hypoxia. I also explained we will be here to provide updates and explanation throughout clinical course. He also understands her condition could worsen. He will attempt to arrange time for family meeting and call if family is able to meet in the coming day(s). He will have his siblings call regarding health care decisions. Advance Directives Living Will: Never completed Health Care Surrogate: Never completed Durable Power of Neurology Epilepsy Physician: Never completed Objective Vital Signs: Vital Signs 03/30/18 15:00 03/30/18 15:09 03/30/18 15:30 Temperature Pulse Rate 74 73 Respiratory Rate 15 12 11 L Blood Pressure Pulse Oximetry 96 97 95 03/30/18 16:00 03/30/18 16:30 03/30/18 17:00 Temperature 97.3 F L Pulse Rate 74 74 79 Respiratory Rate 18 13 11 L Blood Pressure 158/70 H Pulse Oximetry 96 95 95 03/30/18 17:30 03/30/18 18:00 03/30/18 18:30 Temperature Pulse Rate 78 76 75 Respiratory Rate 11 L 11 L 13 Blood Pressure 155/70 H Pulse Oximetry 95 94 L 95 03/30/18 19:00 03/30/18 19:30 03/30/18 19:56 Temperature Pulse Rate 75 74 75 Respiratory Rate 10 L 10 L 21 Blood Pressure Pulse Oximetry 94 L 94 L 94 L 03/30/18 20:00 03/30/18 20:30 03/30/18 21:00 Temperature 97.3 F L Pulse Rate 74 74 74 Respiratory Rate 10 L 14 17 Blood Pressure 160/71 H Pulse Oximetry 94 L 99 99 03/30/18 21:30 03/30/18 22:00 03/30/18 22:30 Temperature Pulse Rate 79 79 77 Respiratory Rate 12 14 16 Blood Pressure 160/71 H Pulse Oximetry 95 97 96 03/30/18 22:37 03/30/18 23:00 03/30/18 23:17 Temperature Pulse Rate 79 76 75 Respiratory Rate 14 18 23 Blood Pressure 151/66 H Pulse Oximetry 97 96 96 03/30/18 23:30 03/31/18 00:00 03/31/18 00:30 Temperature Pulse Rate 75 75 75 Respiratory Rate 12 15 11 L Blood Pressure 165/74 H Pulse Oximetry 97 97 96 03/31/18 01:00 03/31/18 01:30 03/31/18 02:00 Temperature Pulse Rate 75 78 86 Respiratory Rate 14 18 15 Blood Pressure 159/75 H 173/77 H Pulse Oximetry 96 96 95 03/31/18 02:30 03/31/18 03:00 03/31/18 03:30 Temperature Pulse Rate 84 83 82 Respiratory Rate 15 19 12 Blood Pressure 158/73 H Pulse Oximetry 94 L 94 L 93 L 03/31/18 04:00 03/31/18 04:01 03/31/18 04:26 Temperature 98.9 F Pulse Rate 83 82 82 Respiratory Rate 26 H 14 27 H Blood Pressure 163/75 H 183/81 H Pulse Oximetry 94 L 98 96 03/31/18 04:30 03/31/18 05:00 03/31/18 05:30 Temperature Pulse Rate 80 86 83 Respiratory Rate 17 11 L 11 L Blood Pressure 162/78 H Pulse Oximetry 96 94 L 94 L 03/31/18 06:00 03/31/18 06:05 03/31/18 06:30 Temperature Pulse Rate 80 80 78 Respiratory Rate 11 L 11 L 23 Blood Pressure 186/102 H 182/84 H Pulse Oximetry 94 L 94 L 94 L 03/31/18 07:00 03/31/18 07:30 03/31/18 07:35 Temperature Pulse Rate 80 77 Respiratory Rate 22 28 H 29 H Blood Pressure Pulse Oximetry 94 L 92 L 95 03/31/18 08:00 03/31/18 08:30 03/31/18 09:00 Temperature 97.9 F Pulse Rate 79 86 83 Respiratory Rate 13 12 11 L Blood Pressure 170/78 H 164/75 H Pulse Oximetry 93 L 95 94 L 03/31/18 09:30 03/31/18 10:00 03/31/18 10:30 Temperature Pulse Rate 80 80 78 Respiratory Rate 11 L 20 23 Blood Pressure 192/85 H Pulse Oximetry 95 94 L 95 03/31/18 11:00 03/31/18 11:18 03/31/18 11:30 Temperature Pulse Rate 79 77 76 Respiratory Rate 21 24 21 Blood Pressure Pulse Oximetry 93 L 97 95 03/31/18 12:00 03/31/18 12:30 03/31/18 13:00 Temperature 97.8 F Pulse Rate 78 77 86 Respiratory Rate 26 H 21 18 Blood Pressure 172/77 H Pulse Oximetry 93 L 93 L 94 L 03/31/18 13:30 03/31/18 14:00 03/31/18 14:01 Temperature Pulse Rate 83 81 81 Respiratory Rate 21 24 19 Blood Pressure 198/86 H Pulse Oximetry 94 L 93 L 94 L 03/31/18 14:30 Temperature Pulse Rate 78 Respiratory Rate 14 Blood Pressure Pulse Oximetry 94 L Intake & Output 03/30/18 03/31/18 03/31/18 18:59 06:59 18:59 Intake Total 3087 / 3087 2570 / 2570 550 / 550 Output Total 1950 / 1950 1600 / 1600 Balance 1137 / 1137 970 / 970 550 / 550 Weight 142.5 kg Intake: IV 1884 / 1884 1670 / 1670 550 / 550 Bumex Inj 25 mg In 100 ml @ 1 100 / 100 MG/HR 4 mls/hr IV.CONT .Q24H JACKI Rx#:[id number] DOPamine 400 MG/250 ML Premix 250 / 250 400 mg In 250 ml @ 3 MCG/KG/MIN 15.863 mls/hr IV.CONT TITRATE PRN Rx#:[id number] DOPamine 800 MG/500 ML Premix 384 / 384 800 mg In 500 ml @ 3 MCG/KG/MIN 15.863 mls/hr IV.CONT TITRATE PRN Rx#:[id number] Heparin/D5W 25,000 U/250 mL 25, 240 / 240 000 unit In 250 ml @ 1,000 UNITS/HR 10 mls/hr IV.CONT TITRATE PRN Rx#:[id number] Versed Inj 50 mg In 50 ml @ 2 150 / 150 150 / 150 100 / 100 MG/HR 2 mls/hr IV.CONT TITRATE PRN Rx#:[id number] Cardene Inj 25 MG In NS Inj 240 250 / 250 ML @ 5 MG/HR 50 mls/hr IV.CONT TITRATE PRN Rx#:[id number] Flexbumin 25% Inj 100 ML @ 12.5 200 / 200 100 / 100 100 / 100 mls/hr IV.SIG Q8H JACKI Rx#: [id number] Avycaz Inj 0.94 GM In NS Inj 50 100 / 100 50 / 50 ML @ 25 mls/hr IV.SIG Q12H JACKI Rx#:[id number] KCl 40 mEq Premix Inj 40 meq In 100 / 100 100 ml @ 25 mls/hr IV.SIG Q4H JACKI Rx#:[id number] fentaNYL 10 mcg/mL Premix Drip 500 / 500 480 / 480 250 / 250 2,500 mcg In 250 ml @ 50 MCG/HR 5 mls/hr IV.SIG TITRATE PRN Rx #:[id number] Flagyl 500 MG Inj 100 ML @ 100 200 / 200 300 / 300 100 / 100 mls/hr IV.SIG Q6H JACKI Rx#: [id number] Tube Feeding 303 / 303 0 / 0 Water Bolus Amount 900 / 900 900 / 900 Output: Stool 150 / 150 100 / 100 Urine Amount (Catheter) 1800 / 1800 1500 / 1500 Indwelling Urethral Catheter 1800 / 1800 1500 / 1500 Other: Date of Last Bowel Movement 03/30/18 03/31/18 Physical Exam: CONSTITUTIONAL/GENERAL: This is an obese, critically ill patient. TUBES/LINES/DRAINS: ETT, OG, right IJ central line, PIV, bilateral soft wrist restraints, [place], rectal tube, SCDs SKIN: No jaundice, rashes, or lesions. Ecchymoses on upper extremities. No wounds seen anteriorly. Skin temperature appropriate. Not diaphoretic. EYES: eyes closed. ENT: Unable to assess hearing. Nose without bleeding or purulent drainage. Tongue edematous. CARDIOVASCULAR: RRR. RESPIRATORY/CHEST: Diminished bibasilar with no appreciable rales. Scattered rhonchi bilaterally. GASTROINTESTINAL: Abdomen obese, soft, non-tender, nondistended OG in place. GENITOURINARY: Without palpable bladder distension. [place] catheter in place. 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 Legs revealed 2+ pitting edema bilateral lower extremities. NEUROLOGICAL:Sedated. PSYCHIATRIC: Sedated. Diagnostic Tests Laboratory: Laboratory Results - last 72 hr 03/28/18 03/28/18 03/28/18 17:00 18:09 22:51 WBC RBC Hgb Hct MCV MCH MCHC RDW Plt Count MPV PT INR APTT Puncture Site Patient Temperature O2 Saturation ABG pH ABG pCO2 ABG pO2 ABG HCO3 ABG O2 Content ABG Base Excess ABG Methemoglobin Hemoglobin Carboxyhemoglobin O2 Delivery Device Vent Setting Inspired O2 Critical Value Sodium Potassium Chloride Carbon Dioxide Anion Gap BUN Creatinine Estimated GFR POC Glucose 115 H 116 H 151 H Random Glucose Calcium Magnesium 03/29/18 03/29/18 03/29/18 01:00 03:46 04:25 WBC 23.0 H RBC 3.65 L Hgb 8.9 L Hct 27.6 L MCV 75.7 L MCH 24.4 L MCHC 32.2 RDW 23.4 H Plt Count 214 MPV 9.7 PT INR APTT Puncture Site Patient Temperature O2 Saturation ABG pH ABG pCO2 ABG pO2 ABG HCO3 ABG O2 Content ABG Base Excess ABG Methemoglobin Hemoglobin Carboxyhemoglobin O2 Delivery Device Vent Setting Inspired O2 Critical Value Sodium Potassium Chloride Carbon Dioxide Anion Gap BUN Creatinine Estimated GFR POC Glucose 113 H 127 H Random Glucose Calcium Magnesium 03/29/18 03/29/18 03/29/18 04:25 04:25 04:25 WBC RBC Hgb Hct MCV MCH MCHC RDW Plt Count MPV PT 14.2 H INR 1.4 APTT 46.6 H Puncture Site Patient Temperature O2 Saturation ABG pH ABG pCO2 ABG pO2 ABG HCO3 ABG O2 Content ABG Base Excess ABG Methemoglobin Hemoglobin Carboxyhemoglobin O2 Delivery Device Vent Setting Inspired O2 Critical Value Sodium 144 Potassium 3.5 Chloride 107 Carbon Dioxide 25.8 Anion Gap 11 BUN 80 H Creatinine 2.16 H Estimated GFR 29 L POC Glucose Random Glucose 124 H Calcium 8.9 Magnesium 1.8 03/29/18 03/29/18 03/29/18 06:53 08:11 09:07 WBC RBC Hgb Hct MCV MCH MCHC RDW Plt Count MPV PT INR APTT Puncture Site [place] Patient Temperature 98.6 O2 Saturation 90 ABG pH 7.39 ABG pCO2 38 ABG pO2 69 ABG HCO3 22 ABG O2 Content 11.3 L ABG Base Excess -1.8 ABG Methemoglobin 1.8 Hemoglobin 8.9 L Carboxyhemoglobin 1.2 O2 Delivery Device Ventilator Vent Setting See comments Inspired O2 50 Critical Value No Sodium Potassium Chloride Carbon Dioxide Anion Gap BUN Creatinine Estimated GFR POC Glucose 119 H 136 H Random Glucose Calcium Magnesium 03/29/18 03/29/18 03/29/18 12:54 14:28 18:05 WBC RBC Hgb Hct MCV MCH MCHC RDW Plt Count MPV PT INR APTT Puncture Site Patient Temperature O2 Saturation ABG pH ABG pCO2 ABG pO2 ABG HCO3 ABG O2 Content ABG Base Excess ABG Methemoglobin Hemoglobin Carboxyhemoglobin O2 Delivery Device Vent Setting Inspired O2 Critical Value Sodium 142 Potassium 3.9 Chloride 105 Carbon Dioxide 22.8 Anion Gap 14 BUN 86 H Creatinine 2.19 H Estimated GFR 28 L POC Glucose 200 H 220 H Random Glucose 197 H Calcium 9.2 Magnesium 2.8 H D 03/29/18 03/29/18 03/30/18 19:57 23:07 01:00 WBC RBC Hgb Hct MCV MCH MCHC RDW Plt Count MPV PT INR APTT Puncture Site Patient Temperature O2 Saturation ABG pH ABG pCO2 ABG pO2 ABG HCO3 ABG O2 Content ABG Base Excess ABG Methemoglobin Hemoglobin Carboxyhemoglobin O2 Delivery Device Vent Setting Inspired O2 Critical Value Sodium 141 Potassium 3.7 Chloride 104 Carbon Dioxide 26.7 Anion Gap 10 BUN 90 H Creatinine 2.36 H Estimated GFR 26 L POC Glucose 204 H 200 H Random Glucose 189 H Calcium 9.5 Magnesium 2.6 H 03/30/18 03/30/18 03/30/18 03:15 04:10 04:10 WBC 21.6 H RBC 3.24 L Hgb 7.9 L Hct 24.7 L MCV 76.1 L MCH 24.4 L MCHC 32.1 RDW 23.7 H Plt Count 197 MPV 9.7 PT 13.7 H INR 1.4 APTT Puncture Site Patient Temperature O2 Saturation ABG pH ABG pCO2 ABG pO2 ABG HCO3 ABG O2 Content ABG Base Excess ABG Methemoglobin Hemoglobin Carboxyhemoglobin O2 Delivery Device Vent Setting Inspired O2 Critical Value Sodium Potassium Chloride Carbon Dioxide Anion Gap BUN Creatinine Estimated GFR POC Glucose 186 H Random Glucose Calcium Magnesium 03/30/18 03/30/18 03/30/18 04:10 04:10 08:07 WBC RBC Hgb Hct MCV MCH MCHC RDW Plt Count MPV PT INR APTT 48.5 H Puncture Site Patient Temperature O2 Saturation ABG pH ABG pCO2 ABG pO2 ABG HCO3 ABG O2 Content ABG Base Excess ABG Methemoglobin Hemoglobin Carboxyhemoglobin O2 Delivery Device Vent Setting Inspired O2 Critical Value Sodium 141 Potassium 3.6 Chloride 103 Carbon Dioxide 25.7 Anion Gap 12 BUN 87 H Creatinine 2.39 H Estimated GFR 26 L POC Glucose 198 H Random Glucose 183 H Calcium 9.6 Magnesium 2.6 H 03/30/18 03/30/18 03/30/18 11:20 15:10 15:20 WBC RBC Hgb Hct MCV MCH MCHC RDW Plt Count MPV PT INR APTT Puncture Site Patient Temperature O2 Saturation ABG pH ABG pCO2 ABG pO2 ABG HCO3 ABG O2 Content ABG Base Excess ABG Methemoglobin Hemoglobin Carboxyhemoglobin O2 Delivery Device Vent Setting Inspired O2 Critical Value Sodium 138 Potassium 3.3 L Chloride 101 Carbon Dioxide 24.7 Anion Gap 12 BUN 91 H Creatinine 2.41 H Estimated GFR 25 L POC Glucose 216 H 227 H Random Glucose 213 H Calcium 9.6 Magnesium 2.8 H 03/30/18 03/31/18 03/31/18 20:27 01:29 03:35 WBC RBC Hgb Hct MCV MCH MCHC RDW Plt Count MPV PT 12.1 H INR 1.2 APTT 52.2 H Puncture Site Patient Temperature O2 Saturation ABG pH ABG pCO2 ABG pO2 ABG HCO3 ABG O2 Content ABG Base Excess ABG Methemoglobin Hemoglobin Carboxyhemoglobin O2 Delivery Device Vent Setting Inspired O2 Critical Value Sodium Potassium Chloride Carbon Dioxide Anion Gap BUN Creatinine Estimated GFR POC Glucose 226 H 200 H Random Glucose Calcium Magnesium 03/31/18 03/31/18 03/31/18 03:35 03:35 04:27 WBC 18.9 H RBC 3.26 L Hgb 7.8 L Hct 24.6 L MCV 75.6 L MCH 24.0 L MCHC 31.7 L RDW 24.3 H Plt Count 212 MPV 10.4 PT INR APTT Puncture Site Patient Temperature O2 Saturation ABG pH ABG pCO2 ABG pO2 ABG HCO3 ABG O2 Content ABG Base Excess ABG Methemoglobin Hemoglobin Carboxyhemoglobin O2 Delivery Device Vent Setting Inspired O2 Critical Value Sodium 140 Potassium 3.7 Chloride 101 Carbon Dioxide 25.8 Anion Gap 13 BUN 91 H Creatinine 2.44 H Estimated GFR 25 L POC Glucose 195 H Random Glucose 207 H Calcium 9.4 Magnesium 2.6 H 03/31/18 03/31/18 03/31/18 07:33 09:15 10:56 WBC RBC Hgb Hct MCV MCH MCHC RDW Plt Count MPV PT INR APTT Puncture Site Art [place] Patient Temperature 98.6 O2 Saturation 88 L* ABG pH 7.32 L ABG pCO2 47 H ABG pO2 69 ABG HCO3 23 ABG O2 Content 9.8 L ABG Base Excess -1.8 ABG Methemoglobin 1.9 Hemoglobin 7.8 L Carboxyhemoglobin 1.5 O2 Delivery Device Ventilator Vent Setting Aprv Inspired O2 40 Critical Value Yes Sodium Potassium Chloride Carbon Dioxide Anion Gap BUN Creatinine Estimated GFR POC Glucose 190 H 205 H Random Glucose Calcium Magnesium 03/31/18 12:56 WBC RBC Hgb Hct MCV MCH MCHC RDW Plt Count MPV PT INR APTT Puncture Site Patient Temperature O2 Saturation ABG pH ABG pCO2 ABG pO2 ABG HCO3 ABG O2 Content ABG Base Excess ABG Methemoglobin Hemoglobin Carboxyhemoglobin O2 Delivery Device Vent Setting Inspired O2 Critical Value Sodium Potassium Chloride Carbon Dioxide Anion Gap BUN Creatinine Estimated GFR POC Glucose 201 H Random Glucose Calcium Magnesium Result Diagrams: 03/31/18 03:35 03/31/18 03:35 Microbiology: Microbiology 03/24/18 16:30 Fungal Smear - Final Bronchial Washings - Left Lower Lobe No fungal elements seen Fungal Culture - Preliminary No growth in 1 week 03/24/18 16:30 Acid Fast Bacilli Smear - Final Bronchial Washings - Left Lower Lobe No acid fast bacilli seen Mycobacterial Culture - Preliminary No growth in 1 week 03/26/18 15:51 Aerobic Blood Culture - Final Blood - Peripheral No growth in 5 days Anaerobic Blood Culture - Final No growth in 5 days 03/26/18 14:39 Aerobic Blood Culture - Final Blood - Peripheral No growth in 5 days Anaerobic Blood Culture - Final No growth in 5 days 03/26/18 16:21 Urine Culture - Final Catheterized Urine No growth in 48 hours Imaging: Head CT 03/18/18 18:46 CONCLUSION: 1. Solitary 3 mm hyperdensity in the central [place] of uncertain significance. Differential considerations include a punctate calcification and acute hemorrhage. 2. No acute findings in the supratentorial brain. Head MRI 03/19/18 00:00 CONCLUSION: 1. No evidence of brainstem hemorrhage. 2. Small foci of encephalomalacia in the left occipital lobe and right cerebellum 3. No evidence of acute infarct, hemorrhage, mass or edema. 4. No evidence of enhancing intra-axial or extra-axial lesions. Venous Doppler Study 03/19/18 00:00 CONCLUSION: The study is negative for bilateral lower extremity deep venous thrombosis. Foot X-Ray 03/22/18 00:00 CONCLUSION: No acute bony destructive change. Previous amputations as above. Fairly marked soft tissue swelling of the forefoot. Abdomen X-Ray 03/26/18 00:00 CONCLUSION: Abdomen/Pelvis CT 03/28/18 00:00 CONCLUSION: 1. Minimal increase in the trace bilateral pleural effusions with compressive atelectasis in both bases. 2. Gallstones in a benign-appearing gallbladder 3. I don't see evidence for colitis. 4. I don't see inflammatory changes in the abdomen. Chest CT 03/28/18 00:00 CONCLUSION: 1. Biventricular cardiomegaly with coarse interstitial changes in both lungs. A component of this could be failure 2. Trace bilateral pleural effusions larger on the right.. These have decreased slightly in the interval. Foot MRI 03/28/18 00:00 CONCLUSION: 1. Difficult exam to interpret because of extensive soft tissue swelling. No obvious osteomyelitis. 2. Nuclear medicine tagged white cell study may help. Chest X-Ray 03/30/18 07:48 CONCLUSION: Improving upper lobe aeration with decreasing consolidation and congestion. Stable supportive devices. Assessment and Plan Pertinent Non-Medical Issues: Psychosocial: Never . Supported by her son, Rocael. Has 4 children. Spiritual: Gnosticism. Legal: Patient is not capacitated to make her own health care decisions, uncertain if she will regain capacity. No written advanced directives. According to [place] statutes, health care proxy decision making falls to the majority of adult children, she has 4 children. Son Rocael reports he has always made decisions for patient. Awaiting to speak with other children to determine if they wish to participate in medical decision making. Ethical issues impacting care: None. Important Contacts: * Rocael Hanna, son: [phone] * Shobha Hanna, daughter: [phone] * Carolyn Durand, sister: [phone] . Prognosis: 03/31/18 per public relations intern: Miss Hanna is a 52 year old female admitted with severe ARDS and organ failure secondary to MDRO/ESBL/KPC Klebsiella and Veillonella bacteremia. remains very critically ill. does still appear to be volume overloaded combined with significant myocardial dysfunction. continue dopamine to prevent bradycardia. continue APRV mode of ventilation. continue forced diuresis. Family concerned about goals of care and if this level of care was consistent with patient's wishes. I think it is hernandez to get palliative care involved. however, it does appear that given her young age, we could successfully rehabilitate her to a functional status at least consistent with her prior functional status at her SNF, and possibly improved depending on her clinical course. Of course this would take months of rehabilitation, and will likely include trach/peg due to her severe ARDS and hypoxia. I would support aggressive measures at this point, unless it becomes clear that the patient has a strong opinion against such measures. Remains critically ill today with multiple ongoing life-threatening organ dysfunction. Code Status: Full Code Plan: * Patient is not capacitated to make her own health care decisions, uncertain if she will regain capacity. No written advanced directives. According to [place] statutes, health care proxy decision making falls to the majority of adult children, she has 4 children. Son Rocael reports he has always made decisions for patient. Awaiting to speak with other children to determine if they wish to participate in medical decision making. * FULL CODE. * 03/31/18: Spoke with sonRocael, he will attempt to arrange time for family meeting and call if family is able to meet in the coming day(s). He will have his siblings call regarding health care decisions. Goals remain aggressive at this time. * Value Engineer feels patient * SYMPTOMS: dyspnea: on [facility] vent, sedated, despite sedation having difficulty with vent synchrony per nursing staff. * Palliative care will continue to monitor to assist with symptom management and clarification of treatment goals. Attestation Attestation: To help prompt me to consider important information that might be impacting today's encounter and assessment, information from prior notes written by myself or my colleagues may have been "brought forward" into today's note. My signature on this note, however, is an attestation that I personally performed the exam, history, and/or decision-making noted today, and, unless otherwise indicated, the interactions with patient, family, and staff as well as the review of records all occurred today. I also attest that the listed assessment and stated plan reflect my best clinical judgment today based on the combination of historical information, prior notes, and today's exam/ interactions. When time spent is documented, it refers only to time spent today by the signer, or if indicated, combined time spent today by collaborating physician/nurse practitioner.
[2018-03-31] MEDS: Bumetanide Inj 25 MG/100 ML BAG IV.CONT SCH (17:15)
[2018-04-01] MEDS: DOPamine 400 MG/250 ML Premix 400 MG/250 ML BAG IV.CONT PRN ×2 (00:21→16:43)
[2018-04-01] MEDS: Oral Hygiene Kit OROPHARYNG SCH ×4 (00:23→15:50)
[2018-04-01] MEDS: Albumin Human 25% Inj 100 ML IV.SIG SCH (00:45)
[2018-04-01] MEDS: Insulin NovoLIN Regular Correctional Sugar Inj SQ SCH ×6 (00:46→20:22)
[2018-04-01] MEDS: Hypromellose 0.3% Opth Gel 10 GM Bottle EACH EYE SCH ×3 (03:33→19:57)
[2018-04-01] MEDS: Midazolam 50 MG/50 ML Inj 50 MG/50 ML BAG IV.CONT PRN ×5 (04:02→22:33)
[2018-04-01 04:59] LABS: Hematocrit 24.8 % (35.0-46.0); Mean Corpuscular HGB Conc 32.3 % (32.0-36.0); Mean Corpuscular Hemoglobin 24.5 pg (27.0-34.0); Mean Corpuscular Volume 75.9 fL (80.0-100.0); Mean Platelet Volume 10.4 fL (7.0-11.0); Platelet Count 214 th/mm3 (150-450); Red Blood Count 3.27 mil/mm3 (4.00-5.30); Red Cell Distribution Width 24.4 % (11.6-17.2); White Blood Count 21.5 th/mm3 (4.0-11.0)
[2018-04-01 05:10] LABS: Activated Partial Thrombo Time 39.1 sec (24.3-30.1); INR 1.3 Ratio; Prothrombin Time 12.8 sec (9.8-11.6)
[2018-04-01 05:26] LABS: Calcium 8.9 mg/dL (8.5-10.1); Carbon Dioxide 27.1 meq/L (21.0-32.0); Magnesium 2.3 mg/dL (1.5-2.5)
[2018-04-01 05:30] LABS: Potassium 2.9 meq/L (3.5-5.1)
[2018-04-01 05:36] LABS: ABG Base Excess -0.9 mmol/L (-2-2); ABG PCO2 43 mmHg (38-42); ABG PO2 68 mmHG (61-120)
--- NOTE | 2018-04-01 06:48 | XR ---
EXAM DATE: 04/01/2018 6:13 AM EDT AGE/SEX: 52 years / Female INDICATIONS: Shortness of breath. CLINICAL DATA: This is the patient's subsequent encounter. Patient reports that signs and symptoms h ave been present for 2 weeks and indicates a pain score of Nonresponsive. MEDICAL/SURGICAL HISTORY: . Hypertension. Hyperlipidemia. Diabetes. Atrial fibrillation. Conges tive heart failure. COPD. Chronic kidney disease. Left leg DVT. GERD. Methicillin-resistant staphyloc occus aureus . Toe amputation. Tubal ligation. Tonsillectomy. Mastectomy. COMPARISON: [facility] – [place], CHEST 1V SINGLE AP, 03/30/2018. . FINDINGS: A single AP semierect portable view of the chest was obtained. The endotracheal tube remains in place with the tip 4 cm above the elizabeth. The nasogastric tube and right internal jugular central venous l ine remain in place. Hazy airspace disease remains throughout both lungs greatest at the lung bases. This appears increased in the right lung base. There is mild cardiomegaly. The costophrenic angles ar e not well-visualized. The bony thorax appears intact. Overlying electrocardiogram leads are present. CONCLUSION: Bilateral airspace opacities which are increased in the right lung base. Electronically signed by: Peter Hernandez MD 04/01/2018 6:47 AM EDT
[2018-04-01] MEDS: QUEtiapine 25 MG Tablet PO SCH ×3 (06:58→21:53)
[2018-04-01] MEDS: niCARdipine Inj 25 MG in Sodium Chlor 0.9% Inj 240 ML IV.CONT PRN ×2 (07:02→16:42)
[2018-04-01] MEDS: Potassium Chlor 40 mEq Premix 40 MEQ/100 ML PIGGYBACK IV.SIG SCH ×2 (08:14→12:32)
[2018-04-01] MEDS: Famotidine 20 MG Tablet PO SCH ×2 (08:14→21:54)
[2018-04-01] MEDS: amLODIPine 10 MG Tablet PO SCH (08:15)
[2018-04-01] MEDS: metOLazone 5 MG Tablet PO SCH ×2 (08:15→20:25)
[2018-04-01] MEDS: Senna/Docusate Sodium 8.6/50 MG Tablet PO SCH ×2 (08:15→21:53)
[2018-04-01] MEDS: Insulin Detemir Inj 1,000 UNIT/10 ML Vial SQ SCH (08:15)
[2018-04-01] MEDS: Lipase/Protease/Amylase 24/76/120 DR Capsule PO SCH ×3 (08:15→17:18)
[2018-04-01] MEDS: MethylPREDNISolone Sod Succinate Inj 40 MG/ML Vial IV.PUSH SCH (08:15)
[2018-04-01] MEDS: Chlorhexidine 0.12% Oral Kit 15 ML UDC OROPHARYNG SCH ×2 (08:16→20:24)
[2018-04-01] MEDS: fentaNYL 10 mcg/mL Premix Drip 2,500 MCG/250 ML BAG IV.SIG PRN (10:17)
[2018-04-01] MEDS: Bumetanide Inj 25 MG/100 ML BAG IV.CONT SCH ×2 (12:43→19:29)
[2018-04-01] MEDS: Ceftazidime/Avibactam Inj 0.94 GM in Sodium Chlor 0.9% Inj 50 ML IV.SIG SCH (12:44)
--- NOTE | 2018-04-01 13:43 | P.PNCC ---
Subjective Subjective Remarks/Hospital Course: 52-year-old female with past medical history of diabetes mellitus, hypertension, hyperlipidemia, atrial fibrillation on chronic anticoagulation with warfarin, chronic diastolic heart failure, asthma, WISAM, peripheral vascular disease, super morbid obesity. She has been at [facility] since 03/02/18. Abeba JACOBO was called due to respiratory distress. When they arrived as she was found to be in respiratory distress with sats in the 70s. She was communicating with them and reportedly said "leave me alone". She then had PEA arrest. She received CPR reportedly 10-15 minutes and received 2 doses of epinephrine. LMA was placed by EVAC. LMA was removed and she was intubated by Dr. Daly after receiving etomidate 20 mg IV and succinylcholine. She has demonstrated purposeful movements post intubation, and is now on a propofol drip. She was recently admitted to [facility] 02/24-03/02 due to hypoglycemia, fall after isolated episode of diarrhea, hypoxia requiring HFNC. She has chronic interstitial changes on CXR. Reviewed records from [facility] which indicate she completed a 7 day course of Levaquin and has been on a prednisone taper. Current CXR shows bibasilar opacities. WBC is 16 ( previously 7.9). She has acute hypercapneic and hypoxemic respiratory failure. 03/19: Afebrile. Remains on 100% FiO2 PEEP of 12. Central has been placed for access due to multiple drips. Plan MRI brain today if respiratory status improves. Does not tolerate lying flat. Likely will need epoprostenol and rotaprone 03/20: Started on epoprostenol and currently on a rotor from bed. Currently on cisatracurium drip at 1 mcg/kg/min. Diuresing well. 03/21: Weaning down epoprostenol. Remains on cisatracurium drip at 6 mcg/kg/ min. Diuresis 6 L. Saturation was improved FiO2 down to 45%. 03/22: Hypothermic overnight. Currently euthermic. Excellent response to bumetanide drip. FiO2 down to 40%. PEEP down to 8. Possible discontinue paralytic agent today. 03/23: Resting comfortable in bed in no acute distress. Afebrile. Desaturated so placed back on rotor prone bed. Creatinine slowly increasing. 03/24: Afebrile. Worsening chest x-ray it appears to be volume overloaded again. +10 L past 24 hours. Will restart on bumetanide drip. Plan for bronchoscopy today. Switch to ceftazidime/avibactam secondary to ESBL positive Klebsiella pneumonia 03/25: FiO2 to 55%. Tolerating demanding drip with -2 L past 24 hours. Bronchoscopy results pending. Positive BM. Restarting tube feeding today 03/26: Cr continues to rise, although clinically continues to appear severely volume overloaded. fio2 70%. supine all night. off nimbex. off flolan. ID managing ESBL/MDRO/KPC Klebsiella and anaerobic bacteremia. 03/27: off rotaprone bed. multiple desat episodes overnight. on 100% fio2 and PEEP 10 this AM. good diuresis with net -2L/24h. bumex drip continues. awakens and follows commands. 03/28: not diuresing as well as yesterday. wbc uptrending. 2 more episodes of bradycardia, not associated with hypoxia. however, fio2 remains severely elevated. I increased her peep to 14. still arouses and moves all extremities. high concern for ongoing infectious etiology, but with high o2 requirements and intermittent bradycardia requiring atropine, at present too unstable for repeat imaging. 03/29: ct C/A/P without overt infectious source. does demonstrate radiographic evidence of biventricular dysfunction. bedside echo today demonstrates the same , and dilated IVC without respiratory variation. off vasopressors. required atropine for a HR of 15 once overnight. still very hypoxic: changed to APRV 5:1 , 28/0, 4/0.8. SUBJECTIVE 03/30: remains on APRV with hypoxia. multiple episodes of bradycardia and a 18 second pause yesterday. trialed on dobutamine but with multiple dysrhythmias. now on low-dose dopamine to mitigate bradycardia. adequate diuresis overnight. cxr improving slightly. still remains volume overloaded, and YOU persists. 03/31: mild improvements in fio2. remains on APRV. no more bradycardia today. still on dopamine to prevent pauses/bradycardia. YOU persists, but stable. unable to diurese yesterday and now net +2L despite fluid overload. must increase forced diuresis to improve hypoxemia. 04/01: Remains sedated, orally intubated on mechanical ventilation. Being diuresed. Started on Reglan in view of high gastric residuals and decreasing fentanyl as tolerated. Objective Vital Signs / I&O: Vital Signs 03/31/18 14:00 03/31/18 14:01 03/31/18 14:30 Temperature Pulse Rate 81 81 78 Respiratory Rate 24 19 14 Blood Pressure 198/86 H Pulse Oximetry 93 L 94 L 94 L 03/31/18 15:00 03/31/18 15:02 03/31/18 15:30 Temperature Pulse Rate 75 73 74 Respiratory Rate 11 L 13 26 H Blood Pressure 175/76 H Pulse Oximetry 94 L 92 L 95 03/31/18 16:00 03/31/18 16:30 03/31/18 17:00 Temperature 97.7 F Pulse Rate 78 77 72 Respiratory Rate 19 17 19 Blood Pressure 152/68 H Pulse Oximetry 93 L 94 L 93 L 03/31/18 17:30 03/31/18 18:00 03/31/18 18:30 Temperature Pulse Rate 82 80 79 Respiratory Rate 22 19 16 Blood Pressure 179/77 H Pulse Oximetry 93 L 93 L 93 L 03/31/18 19:00 03/31/18 19:30 03/31/18 19:38 Temperature 98.8 F Pulse Rate 76 76 78 Respiratory Rate 15 11 L 16 Blood Pressure 146/66 H Pulse Oximetry 92 L 92 L 92 L 03/31/18 20:00 03/31/18 20:19 03/31/18 20:30 Temperature Pulse Rate 78 75 78 Respiratory Rate 12 24 11 L Blood Pressure 157/69 H 146/60 H Pulse Oximetry 95 94 L 03/31/18 21:00 03/31/18 22:00 03/31/18 23:00 Temperature Pulse Rate 78 83 79 Respiratory Rate 10 L 10 L 10 L Blood Pressure 152/62 H 152/62 H 148/72 H Pulse Oximetry 94 L 94 L 93 L 03/31/18 23:30 03/31/18 23:57 04/01/18 00:00 Temperature 98 F 98.6 F Pulse Rate 74 80 79 Respiratory Rate 14 25 H 13 Blood Pressure 147/68 H 155/72 H Pulse Oximetry 93 L 93 L 92 L 04/01/18 01:00 04/01/18 02:00 04/01/18 03:00 Temperature Pulse Rate 80 83 80 Respiratory Rate 13 14 25 H Blood Pressure 148/62 H 151/66 H 153/61 H Pulse Oximetry 94 L 96 95 04/01/18 03:49 04/01/18 04:00 04/01/18 05:00 Temperature 98.5 F Pulse Rate 76 75 79 Respiratory Rate 29 H 17 10 L Blood Pressure 149/65 H 150/60 H Pulse Oximetry 95 96 93 L 04/01/18 06:00 04/01/18 07:00 04/01/18 07:50 Temperature 98.6 F Pulse Rate 73 66 66 Respiratory Rate 19 21 20 Blood Pressure 150/67 H 131/57 L Pulse Oximetry 97 97 98 04/01/18 08:00 04/01/18 09:00 04/01/18 10:00 Temperature 98.6 F Pulse Rate 67 71 80 Respiratory Rate 20 21 21 Blood Pressure 129/54 L 133/56 L 142/65 H Pulse Oximetry 96 97 04/01/18 11:50 Temperature Pulse Rate 76 Respiratory Rate 25 H Blood Pressure Pulse Oximetry Intake & Output 03/31/18 04/01/18 04/01/18 18:59 06:59 18:59 Intake Total 1100 / 1100 1900 / 1900 550 / 550 Output Total 2450 / 2450 1860 / 1860 Balance -1350 / -1350 40 / 40 550 / 550 Weight 143 kg Intake: IV 1100 / 1100 1400 / 1400 550 / 550 Bumex Inj 25 mg In 100 ml @ 1 100 / 100 100 / 100 MG/HR 4 mls/hr IV.CONT .Q24H [facility] Rx#:[id number] DOPamine 400 MG/250 ML Premix 250 / 250 400 mg In 250 ml @ 3 MCG/KG/MIN 15.863 mls/hr IV.CONT TITRATE PRN Rx#:[id number] Heparin/D5W 25,000 U/250 mL 25, 250 / 250 000 unit In 250 ml @ 1,000 UNITS/HR 10 mls/hr IV.CONT TITRATE PRN Rx#:[id number] Versed Inj 50 mg In 50 ml @ 2 150 / 150 100 / 100 100 / 100 MG/HR 2 mls/hr IV.CONT TITRATE PRN Rx#:[id number] Cardene Inj 25 MG In NS Inj 240 250 / 250 500 / 500 ML @ 5 MG/HR 50 mls/hr IV.CONT TITRATE PRN Rx#:[id number] Flexbumin 25% Inj 100 ML @ 12.5 200 / 200 mls/hr IV.SIG Q8H [facility] Rx#: [id number] Avycaz Inj 0.94 GM In NS Inj 50 50 / 50 50 / 50 ML @ 25 mls/hr IV.SIG Q12H [facility] Rx#:[id number] KCl 40 mEq Premix Inj 40 meq In 100 / 100 100 ml @ 25 mls/hr IV.SIG Q4H [facility] Rx#:[id number] fentaNYL 10 mcg/mL Premix Drip 250 / 250 250 / 250 250 / 250 2,500 mcg In 250 ml @ 50 MCG/HR 5 mls/hr IV.SIG TITRATE PRN Rx #:[id number] Flagyl 500 MG Inj 100 ML @ 100 100 / 100 mls/hr IV.SIG Q6H [facility] Rx#: [id number] Tube Irrigant 200 / 200 Water Bolus Amount 300 / 300 Output: Stool 100 / 100 60 / 60 Urine Amount (Catheter) 2350 / 2350 1800 / 1800 Indwelling Urethral Catheter 2350 / 2350 1800 / 1800 Other: Date of Last Bowel Movement 03/31/18 03/31/18 03/31/18 Result Diagrams: 04/01/18 03:30 04/01/18 03:30 Objective Remarks: GENERAL: 52-year-old female patient with an elevated BMI who is lying in bed orotracheally intubated. SKIN: Intertriginous lesion with erythema and satellite lesions under left breast. Skin breakdown over medial aspect of left ankle. HEAD: Atraumatic. Normocephalic. EYES: bilateral pupils sluggishly reactive. No scleral icterus. No injection or drainage. ENT: No nasal bleeding or discharge. Mucous membranes pink and moist. Tongue and lip/oral mucosa is swollen and edematous. NECK: Trachea midline. No JVD. CARDIOVASCULAR: RRR. sinus. RESPIRATORY: Diminished bibasilar with no appreciable rales. Scattered rhonchi bilaterally. GASTROINTESTINAL: Abdomen obese, soft, non-tender, nondistended OG in place. 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 Legs revealed 2+ pitting edema bilateral lower extremities. NEUROLOGICAL: RASS -2/-3. awakens and follows intermittent commands. moves all extremities. Assessment and Plan - Assessment and Plan Plan: Assessment: 52yF with severe ARDS and organ failure secondary to MDRO/ESBL/KPC Klebsiella and Veillonella bacteremia. remains very critically ill. does still appear to be volume overloaded combined with significant myocardial dysfunction. continue dopamine to prevent bradycardia. continue APRV mode of ventilation. continue forced diuresis. Family concerned about goals of care and if this level of care was consistent with patient's wishes. I think it is hernandez to get palliative care involved. however, it does appear that given her young age, we could successfully rehabilitate her to a functional status at least consistent with her prior functional status at her SNF, and possibly improved depending on her clinical course. Of course this would take months of rehabilitation, and will likely include trach/peg due to her severe ARDS and hypoxia. I would support aggressive measures at this point, unless it becomes clear that the patient has a strong opinion against such measures. Remains critically ill today with multiple ongoing life-threatening organ dysfunction. NEURO/PSYCH: Acute encephalopathy - secondary to hypercapnia, improving. Abnormal brain CT with 3 mm hyperdensity in central [place] Major depressive disorder NOS Chronic opioid use Encephalomalacia right cerebellum/left occipital lobe scheduled oxycodone 20mg po q4h seroquel 50mg po q8h for delirium. versed and fentanyl for goal RASS -2. Followup CT brain - . Solitary 3 mm hyperdensity in the central [place] of uncertain significance. Differential considerations include a punctate calcification and acute hemorrhage MRI brain left occipital lobe and right cerebellum. She does not meet criteria for induced therapeutic hypothermia because she is following commands post CPR. Holding nabumetone 500 mg twice daily, methocarbamol 750 mg 4 times daily and oxycodone 10 mg every 6 hours Holding gabapentin 200 mg 3 times daily Holding tizanidine 4 mg 3 times daily RESP: Acute hypercapnic and hypoxemic respiratory failure Severe ARDS Acute asthma exacerbation Healthcare associated pneumonia WISAM/OHS Prior tobacco abuse Bilateral pleural effusions right 2.2 cm. Left 1.3 cm LMA was placed in the field by EVAC. Intubated in ED 03/18 Ventilator bundle On albuterol/ipratropium aerosols every 4 hours with albuterol aerosols every 2 hours as needed for dyspnea Weaned off epoprostenol 03/23 Spontaneous breathing trials when clinically indicated. Not today. remains hypoxic on aprv. CT thorax revealed right middle lobe/lower lobe consolidation left lower lobe consolidation. Right pleural effusion 2.2 cm. Left pleural effusion 1.3 cm Methylprednisolone succinate 40 mg IV every 12 hours. Antibiotics as per below. CXR still with pulmonary edema superimposed on ARDS. wean Phigh to 24 from 28. stretch Thigh for goal I:E 6:1 today. repeat ABG today CT chest/abd/pelvis 03/28: biventricular enlargement, pulmonary edema. ABG and CXR in AM. CV: Hypertension Hyperlipidemia Chronic diastolic heart failure Paroxysmal atrial fibrillation on chronic anti-coagulation with warfarin Peripheral vascular disease/peripheral arterial disease Elevated troponin intermittent bradycardia Cor pulmonale biventricular dysfunction Holding home medication of clonidine 0.1 mg every 6 hours nifedipine 90 mg daily. holding carvedilol 2D echo 02/24/18ejection fraction 50%. Wall thickness upper limits of normal. Trace MR. Lactic acid cleared Continue atorvastatin 40 mg daily Doppler bilateral upper and lower extremities with subtherapeutic INR revealed no acute thrombus heparin drip. intermittent bradycardia prevents restarting home clonidine hold carvedilol prn atropine continue dopamine infusion amlodipine 10mg po daily hydralazine 100mg po q8h glycopyrrolate to 0.4mg IM q4h. continue bumex drip at 1mg/hr. continue metolazone 5mg po q12h one dose of spironolactone 25mg po today need to achieve net negative fluid balance. GI: History of GERD Chronic pancreatitis insufficiency Hypoalbuminemia vital high-protein goal 55 cc an hour per GIs recommendation Famotidine for GI prophylaxis Docusate sodium/senna 1 tablet twice daily for bowel regimen Creon home medication 3 times daily Added Reglan 10 mg IV every 8 hourly on 04/01 for high gastric residuals and decreasing fentanyl GTT as tolerated. FEN/RENAL: Acute kidney injury superimposed on CKD Chronic kidney disease stage III Hypernatremia Hypokalemia Acute severe intravascular volume overload with pulmonary edema [place] catheter was placed in the emergency department. Monitor intake and output. Monitor electrolytes and replace as indicated Free water 300 every 4 hours. Creatinine is stable, though remains elevated. Diuretic plan: bumex at 1mg/hr continues drip metolazone 5mg po q12h continuous albumin infusion to maintain intravascular volume. one dose of spironolactone 25mg po today. ID: Acute healthcare associated pneumonia -ESBL positive Klebsiella pneumonia Veillonella species bacteremia Metronidazole 500 every 6 hours, ceftazidime/avibactam day #4 Discontinue piperacillin/tazobactam 03/24 Discontinue 03/22 cefepime 2 g IV every 12 hours, azithromycin 500 mg daily and vancomycin Consultation to ID workup Veillonella species bacteremia Blood cultures 2 03/18 Veillonella spp. Repeat 03/20 no growth to date Sputum, ESBL positive Klebsiella pneumonia Pneumococcal urinary antigens, influenza a and B and chlamydia and mycoplasma all pending/negative HEME: Leukocytosis Chronic anemia/normocytic Chronic anti-coagulation with warfarin 4 mg daily. INR target is 2-3. Monitor CBC daily. Follow trends No indication for transfusion of blood products at this time. Discontinued heparin drip 03/22, restarted 03/26. heparin drip ENDO: Diabetes mellitus History of gout d/c insulin drip and transition to SSI q4h high scale increase levemir to 25 units SQ daily Holding glipizide 10 mg twice daily and insulin glargine/home medication Holding allopurinol 300 mg daily/home medication MSK: Elevated BMI Osteoporosis/osteoarthritis PT evaluate and treat Okay to hold cholecalciferol 5000 units daily PROPH: SCDs for DVT prophylaxis. Heparin drip ACCESS: Right IJ CVL placed 03/19. Right axillary arterial line placed 03/19: must remain today, still critically ill. Critical care time 35 minutes, exclusive of separately billed procedures.
--- NOTE | 2018-04-01 14:22 | P.PNADD ---
Addendum to Inpatient Note Additional information: pt seen today around 1 pm full note to follow
[2018-04-01] MEDS: Sod Chloride 0.9% Inj 1,000 ML OTHER SCH (21:56)
--- NOTE | 2018-04-01 23:31 | P.PNID ---
Subjective Remarks: cont to improve gradially afebrile Antibiotics: avicaz flagyl Allergies/Adverse Reactions: Allergies ibuprofen Allergy (Severe, Verified 03/18/18 17:58) MESSES WITH KIDNEYS Sulfa (Sulfonamide Antibiotics) Allergy (Severe, Verified 03/18/18 17:58) HIVES egg Allergy (Intermediate, Verified 03/18/18 17:58) Very Upset Stomach milk Allergy (Unknown, Verified 03/18/18 17:58) Heartburn Objective Vital Signs 03/31/18 23:30 03/31/18 23:57 04/01/18 00:00 Temperature 98 F 98.6 F Pulse Rate 74 80 79 Respiratory Rate 14 25 H 13 Blood Pressure 147/68 H 155/72 H Pulse Oximetry 93 L 93 L 92 L 04/01/18 01:00 04/01/18 02:00 04/01/18 03:00 Temperature Pulse Rate 80 83 80 Respiratory Rate 13 14 25 H Blood Pressure 148/62 H 151/66 H 153/61 H Pulse Oximetry 94 L 96 95 04/01/18 03:49 04/01/18 04:00 04/01/18 05:00 Temperature 98.5 F Pulse Rate 76 75 79 Respiratory Rate 29 H 17 10 L Blood Pressure 149/65 H 150/60 H Pulse Oximetry 95 96 93 L 04/01/18 06:00 04/01/18 07:00 04/01/18 07:50 Temperature 98.6 F Pulse Rate 73 66 66 Respiratory Rate 19 21 20 Blood Pressure 150/67 H 131/57 L Pulse Oximetry 97 97 98 04/01/18 08:00 04/01/18 09:00 04/01/18 10:00 Temperature 98.6 F Pulse Rate 67 71 80 Respiratory Rate 20 21 21 Blood Pressure 129/54 L 133/56 L 142/65 H Pulse Oximetry 96 97 04/01/18 11:00 04/01/18 11:50 04/01/18 12:00 Temperature 98.6 F 98.4 F Pulse Rate 79 76 76 Respiratory Rate 19 25 H 20 Blood Pressure 150/61 H 151/61 H Pulse Oximetry 98 96 04/01/18 13:00 04/01/18 14:00 04/01/18 15:00 Temperature 98.9 F 98.4 F Pulse Rate 90 70 70 Respiratory Rate 20 19 Blood Pressure 150/63 H 117/49 L 117/61 Pulse Oximetry 98 96 96 04/01/18 16:00 04/01/18 17:00 04/01/18 18:00 Temperature 98.8 F 98.7 F 98.7 F Pulse Rate 85 82 82 Respiratory Rate 23 21 20 Blood Pressure 147/61 H 146/63 H 147/62 H Pulse Oximetry 98 94 L 97 04/01/18 20:01 Temperature Pulse Rate 83 Respiratory Rate 20 Blood Pressure Pulse Oximetry 98 Intake & Output 04/01/18 04/01/18 04/02/18 06:59 18:59 06:59 Intake Total 1900 / 1900 1224 / 1224 1050 / 1050 Output Total 1860 / 1860 3300 / 3300 Balance 40 / 40 -2076 / -2076 1050 / 1050 Weight 143 kg Intake: IV 1400 / 1400 1100 / 1100 1050 / 1050 Bumex Inj 25 mg In 100 ml @ 1 100 / 100 MG/HR 4 mls/hr IV.CONT .Q24H JACKI Rx#:[id number] DOPamine 400 MG/250 ML Premix 250 / 250 250 / 250 400 mg In 250 ml @ 3 MCG/KG/MIN 15.863 mls/hr IV.CONT TITRATE PRN Rx#:[id number] Heparin/D5W 25,000 U/250 mL 25, 250 / 250 000 unit In 250 ml @ 1,000 UNITS/HR 10 mls/hr IV.CONT TITRATE PRN Rx#:[id number] Versed Inj 50 mg In 50 ml @ 2 100 / 100 150 / 150 50 / 50 MG/HR 2 mls/hr IV.CONT TITRATE PRN Rx#:[id number] Cardene Inj 25 MG In NS Inj 240 500 / 500 250 / 250 ML @ 5 MG/HR 50 mls/hr IV.CONT TITRATE PRN Rx#:[id number] Avycaz Inj 0.94 GM In NS Inj 50 50 / 50 ML @ 25 mls/hr IV.SIG Q12H JACKI Rx#:[id number] KCl 40 mEq Premix Inj 40 meq In 100 / 100 100 ml @ 25 mls/hr IV.SIG Q4H JACKI Rx#:[id number] fentaNYL 10 mcg/mL Premix Drip 250 / 250 250 / 250 2,500 mcg In 250 ml @ 50 MCG/HR 5 mls/hr IV.SIG TITRATE PRN Rx #:[id number] NS Inj 1,000 ML @ 10 mls/hr 1000 / 1000 OTHER .Q24H JACKI Rx#:[id number] Tube Feeding 124 / 124 Tube Irrigant 200 / 200 Water Bolus Amount 300 / 300 Output: Urine 3100 / 3100 Stool 60 / 60 200 / 200 Urine Amount (Catheter) 1800 / 1800 Indwelling Urethral Catheter 1800 / 1800 Other: Date of Last Bowel Movement 03/31/18 03/31/18 03/24/18 16:30 Bronchial Washings - Left Lower Lobe Fungal Smear - Final No fungal elements seen 03/24/18 16:30 Bronchial Washings - Left Lower Lobe Fungal Culture - Preliminary No growth in 1 week 03/24/18 16:30 Bronchial Washings - Left Lower Lobe Acid Fast Bacilli Smear - Final No acid fast bacilli seen 03/24/18 16:30 Bronchial Washings - Left Lower Lobe Mycobacterial Culture - Preliminary No growth in 1 week 03/26/18 15:51 Blood - Peripheral Aerobic Blood Culture - Final No growth in 5 days 03/26/18 15:51 Blood - Peripheral Anaerobic Blood Culture - Final No growth in 5 days 03/26/18 14:39 Blood - Peripheral Aerobic Blood Culture - Final No growth in 5 days 03/26/18 14:39 Blood - Peripheral Anaerobic Blood Culture - Final No growth in 5 days Lab - Hematology Results 03/31/18 04/01/18 03:35 03:30 WBC 18.9 H 21.5 H RBC 3.26 L 3.27 L Hgb 7.8 L 8.0 L Hct 24.6 L 24.8 L MCV 75.6 L 75.9 L MCH 24.0 L 24.5 L MCHC 31.7 L 32.3 RDW 24.3 H 24.4 H Plt Count 212 214 MPV 10.4 10.4 Lab - Chemistry Results 03/31/18 03/31/18 03/31/18 01:29 03:35 04:27 Sodium 140 Potassium 3.7 Chloride 101 Carbon Dioxide 25.8 Anion Gap 13 BUN 91 H Creatinine 2.44 H Estimated GFR 25 L POC Glucose 200 H 195 H Random Glucose 207 H Calcium 9.4 Magnesium 2.6 H 03/31/18 03/31/18 03/31/18 07:33 10:56 12:56 Sodium Potassium Chloride Carbon Dioxide Anion Gap BUN Creatinine Estimated GFR POC Glucose 190 H 205 H 201 H Random Glucose Calcium Magnesium 03/31/18 03/31/18 03/31/18 15:05 19:31 23:33 Sodium Potassium Chloride Carbon Dioxide Anion Gap BUN Creatinine Estimated GFR POC Glucose 238 H 189 H 184 H Random Glucose Calcium Magnesium 04/01/18 04/01/18 04/01/18 03:21 03:30 07:27 Sodium 140 Potassium 2.9 L* D Chloride 100 Carbon Dioxide 27.1 Anion Gap 13 BUN 97 H Creatinine 2.34 H Estimated GFR 26 L POC Glucose 161 H 148 H Random Glucose 151 H Calcium 8.9 Magnesium 2.3 04/01/18 04/01/18 04/01/18 12:48 15:41 20:07 Sodium Potassium Chloride Carbon Dioxide Anion Gap BUN Creatinine Estimated GFR POC Glucose 173 H 200 H 254 H Random Glucose Calcium Magnesium Imaging: ITS Impressions Head CT 03/18/18 18:46 CONCLUSION: 1. Solitary 3 mm hyperdensity in the central [place] of uncertain significance. Differential considerations include a punctate calcification and acute hemorrhage. 2. No acute findings in the supratentorial brain. Head MRI 03/19/18 00:00 CONCLUSION: 1. No evidence of brainstem hemorrhage. 2. Small foci of encephalomalacia in the left occipital lobe and right cerebellum 3. No evidence of acute infarct, hemorrhage, mass or edema. 4. No evidence of enhancing intra-axial or extra-axial lesions. Venous Doppler Study 03/19/18 00:00 CONCLUSION: The study is negative for bilateral lower extremity deep venous thrombosis. Foot X-Ray 03/22/18 00:00 CONCLUSION: No acute bony destructive change. Previous amputations as above. Fairly marked soft tissue swelling of the forefoot. Abdomen X-Ray 03/26/18 00:00 CONCLUSION: Abdomen/Pelvis CT 03/28/18 00:00 CONCLUSION: 1. Minimal increase in the trace bilateral pleural effusions with compressive atelectasis in both bases. 2. Gallstones in a benign-appearing gallbladder 3. I don't see evidence for colitis. 4. I don't see inflammatory changes in the abdomen. Chest CT 03/28/18 00:00 CONCLUSION: 1. Biventricular cardiomegaly with coarse interstitial changes in both lungs. A component of this could be failure 2. Trace bilateral pleural effusions larger on the right.. These have decreased slightly in the interval. Foot MRI 03/28/18 00:00 CONCLUSION: 1. Difficult exam to interpret because of extensive soft tissue swelling. No obvious osteomyelitis. 2. Nuclear medicine tagged white cell study may help. Chest X-Ray 04/01/18 05:00 CONCLUSION: Bilateral airspace opacities which are increased in the right lung base. Physical Exam: no acute distress, morbidly obese Head: Present: normocephalic, atraumatic, prominent facial swelling Eye: Present: improved periorbital swelling no scleral icterus ENT: Present: mucous membranes moist, oropharynx clear NECK: trachea midline LUNGs: patient mechanically ventilated, clear Cardiovascular : RRR, S1, S2 no murmurs, rubs , gallops Abdominal : soft, less distended no reaction to palpation, no audfible bowel sounds no palpable organomegaly liquid stool in rectal collection system : hernandez in place hernandez in place with small amount of clear yellow urine Extremities: edema improved, less prominent 2-3 + prominent tree bark meeks Skin : intact, dry, no rash well perfused Neurological : arousable Psychiatric : unable to assess LINE: R IJ in place - OK Assessment and Plan - Plan sp cardiac arrest Anaerobic sepsis; veillonella ? source : GI vs osteo CT and MRI diid not reveal source of her anaerobic sepsis Xrays negative, CT/MR not feasible 2/2 clincial cond'n Acute VDRF, less O2 requirement PNA, ESBL/ ? KPC Kleb R to zerbaxa, S acvycaz and vabomere YOU - stable she is improving clinically Persistent leukocytosis - worse today - - dc Flagyl - cont avycaz for 1-2 more days if keeps improving - up the dose if GFR improves - monitor WBC - will need coloscopy after she revoeres (hem + stool and anaerobic sepsis) jeanne RN
[2018-04-02] MEDS: Ceftazidime/Avibactam Inj 0.94 GM in Sodium Chlor 0.9% Inj 50 ML IV.SIG SCH ×2 (00:16→11:46)
[2018-04-02] MEDS: Insulin NovoLIN Regular Correctional Sugar Inj SQ SCH ×6 (00:17→20:25)
[2018-04-02] MEDS: Oral Hygiene Kit OROPHARYNG SCH ×4 (00:17→15:48)
[2018-04-02] MEDS: Hypromellose 0.3% Opth Gel 10 GM Bottle EACH EYE SCH ×3 (02:30→20:24)
[2018-04-02] MEDS: Midazolam 50 MG/50 ML Inj 50 MG/50 ML BAG IV.CONT PRN ×5 (03:45→23:24)
[2018-04-02] MEDS: Heparin Drip 25,000 UNIT/250 ML BAG IV.CONT PRN (03:46)
[2018-04-02 05:54] LABS: Hemoglobin 7.8 gm/dL (11.6-15.3); Mean Corpuscular HGB Conc 32.4 % (32.0-36.0); Mean Corpuscular Hemoglobin 24.2 pg (27.0-34.0); Mean Corpuscular Volume 74.7 fL (80.0-100.0); Mean Platelet Volume 10.3 fL (7.0-11.0); Platelet Count 213 th/mm3 (150-450); Red Blood Count 3.21 mil/mm3 (4.00-5.30)
[2018-04-02 05:58] LABS: Activated Partial Thrombo Time 51.1 sec (24.3-30.1); INR 1.3 Ratio; Prothrombin Time 13.5 sec (9.8-11.6)
[2018-04-02 06:14] LABS: Carbon Dioxide 24.5 meq/L (21.0-32.0); Magnesium 2.2 mg/dL (1.5-2.5); Potassium 3.3 meq/L (3.5-5.1)
[2018-04-02] MEDS: QUEtiapine 25 MG Tablet PO SCH ×3 (06:44→21:24)
[2018-04-02] MEDS: metOLazone 5 MG Tablet PO SCH ×2 (08:58→20:27)
[2018-04-02] MEDS: Famotidine 20 MG Tablet PO SCH ×2 (08:58→20:28)
[2018-04-02] MEDS: MethylPREDNISolone Sod Succinate Inj 40 MG/ML Vial IV.PUSH SCH (08:58)
[2018-04-02] MEDS: amLODIPine 10 MG Tablet PO SCH (08:58)
[2018-04-02] MEDS: Chlorhexidine 0.12% Oral Kit 15 ML UDC OROPHARYNG SCH ×2 (08:58→20:25)
[2018-04-02] MEDS: Lipase/Protease/Amylase 24/76/120 DR Capsule PO SCH ×3 (08:58→17:03)
[2018-04-02] MEDS: Senna/Docusate Sodium 8.6/50 MG Tablet PO SCH ×2 (08:59→20:29)
[2018-04-02] MEDS: Insulin Detemir Inj 1,000 UNIT/10 ML Vial SQ SCH (09:48)
[2018-04-02] MEDS: Potassium Chloride 25 MEQ Effervescent Tablet PO SCH (09:49)
--- NOTE | 2018-04-02 10:23 | P.PNCC ---
Subjective Subjective Remarks/Hospital Course: 52-year-old female with past medical history of diabetes mellitus, hypertension, hyperlipidemia, atrial fibrillation on chronic anticoagulation with warfarin, chronic diastolic heart failure, asthma, WISAM, peripheral vascular disease, super morbid obesity. She has been at [facility] since 03/02/18. [facility] was called due to respiratory distress. When they arrived as she was found to be in respiratory distress with sats in the 70s. She was communicating with them and reportedly said "leave me alone". She then had PEA arrest. She received CPR reportedly 10-15 minutes and received 2 doses of epinephrine. LMA was placed by EVAC. LMA was removed and she was intubated by Dr. Daly after receiving etomidate 20 mg IV and succinylcholine. She has demonstrated purposeful movements post intubation, and is now on a propofol drip. She was recently [place] [facility] [place] due to hypoglycemia, fall after isolated episode of diarrhea, hypoxia requiring HFNC. She has chronic interstitial changes on CXR. Reviewed records from [facility] which indicate she completed a 7 day course of Levaquin and has been on a prednisone taper. Current CXR shows bibasilar opacities. WBC is 16 ( previously 7.9). She has acute hypercapneic and hypoxemic respiratory failure. 03/19: Afebrile. Remains on 100% FiO2 PEEP of 12. Central has been placed for access due to multiple drips. Plan MRI brain today if respiratory status improves. Does not tolerate lying flat. Likely will need epoprostenol and rotaprone 03/20: Started on epoprostenol and currently on a rotor from bed. Currently on cisatracurium drip at 1 mcg/kg/min. Diuresing well. 03/21: Weaning down epoprostenol. Remains on cisatracurium drip at 6 mcg/kg/ min. Diuresis 6 L. Saturation was improved FiO2 down to 45%. 03/22: Hypothermic overnight. Currently euthermic. Excellent response to bumetanide drip. FiO2 down to 40%. PEEP down to 8. Possible discontinue paralytic agent today. 03/23: Resting comfortable in bed in no acute distress. Afebrile. Desaturated so placed back on rotor prone bed. Creatinine slowly increasing. 03/24: Afebrile. Worsening chest x-ray it appears to be volume overloaded again. +10 L past 24 hours. Will restart on bumetanide drip. Plan for bronchoscopy today. Switch to ceftazidime/avibactam secondary to ESBL positive Klebsiella pneumonia 03/25: FiO2 to 55%. Tolerating demanding drip with -2 L past 24 hours. Bronchoscopy results pending. Positive BM. Restarting tube feeding today 03/26: Cr continues to rise, although clinically continues to appear severely volume overloaded. fio2 70%. supine all night. off nimbex. off flolan. ID managing ESBL/MDRO/KPC Klebsiella and anaerobic bacteremia. 03/27: off rotaprone bed. multiple desat episodes overnight. on 100% fio2 and PEEP 10 this AM. good diuresis with net -2L/24h. bumex drip continues. awakens and follows commands. 03/28: not diuresing as well as yesterday. wbc uptrending. 2 more episodes of bradycardia, not associated with hypoxia. however, fio2 remains severely elevated. I increased her peep to 14. still arouses and moves all extremities. high concern for ongoing infectious etiology, but with high o2 requirements and intermittent bradycardia requiring atropine, at present too unstable for repeat imaging. 03/29: ct C/A/P without overt infectious source. does demonstrate radiographic evidence of biventricular dysfunction. bedside echo today demonstrates the same , and dilated IVC without respiratory variation. off vasopressors. required atropine for a HR of 15 once overnight. still very hypoxic: changed to APRV 5:1 , 28/0, 4/0.8. SUBJECTIVE 03/30: remains on APRV with hypoxia. multiple episodes of bradycardia and a 18 second pause yesterday. trialed on dobutamine but with multiple dysrhythmias. now on low-dose dopamine to mitigate bradycardia. adequate diuresis overnight. cxr improving slightly. still remains volume overloaded, and YOU persists. 03/31: mild improvements in fio2. remains on APRV. no more bradycardia today. still on dopamine to prevent pauses/bradycardia. YOU persists, but stable. unable to diurese yesterday and now net +2L despite fluid overload. must increase forced diuresis to improve hypoxemia. 04/01: Remains sedated, orally intubated on mechanical ventilation. Being diuresed. Started on Reglan in view of high gastric residuals and decreasing fentanyl as tolerated. 04/02: Remains sedated, orally intubated on APRV mode mechanical ventilation. Objective Vital Signs / I&O: Vital Signs 04/01/18 11:00 04/01/18 11:50 04/01/18 12:00 Temperature 98.6 F 98.4 F Pulse Rate 79 76 76 Respiratory Rate 19 25 H 20 Blood Pressure 150/61 H 151/61 H Pulse Oximetry 98 96 04/01/18 13:00 04/01/18 14:00 04/01/18 15:00 Temperature 98.9 F 98.4 F Pulse Rate 90 70 70 Respiratory Rate 20 19 Blood Pressure 150/63 H 117/49 L 117/61 Pulse Oximetry 98 96 96 04/01/18 16:00 04/01/18 17:00 04/01/18 18:00 Temperature 98.8 F 98.7 F 98.7 F Pulse Rate 85 82 82 Respiratory Rate 23 21 20 Blood Pressure 147/61 H 146/63 H 147/62 H Pulse Oximetry 98 94 L 97 04/01/18 19:00 04/01/18 20:00 04/01/18 20:01 Temperature 98.6 F Pulse Rate 80 83 83 Respiratory Rate 16 16 20 Blood Pressure 145/62 H 150/64 H Pulse Oximetry 97 97 98 04/01/18 21:00 04/01/18 22:00 04/01/18 23:00 Temperature Pulse Rate 93 H 80 85 Respiratory Rate 15 10 L 15 Blood Pressure 147/65 H 134/60 151/65 H Pulse Oximetry 97 99 97 04/01/18 23:41 04/02/18 00:00 04/02/18 01:00 Temperature 98.8 F Pulse Rate 87 87 92 H Respiratory Rate 28 H 19 15 Blood Pressure 148/64 H 148/65 H Pulse Oximetry 95 93 L 95 04/02/18 02:00 04/02/18 03:00 04/02/18 04:00 Temperature 98.7 F Pulse Rate 89 90 85 Respiratory Rate 17 13 16 Blood Pressure 148/65 H 155/65 H 153/65 H Pulse Oximetry 97 96 96 04/02/18 04:06 04/02/18 05:00 04/02/18 06:00 Temperature Pulse Rate 85 83 87 Respiratory Rate 21 10 L 14 Blood Pressure 149/63 H 152/65 H Pulse Oximetry 97 96 96 04/02/18 08:20 Temperature Pulse Rate Respiratory Rate 23 Blood Pressure Pulse Oximetry 100 Intake & Output 04/01/18 04/02/18 04/02/18 18:59 06:59 18:59 Intake Total 1274 / 1274 2681 / 2681 Output Total 3300 / 3300 2150 / 2150 Balance -2025 / -2025 531 / 531 Weight 144 kg Intake: IV 1150 / 1150 1350 / 1350 Bumex Inj 25 mg In 100 ml @ 1 100 / 100 MG/HR 4 mls/hr IV.CONT .Q24H JACKI Rx#:[id number] DOPamine 400 MG/250 ML Premix 250 / 250 400 mg In 250 ml @ 3 MCG/KG/MIN 15.863 mls/hr IV.CONT TITRATE PRN Rx#:[id number] Heparin/D5W 25,000 U/250 mL 25, 250 / 250 000 unit In 250 ml @ 1,000 UNITS/HR 10 mls/hr IV.CONT TITRATE PRN Rx#:[id number] Versed Inj 50 mg In 50 ml @ 2 150 / 150 100 / 100 MG/HR 2 mls/hr IV.CONT TITRATE PRN Rx#:[id number] Cardene Inj 25 MG In NS Inj 240 250 / 250 ML @ 5 MG/HR 50 mls/hr IV.CONT TITRATE PRN Rx#:[id number] Avycaz Inj 0.94 GM In NS Inj 50 50 / 50 ML @ 25 mls/hr IV.SIG Q12H JACKI Rx#:[id number] KCl 40 mEq Premix Inj 40 meq In 100 / 100 100 ml @ 25 mls/hr IV.SIG Q4H JACKI Rx#:[id number] fentaNYL 10 mcg/mL Premix Drip 250 / 250 2,500 mcg In 250 ml @ 50 MCG/HR 5 mls/hr IV.SIG TITRATE PRN Rx #:[id number] NS Inj 1,000 ML @ 10 mls/hr 1000 / 1000 OTHER .Q24H JACKI Rx#:[id number] Tube Feeding 124 / 124 131 / 131 Water Bolus Amount 1200 / 1200 Output: Urine 3100 / 3100 Stool 200 / 200 50 / 50 Urine Amount (Catheter) 2099 Indwelling Urethral Catheter 2099 Other: Date of Last Bowel Movement 03/31/18 03/31/18 Result Diagrams: 04/02/18 05:00 04/02/18 05:00 Objective Remarks: GENERAL: 52-year-old female patient with an elevated BMI who is lying in bed orotracheally intubated. SKIN: Intertriginous lesion with erythema and satellite lesions under left breast. Skin breakdown over medial aspect of left ankle. HEAD: Atraumatic. Normocephalic. EYES: bilateral pupils sluggishly reactive. No scleral icterus. No injection or drainage. ENT: No nasal bleeding or discharge. Mucous membranes pink and moist. Tongue and lip/oral mucosa is swollen and edematous. NECK: Trachea midline. No JVD. CARDIOVASCULAR: RRR. sinus. RESPIRATORY: Diminished bibasilar with no appreciable rales. Scattered rhonchi bilaterally. GASTROINTESTINAL: Abdomen obese, soft, non-tender, nondistended OG in place. 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 Legs revealed 2+ pitting edema bilateral lower extremities. NEUROLOGICAL: RASS -2/-3. awakens and follows intermittent commands. moves all extremities. Assessment and Plan - Assessment and Plan Plan: Assessment: 52yF with severe ARDS and organ failure secondary to MDRO/ESBL/KPC Klebsiella and Veillonella bacteremia. remains very critically ill. does still appear to be volume overloaded combined with significant myocardial dysfunction. continue dopamine to prevent bradycardia. continue APRV mode of ventilation. continue forced diuresis. Family concerned about goals of care and if this level of care was consistent with patient's wishes. I think it is hernandez to get palliative care involved. however, it does appear that given her young age, we could successfully rehabilitate her to a functional status at least consistent with her prior functional status at her SNF, and possibly improved depending on her clinical course. Of course this would take months of rehabilitation, and will likely include trach/peg due to her severe ARDS and hypoxia. I would support aggressive measures at this point, unless it becomes clear that the patient has a strong opinion against such measures. Remains critically ill today with multiple ongoing life-threatening organ dysfunction. NEURO/PSYCH: Acute encephalopathy - secondary to hypercapnia, improving. Abnormal brain CT with 3 mm hyperdensity in central [place] Major depressive disorder NOS Chronic opioid use Encephalomalacia right cerebellum/left occipital lobe scheduled oxycodone 20mg po q4h seroquel 50mg po q8h for delirium. versed and fentanyl for goal RASS -2. Followup CT brain - . Solitary 3 mm hyperdensity in the central [place] of uncertain significance. Differential considerations include a punctate calcification and acute hemorrhage MRI brain left occipital lobe and right cerebellum. She does not meet criteria for induced therapeutic hypothermia because she is following commands post CPR. Holding nabumetone 500 mg twice daily, methocarbamol 750 mg 4 times daily and oxycodone 10 mg every 6 hours Holding gabapentin 200 mg 3 times daily Holding tizanidine 4 mg 3 times daily RESP: Acute hypercapnic and hypoxemic respiratory failure Severe ARDS Acute asthma exacerbation Healthcare associated pneumonia WISAM/OHS Prior tobacco abuse Bilateral pleural effusions right 2.2 cm. Left 1.3 cm LMA was placed in the field by EVAC. Intubated in ED 03/18 Ventilator bundle On albuterol/ipratropium aerosols every 4 hours with albuterol aerosols every 2 hours as needed for dyspnea Weaned off epoprostenol 03/23 Spontaneous breathing trials when clinically indicated. Not today. remains hypoxic on aprv. CT thorax revealed right middle lobe/lower lobe consolidation left lower lobe consolidation. Right pleural effusion 2.2 cm. Left pleural effusion 1.3 cm Methylprednisolone succinate 40 mg IV every 12 hours. Antibiotics as per below. CXR still with pulmonary edema superimposed on ARDS. wean Phigh to 24 from 28. stretch Thigh for goal I:E 6:1 today. repeat ABG today CT chest/abd/pelvis 03/28: biventricular enlargement, pulmonary edema. ABG and CXR in AM. CV: Hypertension Hyperlipidemia Chronic diastolic heart failure Paroxysmal atrial fibrillation on chronic anti-coagulation with warfarin Peripheral vascular disease/peripheral arterial disease Elevated troponin intermittent bradycardia Cor pulmonale biventricular dysfunction Holding home medication of clonidine 0.1 mg every 6 hours nifedipine 90 mg daily. holding carvedilol 2D echo 02/24/18ejection fraction 50%. Wall thickness upper limits of normal. Trace MR. Lactic acid cleared Continue atorvastatin 40 mg daily Doppler bilateral upper and lower extremities with subtherapeutic INR revealed no acute thrombus heparin drip. intermittent bradycardia prevents restarting home clonidine hold carvedilol prn atropine continue dopamine infusion amlodipine 10mg po daily hydralazine 100mg po q8h glycopyrrolate to 0.4mg IM q4h. continue bumex drip at 1mg/hr. continue metolazone 5mg po q12h one dose of spironolactone 25mg po today need to achieve net negative fluid balance. GI: History of GERD Chronic pancreatitis insufficiency Hypoalbuminemia vital high-protein goal 55 cc an hour per GIs recommendation Famotidine for GI prophylaxis Docusate sodium/senna 1 tablet twice daily for bowel regimen Creon home medication 3 times daily Added Reglan 10 mg IV every 8 hourly on 04/01 for high gastric residuals and decreasing fentanyl GTT as tolerated. FEN/RENAL: Acute kidney injury superimposed on CKD Chronic kidney disease stage III Hypernatremia Hypokalemia Acute severe intravascular volume overload with pulmonary edema [place] catheter was placed in the emergency department. Monitor intake and output. Monitor electrolytes and replace as indicated Free water 300 every 4 hours. Creatinine is stable, though remains elevated. Diuretic plan: bumex at 1mg/hr continues drip metolazone 5mg po q12h continuous albumin infusion to maintain intravascular volume. one dose of spironolactone 25mg po today. ID: Acute healthcare associated pneumonia -ESBL positive Klebsiella pneumonia Veillonella species bacteremia Metronidazole 500 every 6 hours, ceftazidime/avibactam day #4 Discontinue piperacillin/tazobactam 03/24 Discontinue 03/22 cefepime 2 g IV every 12 hours, azithromycin 500 mg daily and vancomycin Consultation to ID workup Veillonella species bacteremia Blood cultures 2 03/18 Veillonella spp. Repeat 03/20 no growth to date Sputum, ESBL positive Klebsiella pneumonia Pneumococcal urinary antigens, influenza a and B and chlamydia and mycoplasma all pending/negative HEME: Leukocytosis Chronic anemia/normocytic Chronic anti-coagulation with warfarin 4 mg daily. INR target is 2-3. Monitor CBC daily. Follow trends No indication for transfusion of blood products at this time. Discontinued heparin drip 03/22, restarted 03/26. heparin drip ENDO: Diabetes mellitus History of gout d/c insulin drip and transition to SSI q4h high scale increase levemir to 25 units SQ daily Holding glipizide 10 mg twice daily and insulin glargine/home medication Holding allopurinol 300 mg daily/home medication MSK: Elevated BMI Osteoporosis/osteoarthritis PT evaluate and treat Okay to hold cholecalciferol 5000 units daily PROPH: SCDs for DVT prophylaxis. Heparin drip ACCESS: Right IJ CVL placed 03/19. Right axillary arterial line placed 03/19: must remain today, still critically ill. Discussed at length with patient's brother at bedside. Explained to him the need for tracheostomy however patient needs to be weaned down further on mechanical ventilation prior to procedure. He tells me that patient would not want tracheostomy and senior care placement based on his previous discussions with her. He tells me that she was not doing well for the last 6 months prior to her current hospitalization. Will discuss further with palliative care team. Critical care time 35 minutes, exclusive of separately billed procedures.
[2018-04-02] MEDS: DOPamine 400 MG/250 ML Premix 400 MG/250 ML BAG IV.CONT PRN (11:05)
[2018-04-02] MEDS: Bumetanide Inj 25 MG/100 ML BAG IV.CONT SCH (14:30)
[2018-04-02] MEDS: hydrALAZINE 50 MG Tablet PO PRN (18:57)
[2018-04-02] MEDS: fentaNYL 10 mcg/mL Premix Drip 2,500 MCG/250 ML BAG IV.SIG PRN (20:41)
[2018-04-03] MEDS: Oral Hygiene Kit OROPHARYNG SCH ×4 (00:01→16:36)
[2018-04-03] MEDS: Insulin NovoLIN Regular Correctional Sugar Inj SQ SCH ×6 (00:01→20:07)
[2018-04-03] MEDS: hydrALAZINE 50 MG Tablet PO PRN (00:03)
[2018-04-03] MEDS: Hypromellose 0.3% Opth Gel 10 GM Bottle EACH EYE SCH ×3 (02:26→20:10)
[2018-04-03] MEDS: niCARdipine Inj 25 MG in Sodium Chlor 0.9% Inj 240 ML IV.CONT PRN ×6 (02:26→23:52)
[2018-04-03] MEDS: Midazolam 50 MG/50 ML Inj 50 MG/50 ML BAG IV.CONT PRN ×5 (03:33→21:47)
[2018-04-03] MEDS: QUEtiapine 25 MG Tablet PO SCH ×3 (05:52→21:35)
[2018-04-03] MEDS: Heparin Drip 25,000 UNIT/250 ML BAG IV.CONT PRN (05:52)
[2018-04-03] MEDS: Chlorhexidine 0.12% Oral Kit 15 ML UDC OROPHARYNG SCH ×2 (07:39→20:07)
[2018-04-03] MEDS: metOLazone 5 MG Tablet PO SCH ×2 (07:40→20:00)
[2018-04-03] MEDS: Lipase/Protease/Amylase 24/76/120 DR Capsule PO SCH ×3 (08:17→17:40)
[2018-04-03] MEDS: MethylPREDNISolone Sod Succinate Inj 40 MG/ML Vial IV.PUSH SCH (08:17)
[2018-04-03] MEDS: Famotidine 20 MG Tablet PO SCH ×2 (08:17→20:01)
[2018-04-03] MEDS: amLODIPine 10 MG Tablet PO SCH (08:18)
[2018-04-03] MEDS: Insulin Detemir Inj 1,000 UNIT/10 ML Vial SQ SCH (08:18)
[2018-04-03] MEDS: Senna/Docusate Sodium 8.6/50 MG Tablet PO SCH ×2 (08:18→20:16)
[2018-04-03 09:16] LABS: Calcium 9.3 mg/dL (8.5-10.1); Carbon Dioxide 27.9 meq/L (21.0-32.0); Potassium 3.1 meq/L (3.5-5.1)
--- NOTE | 2018-04-03 09:52 | P.PNCC ---
Subjective Subjective Remarks/Hospital Course: 52-year-old female with past medical history of diabetes mellitus, hypertension, hyperlipidemia, atrial fibrillation on chronic anticoagulation with warfarin, chronic diastolic heart failure, asthma, WISAM, peripheral vascular disease, super morbid obesity. She has been at [facility] since 03/02/18. Abeba JACOBO was called due to respiratory distress. When they arrived as she was found to be in respiratory distress with sats in the 70s. She was communicating with them and reportedly said "leave me alone". She then had PEA arrest. She received CPR reportedly 10-15 minutes and received 2 doses of epinephrine. LMA was placed by EVAC. LMA was removed and she was intubated by Dr. Daly after receiving etomidate 20 mg IV and succinylcholine. She has demonstrated purposeful movements post intubation, and is now on a propofol drip. She was recently admitted to [facility] 02/24-03/02 due to hypoglycemia, fall after isolated episode of diarrhea, hypoxia requiring HFNC. She has chronic interstitial changes on CXR. Reviewed records from [facility] which indicate she completed a 7 day course of Levaquin and has been on a prednisone taper. Current CXR shows bibasilar opacities. WBC is 16 ( previously 7.9). She has acute hypercapneic and hypoxemic respiratory failure. 03/19: Afebrile. Remains on 100% FiO2 PEEP of 12. Central has been placed for access due to multiple drips. Plan MRI brain today if respiratory status improves. Does not tolerate lying flat. Likely will need epoprostenol and rotaprone 03/20: Started on epoprostenol and currently on a rotor from bed. Currently on cisatracurium drip at 1 mcg/kg/min. Diuresing well. 03/21: Weaning down epoprostenol. Remains on cisatracurium drip at 6 mcg/kg/ min. Diuresis 6 L. Saturation was improved FiO2 down to 45%. 03/22: Hypothermic overnight. Currently euthermic. Excellent response to bumetanide drip. FiO2 down to 40%. PEEP down to 8. Possible discontinue paralytic agent today. 03/23: Resting comfortable in bed in no acute distress. Afebrile. Desaturated so placed back on rotor prone bed. Creatinine slowly increasing. 03/24: Afebrile. Worsening chest x-ray it appears to be volume overloaded again. +10 L past 24 hours. Will restart on bumetanide drip. Plan for bronchoscopy today. Switch to ceftazidime/avibactam secondary to ESBL positive Klebsiella pneumonia 03/25: FiO2 to 55%. Tolerating demanding drip with -2 L past 24 hours. Bronchoscopy results pending. Positive BM. Restarting tube feeding today 03/26: Cr continues to rise, although clinically continues to appear severely volume overloaded. fio2 70%. supine all night. off nimbex. off flolan. ID managing ESBL/MDRO/KPC Klebsiella and anaerobic bacteremia. 03/27: off rotaprone bed. multiple desat episodes overnight. on 100% fio2 and PEEP 10 this AM. good diuresis with net -2L/24h. bumex drip continues. awakens and follows commands. 03/28: not diuresing as well as yesterday. wbc uptrending. 2 more episodes of bradycardia, not associated with hypoxia. however, fio2 remains severely elevated. I increased her peep to 14. still arouses and moves all extremities. high concern for ongoing infectious etiology, but with high o2 requirements and intermittent bradycardia requiring atropine, at present too unstable for repeat imaging. 03/29: ct C/A/P without overt infectious source. does demonstrate radiographic evidence of biventricular dysfunction. bedside echo today demonstrates the same , and dilated IVC without respiratory variation. off vasopressors. required atropine for a HR of 15 once overnight. still very hypoxic: changed to APRV 5:1 , 28/0, 4/0.8. SUBJECTIVE 03/30: remains on APRV with hypoxia. multiple episodes of bradycardia and a 18 second pause yesterday. trialed on dobutamine but with multiple dysrhythmias. now on low-dose dopamine to mitigate bradycardia. adequate diuresis overnight. cxr improving slightly. still remains volume overloaded, and YOU persists. 03/31: mild improvements in fio2. remains on APRV. no more bradycardia today. still on dopamine to prevent pauses/bradycardia. YOU persists, but stable. unable to diurese yesterday and now net +2L despite fluid overload. must increase forced diuresis to improve hypoxemia. 04/01: Remains sedated, orally intubated on mechanical ventilation. Being diuresed. Started on Reglan in view of high gastric residuals and decreasing fentanyl as tolerated. 8/2: Remains sedated, orally intubated on APRV mode mechanical ventilation. 8/3: Remains sedated, orally intubated on mechanical ventilation. Awaiting family meeting with palliative care to decide goals of therapy. Being diuresed. Objective Vital Signs / I&O: Vital Signs 04/02/18 10:00 04/02/18 11:00 04/02/18 11:56 Temperature 98.6 F Pulse Rate 80 86 Respiratory Rate 16 20 23 Blood Pressure 144/62 H 136/58 L Pulse Oximetry 98 97 97 04/02/18 12:00 04/02/18 13:00 04/02/18 14:00 Temperature 98.4 F 98.5 F Pulse Rate 75 70 80 Respiratory Rate 19 20 21 Blood Pressure 147/65 H 149/59 H 164/82 H Pulse Oximetry 98 98 98 04/02/18 15:00 04/02/18 15:15 04/02/18 16:00 Temperature Pulse Rate 81 82 Respiratory Rate 21 19 20 Blood Pressure 171/69 H 165/69 H Pulse Oximetry 98 97 98 04/02/18 17:00 04/02/18 18:00 04/02/18 19:00 Temperature 98.5 F Pulse Rate 79 79 78 Respiratory Rate 20 19 19 Blood Pressure 168/70 H 167/72 H 168/68 H Pulse Oximetry 98 98 99 04/02/18 20:00 04/02/18 20:07 04/02/18 21:00 Temperature 97.6 F Pulse Rate 75 93 H Respiratory Rate 16 16 17 Blood Pressure 168/69 H 167/72 H Pulse Oximetry 98 99 98 04/02/18 21:57 04/02/18 22:00 04/02/18 23:00 Temperature Pulse Rate 83 80 Respiratory Rate 19 16 20 Blood Pressure 169/70 H 172/72 H Pulse Oximetry 94 L 96 04/02/18 23:27 04/03/18 00:00 04/03/18 00:50 Temperature 97.4 F L Pulse Rate 73 Respiratory Rate 21 12 16 Blood Pressure 166/69 H Pulse Oximetry 96 99 04/03/18 01:00 04/03/18 02:00 04/03/18 03:00 Temperature Pulse Rate 79 78 78 Respiratory Rate 18 18 17 Blood Pressure 168/71 H 162/68 H 155/63 H Pulse Oximetry 97 97 97 04/03/18 04:00 04/03/18 04:34 04/03/18 05:00 Temperature 97.7 F Pulse Rate 96 H 85 Respiratory Rate 16 23 15 Blood Pressure 157/67 H 174/66 H Pulse Oximetry 96 94 L 95 04/03/18 06:00 04/03/18 07:00 04/03/18 08:00 Temperature 98.1 F 98.1 F Pulse Rate 81 79 80 Respiratory Rate 16 19 Blood Pressure 166/64 H 159/63 H 161/69 H Pulse Oximetry 96 98 04/03/18 09:00 04/03/18 09:18 Temperature Pulse Rate 79 80 Respiratory Rate 20 13 Blood Pressure 148/59 H Pulse Oximetry 99 Intake & Output 04/02/18 04/03/18 04/03/18 18:59 06:59 18:59 Intake Total 615 / 615 1284 / 1284 50 / 50 Output Total 2950 / 2950 3200 / 3200 Balance -2335 / -2335 -1916 / -1916 50 / 50 Weight 139.5 kg Intake: IV 450 / 450 1000 / 1000 50 / 50 Bumex Inj 25 mg In 100 ml @ 1 100 / 100 MG/HR 4 mls/hr IV.CONT .Q24H JACKI Rx#:[id number] DOPamine 400 MG/250 ML Premix 250 / 250 400 mg In 250 ml @ 3 MCG/KG/MIN 15.863 mls/hr IV.CONT TITRATE PRN Rx#:[id number] Heparin/D5W 25,000 U/250 mL 25, 250 / 250 000 unit In 250 ml @ 1,000 UNITS/HR 10 mls/hr IV.CONT TITRATE PRN Rx#:[id number] Versed Inj 50 mg In 50 ml @ 2 100 / 100 150 / 150 50 / 50 MG/HR 2 mls/hr IV.CONT TITRATE PRN Rx#:[id number] Cardene Inj 25 MG In NS Inj 240 500 / 500 ML @ 5 MG/HR 50 mls/hr IV.CONT TITRATE PRN Rx#:[id number] Avycaz Inj 0.94 GM In NS Inj 50 100 / 100 ML @ 25 mls/hr IV.SIG Q12H JACKI Rx#:[id number] Tube Feeding 165 / 165 184 / 184 Water Bolus Amount 100 / 100 Output: Stool 100 / 100 100 / 100 Urine Amount (Catheter) 2850 / 2850 3100 / 3100 Indwelling Urethral Catheter 2850 / 2850 3100 / 3100 Other: Date of Last Bowel Movement 03/31/18 04/03/18 04/03/18 Result Diagrams: 04/02/18 05:00 04/03/18 08:30 Objective Remarks: GENERAL: 52-year-old female patient with an elevated BMI who is lying in bed orotracheally intubated. SKIN: Intertriginous lesion with erythema and satellite lesions under left breast. Skin breakdown over medial aspect of left ankle. HEAD: Atraumatic. Normocephalic. EYES: bilateral pupils sluggishly reactive. No scleral icterus. No injection or drainage. ENT: No nasal bleeding or discharge. Mucous membranes pink and moist. Tongue and lip/oral mucosa is swollen and edematous. NECK: Trachea midline. No JVD. CARDIOVASCULAR: RRR. sinus. RESPIRATORY: Diminished bibasilar with no appreciable rales. Scattered rhonchi bilaterally. GASTROINTESTINAL: Abdomen obese, soft, non-tender, nondistended OG in place. 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 Legs revealed 2+ pitting edema bilateral lower extremities. NEUROLOGICAL: RASS -2/-3. awakens and follows intermittent commands. moves all extremities. Assessment and Plan - Assessment and Plan Plan: Assessment: 52yF with severe ARDS and organ failure secondary to MDRO/ESBL/KPC Klebsiella and Veillonella bacteremia. remains very critically ill. does still appear to be volume overloaded combined with significant myocardial dysfunction. continue dopamine to prevent bradycardia. continue APRV mode of ventilation. continue forced diuresis. Family concerned about goals of care and if this level of care was consistent with patient's wishes. I think it is hernandez to get palliative care involved. however, it does appear that given her young age, we could successfully rehabilitate her to a functional status at least consistent with her prior functional status at her SNF, and possibly improved depending on her clinical course. Of course this would take months of rehabilitation, and will likely include trach/peg due to her severe ARDS and hypoxia. I would support aggressive measures at this point, unless it becomes clear that the patient has a strong opinion against such measures. Remains critically ill today with multiple ongoing life-threatening organ dysfunction. NEURO/PSYCH: Acute encephalopathy - secondary to hypercapnia, improving. Abnormal brain CT with 3 mm hyperdensity in central [place] Major depressive disorder NOS Chronic opioid use Encephalomalacia right cerebellum/left occipital lobe scheduled oxycodone 20mg po q4h seroquel 50mg po q8h for delirium. versed and fentanyl for goal RASS -2. Followup CT brain - . Solitary 3 mm hyperdensity in the central [place] of uncertain significance. Differential considerations include a punctate calcification and acute hemorrhage MRI brain left occipital lobe and right cerebellum. She does not meet criteria for induced therapeutic hypothermia because she is following commands post CPR. Holding nabumetone 500 mg twice daily, methocarbamol 750 mg 4 times daily and oxycodone 10 mg every 6 hours Holding gabapentin 200 mg 3 times daily Holding tizanidine 4 mg 3 times daily RESP: Acute hypercapnic and hypoxemic respiratory failure Severe ARDS Acute asthma exacerbation Healthcare associated pneumonia WISAM/OHS Prior tobacco abuse Bilateral pleural effusions right 2.2 cm. Left 1.3 cm LMA was placed in the field by EVAC. Intubated in ED 03/18 Ventilator bundle On albuterol/ipratropium aerosols every 4 hours with albuterol aerosols every 2 hours as needed for dyspnea Weaned off epoprostenol 03/23 Spontaneous breathing trials when clinically indicated. Not today. remains hypoxic on aprv. CT thorax revealed right middle lobe/lower lobe consolidation left lower lobe consolidation. Right pleural effusion 2.2 cm. Left pleural effusion 1.3 cm Methylprednisolone succinate 40 mg IV every 12 hours. Antibiotics as per below. CXR still with pulmonary edema superimposed on ARDS. wean Phigh to 24 from 28. stretch Thigh for goal I:E 6:1 today. repeat ABG today CT chest/abd/pelvis 03/28: biventricular enlargement, pulmonary edema. ABG and CXR in AM. CV: Hypertension Hyperlipidemia Chronic diastolic heart failure Paroxysmal atrial fibrillation on chronic anti-coagulation with warfarin Peripheral vascular disease/peripheral arterial disease Elevated troponin intermittent bradycardia Cor pulmonale biventricular dysfunction Holding home medication of clonidine 0.1 mg every 6 hours nifedipine 90 mg daily. holding carvedilol 2D echo 02/24/18ejection fraction 50%. Wall thickness upper limits of normal. Trace MR. Lactic acid cleared Continue atorvastatin 40 mg daily Doppler bilateral upper and lower extremities with subtherapeutic INR revealed no acute thrombus heparin drip. intermittent bradycardia prevents restarting home clonidine hold carvedilol prn atropine continue dopamine infusion amlodipine 10mg po daily hydralazine 100mg po q8h glycopyrrolate to 0.4mg IM q4h. continue bumex drip at 1mg/hr. continue metolazone 5mg po q12h one dose of spironolactone 25mg po today need to achieve net negative fluid balance. GI: History of GERD Chronic pancreatitis insufficiency Hypoalbuminemia vital high-protein goal 55 cc an hour per GIs recommendation Famotidine for GI prophylaxis Docusate sodium/senna 1 tablet twice daily for bowel regimen Creon home medication 3 times daily Added Reglan 10 mg IV every 8 hourly on 04/01 for high gastric residuals and decreasing fentanyl GTT as tolerated. FEN/RENAL: Acute kidney injury superimposed on CKD Chronic kidney disease stage III Hypernatremia Hypokalemia Acute severe intravascular volume overload with pulmonary edema [place] catheter was placed in the emergency department. Monitor intake and output. Monitor electrolytes and replace as indicated Free water 300 every 4 hours. Creatinine is stable, though remains elevated. Diuretic plan: bumex at 1mg/hr continues drip metolazone 5mg po q12h continuous albumin infusion to maintain intravascular volume. one dose of spironolactone 25mg po today. ID: Acute healthcare associated pneumonia -ESBL positive Klebsiella pneumonia Veillonella species bacteremia Metronidazole 500 every 6 hours, ceftazidime/avibactam day #4 Discontinue piperacillin/tazobactam 03/24 Discontinue 03/22 cefepime 2 g IV every 12 hours, azithromycin 500 mg daily and vancomycin Consultation to ID workup Veillonella species bacteremia Blood cultures 2 03/18 Veillonella spp. Repeat 03/20 no growth to date Sputum, ESBL positive Klebsiella pneumonia Pneumococcal urinary antigens, influenza a and B and chlamydia and mycoplasma all pending/negative HEME: Leukocytosis Chronic anemia/normocytic Chronic anti-coagulation with warfarin 4 mg daily. INR target is 2-3. Monitor CBC daily. Follow trends No indication for transfusion of blood products at this time. Discontinued heparin drip 03/22, restarted 03/26. heparin drip ENDO: Diabetes mellitus History of gout d/c insulin drip and transition to SSI q4h high scale increase levemir to 25 units SQ daily Holding glipizide 10 mg twice daily and insulin glargine/home medication Holding allopurinol 300 mg daily/home medication MSK: Elevated BMI Osteoporosis/osteoarthritis PT evaluate and treat Okay to hold cholecalciferol 5000 units daily PROPH: SCDs for DVT prophylaxis. Heparin drip ACCESS: Right IJ CVL placed 03/19. Right axillary arterial line placed 03/19: must remain today, still critically ill. Discussed at length with patient's brother at bedside. Explained to him the need for tracheostomy however patient needs to be weaned down further on mechanical ventilation prior to procedure. He tells me that patient would not want tracheostomy and half-way placement based on his previous discussions with her. He tells me that she was not doing well for the last 6 months prior to her current hospitalization. Will discuss further with palliative care team. Critical care time 35 minutes, exclusive of separately billed procedures.
[2018-04-03] MEDS: fentaNYL 10 mcg/mL Premix Drip 2,500 MCG/250 ML BAG IV.SIG PRN (11:35)
[2018-04-03] MEDS: Ceftazidime/Avibactam Inj 0.94 GM in Sodium Chlor 0.9% Inj 50 ML IV.SIG SCH ×2 (12:40)
--- NOTE | 2018-04-03 13:19 | P.DIET ---
Nutritional Evaluation Type of nutrition evaluation: follow-up Nutrition consult regarding: Tube Feeding Nutrition screening: [facility] Objective - Diagnosis Cardiac Arrest - Objective [place] body weight: 100 kg % IBW: 295 Body Weight Used for Calculations: IBW (45.5kg) Energy Needs - Lower Range (kCal/kg): 25 Energy Needs - Upper Range (kCal/kg): 30 Lower Limit kCal/kg (kCals): 1,138 Upper Limit kCal/kg (kCals): 1,365 Lower Limit Protein Factor (Grams per Kg): 2.0 Upper Limit Protein Factor (Grams per Kg): 2.5 Lower Protein Needs (Protein): 91 Upper Protein Needs (Protein): 114 Dietitian Reviewed in Medical Record: Curent medications, Intake & Output, Labs , Tube feeding, Wound/DTI Diet Order: NPO Wound Care Note: 03/20 Partial thickness skin loss visualized on left inner thigh area related to moisture. Objective Comments: PMH: DM, HTN, HLD, Afib, Diastolic heart failure WISAM, PVD, CKD Stage III, GERD, chronic pancreatitis, super morbid obesity Labs include: Cr 2.11, Glu 240, POC Glu 252, 298 Meds include: Creon, Lipitor, Levemir, Fentanyl, Versed, Novolin R, Solumedrol, Vit D3 Assessment Assessment: Pt at nutritional risk r/t current clinical status and the need for a TF for nutrition support. Pt remains intubated and sedated on fentanyl and versed. Pt' s nutritional needs as assessed above using ASPEN guidelines for protein needs. TF Vital High Protein is currently running at 25 ml/hr, with goal rate 55 ml/ hr. Noted UOP, Cr level, Glucose levels. TF as recommended above will provide pt with 0.87 gms protein per kg actual body wt, which is reasonable for CKD Stg III. Pt on Novolin R and Levemir. The above TF will provide 1.10 gms carbohydrate per kg actual body wt. TF will provide a total of 1320 kcals, 116 gms protein and 1104 mls free water. Will continue to monitor TF, clinical course. Recommendations: TF: Vital High Protein with goal rate 55 ml/hr Dietitian to Monitor: Renal labs, Glucose level, Intake & Output, Tube feeding tolerance, Weight change, Wound/skin status, Medical course
--- NOTE | 2018-04-03 15:34 | P.PNID ---
Subjective Remarks: remains on biphasic 50% unable to wean any further problems with high residuals afebrile Antibiotics: avicaz flagyl Allergies/Adverse Reactions: Allergies ibuprofen Allergy (Severe, Verified 03/18/18 17:58) MESSES WITH KIDNEYS Sulfa (Sulfonamide Antibiotics) Allergy (Severe, Verified 03/18/18 17:58) HIVES egg Allergy (Intermediate, Verified 03/18/18 17:58) Very Upset Stomach milk Allergy (Unknown, Verified 03/18/18 17:58) Heartburn Objective Vital Signs 04/02/18 16:00 04/02/18 17:00 04/02/18 18:00 Temperature 98.5 F Pulse Rate 82 79 79 Respiratory Rate 20 20 19 Blood Pressure 165/69 H 168/70 H 167/72 H Pulse Oximetry 98 98 98 04/02/18 19:00 04/02/18 20:00 04/02/18 20:07 Temperature 97.6 F Pulse Rate 78 75 Respiratory Rate 19 16 16 Blood Pressure 168/68 H 168/69 H Pulse Oximetry 99 98 99 04/02/18 21:00 04/02/18 21:57 04/02/18 22:00 Temperature Pulse Rate 93 H 83 Respiratory Rate 17 19 16 Blood Pressure 167/72 H 169/70 H Pulse Oximetry 98 94 L 04/02/18 23:00 04/02/18 23:27 04/03/18 00:00 Temperature 97.4 F L Pulse Rate 80 73 Respiratory Rate 20 21 12 Blood Pressure 172/72 H 166/69 H Pulse Oximetry 96 96 99 04/03/18 00:50 04/03/18 01:00 04/03/18 02:00 Temperature Pulse Rate 79 78 Respiratory Rate 16 18 18 Blood Pressure 168/71 H 162/68 H Pulse Oximetry 97 97 04/03/18 03:00 04/03/18 04:00 04/03/18 04:34 Temperature 97.7 F Pulse Rate 78 96 H Respiratory Rate 17 16 23 Blood Pressure 155/63 H 157/67 H Pulse Oximetry 97 96 94 L 04/03/18 05:00 04/03/18 06:00 04/03/18 07:00 Temperature 98.1 F Pulse Rate 85 81 79 Respiratory Rate 15 16 Blood Pressure 174/66 H 166/64 H 159/63 H Pulse Oximetry 95 96 04/03/18 08:00 04/03/18 09:00 04/03/18 09:18 Temperature 98.1 F Pulse Rate 80 79 80 Respiratory Rate 19 20 13 Blood Pressure 161/69 H 148/59 H Pulse Oximetry 98 99 04/03/18 10:00 04/03/18 11:00 04/03/18 12:00 Temperature 98.1 F Pulse Rate 76 75 83 Respiratory Rate Blood Pressure 126/63 143/61 H 151/63 H Pulse Oximetry 98 97 96 04/03/18 12:38 04/03/18 13:00 04/03/18 14:00 Temperature Pulse Rate 93 H 84 Respiratory Rate 19 Blood Pressure 154/66 H 150/64 H Pulse Oximetry 95 98 98 Intake & Output 04/02/18 04/03/18 04/03/18 18:59 06:59 18:59 Intake Total 615 / 615 1284 / 1284 650 / 650 Output Total 2950 / 2950 3200 / 3200 Balance -2335 / -2335 -1916 / -1916 650 / 650 Weight 139.5 kg Intake: IV 450 / 450 1000 / 1000 650 / 650 Bumex Inj 25 mg In 100 ml @ 1 100 / 100 50 / 50 MG/HR 4 mls/hr IV.CONT .Q24H JACKI Rx#:[id number] DOPamine 400 MG/250 ML Premix 250 / 250 400 mg In 250 ml @ 3 MCG/KG/MIN 15.863 mls/hr IV.CONT TITRATE PRN Rx#:[id number] Heparin/D5W 25,000 U/250 mL 25, 250 / 250 000 unit In 250 ml @ 1,000 UNITS/HR 10 mls/hr IV.CONT TITRATE PRN Rx#:[id number] Versed Inj 50 mg In 50 ml @ 2 100 / 100 150 / 150 100 / 100 MG/HR 2 mls/hr IV.CONT TITRATE PRN Rx#:[id number] Cardene Inj 25 MG In NS Inj 240 500 / 500 250 / 250 ML @ 5 MG/HR 50 mls/hr IV.CONT TITRATE PRN Rx#:[id number] Avycaz Inj 0.94 GM In NS Inj 50 100 / 100 ML @ 25 mls/hr IV.SIG Q12H JACKI Rx#:[id number] fentaNYL 10 mcg/mL Premix Drip 250 / 250 2,500 mcg In 250 ml @ 50 MCG/HR 5 mls/hr IV.SIG TITRATE PRN Rx #:[id number] Tube Feeding 165 / 165 184 / 184 Water Bolus Amount 100 / 100 Output: Stool 100 / 100 100 / 100 Urine Amount (Catheter) 2850 / 2850 3100 / 3100 Indwelling Urethral Catheter 2850 / 2850 3100 / 3100 Other: Date of Last Bowel Movement 03/31/18 04/03/18 04/03/18 03/24/18 16:30 Bronchial Washings - Left Lower Lobe Fungal Smear - Final No fungal elements seen 03/24/18 16:30 Bronchial Washings - Left Lower Lobe Fungal Culture - Preliminary No growth in 1 week 03/24/18 16:30 Bronchial Washings - Left Lower Lobe Acid Fast Bacilli Smear - Final No acid fast bacilli seen 03/24/18 16:30 Bronchial Washings - Left Lower Lobe Mycobacterial Culture - Preliminary No growth in 1 week Lab - Hematology Results 04/02/18 05:00 WBC 17.0 H RBC 3.21 L Hgb 7.8 L Hct 24.0 L MCV 74.7 L MCH 24.2 L MCHC 32.4 RDW 24.0 H Plt Count 213 MPV 10.3 Lab - Chemistry Results 04/01/18 04/01/18 04/02/18 15:41 20:07 00:02 Sodium Potassium Chloride Carbon Dioxide Anion Gap BUN Creatinine Estimated GFR POC Glucose 200 H 254 H 250 H Random Glucose Calcium Magnesium 04/02/18 04/02/18 04/02/18 04:59 05:00 09:00 Sodium 136 Potassium 3.3 L Chloride 97 L Carbon Dioxide 24.5 Anion Gap 15 BUN 99 H Creatinine 2.25 H Estimated GFR 27 L POC Glucose 242 H 275 H Random Glucose 235 H Calcium 9.0 Magnesium 2.2 04/02/18 04/02/18 04/02/18 13:03 16:57 19:37 Sodium Potassium Chloride Carbon Dioxide Anion Gap BUN Creatinine Estimated GFR POC Glucose 309 H 243 H 286 H Random Glucose Calcium Magnesium 04/02/18 04/03/18 04/03/18 23:34 03:46 07:37 Sodium Potassium Chloride Carbon Dioxide Anion Gap BUN Creatinine Estimated GFR POC Glucose 241 H 244 H 252 H Random Glucose Calcium Magnesium 04/03/18 04/03/18 08:30 12:54 Sodium 134 L Potassium 3.1 L Chloride 95 L Carbon Dioxide 27.9 Anion Gap 11 BUN 100 H Creatinine 2.11 H Estimated GFR 30 L POC Glucose 298 H Random Glucose 240 H Calcium 9.3 Magnesium Imaging: ITS Impressions Head CT 03/18/18 18:46 CONCLUSION: 1. Solitary 3 mm hyperdensity in the central [place] of uncertain significance. Differential considerations include a punctate calcification and acute hemorrhage. 2. No acute findings in the supratentorial brain. Head MRI 03/19/18 00:00 CONCLUSION: 1. No evidence of brainstem hemorrhage. 2. Small foci of encephalomalacia in the left occipital lobe and right cerebellum 3. No evidence of acute infarct, hemorrhage, mass or edema. 4. No evidence of enhancing intra-axial or extra-axial lesions. Venous Doppler Study 03/19/18 00:00 CONCLUSION: The study is negative for bilateral lower extremity deep venous thrombosis. Foot X-Ray 03/22/18 00:00 CONCLUSION: No acute bony destructive change. Previous amputations as above. Fairly marked soft tissue swelling of the forefoot. Abdomen X-Ray 03/26/18 00:00 CONCLUSION: Abdomen/Pelvis CT 03/28/18 00:00 CONCLUSION: 1. Minimal increase in the trace bilateral pleural effusions with compressive atelectasis in both bases. 2. Gallstones in a benign-appearing gallbladder 3. I don't see evidence for colitis. 4. I don't see inflammatory changes in the abdomen. Chest CT 03/28/18 00:00 CONCLUSION: 1. Biventricular cardiomegaly with coarse interstitial changes in both lungs. A component of this could be failure 2. Trace bilateral pleural effusions larger on the right.. These have decreased slightly in the interval. Foot MRI 03/28/18 00:00 CONCLUSION: 1. Difficult exam to interpret because of extensive soft tissue swelling. No obvious osteomyelitis. 2. Nuclear medicine tagged white cell study may help. Chest X-Ray 04/01/18 05:00 CONCLUSION: Bilateral airspace opacities which are increased in the right lung base. Physical Exam: no acute distress, morbidly obese Head: Present: normocephalic, atraumatic, prominent facial swelling Eye: Present: improved periorbital swelling no scleral icterus ENT: Present: mucous membranes moist, oropharynx clear NECK: trachea midline LUNGs: patient mechanically ventilated, clear Cardiovascular : RRR, S1, S2 no murmurs, rubs , gallops Abdominal : soft, less distended no reaction to palpation, no audfible bowel sounds no palpable organomegaly liquid stool in rectal collection system : hernandez in place hernandez in place with small amount of clear yellow urine Extremities: edema improved, less prominent 2-3 + prominent tree bark meeks Skin : intact, dry, no rash well perfused Neurological : arousable Psychiatric : unable to assess LINE: R IJ in place - OK Assessment and Plan - Plan sp cardiac arrest Anaerobic sepsis; veillonella ? source : GI vs osteo CT and MRI diid not reveal source of her anaerobic sepsis Xrays negative, CT/MR not feasible 2/2 clincial cond'n Acute VDRF, less O2 requirement PNA, ESBL/ ? [facility] Kleb R to zerbaxa, S acvycaz and vabomere worsening CXR YOU - stable she is improving clinically Persistent leukocytosis - worse today - - cont avycaz - up the dose if GFR improves >30 - will repeat sputum clx - monitor WBC - will need coloscopy after she revoeres (hem + stool and anaerobic sepsis) jeanne RN
[2018-04-04] MEDS: Ceftazidime/Avibactam Inj 0.94 GM in Sodium Chlor 0.9% Inj 50 ML IV.SIG SCH ×2 (01:31→12:00)
[2018-04-04] MEDS: Oral Hygiene Kit OROPHARYNG SCH ×4 (01:32→17:19)
[2018-04-04] MEDS: fentaNYL 10 mcg/mL Premix Drip 2,500 MCG/250 ML BAG IV.SIG PRN ×3 (01:34→20:40)
[2018-04-04] MEDS: Insulin NovoLIN Regular Correctional Sugar Inj SQ SCH ×6 (01:52→20:44)
[2018-04-04] MEDS: Midazolam 50 MG/50 ML Inj 50 MG/50 ML BAG IV.CONT PRN ×5 (03:19→22:53)
[2018-04-04] MEDS: niCARdipine Inj 25 MG in Sodium Chlor 0.9% Inj 240 ML IV.CONT PRN ×2 (03:21→06:11)
[2018-04-04] MEDS: Heparin Drip 25,000 UNIT/250 ML BAG IV.CONT PRN (03:25)
[2018-04-04] MEDS: QUEtiapine 25 MG Tablet PO SCH ×3 (05:01→22:37)
[2018-04-04] MEDS: Hypromellose 0.3% Opth Gel 10 GM Bottle EACH EYE SCH ×3 (05:05→18:19)
[2018-04-04 05:06] LABS: Baso % (Auto) 0.2 % (0.0-2.0); Lymph # (Auto) 0.6 th/mm3 (1.0-4.8); Lymph % (Auto) 3.5 % (9.0-44.0); Mean Corpuscular HGB Conc 31.9 % (32.0-36.0); Mean Corpuscular Hemoglobin 23.8 pg (27.0-34.0); Mean Corpuscular Volume 74.6 fL (80.0-100.0); Mean Platelet Volume 9.5 fL (7.0-11.0); Mono # (Auto) 1.1 th/mm3 (0.0-0.9); Neut # (Auto) 14.4 th/mm3 (1.8-7.7); Neut % (Auto) 89.3 % (16.0-70.0); Platelet Count 193 th/mm3 (150-450); Red Blood Count 2.74 mil/mm3 (4.00-5.30); Red Cell Distribution Width 23.7 % (11.6-17.2); White Blood Count 16.1 th/mm3 (4.0-11.0)
[2018-04-04 05:16] LABS: Hematocrit 20.4 % (35.0-46.0); Hemoglobin 6.5 gm/dL (11.6-15.3)
[2018-04-04 05:34] LABS: Albumin 2.8 g/dL (3.4-5.0); Anion Gap 12 meq/L (5-15); Aspartate Aminotransferase 15 U/L (15-37); Blood Urea Nitrogen 99 mg/dL (7-18); Calcium 8.9 mg/dL (8.5-10.1); Carbon Dioxide 27.3 meq/L (21.0-32.0); Chloride 97 meq/L (98-107); Glomerular Filtration Rate 30 mL/min (>89); Glucose,Random 261 mg/dL (74-106); Sodium 136 meq/L (136-145)
[2018-04-04 05:35] LABS: Alanine Aminotransferase 19 U/L (10-53)
[2018-04-04 05:37] LABS: Alkaline Phosphatase 69 U/L (45-117); Total Protein 5.9 g/dL (6.4-8.2)
[2018-04-04] MEDS ORDERED: Sodium Chlor 0.9% Inj 250 ML IV.SIG SCH (06:00)
--- NOTE | 2018-04-04 06:05 | XR ---
EXAM DATE: 04/04/2018 4:37 AM EDT AGE/SEX: 52 years / Female INDICATIONS: Follow up respiratory failure. CLINICAL DATA: This is the patient's subsequent encounter. Patient reports that signs and symptoms h ave been present for 3 days and indicates a pain score of Nonresponsive. MEDICAL/SURGICAL HISTORY: None. None. COMPARISON: C, CHEST 1V SINGLE AP, 04/01/2018. . FINDINGS: ET tube tip 2.5 cm above the elizabeth. Gastric tube traverses the [id number]. Right central line tip projects over the mid superior vena cava. There is persistent patchy and partially consolidative inf iltrates in the mid and lower lungs bilaterally with loss of delineation of portions of both hemidiap hragms; severity of findings is similar to prior examination. Mild acinar densities in the upper lung s is also stable. CONCLUSION: Persistent partially consolidated infiltrates the mid and lower lungs bilaterally. Electronically signed by: Manish Adorno MD 04/04/2018 6:04 AM EDT
[2018-04-04] MEDS: Lipase/Protease/Amylase 24/76/120 DR Capsule PO SCH ×3 (08:21→17:01)
[2018-04-04] MEDS: metOLazone 5 MG Tablet PO SCH ×2 (08:22→20:41)
[2018-04-04] MEDS: Famotidine 20 MG Tablet PO SCH ×2 (08:23→20:43)
[2018-04-04] MEDS: amLODIPine 10 MG Tablet PO SCH (08:24)
[2018-04-04] MEDS: MethylPREDNISolone Sod Succinate Inj 40 MG/ML Vial IV.PUSH SCH (08:24)
[2018-04-04] MEDS: Insulin Detemir Inj 1,000 UNIT/10 ML Vial SQ SCH (08:25)
[2018-04-04] MEDS: Chlorhexidine 0.12% Oral Kit 15 ML UDC OROPHARYNG SCH ×2 (08:34→20:44)
[2018-04-04] MEDS: Senna/Docusate Sodium 8.6/50 MG Tablet PO SCH ×2 (10:14→20:49)
--- NOTE | 2018-04-04 12:06 | P.PNID ---
Subjective Remarks: remains on biphasic 50% unable to wean any further problems with high residuals resolved, tolerates TF @ 30 cc/hr afebrile recieving transfusion of PRBCs Antibiotics: avicaz flagyl Allergies/Adverse Reactions: Allergies ibuprofen Allergy (Severe, Verified 03/18/18 17:58) MESSES WITH KIDNEYS Sulfa (Sulfonamide Antibiotics) Allergy (Severe, Verified 03/18/18 17:58) HIVES egg Allergy (Intermediate, Verified 03/18/18 17:58) Very Upset Stomach milk Allergy (Unknown, Verified 03/18/18 17:58) Heartburn Objective Vital Signs 04/03/18 12:00 04/03/18 12:30 04/03/18 12:38 Temperature 98.1 F Pulse Rate 83 81 Respiratory Rate 14 26 H 19 Blood Pressure 162/70 H Pulse Oximetry 96 96 95 04/03/18 13:00 04/03/18 13:30 04/03/18 14:00 Temperature Pulse Rate 93 H 87 86 Respiratory Rate 18 17 27 H Blood Pressure 154/66 H 166/70 H Pulse Oximetry 98 99 98 04/03/18 14:30 04/03/18 15:00 04/03/18 15:30 Temperature Pulse Rate 81 80 80 Respiratory Rate 14 15 17 Blood Pressure 145/61 H Pulse Oximetry 97 98 99 04/03/18 16:00 04/03/18 16:30 04/03/18 16:53 Temperature Pulse Rate 77 84 Respiratory Rate 16 22 22 Blood Pressure 153/69 H Pulse Oximetry 98 97 97 04/03/18 17:00 04/03/18 17:30 04/03/18 18:00 Temperature 98.1 F Pulse Rate 93 H 87 90 Respiratory Rate 17 15 19 Blood Pressure 150/67 H 162/69 H Pulse Oximetry 97 97 97 04/03/18 18:30 04/03/18 19:00 04/03/18 19:25 Temperature Pulse Rate 84 80 Respiratory Rate 14 14 19 Blood Pressure Pulse Oximetry 97 96 98 04/03/18 19:30 04/03/18 20:00 04/03/18 20:30 Temperature 98.2 F Pulse Rate 71 69 78 Respiratory Rate 14 16 15 Blood Pressure 128/56 L Pulse Oximetry 98 98 97 04/03/18 21:00 04/03/18 21:30 04/03/18 22:00 Temperature Pulse Rate 86 82 91 H Respiratory Rate 17 19 22 Blood Pressure 163/72 H Pulse Oximetry 97 98 97 04/03/18 22:30 04/03/18 22:35 04/03/18 23:00 Temperature Pulse Rate 87 84 Respiratory Rate 15 16 15 Blood Pressure Pulse Oximetry 97 98 98 04/03/18 23:30 04/04/18 00:00 04/04/18 00:30 Temperature 98.5 F Pulse Rate 83 82 83 Respiratory Rate 16 17 19 Blood Pressure 148/62 H Pulse Oximetry 97 97 97 04/04/18 01:00 04/04/18 01:23 04/04/18 01:30 Temperature Pulse Rate 85 86 Respiratory Rate 17 24 26 H Blood Pressure Pulse Oximetry 97 97 97 04/04/18 02:00 04/04/18 02:30 04/04/18 03:00 Temperature Pulse Rate 92 H 87 80 Respiratory Rate 18 17 14 Blood Pressure 166/71 H Pulse Oximetry 97 97 97 04/04/18 03:30 04/04/18 04:00 04/04/18 04:14 Temperature Pulse Rate 72 69 Respiratory Rate 14 14 19 Blood Pressure 148/67 H Pulse Oximetry 97 96 96 04/04/18 04:30 04/04/18 05:00 04/04/18 05:05 Temperature Pulse Rate 68 74 Respiratory Rate 14 18 20 Blood Pressure Pulse Oximetry 96 95 04/04/18 05:30 04/04/18 05:45 04/04/18 06:00 Temperature Pulse Rate 94 H 84 81 Respiratory Rate 39 H 14 Blood Pressure Pulse Oximetry 98 100 04/04/18 06:04 04/04/18 06:30 04/04/18 07:00 Temperature Pulse Rate 79 74 75 Respiratory Rate 23 13 16 Blood Pressure 146/67 H Pulse Oximetry 100 99 94 L 04/04/18 07:30 04/04/18 08:00 04/04/18 08:12 Temperature 97.6 F 97.6 F Pulse Rate 76 74 97 H Respiratory Rate 19 16 17 Blood Pressure 141/58 H 139/65 Pulse Oximetry 94 L 95 95 04/04/18 08:30 04/04/18 09:00 04/04/18 09:30 Temperature 97.6 F Pulse Rate 77 75 76 Respiratory Rate 18 25 H 25 H Blood Pressure 145/60 H Pulse Oximetry 95 94 L 93 L 04/04/18 10:00 04/04/18 10:19 04/04/18 10:30 Temperature Pulse Rate 72 77 69 Respiratory Rate 17 24 16 Blood Pressure 159/69 H Pulse Oximetry 91 L 92 L 91 L 04/04/18 11:00 04/04/18 11:40 Temperature Pulse Rate 78 Respiratory Rate 32 H 18 Blood Pressure 149/65 H Pulse Oximetry 92 L 94 L Intake & Output 04/03/18 04/04/18 04/04/18 18:59 06:59 18:59 Intake Total 1553 / 1553 2379.4 / 2379.4 560.7 / 560.7 Output Total 1900 / 1900 1999 / 1999 Balance -347 / -347 379.4 / 379.4 560.7 / 560.7 Weight 140 kg Intake: IV 1250 / 1250 1816.4 / 1816.4 160.7 / 160.7 Bumex Inj 25 mg In 100 ml @ 1 50 / 50 MG/HR 4 mls/hr IV.CONT .Q24H JACKI Rx#:[id number] Heparin/D5W 25,000 U/250 mL 25, 277.1 / 277.1 000 unit In 250 ml @ 1,000 UNITS/HR 10 mls/hr IV.CONT TITRATE PRN Rx#:[id number] Versed Inj 50 mg In 50 ml @ 2 150 / 150 128.3 / 128.3 21.7 / 21.7 MG/HR 2 mls/hr IV.CONT TITRATE PRN Rx#:[id number] Cardene Inj 25 MG In NS Inj 240 750 / 750 1000 / 1000 ML @ 5 MG/HR 50 mls/hr IV.CONT TITRATE PRN Rx#:[id number] Avycaz Inj 0.94 GM In NS Inj 50 50 / 50 50 / 50 ML @ 25 mls/hr IV.SIG Q12H JACKI Rx#:[id number] fentaNYL 10 mcg/mL Premix Drip 250 / 250 361 / 361 139 / 139 2,500 mcg In 250 ml @ 50 MCG/HR 5 mls/hr IV.SIG TITRATE PRN Rx #:[id number] Tube Feeding 303 / 303 323 / 323 Water Bolus Amount 240 / 240 Intake (Blood Product) Amt 400 / 400 Rbc As-3 Leukoreduced Unit 400 / 400 [id number] Output: Stool 50 / 50 500 / 500 Urine Amount (Catheter) 1849 1500 / 1500 Indwelling Urethral Catheter 1849 1500 / 1500 Other: Date of Last Bowel Movement 04/03/18 04/04/18 Lab - Hematology Results 04/04/18 04:52 CBC w Diff Auto diff final WBC 16.1 H RBC 2.74 L Hgb 6.5 L* Hct 20.4 L* MCV 74.6 L MCH 23.8 L MCHC 31.9 L RDW 23.7 H Plt Count 193 MPV 9.5 Prelim Diff (Auto) Traffic Observer Neut % (Auto) 89.3 H Lymph % (Auto) 3.5 L [place] % (Auto) 7.0 Eos % (Auto) 0.0 Baso % (Auto) 0.2 Neut # (Auto) 14.4 H Lymph # (Auto) 0.6 L [place] # (Auto) 1.1 H Eos # (Auto) 0.0 Baso # (Auto) 0.0 WBC Differential . Differential Comment . Lab - Chemistry Results 04/02/18 04/02/18 04/02/18 13:03 16:57 19:37 Sodium Potassium Chloride Carbon Dioxide Anion Gap BUN Creatinine Estimated GFR POC Glucose 309 H 243 H 286 H Random Glucose Calcium Total Bilirubin AST ALT Alkaline Phosphatase Total Protein Albumin 04/02/18 04/03/18 04/03/18 23:34 03:46 07:37 Sodium Potassium Chloride Carbon Dioxide Anion Gap BUN Creatinine Estimated GFR POC Glucose 241 H 244 H 252 H Random Glucose Calcium Total Bilirubin AST ALT Alkaline Phosphatase Total Protein Albumin 04/03/18 04/03/18 04/03/18 08:30 12:54 16:39 Sodium 134 L Potassium 3.1 L Chloride 95 L Carbon Dioxide 27.9 Anion Gap 11 BUN 100 H Creatinine 2.11 H Estimated GFR 30 L POC Glucose 298 H 309 H Random Glucose 240 H Calcium 9.3 Total Bilirubin AST ALT Alkaline Phosphatase Total Protein Albumin 04/03/18 04/04/18 04/04/18 20:07 01:44 04:52 Sodium 136 Potassium 3.0 L Chloride 97 L Carbon Dioxide 27.3 Anion Gap 12 BUN 99 H Creatinine 2.08 H Estimated GFR 30 L POC Glucose 343 H 265 H Random Glucose 261 H Calcium 8.9 Total Bilirubin 0.5 AST 15 ALT 19 Alkaline Phosphatase 69 Total Protein 5.9 L Albumin 2.8 L 04/04/18 04/04/18 04/04/18 04:54 07:48 11:56 Sodium Potassium Chloride Carbon Dioxide Anion Gap BUN Creatinine Estimated GFR POC Glucose 268 H 255 H 211 H Random Glucose Calcium Total Bilirubin AST ALT Alkaline Phosphatase Total Protein Albumin Imaging: ITS Impressions Head CT 03/18/18 18:46 CONCLUSION: 1. Solitary 3 mm hyperdensity in the central [place] of uncertain significance. Differential considerations include a punctate calcification and acute hemorrhage. 2. No acute findings in the supratentorial brain. Head MRI 03/19/18 00:00 CONCLUSION: 1. No evidence of brainstem hemorrhage. 2. Small foci of encephalomalacia in the left occipital lobe and right cerebellum 3. No evidence of acute infarct, hemorrhage, mass or edema. 4. No evidence of enhancing intra-axial or extra-axial lesions. Venous Doppler Study 03/19/18 00:00 CONCLUSION: The study is negative for bilateral lower extremity deep venous thrombosis. Foot X-Ray 03/22/18 00:00 CONCLUSION: No acute bony destructive change. Previous amputations as above. Fairly marked soft tissue swelling of the forefoot. Abdomen X-Ray 03/26/18 00:00 CONCLUSION: Abdomen/Pelvis CT 03/28/18 00:00 CONCLUSION: 1. Minimal increase in the trace bilateral pleural effusions with compressive atelectasis in both bases. 2. Gallstones in a benign-appearing gallbladder 3. I don't see evidence for colitis. 4. I don't see inflammatory changes in the abdomen. Chest CT 03/28/18 00:00 CONCLUSION: 1. Biventricular cardiomegaly with coarse interstitial changes in both lungs. A component of this could be failure 2. Trace bilateral pleural effusions larger on the right.. These have decreased slightly in the interval. Foot MRI 03/28/18 00:00 CONCLUSION: 1. Difficult exam to interpret because of extensive soft tissue swelling. No obvious osteomyelitis. 2. Nuclear medicine tagged white cell study may help. Chest X-Ray 04/04/18 05:00 CONCLUSION: Persistent partially consolidated infiltrates the mid and lower lungs bilaterally. Physical Exam: no acute distress, morbidly obese Head: Present: normocephalic, atraumatic, prominent facial swelling Eye: Present: improved periorbital swelling no scleral icterus ENT: Present: mucous membranes moist, oropharynx clear NECK: trachea midline LUNGs: patient mechanically ventilated, clear Cardiovascular : RRR, S1, S2 no murmurs, rubs , gallops Abdominal : soft, less distended no reaction to palpation, no audfible bowel sounds no palpable organomegaly liquid stool in rectal collection system : hernandez in place hernandez in place with small amount of clear yellow urine Extremities: edema improved, less prominent 2-3 + prominent tree bark meeks Skin : intact, dry, no rash well perfused Neurological : arousable Psychiatric : unable to assess LINE: R IJ in place - OK Assessment and Plan - Plan sp cardiac arrest Anaerobic sepsis; veillonella ? source : GI vs osteo CT and MRI diid not reveal source of her anaerobic sepsis Xrays negative, CT/MR not feasible 2/2 clincial cond'n Acute VDRF, less O2 requirement PNA, ESBL/ ? [facility] Kleb R to zerbaxa, S acvycaz and vabomere worsening CXR YOU - stable she is improving clinically Persistent leukocytosis - slightly better today Anemia, new. No clincially apparent bleed - - cont avycaz - up the dose if GFR improves >30 - will repeat sputum clx - monitor WBC - will need coloscopy after she revoeres (hem + stool and anaerobic sepsis) jeanne RN
[2018-04-04 12:44] LABS: Hematocrit 24.2 % (35.0-46.0); Hemoglobin 7.8 gm/dL (11.6-15.3)
--- NOTE | 2018-04-04 13:15 | P.PNCC ---
Subjective Subjective Remarks/Hospital Course: 52-year-old female with past medical history of diabetes mellitus, hypertension, hyperlipidemia, atrial fibrillation on chronic anticoagulation with warfarin, chronic diastolic heart failure, asthma, WISAM, peripheral vascular disease, super morbid obesity. She has been at [facility] since 03/02/18. Abeba JACOBO was called due to respiratory distress. When they arrived as she was found to be in respiratory distress with sats in the 70s. She was communicating with them and reportedly said "leave me alone". She then had PEA arrest. She received CPR reportedly 10-15 minutes and received 2 doses of epinephrine. LMA was placed by EVAC. LMA was removed and she was intubated by Dr. Daly after receiving etomidate 20 mg IV and succinylcholine. She has demonstrated purposeful movements post intubation, and is now on a propofol drip. She was recently [place] [facility] [place] due to hypoglycemia, fall after isolated episode of diarrhea, hypoxia requiring HFNC. She has chronic interstitial changes on CXR. Reviewed records from [facility] which indicate she completed a 7 day course of Levaquin and has been on a prednisone taper. Current CXR shows bibasilar opacities. WBC is 16 ( previously 7.9). She has acute hypercapneic and hypoxemic respiratory failure. 03/19: Afebrile. Remains on 100% FiO2 PEEP of 12. Central has been placed for access due to multiple drips. Plan MRI brain today if respiratory status improves. Does not tolerate lying flat. Likely will need epoprostenol and rotaprone 03/20: Started on epoprostenol and currently on a rotor from bed. Currently on cisatracurium drip at 1 mcg/kg/min. Diuresing well. 03/21: Weaning down epoprostenol. Remains on cisatracurium drip at 6 mcg/kg/ min. Diuresis 6 L. Saturation was improved FiO2 down to 45%. 03/22: Hypothermic overnight. Currently euthermic. Excellent response to bumetanide drip. FiO2 down to 40%. PEEP down to 8. Possible discontinue paralytic agent today. 03/23: Resting comfortable in bed in no acute distress. Afebrile. Desaturated so placed back on rotor prone bed. Creatinine slowly increasing. 03/24: Afebrile. Worsening chest x-ray it appears to be volume overloaded again. +10 L past 24 hours. Will restart on bumetanide drip. Plan for bronchoscopy today. Switch to ceftazidime/avibactam secondary to ESBL positive Klebsiella pneumonia 03/25: FiO2 to 55%. Tolerating demanding drip with -2 L past 24 hours. Bronchoscopy results pending. Positive BM. Restarting tube feeding today 03/26: Cr continues to rise, although clinically continues to appear severely volume overloaded. fio2 70%. supine all night. off nimbex. off flolan. ID managing ESBL/MDRO/KPC Klebsiella and anaerobic bacteremia. 03/27: off rotaprone bed. multiple desat episodes overnight. on 100% fio2 and PEEP 10 this AM. good diuresis with net -2L/24h. bumex drip continues. awakens and follows commands. 03/28: not diuresing as well as yesterday. wbc uptrending. 2 more episodes of bradycardia, not associated with hypoxia. however, fio2 remains severely elevated. I increased her peep to 14. still arouses and moves all extremities. high concern for ongoing infectious etiology, but with high o2 requirements and intermittent bradycardia requiring atropine, at present too unstable for repeat imaging. 03/29: ct C/A/P without overt infectious source. does demonstrate radiographic evidence of biventricular dysfunction. bedside echo today demonstrates the same , and dilated IVC without respiratory variation. off vasopressors. required atropine for a HR of 15 once overnight. still very hypoxic: changed to APRV 5:1 , 28/0, 4/0.8. SUBJECTIVE 03/30: remains on APRV with hypoxia. multiple episodes of bradycardia and a 18 second pause yesterday. trialed on dobutamine but with multiple dysrhythmias. now on low-dose dopamine to mitigate bradycardia. adequate diuresis overnight. cxr improving slightly. still remains volume overloaded, and YOU persists. 03/31: mild improvements in fio2. remains on APRV. no more bradycardia today. still on dopamine to prevent pauses/bradycardia. YOU persists, but stable. unable to diurese yesterday and now net +2L despite fluid overload. must increase forced diuresis to improve hypoxemia. 04/01: Remains sedated, orally intubated on mechanical ventilation. Being diuresed. Started on Reglan in view of high gastric residuals and decreasing fentanyl as tolerated. 82: Remains sedated, orally intubated on APRV mode mechanical ventilation. 3: Remains sedated, orally intubated on mechanical ventilation. Awaiting family meeting with palliative care to decide goals of therapy. Being diuresed. 4: Remains sedated, orally intubated on mechanical ventilation. Switch to PRVC mode overnight. On 50% FiO2, PEEP +8. Family deciding regarding goals of therapy. Objective Vital Signs / I&O: Vital Signs 04/03/18 13:30 04/03/18 14:00 04/03/18 14:30 Temperature Pulse Rate 87 86 81 Respiratory Rate 17 27 H 14 Blood Pressure 166/70 H Pulse Oximetry 99 98 97 04/03/18 15:00 04/03/18 15:30 04/03/18 16:00 Temperature Pulse Rate 80 80 77 Respiratory Rate 15 17 16 Blood Pressure 145/61 H 153/69 H Pulse Oximetry 98 99 98 04/03/18 16:30 04/03/18 16:53 04/03/18 17:00 Temperature Pulse Rate 84 93 H Respiratory Rate 22 22 17 Blood Pressure 150/67 H Pulse Oximetry 97 97 97 04/03/18 17:30 04/03/18 18:00 04/03/18 18:30 Temperature 98.1 F Pulse Rate 87 90 84 Respiratory Rate 15 19 14 Blood Pressure 162/69 H Pulse Oximetry 97 97 97 04/03/18 19:00 04/03/18 19:25 04/03/18 19:30 Temperature Pulse Rate 80 71 Respiratory Rate 14 19 14 Blood Pressure Pulse Oximetry 96 98 98 04/03/18 20:00 04/03/18 20:30 04/03/18 21:00 Temperature 98.2 F Pulse Rate 69 78 86 Respiratory Rate 16 15 17 Blood Pressure 128/56 L Pulse Oximetry 98 97 97 04/03/18 21:30 04/03/18 22:00 04/03/18 22:30 Temperature Pulse Rate 82 91 H 87 Respiratory Rate 19 22 15 Blood Pressure 163/72 H Pulse Oximetry 98 97 97 04/03/18 22:35 04/03/18 23:00 04/03/18 23:30 Temperature Pulse Rate 84 83 Respiratory Rate 16 15 16 Blood Pressure Pulse Oximetry 98 98 97 04/04/18 00:00 04/04/18 00:30 04/04/18 01:00 Temperature 98.5 F Pulse Rate 82 83 85 Respiratory Rate 17 19 17 Blood Pressure 148/62 H Pulse Oximetry 97 97 97 04/04/18 01:23 04/04/18 01:30 04/04/18 02:00 Temperature Pulse Rate 86 92 H Respiratory Rate 24 26 H 18 Blood Pressure 166/71 H Pulse Oximetry 97 97 97 04/04/18 02:30 04/04/18 03:00 04/04/18 03:30 Temperature Pulse Rate 87 80 72 Respiratory Rate 17 14 14 Blood Pressure Pulse Oximetry 97 97 97 04/04/18 04:00 04/04/18 04:14 04/04/18 04:30 Temperature Pulse Rate 69 68 Respiratory Rate 14 19 14 Blood Pressure 148/67 H Pulse Oximetry 96 96 96 04/04/18 05:00 04/04/18 05:05 04/04/18 05:30 Temperature Pulse Rate 74 94 H Respiratory Rate 18 20 Blood Pressure Pulse Oximetry 95 98 04/04/18 05:45 04/04/18 06:00 04/04/18 06:04 Temperature Pulse Rate 84 81 79 Respiratory Rate 39 H 14 23 Blood Pressure 146/67 H Pulse Oximetry 100 100 04/04/18 06:30 04/04/18 07:00 04/04/18 07:30 Temperature Pulse Rate 74 75 76 Respiratory Rate 13 16 19 Blood Pressure Pulse Oximetry 99 94 L 94 L 04/04/18 08:00 04/04/18 08:12 04/04/18 08:30 Temperature 97.6 F 97.6 F 97.6 F Pulse Rate 74 97 H 77 Respiratory Rate 16 17 18 Blood Pressure 141/58 H 139/65 145/60 H Pulse Oximetry 95 95 95 04/04/18 09:00 04/04/18 09:30 04/04/18 10:00 Temperature Pulse Rate 75 76 72 Respiratory Rate 25 H 25 H 17 Blood Pressure Pulse Oximetry 94 L 93 L 91 L 04/04/18 10:19 04/04/18 10:30 04/04/18 11:00 Temperature Pulse Rate 77 69 78 Respiratory Rate 24 16 32 H Blood Pressure 159/69 H 149/65 H Pulse Oximetry 92 L 91 L 92 L 04/04/18 11:40 04/04/18 12:00 Temperature Pulse Rate 71 Respiratory Rate 18 Blood Pressure Pulse Oximetry 94 L Intake & Output 04/03/18 04/04/18 04/04/18 18:59 06:59 18:59 Intake Total 1553 / 1553 2379.4 / 2379.4 560.7 / 560.7 Output Total 190 / 1900 1999 Balance -347 / -347 379.4 / 379.4 560.7 / 560.7 Weight 140 kg Intake: IV 1250 / 1250 1816.4 / 1816.4 160.7 / 160.7 Bumex Inj 25 mg In 100 ml @ 1 50 / 50 MG/HR 4 mls/hr IV.CONT .Q24H [facility] Rx#:[id number] Heparin/D5W 25,000 U/250 mL 25, 277.1 / 277.1 000 unit In 250 ml @ 1,000 UNITS/HR 10 mls/hr IV.CONT TITRATE PRN Rx#:[id number] Versed Inj 50 mg In 50 ml @ 2 150 / 150 128.3 / 128.3 21.7 / 21.7 MG/HR 2 mls/hr IV.CONT TITRATE PRN Rx#:[id number] Cardene Inj 25 MG In NS Inj 240 750 / 750 1000 / 1000 ML @ 5 MG/HR 50 mls/hr IV.CONT TITRATE PRN Rx#:[id number] Avycaz Inj 0.94 GM In NS Inj 50 50 / 50 50 / 50 ML @ 25 mls/hr IV.SIG Q12H [facility] Rx#:[id number] fentaNYL 10 mcg/mL Premix Drip 250 / 250 361 / 361 139 / 139 2,500 mcg In 250 ml @ 50 MCG/HR 5 mls/hr IV.SIG TITRATE PRN Rx #:[id number] Tube Feeding 303 / 303 323 / 323 Water Bolus Amount 240 / 240 Intake (Blood Product) Amt 400 / 400 Rbc As-3 Leukoreduced Unit 400 / 400 [id number] Output: Stool 50 / 50 500 / 500 Urine Amount (Catheter) 1850 / 1850 1500 / 1500 Indwelling Urethral Catheter 1850 / 185 1500 / 1500 Other: Date of Last Bowel Movement 04/03/18 04/04/18 Result Diagrams: 04/04/18 12:15 04/04/18 04:52 Objective Remarks: GENERAL: 52-year-old female patient with an elevated BMI who is lying in bed orotracheally intubated. SKIN: Intertriginous lesion with erythema and satellite lesions under left breast. Skin breakdown over medial aspect of left ankle. HEAD: Atraumatic. Normocephalic. EYES: bilateral pupils sluggishly reactive. No scleral icterus. No injection or drainage. ENT: No nasal bleeding or discharge. Mucous membranes pink and moist. Tongue and lip/oral mucosa is swollen and edematous. NECK: Trachea midline. No JVD. CARDIOVASCULAR: RRR. sinus. RESPIRATORY: Diminished bibasilar with no appreciable rales. Scattered rhonchi bilaterally. GASTROINTESTINAL: Abdomen obese, soft, non-tender, nondistended OG in place. 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 Legs revealed 2+ pitting edema bilateral lower extremities. NEUROLOGICAL: RASS -2/-3. awakens and follows intermittent commands. moves all extremities. Assessment and Plan - Assessment and Plan Plan: Assessment: 52yF with severe ARDS and organ failure secondary to MDRO/ESBL/KPC Klebsiella and Veillonella bacteremia. remains very critically ill. does still appear to be volume overloaded combined with significant myocardial dysfunction. continue dopamine to prevent bradycardia. continue APRV mode of ventilation. continue forced diuresis. Family concerned about goals of care and if this level of care was consistent with patient's wishes. I think it is hernandez to get palliative care involved. however, it does appear that given her young age, we could successfully rehabilitate her to a functional status at least consistent with her prior functional status at her SNF, and possibly improved depending on her clinical course. Of course this would take months of rehabilitation, and will likely include trach/peg due to her severe ARDS and hypoxia. I would support aggressive measures at this point, unless it becomes clear that the patient has a strong opinion against such measures. Remains critically ill today with multiple ongoing life-threatening organ dysfunction. NEURO/PSYCH: Acute encephalopathy - secondary to hypercapnia, improving. Abnormal brain CT with 3 mm hyperdensity in central [place] Major depressive disorder NOS Chronic opioid use Encephalomalacia right cerebellum/left occipital lobe scheduled oxycodone 20mg po q4h seroquel 50mg po q8h for delirium. versed and fentanyl for goal RASS -2. Followup CT brain - . Solitary 3 mm hyperdensity in the central [place] of uncertain significance. Differential considerations include a punctate calcification and acute hemorrhage MRI brain left occipital lobe and right cerebellum. She does not meet criteria for induced therapeutic hypothermia because she is following commands post CPR. Holding nabumetone 500 mg twice daily, methocarbamol 750 mg 4 times daily and oxycodone 10 mg every 6 hours Holding gabapentin 200 mg 3 times daily Holding tizanidine 4 mg 3 times daily RESP: Acute hypercapnic and hypoxemic respiratory failure Severe ARDS Acute asthma exacerbation Healthcare associated pneumonia WISAM/OHS Prior tobacco abuse Bilateral pleural effusions right 2.2 cm. Left 1.3 cm LMA was placed in the field by EVAC. Intubated in ED 03/18 Ventilator bundle On albuterol/ipratropium aerosols every 4 hours with albuterol aerosols every 2 hours as needed for dyspnea Weaned off epoprostenol 03/23 Spontaneous breathing trials when clinically indicated. Not today. remains hypoxic on aprv. CT thorax revealed right middle lobe/lower lobe consolidation left lower lobe consolidation. Right pleural effusion 2.2 cm. Left pleural effusion 1.3 cm Methylprednisolone succinate 40 mg IV every 12 hours. Antibiotics as per below. CXR still with pulmonary edema superimposed on ARDS. wean Phigh to 24 from . stretch Thigh for goal I:E 6:1 today. repeat ABG today CT chest/abd/pelvis 03/28: biventricular enlargement, pulmonary edema. ABG and CXR in AM. CV: Hypertension Hyperlipidemia Chronic diastolic heart failure Paroxysmal atrial fibrillation on chronic anti-coagulation with warfarin Peripheral vascular disease/peripheral arterial disease Elevated troponin intermittent bradycardia Cor pulmonale biventricular dysfunction Holding home medication of clonidine 0.1 mg every 6 hours nifedipine 90 mg daily. holding carvedilol 2D echo 02/24/18ejection fraction 50%. Wall thickness upper limits of normal. Trace MR. Lactic acid cleared Continue atorvastatin 40 mg daily Doppler bilateral upper and lower extremities with subtherapeutic INR revealed no acute thrombus heparin drip. intermittent bradycardia prevents restarting home clonidine hold carvedilol prn atropine continue dopamine infusion amlodipine 10mg po daily hydralazine 100mg po q8h glycopyrrolate to 0.4mg IM q4h. continue bumex drip at 1mg/hr. continue metolazone 5mg po q12h one dose of spironolactone 25mg po today need to achieve net negative fluid balance. GI: History of GERD Chronic pancreatitis insufficiency Hypoalbuminemia vital high-protein goal 55 cc an hour per GIs recommendation Famotidine for GI prophylaxis Docusate sodium/senna 1 tablet twice daily for bowel regimen Creon home medication 3 times daily Added Reglan 10 mg IV every 8 hourly on 04/01 for high gastric residuals and decreasing fentanyl GTT as tolerated. FEN/RENAL: Acute kidney injury superimposed on CKD Chronic kidney disease stage III Hypernatremia Hypokalemia Acute severe intravascular volume overload with pulmonary edema [place] catheter was placed in the emergency department. Monitor intake and output. Monitor electrolytes and replace as indicated Free water 300 every 4 hours. Creatinine is stable, though remains elevated. Diuretic plan: bumex drip stopped 04/03 metolazone 5mg po q12h continuous albumin infusion to maintain intravascular volume. one dose of spironolactone 25mg po today. ID: Acute healthcare associated pneumonia -ESBL positive Klebsiella pneumonia Veillonella species bacteremia Metronidazole 500 every 6 hours, ceftazidime/avibactam day #4 Discontinue piperacillin/tazobactam 03/24 Discontinue 03/22 cefepime 2 g IV every 12 hours, azithromycin 500 mg daily and vancomycin Consultation to ID workup Veillonella species bacteremia Blood cultures 2 03/18 Veillonella spp. Repeat 03/20 no growth to date Sputum, ESBL positive Klebsiella pneumonia Pneumococcal urinary antigens, influenza a and B and chlamydia and mycoplasma all pending/negative HEME: Leukocytosis Chronic anemia/normocytic Chronic anti-coagulation with warfarin 4 mg daily. INR target is 2-3. Monitor CBC daily. Follow trends No indication for transfusion of blood products at this time. Discontinued heparin drip 03/22, restarted 03/26. heparin drip ENDO: Diabetes mellitus History of gout SSI q4h high scale increase levemir to 25 units SQ daily Holding glipizide 10 mg twice daily and insulin glargine/home medication Holding allopurinol 300 mg daily/home medication MSK: Elevated BMI Osteoporosis/osteoarthritis PT evaluate and treat Okay to hold cholecalciferol 5000 units daily PROPH: SCDs for DVT prophylaxis. Heparin drip ACCESS: Right IJ CVL placed 03/19. Right axillary arterial line placed 03/19: must remain today, still critically ill. Discussed at length with patient's brother at bedside. Explained to him the need for tracheostomy however patient needs to be weaned down further on mechanical ventilation prior to procedure. He tells me that patient would not want tracheostomy and shelter placement based on his previous discussions with her. He tells me that she was not doing well for the last 6 months prior to her current hospitalization. Will discuss further with palliative care team. Critical care time 35 minutes, exclusive of separately billed procedures.
[2018-04-05] MEDS: Oral Hygiene Kit OROPHARYNG SCH ×4 (00:02→16:36)
[2018-04-05] MEDS: Ceftazidime/Avibactam Inj 0.94 GM in Sodium Chlor 0.9% Inj 50 ML IV.SIG SCH ×2 (00:09→11:21)
[2018-04-05] MEDS: Insulin NovoLIN Regular Correctional Sugar Inj SQ SCH ×6 (00:17→20:13)
[2018-04-05] MEDS: Midazolam 50 MG/50 ML Inj 50 MG/50 ML BAG IV.CONT PRN ×5 (03:57→21:14)
[2018-04-05] MEDS: Hypromellose 0.3% Opth Gel 10 GM Bottle EACH EYE SCH ×3 (04:06→18:28)
[2018-04-05] MEDS: QUEtiapine 25 MG Tablet PO SCH ×3 (05:46→21:13)
[2018-04-05] MEDS: fentaNYL 10 mcg/mL Premix Drip 2,500 MCG/250 ML BAG IV.SIG PRN ×2 (06:16→16:30)
[2018-04-05 06:26] LABS: Baso % (Auto) 0.1 % (0.0-2.0); Hemoglobin 8.3 gm/dL (11.6-15.3); Lymph # (Auto) 0.4 th/mm3 (1.0-4.8); Lymph % (Auto) 2.7 % (9.0-44.0); Mean Corpuscular Hemoglobin 25.9 pg (27.0-34.0); Mean Corpuscular Volume 78.4 fL (80.0-100.0); Mean Platelet Volume 10.6 fL (7.0-11.0); Neut # (Auto) 14.9 th/mm3 (1.8-7.7); Neut % (Auto) 91.2 % (16.0-70.0); Platelet Count 173 th/mm3 (150-450); Red Blood Count 3.19 mil/mm3 (4.00-5.30); Red Cell Distribution Width 22.8 % (11.6-17.2); White Blood Count 16.4 th/mm3 (4.0-11.0)
[2018-04-05 06:49] LABS: Albumin 2.7 g/dL (3.4-5.0); Anion Gap 9 meq/L (5-15); Aspartate Aminotransferase 27 U/L (15-37); Blood Urea Nitrogen 107 mg/dL (7-18); Chloride 98 meq/L (98-107); Glomerular Filtration Rate 31 mL/min (>89); Glucose,Random 266 mg/dL (74-106); Potassium 3.1 meq/L (3.5-5.1); Sodium 138 meq/L (136-145)
[2018-04-05 06:53] LABS: Alanine Aminotransferase 26 U/L (10-53); Alkaline Phosphatase 68 U/L (45-117); Total Protein 5.5 g/dL (6.4-8.2)
[2018-04-05] MEDS: Senna/Docusate Sodium 8.6/50 MG Tablet PO SCH ×2 (08:26→20:15)
[2018-04-05] MEDS: Insulin Detemir Inj 1,000 UNIT/10 ML Vial SQ SCH (08:30)
[2018-04-05] MEDS: Famotidine 20 MG Tablet PO SCH ×2 (08:30→20:14)
[2018-04-05] MEDS: amLODIPine 10 MG Tablet PO SCH (08:30)
[2018-04-05] MEDS: Chlorhexidine 0.12% Oral Kit 15 ML UDC OROPHARYNG SCH ×2 (08:30→20:14)
[2018-04-05] MEDS: Lipase/Protease/Amylase 24/76/120 DR Capsule PO SCH ×3 (08:45→17:01)
[2018-04-05] MEDS: metOLazone 5 MG Tablet PO SCH ×2 (08:45→20:14)
[2018-04-05] MEDS: MethylPREDNISolone Sod Succinate Inj 40 MG/ML Vial IV.PUSH SCH (08:46)
[2018-04-05] MEDS: Potassium Chloride 25 MEQ Effervescent Tablet PO SCH (08:54)
--- NOTE | 2018-04-05 10:35 | P.PNCC ---
Subjective Subjective Remarks/Hospital Course: 52-year-old female with past medical history of diabetes mellitus, hypertension, hyperlipidemia, atrial fibrillation on chronic anticoagulation with warfarin, chronic diastolic heart failure, asthma, WISAM, peripheral vascular disease, super morbid obesity. She has been at [facility] since 03/02/18. Abeba JACOBO was called due to respiratory distress. When they arrived as she was found to be in respiratory distress with sats in the 70s. She was communicating with them and reportedly said "leave me alone". She then had PEA arrest. She received CPR reportedly 10-15 minutes and received 2 doses of epinephrine. LMA was placed by EVAC. LMA was removed and she was intubated by Dr. Daly after receiving etomidate 20 mg IV and succinylcholine. She has demonstrated purposeful movements post intubation, and is now on a propofol drip. She was recently admitted to [facility] 02/24-03/02 due to hypoglycemia, fall after isolated episode of diarrhea, hypoxia requiring HFNC. She has chronic interstitial changes on CXR. Reviewed records from [facility] which indicate she completed a 7 day course of Levaquin and has been on a prednisone taper. Current CXR shows bibasilar opacities. WBC is 16 ( previously 7.9). She has acute hypercapneic and hypoxemic respiratory failure. 03/19: Afebrile. Remains on 100% FiO2 PEEP of 12. Central has been placed for access due to multiple drips. Plan MRI brain today if respiratory status improves. Does not tolerate lying flat. Likely will need epoprostenol and rotaprone 03/20: Started on epoprostenol and currently on a rotor from bed. Currently on cisatracurium drip at 1 mcg/kg/min. Diuresing well. 03/21: Weaning down epoprostenol. Remains on cisatracurium drip at 6 mcg/kg/ min. Diuresis 6 L. Saturation was improved FiO2 down to 45%. 03/22: Hypothermic overnight. Currently euthermic. Excellent response to bumetanide drip. FiO2 down to 40%. PEEP down to 8. Possible discontinue paralytic agent today. 03/23: Resting comfortable in bed in no acute distress. Afebrile. Desaturated so placed back on rotor prone bed. Creatinine slowly increasing. 03/24: Afebrile. Worsening chest x-ray it appears to be volume overloaded again. +10 L past 24 hours. Will restart on bumetanide drip. Plan for bronchoscopy today. Switch to ceftazidime/avibactam secondary to ESBL positive Klebsiella pneumonia 03/25: FiO2 to 55%. Tolerating demanding drip with -2 L past 24 hours. Bronchoscopy results pending. Positive BM. Restarting tube feeding today 03/26: Cr continues to rise, although clinically continues to appear severely volume overloaded. fio2 70%. supine all night. off nimbex. off flolan. ID managing ESBL/MDRO/KPC Klebsiella and anaerobic bacteremia. 03/27: off rotaprone bed. multiple desat episodes overnight. on 100% fio2 and PEEP 10 this AM. good diuresis with net -2L/24h. bumex drip continues. awakens and follows commands. 03/28: not diuresing as well as yesterday. wbc uptrending. 2 more episodes of bradycardia, not associated with hypoxia. however, fio2 remains severely elevated. I increased her peep to 14. still arouses and moves all extremities. high concern for ongoing infectious etiology, but with high o2 requirements and intermittent bradycardia requiring atropine, at present too unstable for repeat imaging. 03/29: ct C/A/P without overt infectious source. does demonstrate radiographic evidence of biventricular dysfunction. bedside echo today demonstrates the same , and dilated IVC without respiratory variation. off vasopressors. required atropine for a HR of 15 once overnight. still very hypoxic: changed to APRV 5:1 , 28/0, 4/0.8. SUBJECTIVE 03/30: remains on APRV with hypoxia. multiple episodes of bradycardia and a 18 second pause yesterday. trialed on dobutamine but with multiple dysrhythmias. now on low-dose dopamine to mitigate bradycardia. adequate diuresis overnight. cxr improving slightly. still remains volume overloaded, and YOU persists. 03/31: mild improvements in fio2. remains on APRV. no more bradycardia today. still on dopamine to prevent pauses/bradycardia. YOU persists, but stable. unable to diurese yesterday and now net +2L despite fluid overload. must increase forced diuresis to improve hypoxemia. 04/01: Remains sedated, orally intubated on mechanical ventilation. Being diuresed. Started on Reglan in view of high gastric residuals and decreasing fentanyl as tolerated. 82: Remains sedated, orally intubated on APRV mode mechanical ventilation. 3: Remains sedated, orally intubated on mechanical ventilation. Awaiting family meeting with palliative care to decide goals of therapy. Being diuresed. 4: Remains sedated, orally intubated on mechanical ventilation. Switch to PRVC mode overnight. On 50% FiO2, PEEP +8. Family deciding regarding goals of therapy. 04/05: Remains sedated, orally intubated on mechanical ventilation. PEEP increased to +10 overnight due to hypoxia. Objective Vital Signs / I&O: Vital Signs 04/04/18 10:30 04/04/18 11:00 04/04/18 11:30 Temperature Pulse Rate 69 78 77 Respiratory Rate 16 32 H 22 Blood Pressure 149/65 H Pulse Oximetry 91 L 92 L 93 L 04/04/18 11:40 04/04/18 12:00 04/04/18 12:30 Temperature Pulse Rate 75 63 Respiratory Rate 18 25 H 20 Blood Pressure 165/72 H Pulse Oximetry 94 L 92 L 94 L 04/04/18 13:00 04/04/18 13:30 04/04/18 13:56 Temperature 97.1 F L Pulse Rate 71 80 73 Respiratory Rate 23 23 16 Blood Pressure 169/76 H Pulse Oximetry 92 L 91 L 96 04/04/18 14:00 04/04/18 14:12 04/04/18 14:19 Temperature 96.8 F L Pulse Rate 75 82 Respiratory Rate 24 16 16 Blood Pressure 188/81 H 123/59 L Pulse Oximetry 94 L 94 L 04/04/18 14:30 04/04/18 15:00 04/04/18 15:22 Temperature 96.8 F L Pulse Rate 61 64 Respiratory Rate 16 16 16 Blood Pressure 127/53 L Pulse Oximetry 94 L 94 L 96 04/04/18 15:30 04/04/18 16:00 04/04/18 16:01 Temperature 96.8 F L 98.6 F Pulse Rate 68 78 75 Respiratory Rate 16 20 20 Blood Pressure 152/65 H 164/68 H Pulse Oximetry 95 93 L 94 L 04/04/18 16:30 04/04/18 17:00 04/04/18 17:30 Temperature Pulse Rate 63 69 64 Respiratory Rate 16 16 16 Blood Pressure 124/53 L Pulse Oximetry 94 L 94 L 92 L 04/04/18 18:00 04/04/18 18:01 04/04/18 18:09 Temperature Pulse Rate 62 50 L 62 Respiratory Rate 15 16 16 Blood Pressure 145/65 H Pulse Oximetry 90 L 94 L 04/04/18 18:30 04/04/18 19:00 04/04/18 19:30 Temperature Pulse Rate 58 L 59 L 59 L Respiratory Rate 16 16 16 Blood Pressure Pulse Oximetry 94 L 94 L 94 L 04/04/18 19:45 04/04/18 20:00 04/04/18 20:11 Temperature 97.8 F Pulse Rate 58 L 73 Respiratory Rate 17 16 18 Blood Pressure 138/62 Pulse Oximetry 94 L 94 L 04/04/18 20:30 04/04/18 21:00 04/04/18 21:30 Temperature Pulse Rate 78 71 74 Respiratory Rate 19 17 17 Blood Pressure Pulse Oximetry 95 95 96 04/04/18 22:00 04/04/18 22:01 04/04/18 22:04 Temperature Pulse Rate 73 77 Respiratory Rate 21 16 16 Blood Pressure 190/84 H Pulse Oximetry 95 96 95 04/04/18 22:30 04/04/18 23:00 04/04/18 23:30 Temperature Pulse Rate 70 76 76 Respiratory Rate 17 16 16 Blood Pressure Pulse Oximetry 96 97 97 04/05/18 00:00 04/05/18 00:01 04/05/18 00:06 Temperature Pulse Rate 72 73 74 Respiratory Rate 17 18 19 Blood Pressure 166/66 H 201/78 H 210/83 H Pulse Oximetry 95 94 L 92 L 04/05/18 00:30 04/05/18 01:00 04/05/18 01:05 Temperature Pulse Rate 79 74 Respiratory Rate 18 18 16 Blood Pressure Pulse Oximetry 96 96 96 04/05/18 01:30 04/05/18 02:00 04/05/18 02:01 Temperature Pulse Rate 72 64 64 Respiratory Rate 19 17 17 Blood Pressure 168/72 H Pulse Oximetry 95 93 L 95 04/05/18 02:30 04/05/18 03:00 04/05/18 03:30 Temperature Pulse Rate 61 64 63 Respiratory Rate 16 24 16 Blood Pressure Pulse Oximetry 96 94 L 95 04/05/18 04:00 04/05/18 04:01 04/05/18 04:14 Temperature 97.8 F Pulse Rate 72 61 60 Respiratory Rate 16 16 16 Blood Pressure 121/51 L 133/60 Pulse Oximetry 93 L 95 95 04/05/18 04:30 04/05/18 05:00 04/05/18 05:30 Temperature Pulse Rate 61 64 63 Respiratory Rate 16 16 16 Blood Pressure Pulse Oximetry 91 L 92 L 93 L 04/05/18 06:00 04/05/18 06:01 04/05/18 06:30 Temperature Pulse Rate 84 83 69 Respiratory Rate 21 20 16 Blood Pressure 201/81 H Pulse Oximetry 90 L 91 L 93 L 04/05/18 07:00 04/05/18 07:30 04/05/18 08:00 Temperature Pulse Rate 65 67 78 Respiratory Rate 16 16 22 Blood Pressure Pulse Oximetry 92 L 91 L 92 L 04/05/18 08:01 04/05/18 08:30 04/05/18 09:00 Temperature 96.9 F L Pulse Rate 73 73 74 Respiratory Rate 29 H 16 24 Blood Pressure 159/63 H Pulse Oximetry 92 L 92 L 92 L 04/05/18 09:30 04/05/18 10:00 04/05/18 10:01 Temperature Pulse Rate 75 68 80 Respiratory Rate 22 16 16 Blood Pressure 157/70 H Pulse Oximetry 92 L 91 L 93 L Intake & Output 04/04/18 04/05/18 04/05/18 18:59 06:59 18:59 Intake Total 3563.7 / 3563.7 1143.6 / 1143.6 34.1 / 34.1 Output Total 1850 / 1850 1850 / 1850 Balance 1713.7 / 1713.7 -706.4 / -706.4 34.1 / 34.1 Weight 141 kg Intake: IV 1476.7 / 1476.7 526.6 / 526.6 34.1 / 34.1 DOPamine 400 MG/250 ML Premix 0 / 0 400 mg In 250 ml @ 3 MCG/KG/MIN 15.863 mls/hr IV.CONT TITRATE PRN Rx#:[id number] Heparin/D5W 25,000 U/250 mL 25, 16 / 16 000 unit In 250 ml @ 1,000 UNITS/HR 10 mls/hr IV.CONT TITRATE PRN Rx#:[id number] Versed Inj 50 mg In 50 ml @ 2 121.7 / 121.7 87.6 / 87.6 34.1 / 34.1 MG/HR 2 mls/hr IV.CONT TITRATE PRN Rx#:[id number] Cardene Inj 25 MG In NS Inj 240 150 / 150 ML @ 5 MG/HR 50 mls/hr IV.CONT TITRATE PRN Rx#:[id number] Avycaz Inj 0.94 GM In NS Inj 50 50 / 50 50 / 50 ML @ 25 mls/hr IV.SIG Q12H JACKI Rx#:[id number] fentaNYL 10 mcg/mL Premix Drip 139 / 139 389 / 389 2,500 mcg In 250 ml @ 50 MCG/HR 5 mls/hr IV.SIG TITRATE PRN Rx #:[id number] NS Inj 1,000 ML @ 10 mls/hr 1000 / 1000 OTHER .Q24H JACKI Rx#:[id number] Tube Feeding 337 / 337 377 / 377 Water Bolus Amount 150 / 150 240 / 240 Intake (Blood Product) Amt 800 / 800 Rbc As-3 Leukoreduced Unit 400 / 400 [id number] Rbc As-3 Leukoreduced Unit 400 / 400 [id number] Mass Transfusion Protocol 800 / 800 Output: Stool 150 / 150 Urine Amount (Catheter) 1850 / 1850 1700 / 1700 Indwelling Urethral Catheter 1850 / 1850 1700 / 1700 Other: Date of Last Bowel Movement 04/04/18 04/05/18 Result Diagrams: 04/05/18 04:07 04/05/18 04:07 Imaging: Impressions Chest X-Ray 04/04/18 05:00 CONCLUSION: Persistent partially consolidated infiltrates the mid and lower lungs bilaterally. Objective Remarks: GENERAL: 52-year-old female patient with an elevated BMI who is lying in bed orotracheally intubated. SKIN: Intertriginous lesion with erythema and satellite lesions under left breast. Skin breakdown over medial aspect of left ankle. HEAD: Atraumatic. Normocephalic. EYES: bilateral pupils sluggishly reactive. No scleral icterus. No injection or drainage. ENT: No nasal bleeding or discharge. Mucous membranes pink and moist. Tongue and lip/oral mucosa is swollen and edematous. NECK: Trachea midline. No JVD. CARDIOVASCULAR: RRR. sinus. RESPIRATORY: Diminished bibasilar with no appreciable rales. Scattered rhonchi bilaterally. GASTROINTESTINAL: Abdomen obese, soft, non-tender, nondistended OG in place. 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 Legs revealed 2+ pitting edema bilateral lower extremities. NEUROLOGICAL: RASS -2/-3. awakens and follows intermittent commands. moves all extremities. Assessment and Plan - Assessment and Plan Plan: Assessment: 52yF with severe ARDS and organ failure secondary to MDRO/ESBL/KPC Klebsiella and Veillonella bacteremia. remains very critically ill. does still appear to be volume overloaded combined with significant myocardial dysfunction. continue dopamine to prevent bradycardia. continue APRV mode of ventilation. continue forced diuresis. Family concerned about goals of care and if this level of care was consistent with patient's wishes. I think it is hernandez to get palliative care involved. however, it does appear that given her young age, we could successfully rehabilitate her to a functional status at least consistent with her prior functional status at her SNF, and possibly improved depending on her clinical course. Of course this would take months of rehabilitation, and will likely include trach/peg due to her severe ARDS and hypoxia. I would support aggressive measures at this point, unless it becomes clear that the patient has a strong opinion against such measures. Remains critically ill today with multiple ongoing life-threatening organ dysfunction. NEURO/PSYCH: Acute encephalopathy - secondary to hypercapnia, improving. Abnormal brain CT with 3 mm hyperdensity in central [place] Major depressive disorder NOS Chronic opioid use Encephalomalacia right cerebellum/left occipital lobe scheduled oxycodone 20mg po q4h seroquel 50mg po q8h for delirium. versed and fentanyl for goal RASS -2. Followup CT brain - . Solitary 3 mm hyperdensity in the central [place] of uncertain significance. Differential considerations include a punctate calcification and acute hemorrhage MRI brain left occipital lobe and right cerebellum. She does not meet criteria for induced therapeutic hypothermia because she is following commands post CPR. Holding nabumetone 500 mg twice daily, methocarbamol 750 mg 4 times daily and oxycodone 10 mg every 6 hours Holding gabapentin 200 mg 3 times daily Holding tizanidine 4 mg 3 times daily RESP: Acute hypercapnic and hypoxemic respiratory failure Severe ARDS Acute asthma exacerbation Healthcare associated pneumonia WISAM/OHS Prior tobacco abuse Bilateral pleural effusions right 2.2 cm. Left 1.3 cm LMA was placed in the field by EVAC. Intubated in ED 03/18 Ventilator bundle On albuterol/ipratropium aerosols every 4 hours with albuterol aerosols every 2 hours as needed for dyspnea Weaned off epoprostenol 03/23 Spontaneous breathing trials when clinically indicated. Not today. remains hypoxic on aprv. CT thorax revealed right middle lobe/lower lobe consolidation left lower lobe consolidation. Right pleural effusion 2.2 cm. Left pleural effusion 1.3 cm Methylprednisolone succinate 40 mg IV every 12 hours. Antibiotics as per below. CXR still with pulmonary edema superimposed on ARDS. wean Phigh to 24 from . stretch Thigh for goal I:E 6:1 today. repeat ABG today CT chest/abd/pelvis 03/28: biventricular enlargement, pulmonary edema. ABG and CXR in AM. CV: Hypertension Hyperlipidemia Chronic diastolic heart failure Paroxysmal atrial fibrillation on chronic anti-coagulation with warfarin Peripheral vascular disease/peripheral arterial disease Elevated troponin intermittent bradycardia Cor pulmonale biventricular dysfunction Holding home medication of clonidine 0.1 mg every 6 hours nifedipine 90 mg daily. holding carvedilol 2D echo 02/24/18ejection fraction 50%. Wall thickness upper limits of normal. Trace MR. Lactic acid cleared Continue atorvastatin 40 mg daily Doppler bilateral upper and lower extremities with subtherapeutic INR revealed no acute thrombus heparin drip. intermittent bradycardia prevents restarting home clonidine hold carvedilol prn atropine continue dopamine infusion amlodipine 10mg po daily hydralazine 100mg po q8h glycopyrrolate to 0.4mg IM q4h. continue bumex drip at 1mg/hr. continue metolazone 5mg po q12h one dose of spironolactone 25mg po today need to achieve net negative fluid balance. GI: History of GERD Chronic pancreatitis insufficiency Hypoalbuminemia vital high-protein goal 55 cc an hour per GIs recommendation Famotidine for GI prophylaxis Docusate sodium/senna 1 tablet twice daily for bowel regimen Creon home medication 3 times daily Added Reglan 10 mg IV every 8 hourly on 04/01 for high gastric residuals and decreasing fentanyl GTT as tolerated. FEN/RENAL: Acute kidney injury superimposed on CKD Chronic kidney disease stage III Hypernatremia Hypokalemia Acute severe intravascular volume overload with pulmonary edema [place] catheter was placed in the emergency department. Monitor intake and output. Monitor electrolytes and replace as indicated Creatinine is stable, though remains elevated. Diuretic plan: bumex drip stopped 04/03 metolazone 5mg po q12h continuous albumin infusion to maintain intravascular volume. ID: Acute healthcare associated pneumonia -ESBL positive Klebsiella pneumonia Veillonella species bacteremia Metronidazole 500 every 6 hours, ceftazidime/avibactam day #4 Discontinue piperacillin/tazobactam 03/24 Discontinue 03/22 cefepime 2 g IV every 12 hours, azithromycin 500 mg daily and vancomycin Consultation to ID workup Veillonella species bacteremia Blood cultures 2 03/18 Veillonella spp. Repeat 03/20 no growth to date Sputum, ESBL positive Klebsiella pneumonia Pneumococcal urinary antigens, influenza a and B and chlamydia and mycoplasma all pending/negative HEME: Leukocytosis Chronic anemia/normocytic Chronic anti-coagulation with warfarin 4 mg daily. INR target is 2-3. Monitor CBC daily. Follow trends No indication for transfusion of blood products at this time. Discontinued heparin drip 03/22, restarted 03/26. heparin drip ENDO: Diabetes mellitus History of gout SSI q4h high scale increase levemir to 25 units SQ daily Holding glipizide 10 mg twice daily and insulin glargine/home medication Holding allopurinol 300 mg daily/home medication MSK: Elevated BMI Osteoporosis/osteoarthritis PT evaluate and treat Okay to hold cholecalciferol 5000 units daily PROPH: SCDs for DVT prophylaxis. Heparin drip ACCESS: Right IJ CVL placed 03/19. Right axillary arterial line placed 03/19: must remain today, still critically ill. Discussed at length with patient's brother at bedside. Explained to him the need for tracheostomy however patient needs to be weaned down further on mechanical ventilation prior to procedure. He tells me that patient would not want tracheostomy and group home placement based on his previous discussions with her. He tells me that she was not doing well for the last 6 months prior to her current hospitalization. Will discuss further with palliative care team. Critical care time 35 minutes, exclusive of separately billed procedures.
[2018-04-05 15:55] LABS: ABG Base Excess 1.7 mmol/L (-2-2); ABG PCO2 44 mmHg (38-42); ABG PO2 51 mmHG (61-120)
--- NOTE | 2018-04-05 16:30 | XR ---
EXAM DATE: 04/05/2018 4:25 PM EDT AGE/SEX: 52 years / Female INDICATIONS: Respiratory disease CLINICAL DATA: This is the patient's subsequent encounter. Patient reports that signs and symptoms h ave been present for 1 month and indicates a pain score of Nonresponsive. MEDICAL/SURGICAL HISTORY: Non-responsive. Non-responsive. COMPARISON: [facility], CHEST 1V SINGLE AP, 04/04/2018. . FINDINGS: Endotracheal tube in good position. NG enters stomach. Bilateral mostly basilar airspace disease and small effusions. No pneumothorax. Right central line in superior vena cava. CONCLUSION: Bilateral airspace disease has worsened slightly since April 04. Endotracheal tube, nasogastric tube and right central line unchanged. Electronically signed by: Travis Bellamy MD 04/05/2018 4:29 PM EDT
[2018-04-05] MEDS: Ceftazidime/Avibactam Inj 1.25 GM in Sodium Chlor 0.9% Inj 50 ML IV.SIG SCH (16:31)
[2018-04-05] MEDS ORDERED: Insulin Detemir Inj 1,000 UNIT/10 ML Vial SQ SCH (19:00)
[2018-04-06] MEDS: Ceftazidime/Avibactam Inj 1.25 GM in Sodium Chlor 0.9% Inj 50 ML IV.SIG SCH ×3 (00:15→20:30)
[2018-04-06] MEDS: Insulin NovoLIN Regular Correctional Sugar Inj SQ SCH ×6 (00:15→21:03)
[2018-04-06] MEDS: Oral Hygiene Kit OROPHARYNG SCH ×3 (00:16→20:09)
[2018-04-06] MEDS: fentaNYL 10 mcg/mL Premix Drip 2,500 MCG/250 ML BAG IV.SIG PRN ×2 (02:14→14:55)
[2018-04-06] MEDS: Midazolam 50 MG/50 ML Inj 50 MG/50 ML BAG IV.CONT PRN ×5 (02:15→20:14)
[2018-04-06] MEDS: Hypromellose 0.3% Opth Gel 10 GM Bottle EACH EYE SCH ×3 (02:16→19:03)
[2018-04-06 05:27] LABS: Baso % (Auto) 0.2 % (0.0-2.0); Hematocrit 27.9 % (35.0-46.0); Hemoglobin 9.2 gm/dL (11.6-15.3); Lymph # (Auto) 0.7 th/mm3 (1.0-4.8); Lymph % (Auto) 3.7 % (9.0-44.0); Mean Corpuscular HGB Conc 33.1 % (32.0-36.0); Mean Corpuscular Hemoglobin 25.6 pg (27.0-34.0); Mean Corpuscular Volume 77.5 fL (80.0-100.0); Mean Platelet Volume 10.4 fL (7.0-11.0); Mono # (Auto) 1.5 th/mm3 (0.0-0.9); Mono % (Auto) 7.5 % (0.0-8.0); Neut # (Auto) 17.9 th/mm3 (1.8-7.7); Neut % (Auto) 88.6 % (16.0-70.0); Platelet Count 222 th/mm3 (150-450); Red Cell Distribution Width 23.5 % (11.6-17.2); White Blood Count 20.2 th/mm3 (4.0-11.0)
[2018-04-06] MEDS: QUEtiapine 25 MG Tablet PO SCH ×3 (05:35→21:05)
[2018-04-06 05:55] LABS: Alanine Aminotransferase 67 U/L (10-53); Alkaline Phosphatase 89 U/L (45-117); Anion Gap 9 meq/L (5-15); Aspartate Aminotransferase 59 U/L (15-37); Blood Urea Nitrogen 110 mg/dL (7-18); Calcium 9.3 mg/dL (8.5-10.1); Carbon Dioxide 29.8 meq/L (21.0-32.0); Chloride 97 meq/L (98-107); Glomerular Filtration Rate 30 mL/min (>89); Glucose,Random 281 mg/dL (74-106); Potassium 3.7 meq/L (3.5-5.1); Sodium 136 meq/L (136-145); Total Protein 6.3 g/dL (6.4-8.2)
[2018-04-06] MEDS: amLODIPine 10 MG Tablet PO SCH (08:48)
[2018-04-06] MEDS: Famotidine 20 MG Tablet PO SCH ×2 (08:48→20:12)
[2018-04-06] MEDS: Senna/Docusate Sodium 8.6/50 MG Tablet PO SCH ×2 (08:49→20:12)
[2018-04-06] MEDS: metOLazone 5 MG Tablet PO SCH ×2 (08:49→20:11)
[2018-04-06] MEDS: MethylPREDNISolone Sod Succinate Inj 40 MG/ML Vial IV.PUSH SCH (08:50)
[2018-04-06] MEDS: Lipase/Protease/Amylase 24/76/120 DR Capsule PO SCH ×3 (08:51→17:16)
[2018-04-06] MEDS: Chlorhexidine 0.12% Oral Kit 15 ML UDC OROPHARYNG SCH ×2 (08:56→20:11)
[2018-04-06] MEDS: Insulin Detemir Inj 1,000 UNIT/10 ML Vial SQ SCH (09:06)
--- NOTE | 2018-04-06 12:27 | P.PNCC ---
Subjective Subjective Remarks/Hospital Course: 52-year-old female with past medical history of diabetes mellitus, hypertension, hyperlipidemia, atrial fibrillation on chronic anticoagulation with warfarin, chronic diastolic heart failure, asthma, WISAM, peripheral vascular disease, super morbid obesity. She has been at [facility] since 03/02/18. Abeba JACOBO was called due to respiratory distress. When they arrived as she was found to be in respiratory distress with sats in the 70s. She was communicating with them and reportedly said "leave me alone". She then had PEA arrest. She received CPR reportedly 10-15 minutes and received 2 doses of epinephrine. LMA was placed by EVAC. LMA was removed and she was intubated by Dr. Daly after receiving etomidate 20 mg IV and succinylcholine. She has demonstrated purposeful movements post intubation, and is now on a propofol drip. She was [place] [facility] [place] due to hypoglycemia, fall after isolated episode of diarrhea, hypoxia requiring HFNC. She has chronic interstitial changes on CXR. Reviewed records from [facility] which indicate she completed a 7 day course of Levaquin and has been on a prednisone taper. Current CXR shows bibasilar opacities. WBC is 16 ( previously 7.9). She has acute hypercapneic and hypoxemic respiratory failure. 03/19: Afebrile. Remains on 100% FiO2 PEEP of 12. Central has been placed for access due to multiple drips. Plan MRI brain today if respiratory status improves. Does not tolerate lying flat. Likely will need epoprostenol and rotaprone 03/20: Started on epoprostenol and currently on a rotor from bed. Currently on cisatracurium drip at 1 mcg/kg/min. Diuresing well. 03/21: Weaning down epoprostenol. Remains on cisatracurium drip at 6 mcg/kg/ min. Diuresis 6 L. Saturation was improved FiO2 down to 45%. 03/22: Hypothermic overnight. Currently euthermic. Excellent response to bumetanide drip. FiO2 down to 40%. PEEP down to 8. Possible discontinue paralytic agent today. 03/23: Resting comfortable in bed in no acute distress. Afebrile. Desaturated so placed back on rotor prone bed. Creatinine slowly increasing. 03/24: Afebrile. Worsening chest x-ray it appears to be volume overloaded again. +10 L past 24 hours. Will restart on bumetanide drip. Plan for bronchoscopy today. Switch to ceftazidime/avibactam secondary to ESBL positive Klebsiella pneumonia 03/25: FiO2 to 55%. Tolerating demanding drip with -2 L past 24 hours. Bronchoscopy results pending. Positive BM. Restarting tube feeding today 03/26: Cr continues to rise, although clinically continues to appear severely volume overloaded. fio2 70%. supine all night. off nimbex. off flolan. ID managing ESBL/MDRO/KPC Klebsiella and anaerobic bacteremia. 03/27: off rotaprone bed. multiple desat episodes overnight. on 100% fio2 and PEEP 10 this AM. good diuresis with net -2L/24h. bumex drip continues. awakens and follows commands. 03/28: not diuresing as well as yesterday. wbc uptrending. 2 more episodes of bradycardia, not associated with hypoxia. however, fio2 remains severely elevated. I increased her peep to 14. still arouses and moves all extremities. high concern for ongoing infectious etiology, but with high o2 requirements and intermittent bradycardia requiring atropine, at present too unstable for repeat imaging. 03/29: ct C/A/P without overt infectious source. does demonstrate radiographic evidence of biventricular dysfunction. bedside echo today demonstrates the same , and dilated IVC without respiratory variation. off vasopressors. required atropine for a HR of 15 once overnight. still very hypoxic: changed to APRV 5:1 , 28/0, 4/0.8. SUBJECTIVE 03/30: remains on APRV with hypoxia. multiple episodes of bradycardia and a 18 second pause yesterday. trialed on dobutamine but with multiple dysrhythmias. now on low-dose dopamine to mitigate bradycardia. adequate diuresis overnight. cxr improving slightly. still remains volume overloaded, and YOU persists. 03/31: mild improvements in fio2. remains on APRV. no more bradycardia today. still on dopamine to prevent pauses/bradycardia. YOU persists, but stable. unable to diurese yesterday and now net +2L despite fluid overload. must increase forced diuresis to improve hypoxemia. 04/01: Remains sedated, orally intubated on mechanical ventilation. Being diuresed. Started on Reglan in view of high gastric residuals and decreasing fentanyl as tolerated. 2: Remains sedated, orally intubated on APRV mode mechanical ventilation. 3: Remains sedated, orally intubated on mechanical ventilation. Awaiting family meeting with palliative care to decide goals of therapy. Being diuresed. 04/04: Remains sedated, orally intubated on mechanical ventilation. Switch to PRVC mode overnight. On 50% FiO2, PEEP +8. Family deciding regarding goals of therapy. 04/05: Remains sedated, orally intubated on mechanical ventilation. PEEP increased to +10 overnight due to hypoxia. 04/06: Remains sedated, orally intubated on mechanical ventilation. Worsening oxygenation since yesterday. Chest x-ray showed fluid overload. Resume Bumex twice daily yesterday in addition to Zaroxolyn PO. Objective Vital Signs / I&O: Vital Signs 04/05/18 12:30 04/05/18 13:00 04/05/18 13:30 Temperature Pulse Rate 74 65 63 Respiratory Rate 17 17 17 Blood Pressure 124/55 L Pulse Oximetry 92 L 92 L 91 L 04/05/18 14:00 04/05/18 14:30 04/05/18 15:00 Temperature Pulse Rate 65 64 79 Respiratory Rate 16 16 16 Blood Pressure 139/65 123/54 L 168/65 H Pulse Oximetry 92 L 93 L 92 L 04/05/18 15:20 04/05/18 15:30 04/05/18 15:49 Temperature 97.8 F Pulse Rate 67 77 Respiratory Rate 20 20 20 Blood Pressure 123/55 L Pulse Oximetry 93 L 93 L 04/05/18 16:00 04/05/18 16:30 04/05/18 17:00 Temperature 97.5 F L Pulse Rate 58 L 56 L 62 Respiratory Rate 20 20 20 Blood Pressure 123/55 L 134/57 L Pulse Oximetry 95 94 L 94 L 04/05/18 17:30 04/05/18 18:00 04/05/18 18:30 Temperature Pulse Rate 63 56 L 61 Respiratory Rate 20 20 21 Blood Pressure 133/59 L Pulse Oximetry 94 L 95 95 04/05/18 19:00 04/05/18 19:30 04/05/18 20:00 Temperature 98.3 F Pulse Rate 72 70 70 Respiratory Rate 19 21 20 Blood Pressure 178/71 H 168/66 H Pulse Oximetry 95 95 96 04/05/18 20:30 04/05/18 20:45 04/05/18 21:00 Temperature Pulse Rate 71 70 Respiratory Rate 21 20 20 Blood Pressure 170/65 H Pulse Oximetry 97 96 04/05/18 21:21 04/05/18 21:24 04/05/18 22:00 Temperature Pulse Rate 70 68 Respiratory Rate 20 20 20 Blood Pressure 156/60 H Pulse Oximetry 97 96 04/05/18 23:00 04/06/18 00:00 04/06/18 00:45 Temperature 98.4 F Pulse Rate 68 70 Respiratory Rate 20 20 20 Blood Pressure 160/60 H 164/62 H Pulse Oximetry 97 97 96 04/06/18 01:00 04/06/18 02:00 04/06/18 02:45 Temperature Pulse Rate 68 70 Respiratory Rate 20 20 20 Blood Pressure 165/61 H 163/62 H Pulse Oximetry 92 L 94 L 04/06/18 03:00 04/06/18 04:00 04/06/18 04:04 Temperature 98.6 F Pulse Rate 73 70 82 Respiratory Rate 20 20 23 Blood Pressure 174/64 H 167/63 H Pulse Oximetry 94 L 94 L 04/06/18 04:05 04/06/18 05:00 04/06/18 05:15 Temperature Pulse Rate 72 Respiratory Rate 20 20 20 Blood Pressure 178/65 H Pulse Oximetry 95 94 L 04/06/18 06:00 04/06/18 08:00 Temperature Pulse Rate 68 Respiratory Rate 20 20 Blood Pressure 148/56 H Pulse Oximetry 97 98 Intake & Output 04/05/18 04/06/18 04/06/18 18:59 06:59 18:59 Intake Total 1030.1 / 1030.1 974.1 / 974.1 50 / 50 Output Total 1300 / 1300 1750 / 1750 Balance -269.9 / -269.9 -775.9 / -775.9 50 / 50 Weight 138.5 kg Intake: IV 484.1 / 484.1 406.1 / 406.1 50 / 50 Versed Inj 50 mg In 50 ml @ 2 134.1 / 134.1 134.1 / 134.1 50 / 50 MG/HR 2 mls/hr IV.CONT TITRATE PRN Rx#:[id number] Avycaz Inj 1.25 GM In NS Inj 50 100 / 100 50 / 50 ML @ 25 mls/hr IV.SIG Q8H [facility] Rx#:[id number] fentaNYL 10 mcg/mL Premix Drip 250 / 250 222 / 222 2,500 mcg In 250 ml @ 50 MCG/HR 5 mls/hr IV.SIG TITRATE PRN Rx #:[id number] Tube Feeding 546 / 546 468 / 468 Water Bolus Amount 100 / 100 Output: Stool 50 / 50 Urine Amount (Catheter) 1300 / 1300 1700 / 1700 Indwelling Urethral Catheter 1300 / 1300 1700 / 1700 Other: Date of Last Bowel Movement 04/06/18 04/06/18 Result Diagrams: 04/06/18 03:50 04/06/18 03:50 Objective Remarks: GENERAL: 52-year-old female patient with an elevated BMI who is lying in bed orotracheally intubated. SKIN: Intertriginous lesion with erythema and satellite lesions under left breast. Skin breakdown over medial aspect of left ankle. HEAD: Atraumatic. Normocephalic. EYES: bilateral pupils sluggishly reactive. No scleral icterus. No injection or drainage. ENT: No nasal bleeding or discharge. Mucous membranes pink and moist. Tongue and lip/oral mucosa is swollen and edematous. NECK: Trachea midline. No JVD. CARDIOVASCULAR: RRR. sinus. RESPIRATORY: Diminished bibasilar with no appreciable rales. Scattered rhonchi bilaterally. GASTROINTESTINAL: Abdomen obese, soft, non-tender, nondistended OG in place. 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 Legs revealed 2+ pitting edema bilateral lower extremities. NEUROLOGICAL: Sedated, orally intubated on mechanical ventilation. Arouses minimally on lightening sedation and. moves all extremities. Assessment and Plan - Assessment and Plan Plan: Assessment: 52yF with severe ARDS and organ failure secondary to MDRO/ESBL/KPC Klebsiella and Veillonella bacteremia. remains very critically ill. does still appear to be volume overloaded combined with significant myocardial dysfunction. continue dopamine to prevent bradycardia. continue APRV mode of ventilation. continue forced diuresis. Family concerned about goals of care and if this level of care was consistent with patient's wishes. I think it is hernandez to get palliative care involved. however, it does appear that given her young age, we could successfully rehabilitate her to a functional status at least consistent with her prior functional status at her SNF, and possibly improved depending on her clinical course. Of course this would take months of rehabilitation, and will likely include trach/peg due to her severe ARDS and hypoxia. I would support aggressive measures at this point, unless it becomes clear that the patient has a strong opinion against such measures. Remains critically ill today with multiple ongoing life-threatening organ dysfunction. NEURO/PSYCH: Acute encephalopathy - secondary to hypercapnia, improving. Abnormal brain CT with 3 mm hyperdensity in central [place] Major depressive disorder NOS Chronic opioid use Encephalomalacia right cerebellum/left occipital lobe scheduled oxycodone 20mg po q4h seroquel 50mg po q8h for delirium. versed and fentanyl for goal RASS -2. Followup CT brain - . Solitary 3 mm hyperdensity in the central [place] of uncertain significance. Differential considerations include a punctate calcification and acute hemorrhage MRI brain left occipital lobe and right cerebellum. She does not meet criteria for induced therapeutic hypothermia because she is following commands post CPR. Holding nabumetone 500 mg twice daily, methocarbamol 750 mg 4 times daily and oxycodone 10 mg every 6 hours Holding gabapentin 200 mg 3 times daily Holding tizanidine 4 mg 3 times daily RESP: Acute hypercapnic and hypoxemic respiratory failure Severe ARDS Acute asthma exacerbation Healthcare associated pneumonia WISAM/OHS Prior tobacco abuse Bilateral pleural effusions right 2.2 cm. Left 1.3 cm LMA was placed in the field by EVAC. Intubated in ED 03/18 Ventilator bundle On albuterol/ipratropium aerosols every 4 hours with albuterol aerosols every 2 hours as needed for dyspnea Weaned off epoprostenol 03/23 Spontaneous breathing trials when clinically indicated. Not today. remains hypoxic on aprv. CT thorax revealed right middle lobe/lower lobe consolidation left lower lobe consolidation. Right pleural effusion 2.2 cm. Left pleural effusion 1.3 cm Methylprednisolone succinate 40 mg IV every 12 hours. Antibiotics as per below. CXR still with pulmonary edema superimposed on ARDS. wean Phigh to 24 from 28. stretch Thigh for goal I:E 6:1 [address]. repeat ABG today CT chest/abd/pelvis 03/28: biventricular enlargement, pulmonary edema. ABG and CXR in AM. CV: Hypertension Hyperlipidemia Chronic diastolic heart failure Paroxysmal atrial fibrillation on chronic anti-coagulation with warfarin Peripheral vascular disease/peripheral arterial disease Elevated troponin intermittent bradycardia Cor pulmonale biventricular dysfunction Holding home medication of clonidine 0.1 mg every 6 hours nifedipine 90 mg daily. holding carvedilol 2D echo 02/24/18ejection fraction 50%. Wall thickness upper limits of normal. Trace MR. Lactic acid cleared Continue atorvastatin 40 mg daily Doppler bilateral upper and lower extremities with subtherapeutic INR revealed no acute thrombus heparin drip. intermittent bradycardia prevents restarting home clonidine hold carvedilol prn atropine continue dopamine infusion amlodipine 10mg po daily hydralazine 100mg po q8h glycopyrrolate to 0.4mg IM q4h. continue bumex drip at 1mg/hr. continue metolazone 5mg po q12h one dose of spironolactone 25mg po today need to achieve net negative fluid balance. GI: History of GERD Chronic pancreatitis insufficiency Hypoalbuminemia vital high-protein goal 55 cc an hour per GIs recommendation Famotidine for GI prophylaxis Docusate sodium/senna 1 tablet twice daily for bowel regimen Creon home medication 3 times daily Added Reglan 10 mg IV every 8 hourly on 04/01 for high gastric residuals and decreasing fentanyl GTT as tolerated. FEN/RENAL: Acute kidney injury superimposed on CKD Chronic kidney disease stage III Hypernatremia Hypokalemia Acute severe intravascular volume overload with pulmonary edema [place] catheter was placed in the emergency department. Monitor intake and output. Monitor electrolytes and replace as indicated Creatinine is stable, though remains elevated. Diuretic plan: bumex drip stopped 04/03 metolazone 5mg po q12h continuous albumin infusion to maintain intravascular volume. ID: Acute healthcare associated pneumonia -ESBL positive Klebsiella pneumonia Veillonella species bacteremia Metronidazole 500 every 6 hours, ceftazidime/avibactam day #4 Discontinue piperacillin/tazobactam 03/24 Discontinue 03/22 cefepime 2 g IV every 12 hours, azithromycin 500 mg daily and vancomycin Consultation to ID workup Veillonella species bacteremia Blood cultures 2 03/18 Veillonella spp. Repeat 03/20 no growth to date Sputum, ESBL positive Klebsiella pneumonia Pneumococcal urinary antigens, influenza a and B and chlamydia and mycoplasma all pending/negative HEME: Leukocytosis Chronic anemia/normocytic Chronic anti-coagulation with warfarin 4 mg daily. INR target is 2-3. Monitor CBC daily. Follow trends No indication for transfusion of blood products at this time. Discontinued heparin drip 03/22, restarted 03/26. heparin drip ENDO: Diabetes mellitus History of gout SSI q4h high scale increased levemir to 75 units SQ daily 04/05 Holding glipizide 10 mg twice daily and insulin glargine/home medication Holding allopurinol 300 mg daily/home medication MSK: Elevated BMI Osteoporosis/osteoarthritis PT evaluate and treat Okay to hold cholecalciferol 5000 units daily PROPH: SCDs for DVT prophylaxis. Heparin drip ACCESS: Right IJ CVL placed 03/19. Right axillary arterial line placed 03/19: must remain today, still critically ill. Discussed at length with patient's brother at bedside previously. Explained to him the need for tracheostomy however patient needs to be weaned down further on mechanical ventilation prior to procedure. He tells me that patient would not want tracheostomy and senior living placement based on his previous discussions with her. He tells me that she was not doing well for the last 6 months prior to her current hospitalization. Discussed with patient's son on 04/06 regarding need for tracheostomy PEG tube placement and possible senior living placement. Also discussed the fact that patient has previously expressed to her brother that she would not want these procedures done. He tells me that he would be the final decision-maker and wishes to talk to his family before making any decisions and was reluctant to talk further with me. Discussed with Antonieta Díaz from palliative care. Family meeting planned 04/06 with palliative care team. Critical care time 35 minutes, exclusive of separately billed procedures.
--- NOTE | 2018-04-06 13:37 | P.PNPAL ---
Reason for Visit Reason for visit: a. To assist with evaluation and management of symptoms including:dyspnea, pain. b. To assist medical decision maker(s) with: better understanding of current medical conditions; weighing benefits/burdens of medical treatment options; making medical treatment decisions. Subjective Subjective/Interval History: Patient seen and examined in ICU. No family at bedside. Discussed with nursing staff, Dr. Robin Major and Dr. Jen Dailey. Will need trach and PEG if family desires continued aggressive care. [facility] FiO[facility]% and PEEP increased to 15 overnight for hypoxemia. She is using accessory muscles to breath on vent. Intermittent grimacing noted, unable to assess for pain. She remains sedated on Fentanyl and Versed. She does not track or follow commands. Clinical data: * Afebrile. Hypertensive, BP 180's systolic. Heart rate 80's. * WBC 20.2, hemoglobin 9.2, hematocrit 27.9, platelets 222 * BUN 110, creatinine 2.10, sodium 136, potassium 3.7, GFR 30 - still making urine * Total protein 6.3, albumin 3.0. * 04/04/18 - Sputum culture - gram negative rods * Prior sputum cultures - ESBL + klebsiella pneumoniae MDRO, CARBA MANAGER GYN positive. * 04/05/18 - CXR - Bilateral airspace disease has worsened slightly. Call from son to request family meeting at 11:30am. Family/Friend Interactions: Met with sons (Rocael and Jose Juan), sister and niece. Palliative care role, purpose, approach Additional medical, psychosocial, and spiritual history Patients general health, functional status, and cognitive changes in the months leading up to the current hospitalization Patient/family understanding of the current medical problems Patient/family understanding of prognosis Code Status [FULL CODE] Advanced Directives - patient has no known written advanced directives. Patients goals of care as best understood from advance directives and/or conversations and/or values Current medical treatment options and benefits/burdens of those options Likely scenarios comparing ongoing aggressive care with a transition to comfort measures only. Questions answered to the best of my ability Palliative care contact information provided In summary, Rocael is serving as health care proxy decision maker, supported by some of his siblings, aunt, cousin and other family. Rocael has decided to proceed with trach, PEG. He desires FULL CODE for now. All family verbalize concern that patient would not find a life of dependence acceptable, but feel it is too soon to transition to comfort. Open to continued conversations throughout hospital course. Advance Directives Living Will: Never completed Health Care Surrogate: Never completed Durable Power of Design Leader: Never completed Health Care Surrogate Name and Number: family David spokesperson [phone] Documented care wishes:: No written advanced directives. Significant change in goals:: FULL CODE. Family desires continued aggressive care including trach and PEG at this time. They are open to ongoing conversation and understand despite aggressive measures she may not survive this admission. Objective Vital Signs: Vital Signs 04/05/18 13:30 04/05/18 14:00 04/05/18 14:30 Temperature Pulse Rate 63 65 64 Respiratory Rate 17 16 16 Blood Pressure 124/55 L 139/65 123/54 L Pulse Oximetry 91 L 92 L 93 L 04/05/18 15:00 04/05/18 15:20 04/05/18 15:30 Temperature Pulse Rate 79 67 Respiratory Rate 16 20 20 Blood Pressure 168/65 H Pulse Oximetry 92 L 93 L 93 L 04/05/18 15:49 04/05/18 16:00 04/05/18 16:30 Temperature 97.8 F 97.5 F L Pulse Rate 77 58 L 56 L Respiratory Rate 20 20 20 Blood Pressure 123/55 L 123/55 L Pulse Oximetry 95 94 L 04/05/18 17:00 04/05/18 17:30 04/05/18 18:00 Temperature Pulse Rate 62 63 56 L Respiratory Rate 20 20 20 Blood Pressure 134/57 L 133/59 L Pulse Oximetry 94 L 94 L 95 04/05/18 18:30 04/05/18 19:00 04/05/18 19:30 Temperature Pulse Rate 61 72 70 Respiratory Rate 21 19 21 Blood Pressure 178/71 H Pulse Oximetry 95 95 95 04/05/18 20:00 04/05/18 20:30 04/05/18 20:45 Temperature 98.3 F Pulse Rate 70 71 Respiratory Rate 20 21 20 Blood Pressure 168/66 H Pulse Oximetry 96 97 04/05/18 21:00 04/05/18 21:21 04/05/18 21:24 Temperature Pulse Rate 70 70 Respiratory Rate 20 20 20 Blood Pressure 170/65 H Pulse Oximetry 96 97 04/05/18 22:00 04/05/18 23:00 04/06/18 00:00 Temperature 98.4 F Pulse Rate 68 68 70 Respiratory Rate 20 20 20 Blood Pressure 156/60 H 160/60 H 164/62 H Pulse Oximetry 96 97 97 04/06/18 00:45 04/06/18 01:00 04/06/18 02:00 Temperature Pulse Rate 68 70 Respiratory Rate 20 20 20 Blood Pressure 165/61 H 163/62 H Pulse Oximetry 96 92 L 94 L 04/06/18 02:45 04/06/18 03:00 04/06/18 04:00 Temperature 98.6 F Pulse Rate 73 70 Respiratory Rate 20 20 20 Blood Pressure 174/64 H 167/63 H Pulse Oximetry 94 L 94 L 04/06/18 04:04 04/06/18 04:05 04/06/18 05:00 Temperature Pulse Rate 82 72 Respiratory Rate 23 20 20 Blood Pressure 178/65 H Pulse Oximetry 95 94 L 04/06/18 05:15 04/06/18 06:00 04/06/18 08:00 Temperature Pulse Rate 68 Respiratory Rate 20 20 20 Blood Pressure 148/56 H Pulse Oximetry 97 98 04/06/18 11:45 Temperature Pulse Rate Respiratory Rate 20 Blood Pressure Pulse Oximetry 92 L Intake & Output 04/05/18 04/06/18 04/06/18 18:59 06:59 18:59 Intake Total 1030.1 / 1030.1 974.1 / 974.1 50 / 50 Output Total 1300 / 1300 1750 / 1750 Balance -269.9 / -269.9 -775.9 / -775.9 50 / 50 Weight 138.5 kg Intake: IV 484.1 / 484.1 406.1 / 406.1 50 / 50 Versed Inj 50 mg In 50 ml @ 2 134.1 / 134.1 134.1 / 134.1 50 / 50 MG/HR 2 mls/hr IV.CONT TITRATE PRN Rx#:[id number] Avycaz Inj 1.25 GM In NS Inj 50 100 / 100 50 / 50 ML @ 25 mls/hr IV.SIG Q8H JACKI Rx#:[id number] fentaNYL 10 mcg/mL Premix Drip 250 / 250 222 / 222 2,500 mcg In 250 ml @ 50 MCG/HR 5 mls/hr IV.SIG TITRATE PRN Rx #:[id number] Tube Feeding 546 / 546 468 / 468 Water Bolus Amount 100 / 100 Output: Stool 50 / 50 Urine Amount (Catheter) 1300 / 1300 1700 / 1700 Indwelling Urethral Catheter 1300 / 1300 1700 / 1700 Other: Date of Last Bowel Movement 04/06/18 04/06/18 Physical Exam: CONSTITUTIONAL/GENERAL: This is an obese, critically ill patient. TUBES/LINES/DRAINS: ETT, OG, right IJ central line, PIV, bilateral soft wrist restraints, [place], rectal tube, SCDs SKIN: No jaundice, rashes, or lesions. Ecchymoses on upper extremities. No wounds seen anteriorly. Skin temperature appropriate. Not diaphoretic. EYES: opens eyes, does not track. ENT: Unable to assess hearing. Nose without bleeding or purulent drainage. CARDIOVASCULAR: RRR. RESPIRATORY/CHEST: Diminished bibasilar with no appreciable rales. Scattered rhonchi bilaterally. GASTROINTESTINAL: Abdomen obese, soft, non-tender, nondistended OG in place. GENITOURINARY: Without palpable bladder distension. [place] catheter in place. 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 Legs revealed 2+ pitting edema bilateral lower extremities. NEUROLOGICAL:Sedated. PSYCHIATRIC: Sedated. Diagnostic Tests Laboratory: Laboratory Results - last 72 hr 04/03/18 04/03/18 04/04/18 16:39 20:07 01:44 CBC w Diff WBC RBC Hgb Hct MCV MCH MCHC RDW Plt Count MPV Prelim Diff (Auto) Neut % (Auto) Lymph % (Auto) Union % (Auto) Eos % (Auto) Baso % (Auto) Neut # (Auto) Lymph # (Auto) Union # (Auto) Eos # (Auto) Baso # (Auto) WBC Differential Differential Comment APTT Puncture Site Patient Temperature O2 Saturation ABG pH ABG pCO2 ABG pO2 ABG HCO3 ABG O2 Content ABG Base Excess ABG Methemoglobin Hemoglobin Carboxyhemoglobin O2 Delivery Device Vent Setting Inspired O2 Critical Value Sodium Potassium Chloride Carbon Dioxide Anion Gap BUN Creatinine Estimated GFR POC Glucose 309 H 343 H 265 H Random Glucose Calcium Total Bilirubin AST ALT Alkaline Phosphatase Total Protein Albumin Blood Type Antibody Screen Antibody Identification Direct Antiglob Test MTS Gel Crossmatch 04/04/18 04/04/18 04/04/18 04:52 04:52 04:52 CBC w Diff Auto diff final WBC 16.1 H RBC 2.74 L Hgb 6.5 L* Hct 20.4 L* MCV 74.6 L MCH 23.8 L MCHC 31.9 L RDW 23.7 H Plt Count 193 MPV 9.5 Prelim Diff (Auto) Program Instructor Neut % (Auto) 89.3 H Lymph % (Auto) 3.5 L Union % (Auto) 7.0 Eos % (Auto) 0.0 Baso % (Auto) 0.2 Neut # (Auto) 14.4 H Lymph # (Auto) 0.6 L Union # (Auto) 1.1 H Eos # (Auto) 0.0 Baso # (Auto) 0.0 WBC Differential . Differential Comment . APTT 53.4 H Puncture Site Patient Temperature O2 Saturation ABG pH ABG pCO2 ABG pO2 ABG HCO3 ABG O2 Content ABG Base Excess ABG Methemoglobin Hemoglobin Carboxyhemoglobin O2 Delivery Device Vent Setting Inspired O2 Critical Value Sodium 136 Potassium 3.0 L Chloride 97 L Carbon Dioxide 27.3 Anion Gap 12 BUN 99 H Creatinine 2.08 H Estimated GFR 30 L POC Glucose Random Glucose 261 H Calcium 8.9 Total Bilirubin 0.5 AST 15 ALT 19 Alkaline Phosphatase 69 Total Protein 5.9 L Albumin 2.8 L Blood Type Antibody Screen Antibody Identification Direct Antiglob Test MTS Gel Crossmatch 04/04/18 04/04/18 04/04/18 04:54 06:15 07:48 CBC w Diff WBC RBC Hgb Hct MCV MCH MCHC RDW Plt Count MPV Prelim Diff (Auto) Neut % (Auto) Lymph % (Auto) Union % (Auto) Eos % (Auto) Baso % (Auto) Neut # (Auto) Lymph # (Auto) Union # (Auto) Eos # (Auto) Baso # (Auto) WBC Differential Differential Comment APTT Puncture Site Patient Temperature O2 Saturation ABG pH ABG pCO2 ABG pO2 ABG HCO3 ABG O2 Content ABG Base Excess ABG Methemoglobin Hemoglobin Carboxyhemoglobin O2 Delivery Device Vent Setting Inspired O2 Critical Value Sodium Potassium Chloride Carbon Dioxide Anion Gap BUN Creatinine Estimated GFR POC Glucose 268 H 255 H Random Glucose Calcium Total Bilirubin AST ALT Alkaline Phosphatase Total Protein Albumin Blood Type AB Positive Antibody Screen Positive H Antibody Identification Direct Antiglob Test Weakly positive H MTS Gel Crossmatch See Detail 08/04/18 08/04/18 08/04/18 10:58 11:56 12:15 CBC w Diff WBC RBC Hgb 7.8 L Hct 24.2 L MCV MCH MCHC RDW Plt Count MPV Prelim Diff (Auto) Neut % (Auto) Lymph % (Auto) Union % (Auto) Eos % (Auto) Baso % (Auto) Neut # (Auto) Lymph # (Auto) Union # (Auto) Eos # (Auto) Baso # (Auto) WBC Differential Differential Comment APTT Puncture Site Patient Temperature O2 Saturation ABG pH ABG pCO2 ABG pO2 ABG HCO3 ABG O2 Content ABG Base Excess ABG Methemoglobin Hemoglobin Carboxyhemoglobin O2 Delivery Device Vent Setting Inspired O2 Critical Value Sodium Potassium Chloride Carbon Dioxide Anion Gap BUN Creatinine Estimated GFR POC Glucose 211 H Random Glucose Calcium Total Bilirubin AST ALT Alkaline Phosphatase Total Protein Albumin Blood Type Antibody Screen Antibody Identification Anti-Jkb Direct Antiglob Test MTS Gel Crossmatch 04/04/18 04/04/18 04/05/18 15:52 19:25 00:02 CBC w Diff WBC RBC Hgb Hct MCV MCH MCHC RDW Plt Count MPV Prelim Diff (Auto) Neut % (Auto) Lymph % (Auto) Union % (Auto) Eos % (Auto) Baso % (Auto) Neut # (Auto) Lymph # (Auto) Union # (Auto) Eos # (Auto) Baso # (Auto) WBC Differential Differential Comment APTT Puncture Site Patient Temperature O2 Saturation ABG pH ABG pCO2 ABG pO2 ABG HCO3 ABG O2 Content ABG Base Excess ABG Methemoglobin Hemoglobin Carboxyhemoglobin O2 Delivery Device Vent Setting Inspired O2 Critical Value Sodium Potassium Chloride Carbon Dioxide Anion Gap BUN Creatinine Estimated GFR POC Glucose 243 H 287 H 246 H Random Glucose Calcium Total Bilirubin AST ALT Alkaline Phosphatase Total Protein Albumin Blood Type Antibody Screen Antibody Identification Direct Antiglob Test MTS Gel Crossmatch 04/05/18 04/05/18 04/05/18 04:03 04:07 04:07 CBC w Diff WBC 16.4 H RBC 3.19 L Hgb 8.3 L Hct 25.0 L MCV 78.4 L D MCH 25.9 L MCHC 33.0 RDW 22.8 H Plt Count 173 MPV 10.6 Prelim Diff (Auto) Neut % (Auto) 91.2 H Lymph % (Auto) 2.7 L Union % (Auto) 6.0 Eos % (Auto) 0.0 Baso % (Auto) 0.1 Neut # (Auto) 14.9 H Lymph # (Auto) 0.4 L Union # (Auto) 1.0 H Eos # (Auto) 0.0 Baso # (Auto) 0.0 WBC Differential . Differential Comment Auto diff final APTT Puncture Site Patient Temperature O2 Saturation ABG pH ABG pCO2 ABG pO2 ABG HCO3 ABG O2 Content ABG Base Excess ABG Methemoglobin Hemoglobin Carboxyhemoglobin O2 Delivery Device Vent Setting Inspired O2 Critical Value Sodium 138 Potassium 3.1 L Chloride 98 Carbon Dioxide 31.0 Anion Gap 9 BUN 107 H Creatinine 2.01 H Estimated GFR 31 L POC Glucose 228 H Random Glucose 266 H Calcium 9.0 Total Bilirubin 0.5 AST 27 ALT 26 Alkaline Phosphatase 68 Total Protein 5.5 L Albumin 2.7 L Blood Type Antibody Screen Antibody Identification Direct Antiglob Test MTS Gel Crossmatch 04/05/18 04/05/18 04/05/18 04:07 07:39 11:19 CBC w Diff WBC RBC Hgb Hct MCV MCH MCHC RDW Plt Count MPV Prelim Diff (Auto) Neut % (Auto) Lymph % (Auto) Union % (Auto) Eos % (Auto) Baso % (Auto) Neut # (Auto) Lymph # (Auto) Union # (Auto) Eos # (Auto) Baso # (Auto) WBC Differential Differential Comment APTT 28.9 D Puncture Site Patient Temperature O2 Saturation ABG pH ABG pCO2 ABG pO2 ABG HCO3 ABG O2 Content ABG Base Excess ABG Methemoglobin Hemoglobin Carboxyhemoglobin O2 Delivery Device Vent Setting Inspired O2 Critical Value Sodium Potassium Chloride Carbon Dioxide Anion Gap BUN Creatinine Estimated GFR POC Glucose 278 H 296 H Random Glucose Calcium Total Bilirubin AST ALT Alkaline Phosphatase Total Protein Albumin Blood Type Antibody Screen Antibody Identification Direct Antiglob Test MTS Gel Crossmatch 04/05/18 04/05/18 04/05/18 15:35 15:43 19:35 CBC w Diff WBC RBC Hgb Hct MCV MCH MCHC RDW Plt Count MPV Prelim Diff (Auto) Neut % (Auto) Lymph % (Auto) Union % (Auto) Eos % (Auto) Baso % (Auto) Neut # (Auto) Lymph # (Auto) Union # (Auto) Eos # (Auto) Baso # (Auto) WBC Differential Differential Comment APTT Puncture Site Art line Patient Temperature 98.6 O2 Saturation 82 L* ABG pH 7.39 ABG pCO2 44 H ABG pO2 51 L* ABG HCO3 26 ABG O2 Content 10.1 L ABG Base Excess 1.7 ABG Methemoglobin 1.8 Hemoglobin 8.7 L Carboxyhemoglobin 1.7 O2 Delivery Device Ventilator Vent Setting Prvc/ac 600/20/12 pe Inspired O2 60 Critical Value Yes Sodium Potassium Chloride Carbon Dioxide Anion Gap BUN Creatinine Estimated GFR POC Glucose 367 H 340 H Random Glucose Calcium Total Bilirubin AST ALT Alkaline Phosphatase Total Protein Albumin Blood Type Antibody Screen Antibody Identification Direct Antiglob Test MTS Gel Crossmatch 04/05/18 04/06/18 04/06/18 23:29 03:50 03:50 CBC w Diff WBC 20.2 H RBC 3.60 L Hgb 9.2 L Hct 27.9 L MCV 77.5 L MCH 25.6 L MCHC 33.1 RDW 23.5 H Plt Count 222 MPV 10.4 Prelim Diff (Auto) Neut % (Auto) 88.6 H Lymph % (Auto) 3.7 L Union % (Auto) 7.5 Eos % (Auto) 0.0 Baso % (Auto) 0.2 Neut # (Auto) 17.9 H Lymph # (Auto) 0.7 L Union # (Auto) 1.5 H Eos # (Auto) 0.0 Baso # (Auto) 0.0 WBC Differential . Differential Comment Auto diff final APTT Puncture Site Patient Temperature O2 Saturation ABG pH ABG pCO2 ABG pO2 ABG HCO3 ABG O2 Content ABG Base Excess ABG Methemoglobin Hemoglobin Carboxyhemoglobin O2 Delivery Device Vent Setting Inspired O2 Critical Value Sodium 136 Potassium 3.7 Chloride 97 L Carbon Dioxide 29.8 Anion Gap 9 BUN 110 H Creatinine 2.10 H Estimated GFR 30 L POC Glucose 312 H Random Glucose 281 H Calcium 9.3 Total Bilirubin 0.5 AST 59 H ALT 67 H Alkaline Phosphatase 89 Total Protein 6.3 L D Albumin 3.0 L Blood Type Antibody Screen Antibody Identification Direct Antiglob Test MTS Gel Crossmatch 04/06/18 04/06/18 04/06/18 03:50 04:31 11:56 CBC w Diff WBC RBC Hgb Hct MCV MCH MCHC RDW Plt Count MPV Prelim Diff (Auto) Neut % (Auto) Lymph % (Auto) Union % (Auto) Eos % (Auto) Baso % (Auto) Neut # (Auto) Lymph # (Auto) Union # (Auto) Eos # (Auto) Baso # (Auto) WBC Differential Differential Comment APTT 26.2 Puncture Site Patient Temperature O2 Saturation ABG pH ABG pCO2 ABG pO2 ABG HCO3 ABG O2 Content ABG Base Excess ABG Methemoglobin Hemoglobin Carboxyhemoglobin O2 Delivery Device Vent Setting Inspired O2 Critical Value Sodium Potassium Chloride Carbon Dioxide Anion Gap BUN Creatinine Estimated GFR POC Glucose 293 H 210 H Random Glucose Calcium Total Bilirubin AST ALT Alkaline Phosphatase Total Protein Albumin Blood Type Antibody Screen Antibody Identification Direct Antiglob Test MTS Gel Crossmatch Result Diagrams: 04/13/18 04:05 04/13/18 04:05 Microbiology: Microbiology 04/04/18 15:44 Gram Stain - Final Sputum - Endotracheal Sputum Culture - Preliminary gram negative rods Imaging: Head CT 03/18/18 18:46 CONCLUSION: 1. Solitary 3 mm hyperdensity in the central [place] of uncertain significance. Differential considerations include a punctate calcification and acute hemorrhage. 2. No acute findings in the supratentorial brain. Head MRI 03/19/18 00:00 CONCLUSION: 1. No evidence of brainstem hemorrhage. 2. Small foci of encephalomalacia in the left occipital lobe and right cerebellum 3. No evidence of acute infarct, hemorrhage, mass or edema. 4. No evidence of enhancing intra-axial or extra-axial lesions. Venous Doppler Study 03/19/18 00:00 CONCLUSION: The study is negative for bilateral lower extremity deep venous thrombosis. Foot X-Ray 03/22/18 00:00 CONCLUSION: No acute bony destructive change. Previous amputations as above. Fairly marked soft tissue swelling of the forefoot. Abdomen X-Ray 03/26/18 00:00 CONCLUSION: Abdomen/Pelvis CT 03/28/18 00:00 CONCLUSION: 1. Minimal increase in the trace bilateral pleural effusions with compressive atelectasis in both bases. 2. Gallstones in a benign-appearing gallbladder 3. I don't see evidence for colitis. 4. I don't see inflammatory changes in the abdomen. Chest CT 03/28/18 00:00 CONCLUSION: 1. Biventricular cardiomegaly with coarse interstitial changes in both lungs. A component of this could be failure 2. Trace bilateral pleural effusions larger on the right.. These have decreased slightly in the interval. Foot MRI 03/28/18 00:00 CONCLUSION: 1. Difficult exam to interpret because of extensive soft tissue swelling. No obvious osteomyelitis. 2. Nuclear medicine tagged white cell study may help. Chest X-Ray 04/05/18 16:00 CONCLUSION: Bilateral airspace disease has worsened slightly since April 04. Endotracheal tube, nasogastric tube and right central line unchanged. Assessment and Plan - Disease Oriented Problem List (1) ARDS (adult respiratory distress syndrome) (2) Acute respiratory failure with hypoxemia (3) HCAP (healthcare-associated pneumonia) Comment: Multi drug resistant -- Klebsiella ESBL + (4) Diabetes mellitus type 2 in obese (5) Atrial fibrillation (6) Chronic kidney disease, stage III (moderate) (7) Hypertension (8) Hypoglycemia due to type 2 diabetes mellitus (9) Lactic acid acidosis (10) Super obesity (11) IWSAM (obstructive sleep apnea) (12) Asthma (13) H/O osteomyelitis (14) Diastolic heart failure (15) Diabetes (16) Acute renal failure superimposed on stage 3 chronic kidney disease Pertinent Non-Medical Issues: Psychosocial: Never . Supported by her son, Rocael. Has 4 children ( Rocael, Jose Juan, Manny and Shobha). Spiritual: Jewish. Legal: Patient is not capacitated to make her own health care decisions, uncertain if she will regain capacity. No written advanced directives. According to [place] statutes, health care proxy decision making falls to the majority of adult children, she has 4 children. Son Rocael reports he has always made decisions for patient. Jose Juan has opted out of decision making. Awaiting to speak with other children to determine if they wish to participate in medical decision making. Ethical issues impacting care: None. Important Contacts: * Rocael Hanna, son: [phone] serving as family spokesperson * Shobha Hanna, daughter: [phone] * Jose Juan Hanna, son: * Manny Hanna, son: * Carolyn Durand, sister: [phone] . Prognosis: 03/31/18 per story reader: Miss Hanna is a 52 year old female admitted with severe ARDS and organ failure secondary to MDRO/ESBL/KPC Klebsiella and Veillonella bacteremia. remains very critically ill. does still appear to be volume overloaded combined with significant myocardial dysfunction. continue dopamine to prevent bradycardia. continue APRV mode of ventilation. continue forced diuresis. Family concerned about goals of care and if this level of care was consistent with patient's wishes. I think it is hernandez to get palliative care involved. however, it does appear that given her young age, we could successfully rehabilitate her to a functional status at least consistent with her prior functional status at her SNF, and possibly improved depending on her clinical course. Of course this would take months of rehabilitation, and will likely include trach/peg due to her severe ARDS and hypoxia. I would support aggressive measures at this point, unless it becomes clear that the patient has a strong opinion against such measures. Remains critically ill today with multiple ongoing life-threatening organ dysfunction. Code Status: Full Code Plan: * Patient is not capacitated to make her own health care decisions, uncertain if she will regain capacity. No written advanced directives. According to [place] statutes, health care proxy decision making falls to the majority of adult children, she has 4 children. Son Rocael reports he has always made decisions for patient. Son Jose Juan has opted out of decision making. Awaiting to speak with other children to determine if they wish to participate in medical decision making. * FULL CODE. * Family desires continued aggressive care including FULL CODE, trach and PEG at this time. They are open to ongoing conversation and understand despite aggressive measures she may not survive this admission. * SYMPTOMS: dyspnea: on [facility] vent, sedated, despite sedation having difficulty with vent synchrony per nursing staff. * Palliative care will continue to monitor to assist with symptom management and clarification of treatment goals. Attestation Collaborating Comments: Chart reviewed. Case discussed with palliative care NET SOFTWARE DEVELOPER. Above NET SOFTWARE DEVELOPER note reviewed and I concur. . Attestation: To help prompt me to consider important information that might be impacting today's encounter and assessment, information from prior notes written by myself or my colleagues may have been "brought forward" into today's note. My signature on this note, however, is an attestation that I personally performed the exam, history, and/or decision-making noted today, and, unless otherwise indicated, the interactions with patient, family, and staff as well as the review of records all occurred today. I also attest that the listed assessment and stated plan reflect my best clinical judgment today based on the combination of historical information, prior notes, and today's exam/ interactions. When time spent is documented, it refers only to time spent today by the signer, or if indicated, combined time spent today by collaborating physician/nurse practitioner.
--- NOTE | 2018-04-06 15:23 | P.PNID ---
Subjective Remarks: remains on biphasic 55% FiO2, PEEP up to 15 afebrile WBC up to 20 K tolerates tube feeds Antibiotics: avicaz flagyl Allergies/Adverse Reactions: Allergies ibuprofen Allergy (Severe, Verified 03/18/18 17:58) MESSES WITH KIDNEYS Sulfa (Sulfonamide Antibiotics) Allergy (Severe, Verified 03/18/18 17:58) HIVES egg Allergy (Intermediate, Verified 03/18/18 17:58) Very Upset Stomach milk Allergy (Unknown, Verified 03/18/18 17:58) Heartburn Objective Vital Signs 04/05/18 15:20 04/05/18 15:30 04/05/18 15:49 Temperature 97.8 F Pulse Rate 67 77 Respiratory Rate 20 20 20 Blood Pressure 123/55 L Pulse Oximetry 93 L 93 L 04/05/18 16:00 04/05/18 16:30 04/05/18 17:00 Temperature 97.5 F L Pulse Rate 58 L 56 L 62 Respiratory Rate 20 20 20 Blood Pressure 123/55 L 134/57 L Pulse Oximetry 95 94 L 94 L 04/05/18 17:30 04/05/18 18:00 04/05/18 18:30 Temperature Pulse Rate 63 56 L 61 Respiratory Rate 20 20 21 Blood Pressure 133/59 L Pulse Oximetry 94 L 95 95 04/05/18 19:00 04/05/18 19:30 04/05/18 20:00 Temperature 98.3 F Pulse Rate 72 70 70 Respiratory Rate 19 21 20 Blood Pressure 178/71 H 168/66 H Pulse Oximetry 95 95 96 04/05/18 20:30 04/05/18 20:45 04/05/18 21:00 Temperature Pulse Rate 71 70 Respiratory Rate 21 20 20 Blood Pressure 170/65 H Pulse Oximetry 97 96 04/05/18 21:21 04/05/18 21:24 04/05/18 22:00 Temperature Pulse Rate 70 68 Respiratory Rate 20 20 20 Blood Pressure 156/60 H Pulse Oximetry 97 96 04/05/18 23:00 04/06/18 00:00 04/06/18 00:45 Temperature 98.4 F Pulse Rate 68 70 Respiratory Rate 20 20 20 Blood Pressure 160/60 H 164/62 H Pulse Oximetry 97 97 96 04/06/18 01:00 04/06/18 02:00 04/06/18 02:45 Temperature Pulse Rate 68 70 Respiratory Rate 20 20 20 Blood Pressure 165/61 H 163/62 H Pulse Oximetry 92 L 94 L 04/06/18 03:00 04/06/18 04:00 04/06/18 04:04 Temperature 98.6 F Pulse Rate 73 70 82 Respiratory Rate 20 20 23 Blood Pressure 174/64 H 167/63 H Pulse Oximetry 94 L 94 L 04/06/18 04:05 04/06/18 05:00 04/06/18 05:15 Temperature Pulse Rate 72 Respiratory Rate 20 20 20 Blood Pressure 178/65 H Pulse Oximetry 95 94 L 04/06/18 06:00 04/06/18 08:00 04/06/18 10:00 Temperature Pulse Rate 68 63 67 Respiratory Rate 20 20 Blood Pressure 148/56 H 133/63 Pulse Oximetry 97 98 04/06/18 11:45 04/06/18 12:00 04/06/18 14:00 Temperature Pulse Rate 74 71 Respiratory Rate 20 Blood Pressure Pulse Oximetry 92 L Intake & Output 04/05/18 04/06/18 04/06/18 18:59 06:59 18:59 Intake Total 1030.1 / 1030.1 974.1 / 974.1 350 / 350 Output Total 1300 / 1300 1750 / 1750 Balance -269.9 / -269.9 -775.9 / -775.9 350 / 350 Weight 138.5 kg Intake: IV 484.1 / 484.1 406.1 / 406.1 350 / 350 Versed Inj 50 mg In 50 ml @ 2 134.1 / 134.1 134.1 / 134.1 100 / 100 MG/HR 2 mls/hr IV.CONT TITRATE PRN Rx#:[id number] Avycaz Inj 1.25 GM In NS Inj 50 100 / 100 50 / 50 ML @ 25 mls/hr IV.SIG Q8H JACKI Rx#:[id number] fentaNYL 10 mcg/mL Premix Drip 250 / 250 222 / 222 250 / 250 2,500 mcg In 250 ml @ 50 MCG/HR 5 mls/hr IV.SIG TITRATE PRN Rx #:[id number] Tube Feeding 546 / 546 468 / 468 Water Bolus Amount 100 / 100 Output: Stool 50 / 50 Urine Amount (Catheter) 1300 / 1300 1700 / 1700 Indwelling Urethral Catheter 1300 / 1300 1700 / 1700 Other: Date of Last Bowel Movement 04/06/18 04/06/18 04/04/18 15:44 Sputum - Endotracheal Gram Stain - Final 04/04/18 15:44 Sputum - Endotracheal Sputum Culture - Preliminary Klebsiella pneumoniae ESBL pos Multidrug Resistant Lab - Hematology Results 04/05/18 04/06/18 04:07 03:50 WBC 16.4 H 20.2 H RBC 3.19 L 3.60 L Hgb 8.3 L 9.2 L Hct 25.0 L 27.9 L MCV 78.4 L D 77.5 L MCH 25.9 L 25.6 L MCHC 33.0 33.1 RDW 22.8 H 23.5 H Plt Count 173 222 MPV 10.6 10.4 Neut % (Auto) 91.2 H 88.6 H Lymph % (Auto) 2.7 L 3.7 L [place] % (Auto) 6.0 7.5 Eos % (Auto) 0.0 0.0 Baso % (Auto) 0.1 0.2 Neut # (Auto) 14.9 H 17.9 H Lymph # (Auto) 0.4 L 0.7 L [place] # (Auto) 1.0 H 1.5 H Eos # (Auto) 0.0 0.0 Baso # (Auto) 0.0 0.0 WBC Differential . . Differential Comment Auto diff final Auto diff final Lab - Chemistry Results 04/04/18 04/04/18 04/05/18 15:52 19:25 00:02 Sodium Potassium Chloride Carbon Dioxide Anion Gap BUN Creatinine Estimated GFR POC Glucose 243 H 287 H 246 H Random Glucose Calcium Total Bilirubin AST ALT Alkaline Phosphatase Total Protein Albumin 04/05/18 04/05/18 04/05/18 04:03 04:07 07:39 Sodium 138 Potassium 3.1 L Chloride 98 Carbon Dioxide 31.0 Anion Gap 9 BUN 107 H Creatinine 2.01 H Estimated GFR 31 L POC Glucose 228 H 278 H Random Glucose 266 H Calcium 9.0 Total Bilirubin 0.5 AST 27 ALT 26 Alkaline Phosphatase 68 Total Protein 5.5 L Albumin 2.7 L 04/05/18 04/05/18 04/05/18 11:19 15:43 19:35 Sodium Potassium Chloride Carbon Dioxide Anion Gap BUN Creatinine Estimated GFR POC Glucose 296 H 367 H 340 H Random Glucose Calcium Total Bilirubin AST ALT Alkaline Phosphatase Total Protein Albumin 04/05/18 04/06/18 04/06/18 23:29 03:50 04:31 Sodium 136 Potassium 3.7 Chloride 97 L Carbon Dioxide 29.8 Anion Gap 9 BUN 110 H Creatinine 2.10 H Estimated GFR 30 L POC Glucose 312 H 293 H Random Glucose 281 H Calcium 9.3 Total Bilirubin 0.5 AST 59 H ALT 67 H Alkaline Phosphatase 89 Total Protein 6.3 L D Albumin 3.0 L 04/06/18 11:56 Sodium Potassium Chloride Carbon Dioxide Anion Gap BUN Creatinine Estimated GFR POC Glucose 210 H Random Glucose Calcium Total Bilirubin AST ALT Alkaline Phosphatase Total Protein Albumin Imaging: ITS Impressions Head CT 03/18/18 18:46 CONCLUSION: 1. Solitary 3 mm hyperdensity in the central [place] of uncertain significance. Differential considerations include a punctate calcification and acute hemorrhage. 2. No acute findings in the supratentorial brain. Head MRI 03/19/18 00:00 CONCLUSION: 1. No evidence of brainstem hemorrhage. 2. Small foci of encephalomalacia in the left occipital lobe and right cerebellum 3. No evidence of acute infarct, hemorrhage, mass or edema. 4. No evidence of enhancing intra-axial or extra-axial lesions. Venous Doppler Study 03/19/18 00:00 CONCLUSION: The study is negative for bilateral lower extremity deep venous thrombosis. Foot X-Ray 03/22/18 00:00 CONCLUSION: No acute bony destructive change. Previous amputations as above. Fairly marked soft tissue swelling of the forefoot. Abdomen X-Ray 03/26/18 00:00 CONCLUSION: Abdomen/Pelvis CT 03/28/18 00:00 CONCLUSION: 1. Minimal increase in the trace bilateral pleural effusions with compressive atelectasis in both bases. 2. Gallstones in a benign-appearing gallbladder 3. I don't see evidence for colitis. 4. I don't see inflammatory changes in the abdomen. Chest CT 03/28/18 00:00 CONCLUSION: 1. Biventricular cardiomegaly with coarse interstitial changes in both lungs. A component of this could be failure 2. Trace bilateral pleural effusions larger on the right.. These have decreased slightly in the interval. Foot MRI 03/28/18 00:00 CONCLUSION: 1. Difficult exam to interpret because of extensive soft tissue swelling. No obvious osteomyelitis. 2. Nuclear medicine tagged white cell study may help. Chest X-Ray 04/05/18 16:00 CONCLUSION: Bilateral airspace disease has worsened slightly since April 04. Endotracheal tube, nasogastric tube and right central line unchanged. Physical Exam: no acute distress, morbidly obese Head: Present: normocephalic, atraumatic, prominent facial swelling Eye: Present: improved periorbital swelling no scleral icterus ENT: Present: mucous membranes moist, oropharynx clear NECK: trachea midline LUNGs: patient mechanically ventilated, clear Cardiovascular : RRR, S1, S2 no murmurs, rubs , gallops Abdominal : soft, less distended no reaction to palpation, no audfible bowel sounds no palpable organomegaly liquid stool in rectal collection system : hernandez in place hernandez in place with small amount of clear yellow urine Extremities: edema improved, less prominent 2-3 + prominent tree bark meeks Skin : intact, dry, no rash well perfused Neurological : arousable Psychiatric : unable to assess LINE: R IJ in place - OK Assessment and Plan - Plan sp cardiac arrest Anaerobic sepsis; veillonella ? source : GI vs osteo CT and MRI diid not reveal source of her anaerobic sepsis Xrays negative, CT/MR not feasible 2/2 clincial cond'n Acute VDRF, less O2 requirement PNA, ESBL/ ? KPC Kleb R to zerbaxa, S acvycaz and vabomere worsening CXR worsening oxygenation growing MDRO Kleb again YOU - stable she is doing worse Persistent leukocytosis - much worse Anemia, new. No clincially apparent bleed - - change avycaz to vabo mere - up the dose if GFR improves >30 - will repeat sputum clx - monitor WBC - will need coloscopy after she revoeres (hem + stool and anaerobic sepsis) jeanne ADLER
[2018-04-06] MEDS: hydrALAZINE 50 MG Tablet PO PRN (18:40)
[2018-04-06] MEDS: niCARdipine Inj 25 MG in Sodium Chlor 0.9% Inj 240 ML IV.CONT PRN (22:36)
[2018-04-07] MEDS: Oral Hygiene Kit OROPHARYNG SCH ×4 (00:20→17:27)
[2018-04-07] MEDS: Insulin NovoLIN Regular Correctional Sugar Inj SQ SCH ×6 (00:20→21:00)
[2018-04-07] MEDS: fentaNYL 10 mcg/mL Premix Drip 2,500 MCG/250 ML BAG IV.SIG PRN ×3 (02:01→22:50)
[2018-04-07] MEDS: Midazolam 50 MG/50 ML Inj 50 MG/50 ML BAG IV.CONT PRN ×5 (02:05→22:51)
[2018-04-07] MEDS: Hypromellose 0.3% Opth Gel 10 GM Bottle EACH EYE SCH ×3 (04:11→18:15)
[2018-04-07] MEDS: Ceftazidime/Avibactam Inj 1.25 GM in Sodium Chlor 0.9% Inj 50 ML IV.SIG SCH ×3 (04:11→20:56)
[2018-04-07] MEDS: niCARdipine Inj 25 MG in Sodium Chlor 0.9% Inj 240 ML IV.CONT PRN ×2 (04:12→18:12)
[2018-04-07 05:26] LABS: Alanine Aminotransferase 90 U/L (10-53); Anion Gap 10 meq/L (5-15); Aspartate Aminotransferase 64 U/L (15-37); Blood Urea Nitrogen 114 mg/dL (7-18); Calcium 9.6 mg/dL (8.5-10.1); Carbon Dioxide 31.1 meq/L (21.0-32.0); Chloride 94 meq/L (98-107); Glomerular Filtration Rate 31 mL/min (>89); Glucose,Random 191 mg/dL (74-106); Potassium 3.7 meq/L (3.5-5.1); Sodium 135 meq/L (136-145)
[2018-04-07 05:28] LABS: Alkaline Phosphatase 92 U/L (45-117); Total Protein 6.6 g/dL (6.4-8.2)
[2018-04-07] MEDS: QUEtiapine 25 MG Tablet PO SCH ×3 (05:28→21:01)
[2018-04-07] MEDS: MethylPREDNISolone Sod Succinate Inj 40 MG/ML Vial IV.PUSH SCH (08:43)
[2018-04-07] MEDS: Insulin Detemir Inj 1,000 UNIT/10 ML Vial SQ SCH (08:45)
[2018-04-07] MEDS: amLODIPine 10 MG Tablet PO SCH (08:49)
[2018-04-07] MEDS: metOLazone 5 MG Tablet PO SCH ×2 (08:49→20:57)
[2018-04-07] MEDS: Lipase/Protease/Amylase 24/76/120 DR Capsule PO SCH ×3 (08:49→18:15)
[2018-04-07] MEDS: Famotidine 20 MG Tablet PO SCH ×2 (08:50→21:00)
[2018-04-07] MEDS: Senna/Docusate Sodium 8.6/50 MG Tablet PO SCH ×2 (08:50→20:58)
[2018-04-07] MEDS ORDERED: MEROPENEM IV.SIG SCH (10:00)
[2018-04-07] MEDS ORDERED: VABORBACTAM IV.SIG SCH (10:00)
[2018-04-07] MEDS: Chlorhexidine 0.12% Oral Kit 15 ML UDC OROPHARYNG SCH ×2 (10:16→21:00)
--- NOTE | 2018-04-07 11:22 | P.PNCC ---
Subjective Subjective Remarks/Hospital Course: 52-year-old female with past medical history of diabetes mellitus, hypertension, hyperlipidemia, atrial fibrillation on chronic anticoagulation with warfarin, chronic diastolic heart failure, asthma, WISAM, peripheral vascular disease, super morbid obesity. She has been at [facility] since 03/02/18. Abeba JACOBO was called due to respiratory distress. When they arrived as she was found to be in respiratory distress with sats in the 70s. She was communicating with them and reportedly said "leave me alone". She then had PEA arrest. She received CPR reportedly 10-15 minutes and received 2 doses of epinephrine. LMA was placed by EVAC. LMA was removed and she was intubated by Dr. Daly after receiving etomidate 20 mg IV and succinylcholine. She has demonstrated purposeful movements post intubation, and is now on a propofol drip. She was [place] [facility] [place] due to hypoglycemia, fall after isolated episode of diarrhea, hypoxia requiring HFNC. She has chronic interstitial changes on CXR. Reviewed records from [facility] which indicate she completed a 7 day course of Levaquin and has been on a prednisone taper. Current CXR shows bibasilar opacities. WBC is 16 ( previously 7.9). She has acute hypercapneic and hypoxemic respiratory failure. 03/19: Afebrile. Remains on 100% FiO2 PEEP of 12. Central has been placed for access due to multiple drips. Plan MRI brain today if respiratory status improves. Does not tolerate lying flat. Likely will need epoprostenol and rotaprone 03/20: Started on epoprostenol and currently on a rotor from bed. Currently on cisatracurium drip at 1 mcg/kg/min. Diuresing well. 03/21: Weaning down epoprostenol. Remains on cisatracurium drip at 6 mcg/kg/ min. Diuresis 6 L. Saturation was improved FiO2 down to 45%. 03/22: Hypothermic overnight. Currently euthermic. Excellent response to bumetanide drip. FiO2 down to 40%. PEEP down to 8. Possible discontinue paralytic agent today. 03/23: Resting comfortable in bed in no acute distress. Afebrile. Desaturated so placed back on rotor prone bed. Creatinine slowly increasing. 03/24: Afebrile. Worsening chest x-ray it appears to be volume overloaded again. +10 L past 24 hours. Will restart on bumetanide drip. Plan for bronchoscopy today. Switch to ceftazidime/avibactam secondary to ESBL positive Klebsiella pneumonia 03/25: FiO2 to 55%. Tolerating demanding drip with -2 L past 24 hours. Bronchoscopy results pending. Positive BM. Restarting tube feeding today 03/26: Cr continues to rise, although clinically continues to appear severely volume overloaded. fio2 70%. supine all night. off nimbex. off flolan. ID managing ESBL/MDRO/KPC Klebsiella and anaerobic bacteremia. 03/27: off rotaprone bed. multiple desat episodes overnight. on 100% fio2 and PEEP 10 this AM. good diuresis with net -2L/24h. bumex drip continues. awakens and follows commands. 03/28: not diuresing as well as yesterday. wbc uptrending. 2 more episodes of bradycardia, not associated with hypoxia. however, fio2 remains severely elevated. I increased her peep to 14. still arouses and moves all extremities. high concern for ongoing infectious etiology, but with high o2 requirements and intermittent bradycardia requiring atropine, at present too unstable for repeat imaging. 03/29: ct C/A/P without overt infectious source. does demonstrate radiographic evidence of biventricular dysfunction. bedside echo today demonstrates the same , and dilated IVC without respiratory variation. off vasopressors. required atropine for a HR of 15 once overnight. still very hypoxic: changed to APRV 5:1 , 28/0, 4/0.8. SUBJECTIVE 03/30: remains on APRV with hypoxia. multiple episodes of bradycardia and a 18 second pause yesterday. trialed on dobutamine but with multiple dysrhythmias. now on low-dose dopamine to mitigate bradycardia. adequate diuresis overnight. cxr improving slightly. still remains volume overloaded, and YOU persists. 03/31: mild improvements in fio2. remains on APRV. no more bradycardia today. still on dopamine to prevent pauses/bradycardia. YOU persists, but stable. unable to diurese yesterday and now net +2L despite fluid overload. must increase forced diuresis to improve hypoxemia. 04/01: Remains sedated, orally intubated on mechanical ventilation. Being diuresed. Started on Reglan in view of high gastric residuals and decreasing fentanyl as tolerated. 04/02: Remains sedated, orally intubated on APRV mode mechanical ventilation. 04/03: Remains sedated, orally intubated on mechanical ventilation. Awaiting family meeting with palliative care to decide goals of therapy. Being diuresed. 04/04: Remains sedated, orally intubated on mechanical ventilation. Switch to PRVC mode overnight. On 50% FiO2, PEEP +8. Family deciding regarding goals of therapy. 04/05: Remains sedated, orally intubated on mechanical ventilation. PEEP increased to +10 overnight due to hypoxia. 04/06: Remains sedated, orally intubated on mechanical ventilation. Worsening oxygenation since yesterday. Chest x-ray showed fluid overload. Resume Bumex twice daily yesterday in addition to Zaroxolyn PO. 04/07: Remains sedated, orally intubated on mechanical ventilation. Diuresed. Renal function remains a concern. Started on colistin nebs per ID due to very resistant organisms in sputum. Eventually needs tracheostomy and PEG tube placement. Objective Vital Signs / I&O: Vital Signs 04/06/18 11:30 04/06/18 11:45 04/06/18 12:00 Temperature 98.4 F Pulse Rate 88 74 Respiratory Rate 23 20 21 Blood Pressure 175/68 H Pulse Oximetry 98 92 L 93 L 04/06/18 12:30 04/06/18 13:00 04/06/18 13:30 Temperature Pulse Rate 71 80 74 Respiratory Rate 20 26 H 20 Blood Pressure 181/69 H Pulse Oximetry 94 L 94 L 93 L 04/06/18 14:00 04/06/18 14:01 04/06/18 14:30 Temperature Pulse Rate 70 70 72 Respiratory Rate 20 20 20 Blood Pressure 166/70 H Pulse Oximetry 94 L 94 L 95 04/06/18 15:00 04/06/18 15:30 04/06/18 16:00 Temperature 99.5 F Pulse Rate 71 70 64 Respiratory Rate 20 20 20 Blood Pressure 166/65 H 137/56 L Pulse Oximetry 95 95 93 L 04/06/18 16:27 04/06/18 16:30 04/06/18 17:00 Temperature Pulse Rate 74 70 Respiratory Rate 20 20 20 Blood Pressure 164/63 H Pulse Oximetry 97 96 95 04/06/18 17:30 04/06/18 18:00 04/06/18 18:01 Temperature 99.2 F Pulse Rate 71 67 67 Respiratory Rate 23 20 20 Blood Pressure 148/65 H Pulse Oximetry 92 L 92 L 92 L 04/06/18 18:30 04/06/18 19:00 04/06/18 19:09 Temperature Pulse Rate 63 84 90 Respiratory Rate 20 34 H 36 H Blood Pressure 210/70 H 159/105 H Pulse Oximetry 92 L 94 L 90 L 04/06/18 19:13 04/06/18 19:30 04/06/18 20:00 Temperature 99 F Pulse Rate 85 71 75 Respiratory Rate 43 H 21 21 Blood Pressure 209/86 H 188/62 H Pulse Oximetry 92 L 92 L 93 L 04/06/18 20:01 04/06/18 20:24 04/06/18 20:30 Temperature Pulse Rate 71 84 70 Respiratory Rate 21 34 H 20 Blood Pressure 185/78 H Pulse Oximetry 93 L 94 L 93 L 04/06/18 20:45 04/06/18 21:00 04/06/18 21:01 Temperature Pulse Rate 69 71 Respiratory Rate 20 20 20 Blood Pressure 174/55 H 172/74 H Pulse Oximetry 93 L 93 L 04/06/18 21:30 04/06/18 22:00 04/06/18 22:30 Temperature Pulse Rate 67 70 71 Respiratory Rate 20 19 20 Blood Pressure 160/67 H Pulse Oximetry 94 L 93 L 95 04/06/18 23:00 04/06/18 23:29 04/06/18 23:30 Temperature Pulse Rate 72 72 Respiratory Rate 19 20 20 Blood Pressure 177/76 H Pulse Oximetry 93 L 94 L 92 L 04/07/18 00:00 04/07/18 00:30 04/07/18 00:55 Temperature 99 F Pulse Rate 72 75 Respiratory Rate 20 20 20 Blood Pressure 171/72 H Pulse Oximetry 92 L 93 L 04/07/18 01:00 04/07/18 01:30 04/07/18 02:00 Temperature Pulse Rate 71 75 73 Respiratory Rate 20 20 20 Blood Pressure 162/70 H 169/74 H Pulse Oximetry 92 L 93 L 93 L 04/07/18 02:30 04/07/18 03:00 04/07/18 03:30 Temperature Pulse Rate 73 70 72 Respiratory Rate 20 20 20 Blood Pressure 140/63 Pulse Oximetry 93 L 93 L 93 L 04/07/18 04:00 04/07/18 04:01 04/07/18 04:30 Temperature Pulse Rate 73 74 86 Respiratory Rate 19 21 36 H Blood Pressure 169/62 H 185/75 H Pulse Oximetry 93 L 93 L 93 L 04/07/18 05:00 04/07/18 05:30 04/07/18 05:32 Temperature 99.6 F Pulse Rate 82 74 Respiratory Rate 26 H 22 22 Blood Pressure 189/77 H Pulse Oximetry 91 L 95 94 L 04/07/18 05:41 04/07/18 05:57 04/07/18 06:00 Temperature Pulse Rate 76 69 Respiratory Rate 22 20 21 Blood Pressure 138/63 Pulse Oximetry 94 L 04/07/18 06:30 04/07/18 07:00 04/07/18 07:30 Temperature Pulse Rate 68 70 67 Respiratory Rate 21 28 H 21 Blood Pressure 154/68 H Pulse Oximetry 94 L 92 L 95 04/07/18 08:00 04/07/18 08:30 04/07/18 09:00 Temperature 98.5 F Pulse Rate 68 67 68 Respiratory Rate 26 H 30 H 32 H Blood Pressure 162/70 H 168/73 H Pulse Oximetry 95 94 L 92 L 04/07/18 09:30 04/07/18 10:00 Temperature Pulse Rate 75 74 Respiratory Rate 28 H 23 Blood Pressure 173/74 H Pulse Oximetry 93 L 92 L Intake & Output 04/06/18 04/07/18 04/07/18 18:59 06:59 18:59 Intake Total 977 / 977 1235.1 / 1235.1 50 / 50 Output Total 2100 / 2100 2250 / 2250 Balance -1123 / -1123 -1014.9 / -1014.9 50 / 50 Weight 136 kg Intake: IV 350 / 350 673.1 / 673.1 50 / 50 Versed Inj 50 mg In 50 ml @ 2 100 / 100 84.1 / 84.1 50 / 50 MG/HR 2 mls/hr IV.CONT TITRATE PRN Rx#:[id number] Cardene Inj 25 MG In NS Inj 240 350 / 350 ML @ 5 MG/HR 50 mls/hr IV.CONT TITRATE PRN Rx#:[id number] Avycaz Inj 1.25 GM In NS Inj 50 100 / 100 ML @ 25 mls/hr IV.SIG Q8H [facility] Rx#:[id number] fentaNYL 10 mcg/mL Premix Drip 250 / 250 139 / 139 2,500 mcg In 250 ml @ 50 MCG/HR 5 mls/hr IV.SIG TITRATE PRN Rx #:[id number] Tube Feeding 477 / 477 462 / 462 Water Bolus Amount 150 / 150 100 / 100 Output: Stool 100 / 100 Urine Amount (Catheter) 2099 Indwelling Urethral Catheter 2099 Other: Date of Last Bowel Movement 04/06/18 04/07/18 04/06/18 Result Diagrams: 04/06/18 03:50 04/07/18 04:20 Imaging: Impressions Chest X-Ray 04/05/18 16:00 CONCLUSION: Bilateral airspace disease has worsened slightly since April 04. Endotracheal tube, nasogastric tube and right central line unchanged. Objective Remarks: GENERAL: 52-year-old female patient with an elevated BMI who is lying in bed orotracheally intubated. SKIN: Intertriginous lesion with erythema and satellite lesions under left breast. Skin breakdown over medial aspect of left ankle. HEAD: Atraumatic. Normocephalic. EYES: bilateral pupils sluggishly reactive. No scleral icterus. No injection or drainage. ENT: No nasal bleeding or discharge. Mucous membranes pink and moist. Tongue and lip/oral mucosa is swollen and edematous. NECK: Trachea midline. No JVD. CARDIOVASCULAR: RRR. sinus. RESPIRATORY: Diminished bibasilar with no appreciable rales. Scattered rhonchi bilaterally. GASTROINTESTINAL: Abdomen obese, soft, non-tender, nondistended OG in place. 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 Legs revealed 2+ pitting edema bilateral lower extremities. NEUROLOGICAL: Sedated, orally intubated on mechanical ventilation. Arouses minimally on lightening sedation and. moves all extremities. Assessment and Plan - Assessment and Plan Plan: Assessment: 52yF with severe ARDS and organ failure secondary to MDRO/ESBL/KPC Klebsiella and Veillonella bacteremia. remains very critically ill. does still appear to be volume overloaded combined with significant myocardial dysfunction. continue dopamine to prevent bradycardia. continue APRV mode of ventilation. continue forced diuresis. Family concerned about goals of care and if this level of care was consistent with patient's wishes. I think it is hernandez to get palliative care involved. however, it does appear that given her young age, we could successfully rehabilitate her to a functional status at least consistent with her prior functional status at her SNF, and possibly improved depending on her clinical course. Of course this would take months of rehabilitation, and will likely include trach/peg due to her severe ARDS and hypoxia. I would support aggressive measures at this point, unless it becomes clear that the patient has a strong opinion against such measures. Remains critically ill today with multiple ongoing life-threatening organ dysfunction. NEURO/PSYCH: Acute encephalopathy - secondary to hypercapnia, improving. Abnormal brain CT with 3 mm hyperdensity in central [place] Major depressive disorder NOS Chronic opioid use Encephalomalacia right cerebellum/left occipital lobe scheduled oxycodone 20mg po q4h seroquel 50mg po q8h for delirium. versed and fentanyl for goal RASS -2. Followup CT brain - . Solitary 3 mm hyperdensity in the central [place] of uncertain significance. Differential considerations include a punctate calcification and acute hemorrhage MRI brain left occipital lobe and right cerebellum. She does not meet criteria for induced therapeutic hypothermia because she is following commands post CPR. Holding nabumetone 500 mg twice daily, methocarbamol 750 mg 4 times daily and oxycodone 10 mg every 6 hours Holding gabapentin 200 mg 3 times daily Holding tizanidine 4 mg 3 times daily RESP: Acute hypercapnic and hypoxemic respiratory failure Severe ARDS Acute asthma exacerbation Healthcare associated pneumonia WISAM/OHS Prior tobacco abuse Bilateral pleural effusions right 2.2 cm. Left 1.3 cm LMA was placed in the field by EVAC. Intubated in ED 03/18 Ventilator bundle On albuterol/ipratropium aerosols every 4 hours with albuterol aerosols every 2 hours as needed for dyspnea Weaned off epoprostenol 03/23 Spontaneous breathing trials when clinically indicated. Not today. remains hypoxic on aprv. CT thorax revealed right middle lobe/lower lobe consolidation left lower lobe consolidation. Right pleural effusion 2.2 cm. Left pleural effusion 1.3 cm Methylprednisolone succinate 40 mg IV every 12 hours. Antibiotics as per below. CXR still with pulmonary edema superimposed on ARDS. wean Phigh to 24 from 28. stretch Thigh for goal I:E 6:1 [address]. repeat ABG today CT chest/abd/pelvis 03/28: biventricular enlargement, pulmonary edema. ABG and CXR in AM. CV: Hypertension Hyperlipidemia Chronic diastolic heart failure Paroxysmal atrial fibrillation on chronic anti-coagulation with warfarin Peripheral vascular disease/peripheral arterial disease Elevated troponin intermittent bradycardia Cor pulmonale biventricular dysfunction Holding home medication of clonidine 0.1 mg every 6 hours nifedipine 90 mg daily. holding carvedilol 2D echo 02/24/18ejection fraction 50%. Wall thickness upper limits of normal. Trace MR. Lactic acid cleared Continue atorvastatin 40 mg daily Doppler bilateral upper and lower extremities with subtherapeutic INR revealed no acute thrombus heparin drip. intermittent bradycardia prevents restarting home clonidine hold carvedilol prn atropine continue dopamine infusion amlodipine 10mg po daily hydralazine 100mg po q8h glycopyrrolate to 0.4mg IM q4h. continue bumex drip at 1mg/hr. continue metolazone 5mg po q12h one dose of spironolactone 25mg po today need to achieve net negative fluid balance. GI: History of GERD Chronic pancreatitis insufficiency Hypoalbuminemia vital high-protein goal 55 cc an hour per GIs recommendation Famotidine for GI prophylaxis Docusate sodium/senna 1 tablet twice daily for bowel regimen Creon home medication 3 times daily Added Reglan 10 mg IV every 8 hourly on 04/01 for high gastric residuals and decreasing fentanyl GTT as tolerated. FEN/RENAL: Acute kidney injury superimposed on CKD Chronic kidney disease stage III Hypernatremia Hypokalemia Acute severe intravascular volume overload with pulmonary edema [place] catheter was placed in the emergency department. Monitor intake and output. Monitor electrolytes and replace as indicated Creatinine is stable, though remains elevated. Diuretic plan: bumex drip stopped 04/03 metolazone 5mg po q12h continuous albumin infusion to maintain intravascular volume. ID: Acute healthcare associated pneumonia -ESBL positive Klebsiella pneumonia Veillonella species bacteremia Metronidazole 500 every 6 hours, ceftazidime/avibactam day. Started on colistin nebs per ID. Discontinue piperacillin/tazobactam 03/24 Discontinue 03/22 cefepime 2 g IV every 12 hours, azithromycin 500 mg daily and vancomycin Consultation to ID workup Veillonella species bacteremia Blood cultures 2 03/18 Veillonella spp. Repeat 03/20 no growth to date Sputum, ESBL positive Klebsiella pneumonia Pneumococcal urinary antigens, influenza a and B and chlamydia and mycoplasma all pending/negative Antibiotics per ID. HEME: Leukocytosis Chronic anemia/normocytic Chronic anti-coagulation with warfarin 4 mg daily. INR target is 2-3. Monitor CBC daily. Follow trends No indication for transfusion of blood products at this time. Discontinued heparin drip 03/22, restarted 03/26. heparin drip ENDO: Diabetes mellitus History of gout SSI q4h high scale increased levemir to 75 units SQ daily 04/05 Holding glipizide 10 mg twice daily and insulin glargine/home medication Holding allopurinol 300 mg daily/home medication MSK: Elevated BMI Osteoporosis/osteoarthritis PT evaluate and treat Okay to hold cholecalciferol 5000 units daily PROPH: SCDs for DVT prophylaxis. Heparin drip ACCESS: Right IJ CVL placed 03/19. Right axillary arterial line placed 03/19: must remain today, still critically ill. Discussed at length with patient's brother at bedside previously. Explained to him the need for tracheostomy however patient needs to be weaned down further on mechanical ventilation prior to procedure. He tells me that patient would not want tracheostomy and jail placement based on his previous discussions with her. He tells me that she was not doing well for the last 6 months prior to her current hospitalization. Discussed with patient's son on 04/06 regarding need for tracheostomy PEG tube placement and possible jail placement. Also discussed the fact that patient has previously expressed to her brother that she would not want these procedures done. He tells me that he would be the final decision-maker and wishes to talk to his family before making any decisions and was reluctant to talk further with me. Discussed with Antonieta Díaz from palliative care. Family meeting planned 04/06 with palliative care team. Critical care time 35 minutes, exclusive of separately billed procedures.
[2018-04-07] MEDS ORDERED: MEROPENEM VABORBACTAM IV.SIG SCH (14:00)
[2018-04-07] MEDS ORDERED: SODIUM CHLOR 0.9% IV.SIG SCH (14:00)
--- NOTE | 2018-04-07 14:50 | P.PNID ---
Subjective Remarks: cont to deteriorate resp hernandez, on PEEP of 16 and FiO2 70% afebrile WBC up to 20 K tolerates tube feeds diuresisng less secrtions Vabomere should be recieved tomorrow Antibiotics: avicaz colistine nebs Allergies/Adverse Reactions: Allergies ibuprofen Allergy (Severe, Verified 03/18/18 17:58) MESSES WITH KIDNEYS Sulfa (Sulfonamide Antibiotics) Allergy (Severe, Verified 03/18/18 17:58) HIVES egg Allergy (Intermediate, Verified 03/18/18 17:58) Very Upset Stomach milk Allergy (Unknown, Verified 03/18/18 17:58) Heartburn Objective Vital Signs 04/06/18 15:00 04/06/18 15:30 04/06/18 16:00 Temperature 99.5 F Pulse Rate 71 70 64 Respiratory Rate 20 20 20 Blood Pressure 166/65 H 137/56 L Pulse Oximetry 95 95 93 L 04/06/18 16:27 04/06/18 16:30 04/06/18 17:00 Temperature Pulse Rate 74 70 Respiratory Rate 20 20 20 Blood Pressure 164/63 H Pulse Oximetry 97 96 95 04/06/18 17:30 04/06/18 18:00 04/06/18 18:01 Temperature 99.2 F Pulse Rate 71 67 67 Respiratory Rate 23 20 20 Blood Pressure 148/65 H Pulse Oximetry 92 L 92 L 92 L 04/06/18 18:30 04/06/18 19:00 04/06/18 19:09 Temperature Pulse Rate 63 84 90 Respiratory Rate 20 34 H 36 H Blood Pressure 210/70 H 159/105 H Pulse Oximetry 92 L 94 L 90 L 04/06/18 19:13 04/06/18 19:30 04/06/18 20:00 Temperature 99 F Pulse Rate 85 71 75 Respiratory Rate 43 H 21 21 Blood Pressure 209/86 H 188/62 H Pulse Oximetry 92 L 92 L 93 L 04/06/18 20:01 04/06/18 20:24 04/06/18 20:30 Temperature Pulse Rate 71 84 70 Respiratory Rate 21 34 H 20 Blood Pressure 185/78 H Pulse Oximetry 93 L 94 L 93 L 04/06/18 20:45 04/06/18 21:00 04/06/18 21:01 Temperature Pulse Rate 69 71 Respiratory Rate 20 20 20 Blood Pressure 174/55 H 172/74 H Pulse Oximetry 93 L 93 L 04/06/18 21:30 04/06/18 22:00 04/06/18 22:30 Temperature Pulse Rate 67 70 71 Respiratory Rate 20 19 20 Blood Pressure 160/67 H Pulse Oximetry 94 L 93 L 95 04/06/18 23:00 04/06/18 23:29 04/06/18 23:30 Temperature Pulse Rate 72 72 Respiratory Rate 19 20 20 Blood Pressure 177/76 H Pulse Oximetry 93 L 94 L 92 L 04/07/18 00:00 04/07/18 00:30 04/07/18 00:55 Temperature 99 F Pulse Rate 72 75 Respiratory Rate 20 20 20 Blood Pressure 171/72 H Pulse Oximetry 92 L 93 L 04/07/18 01:00 04/07/18 01:30 04/07/18 02:00 Temperature Pulse Rate 71 75 73 Respiratory Rate 20 20 20 Blood Pressure 162/70 H 169/74 H Pulse Oximetry 92 L 93 L 93 L 04/07/18 02:30 04/07/18 03:00 04/07/18 03:30 Temperature Pulse Rate 73 70 72 Respiratory Rate 20 20 20 Blood Pressure 140/63 Pulse Oximetry 93 L 93 L 93 L 04/07/18 04:00 04/07/18 04:01 04/07/18 04:30 Temperature Pulse Rate 73 74 86 Respiratory Rate 19 21 36 H Blood Pressure 169/62 H 185/75 H Pulse Oximetry 93 L 93 L 93 L 04/07/18 05:00 04/07/18 05:30 04/07/18 05:32 Temperature 99.6 F Pulse Rate 82 74 Respiratory Rate 26 H 22 22 Blood Pressure 189/77 H Pulse Oximetry 91 L 95 94 L 04/07/18 05:41 04/07/18 05:57 04/07/18 06:00 Temperature Pulse Rate 76 69 Respiratory Rate 22 20 21 Blood Pressure 138/63 Pulse Oximetry 94 L 04/07/18 06:30 04/07/18 07:00 04/07/18 07:30 Temperature Pulse Rate 68 70 67 Respiratory Rate 21 28 H 21 Blood Pressure 154/68 H Pulse Oximetry 94 L 92 L 95 04/07/18 08:00 04/07/18 08:30 04/07/18 09:00 Temperature 98.5 F Pulse Rate 68 67 68 Respiratory Rate 26 H 30 H 32 H Blood Pressure 162/70 H 168/73 H Pulse Oximetry 95 94 L 92 L 04/07/18 09:30 04/07/18 10:00 04/07/18 11:00 Temperature Pulse Rate 75 74 91 H Respiratory Rate 28 H 23 24 Blood Pressure 173/74 H 177/65 H Pulse Oximetry 93 L 92 L 96 04/07/18 11:30 04/07/18 11:34 04/07/18 12:00 Temperature Pulse Rate 74 69 Respiratory Rate 21 20 Blood Pressure Pulse Oximetry 95 Intake & Output 04/06/18 04/07/18 04/07/18 18:59 06:59 18:59 Intake Total 977 / 977 1235.1 / 1235.1 350 / 350 Output Total 2099 2250 / 2250 Balance -1123 / -1123 -1014.9 / -1014.9 350 / 350 Weight 136 kg Intake: IV 350 / 350 673.1 / 673.1 350 / 350 Versed Inj 50 mg In 50 ml @ 2 100 / 100 84.1 / 84.1 100 / 100 MG/HR 2 mls/hr IV.CONT TITRATE PRN Rx#:[id number] Cardene Inj 25 MG In NS Inj 240 350 / 350 ML @ 5 MG/HR 50 mls/hr IV.CONT TITRATE PRN Rx#:[id number] Avycaz Inj 1.25 GM In NS Inj 50 100 / 100 ML @ 25 mls/hr IV.SIG Q8H JACKI Rx#:[id number] fentaNYL 10 mcg/mL Premix Drip 250 / 250 139 / 139 250 / 250 2,500 mcg In 250 ml @ 50 MCG/HR 5 mls/hr IV.SIG TITRATE PRN Rx #:[id number] Tube Feeding 477 / 477 462 / 462 Water Bolus Amount 150 / 150 100 / 100 Output: Stool 100 / 100 Urine Amount (Catheter) 2099 Indwelling Urethral Catheter 2099 Other: Date of Last Bowel Movement 04/06/18 04/07/18 04/06/18 03/24/18 16:30 Bronchial Washings - Left Lower Lobe Fungal Smear - Final No fungal elements seen 03/24/18 16:30 Bronchial Washings - Left Lower Lobe Fungal Culture - Preliminary No growth in 2 weeks 03/24/18 16:30 Bronchial Washings - Left Lower Lobe Acid Fast Bacilli Smear - Final No acid fast bacilli seen 03/24/18 16:30 Bronchial Washings - Left Lower Lobe Mycobacterial Culture - Preliminary No growth in 2 weeks 04/04/18 15:44 Sputum - Endotracheal Gram Stain - Final 04/04/18 15:44 Sputum - Endotracheal Sputum Culture - Preliminary Klebsiella pneumoniae ESBL pos Multidrug Resistant Lab - Hematology Results 04/06/18 03:50 WBC 20.2 H RBC 3.60 L Hgb 9.2 L Hct 27.9 L MCV 77.5 L MCH 25.6 L MCHC 33.1 RDW 23.5 H Plt Count 222 MPV 10.4 Neut % (Auto) 88.6 H Lymph % (Auto) 3.7 L [place] % (Auto) 7.5 Eos % (Auto) 0.0 Baso % (Auto) 0.2 Neut # (Auto) 17.9 H Lymph # (Auto) 0.7 L [place] # (Auto) 1.5 H Eos # (Auto) 0.0 Baso # (Auto) 0.0 WBC Differential . Differential Comment Auto diff final Lab - Chemistry Results 04/05/18 04/05/18 04/05/18 15:43 19:35 23:29 Sodium Potassium Chloride Carbon Dioxide Anion Gap BUN Creatinine Estimated GFR POC Glucose 367 H 340 H 312 H Random Glucose Calcium Total Bilirubin AST ALT Alkaline Phosphatase Total Protein Albumin 04/06/18 04/06/18 04/06/18 03:50 04:31 11:56 Sodium 136 Potassium 3.7 Chloride 97 L Carbon Dioxide 29.8 Anion Gap 9 BUN 110 H Creatinine 2.10 H Estimated GFR 30 L POC Glucose 293 H 210 H Random Glucose 281 H Calcium 9.3 Total Bilirubin 0.5 AST 59 H ALT 67 H Alkaline Phosphatase 89 Total Protein 6.3 L D Albumin 3.0 L 04/06/18 04/06/18 04/07/18 15:21 21:00 00:10 Sodium Potassium Chloride Carbon Dioxide Anion Gap BUN Creatinine Estimated GFR POC Glucose 277 H 236 H 201 H Random Glucose Calcium Total Bilirubin AST ALT Alkaline Phosphatase Total Protein Albumin 04/07/18 04/07/18 04/07/18 04:11 04:20 08:20 Sodium 135 L Potassium 3.7 Chloride 94 L Carbon Dioxide 31.1 Anion Gap 10 BUN 114 H Creatinine 2.02 H Estimated GFR 31 L POC Glucose 199 H 197 H Random Glucose 191 H Calcium 9.6 Total Bilirubin 0.7 AST 64 H ALT 90 H Alkaline Phosphatase 92 Total Protein 6.6 Albumin 3.0 L 04/07/18 12:55 Sodium Potassium Chloride Carbon Dioxide Anion Gap BUN Creatinine Estimated GFR POC Glucose 243 H Random Glucose Calcium Total Bilirubin AST ALT Alkaline Phosphatase Total Protein Albumin Imaging: ITS Impressions Head CT 03/18/18 18:46 CONCLUSION: 1. Solitary 3 mm hyperdensity in the central [place] of uncertain significance. Differential considerations include a punctate calcification and acute hemorrhage. 2. No acute findings in the supratentorial brain. Head MRI 03/19/18 00:00 CONCLUSION: 1. No evidence of brainstem hemorrhage. 2. Small foci of encephalomalacia in the left occipital lobe and right cerebellum 3. No evidence of acute infarct, hemorrhage, mass or edema. 4. No evidence of enhancing intra-axial or extra-axial lesions. Venous Doppler Study 03/19/18 00:00 CONCLUSION: The study is negative for bilateral lower extremity deep venous thrombosis. Foot X-Ray 03/22/18 00:00 CONCLUSION: No acute bony destructive change. Previous amputations as above. Fairly marked soft tissue swelling of the forefoot. Abdomen X-Ray 03/26/18 00:00 CONCLUSION: Abdomen/Pelvis CT 03/28/18 00:00 CONCLUSION: 1. Minimal increase in the trace bilateral pleural effusions with compressive atelectasis in both bases. 2. Gallstones in a benign-appearing gallbladder 3. I don't see evidence for colitis. 4. I don't see inflammatory changes in the abdomen. Chest CT 03/28/18 00:00 CONCLUSION: 1. Biventricular cardiomegaly with coarse interstitial changes in both lungs. A component of this could be failure 2. Trace bilateral pleural effusions larger on the right.. These have decreased slightly in the interval. Foot MRI 03/28/18 00:00 CONCLUSION: 1. Difficult exam to interpret because of extensive soft tissue swelling. No obvious osteomyelitis. 2. Nuclear medicine tagged white cell study may help. Chest X-Ray 04/05/18 16:00 CONCLUSION: Bilateral airspace disease has worsened slightly since April 4. Endotracheal tube, nasogastric tube and right central line unchanged. Physical Exam: no acute distress, morbidly obese Head: Present: normocephalic, atraumatic, prominent facial swelling Eye: Present: improved periorbital swelling no scleral icterus ENT: Present: mucous membranes moist, oropharynx clear NECK: trachea midline LUNGs: patient mechanically ventilated, clear Cardiovascular : RRR, S1, S2 no murmurs, rubs , gallops Abdominal : soft, less distended no reaction to palpation, no audfible bowel sounds no palpable organomegaly liquid stool in rectal collection system : hernandez in place with clear light yellow urine hernandez in place with small amount of clear yellow urine Extremities: edema improved, less prominent 2-3 + prominent tree bark meeks Skin : intact, dry, no rash well perfused Neurological : sedated Psychiatric : unable to assess LINE: R IJ in place - OK Assessment and Plan - Plan sp cardiac arrest Anaerobic sepsis; veillonella ? source : GI vs osteo CT and MRI diid not reveal source of her anaerobic sepsis Xrays negative, CT/MR not feasible 2/2 clincial cond'n Acute VDRF, increasing vent requirement s PNA, ESBL/ ? KPC Kleb R to zerbaxa, S acvycaz and vabomere worsening CXR worsening oxygenation growing MDRO Kleb again YOU - stable she is doing worse Persistent leukocytosis - much worse Anemia, new. No clincially apparent bleed - - cont avycaz while awaiting for vabomere - up the dose if GFR improves >30 - awaiting repeat sputum clx S to additional abx - monitor WBC - will need coloscopy after she revoeres (hem + stool and anaerobic sepsis) jeanne RN [facility] pharmacist
--- NOTE | 2018-04-07 16:38 | P.CONNP ---
<Myrtle Levi - Last Filed: 04/07/18 16:12> History of Present Illness Service: Nephrology Consult date: 04/07/18 Reason for Consult: YOU on CKD Primary Care Provider: UNKNOWN Family Provider: Juan Buenrostro MD Chief Complaint: PEA cardiac arrest History of Present Illness: This is a morbidly obese AAF who [facility]. PMH includes DM II, hypertension, hyperlipidemia, atrial fibrillation on chronic anticoagulation with warfarin, chronic diastolic heart failure, asthma, WISAM, and PVD. Her baseline creatinine appears to be 1.6-2, GFR 44. Her admission creatinine was 1.7, has varied throughout her stay, improved to 1.4, but is 2.0 today. Her BUN is 114. She is being treated for peronia with Avycaz, is followed by ID. Her blood cultures were positive on admission with Veillonella. Her sputum is positive for MDRO Klebsiella. [facility] at the [facility] she was on PO Levaquin. On exam she is intubated and unresponsive. Gtts include fentanyl, versed, and nicardipine. She is on the vent at 70% FiO2, saturations of 97%. She is also massively fluid overloaded, previously on a Bumex gtt but now on BID dosage fo 2 mg IV. She is responding to diuretics, is non oliguric. We were consulted for renal management. Palliative has followed, the family wants aggressive care. She is a full code at this time. Review of Systems unobtainable due to endotracheal tube PMFSH - History History Provided By: Medical Record, [employer] / EMT - Medical / Surgical Hx Neg / Unobtainable Medical Problems Denied: Unable to Obtain Surgical History: Unable to Obtain - Medical History Medical History: Medical History (Last Reviewed 03/21/18 @ 07:29 by Dimitri Dahl DO) Anxiety Atrial fibrillation CKD (chronic kidney disease) stage 3, GFR 30-59 ml/min Diabetes mellitus Diastolic heart failure Hx of fall Hyperlipidemia Hypertension Major depressive disorder Muscle weakness Obesity PVD (peripheral vascular disease) Respiratory failure with hypoxia - Surgical History Surgical History: Surgical History (Last Reviewed 03/21/18 @ 07:29 by Dimitri Dahl DO) H/O fasciotomy Hx of tonsillectomy S/P debridement S/P popliteal-tibial bypass Status post amputation of great toe Status post amputation of lesser toe of left foot - Family History Family History: Family History (Last Reviewed 03/21/18 @ 07:29 by Dimitri Dahl DO) Brother HTN (hypertension) Diabetes Other Family history of cardiac disorder in father - Tobacco History Smoking Status: Unknown if ever smoked - Alcohol History How Often Do You Have a Drink Containing Alcohol: Unable to Obtain - Substance Use History Substance History: Unable to Obtain - Travel History Recent Travel in the [place] Within the Last 8 Weeks: No Recent Travel Out of the Country Within the Last 8 Weeks: No - Immunization History Tetanus Immunization: Unable to Assess Hx Influenza Vaccine This Season: Unable to Assess Medications and Allergies Allergies Allergy/AdvReac Type Severity Reaction Status Date / Time ibuprofen Allergy Severe MESSES Verified 03/18/18 17:58 WITH KIDNEYS Sulfa (Sulfonamide Allergy Severe HIVES Verified 03/18/18 17:58 Antibiotics) egg Allergy Intermediate Very Upset Verified 03/18/18 17:58 Stomach milk Allergy Unknown Heartburn Verified 03/18/18 17:58 Home Medications Medication Instructions Recorded Confirmed Type allopurinol 300 mg PO DAILY 02/28/18 03/18/18 History atorvastatin 40 mg PO HS 02/28/18 03/18/18 History cholecalciferol (vitamin D3) 5,000 unit PO DAILY 02/28/18 03/18/18 History glipizide 10 mg PO BID 02/28/18 03/18/18 History insulin glargine 50 unit SUB-Q BID 02/28/18 03/18/18 History fijlgu-ablybida-adjtaiz [Creon] 1 cap PO TID 02/28/18 03/18/18 History methocarbamol 750 mg PO QID 02/28/18 03/18/18 History nifedipine 90 mg PO DAILY 02/28/18 03/18/18 History omega-3 fatty acids [Fish Oil 1,000 mg PO DAILY 02/28/18 03/18/18 History Concentrate] warfarin [Coumadin] 4 mg PO DAILY@1600 03/18/18 03/18/18 History Active Medications: Active Medications Acetaminophen (Tylenol Liq) 650 mg PO Q6H PRN PRN Reason: FEVER Albuterol (Albuterol Neb (Prn)) 2.5 mg NEB Q2HR NEB PRN PRN Reason: SHORTNESS OF BREATH/WHEEZING Last Admin: 04/07/18 05:41 Dose: 2.5 mg Amlodipine Besylate (Norvasc) 10 mg PO DAILY [facility] Last Admin: 04/07/18 08:49 Dose: 10 mg Lipase/Protease/Amylase (Hasmukh Rondon 24/76/120) 1 cap PO TID [facility] Last Admin: 04/07/18 12:54 Dose: 1 cap Artificial Tears (Genteal Severe Dry Eye Relief 0.3% Opth Gel) 1 drops EACH EYE Q8H [facility] Last Admin: 04/07/18 11:30 Dose: 1 drops Atorvastatin Calcium (Lipitor) 40 mg PO HS [facility] Last Admin: 04/06/18 20:11 Dose: 40 mg Atropine Sulfate (Atropine Inj) 0.4 mg IV.PUSH Q6H PRN PRN Reason: SYMPTOMATIC BRADYCARDIA Bacitracin (Baciguent Oint) 1 applicatio TOPICAL DAILY [facility] Last Admin: 04/07/18 10:56 Dose: 1 applicatio Bisacodyl (Dulcolax Supp) 10 mg RECTAL DAILY PRN PRN Reason: SEVERE CONSITIPATION Bumetanide (Bumex Inj) 2 mg IV.PUSH BID@0900,1800 [facility] Last Admin: 04/07/18 10:56 Dose: 2 mg Carvedilol (Coreg) 6.25 mg PO Q12HR [facility] Last Admin: 03/28/18 09:17 Dose: 6.25 mg Chlorhexidine Gluconate (Peridex 0.12% Oral Kit) 15 ml OROPHARYNG BID@0800, 2000 [facility] Last Admin: 04/07/18 10:16 Dose: 15 ml Clonidine HCl (Catapress-Tts 0.2 Mg Patch.7d) 1 patch T-DERMAL Q7D [facility] Last Admin: 04/03/18 08:39 Dose: 1 patch Colistimethate Sodium (Coly-Mycin M Neb) 150 mg INH Q12HR NEB [facility] Last Admin: 04/07/18 11:34 Dose: 150 mg Dextrose (D50w Vial) 50 ml IV.PUSH UNSCH PRN PRN Reason: PER HYPOGLYCEMIA PROTOCOL Famotidine (Pepcid) 10 mg PO BID [facility] Last Admin: 04/07/18 08:50 Dose: 10 mg Glucagon (Glucagon Inj) 1 mg OTHER UNSCH PRN PRN Reason: for Hypoglycemia Protocol Hydralazine HCl (Apresoline Inj) 20 mg IV.PUSH Q4H PRN PRN Reason: SBP>160, DBP>90 Last Admin: 03/24/18 06:10 Dose: 20 mg Hydralazine HCl (Apresoline) 100 mg PO Q8H [facility] Last Admin: 04/07/18 15:23 Dose: 100 mg Hydralazine HCl (Apresoline) 50 mg PO Q6H PRN PRN Reason: SYSTOLIC BP GREATER THAN 160 Last Admin: 04/06/18 18:40 Dose: 50 mg Heparin Sodium/Dextrose (Heparin/D5w 25,000 U/250 Ml) 25,000 unit in 250 mls @ 10 mls/hr IV.CONT TITRATE PRN; Protocol PRN Reason: Per Protocol Last Titration: 04/04/18 08:30 Dose: Infused Midazolam HCl (Versed Inj) 50 mg in 50 mls @ 2 mls/hr IV.CONT TITRATE PRN; Protocol PRN Reason: Per Protocol Last Admin: 04/07/18 12:58 Dose: 10 mg/hr, 10 mls/hr Fentanyl (Fentanyl 10 Mcg/Ml Premix Drip) 2,500 mcg in 250 mls @ 5 mls/hr IV.SIG TITRATE PRN; Protocol PRN Reason: Per Protocol Last Admin: 04/07/18 12:56 Dose: 250 mcg/hr, 25 mls/hr Dopamine HCl/Dextrose (Dopamine 400 Mg/250 Ml Premix) 400 mg in 250 mls @ 15.863 mls/hr IV.CONT TITRATE PRN; Protocol PRN Reason: Per Protocol Last Titration: 04/04/18 07:45 Dose: Infused Sodium Chloride (Ns Inj) 1,000 mls @ 10 mls/hr OTHER .Q24H [facility] Last Infusion: 04/04/18 12:00 Dose: Infused Ceftazidime/Avibactam 1.25 gm/ (Sodium Chloride) 50 mls @ 25 mls/hr IV.SIG Q8H [facility] Last Admin: 04/07/18 15:22 Dose: 25 mls/hr Meropenem 2,000 mg/ Sodium (Chloride) 250 mls @ 83.333 mls/hr IV.SIG Q8H [facility] Nicardipine HCl 25 mg/ Sodium (Chloride) 250 mls @ 50 mls/hr IV.CONT TITRATE PRN; Protocol PRN Reason: Per Protocol Last Titration: 04/07/18 06:25 Dose: 0 mg/hr, 0 mls/hr Norepinephrine Bitartrate 16 (mg/ Sodium Chloride) 250 mls @ 1.87 mls/hr IV.CONT TITRATE PRN; Protocol PRN Reason: See Protocol Last Titration: 03/25/18 07:21 Dose: 0 mcg/min, 0 mls/hr Insulin Detemir (Levemir Inj) 75 unit SQ DAILY [facility] Last Admin: 04/07/18 08:45 Dose: 75 unit Insulin Detemir (Levemir Inj) 40 unit SQ NOW [facility] Last Admin: 04/05/18 17:00 Dose: 40 unit Insulin Human Regular (Novolin R Correctional Sugar Inj) 0 units SQ Q4HR [facility]; Protocol Last Admin: 04/07/18 16:02 Dose: 15 units Lactulose (Lactulose Liq) 30 ml PO DAILY PRN PRN Reason: SEVERE CONSITIPATION Last Admin: 03/29/18 08:23 Dose: 30 ml Methylprednisolone Sodium Succinate (Solumedrol Inj) 40 mg IV.PUSH DAILY [facility] Last Admin: 04/07/18 08:43 Dose: 40 mg Metoclopramide HCl (Reglan Inj) 10 mg IV.PUSH Q8H [facility] Last Admin: 04/07/18 09:00 Dose: 10 mg Metolazone (Zaroxolyn) 5 mg PO Q12H [facility] Last Admin: 04/07/18 08:49 Dose: 5 mg Miscellaneous Medication ([facility] Pharmacy Information) 1 each OTHER DAILY PRN PRN Reason: SEE COMMENTS Oxycodone HCl (Roxicodone Intensol Liq) 20 mg PO Q4H [facility] Last Admin: 04/07/18 16:05 Dose: 20 mg Patch Removal (Remove Old Patch) 1 each T-DERMAL Q7D [facility] Last Admin: 04/03/18 08:18 Dose: 1 each Potassium Bicarb/Potassium Chloride (K-Lyte Cl Eff) 50 meq PO NOW [facility] Last Admin: 04/05/18 08:54 Dose: 50 meq Quetiapine Fumarate (Seroquel) 50 mg PO Q8HR [facility] Last Admin: 04/07/18 15:23 Dose: 50 mg Senna/Docusate Sodium (Katelynn-Colace) 1 tab PO BID [facility] Last Admin: 04/07/18 08:50 Dose: 1 tab Sennosides (Senokot) 17.2 mg PO Q12H PRN PRN Reason: Moderate Constipation Last Admin: 03/29/18 08:23 Dose: 17.2 mg Sodium Chloride (Ns Flush) 2 ml IV.FLUSH BID [facility] Last Admin: 04/07/18 10:16 Dose: 2 ml Sodium Chloride (Ns Flush) 2 ml IV.FLUSH PRN PRN PRN Reason: FLUSH AFTER USING IV ACCESS Last Admin: 03/31/18 08:07 Dose: 2 ml Terbutaline Sulfate (Brethine Inj) 1 mg SQ ONCE PRN PRN Reason: Extravasation Vitamin D (Vitamin D3) 5,000 unit PO DAILY [facility] Last Admin: 04/07/18 08:49 Dose: 5,000 unit Exam Vital signs: Vital Signs 04/06/18 16:27 04/06/18 16:30 04/06/18 17:00 Temperature Pulse Rate 74 70 Respiratory Rate 20 20 20 Blood Pressure 164/63 H Pulse Oximetry 97 96 95 04/06/18 17:30 04/06/18 18:00 04/06/18 18:01 Temperature 99.2 F Pulse Rate 71 67 67 Respiratory Rate 23 20 20 Blood Pressure 148/65 H Pulse Oximetry 92 L 92 L 92 L 04/06/18 18:30 04/06/18 19:00 04/06/18 19:09 Temperature Pulse Rate 63 84 90 Respiratory Rate 20 34 H 36 H Blood Pressure 210/70 H 159/105 H Pulse Oximetry 92 L 94 L 90 L 04/06/18 19:13 04/06/18 19:30 04/06/18 20:00 Temperature 99 F Pulse Rate 85 71 75 Respiratory Rate 43 H 21 21 Blood Pressure 209/86 H 188/62 H Pulse Oximetry 92 L 92 L 93 L 04/06/18 20:01 04/06/18 20:24 04/06/18 20:30 Temperature Pulse Rate 71 84 70 Respiratory Rate 21 34 H 20 Blood Pressure 185/78 H Pulse Oximetry 93 L 94 L 93 L 04/06/18 20:45 04/06/18 21:00 04/06/18 21:01 Temperature Pulse Rate 69 71 Respiratory Rate 20 20 20 Blood Pressure 174/55 H 172/74 H Pulse Oximetry 93 L 93 L 04/06/18 21:30 04/06/18 22:00 04/06/18 22:30 Temperature Pulse Rate 67 70 71 Respiratory Rate 20 19 20 Blood Pressure 160/67 H Pulse Oximetry 94 L 93 L 95 04/06/18 23:00 04/06/18 23:29 04/06/18 23:30 Temperature Pulse Rate 72 72 Respiratory Rate 19 20 20 Blood Pressure 177/76 H Pulse Oximetry 93 L 94 L 92 L 04/07/18 00:00 04/07/18 00:30 04/07/18 00:55 Temperature 99 F Pulse Rate 72 75 Respiratory Rate 20 20 20 Blood Pressure 171/72 H Pulse Oximetry 92 L 93 L 04/07/18 01:00 04/07/18 01:30 04/07/18 02:00 Temperature Pulse Rate 71 75 73 Respiratory Rate 20 20 20 Blood Pressure 162/70 H 169/74 H Pulse Oximetry 92 L 93 L 93 L 04/07/18 02:30 04/07/18 03:00 04/07/18 03:30 Temperature Pulse Rate 73 70 72 Respiratory Rate 20 20 20 Blood Pressure 140/63 Pulse Oximetry 93 L 93 L 93 L 04/07/18 04:00 04/07/18 04:01 04/07/18 04:30 Temperature Pulse Rate 73 74 86 Respiratory Rate 19 21 36 H Blood Pressure 169/62 H 185/75 H Pulse Oximetry 93 L 93 L 93 L 04/07/18 05:00 04/07/18 05:30 04/07/18 05:32 Temperature 99.6 F Pulse Rate 82 74 Respiratory Rate 26 H 22 22 Blood Pressure 189/77 H Pulse Oximetry 91 L 95 94 L 04/07/18 05:41 04/07/18 05:57 04/07/18 06:00 Temperature Pulse Rate 76 69 Respiratory Rate 22 20 21 Blood Pressure 138/63 Pulse Oximetry 94 L 04/07/18 06:30 04/07/18 07:00 04/07/18 07:30 Temperature Pulse Rate 68 70 67 Respiratory Rate 21 28 H 21 Blood Pressure 154/68 H Pulse Oximetry 94 L 92 L 95 04/07/18 08:00 04/07/18 08:30 04/07/18 09:00 Temperature 98.5 F Pulse Rate 68 67 68 Respiratory Rate 26 H 30 H 32 H Blood Pressure 162/70 H 168/73 H Pulse Oximetry 95 94 L 92 L 04/07/18 09:30 04/07/18 10:00 04/07/18 10:30 Temperature Pulse Rate 75 74 72 Respiratory Rate 28 H 23 26 H Blood Pressure 173/74 H Pulse Oximetry 93 L 92 L 94 L 04/07/18 11:00 04/07/18 11:30 04/07/18 11:34 Temperature Pulse Rate 91 H 75 74 Respiratory Rate 24 21 20 Blood Pressure 197/86 H Pulse Oximetry 96 95 04/07/18 12:00 04/07/18 12:01 04/07/18 12:30 Temperature 98.8 F Pulse Rate 69 68 69 Respiratory Rate 18 21 20 Blood Pressure 109/57 L 159/70 H Pulse Oximetry 96 96 96 04/07/18 13:00 04/07/18 13:30 04/07/18 14:00 Temperature Pulse Rate 76 74 99 H Respiratory Rate 22 21 21 Blood Pressure 170/74 H 166/70 H Pulse Oximetry 94 L 94 L 94 L 04/07/18 14:30 Temperature Pulse Rate 72 Respiratory Rate 21 Blood Pressure Pulse Oximetry 96 Intake & Output 04/06/18 04/07/18 04/07/18 18:59 06:59 18:59 Intake Total 977 / 977 1235.1 / 1235.1 350 / 350 Output Total 2100 / 2100 2250 / 2250 Balance -1123 / -1123 -1014.9 / -1014.9 350 / 350 Weight 136 kg Intake: IV 350 / 350 673.1 / 673.1 350 / 350 Versed Inj 50 mg In 50 ml @ 2 100 / 100 84.1 / 84.1 100 / 100 MG/HR 2 mls/hr IV.CONT TITRATE PRN Rx#:[id number] Cardene Inj 25 MG In NS Inj 240 350 / 350 ML @ 5 MG/HR 50 mls/hr IV.CONT TITRATE PRN Rx#:[id number] Avycaz Inj 1.25 GM In NS Inj 50 100 / 100 ML @ 25 mls/hr IV.SIG Q8H [facility] Rx#:[id number] fentaNYL 10 mcg/mL Premix Drip 250 / 250 139 / 139 250 / 250 2,500 mcg In 250 ml @ 50 MCG/HR 5 mls/hr IV.SIG TITRATE PRN Rx #:[id number] Tube Feeding 477 / 477 462 / 462 Water Bolus Amount 150 / 150 100 / 100 Output: Stool 100 / 100 Urine Amount (Catheter) 2099 Indwelling Urethral Catheter 2099 Other: Date of Last Bowel Movement 04/06/18 04/07/18 04/06/18 - Constitutional morbidly obese Comments: Obese AAF, intubated and sedated, unresponsive. Has massive fluid overload. - Routine HEENT Exam Head: Present: normocephalic, facial swelling Eye: Present: periorbital swelling Comments: scleral edema - Routine Neck Exam Present: supple, full ROM - Routine Respiratory Exam Present: patient mechanically ventilated, diminished air movement - Routine Cardiovascular Exam Present: RRR, S1, S2. Absent: murmur Comments: NSR with PACs - Routine Abdominal Exam Present: soft, normoactive bowel sounds - Routine Extremities Exam Present: edema Comments: scars to bilateral lower extremities, cool to touch - Routine Skin Exam Present: intact, dry, scars - Routine Neurological Exam sedated and unresponsive Results - Lab Results 04/06/18 03:50 04/07/18 04:20 Most recent lab results ABG pH 7.39 (7.380-7.420) 04/05/18 15:35 ABG pCO2 44 mmHg (38-42) H 04/05/18 15:35 ABG pO2 51 mmHG (61-120) L* 04/05/18 15:35 ABG HCO3 26 mmol/L (22-26) 04/05/18 15:35 Calcium 9.6 mg/dL (8.5-10.1) 04/07/18 04:20 Phosphorus 5.3 mg/dL (2.5-4.9) H 03/26/18 00:05 Magnesium 2.2 mg/dL (1.5-2.5) 04/02/18 05:00 - Image Kidney/bladder ultrasound: other (CT on 03/28) Assessment and Plan - Assessment (1) Acute renal failure superimposed on stage 3 chronic kidney disease Code(s): N17.9 - Acute kidney failure, unspecified; N18.3 - Chronic kidney disease, stage 3 (moderate) Status: Acute Plan: Her baseline creatinine runs 1.6-2, GFR 44. YOU most likely due to cardiac arrest and decreased renal perfusion. Her renal function is stable, however BUN is disproportionately elevated. This may be due to Solumedrol or even upper GI bleed. She is persistently anemic and has stool + for occult blood. In addition she is massively fluid overloaded. Bumex gtt was stopped. Now on intermittent dosage, 2 mg BID. Increase to TID now. She has excellent urine output. Currently with negative balance. Repeat UA. Repeat labs in AM Avoid nephrotoxic agents,dose appropriate to renal status. (2) Acute respiratory failure with hypoxemia Code(s): J96.01 - Acute respiratory failure with hypoxia Status: Acute Plan: On the vent, requiring high O2 (70%). Needs fluid removal. (3) Diabetes mellitus type 2 in obese Code(s): E11.69 - Type 2 diabetes mellitus with other specified complication; E66.9 - Obesity, unspecified Status: Chronic Plan: Maintain glucose 140-180mg/dL while hospitalized. Use insulin if needed. (4) Hypertension Code(s): I10 - Essential (primary) hypertension Status: Chronic Plan: On nicardipine gtt at this time. Monitor BP. (5) HCAP (healthcare-associated pneumonia) Code(s): J18.9 - Pneumonia, unspecified organism Status: Acute Plan: ID is following, managing antibiotics. Currently on Avycaz. s/p bronch with cultures reviewed. (6) Diastolic heart failure Code(s): I50.30 - Unspecified diastolic (congestive) heart failure Status: Acute Plan: Monitor fluid status. Continue diuresis. She had an echo previous admission with ERF <Alverto Fraser - Last Filed: 04/07/18 16:42> History of Present Illness Primary Care Provider: UNKNOWN Family Provider: Juan Buenrostro MD [facility] - Medical History Medical History: Medical History (Last Reviewed 03/21/18 @ 07:29 by Dimitri Dahl DO) Anxiety Atrial fibrillation CKD (chronic kidney disease) stage 3, GFR 30-59 ml/min Diabetes mellitus Diastolic heart failure Hx of fall Hyperlipidemia Hypertension Major depressive disorder Muscle weakness Obesity PVD (peripheral vascular disease) Respiratory failure with hypoxia - Surgical History Surgical History: Surgical History (Last Reviewed 03/21/18 @ 07:29 by Dimitri Dahl DO) H/O fasciotomy Hx of tonsillectomy S/P debridement S/P popliteal-tibial bypass Status post amputation of great toe Status post amputation of lesser toe of left foot - Family History Family History: Family History (Last Reviewed 03/21/18 @ 07:29 by Dimitri Dahl DO) Brother HTN (hypertension) Diabetes Other Family history of cardiac disorder in father Medications and Allergies Active Medications: Active Medications Acetaminophen (Tylenol Liq) 650 mg PO Q6H PRN PRN Reason: FEVER Albuterol (Albuterol Neb (Prn)) 2.5 mg NEB Q2HR NEB PRN PRN Reason: SHORTNESS OF BREATH/WHEEZING Last Admin: 04/07/18 05:41 Dose: 2.5 mg Amlodipine Besylate (Norvasc) 10 mg PO DAILY [facility] Last Admin: 04/07/18 08:49 Dose: 10 mg Lipase/Protease/Amylase (Hasmukh Rondon 24/76/120) 1 cap PO TID [facility] Last Admin: 04/07/18 12:54 Dose: 1 cap Artificial Tears (Genteal Severe Dry Eye Relief 0.3% Opth Gel) 1 drops EACH EYE Q8H [facility] Last Admin: 04/07/18 11:30 Dose: 1 drops Atorvastatin Calcium (Lipitor) 40 mg PO HS [facility] Last Admin: 04/06/18 20:11 Dose: 40 mg Atropine Sulfate (Atropine Inj) 0.4 mg IV.PUSH Q6H PRN PRN Reason: SYMPTOMATIC BRADYCARDIA Bacitracin (Baciguent Oint) 1 applicatio TOPICAL DAILY [facility] Last Admin: 04/07/18 10:56 Dose: 1 applicatio Bisacodyl (Dulcolax Supp) 10 mg RECTAL DAILY PRN PRN Reason: SEVERE CONSITIPATION Bumetanide (Bumex Inj) 2 mg IV.PUSH BID@0900,1800 [facility] Last Admin: 04/07/18 10:56 Dose: 2 mg Carvedilol (Coreg) 6.25 mg PO Q12HR [facility] Last Admin: 03/28/18 09:17 Dose: 6.25 mg Chlorhexidine Gluconate (Peridex 0.12% Oral Kit) 15 ml OROPHARYNG BID@0800, 2000 [facility] Last Admin: 04/07/18 10:16 Dose: 15 ml Clonidine HCl (Catapress-Tts 0.2 Mg Patch.7d) 1 patch T-DERMAL Q7D [facility] Last Admin: 04/03/18 08:39 Dose: 1 patch Colistimethate Sodium (Coly-Mycin M Neb) 150 mg INH Q12HR NEB [facility] Last Admin: 04/07/18 11:34 Dose: 150 mg Dextrose (D50w Vial) 50 ml IV.PUSH UNSCH PRN PRN Reason: PER HYPOGLYCEMIA PROTOCOL Famotidine (Pepcid) 10 mg PO BID [facility] Last Admin: 04/07/18 08:50 Dose: 10 mg Glucagon (Glucagon Inj) 1 mg OTHER UNSCH PRN PRN Reason: for Hypoglycemia Protocol Hydralazine HCl (Apresoline Inj) 20 mg IV.PUSH Q4H PRN PRN Reason: SBP>160, DBP>90 Last Admin: 03/24/18 06:10 Dose: 20 mg Hydralazine HCl (Apresoline) 100 mg PO Q8H [facility] Last Admin: 04/07/18 15:23 Dose: 100 mg Hydralazine HCl (Apresoline) 50 mg PO Q6H PRN PRN Reason: SYSTOLIC BP GREATER THAN 160 Last Admin: 04/06/18 18:40 Dose: 50 mg Heparin Sodium/Dextrose (Heparin/D5w 25,000 U/250 Ml) 25,000 unit in 250 mls @ 10 mls/hr IV.CONT TITRATE PRN; Protocol PRN Reason: Per Protocol Last Titration: 04/04/18 08:30 Dose: Infused Midazolam HCl (Versed Inj) 50 mg in 50 mls @ 2 mls/hr IV.CONT TITRATE PRN; Protocol PRN Reason: Per Protocol Last Admin: 04/07/18 12:58 Dose: 10 mg/hr, 10 mls/hr Fentanyl (Fentanyl 10 Mcg/Ml Premix Drip) 2,500 mcg in 250 mls @ 5 mls/hr IV.SIG TITRATE PRN; Protocol PRN Reason: Per Protocol Last Admin: 04/07/18 12:56 Dose: 250 mcg/hr, 25 mls/hr Dopamine HCl/Dextrose (Dopamine 400 Mg/250 Ml Premix) 400 mg in 250 mls @ 15.863 mls/hr IV.CONT TITRATE PRN; Protocol PRN Reason: Per Protocol Last Titration: 04/04/18 07:45 Dose: Infused Sodium Chloride (Ns Inj) 1,000 mls @ 10 mls/hr OTHER .Q24H [facility] Last Infusion: 04/04/18 12:00 Dose: Infused Ceftazidime/Avibactam 1.25 gm/ (Sodium Chloride) 50 mls @ 25 mls/hr IV.SIG Q8H [facility] Last Admin: 04/07/18 15:22 Dose: 25 mls/hr Meropenem 2,000 mg/ Sodium (Chloride) 250 mls @ 83.333 mls/hr IV.SIG Q8H [facility] Nicardipine HCl 25 mg/ Sodium (Chloride) 250 mls @ 50 mls/hr IV.CONT TITRATE PRN; Protocol PRN Reason: Per Protocol Last Titration: 04/07/18 06:25 Dose: 0 mg/hr, 0 mls/hr Norepinephrine Bitartrate 16 (mg/ Sodium Chloride) 250 mls @ 1.87 mls/hr IV.CONT TITRATE PRN; Protocol PRN Reason: See Protocol Last Titration: 03/25/18 07:21 Dose: 0 mcg/min, 0 mls/hr Insulin Detemir (Levemir Inj) 75 unit SQ DAILY [facility] Last Admin: 04/07/18 08:45 Dose: 75 unit Insulin Detemir (Levemir Inj) 40 unit SQ NOW [facility] Last Admin: 04/05/18 17:00 Dose: 40 unit Insulin Human Regular (Novolin R Correctional Sugar Inj) 0 units SQ Q4HR [facility]; Protocol Last Admin: 04/07/18 16:02 Dose: 15 units Lactulose (Lactulose Liq) 30 ml PO DAILY PRN PRN Reason: SEVERE CONSITIPATION Last Admin: 03/29/18 08:23 Dose: 30 ml Methylprednisolone Sodium Succinate (Solumedrol Inj) 40 mg IV.PUSH DAILY [facility] Last Admin: 04/07/18 08:43 Dose: 40 mg Metoclopramide HCl (Reglan Inj) 10 mg IV.PUSH Q8H [facility] Last Admin: 04/07/18 09:00 Dose: 10 mg Metolazone (Zaroxolyn) 5 mg PO Q12H [facility] Last Admin: 04/07/18 08:49 Dose: 5 mg Miscellaneous Medication ([facility] Pharmacy Information) 1 each OTHER DAILY PRN PRN Reason: SEE COMMENTS Oxycodone HCl (Roxicodone Intensol Liq) 20 mg PO Q4H [facility] Last Admin: 04/07/18 16:05 Dose: 20 mg Patch Removal (Remove Old Patch) 1 each T-DERMAL Q7D [facility] Last Admin: 04/03/18 08:18 Dose: 1 each Potassium Bicarb/Potassium Chloride (K-Lyte Cl Eff) 50 meq PO NOW [facility] Last Admin: 04/05/18 08:54 Dose: 50 meq Quetiapine Fumarate (Seroquel) 50 mg PO Q8HR [facility] Last Admin: 04/07/18 15:23 Dose: 50 mg Senna/Docusate Sodium (Katelynn-Colace) 1 tab PO BID [facility] Last Admin: 04/07/18 08:50 Dose: 1 tab Sennosides (Senokot) 17.2 mg PO Q12H PRN PRN Reason: Moderate Constipation Last Admin: 03/29/18 08:23 Dose: 17.2 mg Sodium Chloride (Ns Flush) 2 ml IV.FLUSH BID [facility] Last Admin: 04/07/18 10:16 Dose: 2 ml Sodium Chloride (Ns Flush) 2 ml IV.FLUSH PRN PRN PRN Reason: FLUSH AFTER USING IV ACCESS Last Admin: 03/31/18 08:07 Dose: 2 ml Terbutaline Sulfate (Brethine Inj) 1 mg SQ ONCE PRN PRN Reason: Extravasation Vitamin D (Vitamin D3) 5,000 unit PO DAILY [facility] Last Admin: 04/07/18 08:49 Dose: 5,000 unit Exam Vital signs: Vital Signs 04/06/18 17:00 04/06/18 17:30 04/06/18 18:00 Temperature 99.2 F Pulse Rate 70 71 67 Respiratory Rate 20 23 20 Blood Pressure 164/63 H Pulse Oximetry 95 92 L 92 L 04/06/18 18:01 04/06/18 18:30 04/06/18 19:00 Temperature Pulse Rate 67 63 84 Respiratory Rate 20 20 34 H Blood Pressure 148/65 H 210/70 H Pulse Oximetry 92 L 92 L 94 L 04/06/18 19:09 04/06/18 19:13 04/06/18 19:30 Temperature Pulse Rate 90 85 71 Respiratory Rate 36 H 43 H 21 Blood Pressure 159/105 H 209/86 H Pulse Oximetry 90 L 92 L 92 L 04/06/18 20:00 04/06/18 20:01 04/06/18 20:24 Temperature 99 F Pulse Rate 75 71 84 Respiratory Rate 21 21 34 H Blood Pressure 188/62 H 185/78 H Pulse Oximetry 93 L 93 L 94 L 04/06/18 20:30 04/06/18 20:45 04/06/18 21:00 Temperature Pulse Rate 70 69 Respiratory Rate 20 20 20 Blood Pressure 174/55 H Pulse Oximetry 93 L 93 L 04/06/18 21:01 04/06/18 21:30 04/06/18 22:00 Temperature Pulse Rate 71 67 70 Respiratory Rate 20 20 19 Blood Pressure 172/74 H 160/67 H Pulse Oximetry 93 L 94 L 93 L 04/06/18 22:30 04/06/18 23:00 04/06/18 23:29 Temperature Pulse Rate 71 72 Respiratory Rate 20 19 20 Blood Pressure 177/76 H Pulse Oximetry 95 93 L 94 L 04/06/18 23:30 04/07/18 00:00 04/07/18 00:30 Temperature 99 F Pulse Rate 72 72 75 Respiratory Rate 20 20 20 Blood Pressure 171/72 H Pulse Oximetry 92 L 92 L 93 L 04/07/18 00:55 04/07/18 01:00 04/07/18 01:30 Temperature Pulse Rate 71 75 Respiratory Rate 20 20 20 Blood Pressure 162/70 H Pulse Oximetry 92 L 93 L 04/07/18 02:00 04/07/18 02:30 04/07/18 03:00 Temperature Pulse Rate 73 73 70 Respiratory Rate 20 20 20 Blood Pressure 169/74 H 140/63 Pulse Oximetry 93 L 93 L 93 L 04/07/18 03:30 04/07/18 04:00 04/07/18 04:01 Temperature Pulse Rate 72 73 74 Respiratory Rate 20 19 21 Blood Pressure 169/62 H 185/75 H Pulse Oximetry 93 L 93 L 93 L 04/07/18 04:30 04/07/18 05:00 04/07/18 05:30 Temperature 99.6 F Pulse Rate 86 82 74 Respiratory Rate 36 H 26 H 22 Blood Pressure 189/77 H Pulse Oximetry 93 L 91 L 95 04/07/18 05:32 04/07/18 05:41 04/07/18 05:57 Temperature Pulse Rate 76 Respiratory Rate 22 22 20 Blood Pressure Pulse Oximetry 94 L 04/07/18 06:00 08/07/18 06:30 04/07/18 07:00 Temperature Pulse Rate 69 68 70 Respiratory Rate 21 21 28 H Blood Pressure 138/63 154/68 H Pulse Oximetry 94 L 94 L 92 L 04/07/18 07:30 04/07/18 08:00 04/07/18 08:30 Temperature 98.5 F Pulse Rate 67 68 67 Respiratory Rate 21 26 H 30 H Blood Pressure 162/70 H Pulse Oximetry 95 95 94 L 04/07/18 09:00 04/07/18 09:30 04/07/18 10:00 Temperature Pulse Rate 68 75 74 Respiratory Rate 32 H 28 H 23 Blood Pressure 168/73 H 173/74 H Pulse Oximetry 92 L 93 L 92 L 04/07/18 10:30 04/07/18 11:00 04/07/18 11:30 Temperature Pulse Rate 72 91 H 75 Respiratory Rate 26 H 24 21 Blood Pressure 197/86 H Pulse Oximetry 94 L 96 95 04/07/18 11:34 04/07/18 12:00 04/07/18 12:01 Temperature 98.8 F Pulse Rate 74 69 68 Respiratory Rate 20 18 21 Blood Pressure 109/57 L 159/70 H Pulse Oximetry 96 96 04/07/18 12:30 04/07/18 13:00 04/07/18 13:30 Temperature Pulse Rate 69 76 74 Respiratory Rate 20 22 21 Blood Pressure 170/74 H Pulse Oximetry 96 94 L 94 L 04/07/18 14:00 04/07/18 14:30 Temperature Pulse Rate 99 H 72 Respiratory Rate 21 21 Blood Pressure 166/70 H Pulse Oximetry 94 L 96 Intake & Output 04/06/18 04/07/18 04/07/18 18:59 06:59 18:59 Intake Total 977 / 977 1235.1 / 1235.1 350 / 350 Output Total 2100 / 2100 2250 / 2250 Balance -1123 / -1123 -1014.9 / -1014.9 350 / 350 Weight 136 kg Intake: IV 350 / 350 673.1 / 673.1 350 / 350 Versed Inj 50 mg In 50 ml @ 2 100 / 100 84.1 / 84.1 100 / 100 MG/HR 2 mls/hr IV.CONT TITRATE PRN Rx#:[id number] Cardene Inj 25 MG In NS Inj 240 350 / 350 ML @ 5 MG/HR 50 mls/hr IV.CONT TITRATE PRN Rx#:[id number] Avycaz Inj 1.25 GM In NS Inj 50 100 / 100 ML @ 25 mls/hr IV.SIG Q8H JACKI Rx#:[id number] fentaNYL 10 mcg/mL Premix Drip 250 / 250 139 / 139 250 / 250 2,500 mcg In 250 ml @ 50 MCG/HR 5 mls/hr IV.SIG TITRATE PRN Rx #:[id number] Tube Feeding 477 / 477 462 / 462 Water Bolus Amount 150 / 150 100 / 100 Output: Stool 100 / 100 Urine Amount (Catheter) 2099 Indwelling Urethral Catheter 2099 Other: Date of Last Bowel Movement 04/06/18 04/07/18 04/06/18 Results - Lab Results 04/06/18 03:50 04/07/18 04:20 Most recent lab results ABG pH 7.39 (7.380-7.420) 04/05/18 15:35 ABG pCO2 44 mmHg (38-42) H 04/05/18 15:35 ABG pO2 51 mmHG (61-120) L* 04/05/18 15:35 ABG HCO3 26 mmol/L (22-26) 04/05/18 15:35 Calcium 9.6 mg/dL (8.5-10.1) 04/07/18 04:20 Phosphorus 5.3 mg/dL (2.5-4.9) H 03/26/18 00:05 Magnesium 2.2 mg/dL (1.5-2.5) 04/02/18 05:00 Assessment and Plan - Assessment (1) Acute renal failure superimposed on stage 3 chronic kidney disease Code(s): N17.9 - Acute kidney failure, unspecified; N18.3 - Chronic kidney disease, stage 3 (moderate) Status: Acute (2) Acute respiratory failure with hypoxemia Code(s): J96.01 - Acute respiratory failure with hypoxia Status: Acute (3) Diabetes mellitus type 2 in obese Code(s): E11.69 - Type 2 diabetes mellitus with other specified complication; E66.9 - Obesity, unspecified Status: Chronic (4) Hypertension Code(s): I10 - Essential (primary) hypertension Status: Chronic (5) HCAP (healthcare-associated pneumonia) Code(s): J18.9 - Pneumonia, unspecified organism Status: Acute (6) Diastolic heart failure Code(s): I50.30 - Unspecified diastolic (congestive) heart failure Status: Acute - Attending Attestation patient was seen and examined. Agree with above assessment and plan. Continues to demonstrate fluid overload, continue diuretics. High BUN could be due to steroid and possible upper GI bleeding. On antibiotics for multidrug Klebsiella. Notes were reviewed.
[2018-04-07 17:33] LABS: Bacteria,Urine Occasional /hpf; Bilirubin,Urine Negative (Negative); Clarity,Urine Hazy (Clear); Color,Urine Yellow (Yellw/Straw); Glucose,Urine (UA) Negative (Negative); Hyaline Casts,Urine 4 /lpf (0-3); Leukocyte Esterase,Urine Moderate (Negative); Mucus,Urine Few /lpf (Occasional); Nitrite,Urine Negative (Negative); Specific Gravity,Urine 1.008 (1.002-1.035); Squamous Epithelial Cell,Urine 1 /hpf (0-5)
[2018-04-08] MEDS: Insulin NovoLIN Regular Correctional Sugar Inj SQ SCH ×7 (01:13→23:42)
[2018-04-08] MEDS: Oral Hygiene Kit OROPHARYNG SCH ×5 (01:14→23:43)
[2018-04-08] MEDS: Hypromellose 0.3% Opth Gel 10 GM Bottle EACH EYE SCH ×3 (03:16→18:27)
[2018-04-08] MEDS: Ceftazidime/Avibactam Inj 1.25 GM in Sodium Chlor 0.9% Inj 50 ML IV.SIG SCH ×3 (03:40→16:22)
--- NOTE | 2018-04-08 04:55 | XR ---
EXAM DATE: 04/08/2018 4:48 AM EDT AGE/SEX: 52 years / Female INDICATIONS: Shortness of breath. CLINICAL DATA: This is the patient's subsequent encounter. Patient reports that signs and symptoms h ave been present for 1 month and indicates a pain score of Nonresponsive. MEDICAL/SURGICAL HISTORY: Non-responsive. Non-responsive. COMPARISON: [facility] [place], CHEST 1V SINGLE AP, 04/05/2018. . FINDINGS: There is consolidation in both lower lobes, diffuse alveolar and interstitial infiltrate. Cardiomegal y, endotracheal tube and enteric tube are again seen. CONCLUSION: No interval change. Electronically signed by: Phill Finley MD 04/08/2018 4:54 AM EDT
[2018-04-08] MEDS: Midazolam 50 MG/50 ML Inj 50 MG/50 ML BAG IV.CONT PRN ×3 (06:03→22:00)
[2018-04-08] MEDS: QUEtiapine 25 MG Tablet PO SCH ×3 (06:03→21:53)
[2018-04-08 06:12] LABS: Alanine Aminotransferase 66 U/L (10-53); Albumin 2.6 g/dL (3.4-5.0); Alkaline Phosphatase 79 U/L (45-117); Anion Gap 12 meq/L (5-15); Aspartate Aminotransferase 34 U/L (15-37); Blood Urea Nitrogen 122 mg/dL (7-18); Calcium 9.4 mg/dL (8.5-10.1); Carbon Dioxide 31.4 meq/L (21.0-32.0); Chloride 94 meq/L (98-107); Glomerular Filtration Rate 33 mL/min (>89); Glucose,Random 197 mg/dL (74-106); Potassium 3.7 meq/L (3.5-5.1); Sodium 137 meq/L (136-145)
[2018-04-08] MEDS: Sod Chloride 0.9% Inj 1,000 ML OTHER SCH ×4 (08:15→10:45)
[2018-04-08] MEDS: Famotidine 20 MG Tablet PO SCH ×2 (08:29→20:15)
[2018-04-08] MEDS: metOLazone 5 MG Tablet PO SCH ×2 (08:30→20:15)
[2018-04-08] MEDS: Lipase/Protease/Amylase 24/76/120 DR Capsule PO SCH ×3 (08:30→18:26)
[2018-04-08] MEDS: MethylPREDNISolone Sod Succinate Inj 40 MG/ML Vial IV.PUSH SCH (08:31)
[2018-04-08] MEDS: amLODIPine 10 MG Tablet PO SCH (08:31)
[2018-04-08] MEDS: Senna/Docusate Sodium 8.6/50 MG Tablet PO SCH ×2 (08:31→20:15)
[2018-04-08] MEDS: Insulin Detemir Inj 1,000 UNIT/10 ML Vial SQ SCH (08:32)
[2018-04-08] MEDS: Chlorhexidine 0.12% Oral Kit 15 ML UDC OROPHARYNG SCH ×2 (08:32→20:16)
[2018-04-08] MEDS: niCARdipine Inj 25 MG in Sodium Chlor 0.9% Inj 240 ML IV.CONT PRN (08:58)
[2018-04-08] MEDS: fentaNYL 10 mcg/mL Premix Drip 2,500 MCG/250 ML BAG IV.SIG PRN ×2 (09:25→21:57)
--- NOTE | 2018-04-08 09:37 | P.PNCC ---
Subjective Subjective Remarks/Hospital Course: 52-year-old female with past medical history of diabetes mellitus, hypertension, hyperlipidemia, atrial fibrillation on chronic anticoagulation with warfarin, chronic diastolic heart failure, asthma, WISAM, peripheral vascular disease, super morbid obesity. She has been at [facility] since 03/02/18. Abeba JACOBO was called due to respiratory distress. When they arrived as she was found to be in respiratory distress with sats in the 70s. She was communicating with them and reportedly said "leave me alone". She then had PEA arrest. She received CPR reportedly 10-15 minutes and received 2 doses of epinephrine. LMA was placed by EVAC. LMA was removed and she was intubated by Dr. Daly after receiving etomidate 20 mg IV and succinylcholine. She has demonstrated purposeful movements post intubation, and is now on a propofol drip. She was recently admitted to [facility] due to hypoglycemia, fall after isolated episode of diarrhea, hypoxia requiring HFNC. She has chronic interstitial changes on CXR. Reviewed records from [facility] which indicate she completed a 7 day course of Levaquin and has been on a prednisone taper. Current CXR shows bibasilar opacities. WBC is 16 ( previously 7.9). She has acute hypercapneic and hypoxemic respiratory failure. 03/19: Afebrile. Remains on 100% FiO2 PEEP of 12. Central has been placed for access due to multiple drips. Plan MRI brain today if respiratory status improves. Does not tolerate lying flat. Likely will need epoprostenol and rotaprone 03/20: Started on epoprostenol and currently on a rotor from bed. Currently on cisatracurium drip at 1 mcg/kg/min. Diuresing well. 03/21: Weaning down epoprostenol. Remains on cisatracurium drip at 6 mcg/kg/ min. Diuresis 6 L. Saturation was improved FiO2 down to 45%. 03/22: Hypothermic overnight. Currently euthermic. Excellent response to bumetanide drip. FiO2 down to 40%. PEEP down to 8. Possible discontinue paralytic agent today. 03/23: Resting comfortable in bed in no acute distress. Afebrile. Desaturated so placed back on rotor prone bed. Creatinine slowly increasing. 03/24: Afebrile. Worsening chest x-ray it appears to be volume overloaded again. +10 L past 24 hours. Will restart on bumetanide drip. Plan for bronchoscopy today. Switch to ceftazidime/avibactam secondary to ESBL positive Klebsiella pneumonia 03/25: FiO2 to 55%. Tolerating demanding drip with -2 L past 24 hours. Bronchoscopy results pending. Positive BM. Restarting tube feeding today 03/26: Cr continues to rise, although clinically continues to appear severely volume overloaded. fio2 70%. supine all night. off nimbex. off flolan. ID managing ESBL/MDRO/KPC Klebsiella and anaerobic bacteremia. 03/27: off rotaprone bed. multiple desat episodes overnight. on 100% fio2 and PEEP 10 this AM. good diuresis with net -2L/24h. bumex drip continues. awakens and follows commands. 03/28: not diuresing as well as yesterday. wbc uptrending. 2 more episodes of bradycardia, not associated with hypoxia. however, fio2 remains severely elevated. I increased her peep to 14. still arouses and moves all extremities. high concern for ongoing infectious etiology, but with high o2 requirements and intermittent bradycardia requiring atropine, at present too unstable for repeat imaging. 03/29: ct C/A/P without overt infectious source. does demonstrate radiographic evidence of biventricular dysfunction. bedside echo today demonstrates the same , and dilated IVC without respiratory variation. off vasopressors. required atropine for a HR of 15 once overnight. still very hypoxic: changed to APRV 5:1 , 28/0, 4/0.8. SUBJECTIVE 03/30: remains on APRV with hypoxia. multiple episodes of bradycardia and a 18 second pause yesterday. trialed on dobutamine but with multiple dysrhythmias. now on low-dose dopamine to mitigate bradycardia. adequate diuresis overnight. cxr improving slightly. still remains volume overloaded, and YOU persists. 03/31: mild improvements in fio2. remains on APRV. no more bradycardia today. still on dopamine to prevent pauses/bradycardia. YOU persists, but stable. unable to diurese yesterday and now net +2L despite fluid overload. must increase forced diuresis to improve hypoxemia. 04/01: Remains sedated, orally intubated on mechanical ventilation. Being diuresed. Started on Reglan in view of high gastric residuals and decreasing fentanyl as tolerated. 04/02: Remains sedated, orally intubated on APRV mode mechanical ventilation. 04/03: Remains sedated, orally intubated on mechanical ventilation. Awaiting family meeting with palliative care to decide goals of therapy. Being diuresed. 04/04: Remains sedated, orally intubated on mechanical ventilation. Switch to PRVC mode overnight. On 50% FiO2, PEEP +8. Family deciding regarding goals of therapy. 04/05: Remains sedated, orally intubated on mechanical ventilation. PEEP increased to +10 overnight due to hypoxia. 04/06: Remains sedated, orally intubated on mechanical ventilation. Worsening oxygenation since yesterday. Chest x-ray showed fluid overload. Resume Bumex twice daily yesterday in addition to Zaroxolyn PO. 04/07: Remains sedated, orally intubated on mechanical ventilation. Diuresed. Renal function remains a concern. Started on colistin nebs per ID due to very resistant organisms in sputum. Eventually needs tracheostomy and PEG tube placement. 04/08 Patient remains sedated with Versed and Fentanyl infusion. On Cardene drip.Had T:99.7 last night. Remains on high PEEP and FIO2( PEEP:15, FIO2: 65%) Objective Vital Signs / I&O: Vital Signs 04/07/18 09:30 04/07/18 10:00 04/07/18 10:30 Temperature Pulse Rate 75 74 72 Respiratory Rate 28 H 23 26 H Blood Pressure 173/74 H Pulse Oximetry 93 L 92 L 94 L 04/07/18 11:00 04/07/18 11:30 04/07/18 11:34 Temperature Pulse Rate 91 H 75 74 Respiratory Rate 24 21 20 Blood Pressure 197/86 H Pulse Oximetry 96 95 04/07/18 12:00 04/07/18 12:01 04/07/18 12:30 Temperature 98.8 F Pulse Rate 69 68 69 Respiratory Rate 18 21 20 Blood Pressure 109/57 L 159/70 H Pulse Oximetry 96 96 96 04/07/18 13:00 04/07/18 13:30 04/07/18 14:00 Temperature Pulse Rate 76 74 73 Respiratory Rate 22 21 21 Blood Pressure 170/74 H 166/70 H Pulse Oximetry 94 L 94 L 94 L 04/07/18 14:30 04/07/18 15:00 04/07/18 15:30 Temperature Pulse Rate 72 73 72 Respiratory Rate 21 20 21 Blood Pressure 159/70 H Pulse Oximetry 96 96 96 04/07/18 16:00 04/07/18 16:10 04/07/18 16:30 Temperature 99.1 F Pulse Rate 72 70 Respiratory Rate 22 20 22 Blood Pressure 169/70 H Pulse Oximetry 95 96 96 04/07/18 17:00 04/07/18 17:30 04/07/18 18:00 Temperature Pulse Rate 72 72 73 Respiratory Rate 26 H 21 25 H Blood Pressure 163/70 H 162/70 H Pulse Oximetry 95 96 96 04/07/18 18:30 04/07/18 19:00 04/07/18 19:30 Temperature Pulse Rate 75 75 73 Respiratory Rate 20 18 16 Blood Pressure 157/67 H Pulse Oximetry 96 96 96 04/07/18 20:00 04/07/18 20:03 04/07/18 20:10 Temperature 99.7 F H Pulse Rate 76 75 Respiratory Rate 20 20 20 Blood Pressure 169/73 H Pulse Oximetry 97 97 04/07/18 20:30 04/07/18 20:37 04/07/18 21:00 Temperature Pulse Rate 74 80 80 Respiratory Rate 18 20 20 Blood Pressure 169/72 H Pulse Oximetry 97 99 04/07/18 21:30 04/07/18 21:32 04/07/18 22:00 Temperature Pulse Rate 72 72 72 Respiratory Rate 19 20 20 Blood Pressure 154/67 H 144/64 H Pulse Oximetry 98 98 97 04/07/18 22:30 04/07/18 23:00 04/07/18 23:30 Temperature Pulse Rate 75 71 65 Respiratory Rate 18 20 20 Blood Pressure 125/59 L Pulse Oximetry 99 100 99 04/08/18 00:00 04/08/18 00:03 04/08/18 00:30 Temperature 99 F Pulse Rate 59 L 66 Respiratory Rate 20 20 20 Blood Pressure 123/58 L Pulse Oximetry 100 99 99 04/08/18 01:00 04/08/18 01:30 04/08/18 02:00 Temperature Pulse Rate 67 74 73 Respiratory Rate 20 28 H 26 H Blood Pressure 132/62 Pulse Oximetry 98 98 97 04/08/18 02:01 04/08/18 02:30 04/08/18 03:00 Temperature Pulse Rate 75 83 74 Respiratory Rate 25 H 24 19 Blood Pressure 176/70 H 155/70 H Pulse Oximetry 97 96 96 04/08/18 03:30 04/08/18 03:57 04/08/18 04:00 Temperature Pulse Rate 66 84 Respiratory Rate 21 20 19 Blood Pressure 157/67 H Pulse Oximetry 100 97 98 04/08/18 04:01 04/08/18 04:30 04/08/18 05:00 Temperature Pulse Rate 82 82 73 Respiratory Rate 23 23 20 Blood Pressure 208/84 H Pulse Oximetry 98 97 98 04/08/18 05:01 04/08/18 05:30 04/08/18 06:00 Temperature Pulse Rate 73 64 78 Respiratory Rate 20 20 20 Blood Pressure 157/67 H 181/81 H Pulse Oximetry 99 100 98 04/08/18 07:45 Temperature Pulse Rate 74 Respiratory Rate 20 Blood Pressure Pulse Oximetry 96 Intake & Output 04/07/18 04/08/18 04/08/18 18:59 06:59 18:59 Intake Total 1054.1 / 1054.1 1126 / 1126 50 / 50 Output Total 2200 / 2200 2400 / 2400 Balance -1145.9 / -1145.9 -1274 / -1274 50 / 50 Weight 136 kg Intake: IV 434.1 / 434.1 650 / 650 50 / 50 Versed Inj 50 mg In 50 ml @ 2 134.1 / 134.1 100 / 100 MG/HR 2 mls/hr IV.CONT TITRATE PRN Rx#:[id number] Cardene Inj 25 MG In NS Inj 240 250 / 250 ML @ 5 MG/HR 50 mls/hr IV.CONT TITRATE PRN Rx#:[id number] Avycaz Inj 1.25 GM In NS Inj 50 50 / 50 50 / 50 50 / 50 ML @ 25 mls/hr IV.SIG Q8H JACKI Rx#:[id number] fentaNYL 10 mcg/mL Premix Drip 250 / 250 250 / 250 2,500 mcg In 250 ml @ 50 MCG/HR 5 mls/hr IV.SIG TITRATE PRN Rx #:[id number] Tube Feeding 620 / 620 416 / 416 Water Bolus Amount 60 / 60 Output: Urine 1900 / 1900 Stool 0 / 0 500 / 500 Urine Amount (Catheter) 2200 / 2200 Indwelling Urethral Catheter 2200 / 2200 Other: Date of Last Bowel Movement 04/06/18 04/08/18 Result Diagrams: 04/06/18 03:50 04/08/18 05:30 Other Results: Laboratory Results - last 12 hr 04/07/18 04/08/18 04/08/18 23:23 03:28 05:30 Sodium 137 Potassium 3.7 Chloride 94 L Carbon Dioxide 31.4 Anion Gap 12 BUN 122 H Creatinine 1.93 H Estimated GFR 33 L POC Glucose 202 H 183 H Random Glucose 197 H Calcium 9.4 Total Bilirubin 0.6 AST 34 ALT 66 H Alkaline Phosphatase 79 Total Protein 6.0 L D Albumin 2.6 L 04/08/18 08:19 Sodium Potassium Chloride Carbon Dioxide Anion Gap BUN Creatinine Estimated GFR POC Glucose 194 H Random Glucose Calcium Total Bilirubin AST ALT Alkaline Phosphatase Total Protein Albumin Imaging: Head CT 03/18/18 18:46 CONCLUSION: 1. Solitary 3 mm hyperdensity in the central [place] of uncertain significance. Differential considerations include a punctate calcification and acute hemorrhage. 2. No acute findings in the supratentorial brain. Head MRI 03/19/18 00:00 CONCLUSION: 1. No evidence of brainstem hemorrhage. 2. Small foci of encephalomalacia in the left occipital lobe and right cerebellum 3. No evidence of acute infarct, hemorrhage, mass or edema. 4. No evidence of enhancing intra-axial or extra-axial lesions. Venous Doppler Study 03/19/18 00:00 CONCLUSION: The study is negative for bilateral lower extremity deep venous thrombosis. Foot X-Ray 03/22/18 00:00 CONCLUSION: No acute bony destructive change. Previous amputations as above. Fairly marked soft tissue swelling of the forefoot. Abdomen X-Ray 03/26/18 00:00 CONCLUSION: Abdomen/Pelvis CT 03/28/18 00:00 CONCLUSION: 1. Minimal increase in the trace bilateral pleural effusions with compressive atelectasis in both bases. 2. Gallstones in a benign-appearing gallbladder 3. I don't see evidence for colitis. 4. I don't see inflammatory changes in the abdomen. Chest CT 03/28/18 00:00 CONCLUSION: 1. Biventricular cardiomegaly with coarse interstitial changes in both lungs. A component of this could be failure 2. Trace bilateral pleural effusions larger on the right.. These have decreased slightly in the interval. Foot MRI 03/28/18 00:00 CONCLUSION: 1. Difficult exam to interpret because of extensive soft tissue swelling. No obvious osteomyelitis. 2. Nuclear medicine tagged white cell study may help. Chest X-Ray 04/08/18 05:00 CONCLUSION: No interval change. Objective Remarks: GENERAL: SKIN: Warm and dry. HEAD: Normocephalic. EYES: No scleral icterus. No injection or drainage. NECK: Supple, trachea midline. No JVD or lymphadenopathy. CARDIOVASCULAR: Regular rate and rhythm without murmurs, gallops, or rubs. RESPIRATORY: Breath sounds equal bilaterally. No accessory muscle use. GASTROINTESTINAL: Abdomen soft, non-tender, nondistended. MUSCULOSKELETAL: No cyanosis, or edema. Neuro: sedated and intubated. Assessment and Plan - Assessment and Plan Plan: Assessment: 52yF with severe ARDS and organ failure secondary to MDRO/ESBL/KPC Klebsiella and Veillonella bacteremia. remains very critically ill. does still appear to be volume overloaded combined with significant myocardial dysfunction. continue dopamine to prevent bradycardia. continue APRV mode of ventilation. continue forced diuresis. Family concerned about goals of care and if this level of care was consistent with patient's wishes. I think it is hernandez to get palliative care involved. however, it does appear that given her young age, we could successfully rehabilitate her to a functional status at least consistent with her prior functional status at her SNF, and possibly improved depending on her clinical course. Of course this would take months of rehabilitation, and will likely include trach/peg due to her severe ARDS and hypoxia. I would support aggressive measures at this point, unless it becomes clear that the patient has a strong opinion against such measures. Remains critically ill today with multiple ongoing life-threatening organ dysfunction. NEURO/PSYCH: Acute encephalopathy - secondary to hypercapnia, improving. Abnormal brain CT with 3 mm hyperdensity in central [place] Major depressive disorder NOS Chronic opioid use Encephalomalacia right cerebellum/left occipital lobe scheduled oxycodone 20mg po q4h seroquel 50mg po q8h for delirium. versed and fentanyl for goal RASS -2. Monitor neuro status. Daily sedation vacation. Followup CT brain - . Solitary 3 mm hyperdensity in the central [place] of uncertain significance. Differential considerations include a punctate calcification and acute hemorrhage MRI brain left occipital lobe and right cerebellum. RESP: Acute hypercapnic and hypoxemic respiratory failure Severe ARDS Acute asthma exacerbation Healthcare associated pneumonia WISAM/OHS Prior tobacco abuse Bilateral pleural effusions right 2.2 cm. Left 1.3 cm LMA was placed in the field by EVAC. Intubated in ED 03/18 Continue with vent support keep sats >92% On albuterol/ipratropium aerosols every 4 hours with albuterol aerosols every 2 hours as needed for dyspnea Weaned off epoprostenol 03/23 On PRVC RR 20, TV 550, IT:1.10, PEEP:15, FIO2: 65%. Decrease PEEP:10 and FIO2: 60$ as romi. Check ABG. On Solumederol 40mg IV daily CT thorax revealed right middle lobe/lower lobe consolidation left lower lobe consolidation. Right pleural effusion 2.2 cm. Left pleural effusion 1.3 cm Methylprednisolone succinate 40 mg IV every 12 hours. Antibiotics as per below. CXR today showed diffuse interstitial and alveolar infiltrates chest/abd/pelvis 03/28: biventricular enlargement, pulmonary edema. CV: Hypertension Hyperlipidemia Chronic diastolic heart failure Paroxysmal atrial fibrillation on chronic anti-coagulation with warfarin Peripheral vascular disease/peripheral arterial disease Elevated troponin intermittent bradycardia Cor pulmonale biventricular dysfunction Monitor HR and BP keep MAP>65mmHg 2D echo 02/24/18ejection fraction 50%. Wall thickness upper limits of normal. Trace MR. Lactic acid cleared Continue atorvastatin 40 mg daily Doppler bilateral upper and lower extremities revealed no acute thrombus amlodipine 10mg po daily hydralazine 100mg po q8h, Clonidine patch Add Coreg 3.125 mg BID, Wean off Bianca drip GI: History of GERD Chronic pancreatitis insufficiency Hypoalbuminemia vital high-protein goal 45 cc an hour per GIs recommendation Famotidine for GI prophylaxis Docusate sodium/senna 1 tablet twice daily for bowel regimen Creon home medication 3 times daily FEN/RENAL: Acute kidney injury superimposed on CKD Chronic kidney disease stage III Hypernatremia Hypokalemia Acute severe intravascular volume overload with pulmonary edema [place] catheter was placed in the emergency department. Monitor renal function, I/O's, avoid nephrotoxins Cr: 1.93, UOP: 4.3L on Bumex 2mg TID, Zaroxolyn 5mg Q12 Renal is following- Dr. Fraser ID: Acute healthcare associated pneumonia -ESBL positive Klebsiella pneumonia Veillonella species bacteremia Metronidazole 500 every 6 hours, Avycaz, colistin nebs , Merrem per ID. Monitor for signs of infections ( Fever, WBC) Blood cultures 2 03/18 Veillonella spp. Repeat 03/20 no growth to date Sputum, ESBL positive Klebsiella pneumonia Pneumococcal urinary antigens, influenza a and B and chlamydia and mycoplasma all pending/negative Antibiotics per ID. HEME: Leukocytosis Chronic anemia/normocytic Chronic anti-coagulation with warfarin 4 mg daily. INR target is 2-3. Monitor CBC daily. Follow trends. On Heparin drip No indication for transfusion of blood products at this time. ENDO: Diabetes mellitus History of gout SSI q4h high scale Levemir 75 units SQ daily 04/05 Holding glipizide 10 mg twice daily and insulin glargine/home medication Holding allopurinol 300 mg daily/home medication MSK: Elevated BMI Osteoporosis/osteoarthritis PT evaluate and treat PROPH: SCDs for DVT prophylaxis. Heparin drip ACCESS: Right IJ CVL placed 03/19. Right axillary arterial line placed 03/19: must remain today, still critically ill. Per Dr. Major : Discussed at length with patient's brother at bedside previously. Explained to him the need for tracheostomy however patient needs to be weaned down further on mechanical ventilation prior to procedure. He tells me that patient would not want tracheostomy and longterm placement based on his previous discussions with her. He tells me that she was not doing well for the last 6 months prior to her current hospitalization. Discussed with patient's son on 04/06 regarding need for tracheostomy PEG tube placement and possible longterm placement. Also discussed the fact that patient has previously expressed to her brother that she would not want these procedures done. He tells me that he would be the final decision-maker and wishes to talk to his family before making any decisions and was reluctant to talk further with me. Discussed with Antonieta Díaz from palliative care. Family meeting planned 04/06 with palliative care team. Critical care time 30 minutes, exclusive of separately billed procedures.
--- NOTE | 2018-04-08 10:41 | P.PNNP ---
Subjective Interval history: Remains intubated. On 70% FiO2. ON Nicardipine gtt currently. Creatinine is better, although BUN is higher. <Myrtle Levi - Last Filed: 04/08/18 10:37> Physical Exam Vital signs: Vital Signs 04/07/18 11:00 04/07/18 11:30 04/07/18 11:34 Temperature Pulse Rate 91 H 75 74 Respiratory Rate 24 21 20 Blood Pressure 197/86 H Pulse Oximetry 96 95 04/07/18 12:00 04/07/18 12:01 04/07/18 12:30 Temperature 98.8 F Pulse Rate 69 68 69 Respiratory Rate 18 21 20 Blood Pressure 109/57 L 159/70 H Pulse Oximetry 96 96 96 04/07/18 13:00 04/07/18 13:30 04/07/18 14:00 Temperature Pulse Rate 76 74 73 Respiratory Rate 22 21 21 Blood Pressure 170/74 H 166/70 H Pulse Oximetry 94 L 94 L 94 L 04/07/18 14:30 04/07/18 15:00 04/07/18 15:30 Temperature Pulse Rate 72 73 72 Respiratory Rate 21 20 21 Blood Pressure 159/70 H Pulse Oximetry 96 96 96 04/07/18 16:00 04/07/18 16:10 04/07/18 16:30 Temperature 99.1 F Pulse Rate 72 70 Respiratory Rate 22 20 22 Blood Pressure 169/70 H Pulse Oximetry 95 96 96 04/07/18 17:00 04/07/18 17:30 04/07/18 18:00 Temperature Pulse Rate 72 72 73 Respiratory Rate 26 H 21 25 H Blood Pressure 163/70 H 162/70 H Pulse Oximetry 95 96 96 04/07/18 18:30 04/07/18 19:00 04/07/18 19:30 Temperature Pulse Rate 75 75 73 Respiratory Rate 20 18 16 Blood Pressure 157/67 H Pulse Oximetry 96 96 96 04/07/18 20:00 04/07/18 20:03 04/07/18 20:10 Temperature 99.7 F H Pulse Rate 76 75 Respiratory Rate 20 20 20 Blood Pressure 169/73 H Pulse Oximetry 97 97 04/07/18 20:30 04/07/18 20:37 04/07/18 21:00 Temperature Pulse Rate 74 80 80 Respiratory Rate 18 20 20 Blood Pressure 169/72 H Pulse Oximetry 97 99 08/07/18 21:30 04/07/18 21:32 04/07/18 22:00 Temperature Pulse Rate 72 72 72 Respiratory Rate 19 20 20 Blood Pressure 154/67 H 144/64 H Pulse Oximetry 98 98 97 04/07/18 22:30 04/07/18 23:00 04/07/18 23:30 Temperature Pulse Rate 75 71 65 Respiratory Rate 18 20 20 Blood Pressure 125/59 L Pulse Oximetry 99 100 99 04/08/18 00:00 04/08/18 00:03 04/08/18 00:30 Temperature 99 F Pulse Rate 59 L 66 Respiratory Rate 20 20 20 Blood Pressure 123/58 L Pulse Oximetry 100 99 99 04/08/18 01:00 04/08/18 01:30 04/08/18 02:00 Temperature Pulse Rate 67 74 73 Respiratory Rate 20 28 H 26 H Blood Pressure 132/62 Pulse Oximetry 98 98 97 04/08/18 02:01 04/08/18 02:30 04/08/18 03:00 Temperature Pulse Rate 75 83 74 Respiratory Rate 25 H 24 19 Blood Pressure 176/70 H 155/70 H Pulse Oximetry 97 96 96 04/08/18 03:30 04/08/18 03:57 04/08/18 04:00 Temperature Pulse Rate 66 84 Respiratory Rate 21 20 19 Blood Pressure 157/67 H Pulse Oximetry 100 97 98 04/08/18 04:01 04/08/18 04:30 04/08/18 05:00 Temperature Pulse Rate 82 82 73 Respiratory Rate 23 23 20 Blood Pressure 208/84 H Pulse Oximetry 98 97 98 04/08/18 05:01 04/08/18 05:30 04/08/18 06:00 Temperature Pulse Rate 73 64 78 Respiratory Rate 20 20 20 Blood Pressure 157/67 H 181/81 H Pulse Oximetry 99 100 98 04/08/18 07:45 Temperature Pulse Rate 74 Respiratory Rate 20 Blood Pressure Pulse Oximetry 96 Intake & Output 04/07/18 04/08/18 04/08/18 18:59 06:59 18:59 Intake Total 1054.1 / 1054.1 1126 / 1126 189 / 189 Output Total 2200 / 2200 2400 / 2400 Balance -1145.9 / -1145.9 -1274 / -1274 189 / 189 Weight 136 kg Intake: IV 434.1 / 434.1 650 / 650 189 / 189 Versed Inj 50 mg In 50 ml @ 2 134.1 / 134.1 100 / 100 MG/HR 2 mls/hr IV.CONT TITRATE PRN Rx#:[id number] Cardene Inj 25 MG In NS Inj 240 250 / 250 ML @ 5 MG/HR 50 mls/hr IV.CONT TITRATE PRN Rx#:[id number] Avycaz Inj 1.25 GM In NS Inj 50 50 / 50 50 / 50 50 / 50 ML @ 25 mls/hr IV.SIG Q8H [facility] Rx#:[id number] fentaNYL 10 mcg/mL Premix Drip 250 / 250 250 / 250 139 / 139 2,500 mcg In 250 ml @ 50 MCG/HR 5 mls/hr IV.SIG TITRATE PRN Rx #:[id number] Tube Feeding 620 / 620 416 / 416 Water Bolus Amount 60 / 60 Output: Urine 1900 / 1900 Stool 0 / 0 500 / 500 Urine Amount (Catheter) 2200 / 2200 Indwelling Urethral Catheter 2199 / 0 Other: Date of Last Bowel Movement 04/06/18 04/08/18 - Constitutional morbidly obese Comments: intubated, edematous. Unresponsive. - Routine Neck Exam Present: supple, full ROM - Routine Respiratory Exam Present: patient mechanically ventilated, CTA bilaterally. Absent: respiratory distress - Routine Cardiovascular Exam Present: S1, S2. Absent: murmur - Routine Abdominal Exam Present: soft, normoactive bowel sounds - Routine Extremities Exam Present: edema, amputation Comments: left TMA - Routine Skin Exam Present: intact, warm - Routine Neurological Exam sedated, unresponsive - Detailed Neurological Exam: Coma Scale Eye Opening: None Verbal Response: Sounds Motor Response: Normal flexion [place] Coma Scale Total: 7 - Routine Psychiatric Exam Present: unable to assess - Urinary Catheter Management Indwelling Urethral Catheter Cath placed during this visit: yes Reason for continuing: Hourly intake/output Insertion date: 03/18/18 Insertion time: 21:00 <Myrtle Levi - Last Filed: 04/08/18 10:37> Vital signs: Vital Signs 04/07/18 18:00 04/07/18 18:30 04/07/18 19:00 Temperature Pulse Rate 73 75 75 Respiratory Rate 25 H 20 18 Blood Pressure 162/70 H 157/67 H Pulse Oximetry 96 96 96 04/07/18 19:30 04/07/18 20:00 04/07/18 20:03 Temperature 99.7 F H Pulse Rate 73 76 Respiratory Rate 16 20 20 Blood Pressure 169/73 H Pulse Oximetry 96 97 97 04/07/18 20:10 04/07/18 20:30 04/07/18 20:37 Temperature Pulse Rate 75 74 80 Respiratory Rate 20 18 20 Blood Pressure Pulse Oximetry 97 04/07/18 21:00 04/07/18 21:30 04/07/18 21:32 Temperature Pulse Rate 80 72 72 Respiratory Rate 20 19 20 Blood Pressure 169/72 H 154/67 H Pulse Oximetry 99 98 98 04/07/18 22:00 04/07/18 22:30 04/07/18 23:00 Temperature Pulse Rate 72 75 71 Respiratory Rate 20 18 20 Blood Pressure 144/64 H 125/59 L Pulse Oximetry 97 99 100 04/07/18 23:30 04/08/18 00:00 04/08/18 00:03 Temperature 99 F Pulse Rate 65 59 L Respiratory Rate 20 20 20 Blood Pressure 123/58 L Pulse Oximetry 99 100 99 04/08/18 00:30 04/08/18 01:00 04/08/18 01:30 Temperature Pulse Rate 66 67 74 Respiratory Rate 20 20 28 H Blood Pressure 132/62 Pulse Oximetry 99 98 98 04/08/18 02:00 04/08/18 02:01 04/08/18 02:30 Temperature Pulse Rate 73 75 83 Respiratory Rate 26 H 25 H 24 Blood Pressure 176/70 H Pulse Oximetry 97 97 96 04/08/18 03:00 04/08/18 03:30 04/08/18 03:57 Temperature Pulse Rate 74 66 Respiratory Rate 19 21 20 Blood Pressure 155/70 H Pulse Oximetry 96 100 97 04/08/18 04:00 04/08/18 04:01 04/08/18 04:30 Temperature Pulse Rate 84 82 82 Respiratory Rate 19 23 23 Blood Pressure 157/67 H 208/84 H Pulse Oximetry 98 98 97 04/08/18 05:00 04/08/18 05:01 04/08/18 05:30 Temperature Pulse Rate 73 73 64 Respiratory Rate 20 20 20 Blood Pressure 157/67 H Pulse Oximetry 98 99 100 04/08/18 06:00 04/08/18 07:00 04/08/18 07:01 Temperature Pulse Rate 78 68 69 Respiratory Rate 20 20 20 Blood Pressure 181/81 H 166/71 H Pulse Oximetry 98 99 99 04/08/18 07:45 04/08/18 08:00 04/08/18 09:00 Temperature 99 F Pulse Rate 74 79 75 Respiratory Rate 20 25 H 21 Blood Pressure 182/79 H Pulse Oximetry 96 100 91 L 04/08/18 09:01 04/08/18 10:00 04/08/18 10:44 Temperature Pulse Rate 75 76 Respiratory Rate 26 H 25 H 16 Blood Pressure 178/76 H 166/74 H Pulse Oximetry 90 L 92 L 04/08/18 11:00 04/08/18 11:35 04/08/18 12:00 Temperature 100.1 F H Pulse Rate 78 73 Respiratory Rate 20 21 21 Blood Pressure 165/73 H 162/68 H Pulse Oximetry 90 L 90 L 89 L 04/08/18 13:00 04/08/18 13:11 04/08/18 14:00 Temperature Pulse Rate 76 61 Respiratory Rate 23 20 20 Blood Pressure 156/69 H Pulse Oximetry 92 L 92 L 94 L 04/08/18 14:01 04/08/18 15:00 04/08/18 15:01 Temperature Pulse Rate 61 71 70 Respiratory Rate 20 21 20 Blood Pressure 130/59 L 162/73 H Pulse Oximetry 94 L 93 L 94 L 04/08/18 16:00 Temperature 100.3 F H Pulse Rate 70 Respiratory Rate 22 Blood Pressure 138/55 L Pulse Oximetry 95 Intake & Output 04/07/18 04/08/18 04/08/18 18:59 06:59 18:59 Intake Total 1054.1 / 1054.1 1126 / 1126 969 / 969 Output Total 2200 / 2200 2400 / 2400 1100 / 1100 Balance -1145.9 / -1145.9 -1274 / -1274 -131 / -131 Weight 136 kg Intake: IV 434.1 / 434.1 650 / 650 969 / 969 Versed Inj 50 mg In 50 ml @ 2 134.1 / 134.1 100 / 100 50 / 50 MG/HR 2 mls/hr IV.CONT TITRATE PRN Rx#:[id number] Levophed Inj 16 MG In NS Inj 250 / 250 234 ML @ 2 MCG/MIN 1.87 mls/hr IV.CONT TITRATE PRN Rx#: [id number] Cardene Inj 25 MG In NS Inj 240 250 / 250 230 / 230 ML @ 5 MG/HR 50 mls/hr IV.CONT TITRATE PRN Rx#:[id number] Avycaz Inj 1.25 GM In NS Inj 50 50 / 50 50 / 50 50 / 50 ML @ 25 mls/hr IV.SIG Q8H [facility] Rx#:[id number] Vabomere Inj 2,000 MG In NS Inj 250 / 250 250 ML @ 83.333 mls/hr IV.SIG Q8H [facility] Rx#:[id number] fentaNYL 10 mcg/mL Premix Drip 250 / 250 250 / 250 139 / 139 2,500 mcg In 250 ml @ 50 MCG/HR 5 mls/hr IV.SIG TITRATE PRN Rx #:[id number] Tube Feeding 620 / 620 416 / 416 Water Bolus Amount 60 / 60 Output: Urine 1900 / 1900 Stool 0 / 0 500 / 500 Urine Amount (Catheter) 2200 / 2200 1100 / 1100 Indwelling Urethral Catheter 2200 / 2200 1100 / 1100 Other: Date of Last Bowel Movement 04/06/18 04/08/18 04/06/18 - Urinary Catheter Management Indwelling Urethral Catheter Cath placed during this visit: no <Alverto Fraser - Last Filed: 04/08/18 17:37> Assessment and Plan - Assessment (1) Acute renal failure superimposed on stage 3 chronic kidney disease Code(s): N17.9 - Acute kidney failure, unspecified; N18.3 - Chronic kidney disease, stage 3 (moderate) Status: Acute Plan: Her baseline creatinine runs 1.6-2, GFR 44. YOU most likely due to cardiac arrest and decreased renal perfusion. Her creatinine has improved, seh is non oliguric and responding to diuretics. High and disproportionately elevated BUN is most likey due to combination of Solumedrol, upper GI bleed, and aggressive diuresis. On Bumex TID 2 mg. Also on PO metolazone. Goal is negative balance. Repeat labs daily. Avoid nephrotoxic agents,dose appropriate to renal status. (2) Acute respiratory failure with hypoxemia Code(s): J96.01 - Acute respiratory failure with hypoxia Status: Acute Plan: On the vent, requiring high O2 (70%). Continue fluid removal. (3) Diabetes mellitus type 2 in obese Code(s): E11.69 - Type 2 diabetes mellitus with other specified complication; E66.9 - Obesity, unspecified Status: Chronic Plan: Maintain glucose 140-180mg/dL while hospitalized. Use insulin if needed. (4) Hypertension Code(s): I10 - Essential (primary) hypertension Status: Chronic Plan: On nicardipine gtt at this time. Monitor BP. (5) HCAP (healthcare-associated pneumonia) Code(s): J18.9 - Pneumonia, unspecified organism Status: Acute Plan: ID is following, managing antibiotics. Currently on Avycaz. s/p bronch with cultures reviewed. (6) Diastolic heart failure Code(s): I50.30 - Unspecified diastolic (congestive) heart failure Status: Acute Plan: Monitor fluid status. Continue diuresis. She had an echo previous admission with ERF <Myrtle Levi - Last Filed: 04/08/18 10:37> - Assessment (1) Acute renal failure superimposed on stage 3 chronic kidney disease Code(s): N17.9 - Acute kidney failure, unspecified; N18.3 - Chronic kidney disease, stage 3 (moderate) Status: Acute (2) Acute respiratory failure with hypoxemia Code(s): J96.01 - Acute respiratory failure with hypoxia Status: Acute (3) Diabetes mellitus type 2 in obese Code(s): E11.69 - Type 2 diabetes mellitus with other specified complication; E66.9 - Obesity, unspecified Status: Chronic (4) Hypertension Code(s): I10 - Essential (primary) hypertension Status: Chronic (5) HCAP (healthcare-associated pneumonia) Code(s): J18.9 - Pneumonia, unspecified organism Status: Acute (6) Diastolic heart failure Code(s): I50.30 - Unspecified diastolic (congestive) heart failure Status: Acute - Attending Attestation patient was seen and examined. Agree with above assessment and plan. Higher BUN due to steroid, diuresis. <Alverto Fraser - Last Filed: 04/08/18 17:37>
[2018-04-08] MEDS: SODIUM CHLOR 0.9% IV.SIG SCH ×2 (10:53→19:00)
[2018-04-08] MEDS: MEROPENEM VABORBACTAM IV.SIG SCH ×2 (10:53→19:00)
[2018-04-08 12:29] LABS: ABG Base Excess 4.5 mmol/L (-2-2); ABG PCO2 46 mmHg (38-42); ABG PO2 58 mmHG (61-120)
[2018-04-08 16:17] LABS: Baso % (Auto) 0.3 % (0.0-2.0); Hematocrit 24.4 % (35.0-46.0); Hemoglobin 8.2 gm/dL (11.6-15.3); Lymph # (Auto) 0.2 th/mm3 (1.0-4.8); Lymph % (Auto) 1.7 % (9.0-44.0); Mean Corpuscular HGB Conc 33.6 % (32.0-36.0); Mean Corpuscular Hemoglobin 26.7 pg (27.0-34.0); Mean Corpuscular Volume 79.5 fL (80.0-100.0); Mean Platelet Volume 9.3 fL (7.0-11.0); Mono # (Auto) 0.2 th/mm3 (0.0-0.9); Mono % (Auto) 1.5 % (0.0-8.0); Neut # (Auto) 10.2 th/mm3 (1.8-7.7); Neut % (Auto) 96.5 % (16.0-70.0); Platelet Count 169 th/mm3 (150-450); Red Blood Count 3.07 mil/mm3 (4.00-5.30); Red Cell Distribution Width 23.9 % (11.6-17.2); White Blood Count 10.6 th/mm3 (4.0-11.0)
--- NOTE | 2018-04-08 19:17 | P.PNID ---
Subjective Remarks: remains on vent, on PEEP of 12 and FiO2 80% afebrile WBC down to 10 K tolerates tube feeds diuresisng less secrtions Isolate stil S to avicaz Antibiotics: avicaz colistine nebs Allergies/Adverse Reactions: Allergies ibuprofen Allergy (Severe, Verified 03/18/18 17:58) MESSES WITH KIDNEYS Sulfa (Sulfonamide Antibiotics) Allergy (Severe, Verified 03/18/18 17:58) HIVES egg Allergy (Intermediate, Verified 03/18/18 17:58) Very Upset Stomach milk Allergy (Unknown, Verified 03/18/18 17:58) Heartburn Objective Vital Signs 04/07/18 19:30 04/07/18 20:00 04/07/18 20:03 Temperature 99.7 F H Pulse Rate 73 76 Respiratory Rate 16 20 20 Blood Pressure 169/73 H Pulse Oximetry 96 97 97 04/07/18 20:10 04/07/18 20:30 04/07/18 20:37 Temperature Pulse Rate 75 74 80 Respiratory Rate 20 18 20 Blood Pressure Pulse Oximetry 97 04/07/18 21:00 04/07/18 21:30 04/07/18 21:32 Temperature Pulse Rate 80 72 72 Respiratory Rate 20 19 20 Blood Pressure 169/72 H 154/67 H Pulse Oximetry 99 98 98 04/07/18 22:00 04/07/18 22:30 04/07/18 23:00 Temperature Pulse Rate 72 75 71 Respiratory Rate 20 18 20 Blood Pressure 144/64 H 125/59 L Pulse Oximetry 97 99 100 04/07/18 23:30 04/08/18 00:00 04/08/18 00:03 Temperature 99 F Pulse Rate 65 59 L Respiratory Rate 20 20 20 Blood Pressure 123/58 L Pulse Oximetry 99 100 99 04/08/18 00:30 04/08/18 01:00 04/08/18 01:30 Temperature Pulse Rate 66 67 74 Respiratory Rate 20 20 28 H Blood Pressure 132/62 Pulse Oximetry 99 98 98 04/08/18 02:00 04/08/18 02:01 04/08/18 02:30 Temperature Pulse Rate 73 75 83 Respiratory Rate 26 H 25 H 24 Blood Pressure 176/70 H Pulse Oximetry 97 97 96 04/08/18 03:00 04/08/18 03:30 04/08/18 03:57 Temperature Pulse Rate 74 66 Respiratory Rate 19 21 20 Blood Pressure 155/70 H Pulse Oximetry 96 100 97 04/08/18 04:00 04/08/18 04:01 04/08/18 04:30 Temperature Pulse Rate 84 82 82 Respiratory Rate 19 23 23 Blood Pressure 157/67 H 208/84 H Pulse Oximetry 98 98 97 04/08/18 05:00 04/08/18 05:01 04/08/18 05:30 Temperature Pulse Rate 73 73 64 Respiratory Rate 20 20 20 Blood Pressure 157/67 H Pulse Oximetry 98 99 100 04/08/18 06:00 04/08/18 07:00 04/08/18 07:01 Temperature Pulse Rate 78 68 69 Respiratory Rate 20 20 20 Blood Pressure 181/81 H 166/71 H Pulse Oximetry 98 99 99 04/08/18 07:45 04/08/18 08:00 04/08/18 09:00 Temperature 99 F Pulse Rate 74 79 75 Respiratory Rate 20 25 H 21 Blood Pressure 182/79 H Pulse Oximetry 96 100 91 L 04/08/18 09:01 04/08/18 10:00 04/08/18 10:44 Temperature Pulse Rate 75 76 Respiratory Rate 26 H 25 H 16 Blood Pressure 178/76 H 166/74 H Pulse Oximetry 90 L 92 L 04/08/18 11:00 04/08/18 11:35 04/08/18 12:00 Temperature 100.1 F H Pulse Rate 78 73 Respiratory Rate 20 21 21 Blood Pressure 165/73 H 162/68 H Pulse Oximetry 90 L 90 L 89 L 04/08/18 13:00 04/08/18 13:11 04/08/18 14:00 Temperature Pulse Rate 76 61 Respiratory Rate 23 20 20 Blood Pressure 156/69 H Pulse Oximetry 92 L 92 L 94 L 04/08/18 14:01 04/08/18 15:00 04/08/18 15:01 Temperature Pulse Rate 61 71 70 Respiratory Rate 20 21 20 Blood Pressure 130/59 L 162/73 H Pulse Oximetry 94 L 93 L 94 L 04/08/18 16:00 Temperature 100.3 F H Pulse Rate 70 Respiratory Rate 22 Blood Pressure 138/55 L Pulse Oximetry 95 Intake & Output 04/08/18 04/08/18 04/09/18 06:59 18:59 06:59 Intake Total 1126 / 1126 1573 / 1573 Output Total 2400 / 2400 2300 / 2300 Balance -1274 / -1274 -727 / -727 Weight 136 kg Intake: IV 650 / 650 969 / 969 Versed Inj 50 mg In 50 ml @ 2 100 / 100 50 / 50 MG/HR 2 mls/hr IV.CONT TITRATE PRN Rx#:[id number] Levophed Inj 16 MG In NS Inj 250 / 250 234 ML @ 2 MCG/MIN 1.87 mls/hr IV.CONT TITRATE PRN Rx#: [id number] Cardene Inj 25 MG In NS Inj 240 250 / 250 230 / 230 ML @ 5 MG/HR 50 mls/hr IV.CONT TITRATE PRN Rx#:[id number] Avycaz Inj 1.25 GM In NS Inj 50 50 / 50 50 / 50 ML @ 25 mls/hr IV.SIG Q8H [facility] Rx#:[id number] Vabomere Inj 2,000 MG In NS Inj 250 / 250 250 ML @ 83.333 mls/hr IV.SIG Q8H [facility] Rx#:[id number] fentaNYL 10 mcg/mL Premix Drip 250 / 250 139 / 139 2,500 mcg In 250 ml @ 50 MCG/HR 5 mls/hr IV.SIG TITRATE PRN Rx #:[id number] Tube Feeding 416 / 416 574 / 574 Water Bolus Amount 60 / 60 30 / 30 Output: Urine 1900 / 1900 Stool 500 / 500 0 / 0 Urine Amount (Catheter) 2300 / 2300 Indwelling Urethral Catheter 2300 / 2300 Other: Date of Last Bowel Movement 04/08/18 04/08/18 04/04/18 15:44 Sputum - Endotracheal Gram Stain - Final 04/04/18 15:44 Sputum - Endotracheal Sputum Culture - Final Klebsiella pneumoniae ESBL pos Multidrug Resistant 03/24/18 16:30 Bronchial Washings - Left Lower Lobe Fungal Smear - Final No fungal elements seen 03/24/18 16:30 Bronchial Washings - Left Lower Lobe Fungal Culture - Preliminary No growth in 2 weeks 03/24/18 16:30 Bronchial Washings - Left Lower Lobe Acid Fast Bacilli Smear - Final No acid fast bacilli seen 03/24/18 16:30 Bronchial Washings - Left Lower Lobe Mycobacterial Culture - Preliminary No growth in 2 weeks Lab - Hematology Results 08/08/18 15:50 WBC 10.6 RBC 3.07 L Hgb 8.2 L Hct 24.4 L MCV 79.5 L MCH 26.7 L MCHC 33.6 RDW 23.9 H Plt Count 169 MPV 9.3 Neut % (Auto) 96.5 H Lymph % (Auto) 1.7 L Moca % (Auto) 1.5 Eos % (Auto) 0.0 Baso % (Auto) 0.3 Neut # (Auto) 10.2 H Lymph # (Auto) 0.2 L Moca # (Auto) 0.2 Eos # (Auto) 0.0 Baso # (Auto) 0.0 WBC Differential . Differential Comment Auto diff final Lab - Chemistry Results 04/06/18 04/07/18 04/07/18 21:00 00:10 04:11 Sodium Potassium Chloride Carbon Dioxide Anion Gap BUN Creatinine Estimated GFR POC Glucose 236 H 201 H 199 H Random Glucose Calcium Total Bilirubin AST ALT Alkaline Phosphatase Total Protein Albumin 04/07/18 04/07/18 04/07/18 04:20 08:20 12:55 Sodium 135 L Potassium 3.7 Chloride 94 L Carbon Dioxide 31.1 Anion Gap 10 BUN 114 H Creatinine 2.02 H Estimated GFR 31 L POC Glucose 197 H 243 H Random Glucose 191 H Calcium 9.6 Total Bilirubin 0.7 AST 64 H ALT 90 H Alkaline Phosphatase 92 Total Protein 6.6 Albumin 3.0 L 04/07/18 04/07/18 04/07/18 15:58 20:04 23:23 Sodium Potassium Chloride Carbon Dioxide Anion Gap BUN Creatinine Estimated GFR POC Glucose 251 H 212 H 202 H Random Glucose Calcium Total Bilirubin AST ALT Alkaline Phosphatase Total Protein Albumin 04/08/18 04/08/18 04/08/18 03:28 05:30 08:19 Sodium 137 Potassium 3.7 Chloride 94 L Carbon Dioxide 31.4 Anion Gap 12 BUN 122 H Creatinine 1.93 H Estimated GFR 33 L POC Glucose 183 H 194 H Random Glucose 197 H Calcium 9.4 Total Bilirubin 0.6 AST 34 ALT 66 H Alkaline Phosphatase 79 Total Protein 6.0 L D Albumin 2.6 L 04/08/18 04/08/18 11:45 15:56 Sodium Potassium Chloride Carbon Dioxide Anion Gap BUN Creatinine Estimated GFR POC Glucose 198 H 247 H Random Glucose Calcium Total Bilirubin AST ALT Alkaline Phosphatase Total Protein Albumin Imaging: ITS Impressions Head CT 03/18/18 18:46 CONCLUSION: 1. Solitary 3 mm hyperdensity in the central [place] of uncertain significance. Differential considerations include a punctate calcification and acute hemorrhage. 2. No acute findings in the supratentorial brain. Head MRI 03/19/18 00:00 CONCLUSION: 1. No evidence of brainstem hemorrhage. 2. Small foci of encephalomalacia in the left occipital lobe and right cerebellum 3. No evidence of acute infarct, hemorrhage, mass or edema. 4. No evidence of enhancing intra-axial or extra-axial lesions. Venous Doppler Study 03/19/18 00:00 CONCLUSION: The study is negative for bilateral lower extremity deep venous thrombosis. Foot X-Ray 03/22/18 00:00 CONCLUSION: No acute bony destructive change. Previous amputations as above. Fairly marked soft tissue swelling of the forefoot. Abdomen X-Ray 03/26/18 00:00 CONCLUSION: Abdomen/Pelvis CT 03/28/18 00:00 CONCLUSION: 1. Minimal increase in the trace bilateral pleural effusions with compressive atelectasis in both bases. 2. Gallstones in a benign-appearing gallbladder 3. I don't see evidence for colitis. 4. I don't see inflammatory changes in the abdomen. Chest CT 03/28/18 00:00 CONCLUSION: 1. Biventricular cardiomegaly with coarse interstitial changes in both lungs. A component of this could be failure 2. Trace bilateral pleural effusions larger on the right.. These have decreased slightly in the interval. Foot MRI 03/28/18 00:00 CONCLUSION: 1. Difficult exam to interpret because of extensive soft tissue swelling. No obvious osteomyelitis. 2. Nuclear medicine tagged white cell study may help. Chest X-Ray 04/08/18 05:00 CONCLUSION: No interval change. Physical Exam: no acute distress, morbidly obese Head: Present: normocephalic, atraumatic, prominent facial swelling Eye: Present: improved periorbital swelling no scleral icterus ENT: Present: mucous membranes moist, oropharynx clear NECK: trachea midline LUNGs: patient mechanically ventilated, clear Cardiovascular : RRR, S1, S2 no murmurs, rubs , gallops Abdominal : soft, less distended no reaction to palpation, no audfible bowel sounds no palpable organomegaly liquid stool in rectal collection system : hernandez in place with clear light yellow urine hernandez in place with small amount of clear yellow urine Extremities: edema improved, less prominent 1-2 prominent tree bark meeks Skin : intact, dry, no rash well perfused Neurological : sedated Psychiatric : unable to assess LINE: R IJ in place - OK Assessment and Plan - Plan sp cardiac arrest Anaerobic sepsis; veillonella ? source : GI vs osteo CT and MRI diid not reveal source of her anaerobic sepsis Xrays negative, CT/MR not feasible 2/2 clincial cond'n Acute VDRF, increasing vent requirement s - difficulty weaning PNA, ESBL/ ? [facility] Kleb R to zerbaxa, S acvycaz and vabomere worsening CXR worsening oxygenation growing MDRO Kleb again YOU - stable she is doing worse Persistent leukocytosis - much worse Anemia, new. No clincially apparent bleed - - cont avycaz while awaiting for vabomere - up the dose if GFR improves >30 - awaiting repeat sputum clx S to additional abx - monitor WBC - will need coloscopy after she revoeres (hem + stool and anaerobic sepsis) jeanne RN d
[2018-04-08] MEDS ORDERED: Cathflo Activase Inj 2 MG Vial I-CATHETER ONE (22:45)
[2018-04-09] MEDS: Hypromellose 0.3% Opth Gel 10 GM Bottle EACH EYE SCH ×3 (02:41→20:16)
[2018-04-09] MEDS: SODIUM CHLOR 0.9% IV.SIG SCH ×3 (02:41→19:04)
[2018-04-09] MEDS: MEROPENEM VABORBACTAM IV.SIG SCH ×3 (02:41→19:04)
[2018-04-09] MEDS: Ceftazidime/Avibactam Inj 1.25 GM in Sodium Chlor 0.9% Inj 50 ML IV.SIG SCH ×2 (04:25→16:20)
[2018-04-09] MEDS: Oral Hygiene Kit OROPHARYNG SCH ×3 (04:26→16:51)
[2018-04-09] MEDS: Insulin NovoLIN Regular Correctional Sugar Inj SQ SCH ×5 (04:32→20:35)
[2018-04-09] MEDS: Midazolam 50 MG/50 ML Inj 50 MG/50 ML BAG IV.CONT PRN (04:55)
[2018-04-09] MEDS: QUEtiapine 25 MG Tablet PO SCH ×3 (05:36→22:42)
[2018-04-09 05:39] LABS: Baso % (Auto) 0.2 % (0.0-2.0); Eos % (Auto) 0.1 % (0.0-4.0); Hematocrit 24.4 % (35.0-46.0); Lymph # (Auto) 0.7 th/mm3 (1.0-4.8); Lymph % (Auto) 5.4 % (9.0-44.0); Mean Corpuscular HGB Conc 32.7 % (32.0-36.0); Mean Corpuscular Volume 79.5 fL (80.0-100.0); Mean Platelet Volume 9.8 fL (7.0-11.0); Mono # (Auto) 1.3 th/mm3 (0.0-0.9); Mono % (Auto) 10.5 % (0.0-8.0); Neut # (Auto) 10.2 th/mm3 (1.8-7.7); Neut % (Auto) 83.8 % (16.0-70.0); Platelet Count 173 th/mm3 (150-450); Red Blood Count 3.06 mil/mm3 (4.00-5.30); Red Cell Distribution Width 24.4 % (11.6-17.2); White Blood Count 12.2 th/mm3 (4.0-11.0)
[2018-04-09 06:02] LABS: Alanine Aminotransferase 60 U/L (10-53); Albumin 2.7 g/dL (3.4-5.0); Anion Gap 13 meq/L (5-15); Aspartate Aminotransferase 31 U/L (15-37); Blood Urea Nitrogen 128 mg/dL (7-18); Calcium 9.7 mg/dL (8.5-10.1); Carbon Dioxide 30.1 meq/L (21.0-32.0); Chloride 95 meq/L (98-107); Glomerular Filtration Rate 35 mL/min (>89); Glucose,Random 145 mg/dL (74-106); Potassium 3.5 meq/L (3.5-5.1); Sodium 138 meq/L (136-145)
[2018-04-09 06:05] LABS: Alkaline Phosphatase 85 U/L (45-117); Total Protein 6.4 g/dL (6.4-8.2)
[2018-04-09] MEDS: fentaNYL 10 mcg/mL Premix Drip 2,500 MCG/250 ML BAG IV.SIG PRN (07:47)
--- NOTE | 2018-04-09 08:32 | P.PNCC ---
Subjective Subjective Remarks/Hospital Course: 52-year-old female with past medical history of diabetes mellitus, hypertension, hyperlipidemia, atrial fibrillation on chronic anticoagulation with warfarin, chronic diastolic heart failure, asthma, WISAM, peripheral vascular disease, super morbid obesity. She has been at [facility] since 03/02/18. Abeba JACOBO was called due to respiratory distress. When they arrived as she was found to be in respiratory distress with sats in the 70s. She was communicating with them and reportedly said "leave me alone". She then had PEA arrest. She received CPR reportedly 10-15 minutes and received 2 doses of epinephrine. LMA was placed by EVAC. LMA was removed and she was intubated by Dr. Daly after receiving etomidate 20 mg IV and succinylcholine. She has demonstrated purposeful movements post intubation, and is now on a propofol drip. She was recently admitted to [facility] [place] due to hypoglycemia, fall after isolated episode of diarrhea, hypoxia requiring HFNC. She has chronic interstitial changes on CXR. Reviewed records from [facility] which indicate she completed a 7 day course of Levaquin and has been on a prednisone taper. Current CXR shows bibasilar opacities. WBC is 16 ( previously 7.9). She has acute hypercapneic and hypoxemic respiratory failure. 03/19: Afebrile. Remains on 100% FiO2 PEEP of 12. Central has been placed for access due to multiple drips. Plan MRI brain today if respiratory status improves. Does not tolerate lying flat. Likely will need epoprostenol and rotaprone 03/20: Started on epoprostenol and currently on a rotor from bed. Currently on cisatracurium drip at 1 mcg/kg/min. Diuresing well. 03/21: Weaning down epoprostenol. Remains on cisatracurium drip at 6 mcg/kg/ min. Diuresis 6 L. Saturation was improved FiO2 down to 45%. 03/22: Hypothermic overnight. Currently euthermic. Excellent response to bumetanide drip. FiO2 down to 40%. PEEP down to 8. Possible discontinue paralytic agent today. 03/23: Resting comfortable in bed in no acute distress. Afebrile. Desaturated so placed back on rotor prone bed. Creatinine slowly increasing. 03/24: Afebrile. Worsening chest x-ray it appears to be volume overloaded again. +10 L past 24 hours. Will restart on bumetanide drip. Plan for bronchoscopy today. Switch to ceftazidime/avibactam secondary to ESBL positive Klebsiella pneumonia 03/25: FiO2 to 55%. Tolerating demanding drip with -2 L past 24 hours. Bronchoscopy results pending. Positive BM. Restarting tube feeding today 03/26: Cr continues to rise, although clinically continues to appear severely volume overloaded. fio2 70%. supine all night. off nimbex. off flolan. ID managing ESBL/MDRO/KPC Klebsiella and anaerobic bacteremia. 03/27: off rotaprone bed. multiple desat episodes overnight. on 100% fio2 and PEEP 10 this AM. good diuresis with net -2L/24h. bumex drip continues. awakens and follows commands. 03/28: not diuresing as well as yesterday. wbc uptrending. 2 more episodes of bradycardia, not associated with hypoxia. however, fio2 remains severely elevated. I increased her peep to 14. still arouses and moves all extremities. high concern for ongoing infectious etiology, but with high o2 requirements and intermittent bradycardia requiring atropine, at present too unstable for repeat imaging. 03/29: ct C/A/P without overt infectious source. does demonstrate radiographic evidence of biventricular dysfunction. bedside echo today demonstrates the same , and dilated IVC without respiratory variation. off vasopressors. required atropine for a HR of 15 once overnight. still very hypoxic: changed to APRV 5:1 , 28/0, 4/0.8. SUBJECTIVE 03/30: remains on APRV with hypoxia. multiple episodes of bradycardia and a 18 second pause yesterday. trialed on dobutamine but with multiple dysrhythmias. now on low-dose dopamine to mitigate bradycardia. adequate diuresis overnight. cxr improving slightly. still remains volume overloaded, and YOU persists. 03/31: mild improvements in fio2. remains on APRV. no more bradycardia today. still on dopamine to prevent pauses/bradycardia. YOU persists, but stable. unable to diurese yesterday and now net +2L despite fluid overload. must increase forced diuresis to improve hypoxemia. 04/01: Remains sedated, orally intubated on mechanical ventilation. Being diuresed. Started on Reglan in view of high gastric residuals and decreasing fentanyl as tolerated. 04/02: Remains sedated, orally intubated on APRV mode mechanical ventilation. 04/03: Remains sedated, orally intubated on mechanical ventilation. Awaiting family meeting with palliative care to decide goals of therapy. Being diuresed. 04/04: Remains sedated, orally intubated on mechanical ventilation. Switch to PRVC mode overnight. On 50% FiO2, PEEP +8. Family deciding regarding goals of therapy. 04/05: Remains sedated, orally intubated on mechanical ventilation. PEEP increased to +10 overnight due to hypoxia. 04/06: Remains sedated, orally intubated on mechanical ventilation. Worsening oxygenation since yesterday. Chest x-ray showed fluid overload. Resume Bumex twice daily yesterday in addition to Zaroxolyn PO. 04/07: Remains sedated, orally intubated on mechanical ventilation. Diuresed. Renal function remains a concern. Started on colistin nebs per ID due to very resistant organisms in sputum. Eventually needs tracheostomy and PEG tube placement. 04/08 Patient remains sedated with Versed and Fentanyl infusion. On Cardene drip.Had T:99.7 last night. Remains on high PEEP and FIO2( PEEP:15, FIO2: 65%) 04/09 Patient is intubated with Versed and Fentanyl drips. Tmax 100.3. Now on PRVC with PEEP:12 and FIO2 100% Objective Vital Signs / I&O: Vital Signs 04/08/18 09:00 04/08/18 09:01 04/08/18 10:00 Temperature Pulse Rate 75 75 76 Respiratory Rate 21 26 H 25 H Blood Pressure 178/76 H 166/74 H Pulse Oximetry 91 L 90 L 92 L 04/08/18 10:44 04/08/18 11:00 04/08/18 11:35 Temperature Pulse Rate 78 Respiratory Rate 16 20 21 Blood Pressure 165/73 H Pulse Oximetry 90 L 90 L 04/08/18 12:00 04/08/18 13:00 04/08/18 13:11 Temperature 100.1 F H Pulse Rate 73 76 Respiratory Rate 21 23 20 Blood Pressure 162/68 H 156/69 H Pulse Oximetry 89 L 92 L 92 L 04/08/18 14:00 04/08/18 14:01 04/08/18 15:00 Temperature Pulse Rate 61 61 71 Respiratory Rate 20 20 21 Blood Pressure 130/59 L Pulse Oximetry 94 L 94 L 93 L 04/08/18 15:01 04/08/18 16:00 04/08/18 18:00 Temperature 100.3 F H Pulse Rate 70 70 64 Respiratory Rate 20 22 Blood Pressure 162/73 H 138/55 L Pulse Oximetry 94 L 95 04/08/18 19:59 04/08/18 20:00 04/08/18 20:55 Temperature 98.8 F Pulse Rate 70 74 74 Respiratory Rate 20 26 H 22 Blood Pressure 154/61 H Pulse Oximetry 94 L 91 L 04/08/18 22:00 04/08/18 23:30 04/08/18 23:31 Temperature 98.8 F Pulse Rate 83 73 74 Respiratory Rate 21 Blood Pressure 142/52 H Pulse Oximetry 95 04/08/18 23:52 04/09/18 00:00 04/09/18 02:00 Temperature Pulse Rate 74 74 Respiratory Rate 22 Blood Pressure 150/58 H Pulse Oximetry 93 L 04/09/18 03:46 04/09/18 04:00 04/09/18 06:00 Temperature 99.4 F Pulse Rate 82 81 Respiratory Rate 23 22 Blood Pressure 149/55 H Pulse Oximetry 95 92 L Intake & Output 04/08/18 04/09/18 04/09/18 18:59 06:59 18:59 Intake Total 1573 / 1573 1402 / 1402 250 / 250 Output Total 2300 / 2300 2100 / 2100 Balance -727 / -727 -698 / -698 250 / 250 Weight 137 kg Intake: IV 969 / 969 850 / 850 250 / 250 Versed Inj 50 mg In 50 ml @ 2 50 / 50 100 / 100 MG/HR 2 mls/hr IV.CONT TITRATE PRN Rx#:[id number] Levophed Inj 16 MG In NS Inj 250 / 250 234 ML @ 2 MCG/MIN 1.87 mls/hr IV.CONT TITRATE PRN Rx#: [id number] Cardene Inj 25 MG In NS Inj 240 230 / 230 ML @ 5 MG/HR 50 mls/hr IV.CONT TITRATE PRN Rx#:[id number] Avycaz Inj 1.25 GM In NS Inj 50 50 / 50 ML @ 25 mls/hr IV.SIG Q8H JACKI Rx#:[id number] Vabomere Inj 2,000 MG In NS Inj 250 / 250 500 / 500 250 ML @ 83.333 mls/hr IV.SIG Q8H [facility] Rx#:[id number] fentaNYL 10 mcg/mL Premix Drip 139 / 139 250 / 250 250 / 250 2,500 mcg In 250 ml @ 50 MCG/HR 5 mls/hr IV.SIG TITRATE PRN Rx #:[id number] Tube Feeding 574 / 574 492 / 492 Water Bolus Amount 30 / 30 60 / 60 Output: Stool 0 / 0 Urine Amount (Catheter) 2300 / 2300 2099 / 2099 Indwelling Urethral Catheter 2299 / 0 2099 Other: Date of Last Bowel Movement 04/06/18 04/06/18 Result Diagrams: 04/09/18 05:01 04/09/18 05:01 Other Results: Laboratory Results - last 12 hr 04/08/18 04/09/18 04/09/18 23:28 04:20 05:01 WBC RBC Hgb Hct MCV MCH MCHC RDW Plt Count MPV Neut % (Auto) Lymph % (Auto) Bracken % (Auto) Eos % (Auto) Baso % (Auto) Neut # (Auto) Lymph # (Auto) Bracken # (Auto) Eos # (Auto) Baso # (Auto) WBC Differential Differential Comment Sodium 138 Potassium 3.5 Chloride 95 L Carbon Dioxide 30.1 Anion Gap 13 BUN 128 H Creatinine 1.80 H Estimated GFR 35 L POC Glucose 209 H 154 H Random Glucose 145 H Calcium 9.7 Total Bilirubin 0.6 AST 31 ALT 60 H Alkaline Phosphatase 85 Total Protein 6.4 Albumin 2.7 L 04/09/18 05:01 WBC 12.2 H RBC 3.06 L Hgb 8.0 L Hct 24.4 L MCV 79.5 L MCH 26.0 L MCHC 32.7 RDW 24.4 H Plt Count 173 MPV 9.8 Neut % (Auto) 83.8 H Lymph % (Auto) 5.4 L Bracken % (Auto) 10.5 H Eos % (Auto) 0.1 Baso % (Auto) 0.2 Neut # (Auto) 10.2 H Lymph # (Auto) 0.7 L Bracken # (Auto) 1.3 H Eos # (Auto) 0.0 Baso # (Auto) 0.0 WBC Differential . Differential Comment Auto diff final Sodium Potassium Chloride Carbon Dioxide Anion Gap BUN Creatinine Estimated GFR POC Glucose Random Glucose Calcium Total Bilirubin AST ALT Alkaline Phosphatase Total Protein Albumin Imaging: Head CT 03/18/18 18:46 CONCLUSION: 1. Solitary 3 mm hyperdensity in the central [place] of uncertain significance. Differential considerations include a punctate calcification and acute hemorrhage. 2. No acute findings in the supratentorial brain. Head MRI 03/19/18 00:00 CONCLUSION: 1. No evidence of brainstem hemorrhage. 2. Small foci of encephalomalacia in the left occipital lobe and right cerebellum 3. No evidence of acute infarct, hemorrhage, mass or edema. 4. No evidence of enhancing intra-axial or extra-axial lesions. Venous Doppler Study 03/19/18 00:00 CONCLUSION: The study is negative for bilateral lower extremity deep venous thrombosis. Foot X-Ray 03/22/18 00:00 CONCLUSION: No acute bony destructive change. Previous amputations as above. Fairly marked soft tissue swelling of the forefoot. Abdomen X-Ray 03/26/18 00:00 CONCLUSION: Abdomen/Pelvis CT 03/28/18 00:00 CONCLUSION: 1. Minimal increase in the trace bilateral pleural effusions with compressive atelectasis in both bases. 2. Gallstones in a benign-appearing gallbladder 3. I don't see evidence for colitis. 4. I don't see inflammatory changes in the abdomen. Chest CT 03/28/18 00:00 CONCLUSION: 1. Biventricular cardiomegaly with coarse interstitial changes in both lungs. A component of this could be failure 2. Trace bilateral pleural effusions larger on the right.. These have decreased slightly in the interval. Foot MRI 03/28/18 00:00 CONCLUSION: 1. Difficult exam to interpret because of extensive soft tissue swelling. No obvious osteomyelitis. 2. Nuclear medicine tagged white cell study may help. Chest X-Ray 04/08/18 05:00 CONCLUSION: No interval change. Objective Remarks: GENERAL: SKIN: Warm and dry. HEAD: Normocephalic. EYES: No scleral icterus. No injection or drainage. NECK: Supple, trachea midline. No JVD or lymphadenopathy. CARDIOVASCULAR: Regular rate and rhythm without murmurs, gallops, or rubs. RESPIRATORY: Breath sounds equal bilaterally. No accessory muscle use. GASTROINTESTINAL: Abdomen soft, non-tender, nondistended. MUSCULOSKELETAL: No cyanosis, or edema. Neuro: sedated and intubated. Assessment and Plan - Assessment and Plan Plan: Assessment: 52yF with severe ARDS and organ failure secondary to MDRO/ESBL/KPC Klebsiella and Veillonella bacteremia. remains very critically ill. does still appear to be volume overloaded combined with significant myocardial dysfunction. continue dopamine to prevent bradycardia. continue APRV mode of ventilation. continue forced diuresis. Family concerned about goals of care and if this level of care was consistent with patient's wishes. I think it is hernandez to get palliative care involved. however, it does appear that given her young age, we could successfully rehabilitate her to a functional status at least consistent with her prior functional status at her SNF, and possibly improved depending on her clinical course. Of course this would take months of rehabilitation, and will likely include trach/peg due to her severe ARDS and hypoxia. I would support aggressive measures at this point, unless it becomes clear that the patient has a strong opinion against such measures. Remains critically ill today with multiple ongoing life-threatening organ dysfunction. NEURO/PSYCH: Acute encephalopathy - secondary to hypercapnia, improving. Abnormal brain CT with 3 mm hyperdensity in central [place] Major depressive disorder NOS Chronic opioid use Encephalomalacia right cerebellum/left occipital lobe scheduled oxycodone 20mg po q4h Seroquel 50mg po q8h for delirium. versed and fentanyl for goal RASS -2. Monitor neuro status. Daily sedation vacation. Followup CT brain - . Solitary 3 mm hyperdensity in the central [place] of uncertain significance. Differential considerations include a punctate calcification and acute hemorrhage RESP: Acute hypercapnic and hypoxemic respiratory failure Severe ARDS Acute asthma exacerbation Healthcare associated pneumonia WISAM/OHS Prior tobacco abuse Bilateral pleural effusions right 2.2 cm. Left 1.3 cm LMA was placed in the field by EVAC. Intubated in ED 03/18 Continue with vent support keep sats >92% On albuterol/ipratropium aerosols every 4 hours with albuterol aerosols every 2 hours as needed for dyspnea Weaned off epoprostenol 03/23. Restart Flolan On PRVC RR 20, TV 550, IT:1.10, PEEP:12, FIO2: 85% On Solumederol 40mg IV daily CT thorax revealed right middle lobe/lower lobe consolidation left lower lobe consolidation. Right pleural effusion 2.2 cm. Left pleural effusion 1.3 cm Methylprednisolone succinate 40 mg IV every 12 hours. Antibiotics as per below. CXR 04/08 showed diffuse interstitial and alveolar infiltrates chest/abd/pelvis 03/28: biventricular enlargement, pulmonary edema. CV: Hypertension Hyperlipidemia Chronic diastolic heart failure Paroxysmal atrial fibrillation on chronic anti-coagulation with warfarin Peripheral vascular disease/peripheral arterial disease Elevated troponin intermittent bradycardia Cor pulmonale biventricular dysfunction Monitor HR and BP keep MAP>65mmHg 2D echo 02/24/18ejection fraction 50%. Wall thickness upper limits of normal. Trace MREmma Lactic acid cleared Continue atorvastatin 40 mg daily Doppler bilateral upper and lower extremities revealed no acute thrombus amlodipine 10mg po daily hydralazine 100mg po q8h, Clonidine patch Coreg 3.125 mg BID, GI: History of GERD Chronic pancreatitis insufficiency Hypoalbuminemia vital high-protein goal 45 cc an hour per GIs recommendation Famotidine for GI prophylaxis Docusate sodium/senna 1 tablet twice daily for bowel regimen Creon home medication 3 times daily FEN/RENAL: Acute kidney injury superimposed on CKD Chronic kidney disease stage III Acute severe intravascular volume overload with pulmonary edema [place] catheter was placed in the emergency department. Monitor renal function, I/O's, avoid nephrotoxins Cr: 1.80 from 1.93, UOP: 4.4L on Bumex 2mg TID, Zaroxolyn 5mg Q12 Renal is following- Dr. Fraser ID: Acute healthcare associated pneumonia -ESBL positive Klebsiella pneumonia Veillonella species bacteremia Metronidazole 500 every 6 hours, Avycaz, colistin nebs , Merrem per ID. Monitor for signs of infections ( Fever, WBC) Blood cultures 2 03/18 Veillonella spp. Repeat 03/20 no growth to date Sputum, ESBL positive Klebsiella pneumonia 04/04 Pneumococcal urinary antigens, influenza a and B and chlamydia and mycoplasma all pending/negative Antibiotics per ID. HEME: Leukocytosis Chronic anemia/normocytic Chronic anti-coagulation with warfarin 4 mg daily. INR target is 2-3. Monitor CBC daily. Follow trends. On Heparin drip No indication for transfusion of blood products at this time. ENDO: Diabetes mellitus History of gout SSI q4h high scale Levemir 5 units SQ BID Holding glipizide 10 mg twice daily and insulin glargine/home medication Holding allopurinol 300 mg daily/home medication MSK: Elevated BMI Osteoporosis/osteoarthritis PT evaluate and treat PROPH: SCDs for DVT prophylaxis. Heparin drip ACCESS: Right IJ CVL placed 03/19. Right axillary arterial line placed 03/19: must remain still critically ill. Palliative care is following Per Dr. Major : Discussed at length with patient's brother at bedside previously. Explained to him the need for tracheostomy however patient needs to be weaned down further on mechanical ventilation prior to procedure. He tells me that patient would not want tracheostomy and residential placement based on his previous discussions with her. He tells me that she was not doing well for the last 6 months prior to her current hospitalization. Discussed with patient's son on 04/06 regarding need for tracheostomy PEG tube placement and possible residential placement. Also discussed the fact that patient has previously expressed to her brother that she would not want these procedures done. He tells me that he would be the final decision-maker and wishes to talk to his family before making any decisions and was reluctant to talk further with me. Critical care time 30 minutes, exclusive of separately billed procedures.
[2018-04-09] MEDS: metOLazone 5 MG Tablet PO SCH ×2 (08:39→20:18)
[2018-04-09] MEDS: Lipase/Protease/Amylase 24/76/120 DR Capsule PO SCH ×3 (08:39→19:02)
[2018-04-09] MEDS: Senna/Docusate Sodium 8.6/50 MG Tablet PO SCH ×2 (08:39→20:17)
[2018-04-09] MEDS: Famotidine 20 MG Tablet PO SCH ×2 (08:39→20:17)
[2018-04-09] MEDS: amLODIPine 10 MG Tablet PO SCH (08:39)
[2018-04-09] MEDS: MethylPREDNISolone Sod Succinate Inj 40 MG/ML Vial IV.PUSH SCH (08:40)
[2018-04-09] MEDS: Chlorhexidine 0.12% Oral Kit 15 ML UDC OROPHARYNG SCH ×2 (09:37→20:18)
[2018-04-09] MEDS: Insulin Detemir Inj 1,000 UNIT/10 ML Vial SQ SCH ×2 (09:37→20:36)
[2018-04-09] MEDS ORDERED: EPOPROSTENOL NEB SCH ×2 (10:00)
[2018-04-09] MEDS ORDERED: SODIUM CHLOR 0.9% NEB SCH ×2 (10:00)
[2018-04-09] MEDS: SODIUM CHLOR NEB SCH ×2 (10:35→19:13)
[2018-04-09] MEDS: EPOPROSTENOL NEB SCH ×2 (10:35→19:13)
--- NOTE | 2018-04-09 12:25 | P.PNNP ---
Subjective Interval history: Remains intubated. Oxygen requirement increasing. Creatinine improved, BUN elevated. <Myrtle Levi - Last Filed: 04/09/18 12:21> Physical Exam Vital signs: Vital Signs 04/08/18 13:00 04/08/18 13:11 04/08/18 14:00 Temperature Pulse Rate 76 61 Respiratory Rate 23 20 20 Blood Pressure 156/69 H Pulse Oximetry 92 L 92 L 94 L 04/08/18 14:01 04/08/18 15:00 04/08/18 15:01 Temperature Pulse Rate 61 71 70 Respiratory Rate 20 21 20 Blood Pressure 130/59 L 162/73 H Pulse Oximetry 94 L 93 L 94 L 04/08/18 16:00 04/08/18 18:00 04/08/18 19:59 Temperature 100.3 F H Pulse Rate 70 64 70 Respiratory Rate 22 20 Blood Pressure 138/55 L Pulse Oximetry 95 04/08/18 20:00 04/08/18 20:55 04/08/18 22:00 Temperature 98.8 F Pulse Rate 74 74 83 Respiratory Rate 26 H 22 Blood Pressure 154/61 H Pulse Oximetry 94 L 91 L 04/08/18 23:30 04/08/18 23:31 04/08/18 23:52 Temperature 98.8 F Pulse Rate 73 74 Respiratory Rate 21 22 Blood Pressure 142/52 H Pulse Oximetry 95 93 L 04/09/18 00:00 04/09/18 02:00 04/09/18 03:46 Temperature Pulse Rate 74 74 Respiratory Rate 23 Blood Pressure 150/58 H Pulse Oximetry 95 04/09/18 04:00 04/09/18 06:00 04/09/18 07:45 Temperature 99.4 F Pulse Rate 82 81 Respiratory Rate 22 23 Blood Pressure 149/55 H Pulse Oximetry 92 L 92 L 04/09/18 11:50 Temperature Pulse Rate 67 Respiratory Rate 20 Blood Pressure Pulse Oximetry 92 L Intake & Output 04/08/18 04/09/18 04/09/18 18:59 06:59 18:59 Intake Total 1573 / 1573 1402 / 1402 250 / 250 Output Total 2300 / 2300 2100 / 2100 Balance -727 / -727 -698 / -698 250 / 250 Weight 137 kg Intake: IV 969 / 969 850 / 850 250 / 250 Versed Inj 50 mg In 50 ml @ 2 50 / 50 100 / 100 MG/HR 2 mls/hr IV.CONT TITRATE PRN Rx#:[id number] Levophed Inj 16 MG In NS Inj 250 / 250 234 ML @ 2 MCG/MIN 1.87 mls/hr IV.CONT TITRATE PRN Rx#: [id number] Cardene Inj 25 MG In NS Inj 240 230 / 230 ML @ 5 MG/HR 50 mls/hr IV.CONT TITRATE PRN Rx#:[id number] Avycaz Inj 1.25 GM In NS Inj 50 50 / 50 ML @ 25 mls/hr IV.SIG Q8H JACKI Rx#:[id number] Vabomere Inj 2,000 MG In NS Inj 250 / 250 500 / 500 250 ML @ 83.333 mls/hr IV.SIG Q8H JACKI Rx#:[id number] fentaNYL 10 mcg/mL Premix Drip 139 / 139 250 / 250 250 / 250 2,500 mcg In 250 ml @ 50 MCG/HR 5 mls/hr IV.SIG TITRATE PRN Rx #:[id number] Tube Feeding 574 / 574 492 / 492 Water Bolus Amount 30 / 30 60 / 60 Output: Stool 0 / 0 Urine Amount (Catheter) 2299 / 0 2099 / 2099 Indwelling Urethral Catheter 2299 / 2299 Other: Date of Last Bowel Movement 04/06/18 04/06/18 - Constitutional no acute distress, morbidly obese Comments: intubated, unresponsive, edematous - Routine HEENT Exam Head: Present: normocephalic Eye: Present: periorbital swelling - Routine Neck Exam Present: supple, full ROM - Routine Respiratory Exam Present: patient mechanically ventilated, rales, diminished air movement - Routine Cardiovascular Exam Present: RRR, S1, S2 - Routine Abdominal Exam Present: soft, normoactive bowel sounds - Routine Extremities Exam Present: edema, pulses intact, amputation Comments: left TMA - Routine Skin Exam Present: intact, warm, scars - Routine Neurological Exam sedated, unresponsive - Routine Psychiatric Exam Present: unable to assess - Urinary Catheter Management Indwelling Urethral Catheter Cath placed during this visit: yes Reason for continuing: Hourly intake/output Insertion date: 03/18/18 Insertion time: 21:00 <Myrtle Levi - Last Filed: 04/09/18 12:21> Vital signs: Vital Signs 04/08/18 18:00 04/08/18 19:59 04/08/18 20:00 Temperature 98.8 F Pulse Rate 64 70 74 Respiratory Rate 20 26 H Blood Pressure 154/61 H Pulse Oximetry 94 L 04/08/18 20:55 04/08/18 22:00 04/08/18 23:30 Temperature 98.8 F Pulse Rate 74 83 73 Respiratory Rate 22 21 Blood Pressure 142/52 H Pulse Oximetry 91 L 95 04/08/18 23:31 04/08/18 23:52 04/09/18 00:00 Temperature Pulse Rate 74 74 Respiratory Rate 22 Blood Pressure 150/58 H Pulse Oximetry 93 L 04/09/18 02:00 04/09/18 03:46 04/09/18 04:00 Temperature 99.4 F Pulse Rate 74 82 Respiratory Rate 23 22 Blood Pressure 149/55 H Pulse Oximetry 95 92 L 04/09/18 06:00 04/09/18 07:45 04/09/18 11:50 Temperature Pulse Rate 81 67 Respiratory Rate 23 20 Blood Pressure Pulse Oximetry 92 L 92 L 04/09/18 13:53 04/09/18 16:29 Temperature Pulse Rate Respiratory Rate 20 Blood Pressure Pulse Oximetry 90 L 93 L Intake & Output 04/08/18 04/09/18 04/09/18 18:59 06:59 18:59 Intake Total 1573 / 1573 1402 / 1402 250 / 250 Output Total 2300 / 2300 2100 / 2100 Balance -727 / -727 -698 / -698 250 / 250 Weight 137 kg Intake: IV 969 / 969 850 / 850 250 / 250 Versed Inj 50 mg In 50 ml @ 2 50 / 50 100 / 100 MG/HR 2 mls/hr IV.CONT TITRATE PRN Rx#:[id number] Levophed Inj 16 MG In NS Inj 250 / 250 234 ML @ 2 MCG/MIN 1.87 mls/hr IV.CONT TITRATE PRN Rx#: [id number] Cardene Inj 25 MG In NS Inj 240 230 / 230 ML @ 5 MG/HR 50 mls/hr IV.CONT TITRATE PRN Rx#:[id number] Avycaz Inj 1.25 GM In NS Inj 50 50 / 50 ML @ 25 mls/hr IV.SIG Q8H JACKI Rx#:[id number] Vabomere Inj 2,000 MG In NS Inj 250 / 250 500 / 500 250 ML @ 83.333 mls/hr IV.SIG Q8H JACKI Rx#:[id number] fentaNYL 10 mcg/mL Premix Drip 139 / 139 250 / 250 250 / 250 2,500 mcg In 250 ml @ 50 MCG/HR 5 mls/hr IV.SIG TITRATE PRN Rx #:[id number] Tube Feeding 574 / 574 492 / 492 Water Bolus Amount 30 / 30 60 / 60 Output: Stool 0 / 0 Urine Amount (Catheter) 2300 / 0 2099 Indwelling Urethral Catheter 2299 / 2299 Other: Date of Last Bowel Movement 04/06/18 04/06/18 04/06/18 - Urinary Catheter Management Indwelling Urethral Catheter Cath placed during this visit: no <Alverto Fraser - Last Filed: 04/09/18 16:52> Assessment and Plan - Assessment (1) Acute renal failure superimposed on stage 3 chronic kidney disease Code(s): N17.9 - Acute kidney failure, unspecified; N18.3 - Chronic kidney disease, stage 3 (moderate) Status: Acute Plan: Her baseline creatinine runs 1.6-2, GFR 44. YOU most likely due to cardiac arrest and decreased renal perfusion. Her creatinine has improved, she is non oliguric and responding to diuretics. High and disproportionately elevated BUN is most likely due to combination of Solumedrol and aggressive diuresis; possible upper GI bleed, On Bumex TID 2 mg and PO metolazone. Goal is negative balance. Repeat labs daily. Avoid nephrotoxic agents,dose appropriate to renal status. (2) Acute respiratory failure with hypoxemia Code(s): J96.01 - Acute respiratory failure with hypoxia Status: Acute Plan: On the vent, requiring high O2 (85%). Continue diuresis Serial ABGs reviewed (3) Diabetes mellitus type 2 in obese Code(s): E11.69 - Type 2 diabetes mellitus with other specified complication; E66.9 - Obesity, unspecified Status: Chronic Plan: Maintain glucose 140-180mg/dL while hospitalized. Use insulin if needed. (4) Hypertension Code(s): I10 - Essential (primary) hypertension Status: Chronic Plan: Off nicardipine gtt. Monitor BP. (5) HCAP (healthcare-associated pneumonia) Code(s): J18.9 - Pneumonia, unspecified organism Status: Acute Plan: ID is following, managing antibiotics. Currently on Avycaz and Meropenem. s/p bronch with cultures reviewed. (6) Diastolic heart failure Code(s): I50.30 - Unspecified diastolic (congestive) heart failure Status: Acute Plan: Monitor fluid status. Continue diuresis. She had an echo previous admission <Myrtle Levi - Last Filed: 04/09/18 12:21> - Assessment (1) Acute renal failure superimposed on stage 3 chronic kidney disease Code(s): N17.9 - Acute kidney failure, unspecified; N18.3 - Chronic kidney disease, stage 3 (moderate) Status: Acute (2) Acute respiratory failure with hypoxemia Code(s): J96.01 - Acute respiratory failure with hypoxia Status: Acute (3) Diabetes mellitus type 2 in obese Code(s): E11.69 - Type 2 diabetes mellitus with other specified complication; E66.9 - Obesity, unspecified Status: Chronic (4) Hypertension Code(s): I10 - Essential (primary) hypertension Status: Chronic (5) HCAP (healthcare-associated pneumonia) Code(s): J18.9 - Pneumonia, unspecified organism Status: Acute (6) Diastolic heart failure Code(s): I50.30 - Unspecified diastolic (congestive) heart failure Status: Acute - Attending Attestation patient was seen and examined. Agree with above assessment and plan. <Alverto Fraser - Last Filed: 04/09/18 16:52>
--- NOTE | 2018-04-09 13:54 | P.PNPAL ---
Reason for Visit Reason for visit: a. To assist with evaluation and management of symptoms including:dyspnea, pain. b. To assist medical decision maker(s) with: better understanding of current medical conditions; weighing benefits/burdens of medical treatment options; making medical treatment decisions. Subjective Subjective/Interval History: Patient seen and examined in ICU. Friend at bedside reading to patient. Discussed with nursing staff. Family has elected to proceed with trach and PEG, though patient has had increasing FiO2 and PEEP requirements on vent. Patient remains on [facility] vent FiO2 85% and PEEP 12. She remains sedated with Fentanyl 250mcg and Versed 8mg. Clinical data: * Tmax 100.3. BP 149/55. Heart rate 90's. * WBC 12.1, hemoglobin 8.0, hematocrit 24.4, platelets 173. * BUN 128, creatinine 1.80, sodium 138, potassium 3.5, GFR 35 - still making urine * Total protein 6.4, albumin 2.7, tolerating tube feeding. * 04/04/18 - Sputum culture - gram negative rods * Prior sputum cultures - ESBL + klebsiella pneumoniae MDRO, [employer]IC[employer] positive. * 04/08/18 - CXR - consolidation both lower lobes, diffuse alveolar and interstitial infiltrate, cardiomegaly. ID following. Family/Friend Interactions: Spoke with friend at bedside. She informs me family will be visiting later today. Palliative care number previously provided. Advance Directives Living Will: Never completed Health Care Surrogate: Never completed Durable Power of Production Crew Supervisor: Never completed Health Care Surrogate Name and Number: family David spokesperson [phone] Documented care wishes:: No written advanced directives. Significant change in goals:: FULL CODE. Family desires continued aggressive care including FULL CODE, tracheostomy and PEG tube when medically stable. Objective Vital Signs: Vital Signs 04/08/18 14:00 04/08/18 14:01 04/08/18 15:00 Temperature Pulse Rate 61 61 71 Respiratory Rate 20 20 21 Blood Pressure 130/59 L Pulse Oximetry 94 L 94 L 93 L 04/08/18 15:01 04/08/18 16:00 04/08/18 18:00 Temperature 100.3 F H Pulse Rate 70 70 64 Respiratory Rate 20 22 Blood Pressure 162/73 H 138/55 L Pulse Oximetry 94 L 95 04/08/18 19:59 04/08/18 20:00 04/08/18 20:55 Temperature 98.8 F Pulse Rate 70 74 74 Respiratory Rate 20 26 H 22 Blood Pressure 154/61 H Pulse Oximetry 94 L 91 L 04/08/18 22:00 04/08/18 23:30 04/08/18 23:31 Temperature 98.8 F Pulse Rate 83 73 74 Respiratory Rate 21 Blood Pressure 142/52 H Pulse Oximetry 95 04/08/18 23:52 04/09/18 00:00 04/09/18 02:00 Temperature Pulse Rate 74 74 Respiratory Rate 22 Blood Pressure 150/58 H Pulse Oximetry 93 L 04/09/18 03:46 04/09/18 04:00 04/09/18 06:00 Temperature 99.4 F Pulse Rate 82 81 Respiratory Rate 23 22 Blood Pressure 149/55 H Pulse Oximetry 95 92 L 04/09/18 07:45 04/09/18 11:50 Temperature Pulse Rate 67 Respiratory Rate 23 20 Blood Pressure Pulse Oximetry 92 L 92 L Intake & Output 04/08/18 04/09/18 04/09/18 18:59 06:59 18:59 Intake Total 1573 / 1573 1402 / 1402 250 / 250 Output Total 2300 / 2300 2100 / 2100 Balance -727 / -727 -698 / -698 250 / 250 Weight 137 kg Intake: IV 969 / 969 850 / 850 250 / 250 Versed Inj 50 mg In 50 ml @ 2 50 / 50 100 / 100 MG/HR 2 mls/hr IV.CONT TITRATE PRN Rx#:[id number] Levophed Inj 16 MG In NS Inj 250 / 250 234 ML @ 2 MCG/MIN 1.87 mls/hr IV.CONT TITRATE PRN Rx#: [id number] Cardene Inj 25 MG In NS Inj 240 230 / 230 ML @ 5 MG/HR 50 mls/hr IV.CONT TITRATE PRN Rx#:[id number] Avycaz Inj 1.25 GM In NS Inj 50 50 / 50 ML @ 25 mls/hr IV.SIG Q8H JACKI Rx#:[id number] Vabomere Inj 2,000 MG In NS Inj 250 / 250 500 / 500 250 ML @ 83.333 mls/hr IV.SIG Q8H JACKI Rx#:[id number] fentaNYL 10 mcg/mL Premix Drip 139 / 139 250 / 250 250 / 250 2,500 mcg In 250 ml @ 50 MCG/HR 5 mls/hr IV.SIG TITRATE PRN Rx #:[id number] Tube Feeding 574 / 574 492 / 492 Water Bolus Amount 30 / 30 60 / 60 Output: Stool 0 / 0 Urine Amount (Catheter) 2300 / 2300 2099 / 2099 Indwelling Urethral Catheter 2300 / 2300 2099 Other: Date of Last Bowel Movement 04/06/18 04/06/18 Physical Exam: CONSTITUTIONAL/GENERAL: This is an obese, critically ill patient. TUBES/LINES/DRAINS: ETT, OG, right IJ central line, PIV, bilateral soft wrist restraints, [place], rectal tube, SCDs SKIN: No jaundice, rashes, or lesions. Ecchymoses on upper extremities. No wounds seen anteriorly. Skin temperature appropriate. Not diaphoretic. EYES: eyes closed. ENT: Unable to assess hearing. Nose without bleeding or purulent drainage. CARDIOVASCULAR: RRR. RESPIRATORY/CHEST: Diminished bibasilar with no appreciable rales. Scattered rhonchi bilaterally. GASTROINTESTINAL: Abdomen obese, soft, non-tender, nondistended OG in place. GENITOURINARY: Without palpable bladder distension. [place] catheter in place. 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 Legs revealed 2+ pitting edema bilateral lower extremities. NEUROLOGICAL:Sedated. PSYCHIATRIC: Sedated. Diagnostic Tests Laboratory: Laboratory Results - last 72 hr 04/04/18 04/06/18 04/06/18 10:58 15:21 21:00 WBC RBC Hgb Hct MCV MCH MCHC RDW Plt Count MPV Neut % (Auto) Lymph % (Auto) [place] % (Auto) Eos % (Auto) Baso % (Auto) Neut # (Auto) Lymph # (Auto) [place] # (Auto) Eos # (Auto) Baso # (Auto) WBC Differential Differential Comment APTT Puncture Site Patient Temperature O2 Saturation ABG pH ABG pCO2 ABG pO2 ABG HCO3 ABG O2 Content ABG Base Excess ABG Methemoglobin Hemoglobin Carboxyhemoglobin O2 Delivery Device Vent Setting Inspired O2 Critical Value Sodium Potassium Chloride Carbon Dioxide Anion Gap BUN Creatinine Estimated GFR POC Glucose 277 H 236 H Random Glucose Calcium Total Bilirubin AST ALT Alkaline Phosphatase Total Protein Albumin Urine Color Urine Clarity Urine pH Ur Specific [place] Urine Protein Urine Glucose (UA) Urine Ketones Urine Occult Blood Urine Nitrate Urine Bilirubin Urine Urobilinogen Ur Leukocyte Esterase Urine RBC Urine WBC Ur Squamous Epith Cells Urine Bacteria Hyaline Casts Urine Mucus Urine Yeast Ur Yeast w Hyphae Rout Panel Path Interp 04/07/18 04/07/18 04/07/18 00:10 04:11 04:20 WBC RBC Hgb Hct MCV MCH MCHC RDW Plt Count MPV Neut % (Auto) Lymph % (Auto) [place] % (Auto) Eos % (Auto) Baso % (Auto) Neut # (Auto) Lymph # (Auto) [place] # (Auto) Eos # (Auto) Baso # (Auto) WBC Differential Differential Comment APTT Puncture Site Patient Temperature O2 Saturation ABG pH ABG pCO2 ABG pO2 ABG HCO3 ABG O2 Content ABG Base Excess ABG Methemoglobin Hemoglobin Carboxyhemoglobin O2 Delivery Device Vent Setting Inspired O2 Critical Value Sodium 135 L Potassium 3.7 Chloride 94 L Carbon Dioxide 31.1 Anion Gap 10 BUN 114 H Creatinine 2.02 H Estimated GFR 31 L POC Glucose 201 H 199 H Random Glucose 191 H Calcium 9.6 Total Bilirubin 0.7 AST 64 H ALT 90 H Alkaline Phosphatase 92 Total Protein 6.6 Albumin 3.0 L Urine Color Urine Clarity Urine pH Ur Specific [place] Urine Protein Urine Glucose (UA) Urine Ketones Urine Occult Blood Urine Nitrate Urine Bilirubin Urine Urobilinogen Ur Leukocyte Esterase Urine RBC Urine WBC Ur Squamous Epith Cells Urine Bacteria Hyaline Casts Urine Mucus Urine Yeast Ur Yeast w Hyphae Rout Panel Path Interp 04/07/18 04/07/18 04/07/18 04:20 08:20 12:55 WBC RBC Hgb Hct MCV MCH MCHC RDW Plt Count MPV Neut % (Auto) Lymph % (Auto) [place] % (Auto) Eos % (Auto) Baso % (Auto) Neut # (Auto) Lymph # (Auto) [place] # (Auto) Eos # (Auto) Baso # (Auto) WBC Differential Differential Comment APTT 25.7 Puncture Site Patient Temperature O2 Saturation ABG pH ABG pCO2 ABG pO2 ABG HCO3 ABG O2 Content ABG Base Excess ABG Methemoglobin Hemoglobin Carboxyhemoglobin O2 Delivery Device Vent Setting Inspired O2 Critical Value Sodium Potassium Chloride Carbon Dioxide Anion Gap BUN Creatinine Estimated GFR POC Glucose 197 H 243 H Random Glucose Calcium Total Bilirubin AST ALT Alkaline Phosphatase Total Protein Albumin Urine Color Urine Clarity Urine pH Ur Specific [place] Urine Protein Urine Glucose (UA) Urine Ketones Urine Occult Blood Urine Nitrate Urine Bilirubin Urine Urobilinogen Ur Leukocyte Esterase Urine RBC Urine WBC Ur Squamous Epith Cells Urine Bacteria Hyaline Casts Urine Mucus Urine Yeast Ur Yeast w Hyphae Rout Panel Path Interp 04/07/18 04/07/18 04/07/18 15:58 16:35 20:04 WBC RBC Hgb Hct MCV MCH MCHC RDW Plt Count MPV Neut % (Auto) Lymph % (Auto) [place] % (Auto) Eos % (Auto) Baso % (Auto) Neut # (Auto) Lymph # (Auto) [place] # (Auto) Eos # (Auto) Baso # (Auto) WBC Differential Differential Comment APTT Puncture Site Patient Temperature O2 Saturation ABG pH ABG pCO2 ABG pO2 ABG HCO3 ABG O2 Content ABG Base Excess ABG Methemoglobin Hemoglobin Carboxyhemoglobin O2 Delivery Device Vent Setting Inspired O2 Critical Value Sodium Potassium Chloride Carbon Dioxide Anion Gap BUN Creatinine Estimated GFR POC Glucose 251 H 212 H Random Glucose Calcium Total Bilirubin AST ALT Alkaline Phosphatase Total Protein Albumin Urine Color Yellow Urine Clarity Hazy H Urine pH 6.0 Ur Specific [place] 1.008 Urine Protein 30 H Urine Glucose (UA) Negative Urine Ketones Negative Urine Occult Blood Moderate H Urine Nitrate Negative Urine Bilirubin Negative Urine Urobilinogen Less than 2 Ur Leukocyte Esterase Moderate H Urine RBC 23 H Urine WBC 15 H Ur Squamous Epith Cells 1 Urine Bacteria Occasional H Hyaline Casts 4 Urine Mucus Few H Urine Yeast Many H Ur Yeast w Hyphae Occasional H Rout Panel Path Interp 04/07/18 04/08/18 04/08/18 23:23 03:28 05:30 WBC RBC Hgb Hct MCV MCH MCHC RDW Plt Count MPV Neut % (Auto) Lymph % (Auto) [place] % (Auto) Eos % (Auto) Baso % (Auto) Neut # (Auto) Lymph # (Auto) [place] # (Auto) Eos # (Auto) Baso # (Auto) WBC Differential Differential Comment APTT Puncture Site Patient Temperature O2 Saturation ABG pH ABG pCO2 ABG pO2 ABG HCO3 ABG O2 Content ABG Base Excess ABG Methemoglobin Hemoglobin Carboxyhemoglobin O2 Delivery Device Vent Setting Inspired O2 Critical Value Sodium 137 Potassium 3.7 Chloride 94 L Carbon Dioxide 31.4 Anion Gap 12 BUN 122 H Creatinine 1.93 H Estimated GFR 33 L POC Glucose 202 H 183 H Random Glucose 197 H Calcium 9.4 Total Bilirubin 0.6 AST 34 ALT 66 H Alkaline Phosphatase 79 Total Protein 6.0 L D Albumin 2.6 L Urine Color Urine Clarity Urine pH Ur Specific [place] Urine Protein Urine Glucose (UA) Urine Ketones Urine Occult Blood Urine Nitrate Urine Bilirubin Urine Urobilinogen Ur Leukocyte Esterase Urine RBC Urine WBC Ur Squamous Epith Cells Urine Bacteria Hyaline Casts Urine Mucus Urine Yeast Ur Yeast w Hyphae Rout Panel Path Interp 04/08/18 04/08/18 04/08/18 08:19 11:45 12:16 WBC RBC Hgb Hct MCV MCH MCHC RDW Plt Count MPV Neut % (Auto) Lymph % (Auto) [place] % (Auto) Eos % (Auto) Baso % (Auto) Neut # (Auto) Lymph # (Auto) [place] # (Auto) Eos # (Auto) Baso # (Auto) WBC Differential Differential Comment APTT Puncture Site Art line Patient Temperature 98.6 O2 Saturation 86 L* ABG pH 7.42 ABG pCO2 46 H ABG pO2 58 L* ABG HCO3 29 H ABG O2 Content 9.8 L ABG Base Excess 4.5 H ABG Methemoglobin 1.6 Hemoglobin 8.0 L Carboxyhemoglobin 1.7 O2 Delivery Device Ventilator Vent Setting Prvc/ac Inspired O2 70 Critical Value Yes Sodium Potassium Chloride Carbon Dioxide Anion Gap BUN Creatinine Estimated GFR POC Glucose 194 H 198 H Random Glucose Calcium Total Bilirubin AST ALT Alkaline Phosphatase Total Protein Albumin Urine Color Urine Clarity Urine pH Ur Specific [place] Urine Protein Urine Glucose (UA) Urine Ketones Urine Occult Blood Urine Nitrate Urine Bilirubin Urine Urobilinogen Ur Leukocyte Esterase Urine RBC Urine WBC Ur Squamous Epith Cells Urine Bacteria Hyaline Casts Urine Mucus Urine Yeast Ur Yeast w Hyphae Rout Panel Path Interp 04/08/18 04/08/18 04/08/18 15:50 15:56 20:20 WBC 10.6 RBC 3.07 L Hgb 8.2 L Hct 24.4 L MCV 79.5 L MCH 26.7 L MCHC 33.6 RDW 23.9 H Plt Count 169 MPV 9.3 Neut % (Auto) 96.5 H Lymph % (Auto) 1.7 L [place] % (Auto) 1.5 Eos % (Auto) 0.0 Baso % (Auto) 0.3 Neut # (Auto) 10.2 H Lymph # (Auto) 0.2 L [place] # (Auto) 0.2 Eos # (Auto) 0.0 Baso # (Auto) 0.0 WBC Differential . Differential Comment Auto diff final APTT Puncture Site Patient Temperature O2 Saturation ABG pH ABG pCO2 ABG pO2 ABG HCO3 ABG O2 Content ABG Base Excess ABG Methemoglobin Hemoglobin Carboxyhemoglobin O2 Delivery Device Vent Setting Inspired O2 Critical Value Sodium Potassium Chloride Carbon Dioxide Anion Gap BUN Creatinine Estimated GFR POC Glucose 247 H 266 H Random Glucose Calcium Total Bilirubin AST ALT Alkaline Phosphatase Total Protein Albumin Urine Color Urine Clarity Urine pH Ur Specific [place] Urine Protein Urine Glucose (UA) Urine Ketones Urine Occult Blood Urine Nitrate Urine Bilirubin Urine Urobilinogen Ur Leukocyte Esterase Urine RBC Urine WBC Ur Squamous Epith Cells Urine Bacteria Hyaline Casts Urine Mucus Urine Yeast Ur Yeast w Hyphae Rout Panel Path Interp 04/08/18 04/09/18 04/09/18 23:28 04:20 05:01 WBC RBC Hgb Hct MCV MCH MCHC RDW Plt Count MPV Neut % (Auto) Lymph % (Auto) [place] % (Auto) Eos % (Auto) Baso % (Auto) Neut # (Auto) Lymph # (Auto) [place] # (Auto) Eos # (Auto) Baso # (Auto) WBC Differential Differential Comment APTT Puncture Site Patient Temperature O2 Saturation ABG pH ABG pCO2 ABG pO2 ABG HCO3 ABG O2 Content ABG Base Excess ABG Methemoglobin Hemoglobin Carboxyhemoglobin O2 Delivery Device Vent Setting Inspired O2 Critical Value Sodium 138 Potassium 3.5 Chloride 95 L Carbon Dioxide 30.1 Anion Gap 13 BUN 128 H Creatinine 1.80 H Estimated GFR 35 L POC Glucose 209 H 154 H Random Glucose 145 H Calcium 9.7 Total Bilirubin 0.6 AST 31 ALT 60 H Alkaline Phosphatase 85 Total Protein 6.4 Albumin 2.7 L Urine Color Urine Clarity Urine pH Ur Specific [place] Urine Protein Urine Glucose (UA) Urine Ketones Urine Occult Blood Urine Nitrate Urine Bilirubin Urine Urobilinogen Ur Leukocyte Esterase Urine RBC Urine WBC Ur Squamous Epith Cells Urine Bacteria Hyaline Casts Urine Mucus Urine Yeast Ur Yeast w Hyphae Rout Panel Path Interp 04/09/18 04/09/18 05:01 08:42 WBC 12.2 H RBC 3.06 L Hgb 8.0 L Hct 24.4 L MCV 79.5 L MCH 26.0 L MCHC 32.7 RDW 24.4 H Plt Count 173 MPV 9.8 Neut % (Auto) 83.8 H Lymph % (Auto) 5.4 L [place] % (Auto) 10.5 H Eos % (Auto) 0.1 Baso % (Auto) 0.2 Neut # (Auto) 10.2 H Lymph # (Auto) 0.7 L [place] # (Auto) 1.3 H Eos # (Auto) 0.0 Baso # (Auto) 0.0 WBC Differential . Differential Comment Auto diff final APTT Puncture Site Patient Temperature O2 Saturation ABG pH ABG pCO2 ABG pO2 ABG HCO3 ABG O2 Content ABG Base Excess ABG Methemoglobin Hemoglobin Carboxyhemoglobin O2 Delivery Device Vent Setting Inspired O2 Critical Value Sodium Potassium Chloride Carbon Dioxide Anion Gap BUN Creatinine Estimated GFR POC Glucose 135 H Random Glucose Calcium Total Bilirubin AST ALT Alkaline Phosphatase Total Protein Albumin Urine Color Urine Clarity Urine pH Ur Specific [place] Urine Protein Urine Glucose (UA) Urine Ketones Urine Occult Blood Urine Nitrate Urine Bilirubin Urine Urobilinogen Ur Leukocyte Esterase Urine RBC Urine WBC Ur Squamous Epith Cells Urine Bacteria Hyaline Casts Urine Mucus Urine Yeast Ur Yeast w Hyphae Rout Panel Path Interp Result Diagrams: 04/13/18 04:05 04/13/18 04:05 Microbiology: Microbiology 04/04/18 15:44 Gram Stain - Final Sputum - Endotracheal Sputum Culture - Final Klebsiella pneumoniae ESBL pos Multidrug Resistant 03/24/18 16:30 Fungal Smear - Final Bronchial Washings - Left Lower Lobe No fungal elements seen Fungal Culture - Preliminary No growth in 2 weeks 03/24/18 16:30 Acid Fast Bacilli Smear - Final Bronchial Washings - Left Lower Lobe No acid fast bacilli seen Mycobacterial Culture - Preliminary No growth in 2 weeks Imaging: Head CT 03/18/18 18:46 CONCLUSION: 1. Solitary 3 mm hyperdensity in the central [place] of uncertain significance. Differential considerations include a punctate calcification and acute hemorrhage. 2. No acute findings in the supratentorial brain. Head MRI 03/19/18 00:00 CONCLUSION: 1. No evidence of brainstem hemorrhage. 2. Small foci of encephalomalacia in the left occipital lobe and right cerebellum 3. No evidence of acute infarct, hemorrhage, mass or edema. 4. No evidence of enhancing intra-axial or extra-axial lesions. Venous Doppler Study 03/19/18 00:00 CONCLUSION: The study is negative for bilateral lower extremity deep venous thrombosis. Foot X-Ray 03/22/18 00:00 CONCLUSION: No acute bony destructive change. Previous amputations as above. Fairly marked soft tissue swelling of the forefoot. Abdomen X-Ray 03/26/18 00:00 CONCLUSION: Abdomen/Pelvis CT 03/28/18 00:00 CONCLUSION: 1. Minimal increase in the trace bilateral pleural effusions with compressive atelectasis in both bases. 2. Gallstones in a benign-appearing gallbladder 3. I don't see evidence for colitis. 4. I don't see inflammatory changes in the abdomen. Chest CT 03/28/18 00:00 CONCLUSION: 1. Biventricular cardiomegaly with coarse interstitial changes in both lungs. A component of this could be failure 2. Trace bilateral pleural effusions larger on the right.. These have decreased slightly in the interval. Foot MRI 03/28/18 00:00 CONCLUSION: 1. Difficult exam to interpret because of extensive soft tissue swelling. No obvious osteomyelitis. 2. Nuclear medicine tagged white cell study may help. Chest X-Ray 04/08/18 05:00 CONCLUSION: No interval change. Procedures: * Right IJ central line * Intubated . Assessment and Plan - Disease Oriented Problem List (1) ARDS (adult respiratory distress syndrome) (2) Acute respiratory failure with hypoxemia (3) HCAP (healthcare-associated pneumonia) Comment: Multi drug resistant -- Klebsiella ESBL + (4) Diabetes mellitus type 2 in obese (5) Atrial fibrillation (6) Chronic kidney disease, stage III (moderate) (7) Hypertension (8) Hypoglycemia due to type 2 diabetes mellitus (9) Lactic acid acidosis (10) Super obesity (11) WISAM (obstructive sleep apnea) (12) Asthma (13) H/O osteomyelitis (14) Diastolic heart failure (15) Diabetes (16) Acute renal failure superimposed on stage 3 chronic kidney disease Pertinent Non-Medical Issues: Psychosocial: Never . Supported by her son, Rocael. Has 4 children ( Rocael, Jose Juan, Manny and Shobha). Spiritual: Sikh. Legal: Patient is not capacitated to make her own health care decisions, uncertain if she will regain capacity. No written advanced directives. According to [place] statutes, health care proxy decision making falls to the majority of adult children, she has 4 children. Son Rocael is serving as spokesperson for the children. Jose Juan has opted out of decision making. Ethical issues impacting care: None. Important Contacts: * Rocael Hanna, son: [phone] serving as family spokesperson * Shobha Hanna, daughter: [phone] - defers decision making to Rocael. * Jose Juan Hanna, son: opted out of decision making. * Manny Hanna, son: has not called per multiple requests, no phone number provided. * Carolyn Durand, sister: [phone] . Prognosis: 03/31/18 per proofer prepress: Miss Hanna is a 52 year old female admitted with severe ARDS and organ failure secondary to MDRO/ESBL/KPC Klebsiella and Veillonella bacteremia. remains very critically ill. does still appear to be volume overloaded combined with significant myocardial dysfunction. continue dopamine to prevent bradycardia. continue APRV mode of ventilation. continue forced diuresis. Family concerned about goals of care and if this level of care was consistent with patient's wishes. I think it is hernandez to get palliative care involved. however, it does appear that given her young age, we could successfully rehabilitate her to a functional status at least consistent with her prior functional status at her SNF, and possibly improved depending on her clinical course. Of course this would take months of rehabilitation, and will likely include trach/peg due to her severe ARDS and hypoxia. I would support aggressive measures at this point, unless it becomes clear that the patient has a strong opinion against such measures. Remains critically ill today with multiple ongoing life-threatening organ dysfunction. Code Status: Full Code Plan: * Patient is not capacitated to make her own health care decisions, uncertain if she will regain capacity. No written advanced directives. According to [place] statutes, health care proxy decision making falls to the majority of adult children, she has 4 children. Son Rocael is serving as spokesperson for the children. Jose Juan has opted out of decision making. * FULL CODE. * Family desires continued aggressive care including FULL CODE, trach and PEG at this time. They are open to ongoing conversation and understand despite aggressive measures she may not survive this hospitalization. * SYMPTOMS: dyspnea: on mech vent, sedated. Too unstable for trach and PEG at this time. Pain: sedted on fentanyl and versed, no obvious signs of pain. No new medication recommendations at this time. * Palliative care will continue to monitor to assist with symptom management and clarification of treatment goals. Attestation Collaborating MD Comments: Chart reviewed. Case discussed with palliative care ONCOLOGY PHARMACIST. Above ONCOLOGY PHARMACIST note reviewed and I concur. . Attestation: To help prompt me to consider important information that might be impacting today's encounter and assessment, information from prior notes written by myself or my colleagues may have been "brought forward" into today's note. My signature on this note, however, is an attestation that I personally performed the exam, history, and/or decision-making noted today, and, unless otherwise indicated, the interactions with patient, family, and staff as well as the review of records all occurred today. I also attest that the listed assessment and stated plan reflect my best clinical judgment today based on the combination of historical information, prior notes, and today's exam/ interactions. When time spent is documented, it refers only to time spent today by the signer, or if indicated, combined time spent today by collaborating physician/nurse practitioner.
[2018-04-09] MEDS: Sod Chloride 0.9% Inj 1,000 ML OTHER SCH (15:26)
[2018-04-10] MEDS: Oral Hygiene Kit OROPHARYNG SCH ×4 (00:07→17:07)
[2018-04-10] MEDS: Insulin NovoLIN Regular Correctional Sugar Inj SQ SCH ×6 (00:07→21:32)
[2018-04-10] MEDS: Midazolam 50 MG/50 ML Inj 50 MG/50 ML BAG IV.CONT PRN ×4 (01:01→18:36)
[2018-04-10] MEDS: SODIUM CHLOR 0.9% IV.SIG SCH ×3 (02:17→17:08)
[2018-04-10] MEDS: MEROPENEM VABORBACTAM IV.SIG SCH ×3 (02:17→17:08)
[2018-04-10] MEDS: SODIUM CHLOR NEB SCH ×3 (03:39→22:52)
[2018-04-10] MEDS: EPOPROSTENOL NEB SCH ×3 (03:39→22:52)
[2018-04-10] MEDS: Hypromellose 0.3% Opth Gel 10 GM Bottle EACH EYE SCH ×3 (03:40→18:37)
[2018-04-10] MEDS: Ceftazidime/Avibactam Inj 1.25 GM in Sodium Chlor 0.9% Inj 50 ML IV.SIG SCH ×2 (03:40→22:52)
[2018-04-10] MEDS: fentaNYL 10 mcg/mL Premix Drip 2,500 MCG/250 ML BAG IV.SIG PRN ×2 (03:55→14:11)
[2018-04-10 04:18] LABS: ABG Base Excess 6.7 mmol/L (-2-2); ABG PCO2 49 mmHg (38-42); ABG PO2 53 mmHG (61-120)
[2018-04-10 04:40] LABS: Baso % (Auto) 0.2 % (0.0-2.0); Eos % (Auto) 0.1 % (0.0-4.0); Hematocrit 26.1 % (35.0-46.0); Hemoglobin 8.7 gm/dL (11.6-15.3); Lymph # (Auto) 0.9 th/mm3 (1.0-4.8); Lymph % (Auto) 6.2 % (9.0-44.0); Mean Corpuscular HGB Conc 33.4 % (32.0-36.0); Mean Corpuscular Hemoglobin 26.9 pg (27.0-34.0); Mean Corpuscular Volume 80.5 fL (80.0-100.0); Mean Platelet Volume 10.2 fL (7.0-11.0); Mono # (Auto) 1.4 th/mm3 (0.0-0.9); Mono % (Auto) 9.7 % (0.0-8.0); Neut # (Auto) 12.1 th/mm3 (1.8-7.7); Neut % (Auto) 83.8 % (16.0-70.0); Platelet Count 169 th/mm3 (150-450); Red Blood Count 3.24 mil/mm3 (4.00-5.30); Red Cell Distribution Width 24.6 % (11.6-17.2); White Blood Count 14.4 th/mm3 (4.0-11.0)
[2018-04-10] MEDS: hydrALAZINE 50 MG Tablet PO PRN (04:50)
[2018-04-10 05:14] LABS: Alanine Aminotransferase 57 U/L (10-53); Albumin 2.8 g/dL (3.4-5.0); Alkaline Phosphatase 93 U/L (45-117); Anion Gap 11 meq/L (5-15); Aspartate Aminotransferase 34 U/L (15-37); Blood Urea Nitrogen 141 mg/dL (7-18); Calcium 9.7 mg/dL (8.5-10.1); Carbon Dioxide 31.1 meq/L (21.0-32.0); Chloride 96 meq/L (98-107); Glomerular Filtration Rate 34 mL/min (>89); Glucose,Random 201 mg/dL (74-106); Potassium 3.7 meq/L (3.5-5.1); Sodium 138 meq/L (136-145); Total Protein 6.8 g/dL (6.4-8.2)
[2018-04-10] MEDS: QUEtiapine 25 MG Tablet PO SCH ×3 (05:50→21:35)
--- NOTE | 2018-04-10 06:13 | XR ---
EXAM DATE: 04/10/2018 5:53 AM EDT AGE/SEX: 52 years / Female INDICATIONS: Shortness of breath. CLINICAL DATA: This is the patient's subsequent encounter. Patient reports that signs and symptoms h ave been present for 1 month and indicates a pain score of Nonresponsive. MEDICAL/SURGICAL HISTORY: Non-responsive. Non-responsive. COMPARISON: [facility] – [place], CHEST 1V SINGLE AP, 04/08/2018. . FINDINGS: Portable AP view of the chest demonstrates a normal size cardiac silhouette. ETT and nasogastric tube remain present. Right IJ central line has been removed. EKG lines overlie the patient. Patient is ro tated and underinflated and there is bilateral lower lung zone airspace consolidation with interstiti al opacities in the upper lung zones. No pneumothorax is visualized. CONCLUSION: Stable chest x-ray with bilateral lower lung zone airspace consolidation. Electronically signed by: Isaak Day MD 04/10/2018 6:12 AM EDT
--- NOTE | 2018-04-10 07:22 | P.PNCC ---
Subjective Subjective Remarks/Hospital Course: 52-year-old female with past medical history of diabetes mellitus, hypertension, hyperlipidemia, atrial fibrillation on chronic anticoagulation with warfarin, chronic diastolic heart failure, asthma, WISAM, peripheral vascular disease, super morbid obesity. She has been at [facility] since 03/02/18. Abeba JACOBO was called due to respiratory distress. When they arrived as she was found to be in respiratory distress with sats in the 70s. She was communicating with them and reportedly said "leave me alone". She then had PEA arrest. She received CPR reportedly 10-15 minutes and received 2 doses of epinephrine. LMA was placed by EVAC. LMA was removed and she was intubated by Dr. Daly after receiving etomidate 20 mg IV and succinylcholine. She has demonstrated purposeful movements post intubation, and is now on a propofol drip. She was recently admitted to [facility] 02/24-03/02 due to hypoglycemia, fall after isolated episode of diarrhea, hypoxia requiring HFNC. She has chronic interstitial changes on CXR. Reviewed records from [facility] which indicate she completed a 7 day course of Levaquin and has been on a prednisone taper. Current CXR shows bibasilar opacities. WBC is 16 ( previously 7.9). She has acute hypercapneic and hypoxemic respiratory failure. 03/19: Afebrile. Remains on 100% FiO2 PEEP of 12. Central has been placed for access due to multiple drips. Plan MRI brain today if respiratory status improves. Does not tolerate lying flat. Likely will need epoprostenol and rotaprone 03/20: Started on epoprostenol and currently on a rotor from bed. Currently on cisatracurium drip at 1 mcg/kg/min. Diuresing well. 03/21: Weaning down epoprostenol. Remains on cisatracurium drip at 6 mcg/kg/ min. Diuresis 6 L. Saturation was improved FiO2 down to 45%. 03/22: Hypothermic overnight. Currently euthermic. Excellent response to bumetanide drip. FiO2 down to 40%. PEEP down to 8. Possible discontinue paralytic agent today. 03/23: Resting comfortable in bed in no acute distress. Afebrile. Desaturated so placed back on rotor prone bed. Creatinine slowly increasing. 03/24: Afebrile. Worsening chest x-ray it appears to be volume overloaded again. +10 L past 24 hours. Will restart on bumetanide drip. Plan for bronchoscopy today. Switch to ceftazidime/avibactam secondary to ESBL positive Klebsiella pneumonia 03/25: FiO2 to 55%. Tolerating demanding drip with -2 L past 24 hours. Bronchoscopy results pending. Positive BM. Restarting tube feeding today 03/26: Cr continues to rise, although clinically continues to appear severely volume overloaded. fio2 70%. supine all night. off nimbex. off flolan. ID managing ESBL/MDRO/KPC Klebsiella and anaerobic bacteremia. 03/27: off rotaprone bed. multiple desat episodes overnight. on 100% fio2 and PEEP 10 this AM. good diuresis with net -2L/24h. bumex drip continues. awakens and follows commands. 03/28: not diuresing as well as yesterday. wbc uptrending. 2 more episodes of bradycardia, not associated with hypoxia. however, fio2 remains severely elevated. I increased her peep to 14. still arouses and moves all extremities. high concern for ongoing infectious etiology, but with high o2 requirements and intermittent bradycardia requiring atropine, at present too unstable for repeat imaging. 03/29: ct C/A/P without overt infectious source. does demonstrate radiographic evidence of biventricular dysfunction. bedside echo today demonstrates the same , and dilated IVC without respiratory variation. off vasopressors. required atropine for a HR of 15 once overnight. still very hypoxic: changed to APRV 5:1 , 28/0, 4/0.8. SUBJECTIVE 03/30: remains on APRV with hypoxia. multiple episodes of bradycardia and a 18 second pause yesterday. trialed on dobutamine but with multiple dysrhythmias. now on low-dose dopamine to mitigate bradycardia. adequate diuresis overnight. cxr improving slightly. still remains volume overloaded, and YOU persists. 03/31: mild improvements in fio2. remains on APRV. no more bradycardia today. still on dopamine to prevent pauses/bradycardia. YOU persists, but stable. unable to diurese yesterday and now net +2L despite fluid overload. must increase forced diuresis to improve hypoxemia. 04/01: Remains sedated, orally intubated on mechanical ventilation. Being diuresed. Started on Reglan in view of high gastric residuals and decreasing fentanyl as tolerated. 04/02: Remains sedated, orally intubated on APRV mode mechanical ventilation. 04/03: Remains sedated, orally intubated on mechanical ventilation. Awaiting family meeting with palliative care to decide goals of therapy. Being diuresed. 04/04: Remains sedated, orally intubated on mechanical ventilation. Switch to PRVC mode overnight. On 50% FiO2, PEEP +8. Family deciding regarding goals of therapy. 04/05: Remains sedated, orally intubated on mechanical ventilation. PEEP increased to +10 overnight due to hypoxia. 04/06: Remains sedated, orally intubated on mechanical ventilation. Worsening oxygenation since yesterday. Chest x-ray showed fluid overload. Resume Bumex twice daily yesterday in addition to Zaroxolyn PO. 04/07: Remains sedated, orally intubated on mechanical ventilation. Diuresed. Renal function remains a concern. Started on colistin nebs per ID due to very resistant organisms in sputum. Eventually needs tracheostomy and PEG tube placement. 04/08 Patient remains sedated with Versed and Fentanyl infusion. On Cardene drip.Had T:99.7 last night. Remains on high PEEP and FIO2( PEEP:15, FIO2: 65%) 04/09 Patient is intubated with Versed and Fentanyl drips. Tmax 100.3. Now on PRVC with PEEP:12 and FIO2 100% 8 Patient is sedated with Fentanyl and Versed drips. Flolan started yesterday. On PRVC with PEEP: 15 and FIO2 100%. Afebrile. Objective Vital Signs / I&O: Vital Signs 04/09/18 07:30 04/09/18 07:45 04/09/18 08:00 Temperature Pulse Rate 80 79 Respiratory Rate 26 H 23 34 H Blood Pressure 157/67 H Pulse Oximetry 90 L 92 L 91 L 04/09/18 08:30 04/09/18 09:00 04/09/18 09:30 Temperature Pulse Rate 77 80 76 Respiratory Rate 30 H 19 20 Blood Pressure 159/67 H Pulse Oximetry 92 L 92 L 94 L 04/09/18 10:00 04/09/18 10:30 04/09/18 11:00 Temperature Pulse Rate 75 73 70 Respiratory Rate 20 22 20 Blood Pressure 148/67 H 142/63 H Pulse Oximetry 93 L 91 L 92 L 04/09/18 11:30 04/09/18 11:50 04/09/18 12:00 Temperature Pulse Rate 69 67 72 Respiratory Rate 21 20 21 Blood Pressure 144/65 H Pulse Oximetry 93 L 92 L 93 L 04/09/18 12:30 04/09/18 13:00 04/09/18 13:30 Temperature Pulse Rate 66 62 62 Respiratory Rate 20 21 20 Blood Pressure 134/63 Pulse Oximetry 91 L 90 L 91 L 04/09/18 13:53 04/09/18 14:00 04/09/18 14:30 Temperature Pulse Rate 69 67 Respiratory Rate 21 20 Blood Pressure 136/65 Pulse Oximetry 90 L 90 L 92 L 04/09/18 14:44 04/09/18 15:00 04/09/18 15:01 Temperature Pulse Rate 61 66 65 Respiratory Rate 20 20 20 Blood Pressure 120/57 L 135/64 Pulse Oximetry 90 L 89 L 89 L 04/09/18 15:30 04/09/18 16:00 04/09/18 16:29 Temperature Pulse Rate 62 60 Respiratory Rate 20 20 20 Blood Pressure 132/58 L Pulse Oximetry 93 L 93 L 93 L 04/09/18 16:30 04/09/18 17:00 04/09/18 18:00 Temperature Pulse Rate 75 65 72 Respiratory Rate 22 20 Blood Pressure 135/59 L Pulse Oximetry 93 L 94 L 04/09/18 19:56 04/09/18 19:58 04/09/18 20:00 Temperature Pulse Rate 67 69 64 Respiratory Rate 20 20 21 Blood Pressure 168/83 H Pulse Oximetry 91 L 94 L 04/09/18 22:00 04/10/18 00:00 04/10/18 00:15 Temperature Pulse Rate 63 66 Respiratory Rate 20 21 Blood Pressure 138/63 Pulse Oximetry 95 95 04/10/18 02:00 04/10/18 03:22 04/10/18 04:00 Temperature 97.5 F L Pulse Rate 60 84 Respiratory Rate 23 19 Blood Pressure 163/70 H Pulse Oximetry 87 L 84 L 04/10/18 06:00 Temperature Pulse Rate 77 Respiratory Rate Blood Pressure Pulse Oximetry Intake & Output 04/09/18 04/10/18 04/10/18 18:59 06:59 18:59 Intake Total 1458 / 1458 1149 / 1149 50 / 50 Output Total 2300 / 2300 1700 / 1700 Balance -842 / -842 -551 / -551 50 / 50 Weight 131.5 kg Intake: IV 800 / 800 700 / 700 50 / 50 Versed Inj 50 mg In 50 ml @ 2 50 / 50 50 / 50 MG/HR 2 mls/hr IV.CONT TITRATE PRN Rx#:[id number] Vabomere Inj 2,000 MG In NS Inj 250 / 250 500 / 500 250 ML @ 83.333 mls/hr IV.SIG Q8H [facility] Rx#:[id number] fentaNYL 10 mcg/mL Premix Drip 500 / 500 2,500 mcg In 250 ml @ 50 MCG/HR 5 mls/hr IV.SIG TITRATE PRN Rx #:[id number] Flolan (30,000 ng/mL) Neb 37.5 200 / 200 ML In NS Inj 62.5 ML @ As Directed NEB Q8H [facility] Rx#: [id number] Tube Feeding 658 / 658 389 / 389 Water Bolus Amount 60 / 60 Output: Stool 100 / 100 100 / 100 Urine Amount (Catheter) 2200 / 2200 1600 / 1600 Indwelling Urethral Catheter 2200 / 2200 1600 / 1600 Other: Date of Last Bowel Movement 04/06/18 04/06/18 Result Diagrams: 04/10/18 04:20 04/10/18 04:20 Other Results: Laboratory Results - last 12 hr 04/09/18 04/09/18 04/10/18 20:27 23:57 04:01 WBC RBC Hgb Hct MCV MCH MCHC RDW Plt Count MPV Neut % (Auto) Lymph % (Auto) Hays % (Auto) Eos % (Auto) Baso % (Auto) Neut # (Auto) Lymph # (Auto) [place] # (Auto) Eos # (Auto) Baso # (Auto) WBC Differential Differential Comment Puncture Site Left radial Patient Temperature 98.6 O2 Saturation 84 L* ABG pH 7.42 ABG pCO2 49 H ABG pO2 53 L* ABG HCO3 31 H ABG O2 Content 10.1 L ABG Base Excess 6.7 H ABG Methemoglobin 1.6 Trevor Test Present Hemoglobin 8.5 L Carboxyhemoglobin 1.6 O2 Delivery Device Vent Vent Setting See comments Inspired O2 100 Critical Value Yes Sodium Potassium Chloride Carbon Dioxide Anion Gap BUN Creatinine Estimated GFR POC Glucose 244 H 228 H Random Glucose Calcium Total Bilirubin AST ALT Alkaline Phosphatase Total Protein Albumin 04/10/18 04/10/18 04/10/18 04:08 04:20 04:20 WBC 14.4 H RBC 3.24 L Hgb 8.7 L Hct 26.1 L MCV 80.5 MCH 26.9 L MCHC 33.4 RDW 24.6 H Plt Count 169 MPV 10.2 Neut % (Auto) 83.8 H Lymph % (Auto) 6.2 L Hays % (Auto) 9.7 H Eos % (Auto) 0.1 Baso % (Auto) 0.2 Neut # (Auto) 12.1 H Lymph # (Auto) 0.9 L Hays # (Auto) 1.4 H Eos # (Auto) 0.0 Baso # (Auto) 0.0 WBC Differential . Differential Comment Auto diff final Puncture Site Patient Temperature O2 Saturation ABG pH ABG pCO2 ABG pO2 ABG HCO3 ABG O2 Content ABG Base Excess ABG Methemoglobin Trevor Test Hemoglobin Carboxyhemoglobin O2 Delivery Device Vent Setting Inspired O2 Critical Value Sodium 138 Potassium 3.7 Chloride 96 L Carbon Dioxide 31.1 Anion Gap 11 BUN 141 H Creatinine 1.89 H Estimated GFR 34 L POC Glucose 201 H Random Glucose 201 H Calcium 9.7 Total Bilirubin 0.6 AST 34 ALT 57 H Alkaline Phosphatase 93 Total Protein 6.8 Albumin 2.8 L Imaging: Head CT 03/18/18 18:46 CONCLUSION: 1. Solitary 3 mm hyperdensity in the central [place] of uncertain significance. Differential considerations include a punctate calcification and acute hemorrhage. 2. No acute findings in the supratentorial brain. Head MRI 03/19/18 00:00 CONCLUSION: 1. No evidence of brainstem hemorrhage. 2. Small foci of encephalomalacia in the left occipital lobe and right cerebellum 3. No evidence of acute infarct, hemorrhage, mass or edema. 4. No evidence of enhancing intra-axial or extra-axial lesions. Venous Doppler Study 03/19/18 00:00 CONCLUSION: The study is negative for bilateral lower extremity deep venous thrombosis. Foot X-Ray 03/22/18 00:00 CONCLUSION: No acute bony destructive change. Previous amputations as above. Fairly marked soft tissue swelling of the forefoot. Abdomen X-Ray 03/26/18 00:00 CONCLUSION: Abdomen/Pelvis CT 03/28/18 00:00 CONCLUSION: 1. Minimal increase in the trace bilateral pleural effusions with compressive atelectasis in both bases. 2. Gallstones in a benign-appearing gallbladder 3. I don't see evidence for colitis. 4. I don't see inflammatory changes in the abdomen. Chest CT 03/28/18 00:00 CONCLUSION: 1. Biventricular cardiomegaly with coarse interstitial changes in both lungs. A component of this could be failure 2. Trace bilateral pleural effusions larger on the right.. These have decreased slightly in the interval. Foot MRI 03/28/18 00:00 CONCLUSION: 1. Difficult exam to interpret because of extensive soft tissue swelling. No obvious osteomyelitis. 2. Nuclear medicine tagged white cell study may help. Chest X-Ray 04/10/18 03:56 CONCLUSION: Stable chest x-ray with bilateral lower lung zone airspace consolidation. Objective Remarks: GENERAL: SKIN: Warm and dry. HEAD: Normocephalic. EYES: No scleral icterus. No injection or drainage. NECK: Supple, trachea midline. No JVD or lymphadenopathy. CARDIOVASCULAR: Regular rate and rhythm without murmurs, gallops, or rubs. RESPIRATORY: Breath sounds equal bilaterally. No accessory muscle use. GASTROINTESTINAL: Abdomen soft, non-tender, nondistended. MUSCULOSKELETAL: No cyanosis, or edema. Neuro: sedated and intubated. Assessment and Plan - Assessment and Plan Plan: Assessment: 52yF with severe ARDS and organ failure secondary to MDRO/ESBL/KPC Klebsiella and Veillonella bacteremia. remains very critically ill. does still appear to be volume overloaded combined with significant myocardial dysfunction. continue dopamine to prevent bradycardia. continue APRV mode of ventilation. continue forced diuresis. Family concerned about goals of care and if this level of care was consistent with patient's wishes. I think it is hernandez to get palliative care involved. however, it does appear that given her young age, we could successfully rehabilitate her to a functional status at least consistent with her prior functional status at her SNF, and possibly improved depending on her clinical course. Of course this would take months of rehabilitation, and will likely include trach/peg due to her severe ARDS and hypoxia. I would support aggressive measures at this point, unless it becomes clear that the patient has a strong opinion against such measures. Remains critically ill today with multiple ongoing life-threatening organ dysfunction. NEURO/PSYCH: Acute encephalopathy - secondary to hypercapnia, improving. Abnormal brain CT with 3 mm hyperdensity in central [place] Major depressive disorder NOS Chronic opioid use Encephalomalacia right cerebellum/left occipital lobe scheduled oxycodone 20mg po q4h Seroquel 50mg po q8h for delirium. versed and fentanyl for goal RASS -2. Monitor neuro status. Daily sedation vacation when clinically appropriate.. Followup CT brain - . Solitary 3 mm hyperdensity in the central [place] of uncertain significance. Differential considerations include a punctate calcification and acute hemorrhage RESP: Acute hypercapnic and hypoxemic respiratory failure Severe ARDS Acute asthma exacerbation Healthcare associated pneumonia WISAM/OHS Prior tobacco abuse Bilateral pleural effusions right 2.2 cm. Left 1.3 cm LMA was placed in the field by EVAC. Intubated in ED 03/18 Continue with vent support keep sats >92% On albuterol/ipratropium aerosols every 4 hours with albuterol aerosols every 2 hours as needed for dyspnea Weaned off epoprostenol 03/23. Flolan resumed 04/09 On PRVC RR 20, TV 550, IT:1.10, PEEP:12, FIO2: 85% On Solumederol 40mg IV daily CT thorax revealed right middle lobe/lower lobe consolidation left lower lobe consolidation. Right pleural effusion 2.2 cm. Left pleural effusion 1.3 cm Methylprednisolone succinate 40 mg IV every 12 hours. CXR today b/l lower lung zone airspace consolidation. CV: Hypertension Hyperlipidemia Chronic diastolic heart failure Paroxysmal atrial fibrillation on chronic anti-coagulation with warfarin Peripheral vascular disease/peripheral arterial disease Elevated troponin intermittent bradycardia Cor pulmonale biventricular dysfunction Monitor HR and BP keep MAP>65mmHg 2D echo 02/24/18ejection fraction 50%. Wall thickness upper limits of normal. Trace MR. Lactic acid cleared Continue atorvastatin 40 mg daily Doppler bilateral upper and lower extremities revealed no acute thrombus amlodipine 10mg po daily hydralazine 100mg po q8h, Clonidine patch Coreg 3.125 mg BID, GI: History of GERD Chronic pancreatitis insufficiency Hypoalbuminemia vital high-protein goal 45 cc an hour per GIs recommendation Famotidine for GI prophylaxis Docusate sodium/senna 1 tablet twice daily for bowel regimen Creon home medication 3 times daily FEN/RENAL: Acute kidney injury superimposed on CKD Chronic kidney disease stage III Acute severe intravascular volume overload with pulmonary edema [place] catheter was placed in the emergency department. Monitor renal function, I/O's, avoid nephrotoxins Cr: 1.89 UOP: 3.8L on Bumex 2mg TID, Zaroxolyn 5mg Q12 Renal is following- Dr. Fraser ID: Acute healthcare associated pneumonia -ESBL positive Klebsiella pneumonia Veillonella species bacteremia Metronidazole 500 every 6 hours, Avycaz, colistin nebs , Merrem per ID. Monitor for signs of infections ( Fever, WBC) Blood cultures 2 03/18 Veillonella spp. Repeat 03/20 no growth to date Sputum, ESBL positive Klebsiella pneumonia 04/04 Pneumococcal urinary antigens, influenza a and B and chlamydia and mycoplasma all pending/negative Antibiotics per ID. HEME: Leukocytosis Chronic anemia/normocytic Chronic anti-coagulation with warfarin 4 mg daily. INR target is 2-3. Monitor CBC daily. Follow trends. No indication for transfusion of blood products at this time. ENDO: Diabetes mellitus History of gout SSI q4h high scale Levemir 5 units SQ BID Holding glipizide 10 mg twice daily and insulin glargine/home medication Holding allopurinol 300 mg daily/home medication MSK: Elevated BMI Osteoporosis/osteoarthritis PT evaluate and treat PROPH: SCDs for DVT prophylaxis. Heparin SQ ACCESS: Right IJ CVL placed 03/19. Right axillary arterial line placed 03/19: must remain still critically ill. Doppler US B/l Upper and lower EXT negative for DVT on 03/19 Palliative care is following Per Dr. Major : Discussed at length with patient's brother at bedside previously. Explained to him the need for tracheostomy however patient needs to be weaned down further on mechanical ventilation prior to procedure. He tells me that patient would not want tracheostomy and mcfp placement based on his previous discussions with her. He tells me that she was not doing well for the last 6 months prior to her current hospitalization. Discussed with patient's son on 04/06 regarding need for tracheostomy PEG tube placement and possible mcfp placement. Also discussed the fact that patient has previously expressed to her brother that she would not want these procedures done. He tells me that he would be the final decision-maker and wishes to talk to his family before making any decisions and was reluctant to talk further with me. Critical care time 30 minutes, exclusive of separately billed procedures.
[2018-04-10] MEDS: Senna/Docusate Sodium 8.6/50 MG Tablet PO SCH ×2 (08:02→21:34)
[2018-04-10] MEDS: Famotidine 20 MG Tablet PO SCH ×2 (08:02→21:34)
[2018-04-10] MEDS: Lipase/Protease/Amylase 24/76/120 DR Capsule PO SCH ×3 (08:02→17:08)
[2018-04-10] MEDS: MethylPREDNISolone Sod Succinate Inj 40 MG/ML Vial IV.PUSH SCH (08:02)
[2018-04-10] MEDS: Chlorhexidine 0.12% Oral Kit 15 ML UDC OROPHARYNG SCH ×2 (08:03→21:32)
[2018-04-10] MEDS: amLODIPine 10 MG Tablet PO SCH (08:03)
[2018-04-10] MEDS: metOLazone 5 MG Tablet PO SCH (08:03)
[2018-04-10] MEDS: Insulin Detemir Inj 1,000 UNIT/10 ML Vial SQ SCH ×2 (08:06→21:33)
[2018-04-10] MEDS: Heparin - SQ 10,000 UNITS/ML Vial SQ SCH ×2 (08:25→21:33)
--- NOTE | 2018-04-10 10:49 | P.PNPAL ---
Reason for Visit Reason for visit: a. To assist with evaluation and management of symptoms including:dyspnea, pain. b. To assist medical decision maker(s) with: better understanding of current medical conditions; weighing benefits/burdens of medical treatment options; making medical treatment decisions. Subjective Subjective/Interval History: Nurse called the palliative care team on behalf of Dr. Terrell this AM to try and speak with family again about patient's condition. I spoke with Dr. Terrell who notes that patient is getting worse in spite of aggressive care. He feels that the CHF has been adequately treated and the declining status is likely due to her highly resistant pneumonia (Klebsiella ESBL+) and ARDS. Nurse reports she becomes asynchronous with vent when sedation is lowered and she is currently on 250 mcg/hr of fentanyl and 10 mg /hr of midazolam. It has become difficult to maintain 02 sats on 100% FI02 and high PEEP Clinical data: * Tmax 100.3. BP 163/70. Heart rate 60's to 80s * WBC 14.4, hemoglobin 8.7, platelets 169 * BUN 141, creatinine 1.89 , sodium 138, potassium 3.5, GFR 34 - still making urine * Total protein 6.8, albumin 2.8, tolerating tube feeding. * 04/04/18 - Sputum culture - ESBL + Klebsiella * Prior sputum cultures - ESBL + klebsiella pneumoniae MDRO, CARBA HYDROMETEOROLOGICAL TECHNICIAN positive. * 04/08/18 - CXR - consolidation both lower lobes, diffuse alveolar and interstitial infiltrate, cardiomegaly. No improving. ID following. . Family/Friend Interactions: I spoke by phone for 20 minutes with Rocael Hanna (son and family spokesperson). I updated him on the clinical situation and how in spite of our most determined efforts the patient appears to getting worse, not better. I specifically mentioned the challenges keeping her oxygenated in spite of near max vent settings. I discussed how going forward with tracheostomy was not possible at this time due to her vent needs. We discussed the antibiotic resistance of her pneumonia and the challenges that posed. I discussed the need for high levels of sedation to prevent her from fighting the ventilator. I asked him to speak once again with his sibs regarding what his mom would want under the circumstances. I emphasized that we might be able to keep her alive longer, but it is very unlikely that we will get her well enough to ever leave the hospital. I encouraged him and his sibs to reconsider code status. I indicated that if her heart stops or has a bad rhythm, even if we were able to resuscitate her again, it would be one more factor suggesting that our efforts are merely prolonging a dying process, not serving to get her better. Mr. Hanna let me know that family members have left town. he will try and call them I offered to speak to them if they had questions. In the meantime, Mr. Hanna was clear that: * He wants code status remaining as FULL CODE * He wants ongoing aggressive care to keep her alive. I also received a call from daughter -- Shobha. I updated her, but this call ended prematurely -- I don't know if she hung up or if one of us was accidentally disconnected. . Advance Directives Living Will: Never completed Health Care Surrogate: Never completed Durable Power of Compliance Quality Performance Analyst: Never completed Health Care Surrogate Name and Number: Rocael Hanna, family spokesperson [phone] Documented care wishes:: No written advanced directives. Objective Vital Signs: Vital Signs 04/09/18 10:30 04/09/18 11:00 04/09/18 11:30 Temperature Pulse Rate 73 70 69 Respiratory Rate 22 20 21 Blood Pressure 142/63 H Pulse Oximetry 91 L 92 L 93 L 04/09/18 11:50 04/09/18 12:00 04/09/18 12:30 Temperature Pulse Rate 67 72 66 Respiratory Rate 20 21 20 Blood Pressure 144/65 H Pulse Oximetry 92 L 93 L 91 L 04/09/18 13:00 04/09/18 13:30 04/09/18 13:53 Temperature Pulse Rate 62 62 Respiratory Rate 21 20 Blood Pressure 134/63 Pulse Oximetry 90 L 91 L 90 L 04/09/18 14:00 04/09/18 14:30 04/09/18 14:44 Temperature Pulse Rate 69 67 61 Respiratory Rate 21 20 20 Blood Pressure 136/65 120/57 L Pulse Oximetry 90 L 92 L 90 L 04/09/18 15:00 04/09/18 15:01 04/09/18 15:30 Temperature Pulse Rate 66 65 62 Respiratory Rate 20 20 20 Blood Pressure 135/64 Pulse Oximetry 89 L 89 L 93 L 04/09/18 16:00 04/09/18 16:29 04/09/18 16:30 Temperature Pulse Rate 60 75 Respiratory Rate 20 20 22 Blood Pressure 132/58 L Pulse Oximetry 93 L 93 L 93 L 04/09/18 17:00 04/09/18 18:00 04/09/18 19:56 Temperature Pulse Rate 65 72 67 Respiratory Rate 20 20 Blood Pressure 135/59 L Pulse Oximetry 94 L 91 L 04/09/18 19:58 04/09/18 20:00 04/09/18 22:00 Temperature Pulse Rate 69 64 63 Respiratory Rate 20 21 Blood Pressure 168/83 H Pulse Oximetry 94 L 04/10/18 00:00 04/10/18 00:15 04/10/18 02:00 Temperature Pulse Rate 66 60 Respiratory Rate 20 21 Blood Pressure 138/63 Pulse Oximetry 95 95 04/10/18 03:22 04/10/18 04:00 04/10/18 06:00 Temperature 97.5 F L Pulse Rate 84 77 Respiratory Rate 23 19 Blood Pressure 163/70 H Pulse Oximetry 87 L 84 L 04/10/18 08:00 Temperature Pulse Rate Respiratory Rate 22 Blood Pressure Pulse Oximetry 95 Intake & Output 04/09/18 04/10/18 04/10/18 18:59 06:59 18:59 Intake Total 1458 / 1458 1149 / 1149 50 / 50 Output Total 2300 / 2300 1700 / 1700 Balance -842 / -842 -551 / -551 50 / 50 Weight 131.5 kg Intake: IV 800 / 800 700 / 700 50 / 50 Versed Inj 50 mg In 50 ml @ 2 50 / 50 50 / 50 MG/HR 2 mls/hr IV.CONT TITRATE PRN Rx#:[id number] Vabomere Inj 2,000 MG In NS Inj 250 / 250 500 / 500 250 ML @ 83.333 mls/hr IV.SIG Q8H JACKI Rx#:[id number] fentaNYL 10 mcg/mL Premix Drip 500 / 500 2,500 mcg In 250 ml @ 50 MCG/HR 5 mls/hr IV.SIG TITRATE PRN Rx #:[id number] Flolan (30,000 ng/mL) Neb 37.5 200 / 200 ML In NS Inj 62.5 ML @ As Directed NEB Q8H JACKI Rx#: [id number] Tube Feeding 658 / 658 389 / 389 Water Bolus Amount 60 / 60 Output: Stool 100 / 100 100 / 100 Urine Amount (Catheter) 2200 / 2200 1600 / 1600 Indwelling Urethral Catheter 0 / 2200 1600 / 1600 Other: Date of Last Bowel Movement 04/06/18 04/06/18 Physical Exam: CONSTITUTIONAL/GENERAL: This is an obese, critically ill patient. TUBES/LINES/DRAINS: ETT, OG, right IJ central line, PIV, bilateral soft wrist restraints, [place], rectal tube, SCDs SKIN: No jaundice, rashes, or lesions. Ecchymoses on upper extremities. No wounds seen anteriorly. Skin temperature appropriate. Not diaphoretic. EYES: eyes closed. ENT: Unable to assess hearing. Nose without bleeding or purulent drainage. CARDIOVASCULAR: RRR. RESPIRATORY/CHEST: Diminished bibasilar with no appreciable rales. Scattered rhonchi bilaterally. GASTROINTESTINAL: Abdomen obese, soft, non-tender, nondistended OG in place. GENITOURINARY: Without palpable bladder distension. [place] catheter in place. 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 Legs revealed 2+ pitting edema bilateral lower extremities. NEUROLOGICAL:Sedated. PSYCHIATRIC: Sedated. Diagnostic Tests Laboratory: Laboratory Results - last 72 hr 04/07/18 04/07/18 04/07/18 12:55 15:58 16:35 WBC RBC Hgb Hct MCV MCH MCHC RDW Plt Count MPV Neut % (Auto) Lymph % (Auto) [place] % (Auto) Eos % (Auto) Baso % (Auto) Neut # (Auto) Lymph # (Auto) [place] # (Auto) Eos # (Auto) Baso # (Auto) WBC Differential Differential Comment Puncture Site Patient Temperature O2 Saturation ABG pH ABG pCO2 ABG pO2 ABG HCO3 ABG O2 Content ABG Base Excess ABG Methemoglobin Trevor Test Hemoglobin Carboxyhemoglobin O2 Delivery Device Vent Setting Inspired O2 Critical Value Sodium Potassium Chloride Carbon Dioxide Anion Gap BUN Creatinine Estimated GFR POC Glucose 243 H 251 H Random Glucose Calcium Total Bilirubin AST ALT Alkaline Phosphatase Total Protein Albumin Urine Color Yellow Urine Clarity Hazy H Urine pH 6.0 Ur Specific [place] 1.008 Urine Protein 30 H Urine Glucose (UA) Negative Urine Ketones Negative Urine Occult Blood Moderate H Urine Nitrate Negative Urine Bilirubin Negative Urine Urobilinogen Less than 2 Ur Leukocyte Esterase Moderate H Urine RBC 23 H Urine WBC 15 H Ur Squamous Epith Cells 1 Urine Bacteria Occasional H Hyaline Casts 4 Urine Mucus Few H Urine Yeast Many H Ur Yeast w Hyphae Occasional H 04/07/18 04/07/18 04/08/18 20:04 23:23 03:28 WBC RBC Hgb Hct MCV MCH MCHC RDW Plt Count MPV Neut % (Auto) Lymph % (Auto) [place] % (Auto) Eos % (Auto) Baso % (Auto) Neut # (Auto) Lymph # (Auto) [place] # (Auto) Eos # (Auto) Baso # (Auto) WBC Differential Differential Comment Puncture Site Patient Temperature O2 Saturation ABG pH ABG pCO2 ABG pO2 ABG HCO3 ABG O2 Content ABG Base Excess ABG Methemoglobin Trevor Test Hemoglobin Carboxyhemoglobin O2 Delivery Device Vent Setting Inspired O2 Critical Value Sodium Potassium Chloride Carbon Dioxide Anion Gap BUN Creatinine Estimated GFR POC Glucose 212 H 202 H 183 H Random Glucose Calcium Total Bilirubin AST ALT Alkaline Phosphatase Total Protein Albumin Urine Color Urine Clarity Urine pH Ur Specific [place] Urine Protein Urine Glucose (UA) Urine Ketones Urine Occult Blood Urine Nitrate Urine Bilirubin Urine Urobilinogen Ur Leukocyte Esterase Urine RBC Urine WBC Ur Squamous Epith Cells Urine Bacteria Hyaline Casts Urine Mucus Urine Yeast Ur Yeast w Hyphae 04/08/18 04/08/18 04/08/18 05:30 08:19 11:45 WBC RBC Hgb Hct MCV MCH MCHC RDW Plt Count MPV Neut % (Auto) Lymph % (Auto) [place] % (Auto) Eos % (Auto) Baso % (Auto) Neut # (Auto) Lymph # (Auto) [place] # (Auto) Eos # (Auto) Baso # (Auto) WBC Differential Differential Comment Puncture Site Patient Temperature O2 Saturation ABG pH ABG pCO2 ABG pO2 ABG HCO3 ABG O2 Content ABG Base Excess ABG Methemoglobin Trevor Test Hemoglobin Carboxyhemoglobin O2 Delivery Device Vent Setting Inspired O2 Critical Value Sodium 137 Potassium 3.7 Chloride 94 L Carbon Dioxide 31.4 Anion Gap 12 BUN 122 H Creatinine 1.93 H Estimated GFR 33 L POC Glucose 194 H 198 H Random Glucose 197 H Calcium 9.4 Total Bilirubin 0.6 AST 34 ALT 66 H Alkaline Phosphatase 79 Total Protein 6.0 L D Albumin 2.6 L Urine Color Urine Clarity Urine pH Ur Specific [place] Urine Protein Urine Glucose (UA) Urine Ketones Urine Occult Blood Urine Nitrate Urine Bilirubin Urine Urobilinogen Ur Leukocyte Esterase Urine RBC Urine WBC Ur Squamous Epith Cells Urine Bacteria Hyaline Casts Urine Mucus Urine Yeast Ur Yeast w Hyphae 04/08/18 04/08/18 04/08/18 12:16 15:50 15:56 WBC 10.6 RBC 3.07 L Hgb 8.2 L Hct 24.4 L MCV 79.5 L MCH 26.7 L MCHC 33.6 RDW 23.9 H Plt Count 169 MPV 9.3 Neut % (Auto) 96.5 H Lymph % (Auto) 1.7 L [place] % (Auto) 1.5 Eos % (Auto) 0.0 Baso % (Auto) 0.3 Neut # (Auto) 10.2 H Lymph # (Auto) 0.2 L [place] # (Auto) 0.2 Eos # (Auto) 0.0 Baso # (Auto) 0.0 WBC Differential . Differential Comment Auto diff final Puncture Site Art line Patient Temperature 98.6 O2 Saturation 86 L* ABG pH 7.42 ABG pCO2 46 H ABG pO2 58 L* ABG HCO3 29 H ABG O2 Content 9.8 L ABG Base Excess 4.5 H ABG Methemoglobin 1.6 Trevor Test Hemoglobin 8.0 L Carboxyhemoglobin 1.7 O2 Delivery Device Ventilator Vent Setting Prvc/ac Inspired O2 70 Critical Value Yes Sodium Potassium Chloride Carbon Dioxide Anion Gap BUN Creatinine Estimated GFR POC Glucose 247 H Random Glucose Calcium Total Bilirubin AST ALT Alkaline Phosphatase Total Protein Albumin Urine Color Urine Clarity Urine pH Ur Specific [place] Urine Protein Urine Glucose (UA) Urine Ketones Urine Occult Blood Urine Nitrate Urine Bilirubin Urine Urobilinogen Ur Leukocyte Esterase Urine RBC Urine WBC Ur Squamous Epith Cells Urine Bacteria Hyaline Casts Urine Mucus Urine Yeast Ur Yeast w Hyphae 04/08/18 04/08/18 04/09/18 20:20 23:28 04:20 WBC RBC Hgb Hct MCV MCH MCHC RDW Plt Count MPV Neut % (Auto) Lymph % (Auto) [place] % (Auto) Eos % (Auto) Baso % (Auto) Neut # (Auto) Lymph # (Auto) [place] # (Auto) Eos # (Auto) Baso # (Auto) WBC Differential Differential Comment Puncture Site Patient Temperature O2 Saturation ABG pH ABG pCO2 ABG pO2 ABG HCO3 ABG O2 Content ABG Base Excess ABG Methemoglobin Trevor Test Hemoglobin Carboxyhemoglobin O2 Delivery Device Vent Setting Inspired O2 Critical Value Sodium Potassium Chloride Carbon Dioxide Anion Gap BUN Creatinine Estimated GFR POC Glucose 266 H 209 H 154 H Random Glucose Calcium Total Bilirubin AST ALT Alkaline Phosphatase Total Protein Albumin Urine Color Urine Clarity Urine pH Ur Specific [place] Urine Protein Urine Glucose (UA) Urine Ketones Urine Occult Blood Urine Nitrate Urine Bilirubin Urine Urobilinogen Ur Leukocyte Esterase Urine RBC Urine WBC Ur Squamous Epith Cells Urine Bacteria Hyaline Casts Urine Mucus Urine Yeast Ur Yeast w Hyphae 04/09/18 04/09/18 04/09/18 05:01 05:01 08:42 WBC 12.2 H RBC 3.06 L Hgb 8.0 L Hct 24.4 L MCV 79.5 L MCH 26.0 L MCHC 32.7 RDW 24.4 H Plt Count 173 MPV 9.8 Neut % (Auto) 83.8 H Lymph % (Auto) 5.4 L [place] % (Auto) 10.5 H Eos % (Auto) 0.1 Baso % (Auto) 0.2 Neut # (Auto) 10.2 H Lymph # (Auto) 0.7 L [place] # (Auto) 1.3 H Eos # (Auto) 0.0 Baso # (Auto) 0.0 WBC Differential . Differential Comment Auto diff final Puncture Site Patient Temperature O2 Saturation ABG pH ABG pCO2 ABG pO2 ABG HCO3 ABG O2 Content ABG Base Excess ABG Methemoglobin Trevor Test Hemoglobin Carboxyhemoglobin O2 Delivery Device Vent Setting Inspired O2 Critical Value Sodium 138 Potassium 3.5 Chloride 95 L Carbon Dioxide 30.1 Anion Gap 13 BUN 128 H Creatinine 1.80 H Estimated GFR 35 L POC Glucose 135 H Random Glucose 145 H Calcium 9.7 Total Bilirubin 0.6 AST 31 ALT 60 H Alkaline Phosphatase 85 Total Protein 6.4 Albumin 2.7 L Urine Color Urine Clarity Urine pH Ur Specific [place] Urine Protein Urine Glucose (UA) Urine Ketones Urine Occult Blood Urine Nitrate Urine Bilirubin Urine Urobilinogen Ur Leukocyte Esterase Urine RBC Urine WBC Ur Squamous Epith Cells Urine Bacteria Hyaline Casts Urine Mucus Urine Yeast Ur Yeast w Hyphae 04/09/18 04/09/18 04/09/18 16:26 20:27 23:57 WBC RBC Hgb Hct MCV MCH MCHC RDW Plt Count MPV Neut % (Auto) Lymph % (Auto) [place] % (Auto) Eos % (Auto) Baso % (Auto) Neut # (Auto) Lymph # (Auto) [place] # (Auto) Eos # (Auto) Baso # (Auto) WBC Differential Differential Comment Puncture Site Patient Temperature O2 Saturation ABG pH ABG pCO2 ABG pO2 ABG HCO3 ABG O2 Content ABG Base Excess ABG Methemoglobin Trevor Test Hemoglobin Carboxyhemoglobin O2 Delivery Device Vent Setting Inspired O2 Critical Value Sodium Potassium Chloride Carbon Dioxide Anion Gap BUN Creatinine Estimated GFR POC Glucose 224 H 244 H 228 H Random Glucose Calcium Total Bilirubin AST ALT Alkaline Phosphatase Total Protein Albumin Urine Color Urine Clarity Urine pH Ur Specific [place] Urine Protein Urine Glucose (UA) Urine Ketones Urine Occult Blood Urine Nitrate Urine Bilirubin Urine Urobilinogen Ur Leukocyte Esterase Urine RBC Urine WBC Ur Squamous Epith Cells Urine Bacteria Hyaline Casts Urine Mucus Urine Yeast Ur Yeast w Hyphae 04/10/18 04/10/18 04/10/18 04:01 04:08 04:20 WBC 14.4 H RBC 3.24 L Hgb 8.7 L Hct 26.1 L MCV 80.5 MCH 26.9 L MCHC 33.4 RDW 24.6 H Plt Count 169 MPV 10.2 Neut % (Auto) 83.8 H Lymph % (Auto) 6.2 L [place] % (Auto) 9.7 H Eos % (Auto) 0.1 Baso % (Auto) 0.2 Neut # (Auto) 12.1 H Lymph # (Auto) 0.9 L [place] # (Auto) 1.4 H Eos # (Auto) 0.0 Baso # (Auto) 0.0 WBC Differential . Differential Comment Auto diff final Puncture Site Left radial Patient Temperature 98.6 O2 Saturation 84 L* ABG pH 7.42 ABG pCO2 49 H ABG pO2 53 L* ABG HCO3 31 H ABG O2 Content 10.1 L ABG Base Excess 6.7 H ABG Methemoglobin 1.6 Trevor Test Present Hemoglobin 8.5 L Carboxyhemoglobin 1.6 O2 Delivery Device Vent Vent Setting See comments Inspired O2 100 Critical Value Yes Sodium Potassium Chloride Carbon Dioxide Anion Gap BUN Creatinine Estimated GFR POC Glucose 201 H Random Glucose Calcium Total Bilirubin AST ALT Alkaline Phosphatase Total Protein Albumin Urine Color Urine Clarity Urine pH Ur Specific [place] Urine Protein Urine Glucose (UA) Urine Ketones Urine Occult Blood Urine Nitrate Urine Bilirubin Urine Urobilinogen Ur Leukocyte Esterase Urine RBC Urine WBC Ur Squamous Epith Cells Urine Bacteria Hyaline Casts Urine Mucus Urine Yeast Ur Yeast w Hyphae 04/10/18 04/10/18 04:20 07:58 WBC RBC Hgb Hct MCV MCH MCHC RDW Plt Count MPV Neut % (Auto) Lymph % (Auto) [place] % (Auto) Eos % (Auto) Baso % (Auto) Neut # (Auto) Lymph # (Auto) [place] # (Auto) Eos # (Auto) Baso # (Auto) WBC Differential Differential Comment Puncture Site Patient Temperature O2 Saturation ABG pH ABG pCO2 ABG pO2 ABG HCO3 ABG O2 Content ABG Base Excess ABG Methemoglobin Trevor Test Hemoglobin Carboxyhemoglobin O2 Delivery Device Vent Setting Inspired O2 Critical Value Sodium 138 Potassium 3.7 Chloride 96 L Carbon Dioxide 31.1 Anion Gap 11 BUN 141 H Creatinine 1.89 H Estimated GFR 34 L POC Glucose 208 H Random Glucose 201 H Calcium 9.7 Total Bilirubin 0.6 AST 34 ALT 57 H Alkaline Phosphatase 93 Total Protein 6.8 Albumin 2.8 L Urine Color Urine Clarity Urine pH Ur Specific [place] Urine Protein Urine Glucose (UA) Urine Ketones Urine Occult Blood Urine Nitrate Urine Bilirubin Urine Urobilinogen Ur Leukocyte Esterase Urine RBC Urine WBC Ur Squamous Epith Cells Urine Bacteria Hyaline Casts Urine Mucus Urine Yeast Ur Yeast w Hyphae Result Diagrams: 04/10/18 04:20 04/10/18 04:20 Microbiology: Microbiology 04/04/18 15:44 Gram Stain - Final Sputum - Endotracheal Sputum Culture - Final Klebsiella pneumoniae ESBL pos Multidrug Resistant 03/24/18 16:30 Fungal Smear - Final Bronchial Washings - Left Lower Lobe No fungal elements seen Fungal Culture - Preliminary No growth in 2 weeks 03/24/18 16:30 Acid Fast Bacilli Smear - Final Bronchial Washings - Left Lower Lobe No acid fast bacilli seen Mycobacterial Culture - Preliminary No growth in 2 weeks Imaging: Chest X-Ray 03/18/18 17:52 CONCLUSION: 1. ET tube in good position. 2. Increasing patchy areas of consolidation in both lower lungs. Chest CT 03/18/18 18:46 CONCLUSION: 1. Bilateral multi segmental consolidation in the mid and lower lungs and small bilateral pleural effusions. 2. Several enlarged middle mediastinal lymph nodes. Head CT 03/18/18 18:46 CONCLUSION: 1. Solitary 3 mm hyperdensity in the central [place] of uncertain significance. Differential considerations include a punctate calcification and acute hemorrhage. 2. No acute findings in the supratentorial brain. Head MRI 03/19/18 00:00 CONCLUSION: 1. No evidence of brainstem hemorrhage. 2. Small foci of encephalomalacia in the left occipital lobe and right cerebellum 3. No evidence of acute infarct, hemorrhage, mass or edema. 4. No evidence of enhancing intra-axial or extra-axial lesions. Venous Doppler Study 03/19/18 00:00 CONCLUSION: The study is negative for bilateral upper extremity deep venous thrombosis. Venous Doppler Study 03/19/18 00:00 CONCLUSION: The study is negative for bilateral lower extremity deep venous thrombosis. Chest X-Ray 03/19/18 07:33 CONCLUSION: 1. Lines and tubes as detailed above without pneumothorax. 2. Radiographic pattern most consistent with pulmonary edema. This is unchanged. Chest X-Ray 03/20/18 06:00 CONCLUSION: No significant change. Chest X-Ray 03/21/18 05:14 CONCLUSION: Decreased bilateral pulmonary opacity suggesting decreased pulmonary edema. Abdomen X-Ray 03/22/18 00:00 CONCLUSION: Mild ileus. NG tip in stomach. Foot X-Ray 03/22/18 00:00 CONCLUSION: No acute bony destructive change. Previous amputations as above. Fairly marked soft tissue swelling of the forefoot. Chest X-Ray 03/22/18 06:00 CONCLUSION: Increased left mid lung pulmonary consolidation versus atelectasis. Chest X-Ray 03/23/18 06:00 CONCLUSION: Worsening patchy airspace disease, particularly in the left hemithorax. Life support tubes are stable in position Chest X-Ray 03/24/18 00:00 CONCLUSION: Mild interval improvement in bilateral pulmonary infiltrates. Chest X-Ray 03/24/18 06:00 CONCLUSION: Worsening bilateral pulmonary infiltrates, particularly in the right upper lobe Chest X-Ray 03/25/18 00:00 CONCLUSION: 1. No significant change in the bilateral pulmonary infiltrates most characteristic of pulmonary edema. Chest X-Ray 03/25/18 06:00 CONCLUSION: 1. Stable biapical airspace disease with left basilar consolidation and possible effusion. 2. Stable position of life-support tubes. Abdomen X-Ray 03/26/18 00:00 CONCLUSION: Abdomen/Pelvis CT 03/28/18 00:00 CONCLUSION: 1. Minimal increase in the trace bilateral pleural effusions with compressive atelectasis in both bases. 2. Gallstones in a benign-appearing gallbladder 3. I don't see evidence for colitis. 4. I don't see inflammatory changes in the abdomen. Chest CT 03/28/18 00:00 CONCLUSION: 1. Biventricular cardiomegaly with coarse interstitial changes in both lungs. A component of this could be failure 2. Trace bilateral pleural effusions larger on the right.. These have decreased slightly in the interval. Foot MRI 03/28/18 00:00 CONCLUSION: 1. Difficult exam to interpret because of extensive soft tissue swelling. No obvious osteomyelitis. 2. Nuclear medicine tagged white cell study may help. Chest X-Ray 03/30/18 07:48 CONCLUSION: Improving upper lobe aeration with decreasing consolidation and congestion. Stable supportive devices. Chest X-Ray 04/01/18 05:00 CONCLUSION: Bilateral airspace opacities which are increased in the right lung base. Chest X-Ray 04/04/18 05:00 CONCLUSION: Persistent partially consolidated infiltrates the mid and lower lungs bilaterally. Chest X-Ray 04/05/18 16:00 CONCLUSION: Bilateral airspace disease has worsened slightly since April 04. Endotracheal tube, nasogastric tube and right central line unchanged. Chest X-Ray 04/08/18 05:00 CONCLUSION: No interval change. Chest X-Ray 04/10/18 03:56 CONCLUSION: Stable chest x-ray with bilateral lower lung zone airspace consolidation. Procedures: * Right IJ central line * Intubated . Assessment and Plan - Disease Oriented Problem List (1) ARDS (adult respiratory distress syndrome) (2) Acute respiratory failure with hypoxemia (3) HCAP (healthcare-associated pneumonia) Comment: Multi drug resistant -- Klebsiella ESBL + (4) Diabetes mellitus type 2 in obese (5) Atrial fibrillation (6) Chronic kidney disease, stage III (moderate) (7) Hypertension (8) Hypoglycemia due to type 2 diabetes mellitus (9) Lactic acid acidosis (10) Super obesity (11) WISAM (obstructive sleep apnea) (12) Asthma (13) H/O osteomyelitis (14) Diastolic heart failure (15) Diabetes (16) Acute renal failure superimposed on stage 3 chronic kidney disease - Symptom Scale (1) Pain 0-10 Scale: Unable to quantify (2) Dyspnea 0-10 Scale: Unable to quantify (3) Encephalopathy 0-10 Scale: Unable to quantify Pertinent Non-Medical Issues: Psychosocial: Never . Supported by her son, Rocael. Has 4 children ( Rocael, Jose Juan, Manny and Shobha). Spiritual: Rastafari. Legal: Patient is not capacitated to make her own health care decisions, uncertain if she will regain capacity. No written advanced directives. According to [place] statutes, health care proxy decision making falls to the majority of adult children, she has 4 children. Son Rocael is serving as spokesperson for the children. Jose Juan has opted out of decision making. Ethical issues impacting care: None. Important Contacts: * Rocael Hanna, son: [phone] serving as family spokesperson * Shobha Hanna, daughter: [phone] - defers decision making to Rocael. * Jose Juan Hanna, son: opted out of decision making. * Manny Hanna, son: has not called per multiple requests, no phone number provided. * Carolyn Durand, sister: [phone] . Prognosis: 03/31/18 per automotive refinisher: Miss Hanna is a 52 year old female admitted with severe ARDS and organ failure secondary to MDRO/ESBL/KPC Klebsiella and Veillonella bacteremia. remains very critically ill. does still appear to be volume overloaded combined with significant myocardial dysfunction. continue dopamine to prevent bradycardia. continue APRV mode of ventilation. continue forced diuresis. Family concerned about goals of care and if this level of care was consistent with patient's wishes. I think it is hernandez to get palliative care involved. however, it does appear that given her young age, we could successfully rehabilitate her to a functional status at least consistent with her prior functional status at her SN[facility], and possibly improved depending on her clinical course. Of course this would take months of rehabilitation, and will likely include trach/peg due to her severe ARDS and hypoxia. I would support aggressive measures at this point, unless it becomes clear that the patient has a strong opinion against such measures. Remains critically ill today with multiple ongoing life-threatening organ dysfunction. Code Status: Full Code Plan: == Code Status: FULL CODE == Decision making: Patient is not capacitated to make her own health care decisions, and there is no reasonable probability at this time that she will recover capacity. . No written advanced directives. According to [place] statutes, health care proxy decision making falls to the majority of adult children in this case -- she has 4 children. Son Rocael is serving as spokesperson for the children. Jose Juan has opted out of decision making. == Goals of medical treatment: See HPI note. In spite of reviewing patient's declining status with son, Rocael (spokesperson for family) , he says the reaffirms that the family desires continued aggressive care including FULL CODE , and trach and PEG when possible. He understands that the current treatments are likely only serving to prolong an uncomfortable dying process and she is unlikely to survive this hospitalization. == SYMPTOMS: * dyspnea: on mech vent, sedated. Too unstable for trach and PEG at this time. * Pain: Multiple possible sources of pain. Sedated on fentanyl and versed -- unable to localize, rate, qualify pain. No obvious signs of pain while medicated. . No new medication recommendations at this time. * encephalopathy == Palliative care will continue to follow to assist with symptom management and to further clarify goals of medical treatment as the clinical course evolves. . Time Spent Total Floor Time (mins): 60 (Total floor time included chart review; patient exam; collaboration with primary nurse; phone call to Dr. Terrell; and above referenced telphone conversations with family members. ) >50% Time in Counseling or Coordination of Care: Yes Attestation Attestation: To help prompt me to consider important information that might be impacting today's encounter and assessment, information from prior notes written by myself or my colleagues may have been "brought forward" into today's note. My signature on this note, however, is an attestation that I personally performed the exam, history, and/or decision-making noted today, and, unless otherwise indicated, the interactions with patient, family, and staff as well as the review of records all occurred today. I also attest that the listed assessment and stated plan reflect my best clinical judgment today based on the combination of historical information, prior notes, and today's exam/ interactions. When time spent is documented, it refers only to time spent today by the signer, or if indicated, combined time spent today by collaborating physician/nurse practitioner. .
--- NOTE | 2018-04-10 11:26 | P.DIET ---
Nutritional Evaluation Type of nutrition evaluation: follow-up Nutrition consult regarding: Tube Feeding Nutrition screening: [facility] [place] [facility] [place] - Diagnosis Cardiac Arrest - Objective [place] body weight: 100 kg % IBW: 295 Body Weight Used for Calculations: IBW (45.5kg) Energy Needs - Lower Range (kCal/kg): 25 Energy Needs - Upper Range (kCal/kg): 30 Lower Limit kCal/kg (kCals): 1,138 Upper Limit kCal/kg (kCals): 1,365 Lower Limit Protein Factor (Grams per Kg): 2.0 Upper Limit Protein Factor (Grams per Kg): 2.5 Lower Protein Needs (Protein): 91 Upper Protein Needs (Protein): 114 Dietitian Reviewed in Medical Record: Curent medications, Intake & Output, Labs , Tube feeding, Wound/DTI Diet Order: TF only Wound Care Note: 03/20 Partial thickness skin loss visualized on left inner thigh area related to moisture. Objective Comments: PMH: DM, HTN, HLD, Afib, Diastolic heart failure WISAM, PVD, CKD Stage III, GERD, chronic pancreatitis, super morbid obesity Labs include: WBC 14.4, Hgb 8.7, Hct 26.1, Cr 1.89, Glu 201, POC Glu 228, 208, 201 Meds include: Creon, Lipitor, Levemir, Fentanyl, Versed, Novolin R, Solumedrol, Vit D3, Bumex Feeding - Current Tube Feeding Tube Feeding Product: Vital High Protein Tube Feeding Method: Pump Tube Feeding Rate: 45 Current kCals Provided by Tube Feedin,080 Current Protein Provided by Tube Feeding (gPRO): 95 Current Free H2O Provided (m/l): 923 Assessment Assessment: Pt at nutritional risk r/t current clinical status and the need for a TF for nutrition support. Pt remains intubated and sedated on fentanyl and versed. Pt' s nutritional needs as assessed above using ASPEN guidelines for protein needs. TF Vital High Protein is currently running at 45 ml/hr and tolerating it well. To meet pt's nutritional needs, a goal rate of 55 ml/hr is necessary. Noted UOP , Cr level, Glucose levels. TF as recommended above will provide pt with 0.87 gms protein per kg actual body wt, which is reasonable for CKD Stg III. Pt on Novolin R and Levemir. The above TF will provide 1.10 gms carbohydrate per kg actual body wt. TF will provide a total of 1320 kcals, 116 gms protein and 1104 mls free water. Reviewed palliative care note, family continues to want aggressive care, pt's clinical status declining. Will continue to monitor TF, clinical course. Recommendations: TF: Vital High Protein currently being tolerated at 45 ml/hr, please increase to goal rate of 55 ml/hr Dietitian to Monitor: Renal labs, Glucose level, Intake & Output, Tube feeding tolerance, Weight change, Wound/skin status, Medical course
--- NOTE | 2018-04-10 11:37 | P.PNNP ---
Subjective Interval history: Remains intubated and unresponsive. High oxygen requirement. On 90 % FiO2 (was at 100% earlier), 15 of PEEP. BUN continues to elevate, creatinine stable. Edema persists. <Myrtle Levi - Last Filed: 04/10/18 11:31> Physical Exam Vital signs: Vital Signs 04/09/18 11:50 04/09/18 12:00 04/09/18 12:30 Temperature Pulse Rate 67 72 66 Respiratory Rate 20 21 20 Blood Pressure 144/65 H Pulse Oximetry 92 L 93 L 91 L 04/09/18 13:00 04/09/18 13:30 04/09/18 13:53 Temperature Pulse Rate 62 62 Respiratory Rate 21 20 Blood Pressure 134/63 Pulse Oximetry 90 L 91 L 90 L 04/09/18 14:00 04/09/18 14:30 04/09/18 14:44 Temperature Pulse Rate 69 67 61 Respiratory Rate 21 20 20 Blood Pressure 136/65 120/57 L Pulse Oximetry 90 L 92 L 90 L 04/09/18 15:00 04/09/18 15:01 04/09/18 15:30 Temperature Pulse Rate 66 65 62 Respiratory Rate 20 20 20 Blood Pressure 135/64 Pulse Oximetry 89 L 89 L 93 L 04/09/18 16:00 04/09/18 16:29 04/09/18 16:30 Temperature Pulse Rate 60 75 Respiratory Rate 20 20 22 Blood Pressure 132/58 L Pulse Oximetry 93 L 93 L 93 L 04/09/18 17:00 04/09/18 18:00 04/09/18 19:56 Temperature Pulse Rate 65 72 67 Respiratory Rate 20 20 Blood Pressure 135/59 L Pulse Oximetry 94 L 91 L 04/09/18 19:58 04/09/18 20:00 04/09/18 22:00 Temperature Pulse Rate 69 64 63 Respiratory Rate 20 21 Blood Pressure 168/83 H Pulse Oximetry 94 L 04/10/18 00:00 04/10/18 00:15 04/10/18 02:00 Temperature Pulse Rate 66 60 Respiratory Rate 20 21 Blood Pressure 138/63 Pulse Oximetry 95 95 04/10/18 03:22 04/10/18 04:00 04/10/18 06:00 Temperature 97.5 F L Pulse Rate 84 77 Respiratory Rate 23 19 Blood Pressure 163/70 H Pulse Oximetry 87 L 84 L 04/10/18 08:00 Temperature Pulse Rate Respiratory Rate 22 Blood Pressure Pulse Oximetry 95 Intake & Output 04/09/18 04/10/18 04/10/18 18:59 06:59 18:59 Intake Total 1458 / 1458 1149 / 1149 50 / 50 Output Total 2300 / 2300 1700 / 1700 Balance -842 / -842 -551 / -551 50 / 50 Weight 131.5 kg Intake: IV 800 / 800 700 / 700 50 / 50 Versed Inj 50 mg In 50 ml @ 2 50 / 50 50 / 50 MG/HR 2 mls/hr IV.CONT TITRATE PRN Rx#:[id number] Vabomere Inj 2,000 MG In NS Inj 250 / 250 500 / 500 250 ML @ 83.333 mls/hr IV.SIG Q8H JACKI Rx#:[id number] fentaNYL 10 mcg/mL Premix Drip 500 / 500 2,500 mcg In 250 ml @ 50 MCG/HR 5 mls/hr IV.SIG TITRATE PRN Rx #:[id number] Flolan (30,000 ng/mL) Neb 37.5 200 / 200 ML In NS Inj 62.5 ML @ As Directed NEB Q8H JACKI Rx#: [id number] Tube Feeding 658 / 658 389 / 389 Water Bolus Amount 60 / 60 Output: Stool 100 / 100 100 / 100 Urine Amount (Catheter) 2200 / 2200 1600 / 1600 Indwelling Urethral Catheter 2200 / 2200 1600 / 1600 Other: Date of Last Bowel Movement 04/06/18 04/06/18 04/10/18 - Constitutional no acute distress, morbidly obese - Routine HEENT Exam Head: Present: normocephalic - Routine Neck Exam Present: supple, full ROM. Absent: JVD - Routine Respiratory Exam Present: patient mechanically ventilated, crackles, diminished air movement. Absent: accessory muscle use, stridor, wheezes - Routine Cardiovascular Exam Present: RRR, S1, S2. Absent: murmur - Routine Abdominal Exam Present: soft, normoactive bowel sounds - Routine Extremities Exam Present: edema, full ROM, pulses intact, amputation - Routine Skin Exam Present: intact, dry, warm - Routine Neurological Exam sedated on the vent, moves to tactile stimulation . - Detailed Neurological Exam: Coma Scale Eye Opening: None Verbal Response: None Motor Response: Extension Gianni Coma Scale Total: 4 - Routine Psychiatric Exam Present: unable to assess - Urinary Catheter Management Indwelling Urethral Catheter Cath placed during this visit: yes Reason for continuing: Hourly intake/output Insertion date: 03/18/18 Insertion time: 21:00 <Myrtle Levi - Last Filed: 04/10/18 11:31> Vital signs: Vital Signs 04/09/18 14:44 04/09/18 15:00 04/09/18 15:01 Temperature Pulse Rate 61 66 65 Respiratory Rate 20 20 20 Blood Pressure 120/57 L 135/64 Pulse Oximetry 90 L 89 L 89 L 04/09/18 15:30 04/09/18 16:00 04/09/18 16:29 Temperature Pulse Rate 62 60 Respiratory Rate 20 20 20 Blood Pressure 132/58 L Pulse Oximetry 93 L 93 L 93 L 04/09/18 16:30 04/09/18 17:00 04/09/18 18:00 Temperature Pulse Rate 75 65 72 Respiratory Rate 22 20 Blood Pressure 135/59 L Pulse Oximetry 93 L 94 L 04/09/18 19:56 04/09/18 19:58 04/09/18 20:00 Temperature Pulse Rate 67 69 64 Respiratory Rate 20 20 21 Blood Pressure 168/83 H Pulse Oximetry 91 L 94 L 04/09/18 22:00 04/10/18 00:00 04/10/18 00:15 Temperature Pulse Rate 63 66 Respiratory Rate 20 21 Blood Pressure 138/63 Pulse Oximetry 95 95 04/10/18 02:00 04/10/18 03:22 04/10/18 04:00 Temperature 97.5 F L Pulse Rate 60 84 Respiratory Rate 23 19 Blood Pressure 163/70 H Pulse Oximetry 87 L 84 L 04/10/18 06:00 04/10/18 08:00 04/10/18 08:01 Temperature 99.2 F Pulse Rate 77 87 87 Respiratory Rate 22 21 Blood Pressure 160/102 H Pulse Oximetry 89 L 89 L 04/10/18 08:30 04/10/18 09:00 04/10/18 09:01 Temperature Pulse Rate 85 78 77 Respiratory Rate 19 19 21 Blood Pressure 131/58 L Pulse Oximetry 92 L 94 L 94 L 04/10/18 09:30 04/10/18 10:00 04/10/18 10:30 Temperature Pulse Rate 80 71 67 Respiratory Rate 17 20 20 Blood Pressure 120/56 L Pulse Oximetry 91 L 96 94 L 04/10/18 11:00 04/10/18 11:30 04/10/18 12:00 Temperature 99 F Pulse Rate 73 69 66 Respiratory Rate 20 20 20 Blood Pressure 135/58 L Pulse Oximetry 90 L 94 L 93 L 04/10/18 12:01 04/10/18 12:28 04/10/18 12:30 Temperature Pulse Rate 66 66 Respiratory Rate 20 20 20 Blood Pressure 122/60 Pulse Oximetry 93 L 94 L 94 L 04/10/18 13:00 04/10/18 13:30 04/10/18 14:00 Temperature Pulse Rate 70 68 68 Respiratory Rate 19 20 Blood Pressure 123/56 L Pulse Oximetry 94 L 95 Intake & Output 04/09/18 04/10/18 04/10/18 18:59 06:59 18:59 Intake Total 1458 / 1458 1149 / 1149 350 / 350 Output Total 2300 / 2300 1700 / 1700 1000 / 1000 Balance -842 / -842 -551 / -551 -650 / -650 Weight 131.5 kg Intake: IV 800 / 800 700 / 700 350 / 350 Versed Inj 50 mg In 50 ml @ 2 50 / 50 100 / 100 MG/HR 2 mls/hr IV.CONT TITRATE PRN Rx#:[id number] Vabomere Inj 2,000 MG In NS Inj 250 / 250 500 / 500 250 ML @ 83.333 mls/hr IV.SIG Q8H JACKI Rx#:[id number] fentaNYL 10 mcg/mL Premix Drip 500 / 500 250 / 250 2,500 mcg In 250 ml @ 50 MCG/HR 5 mls/hr IV.SIG TITRATE PRN Rx #:[id number] Flolan (30,000 ng/mL) Neb 37.5 200 / 200 ML In NS Inj 62.5 ML @ As Directed NEB Q8H JACKI Rx#: [id number] Tube Feeding 658 / 658 389 / 389 Water Bolus Amount 60 / 60 Output: Stool 100 / 100 100 / 100 Urine Amount (Catheter) 2200 / 2200 1600 / 1600 1000 / 1000 Indwelling Urethral Catheter 2200 / 2200 1600 / 1600 1000 / 1000 Other: Date of Last Bowel Movement 0804/06/18 04/10/18 - Urinary Catheter Management Indwelling Urethral Catheter Cath placed during this visit: no <Alverto Fraesr - Last Filed: 04/10/18 14:39> Assessment and Plan - Assessment (1) Acute renal failure superimposed on stage 3 chronic kidney disease Code(s): N17.9 - Acute kidney failure, unspecified; N18.3 - Chronic kidney disease, stage 3 (moderate) Status: Acute Plan: Her baseline creatinine runs 1.6-2, GFR 44. YOU most likely due to cardiac arrest and decreased renal perfusion. Her creatinine is stable; she is non oliguric. High and disproportionately elevated BUN is getting worse. Consider stopping Solumedrol. Hold metolazone as it may be due to aggressive diuresis. It is possible she has an upper GI bleed. On Bumex TID 2 mg. Responding to diuretics. Goal is negative balance. Her weight is unchanged from recorded admission weight. Repeat labs daily. Avoid nephrotoxic agents,dose appropriate to renal status. (2) Acute respiratory failure with hypoxemia Code(s): J96.01 - Acute respiratory failure with hypoxia Status: Acute Plan: On the vent, requiring high O2 and PEEP. Continue diuresis Serial ABGs reviewed (3) Diabetes mellitus type 2 in obese Code(s): E11.69 - Type 2 diabetes mellitus with other specified complication; E66.9 - Obesity, unspecified Status: Chronic Plan: Maintain glucose 140-180mg/dL while hospitalized. Use insulin if needed. (4) Hypertension Code(s): I10 - Essential (primary) hypertension Status: Chronic Plan: Monitor BP. Continue medications as ordered. (5) HCAP (healthcare-associated pneumonia) Code(s): J18.9 - Pneumonia, unspecified organism Status: Acute Plan: ID is following, managing antibiotics. Currently on Avycaz and Meropenem. s/p bronch with cultures reviewed. (6) Diastolic heart failure Code(s): I50.30 - Unspecified diastolic (congestive) heart failure Status: Acute Plan: Monitor fluid status. Continue diuresis. She had an echo previous admission, EF 50%. <Myrtle Levi - Last Filed: 04/10/18 11:31> - Assessment (1) Acute renal failure superimposed on stage 3 chronic kidney disease Code(s): N17.9 - Acute kidney failure, unspecified; N18.3 - Chronic kidney disease, stage 3 (moderate) Status: Acute (2) Acute respiratory failure with hypoxemia Code(s): J96.01 - Acute respiratory failure with hypoxia Status: Acute (3) Diabetes mellitus type 2 in obese Code(s): E11.69 - Type 2 diabetes mellitus with other specified complication; E66.9 - Obesity, unspecified Status: Chronic (4) Hypertension Code(s): I10 - Essential (primary) hypertension Status: Chronic (5) HCAP (healthcare-associated pneumonia) Code(s): J18.9 - Pneumonia, unspecified organism Status: Acute (6) Diastolic heart failure Code(s): I50.30 - Unspecified diastolic (congestive) heart failure Status: Acute - Attending Attestation patient was seen and examined. Agree with above assessment and plan. Prognosis is poor. BUN continues to increase. Consider stopping Solumedrol. May need dialysis. <Alverto Fraser - Last Filed: 04/10/18 14:39>
[2018-04-10] MEDS: Sod Chloride 0.9% Inj 1,000 ML OTHER SCH (12:05)
--- NOTE | 2018-04-10 19:45 | P.PNID ---
Subjective Remarks: remains on vent, on PEEP of 15 and FiO2 90% afebrile WBC down to 10 K small amount of blood tinged less secrtions Isolate stil S to avicaz afebrile WBC 14 K Antibiotics: vabomere colistine nebs Allergies/Adverse Reactions: Allergies ibuprofen Allergy (Severe, Verified 03/18/18 17:58) MESSES WITH KIDNEYS Sulfa (Sulfonamide Antibiotics) Allergy (Severe, Verified 03/18/18 17:58) HIVES egg Allergy (Intermediate, Verified 03/18/18 17:58) Very Upset Stomach milk Allergy (Unknown, Verified 03/18/18 17:58) Heartburn Objective Vital Signs 04/09/18 19:56 04/09/18 19:58 04/09/18 20:00 Temperature Pulse Rate 67 69 64 Respiratory Rate 20 20 21 Blood Pressure 168/83 H Pulse Oximetry 91 L 94 L 04/09/18 22:00 04/10/18 00:00 04/10/18 00:15 Temperature Pulse Rate 63 66 Respiratory Rate 20 21 Blood Pressure 138/63 Pulse Oximetry 95 95 04/10/18 02:00 04/10/18 03:22 04/10/18 04:00 Temperature 97.5 F L Pulse Rate 60 84 Respiratory Rate 23 19 Blood Pressure 163/70 H Pulse Oximetry 87 L 84 L 04/10/18 06:00 04/10/18 08:00 04/10/18 08:01 Temperature 99.2 F Pulse Rate 77 87 87 Respiratory Rate 22 21 Blood Pressure 160/102 H Pulse Oximetry 89 L 89 L 04/10/18 08:30 04/10/18 09:00 04/10/18 09:01 Temperature Pulse Rate 85 78 77 Respiratory Rate 19 19 21 Blood Pressure 131/58 L Pulse Oximetry 92 L 94 L 94 L 04/10/18 09:30 04/10/18 10:00 04/10/18 10:30 Temperature Pulse Rate 80 71 67 Respiratory Rate 17 20 20 Blood Pressure 120/56 L Pulse Oximetry 91 L 96 94 L 04/10/18 11:00 04/10/18 11:30 04/10/18 12:00 Temperature 99 F Pulse Rate 73 69 66 Respiratory Rate 20 20 20 Blood Pressure 135/58 L Pulse Oximetry 90 L 94 L 93 L 04/10/18 12:01 04/10/18 12:28 04/10/18 12:30 Temperature Pulse Rate 66 66 Respiratory Rate 20 20 20 Blood Pressure 122/60 Pulse Oximetry 93 L 94 L 94 L 04/10/18 13:00 04/10/18 13:30 04/10/18 14:00 Temperature Pulse Rate 70 68 69 Respiratory Rate 19 20 20 Blood Pressure 123/56 L 123/59 L Pulse Oximetry 94 L 95 95 04/10/18 14:30 04/10/18 15:00 04/10/18 15:01 Temperature Pulse Rate 67 68 67 Respiratory Rate 20 20 20 Blood Pressure 124/58 L Pulse Oximetry 94 L 93 L 93 L 04/10/18 15:30 04/10/18 16:00 04/10/18 16:03 Temperature 98.6 F Pulse Rate 64 61 Respiratory Rate 20 20 20 Blood Pressure 118/59 L Pulse Oximetry 97 95 93 L 04/10/18 16:30 04/10/18 17:00 04/10/18 17:30 Temperature Pulse Rate 65 66 64 Respiratory Rate 21 21 20 Blood Pressure 123/59 L Pulse Oximetry 92 L 93 L 92 L 04/10/18 17:47 04/10/18 18:00 04/10/18 18:30 Temperature Pulse Rate 61 65 66 Respiratory Rate 20 21 Blood Pressure 123/89 Pulse Oximetry 91 L 94 L 04/10/18 19:00 04/10/18 19:01 Temperature Pulse Rate 69 66 Respiratory Rate 22 21 Blood Pressure 124/55 L Pulse Oximetry 92 L 90 L Intake & Output 04/10/18 04/10/18 04/11/18 06:59 18:59 06:59 Intake Total 1149 / 1149 1245 / 1245 Output Total 1700 / 1700 1550 / 1550 Balance -551 / -551 -305 / -305 Weight 131.5 kg Intake: IV 700 / 700 750 / 750 Versed Inj 50 mg In 50 ml @ 2 150 / 150 MG/HR 2 mls/hr IV.CONT TITRATE PRN Rx#:[id number] Vabomere Inj 2,000 MG In NS Inj 500 / 500 250 / 250 250 ML @ 83.333 mls/hr IV.SIG Q8H JACKI Rx#:[id number] fentaNYL 10 mcg/mL Premix Drip 250 / 250 2,500 mcg In 250 ml @ 50 MCG/HR 5 mls/hr IV.SIG TITRATE PRN Rx #:[id number] Flolan (30,000 ng/mL) Neb 37.5 200 / 200 100 / 100 ML In NS Inj 62.5 ML @ As Directed NEB Q8H [facility] Rx#: [id number] Tube Feeding 389 / 389 495 / 495 Water Bolus Amount 60 / 60 Output: Stool 100 / 100 Urine Amount (Catheter) 1600 / 1600 1550 / 1550 Indwelling Urethral Catheter 1600 / 1600 1550 / 1550 Other: Date of Last Bowel Movement 04/06/18 04/10/18 04/10/18 13:05 Sputum - Endotracheal Gram Stain - Pending 04/10/18 13:05 Sputum - Endotracheal Sputum Culture - Pending 04/04/18 15:44 Sputum - Endotracheal Gram Stain - Final 04/04/18 15:44 Sputum - Endotracheal Sputum Culture - Final Klebsiella pneumoniae ESBL pos Multidrug Resistant Lab - Hematology Results 04/09/18 04/10/18 05:01 04:20 WBC 12.2 H 14.4 H RBC 3.06 L 3.24 L Hgb 8.0 L 8.7 L Hct 24.4 L 26.1 L MCV 79.5 L 80.5 MCH 26.0 L 26.9 L MCHC 32.7 33.4 RDW 24.4 H 24.6 H Plt Count 173 169 MPV 9.8 10.2 Neut % (Auto) 83.8 H 83.8 H Lymph % (Auto) 5.4 L 6.2 L [place] % (Auto) 10.5 H 9.7 H Eos % (Auto) 0.1 0.1 Baso % (Auto) 0.2 0.2 Neut # (Auto) 10.2 H 12.1 H Lymph # (Auto) 0.7 L 0.9 L [place] # (Auto) 1.3 H 1.4 H Eos # (Auto) 0.0 0.0 Baso # (Auto) 0.0 0.0 WBC Differential . . Differential Comment Auto diff final Auto diff final Lab - Chemistry Results 04/08/18 04/08/18 04/09/18 20:20 23:28 04:20 Sodium Potassium Chloride Carbon Dioxide Anion Gap BUN Creatinine Estimated GFR POC Glucose 266 H 209 H 154 H Random Glucose Calcium Total Bilirubin AST ALT Alkaline Phosphatase Total Protein Albumin 04/09/18 04/09/18 04/09/18 05:01 08:42 16:26 Sodium 138 Potassium 3.5 Chloride 95 L Carbon Dioxide 30.1 Anion Gap 13 BUN 128 H Creatinine 1.80 H Estimated GFR 35 L POC Glucose 135 H 224 H Random Glucose 145 H Calcium 9.7 Total Bilirubin 0.6 AST 31 ALT 60 H Alkaline Phosphatase 85 Total Protein 6.4 Albumin 2.7 L 04/09/18 04/09/18 04/10/18 20:27 23:57 04:08 Sodium Potassium Chloride Carbon Dioxide Anion Gap BUN Creatinine Estimated GFR POC Glucose 244 H 228 H 201 H Random Glucose Calcium Total Bilirubin AST ALT Alkaline Phosphatase Total Protein Albumin 04/10/18 04/10/18 04/10/18 04:20 07:58 11:56 Sodium 138 Potassium 3.7 Chloride 96 L Carbon Dioxide 31.1 Anion Gap 11 BUN 141 H Creatinine 1.89 H Estimated GFR 34 L POC Glucose 208 H 211 H Random Glucose 201 H Calcium 9.7 Total Bilirubin 0.6 AST 34 ALT 57 H Alkaline Phosphatase 93 Total Protein 6.8 Albumin 2.8 L 04/10/18 17:04 Sodium Potassium Chloride Carbon Dioxide Anion Gap BUN Creatinine Estimated GFR POC Glucose 303 H Random Glucose Calcium Total Bilirubin AST ALT Alkaline Phosphatase Total Protein Albumin Imaging: ITS Impressions Head CT 03/18/18 18:46 CONCLUSION: 1. Solitary 3 mm hyperdensity in the central [place] of uncertain significance. Differential considerations include a punctate calcification and acute hemorrhage. 2. No acute findings in the supratentorial brain. Head MRI 03/19/18 00:00 CONCLUSION: 1. No evidence of brainstem hemorrhage. 2. Small foci of encephalomalacia in the left occipital lobe and right cerebellum 3. No evidence of acute infarct, hemorrhage, mass or edema. 4. No evidence of enhancing intra-axial or extra-axial lesions. Venous Doppler Study 03/19/18 00:00 CONCLUSION: The study is negative for bilateral lower extremity deep venous thrombosis. Foot X-Ray 03/22/18 00:00 CONCLUSION: No acute bony destructive change. Previous amputations as above. Fairly marked soft tissue swelling of the forefoot. Abdomen X-Ray 03/26/18 00:00 CONCLUSION: Abdomen/Pelvis CT 03/28/18 00:00 CONCLUSION: 1. Minimal increase in the trace bilateral pleural effusions with compressive atelectasis in both bases. 2. Gallstones in a benign-appearing gallbladder 3. I don't see evidence for colitis. 4. I don't see inflammatory changes in the abdomen. Chest CT 03/28/18 00:00 CONCLUSION: 1. Biventricular cardiomegaly with coarse interstitial changes in both lungs. A component of this could be failure 2. Trace bilateral pleural effusions larger on the right.. These have decreased slightly in the interval. Foot MRI 03/28/18 00:00 CONCLUSION: 1. Difficult exam to interpret because of extensive soft tissue swelling. No obvious osteomyelitis. 2. Nuclear medicine tagged white cell study may help. Chest X-Ray 04/10/18 03:56 CONCLUSION: Stable chest x-ray with bilateral lower lung zone airspace consolidation. Physical Exam: no acute distress, morbidly obese Head: Present: normocephalic, atraumatic, prominent facial swelling Eye: Present: improved periorbital swelling no scleral icterus ENT: Present: mucous membranes moist, oropharynx clear NECK: trachea midline LUNGs: patient mechanically ventilated, clear Cardiovascular : RRR, S1, S2 no murmurs, rubs , gallops Abdominal : soft, less distended no reaction to palpation, no audible bowel sounds no palpable organomegaly liquid stool in rectal collection system : hernandez in place with clear light yellow urine hernandez in place with small amount of clear yellow urine Extremities: edema improved, less prominent 1-2 prominent tree bark meeks Skin : intact, dry, no rash well perfused Neurological : sedated Psychiatric : unable to assess LINE: R IJ removed Assessment and Plan - Plan sp cardiac arrest Anaerobic sepsis; veillonella ? source : GI vs osteo CT and MRI diid not reveal source of her anaerobic sepsis Xrays negative, CT/MR not feasible 2/2 clincial cond'n Acute VDRF, increasing vent requirement s - difficulty weaning PNA, ESBL/ ? KPC Kleb R to zerbaxa, S acvycaz and vabomere worsening CXR worsening oxygenation growing MDRO Kleb again YOU - stable she is doing worse Persistent leukocytosis - much worse Anemia, new. No clincially apparent bleed - - change to avycaz from vabomere - adjsut dose per renal fnx - fu repeat sputum clx S to additional abx - monitor WBC - will need coloscopy after she revoeres (hem + stool and anaerobic sepsis) jeanne RN d/ w family memebers @ b/s
[2018-04-11] MEDS: Insulin NovoLIN Regular Correctional Sugar Inj SQ SCH ×7 (00:01→23:44)
[2018-04-11] MEDS: Oral Hygiene Kit OROPHARYNG SCH ×4 (00:02→16:43)
[2018-04-11] MEDS: Hypromellose 0.3% Opth Gel 10 GM Bottle EACH EYE SCH ×3 (04:40→18:25)
[2018-04-11] MEDS: QUEtiapine 25 MG Tablet PO SCH ×3 (05:42→21:00)
[2018-04-11] MEDS: Ceftazidime/Avibactam Inj 1.25 GM in Sodium Chlor 0.9% Inj 50 ML IV.SIG SCH ×3 (05:42→21:00)
[2018-04-11 06:38] LABS: ABG Base Excess 7.5 mmol/L (-2-2); ABG PCO2 47 mmHg (38-42); ABG PO2 57 mmHG (61-120)
[2018-04-11 06:49] LABS: Baso % (Auto) 0.3 % (0.0-2.0); Eos # (Auto) 0.1 th/mm3 (0.0-0.4); Eos % (Auto) 0.4 % (0.0-4.0); Hematocrit 25.2 % (35.0-46.0); Hemoglobin 8.4 gm/dL (11.6-15.3); Lymph # (Auto) 0.9 th/mm3 (1.0-4.8); Lymph % (Auto) 6.8 % (9.0-44.0); Mean Corpuscular HGB Conc 33.2 % (32.0-36.0); Mean Corpuscular Hemoglobin 26.7 pg (27.0-34.0); Mean Corpuscular Volume 80.4 fL (80.0-100.0); Mono # (Auto) 1.3 th/mm3 (0.0-0.9); Mono % (Auto) 9.3 % (0.0-8.0); Neut # (Auto) 11.4 th/mm3 (1.8-7.7); Neut % (Auto) 83.2 % (16.0-70.0); Platelet Count 164 th/mm3 (150-450); Red Blood Count 3.13 mil/mm3 (4.00-5.30); White Blood Count 13.7 th/mm3 (4.0-11.0)
--- NOTE | 2018-04-11 06:56 | XR ---
EXAM DATE: 04/11/2018 6:53 AM EDT AGE/SEX: 52 years / Female INDICATIONS: Shortness of breath, possible pulmonary disease. CLINICAL DATA: This is the patient's subsequent encounter. Patient reports that signs and symptoms h ave been present for 1 month and indicates a pain score of Nonresponsive. MEDICAL/SURGICAL HISTORY: Non-responsive. Non-responsive. COMPARISON: [facility] – [place], [place], CHEST 1V SINGLE AP, 04/10/2018. . FINDINGS: Portable AP view of the chest demonstrates a normal-sized cardiac silhouette. Endotracheal tube and n asogastric tube remain present. EKG lines overlie the patient. There is diffuse bilateral airspace co nsolidation, more severe in the lower lung zones bilaterally. The appearance is stable. No pneumothor ax is identified. CONCLUSION: Stable chest x-ray with diffuse bilateral airspace consolidation that is more severe in the lower oriana g zones. Electronically signed by: Isaak Day MD 04/11/2018 6:55 AM EDT
[2018-04-11 07:07] LABS: Alanine Aminotransferase 52 U/L (10-53); Albumin 2.8 g/dL (3.4-5.0); Anion Gap 11 meq/L (5-15); Aspartate Aminotransferase 32 U/L (15-37); Calcium 9.8 mg/dL (8.5-10.1); Carbon Dioxide 32.7 meq/L (21.0-32.0); Chloride 95 meq/L (98-107); Glucose,Random 162 mg/dL (74-106); Potassium 3.5 meq/L (3.5-5.1); Sodium 139 meq/L (136-145)
[2018-04-11 07:08] LABS: Blood Urea Nitrogen 146 mg/dL (7-18)
[2018-04-11 07:09] LABS: Alkaline Phosphatase 93 U/L (45-117); Total Protein 7.1 g/dL (6.4-8.2)
--- NOTE | 2018-04-11 07:27 | P.PNCC ---
Subjective Subjective Remarks/Hospital Course: 52-year-old female with past medical history of diabetes mellitus, hypertension, hyperlipidemia, atrial fibrillation on chronic anticoagulation with warfarin, chronic diastolic heart failure, asthma, WISAM, peripheral vascular disease, super morbid obesity. She has been at [facility] since 03/02/18. Abeba JACOBO was called due to respiratory distress. When they arrived as she was found to be in respiratory distress with sats in the 70s. She was communicating with them and reportedly said "leave me alone". She then had PEA arrest. She received CPR reportedly 10-15 minutes and received 2 doses of epinephrine. LMA was placed by EVAC. LMA was removed and she was intubated by Dr. Daly after receiving etomidate 20 mg IV and succinylcholine. She has demonstrated purposeful movements post intubation, and is now on a propofol drip. She was [place] [facility] [place] due to hypoglycemia, fall after isolated episode of diarrhea, hypoxia requiring HFNC. She has chronic interstitial changes on CXR. Reviewed records from [facility] which indicate she completed a 7 day course of Levaquin and has been on a prednisone taper. Current CXR shows bibasilar opacities. WBC is 16 ( previously 7.9). She has acute hypercapneic and hypoxemic respiratory failure. 03/19: Afebrile. Remains on 100% FiO2 PEEP of 12. Central has been placed for access due to multiple drips. Plan MRI brain today if respiratory status improves. Does not tolerate lying flat. Likely will need epoprostenol and rotaprone 03/20: Started on epoprostenol and currently on a rotor from bed. Currently on cisatracurium drip at 1 mcg/kg/min. Diuresing well. 03/21: Weaning down epoprostenol. Remains on cisatracurium drip at 6 mcg/kg/ min. Diuresis 6 L. Saturation was improved FiO2 down to 45%. 03/22: Hypothermic overnight. Currently euthermic. Excellent response to bumetanide drip. FiO2 down to 40%. PEEP down to 8. Possible discontinue paralytic agent today. 03/23: Resting comfortable in bed in no acute distress. Afebrile. Desaturated so placed back on rotor prone bed. Creatinine slowly increasing. 03/24: Afebrile. Worsening chest x-ray it appears to be volume overloaded again. +10 L past 24 hours. Will restart on bumetanide drip. Plan for bronchoscopy today. Switch to ceftazidime/avibactam secondary to ESBL positive Klebsiella pneumonia 03/25: FiO2 to 55%. Tolerating demanding drip with -2 L past 24 hours. Bronchoscopy results pending. Positive BM. Restarting tube feeding today 03/26: Cr continues to rise, although clinically continues to appear severely volume overloaded. fio2 70%. supine all night. off nimbex. off flolan. ID managing ESBL/MDRO/KPC Klebsiella and anaerobic bacteremia. 03/27: off rotaprone bed. multiple desat episodes overnight. on 100% fio2 and PEEP 10 this AM. good diuresis with net -2L/24h. bumex drip continues. awakens and follows commands. 03/28: not diuresing as well as yesterday. wbc uptrending. 2 more episodes of bradycardia, not associated with hypoxia. however, fio2 remains severely elevated. I increased her peep to 14. still arouses and moves all extremities. high concern for ongoing infectious etiology, but with high o2 requirements and intermittent bradycardia requiring atropine, at present too unstable for repeat imaging. 03/29: ct C/A/P without overt infectious source. does demonstrate radiographic evidence of biventricular dysfunction. bedside echo today demonstrates the same , and dilated IVC without respiratory variation. off vasopressors. required atropine for a HR of 15 once overnight. still very hypoxic: changed to APRV 5:1 , 28/0, 4/0.8. SUBJECTIVE 03/30: remains on APRV with hypoxia. multiple episodes of bradycardia and a 18 second pause yesterday. trialed on dobutamine but with multiple dysrhythmias. now on low-dose dopamine to mitigate bradycardia. adequate diuresis overnight. cxr improving slightly. still remains volume overloaded, and YOU persists. 03/31: mild improvements in fio2. remains on APRV. no more bradycardia today. still on dopamine to prevent pauses/bradycardia. YOU persists, but stable. unable to diurese yesterday and now net +2L despite fluid overload. must increase forced diuresis to improve hypoxemia. 04/01: Remains sedated, orally intubated on mechanical ventilation. Being diuresed. Started on Reglan in view of high gastric residuals and decreasing fentanyl as tolerated. 04/02: Remains sedated, orally intubated on APRV mode mechanical ventilation. 04/03: Remains sedated, orally intubated on mechanical ventilation. Awaiting family meeting with palliative care to decide goals of therapy. Being diuresed. 04/04: Remains sedated, orally intubated on mechanical ventilation. Switch to PRVC mode overnight. On 50% FiO2, PEEP +8. Family deciding regarding goals of therapy. 04/05: Remains sedated, orally intubated on mechanical ventilation. PEEP increased to +10 overnight due to hypoxia. 04/06: Remains sedated, orally intubated on mechanical ventilation. Worsening oxygenation since yesterday. Chest x-ray showed fluid overload. Resume Bumex twice daily yesterday in addition to Zaroxolyn PO. 04/07: Remains sedated, orally intubated on mechanical ventilation. Diuresed. Renal function remains a concern. Started on colistin nebs per ID due to very resistant organisms in sputum. Eventually needs tracheostomy and PEG tube placement. 04/08 Patient remains sedated with Versed and Fentanyl infusion. On Cardene drip.Had T:99.7 last night. Remains on high PEEP and FIO2( PEEP:15, FIO2: 65%) 04/09 Patient is intubated with Versed and Fentanyl drips. Tmax 100.3. Now on PRVC with PEEP:12 and FIO2 100% 04/10 Patient is sedated with Fentanyl and Versed drips. Flolan started yesterday. On PRVC with PEEP: 15 and FIO2 100%. Afebrile. 04/11 Patient was hypoxic overnight with [id number]'s given Rocuronium 100mg IV for desaturation and vent synchrony remains on high PEEP15 with 100%FIO2. Sedated with Versed and Fentanyl drips. CXR this morning shows diffuse b/l infiltrates severe in lower lung zones. Objective Vital Signs / I&O: Vital Signs 04/10/18 08:00 04/10/18 08:01 04/10/18 08:30 Temperature 99.2 F Pulse Rate 87 87 85 Respiratory Rate 22 21 19 Blood Pressure 160/102 H Pulse Oximetry 89 L 89 L 92 L 04/10/18 09:00 04/10/18 09:01 04/10/18 09:30 Temperature Pulse Rate 78 77 80 Respiratory Rate 19 21 17 Blood Pressure 131/58 L Pulse Oximetry 94 L 94 L 91 L 04/10/18 10:00 04/10/18 10:30 04/10/18 11:00 Temperature Pulse Rate 71 67 73 Respiratory Rate 20 20 20 Blood Pressure 120/56 L 135/58 L Pulse Oximetry 96 94 L 90 L 04/10/18 11:30 04/10/18 12:00 04/10/18 12:01 Temperature 99 F Pulse Rate 69 66 66 Respiratory Rate 20 20 20 Blood Pressure 122/60 Pulse Oximetry 94 L 93 L 93 L 04/10/18 12:28 04/10/18 12:30 04/10/18 13:00 Temperature Pulse Rate 66 70 Respiratory Rate 20 20 19 Blood Pressure 123/56 L Pulse Oximetry 94 L 94 L 94 L 04/10/18 13:30 04/10/18 14:00 04/10/18 14:30 Temperature Pulse Rate 68 69 67 Respiratory Rate 20 20 20 Blood Pressure 123/59 L Pulse Oximetry 95 95 94 L 04/10/18 15:00 04/10/18 15:01 04/10/18 15:30 Temperature Pulse Rate 68 67 64 Respiratory Rate 20 20 20 Blood Pressure 124/58 L Pulse Oximetry 93 L 93 L 97 04/10/18 16:00 04/10/18 16:03 04/10/18 16:30 Temperature 98.6 F Pulse Rate 61 65 Respiratory Rate 20 20 21 Blood Pressure 118/59 L Pulse Oximetry 95 93 L 92 L 04/10/18 17:00 04/10/18 17:30 04/10/18 17:47 Temperature Pulse Rate 66 64 61 Respiratory Rate 21 20 Blood Pressure 123/59 L Pulse Oximetry 93 L 92 L 04/10/18 18:00 04/10/18 18:30 04/10/18 19:00 Temperature Pulse Rate 65 66 69 Respiratory Rate 20 21 22 Blood Pressure 123/89 Pulse Oximetry 91 L 94 L 92 L 04/10/18 19:01 04/10/18 19:30 04/10/18 20:00 Temperature Pulse Rate 66 66 75 Respiratory Rate 21 19 24 Blood Pressure 124/55 L Pulse Oximetry 90 L 92 L 92 L 04/10/18 20:01 04/10/18 20:24 04/10/18 20:30 Temperature 99.8 F H Pulse Rate 76 71 Respiratory Rate 24 23 20 Blood Pressure 161/79 H Pulse Oximetry 91 L 93 L 96 04/10/18 21:00 04/10/18 21:01 04/10/18 21:30 Temperature Pulse Rate 64 64 68 Respiratory Rate 21 20 39 H Blood Pressure 128/58 L Pulse Oximetry 96 96 94 L 04/10/18 22:00 04/10/18 22:01 04/10/18 22:30 Temperature Pulse Rate 69 69 67 Respiratory Rate 22 22 22 Blood Pressure 133/62 Pulse Oximetry 94 L 94 L 95 04/10/18 23:00 04/10/18 23:30 04/11/18 00:00 Temperature Pulse Rate 68 69 66 Respiratory Rate 21 22 23 Blood Pressure 135/61 Pulse Oximetry 95 95 97 04/11/18 00:01 04/11/18 00:30 04/11/18 00:32 Temperature 98.9 F Pulse Rate 66 66 Respiratory Rate 22 24 21 Blood Pressure 130/60 Pulse Oximetry 97 98 98 04/11/18 01:00 04/11/18 01:01 04/11/18 01:30 Temperature Pulse Rate 62 62 67 Respiratory Rate 21 21 20 Blood Pressure 122/58 L Pulse Oximetry 96 96 94 L 04/11/18 02:00 04/11/18 02:30 04/11/18 03:00 Temperature Pulse Rate 70 69 68 Respiratory Rate 20 23 20 Blood Pressure 139/63 Pulse Oximetry 93 L 96 93 L 04/11/18 03:01 04/11/18 03:30 04/11/18 03:57 Temperature Pulse Rate 68 69 Respiratory Rate 23 19 24 Blood Pressure 124/61 Pulse Oximetry 93 L 95 92 L 04/11/18 04:00 04/11/18 04:30 04/11/18 05:00 Temperature 98.9 F Pulse Rate 91 H 91 H 92 H Respiratory Rate 28 H 30 H 30 H Blood Pressure 120/97 H Pulse Oximetry 89 L 85 L 80 L 04/11/18 05:01 04/11/18 06:00 Temperature Pulse Rate 91 H 91 H Respiratory Rate 28 H Blood Pressure 140/66 Pulse Oximetry 80 L Intake & Output 04/10/18 04/11/18 04/11/18 18:59 06:59 18:59 Intake Total 1245 / 1245 761 / 761 Output Total 1550 / 1550 1600 / 1600 Balance -305 / -305 -839 / -839 Weight 132 kg Intake: IV 750 / 750 150 / 150 Versed Inj 50 mg In 50 ml @ 2 150 / 150 MG/HR 2 mls/hr IV.CONT TITRATE PRN Rx#:[id number] Avycaz Inj 1.25 GM In NS Inj 50 50 / 50 ML @ 25 mls/hr IV.SIG Q8H JACKI Rx#:[id number] Vabomere Inj 2,000 MG In NS Inj 250 / 250 250 ML @ 83.333 mls/hr IV.SIG Q8H JACKI Rx#:[id number] fentaNYL 10 mcg/mL Premix Drip 250 / 250 2,500 mcg In 250 ml @ 50 MCG/HR 5 mls/hr IV.SIG TITRATE PRN Rx #:[id number] Flolan (30,000 ng/mL) Neb 37.5 100 / 100 100 / 100 ML In NS Inj 62.5 ML @ As Directed NEB Q8H JACKI Rx#: [id number] Tube Feeding 495 / 495 491 / 491 Tube Irrigant 120 / 120 Output: Stool 0 / 0 Urine Amount (Catheter) 1550 / 1550 1600 / 1600 Indwelling Urethral Catheter 1550 / 1550 1600 / 1600 Other: Date of Last Bowel Movement 04/10/18 04/10/18 # Bowel Movements 0 Result Diagrams: 04/11/18 04:16 04/11/18 04:16 Other Results: Laboratory Results - last 12 hr 04/10/18 04/10/18 04/11/18 19:54 23:31 03:46 WBC RBC Hgb Hct MCV MCH MCHC RDW Plt Count MPV Neut % (Auto) Lymph % (Auto) [place] % (Auto) Eos % (Auto) Baso % (Auto) Neut # (Auto) Lymph # (Auto) [place] # (Auto) Eos # (Auto) Baso # (Auto) WBC Differential Differential Comment Puncture Site Patient Temperature O2 Saturation ABG pH ABG pCO2 ABG pO2 ABG HCO3 ABG O2 Content ABG Base Excess ABG Methemoglobin Trevor Test Hemoglobin Carboxyhemoglobin O2 Delivery Device Vent Setting Inspired O2 Critical Value Sodium Potassium Chloride Carbon Dioxide Anion Gap BUN Creatinine POC Glucose 312 H 245 H 193 H Random Glucose Calcium Total Bilirubin AST ALT Alkaline Phosphatase Total Protein Albumin 04/11/18 04/11/18 04/11/18 04:16 04:16 06:23 WBC 13.7 H RBC 3.13 L Hgb 8.4 L Hct 25.2 L MCV 80.4 MCH 26.7 L MCHC 33.2 RDW 24.0 H Plt Count 164 MPV 11.0 Neut % (Auto) 83.2 H Lymph % (Auto) 6.8 L [place] % (Auto) 9.3 H Eos % (Auto) 0.4 Baso % (Auto) 0.3 Neut # (Auto) 11.4 H Lymph # (Auto) 0.9 L [place] # (Auto) 1.3 H Eos # (Auto) 0.1 Baso # (Auto) 0.0 WBC Differential . Differential Comment Auto diff final Puncture Site Right radial Patient Temperature 98.6 O2 Saturation 87 L* ABG pH 7.45 H ABG pCO2 47 H ABG pO2 57 L* ABG HCO3 32 H ABG O2 Content 10.2 L ABG Base Excess 7.5 H ABG Methemoglobin 1.4 Trevor Test Present Hemoglobin 8.3 L Carboxyhemoglobin 1.9 O2 Delivery Device Ventilator Vent Setting Prvc/ ac Inspired O2 100 Critical Value Yes Sodium 139 Potassium 3.5 Chloride 95 L Carbon Dioxide 32.7 H Anion Gap 11 BUN 146 H Creatinine 1.83 H POC Glucose Random Glucose 162 H Calcium 9.8 Total Bilirubin 0.6 AST 32 ALT 52 Alkaline Phosphatase 93 Total Protein 7.1 Albumin 2.8 L Imaging: Head CT 03/18/18 18:46 CONCLUSION: 1. Solitary 3 mm hyperdensity in the central [place] of uncertain significance. Differential considerations include a punctate calcification and acute hemorrhage. 2. No acute findings in the supratentorial brain. Head MRI 03/19/18 00:00 CONCLUSION: 1. No evidence of brainstem hemorrhage. 2. Small foci of encephalomalacia in the left occipital lobe and right cerebellum 3. No evidence of acute infarct, hemorrhage, mass or edema. 4. No evidence of enhancing intra-axial or extra-axial lesions. Venous Doppler Study 03/19/18 00:00 CONCLUSION: The study is negative for bilateral lower extremity deep venous thrombosis. Foot X-Ray 03/22/18 00:00 CONCLUSION: No acute bony destructive change. Previous amputations as above. Fairly marked soft tissue swelling of the forefoot. Abdomen X-Ray 03/26/18 00:00 CONCLUSION: Abdomen/Pelvis CT 03/28/18 00:00 CONCLUSION: 1. Minimal increase in the trace bilateral pleural effusions with compressive atelectasis in both bases. 2. Gallstones in a benign-appearing gallbladder 3. I don't see evidence for colitis. 4. I don't see inflammatory changes in the abdomen. Chest CT 03/28/18 00:00 CONCLUSION: 1. Biventricular cardiomegaly with coarse interstitial changes in both lungs. A component of this could be failure 2. Trace bilateral pleural effusions larger on the right.. These have decreased slightly in the interval. Foot MRI 03/28/18 00:00 CONCLUSION: 1. Difficult exam to interpret because of extensive soft tissue swelling. No obvious osteomyelitis. 2. Nuclear medicine tagged white cell study may help. Chest X-Ray 04/11/18 05:17 CONCLUSION: Stable chest x-ray with diffuse bilateral airspace consolidation that is more severe in the lower lung zones. Objective Remarks: GENERAL: SKIN: Warm and dry. HEAD: Normocephalic. EYES: No scleral icterus. No injection or drainage. NECK: Supple, trachea midline. No JVD or lymphadenopathy. CARDIOVASCULAR: Regular rate and rhythm without murmurs, gallops, or rubs. RESPIRATORY: Breath sounds equal bilaterally. No accessory muscle use. GASTROINTESTINAL: Abdomen soft, non-tender, nondistended. MUSCULOSKELETAL: No cyanosis, or edema. Neuro: sedated and intubated. Assessment and Plan - Assessment and Plan Plan: Assessment: 52yF with severe ARDS and organ failure secondary to MDRO/ESBL/KPC Klebsiella and Veillonella bacteremia. remains very critically ill. does still appear to be volume overloaded combined with significant myocardial dysfunction. continue dopamine to prevent bradycardia. continue APRV mode of ventilation. continue forced diuresis. Family concerned about goals of care and if this level of care was consistent with patient's wishes. I think it is hernandez to get palliative care involved. however, it does appear that given her young age, we could successfully rehabilitate her to a functional status at least consistent with her prior functional status at her SNF, and possibly improved depending on her clinical course. Of course this would take months of rehabilitation, and will likely include trach/peg due to her severe ARDS and hypoxia. I would support aggressive measures at this point, unless it becomes clear that the patient has a strong opinion against such measures. Remains critically ill today with multiple ongoing life-threatening organ dysfunction. NEURO/PSYCH: Acute encephalopathy - secondary to hypercapnia, improving. Abnormal brain CT with 3 mm hyperdensity in central [place] Major depressive disorder NOS Chronic opioid use Encephalomalacia right cerebellum/left occipital lobe scheduled oxycodone 20mg po q4h Seroquel 50mg po q8h for delirium. versed and fentanyl for goal RASS -2. Monitor neuro status. Daily sedation vacation when clinically appropriate.. Followup CT brain - . Solitary 3 mm hyperdensity in the central [place] of uncertain significance. Differential considerations include a punctate calcification and acute hemorrhage RESP: Acute hypercapnic and hypoxemic respiratory failure Severe ARDS Acute asthma exacerbation Healthcare associated pneumonia WISAM/OHS Prior tobacco abuse Bilateral pleural effusions right 2.2 cm. Left 1.3 cm LMA was placed in the field by EVAC. Intubated in ED 03/18 Continue with vent support keep sats >92% On albuterol/ipratropium aerosols every 4 hours with albuterol aerosols every 2 hours as needed for dyspnea Weaned off epoprostenol 03/23. Flolan resumed 04/09 On PRVC RR 20, TV 550, IT:1.10, PEEP:15, FIO2: 100% On Solumederol 40mg IV daily, Given Rocuronium 100mg x1 overnight for vent synchrony and refractory hypoxemia CXR today b/l lower lung zone airspace consolidation. CV: Hypertension Hyperlipidemia Chronic diastolic heart failure Paroxysmal atrial fibrillation on chronic anti-coagulation with warfarin Peripheral vascular disease/peripheral arterial disease Elevated troponin intermittent bradycardia Cor pulmonale biventricular dysfunction Monitor HR and BP keep MAP>65mmHg 2D echo 02/24/18ejection fraction 50%. Wall thickness upper limits of normal. Trace MR. Lactic acid cleared Continue atorvastatin 40 mg daily Doppler bilateral upper and lower extremities revealed no acute thrombus amlodipine 10mg po daily hydralazine 100mg po q8h, Clonidine patch Coreg 3.125 mg BID, GI: History of GERD Chronic pancreatitis insufficiency Hypoalbuminemia vital high-protein goal 45 cc an hour per GIs recommendation Famotidine for GI prophylaxis Docusate sodium/senna 1 tablet twice daily for bowel regimen Creon home medication 3 times daily FEN/RENAL: Acute kidney injury superimposed on CKD Chronic kidney disease stage III Acute severe intravascular volume overload with pulmonary edema [place] catheter was placed in the emergency department. Monitor renal function, I/O's, avoid nephrotoxins Cr: 1.83 today on Bumex 2mg TID, Zaroxolyn 5mg Q12 Renal is following- Dr. Fraser ID: Acute healthcare associated pneumonia -ESBL positive Klebsiella pneumonia Veillonella species bacteremia Metronidazole 500 every 6 hours, Avycaz, colistin nebs , Merrem per ID. Monitor for signs of infections ( Fever, WBC) Blood cultures 2 03/18 Veillonella spp. Repeat 03/20 no growth to date Sputum, ESBL positive Klebsiella pneumonia 04/04 Pneumococcal urinary antigens, influenza a and B and chlamydia and mycoplasma all pending/negative Antibiotics per ID. HEME: Leukocytosis Chronic anemia/normocytic Chronic anti-coagulation with warfarin 4 mg daily. INR target is 2-3. Monitor CBC daily. Follow trends. No indication for transfusion of blood products at this time. ENDO: Diabetes mellitus History of gout SSI q4h high scale Levemir 5 units SQ BID Holding glipizide 10 mg twice daily and insulin glargine/home medication Holding allopurinol 300 mg daily/home medication MSK: Elevated BMI Osteoporosis/osteoarthritis PT evaluate and treat PROPH: SCDs for DVT prophylaxis. Heparin SQ ACCESS: Peripheral IV's Doppler US B/l Upper and lower EXT negative for DVT on 03/19 Palliative care is following Per Dr. Major : Discussed at length with patient's brother at bedside previously. Explained to him the need for tracheostomy however patient needs to be weaned down further on mechanical ventilation prior to procedure. He tells me that patient would not want tracheostomy and halfway placement based on his previous discussions with her. He tells me that she was not doing well for the last 6 months prior to her current hospitalization. Discussed with patient's son on 04/06 regarding need for tracheostomy PEG tube placement and possible halfway placement. Also discussed the fact that patient has previously expressed to her brother that she would not want these procedures done. He tells me that he would be the final decision-maker and wishes to talk to his family before making any decisions and was reluctant to talk further with me. Prognosis guared patient is critically ill with severe ARDS, refractory hypoxemia/ resp failure and multiorgan injury. Critical care time 30 minutes, exclusive of separately billed procedures.
[2018-04-11] MEDS: Midazolam 50 MG/50 ML Inj 50 MG/50 ML BAG IV.CONT PRN (08:20)
[2018-04-11] MEDS: MethylPREDNISolone Sod Succinate Inj 40 MG/ML Vial IV.PUSH SCH (08:42)
[2018-04-11] MEDS: Heparin - SQ 10,000 UNITS/ML Vial SQ SCH ×2 (08:43→20:34)
[2018-04-11] MEDS: Senna/Docusate Sodium 8.6/50 MG Tablet PO SCH ×2 (08:43→20:34)
[2018-04-11] MEDS: Famotidine 20 MG Tablet PO SCH ×2 (08:43→20:57)
[2018-04-11] MEDS: Lipase/Protease/Amylase 24/76/120 DR Capsule PO SCH ×3 (08:43→18:24)
[2018-04-11] MEDS: Insulin Detemir Inj 1,000 UNIT/10 ML Vial SQ SCH ×2 (08:44→20:57)
[2018-04-11] MEDS: Chlorhexidine 0.12% Oral Kit 15 ML UDC OROPHARYNG SCH ×2 (08:45→20:32)
[2018-04-11] MEDS: fentaNYL 10 mcg/mL Premix Drip 2,500 MCG/250 ML BAG IV.SIG PRN ×2 (09:10→20:37)
[2018-04-11] MEDS: EPOPROSTENOL NEB SCH (11:06)
[2018-04-11] MEDS: SODIUM CHLOR NEB SCH (11:06)
[2018-04-11] MEDS: amLODIPine 10 MG Tablet PO SCH (11:07)
[2018-04-11] MEDS: Sod Chloride 0.9% Inj 1,000 ML OTHER SCH (11:08)
--- NOTE | 2018-04-11 13:46 | P.PNNP ---
Subjective Interval history: Patient is on 100 % FiO2, however she is hypoxic. Very low oxygen saturation. Discussed with Dr. Mcmanus. Non oliguric, negative fluid balance, BUN is slightly higher today, Creatinine is about the same. Discussed with family at the bedside. Physical Exam Vital signs: Vital Signs 04/10/18 14:00 04/10/18 14:30 04/10/18 15:00 Temperature Pulse Rate 69 67 68 Respiratory Rate 20 20 20 Blood Pressure 123/59 L Pulse Oximetry 95 94 L 93 L 04/10/18 15:01 04/10/18 15:30 04/10/18 16:00 Temperature 98.6 F Pulse Rate 67 64 61 Respiratory Rate 20 20 20 Blood Pressure 124/58 L 118/59 L Pulse Oximetry 93 L 97 95 04/10/18 16:03 04/10/18 16:30 04/10/18 17:00 Temperature Pulse Rate 65 66 Respiratory Rate 20 21 21 Blood Pressure 123/59 L Pulse Oximetry 93 L 92 L 93 L 04/10/18 17:30 04/10/18 17:47 04/10/18 18:00 Temperature Pulse Rate 64 61 65 Respiratory Rate 20 20 Blood Pressure 123/89 Pulse Oximetry 92 L 91 L 04/10/18 18:30 04/10/18 19:00 04/10/18 19:01 Temperature Pulse Rate 66 69 66 Respiratory Rate 21 22 21 Blood Pressure 124/55 L Pulse Oximetry 94 L 92 L 90 L 04/10/18 19:30 04/10/18 20:00 04/10/18 20:01 Temperature 99.8 F H Pulse Rate 66 75 76 Respiratory Rate 19 24 24 Blood Pressure 161/79 H Pulse Oximetry 92 L 92 L 91 L 04/10/18 20:24 04/10/18 20:30 04/10/18 21:00 Temperature Pulse Rate 71 64 Respiratory Rate 23 20 21 Blood Pressure Pulse Oximetry 93 L 96 96 04/10/18 21:01 04/10/18 21:30 04/10/18 22:00 Temperature Pulse Rate 64 68 69 Respiratory Rate 20 39 H 22 Blood Pressure 128/58 L Pulse Oximetry 96 94 L 94 L 04/10/18 22:01 04/10/18 22:30 04/10/18 23:00 Temperature Pulse Rate 69 67 68 Respiratory Rate 22 22 21 Blood Pressure 133/62 135/61 Pulse Oximetry 94 L 95 95 04/10/18 23:30 04/11/18 00:00 04/11/18 00:01 Temperature 98.9 F Pulse Rate 69 66 66 Respiratory Rate 22 23 22 Blood Pressure 130/60 Pulse Oximetry 95 97 97 04/11/18 00:30 04/11/18 00:32 04/11/18 01:00 Temperature Pulse Rate 66 62 Respiratory Rate 24 21 21 Blood Pressure Pulse Oximetry 98 98 96 04/11/18 01:01 04/11/18 01:30 04/11/18 02:00 Temperature Pulse Rate 62 67 70 Respiratory Rate 21 20 20 Blood Pressure 122/58 L 139/63 Pulse Oximetry 96 94 L 93 L 04/11/18 02:30 04/11/18 03:00 04/11/18 03:01 Temperature Pulse Rate 69 68 68 Respiratory Rate 23 20 23 Blood Pressure 124/61 Pulse Oximetry 96 93 L 93 L 04/11/18 03:30 04/11/18 03:57 04/11/18 04:00 Temperature 98.9 F Pulse Rate 69 91 H Respiratory Rate 19 24 28 H Blood Pressure 120/97 H Pulse Oximetry 95 92 L 89 L 04/11/18 04:30 04/11/18 05:00 04/11/18 05:01 Temperature Pulse Rate 91 H 92 H 91 H Respiratory Rate 30 H 30 H 28 H Blood Pressure 140/66 Pulse Oximetry 85 L 80 L 80 L 04/11/18 06:00 04/11/18 07:00 04/11/18 07:01 Temperature Pulse Rate 91 H 89 89 Respiratory Rate 21 22 Blood Pressure 146/65 H Pulse Oximetry 81 L 80 L 04/11/18 07:30 04/11/18 07:50 04/11/18 08:00 Temperature 100.2 F H Pulse Rate 86 86 88 Respiratory Rate 24 22 23 Blood Pressure 146/65 H 163/70 H Pulse Oximetry 75 L 73 L 72 L 04/11/18 08:30 04/11/18 09:00 04/11/18 09:01 Temperature Pulse Rate 86 87 88 Respiratory Rate 25 H 24 26 H Blood Pressure 139/63 Pulse Oximetry 72 L 71 L 72 L 04/11/18 09:30 04/11/18 10:00 04/11/18 11:00 Temperature Pulse Rate 89 92 H 92 H Respiratory Rate 23 27 H Blood Pressure 142/63 H Pulse Oximetry 72 L 69 L 04/11/18 11:29 04/11/18 11:30 04/11/18 12:00 Temperature Pulse Rate 92 H 93 H 88 Respiratory Rate 22 20 Blood Pressure 132/60 Pulse Oximetry 73 L 80 L 04/11/18 12:30 04/11/18 13:00 04/11/18 13:03 Temperature Pulse Rate 85 84 Respiratory Rate 21 21 20 Blood Pressure 129/60 Pulse Oximetry 88 L 88 L 90 L Intake & Output 04/10/18 04/11/18 04/11/18 18:59 06:59 18:59 Intake Total 1245 / 1245 1011 / 1011 200 / 200 Output Total 1550 / 1550 1600 / 1600 Balance -305 / -305 -589 / -589 200 / 200 Weight 132 kg Intake: IV 750 / 750 400 / 400 200 / 200 Versed Inj 50 mg In 50 ml @ 2 150 / 150 50 / 50 MG/HR 2 mls/hr IV.CONT TITRATE PRN Rx#:[id number] Avycaz Inj 1.25 GM In NS Inj 50 50 / 50 50 / 50 ML @ 25 mls/hr IV.SIG Q8H [facility] Rx#:[id number] Vabomere Inj 2,000 MG In NS Inj 250 / 250 250 ML @ 83.333 mls/hr IV.SIG Q8H [facility] Rx#:[id number] fentaNYL 10 mcg/mL Premix Drip 250 / 250 250 / 250 2,500 mcg In 250 ml @ 50 MCG/HR 5 mls/hr IV.SIG TITRATE PRN Rx #:[id number] Flolan (30,000 ng/mL) Neb 37.5 100 / 100 100 / 100 100 / 100 ML In NS Inj 62.5 ML @ As Directed NEB Q8H [facility] Rx#: [id number] Tube Feeding 495 / 495 491 / 491 Tube Irrigant 120 / 120 Output: Stool 0 / 0 Urine Amount (Catheter) 1550 / 1550 1600 / 1600 Indwelling Urethral Catheter 1550 / 1550 1600 / 1600 Other: Date of Last Bowel Movement 04/10/18 04/10/18 04/10/18 # Bowel Movements 0 - Constitutional Comments: obese, fluid overload, on the vent, unresponsive. - Routine HEENT Exam Head: Present: normocephalic Comments: intubated. - Routine Neck Exam Present: supple - Routine Respiratory Exam Comments: vented breath sounds bilaterally. - Routine Cardiovascular Exam Present: RRR - Routine Abdominal Exam Present: soft - Routine Extremities Exam Present: edema - Urinary Catheter Management Indwelling Urethral Catheter Cath placed during this visit: yes Reason for continuing: Hourly intake/output Insertion date: 03/18/18 Insertion time: 21:00 Assessment and Plan - Assessment (1) Acute renal failure superimposed on stage 3 chronic kidney disease Code(s): N17.9 - Acute kidney failure, unspecified; N18.3 - Chronic kidney disease, stage 3 (moderate) Status: Acute Plan: Her baseline creatinine runs 1.6-2, GFR 44. YOU most likely due to cardiac arrest and decreased renal perfusion. Her creatinine is stable; she is non oliguric. High and disproportionately elevated BUN is getting worse. On Bumex TID 2 mg. Negative fluid balance has been achieved. Avoid nephrotoxic agents,dose appropriate to renal status. Prognosis is very poor. (2) Acute respiratory failure with hypoxemia Code(s): J96.01 - Acute respiratory failure with hypoxia Status: Acute Plan: ARDS. Not responding. Poor prognosis. Management per critical care service. (3) Diabetes mellitus type 2 in obese Code(s): E11.69 - Type 2 diabetes mellitus with other specified complication; E66.9 - Obesity, unspecified Status: Chronic Plan: Maintain glucose 140-180mg/dL while hospitalized. Use insulin if needed. (4) Hypertension Code(s): I10 - Essential (primary) hypertension Status: Chronic Plan: Monitor BP. Continue medications as ordered. (5) HCAP (healthcare-associated pneumonia) Code(s): J18.9 - Pneumonia, unspecified organism Status: Acute Plan: ID is following, managing antibiotics. Currently on Avycaz and Meropenem. s/p bronch with cultures reviewed. (6) Diastolic heart failure Code(s): I50.30 - Unspecified diastolic (congestive) heart failure Status: Acute Plan: Monitor fluid status. Continue diuresis. She had an echo previous admission, EF 50%.
--- NOTE | 2018-04-11 17:02 | P.PNID ---
Subjective Remarks: remains on vent, on PEEP of 15 and FiO2 100% sats in upper 80s- low 90s afebrile WBC down to 10 K small amount of blood tinged less secrtions Isolate stil S to avicaz afebrile Antibiotics: avicaz colistine nebs Allergies/Adverse Reactions: Allergies ibuprofen Allergy (Severe, Verified 03/18/18 17:58) MESSES WITH KIDNEYS Sulfa (Sulfonamide Antibiotics) Allergy (Severe, Verified 03/18/18 17:58) HIVES egg Allergy (Intermediate, Verified 03/18/18 17:58) Very Upset Stomach milk Allergy (Unknown, Verified 03/18/18 17:58) Heartburn Objective Vital Signs 04/10/18 17:00 04/10/18 17:30 04/10/18 17:47 Temperature Pulse Rate 66 64 61 Respiratory Rate 21 20 Blood Pressure 123/59 L Pulse Oximetry 93 L 92 L 04/10/18 18:00 04/10/18 18:30 04/10/18 19:00 Temperature Pulse Rate 65 66 69 Respiratory Rate 20 21 22 Blood Pressure 123/89 Pulse Oximetry 91 L 94 L 92 L 04/10/18 19:01 04/10/18 19:30 04/10/18 20:00 Temperature Pulse Rate 66 66 75 Respiratory Rate 21 19 24 Blood Pressure 124/55 L Pulse Oximetry 90 L 92 L 92 L 04/10/18 20:01 04/10/18 20:24 04/10/18 20:30 Temperature 99.8 F H Pulse Rate 76 71 Respiratory Rate 24 23 20 Blood Pressure 161/79 H Pulse Oximetry 91 L 93 L 96 04/10/18 21:00 04/10/18 21:01 04/10/18 21:30 Temperature Pulse Rate 64 64 68 Respiratory Rate 21 20 39 H Blood Pressure 128/58 L Pulse Oximetry 96 96 94 L 04/10/18 22:00 04/10/18 22:01 04/10/18 22:30 Temperature Pulse Rate 69 69 67 Respiratory Rate 22 22 22 Blood Pressure 133/62 Pulse Oximetry 94 L 94 L 95 04/10/18 23:00 04/10/18 23:30 04/11/18 00:00 Temperature Pulse Rate 68 69 66 Respiratory Rate 21 22 23 Blood Pressure 135/61 Pulse Oximetry 95 95 97 04/11/18 00:01 04/11/18 00:30 04/11/18 00:32 Temperature 98.9 F Pulse Rate 66 66 Respiratory Rate 22 24 21 Blood Pressure 130/60 Pulse Oximetry 97 98 98 04/11/18 01:00 04/11/18 01:01 04/11/18 01:30 Temperature Pulse Rate 62 62 67 Respiratory Rate 21 21 20 Blood Pressure 122/58 L Pulse Oximetry 96 96 94 L 04/11/18 02:00 04/11/18 02:30 04/11/18 03:00 Temperature Pulse Rate 70 69 68 Respiratory Rate 20 23 20 Blood Pressure 139/63 Pulse Oximetry 93 L 96 93 L 04/11/18 03:01 04/11/18 03:30 04/11/18 03:57 Temperature Pulse Rate 68 69 Respiratory Rate 23 19 24 Blood Pressure 124/61 Pulse Oximetry 93 L 95 92 L 04/11/18 04:00 04/11/18 04:30 04/11/18 05:00 Temperature 98.9 F Pulse Rate 91 H 91 H 92 H Respiratory Rate 28 H 30 H 30 H Blood Pressure 120/97 H Pulse Oximetry 89 L 85 L 80 L 04/11/18 05:01 04/11/18 06:00 04/11/18 07:00 Temperature Pulse Rate 91 H 91 H 89 Respiratory Rate 28 H 21 Blood Pressure 140/66 Pulse Oximetry 80 L 81 L 04/11/18 07:01 04/11/18 07:30 04/11/18 07:50 Temperature Pulse Rate 89 86 86 Respiratory Rate 22 24 22 Blood Pressure 146/65 H 146/65 H Pulse Oximetry 80 L 75 L 73 L 04/11/18 08:00 04/11/18 08:30 04/11/18 09:00 Temperature 100.2 F H Pulse Rate 88 86 87 Respiratory Rate 23 25 H 24 Blood Pressure 163/70 H Pulse Oximetry 72 L 72 L 71 L 04/11/18 09:01 04/11/18 09:30 04/11/18 10:00 Temperature Pulse Rate 88 89 92 H Respiratory Rate 26 H 23 Blood Pressure 139/63 Pulse Oximetry 72 L 72 L 04/11/18 11:00 04/11/18 11:29 04/11/18 11:30 Temperature Pulse Rate 92 H 92 H 93 H Respiratory Rate 27 H 22 Blood Pressure 142/63 H Pulse Oximetry 69 L 73 L 04/11/18 12:00 04/11/18 12:30 04/11/18 13:00 Temperature Pulse Rate 88 85 84 Respiratory Rate 20 21 21 Blood Pressure 132/60 129/60 Pulse Oximetry 80 L 88 L 88 L 04/11/18 13:03 04/11/18 14:00 Temperature Pulse Rate 80 Respiratory Rate 20 Blood Pressure Pulse Oximetry 90 L Intake & Output 04/10/18 04/11/18 04/11/18 18:59 06:59 18:59 Intake Total 1245 / 1245 1011 / 1011 200 / 200 Output Total 1550 / 1550 1600 / 1600 1300 / 1300 Balance -305 / -305 -589 / -589 -1100 / -1100 Weight 132 kg Intake: IV 750 / 750 400 / 400 200 / 200 Versed Inj 50 mg In 50 ml @ 2 150 / 150 50 / 50 MG/HR 2 mls/hr IV.CONT TITRATE PRN Rx#:[id number] Avycaz Inj 1.25 GM In NS Inj 50 50 / 50 50 / 50 ML @ 25 mls/hr IV.SIG Q8H [facility] Rx#:[id number] Vabomere Inj 2,000 MG In NS Inj 250 / 250 250 ML @ 83.333 mls/hr IV.SIG Q8H [facility] Rx#:[id number] fentaNYL 10 mcg/mL Premix Drip 250 / 250 250 / 250 2,500 mcg In 250 ml @ 50 MCG/HR 5 mls/hr IV.SIG TITRATE PRN Rx #:[id number] Flolan (30,000 ng/mL) Neb 37.5 100 / 100 100 / 100 100 / 100 ML In NS Inj 62.5 ML @ As Directed NEB Q8H [facility] Rx#: [id number] Tube Feeding 495 / 495 491 / 491 Tube Irrigant 120 / 120 Output: Stool 0 / 0 Urine Amount (Catheter) 1550 / 1550 1600 / 1600 1300 / 1300 Indwelling Urethral Catheter 1550 / 1550 1600 / 1600 1300 / 1300 Other: Date of Last Bowel Movement 04/10/18 04/10/18 04/10/18 # Bowel Movements 0 04/10/18 13:05 Sputum - Endotracheal Gram Stain - Final 04/10/18 13:05 Sputum - Endotracheal Sputum Culture - Preliminary Immature growth - reincubate Lab - Hematology Results 04/10/18 04/11/18 04:20 04:16 WBC 14.4 H 13.7 H RBC 3.24 L 3.13 L Hgb 8.7 L 8.4 L Hct 26.1 L 25.2 L MCV 80.5 80.4 MCH 26.9 L 26.7 L MCHC 33.4 33.2 RDW 24.6 H 24.0 H Plt Count 169 164 MPV 10.2 11.0 Neut % (Auto) 83.8 H 83.2 H Lymph % (Auto) 6.2 L 6.8 L [place] % (Auto) 9.7 H 9.3 H Eos % (Auto) 0.1 0.4 Baso % (Auto) 0.2 0.3 Neut # (Auto) 12.1 H 11.4 H Lymph # (Auto) 0.9 L 0.9 L [place] # (Auto) 1.4 H 1.3 H Eos # (Auto) 0.0 0.1 Baso # (Auto) 0.0 0.0 WBC Differential . . Differential Comment Auto diff final Auto diff final Lab - Chemistry Results 04/09/18 04/09/18 04/09/18 16:26 20:27 23:57 Sodium Potassium Chloride Carbon Dioxide Anion Gap BUN Creatinine Estimated GFR POC Glucose 224 H 244 H 228 H Random Glucose Calcium Total Bilirubin AST ALT Alkaline Phosphatase Total Protein Albumin 04/10/18 04/10/18 04/10/18 04:08 04:20 07:58 Sodium 138 Potassium 3.7 Chloride 96 L Carbon Dioxide 31.1 Anion Gap 11 BUN 141 H Creatinine 1.89 H Estimated GFR 34 L POC Glucose 201 H 208 H Random Glucose 201 H Calcium 9.7 Total Bilirubin 0.6 AST 34 ALT 57 H Alkaline Phosphatase 93 Total Protein 6.8 Albumin 2.8 L 04/10/18 04/10/18 04/10/18 11:56 17:04 19:54 Sodium Potassium Chloride Carbon Dioxide Anion Gap BUN Creatinine Estimated GFR POC Glucose 211 H 303 H 312 H Random Glucose Calcium Total Bilirubin AST ALT Alkaline Phosphatase Total Protein Albumin 04/10/18 04/11/18 04/11/18 23:31 03:46 04:16 Sodium 139 Potassium 3.5 Chloride 95 L Carbon Dioxide 32.7 H Anion Gap 11 BUN 146 H Creatinine 1.83 H Estimated GFR POC Glucose 245 H 193 H Random Glucose 162 H Calcium 9.8 Total Bilirubin 0.6 AST 32 ALT 52 Alkaline Phosphatase 93 Total Protein 7.1 Albumin 2.8 L Imaging: ITS Impressions Head CT 03/18/18 18:46 CONCLUSION: 1. Solitary 3 mm hyperdensity in the central [place] of uncertain significance. Differential considerations include a punctate calcification and acute hemorrhage. 2. No acute findings in the supratentorial brain. Head MRI 03/19/18 00:00 CONCLUSION: 1. No evidence of brainstem hemorrhage. 2. Small foci of encephalomalacia in the left occipital lobe and right cerebellum 3. No evidence of acute infarct, hemorrhage, mass or edema. 4. No evidence of enhancing intra-axial or extra-axial lesions. Venous Doppler Study 03/19/18 00:00 CONCLUSION: The study is negative for bilateral lower extremity deep venous thrombosis. Foot X-Ray 03/22/18 00:00 CONCLUSION: No acute bony destructive change. Previous amputations as above. Fairly marked soft tissue swelling of the forefoot. Abdomen X-Ray 03/26/18 00:00 CONCLUSION: Abdomen/Pelvis CT 03/28/18 00:00 CONCLUSION: 1. Minimal increase in the trace bilateral pleural effusions with compressive atelectasis in both bases. 2. Gallstones in a benign-appearing gallbladder 3. I don't see evidence for colitis. 4. I don't see inflammatory changes in the abdomen. Chest CT 03/28/18 00:00 CONCLUSION: 1. Biventricular cardiomegaly with coarse interstitial changes in both lungs. A component of this could be failure 2. Trace bilateral pleural effusions larger on the right.. These have decreased slightly in the interval. Foot MRI 03/28/18 00:00 CONCLUSION: 1. Difficult exam to interpret because of extensive soft tissue swelling. No obvious osteomyelitis. 2. Nuclear medicine tagged white cell study may help. Chest X-Ray 04/11/18 05:17 CONCLUSION: Stable chest x-ray with diffuse bilateral airspace consolidation that is more severe in the lower lung zones. Physical Exam: no acute distress, morbidly obese Head: Present: normocephalic, atraumatic, prominent facial swelling Eye: Present: improved periorbital swelling ENT: Present: mucous membranes moist, oropharynx clear NECK: trachea midline LUNGs: patient mechanically ventilated, fairly clear Cardiovascular : RRR, S1, S2 no murmurs, rubs , gallops Abdominal : soft, less distended no reaction to palpation, no audible bowel sounds no palpable organomegaly liquid stool in rectal collection system : hernandez in place with clear light yellow urine hernandez in place with small amount of clear yellow urine Extremities: edema improved, less prominent 1-2 prominent tree bark meeks Skin : intact, dry, no rash well perfused Neurological : sedated Psychiatric : unable to assess LINE: R IJ removed Assessment and Plan - Plan sp cardiac arrest Anaerobic sepsis; veillonella ? source : GI vs osteo CT and MRI diid not reveal source of her anaerobic sepsis Xrays negative, CT/MR not feasible 2/2 clincial cond'n Acute VDRF, increasing vent requirement s - difficulty weaning PNA, ESBL/ ? KPC Kleb R to zerbaxa, S acvycaz and vabomere worsening CXR worsening oxygenation growing MDRO Kleb again YOU - stable she is doing worse Persistent leukocytosis - much worse Anemia, new. No clincially apparent bleed - Prognosis is poorr due to progressive resp failure survival of this hospitalisation is not expected - cont avycaz - adjsut dose per renal fnx - fu repeat sputum clx S to additional abx - monitor WBC - will need coloscopy after she revoeres (hem + stool and anaerobic sepsis) jeanne RN d/ w family memebers @ b/s jeanne CCM attending
[2018-04-12] MEDS: SODIUM CHLOR NEB SCH ×7 (00:14→19:07)
[2018-04-12] MEDS: EPOPROSTENOL NEB SCH ×7 (00:14→19:07)
[2018-04-12] MEDS: Oral Hygiene Kit OROPHARYNG SCH ×4 (00:17→16:35)
[2018-04-12] MEDS: Midazolam 50 MG/50 ML Inj 50 MG/50 ML BAG IV.CONT PRN ×5 (00:49→19:29)
[2018-04-12] MEDS: Hypromellose 0.3% Opth Gel 10 GM Bottle EACH EYE SCH ×3 (02:49→19:46)
[2018-04-12] MEDS: Insulin NovoLIN Regular Correctional Sugar Inj SQ SCH ×5 (03:18→19:46)
[2018-04-12] MEDS: Ceftazidime/Avibactam Inj 1.25 GM in Sodium Chlor 0.9% Inj 50 ML IV.SIG SCH ×3 (05:03→21:20)
[2018-04-12] MEDS: QUEtiapine 25 MG Tablet PO SCH ×3 (05:03→21:20)
[2018-04-12] MEDS: fentaNYL 10 mcg/mL Premix Drip 2,500 MCG/250 ML BAG IV.SIG PRN ×3 (05:08→23:27)
[2018-04-12 05:11] LABS: Baso % (Auto) 0.3 % (0.0-2.0); Eos % (Auto) 0.3 % (0.0-4.0); Hematocrit 21.7 % (35.0-46.0); Hemoglobin 7.3 gm/dL (11.6-15.3); Lymph # (Auto) 0.7 th/mm3 (1.0-4.8); Lymph % (Auto) 6.8 % (9.0-44.0); Mean Corpuscular HGB Conc 33.5 % (32.0-36.0); Mean Corpuscular Hemoglobin 27.1 pg (27.0-34.0); Mean Corpuscular Volume 81.1 fL (80.0-100.0); Mean Platelet Volume 11.2 fL (7.0-11.0); Mono # (Auto) 0.8 th/mm3 (0.0-0.9); Mono % (Auto) 7.4 % (0.0-8.0); Neut # (Auto) 9.2 th/mm3 (1.8-7.7); Neut % (Auto) 85.2 % (16.0-70.0); Platelet Count 160 th/mm3 (150-450); Red Blood Count 2.68 mil/mm3 (4.00-5.30); Red Cell Distribution Width 24.6 % (11.6-17.2); White Blood Count 10.8 th/mm3 (4.0-11.0)
[2018-04-12 05:30] LABS: Alanine Aminotransferase 42 U/L (10-53); Albumin 2.3 g/dL (3.4-5.0); Anion Gap 14 meq/L (5-15); Aspartate Aminotransferase 30 U/L (15-37); Blood Urea Nitrogen 162 mg/dL (7-18); Calcium 9.5 mg/dL (8.5-10.1); Carbon Dioxide 30.2 meq/L (21.0-32.0); Chloride 96 meq/L (98-107); Glucose,Random 184 mg/dL (74-106); Potassium 3.5 meq/L (3.5-5.1); Sodium 140 meq/L (136-145)
[2018-04-12 05:32] LABS: Alkaline Phosphatase 78 U/L (45-117); Total Protein 6.3 g/dL (6.4-8.2)
[2018-04-12] MEDS: Chlorhexidine 0.12% Oral Kit 15 ML UDC OROPHARYNG SCH ×2 (07:44→19:48)
[2018-04-12] MEDS: Famotidine 20 MG Tablet PO SCH ×2 (08:01→20:08)
[2018-04-12] MEDS: Lipase/Protease/Amylase 24/76/120 DR Capsule PO SCH ×3 (08:01→19:46)
[2018-04-12] MEDS: MethylPREDNISolone Sod Succinate Inj 40 MG/ML Vial IV.PUSH SCH (08:02)
[2018-04-12] MEDS: Heparin - SQ 10,000 UNITS/ML Vial SQ SCH ×2 (08:02→20:07)
[2018-04-12] MEDS: Senna/Docusate Sodium 8.6/50 MG Tablet PO SCH ×2 (08:03→20:09)
[2018-04-12] MEDS: Insulin Detemir Inj 1,000 UNIT/10 ML Vial SQ SCH ×2 (08:04→20:08)
[2018-04-12] MEDS: amLODIPine 10 MG Tablet PO SCH (08:04)
--- NOTE | 2018-04-12 08:05 | P.PNCC ---
Subjective Subjective Remarks/Hospital Course: 52-year-old female with past medical history of diabetes mellitus, hypertension, hyperlipidemia, atrial fibrillation on chronic anticoagulation with warfarin, chronic diastolic heart failure, asthma, WISAM, peripheral vascular disease, super morbid obesity. She has been at [facility] since 03/02/18. Abeba JACOBO was called due to respiratory distress. When they arrived as she was found to be in respiratory distress with sats in the 70s. She was communicating with them and reportedly said "leave me alone". She then had PEA arrest. She received CPR reportedly 10-15 minutes and received 2 doses of epinephrine. LMA was placed by EVAC. LMA was removed and she was intubated by Dr. Daly after receiving etomidate 20 mg IV and succinylcholine. She has demonstrated purposeful movements post intubation, and is now on a propofol drip. She was recently admitted to [facility] 02/24-03/02 due to hypoglycemia, fall after isolated episode of diarrhea, hypoxia requiring HFNC. She has chronic interstitial changes on CXR. Reviewed records from [facility] which indicate she completed a 7 day course of Levaquin and has been on a prednisone taper. Current CXR shows bibasilar opacities. WBC is 16 ( previously 7.9). She has acute hypercapneic and hypoxemic respiratory failure. 03/19: Afebrile. Remains on 100% FiO2 PEEP of 12. Central has been placed for access due to multiple drips. Plan MRI brain today if respiratory status improves. Does not tolerate lying flat. Likely will need epoprostenol and rotaprone 03/20: Started on epoprostenol and currently on a rotor from bed. Currently on cisatracurium drip at 1 mcg/kg/min. Diuresing well. 03/21: Weaning down epoprostenol. Remains on cisatracurium drip at 6 mcg/kg/ min. Diuresis 6 L. Saturation was improved FiO2 down to 45%. 03/22: Hypothermic overnight. Currently euthermic. Excellent response to bumetanide drip. FiO2 down to 40%. PEEP down to 8. Possible discontinue paralytic agent today. 03/23: Resting comfortable in bed in no acute distress. Afebrile. Desaturated so placed back on rotor prone bed. Creatinine slowly increasing. 03/24: Afebrile. Worsening chest x-ray it appears to be volume overloaded again. +10 L past 24 hours. Will restart on bumetanide drip. Plan for bronchoscopy today. Switch to ceftazidime/avibactam secondary to ESBL positive Klebsiella pneumonia 03/25: FiO2 to 55%. Tolerating demanding drip with -2 L past 24 hours. Bronchoscopy results pending. Positive BM. Restarting tube feeding today 03/26: Cr continues to rise, although clinically continues to appear severely volume overloaded. fio2 70%. supine all night. off nimbex. off flolan. ID managing ESBL/MDRO/KPC Klebsiella and anaerobic bacteremia. 03/27: off rotaprone bed. multiple desat episodes overnight. on 100% fio2 and PEEP 10 this AM. good diuresis with net -2L/24h. bumex drip continues. awakens and follows commands. 03/28: not diuresing as well as yesterday. wbc uptrending. 2 more episodes of bradycardia, not associated with hypoxia. however, fio2 remains severely elevated. I increased her peep to 14. still arouses and moves all extremities. high concern for ongoing infectious etiology, but with high o2 requirements and intermittent bradycardia requiring atropine, at present too unstable for repeat imaging. 03/29: ct C/A/P without overt infectious source. does demonstrate radiographic evidence of biventricular dysfunction. bedside echo today demonstrates the same , and dilated IVC without respiratory variation. off vasopressors. required atropine for a HR of 15 once overnight. still very hypoxic: changed to APRV 5:1 , 28/0, 4/0.8. SUBJECTIVE 03/30: remains on APRV with hypoxia. multiple episodes of bradycardia and a 18 second pause yesterday. trialed on dobutamine but with multiple dysrhythmias. now on low-dose dopamine to mitigate bradycardia. adequate diuresis overnight. cxr improving slightly. still remains volume overloaded, and YOU persists. 03/31: mild improvements in fio2. remains on APRV. no more bradycardia today. still on dopamine to prevent pauses/bradycardia. YOU persists, but stable. unable to diurese yesterday and now net +2L despite fluid overload. must increase forced diuresis to improve hypoxemia. 04/01: Remains sedated, orally intubated on mechanical ventilation. Being diuresed. Started on Reglan in view of high gastric residuals and decreasing fentanyl as tolerated. 04/02: Remains sedated, orally intubated on APRV mode mechanical ventilation. 04/03: Remains sedated, orally intubated on mechanical ventilation. Awaiting family meeting with palliative care to decide goals of therapy. Being diuresed. 04/04: Remains sedated, orally intubated on mechanical ventilation. Switch to PRVC mode overnight. On 50% FiO2, PEEP +8. Family deciding regarding goals of therapy. 04/05: Remains sedated, orally intubated on mechanical ventilation. PEEP increased to +10 overnight due to hypoxia. 04/06: Remains sedated, orally intubated on mechanical ventilation. Worsening oxygenation since yesterday. Chest x-ray showed fluid overload. Resume Bumex twice daily yesterday in addition to Zaroxolyn PO. 04/07: Remains sedated, orally intubated on mechanical ventilation. Diuresed. Renal function remains a concern. Started on colistin nebs per ID due to very resistant organisms in sputum. Eventually needs tracheostomy and PEG tube placement. 04/08 Patient remains sedated with Versed and Fentanyl infusion. On Cardene drip.Had T:99.7 last night. Remains on high PEEP and FIO2( PEEP:15, FIO2: 65%) 04/09 Patient is intubated with Versed and Fentanyl drips. Tmax 100.3. Now on PRVC with PEEP:12 and FIO2 100% 04/10 Patient is sedated with Fentanyl and Versed drips. Flolan started yesterday. On PRVC with PEEP: 15 and FIO2 100%. Afebrile. 04/11 Patient was hypoxic overnight with [id number] given Rocuronium 100mg IV for desaturation and vent synchrony remains on high PEEP15 with 100%FIO2. Sedated with Versed and Fentanyl drips. CXR this morning shows diffuse b/l infiltrates severe in lower lung zones. 04/12 Patient remains sedated and intubated and on Flolan. Afebrile. Objective Vital Signs / I&O: Vital Signs 04/11/18 08:00 04/11/18 08:30 04/11/18 09:00 Temperature 100.2 F H Pulse Rate 88 86 87 Respiratory Rate 23 25 H 24 Blood Pressure 163/70 H Pulse Oximetry 72 L 72 L 71 L 04/11/18 09:01 04/11/18 09:30 04/11/18 10:00 Temperature Pulse Rate 88 89 92 H Respiratory Rate 26 H 23 Blood Pressure 139/63 Pulse Oximetry 72 L 72 L 04/11/18 11:00 04/11/18 11:29 04/11/18 11:30 Temperature Pulse Rate 92 H 92 H 93 H Respiratory Rate 27 H 22 Blood Pressure 142/63 H Pulse Oximetry 69 L 73 L 04/11/18 12:00 04/11/18 12:30 04/11/18 13:00 Temperature Pulse Rate 88 85 84 Respiratory Rate 20 21 21 Blood Pressure 132/60 129/60 Pulse Oximetry 80 L 88 L 88 L 04/11/18 13:03 04/11/18 13:30 04/11/18 14:00 Temperature Pulse Rate 83 81 Respiratory Rate 20 25 H 26 H Blood Pressure 134/60 Pulse Oximetry 90 L 89 L 88 L 04/11/18 14:30 04/11/18 15:00 04/11/18 15:30 Temperature Pulse Rate 81 78 75 Respiratory Rate 19 Blood Pressure 131/60 Pulse Oximetry 90 L 91 L 92 L 04/11/18 16:00 04/11/18 16:01 04/11/18 16:30 Temperature 99.4 F Pulse Rate 74 75 72 Respiratory Rate Blood Pressure 126/58 L Pulse Oximetry 93 L 93 L 95 04/11/18 17:00 04/11/18 17:01 04/11/18 17:02 Temperature Pulse Rate 72 72 Respiratory Rate 46 H 47 H 20 Blood Pressure 117/55 L Pulse Oximetry 95 95 94 L 04/11/18 17:30 04/11/18 18:00 04/11/18 18:30 Temperature Pulse Rate 71 68 68 Respiratory Rate 40 H 26 H 51 H Blood Pressure 121/59 L Pulse Oximetry 98 98 99 04/11/18 19:00 04/11/18 19:30 04/11/18 20:00 Temperature Pulse Rate 67 64 64 Respiratory Rate 55 H 46 H 70 H Blood Pressure 123/59 L Pulse Oximetry 97 97 99 04/11/18 20:01 04/11/18 20:30 04/11/18 21:00 Temperature 98.2 F Pulse Rate 68 66 71 Respiratory Rate 61 H 60 H 40 H Blood Pressure 146/67 H Pulse Oximetry 99 98 97 04/11/18 21:01 04/11/18 21:30 04/11/18 21:43 Temperature Pulse Rate 67 64 66 Respiratory Rate 29 H 42 H 20 Blood Pressure 116/59 L Pulse Oximetry 97 99 04/11/18 22:00 04/11/18 22:30 04/11/18 23:00 Temperature Pulse Rate 90 67 86 Respiratory Rate 39 H 42 H 45 H Blood Pressure 124/59 L 127/60 Pulse Oximetry 98 98 98 04/11/18 23:30 04/12/18 00:00 04/12/18 00:01 Temperature 98.6 F Pulse Rate 72 80 81 Respiratory Rate 28 H 29 H 38 H Blood Pressure 134/60 Pulse Oximetry 98 93 L 92 L 04/12/18 00:30 04/12/18 01:00 04/12/18 01:01 Temperature Pulse Rate 63 60 59 L Respiratory Rate 42 H 34 H 39 H Blood Pressure 112/54 L Pulse Oximetry 97 96 96 04/12/18 01:30 04/12/18 02:00 04/12/18 02:30 Temperature Pulse Rate 64 66 63 Respiratory Rate 37 H 37 H 42 H Blood Pressure 115/58 L Pulse Oximetry 96 95 97 04/12/18 03:00 04/12/18 03:30 04/12/18 04:00 Temperature Pulse Rate 61 63 63 Respiratory Rate 43 H 48 H 39 H Blood Pressure 126/57 L Pulse Oximetry 99 98 98 04/12/18 04:01 04/12/18 04:30 04/12/18 04:51 Temperature 98.9 F Pulse Rate 64 75 Respiratory Rate 38 H 27 H 20 Blood Pressure 114/56 L Pulse Oximetry 98 93 L 97 04/12/18 06:00 04/12/18 07:49 Temperature Pulse Rate 63 54 L Respiratory Rate 20 Blood Pressure Pulse Oximetry 99 Intake & Output 04/11/18 04/12/18 04/12/18 18:59 06:59 18:59 Intake Total 250 / 250 639 / 639 100 / 100 Output Total 2300 / 2300 1450 / 1450 Balance -2050 / -2050 -811 / -811 100 / 100 Weight 130 kg Intake: IV 250 / 250 639 / 639 100 / 100 Versed Inj 50 mg In 50 ml @ 2 100 / 100 50 / 50 MG/HR 2 mls/hr IV.CONT TITRATE PRN Rx#:[id number] Avycaz Inj 1.25 GM In NS Inj 50 50 / 50 100 / 100 ML @ 25 mls/hr IV.SIG Q8H [facility] Rx#:[id number] fentaNYL 10 mcg/mL Premix Drip 389 / 389 2,500 mcg In 250 ml @ 50 MCG/HR 5 mls/hr IV.SIG TITRATE PRN Rx #:[id number] Flolan (30,000 ng/mL) Neb 37.5 100 / 100 100 / 100 100 / 100 ML In NS Inj 62.5 ML @ As Directed NEB Q8H [facility] Rx#: [id number] Output: Stool 100 / 100 Urine Amount (Catheter) 2300 / 2300 1350 / 1350 Indwelling Urethral Catheter 2300 / 2300 1350 / 1350 Other: Date of Last Bowel Movement 04/10/18 04/12/18 Result Diagrams: 04/12/18 04:02 04/12/18 04:02 Other Results: Laboratory Results - last 12 hr 04/11/18 04/11/18 04/12/18 20:54 23:34 03:17 WBC RBC Hgb Hct MCV MCH MCHC RDW Plt Count MPV Neut % (Auto) Lymph % (Auto) [place] % (Auto) Eos % (Auto) Baso % (Auto) Neut # (Auto) Lymph # (Auto) [place] # (Auto) Eos # (Auto) Baso # (Auto) WBC Differential Differential Comment Sodium Potassium Chloride Carbon Dioxide Anion Gap BUN Creatinine POC Glucose 278 H 267 H 216 H Random Glucose Calcium Total Bilirubin AST ALT Alkaline Phosphatase Total Protein Albumin 04/12/18 04/12/18 04/12/18 04:02 04:02 07:32 WBC 10.8 RBC 2.68 L Hgb 7.3 L Hct 21.7 L MCV 81.1 MCH 27.1 MCHC 33.5 RDW 24.6 H Plt Count 160 MPV 11.2 H Neut % (Auto) 85.2 H Lymph % (Auto) 6.8 L [place] % (Auto) 7.4 Eos % (Auto) 0.3 Baso % (Auto) 0.3 Neut # (Auto) 9.2 H Lymph # (Auto) 0.7 L [place] # (Auto) 0.8 Eos # (Auto) 0.0 Baso # (Auto) 0.0 WBC Differential . Differential Comment Auto diff final Sodium 140 Potassium 3.5 Chloride 96 L Carbon Dioxide 30.2 Anion Gap 14 BUN 162 H Creatinine 1.96 H POC Glucose 160 H Random Glucose 184 H Calcium 9.5 Total Bilirubin 0.7 AST 30 ALT 42 Alkaline Phosphatase 78 Total Protein 6.3 L D Albumin 2.3 L Imaging: Head CT 03/18/18 18:46 CONCLUSION: 1. Solitary 3 mm hyperdensity in the central [place] of uncertain significance. Differential considerations include a punctate calcification and acute hemorrhage. 2. No acute findings in the supratentorial brain. Head MRI 03/19/18 00:00 CONCLUSION: 1. No evidence of brainstem hemorrhage. 2. Small foci of encephalomalacia in the left occipital lobe and right cerebellum 3. No evidence of acute infarct, hemorrhage, mass or edema. 4. No evidence of enhancing intra-axial or extra-axial lesions. Venous Doppler Study 03/19/18 00:00 CONCLUSION: The study is negative for bilateral lower extremity deep venous thrombosis. Foot X-Ray 03/22/18 00:00 CONCLUSION: No acute bony destructive change. Previous amputations as above. Fairly marked soft tissue swelling of the forefoot. Abdomen X-Ray 03/26/18 00:00 CONCLUSION: Abdomen/Pelvis CT 03/28/18 00:00 CONCLUSION: 1. Minimal increase in the trace bilateral pleural effusions with compressive atelectasis in both bases. 2. Gallstones in a benign-appearing gallbladder 3. I don't see evidence for colitis. 4. I don't see inflammatory changes in the abdomen. Chest CT 03/28/18 00:00 CONCLUSION: 1. Biventricular cardiomegaly with coarse interstitial changes in both lungs. A component of this could be failure 2. Trace bilateral pleural effusions larger on the right.. These have decreased slightly in the interval. Foot MRI 03/28/18 00:00 CONCLUSION: 1. Difficult exam to interpret because of extensive soft tissue swelling. No obvious osteomyelitis. 2. Nuclear medicine tagged white cell study may help. Chest X-Ray 04/11/18 05:17 CONCLUSION: Stable chest x-ray with diffuse bilateral airspace consolidation that is more severe in the lower lung zones. Objective Remarks: GENERAL: SKIN: Warm and dry. HEAD: Normocephalic. EYES: No scleral icterus. No injection or drainage. NECK: Supple, trachea midline. No JVD or lymphadenopathy. CARDIOVASCULAR: Regular rate and rhythm without murmurs, gallops, or rubs. RESPIRATORY: Breath sounds equal bilaterally. No accessory muscle use. GASTROINTESTINAL: Abdomen soft, non-tender, nondistended. MUSCULOSKELETAL: No cyanosis, or edema. Neuro: sedated and intubated. Assessment and Plan - Assessment and Plan Plan: Assessment: 52yF with severe ARDS and organ failure secondary to MDRO/ESBL/KPC Klebsiella and Veillonella bacteremia. remains very critically ill. does still appear to be volume overloaded combined with significant myocardial dysfunction. continue dopamine to prevent bradycardia. continue APRV mode of ventilation. continue forced diuresis. Family concerned about goals of care and if this level of care was consistent with patient's wishes. I think it is hernandez to get palliative care involved. however, it does appear that given her young age, we could successfully rehabilitate her to a functional status at least consistent with her prior functional status at her SNF, and possibly improved depending on her clinical course. Of course this would take months of rehabilitation, and will likely include trach/peg due to her severe ARDS and hypoxia. I would support aggressive measures at this point, unless it becomes clear that the patient has a strong opinion against such measures. Remains critically ill today with multiple ongoing life-threatening organ dysfunction. NEURO/PSYCH: Acute encephalopathy - secondary to hypercapnia, improving. Abnormal brain CT with 3 mm hyperdensity in central [place] Major depressive disorder NOS Chronic opioid use Encephalomalacia right cerebellum/left occipital lobe scheduled oxycodone 20mg po q4h Seroquel 50mg po q8h for delirium. Continue with versed and fentanyl forsedation and vent synchrony Monitor neuro status. Daily sedation vacation when clinically appropriate.. Followup CT brain - . Solitary 3 mm hyperdensity in the central [place] of uncertain significance. Differential considerations include a punctate calcification and acute hemorrhage RESP: Acute hypercapnic and hypoxemic respiratory failure Severe ARDS Acute asthma exacerbation Healthcare associated pneumonia WISAM/OHS Prior tobacco abuse Bilateral pleural effusions right 2.2 cm. Left 1.3 cm LMA was placed in the field by EVAC. Intubated in ED 03/18 Continue with vent support keep sats >92% On albuterol/ipratropium aerosols every 4 hours with albuterol aerosols every 2 hours as needed for dyspnea Weaned off epoprostenol 03/23. Flolan resumed 04/09 On PRVC RR 20, TV 550, IT:1.10, PEEP:15, FIO2: 100% On Solumederol 40mg IV daily, CXR 04/11 b/l lower lung zone airspace consolidation. CV: Hypertension Hyperlipidemia Chronic diastolic heart failure Paroxysmal atrial fibrillation on chronic anti-coagulation with warfarin Peripheral vascular disease/peripheral arterial disease Elevated troponin intermittent bradycardia Cor pulmonale biventricular dysfunction Monitor HR and BP keep MAP>65mmHg 2D echo 02/24/18ejection fraction 50%. Wall thickness upper limits of normal. Trace MR. Lactic acid cleared Continue atorvastatin 40 mg daily Doppler bilateral upper and lower extremities revealed no acute thrombus amlodipine 10mg po daily hydralazine 100mg po q8h, Clonidine patch Coreg 3.125 mg BID, GI: History of GERD Chronic pancreatitis insufficiency Hypoalbuminemia vital high-protein goal 45 cc an hour per GIs recommendation Famotidine for GI prophylaxis Docusate sodium/senna 1 tablet twice daily for bowel regimen Creon home medication 3 times daily FEN/RENAL: Acute kidney injury superimposed on CKD Chronic kidney disease stage III Acute severe intravascular volume overload with pulmonary edema [place] catheter was placed in the emergency department. Monitor renal function, I/O's, avoid nephrotoxins On Bumex 2mg TID, Zaroxolyn 5mg Q12 Renal is following- Dr. Fraser Renal function slightly worse today with Cr: 1.96 from 1.83 ID: Acute healthcare associated pneumonia -ESBL positive Klebsiella pneumonia Veillonella species bacteremia Continue with abx per ID (Avycaz, Colistin nebs,) Monitor for signs of infections ( Fever, WBC) Blood cultures 2 03/18 Veillonella spp. Repeat 03/20 no growth to date Sputum, ESBL positive Klebsiella pneumonia 04/04 Pneumococcal urinary antigens, influenza a and B and chlamydia and mycoplasma all pending/negative HEME: Leukocytosis Chronic anemia/normocytic Monitor CBC daily. Follow trends. No indication for transfusion of blood products at this time. ENDO: Diabetes mellitus History of gout SSI q4h high scale Levemir 5 units SQ BID Holding glipizide 10 mg twice daily and insulin glargine/home medication Holding allopurinol 300 mg daily/home medication MSK: Elevated BMI Osteoporosis/osteoarthritis PT evaluate and treat PROPH: SCDs for DVT prophylaxis. Heparin SQ ACCESS: Peripheral IV's Doppler US B/l Upper and lower EXT negative for DVT on 03/19 Palliative care is following Per Dr. Major : Discussed at length with patient's brother at bedside previously. Explained to him the need for tracheostomy however patient needs to be weaned down further on mechanical ventilation prior to procedure. He tells me that patient would not want tracheostomy and assisted placement based on his previous discussions with her. He tells me that she was not doing well for the last 6 months prior to her current hospitalization. Discussed with patient's son on 04/06 regarding need for tracheostomy PEG tube placement and possible assisted placement. Also discussed the fact that patient has previously expressed to her brother that she would not want these procedures done. He tells me that he would be the final decision-maker and wishes to talk to his family before making any decisions and was reluctant to talk further with me. Prognosis guared patient is critically ill with severe ARDS, refractory hypoxemia/ resp failure and multiorgan injury. Discussed with patient's son yesterday and updated him oh her condition. Critical care time 30 minutes, exclusive of separately billed procedures.
[2018-04-12] MEDS: Sod Chloride 0.9% Inj 1,000 ML OTHER SCH (10:56)
--- NOTE | 2018-04-12 11:37 | P.PNNP ---
Subjective Interval history: remains on the ventilator. On 100 %FiO2. Frequent PVCs. Excellent urine output, negative fluid balance. Physical Exam Vital signs: Vital Signs 04/11/18 12:00 04/11/18 12:30 04/11/18 13:00 Temperature Pulse Rate 88 85 84 Respiratory Rate 20 21 21 Blood Pressure 132/60 129/60 Pulse Oximetry 80 L 88 L 88 L 04/11/18 13:03 04/11/18 13:30 04/11/18 14:00 Temperature Pulse Rate 83 81 Respiratory Rate 20 25 H 26 H Blood Pressure 134/60 Pulse Oximetry 90 L 89 L 88 L 04/11/18 14:30 04/11/18 15:00 04/11/18 15:30 Temperature Pulse Rate 81 78 75 Respiratory Rate 19 Blood Pressure 131/60 Pulse Oximetry 90 L 91 L 92 L 04/11/18 16:00 04/11/18 16:01 04/11/18 16:30 Temperature 99.4 F Pulse Rate 74 75 72 Respiratory Rate Blood Pressure 126/58 L Pulse Oximetry 93 L 93 L 95 04/11/18 17:00 04/11/18 17:01 04/11/18 17:02 Temperature Pulse Rate 72 72 Respiratory Rate 46 H 47 H 20 Blood Pressure 117/55 L Pulse Oximetry 95 95 94 L 04/11/18 17:30 04/11/18 18:00 04/11/18 18:30 Temperature Pulse Rate 71 68 68 Respiratory Rate 40 H 26 H 51 H Blood Pressure 121/59 L Pulse Oximetry 98 98 99 04/11/18 19:00 04/11/18 19:30 04/11/18 20:00 Temperature Pulse Rate 67 64 64 Respiratory Rate 55 H 46 H 70 H Blood Pressure 123/59 L Pulse Oximetry 97 97 99 04/11/18 20:01 04/11/18 20:30 04/11/18 21:00 Temperature 98.2 F Pulse Rate 68 66 71 Respiratory Rate 61 H 60 H 40 H Blood Pressure 146/67 H Pulse Oximetry 99 98 97 04/11/18 21:01 04/11/18 21:30 04/11/18 21:43 Temperature Pulse Rate 67 64 66 Respiratory Rate 29 H 42 H 20 Blood Pressure 116/59 L Pulse Oximetry 97 99 04/11/18 22:00 04/11/18 22:30 04/11/18 23:00 Temperature Pulse Rate 90 67 86 Respiratory Rate 39 H 42 H 45 H Blood Pressure 124/59 L 127/60 Pulse Oximetry 98 98 98 04/11/18 23:30 04/12/18 00:00 04/12/18 00:01 Temperature 98.6 F Pulse Rate 72 80 81 Respiratory Rate 28 H 29 H 38 H Blood Pressure 134/60 Pulse Oximetry 98 93 L 92 L 04/12/18 00:30 04/12/18 01:00 04/12/18 01:01 Temperature Pulse Rate 63 60 59 L Respiratory Rate 42 H 34 H 39 H Blood Pressure 112/54 L Pulse Oximetry 97 96 96 04/12/18 01:30 04/12/18 02:00 04/12/18 02:30 Temperature Pulse Rate 64 66 63 Respiratory Rate 37 H 37 H 42 H Blood Pressure 115/58 L Pulse Oximetry 96 95 97 04/12/18 03:00 04/12/18 03:30 04/12/18 04:00 Temperature Pulse Rate 61 63 63 Respiratory Rate 43 H 48 H 39 H Blood Pressure 126/57 L Pulse Oximetry 99 98 98 04/12/18 04:01 04/12/18 04:30 04/12/18 04:51 Temperature 98.9 F Pulse Rate 64 75 Respiratory Rate 38 H 27 H 20 Blood Pressure 114/56 L Pulse Oximetry 98 93 L 97 04/12/18 06:00 04/12/18 07:00 04/12/18 07:01 Temperature Pulse Rate 63 60 59 L Respiratory Rate 20 20 Blood Pressure 118/49 L Pulse Oximetry 99 99 04/12/18 07:30 04/12/18 07:49 04/12/18 08:00 Temperature Pulse Rate 63 54 L 68 Respiratory Rate 20 20 20 Blood Pressure 118/54 L Pulse Oximetry 97 99 97 04/12/18 08:30 04/12/18 09:00 04/12/18 09:01 Temperature Pulse Rate 60 63 67 Respiratory Rate 20 20 20 Blood Pressure 104/54 L Pulse Oximetry 99 98 99 04/12/18 09:30 Temperature Pulse Rate 60 Respiratory Rate 20 Blood Pressure Pulse Oximetry 99 Intake & Output 04/11/18 04/12/18 04/12/18 18:59 06:59 18:59 Intake Total 250 / 250 639 / 639 184.1 / 184.1 Output Total 2300 / 2300 1450 / 1450 Balance -0 / -2050 -811 / -811 184.1 / 184.1 Weight 130 kg Intake: IV 250 / 250 639 / 639 184.1 / 184.1 Versed Inj 50 mg In 50 ml @ 2 100 / 100 50 / 50 34.1 / 34.1 MG/HR 2 mls/hr IV.CONT TITRATE PRN Rx#:[id number] Avycaz Inj 1.25 GM In NS Inj 50 50 / 50 100 / 100 50 / 50 ML @ 25 mls/hr IV.SIG Q8H JACKI Rx#:[id number] fentaNYL 10 mcg/mL Premix Drip 389 / 389 2,500 mcg In 250 ml @ 50 MCG/HR 5 mls/hr IV.SIG TITRATE PRN Rx #:[id number] Flolan (30,000 ng/mL) Neb 37.5 100 / 100 100 / 100 100 / 100 ML In NS Inj 62.5 ML @ As Directed NEB Q8H JACKI Rx#: [id number] Output: Stool 100 / 100 Urine Amount (Catheter) 2300 / 2300 1350 / 1350 Indwelling Urethral Catheter 2300 / 2300 1350 / 1350 Other: Date of Last Bowel Movement 04/10/18 04/12/18 04/12/18 - Constitutional Comments: on the ventilator. Unresponsive. - Routine HEENT Exam Head: Present: normocephalic, atraumatic Eye: Present: EOMI, PERRL - Routine Neck Exam Present: supple. Absent: JVD, thyromegaly - Routine Respiratory Exam Present: rales, rhonchi, wheezes - Routine Cardiovascular Exam Present: S1, S2, irregular rhythm - Routine Abdominal Exam Present: soft - Routine Skin Exam Present: intact - Urinary Catheter Management Indwelling Urethral Catheter Cath placed during this visit: yes Reason for continuing: Hourly intake/output Insertion date: 03/18/18 Insertion time: 21:00 Assessment and Plan - Assessment (1) Acute renal failure superimposed on stage 3 chronic kidney disease Code(s): N17.9 - Acute kidney failure, unspecified; N18.3 - Chronic kidney disease, stage 3 (moderate) Status: Acute Plan: Her baseline creatinine runs 1.6-2, GFR 44. YOU most likely due to cardiac arrest and decreased renal perfusion. BUN and creatinine are higher today. High and disproportionately elevated BUN is getting worse. On Bumex TID 2 mg. Negative fluid balance has been achieved. Avoid nephrotoxic agents,dose appropriate to renal status. Prognosis is very poor. (2) Acute respiratory failure with hypoxemia Code(s): J96.01 - Acute respiratory failure with hypoxia Status: Acute Plan: ARDS. Not responding. Poor prognosis. Management per critical care service. (3) Diabetes mellitus type 2 in obese Code(s): E11.69 - Type 2 diabetes mellitus with other specified complication; E66.9 - Obesity, unspecified Status: Chronic Plan: Maintain glucose 140-180mg/dL while hospitalized. Use insulin if needed. (4) Hypertension Code(s): I10 - Essential (primary) hypertension Status: Chronic Plan: Monitor BP. Continue medications as ordered. (5) HCAP (healthcare-associated pneumonia) Code(s): J18.9 - Pneumonia, unspecified organism Status: Acute Plan: ID is following, managing antibiotics. Currently on Avycaz and Meropenem. s/p bronch with cultures reviewed. (6) Diastolic heart failure Code(s): I50.30 - Unspecified diastolic (congestive) heart failure Status: Acute Plan: Monitor fluid status. Continue diuresis. She had an echo previous admission, EF 50%.
[2018-04-13] MEDS: Midazolam 50 MG/50 ML Inj 50 MG/50 ML BAG IV.CONT PRN ×5 (00:45→22:11)
[2018-04-13] MEDS: Insulin NovoLIN Regular Correctional Sugar Inj SQ SCH ×6 (01:27→20:02)
[2018-04-13] MEDS: Oral Hygiene Kit OROPHARYNG SCH ×4 (01:27→15:01)
[2018-04-13 05:12] LABS: Alanine Aminotransferase 41 U/L (10-53); Albumin 2.4 g/dL (3.4-5.0); Anion Gap 12 meq/L (5-15); Aspartate Aminotransferase 33 U/L (15-37); Calcium 9.8 mg/dL (8.5-10.1); Carbon Dioxide 32.3 meq/L (21.0-32.0); Chloride 97 meq/L (98-107); Glomerular Filtration Rate 33 mL/min (>89); Glucose,Random 280 mg/dL (74-106); Potassium 3.4 meq/L (3.5-5.1)
[2018-04-13 05:14] LABS: Alkaline Phosphatase 80 U/L (45-117); Total Protein 6.5 g/dL (6.4-8.2)
[2018-04-13 05:23] LABS: Baso # (Auto) 0.1 th/mm3 (0.0-0.2); Baso % (Auto) 0.6 % (0.0-2.0); Eos % (Auto) 0.2 % (0.0-4.0); Hematocrit 22.9 % (35.0-46.0); Hemoglobin 7.7 gm/dL (11.6-15.3); Lymph # (Auto) 0.9 th/mm3 (1.0-4.8); Lymph % (Auto) 7.7 % (9.0-44.0); Mean Corpuscular HGB Conc 33.6 % (32.0-36.0); Mean Corpuscular Hemoglobin 26.9 pg (27.0-34.0); Mean Corpuscular Volume 79.9 fL (80.0-100.0); Mean Platelet Volume 11.2 fL (7.0-11.0); Mono # (Auto) 0.5 th/mm3 (0.0-0.9); Mono % (Auto) 4.6 % (0.0-8.0); Neut # (Auto) 10.2 th/mm3 (1.8-7.7); Neut % (Auto) 86.9 % (16.0-70.0); Platelet Count 153 th/mm3 (150-450); Red Blood Count 2.86 mil/mm3 (4.00-5.30); Red Cell Distribution Width 24.2 % (11.6-17.2); White Blood Count 11.7 th/mm3 (4.0-11.0)
[2018-04-13] MEDS: EPOPROSTENOL NEB SCH ×4 (05:23→22:15)
[2018-04-13] MEDS: SODIUM CHLOR NEB SCH ×4 (05:23→22:15)
[2018-04-13] MEDS: Hypromellose 0.3% Opth Gel 10 GM Bottle EACH EYE SCH ×3 (05:24→18:03)
[2018-04-13 05:25] LABS: Sodium 141 meq/L (136-145)
[2018-04-13] MEDS: Ceftazidime/Avibactam Inj 1.25 GM in Sodium Chlor 0.9% Inj 50 ML IV.SIG SCH ×3 (05:25→21:56)
[2018-04-13] MEDS: QUEtiapine 25 MG Tablet PO SCH ×3 (05:25→21:22)
[2018-04-13 05:44] LABS: Blood Urea Nitrogen 165 mg/dL (7-18)
[2018-04-13] MEDS: Lipase/Protease/Amylase 24/76/120 DR Capsule PO SCH ×3 (08:25→17:58)
[2018-04-13] MEDS: MethylPREDNISolone Sod Succinate Inj 40 MG/ML Vial IV.PUSH SCH (08:25)
[2018-04-13] MEDS: Senna/Docusate Sodium 8.6/50 MG Tablet PO SCH ×2 (08:26→20:03)
[2018-04-13] MEDS: Famotidine 20 MG Tablet PO SCH ×2 (08:26→20:03)
[2018-04-13] MEDS: amLODIPine 10 MG Tablet PO SCH (08:27)
--- NOTE | 2018-04-13 08:28 | P.PNCC ---
Subjective Subjective Remarks/Hospital Course: 52-year-old female with past medical history of diabetes mellitus, hypertension, hyperlipidemia, atrial fibrillation on chronic anticoagulation with warfarin, chronic diastolic heart failure, asthma, WISAM, peripheral vascular disease, super morbid obesity. She has been at [facility] since 03/02/18. Abeba JACOBO was called due to respiratory distress. When they arrived as she was found to be in respiratory distress with sats in the 70s. She was communicating with them and reportedly said "leave me alone". She then had PEA arrest. She received CPR reportedly 10-15 minutes and received 2 doses of epinephrine. LMA was placed by EVAC. LMA was removed and she was intubated by Dr. Daly after receiving etomidate 20 mg IV and succinylcholine. She has demonstrated purposeful movements post intubation, and is now on a propofol drip. She was recently admitted to [facility] 02/24-03/02 due to hypoglycemia, fall after isolated episode of diarrhea, hypoxia requiring HFNC. She has chronic interstitial changes on CXR. Reviewed records from [facility] which indicate she completed a 7 day course of Levaquin and has been on a prednisone taper. Current CXR shows bibasilar opacities. WBC is 16 ( previously 7.9). She has acute hypercapneic and hypoxemic respiratory failure. 03/19: Afebrile. Remains on 100% FiO2 PEEP of 12. Central has been placed for access due to multiple drips. Plan MRI brain today if respiratory status improves. Does not tolerate lying flat. Likely will need epoprostenol and rotaprone 03/20: Started on epoprostenol and currently on a rotor from bed. Currently on cisatracurium drip at 1 mcg/kg/min. Diuresing well. 03/21: Weaning down epoprostenol. Remains on cisatracurium drip at 6 mcg/kg/ min. Diuresis 6 L. Saturation was improved FiO2 down to 45%. 03/22: Hypothermic overnight. Currently euthermic. Excellent response to bumetanide drip. FiO2 down to 40%. PEEP down to 8. Possible discontinue paralytic agent today. 03/23: Resting comfortable in bed in no acute distress. Afebrile. Desaturated so placed back on rotor prone bed. Creatinine slowly increasing. 03/24: Afebrile. Worsening chest x-ray it appears to be volume overloaded again. +10 L past 24 hours. Will restart on bumetanide drip. Plan for bronchoscopy today. Switch to ceftazidime/avibactam secondary to ESBL positive Klebsiella pneumonia 03/25: FiO2 to 55%. Tolerating demanding drip with -2 L past 24 hours. Bronchoscopy results pending. Positive BM. Restarting tube feeding today 03/26: Cr continues to rise, although clinically continues to appear severely volume overloaded. fio2 70%. supine all night. off nimbex. off flolan. ID managing ESBL/MDRO/KPC Klebsiella and anaerobic bacteremia. 03/27: off rotaprone bed. multiple desat episodes overnight. on 100% fio2 and PEEP 10 this AM. good diuresis with net -2L/24h. bumex drip continues. awakens and follows commands. 03/28: not diuresing as well as yesterday. wbc uptrending. 2 more episodes of bradycardia, not associated with hypoxia. however, fio2 remains severely elevated. I increased her peep to 14. still arouses and moves all extremities. high concern for ongoing infectious etiology, but with high o2 requirements and intermittent bradycardia requiring atropine, at present too unstable for repeat imaging. 03/29: ct C/A/P without overt infectious source. does demonstrate radiographic evidence of biventricular dysfunction. bedside echo today demonstrates the same , and dilated IVC without respiratory variation. off vasopressors. required atropine for a HR of 15 once overnight. still very hypoxic: changed to APRV 5:1 , 28/0, 4/0.8. SUBJECTIVE 03/30: remains on APRV with hypoxia. multiple episodes of bradycardia and a 18 second pause yesterday. trialed on dobutamine but with multiple dysrhythmias. now on low-dose dopamine to mitigate bradycardia. adequate diuresis overnight. cxr improving slightly. still remains volume overloaded, and YOU persists. 03/31: mild improvements in fio2. remains on APRV. no more bradycardia today. still on dopamine to prevent pauses/bradycardia. YOU persists, but stable. unable to diurese yesterday and now net +2L despite fluid overload. must increase forced diuresis to improve hypoxemia. 04/01: Remains sedated, orally intubated on mechanical ventilation. Being diuresed. Started on Reglan in view of high gastric residuals and decreasing fentanyl as tolerated. 04/02: Remains sedated, orally intubated on APRV mode mechanical ventilation. 04/03: Remains sedated, orally intubated on mechanical ventilation. Awaiting family meeting with palliative care to decide goals of therapy. Being diuresed. 04/04: Remains sedated, orally intubated on mechanical ventilation. Switch to PRVC mode overnight. On 50% FiO2, PEEP +8. Family deciding regarding goals of therapy. 04/05: Remains sedated, orally intubated on mechanical ventilation. PEEP increased to +10 overnight due to hypoxia. 04/06: Remains sedated, orally intubated on mechanical ventilation. Worsening oxygenation since yesterday. Chest x-ray showed fluid overload. Resume Bumex twice daily yesterday in addition to Zaroxolyn PO. 04/07: Remains sedated, orally intubated on mechanical ventilation. Diuresed. Renal function remains a concern. Started on colistin nebs per ID due to very resistant organisms in sputum. Eventually needs tracheostomy and PEG tube placement. 04/08 Patient remains sedated with Versed and Fentanyl infusion. On Cardene drip.Had T:99.7 last night. Remains on high PEEP and FIO2( PEEP:15, FIO2: 65%) 04/09 Patient is intubated with Versed and Fentanyl drips. Tmax 100.3. Now on PRVC with PEEP:12 and FIO2 100% 04/10 Patient is sedated with Fentanyl and Versed drips. Flolan started yesterday. On PRVC with PEEP: 15 and FIO2 100%. Afebrile. 04/11 Patient was hypoxic overnight with ivoo25-20's given Rocuronium 100mg IV for desaturation and vent synchrony remains on high PEEP15 with 100%FIO2. Sedated with Versed and Fentanyl drips. CXR this morning shows diffuse b/l infiltrates severe in lower lung zones. 04/12 Patient remains sedated and intubated and on Flolan. Afebrile. 04/13 Patient remains sedated with Versed and Fentanyl and intubated. Afebrile. On Flolan . On PRVC with PEEP: 15, FIO2 down 70%. Objective Vital Signs / I&O: Vital Signs 04/12/18 08:30 04/12/18 09:00 04/12/18 09:01 Temperature Pulse Rate 60 63 67 Respiratory Rate 20 20 20 Blood Pressure 104/54 L Pulse Oximetry 99 98 99 04/12/18 09:30 04/12/18 10:00 04/12/18 10:01 Temperature Pulse Rate 60 57 L 55 L Respiratory Rate 20 20 20 Blood Pressure 124/58 L Pulse Oximetry 99 99 99 04/12/18 10:30 04/12/18 11:00 04/12/18 11:01 Temperature Pulse Rate 56 L 55 L 57 L Respiratory Rate 20 20 20 Blood Pressure 132/63 Pulse Oximetry 100 100 99 04/12/18 11:30 04/12/18 12:00 04/12/18 12:01 Temperature Pulse Rate 56 L 52 L 53 L Respiratory Rate 20 20 20 Blood Pressure 142/65 H Pulse Oximetry 99 100 99 04/12/18 12:19 04/12/18 12:30 04/12/18 13:00 Temperature Pulse Rate 52 L 53 L Respiratory Rate 20 20 20 Blood Pressure Pulse Oximetry 99 99 99 04/12/18 13:01 04/12/18 13:30 04/12/18 14:00 Temperature Pulse Rate 53 L 52 L 51 L Respiratory Rate 20 Blood Pressure 135/62 Pulse Oximetry 99 99 99 04/12/18 14:01 04/12/18 14:30 04/12/18 15:00 Temperature Pulse Rate 51 L 54 L 52 L Respiratory Rate 20 Blood Pressure 129/60 Pulse Oximetry 99 100 98 04/12/18 15:01 04/12/18 15:30 04/12/18 15:45 Temperature Pulse Rate 53 L 52 L Respiratory Rate 20 Blood Pressure 131/58 L Pulse Oximetry 98 99 99 04/12/18 16:00 04/12/18 16:30 04/12/18 17:00 Temperature Pulse Rate 52 L 52 L 54 L Respiratory Rate Blood Pressure 141/63 H Pulse Oximetry 99 99 99 04/12/18 17:01 04/12/18 17:32 04/12/18 20:00 Temperature 98.3 F Pulse Rate 55 L 55 L 54 L Respiratory Rate 20 Blood Pressure 139/63 149/67 H Pulse Oximetry 99 98 04/12/18 20:21 04/12/18 22:00 04/13/18 00:00 Temperature 98.6 F Pulse Rate 55 L 52 L 55 L Respiratory Rate 20 20 Blood Pressure 115/55 L Pulse Oximetry 98 99 04/13/18 00:03 04/13/18 02:00 04/13/18 03:57 Temperature Pulse Rate 54 L Respiratory Rate 20 24 Blood Pressure Pulse Oximetry 98 98 04/13/18 04:00 04/13/18 06:00 04/13/18 07:50 Temperature 98.4 F Pulse Rate 51 L 59 L 62 Respiratory Rate 20 20 Blood Pressure 116/57 L Pulse Oximetry 97 04/13/18 07:51 Temperature Pulse Rate Respiratory Rate 20 Blood Pressure Pulse Oximetry 97 Intake & Output 04/12/18 04/13/18 04/13/18 18:59 06:59 18:59 Intake Total 1114.1 / 1114.1 1652 / 1652 Output Total 1600 / 1600 1900 / 1900 Balance -485.9 / -485.9 -248 / -248 Weight 127 kg Intake: IV 574.1 / 574.1 600 / 600 Versed Inj 50 mg In 50 ml @ 2 84.1 / 84.1 150 / 150 MG/HR 2 mls/hr IV.CONT TITRATE PRN Rx#:[id number] Avycaz Inj 1.25 GM In NS Inj 50 50 / 50 100 / 100 ML @ 25 mls/hr IV.SIG Q8H [facility] Rx#:[id number] fentaNYL 10 mcg/mL Premix Drip 240 / 240 250 / 250 2,500 mcg In 250 ml @ 50 MCG/HR 5 mls/hr IV.SIG TITRATE PRN Rx #:[id number] Flolan (30,000 ng/mL) Neb 37.5 200 / 200 100 / 100 ML In NS Inj 62.5 ML @ As Directed NEB Q8H [facility] Rx#: [id number] Tube Feeding 540 / 540 1052 / 1052 Output: Stool 100 / 100 Urine Amount (Catheter) 1600 / 1600 1800 / 1800 Indwelling Urethral Catheter 1600 / 1600 1800 / 1800 Other: Date of Last Bowel Movement 04/12/18 04/13/18 Result Diagrams: 04/13/18 04:05 04/13/18 04:05 Other Results: Laboratory Results - last 12 hr 04/13/18 04/13/18 04/13/18 01:17 04:05 04:05 WBC 11.7 H RBC 2.86 L Hgb 7.7 L Hct 22.9 L MCV 79.9 L MCH 26.9 L MCHC 33.6 RDW 24.2 H Plt Count 153 MPV 11.2 H Neut % (Auto) 86.9 H Lymph % (Auto) 7.7 L Dickens % (Auto) 4.6 Eos % (Auto) 0.2 Baso % (Auto) 0.6 Neut # (Auto) 10.2 H Lymph # (Auto) 0.9 L Dickens # (Auto) 0.5 Eos # (Auto) 0.0 Baso # (Auto) 0.1 WBC Differential . Differential Comment Auto diff final Hematology Comments Sodium 141 Potassium 3.4 L Chloride 97 L Carbon Dioxide 32.3 H Anion Gap 12 BUN 165 H Creatinine 1.90 H Estimated GFR 33 L POC Glucose 303 H Random Glucose 280 H Calcium 9.8 Total Bilirubin 0.6 AST 33 ALT 41 Alkaline Phosphatase 80 Total Protein 6.5 Albumin 2.4 L 04/13/18 05:22 WBC RBC Hgb Hct MCV MCH MCHC RDW Plt Count MPV Neut % (Auto) Lymph % (Auto) Dickens % (Auto) Eos % (Auto) Baso % (Auto) Neut # (Auto) Lymph # (Auto) Dickens # (Auto) Eos # (Auto) Baso # (Auto) WBC Differential Differential Comment Hematology Comments Sodium Potassium Chloride Carbon Dioxide Anion Gap BUN Creatinine Estimated GFR POC Glucose 283 H Random Glucose Calcium Total Bilirubin AST ALT Alkaline Phosphatase Total Protein Albumin Imaging: Head CT 03/18/18 18:46 CONCLUSION: 1. Solitary 3 mm hyperdensity in the central [place] of uncertain significance. Differential considerations include a punctate calcification and acute hemorrhage. 2. No acute findings in the supratentorial brain. Head MRI 03/19/18 00:00 CONCLUSION: 1. No evidence of brainstem hemorrhage. 2. Small foci of encephalomalacia in the left occipital lobe and right cerebellum 3. No evidence of acute infarct, hemorrhage, mass or edema. 4. No evidence of enhancing intra-axial or extra-axial lesions. Venous Doppler Study 03/19/18 00:00 CONCLUSION: The study is negative for bilateral lower extremity deep venous thrombosis. Foot X-Ray 03/22/18 00:00 CONCLUSION: No acute bony destructive change. Previous amputations as above. Fairly marked soft tissue swelling of the forefoot. Abdomen X-Ray 03/26/18 00:00 CONCLUSION: Abdomen/Pelvis CT 03/28/18 00:00 CONCLUSION: 1. Minimal increase in the trace bilateral pleural effusions with compressive atelectasis in both bases. 2. Gallstones in a benign-appearing gallbladder 3. I don't see evidence for colitis. 4. I don't see inflammatory changes in the abdomen. Chest CT 03/28/18 00:00 CONCLUSION: 1. Biventricular cardiomegaly with coarse interstitial changes in both lungs. A component of this could be failure 2. Trace bilateral pleural effusions larger on the right.. These have decreased slightly in the interval. Foot MRI 03/28/18 00:00 CONCLUSION: 1. Difficult exam to interpret because of extensive soft tissue swelling. No obvious osteomyelitis. 2. Nuclear medicine tagged white cell study may help. Chest X-Ray 04/11/18 05:17 CONCLUSION: Stable chest x-ray with diffuse bilateral airspace consolidation that is more severe in the lower lung zones. Objective Remarks: GENERAL: SKIN: Warm and dry. HEAD: Normocephalic. EYES: No scleral icterus. No injection or drainage. NECK: Supple, trachea midline. No JVD or lymphadenopathy. CARDIOVASCULAR: Regular rate and rhythm without murmurs, gallops, or rubs. RESPIRATORY: Breath sounds equal bilaterally. No accessory muscle use. GASTROINTESTINAL: Abdomen soft, non-tender, nondistended. MUSCULOSKELETAL: No cyanosis, or edema. Neuro: sedated and intubated. Assessment and Plan - Assessment and Plan Plan: Assessment: 52yF with severe ARDS and organ failure secondary to MDRO/ESBL/KPC Klebsiella and Veillonella bacteremia. remains very critically ill. does still appear to be volume overloaded combined with significant myocardial dysfunction. continue dopamine to prevent bradycardia. continue APRV mode of ventilation. continue forced diuresis. Family concerned about goals of care and if this level of care was consistent with patient's wishes. I think it is hernandez to get palliative care involved. however, it does appear that given her young age, we could successfully rehabilitate her to a functional status at least consistent with her prior functional status at her SNF, and possibly improved depending on her clinical course. Of course this would take months of rehabilitation, and will likely include trach/peg due to her severe ARDS and hypoxia. I would support aggressive measures at this point, unless it becomes clear that the patient has a strong opinion against such measures. Remains critically ill today with multiple ongoing life-threatening organ dysfunction. NEURO/PSYCH: Acute encephalopathy - secondary to hypercapnia, improving. Abnormal brain CT with 3 mm hyperdensity in central [place] Major depressive disorder NOS Chronic opioid use Encephalomalacia right cerebellum/left occipital lobe scheduled oxycodone 20mg po q4h Seroquel 50mg po q8h for delirium. Continue with versed and fentanyl for sedation and vent synchrony Monitor neuro status. Daily sedation vacation when clinically appropriate.. Followup CT brain - . Solitary 3 mm hyperdensity in the central [place] of uncertain significance. Differential considerations include a punctate calcification and acute hemorrhage RESP: Acute hypercapnic and hypoxemic respiratory failure Severe ARDS Acute asthma exacerbation Healthcare associated pneumonia WISAM/OHS Prior tobacco abuse Bilateral pleural effusions right 2.2 cm. Left 1.3 cm LMA was placed in the field by EVAC. Intubated in ED 03/18 Continue with vent support keep sats >92% On albuterol/ipratropium aerosols every 4 hours with albuterol aerosols every 2 hours as needed for dyspnea Weaned off epoprostenol 03/23. Flolan resumed 04/09 On PRVC RR 20, TV 550, IT:1.10, PEEP:15, FIO2: 70% On Solumederol 40mg IV daily, CXR 04/11 b/l lower lung zone airspace consolidation. Check CXR today CV: Hypertension Hyperlipidemia Chronic diastolic heart failure Paroxysmal atrial fibrillation on chronic anti-coagulation with warfarin Peripheral vascular disease/peripheral arterial disease Elevated troponin intermittent bradycardia Cor pulmonale biventricular dysfunction Monitor HR and BP keep MAP>65mmHg 2D echo 02/24/18ejection fraction 50%. Wall thickness upper limits of normal. Trace MR. Lactic acid cleared Continue atorvastatin 40 mg daily Doppler bilateral upper and lower extremities revealed no acute thrombus amlodipine 10mg po daily hydralazine 100mg po q8h, Clonidine patch Coreg 3.125 mg BID, GI: History of GERD Chronic pancreatitis insufficiency Hypoalbuminemia vital high-protein goal 45 cc an hour per GIs recommendation Famotidine for GI prophylaxis Docusate sodium/senna 1 tablet twice daily for bowel regimen Creon home medication 3 times daily FEN/RENAL: Acute kidney injury superimposed on CKD Chronic kidney disease stage III Acute severe intravascular volume overload with pulmonary edema [place] catheter was placed in the emergency department. Monitor renal function, I/O's, avoid nephrotoxins On Bumex 2mg TID, Zaroxolyn 5mg Q12 Renal is following- Dr. Fraser Cr: 1.90 from 1.96 ID: Acute healthcare associated pneumonia -ESBL positive Klebsiella pneumonia Veillonella species bacteremia Continue with abx per ID (Avycaz, Colistin nebs,) Monitor for signs of infections ( Fever, WBC) Blood cultures 2 03/18 Veillonella spp. Repeat 03/20 no growth to date Sputum, ESBL positive Klebsiella pneumonia 04/04 Pneumococcal urinary antigens, influenza a and B and chlamydia and mycoplasma all pending/negative HEME: Leukocytosis Chronic anemia/normocytic Monitor CBC daily. Follow trends. No indication for transfusion of blood products at this time. ENDO: Diabetes mellitus History of gout SSI q4h high scale Levemir 5 units SQ BID Holding glipizide 10 mg twice daily and insulin glargine/home medication Holding allopurinol 300 mg daily/home medication MSK: Elevated BMI Osteoporosis/osteoarthritis PT evaluate and treat PROPH: SCDs for DVT prophylaxis. Heparin SQ ACCESS: Peripheral IV's Doppler US B/l Upper and lower EXT negative for DVT on 03/19 Palliative care is following Per Dr. Major : Discussed at length with patient's brother at bedside previously. Explained to him the need for tracheostomy however patient needs to be weaned down further on mechanical ventilation prior to procedure. He tells me that patient would not want tracheostomy and mcc placement based on his previous discussions with her. He tells me that she was not doing well for the last 6 months prior to her current hospitalization. Discussed with patient's son on 04/06 regarding need for tracheostomy PEG tube placement and possible mcc placement. Also discussed the fact that patient has previously expressed to her brother that she would not want these procedures done. He tells me that he would be the final decision-maker and wishes to talk to his family before making any decisions and was reluctant to talk further with me. Prognosis guared patient is critically ill with severe ARDS, refractory hypoxemia/ resp failure and multiorgan injury. Discussed with patient's son yesterday and updated him oh her condition. Critical care time 30 minutes, exclusive of separately billed procedures.
[2018-04-13] MEDS: Insulin Detemir Inj 1,000 UNIT/10 ML Vial SQ SCH ×2 (08:30→20:02)
[2018-04-13] MEDS: Heparin - SQ 10,000 UNITS/ML Vial SQ SCH ×2 (08:30→20:03)
[2018-04-13] MEDS: Chlorhexidine 0.12% Oral Kit 15 ML UDC OROPHARYNG SCH ×2 (08:31→20:01)
[2018-04-13] MEDS: fentaNYL 10 mcg/mL Premix Drip 2,500 MCG/250 ML BAG IV.SIG PRN ×2 (08:49→18:04)
--- NOTE | 2018-04-13 09:16 | XR ---
EXAM DATE: 04/13/2018 8:54 AM EDT AGE/SEX: 52 years / Female INDICATIONS: Shortness of breath. CLINICAL DATA: This is the patient's subsequent encounter. Patient reports that signs and symptoms h ave been present for 1 month and indicates a pain score of Nonresponsive. MEDICAL/SURGICAL HISTORY: . Cardiovascular disease. Hypertension. Diabetes mellitus type II. None. COMPARISON: [facility], CHEST 1V SINGLE AP, 04/11/2018. . FINDINGS: Stable ETT and NGT. Persistent diffuse interstitial prominence with hazy opacities in the lower lung zones bilaterally. Cardiomediastinal contours are stable. Remainder of the exam is unchanged. CONCLUSION: 1. No significant interval change. 2. Stable diffuse interstitial prominence. 3. Stable bilateral lower lung zone airspace disease. Electronically signed by: Jonas Sweeney MD 04/13/2018 9:15 AM EDT
[2018-04-13] MEDS: Sod Chloride 0.9% Inj 1,000 ML OTHER SCH (10:17)
--- NOTE | 2018-04-13 11:25 | P.PNNP ---
Subjective Interval history: She remains intubated, unresponsive. Oxygen requirement has decreased, currently on 60% FiO2. Creatinine is stable, BUN continues to be very elevated. <Myrtle Levi - Last Filed: 04/13/18 11:16> Physical Exam Vital signs: Vital Signs 04/12/18 11:30 04/12/18 12:00 04/12/18 12:01 Temperature Pulse Rate 56 L 52 L 53 L Respiratory Rate 20 20 20 Blood Pressure 142/65 H Pulse Oximetry 99 100 99 04/12/18 12:19 04/12/18 12:30 04/12/18 13:00 Temperature Pulse Rate 52 L 53 L Respiratory Rate 20 20 20 Blood Pressure Pulse Oximetry 99 99 99 04/12/18 13:01 04/12/18 13:30 04/12/18 14:00 Temperature Pulse Rate 53 L 52 L 51 L Respiratory Rate 20 Blood Pressure 135/62 Pulse Oximetry 99 99 99 04/12/18 14:01 04/12/18 14:30 04/12/18 15:00 Temperature Pulse Rate 51 L 54 L 52 L Respiratory Rate 20 Blood Pressure 129/60 Pulse Oximetry 99 100 98 04/12/18 15:01 04/12/18 15:30 04/12/18 15:45 Temperature Pulse Rate 53 L 52 L Respiratory Rate 20 Blood Pressure 131/58 L Pulse Oximetry 98 99 99 04/12/18 16:00 04/12/18 16:30 04/12/18 17:00 Temperature Pulse Rate 52 L 52 L 54 L Respiratory Rate Blood Pressure 141/63 H Pulse Oximetry 99 99 99 04/12/18 17:01 04/12/18 17:32 04/12/18 20:00 Temperature 98.3 F Pulse Rate 55 L 55 L 54 L Respiratory Rate 20 Blood Pressure 139/63 149/67 H Pulse Oximetry 99 98 04/12/18 20:21 04/12/18 21:01 04/12/18 21:30 Temperature Pulse Rate 55 L 53 L 54 L Respiratory Rate 20 48 H 40 H Blood Pressure Pulse Oximetry 98 99 100 04/12/18 22:00 04/12/18 22:01 04/12/18 22:30 Temperature Pulse Rate 52 L 52 L 53 L Respiratory Rate 43 H 39 H 44 H Blood Pressure 127/58 L Pulse Oximetry 100 100 99 04/12/18 23:00 04/12/18 23:01 04/12/18 23:30 Temperature Pulse Rate 57 L 54 L 54 L Respiratory Rate 36 H 43 H 38 H Blood Pressure 124/60 Pulse Oximetry 100 100 99 04/13/18 00:00 04/13/18 00:01 04/13/18 00:03 Temperature 98.6 F Pulse Rate 55 L 54 L Respiratory Rate 48 H 43 H 20 Blood Pressure 115/55 L 115/55 L Pulse Oximetry 99 99 98 04/13/18 00:30 04/13/18 01:00 04/13/18 01:01 Temperature Pulse Rate 53 L 53 L 54 L Respiratory Rate 47 H 38 H 43 H Blood Pressure 118/58 L Pulse Oximetry 97 97 97 04/13/18 01:30 04/13/18 02:00 04/13/18 02:01 Temperature Pulse Rate 53 L 54 L 54 L Respiratory Rate 47 H 51 H 50 H Blood Pressure 119/56 L Pulse Oximetry 98 99 99 04/13/18 02:30 04/13/18 03:00 04/13/18 03:01 Temperature Pulse Rate 52 L 52 L 52 L Respiratory Rate 45 H 41 H 43 H Blood Pressure 129/60 Pulse Oximetry 98 98 98 04/13/18 03:30 04/13/18 03:57 04/13/18 04:00 Temperature 98.4 F Pulse Rate 52 L 51 L Respiratory Rate 42 H 24 33 H Blood Pressure 116/57 L Pulse Oximetry 98 98 97 04/13/18 04:01 04/13/18 04:30 04/13/18 05:00 Temperature Pulse Rate 64 54 L 59 L Respiratory Rate 29 H 44 H 40 H Blood Pressure 116/57 L Pulse Oximetry 98 98 97 04/13/18 05:01 04/13/18 05:30 04/13/18 06:00 Temperature Pulse Rate 59 L 56 L 59 L Respiratory Rate 52 H 43 H 49 H Blood Pressure 108/53 L Pulse Oximetry 97 98 98 04/13/18 06:01 04/13/18 06:30 04/13/18 07:00 Temperature Pulse Rate 59 L 56 L 56 L Respiratory Rate 44 H 45 H 46 H Blood Pressure 120/57 L Pulse Oximetry 98 98 98 04/13/18 07:01 04/13/18 07:30 08/13/18 07:50 Temperature Pulse Rate 56 L 53 L 62 Respiratory Rate 39 H 42 H 20 Blood Pressure 113/54 L Pulse Oximetry 97 97 04/13/18 07:51 04/13/18 08:00 04/13/18 08:01 Temperature 99.2 F Pulse Rate 54 L 54 L Respiratory Rate 20 53 H 46 H Blood Pressure 133/58 L Pulse Oximetry 97 97 97 04/13/18 08:30 04/13/18 09:00 04/13/18 09:01 Temperature Pulse Rate 57 L 61 59 L Respiratory Rate 43 H 42 H 50 H Blood Pressure 128/66 Pulse Oximetry 94 L 95 95 04/13/18 09:30 04/13/18 10:00 Temperature Pulse Rate 64 58 L Respiratory Rate 42 H Blood Pressure Pulse Oximetry 91 L Intake & Output 04/12/18 04/13/18 04/13/18 18:59 06:59 18:59 Intake Total 1114.1 / 1114.1 1652 / 1652 250 / 250 Output Total 1600 / 1600 1900 / 1900 Balance -485.9 / -485.9 -248 / -248 250 / 250 Weight 127 kg Intake: IV 574.1 / 574.1 600 / 600 250 / 250 Versed Inj 50 mg In 50 ml @ 2 84.1 / 84.1 150 / 150 MG/HR 2 mls/hr IV.CONT TITRATE PRN Rx#:[id number] Avycaz Inj 1.25 GM In NS Inj 50 50 / 50 100 / 100 ML @ 25 mls/hr IV.SIG Q8H [facility] Rx#:[id number] fentaNYL 10 mcg/mL Premix Drip 240 / 240 250 / 250 250 / 250 2,500 mcg In 250 ml @ 50 MCG/HR 5 mls/hr IV.SIG TITRATE PRN Rx #:[id number] Flolan (30,000 ng/mL) Neb 37.5 200 / 200 100 / 100 ML In NS Inj 62.5 ML @ As Directed NEB Q8H [facility] Rx#: [id number] Tube Feeding 540 / 540 1052 / 1052 Output: Stool 100 / 100 Urine Amount (Catheter) 1600 / 1600 1800 / 1800 Indwelling Urethral Catheter 1600 / 1600 1800 / 1800 Other: Date of Last Bowel Movement 04/12/18 04/13/18 04/13/18 - Constitutional no acute distress, morbidly obese Comments: Obese AAF, intubated, unresponsive. Edematous, facial edema and anasarca. - Routine HEENT Exam Head: Present: normocephalic Eye: Present: periorbital swelling - Routine Neck Exam Present: supple, full ROM - Routine Respiratory Exam Present: patient mechanically ventilated, rales, distant breath sounds - Routine Cardiovascular Exam Present: RRR, S1, S2 - Routine Abdominal Exam Present: soft, normoactive bowel sounds - Routine Extremities Exam Present: edema, pulses intact - Routine Skin Exam Present: intact, dry, warm - Detailed Neurological Exam: Coma Scale Eye Opening: None Verbal Response: None Motor Response: Localizing Gianni Coma Scale Total: 7 - Routine Psychiatric Exam Present: unable to assess - Urinary Catheter Management Indwelling Urethral Catheter Cath placed during this visit: yes Reason for continuing: Hourly intake/output Insertion date: 03/18/18 Insertion time: 21:00 <Myrtle Levi - Last Filed: 04/13/18 11:16> Vital signs: Vital Signs 04/14/18 10:00 04/14/18 11:24 04/14/18 12:00 Temperature 98.6 F Pulse Rate 74 69 Respiratory Rate 25 H 23 Blood Pressure 126/60 Pulse Oximetry 87 L 85 L 04/14/18 14:00 04/14/18 16:00 04/14/18 16:30 Temperature 99.1 F Pulse Rate 63 61 Respiratory Rate 36 H 20 Blood Pressure 124/60 Pulse Oximetry 99 99 04/14/18 18:00 04/14/18 20:00 04/14/18 20:16 Temperature 98.2 F Pulse Rate 59 L 57 L 64 Respiratory Rate 20 21 Blood Pressure 136/60 Pulse Oximetry 98 04/14/18 20:20 04/14/18 20:59 04/14/18 22:00 Temperature Pulse Rate 60 54 L Respiratory Rate 21 20 Blood Pressure Pulse Oximetry 99 04/14/18 23:55 04/14/18 23:57 04/15/18 00:00 Temperature 98.6 F Pulse Rate 69 66 Respiratory Rate 20 20 20 Blood Pressure 122/82 Pulse Oximetry 94 L 95 04/15/18 02:00 04/15/18 03:25 04/15/18 04:00 Temperature 98.6 F Pulse Rate 59 L 79 71 Respiratory Rate 26 H 20 Blood Pressure 131/58 L Pulse Oximetry 93 L 04/15/18 04:10 04/15/18 06:00 04/15/18 07:28 Temperature Pulse Rate 70 Respiratory Rate 20 26 H Blood Pressure Pulse Oximetry 95 Intake & Output 04/14/18 04/15/18 04/15/18 18:59 06:59 18:59 Intake Total 1324.1 / 1324.1 1615.0 / 1615.0 34.1 / 34.1 Output Total 1875 / 1875 2049 / 2049 Balance -550.9 / -550.9 -435.0 / -435.0 34.1 / 34.1 Weight 125 kg Intake: IV 684.1 / 684.1 975.0 / 975.0 34.1 / 34.1 Versed Inj 50 mg In 50 ml @ 2 134.1 / 134.1 50.0 / 50.0 34.1 / 34.1 MG/HR 2 mls/hr IV.CONT TITRATE PRN Rx#:[id number] Avycaz Inj 2.5 GM In NS Inj 50 100 / 100 50 / 50 ML @ 25 mls/hr IV.SIG Q8H [facility] Rx#:[id number] Vancomycin Inj 2,500 MG In NS 525 / 525 Inj 500 ML @ 250 mls/hr IV.SIG ONCE ONE Rx#:[id number] fentaNYL 10 mcg/mL Premix Drip 250 / 250 250 / 250 2,500 mcg In 250 ml @ 50 MCG/HR 5 mls/hr IV.SIG TITRATE PRN Rx #:[id number] Flolan (30,000 ng/mL) Neb 37.5 200 / 200 100 / 100 ML In NS Inj 62.5 ML @ As Directed NEB Q8H [facility] Rx#: [id number] Oral 0 / 0 Tube Feeding 520 / 520 540 / 540 Water Bolus Amount 120 / 120 100 / 100 Output: Stool 75 / 75 300 / 300 Urine Amount (Catheter) 1800 / 1800 1750 / 1750 Indwelling Urethral Catheter 1800 / 1800 1750 / 1750 Other: Date of Last Bowel Movement 04/14/18 04/15/18 - Urinary Catheter Management Indwelling Urethral Catheter Cath placed during this visit: no <Alverto Fraser - Last Filed: 04/15/18 08:59> Assessment and Plan - Assessment (1) Acute renal failure superimposed on stage 3 chronic kidney disease Code(s): N17.9 - Acute kidney failure, unspecified; N18.3 - Chronic kidney disease, stage 3 (moderate) Status: Acute Plan: Her baseline creatinine runs 1.6-2, GFR 44. YOU most likely due to cardiac arrest and decreased renal perfusion. Renal function continues to decline. High and disproportionately elevated BUN is getting worse. On Bumex TID 2 mg. She has negative fluid balance. Metolazone on hold She is non oliguric and responding to diuretics. Avoid nephrotoxic agents,dose appropriate to renal status. Minimize non essential medications. She may need dialysis if her renal function further declines. Overall prognosis is very poor. (2) Acute respiratory failure with hypoxemia Code(s): J96.01 - Acute respiratory failure with hypoxia Status: Acute Plan: ARDS. On 60% FiO2. Poor prognosis. Management per critical care service. (3) Diabetes mellitus type 2 in obese Code(s): E11.69 - Type 2 diabetes mellitus with other specified complication; E66.9 - Obesity, unspecified Status: Chronic Plan: Maintain glucose 140-180mg/dL while hospitalized. Use insulin if needed. (4) Hypertension Code(s): I10 - Essential (primary) hypertension Status: Chronic Plan: Monitor BP. Continue medications as ordered. (5) HCAP (healthcare-associated pneumonia) Code(s): J18.9 - Pneumonia, unspecified organism Status: Acute Plan: ID is following, managing antibiotics. Currently on Avycaz and Meropenem. s/p bronch with cultures reviewed. (6) Diastolic heart failure Code(s): I50.30 - Unspecified diastolic (congestive) heart failure Status: Acute Plan: Monitor fluid status. Continue diuresis. She had an echo previous admission, EF 50%. <Myrtle Levi - Last Filed: 04/13/18 11:16> - Assessment (1) Acute renal failure superimposed on stage 3 chronic kidney disease Code(s): N17.9 - Acute kidney failure, unspecified; N18.3 - Chronic kidney disease, stage 3 (moderate) Status: Acute (2) Acute respiratory failure with hypoxemia Code(s): J96.01 - Acute respiratory failure with hypoxia Status: Acute (3) Diabetes mellitus type 2 in obese Code(s): E11.69 - Type 2 diabetes mellitus with other specified complication; E66.9 - Obesity, unspecified Status: Chronic (4) Hypertension Code(s): I10 - Essential (primary) hypertension Status: Chronic (5) HCAP (healthcare-associated pneumonia) Code(s): J18.9 - Pneumonia, unspecified organism Status: Acute (6) Diastolic heart failure Code(s): I50.30 - Unspecified diastolic (congestive) heart failure Status: Acute - Attending Attestation patient was seen and examined. Agree with above assessment and plan. <Alverto Fraser - Last Filed: 04/15/18 08:59>
[2018-04-13] MEDS ORDERED: Potassium Chloride 25 MEQ Effervescent Tablet PO ONE (14:30)
--- NOTE | 2018-04-13 19:17 | P.PNPAL ---
Reason for Visit Reason for visit: a. To assist with evaluation and management of symptoms including:dyspnea, pain. b. To assist medical decision maker(s) with: better understanding of current medical conditions; weighing benefits/burdens of medical treatment options; making medical treatment decisions. Subjective Subjective/Interval History: Discussed case with upholstery covers inspector. Patient was felt to be near on Friday as sats were down into the 70s on 100% Fi02 and 15 of PEEP. He discussed code status again with son -- Rocael -- and again the decision was to continue with aggressive care. Patient continues to struggle. Though FI02 has come down to 65%, peep remains high. She is still not meeting vent settings that would allow for trach. Nurses report she absolutely requires the significant sedation -- on 250 mcg/hr of fentanyl and 10 mg/hr of midazolam -- as there is severe vent asynchrony during sedation vacations with sats dropping quickly. Patient remains minimally responsive. At time of my visit , she is not withdrawing to noxious stimuli. . Family/Friend Interactions: Was able to meet with son (Rocael) and two brothers (Rishabh and Magdaleno) in the consultation room. We met for about 40 minutes. The brothers had not had an opportunity to speak to doctor. I reviewed th circumstances that brought the patient into the hospital, her "code" event, and the hospital course since. I reviewed important diagnostic tests. We discussed the patient's lack of significant response to our most aggressive care. We discussed her high likelihood of during this hospitalization. We discussed options including code status. Patient's brothers sees like their highest priority was preventing needless suffereing. Rocael, who as spokesperson for the children, is the main medical decision maker very much wants to continue aggressive care. He sees the FI02 requirement dropping from 100% to 65% as evidence that the patient still wants to fight. . Advance Directives Living Will: Never completed Health Care Surrogate: Never completed Durable Power of Education Counselor: Never completed Health Care Surrogate Name and Number: family David spokesperson [phone] Documented care wishes:: No written advanced directives. Objective Vital Signs: Vital Signs 04/12/18 20:00 04/12/18 20:21 04/12/18 21:01 Temperature 98.3 F Pulse Rate 54 L 55 L 53 L Respiratory Rate 20 20 48 H Blood Pressure 149/67 H Pulse Oximetry 98 98 99 04/12/18 21:30 04/12/18 22:00 04/12/18 22:01 Temperature Pulse Rate 54 L 52 L 52 L Respiratory Rate 40 H 43 H 39 H Blood Pressure 127/58 L Pulse Oximetry 100 100 100 04/12/18 22:30 04/12/18 23:00 04/12/18 23:01 Temperature Pulse Rate 53 L 57 L 54 L Respiratory Rate 44 H 36 H 43 H Blood Pressure 124/60 Pulse Oximetry 99 100 100 04/12/18 23:30 04/13/18 00:00 04/13/18 00:01 Temperature 98.6 F Pulse Rate 54 L 55 L 54 L Respiratory Rate 38 H 48 H 43 H Blood Pressure 115/55 L 115/55 L Pulse Oximetry 99 99 99 04/13/18 00:03 04/13/18 00:30 04/13/18 01:00 Temperature Pulse Rate 53 L 53 L Respiratory Rate 20 47 H 38 H Blood Pressure Pulse Oximetry 98 97 97 04/13/18 01:01 04/13/18 01:30 04/13/18 02:00 Temperature Pulse Rate 54 L 53 L 54 L Respiratory Rate 43 H 47 H 51 H Blood Pressure 118/58 L Pulse Oximetry 97 98 99 04/13/18 02:01 04/13/18 02:30 04/13/18 03:00 Temperature Pulse Rate 54 L 52 L 52 L Respiratory Rate 50 H 45 H 41 H Blood Pressure 119/56 L Pulse Oximetry 99 98 98 04/13/18 03:01 04/13/18 03:30 04/13/18 03:57 Temperature Pulse Rate 52 L 52 L Respiratory Rate 43 H 42 H 24 Blood Pressure 129/60 Pulse Oximetry 98 98 98 04/13/18 04:00 04/13/18 04:01 04/13/18 04:30 Temperature 98.4 F Pulse Rate 51 L 64 54 L Respiratory Rate 33 H 29 H 44 H Blood Pressure 116/57 L 116/57 L Pulse Oximetry 97 98 98 04/13/18 05:00 04/13/18 05:01 04/13/18 05:30 Temperature Pulse Rate 59 L 59 L 56 L Respiratory Rate 40 H 52 H 43 H Blood Pressure 108/53 L Pulse Oximetry 97 97 98 04/13/18 06:00 04/13/18 06:01 04/13/18 06:30 Temperature Pulse Rate 59 L 59 L 56 L Respiratory Rate 49 H 44 H 45 H Blood Pressure 120/57 L Pulse Oximetry 98 98 98 04/13/18 07:00 04/13/18 07:01 04/13/18 07:30 Temperature Pulse Rate 56 L 56 L 53 L Respiratory Rate 46 H 39 H 42 H Blood Pressure 113/54 L Pulse Oximetry 98 97 97 04/13/18 07:50 04/13/18 07:51 04/13/18 08:00 Temperature 99.2 F Pulse Rate 62 54 L Respiratory Rate 20 20 53 H Blood Pressure Pulse Oximetry 97 97 04/13/18 08:01 04/13/18 08:30 04/13/18 09:00 Temperature Pulse Rate 54 L 57 L 61 Respiratory Rate 46 H 43 H 42 H Blood Pressure 133/58 L Pulse Oximetry 97 94 L 95 04/13/18 09:01 04/13/18 09:30 04/13/18 10:00 Temperature Pulse Rate 59 L 64 58 L Respiratory Rate 50 H 42 H 45 H Blood Pressure 128/66 Pulse Oximetry 95 91 L 94 L 04/13/18 10:01 04/13/18 10:30 04/13/18 11:00 Temperature Pulse Rate 58 L 53 L 56 L Respiratory Rate 43 H 53 H 52 H Blood Pressure 112/55 L 139/59 L Pulse Oximetry 94 L 94 L 94 L 04/13/18 11:30 04/13/18 11:35 04/13/18 12:00 Temperature 98.8 F Pulse Rate 56 L 56 L Respiratory Rate 55 H 20 54 H Blood Pressure Pulse Oximetry 94 L 95 91 L 04/13/18 12:01 04/13/18 12:30 04/13/18 13:00 Temperature Pulse Rate 56 L 53 L 55 L Respiratory Rate 55 H 47 H 49 H Blood Pressure 133/60 Pulse Oximetry 92 L 93 L 94 L 04/13/18 13:01 04/13/18 13:30 04/13/18 14:00 Temperature Pulse Rate 55 L 54 L 55 L Respiratory Rate 51 H 41 H 45 H Blood Pressure 137/63 Pulse Oximetry 94 L 95 95 04/13/18 14:01 04/13/18 14:30 04/13/18 15:00 Temperature Pulse Rate 55 L 58 L 65 Respiratory Rate 45 H 58 H 35 H Blood Pressure 142/63 H Pulse Oximetry 95 94 L 95 04/13/18 15:01 04/13/18 15:25 04/13/18 16:00 Temperature 97.8 F Pulse Rate 60 84 Respiratory Rate 46 H 20 Blood Pressure 125/61 Pulse Oximetry 95 96 04/13/18 18:00 Temperature Pulse Rate 57 L Respiratory Rate Blood Pressure Pulse Oximetry Intake & Output 04/12/18 04/13/18 04/13/18 18:59 06:59 18:59 Intake Total 1114.1 / 1114.1 1652 / 1652 800 / 800 Output Total 1600 / 1600 1900 / 1900 Balance -485.9 / -485.9 -248 / -248 800 / 800 Weight 127 kg Intake: IV 574.1 / 574.1 600 / 600 800 / 800 Versed Inj 50 mg In 50 ml @ 2 84.1 / 84.1 150 / 150 100 / 100 MG/HR 2 mls/hr IV.CONT TITRATE PRN Rx#:[id number] Avycaz Inj 1.25 GM In NS Inj 50 50 / 50 100 / 100 100 / 100 ML @ 25 mls/hr IV.SIG Q8H ON LICENSE OF [facility] Rx#:[id number] fentaNYL 10 mcg/mL Premix Drip 240 / 240 250 / 250 500 / 500 2,500 mcg In 250 ml @ 50 MCG/HR 5 mls/hr IV.SIG TITRATE PRN Rx #:[id number] Flolan (30,000 ng/mL) Neb 37.5 200 / 200 100 / 100 100 / 100 ML In NS Inj 62.5 ML @ As Directed NEB Q8H ON LICENSE OF [facility] Rx#: [id number] Tube Feeding 540 / 540 1052 / 1052 Output: Stool 100 / 100 Urine Amount (Catheter) 1600 / 1600 1800 / 1800 Indwelling Urethral Catheter 1600 / 1600 1800 / 1800 Other: Date of Last Bowel Movement 04/12/18 04/13/18 04/13/18 Physical Exam: CONSTITUTIONAL/GENERAL: This is an obese, critically ill patient intubated, mechanically ventilated, sedated, and an MICU bed. TUBES/LINES/DRAINS: ETT, OG, PIV, bilateral soft wrist restraints, [place], rectal tube, SCDs SKIN: No jaundice, rashes, or lesions. No wounds seen anteriorly. Skin temperature appropriate. Not diaphoretic. EYES: Does not open eyes for me. Pupils equal when I force lids open. ENT: Unable to assess hearing. Nose without bleeding or purulent drainage. CARDIOVASCULAR: Frequent irregular beats. RESPIRATORY/CHEST: Diminished bibasilar with no appreciable rales. Scattered rhonchi bilaterally. GASTROINTESTINAL: Abdomen obese, soft, non-tender, nondistended OG in place. GENITOURINARY: Without palpable bladder distension. [place] catheter in place. 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 Legs revealed 2+ pitting edema bilateral lower extremities. NEUROLOGICAL:Sedated. PSYCHIATRIC: Sedated. Diagnostic Tests Laboratory: Laboratory Results - last 72 hr 04/10/18 04/10/18 04/11/18 19:54 23:31 03:46 WBC RBC Hgb Hct MCV MCH MCHC RDW Plt Count MPV Neut % (Auto) Lymph % (Auto) Jones % (Auto) Eos % (Auto) Baso % (Auto) Neut # (Auto) Lymph # (Auto) Jones # (Auto) Eos # (Auto) Baso # (Auto) WBC Differential Differential Comment Hematology Comments Puncture Site Patient Temperature O2 Saturation ABG pH ABG pCO2 ABG pO2 ABG HCO3 ABG O2 Content ABG Base Excess ABG Methemoglobin Trevor Test Hemoglobin Carboxyhemoglobin O2 Delivery Device Vent Setting Inspired O2 Critical Value Sodium Potassium Chloride Carbon Dioxide Anion Gap BUN Creatinine Estimated GFR POC Glucose 312 H 245 H 193 H Random Glucose Calcium Total Bilirubin AST ALT Alkaline Phosphatase Total Protein Albumin 04/11/18 04/11/18 04/11/18 04:16 04:16 06:23 WBC 13.7 H RBC 3.13 L Hgb 8.4 L Hct 25.2 L MCV 80.4 MCH 26.7 L MCHC 33.2 RDW 24.0 H Plt Count 164 MPV 11.0 Neut % (Auto) 83.2 H Lymph % (Auto) 6.8 L Jones % (Auto) 9.3 H Eos % (Auto) 0.4 Baso % (Auto) 0.3 Neut # (Auto) 11.4 H Lymph # (Auto) 0.9 L Jones # (Auto) 1.3 H Eos # (Auto) 0.1 Baso # (Auto) 0.0 WBC Differential . Differential Comment Auto diff final Hematology Comments Puncture Site Right radial Patient Temperature 98.6 O2 Saturation 87 L* ABG pH 7.45 H ABG pCO2 47 H ABG pO2 57 L* ABG HCO3 32 H ABG O2 Content 10.2 L ABG Base Excess 7.5 H ABG Methemoglobin 1.4 Trevor Test Present Hemoglobin 8.3 L Carboxyhemoglobin 1.9 O2 Delivery Device Ventilator Vent Setting Prvc/ ac Inspired O2 100 Critical Value Yes Sodium 139 Potassium 3.5 Chloride 95 L Carbon Dioxide 32.7 H Anion Gap 11 BUN 146 H Creatinine 1.83 H Estimated GFR POC Glucose Random Glucose 162 H Calcium 9.8 Total Bilirubin 0.6 AST 32 ALT 52 Alkaline Phosphatase 93 Total Protein 7.1 Albumin 2.8 L 04/11/18 04/11/18 04/11/18 16:42 20:54 23:34 WBC RBC Hgb Hct MCV MCH MCHC RDW Plt Count MPV Neut % (Auto) Lymph % (Auto) Jones % (Auto) Eos % (Auto) Baso % (Auto) Neut # (Auto) Lymph # (Auto) Jones # (Auto) Eos # (Auto) Baso # (Auto) WBC Differential Differential Comment Hematology Comments Puncture Site Patient Temperature O2 Saturation ABG pH ABG pCO2 ABG pO2 ABG HCO3 ABG O2 Content ABG Base Excess ABG Methemoglobin Trevor Test Hemoglobin Carboxyhemoglobin O2 Delivery Device Vent Setting Inspired O2 Critical Value Sodium Potassium Chloride Carbon Dioxide Anion Gap BUN Creatinine Estimated GFR POC Glucose 260 H 278 H 267 H Random Glucose Calcium Total Bilirubin AST ALT Alkaline Phosphatase Total Protein Albumin 04/12/18 04/12/18 04/12/18 03:17 04:02 04:02 WBC 10.8 RBC 2.68 L Hgb 7.3 L Hct 21.7 L MCV 81.1 MCH 27.1 MCHC 33.5 RDW 24.6 H Plt Count 160 MPV 11.2 H Neut % (Auto) 85.2 H Lymph % (Auto) 6.8 L Jones % (Auto) 7.4 Eos % (Auto) 0.3 Baso % (Auto) 0.3 Neut # (Auto) 9.2 H Lymph # (Auto) 0.7 L Jones # (Auto) 0.8 Eos # (Auto) 0.0 Baso # (Auto) 0.0 WBC Differential . Differential Comment Auto diff final Hematology Comments Puncture Site Patient Temperature O2 Saturation ABG pH ABG pCO2 ABG pO2 ABG HCO3 ABG O2 Content ABG Base Excess ABG Methemoglobin Trevor Test Hemoglobin Carboxyhemoglobin O2 Delivery Device Vent Setting Inspired O2 Critical Value Sodium 140 Potassium 3.5 Chloride 96 L Carbon Dioxide 30.2 Anion Gap 14 BUN 162 H Creatinine 1.96 H Estimated GFR POC Glucose 216 H Random Glucose 184 H Calcium 9.5 Total Bilirubin 0.7 AST 30 ALT 42 Alkaline Phosphatase 78 Total Protein 6.3 L D Albumin 2.3 L 04/12/18 04/12/18 04/12/18 07:32 12:00 16:27 WBC RBC Hgb Hct MCV MCH MCHC RDW Plt Count MPV Neut % (Auto) Lymph % (Auto) Jones % (Auto) Eos % (Auto) Baso % (Auto) Neut # (Auto) Lymph # (Auto) Jones # (Auto) Eos # (Auto) Baso # (Auto) WBC Differential Differential Comment Hematology Comments Puncture Site Patient Temperature O2 Saturation ABG pH ABG pCO2 ABG pO2 ABG HCO3 ABG O2 Content ABG Base Excess ABG Methemoglobin Trevor Test Hemoglobin Carboxyhemoglobin O2 Delivery Device Vent Setting Inspired O2 Critical Value Sodium Potassium Chloride Carbon Dioxide Anion Gap BUN Creatinine Estimated GFR POC Glucose 160 H 195 H 293 H Random Glucose Calcium Total Bilirubin AST ALT Alkaline Phosphatase Total Protein Albumin 04/12/18 04/13/18 04/13/18 19:44 01:17 04:05 WBC 11.7 H RBC 2.86 L Hgb 7.7 L Hct 22.9 L MCV 79.9 L MCH 26.9 L MCHC 33.6 RDW 24.2 H Plt Count 153 MPV 11.2 H Neut % (Auto) 86.9 H Lymph % (Auto) 7.7 L Jones % (Auto) 4.6 Eos % (Auto) 0.2 Baso % (Auto) 0.6 Neut # (Auto) 10.2 H Lymph # (Auto) 0.9 L Jones # (Auto) 0.5 Eos # (Auto) 0.0 Baso # (Auto) 0.1 WBC Differential . Differential Comment Auto diff final Hematology Comments Puncture Site Patient Temperature O2 Saturation ABG pH ABG pCO2 ABG pO2 ABG HCO3 ABG O2 Content ABG Base Excess ABG Methemoglobin Trevor Test Hemoglobin Carboxyhemoglobin O2 Delivery Device Vent Setting Inspired O2 Critical Value Sodium Potassium Chloride Carbon Dioxide Anion Gap BUN Creatinine Estimated GFR POC Glucose 301 H 303 H Random Glucose Calcium Total Bilirubin AST ALT Alkaline Phosphatase Total Protein Albumin 04/13/18 04/13/18 04/13/18 04:05 05:22 08:32 WBC RBC Hgb Hct MCV MCH MCHC RDW Plt Count MPV Neut % (Auto) Lymph % (Auto) Jones % (Auto) Eos % (Auto) Baso % (Auto) Neut # (Auto) Lymph # (Auto) Jones # (Auto) Eos # (Auto) Baso # (Auto) WBC Differential Differential Comment Hematology Comments Puncture Site Patient Temperature O2 Saturation ABG pH ABG pCO2 ABG pO2 ABG HCO3 ABG O2 Content ABG Base Excess ABG Methemoglobin Trevor Test Hemoglobin Carboxyhemoglobin O2 Delivery Device Vent Setting Inspired O2 Critical Value Sodium 141 Potassium 3.4 L Chloride 97 L Carbon Dioxide 32.3 H Anion Gap 12 BUN 165 H Creatinine 1.90 H Estimated GFR 33 L POC Glucose 283 H 279 H Random Glucose 280 H Calcium 9.8 Total Bilirubin 0.6 AST 33 ALT 41 Alkaline Phosphatase 80 Total Protein 6.5 Albumin 2.4 L 04/13/18 04/13/18 11:25 15:01 WBC RBC Hgb Hct MCV MCH MCHC RDW Plt Count MPV Neut % (Auto) Lymph % (Auto) Jones % (Auto) Eos % (Auto) Baso % (Auto) Neut # (Auto) Lymph # (Auto) Jones # (Auto) Eos # (Auto) Baso # (Auto) WBC Differential Differential Comment Hematology Comments Puncture Site Patient Temperature O2 Saturation ABG pH ABG pCO2 ABG pO2 ABG HCO3 ABG O2 Content ABG Base Excess ABG Methemoglobin Trevor Test Hemoglobin Carboxyhemoglobin O2 Delivery Device Vent Setting Inspired O2 Critical Value Sodium Potassium Chloride Carbon Dioxide Anion Gap BUN Creatinine Estimated GFR POC Glucose 268 H 271 H Random Glucose Calcium Total Bilirubin AST ALT Alkaline Phosphatase Total Protein Albumin Result Diagrams: 04/13/18 04:05 04/13/18 04:05 Microbiology: Microbiology 04/10/18 13:05 Gram Stain - Final Sputum - Endotracheal Sputum Culture - Final Heavy growth normal respiratory jennifer Imaging: Chest X-Ray 03/18/18 17:52 CONCLUSION: 1. ET tube in good position. 2. Increasing patchy areas of consolidation in both lower lungs. Chest CT 03/18/18 18:46 CONCLUSION: 1. Bilateral multi segmental consolidation in the mid and lower lungs and small bilateral pleural effusions. 2. Several enlarged middle mediastinal lymph nodes. Head CT 03/18/18 18:46 CONCLUSION: 1. Solitary 3 mm hyperdensity in the central [place] of uncertain significance. Differential considerations include a punctate calcification and acute hemorrhage. 2. No acute findings in the supratentorial brain. Head MRI 03/19/18 00:00 CONCLUSION: 1. No evidence of brainstem hemorrhage. 2. Small foci of encephalomalacia in the left occipital lobe and right cerebellum 3. No evidence of acute infarct, hemorrhage, mass or edema. 4. No evidence of enhancing intra-axial or extra-axial lesions. Venous Doppler Study 03/19/18 00:00 CONCLUSION: The study is negative for bilateral upper extremity deep venous thrombosis. Venous Doppler Study 03/19/18 00:00 CONCLUSION: The study is negative for bilateral lower extremity deep venous thrombosis. Chest X-Ray 03/19/18 07:33 CONCLUSION: 1. Lines and tubes as detailed above without pneumothorax. 2. Radiographic pattern most consistent with pulmonary edema. This is unchanged. Chest X-Ray 03/20/18 06:00 CONCLUSION: No significant change. Chest X-Ray 03/21/18 05:14 CONCLUSION: Decreased bilateral pulmonary opacity suggesting decreased pulmonary edema. Abdomen X-Ray 03/22/18 00:00 CONCLUSION: Mild ileus. NG tip in stomach. Foot X-Ray 03/22/18 00:00 CONCLUSION: No acute bony destructive change. Previous amputations as above. Fairly marked soft tissue swelling of the forefoot. Chest X-Ray 03/22/18 06:00 CONCLUSION: Increased left mid lung pulmonary consolidation versus atelectasis. Chest X-Ray 03/23/18 06:00 CONCLUSION: Worsening patchy airspace disease, particularly in the left hemithorax. Life support tubes are stable in position Chest X-Ray 03/24/18 00:00 CONCLUSION: Mild interval improvement in bilateral pulmonary infiltrates. Chest X-Ray 03/24/18 06:00 CONCLUSION: Worsening bilateral pulmonary infiltrates, particularly in the right upper lobe Chest X-Ray 03/25/18 00:00 CONCLUSION: 1. No significant change in the bilateral pulmonary infiltrates most characteristic of pulmonary edema. Chest X-Ray 03/25/18 06:00 CONCLUSION: 1. Stable biapical airspace disease with left basilar consolidation and possible effusion. 2. Stable position of life-support tubes. Abdomen X-Ray 03/26/18 00:00 CONCLUSION: Abdomen/Pelvis CT 03/28/18 00:00 CONCLUSION: 1. Minimal increase in the trace bilateral pleural effusions with compressive atelectasis in both bases. 2. Gallstones in a benign-appearing gallbladder 3. I don't see evidence for colitis. 4. I don't see inflammatory changes in the abdomen. Chest CT 03/28/18 00:00 CONCLUSION: 1. Biventricular cardiomegaly with coarse interstitial changes in both lungs. A component of this could be failure 2. Trace bilateral pleural effusions larger on the right.. These have decreased slightly in the interval. Foot MRI 03/28/18 00:00 CONCLUSION: 1. Difficult exam to interpret because of extensive soft tissue swelling. No obvious osteomyelitis. 2. Nuclear medicine tagged white cell study may help. Chest X-Ray 03/30/18 07:48 CONCLUSION: Improving upper lobe aeration with decreasing consolidation and congestion. Stable supportive devices. Chest X-Ray 04/01/18 05:00 CONCLUSION: Bilateral airspace opacities which are increased in the right lung base. Chest X-Ray 04/04/18 05:00 CONCLUSION: Persistent partially consolidated infiltrates the mid and lower lungs bilaterally. Chest X-Ray 04/05/18 16:00 CONCLUSION: Bilateral airspace disease has worsened slightly since April 04. Endotracheal tube, nasogastric tube and right central line unchanged. Chest X-Ray 04/08/18 05:00 CONCLUSION: No interval change. Chest X-Ray 04/10/18 03:56 CONCLUSION: Stable chest x-ray with bilateral lower lung zone airspace consolidation. Chest X-Ray 04/11/18 05:17 CONCLUSION: Stable chest x-ray with diffuse bilateral airspace consolidation that is more severe in the lower lung zones. Chest X-Ray 04/13/18 08:26 CONCLUSION: 1. No significant interval change. 2. Stable diffuse interstitial prominence. 3. Stable bilateral lower lung zone airspace disease. Procedures: * Right IJ central line * Intubated . Assessment and Plan - Disease Oriented Problem List (1) ARDS (adult respiratory distress syndrome) (2) Acute respiratory failure with hypoxemia (3) HCAP (healthcare-associated pneumonia) Comment: Multi drug resistant -- Klebsiella ESBL + (4) Diabetes mellitus type 2 in obese (5) Atrial fibrillation (6) Chronic kidney disease, stage III (moderate) (7) Hypertension (8) Hypoglycemia due to type 2 diabetes mellitus (9) Lactic acid acidosis (10) Super obesity (11) WISAM (obstructive sleep apnea) (12) Asthma (13) H/O osteomyelitis (14) Diastolic heart failure (15) Diabetes (16) Acute renal failure superimposed on stage 3 chronic kidney disease - Symptom Scale (1) Pain 0-10 Scale: Unable to quantify (2) Dyspnea 0-10 Scale: Unable to quantify (3) Encephalopathy 0-10 Scale: Unable to quantify Pertinent Non-Medical Issues: Psychosocial: Never . Supported by her son, Rocael. Has 4 children ( Rocael, Jose Juan, Manny and Shobha). Spiritual: Mandaeism. Legal: Patient is not capacitated to make her own health care decisions, and at this point there is no reasonable probability that she will recover capacity to do so. . No written advanced directives. According to [place] statutes, health care proxy decision making falls to the majority of adult children, she has 4 children. Son Rocael reports he has always made decisions for patient. Jose Juan has opted out of decision making. Other children desire to participate but have wanted Rocael to be the spokesperson and communication hub. Ethical issues impacting care: None. Important Contacts: * Rocael Hanna, son: [phone] serving as family spokesperson * Shobha Hanna, daughter: [phone] * Jose Juan Hanna son (has opted out of decision making) * Manny Hanna, son: * Carolyn Durand, sister: [phone] . Prognosis: 03/31/18 per upholstery covers inspector: Miss Hanna is a 52 year old female admitted with severe ARDS and organ failure secondary to MDRO/ESBL/KPC Klebsiella and Veillonella bacteremia. remains very critically ill. does still appear to be volume overloaded combined with significant myocardial dysfunction. continue dopamine to prevent bradycardia. continue APRV mode of ventilation. continue forced diuresis. Family concerned about goals of care and if this level of care was consistent with patient's wishes. I think it is hernandez to get palliative care involved. however, it does appear that given her young age, we could successfully rehabilitate her to a functional status at least consistent with her prior functional status at her SNF, and possibly improved depending on her clinical course. Of course this would take months of rehabilitation, and will likely include trach/peg due to her severe ARDS and hypoxia. I would support aggressive measures at this point, unless it becomes clear that the patient has a strong opinion against such measures. Remains critically ill today with multiple ongoing life-threatening organ dysfunction. Patient shows no signs of significant improvement in spite of aggressive care. She had a prolonged period on 04/10 and 04/11 where she was having difficulty maintaining sats in spite of 100% FI02 and 15 of peep. She is unable to tolerate sedation vacations and remains encephalopathic. It is unclear if there has been any permanent hypoxic cognitive changes from her initial code and /or subsequent hypoxic periods. . Code Status: Full Code Plan: == Code Status: FULL CODE. This was confirmed once again by son -- Rocael -- on 04/13/18 == Decision making: Patient is not capacitated to make her own health care decisions, and at this point there is no reasonable probability that she will recover capacity to do so. . No written advanced directives. According to [place] statutes, health care proxy decision making falls to the majority of adult children, she has 4 children. Son Rocael reports he has always made decisions for patient. Son Jose Juan has opted out of decision making. Other children remain involved with Rocael being the communication hub. == Goals of medical treatment: Family has been informed of patient's bleak prognosis and high likelihood of ICU . Nevertheless, they continue to want full aggressive care. See not above regarding conference with patients son and two of her brothers. Children would want trach at such time that patient is able to undergo the procedure. == Symptoms * Dyspnea: Dsypnea was initially felt to be due to CHF but now appears in large part due to multi-drug resistant +EBSL Klebsiella pneumonia. Patient's pulmonary status does not seem to be improving in spite of aggressive care. Currently being managed with vent support and sedation with fentanyl and midazolam. No further recommendations at this time. * Pain: No clear pre-hospitalization pain syndromes. Patient likely painful from prolonged bedbound status; OT tube; OG tube; vascular lines; other catheters. Pain should be adequately controlled by the fentanyl drip. No further recommendations at this time. * Encephalopathy: Unclear to what extent this is reversible and a result of her infection or possibly permanent due to hypoxic injury. No further recommendations at this time. == Expected disposition: Given the last few days, unless code status changes, patient will likely he have a while being coded in the ICU. == Case discussed with Dr. Terrell and bedside nurse. == Palliative care will continue to assist with symptom management and to further clarify goals of medical treatment as the clinical course evolves. Time Spent Total Floor Time (mins): 55 (Total time included chart review; patient exam; case discusseion with Dr. Terrell; collaboration with bedside nurse; above referenced family meeting with son and two brother. ) Face to Face Time (mins): 10 >50% Time in Counseling or Coordination of Care: Yes Attestation Attestation: To help prompt me to consider important information that might be impacting today's encounter and assessment, information from prior notes written by myself or my colleagues may have been "brought forward" into today's note. My signature on this note, however, is an attestation that I personally performed the exam, history, and/or decision-making noted today, and, unless otherwise indicated, the interactions with patient, family, and staff as well as the review of records all occurred today. I also attest that the listed assessment and stated plan reflect my best clinical judgment today based on the combination of historical information, prior notes, and today's exam/ interactions. When time spent is documented, it refers only to time spent today by the signer, or if indicated, combined time spent today by collaborating physician/nurse practitioner.
[2018-04-14] MEDS: Oral Hygiene Kit OROPHARYNG SCH ×5 (00:16→23:49)
[2018-04-14] MEDS: Insulin NovoLIN Regular Correctional Sugar Inj SQ SCH ×7 (00:16→23:48)
[2018-04-14] MEDS: EPOPROSTENOL NEB SCH ×3 (01:59→18:16)
[2018-04-14] MEDS: SODIUM CHLOR NEB SCH ×3 (01:59→18:16)
[2018-04-14] MEDS: Hypromellose 0.3% Opth Gel 10 GM Bottle EACH EYE SCH ×3 (03:04→18:16)
[2018-04-14] MEDS: fentaNYL 10 mcg/mL Premix Drip 2,500 MCG/250 ML BAG IV.SIG PRN ×2 (03:25→13:10)
[2018-04-14] MEDS: Midazolam 50 MG/50 ML Inj 50 MG/50 ML BAG IV.CONT PRN ×4 (04:19→18:16)
[2018-04-14] MEDS: QUEtiapine 25 MG Tablet PO SCH ×3 (05:38→22:19)
[2018-04-14] MEDS: Ceftazidime/Avibactam Inj 1.25 GM in Sodium Chlor 0.9% Inj 50 ML IV.SIG SCH ×2 (06:06→13:10)
--- NOTE | 2018-04-14 07:51 | P.PNCC ---
Subjective Subjective Remarks/Hospital Course: 52-year-old female with past medical history of diabetes mellitus, hypertension, hyperlipidemia, atrial fibrillation on chronic anticoagulation with warfarin, chronic diastolic heart failure, asthma, WISAM, peripheral vascular disease, super morbid obesity. She has been at [facility] since 03/02/18. [facility]ACOBO was called due to respiratory distress. When they arrived as she was found to be in respiratory distress with sats in the 70s. She was communicating with them and reportedly said "leave me alone". She then had PEA arrest. She received CPR reportedly 10-15 minutes and received 2 doses of epinephrine. LMA was placed by EVAC. LMA was removed and she was intubated by Dr. Daly after receiving etomidate 20 mg IV and succinylcholine. She has demonstrated purposeful movements post intubation, and is now on a propofol drip. She was recently admitted to [facility] 02/24-03/02 due to hypoglycemia, fall after isolated episode of diarrhea, hypoxia requiring HFNC. She has chronic interstitial changes on CXR. Reviewed records from [facility] which indicate she completed a 7 day course of Levaquin and has been on a prednisone taper. Current CXR shows bibasilar opacities. WBC is 16 ( previously 7.9). She has acute hypercapneic and hypoxemic respiratory failure. 03/19: Afebrile. Remains on 100% FiO2 PEEP of 12. Central has been placed for access due to multiple drips. Plan MRI brain today if respiratory status improves. Does not tolerate lying flat. Likely will need epoprostenol and rotaprone 03/20: Started on epoprostenol and currently on a rotor from bed. Currently on cisatracurium drip at 1 mcg/kg/min. Diuresing well. 03/21: Weaning down epoprostenol. Remains on cisatracurium drip at 6 mcg/kg/ min. Diuresis 6 L. Saturation was improved FiO2 down to 45%. 03/22: Hypothermic overnight. Currently euthermic. Excellent response to bumetanide drip. FiO2 down to 40%. PEEP down to 8. Possible discontinue paralytic agent today. 03/23: Resting comfortable in bed in no acute distress. Afebrile. Desaturated so placed back on rotor prone bed. Creatinine slowly increasing. 03/24: Afebrile. Worsening chest x-ray it appears to be volume overloaded again. +10 L past 24 hours. Will restart on bumetanide drip. Plan for bronchoscopy today. Switch to ceftazidime/avibactam secondary to ESBL positive Klebsiella pneumonia 03/25: FiO2 to 55%. Tolerating demanding drip with -2 L past 24 hours. Bronchoscopy results pending. Positive BM. Restarting tube feeding today 03/26: Cr continues to rise, although clinically continues to appear severely volume overloaded. fio2 70%. supine all night. off nimbex. off flolan. ID managing ESBL/MDRO/KPC Klebsiella and anaerobic bacteremia. 03/27: off rotaprone bed. multiple desat episodes overnight. on 100% fio2 and PEEP 10 this AM. good diuresis with net -2L/24h. bumex drip continues. awakens and follows commands. 03/28: not diuresing as well as yesterday. wbc uptrending. 2 more episodes of bradycardia, not associated with hypoxia. however, fio2 remains severely elevated. I increased her peep to 14. still arouses and moves all extremities. high concern for ongoing infectious etiology, but with high o2 requirements and intermittent bradycardia requiring atropine, at present too unstable for repeat imaging. 03/29: ct C/A/P without overt infectious source. does demonstrate radiographic evidence of biventricular dysfunction. bedside echo today demonstrates the same , and dilated IVC without respiratory variation. off vasopressors. required atropine for a HR of 15 once overnight. still very hypoxic: changed to APRV 5:1 , 28/0, 4/0.8. SUBJECTIVE 03/30: remains on APRV with hypoxia. multiple episodes of bradycardia and a 18 second pause yesterday. trialed on dobutamine but with multiple dysrhythmias. now on low-dose dopamine to mitigate bradycardia. adequate diuresis overnight. cxr improving slightly. still remains volume overloaded, and YOU persists. 03/31: mild improvements in fio2. remains on APRV. no more bradycardia today. still on dopamine to prevent pauses/bradycardia. YOU persists, but stable. unable to diurese yesterday and now net +2L despite fluid overload. must increase forced diuresis to improve hypoxemia. 04/01: Remains sedated, orally intubated on mechanical ventilation. Being diuresed. Started on Reglan in view of high gastric residuals and decreasing fentanyl as tolerated. 04/02: Remains sedated, orally intubated on APRV mode mechanical ventilation. 04/03: Remains sedated, orally intubated on mechanical ventilation. Awaiting family meeting with palliative care to decide goals of therapy. Being diuresed. 04/04: Remains sedated, orally intubated on mechanical ventilation. Switch to PRVC mode overnight. On 50% FiO2, PEEP +8. Family deciding regarding goals of therapy. 04/05: Remains sedated, orally intubated on mechanical ventilation. PEEP increased to +10 overnight due to hypoxia. 04/06: Remains sedated, orally intubated on mechanical ventilation. Worsening oxygenation since yesterday. Chest x-ray showed fluid overload. Resume Bumex twice daily yesterday in addition to Zaroxolyn PO. 04/07: Remains sedated, orally intubated on mechanical ventilation. Diuresed. Renal function remains a concern. Started on colistin nebs per ID due to very resistant organisms in sputum. Eventually needs tracheostomy and PEG tube placement. 04/08 Patient remains sedated with Versed and Fentanyl infusion. On Cardene drip.Had T:99.7 last night. Remains on high PEEP and FIO2( PEEP:15, FIO2: 65%) 04/09 Patient is intubated with Versed and Fentanyl drips. Tmax 100.3. Now on PRVC with PEEP:12 and FIO2 100% 04/10 Patient is sedated with Fentanyl and Versed drips. Flolan started yesterday. On PRVC with PEEP: 15 and FIO2 100%. Afebrile. 04/11 Patient was hypoxic overnight with [id number] given Rocuronium 100mg IV for desaturation and vent synchrony remains on high PEEP15 with 100%FIO2. Sedated with Versed and Fentanyl drips. CXR this morning shows diffuse b/l infiltrates severe in lower lung zones. 04/12 Patient remains sedated and intubated and on Flolan. Afebrile. 04/13 Patient remains sedated with Versed and Fentanyl and intubated. Afebrile. On Flolan . On PRVC with PEEP: 15, FIO2 down 70%. 04/14 Patient had another episode of desaturation overnight now on PRVC with PEEP :15 and 100% FIO2. T:99.7 last night. Sedated with Versed/Fentanyl drips. On Flo Objective Vital Signs / I&O: Vital Signs 04/13/18 07:50 04/13/18 07:51 04/13/18 08:00 Temperature 99.2 F Pulse Rate 62 54 L Respiratory Rate 20 20 53 H Blood Pressure Pulse Oximetry 97 97 04/13/18 08:01 04/13/18 08:30 04/13/18 09:00 Temperature Pulse Rate 54 L 57 L 61 Respiratory Rate 46 H 43 H 42 H Blood Pressure 133/58 L Pulse Oximetry 97 94 L 95 04/13/18 09:01 04/13/18 09:30 04/13/18 10:00 Temperature Pulse Rate 59 L 64 58 L Respiratory Rate 50 H 42 H 45 H Blood Pressure 128/66 Pulse Oximetry 95 91 L 94 L 04/13/18 10:01 04/13/18 10:30 04/13/18 11:00 Temperature Pulse Rate 58 L 53 L 56 L Respiratory Rate 43 H 53 H 52 H Blood Pressure 112/55 L 139/59 L Pulse Oximetry 94 L 94 L 94 L 04/13/18 11:30 04/13/18 11:35 04/13/18 12:00 Temperature 98.8 F Pulse Rate 56 L 56 L Respiratory Rate 55 H 20 54 H Blood Pressure Pulse Oximetry 94 L 95 91 L 04/13/18 12:01 04/13/18 12:30 04/13/18 13:00 Temperature Pulse Rate 56 L 53 L 55 L Respiratory Rate 55 H 47 H 49 H Blood Pressure 133/60 Pulse Oximetry 92 L 93 L 94 L 04/13/18 13:01 04/13/18 13:30 04/13/18 14:00 Temperature Pulse Rate 55 L 54 L 55 L Respiratory Rate 51 H 41 H 45 H Blood Pressure 137/63 Pulse Oximetry 94 L 95 95 04/13/18 14:01 04/13/18 14:30 04/13/18 15:00 Temperature Pulse Rate 55 L 58 L 65 Respiratory Rate 45 H 58 H 35 H Blood Pressure 142/63 H Pulse Oximetry 95 94 L 95 04/13/18 15:01 04/13/18 15:25 04/13/18 15:30 Temperature Pulse Rate 60 57 L Respiratory Rate 46 H 20 49 H Blood Pressure 125/61 Pulse Oximetry 95 96 98 04/13/18 16:00 08/13/18 16:01 04/13/18 16:30 Temperature 97.8 F Pulse Rate 84 86 64 Respiratory Rate 30 H 35 H 41 H Blood Pressure 119/77 Pulse Oximetry 98 97 93 L 04/13/18 17:00 04/13/18 17:01 04/13/18 17:30 Temperature Pulse Rate 62 61 58 L Respiratory Rate 42 H 53 H 46 H Blood Pressure 106/49 L Pulse Oximetry 92 L 92 L 95 04/13/18 18:00 04/13/18 18:01 04/13/18 18:30 Temperature Pulse Rate 57 L 59 L 62 Respiratory Rate 43 H 40 H 21 Blood Pressure 109/51 L Pulse Oximetry 95 94 L 90 L 04/13/18 19:56 04/13/18 20:00 04/13/18 22:00 Temperature 99.7 F H Pulse Rate 51 L 50 L Respiratory Rate 20 20 Blood Pressure 136/65 Pulse Oximetry 96 96 04/13/18 23:55 04/14/18 00:00 04/14/18 02:00 Temperature 99.0 F Pulse Rate 52 L 65 Respiratory Rate 20 22 Blood Pressure 120/56 L Pulse Oximetry 94 L 93 L 04/14/18 04:00 04/14/18 04:26 04/14/18 06:00 Temperature 98.6 F Pulse Rate 51 L 69 Respiratory Rate 22 24 Blood Pressure 136/63 Pulse Oximetry 97 93 L 04/14/18 07:22 Temperature Pulse Rate Respiratory Rate 23 Blood Pressure Pulse Oximetry 92 L Intake & Output 04/13/18 04/14/18 04/14/18 18:59 06:59 18:59 Intake Total 1368 / 1368 834 / 834 Output Total 2300 / 2300 1650 / 1650 Balance -932 / -932 -816 / -816 Weight 125 kg Intake: IV 800 / 800 389 / 389 Versed Inj 50 mg In 50 ml @ 2 100 / 100 100 / 100 MG/HR 2 mls/hr IV.CONT TITRATE PRN Rx#:[id number] Avycaz Inj 1.25 GM In NS Inj 50 100 / 100 50 / 50 ML @ 25 mls/hr IV.SIG Q8H JACKI Rx#:[id number] fentaNYL 10 mcg/mL Premix Drip 500 / 500 139 / 139 2,500 mcg In 250 ml @ 50 MCG/HR 5 mls/hr IV.SIG TITRATE PRN Rx #:[id number] Flolan (30,000 ng/mL) Neb 37.5 100 / 100 100 / 100 ML In NS Inj 62.5 ML @ As Directed NEB Q8H [facility] Rx#: [id number] Tube Feeding 448 / 448 445 / 445 Water Bolus Amount 120 / 120 Output: Stool 100 / 100 100 / 100 Urine Amount (Catheter) 2200 / 2200 1550 / 1550 Indwelling Urethral Catheter 2199 / 0 1550 / 1550 Other: Date of Last Bowel Movement 04/13/18 04/13/18 Result Diagrams: 04/14/18 05:55 04/14/18 05:50 Other Results: Laboratory Results - last 12 hr 04/13/18 04/14/18 04/14/18 19:51 00:10 03:05 POC Glucose 247 H 302 H 253 H 04/14/18 07:33 POC Glucose 148 H Imaging: Head CT 03/18/18 18:46 CONCLUSION: 1. Solitary 3 mm hyperdensity in the central [place] of uncertain significance. Differential considerations include a punctate calcification and acute hemorrhage. 2. No acute findings in the supratentorial brain. Head MRI 03/19/18 00:00 CONCLUSION: 1. No evidence of brainstem hemorrhage. 2. Small foci of encephalomalacia in the left occipital lobe and right cerebellum 3. No evidence of acute infarct, hemorrhage, mass or edema. 4. No evidence of enhancing intra-axial or extra-axial lesions. Venous Doppler Study 03/19/18 00:00 CONCLUSION: The study is negative for bilateral lower extremity deep venous thrombosis. Foot X-Ray 03/22/18 00:00 CONCLUSION: No acute bony destructive change. Previous amputations as above. Fairly marked soft tissue swelling of the forefoot. Abdomen X-Ray 03/26/18 00:00 CONCLUSION: Abdomen/Pelvis CT 03/28/18 00:00 CONCLUSION: 1. Minimal increase in the trace bilateral pleural effusions with compressive atelectasis in both bases. 2. Gallstones in a benign-appearing gallbladder 3. I don't see evidence for colitis. 4. I don't see inflammatory changes in the abdomen. Chest CT 03/28/18 00:00 CONCLUSION: 1. Biventricular cardiomegaly with coarse interstitial changes in both lungs. A component of this could be failure 2. Trace bilateral pleural effusions larger on the right.. These have decreased slightly in the interval. Foot MRI 03/28/18 00:00 CONCLUSION: 1. Difficult exam to interpret because of extensive soft tissue swelling. No obvious osteomyelitis. 2. Nuclear medicine tagged white cell study may help. Chest X-Ray 04/13/18 08:26 CONCLUSION: 1. No significant interval change. 2. Stable diffuse interstitial prominence. 3. Stable bilateral lower lung zone airspace disease. Objective Remarks: GENERAL: SKIN: Warm and dry. HEAD: Normocephalic. EYES: No scleral icterus. No injection or drainage. NECK: Supple, trachea midline. No JVD or lymphadenopathy. CARDIOVASCULAR: Regular rate and rhythm without murmurs, gallops, or rubs. RESPIRATORY: Breath sounds equal bilaterally. No accessory muscle use. GASTROINTESTINAL: Abdomen soft, non-tender, nondistended. MUSCULOSKELETAL: No cyanosis, or edema. Neuro: sedated and intubated. Assessment and Plan - Assessment and Plan Plan: Assessment: 52yF with severe ARDS and organ failure secondary to MDRO/ESBL/KPC Klebsiella and Veillonella bacteremia. remains very critically ill. does still appear to be volume overloaded combined with significant myocardial dysfunction. continue dopamine to prevent bradycardia. continue APRV mode of ventilation. continue forced diuresis. Family concerned about goals of care and if this level of care was consistent with patient's wishes. I think it is hernandez to get palliative care involved. however, it does appear that given her young age, we could successfully rehabilitate her to a functional status at least consistent with her prior functional status at her SNF, and possibly improved depending on her clinical course. Of course this would take months of rehabilitation, and will likely include trach/peg due to her severe ARDS and hypoxia. I would support aggressive measures at this point, unless it becomes clear that the patient has a strong opinion against such measures. Remains critically ill today with multiple ongoing life-threatening organ dysfunction. NEURO/PSYCH: Acute encephalopathy - secondary to hypercapnia, improving. Abnormal brain CT with 3 mm hyperdensity in central [place] Major depressive disorder NOS Chronic opioid use Encephalomalacia right cerebellum/left occipital lobe scheduled oxycodone 20mg po q4h Seroquel 50mg po q8h for delirium. Continue with versed and fentanyl for sedation and vent synchrony Monitor neuro status. Daily sedation vacation when clinically appropriate.. Followup CT brain - . Solitary 3 mm hyperdensity in the central [place] of uncertain significance. Differential considerations include a punctate calcification and acute hemorrhage RESP: Acute hypercapnic and hypoxemic respiratory failure Severe ARDS Acute asthma exacerbation Healthcare associated pneumonia WISAM/OHS Prior tobacco abuse Bilateral pleural effusions right 2.2 cm. Left 1.3 cm LMA was placed in the field by EVAC. Intubated in ED 03/18 Continue with vent support keep sats >92% On albuterol/ipratropium aerosols every 4 hours with albuterol aerosols every 2 hours as needed for dyspnea Weaned off epoprostenol 03/23. Flolan resumed 04/09 On PRVC RR 20, TV 550, IT:1.10, PEEP:15, FIO2: 100% On Solumederol 40mg IV daily, CXR yesterday- unchanged- diffuse b/l airspace disease. CV: Hypertension Hyperlipidemia Chronic diastolic heart failure Paroxysmal atrial fibrillation on chronic anti-coagulation with warfarin Peripheral vascular disease/peripheral arterial disease Elevated troponin intermittent bradycardia Cor pulmonale biventricular dysfunction Monitor HR and BP keep MAP>65mmHg 2D echo 02/24/18ejection fraction 50%. Wall thickness upper limits of normal. Trace MR. Lactic acid cleared Continue atorvastatin 40 mg daily Doppler bilateral upper and lower extremities revealed no acute thrombus amlodipine 10mg po daily hydralazine 100mg po q8h, Clonidine patch Coreg 3.125 mg BID, GI: History of GERD Chronic pancreatitis insufficiency Hypoalbuminemia vital high-protein @45 cc an hour per GIs recommendation Famotidine for GI prophylaxis Docusate sodium/senna 1 tablet twice daily for bowel regimen Creon home medication 3 times daily FEN/RENAL: Acute kidney injury superimposed on CKD Chronic kidney disease stage III Acute severe intravascular volume overload with pulmonary edema [place] catheter was placed in the emergency department. Monitor renal function, I/O's, avoid nephrotoxins On Bumex 2mg TID, Zaroxolyn 5mg Q12 Renal is following- Dr. Fraser ID: Acute healthcare associated pneumonia -ESBL positive Klebsiella pneumonia Veillonella species bacteremia Continue with abx per ID (Avycaz, Colistin nebs,) Monitor for signs of infections ( Fever, WBC) Blood cultures 2 03/18 Veillonella spp. Repeat 03/20 no growth to date Sputum, ESBL positive Klebsiella pneumonia 04/04 Pneumococcal urinary antigens, influenza a and B and chlamydia and mycoplasma all pending/negative HEME: Leukocytosis Chronic anemia/normocytic Monitor CBC daily. Follow trends. No indication for transfusion of blood products at this time. ENDO: Diabetes mellitus History of gout SSI q4h high scale Levemir 5 units SQ BID Holding glipizide 10 mg twice daily and insulin glargine/home medication Holding allopurinol 300 mg daily/home medication MSK: Elevated BMI Osteoporosis/osteoarthritis PT evaluate and treat PROPH: SCDs for DVT prophylaxis. Heparin SQ ACCESS: Peripheral IV, right femoral central line placed today 04/14 Doppler US B/l Upper and lower EXT negative for DVT on 03/19 Palliative care is following Prognosis guarded patient is critically ill with severe ARDS, refractory hypoxemia/ resp failure and multiorgan injury. Discussed with patient's son yesterday and updated him oh her condition. Critical care time 30 minutes, exclusive of separately billed procedures.
[2018-04-14 07:52] LABS: Baso % (Auto) 0.3 % (0.0-2.0); Eos % (Auto) 0.2 % (0.0-4.0); Hematocrit 23.6 % (35.0-46.0); Hemoglobin 7.8 gm/dL (11.6-15.3); Lymph # (Auto) 0.9 th/mm3 (1.0-4.8); Lymph % (Auto) 7.3 % (9.0-44.0); Mean Corpuscular Hemoglobin 26.7 pg (27.0-34.0); Mean Corpuscular Volume 80.9 fL (80.0-100.0); Mono # (Auto) 0.4 th/mm3 (0.0-0.9); Mono % (Auto) 3.2 % (0.0-8.0); Neut # (Auto) 10.8 th/mm3 (1.8-7.7); Platelet Count 171 th/mm3 (150-450); Red Blood Count 2.92 mil/mm3 (4.00-5.30); Red Cell Distribution Width 23.9 % (11.6-17.2); White Blood Count 12.2 th/mm3 (4.0-11.0)
[2018-04-14] MEDS: Chlorhexidine 0.12% Oral Kit 15 ML UDC OROPHARYNG SCH ×2 (08:27→20:26)
[2018-04-14] MEDS: MethylPREDNISolone Sod Succinate Inj 40 MG/ML Vial IV.PUSH SCH (08:29)
[2018-04-14] MEDS: Heparin - SQ 10,000 UNITS/ML Vial SQ SCH ×2 (08:29→20:22)
[2018-04-14] MEDS: Famotidine 20 MG Tablet PO SCH ×2 (08:30→20:22)
[2018-04-14] MEDS: Lipase/Protease/Amylase 24/76/120 DR Capsule PO SCH ×3 (08:30→17:06)
[2018-04-14] MEDS: amLODIPine 10 MG Tablet PO SCH (08:35)
[2018-04-14] MEDS: Insulin Detemir Inj 1,000 UNIT/10 ML Vial SQ SCH ×2 (08:35→20:23)
[2018-04-14] MEDS: Senna/Docusate Sodium 8.6/50 MG Tablet PO SCH ×2 (08:36→20:22)
[2018-04-14 08:48] LABS: Carbon Dioxide 32.7 meq/L (21.0-32.0); Potassium 3.5 meq/L (3.5-5.1)
[2018-04-14] MEDS: Sod Chloride 0.9% Inj 1,000 ML OTHER SCH (10:24)
--- NOTE | 2018-04-14 10:45 | P.PNNP ---
Subjective Interval history: Back on 100% FiO2. BUN continues to elevate. Fluid overloaded. Intubated, sedated. <Myrtle Levi - Last Filed: 04/14/18 10:41> Physical Exam Vital signs: Vital Signs 04/13/18 11:00 04/13/18 11:30 04/13/18 11:35 Temperature Pulse Rate 56 L 56 L Respiratory Rate 52 H 55 H 20 Blood Pressure 139/59 L Pulse Oximetry 94 L 94 L 95 04/13/18 12:00 04/13/18 12:01 04/13/18 12:30 Temperature 98.8 F Pulse Rate 56 L 56 L 53 L Respiratory Rate 54 H 55 H 47 H Blood Pressure 133/60 Pulse Oximetry 91 L 92 L 93 L 04/13/18 13:00 04/13/18 13:01 04/13/18 13:30 Temperature Pulse Rate 55 L 55 L 54 L Respiratory Rate 49 H 51 H 41 H Blood Pressure 137/63 Pulse Oximetry 94 L 94 L 95 04/13/18 14:00 04/13/18 14:01 04/13/18 14:30 Temperature Pulse Rate 55 L 55 L 58 L Respiratory Rate 45 H 45 H 58 H Blood Pressure 142/63 H Pulse Oximetry 95 95 94 L 04/13/18 15:00 04/13/18 15:01 04/13/18 15:25 Temperature Pulse Rate 65 60 Respiratory Rate 35 H 46 H 20 Blood Pressure 125/61 Pulse Oximetry 95 95 96 04/13/18 15:30 04/13/18 16:00 04/13/18 16:01 Temperature 97.8 F Pulse Rate 57 L 84 86 Respiratory Rate 49 H 30 H 35 H Blood Pressure 119/77 Pulse Oximetry 98 98 97 04/13/18 16:30 04/13/18 17:00 04/13/18 17:01 Temperature Pulse Rate 64 62 61 Respiratory Rate 41 H 42 H 53 H Blood Pressure 106/49 L Pulse Oximetry 93 L 92 L 92 L 04/13/18 17:30 04/13/18 18:00 04/13/18 18:01 Temperature Pulse Rate 58 L 57 L 59 L Respiratory Rate 46 H 43 H 40 H Blood Pressure 109/51 L Pulse Oximetry 95 95 94 L 04/13/18 18:30 04/13/18 19:56 04/13/18 20:00 Temperature 99.7 F H Pulse Rate 62 51 L Respiratory Rate 21 20 20 Blood Pressure 136/65 Pulse Oximetry 90 L 96 96 04/13/18 22:00 04/13/18 23:55 04/14/18 00:00 Temperature 99.0 F Pulse Rate 50 L 52 L Respiratory Rate 20 22 Blood Pressure 120/56 L Pulse Oximetry 94 L 93 L 04/14/18 02:00 04/14/18 04:00 04/14/18 04:26 Temperature 98.6 F Pulse Rate 65 51 L Respiratory Rate 22 24 Blood Pressure 136/63 Pulse Oximetry 97 93 L 04/14/18 06:00 04/14/18 07:22 Temperature Pulse Rate 69 Respiratory Rate 23 Blood Pressure Pulse Oximetry 92 L Intake & Output 04/13/18 04/14/18 04/14/18 18:59 06:59 18:59 Intake Total 1368 / 1368 834 / 834 134.1 / 134.1 Output Total 2300 / 2300 1650 / 1650 Balance -932 / -932 -816 / -816 134.1 / 134.1 Weight 125 kg Intake: IV 800 / 800 389 / 389 134.1 / 134.1 Versed Inj 50 mg In 50 ml @ 2 100 / 100 100 / 100 34.1 / 34.1 MG/HR 2 mls/hr IV.CONT TITRATE PRN Rx#:[id number] Avycaz Inj 1.25 GM In NS Inj 50 100 / 100 50 / 50 ML @ 25 mls/hr IV.SIG Q8H [facility] Rx#:[id number] fentaNYL 10 mcg/mL Premix Drip 500 / 500 139 / 139 2,500 mcg In 250 ml @ 50 MCG/HR 5 mls/hr IV.SIG TITRATE PRN Rx #:[id number] Flolan (30,000 ng/mL) Neb 37.5 100 / 100 100 / 100 100 / 100 ML In NS Inj 62.5 ML @ As Directed NEB Q8H [facility] Rx#: [id number] Tube Feeding 448 / 448 445 / 445 Water Bolus Amount 120 / 120 Output: Stool 100 / 100 100 / 100 Urine Amount (Catheter) 0 / 2200 1550 / 1550 Indwelling Urethral Catheter 2199 / 2199 1550 / 1550 Other: Date of Last Bowel Movement 04/13/18 04/13/18 - Constitutional no acute distress, morbidly obese - Routine HEENT Exam Head: Present: normocephalic Eye: Present: periorbital swelling - Routine Neck Exam Present: supple, full ROM - Routine Respiratory Exam Present: patient mechanically ventilated, rales. Absent: accessory muscle use - Routine Cardiovascular Exam Present: RRR, S1, S2 - Routine Abdominal Exam Present: soft, normoactive bowel sounds - Routine Extremities Exam Present: edema, pulses intact, amputation - Routine Skin Exam Present: intact, dry, warm - Routine Neurological Exam sedated, unresponsive - Urinary Catheter Management Indwelling Urethral Catheter Cath placed during this visit: yes Reason for continuing: Acute urinary retention Insertion date: 03/18/18 Insertion time: 21:00 <Myrtle Levi - Last Filed: 04/14/18 10:41> Vital signs: Vital Signs 04/14/18 10:00 04/14/18 11:24 04/14/18 12:00 Temperature 98.6 F Pulse Rate 74 69 Respiratory Rate 25 H 23 Blood Pressure 126/60 Pulse Oximetry 87 L 85 L 04/14/18 14:00 04/14/18 16:00 04/14/18 16:30 Temperature 99.1 F Pulse Rate 63 61 Respiratory Rate 36 H 20 Blood Pressure 124/60 Pulse Oximetry 99 99 04/14/18 18:00 04/14/18 20:00 04/14/18 20:16 Temperature 98.2 F Pulse Rate 59 L 57 L 64 Respiratory Rate 20 21 Blood Pressure 136/60 Pulse Oximetry 98 04/14/18 20:20 04/14/18 20:59 04/14/18 22:00 Temperature Pulse Rate 60 54 L Respiratory Rate 21 20 Blood Pressure Pulse Oximetry 99 04/14/18 23:55 04/14/18 23:57 04/15/18 00:00 Temperature 98.6 F Pulse Rate 69 66 Respiratory Rate 20 20 20 Blood Pressure 122/82 Pulse Oximetry 94 L 95 04/15/18 02:00 04/15/18 03:25 04/15/18 04:00 Temperature 98.6 F Pulse Rate 59 L 79 71 Respiratory Rate 26 H 20 Blood Pressure 131/58 L Pulse Oximetry 93 L 04/15/18 04:10 04/15/18 06:00 04/15/18 07:28 Temperature Pulse Rate 70 Respiratory Rate 20 26 H Blood Pressure Pulse Oximetry 95 Intake & Output 04/14/18 04/15/18 04/15/18 18:59 06:59 18:59 Intake Total 1324.1 / 1324.1 1615.0 / 1615.0 34.1 / 34.1 Output Total 1875 / 1875 2049 / 2049 Balance -550.9 / -550.9 -435.0 / -435.0 34.1 / 34.1 Weight 125 kg Intake: IV 684.1 / 684.1 975.0 / 975.0 34.1 / 34.1 Versed Inj 50 mg In 50 ml @ 2 134.1 / 134.1 50.0 / 50.0 34.1 / 34.1 MG/HR 2 mls/hr IV.CONT TITRATE PRN Rx#:[id number] Avycaz Inj 2.5 GM In NS Inj 50 100 / 100 50 / 50 ML @ 25 mls/hr IV.SIG Q8H [facility] Rx#:[id number] Vancomycin Inj 2,500 MG In NS 525 / 525 Inj 500 ML @ 250 mls/hr IV.SIG ONCE ONE Rx#:[id number] fentaNYL 10 mcg/mL Premix Drip 250 / 250 250 / 250 2,500 mcg In 250 ml @ 50 MCG/HR 5 mls/hr IV.SIG TITRATE PRN Rx #:[id number] Flolan (30,000 ng/mL) Neb 37.5 200 / 200 100 / 100 ML In NS Inj 62.5 ML @ As Directed NEB Q8H [facility] Rx#: [id number] Oral 0 / 0 Tube Feeding 520 / 520 540 / 540 Water Bolus Amount 120 / 120 100 / 100 Output: Stool 75 / 75 300 / 300 Urine Amount (Catheter) 1800 / 1800 1750 / 1750 Indwelling Urethral Catheter 1800 / 1800 1750 / 1750 Other: Date of Last Bowel Movement 04/14/18 04/15/18 - Urinary Catheter Management Indwelling Urethral Catheter Cath placed during this visit: no <Alverto Fraser - Last Filed: 04/15/18 09:18> Assessment and Plan - Assessment (1) Acute renal failure superimposed on stage 3 chronic kidney disease Code(s): N17.9 - Acute kidney failure, unspecified; N18.3 - Chronic kidney disease, stage 3 (moderate) Status: Acute Plan: Her baseline creatinine runs 1.6-2, GFR 44. YOU most likely due to cardiac arrest and decreased renal perfusion. Creatinine improving although her BUN is very high and getting worse. She is still requiring high oxygen content, has edema. Needs continued diuresis. On Bumex TID 2 mg. She has negative fluid balance. Metolazone on hold She is non oliguric and responding to diuretics. Avoid nephrotoxic agents,dose appropriate to renal status. Minimize non essential medications. She may need dialysis if her renal function further declines. The family wants aggressive treatment. Overall prognosis is very poor. (2) Acute respiratory failure with hypoxemia Code(s): J96.01 - Acute respiratory failure with hypoxia Status: Acute Plan: ARDS. On 100%FiO2. Poor prognosis. Management per critical care service. Will need trach soon. (3) Diabetes mellitus type 2 in obese Code(s): E11.69 - Type 2 diabetes mellitus with other specified complication; E66.9 - Obesity, unspecified Status: Chronic Plan: Maintain glucose 140-180mg/dL while hospitalized. Use insulin if needed. (4) Hypertension Code(s): I10 - Essential (primary) hypertension Status: Chronic Plan: Monitor BP. Continue medications as ordered. (5) HCAP (healthcare-associated pneumonia) Code(s): J18.9 - Pneumonia, unspecified organism Status: Acute Plan: ID is following, managing antibiotics. Currently on Avycaz and Meropenem. s/p bronch with cultures reviewed. (6) Diastolic heart failure Code(s): I50.30 - Unspecified diastolic (congestive) heart failure Status: Acute Plan: Monitor fluid status. Continue diuresis. She had an echo previous admission, EF 50%. <Myrtle Levi - Last Filed: 04/14/18 10:41> - Assessment (1) Acute renal failure superimposed on stage 3 chronic kidney disease Code(s): N17.9 - Acute kidney failure, unspecified; N18.3 - Chronic kidney disease, stage 3 (moderate) Status: Acute (2) Acute respiratory failure with hypoxemia Code(s): J96.01 - Acute respiratory failure with hypoxia Status: Acute (3) Diabetes mellitus type 2 in obese Code(s): E11.69 - Type 2 diabetes mellitus with other specified complication; E66.9 - Obesity, unspecified Status: Chronic (4) Hypertension Code(s): I10 - Essential (primary) hypertension Status: Chronic (5) HCAP (healthcare-associated pneumonia) Code(s): J18.9 - Pneumonia, unspecified organism Status: Acute (6) Diastolic heart failure Code(s): I50.30 - Unspecified diastolic (congestive) heart failure Status: Acute - Attending Attestation patient was seen and examined. Agree with above assessment and plan. No improvement in ARDS. Renal function is about the same as before. <Alverto Fraser - Last Filed: 04/15/18 09:18>
--- NOTE | 2018-04-14 13:30 | P.PNID ---
Subjective Remarks: worse from resp [place] back on 100 % PEEP 15 very large amount od secretions no fever no diarrhea Antibiotics: avicaz colistine nebs Allergies/Adverse Reactions: Allergies ibuprofen Allergy (Severe, Verified 03/18/18 17:58) MESSES WITH KIDNEYS Sulfa (Sulfonamide Antibiotics) Allergy (Severe, Verified 03/18/18 17:58) HIVES egg Allergy (Intermediate, Verified 03/18/18 17:58) Very Upset Stomach milk Allergy (Unknown, Verified 03/18/18 17:58) Heartburn Objective Vital Signs 04/13/18 13:30 04/13/18 14:00 04/13/18 14:01 Temperature Pulse Rate 54 L 55 L 55 L Respiratory Rate 41 H 45 H 45 H Blood Pressure 142/63 H Pulse Oximetry 95 95 95 04/13/18 14:30 04/13/18 15:00 04/13/18 15:01 Temperature Pulse Rate 58 L 65 60 Respiratory Rate 58 H 35 H 46 H Blood Pressure 125/61 Pulse Oximetry 94 L 95 95 04/13/18 15:25 04/13/18 15:30 04/13/18 16:00 Temperature 97.8 F Pulse Rate 57 L 84 Respiratory Rate 20 49 H 30 H Blood Pressure Pulse Oximetry 96 98 98 04/13/18 16:01 04/13/18 16:30 04/13/18 17:00 Temperature Pulse Rate 86 64 62 Respiratory Rate 35 H 41 H 42 H Blood Pressure 119/77 Pulse Oximetry 97 93 L 92 L 04/13/18 17:01 04/13/18 17:30 04/13/18 18:00 Temperature Pulse Rate 61 58 L 57 L Respiratory Rate 53 H 46 H 43 H Blood Pressure 106/49 L Pulse Oximetry 92 L 95 95 04/13/18 18:01 04/13/18 18:30 04/13/18 19:56 Temperature Pulse Rate 59 L 62 Respiratory Rate 40 H 21 20 Blood Pressure 109/51 L Pulse Oximetry 94 L 90 L 96 04/13/18 20:00 04/13/18 22:00 04/13/18 23:55 Temperature 99.7 F H Pulse Rate 51 L 50 L Respiratory Rate 20 20 Blood Pressure 136/65 Pulse Oximetry 96 94 L 04/14/18 00:00 04/14/18 02:00 04/14/18 04:00 Temperature 99.0 F 98.6 F Pulse Rate 52 L 65 51 L Respiratory Rate 22 22 Blood Pressure 120/56 L 136/63 Pulse Oximetry 93 L 97 04/14/18 04:26 04/14/18 06:00 04/14/18 07:22 Temperature Pulse Rate 69 Respiratory Rate 24 23 Blood Pressure Pulse Oximetry 93 L 92 L 04/14/18 08:00 04/14/18 10:00 04/14/18 11:24 Temperature 98.6 F Pulse Rate 72 74 Respiratory Rate 24 25 H Blood Pressure 143/58 H Pulse Oximetry 91 L 87 L 04/14/18 12:00 Temperature Pulse Rate 69 Respiratory Rate Blood Pressure Pulse Oximetry Intake & Output 04/13/18 04/14/18 04/14/18 18:59 06:59 18:59 Intake Total 1368 / 1368 834 / 834 134.1 / 134.1 Output Total 2300 / 2300 1650 / 1650 Balance -932 / -932 -816 / -816 134.1 / 134.1 Weight 125 kg Intake: IV 800 / 800 389 / 389 134.1 / 134.1 Versed Inj 50 mg In 50 ml @ 2 100 / 100 100 / 100 34.1 / 34.1 MG/HR 2 mls/hr IV.CONT TITRATE PRN Rx#:[id number] Avycaz Inj 1.25 GM In NS Inj 50 100 / 100 50 / 50 ML @ 25 mls/hr IV.SIG Q8H [facility] Rx#:[id number] fentaNYL 10 mcg/mL Premix Drip 500 / 500 139 / 139 2,500 mcg In 250 ml @ 50 MCG/HR 5 mls/hr IV.SIG TITRATE PRN Rx #:[id number] Flolan (30,000 ng/mL) Neb 37.5 100 / 100 100 / 100 100 / 100 ML In NS Inj 62.5 ML @ As Directed NEB Q8H [facility] Rx#: [id number] Tube Feeding 448 / 448 445 / 445 Water Bolus Amount 120 / 120 Output: Stool 100 / 100 100 / 100 Urine Amount (Catheter) 2200 / 2200 1550 / 1550 Indwelling Urethral Catheter 0 / 0 1550 / 1550 Other: Date of Last Bowel Movement 04/13/18 04/13/18 04/14/18 04/10/18 13:05 Sputum - Endotracheal Gram Stain - Final 04/10/18 13:05 Sputum - Endotracheal Sputum Culture - Final Heavy growth normal respiratory jennifer Lab - Hematology Results 04/13/18 04/14/18 04:05 05:55 WBC 11.7 H 12.2 H RBC 2.86 L 2.92 L Hgb 7.7 L 7.8 L Hct 22.9 L 23.6 L MCV 79.9 L 80.9 MCH 26.9 L 26.7 L MCHC 33.6 33.0 RDW 24.2 H 23.9 H Plt Count 153 171 MPV 11.2 H 11.0 Neut % (Auto) 86.9 H 89.0 H Lymph % (Auto) 7.7 L 7.3 L [place] % (Auto) 4.6 3.2 Eos % (Auto) 0.2 0.2 Baso % (Auto) 0.6 0.3 Neut # (Auto) 10.2 H 10.8 H Lymph # (Auto) 0.9 L 0.9 L [place] # (Auto) 0.5 0.4 Eos # (Auto) 0.0 0.0 Baso # (Auto) 0.1 0.0 WBC Differential . . Differential Comment Auto diff final Auto diff final Hematology Comments Lab - Chemistry Results 04/12/18 04/12/18 04/13/18 16:27 19:44 01:17 Sodium Potassium Chloride Carbon Dioxide Anion Gap BUN Creatinine Estimated GFR POC Glucose 293 H 301 H 303 H Random Glucose Calcium Total Bilirubin AST ALT Alkaline Phosphatase Total Protein Albumin 04/13/18 04/13/18 04/13/18 04:05 05:22 08:32 Sodium 141 Potassium 3.4 L Chloride 97 L Carbon Dioxide 32.3 H Anion Gap 12 BUN 165 H Creatinine 1.90 H Estimated GFR 33 L POC Glucose 283 H 279 H Random Glucose 280 H Calcium 9.8 Total Bilirubin 0.6 AST 33 ALT 41 Alkaline Phosphatase 80 Total Protein 6.5 Albumin 2.4 L 04/13/18 04/13/18 04/13/18 11:25 15:01 19:51 Sodium Potassium Chloride Carbon Dioxide Anion Gap BUN Creatinine Estimated GFR POC Glucose 268 H 271 H 247 H Random Glucose Calcium Total Bilirubin AST ALT Alkaline Phosphatase Total Protein Albumin 04/14/18 04/14/18 04/14/18 00:10 03:05 05:50 Sodium 138 Potassium 3.5 Chloride 94 L Carbon Dioxide 32.7 H Anion Gap 11 BUN 162 H Creatinine 1.75 H Estimated GFR 37 L POC Glucose 302 H 253 H Random Glucose 145 H D Calcium 10.0 Total Bilirubin AST ALT Alkaline Phosphatase Total Protein Albumin 04/14/18 04/14/18 07:33 11:29 Sodium Potassium Chloride Carbon Dioxide Anion Gap BUN Creatinine Estimated GFR POC Glucose 148 H 214 H Random Glucose Calcium Total Bilirubin AST ALT Alkaline Phosphatase Total Protein Albumin Imaging: ITS Impressions Head CT 03/18/18 18:46 CONCLUSION: 1. Solitary 3 mm hyperdensity in the central [place] of uncertain significance. Differential considerations include a punctate calcification and acute hemorrhage. 2. No acute findings in the supratentorial brain. Head MRI 03/19/18 00:00 CONCLUSION: 1. No evidence of brainstem hemorrhage. 2. Small foci of encephalomalacia in the left occipital lobe and right cerebellum 3. No evidence of acute infarct, hemorrhage, mass or edema. 4. No evidence of enhancing intra-axial or extra-axial lesions. Venous Doppler Study 03/19/18 00:00 CONCLUSION: The study is negative for bilateral lower extremity deep venous thrombosis. Foot X-Ray 03/22/18 00:00 CONCLUSION: No acute bony destructive change. Previous amputations as above. Fairly marked soft tissue swelling of the forefoot. Abdomen X-Ray 03/26/18 00:00 CONCLUSION: Abdomen/Pelvis CT 03/28/18 00:00 CONCLUSION: 1. Minimal increase in the trace bilateral pleural effusions with compressive atelectasis in both bases. 2. Gallstones in a benign-appearing gallbladder 3. I don't see evidence for colitis. 4. I don't see inflammatory changes in the abdomen. Chest CT 03/28/18 00:00 CONCLUSION: 1. Biventricular cardiomegaly with coarse interstitial changes in both lungs. A component of this could be failure 2. Trace bilateral pleural effusions larger on the right.. These have decreased slightly in the interval. Foot MRI 03/28/18 00:00 CONCLUSION: 1. Difficult exam to interpret because of extensive soft tissue swelling. No obvious osteomyelitis. 2. Nuclear medicine tagged white cell study may help. Chest X-Ray 04/13/18 08:26 CONCLUSION: 1. No significant interval change. 2. Stable diffuse interstitial prominence. 3. Stable bilateral lower lung zone airspace disease. Physical Exam: no acute distress, morbidly obese Head: Present: normocephalic, atraumatic, prominent facial swelling Eye: Present: improved periorbital swelling ENT: Present: mucous membranes moist, oropharynx clear NECK: trachea midline LUNGs: patient mechanically ventilated, fairly clear Cardiovascular : RRR, S1, S2 no murmurs, rubs , gallops Abdominal : soft, less distended no reaction to palpation, no audible bowel sounds no palpable organomegaly liquid stool in rectal collection system : hernandez in place with clear light yellow urine hernandez in place with small amount of clear yellow urine Extremities: edema improved, less prominent 1-2 prominent tree bark meeks Skin : intact, dry, no rash well perfused Neurological : sedated Psychiatric : unable to assess LINE: R IJ removed Assessment and Plan - Plan sp cardiac arrest Anaerobic sepsis; veillonella ? source : GI vs osteo CT and MRI diid not reveal source of her anaerobic sepsis Xrays negative, CT/MR not feasible 2/2 clincial cond'n Acute VDRF, increasing vent requirement s - difficulty weaning PNA, ESBL/ ? [facility] Kleb R to zerbaxa, S acvycaz and vabomere worsening CXR worsening oxygenation growing MDRO Kleb again YOU - stable she is doing worse Persistent leukocytosis - much worse Anemia, new. No clincially apparent bleed - Prognosis is poorr due to progressive resp failure survival of this hospitalisation is not expected - cont avycaz - adjsut dose per renal fnx - fu repeat sputum clx S to additional abx - monitor WBC - add vancomycin jeanne RN d/ w family memebers @ b/s jeanne [facility] attending
[2018-04-14] MEDS ORDERED: Vancomycin Consult Pharmacy 1 EACH OTHER SCH (13:31)
--- NOTE | 2018-04-14 15:27 | P.PCN ---
Date of procedure: 04/14/18 Pre-op diagnosis: VDRF, ARDS, Pneumonia Post-op diagnosis: same Procedure: PROCEDURE: Right Femoral central line placement INDICATION: Hemodynamic access DETAILS OF PROCEDURE The patient was placed in supine position. The skin was cleansed with Chloraprep. Additional barrier precautions included large sterile drape, sterile gloves, sterile gown, face mask, and hat. 1% lidocaine was used for local anesthesia. The vein was accessed with an introducer needle. The guide wire was advanced. Using Seldinger technique right femoral central line was placed. The catheter was secured with 2-0 silk. A sterile dressing with antibiotic disc was applied. ESTIMATED BLOOD LOSS: minimal COMPLICATIONS: None
[2018-04-14] MEDS ORDERED: Vancomycin Inj 2,500 MG in Sodium Chlor 0.9% Inj 500 ML IV.SIG ONE (16:00)
[2018-04-14] MEDS: Ceftazidime/Avibactam Inj 2.5 GM in Sodium Chlor 0.9% Inj 50 ML IV.SIG SCH (22:19)
[2018-04-15] MEDS: Hypromellose 0.3% Opth Gel 10 GM Bottle EACH EYE SCH ×3 (02:54→21:22)
[2018-04-15] MEDS: Midazolam 50 MG/50 ML Inj 50 MG/50 ML BAG IV.CONT PRN ×3 (03:01→17:25)
[2018-04-15] MEDS: Oral Hygiene Kit OROPHARYNG SCH ×3 (04:25→16:16)
[2018-04-15] MEDS: Insulin NovoLIN Regular Correctional Sugar Inj SQ SCH ×5 (04:25→20:21)
[2018-04-15 05:12] LABS: Baso % (Auto) 0.2 % (0.0-2.0); Eos % (Auto) 0.4 % (0.0-4.0); Hematocrit 21.6 % (35.0-46.0); Hemoglobin 7.2 gm/dL (11.6-15.3); Lymph # (Auto) 0.8 th/mm3 (1.0-4.8); Lymph % (Auto) 7.3 % (9.0-44.0); Mean Corpuscular HGB Conc 33.5 % (32.0-36.0); Mean Corpuscular Hemoglobin 27.3 pg (27.0-34.0); Mean Corpuscular Volume 81.6 fL (80.0-100.0); Mean Platelet Volume 10.4 fL (7.0-11.0); Mono # (Auto) 0.6 th/mm3 (0.0-0.9); Mono % (Auto) 5.7 % (0.0-8.0); Neut # (Auto) 8.9 th/mm3 (1.8-7.7); Neut % (Auto) 86.4 % (16.0-70.0); Platelet Count 156 th/mm3 (150-450); Red Blood Count 2.64 mil/mm3 (4.00-5.30); White Blood Count 10.3 th/mm3 (4.0-11.0)
[2018-04-15] MEDS: QUEtiapine 25 MG Tablet PO SCH ×3 (05:15→21:22)
[2018-04-15] MEDS: Ceftazidime/Avibactam Inj 2.5 GM in Sodium Chlor 0.9% Inj 50 ML IV.SIG SCH ×3 (05:15→21:22)
[2018-04-15 05:44] LABS: Calcium 9.5 mg/dL (8.5-10.1); Carbon Dioxide 32.3 meq/L (21.0-32.0); Potassium 3.5 meq/L (3.5-5.1)
--- NOTE | 2018-04-15 07:47 | P.PNCC ---
Subjective Subjective Remarks/Hospital Course: 52-year-old female with past medical history of diabetes mellitus, hypertension, hyperlipidemia, atrial fibrillation on chronic anticoagulation with warfarin, chronic diastolic heart failure, asthma, WISAM, peripheral vascular disease, super morbid obesity. She has been at [facility] since 03/02/18. Abeba JACOBO was called due to respiratory distress. When they arrived as she was found to be in respiratory distress with sats in the 70s. She was communicating with them and reportedly said "leave me alone". She then had PEA arrest. She received CPR reportedly 10-15 minutes and received 2 doses of epinephrine. LMA was placed by EVAC. LMA was removed and she was intubated by Dr. Daly after receiving etomidate 20 mg IV and succinylcholine. She has demonstrated purposeful movements post intubation, and is now on a propofol drip. She was [place] [facility] [place] due to hypoglycemia, fall after isolated episode of diarrhea, hypoxia requiring HFNC. She has chronic interstitial changes on CXR. Reviewed records from [facility] which indicate she completed a 7 day course of Levaquin and has been on a prednisone taper. Current CXR shows bibasilar opacities. WBC is 16 ( previously 7.9). She has acute hypercapneic and hypoxemic respiratory failure. 03/19: Afebrile. Remains on 100% FiO2 PEEP of 12. Central has been placed for access due to multiple drips. Plan MRI brain today if respiratory status improves. Does not tolerate lying flat. Likely will need epoprostenol and rotaprone 03/20: Started on epoprostenol and currently on a rotor from bed. Currently on cisatracurium drip at 1 mcg/kg/min. Diuresing well. 03/21: Weaning down epoprostenol. Remains on cisatracurium drip at 6 mcg/kg/ min. Diuresis 6 L. Saturation was improved FiO2 down to 45%. 03/22: Hypothermic overnight. Currently euthermic. Excellent response to bumetanide drip. FiO2 down to 40%. PEEP down to 8. Possible discontinue paralytic agent today. 03/23: Resting comfortable in bed in no acute distress. Afebrile. Desaturated so placed back on rotor prone bed. Creatinine slowly increasing. 03/24: Afebrile. Worsening chest x-ray it appears to be volume overloaded again. +10 L past 24 hours. Will restart on bumetanide drip. Plan for bronchoscopy today. Switch to ceftazidime/avibactam secondary to ESBL positive Klebsiella pneumonia 03/25: FiO2 to 55%. Tolerating demanding drip with -2 L past 24 hours. Bronchoscopy results pending. Positive BM. Restarting tube feeding today 03/26: Cr continues to rise, although clinically continues to appear severely volume overloaded. fio2 70%. supine all night. off nimbex. off flolan. ID managing ESBL/MDRO/KPC Klebsiella and anaerobic bacteremia. 03/27: off rotaprone bed. multiple desat episodes overnight. on 100% fio2 and PEEP 10 this AM. good diuresis with net -2L/24h. bumex drip continues. awakens and follows commands. 03/28: not diuresing as well as yesterday. wbc uptrending. 2 more episodes of bradycardia, not associated with hypoxia. however, fio2 remains severely elevated. I increased her peep to 14. still arouses and moves all extremities. high concern for ongoing infectious etiology, but with high o2 requirements and intermittent bradycardia requiring atropine, at present too unstable for repeat imaging. 03/29: ct C/A/P without overt infectious source. does demonstrate radiographic evidence of biventricular dysfunction. bedside echo today demonstrates the same , and dilated IVC without respiratory variation. off vasopressors. required atropine for a HR of 15 once overnight. still very hypoxic: changed to APRV 5:1 , 28/0, 4/0.8. SUBJECTIVE 03/30: remains on APRV with hypoxia. multiple episodes of bradycardia and a 18 second pause yesterday. trialed on dobutamine but with multiple dysrhythmias. now on low-dose dopamine to mitigate bradycardia. adequate diuresis overnight. cxr improving slightly. still remains volume overloaded, and YOU persists. 03/31: mild improvements in fio2. remains on APRV. no more bradycardia today. still on dopamine to prevent pauses/bradycardia. YOU persists, but stable. unable to diurese yesterday and now net +2L despite fluid overload. must increase forced diuresis to improve hypoxemia. 04/01: Remains sedated, orally intubated on mechanical ventilation. Being diuresed. Started on Reglan in view of high gastric residuals and decreasing fentanyl as tolerated. 04/02: Remains sedated, orally intubated on APRV mode mechanical ventilation. 04/03: Remains sedated, orally intubated on mechanical ventilation. Awaiting family meeting with palliative care to decide goals of therapy. Being diuresed. 04/04: Remains sedated, orally intubated on mechanical ventilation. Switch to PRVC mode overnight. On 50% FiO2, PEEP +8. Family deciding regarding goals of therapy. 04/05: Remains sedated, orally intubated on mechanical ventilation. PEEP increased to +10 overnight due to hypoxia. 04/06: Remains sedated, orally intubated on mechanical ventilation. Worsening oxygenation since yesterday. Chest x-ray showed fluid overload. Resume Bumex twice daily yesterday in addition to Zaroxolyn PO. 04/07: Remains sedated, orally intubated on mechanical ventilation. Diuresed. Renal function remains a concern. Started on colistin nebs per ID due to very resistant organisms in sputum. Eventually needs tracheostomy and PEG tube placement. 04/08 Patient remains sedated with Versed and Fentanyl infusion. On Cardene drip.Had T:99.7 last night. Remains on high PEEP and FIO2( PEEP:15, FIO2: 65%) 04/09 Patient is intubated with Versed and Fentanyl drips. Tmax 100.3. Now on PRVC with PEEP:12 and FIO2 100% 04/10 Patient is sedated with Fentanyl and Versed drips. Flolan started yesterday. On PRVC with PEEP: 15 and FIO2 100%. Afebrile. 04/11 Patient was hypoxic overnight with [id number]'s given Rocuronium 100mg IV for desaturation and vent synchrony remains on high PEEP15 with 100%FIO2. Sedated with Versed and Fentanyl drips. CXR this morning shows diffuse b/l infiltrates severe in lower lung zones. 04/12 Patient remains sedated and intubated and on Flolan. Afebrile. 04/13 Patient remains sedated with Versed and Fentanyl and intubated. Afebrile. On Flolan . On PRVC with PEEP: 15, FIO2 down 70%. 04/14 Patient had another episode of desaturation overnight now on PRVC with PEEP :15 and 100% FIO2. T:99.7 last night. Sedated with Versed/Fentanyl drips. On Flolan 04/15 Patient remans sedated with Fentanyl, Versed and intubated. Afebrile. On PRVC with PEEP:15 and FIO2 75%. Objective Vital Signs / I&O: Vital Signs 04/14/18 08:00 04/14/18 10:00 04/14/18 11:24 Temperature 98.6 F Pulse Rate 72 74 Respiratory Rate 24 25 H Blood Pressure 143/58 H Pulse Oximetry 91 L 87 L 04/14/18 12:00 04/14/18 14:00 04/14/18 16:00 Temperature 98.6 F 99.1 F Pulse Rate 69 63 61 Respiratory Rate 23 36 H Blood Pressure 126/60 124/60 Pulse Oximetry 85 L 99 04/14/18 16:30 04/14/18 18:00 04/14/18 20:00 Temperature 98.2 F Pulse Rate 59 L 57 L Respiratory Rate 20 20 Blood Pressure 136/60 Pulse Oximetry 99 98 04/14/18 20:16 04/14/18 20:20 04/14/18 20:59 Temperature Pulse Rate 64 60 Respiratory Rate 21 21 20 Blood Pressure Pulse Oximetry 99 04/14/18 22:00 04/14/18 23:55 04/14/18 23:57 Temperature Pulse Rate 54 L 69 Respiratory Rate 20 20 Blood Pressure Pulse Oximetry 94 L 04/15/18 00:00 04/15/18 02:00 04/15/18 03:25 Temperature 98.6 F Pulse Rate 66 59 L 79 Respiratory Rate 20 26 H Blood Pressure 122/82 Pulse Oximetry 95 04/15/18 04:00 04/15/18 04:10 04/15/18 06:00 Temperature 98.6 F Pulse Rate 71 70 Respiratory Rate 20 20 Blood Pressure 131/58 L Pulse Oximetry 93 L 95 04/15/18 07:28 Temperature Pulse Rate Respiratory Rate 26 H Blood Pressure Pulse Oximetry Intake & Output 04/14/18 04/15/18 04/15/18 18:59 06:59 18:59 Intake Total 1324.1 / 1324.1 1515.0 / 1515.0 Output Total 1875 / 1875 2049 / 2049 Balance -550.9 / -550.9 -535.0 / -535.0 Weight 125 kg Intake: IV 684.1 / 684.1 875.0 / 875.0 Versed Inj 50 mg In 50 ml @ 2 134.1 / 134.1 50.0 / 50.0 MG/HR 2 mls/hr IV.CONT TITRATE PRN Rx#:[id number] Avycaz Inj 2.5 GM In NS Inj 50 100 / 100 50 / 50 ML @ 25 mls/hr IV.SIG Q8H JACKI Rx#:[id number] Vancomycin Inj 2,500 MG In NS 525 / 525 Inj 500 ML @ 250 mls/hr IV.SIG ONCE ONE Rx#:[id number] fentaNYL 10 mcg/mL Premix Drip 250 / 250 250 / 250 2,500 mcg In 250 ml @ 50 MCG/HR 5 mls/hr IV.SIG TITRATE PRN Rx #:[id number] Flolan (30,000 ng/mL) Neb 37.5 200 / 200 ML In NS Inj 62.5 ML @ As Directed NEB Q8H [facility] Rx#: [id number] Oral 0 / 0 Tube Feeding 520 / 520 540 / 540 Water Bolus Amount 120 / 120 100 / 100 Output: Stool 75 / 75 300 / 300 Urine Amount (Catheter) 1800 / 1800 1750 / 1750 Indwelling Urethral Catheter 1800 / 1800 1750 / 1750 Other: Date of Last Bowel Movement 04/14/18 04/15/18 Result Diagrams: 04/15/18 12:20 04/15/18 04:30 Other Results: Laboratory Results - last 12 hr 04/14/18 04/14/18 04/15/18 19:47 23:47 04:24 WBC RBC Hgb Hct MCV MCH MCHC RDW Plt Count MPV Neut % (Auto) Lymph % (Auto) Clark % (Auto) Eos % (Auto) Baso % (Auto) Neut # (Auto) Lymph # (Auto) Clark # (Auto) Eos # (Auto) Baso # (Auto) WBC Differential Differential Comment Sodium Potassium Chloride Carbon Dioxide Anion Gap BUN Creatinine Estimated GFR POC Glucose 350 H 330 H 263 H Random Glucose Calcium 04/15/18 04/15/18 04:30 04:30 WBC 10.3 RBC 2.64 L Hgb 7.2 L Hct 21.6 L MCV 81.6 MCH 27.3 MCHC 33.5 RDW 24.0 H Plt Count 156 MPV 10.4 Neut % (Auto) 86.4 H Lymph % (Auto) 7.3 L Clark % (Auto) 5.7 Eos % (Auto) 0.4 Baso % (Auto) 0.2 Neut # (Auto) 8.9 H Lymph # (Auto) 0.8 L Clark # (Auto) 0.6 Eos # (Auto) 0.0 Baso # (Auto) 0.0 WBC Differential . Differential Comment Auto diff final Sodium 140 Potassium 3.5 Chloride 96 L Carbon Dioxide 32.3 H Anion Gap 12 BUN 166 H Creatinine 1.81 H Estimated GFR 35 L POC Glucose Random Glucose 262 H D Calcium 9.5 Imaging: Head CT 03/18/18 18:46 CONCLUSION: 1. Solitary 3 mm hyperdensity in the central [place] of uncertain significance. Differential considerations include a punctate calcification and acute hemorrhage. 2. No acute findings in the supratentorial brain. Head MRI 03/19/18 00:00 CONCLUSION: 1. No evidence of brainstem hemorrhage. 2. Small foci of encephalomalacia in the left occipital lobe and right cerebellum 3. No evidence of acute infarct, hemorrhage, mass or edema. 4. No evidence of enhancing intra-axial or extra-axial lesions. Venous Doppler Study 03/19/18 00:00 CONCLUSION: The study is negative for bilateral lower extremity deep venous thrombosis. Foot X-Ray 03/22/18 00:00 CONCLUSION: No acute bony destructive change. Previous amputations as above. Fairly marked soft tissue swelling of the forefoot. Abdomen X-Ray 03/26/18 00:00 CONCLUSION: Abdomen/Pelvis CT 03/28/18 00:00 CONCLUSION: 1. Minimal increase in the trace bilateral pleural effusions with compressive atelectasis in both bases. 2. Gallstones in a benign-appearing gallbladder 3. I don't see evidence for colitis. 4. I don't see inflammatory changes in the abdomen. Chest CT 03/28/18 00:00 CONCLUSION: 1. Biventricular cardiomegaly with coarse interstitial changes in both lungs. A component of this could be failure 2. Trace bilateral pleural effusions larger on the right.. These have decreased slightly in the interval. Foot MRI 03/28/18 00:00 CONCLUSION: 1. Difficult exam to interpret because of extensive soft tissue swelling. No obvious osteomyelitis. 2. Nuclear medicine tagged white cell study may help. Chest X-Ray 04/13/18 08:26 CONCLUSION: 1. No significant interval change. 2. Stable diffuse interstitial prominence. 3. Stable bilateral lower lung zone airspace disease. Objective Remarks: GENERAL: SKIN: Warm and dry. HEAD: Normocephalic. EYES: No scleral icterus. No injection or drainage. NECK: Supple, trachea midline. No JVD or lymphadenopathy. CARDIOVASCULAR: Regular rate and rhythm without murmurs, gallops, or rubs. RESPIRATORY: Breath sounds equal bilaterally. No accessory muscle use. GASTROINTESTINAL: Abdomen soft, non-tender, nondistended. MUSCULOSKELETAL: No cyanosis, or edema. Neuro: sedated and intubated. Assessment and Plan - Assessment and Plan Plan: Assessment: 52yF with severe ARDS and organ failure secondary to MDRO/ESBL/KPC Klebsiella and Veillonella bacteremia. remains very critically ill. does still appear to be volume overloaded combined with significant myocardial dysfunction. continue dopamine to prevent bradycardia. continue APRV mode of ventilation. continue forced diuresis. Family concerned about goals of care and if this level of care was consistent with patient's wishes. I think it is hernandez to get palliative care involved. however, it does appear that given her young age, we could successfully rehabilitate her to a functional status at least consistent with her prior functional status at her SNF, and possibly improved depending on her clinical course. Of course this would take months of rehabilitation, and will likely include trach/peg due to her severe ARDS and hypoxia. I would support aggressive measures at this point, unless it becomes clear that the patient has a strong opinion against such measures. Remains critically ill today with multiple ongoing life-threatening organ dysfunction. NEURO/PSYCH: Acute encephalopathy - secondary to hypercapnia, improving. Abnormal brain CT with 3 mm hyperdensity in central [place] Major depressive disorder NOS Chronic opioid use Encephalomalacia right cerebellum/left occipital lobe scheduled oxycodone 20mg po q4h Seroquel 50mg po q8h for delirium. Continue with versed and fentanyl for sedation and vent synchrony Will give Rocuronium 50mg IV x1 for vent synchrony Monitor neuro status. Daily sedation vacation when clinically appropriate.. Followup CT brain - . Solitary 3 mm hyperdensity in the central [place] of uncertain significance. Differential considerations include a punctate calcification and acute hemorrhage RESP: Acute hypercapnic and hypoxemic respiratory failure Severe ARDS Acute asthma exacerbation Healthcare associated pneumonia WISAM/OHS Prior tobacco abuse Bilateral pleural effusions right 2.2 cm. Left 1.3 cm LMA was placed in the field by EVAC. Intubated in ED 03/18 Continue with vent support keep sats >92% On albuterol/ipratropium aerosols every 4 hours with albuterol aerosols every 2 hours as needed for dyspnea Weaned off epoprostenol 03/23. Flolan 30,000 ng/ml resumed 04/09 On PRVC RR 20, TV 550, IT:1.10, PEEP:15, FIO2: 75% On Solumederol 40mg IV daily, CXR today- unchanged- diffuse b/l airspace disease. CV: Hypertension Hyperlipidemia Chronic diastolic heart failure Paroxysmal atrial fibrillation on chronic anti-coagulation with warfarin Peripheral vascular disease/peripheral arterial disease Elevated troponin intermittent bradycardia Cor pulmonale biventricular dysfunction Monitor HR and BP keep MAP>65mmHg 2D echo 02/24/18ejection fraction 50%. Wall thickness upper limits of normal. Trace MR. Lactic acid cleared Continue atorvastatin 40 mg daily Doppler bilateral upper and lower extremities revealed no acute thrombus amlodipine 10mg po daily hydralazine 100mg po q8h, Clonidine patch Coreg 3.125 mg BID, GI: History of GERD Chronic pancreatitis insufficiency Hypoalbuminemia vital high-protein @45 cc an hour per GIs recommendation Famotidine for GI prophylaxis Docusate sodium/senna 1 tablet twice daily for bowel regimen Creon home medication 3 times daily FEN/RENAL: Acute kidney injury superimposed on CKD Chronic kidney disease stage III Acute severe intravascular volume overload with pulmonary edema [place] catheter was placed in the emergency department. Monitor renal function, I/O's, avoid nephrotoxins On Bumex 2mg TID, Zaroxolyn 5mg Q12 Cr: 1.81 today from 1.75 Renal is following- Dr. Fraser ID: Acute healthcare associated pneumonia -ESBL positive Klebsiella pneumonia Veillonella species bacteremia Continue with abx per ID (Avycaz, Colistin nebs,) Monitor for signs of infections ( Fever, WBC) Follow up on sputum cx 04/14: Pending 04/10 Sputum: Normal resp jennifer Blood cultures 2 03/18 Veillonella spp. Repeat 03/20 no growth to date Sputum, ESBL positive Klebsiella pneumonia 04/04 Pneumococcal urinary antigens, influenza a and B and chlamydia and mycoplasma all pending/negative HEME: Leukocytosis Chronic anemia/normocytic Monitor CBC daily. Repeat Hgb 7.2 will transfuse 1u PRBC No indication for transfusion of blood products at this time. ENDO: Diabetes mellitus History of gout SSI q4h high scale Increase Levemir 12 units SQ BID Holding glipizide 10 mg twice daily and insulin glargine/home medication Holding allopurinol 300 mg daily/home medication MSK: Elevated BMI Osteoporosis/osteoarthritis PT evaluate and treat PROPH: SCDs for DVT prophylaxis. Heparin SQ ACCESS: Peripheral IV, right femoral central line placed today 04/14 Doppler US B/l Upper and lower EXT negative for DVT on 03/19 Palliative care is following Prognosis guarded patient is critically ill with severe ARDS, refractory hypoxemia/ resp failure and multiorgan injury. Discussed with patient's son yesterday and updated him oh her condition. Critical care time 30 minutes, exclusive of separately billed procedures.
[2018-04-15] MEDS: Famotidine 20 MG Tablet PO SCH ×2 (08:35→20:04)
[2018-04-15] MEDS: amLODIPine 10 MG Tablet PO SCH (08:35)
[2018-04-15] MEDS: Senna/Docusate Sodium 8.6/50 MG Tablet PO SCH ×2 (08:35→20:04)
[2018-04-15] MEDS: Heparin - SQ 10,000 UNITS/ML Vial SQ SCH ×2 (08:35→20:03)
[2018-04-15] MEDS: Lipase/Protease/Amylase 24/76/120 DR Capsule PO SCH ×3 (08:35→17:15)
[2018-04-15] MEDS: fentaNYL 10 mcg/mL Premix Drip 2,500 MCG/250 ML BAG IV.SIG PRN ×2 (08:37→17:25)
[2018-04-15] MEDS: Chlorhexidine 0.12% Oral Kit 15 ML UDC OROPHARYNG SCH ×2 (08:37→20:05)
[2018-04-15] MEDS: EPOPROSTENOL NEB SCH ×4 (08:38→17:29)
[2018-04-15] MEDS: SODIUM CHLOR NEB SCH ×4 (08:38→17:29)
[2018-04-15] MEDS: MethylPREDNISolone Sod Succinate Inj 40 MG/ML Vial IV.PUSH SCH (08:38)
[2018-04-15] MEDS ORDERED: Insulin Detemir Inj 1,000 UNIT/10 ML Vial SQ SCH ×2 (09:00→15:37)
--- NOTE | 2018-04-15 09:19 | XR ---
EXAM DATE: 04/15/2018 8:34 AM EDT AGE/SEX: 52 years / Female INDICATIONS: Shortness of breath. CLINICAL DATA: This is the patient's subsequent encounter. Patient reports that signs and symptoms h ave been present for 3 days and indicates a pain score of Nonresponsive. MEDICAL/SURGICAL HISTORY: . Cardiovascular disease. Hypertension. Diabetes mellitus type II. N one. COMPARISON: [facility] [place], CT CHEST W/O CONTRAST, 03/28/2018. . FINDINGS: Endotracheal tube is stable and satisfactory position. Nasogastric tube descends into the stomach. Th ere is a stable pattern of diffuse nodular parenchymal disease, most confluent in the left lung base where the diaphragm is obscured. Cardiac contours are grossly stable. CONCLUSION: Persistent diffuse nodular parenchymal lung disease. Electronically signed by: Isaak Woodward MD 04/15/2018 9:18 AM EDT
[2018-04-15] MEDS: Sod Chloride 0.9% Inj 1,000 ML OTHER SCH (09:53)
--- NOTE | 2018-04-15 12:22 | P.PNNP ---
Subjective Interval history: Remains intubated, sedated. Family at bedside. Renal function is poor but essentially stable overnight. Edema persists. On 75% FiO2 and PEEP 15. <Myrtle Levi - Last Filed: 04/15/18 12:17> Physical Exam Vital signs: Vital Signs 04/14/18 14:00 04/14/18 16:00 04/14/18 16:30 Temperature 99.1 F Pulse Rate 63 61 Respiratory Rate 36 H 20 Blood Pressure 124/60 Pulse Oximetry 99 99 04/14/18 18:00 04/14/18 20:00 04/14/18 20:16 Temperature 98.2 F Pulse Rate 59 L 57 L 64 Respiratory Rate 20 21 Blood Pressure 136/60 Pulse Oximetry 98 04/14/18 20:20 04/14/18 20:59 04/14/18 22:00 Temperature Pulse Rate 60 54 L Respiratory Rate 21 20 Blood Pressure Pulse Oximetry 99 04/14/18 23:55 04/14/18 23:57 04/15/18 00:00 Temperature 98.6 F Pulse Rate 69 66 Respiratory Rate 20 20 20 Blood Pressure 122/82 Pulse Oximetry 94 L 95 04/15/18 02:00 04/15/18 03:25 04/15/18 04:00 Temperature 98.6 F Pulse Rate 59 L 79 71 Respiratory Rate 26 H 20 Blood Pressure 131/58 L Pulse Oximetry 93 L 04/15/18 04:10 04/15/18 06:00 04/15/18 07:28 Temperature Pulse Rate 70 Respiratory Rate 20 26 H Blood Pressure Pulse Oximetry 95 04/15/18 07:30 04/15/18 08:00 04/15/18 10:00 Temperature 99.4 F Pulse Rate 90 101 H 85 Respiratory Rate 26 H 32 H Blood Pressure 137/63 Pulse Oximetry 91 L 04/15/18 10:30 04/15/18 12:00 Temperature 99.1 F Pulse Rate 75 Respiratory Rate 26 H 23 Blood Pressure 160/71 H Pulse Oximetry 97 100 Intake & Output 04/14/18 04/15/18 04/15/18 18:59 06:59 18:59 Intake Total 1324.1 / 1324.1 1615.0 / 1615.0 34.1 / 34.1 Output Total 1875 / 1875 2049 / 2049 Balance -550.9 / -550.9 -435.0 / -435.0 34.1 / 34.1 Weight 125 kg Intake: IV 684.1 / 684.1 975.0 / 975.0 34.1 / 34.1 Versed Inj 50 mg In 50 ml @ 2 134.1 / 134.1 50.0 / 50.0 34.1 / 34.1 MG/HR 2 mls/hr IV.CONT TITRATE PRN Rx#:[id number] Avycaz Inj 2.5 GM In NS Inj 50 100 / 100 50 / 50 ML @ 25 mls/hr IV.SIG Q8H [facility] Rx#:[id number] Vancomycin Inj 2,500 MG In NS 525 / 525 Inj 500 ML @ 250 mls/hr IV.SIG ONCE ONE Rx#:[id number] fentaNYL 10 mcg/mL Premix Drip 250 / 250 250 / 250 2,500 mcg In 250 ml @ 50 MCG/HR 5 mls/hr IV.SIG TITRATE PRN Rx #:[id number] Flolan (30,000 ng/mL) Neb 37.5 200 / 200 100 / 100 ML In NS Inj 62.5 ML @ As Directed NEB Q8H [facility] Rx#: [id number] Oral 0 / 0 Tube Feeding 520 / 520 540 / 540 Water Bolus Amount 120 / 120 100 / 100 Output: Stool 75 / 75 300 / 300 Urine Amount (Catheter) 1800 / 1800 1750 / 1750 Indwelling Urethral Catheter 1800 / 1800 1750 / 1750 Other: Date of Last Bowel Movement 04/14/18 04/15/18 04/15/18 - Constitutional no acute distress, obese - Routine HEENT Exam Head: Present: normocephalic Eye: Present: periorbital swelling - Routine Neck Exam Present: supple, full ROM - Routine Respiratory Exam Present: patient mechanically ventilated, distant breath sounds - Routine Cardiovascular Exam Present: RRR, S1, S2 - Routine Abdominal Exam Present: soft, normoactive bowel sounds - Routine Extremities Exam Present: edema, pulses intact, normal capillary refill, amputation - Routine Skin Exam Present: intact, dry, warm - Routine Neurological Exam sedated, moves to tactile stimuli - Routine Psychiatric Exam Present: unable to assess - Urinary Catheter Management Indwelling Urethral Catheter Cath placed during this visit: yes Urethral indwelling: Yes Reason for continuing: Acute urinary retention Insertion date: 03/18/18 Insertion time: 21:00 <Myrtle Levi - Last Filed: 04/15/18 12:17> Vital signs: Vital Signs 04/15/18 08:00 04/15/18 10:00 04/15/18 10:30 Temperature 99.4 F Pulse Rate 101 H 85 Respiratory Rate 32 H 26 H Blood Pressure 137/63 Pulse Oximetry 91 L 97 04/15/18 12:00 04/15/18 14:00 04/15/18 15:34 Temperature 99.1 F Pulse Rate 75 75 Respiratory Rate 23 20 Blood Pressure 160/71 H Pulse Oximetry 100 99 04/15/18 16:00 04/15/18 17:09 04/15/18 17:25 Temperature 99.6 F 99.6 F 99.1 F Pulse Rate 64 61 62 Respiratory Rate 20 20 Blood Pressure 152/66 H 153/69 H 152/67 H Pulse Oximetry 99 100 100 04/15/18 18:00 04/15/18 19:17 04/15/18 19:28 Temperature Pulse Rate 63 61 60 Respiratory Rate 20 20 Blood Pressure Pulse Oximetry 100 04/15/18 20:00 04/15/18 21:50 04/15/18 22:00 Temperature 99.2 F Pulse Rate 58 L 58 L Respiratory Rate 20 20 Blood Pressure 155/67 H Pulse Oximetry 100 100 04/15/18 23:32 04/16/18 00:00 04/16/18 02:00 Temperature 98.6 F Pulse Rate 55 L 54 L Respiratory Rate 20 20 Blood Pressure 162/73 H Pulse Oximetry 99 99 04/16/18 03:56 04/16/18 04:00 04/16/18 06:00 Temperature 99.2 F Pulse Rate 55 L 58 L Respiratory Rate 20 20 Blood Pressure 136/63 Pulse Oximetry 96 95 Intake & Output 04/15/18 04/16/18 04/16/18 18:59 06:59 18:59 Intake Total 1180.2 / 1180.2 1089.1 / 1089.1 Output Total 2300 / 2300 3000 / 3000 Balance -1119.8 / -1119.8 -1910.9 / -1910.9 Weight 125 kg Intake: IV 518.2 / 518.2 484.1 / 484.1 Versed Inj 50 mg In 50 ml @ 2 68.2 / 68.2 84.1 / 84.1 MG/HR 2 mls/hr IV.CONT TITRATE PRN Rx#:[id number] Avycaz Inj 2.5 GM In NS Inj 50 100 / 100 50 / 50 ML @ 25 mls/hr IV.SIG Q8H [facility] Rx#:[id number] fentaNYL 10 mcg/mL Premix Drip 250 / 250 250 / 250 2,500 mcg In 250 ml @ 50 MCG/HR 5 mls/hr IV.SIG TITRATE PRN Rx #:[id number] Flolan (30,000 ng/mL) Neb 37.5 100 / 100 100 / 100 ML In NS Inj 62.5 ML @ As Directed NEB Q8H [facility] Rx#: [id number] Oral 0 / 0 Tube Feeding 562 / 562 505 / 505 Water Bolus Amount 100 / 100 100 / 100 Intake (Blood Product) Amt 0 / 0 Rbc As-3 Leukoreduced Unit 0 / 0 [id number] Output: Stool 100 / 100 200 / 200 Urine Amount (Catheter) 2200 / 2200 2800 / 2800 Indwelling Urethral Catheter 2200 / 2200 2800 / 2800 Other: Date of Last Bowel Movement 04/15/18 04/16/18 - Urinary Catheter Management Indwelling Urethral Catheter Cath placed during this visit: no <Alverto Fraser - Last Filed: 04/16/18 07:41> Assessment and Plan - Assessment (1) Acute renal failure superimposed on stage 3 chronic kidney disease Code(s): N17.9 - Acute kidney failure, unspecified; N18.3 - Chronic kidney disease, stage 3 (moderate) Status: Acute Plan: Her baseline creatinine runs 1.6-2, GFR 44. YOU most likely due to cardiac arrest and decreased renal perfusion. Her creatinine has remained mostly stable overnight. BUN is very high ( disproportionately elevated) and slightly worse. She is still requiring high oxygen content, has edema. Needs continued diuresis. On Bumex TID 2 mg. She has negative fluid balance. Metolazone on hold She is non oliguric and responding to diuretics. Avoid nephrotoxic agents,dose appropriate to renal status. Minimize non essential medications. She may need dialysis if her renal function further declines. The family wants aggressive treatment. She may need more fluid removal to assist with weening from vent. Overall prognosis is very poor. (2) Acute respiratory failure with hypoxemia Code(s): J96.01 - Acute respiratory failure with hypoxia Status: Acute Plan: ARDS. High oxygen requirement, PEEP 15. Poor prognosis. Management per critical care service. Will need trach soon. (3) Diabetes mellitus type 2 in obese Code(s): E11.69 - Type 2 diabetes mellitus with other specified complication; E66.9 - Obesity, unspecified Status: Chronic Plan: Maintain glucose 140-180mg/dL while hospitalized. Use insulin if needed. (4) Hypertension Code(s): I10 - Essential (primary) hypertension Status: Chronic Plan: Monitor BP. Continue medications as ordered. (5) HCAP (healthcare-associated pneumonia) Code(s): J18.9 - Pneumonia, unspecified organism Status: Acute Plan: ID is following, managing antibiotics. Currently on Avycaz. s/p bronch with cultures reviewed. (6) Diastolic heart failure Code(s): I50.30 - Unspecified diastolic (congestive) heart failure Status: Acute Plan: Monitor fluid status. Continue diuresis. She had an echo previous admission, EF 50%. <Myrtle Levi - Last Filed: 04/15/18 12:17> - Assessment (1) Acute renal failure superimposed on stage 3 chronic kidney disease Code(s): N17.9 - Acute kidney failure, unspecified; N18.3 - Chronic kidney disease, stage 3 (moderate) Status: Acute (2) Acute respiratory failure with hypoxemia Code(s): J96.01 - Acute respiratory failure with hypoxia Status: Acute (3) Diabetes mellitus type 2 in obese Code(s): E11.69 - Type 2 diabetes mellitus with other specified complication; E66.9 - Obesity, unspecified Status: Chronic (4) Hypertension Code(s): I10 - Essential (primary) hypertension Status: Chronic (5) HCAP (healthcare-associated pneumonia) Code(s): J18.9 - Pneumonia, unspecified organism Status: Acute (6) Diastolic heart failure Code(s): I50.30 - Unspecified diastolic (congestive) heart failure Status: Acute - Attending Attestation patient was seen and examined. Agree with above assessment and plan. <Alverto Fraser - Last Filed: 04/16/18 07:41>
[2018-04-15 12:45] LABS: Hematocrit 22.1 % (35.0-46.0); Hemoglobin 7.2 gm/dL (11.6-15.3)
--- NOTE | 2018-04-15 17:31 | P.PNID ---
Subjective Remarks: remains on vent and 80% of FiO2 PEEP15 small amount od secretions no fever no diarrhea sputum growing GNBs Antibiotics: avicaz colistine nebs vancomycin Allergies/Adverse Reactions: Allergies ibuprofen Allergy (Severe, Verified 03/18/18 17:58) MESSES WITH KIDNEYS Sulfa (Sulfonamide Antibiotics) Allergy (Severe, Verified 03/18/18 17:58) HIVES egg Allergy (Intermediate, Verified 03/18/18 17:58) Very Upset Stomach milk Allergy (Unknown, Verified 03/18/18 17:58) Heartburn Objective Vital Signs 04/14/18 18:00 04/14/18 20:00 04/14/18 20:16 Temperature 98.2 F Pulse Rate 59 L 57 L 64 Respiratory Rate 20 21 Blood Pressure 136/60 Pulse Oximetry 98 04/14/18 20:20 04/14/18 20:59 04/14/18 22:00 Temperature Pulse Rate 60 54 L Respiratory Rate 21 20 Blood Pressure Pulse Oximetry 99 04/14/18 23:55 04/14/18 23:57 04/15/18 00:00 Temperature 98.6 F Pulse Rate 69 66 Respiratory Rate 20 20 20 Blood Pressure 122/82 Pulse Oximetry 94 L 95 04/15/18 02:00 04/15/18 03:25 04/15/18 04:00 Temperature 98.6 F Pulse Rate 59 L 79 71 Respiratory Rate 26 H 20 Blood Pressure 131/58 L Pulse Oximetry 93 L 04/15/18 04:10 04/15/18 06:00 04/15/18 07:28 Temperature Pulse Rate 70 Respiratory Rate 20 26 H Blood Pressure Pulse Oximetry 95 04/15/18 07:30 04/15/18 08:00 04/15/18 10:00 Temperature 99.4 F Pulse Rate 90 101 H 85 Respiratory Rate 26 H 32 H Blood Pressure 137/63 Pulse Oximetry 91 L 04/15/18 10:30 04/15/18 12:00 04/15/18 14:00 Temperature 99.1 F Pulse Rate 75 75 Respiratory Rate 26 H 23 Blood Pressure 160/71 H Pulse Oximetry 97 100 04/15/18 15:34 04/15/18 16:00 04/15/18 17:09 Temperature 99.6 F Pulse Rate 64 61 Respiratory Rate 20 20 Blood Pressure 153/69 H Pulse Oximetry 99 100 Intake & Output 04/14/18 04/15/18 04/15/18 18:59 06:59 18:59 Intake Total 1324.1 / 1324.1 1615.0 / 1615.0 84.1 / 84.1 Output Total 1875 / 1875 2049 / 2049 Balance -550.9 / -550.9 -435.0 / -435.0 84.1 / 84.1 Weight 125 kg Intake: IV 684.1 / 684.1 975.0 / 975.0 84.1 / 84.1 Versed Inj 50 mg In 50 ml @ 2 134.1 / 134.1 50.0 / 50.0 34.1 / 34.1 MG/HR 2 mls/hr IV.CONT TITRATE PRN Rx#:[id number] Avycaz Inj 2.5 GM In NS Inj 50 100 / 100 50 / 50 50 / 50 ML @ 25 mls/hr IV.SIG Q8H [facility] Rx#:[id number] Vancomycin Inj 2,500 MG In NS 525 / 525 Inj 500 ML @ 250 mls/hr IV.SIG ONCE ONE Rx#:[id number] fentaNYL 10 mcg/mL Premix Drip 250 / 250 250 / 250 2,500 mcg In 250 ml @ 50 MCG/HR 5 mls/hr IV.SIG TITRATE PRN Rx #:[id number] Flolan (30,000 ng/mL) Neb 37.5 200 / 200 100 / 100 ML In NS Inj 62.5 ML @ As Directed NEB Q8H [facility] Rx#: [id number] Oral 0 / 0 Tube Feeding 520 / 520 540 / 540 Water Bolus Amount 120 / 120 100 / 100 Intake (Blood Product) Amt 0 / 0 Rbc As-3 Leukoreduced Unit 0 / 0 [id number] Output: Stool 75 / 75 300 / 300 Urine Amount (Catheter) 1800 / 1800 1750 / 1750 Indwelling Urethral Catheter 1800 / 1800 1750 / 1750 Other: Date of Last Bowel Movement 04/14/18 04/15/18 04/15/18 04/14/18 18:54 Sputum - Endotracheal Gram Stain - Final 04/14/18 18:54 Sputum - Endotracheal Sputum Culture - Preliminary gram negative rods 03/24/18 16:30 Bronchial Washings - Left Lower Lobe Fungal Smear - Final No fungal elements seen 03/24/18 16:30 Bronchial Washings - Left Lower Lobe Fungal Culture - Preliminary No growth in 3 weeks 03/24/18 16:30 Bronchial Washings - Left Lower Lobe Acid Fast Bacilli Smear - Final No acid fast bacilli seen 03/24/18 16:30 Bronchial Washings - Left Lower Lobe Mycobacterial Culture - Preliminary No growth in 3 weeks Lab - Hematology Results 04/14/18 04/15/18 04/15/18 05:55 04:30 12:20 WBC 12.2 H 10.3 RBC 2.92 L 2.64 L Hgb 7.8 L 7.2 L 7.2 L Hct 23.6 L 21.6 L 22.1 L MCV 80.9 81.6 MCH 26.7 L 27.3 MCHC 33.0 33.5 RDW 23.9 H 24.0 H Plt Count 171 156 MPV 11.0 10.4 Neut % (Auto) 89.0 H 86.4 H Lymph % (Auto) 7.3 L 7.3 L [place] % (Auto) 3.2 5.7 Eos % (Auto) 0.2 0.4 Baso % (Auto) 0.3 0.2 Neut # (Auto) 10.8 H 8.9 H Lymph # (Auto) 0.9 L 0.8 L [place] # (Auto) 0.4 0.6 Eos # (Auto) 0.0 0.0 Baso # (Auto) 0.0 0.0 WBC Differential . . Differential Comment Auto diff final Auto diff final Lab - Chemistry Results 04/13/18 04/14/18 04/14/18 19:51 00:10 03:05 Sodium Potassium Chloride Carbon Dioxide Anion Gap BUN Creatinine Estimated GFR POC Glucose 247 H 302 H 253 H Random Glucose Calcium 04/14/18 04/14/18 04/14/18 05:50 07:33 11:29 Sodium 138 Potassium 3.5 Chloride 94 L Carbon Dioxide 32.7 H Anion Gap 11 BUN 162 H Creatinine 1.75 H Estimated GFR 37 L POC Glucose 148 H 214 H Random Glucose 145 H D Calcium 10.0 04/14/18 04/14/18 04/14/18 16:40 19:47 23:47 Sodium Potassium Chloride Carbon Dioxide Anion Gap BUN Creatinine Estimated GFR POC Glucose 331 H 350 H 330 H Random Glucose Calcium 08/15/18 08/15/18 08/15/18 04:24 04:30 07:19 Sodium 140 Potassium 3.5 Chloride 96 L Carbon Dioxide 32.3 H Anion Gap 12 BUN 166 H Creatinine 1.81 H Estimated GFR 35 L POC Glucose 263 H 289 H Random Glucose 262 H D Calcium 9.5 04/15/18 04/15/18 11:26 15:34 Sodium Potassium Chloride Carbon Dioxide Anion Gap BUN Creatinine Estimated GFR POC Glucose 267 H 336 H Random Glucose Calcium Imaging: ITS Impressions Head CT 03/18/18 18:46 CONCLUSION: 1. Solitary 3 mm hyperdensity in the central [place] of uncertain significance. Differential considerations include a punctate calcification and acute hemorrhage. 2. No acute findings in the supratentorial brain. Head MRI 03/19/18 00:00 CONCLUSION: 1. No evidence of brainstem hemorrhage. 2. Small foci of encephalomalacia in the left occipital lobe and right cerebellum 3. No evidence of acute infarct, hemorrhage, mass or edema. 4. No evidence of enhancing intra-axial or extra-axial lesions. Venous Doppler Study 03/19/18 00:00 CONCLUSION: The study is negative for bilateral lower extremity deep venous thrombosis. Foot X-Ray 03/22/18 00:00 CONCLUSION: No acute bony destructive change. Previous amputations as above. Fairly marked soft tissue swelling of the forefoot. Abdomen X-Ray 03/26/18 00:00 CONCLUSION: Abdomen/Pelvis CT 03/28/18 00:00 CONCLUSION: 1. Minimal increase in the trace bilateral pleural effusions with compressive atelectasis in both bases. 2. Gallstones in a benign-appearing gallbladder 3. I don't see evidence for colitis. 4. I don't see inflammatory changes in the abdomen. Chest CT 03/28/18 00:00 CONCLUSION: 1. Biventricular cardiomegaly with coarse interstitial changes in both lungs. A component of this could be failure 2. Trace bilateral pleural effusions larger on the right.. These have decreased slightly in the interval. Foot MRI 03/28/18 00:00 CONCLUSION: 1. Difficult exam to interpret because of extensive soft tissue swelling. No obvious osteomyelitis. 2. Nuclear medicine tagged white cell study may help. Chest X-Ray 04/15/18 00:00 CONCLUSION: Persistent diffuse nodular parenchymal lung disease. Physical Exam: no acute distress, morbidly obese Head: Present: normocephalic, atraumatic, prominent facial swelling Eye: Present: improved periorbital swelling ENT: Present: mucous membranes moist, oropharynx clear NECK: trachea midline LUNGs: patient mechanically ventilated, fairly clear Cardiovascular : RRR, S1, S2 no murmurs, rubs , gallops Abdominal : soft, less distended no reaction to palpation, no audible bowel sounds no palpable organomegaly liquid stool in rectal collection system : hernandez in place with clear light yellow urine hernandez in place with small amount of clear yellow urine Extremities: edema improved, less prominent 1-2 prominent tree bark meeks Skin : intact, dry, no rash well perfused Neurological : sedated Psychiatric : unable to assess LINE: R IJ removed Assessment and Plan - Plan sp cardiac arrest Anaerobic sepsis; veillonella ? source : GI vs osteo CT and MRI diid not reveal source of her anaerobic sepsis Xrays negative, CT/MR not feasible 2/2 clincial cond'n Acute VDRF, increasing vent requirement s - difficulty weaning PNA, ESBL/ ? [facility] Kleb R to zerbaxa, S acvycaz and vabomere worsening CXR worsening oxygenation Persiastently growing GNB in the sputum YOU - stable she is doing worse Persistent leukocytosis - much worse Anemia, new. No clincially apparent bleed - Prognosis is poorr due to progressive resp failure survival of this hospitalisation is not expected - cont avycaz, colistine nebs and vancomycin - adjsut dose per renal fnx - fu repeat sputum clx S to additional abx - monitor WBC CXR in am jeanne RN dw CCM attending
[2018-04-15 23:08] LABS: Hematocrit 24.5 % (35.0-46.0)
[2018-04-16] MEDS: Midazolam 50 MG/50 ML Inj 50 MG/50 ML BAG IV.CONT PRN ×5 (00:07→23:17)
[2018-04-16] MEDS: Oral Hygiene Kit OROPHARYNG SCH ×4 (00:08→16:00)
[2018-04-16] MEDS: Insulin NovoLIN Regular Correctional Sugar Inj SQ SCH ×6 (00:08→20:27)
[2018-04-16] MEDS: Hypromellose 0.3% Opth Gel 10 GM Bottle EACH EYE SCH ×3 (03:55→20:23)
[2018-04-16] MEDS: EPOPROSTENOL NEB SCH ×2 (03:57→17:19)
[2018-04-16] MEDS: SODIUM CHLOR NEB SCH ×2 (03:57→17:19)
[2018-04-16] MEDS: fentaNYL 10 mcg/mL Premix Drip 2,500 MCG/250 ML BAG IV.SIG PRN ×3 (04:13→19:28)
[2018-04-16 04:27] LABS: Baso % (Auto) 0.2 % (0.0-2.0); Eos % (Auto) 0.3 % (0.0-4.0); Hematocrit 24.4 % (35.0-46.0); Hemoglobin 8.1 gm/dL (11.6-15.3); Lymph # (Auto) 0.9 th/mm3 (1.0-4.8); Lymph % (Auto) 7.3 % (9.0-44.0); Mean Corpuscular HGB Conc 33.1 % (32.0-36.0); Mean Corpuscular Hemoglobin 27.1 pg (27.0-34.0); Mean Corpuscular Volume 81.9 fL (80.0-100.0); Mean Platelet Volume 10.1 fL (7.0-11.0); Mono # (Auto) 0.5 th/mm3 (0.0-0.9); Mono % (Auto) 4.5 % (0.0-8.0); Neut # (Auto) 10.2 th/mm3 (1.8-7.7); Neut % (Auto) 87.7 % (16.0-70.0); Platelet Count 158 th/mm3 (150-450); Red Blood Count 2.98 mil/mm3 (4.00-5.30); Red Cell Distribution Width 21.4 % (11.6-17.2); White Blood Count 11.6 th/mm3 (4.0-11.0)
[2018-04-16 04:47] LABS: Vancomycin,Random 21.7 Comment
[2018-04-16 04:54] LABS: Calcium 9.8 mg/dL (8.5-10.1); Carbon Dioxide 32.3 meq/L (21.0-32.0); Potassium 3.2 meq/L (3.5-5.1)
[2018-04-16] MEDS: QUEtiapine 25 MG Tablet PO SCH ×3 (05:41→21:26)
[2018-04-16] MEDS: Ceftazidime/Avibactam Inj 2.5 GM in Sodium Chlor 0.9% Inj 50 ML IV.SIG SCH ×3 (05:41→21:32)
--- NOTE | 2018-04-16 06:06 | XR ---
EXAM DATE: 04/16/2018 5:48 AM EDT AGE/SEX: 52 years / Female INDICATIONS: Shortness of breath, possible pulmonary disease. CLINICAL DATA: This is the patient's subsequent encounter. Patient reports that signs and symptoms h ave been present for 1 month and indicates a pain score of Nonresponsive. MEDICAL/SURGICAL HISTORY: Cardiovascular disease. Hypertension. Diabetes mellitus type II. No ne. COMPARISON: [facility] – [place] 1V SINGLE AP, 04/15/2018. . FINDINGS: The ET tube and NG tube are well placed. There is diffuse mixed interstitial alveolar density seen th roughout the lungs. The heart size is normal. CONCLUSION: Diffuse consolidation likely related to diffuse edema. Electronically signed by: Isaak Hong MD 04/16/2018 6:05 AM EDT
[2018-04-16] MEDS ORDERED: Insulin Detemir Inj 1,000 UNIT/10 ML Vial SQ SCH (08:56)
--- NOTE | 2018-04-16 09:03 | P.PNCC ---
Subjective Subjective Remarks/Hospital Course: 52-year-old female with past medical history of diabetes mellitus, hypertension, hyperlipidemia, atrial fibrillation on chronic anticoagulation with warfarin, chronic diastolic heart failure, asthma, WISAM, peripheral vascular disease, super morbid obesity. She has been at [facility] since 03/02/18. Abeba JACOBO was called due to respiratory distress. When they arrived as she was found to be in respiratory distress with sats in the 70s. She was communicating with them and reportedly said "leave me alone". She then had PEA arrest. She received CPR reportedly 10-15 minutes and received 2 doses of epinephrine. LMA was placed by EVAC. LMA was removed and she was intubated by Dr. Daly after receiving etomidate 20 mg IV and succinylcholine. She has demonstrated purposeful movements post intubation, and is now on a propofol drip. She was recently admitted to [facility] 02/24-03/02 due to hypoglycemia, fall after isolated episode of diarrhea, hypoxia requiring HFNC. She has chronic interstitial changes on CXR. Reviewed records from [facility] which indicate she completed a 7 day course of Levaquin and has been on a prednisone taper. Current CXR shows bibasilar opacities. WBC is 16 ( previously 7.9). She has acute hypercapneic and hypoxemic respiratory failure. 03/19: Afebrile. Remains on 100% FiO2 PEEP of 12. Central has been placed for access due to multiple drips. Plan MRI brain today if respiratory status improves. Does not tolerate lying flat. Likely will need epoprostenol and rotaprone 03/20: Started on epoprostenol and currently on a rotor from bed. Currently on cisatracurium drip at 1 mcg/kg/min. Diuresing well. 03/21: Weaning down epoprostenol. Remains on cisatracurium drip at 6 mcg/kg/ min. Diuresis 6 L. Saturation was improved FiO2 down to 45%. 03/22: Hypothermic overnight. Currently euthermic. Excellent response to bumetanide drip. FiO2 down to 40%. PEEP down to 8. Possible discontinue paralytic agent today. 03/23: Resting comfortable in bed in no acute distress. Afebrile. Desaturated so placed back on rotor prone bed. Creatinine slowly increasing. 03/24: Afebrile. Worsening chest x-ray it appears to be volume overloaded again. +10 L past 24 hours. Will restart on bumetanide drip. Plan for bronchoscopy today. Switch to ceftazidime/avibactam secondary to ESBL positive Klebsiella pneumonia 03/25: FiO2 to 55%. Tolerating demanding drip with -2 L past 24 hours. Bronchoscopy results pending. Positive BM. Restarting tube feeding today 03/26: Cr continues to rise, although clinically continues to appear severely volume overloaded. fio2 70%. supine all night. off nimbex. off flolan. ID managing ESBL/MDRO/KPC Klebsiella and anaerobic bacteremia. 03/27: off rotaprone bed. multiple desat episodes overnight. on 100% fio2 and PEEP 10 this AM. good diuresis with net -2L/24h. bumex drip continues. awakens and follows commands. 03/28: not diuresing as well as yesterday. wbc uptrending. 2 more episodes of bradycardia, not associated with hypoxia. however, fio2 remains severely elevated. I increased her peep to 14. still arouses and moves all extremities. high concern for ongoing infectious etiology, but with high o2 requirements and intermittent bradycardia requiring atropine, at present too unstable for repeat imaging. 03/29: ct C/A/P without overt infectious source. does demonstrate radiographic evidence of biventricular dysfunction. bedside echo today demonstrates the same , and dilated IVC without respiratory variation. off vasopressors. required atropine for a HR of 15 once overnight. still very hypoxic: changed to APRV 5:1 , 28/0, 4/0.8. 03/30: remains on APRV with hypoxia. multiple episodes of bradycardia and a 18 second pause yesterday. trialed on dobutamine but with multiple dysrhythmias. now on low-dose dopamine to mitigate bradycardia. adequate diuresis overnight. cxr improving slightly. still remains volume overloaded, and YOU persists. 03/31: mild improvements in fio2. remains on APRV. no more bradycardia today. still on dopamine to prevent pauses/bradycardia. YOU persists, but stable. unable to diurese yesterday and now net +2L despite fluid overload. must increase forced diuresis to improve hypoxemia. 04/01: Remains sedated, orally intubated on mechanical ventilation. Being diuresed. Started on Reglan in view of high gastric residuals and decreasing fentanyl as tolerated. 04/02: Remains sedated, orally intubated on APRV mode mechanical ventilation. 04/03: Remains sedated, orally intubated on mechanical ventilation. Awaiting family meeting with palliative care to decide goals of therapy. Being diuresed. 04/04: Remains sedated, orally intubated on mechanical ventilation. Switch to PRVC mode overnight. On 50% FiO2, PEEP +8. Family deciding regarding goals of therapy. 04/05: Remains sedated, orally intubated on mechanical ventilation. PEEP increased to +10 overnight due to hypoxia. 04/06: Remains sedated, orally intubated on mechanical ventilation. Worsening oxygenation since yesterday. Chest x-ray showed fluid overload. Resume Bumex twice daily yesterday in addition to Zaroxolyn PO. 04/07: Remains sedated, orally intubated on mechanical ventilation. Diuresed. Renal function remains a concern. Started on colistin nebs per ID due to very resistant organisms in sputum. Eventually needs tracheostomy and PEG tube placement. 04/08 Patient remains sedated with Versed and Fentanyl infusion. On Cardene drip.Had T:99.7 last night. Remains on high PEEP and FIO2( PEEP:15, FIO2: 65%) 04/09 Patient is intubated with Versed and Fentanyl drips. Tmax 100.3. Now on PRVC with PEEP:12 and FIO2 100% 04/10 Patient is sedated with Fentanyl and Versed drips. Flolan started yesterday. On PRVC with PEEP: 15 and FIO2 100%. Afebrile. 04/11 Patient was hypoxic overnight with [id number]'s given Rocuronium 100mg IV for desaturation and vent synchrony remains on high PEEP15 with 100%FIO2. Sedated with Versed and Fentanyl drips. CXR this morning shows diffuse b/l infiltrates severe in lower lung zones. 04/12 Patient remains sedated and intubated and on Flolan. Afebrile. 04/13 Patient remains sedated with Versed and Fentanyl and intubated. Afebrile. On Flolan . On PRVC with PEEP: 15, FIO2 down 70%. 04/14 Patient had another episode of desaturation overnight now on PRVC with PEEP :15 and 100% FIO2. T:99.7 last night. Sedated with Versed/Fentanyl drips. On Flolan 04/15 Patient remans sedated with Fentanyl, Versed and intubated. Afebrile. On PRVC with PEEP:15 and FIO2 75%. SUBJECTIVE 04/16: Intubation day #29. Afebrile. FiO2 increased to 100%. More secretions. Will need to paralyze with cisatracurium drip for vent synchrony as patient is currently out of peeping despite maximum midazolam and fentanyl drips. Remains on epoprostenol Objective Vital Signs / I&O: Vital Signs 04/15/18 10:00 04/15/18 10:30 04/15/18 12:00 Temperature 99.1 F Pulse Rate 85 75 Respiratory Rate 26 H 23 Blood Pressure 160/71 H Pulse Oximetry 97 100 04/15/18 14:00 04/15/18 15:34 04/15/18 16:00 Temperature 99.6 F Pulse Rate 75 64 Respiratory Rate 20 20 Blood Pressure 152/66 H Pulse Oximetry 99 99 04/15/18 17:09 04/15/18 17:25 04/15/18 18:00 Temperature 99.6 F 99.1 F Pulse Rate 61 62 63 Respiratory Rate 20 Blood Pressure 153/69 H 152/67 H Pulse Oximetry 100 100 04/15/18 19:17 04/15/18 19:28 04/15/18 20:00 Temperature 99.2 F Pulse Rate 61 60 58 L Respiratory Rate 20 20 20 Blood Pressure 155/67 H Pulse Oximetry 100 100 04/15/18 21:50 04/15/18 22:00 04/15/18 23:32 Temperature Pulse Rate 58 L Respiratory Rate 20 20 Blood Pressure Pulse Oximetry 100 99 04/16/18 00:00 04/16/18 02:00 04/16/18 03:56 Temperature 98.6 F Pulse Rate 55 L 54 L Respiratory Rate 20 20 Blood Pressure 162/73 H Pulse Oximetry 99 96 04/16/18 04:00 04/16/18 06:00 04/16/18 07:38 Temperature 99.2 F Pulse Rate 55 L 58 L 58 L Respiratory Rate 20 20 Blood Pressure 136/63 Pulse Oximetry 95 94 L 04/16/18 08:08 Temperature Pulse Rate 62 Respiratory Rate 20 Blood Pressure Pulse Oximetry Intake & Output 04/15/18 04/16/18 04/16/18 18:59 06:59 18:59 Intake Total 1180.2 / 1180.2 1089.1 / 1089.1 Output Total 2300 / 2300 3000 / 3000 Balance -1119.8 / -1119.8 -1910.9 / -1910.9 Weight 125 kg Intake: IV 518.2 / 518.2 484.1 / 484.1 Versed Inj 50 mg In 50 ml @ 2 68.2 / 68.2 84.1 / 84.1 MG/HR 2 mls/hr IV.CONT TITRATE PRN Rx#:[id number] Avycaz Inj 2.5 GM In NS Inj 50 100 / 100 50 / 50 ML @ 25 mls/hr IV.SIG Q8H [facility] Rx#:[id number] fentaNYL 10 mcg/mL Premix Drip 250 / 250 250 / 250 2,500 mcg In 250 ml @ 50 MCG/HR 5 mls/hr IV.SIG TITRATE PRN Rx #:[id number] Flolan (30,000 ng/mL) Neb 37.5 100 / 100 100 / 100 ML In NS Inj 62.5 ML @ As Directed NEB Q8H [facility] Rx#: [id number] Oral 0 / 0 Tube Feeding 562 / 562 505 / 505 Water Bolus Amount 100 / 100 100 / 100 Intake (Blood Product) Amt 0 / 0 Rbc As-3 Leukoreduced Unit 0 / 0 [id number] Output: Stool 100 / 100 200 / 200 Urine Amount (Catheter) 2200 / 2200 2800 / 2800 Indwelling Urethral Catheter 2200 / 2200 2800 / 2800 Other: Date of Last Bowel Movement 04/15/18 04/16/18 Result Diagrams: 04/16/18 03:51 04/16/18 03:51 Other Results: Microbiology 04/14/18 18:54 Sputum - Endotracheal Gram Stain - Final 04/14/18 18:54 Sputum - Endotracheal Sputum Culture - Preliminary gram negative rods 03/24/18 16:30 Bronchial Washings - Left Lower Lobe Fungal Smear - Final No fungal elements seen 03/24/18 16:30 Bronchial Washings - Left Lower Lobe Fungal Culture - Preliminary No growth in 3 weeks 03/24/18 16:30 Bronchial Washings - Left Lower Lobe Acid Fast Bacilli Smear - Final No acid fast bacilli seen 03/24/18 16:30 Bronchial Washings - Left Lower Lobe Mycobacterial Culture - Preliminary No growth in 3 weeks 04/10/18 13:05 Sputum - Endotracheal Gram Stain - Final 04/10/18 13:05 Sputum - Endotracheal Sputum Culture - Final Heavy growth normal respiratory jennifer 04/04/18 15:44 Sputum - Endotracheal Gram Stain - Final 04/04/18 15:44 Sputum - Endotracheal Sputum Culture - Final Klebsiella pneumoniae ESBL pos Multidrug Resistant 03/26/18 15:51 Blood - Peripheral Aerobic Blood Culture - Final No growth in 5 days 03/26/18 15:51 Blood - Peripheral Anaerobic Blood Culture - Final No growth in 5 days 03/26/18 14:39 Blood - Peripheral Aerobic Blood Culture - Final No growth in 5 days 03/26/18 14:39 Blood - Peripheral Anaerobic Blood Culture - Final No growth in 5 days 03/26/18 16:21 Catheterized Urine Urine Culture - Final No growth in 48 hours 03/26/18 17:33 Stool Stool Occult Blood (NORIS) - Final Hemoccult positive 03/24/18 16:30 Bronchial - Left Lower Lobe Gram Stain - Final 03/24/18 16:30 Bronchial - Left Lower Lobe Bronchial Culture - Final Klebsiella pneumoniae Multidrug Resistant 03/20/18 09:40 Blood - Line Aerobic Blood Culture - Final No growth in 5 days 03/20/18 09:40 Blood - Line Anaerobic Blood Culture - Final No growth in 5 days 03/22/18 22:00 Sputum - Endotracheal Gram Stain - Final 03/22/18 22:00 Sputum - Endotracheal Sputum Culture - Final Klebsiella pneumoniae ESBL pos Multidrug Resistant Carba [employer]: Positive 03/18/18 18:15 Blood - Peripheral Aerobic Blood Culture - Final No growth in 5 days 03/18/18 18:15 Blood - Peripheral Anaerobic Blood Culture - Final Veillonella species 03/18/18 18:00 Blood - Peripheral Aerobic Blood Culture - Final No growth in 5 days 03/18/18 18:00 Blood - Peripheral Anaerobic Blood Culture - Final Veillonella species Imaging: Chest X-Ray 03/18/18 17:52 CONCLUSION: 1. ET tube in good position. 2. Increasing patchy areas of consolidation in both lower lungs. Chest CT 03/18/18 18:46 CONCLUSION: 1. Bilateral multi segmental consolidation in the mid and lower lungs and small bilateral pleural effusions. 2. Several enlarged middle mediastinal lymph nodes. Head CT 03/18/18 18:46 CONCLUSION: 1. Solitary 3 mm hyperdensity in the central [place] of uncertain significance. Differential considerations include a punctate calcification and acute hemorrhage. 2. No acute findings in the supratentorial brain. Head MRI 03/19/18 00:00 CONCLUSION: 1. No evidence of brainstem hemorrhage. 2. Small foci of encephalomalacia in the left occipital lobe and right cerebellum 3. No evidence of acute infarct, hemorrhage, mass or edema. 4. No evidence of enhancing intra-axial or extra-axial lesions. Venous Doppler Study 03/19/18 00:00 CONCLUSION: The study is negative for bilateral upper extremity deep venous thrombosis. Venous Doppler Study 03/19/18 00:00 CONCLUSION: The study is negative for bilateral lower extremity deep venous thrombosis. Chest X-Ray 03/19/18 07:33 CONCLUSION: 1. Lines and tubes as detailed above without pneumothorax. 2. Radiographic pattern most consistent with pulmonary edema. This is unchanged. Chest X-Ray 03/20/18 06:00 CONCLUSION: No significant change. Chest X-Ray 03/21/18 05:14 CONCLUSION: Decreased bilateral pulmonary opacity suggesting decreased pulmonary edema. Abdomen X-Ray 03/22/18 00:00 CONCLUSION: Mild ileus. NG tip in stomach. Foot X-Ray 03/22/18 00:00 CONCLUSION: No acute bony destructive change. Previous amputations as above. Fairly marked soft tissue swelling of the forefoot. Chest X-Ray 03/22/18 06:00 CONCLUSION: Increased left mid lung pulmonary consolidation versus atelectasis. Chest X-Ray 03/23/18 06:00 CONCLUSION: Worsening patchy airspace disease, particularly in the left hemithorax. Life support tubes are stable in position Chest X-Ray 03/24/18 00:00 CONCLUSION: Mild interval improvement in bilateral pulmonary infiltrates. Chest X-Ray 03/24/18 06:00 CONCLUSION: Worsening bilateral pulmonary infiltrates, particularly in the right upper lobe Chest X-Ray 03/25/18 00:00 CONCLUSION: 1. No significant change in the bilateral pulmonary infiltrates most characteristic of pulmonary edema. Chest X-Ray 03/25/18 06:00 CONCLUSION: 1. Stable biapical airspace disease with left basilar consolidation and possible effusion. 2. Stable position of life-support tubes. Abdomen X-Ray 03/26/18 00:00 CONCLUSION: Abdomen/Pelvis CT 03/28/18 00:00 CONCLUSION: 1. Minimal increase in the trace bilateral pleural effusions with compressive atelectasis in both bases. 2. Gallstones in a benign-appearing gallbladder 3. I don't see evidence for colitis. 4. I don't see inflammatory changes in the abdomen. Chest CT 03/28/18 00:00 CONCLUSION: 1. Biventricular cardiomegaly with coarse interstitial changes in both lungs. A component of this could be failure 2. Trace bilateral pleural effusions larger on the right.. These have decreased slightly in the interval. Foot MRI 03/28/18 00:00 CONCLUSION: 1. Difficult exam to interpret because of extensive soft tissue swelling. No obvious osteomyelitis. 2. Nuclear medicine tagged white cell study may help. Chest X-Ray 03/30/18 07:48 CONCLUSION: Improving upper lobe aeration with decreasing consolidation and congestion. Stable supportive devices. Chest X-Ray 04/01/18 05:00 CONCLUSION: Bilateral airspace opacities which are increased in the right lung base. Chest X-Ray 04/04/18 05:00 CONCLUSION: Persistent partially consolidated infiltrates the mid and lower lungs bilaterally. Chest X-Ray 04/05/18 16:00 CONCLUSION: Bilateral airspace disease has worsened slightly since April 04. Endotracheal tube, nasogastric tube and right central line unchanged. Chest X-Ray 04/08/18 05:00 CONCLUSION: No interval change. Chest X-Ray 04/10/18 03:56 CONCLUSION: Stable chest x-ray with bilateral lower lung zone airspace consolidation. Chest X-Ray 04/11/18 05:17 CONCLUSION: Stable chest x-ray with diffuse bilateral airspace consolidation that is more severe in the lower lung zones. Chest X-Ray 04/13/18 08:26 CONCLUSION: 1. No significant interval change. 2. Stable diffuse interstitial prominence. 3. Stable bilateral lower lung zone airspace disease. Chest X-Ray 04/15/18 00:00 CONCLUSION: Persistent diffuse nodular parenchymal lung disease. Chest X-Ray 04/16/18 00:00 CONCLUSION: Diffuse consolidation likely related to diffuse edema. Objective Remarks: GENERAL: 52 YO AAF critically ill currently orotracheally intubated SKIN: Warm and dry. HEAD: Normocephalic. EYES: Disconjugate. Left eye leftward gaze. Pupils are round 2 mm bilaterally and reactive. No scleral icterus. No injection or drainage. NECK: Supple, trachea midline. No JVD or lymphadenopathy. CARDIOVASCULAR: Regular rate and rhythm. S1, S2 predose for without murmur without murmurs, gallops, or rubs. RESPIRATORY: B breath sounds throughout. No wheezing. GASTROINTESTINAL: Abdomen soft, non-tender, nondistended. MUSCULOSKELETAL: + Peripheral edema. Neuro: sedated and intubated. Positive weak gag and cough. Positive corneal reflex. Does not withdraw to pain. Assessment and Plan - Assessment and Plan Plan: NEURO/PSYCH: Acute encephalopathy - secondary to hypercapnia, improving. Abnormal brain CT with 3 mm hyperdensity in central [place] Major depressive disorder NOS Chronic opioid use Encephalomalacia right cerebellum/left occipital lobe Currently on scheduled oxycodone 20mg po q4h Quetiapine 50mg po q8h for delirium. Continue with midazolam drip at 12 mg an hour and fentanyl drip at 350 mg an hour for sedation/analgesia while intubated Start cisatracurium drip for vent synchrony Monitor neuro status. Daily sedation vacation when clinically appropriate.. Followup MRI brain 03/19 - No evidence of brainstem hemorrhage. Small foci of encephalomalacia in the left occipital lobe and right cerebellum. No evidence of acute infarct, hemorrhage, mass or edema. No evidence of enhancing intra- axial or extra-axial lesions. RESP: Acute hypercapnic and hypoxemic respiratory failure Severe ARDS Acute asthma exacerbation Healthcare associated pneumonia WISAM/OHS Prior tobacco abuse Bilateral pleural effusions right 2.2 cm. Left 1.3 cm LMA was placed in the field by EVAC. Intubated in ED 03/18. Intubation day #30 Continue with vent support keep sats >92% On albuterol/ipratropium aerosols every 6 hours with albuterol aerosols every 2 hours as needed for dyspnea Weaned off epoprostenol 03/23. Flolan 30,000 ng/ml resumed 04/09 currently at 50, 000 ng/mL On PRVC RR 20, TV 550, IT:1.10, PEEP:15, FIO2: 100% On methylprednisolone succinate 40mg IV daily, CXR ordered for a.m. 04/17 with ABG CV: Hypertension Hyperlipidemia Chronic diastolic heart failure Paroxysmal atrial fibrillation on chronic anti-coagulation with warfarin Peripheral vascular disease/peripheral arterial disease Elevated troponin intermittent bradycardia Cor pulmonale biventricular dysfunction Monitor HR and BP keep MAP>65mmHg 2D echo 02/24/18ejection fraction 50%. Wall thickness upper limits of normal. Trace MR. Continue atorvastatin 40 mg daily for dyslipidemia Doppler bilateral upper and lower extremities revealed no acute thrombus amlodipine 10mg po daily discontinued per nephrology's request hydralazine 100mg po q8h, Clonidine 0.2 mg q. 7 days patch, carvedilol 3.125 mg BID, GI: History of GERD Chronic pancreatitis insufficiency Hypoalbuminemia vital high-protein @45 cc an hour per GIs recommendation Famotidine for GI prophylaxis Docusate sodium/senna 1 tablet twice daily for bowel regimen Creon home medication 3 times daily FEN/RENAL: Acute kidney injury superimposed on CKD Chronic kidney disease stage III Acute severe intravascular volume overload with pulmonary edema [place] catheter was placed in the emergency department. Monitor renal function, I/O's, avoid nephrotoxins On Bumex 2mg TID, Zaroxolyn 5mg Q12 Cr: 1.81 today from 1.75 Renal is following- Dr. Fraser ID: Acute healthcare associated pneumonia -ESBL positive Klebsiella pneumonia Veillonella species bacteremia Continue with abx per ID (ceftazidime/avibactam, Colistin nebs,) Monitor for signs of infections ( Fever, WBC) 04/10 Sputum: Normal resp jennifer Blood cultures 2 03/18 Veillonella spp. Repeat 03/20 no growth to date Sputum, ESBL positive Klebsiella pneumonia 04/04 Sputum 04/14 gram-negative rhona Pneumococcal urinary antigens, influenza a and B and chlamydia and mycoplasma all pending/negative HEME: Leukocytosis Chronic anemia/normocytic Monitor CBC daily. No indication for transfusion of blood products at this time. ENDO: Diabetes mellitus History of gout SSI q4h high scale Increase insulin detemir to 35 units subcu twice daily. 105 units with sliding scale insulin past 24 hours Holding glipizide 10 mg twice daily and insulin glargine/home medication Holding allopurinol 300 mg daily/home medication MSK: Elevated BMI Osteoporosis/osteoarthritis PT evaluate and treat PROPH: SCDs for DVT prophylaxis. Heparin SQ ACCESS: Peripheral IV, right femoral central line placed 04/14 Doppler US B/l Upper and lower EXT negative for DVT on 03/19 Palliative care is following Critical care time 30 minutes, exclusive of separately billed procedures.
[2018-04-16] MEDS: MethylPREDNISolone Sod Succinate Inj 40 MG/ML Vial IV.PUSH SCH (09:12)
[2018-04-16] MEDS: Famotidine 20 MG Tablet PO SCH ×2 (09:13→20:21)
[2018-04-16] MEDS: Heparin - SQ 10,000 UNITS/ML Vial SQ SCH ×2 (09:13→20:21)
[2018-04-16] MEDS: Lipase/Protease/Amylase 24/76/120 DR Capsule PO SCH ×3 (09:14→17:18)
[2018-04-16] MEDS: Senna/Docusate Sodium 8.6/50 MG Tablet PO SCH ×2 (09:15→20:21)
[2018-04-16] MEDS: Chlorhexidine 0.12% Oral Kit 15 ML UDC OROPHARYNG SCH ×2 (09:18→20:22)
[2018-04-16] MEDS: Cisatracurium Inj 100 MG in Sodium Chlor 0.9% Inj 240 ML IV.CONT PRN ×2 (11:58→21:26)
[2018-04-16] MEDS: Insulin Detemir Inj 1,000 UNIT/10 ML Vial SQ SCH ×2 (11:59→20:20)
[2018-04-16] MEDS ORDERED: Potassium Chloride 25 MEQ Effervescent Tablet PO ONE (13:15)
--- NOTE | 2018-04-16 14:07 | P.DIET ---
Nutritional Evaluation Type of nutrition evaluation: follow-up Nutrition consult regarding: Tube Feeding Nutrition screening: [facility] Objective - Diagnosis Cardiac Arrest - Objective % IBW: 275 (IBW = 100#) Body Weight Used for Calculations: IBW (45.5kg) Energy Needs - Lower Range (kCal/kg): 25 Energy Needs - Upper Range (kCal/kg): 30 Lower Limit kCal/kg (kCals): 1,138 Upper Limit kCal/kg (kCals): 1,365 Lower Limit Protein Factor (Grams per Kg): 2.0 Upper Limit Protein Factor (Grams per Kg): 2.5 Lower Protein Needs (Protein): 91 Upper Protein Needs (Protein): 114 Dietitian Reviewed in Medical Record: Curent medications, Intake & Output, Labs , Tube feeding, Wound/DTI Diet Order: TF only Objective Comments: PMH: DM, HTN, HLD, Afib, Diastolic heart failure WISAM, PVD, CKD Stage III, GERD, chronic pancreatitis, super morbid obesity Labs include: glu 264, BUN/creat 154/1.74, Est GFR 37 Meds include: Creon, Lipitor, Levemir, Fentanyl, Versed, Novolin R, Solumedrol, Vit D3, Bumex Feeding - Current Tube Feeding Tube Feeding Product: Vital High Protein Tube Feeding Method: Pump Tube Feeding Rate: 45 Current kCals Provided by Tube Feedin,080 Current Protein Provided by Tube Feeding (gPRO): 95 Current Free H2O Provided (m/l): 923 Assessment Assessment: Pt at nutritional risk 2' to current clinical status and the need for TF for nutrition support. Pt remains intubated and sedated on fentanyl and versed. Pt' s nutritional needs as assessed above using ASPEN and SCCM guidelines for protein needs. To meet pt's nutritional needs, a goal rate of 55 ml/hr is needed. TF will provide a total of 1320 kcals, 116 gms protein and 1104 mls free water. Reviewed Palliative Care note, family continues to want aggressive care. Pt remains critically ill. Nephrology indicates dialysis maybe needed. CBW = 125 kg. Recommendations: Vital High Protein @ 55 mls/hr goal Dietitian to Monitor: Renal labs, Glucose level, Intake & Output, Tube feeding tolerance, Weight change, Wound/skin status, Medical course
--- NOTE | 2018-04-16 15:56 | P.PNPAL ---
Reason for Visit Reason for visit: a. To assist with evaluation and management of symptoms including: dyspnea, pain. b. To assist medical decision maker(s) with: better understanding of current medical conditions; weighing benefits/burdens of medical treatment options; making medical treatment decisions. Subjective Subjective/Interval History: Discussed case with nursing staff. Nurses report patient has remained unresponsive. Patient remains critically ill on [facility] ventilation, PEEP 15 and FiO2 90%. She is requiring paralytic for vent asynchrony despite Versed (12mg) and Fentanyl ( 350mcg) drips. No signs of pain given high level of sedation and paralytic. Clinical data: * HR 50's, RR 20, oxygen saturation 99% * WBC 11.6, hemoglobin 8.1, hematocrit 24.4, platelets 158, neutrophils 87.7% * Sodium 140, potassium 3.2, chloride 96, carbon dioxide 32.3, BUN 154, creatinine 1.74, GFR 37, calcium 9.8 * 04/14/18 - sputum culture again + Klebsiella pneumoniae ESBL positive - sensitivities pending. * Chest xray -diffuse consolidation likely related to diffuse edema. . Family/Friend Interactions: Spoke with sonRocael he reports he was here a few hours ago. He appreciates update. He understands the reason for paralytic and why we have been unable to proceed with trach/PEG. He desires continued aggressive care including FULL CODE. Advance Directives Living Will: Never completed Health Care Surrogate: Never completed Durable Power of Location Manager: Never completed Health Care Surrogate Name and Number: family David spokesperson [phone] Documented care wishes:: No written advanced directives. Objective Vital Signs: Vital Signs 04/15/18 15:34 04/15/18 16:00 04/15/18 17:09 Temperature 99.6 F 99.6 F Pulse Rate 64 61 Respiratory Rate 20 20 20 Blood Pressure 152/66 H 153/69 H Pulse Oximetry 99 99 100 04/15/18 17:25 04/15/18 18:00 04/15/18 19:17 Temperature 99.1 F Pulse Rate 62 63 61 Respiratory Rate 20 Blood Pressure 152/67 H Pulse Oximetry 100 100 04/15/18 19:28 04/15/18 20:00 04/15/18 21:50 Temperature 99.2 F Pulse Rate 60 58 L Respiratory Rate 20 20 20 Blood Pressure 155/67 H Pulse Oximetry 100 100 04/15/18 22:00 04/15/18 23:32 04/16/18 00:00 Temperature 98.6 F Pulse Rate 58 L 55 L Respiratory Rate 20 20 Blood Pressure 162/73 H Pulse Oximetry 99 99 04/16/18 02:00 04/16/18 03:56 04/16/18 04:00 Temperature 99.2 F Pulse Rate 54 L 55 L Respiratory Rate 20 20 Blood Pressure 136/63 Pulse Oximetry 96 95 04/16/18 06:00 04/16/18 07:38 04/16/18 08:00 Temperature 99 F Pulse Rate 58 L 58 L 59 L Respiratory Rate 20 Blood Pressure 126/61 Pulse Oximetry 94 L 96 04/16/18 08:08 04/16/18 10:00 04/16/18 10:07 Temperature Pulse Rate 62 96 H 92 H Respiratory Rate 20 25 H Blood Pressure Pulse Oximetry 04/16/18 11:14 04/16/18 12:00 04/16/18 14:00 Temperature 99 F Pulse Rate 61 57 L Respiratory Rate 20 Blood Pressure 133/61 Pulse Oximetry 99 97 Intake & Output 04/15/18 04/16/18 04/16/18 18:59 06:59 18:59 Intake Total 1180.2 / 1180.2 1089.1 / 1089.1 350 / 350 Output Total 2300 / 2300 3000 / 3000 Balance -1119.8 / -1119.8 -1910.9 / -1910.9 350 / 350 Weight 125 kg Intake: IV 518.2 / 518.2 484.1 / 484.1 350 / 350 Versed Inj 50 mg In 50 ml @ 2 68.2 / 68.2 84.1 / 84.1 50 / 50 MG/HR 2 mls/hr IV.CONT TITRATE PRN Rx#:[id number] Avycaz Inj 2.5 GM In NS Inj 50 100 / 100 50 / 50 50 / 50 ML @ 25 mls/hr IV.SIG Q8H JACKI Rx#:[id number] fentaNYL 10 mcg/mL Premix Drip 250 / 250 250 / 250 250 / 250 2,500 mcg In 250 ml @ 50 MCG/HR 5 mls/hr IV.SIG TITRATE PRN Rx #:[id number] Flolan (30,000 ng/mL) Neb 37.5 100 / 100 100 / 100 ML In NS Inj 62.5 ML @ As Directed NEB Q8H [facility] Rx#: [id number] Oral 0 / 0 Tube Feeding 562 / 562 505 / 505 Water Bolus Amount 100 / 100 100 / 100 Intake (Blood Product) Amt 0 / 0 Rbc As-3 Leukoreduced Unit 0 / 0 [id number] Output: Stool 100 / 100 200 / 200 Urine Amount (Catheter) 2200 / 2200 2800 / 2800 Indwelling Urethral Catheter 2200 / 2200 2800 / 2800 Other: Date of Last Bowel Movement 04/15/18 04/16/18 04/16/18 Physical Exam: CONSTITUTIONAL/GENERAL: This is an obese, critically ill patient intubated, mechanically ventilated, sedated, and an MICU bed. TUBES/LINES/DRAINS: ETT, OG, PIV, bilateral soft wrist restraints, [place], rectal tube, SCDs SKIN: No jaundice, rashes, or lesions. No wounds seen anteriorly. Skin temperature appropriate. Not diaphoretic. EYES: Does not open eyes for me. Pupils equal when I force lids open. ENT: Unable to assess hearing. Nose without bleeding or purulent drainage. CARDIOVASCULAR: Frequent irregular beats. RESPIRATORY/CHEST: Diminished bibasilar with no appreciable rales. Scattered rhonchi bilaterally. GASTROINTESTINAL: Abdomen obese, soft, non-tender, nondistended OG in place. GENITOURINARY: Without palpable bladder distension. [place] catheter in place. 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 Legs revealed 2+ pitting edema bilateral lower extremities. NEUROLOGICAL:Sedated. PSYCHIATRIC: Sedated. Diagnostic Tests Laboratory: Laboratory Results - last 72 hr 04/13/18 04/14/18 04/14/18 19:51 00:10 03:05 WBC RBC Hgb Hct MCV MCH MCHC RDW Plt Count MPV Neut % (Auto) Lymph % (Auto) [place] % (Auto) Eos % (Auto) Baso % (Auto) Neut # (Auto) Lymph # (Auto) [place] # (Auto) Eos # (Auto) Baso # (Auto) WBC Differential Differential Comment Sodium Potassium Chloride Carbon Dioxide Anion Gap BUN Creatinine Estimated GFR POC Glucose 247 H 302 H 253 H Random Glucose Calcium Random Vancomycin Blood Type Antibody Screen MTS Gel Crossmatch 04/14/18 04/14/18 04/14/18 05:50 05:55 07:33 WBC 12.2 H RBC 2.92 L Hgb 7.8 L Hct 23.6 L MCV 80.9 MCH 26.7 L MCHC 33.0 RDW 23.9 H Plt Count 171 MPV 11.0 Neut % (Auto) 89.0 H Lymph % (Auto) 7.3 L [place] % (Auto) 3.2 Eos % (Auto) 0.2 Baso % (Auto) 0.3 Neut # (Auto) 10.8 H Lymph # (Auto) 0.9 L [place] # (Auto) 0.4 Eos # (Auto) 0.0 Baso # (Auto) 0.0 WBC Differential . Differential Comment Auto diff final Sodium 138 Potassium 3.5 Chloride 94 L Carbon Dioxide 32.7 H Anion Gap 11 BUN 162 H Creatinine 1.75 H Estimated GFR 37 L POC Glucose 148 H Random Glucose 145 H D Calcium 10.0 Random Vancomycin Blood Type Antibody Screen MTS Gel Crossmatch 04/14/18 04/14/18 04/14/18 11:29 16:40 19:47 WBC RBC Hgb Hct MCV MCH MCHC RDW Plt Count MPV Neut % (Auto) Lymph % (Auto) [place] % (Auto) Eos % (Auto) Baso % (Auto) Neut # (Auto) Lymph # (Auto) [place] # (Auto) Eos # (Auto) Baso # (Auto) WBC Differential Differential Comment Sodium Potassium Chloride Carbon Dioxide Anion Gap BUN Creatinine Estimated GFR POC Glucose 214 H 331 H 350 H Random Glucose Calcium Random Vancomycin Blood Type Antibody Screen MTS Gel Crossmatch 04/14/18 04/15/18 04/15/18 23:47 04:24 04:30 WBC 10.3 RBC 2.64 L Hgb 7.2 L Hct 21.6 L MCV 81.6 MCH 27.3 MCHC 33.5 RDW 24.0 H Plt Count 156 MPV 10.4 Neut % (Auto) 86.4 H Lymph % (Auto) 7.3 L [place] % (Auto) 5.7 Eos % (Auto) 0.4 Baso % (Auto) 0.2 Neut # (Auto) 8.9 H Lymph # (Auto) 0.8 L [place] # (Auto) 0.6 Eos # (Auto) 0.0 Baso # (Auto) 0.0 WBC Differential . Differential Comment Auto diff final Sodium Potassium Chloride Carbon Dioxide Anion Gap BUN Creatinine Estimated GFR POC Glucose 330 H 263 H Random Glucose Calcium Random Vancomycin Blood Type Antibody Screen MTS Gel Crossmatch 04/15/18 04/15/18 04/15/18 04:30 07:19 11:26 WBC RBC Hgb Hct MCV MCH MCHC RDW Plt Count MPV Neut % (Auto) Lymph % (Auto) [place] % (Auto) Eos % (Auto) Baso % (Auto) Neut # (Auto) Lymph # (Auto) [place] # (Auto) Eos # (Auto) Baso # (Auto) WBC Differential Differential Comment Sodium 140 Potassium 3.5 Chloride 96 L Carbon Dioxide 32.3 H Anion Gap 12 BUN 166 H Creatinine 1.81 H Estimated GFR 35 L POC Glucose 289 H 267 H Random Glucose 262 H D Calcium 9.5 Random Vancomycin Blood Type Antibody Screen MTS Gel Crossmatch 04/15/18 04/15/18 04/15/18 12:20 15:22 15:34 WBC RBC Hgb 7.2 L Hct 22.1 L MCV MCH MCHC RDW Plt Count MPV Neut % (Auto) Lymph % (Auto) [place] % (Auto) Eos % (Auto) Baso % (Auto) Neut # (Auto) Lymph # (Auto) [place] # (Auto) Eos # (Auto) Baso # (Auto) WBC Differential Differential Comment Sodium Potassium Chloride Carbon Dioxide Anion Gap BUN Creatinine Estimated GFR POC Glucose 336 H Random Glucose Calcium Random Vancomycin Blood Type AB Positive Antibody Screen Positive H MTS Gel Crossmatch See Detail 04/15/18 04/15/18 04/16/18 20:02 22:49 00:02 WBC RBC Hgb 8.0 L Hct 24.5 L MCV MCH MCHC RDW Plt Count MPV Neut % (Auto) Lymph % (Auto) [place] % (Auto) Eos % (Auto) Baso % (Auto) Neut # (Auto) Lymph # (Auto) [place] # (Auto) Eos # (Auto) Baso # (Auto) WBC Differential Differential Comment Sodium Potassium Chloride Carbon Dioxide Anion Gap BUN Creatinine Estimated GFR POC Glucose 348 H 310 H Random Glucose Calcium Random Vancomycin Blood Type Antibody Screen MTS Gel Crossmatch 04/16/18 04/16/18 04/16/18 03:50 03:51 03:51 WBC 11.6 H RBC 2.98 L Hgb 8.1 L Hct 24.4 L MCV 81.9 MCH 27.1 MCHC 33.1 RDW 21.4 H D Plt Count 158 MPV 10.1 Neut % (Auto) 87.7 H Lymph % (Auto) 7.3 L [place] % (Auto) 4.5 Eos % (Auto) 0.3 Baso % (Auto) 0.2 Neut # (Auto) 10.2 H Lymph # (Auto) 0.9 L [place] # (Auto) 0.5 Eos # (Auto) 0.0 Baso # (Auto) 0.0 WBC Differential . Differential Comment Auto diff final Sodium 140 Potassium 3.2 L Chloride 96 L Carbon Dioxide 32.3 H Anion Gap 12 BUN 154 H Creatinine 1.74 H Estimated GFR 37 L POC Glucose 273 H Random Glucose 264 H Calcium 9.8 Random Vancomycin 21.7 Blood Type Antibody Screen MTS Gel Crossmatch 04/16/18 04/16/18 09:25 11:57 WBC RBC Hgb Hct MCV MCH MCHC RDW Plt Count MPV Neut % (Auto) Lymph % (Auto) [place] % (Auto) Eos % (Auto) Baso % (Auto) Neut # (Auto) Lymph # (Auto) [place] # (Auto) Eos # (Auto) Baso # (Auto) WBC Differential Differential Comment Sodium Potassium Chloride Carbon Dioxide Anion Gap BUN Creatinine Estimated GFR POC Glucose 247 H 241 H Random Glucose Calcium Random Vancomycin Blood Type Antibody Screen MTS Gel Crossmatch Result Diagrams: 04/16/18 03:51 04/16/18 03:51 Microbiology: Microbiology 04/14/18 18:54 Gram Stain - Final Sputum - Endotracheal Sputum Culture - Preliminary Klebsiella pneumoniae ESBL pos 03/24/18 16:30 Fungal Smear - Final Bronchial Washings - Left Lower Lobe No fungal elements seen Fungal Culture - Preliminary No growth in 3 weeks 03/24/18 16:30 Acid Fast Bacilli Smear - Final Bronchial Washings - Left Lower Lobe No acid fast bacilli seen Mycobacterial Culture - Preliminary No growth in 3 weeks Procedures: * Right IJ central line * Intubated . Assessment and Plan - Disease Oriented Problem List (1) ARDS (adult respiratory distress syndrome) (2) Acute respiratory failure with hypoxemia (3) HCAP (healthcare-associated pneumonia) Comment: Multi drug resistant -- Klebsiella ESBL + (4) Diabetes mellitus type 2 in obese (5) Atrial fibrillation (6) Chronic kidney disease, stage III (moderate) (7) Hypertension (8) Hypoglycemia due to type 2 diabetes mellitus (9) Lactic acid acidosis (10) Super obesity (11) WISAM (obstructive sleep apnea) (12) Asthma (13) H/O osteomyelitis (14) Diastolic heart failure (15) Diabetes (16) Acute renal failure superimposed on stage 3 chronic kidney disease - Symptom Scale (1) Pain 0-10 Scale: Unable to quantify (2) Dyspnea 0-10 Scale: Unable to quantify (3) Encephalopathy 0-10 Scale: Unable to quantify Pertinent Non-Medical Issues: Psychosocial: Never . Supported by her son, Rocael. Has 4 children ( Rocael, Jose Juan, Manny and Shobha). Spiritual: Cheondoism. Legal: Patient is not capacitated to make her own health care decisions, and at this point there is no reasonable probability that she will recover capacity to do so. . No written advanced directives. According to [place] statutes, health care proxy decision making falls to the majority of adult children, she has 4 children. Son Rocael reports he has always made decisions for patient. Jose Juan has opted out of decision making. Other children desire to participate but have wanted Rocael to be the spokesperson and communication hub. Ethical issues impacting care: None. Important Contacts: * Rocael Hanna, son: [phone] serving as family spokesperson * Shobha Hanna, daughter: [phone] * Jose Juan Hanna, son (has opted out of decision making) * Manny Hanna, son: * Carolyn Durand, sister: [phone] . Prognosis: Patient shows no signs of significant improvement in spite of aggressive care. She continues to require high ventilatory support and paralytic to main vent synchrony. Overall prognosis is poor. It is unclear if there has been any permanent hypoxic cognitive changes from her initial code and/or subsequent hypoxic periods. . Code Status: Full Code Plan: * Decision making: Patient is not capacitated to make her own health care decisions, and at this point there is no reasonable probability that she will recover capacity to do so. . No written advanced directives. According to [place] statutes, health care proxy decision making falls to the majority of adult children, she has 4 children. Norman Cote reports he has always made decisions for patient. Son Jose Juan has opted out of decision making. Other children remain involved with Rocael being the communication hub. * FULL CODE - this was confirmed once again by son, Rocael (04/16/18). * Goals of medical treatment: Family has been informed of patient's poor prognosis and high likelihood of ICU . Nevertheless, they continue to want full aggressive care. The desire trach and PEG if/when medically stable for such procedures. Symptoms * Dyspnea: Dsypnea was initially felt to be due to CHF but now appears in large part due to multi-drug resistant +EBSL Klebsiella pneumonia. Patient's pulmonary status does not seem to be improving in spite of aggressive care. Currently being managed with vent support and sedation with fentanyl and midazolam. No further recommendations at this time. * Pain: No clear pre-hospitalization pain syndromes. Patient likely painful from prolonged bedbound status; OT tube; OG tube; vascular lines; other catheters. Pain should be adequately controlled by the fentanyl drip. No further recommendations at this time. * Encephalopathy: Unclear to what extent this is reversible and a result of her infection or possibly permanent due to hypoxic injury. No further recommendations at this time. * Expected disposition: Given the last few days, unless code status changes, patient will likely he have a while being coded in the ICU. * Case discussed with nursing staff. * Palliative care will continue to assist with symptom management and to further clarify goals of medical treatment as the clinical course evolves. Attestation Attestation: To help prompt me to consider important information that might be impacting today's encounter and assessment, information from prior notes written by myself or my colleagues may have been "brought forward" into today's note. My signature on this note, however, is an attestation that I personally performed the exam, history, and/or decision-making noted today, and, unless otherwise indicated, the interactions with patient, family, and staff as well as the review of records all occurred today. I also attest that the listed assessment and stated plan reflect my best clinical judgment today based on the combination of historical information, prior notes, and today's exam/ interactions. When time spent is documented, it refers only to time spent today by the signer, or if indicated, combined time spent today by collaborating physician/nurse practitioner.
--- NOTE | 2018-04-16 17:35 | P.PNNP ---
Subjective Interval history: Remains intubated, sedated. Maxed out on sedation, started on paralytic. Renal function has began to improve. <Myrtle Levi - Last Filed: 04/16/18 17:30> Physical Exam Vital signs: Vital Signs 04/15/18 18:00 04/15/18 19:17 04/15/18 19:28 Temperature Pulse Rate 63 61 60 Respiratory Rate 20 20 Blood Pressure Pulse Oximetry 100 04/15/18 20:00 04/15/18 21:50 04/15/18 22:00 Temperature 99.2 F Pulse Rate 58 L 58 L Respiratory Rate 20 20 Blood Pressure 155/67 H Pulse Oximetry 100 100 04/15/18 23:32 04/16/18 00:00 04/16/18 02:00 Temperature 98.6 F Pulse Rate 55 L 54 L Respiratory Rate 20 20 Blood Pressure 162/73 H Pulse Oximetry 99 99 04/16/18 03:56 04/16/18 04:00 04/16/18 06:00 Temperature 99.2 F Pulse Rate 55 L 58 L Respiratory Rate 20 20 Blood Pressure 136/63 Pulse Oximetry 96 95 04/16/18 07:38 04/16/18 08:00 04/16/18 08:08 Temperature 99 F Pulse Rate 58 L 59 L 62 Respiratory Rate 20 20 Blood Pressure 126/61 Pulse Oximetry 94 L 96 04/16/18 10:00 04/16/18 10:07 04/16/18 11:14 Temperature Pulse Rate 96 H 92 H Respiratory Rate 25 H 20 Blood Pressure Pulse Oximetry 99 04/16/18 12:00 04/16/18 14:00 04/16/18 15:09 Temperature 99 F Pulse Rate 61 57 L 55 L Respiratory Rate 20 Blood Pressure 133/61 Pulse Oximetry 97 99 04/16/18 16:00 Temperature 98 F Pulse Rate 55 L Respiratory Rate Blood Pressure 130/60 Pulse Oximetry 95 Intake & Output 04/15/18 04/16/18 04/16/18 18:59 06:59 18:59 Intake Total 1180.2 / 1180.2 1089.1 / 1089.1 450 / 450 Output Total 2300 / 2300 3000 / 3000 Balance -1119.8 / -1119.8 -1910.9 / -1910.9 450 / 450 Weight 125 kg Intake: IV 518.2 / 518.2 484.1 / 484.1 450 / 450 Versed Inj 50 mg In 50 ml @ 2 68.2 / 68.2 84.1 / 84.1 50 / 50 MG/HR 2 mls/hr IV.CONT TITRATE PRN Rx#:[id number] Avycaz Inj 2.5 GM In NS Inj 50 100 / 100 50 / 50 50 / 50 ML @ 25 mls/hr IV.SIG Q8H [facility] Rx#:[id number] fentaNYL 10 mcg/mL Premix Drip 250 / 250 250 / 250 250 / 250 2,500 mcg In 250 ml @ 50 MCG/HR 5 mls/hr IV.SIG TITRATE PRN Rx #:[id number] Flolan (30,000 ng/mL) Neb 37.5 100 / 100 100 / 100 100 / 100 ML In NS Inj 62.5 ML @ As Directed NEB Q8H [facility] Rx#: [id number] Oral 0 / 0 Tube Feeding 562 / 562 505 / 505 Water Bolus Amount 100 / 100 100 / 100 Intake (Blood Product) Amt 0 / 0 Rbc As-3 Leukoreduced Unit 0 / 0 [id number] Output: Stool 100 / 100 200 / 200 Urine Amount (Catheter) 2200 / 2200 2800 / 2800 Indwelling Urethral Catheter 2200 / 2200 2800 / 2800 Other: Date of Last Bowel Movement 04/15/18 04/16/18 04/16/18 - Constitutional no acute distress, morbidly obese - Routine HEENT Exam Head: Present: normocephalic Eye: Present: periorbital swelling - Routine Neck Exam Present: supple, full ROM - Routine Respiratory Exam Present: patient mechanically ventilated, rales - Routine Cardiovascular Exam Present: RRR, S1, S2 - Routine Abdominal Exam Present: soft, normoactive bowel sounds - Routine Extremities Exam Present: edema, full ROM, amputation - Routine Skin Exam Present: intact, dry, warm - Routine Neurological Exam sedated, unresponsive. - Detailed Neurological Exam: Coma Scale Eye Opening: None Verbal Response: None Motor Response: None [place] Coma Scale Total: 3 - Routine Psychiatric Exam Present: unable to assess - Urinary Catheter Management Indwelling Urethral Catheter Cath placed during this visit: yes Urethral indwelling: Yes Reason for continuing: Acute urinary retention Insertion date: 03/18/18 Insertion time: 21:00 <Myrtle Levi - Last Filed: 04/16/18 17:30> Vital signs: Vital Signs 04/16/18 15:09 04/16/18 16:00 04/16/18 18:00 Temperature 98 F Pulse Rate 55 L 55 L 55 L Respiratory Rate 20 Blood Pressure 130/60 Pulse Oximetry 99 95 04/16/18 19:58 04/16/18 20:00 04/16/18 21:06 Temperature 97.9 F Pulse Rate 66 66 78 Respiratory Rate 20 22 20 Blood Pressure 140/65 Pulse Oximetry 99 04/16/18 21:08 04/16/18 22:00 04/16/18 23:40 Temperature Pulse Rate 73 Respiratory Rate 20 20 Blood Pressure Pulse Oximetry 99 99 04/17/18 00:00 04/17/18 01:36 04/17/18 02:00 Temperature 98.3 F Pulse Rate 64 58 L Respiratory Rate 20 20 Blood Pressure 152/65 H Pulse Oximetry 99 100 04/17/18 03:39 04/17/18 04:00 04/17/18 04:07 Temperature 98 F Pulse Rate 51 L 55 L Respiratory Rate 20 20 20 Blood Pressure 151/66 H Pulse Oximetry 100 97 04/17/18 06:00 04/17/18 07:47 04/17/18 08:00 Temperature 98 F Pulse Rate 56 L 60 69 Respiratory Rate 20 23 Blood Pressure 145/64 H Pulse Oximetry 98 98 04/17/18 08:53 04/17/18 08:55 04/17/18 10:00 Temperature Pulse Rate 65 57 L Respiratory Rate 20 Blood Pressure Pulse Oximetry 95 04/17/18 11:31 04/17/18 12:00 Temperature 97 F L Pulse Rate 63 Respiratory Rate 20 16 Blood Pressure 118/67 Pulse Oximetry 98 Intake & Output 04/16/18 04/17/18 04/17/18 18:59 06:59 18:59 Intake Total 1069 / 1069 2200 / 2200 850 / 850 Output Total 2240 / 2240 3250 / 3250 Balance -1171 / -1171 -1050 / -1050 850 / 850 Weight 121 kg Intake: IV 500 / 500 1550 / 1550 850 / 850 Nimbex Inj 100 MG In NS Inj 240 750 / 750 750 / 750 ML @ 1 MCG/KG/MIN 18.75 mls/hr IV.CONT TITRATE PRN Rx#: [id number] Versed Inj 50 mg In 50 ml @ 2 100 / 100 100 / 100 50 / 50 MG/HR 2 mls/hr IV.CONT TITRATE PRN Rx#:[id number] Avycaz Inj 2.5 GM In NS Inj 50 50 / 50 100 / 100 50 / 50 ML @ 25 mls/hr IV.SIG Q8H [facility] Rx#:[id number] fentaNYL 10 mcg/mL Premix Drip 250 / 250 500 / 500 2,500 mcg In 250 ml @ 50 MCG/HR 5 mls/hr IV.SIG TITRATE PRN Rx #:[id number] Flolan (30,000 ng/mL) Neb 37.5 100 / 100 100 / 100 ML In NS Inj 62.5 ML @ As Directed NEB Q8H [facility] Rx#: [id number] Tube Feeding 449 / 449 500 / 500 Tube Irrigant 150 / 150 Water Bolus Amount 120 / 120 Output: Stool 240 / 240 50 / 50 Urine Amount (Catheter) 1999 3200 / 3200 Indwelling Urethral Catheter 1999 3200 / 3200 Other: Date of Last Bowel Movement 04/16/18 04/17/18 04/17/18 - Urinary Catheter Management Indwelling Urethral Catheter Cath placed during this visit: no <Alverto Fraser - Last Filed: 04/17/18 14:49> Assessment and Plan - Assessment (1) Acute renal failure superimposed on stage 3 chronic kidney disease Code(s): N17.9 - Acute kidney failure, unspecified; N18.3 - Chronic kidney disease, stage 3 (moderate) Status: Acute Plan: Her baseline creatinine runs 1.6-2, GFR 44. YOU most likely due to cardiac arrest and decreased renal perfusion. Her renal function has began to improved. She has had a very high BUN for the past couple of weeks. She is still requiring high oxygen content, has edema. Needs continued diuresis. On Bumex TID 2 mg. She has negative fluid balance. Metolazone on hold. She is non oliguric and responding to diuretics. Avoid nephrotoxic agents,dose appropriate to renal status. Minimize non essential medications. She may need dialysis if her renal function declines. The family wants aggressive treatment. She may need more fluid removal to assist with weening from vent. Overall prognosis is very poor. (2) Acute respiratory failure with hypoxemia Code(s): J96.01 - Acute respiratory failure with hypoxia Status: Acute Plan: ARDS. High oxygen requirement (improved to 75%, PEEP 15). Poor prognosis. Management per critical care service. Needs better oxygenation prior to trach placement. (3) Diabetes mellitus type 2 in obese Code(s): E11.69 - Type 2 diabetes mellitus with other specified complication; E66.9 - Obesity, unspecified Status: Chronic Plan: Maintain glucose 140-180mg/dL while hospitalized. Use insulin if needed. (4) Hypertension Code(s): I10 - Essential (primary) hypertension Status: Chronic Plan: Monitor BP. Continue medications as ordered. (5) HCAP (healthcare-associated pneumonia) Code(s): J18.9 - Pneumonia, unspecified organism Status: Acute Plan: ID is following, managing antibiotics. Currently on Avycaz. s/p bronch with cultures reviewed. Klebsiella PNA. (6) Diastolic heart failure Code(s): I50.30 - Unspecified diastolic (congestive) heart failure Status: Acute Plan: Monitor fluid status. Continue diuresis. She had an echo previous admission, EF 50%. <Myrtle Levi - Last Filed: 04/16/18 17:30> - Assessment (1) Acute renal failure superimposed on stage 3 chronic kidney disease Code(s): N17.9 - Acute kidney failure, unspecified; N18.3 - Chronic kidney disease, stage 3 (moderate) Status: Acute (2) Acute respiratory failure with hypoxemia Code(s): J96.01 - Acute respiratory failure with hypoxia Status: Acute (3) Diabetes mellitus type 2 in obese Code(s): E11.69 - Type 2 diabetes mellitus with other specified complication; E66.9 - Obesity, unspecified Status: Chronic (4) Hypertension Code(s): I10 - Essential (primary) hypertension Status: Chronic (5) HCAP (healthcare-associated pneumonia) Code(s): J18.9 - Pneumonia, unspecified organism Status: Acute (6) Diastolic heart failure Code(s): I50.30 - Unspecified diastolic (congestive) heart failure Status: Acute - Attending Attestation patient was seen and examined. Agree with above assessment and plan. Potassium replaced. <Alverto Fraser - Last Filed: 04/17/18 14:49>
[2018-04-16 23:53] LABS: Baso % (Auto) 0.1 % (0.0-2.0); Hematocrit 25.8 % (35.0-46.0); Hemoglobin 8.4 gm/dL (11.6-15.3); Lymph # (Auto) 0.5 th/mm3 (1.0-4.8); Lymph % (Auto) 3.9 % (9.0-44.0); Mean Corpuscular HGB Conc 32.4 % (32.0-36.0); Mean Corpuscular Hemoglobin 26.4 pg (27.0-34.0); Mean Corpuscular Volume 81.3 fL (80.0-100.0); Mean Platelet Volume 10.2 fL (7.0-11.0); Mono # (Auto) 0.4 th/mm3 (0.0-0.9); Mono % (Auto) 3.3 % (0.0-8.0); Neut # (Auto) 11.9 th/mm3 (1.8-7.7); Neut % (Auto) 92.7 % (16.0-70.0); Platelet Count 159 th/mm3 (150-450); Red Blood Count 3.17 mil/mm3 (4.00-5.30); Red Cell Distribution Width 21.8 % (11.6-17.2); White Blood Count 12.8 th/mm3 (4.0-11.0)
[2018-04-17 00:05] LABS: Alanine Aminotransferase 33 U/L (10-53); Albumin 2.3 g/dL (3.4-5.0); Anion Gap 9 meq/L (5-15); Aspartate Aminotransferase 21 U/L (15-37); Carbon Dioxide 33.7 meq/L (21.0-32.0); Chloride 98 meq/L (98-107); Glucose,Random 314 mg/dL (74-106); Magnesium 1.9 mg/dL (1.5-2.5); Phosphorus 2.8 mg/dL (2.5-4.9); Potassium 3.9 meq/L (3.5-5.1); Sodium 141 meq/L (136-145)
[2018-04-17 00:08] LABS: Alkaline Phosphatase 83 U/L (45-117); Blood Urea Nitrogen 158 mg/dL (7-18); Total Protein 7.3 g/dL (6.4-8.2); Vancomycin,Random 17.4 Comment
[2018-04-17] MEDS: Insulin NovoLIN Regular Correctional Sugar Inj SQ SCH ×6 (00:43→20:30)
[2018-04-17] MEDS: Oral Hygiene Kit OROPHARYNG SCH ×4 (00:44→17:01)
[2018-04-17] MEDS: Cisatracurium Inj 100 MG in Sodium Chlor 0.9% Inj 240 ML IV.CONT PRN ×7 (00:59→19:29)
[2018-04-17] MEDS: fentaNYL 10 mcg/mL Premix Drip 2,500 MCG/250 ML BAG IV.SIG PRN ×2 (02:44→16:57)
[2018-04-17] MEDS: Hypromellose 0.3% Opth Gel 10 GM Bottle EACH EYE SCH ×3 (02:44→20:30)
[2018-04-17] MEDS: SODIUM CHLOR NEB SCH (03:29)
[2018-04-17] MEDS: EPOPROSTENOL NEB SCH (03:29)
[2018-04-17] MEDS: Midazolam 50 MG/50 ML Inj 50 MG/50 ML BAG IV.CONT PRN ×3 (04:16→18:14)
[2018-04-17] MEDS: Ceftazidime/Avibactam Inj 2.5 GM in Sodium Chlor 0.9% Inj 50 ML IV.SIG SCH ×3 (05:13→21:22)
[2018-04-17] MEDS: QUEtiapine 25 MG Tablet PO SCH ×3 (05:13→21:21)
--- NOTE | 2018-04-17 05:49 | XR ---
EXAM DATE: 04/17/2018 5:41 AM EDT AGE/SEX: 52 years / Female INDICATIONS: Follow up respiratory failure. CLINICAL DATA: This is the patient's subsequent encounter. Patient reports that signs and symptoms h ave been present for 2 weeks and indicates a pain score of Nonresponsive. MEDICAL/SURGICAL HISTORY: Non-responsive. Non-responsive. COMPARISON: [facility], CHEST 1V SINGLE AP, 04/16/2018. . FINDINGS: The ET tube and NG tube are well placed. The heart size is upper limits of normal. The lungs demonstr ate diffuse mixed interstitial and alveolar consolidation. The left hemidiaphragm was not included on the image. CONCLUSION: Diffuse consolidation likely related to diffuse processes such as edema, diffuse infection, or ARDS. Electronically signed by: Isaak Hong MD 04/17/2018 5:48 AM EDT
[2018-04-17] MEDS: Senna/Docusate Sodium 8.6/50 MG Tablet PO SCH ×2 (08:16→20:31)
[2018-04-17] MEDS: Famotidine 20 MG Tablet PO SCH ×2 (08:16→20:32)
[2018-04-17] MEDS: Heparin - SQ 10,000 UNITS/ML Vial SQ SCH ×2 (08:17→20:32)
[2018-04-17] MEDS: Insulin Detemir Inj 1,000 UNIT/10 ML Vial SQ SCH ×2 (08:18→20:31)
[2018-04-17] MEDS: MethylPREDNISolone Sod Succinate Inj 40 MG/ML Vial IV.PUSH SCH (08:18)
[2018-04-17] MEDS: Chlorhexidine 0.12% Oral Kit 15 ML UDC OROPHARYNG SCH ×2 (08:18→20:33)
[2018-04-17] MEDS: Lipase/Protease/Amylase 24/76/120 DR Capsule PO SCH ×3 (08:27→17:11)
[2018-04-17] MEDS ORDERED: Vancomycin Inj 2,000 MG in Sodium Chlor 0.9% Inj 500 ML IV.SIG ONE (10:00)
--- NOTE | 2018-04-17 12:35 | P.PNCC ---
Subjective Subjective Remarks/Hospital Course: 52-year-old female with past medical history of diabetes mellitus, hypertension, hyperlipidemia, atrial fibrillation on chronic anticoagulation with warfarin, chronic diastolic heart failure, asthma, WISAM, peripheral vascular disease, super morbid obesity. She has been at [facility] since 03/02/18. Abeba JACOBO was called due to respiratory distress. When they arrived as she was found to be in respiratory distress with sats in the 70s. She was communicating with them and reportedly said "leave me alone". She then had PEA arrest. She received CPR reportedly 10-15 minutes and received 2 doses of epinephrine. LMA was placed by EVAC. LMA was removed and she was intubated by Dr. Daly after receiving etomidate 20 mg IV and succinylcholine. She has demonstrated purposeful movements post intubation, and is now on a propofol drip. She was recently admitted to [facility] 02/24-03/02 due to hypoglycemia, fall after isolated episode of diarrhea, hypoxia requiring HFNC. She has chronic interstitial changes on CXR. Reviewed records from [facility] which indicate she completed a 7 day course of Levaquin and has been on a prednisone taper. Current CXR shows bibasilar opacities. WBC is 16 ( previously 7.9). She has acute hypercapneic and hypoxemic respiratory failure. 03/19: Afebrile. Remains on 100% FiO2 PEEP of 12. Central has been placed for access due to multiple drips. Plan MRI brain today if respiratory status improves. Does not tolerate lying flat. Likely will need epoprostenol and rotaprone 03/20: Started on epoprostenol and currently on a rotor from bed. Currently on cisatracurium drip at 1 mcg/kg/min. Diuresing well. 03/21: Weaning down epoprostenol. Remains on cisatracurium drip at 6 mcg/kg/ min. Diuresis 6 L. Saturation was improved FiO2 down to 45%. 03/22: Hypothermic overnight. Currently euthermic. Excellent response to bumetanide drip. FiO2 down to 40%. PEEP down to 8. Possible discontinue paralytic agent today. 03/23: Resting comfortable in bed in no acute distress. Afebrile. Desaturated so placed back on rotor prone bed. Creatinine slowly increasing. 03/24: Afebrile. Worsening chest x-ray it appears to be volume overloaded again. +10 L past 24 hours. Will restart on bumetanide drip. Plan for bronchoscopy today. Switch to ceftazidime/avibactam secondary to ESBL positive Klebsiella pneumonia 03/25: FiO2 to 55%. Tolerating demanding drip with -2 L past 24 hours. Bronchoscopy results pending. Positive BM. Restarting tube feeding today 03/26: Cr continues to rise, although clinically continues to appear severely volume overloaded. fio2 70%. supine all night. off nimbex. off flolan. ID managing ESBL/MDRO/KPC Klebsiella and anaerobic bacteremia. 03/27: off rotaprone bed. multiple desat episodes overnight. on 100% fio2 and PEEP 10 this AM. good diuresis with net -2L/24h. bumex drip continues. awakens and follows commands. 03/28: not diuresing as well as yesterday. wbc uptrending. 2 more episodes of bradycardia, not associated with hypoxia. however, fio2 remains severely elevated. I increased her peep to 14. still arouses and moves all extremities. high concern for ongoing infectious etiology, but with high o2 requirements and intermittent bradycardia requiring atropine, at present too unstable for repeat imaging. 03/29: ct C/A/P without overt infectious source. does demonstrate radiographic evidence of biventricular dysfunction. bedside echo today demonstrates the same , and dilated IVC without respiratory variation. off vasopressors. required atropine for a HR of 15 once overnight. still very hypoxic: changed to APRV 5:1 , 28/0, 4/0.8. 03/30: remains on APRV with hypoxia. multiple episodes of bradycardia and a 18 second pause yesterday. trialed on dobutamine but with multiple dysrhythmias. now on low-dose dopamine to mitigate bradycardia. adequate diuresis overnight. cxr improving slightly. still remains volume overloaded, and YOU persists. 03/31: mild improvements in fio2. remains on APRV. no more bradycardia today. still on dopamine to prevent pauses/bradycardia. YOU persists, but stable. unable to diurese yesterday and now net +2L despite fluid overload. must increase forced diuresis to improve hypoxemia. 04/01: Remains sedated, orally intubated on mechanical ventilation. Being diuresed. Started on Reglan in view of high gastric residuals and decreasing fentanyl as tolerated. 04/02: Remains sedated, orally intubated on APRV mode mechanical ventilation. 04/03: Remains sedated, orally intubated on mechanical ventilation. Awaiting family meeting with palliative care to decide goals of therapy. Being diuresed. 04/04: Remains sedated, orally intubated on mechanical ventilation. Switch to PRVC mode overnight. On 50% FiO2, PEEP +8. Family deciding regarding goals of therapy. 04/05: Remains sedated, orally intubated on mechanical ventilation. PEEP increased to +10 overnight due to hypoxia. 04/06: Remains sedated, orally intubated on mechanical ventilation. Worsening oxygenation since yesterday. Chest x-ray showed fluid overload. Resume Bumex twice daily yesterday in addition to Zaroxolyn PO. 04/07: Remains sedated, orally intubated on mechanical ventilation. Diuresed. Renal function remains a concern. Started on colistin nebs per ID due to very resistant organisms in sputum. Eventually needs tracheostomy and PEG tube placement. 04/08 Patient remains sedated with Versed and Fentanyl infusion. On Cardene drip.Had T:99.7 last night. Remains on high PEEP and FIO2( PEEP:15, FIO2: 65%) 04/09 Patient is intubated with Versed and Fentanyl drips. Tmax 100.3. Now on PRVC with PEEP:12 and FIO2 100% 04/10 Patient is sedated with Fentanyl and Versed drips. Flolan started yesterday. On PRVC with PEEP: 15 and FIO2 100%. Afebrile. 04/11 Patient was hypoxic overnight with [id number]'s given Rocuronium 100mg IV for desaturation and vent synchrony remains on high PEEP15 with 100%FIO2. Sedated with Versed and Fentanyl drips. CXR this morning shows diffuse b/l infiltrates severe in lower lung zones. 04/12 Patient remains sedated and intubated and on Flolan. Afebrile. 04/13 Patient remains sedated with Versed and Fentanyl and intubated. Afebrile. On Flolan . On PRVC with PEEP: 15, FIO2 down 70%. 04/14 Patient had another episode of desaturation overnight now on PRVC with PEEP :15 and 100% FIO2. T:99.7 last night. Sedated with Versed/Fentanyl drips. On Flolan 04/15 Patient remans sedated with Fentanyl, Versed and intubated. Afebrile. On PRVC with PEEP:15 and FIO2 75%. 04/16: Intubation day #29. Afebrile. FiO2 increased to 100%. More secretions. Will need to paralyze with cisatracurium drip for vent synchrony as patient is currently out of peeping despite maximum midazolam and fentanyl drips. Remains on epoprostenol SUBJECTIVE 04/17: The patient day #30. Remains on cisatracurium drip at 5 mcg/kg/min. FiO2 down to 50%. Chest x-ray reveals diffuse ARDS. Tolerating tube feeds. Objective Vital Signs / I&O: Vital Signs 04/16/18 14:00 04/16/18 15:09 04/16/18 16:00 Temperature 98 F Pulse Rate 57 L 55 L 55 L Respiratory Rate 20 Blood Pressure 130/60 Pulse Oximetry 99 95 04/16/18 18:00 04/16/18 19:58 04/16/18 20:00 Temperature 97.9 F Pulse Rate 55 L 66 66 Respiratory Rate 20 22 Blood Pressure 140/65 Pulse Oximetry 99 04/16/18 21:06 04/16/18 21:08 04/16/18 22:00 Temperature Pulse Rate 78 73 Respiratory Rate 20 20 Blood Pressure Pulse Oximetry 99 04/16/18 23:40 04/17/18 00:00 04/17/18 01:36 Temperature 98.3 F Pulse Rate 64 Respiratory Rate 20 20 20 Blood Pressure 152/65 H Pulse Oximetry 99 99 100 04/17/18 02:00 04/17/18 03:39 04/17/18 04:00 Temperature 98 F Pulse Rate 58 L 51 L 55 L Respiratory Rate 20 20 Blood Pressure 151/66 H Pulse Oximetry 100 04/17/18 04:07 04/17/18 06:00 04/17/18 07:47 Temperature Pulse Rate 56 L 60 Respiratory Rate 20 20 Blood Pressure Pulse Oximetry 97 98 04/17/18 08:00 04/17/18 08:53 04/17/18 08:55 Temperature 98 F Pulse Rate 69 65 Respiratory Rate 23 20 Blood Pressure 145/64 H Pulse Oximetry 98 95 04/17/18 10:00 04/17/18 11:31 04/17/18 12:00 Temperature 97 F L Pulse Rate 57 L 63 Respiratory Rate 20 16 Blood Pressure 118/67 Pulse Oximetry 98 Intake & Output 04/16/18 04/17/18 04/17/18 18:59 06:59 18:59 Intake Total 1069 / 1069 2200 / 2200 600 / 600 Output Total 2240 / 2240 3250 / 3250 Balance -1171 / -1171 -1050 / -1050 600 / 600 Weight 121 kg Intake: IV 500 / 500 1550 / 1550 600 / 600 Nimbex Inj 100 MG In NS Inj 240 750 / 750 500 / 500 ML @ 1 MCG/KG/MIN 18.75 mls/hr IV.CONT TITRATE PRN Rx#: [id number] Versed Inj 50 mg In 50 ml @ 2 100 / 100 100 / 100 50 / 50 MG/HR 2 mls/hr IV.CONT TITRATE PRN Rx#:[id number] Avycaz Inj 2.5 GM In NS Inj 50 50 / 50 100 / 100 50 / 50 ML @ 25 mls/hr IV.SIG Q8H [facility] Rx#:[id number] fentaNYL 10 mcg/mL Premix Drip 250 / 250 500 / 500 2,500 mcg In 250 ml @ 50 MCG/HR 5 mls/hr IV.SIG TITRATE PRN Rx #:[id number] Flolan (30,000 ng/mL) Neb 37.5 100 / 100 100 / 100 ML In NS Inj 62.5 ML @ As Directed NEB Q8H [facility] Rx#: [id number] Tube Feeding 449 / 449 500 / 500 Tube Irrigant 150 / 150 Water Bolus Amount 120 / 120 Output: Stool 240 / 240 50 / 50 Urine Amount (Catheter) 1999 3200 / 3200 Indwelling Urethral Catheter 1999 3200 / 3200 Other: Date of Last Bowel Movement 04/16/18 04/17/18 04/17/18 Result Diagrams: 04/16/18 23:27 04/16/18 23:27 Other Results: Microbiology 04/14/18 18:54 Sputum - Endotracheal Gram Stain - Final 04/14/18 18:54 Sputum - Endotracheal Sputum Culture - Preliminary Klebsiella pneumoniae ESBL pos 03/24/18 16:30 Bronchial Washings - Left Lower Lobe Fungal Smear - Final No fungal elements seen 03/24/18 16:30 Bronchial Washings - Left Lower Lobe Fungal Culture - Preliminary No growth in 3 weeks 03/24/18 16:30 Bronchial Washings - Left Lower Lobe Acid Fast Bacilli Smear - Final No acid fast bacilli seen 03/24/18 16:30 Bronchial Washings - Left Lower Lobe Mycobacterial Culture - Preliminary No growth in 3 weeks 04/10/18 13:05 Sputum - Endotracheal Gram Stain - Final 04/10/18 13:05 Sputum - Endotracheal Sputum Culture - Final Heavy growth normal respiratory jennifer 04/04/18 15:44 Sputum - Endotracheal Gram Stain - Final 04/04/18 15:44 Sputum - Endotracheal Sputum Culture - Final Klebsiella pneumoniae ESBL pos Multidrug Resistant 03/26/18 15:51 Blood - Peripheral Aerobic Blood Culture - Final No growth in 5 days 03/26/18 15:51 Blood - Peripheral Anaerobic Blood Culture - Final No growth in 5 days 03/26/18 14:39 Blood - Peripheral Aerobic Blood Culture - Final No growth in 5 days 03/26/18 14:39 Blood - Peripheral Anaerobic Blood Culture - Final No growth in 5 days 03/26/18 16:21 Catheterized Urine Urine Culture - Final No growth in 48 hours 03/26/18 17:33 Stool Stool Occult Blood (NORIS) - Final Hemoccult positive 03/24/18 16:30 Bronchial - Left Lower Lobe Gram Stain - Final 03/24/18 16:30 Bronchial - Left Lower Lobe Bronchial Culture - Final Klebsiella pneumoniae Multidrug Resistant 03/20/18 09:40 Blood - Line Aerobic Blood Culture - Final No growth in 5 days 03/20/18 09:40 Blood - Line Anaerobic Blood Culture - Final No growth in 5 days 03/22/18 22:00 Sputum - Endotracheal Gram Stain - Final 03/22/18 22:00 Sputum - Endotracheal Sputum Culture - Final Klebsiella pneumoniae ESBL pos Multidrug Resistant Carba [employer]CH[employer]ING [employer]INATOR: Positive 03/18/18 18:15 Blood - Peripheral Aerobic Blood Culture - Final No growth in 5 days 03/18/18 18:15 Blood - Peripheral Anaerobic Blood Culture - Final Veillonella species 03/18/18 18:00 Blood - Peripheral Aerobic Blood Culture - Final No growth in 5 days 03/18/18 18:00 Blood - Peripheral Anaerobic Blood Culture - Final Veillonella species Imaging: Chest X-Ray 03/18/18 17:52 CONCLUSION: 1. ET tube in good position. 2. Increasing patchy areas of consolidation in both lower lungs. Chest CT 03/18/18 18:46 CONCLUSION: 1. Bilateral multi segmental consolidation in the mid and lower lungs and small bilateral pleural effusions. 2. Several enlarged middle mediastinal lymph nodes. Head CT 03/18/18 18:46 CONCLUSION: 1. Solitary 3 mm hyperdensity in the central [place] of uncertain significance. Differential considerations include a punctate calcification and acute hemorrhage. 2. No acute findings in the supratentorial brain. Head MRI 03/19/18 00:00 CONCLUSION: 1. No evidence of brainstem hemorrhage. 2. Small foci of encephalomalacia in the left occipital lobe and right cerebellum 3. No evidence of acute infarct, hemorrhage, mass or edema. 4. No evidence of enhancing intra-axial or extra-axial lesions. Venous Doppler Study 03/19/18 00:00 CONCLUSION: The study is negative for bilateral upper extremity deep venous thrombosis. Venous Doppler Study 03/19/18 00:00 CONCLUSION: The study is negative for bilateral lower extremity deep venous thrombosis. Chest X-Ray 03/19/18 07:33 CONCLUSION: 1. Lines and tubes as detailed above without pneumothorax. 2. Radiographic pattern most consistent with pulmonary edema. This is unchanged. Chest X-Ray 03/20/18 06:00 CONCLUSION: No significant change. Chest X-Ray 03/21/18 05:14 CONCLUSION: Decreased bilateral pulmonary opacity suggesting decreased pulmonary edema. Abdomen X-Ray 03/22/18 00:00 CONCLUSION: Mild ileus. NG tip in stomach. Foot X-Ray 03/22/18 00:00 CONCLUSION: No acute bony destructive change. Previous amputations as above. Fairly marked soft tissue swelling of the forefoot. Chest X-Ray 03/22/18 06:00 CONCLUSION: Increased left mid lung pulmonary consolidation versus atelectasis. Chest X-Ray 03/23/18 06:00 CONCLUSION: Worsening patchy airspace disease, particularly in the left hemithorax. Life support tubes are stable in position Chest X-Ray 03/24/18 00:00 CONCLUSION: Mild interval improvement in bilateral pulmonary infiltrates. Chest X-Ray 03/24/18 06:00 CONCLUSION: Worsening bilateral pulmonary infiltrates, particularly in the right upper lobe Chest X-Ray 03/25/18 00:00 CONCLUSION: 1. No significant change in the bilateral pulmonary infiltrates most characteristic of pulmonary edema. Chest X-Ray 03/25/18 06:00 CONCLUSION: 1. Stable biapical airspace disease with left basilar consolidation and possible effusion. 2. Stable position of life-support tubes. Abdomen X-Ray 03/26/18 00:00 CONCLUSION: Abdomen/Pelvis CT 03/28/18 00:00 CONCLUSION: 1. Minimal increase in the trace bilateral pleural effusions with compressive atelectasis in both bases. 2. Gallstones in a benign-appearing gallbladder 3. I don't see evidence for colitis. 4. I don't see inflammatory changes in the abdomen. Chest CT 03/28/18 00:00 CONCLUSION: 1. Biventricular cardiomegaly with coarse interstitial changes in both lungs. A component of this could be failure 2. Trace bilateral pleural effusions larger on the right.. These have decreased slightly in the interval. Foot MRI 03/28/18 00:00 CONCLUSION: 1. Difficult exam to interpret because of extensive soft tissue swelling. No obvious osteomyelitis. 2. Nuclear medicine tagged white cell study may help. Chest X-Ray 03/30/18 07:48 CONCLUSION: Improving upper lobe aeration with decreasing consolidation and congestion. Stable supportive devices. Chest X-Ray 04/01/18 05:00 CONCLUSION: Bilateral airspace opacities which are increased in the right lung base. Chest X-Ray 04/04/18 05:00 CONCLUSION: Persistent partially consolidated infiltrates the mid and lower lungs bilaterally. Chest X-Ray 04/05/18 16:00 CONCLUSION: Bilateral airspace disease has worsened slightly since April 04. Endotracheal tube, nasogastric tube and right central line unchanged. Chest X-Ray 04/08/18 05:00 CONCLUSION: No interval change. Chest X-Ray 04/10/18 03:56 CONCLUSION: Stable chest x-ray with bilateral lower lung zone airspace consolidation. Chest X-Ray 04/11/18 05:17 CONCLUSION: Stable chest x-ray with diffuse bilateral airspace consolidation that is more severe in the lower lung zones. Chest X-Ray 04/13/18 08:26 CONCLUSION: 1. No significant interval change. 2. Stable diffuse interstitial prominence. 3. Stable bilateral lower lung zone airspace disease. Chest X-Ray 04/15/18 00:00 CONCLUSION: Persistent diffuse nodular parenchymal lung disease. Chest X-Ray 04/16/18 00:00 CONCLUSION: Diffuse consolidation likely related to diffuse edema. Chest X-Ray 04/17/18 06:00 CONCLUSION: Diffuse consolidation likely related to diffuse processes such as edema, diffuse infection, or ARDS. Objective Remarks: GENERAL: 52 YO AAF critically ill currently orotracheally intubated SKIN: Warm and dry. HEAD: Normocephalic. EYES: Disconjugate. Left eye leftward gaze. Pupils are round 2 mm bilaterally and reactive. No scleral icterus. No injection or drainage. NECK: Supple, trachea midline. No JVD or lymphadenopathy. CARDIOVASCULAR: Regular rate and rhythm. S1, S2 predose for without murmur without murmurs, gallops, or rubs. RESPIRATORY: B breath sounds throughout. No wheezing. GASTROINTESTINAL: Abdomen soft, non-tender, nondistended. MUSCULOSKELETAL: + [place] peripheral edema. Neuro: sedated and intubated. Positive corneal reflex. Does not withdraw to pain. Currently on paralytic Assessment and Plan - Assessment and Plan Plan: NEURO/PSYCH: Acute encephalopathy - secondary to hypercapnia, improving. Abnormal brain CT with 3 mm hyperdensity in central [place] Major depressive disorder NOS Chronic opioid use Encephalomalacia right cerebellum/left occipital lobe Currently on scheduled oxycodone 20mg po q4h Quetiapine 50mg po q8h for delirium. Continue with midazolam drip at 12 mg an hour and fentanyl drip at 350 mg an hour for sedation/analgesia while intubated Start cisatracurium drip for vent synchrony Monitor neuro status. Daily sedation vacation when clinically appropriate.. Followup MRI brain 03/19 - No evidence of brainstem hemorrhage. Small foci of encephalomalacia in the left occipital lobe and right cerebellum. No evidence of acute infarct, hemorrhage, mass or edema. No evidence of enhancing intra- axial or extra-axial lesions. RESP: Acute hypercapnic and hypoxemic respiratory failure Severe ARDS Acute asthma exacerbation Healthcare associated pneumonia WISAM/OHS Prior tobacco abuse Bilateral pleural effusions right 2.2 cm. Left 1.3 cm LMA was placed in the field by EVAC. Intubated in ED 03/18. Intubation day #30 Continue with vent support keep sats >92% On albuterol/ipratropium aerosols every 6 hours with albuterol aerosols every 2 hours as needed for dyspnea Weaned off epoprostenol 03/23. Flolan 30,000 ng/ml resumed 04/09 currently at 50, 000 ng/mL On PRVC RR 20, TV 550, IT:1.10, PEEP:15, FIO2: 100% On methylprednisolone succinate 40mg IV daily, CXR ordered for a.m. 04/17 revealed diffuse ARDS CV: Hypertension Hyperlipidemia Chronic diastolic heart failure Paroxysmal atrial fibrillation on chronic anti-coagulation with warfarin Peripheral vascular disease/peripheral arterial disease Elevated troponin intermittent bradycardia Cor pulmonale biventricular dysfunction Monitor HR and BP keep MAP>65mmHg 2D echo 02/24/18ejection fraction 50%. Wall thickness upper limits of normal. Trace MR. Continue atorvastatin 40 mg daily for dyslipidemia Doppler bilateral upper and lower extremities revealed no acute thrombus amlodipine 10mg po daily discontinued per nephrology's request hydralazine 100mg po q8h, Clonidine 0.2 mg q. 7 days patch, carvedilol 3.125 mg BID, GI: History of GERD Chronic pancreatitis insufficiency Hypoalbuminemia vital high-protein @45 cc an hour per GIs recommendation Famotidine for GI prophylaxis Docusate sodium/senna 1 tablet twice daily for bowel regimen Creon home medication 3 times daily FEN/RENAL: Acute kidney injury superimposed on CKD Chronic kidney disease stage III Acute severe intravascular volume overload with pulmonary edema [place] catheter was placed in the emergency department. Monitor renal function, I/O's, avoid nephrotoxins On Bumex 2mg TID, Zaroxolyn 5mg Q12 Cr: 1.81 today from 1.75 Renal is following- Dr. Fraser ID: Acute healthcare associated pneumonia -ESBL positive Klebsiella pneumonia Veillonella species bacteremia Continue with abx per ID (ceftazidime/avibactam, Colistin nebs,) Monitor for signs of infections ( Fever, WBC) 04/10 Sputum: Normal resp jennifer Blood cultures 2 03/18 Veillonella spp. Repeat 03/20 no growth to date Sputum, ESBL positive Klebsiella pneumonia 04/04 Sputum 04/14 gram-negative rhona Pneumococcal urinary antigens, influenza a and B and chlamydia and mycoplasma all pending/negative HEME: Leukocytosis Chronic anemia/normocytic Monitor CBC daily. No indication for transfusion of blood products at this time. ENDO: Diabetes mellitus History of gout SSI q4h high scale Increase insulin detemir to 45 units subcu twice daily. Holding glipizide 10 mg twice daily and insulin glargine/home medication Holding allopurinol 300 mg daily/home medication MSK: Elevated BMI Osteoporosis/osteoarthritis PT evaluate and treat PROPH: SCDs for DVT prophylaxis. Heparin SQ ACCESS: Peripheral IV, right femoral central line placed 04/14 Doppler US B/l Upper and lower EXT negative for DVT on 03/19 Palliative care is following Critical care time 30 minutes, exclusive of separately billed procedures.
--- NOTE | 2018-04-17 14:19 | P.PNID ---
Subjective Remarks: remains on vent, now paralyzed and down to 50% of FiO2 PEEP15 small amount of secretions no fever no diarrhea sputum growing Kleb once again Antibiotics: avicaz colistine nebs vancomycin Allergies/Adverse Reactions: Allergies ibuprofen Allergy (Severe, Verified 03/18/18 17:58) MESSES WITH KIDNEYS Sulfa (Sulfonamide Antibiotics) Allergy (Severe, Verified 03/18/18 17:58) HIVES egg Allergy (Intermediate, Verified 03/18/18 17:58) Very Upset Stomach milk Allergy (Unknown, Verified 03/18/18 17:58) Heartburn Objective Vital Signs 04/16/18 15:09 04/16/18 16:00 04/16/18 18:00 Temperature 98 F Pulse Rate 55 L 55 L 55 L Respiratory Rate 20 Blood Pressure 130/60 Pulse Oximetry 99 95 04/16/18 19:58 04/16/18 20:00 04/16/18 21:06 Temperature 97.9 F Pulse Rate 66 66 78 Respiratory Rate 20 22 20 Blood Pressure 140/65 Pulse Oximetry 99 04/16/18 21:08 04/16/18 22:00 04/16/18 23:40 Temperature Pulse Rate 73 Respiratory Rate 20 20 Blood Pressure Pulse Oximetry 99 99 04/17/18 00:00 04/17/18 01:36 04/17/18 02:00 Temperature 98.3 F Pulse Rate 64 58 L Respiratory Rate 20 20 Blood Pressure 152/65 H Pulse Oximetry 99 100 04/17/18 03:39 04/17/18 04:00 04/17/18 04:07 Temperature 98 F Pulse Rate 51 L 55 L Respiratory Rate 20 20 20 Blood Pressure 151/66 H Pulse Oximetry 100 97 04/17/18 06:00 04/17/18 07:47 04/17/18 08:00 Temperature 98 F Pulse Rate 56 L 60 69 Respiratory Rate 20 23 Blood Pressure 145/64 H Pulse Oximetry 98 98 04/17/18 08:53 04/17/18 08:55 04/17/18 10:00 Temperature Pulse Rate 65 57 L Respiratory Rate 20 Blood Pressure Pulse Oximetry 95 04/17/18 11:31 04/17/18 12:00 Temperature 97 F L Pulse Rate 63 Respiratory Rate 20 16 Blood Pressure 118/67 Pulse Oximetry 98 Intake & Output 04/16/18 04/17/18 04/17/18 18:59 06:59 18:59 Intake Total 1069 / 1069 2200 / 2200 600 / 600 Output Total 2240 / 2240 3250 / 3250 Balance -1171 / -1171 -1050 / -1050 600 / 600 Weight 121 kg Intake: IV 500 / 500 1550 / 1550 600 / 600 Nimbex Inj 100 MG In NS Inj 240 750 / 750 500 / 500 ML @ 1 MCG/KG/MIN 18.75 mls/hr IV.CONT TITRATE PRN Rx#: [id number] Versed Inj 50 mg In 50 ml @ 2 100 / 100 100 / 100 50 / 50 MG/HR 2 mls/hr IV.CONT TITRATE PRN Rx#:[id number] Avycaz Inj 2.5 GM In NS Inj 50 50 / 50 100 / 100 50 / 50 ML @ 25 mls/hr IV.SIG Q8H [facility] Rx#:[id number] fentaNYL 10 mcg/mL Premix Drip 250 / 250 500 / 500 2,500 mcg In 250 ml @ 50 MCG/HR 5 mls/hr IV.SIG TITRATE PRN Rx #:[id number] Flolan (30,000 ng/mL) Neb 37.5 100 / 100 100 / 100 ML In NS Inj 62.5 ML @ As Directed NEB Q8H [facility] Rx#: [id number] Tube Feeding 449 / 449 500 / 500 Tube Irrigant 150 / 150 Water Bolus Amount 120 / 120 Output: Stool 240 / 240 50 / 50 Urine Amount (Catheter) 1999 3200 / 3200 Indwelling Urethral Catheter 1999 3200 / 3200 Other: Date of Last Bowel Movement 04/16/18 04/17/18 04/17/18 04/14/18 18:54 Sputum - Endotracheal Gram Stain - Final 04/14/18 18:54 Sputum - Endotracheal Sputum Culture - Final Klebsiella pneumoniae ESBL pos Multidrug Resistant 03/24/18 16:30 Bronchial Washings - Left Lower Lobe Fungal Smear - Final No fungal elements seen 03/24/18 16:30 Bronchial Washings - Left Lower Lobe Fungal Culture - Preliminary No growth in 3 weeks 03/24/18 16:30 Bronchial Washings - Left Lower Lobe Acid Fast Bacilli Smear - Final No acid fast bacilli seen 03/24/18 16:30 Bronchial Washings - Left Lower Lobe Mycobacterial Culture - Preliminary No growth in 3 weeks Lab - Hematology Results 04/15/18 04/16/18 04/16/18 22:49 03:51 23:27 WBC 11.6 H 12.8 H RBC 2.98 L 3.17 L Hgb 8.0 L 8.1 L 8.4 L Hct 24.5 L 24.4 L 25.8 L MCV 81.9 81.3 MCH 27.1 26.4 L MCHC 33.1 32.4 RDW 21.4 H D 21.8 H Plt Count 158 159 MPV 10.1 10.2 Neut % (Auto) 87.7 H 92.7 H Lymph % (Auto) 7.3 L 3.9 L [place] % (Auto) 4.5 3.3 Eos % (Auto) 0.3 0.0 Baso % (Auto) 0.2 0.1 Neut # (Auto) 10.2 H 11.9 H Lymph # (Auto) 0.9 L 0.5 L [place] # (Auto) 0.5 0.4 Eos # (Auto) 0.0 0.0 Baso # (Auto) 0.0 0.0 WBC Differential . . Differential Comment Auto diff final Auto diff final Lab - Chemistry Results 04/15/18 04/15/18 04/16/18 15:34 20:02 00:02 Sodium Potassium Chloride Carbon Dioxide Anion Gap BUN Creatinine Estimated GFR POC Glucose 336 H 348 H 310 H Random Glucose Calcium Phosphorus Magnesium Total Bilirubin AST ALT Alkaline Phosphatase Ammonia Total Protein Albumin 04/16/18 04/16/18 04/16/18 03:50 03:51 09:25 Sodium 140 Potassium 3.2 L Chloride 96 L Carbon Dioxide 32.3 H Anion Gap 12 BUN 154 H Creatinine 1.74 H Estimated GFR 37 L POC Glucose 273 H 247 H Random Glucose 264 H Calcium 9.8 Phosphorus Magnesium Total Bilirubin AST ALT Alkaline Phosphatase Ammonia Total Protein Albumin 04/16/18 04/16/18 04/16/18 11:57 16:24 20:16 Sodium Potassium Chloride Carbon Dioxide Anion Gap BUN Creatinine Estimated GFR POC Glucose 241 H 256 H 267 H Random Glucose Calcium Phosphorus Magnesium Total Bilirubin AST ALT Alkaline Phosphatase Ammonia Total Protein Albumin 04/16/18 04/16/18 04/17/18 23:27 23:27 04:13 Sodium 141 Potassium 3.9 Chloride 98 Carbon Dioxide 33.7 H Anion Gap 9 BUN 158 H Creatinine 1.61 H Estimated GFR POC Glucose 318 H Random Glucose 314 H Calcium 10.0 Phosphorus 2.8 Magnesium 1.9 Total Bilirubin 0.6 AST 21 ALT 33 Alkaline Phosphatase 83 Ammonia 13 Total Protein 7.3 D Albumin 2.3 L 04/17/18 04/17/18 08:15 11:38 Sodium Potassium Chloride Carbon Dioxide Anion Gap BUN Creatinine Estimated GFR POC Glucose 287 H 276 H Random Glucose Calcium Phosphorus Magnesium Total Bilirubin AST ALT Alkaline Phosphatase Ammonia Total Protein Albumin Imaging: ITS Impressions Head CT 03/18/18 18:46 CONCLUSION: 1. Solitary 3 mm hyperdensity in the central [place] of uncertain significance. Differential considerations include a punctate calcification and acute hemorrhage. 2. No acute findings in the supratentorial brain. Head MRI 03/19/18 00:00 CONCLUSION: 1. No evidence of brainstem hemorrhage. 2. Small foci of encephalomalacia in the left occipital lobe and right cerebellum 3. No evidence of acute infarct, hemorrhage, mass or edema. 4. No evidence of enhancing intra-axial or extra-axial lesions. Venous Doppler Study 03/19/18 00:00 CONCLUSION: The study is negative for bilateral lower extremity deep venous thrombosis. Foot X-Ray 03/22/18 00:00 CONCLUSION: No acute bony destructive change. Previous amputations as above. Fairly marked soft tissue swelling of the forefoot. Abdomen X-Ray 03/26/18 00:00 CONCLUSION: Abdomen/Pelvis CT 03/28/18 00:00 CONCLUSION: 1. Minimal increase in the trace bilateral pleural effusions with compressive atelectasis in both bases. 2. Gallstones in a benign-appearing gallbladder 3. I don't see evidence for colitis. 4. I don't see inflammatory changes in the abdomen. Chest CT 03/28/18 00:00 CONCLUSION: 1. Biventricular cardiomegaly with coarse interstitial changes in both lungs. A component of this could be failure 2. Trace bilateral pleural effusions larger on the right.. These have decreased slightly in the interval. Foot MRI 03/28/18 00:00 CONCLUSION: 1. Difficult exam to interpret because of extensive soft tissue swelling. No obvious osteomyelitis. 2. Nuclear medicine tagged white cell study may help. Chest X-Ray 04/17/18 06:00 CONCLUSION: Diffuse consolidation likely related to diffuse processes such as edema, diffuse infection, or ARDS. Physical Exam: no acute distress, morbidly obese Head: Present: normocephalic, atraumatic, prominent facial swelling Eye: Present: improved periorbital swelling ENT: Present: mucous membranes moist, oropharynx clear NECK: trachea midline LUNGs: patient mechanically ventilated, fairly clear Cardiovascular : RRR, S1, S2 no murmurs, rubs , gallops Abdominal : soft, less distended no reaction to palpation, no audible bowel sounds no palpable organomegaly liquid stool in rectal collection system : hernandez in place with clear light yellow urine hernandez in place with small amount of clear yellow urine Extremities: edema is minimal prominent tree bark meeks Skin : intact, dry, no rash well perfused Neurological : sedated and paralysed Psychiatric : unable to assess LINE: R IJ removed Assessment and Plan - Plan sp cardiac arrest Anaerobic sepsis; veillonella ? source : GI vs osteo CT and MRI diid not reveal source of her anaerobic sepsis Xrays negative, CT/MR not feasible 2/2 clincial cond'n Acute VDRF, increasing vent requirement s - difficulty weaning PNA, ESBL/ ? [facility]PC Kleb R to zerbaxa, S acvycaz and vabomere worsening CXR worsening oxygenation Persiastently growing GNB in the sputum YOU - stable she is doing worse Persistent leukocytosis - much worse Anemia, new. No clincially apparent bleed - Prognosis is poorr due to progressive resp failure survival of this hospitalisation is not expected - cont avycaz, colistine nebs dc vancomycin - adjsut dose per renal fnx - fu repeat sputum clx S to additional abx - monitor WBC CXR in am dw RN dw CCM attending
--- NOTE | 2018-04-17 14:23 | P.PNNP ---
Subjective Interval history: Repeat labs pending. On 50% FiO2. Family at bedside. <Myrtle Levi - Last Filed: 04/17/18 14:20> Physical Exam Vital signs: Vital Signs 04/16/18 15:09 04/16/18 16:00 04/16/18 18:00 Temperature 98 F Pulse Rate 55 L 55 L 55 L Respiratory Rate 20 Blood Pressure 130/60 Pulse Oximetry 99 95 04/16/18 19:58 04/16/18 20:00 04/16/18 21:06 Temperature 97.9 F Pulse Rate 66 66 78 Respiratory Rate 20 22 20 Blood Pressure 140/65 Pulse Oximetry 99 04/16/18 21:08 04/16/18 22:00 04/16/18 23:40 Temperature Pulse Rate 73 Respiratory Rate 20 20 Blood Pressure Pulse Oximetry 99 99 04/17/18 00:00 04/17/18 01:36 04/17/18 02:00 Temperature 98.3 F Pulse Rate 64 58 L Respiratory Rate 20 20 Blood Pressure 152/65 H Pulse Oximetry 99 100 04/17/18 03:39 04/17/18 04:00 04/17/18 04:07 Temperature 98 F Pulse Rate 51 L 55 L Respiratory Rate 20 20 20 Blood Pressure 151/66 H Pulse Oximetry 100 97 04/17/18 06:00 04/17/18 07:47 04/17/18 08:00 Temperature 98 F Pulse Rate 56 L 60 69 Respiratory Rate 20 23 Blood Pressure 145/64 H Pulse Oximetry 98 98 04/17/18 08:53 04/17/18 08:55 04/17/18 10:00 Temperature Pulse Rate 65 57 L Respiratory Rate 20 Blood Pressure Pulse Oximetry 95 04/17/18 11:31 04/17/18 12:00 Temperature 97 F L Pulse Rate 63 Respiratory Rate 20 16 Blood Pressure 118/67 Pulse Oximetry 98 Intake & Output 04/16/18 04/17/18 04/17/18 18:59 06:59 18:59 Intake Total 1069 / 1069 2200 / 2200 600 / 600 Output Total 2240 / 2240 3250 / 3250 Balance -1171 / -1171 -1050 / -1050 600 / 600 Weight 121 kg Intake: IV 500 / 500 1550 / 1550 600 / 600 Nimbex Inj 100 MG In NS Inj 240 750 / 750 500 / 500 ML @ 1 MCG/KG/MIN 18.75 mls/hr IV.CONT TITRATE PRN Rx#: [id number] Versed Inj 50 mg In 50 ml @ 2 100 / 100 100 / 100 50 / 50 MG/HR 2 mls/hr IV.CONT TITRATE PRN Rx#:[id number] Avycaz Inj 2.5 GM In NS Inj 50 50 / 50 100 / 100 50 / 50 ML @ 25 mls/hr IV.SIG Q8H [facility]ACK[facility] Rx#:[id number] fentaNYL 10 mcg/mL Premix Drip 250 / 250 500 / 500 2,500 mcg In 250 ml @ 50 MCG/HR 5 mls/hr IV.SIG TITRATE PRN Rx #:[id number] Flolan (30,000 ng/mL) Neb 37.5 100 / 100 100 / 100 ML In NS Inj 62.5 ML @ As Directed NEB Q8H [facility] Rx#: [id number] Tube Feeding 449 / 449 500 / 500 Tube Irrigant 150 / 150 Water Bolus Amount 120 / 120 Output: Stool 240 / 240 50 / 50 Urine Amount (Catheter) 1999 3200 / 3200 Indwelling Urethral Catheter 1999 3200 / 3200 Other: Date of Last Bowel Movement 04/16/18 04/17/18 04/17/18 - Constitutional no acute distress, morbidly obese - Routine HEENT Exam Eye: Present: periorbital swelling - Routine Neck Exam Present: supple, full ROM - Routine Respiratory Exam Present: patient mechanically ventilated, CTA bilaterally - Routine Cardiovascular Exam Present: RRR, S1, S2 - Routine Abdominal Exam Present: soft, normoactive bowel sounds - Routine Extremities Exam Present: edema, pulses intact, amputation - Routine Skin Exam Present: intact, dry, warm - Routine Neurological Exam sedated, paralyzed, unresponsive - Detailed Neurological Exam: Coma Scale Eye Opening: None Verbal Response: None Motor Response: None Zwingle Coma Scale Total: 3 expected given paralytic medication - Routine Psychiatric Exam Present: unable to assess - Urinary Catheter Management Indwelling Urethral Catheter Cath placed during this visit: yes Urethral indwelling: Yes Reason for continuing: Acute urinary retention Insertion date: 03/18/18 Insertion time: 21:00 <Myrtle Levi - Last Filed: 04/17/18 14:20> Vital signs: Vital Signs 04/16/18 15:09 04/16/18 16:00 04/16/18 18:00 Temperature 98 F Pulse Rate 55 L 55 L 55 L Respiratory Rate 20 Blood Pressure 130/60 Pulse Oximetry 99 95 04/16/18 19:58 04/16/18 20:00 04/16/18 21:06 Temperature 97.9 F Pulse Rate 66 66 78 Respiratory Rate 20 22 20 Blood Pressure 140/65 Pulse Oximetry 99 04/16/18 21:08 04/16/18 22:00 04/16/18 23:40 Temperature Pulse Rate 73 Respiratory Rate 20 20 Blood Pressure Pulse Oximetry 99 99 04/17/18 00:00 04/17/18 01:36 04/17/18 02:00 Temperature 98.3 F Pulse Rate 64 58 L Respiratory Rate 20 20 Blood Pressure 152/65 H Pulse Oximetry 99 100 04/17/18 03:39 04/17/18 04:00 04/17/18 04:07 Temperature 98 F Pulse Rate 51 L 55 L Respiratory Rate 20 20 20 Blood Pressure 151/66 H Pulse Oximetry 100 97 04/17/18 06:00 04/17/18 07:47 04/17/18 08:00 Temperature 98 F Pulse Rate 56 L 60 69 Respiratory Rate 20 23 Blood Pressure 145/64 H Pulse Oximetry 98 98 04/17/18 08:53 04/17/18 08:55 04/17/18 10:00 Temperature Pulse Rate 65 57 L Respiratory Rate 20 Blood Pressure Pulse Oximetry 95 04/17/18 11:31 04/17/18 12:00 04/17/18 15:04 Temperature 97 F L Pulse Rate 63 58 L Respiratory Rate 20 16 20 Blood Pressure 118/67 Pulse Oximetry 98 Intake & Output 04/16/18 04/17/18 04/17/18 18:59 06:59 18:59 Intake Total 1069 / 1069 2200 / 2200 850 / 850 Output Total 2240 / 2240 3250 / 3250 Balance -1171 / -1171 -1050 / -1050 850 / 850 Weight 121 kg Intake: IV 500 / 500 1550 / 1550 850 / 850 Nimbex Inj 100 MG In NS Inj 240 750 / 750 750 / 750 ML @ 1 MCG/KG/MIN 18.75 mls/hr IV.CONT TITRATE PRN Rx#: [id number] Versed Inj 50 mg In 50 ml @ 2 100 / 100 100 / 100 50 / 50 MG/HR 2 mls/hr IV.CONT TITRATE PRN Rx#:[id number] Avycaz Inj 2.5 GM In NS Inj 50 50 / 50 100 / 100 50 / 50 ML @ 25 mls/hr IV.SIG Q8H [facility] Rx#:[id number] fentaNYL 10 mcg/mL Premix Drip 250 / 250 500 / 500 2,500 mcg In 250 ml @ 50 MCG/HR 5 mls/hr IV.SIG TITRATE PRN Rx #:[id number] Flolan (30,000 ng/mL) Neb 37.5 100 / 100 100 / 100 ML In NS Inj 62.5 ML @ As Directed NEB Q8H [facility] Rx#: [id number] Tube Feeding 449 / 449 500 / 500 Tube Irrigant 150 / 150 Water Bolus Amount 120 / 120 Output: Stool 240 / 240 50 / 50 Urine Amount (Catheter) 1999 3200 / 3200 Indwelling Urethral Catheter 1999 3200 / 3200 Other: Date of Last Bowel Movement 04/16/18 04/17/18 04/17/18 - Urinary Catheter Management Indwelling Urethral Catheter Cath placed during this visit: no <Alverto Fraser - Last Filed: 04/17/18 15:09> Assessment and Plan - Assessment (1) Acute renal failure superimposed on stage 3 chronic kidney disease Code(s): N17.9 - Acute kidney failure, unspecified; N18.3 - Chronic kidney disease, stage 3 (moderate) Status: Acute Plan: Her baseline creatinine runs 1.6-2, GFR 44. YOU most likely due to cardiac arrest and decreased renal perfusion. Her renal function has began to improved. Repeat labs in process. She has had a very high BUN for the past couple of weeks. Oxygen requirement improving. Still with edema. Needs continued diuresis. On Bumex TID 2 mg. Metolazone still on hold. She is non oliguric and responding to diuretics. Avoid nephrotoxic agents,dose appropriate to renal status. Minimize non essential medications. D/W her family. They do not wish to begin dialysis if needed. Her son makes the medical decisions. (2) Acute respiratory failure with hypoxemia Code(s): J96.01 - Acute respiratory failure with hypoxia Status: Acute Plan: ARDS. High oxygen requirement (improved to 50%, PEEP 15). Poor prognosis. Management per critical care service. Needs better oxygenation prior to trach placement. (3) Diabetes mellitus type 2 in obese Code(s): E11.69 - Type 2 diabetes mellitus with other specified complication; E66.9 - Obesity, unspecified Status: Chronic Plan: Maintain glucose 140-180mg/dL while hospitalized. Use insulin if needed. (4) Hypertension Code(s): I10 - Essential (primary) hypertension Status: Chronic Plan: Monitor BP. Continue medications as ordered. (5) HCAP (healthcare-associated pneumonia) Code(s): J18.9 - Pneumonia, unspecified organism Status: Acute Plan: ID is following, managing antibiotics. Currently on Avycaz and Colistin neb. s/p bronch with cultures reviewed. Klebsiella PNA. (6) Diastolic heart failure Code(s): I50.30 - Unspecified diastolic (congestive) heart failure Status: Acute Plan: Monitor fluid status. Continue diuresis. She had an echo previous admission, EF 50%. <Myrtle Levi - Last Filed: 04/17/18 14:20> - Assessment (1) Acute renal failure superimposed on stage 3 chronic kidney disease Code(s): N17.9 - Acute kidney failure, unspecified; N18.3 - Chronic kidney disease, stage 3 (moderate) Status: Acute (2) Acute respiratory failure with hypoxemia Code(s): J96.01 - Acute respiratory failure with hypoxia Status: Acute (3) Diabetes mellitus type 2 in obese Code(s): E11.69 - Type 2 diabetes mellitus with other specified complication; E66.9 - Obesity, unspecified Status: Chronic (4) Hypertension Code(s): I10 - Essential (primary) hypertension Status: Chronic (5) HCAP (healthcare-associated pneumonia) Code(s): J18.9 - Pneumonia, unspecified organism Status: Acute (6) Diastolic heart failure Code(s): I50.30 - Unspecified diastolic (congestive) heart failure Status: Acute - Attending Attestation patient was seen and examined. Agree with above assessment and plan. Patient's renal function has improved. Continue diuretics. <Alverto Fraser - Last Filed: 04/17/18 15:09>
[2018-04-17 14:30] LABS: Albumin 2.1 g/dL (3.4-5.0); Calcium 10.1 mg/dL (8.5-10.1); Carbon Dioxide 33.5 meq/L (21.0-32.0); Phosphorus 2.8 mg/dL (2.5-4.9); Potassium 3.8 meq/L (3.5-5.1)
[2018-04-17] MEDS: SODIUM CHLOR 0.9% IV.CONT PRN (21:41)
[2018-04-17] MEDS: CISATRACURIUM IV.CONT PRN (21:41)
[2018-04-18] MEDS: Insulin NovoLIN Regular Correctional Sugar Inj SQ SCH ×6 (00:06→20:27)
[2018-04-18] MEDS: Oral Hygiene Kit OROPHARYNG SCH ×4 (00:07→16:56)
[2018-04-18 00:18] LABS: Baso % (Auto) 0.3 % (0.0-2.0); Eos % (Auto) 0.3 % (0.0-4.0); Hemoglobin 8.2 gm/dL (11.6-15.3); Lymph # (Auto) 0.8 th/mm3 (1.0-4.8); Lymph % (Auto) 7.9 % (9.0-44.0); Mean Corpuscular HGB Conc 32.9 % (32.0-36.0); Mean Corpuscular Hemoglobin 26.6 pg (27.0-34.0); Mean Corpuscular Volume 80.9 fL (80.0-100.0); Mean Platelet Volume 9.8 fL (7.0-11.0); Mono # (Auto) 0.5 th/mm3 (0.0-0.9); Mono % (Auto) 4.6 % (0.0-8.0); Neut # (Auto) 8.6 th/mm3 (1.8-7.7); Neut % (Auto) 86.9 % (16.0-70.0); Platelet Count 160 th/mm3 (150-450); Red Blood Count 3.09 mil/mm3 (4.00-5.30); Red Cell Distribution Width 21.6 % (11.6-17.2); White Blood Count 9.9 th/mm3 (4.0-11.0)
[2018-04-18] MEDS: Midazolam 50 MG/50 ML Inj 50 MG/50 ML BAG IV.CONT PRN ×4 (01:13→20:31)
[2018-04-18 01:23] LABS: Alanine Aminotransferase 30 U/L (10-53); Albumin 2.1 g/dL (3.4-5.0); Alkaline Phosphatase 80 U/L (45-117); Anion Gap 9 meq/L (5-15); Aspartate Aminotransferase 17 U/L (15-37); Blood Urea Nitrogen 131 mg/dL (7-18); Calcium 10.1 mg/dL (8.5-10.1); Carbon Dioxide 32.7 meq/L (21.0-32.0); Chloride 101 meq/L (98-107); Glomerular Filtration Rate 41 mL/min (>89); Glucose,Random 271 mg/dL (74-106); Magnesium 1.8 mg/dL (1.5-2.5); Phosphorus 2.4 mg/dL (2.5-4.9); Potassium 3.3 meq/L (3.5-5.1); Sodium 143 meq/L (136-145); Total Protein 7.1 g/dL (6.4-8.2)
[2018-04-18] MEDS: SODIUM CHLOR 0.9% IV.CONT PRN ×5 (01:26→23:27)
[2018-04-18] MEDS: CISATRACURIUM IV.CONT PRN ×5 (01:26→23:27)
[2018-04-18] MEDS: EPOPROSTENOL NEB SCH ×6 (02:28→18:26)
[2018-04-18] MEDS: SODIUM CHLOR NEB SCH ×6 (02:28→18:26)
[2018-04-18] MEDS: Hypromellose 0.3% Opth Gel 10 GM Bottle EACH EYE SCH ×3 (02:30→20:26)
[2018-04-18] MEDS: QUEtiapine 25 MG Tablet PO SCH ×3 (05:03→21:21)
[2018-04-18] MEDS: Ceftazidime/Avibactam Inj 2.5 GM in Sodium Chlor 0.9% Inj 50 ML IV.SIG SCH ×3 (05:04→21:21)
[2018-04-18] MEDS ORDERED: Potassium Phosphate Inj 15 MMOL in Sodium Chlor 0.9% Inj 250 ML IV.SIG ONE (06:00)
[2018-04-18] MEDS: fentaNYL 10 mcg/mL Premix Drip 2,500 MCG/250 ML BAG IV.SIG PRN ×2 (08:06→18:46)
[2018-04-18] MEDS: Famotidine 20 MG Tablet PO SCH ×2 (08:26→20:28)
[2018-04-18] MEDS: MethylPREDNISolone Sod Succinate Inj 40 MG/ML Vial IV.PUSH SCH (08:26)
[2018-04-18] MEDS: Senna/Docusate Sodium 8.6/50 MG Tablet PO SCH ×2 (08:27→20:28)
[2018-04-18] MEDS: Heparin - SQ 10,000 UNITS/ML Vial SQ SCH ×2 (08:27→20:29)
[2018-04-18] MEDS: Lipase/Protease/Amylase 24/76/120 DR Capsule PO SCH ×3 (08:27→17:41)
[2018-04-18] MEDS: Chlorhexidine 0.12% Oral Kit 15 ML UDC OROPHARYNG SCH ×2 (08:28→20:31)
[2018-04-18] MEDS: Insulin Detemir Inj 1,000 UNIT/10 ML Vial SQ SCH ×2 (08:28→20:27)
--- NOTE | 2018-04-18 08:42 | P.PNCC ---
Subjective Subjective Remarks/Hospital Course: 52-year-old female with past medical history of diabetes mellitus, hypertension, hyperlipidemia, atrial fibrillation on chronic anticoagulation with warfarin, chronic diastolic heart failure, asthma, WISAM, peripheral vascular disease, super morbid obesity. She has been at [facility] since 03/02/18. Abeba JACOBO was called due to respiratory distress. When they arrived as she was found to be in respiratory distress with sats in the 70s. She was communicating with them and reportedly said "leave me alone". She then had PEA arrest. She received CPR reportedly 10-15 minutes and received 2 doses of epinephrine. LMA was placed by EVAC. LMA was removed and she was intubated by Dr. Daly after receiving etomidate 20 mg IV and succinylcholine. She has demonstrated purposeful movements post intubation, and is now on a propofol drip. She was recently admitted to [facility] 02/24-03/02 due to hypoglycemia, fall after isolated episode of diarrhea, hypoxia requiring HFNC. She has chronic interstitial changes on CXR. Reviewed records from [facility] which indicate she completed a 7 day course of Levaquin and has been on a prednisone taper. Current CXR shows bibasilar opacities. WBC is 16 ( previously 7.9). She has acute hypercapneic and hypoxemic respiratory failure. 03/19: Afebrile. Remains on 100% FiO2 PEEP of 12. Central has been placed for access due to multiple drips. Plan MRI brain today if respiratory status improves. Does not tolerate lying flat. Likely will need epoprostenol and rotaprone 03/20: Started on epoprostenol and currently on a rotor from bed. Currently on cisatracurium drip at 1 mcg/kg/min. Diuresing well. 03/21: Weaning down epoprostenol. Remains on cisatracurium drip at 6 mcg/kg/ min. Diuresis 6 L. Saturation was improved FiO2 down to 45%. 03/22: Hypothermic overnight. Currently euthermic. Excellent response to bumetanide drip. FiO2 down to 40%. PEEP down to 8. Possible discontinue paralytic agent today. 03/23: Resting comfortable in bed in no acute distress. Afebrile. Desaturated so placed back on rotor prone bed. Creatinine slowly increasing. 03/24: Afebrile. Worsening chest x-ray it appears to be volume overloaded again. +10 L past 24 hours. Will restart on bumetanide drip. Plan for bronchoscopy today. Switch to ceftazidime/avibactam secondary to ESBL positive Klebsiella pneumonia 03/25: FiO2 to 55%. Tolerating demanding drip with -2 L past 24 hours. Bronchoscopy results pending. Positive BM. Restarting tube feeding today 03/26: Cr continues to rise, although clinically continues to appear severely volume overloaded. fio2 70%. supine all night. off nimbex. off flolan. ID managing ESBL/MDRO/KPC Klebsiella and anaerobic bacteremia. 03/27: off rotaprone bed. multiple desat episodes overnight. on 100% fio2 and PEEP 10 this AM. good diuresis with net -2L/24h. bumex drip continues. awakens and follows commands. 03/28: not diuresing as well as yesterday. wbc uptrending. 2 more episodes of bradycardia, not associated with hypoxia. however, fio2 remains severely elevated. I increased her peep to 14. still arouses and moves all extremities. high concern for ongoing infectious etiology, but with high o2 requirements and intermittent bradycardia requiring atropine, at present too unstable for repeat imaging. 03/29: ct C/A/P without overt infectious source. does demonstrate radiographic evidence of biventricular dysfunction. bedside echo today demonstrates the same , and dilated IVC without respiratory variation. off vasopressors. required atropine for a HR of 15 once overnight. still very hypoxic: changed to APRV 5:1 , 28/0, 4/0.8. 03/30: remains on APRV with hypoxia. multiple episodes of bradycardia and a 18 second pause yesterday. trialed on dobutamine but with multiple dysrhythmias. now on low-dose dopamine to mitigate bradycardia. adequate diuresis overnight. cxr improving slightly. still remains volume overloaded, and YOU persists. 03/31: mild improvements in fio2. remains on APRV. no more bradycardia today. still on dopamine to prevent pauses/bradycardia. YOU persists, but stable. unable to diurese yesterday and now net +2L despite fluid overload. must increase forced diuresis to improve hypoxemia. 04/01: Remains sedated, orally intubated on mechanical ventilation. Being diuresed. Started on Reglan in view of high gastric residuals and decreasing fentanyl as tolerated. 04/02: Remains sedated, orally intubated on APRV mode mechanical ventilation. 04/03: Remains sedated, orally intubated on mechanical ventilation. Awaiting family meeting with palliative care to decide goals of therapy. Being diuresed. 04/04: Remains sedated, orally intubated on mechanical ventilation. Switch to PRVC mode overnight. On 50% FiO2, PEEP +8. Family deciding regarding goals of therapy. 04/05: Remains sedated, orally intubated on mechanical ventilation. PEEP increased to +10 overnight due to hypoxia. 04/06: Remains sedated, orally intubated on mechanical ventilation. Worsening oxygenation since yesterday. Chest x-ray showed fluid overload. Resume Bumex twice daily yesterday in addition to Zaroxolyn PO. 04/07: Remains sedated, orally intubated on mechanical ventilation. Diuresed. Renal function remains a concern. Started on colistin nebs per ID due to very resistant organisms in sputum. Eventually needs tracheostomy and PEG tube placement. 04/08 Patient remains sedated with Versed and Fentanyl infusion. On Cardene drip.Had T:99.7 last night. Remains on high PEEP and FIO2( PEEP:15, FIO2: 65%) 04/09 Patient is intubated with Versed and Fentanyl drips. Tmax 100.3. Now on PRVC with PEEP:12 and FIO2 100% 04/10 Patient is sedated with Fentanyl and Versed drips. Flolan started yesterday. On PRVC with PEEP: 15 and FIO2 100%. Afebrile. 04/11 Patient was hypoxic overnight with [id number] given Rocuronium 100mg IV for desaturation and vent synchrony remains on high PEEP15 with 100%FIO2. Sedated with Versed and Fentanyl drips. CXR this morning shows diffuse b/l infiltrates severe in lower lung zones. 04/12 Patient remains sedated and intubated and on Flolan. Afebrile. 04/13 Patient remains sedated with Versed and Fentanyl and intubated. Afebrile. On Flolan . On PRVC with PEEP: 15, FIO2 down 70%. 04/14 Patient had another episode of desaturation overnight now on PRVC with PEEP :15 and 100% FIO2. T:99.7 last night. Sedated with Versed/Fentanyl drips. On Flolan 04/15 Patient remans sedated with Fentanyl, Versed and intubated. Afebrile. On PRVC with PEEP:15 and FIO2 75%. 04/16: Intubation day #29. Afebrile. FiO2 increased to 100%. More secretions. Will need to paralyze with cisatracurium drip for vent synchrony as patient is currently out of peeping despite maximum midazolam and fentanyl drips. Remains on epoprostenol 04/17: The patient day #30. Remains on cisatracurium drip at 5 mcg/kg/min. FiO2 down to 50%. Chest x-ray reveals diffuse ARDS. Tolerating tube feeds. SUBJECTIVE 04/18: Intubation day #31. We will attempt to wean off cisatracurium drip. FiO2 remains around 50%. Tolerating tube feeding. Objective Vital Signs / I&O: Vital Signs 04/17/18 08:53 04/17/18 08:55 04/17/18 09:00 Temperature Pulse Rate 65 64 Respiratory Rate 20 37 H Blood Pressure 132/63 Pulse Oximetry 95 94 L 04/17/18 09:30 04/17/18 10:00 04/17/18 10:30 Temperature Pulse Rate 59 L 57 L 53 L Respiratory Rate 40 H 42 H 38 H Blood Pressure 144/67 H Pulse Oximetry 94 L 94 L 93 L 04/17/18 11:00 04/17/18 11:30 04/17/18 11:31 Temperature Pulse Rate 58 L 58 L Respiratory Rate 40 H 39 H 20 Blood Pressure 166/68 H Pulse Oximetry 94 L 95 04/17/18 12:00 04/17/18 12:01 04/17/18 12:30 Temperature 97 F L Pulse Rate 59 L 58 L 57 L Respiratory Rate 22 37 H 39 H Blood Pressure 118/67 152/67 H Pulse Oximetry 95 95 95 04/17/18 13:00 04/17/18 13:01 04/17/18 13:30 Temperature Pulse Rate 58 L 58 L 58 L Respiratory Rate 24 39 H 42 H Blood Pressure 140/66 Pulse Oximetry 95 95 95 04/17/18 14:00 04/17/18 14:30 04/17/18 15:00 Temperature Pulse Rate 60 60 59 L Respiratory Rate 40 H 41 H 60 H Blood Pressure 151/65 H 159/72 H Pulse Oximetry 95 95 95 04/17/18 15:04 04/17/18 15:30 04/17/18 16:00 Temperature 97.5 F L Pulse Rate 58 L 59 L 61 Respiratory Rate 20 41 H 42 H Blood Pressure 159/70 H Pulse Oximetry 92 L 93 L 04/17/18 16:01 04/17/18 16:30 04/17/18 17:00 Temperature Pulse Rate 61 59 L 60 Respiratory Rate 59 H 40 H 57 H Blood Pressure 159/70 H 160/73 H Pulse Oximetry 92 L 92 L 93 L 04/17/18 17:30 04/17/18 18:00 04/17/18 18:30 Temperature Pulse Rate 60 63 57 L Respiratory Rate 44 H 43 H 33 H Blood Pressure 156/70 H Pulse Oximetry 95 96 95 04/17/18 19:00 04/17/18 19:01 04/17/18 19:30 Temperature Pulse Rate 56 L 57 L 66 Respiratory Rate 39 H 34 H 19 Blood Pressure 142/65 H Pulse Oximetry 95 96 98 04/17/18 20:00 04/17/18 20:12 04/17/18 20:18 Temperature 98.7 F Pulse Rate 65 67 Respiratory Rate 34 H 21 20 Blood Pressure 155/71 H Pulse Oximetry 95 97 04/17/18 20:30 04/17/18 20:34 04/17/18 21:00 Temperature Pulse Rate 69 67 66 Respiratory Rate 20 20 23 Blood Pressure 169/72 H Pulse Oximetry 98 99 04/17/18 21:30 04/17/18 22:00 04/17/18 22:01 Temperature Pulse Rate 61 62 62 Respiratory Rate 34 H 38 H 29 H Blood Pressure 156/70 H Pulse Oximetry 97 97 97 04/17/18 22:30 04/17/18 23:00 04/17/18 23:30 Temperature Pulse Rate 63 63 65 Respiratory Rate 25 H 38 H 33 H Blood Pressure 140/65 Pulse Oximetry 92 L 92 L 94 L 04/18/18 00:00 04/18/18 00:30 04/18/18 01:00 Temperature 98.4 F 98.4 F Pulse Rate 68 68 66 Respiratory Rate 40 H 32 H 34 H Blood Pressure 152/70 H 159/72 H Pulse Oximetry 94 L 95 94 L 04/18/18 01:19 04/18/18 01:30 04/18/18 02:00 Temperature Pulse Rate 66 67 Respiratory Rate 20 38 H 40 H Blood Pressure 160/69 H Pulse Oximetry 95 94 L 94 L 04/18/18 02:30 04/18/18 03:00 04/18/18 03:30 Temperature Pulse Rate 72 74 76 Respiratory Rate 27 H 27 H 20 Blood Pressure 163/70 H Pulse Oximetry 94 L 94 L 94 L 04/18/18 04:00 04/18/18 04:28 04/18/18 04:30 Temperature 98.4 F Pulse Rate 76 77 78 Respiratory Rate 28 H 20 24 Blood Pressure 155/70 H Pulse Oximetry 93 L 93 L 93 L 04/18/18 05:00 04/18/18 06:00 04/18/18 07:49 Temperature Pulse Rate 74 81 Respiratory Rate 25 H 20 Blood Pressure 154/70 H Pulse Oximetry 93 L 96 Intake & Output 04/17/18 04/18/18 04/18/18 18:59 06:59 18:59 Intake Total 2109 / 2109 2966.1 / 2966.1 800 / 800 Output Total 3700 / 3700 2850 / 2850 Balance -1591 / -1591 116.1 / 116.1 800 / 800 Weight 121 kg Intake: IV 1450 / 1450 2204.1 / 2204.1 800 / 800 Nimbex Inj 100 MG In NS Inj 240 1000 / 1000 500 / 500 ML @ 1 MCG/KG/MIN 18.75 mls/hr IV.CONT TITRATE PRN Rx#: [id number] Nimbex Inj 200 MG In NS Inj 480 1000 / 1000 500 / 500 ML @ 1 MCG/KG/MIN 18.75 mls/hr IV.CONT TITRATE PRN Rx#: [id number] Versed Inj 50 mg In 50 ml @ 2 100 / 100 34.1 / 34.1 50 / 50 MG/HR 2 mls/hr IV.CONT TITRATE PRN Rx#:[id number] Avycaz Inj 2.5 GM In NS Inj 50 100 / 100 50 / 50 ML @ 25 mls/hr IV.SIG Q8H JACKI Rx#:[id number] fentaNYL 10 mcg/mL Premix Drip 250 / 250 250 / 250 2,500 mcg In 250 ml @ 50 MCG/HR 5 mls/hr IV.SIG TITRATE PRN Rx #:[id number] Flolan (30,000 ng/mL) Neb 37.5 100 / 100 ML In NS Inj 62.5 ML @ As Directed NEB Q8H [facility] Rx#: [id number] Tube Feeding 559 / 559 462 / 462 Tube Irrigant 100 / 100 300 / 300 Output: Stool 200 / 200 Urine Amount (Catheter) 3500 / 3500 2850 / 2850 Indwelling Urethral Catheter 3500 / 3500 2850 / 2850 Other: Date of Last Bowel Movement 04/17/18 04/17/18 Result Diagrams: 04/18/18 00:04 04/18/18 00:04 Other Results: Microbiology 04/14/18 18:54 Sputum - Endotracheal Gram Stain - Final 04/14/18 18:54 Sputum - Endotracheal Sputum Culture - Final Klebsiella pneumoniae ESBL pos Multidrug Resistant 03/24/18 16:30 Bronchial Washings - Left Lower Lobe Fungal Smear - Final No fungal elements seen 03/24/18 16:30 Bronchial Washings - Left Lower Lobe Fungal Culture - Preliminary No growth in 3 weeks 03/24/18 16:30 Bronchial Washings - Left Lower Lobe Acid Fast Bacilli Smear - Final No acid fast bacilli seen 03/24/18 16:30 Bronchial Washings - Left Lower Lobe Mycobacterial Culture - Preliminary No growth in 3 weeks 04/10/18 13:05 Sputum - Endotracheal Gram Stain - Final 04/10/18 13:05 Sputum - Endotracheal Sputum Culture - Final Heavy growth normal respiratory jennifer 04/04/18 15:44 Sputum - Endotracheal Gram Stain - Final 04/04/18 15:44 Sputum - Endotracheal Sputum Culture - Final Klebsiella pneumoniae ESBL pos Multidrug Resistant 03/26/18 15:51 Blood - Peripheral Aerobic Blood Culture - Final No growth in 5 days 03/26/18 15:51 Blood - Peripheral Anaerobic Blood Culture - Final No growth in 5 days 03/26/18 14:39 Blood - Peripheral Aerobic Blood Culture - Final No growth in 5 days 03/26/18 14:39 Blood - Peripheral Anaerobic Blood Culture - Final No growth in 5 days 03/26/18 16:21 Catheterized Urine Urine Culture - Final No growth in 48 hours 03/26/18 17:33 Stool Stool Occult Blood (NORIS) - Final Hemoccult positive 03/24/18 16:30 Bronchial - Left Lower Lobe Gram Stain - Final 03/24/18 16:30 Bronchial - Left Lower Lobe Bronchial Culture - Final Klebsiella pneumoniae Multidrug Resistant 03/20/18 09:40 Blood - Line Aerobic Blood Culture - Final No growth in 5 days 03/20/18 09:40 Blood - Line Anaerobic Blood Culture - Final No growth in 5 days 03/22/18 22:00 Sputum - Endotracheal Gram Stain - Final 03/22/18 22:00 Sputum - Endotracheal Sputum Culture - Final Klebsiella pneumoniae ESBL pos Multidrug Resistant [facility] [facility] JUDGE: Positive 03/18/18 18:15 Blood - Peripheral Aerobic Blood Culture - Final No growth in 5 days 03/18/18 18:15 Blood - Peripheral Anaerobic Blood Culture - Final Veillonella species 03/18/18 18:00 Blood - Peripheral Aerobic Blood Culture - Final No growth in 5 days 03/18/18 18:00 Blood - Peripheral Anaerobic Blood Culture - Final Veillonella species Imaging: Chest X-Ray 03/18/18 17:52 CONCLUSION: 1. ET tube in good position. 2. Increasing patchy areas of consolidation in both lower lungs. Chest CT 03/18/18 18:46 CONCLUSION: 1. Bilateral multi segmental consolidation in the mid and lower lungs and small bilateral pleural effusions. 2. Several enlarged middle mediastinal lymph nodes. Head CT 03/18/18 18:46 CONCLUSION: 1. Solitary 3 mm hyperdensity in the central [place] of uncertain significance. Differential considerations include a punctate calcification and acute hemorrhage. 2. No acute findings in the supratentorial brain. Head MRI 03/19/18 00:00 CONCLUSION: 1. No evidence of brainstem hemorrhage. 2. Small foci of encephalomalacia in the left occipital lobe and right cerebellum 3. No evidence of acute infarct, hemorrhage, mass or edema. 4. No evidence of enhancing intra-axial or extra-axial lesions. Venous Doppler Study 03/19/18 00:00 CONCLUSION: The study is negative for bilateral upper extremity deep venous thrombosis. Venous Doppler Study 03/19/18 00:00 CONCLUSION: The study is negative for bilateral lower extremity deep venous thrombosis. Chest X-Ray 03/19/18 07:33 CONCLUSION: 1. Lines and tubes as detailed above without pneumothorax. 2. Radiographic pattern most consistent with pulmonary edema. This is unchanged. Chest X-Ray 03/20/18 06:00 CONCLUSION: No significant change. Chest X-Ray 03/21/18 05:14 CONCLUSION: Decreased bilateral pulmonary opacity suggesting decreased pulmonary edema. Abdomen X-Ray 03/22/18 00:00 CONCLUSION: Mild ileus. NG tip in stomach. Foot X-Ray 03/22/18 00:00 CONCLUSION: No acute bony destructive change. Previous amputations as above. Fairly marked soft tissue swelling of the forefoot. Chest X-Ray 03/22/18 06:00 CONCLUSION: Increased left mid lung pulmonary consolidation versus atelectasis. Chest X-Ray 03/23/18 06:00 CONCLUSION: Worsening patchy airspace disease, particularly in the left hemithorax. Life support tubes are stable in position Chest X-Ray 03/24/18 00:00 CONCLUSION: Mild interval improvement in bilateral pulmonary infiltrates. Chest X-Ray 03/24/18 06:00 CONCLUSION: Worsening bilateral pulmonary infiltrates, particularly in the right upper lobe Chest X-Ray 03/25/18 00:00 CONCLUSION: 1. No significant change in the bilateral pulmonary infiltrates most characteristic of pulmonary edema. Chest X-Ray 03/25/18 06:00 CONCLUSION: 1. Stable biapical airspace disease with left basilar consolidation and possible effusion. 2. Stable position of life-support tubes. Abdomen X-Ray 03/26/18 00:00 CONCLUSION: Abdomen/Pelvis CT 03/28/18 00:00 CONCLUSION: 1. Minimal increase in the trace bilateral pleural effusions with compressive atelectasis in both bases. 2. Gallstones in a benign-appearing gallbladder 3. I don't see evidence for colitis. 4. I don't see inflammatory changes in the abdomen. Chest CT 03/28/18 00:00 CONCLUSION: 1. Biventricular cardiomegaly with coarse interstitial changes in both lungs. A component of this could be failure 2. Trace bilateral pleural effusions larger on the right.. These have decreased slightly in the interval. Foot MRI 03/28/18 00:00 CONCLUSION: 1. Difficult exam to interpret because of extensive soft tissue swelling. No obvious osteomyelitis. 2. Nuclear medicine tagged white cell study may help. Chest X-Ray 03/30/18 07:48 CONCLUSION: Improving upper lobe aeration with decreasing consolidation and congestion. Stable supportive devices. Chest X-Ray 04/01/18 05:00 CONCLUSION: Bilateral airspace opacities which are increased in the right lung base. Chest X-Ray 04/04/18 05:00 CONCLUSION: Persistent partially consolidated infiltrates the mid and lower lungs bilaterally. Chest X-Ray 04/05/18 16:00 CONCLUSION: Bilateral airspace disease has worsened slightly since April 04. Endotracheal tube, nasogastric tube and right central line unchanged. Chest X-Ray 04/08/18 05:00 CONCLUSION: No interval change. Chest X-Ray 04/10/18 03:56 CONCLUSION: Stable chest x-ray with bilateral lower lung zone airspace consolidation. Chest X-Ray 04/11/18 05:17 CONCLUSION: Stable chest x-ray with diffuse bilateral airspace consolidation that is more severe in the lower lung zones. Chest X-Ray 04/13/18 08:26 CONCLUSION: 1. No significant interval change. 2. Stable diffuse interstitial prominence. 3. Stable bilateral lower lung zone airspace disease. Chest X-Ray 04/15/18 00:00 CONCLUSION: Persistent diffuse nodular parenchymal lung disease. Chest X-Ray 04/16/18 00:00 CONCLUSION: Diffuse consolidation likely related to diffuse edema. Chest X-Ray 04/17/18 06:00 CONCLUSION: Diffuse consolidation likely related to diffuse processes such as edema, diffuse infection, or ARDS. Objective Remarks: GENERAL: 52 YO AAF critically ill currently orotracheally intubated SKIN: Warm and dry. HEAD: Normocephalic. EYES: Disconjugate. Left eye leftward gaze. Pupils are round 2 mm bilaterally and reactive. No scleral icterus. No injection or drainage. NECK: Supple, trachea midline. No JVD or lymphadenopathy. CARDIOVASCULAR: Regular rate and rhythm. S1, S2 no S4. Without murmur without murmurs, gallops, or rubs. RESPIRATORY: Diminished breath sounds throughout. No wheezing. GASTROINTESTINAL: Abdomen soft, non-tender, nondistended. MUSCULOSKELETAL: + [place] peripheral edema. Neuro: sedated and intubated. Positive corneal reflex. Does not withdraw to pain. Currently on paralytic Assessment and Plan - Assessment and Plan Plan: NEURO/PSYCH: Acute encephalopathy - secondary to hypercapnia, improving. Abnormal brain CT with 3 mm hyperdensity in central [place] Major depressive disorder NOS Chronic opioid use Encephalomalacia right cerebellum/left occipital lobe Currently on scheduled oxycodone 20mg po q4h Quetiapine 50mg po q8h for delirium. Continue with midazolam drip at 12 mg an hour and fentanyl drip at 350 mg an hour for sedation/analgesia while intubated We will wean off cisatracurium drip currently on 4 for vent synchrony Monitor neuro status. Daily sedation vacation when clinically appropriate.. Followup MRI brain 03/19 - No evidence of brainstem hemorrhage. Small foci of encephalomalacia in the left occipital lobe and right cerebellum. No evidence of acute infarct, hemorrhage, mass or edema. No evidence of enhancing intra- axial or extra-axial lesions. RESP: Acute hypercapnic and hypoxemic respiratory failure Severe ARDS Acute asthma exacerbation Healthcare associated pneumonia WISAM/OHS Prior tobacco abuse Bilateral pleural effusions right 2.2 cm. Left 1.3 cm LMA was placed in the field by EVAC. Intubated in ED 03/18. Intubation day #31 Continue with vent support keep sats >92% On albuterol/ipratropium aerosols every 6 hours with albuterol aerosols every 2 hours as needed for dyspnea Weaned off epoprostenol 03/23. Flolan 30,000 ng/ml resumed 04/09 currently at 50, 000 ng/mL On PRVC RR 20, TV 550, IT:1.10, PEEP:15, FIO2: 100% On methylprednisolone succinate 40mg IV daily, CXR ordered for a.m. 04/17 revealed diffuse ARDS. Recheck in a.m. 04/19 CV: Hypertension Hyperlipidemia Chronic diastolic heart failure Paroxysmal atrial fibrillation on chronic anti-coagulation with warfarin Peripheral vascular disease/peripheral arterial disease Elevated troponin intermittent bradycardia Cor pulmonale biventricular dysfunction Monitor HR and BP keep MAP>65mmHg 2D echo 02/24/18ejection fraction 50%. Wall thickness upper limits of normal. Trace MR. Continue atorvastatin 40 mg daily for dyslipidemia Doppler bilateral upper and lower extremities revealed no acute thrombus amlodipine 10mg po daily resumed 04/17. Recently held due to edema concerns. T hydralazine 100mg po q8h, Clonidine 0.2 mg q. 7 days patch, carvedilol 3.125 mg BID, GI: History of GERD Chronic pancreatitis insufficiency Hypoalbuminemia vital high-protein @45 cc an hour per GIs recommendation Famotidine for GI prophylaxis Docusate sodium/senna 1 tablet twice daily for bowel regimen Creon home medication 3 times daily FEN/RENAL: Acute kidney injury superimposed on CKD Chronic kidney disease stage III Acute severe intravascular volume overload with pulmonary edema [place] catheter was placed in the emergency department. Monitor renal function, I/O's, avoid nephrotoxins On Bumex 2mg TID, Zaroxolyn 5mg Q12 Cr: 1.81 today from 1.75 Renal is following- Dr. Fraser ID: Acute healthcare associated pneumonia -ESBL positive Klebsiella pneumonia Veillonella species bacteremia Continue with abx per ID (ceftazidime/avibactam, Colistin nebs,) Monitor for signs of infections ( Fever, WBC) 04/10 Sputum: Normal resp jennifer Blood cultures 2 03/18 Veillonella spp. Repeat 03/20 no growth to date Sputum, ESBL positive Klebsiella pneumonia 04/04 Sputum 04/14 gram-negative rhona Pneumococcal urinary antigens, influenza a and B and chlamydia and mycoplasma all pending/negative HEME: Leukocytosis Chronic anemia/normocytic Monitor CBC daily. No indication for transfusion of blood products at this time. ENDO: Diabetes mellitus History of gout SSI q4h high scale Increase insulin detemir to 45 units subcu twice daily. Holding glipizide 10 mg twice daily and insulin glargine/home medication Holding allopurinol 300 mg daily/home medication MSK: Elevated BMI Osteoporosis/osteoarthritis PT evaluate and treat PROPH: SCDs for DVT prophylaxis. Heparin SQ ACCESS: Peripheral IV, right femoral central line placed 04/14 Doppler US B/l Upper and lower EXT negative for DVT on 03/19 Palliative care is following Critical care time 30 minutes, exclusive of separately billed procedures.
[2018-04-18] MEDS ORDERED: Potassium Chloride 25 MEQ Effervescent Tablet PO ONE (09:00)
[2018-04-18] MEDS ORDERED: Carvedilol 6.25 MG Tablet PO SCH (09:00)
[2018-04-18] MEDS ORDERED: Potassium Phosphate Inj 30 MMOL in Sodium Chlor 0.9% Inj 250 ML IV.SIG ONE (09:30)
[2018-04-18] MEDS: Sod Chloride 0.9% Inj 1,000 ML OTHER SCH ×2 (09:39→10:59)
[2018-04-18] MEDS: Mag Sulf 1 gm/100 ml Premix 100 ML IV.SIG SCH ×2 (09:53→11:12)
--- NOTE | 2018-04-18 11:56 | P.PNNP ---
Subjective Interval history: remains intubated Physical Exam Vital signs: Vital Signs 04/17/18 12:00 04/17/18 12:01 04/17/18 12:30 Temperature 97 F L Pulse Rate 59 L 58 L 57 L Respiratory Rate 22 37 H 39 H Blood Pressure 118/67 152/67 H Pulse Oximetry 95 95 95 04/17/18 13:00 04/17/18 13:01 04/17/18 13:30 Temperature Pulse Rate 58 L 58 L 58 L Respiratory Rate 24 39 H 42 H Blood Pressure 140/66 Pulse Oximetry 95 95 95 04/17/18 14:00 04/17/18 14:30 04/17/18 15:00 Temperature Pulse Rate 60 60 59 L Respiratory Rate 40 H 41 H 60 H Blood Pressure 151/65 H 159/72 H Pulse Oximetry 95 95 95 04/17/18 15:04 04/17/18 15:30 04/17/18 16:00 Temperature 97.5 F L Pulse Rate 58 L 59 L 61 Respiratory Rate 20 41 H 42 H Blood Pressure 159/70 H Pulse Oximetry 92 L 93 L 04/17/18 16:01 04/17/18 16:30 04/17/18 17:00 Temperature Pulse Rate 61 59 L 60 Respiratory Rate 59 H 40 H 57 H Blood Pressure 159/70 H 160/73 H Pulse Oximetry 92 L 92 L 93 L 04/17/18 17:30 04/17/18 18:00 04/17/18 18:30 Temperature Pulse Rate 60 63 57 L Respiratory Rate 44 H 43 H 33 H Blood Pressure 156/70 H Pulse Oximetry 95 96 95 04/17/18 19:00 04/17/18 19:01 04/17/18 19:30 Temperature Pulse Rate 56 L 57 L 66 Respiratory Rate 39 H 34 H 19 Blood Pressure 142/65 H Pulse Oximetry 95 96 98 04/17/18 20:00 04/17/18 20:12 04/17/18 20:18 Temperature 98.7 F Pulse Rate 65 67 Respiratory Rate 34 H 21 20 Blood Pressure 155/71 H Pulse Oximetry 95 97 04/17/18 20:30 04/17/18 20:34 04/17/18 21:00 Temperature Pulse Rate 69 67 66 Respiratory Rate 20 20 23 Blood Pressure 169/72 H Pulse Oximetry 98 99 04/17/18 21:30 04/17/18 22:00 04/17/18 22:01 Temperature Pulse Rate 61 62 62 Respiratory Rate 34 H 38 H 29 H Blood Pressure 156/70 H Pulse Oximetry 97 97 97 04/17/18 22:30 04/17/18 23:00 04/17/18 23:30 Temperature Pulse Rate 63 63 65 Respiratory Rate 25 H 38 H 33 H Blood Pressure 140/65 Pulse Oximetry 92 L 92 L 94 L 04/18/18 00:00 04/18/18 00:30 04/18/18 01:00 Temperature 98.4 F 98.4 F Pulse Rate 68 68 66 Respiratory Rate 40 H 32 H 34 H Blood Pressure 152/70 H 159/72 H Pulse Oximetry 94 L 95 94 L 04/18/18 01:19 04/18/18 01:30 04/18/18 02:00 Temperature Pulse Rate 66 67 Respiratory Rate 20 38 H 40 H Blood Pressure 160/69 H Pulse Oximetry 95 94 L 94 L 04/18/18 02:30 04/18/18 03:00 04/18/18 03:30 Temperature Pulse Rate 72 74 76 Respiratory Rate 27 H 27 H 20 Blood Pressure 163/70 H Pulse Oximetry 94 L 94 L 94 L 04/18/18 04:00 04/18/18 04:28 04/18/18 04:30 Temperature 98.4 F Pulse Rate 76 77 78 Respiratory Rate 28 H 20 24 Blood Pressure 155/70 H Pulse Oximetry 93 L 93 L 93 L 04/18/18 05:00 04/18/18 05:30 04/18/18 06:00 Temperature Pulse Rate 74 77 80 Respiratory Rate 25 H 21 23 Blood Pressure 154/70 H 149/65 H Pulse Oximetry 93 L 94 L 94 L 04/18/18 06:30 04/18/18 07:00 04/18/18 07:30 Temperature Pulse Rate 81 83 82 Respiratory Rate 20 20 24 Blood Pressure 153/67 H Pulse Oximetry 94 L 95 95 04/18/18 07:49 04/18/18 08:00 04/18/18 08:30 Temperature 97.1 F L Pulse Rate 83 82 Respiratory Rate 20 20 20 Blood Pressure 150/68 H Pulse Oximetry 96 93 L 94 L 04/18/18 09:00 04/18/18 09:13 04/18/18 10:00 Temperature Pulse Rate 79 77 61 Respiratory Rate 20 20 Blood Pressure 149/68 H Pulse Oximetry 94 L 04/18/18 11:39 Temperature Pulse Rate Respiratory Rate 20 Blood Pressure Pulse Oximetry 96 Intake & Output 04/17/18 04/18/18 04/18/18 18:59 06:59 18:59 Intake Total 2109 / 2109 2966.1 / 2966.1 900 / 900 Output Total 3700 / 3700 2850 / 2850 Balance -1591 / -1591 116.1 / 116.1 900 / 900 Weight 121 kg Intake: IV 1450 / 1450 2204.1 / 2204.1 900 / 900 Nimbex Inj 100 MG In NS Inj 240 1000 / 1000 500 / 500 ML @ 1 MCG/KG/MIN 18.75 mls/hr IV.CONT TITRATE PRN Rx#: [id number] Nimbex Inj 200 MG In NS Inj 480 1000 / 1000 500 / 500 ML @ 1 MCG/KG/MIN 18.75 mls/hr IV.CONT TITRATE PRN Rx#: [id number] Versed Inj 50 mg In 50 ml @ 2 100 / 100 34.1 / 34.1 50 / 50 MG/HR 2 mls/hr IV.CONT TITRATE PRN Rx#:[id number] Avycaz Inj 2.5 GM In NS Inj 50 100 / 100 50 / 50 ML @ 25 mls/hr IV.SIG Q8H JACKI Rx#:[id number] Magnesium Sulfate 1 gm/D5W 100 100 / 100 ml Premix 100 ML @ 100 mls/hr IV.SIG Q1H JACKI Rx#:[id number] fentaNYL 10 mcg/mL Premix Drip 250 / 250 250 / 250 2,500 mcg In 250 ml @ 50 MCG/HR 5 mls/hr IV.SIG TITRATE PRN Rx #:[id number] Flolan (30,000 ng/mL) Neb 37.5 100 / 100 ML In NS Inj 62.5 ML @ As Directed NEB Q8H JACKI Rx#: [id number] Tube Feeding 559 / 559 462 / 462 Tube Irrigant 100 / 100 300 / 300 Output: Stool 200 / 200 Urine Amount (Catheter) 3500 / 3500 2850 / 2850 Indwelling Urethral Catheter 3500 / 3500 2850 / 2850 Other: Date of Last Bowel Movement 04/17/18 04/17/18 04/17/18 - Constitutional no acute distress - Routine Neck Exam Present: supple - Routine Respiratory Exam Present: patient mechanically ventilated, decreased breath sounds - Routine Cardiovascular Exam Present: RRR - Routine Abdominal Exam Present: soft - Routine Skin Exam Present: intact - Routine Psychiatric Exam Present: unable to assess - Urinary Catheter Management Indwelling Urethral Catheter Cath placed during this visit: yes Urethral indwelling: Yes Reason for continuing: Hourly intake/output Insertion date: 03/18/18 Insertion time: 21:00 Assessment and Plan - Assessment (1) Acute renal failure superimposed on stage 3 chronic kidney disease Code(s): N17.9 - Acute kidney failure, unspecified; N18.3 - Chronic kidney disease, stage 3 (moderate) Status: Acute Plan: Her baseline creatinine runs 1.6-2, GFR 44. YOU most likely due to cardiac arrest and decreased renal perfusion. Her renal function has began to improve - Creatinine 1.58 today. She has had a very high BUN for the past couple of weeks. Oxygen requirement improving. Still with edema. Needs continued diuresis. On Bumex TID 2 mg. Metolazone still on hold. She is non oliguric and responding to diuretics. Avoid nephrotoxic agents,dose appropriate to renal status. Minimize non essential medications. D/W her family. They do not wish to begin dialysis if needed. Her son makes the medical decisions. No need for dialysis at this point. (2) Acute respiratory failure with hypoxemia Code(s): J96.01 - Acute respiratory failure with hypoxia Status: Acute Plan: ARDS. High oxygen requirement (improved to 50%, PEEP 15). Poor prognosis. Management per critical care service. Needs better oxygenation prior to trach placement. (3) Diabetes mellitus type 2 in obese Code(s): E11.69 - Type 2 diabetes mellitus with other specified complication; E66.9 - Obesity, unspecified Status: Chronic Plan: Maintain glucose 140-180mg/dL while hospitalized. Use insulin if needed. (4) Hypertension Code(s): I10 - Essential (primary) hypertension Status: Chronic Plan: Monitor BP. Continue medications as ordered. (5) HCAP (healthcare-associated pneumonia) Code(s): J18.9 - Pneumonia, unspecified organism Status: Acute Plan: ID is following, managing antibiotics. Currently on Avycaz and Colistin neb. s/p bronch with cultures reviewed. Klebsiella PNA. (6) Diastolic heart failure Code(s): I50.30 - Unspecified diastolic (congestive) heart failure Status: Acute Plan: Monitor fluid status. Continue diuresis. She had an echo previous admission, EF 50%.
[2018-04-18] MEDS: Carvedilol 6.25 MG Tablet PO SCH (20:28)
[2018-04-18 21:45] LABS: Potassium 4.2 meq/L (3.5-5.1)
[2018-04-18 21:50] LABS: Magnesium 2.1 mg/dL (1.5-2.5); Phosphorus 4.5 mg/dL (2.5-4.9)
[2018-04-19] MEDS: Insulin NovoLIN Regular Correctional Sugar Inj SQ SCH ×6 (00:02→20:00)
[2018-04-19] MEDS: Oral Hygiene Kit OROPHARYNG SCH ×5 (00:06→23:48)
[2018-04-19] MEDS: Hypromellose 0.3% Opth Gel 10 GM Bottle EACH EYE SCH ×3 (03:09→20:45)
[2018-04-19] MEDS ORDERED: Metoprolol Inj 5 MG/5 ML Vial IV.PUSH SCH (05:15)
[2018-04-19] MEDS ORDERED: Digoxin Inj 500 MCG/2 ML Ampul IV.PUSH SCH (05:15)
--- NOTE | 2018-04-19 05:45 | XR ---
EXAM DATE: 04/19/2018 5:37 AM EDT AGE/SEX: 52 years / Female INDICATIONS: Shortness of breath, possible pulmonary disease. CLINICAL DATA: This is the patient's subsequent encounter. Patient reports that signs and symptoms h ave been present for 1 month and indicates a pain score of Nonresponsive. MEDICAL/SURGICAL HISTORY: . Cardiovascular disease. Hypertension. Diabetes mellitus type II No ne. COMPARISON: C, CHEST 1V SINGLE AP, 04/17/2018. . FINDINGS: The ET tube and NG tube are well placed. The heart size is normal. The lungs demonstrate diffuse incr eased interstitial markings. There is further increased density at the bases being worse on the left with silhouetting the left hemidiaphragm CONCLUSION: Diffuse increased interstitial markings likely related to diffuse processes such as edema, diffuse in fection, or ARDS. Further increased density at the bases related to superimposed atelectasis, consolidation and/or effu venkatesh being worse on the left. Electronically signed by: Isaak Hong MD 04/19/2018 5:44 AM EDT
[2018-04-19] MEDS: QUEtiapine 25 MG Tablet PO SCH ×3 (05:50→23:47)
[2018-04-19] MEDS: Ceftazidime/Avibactam Inj 2.5 GM in Sodium Chlor 0.9% Inj 50 ML IV.SIG SCH ×3 (05:50→23:47)
[2018-04-19] MEDS: SODIUM CHLOR NEB SCH ×4 (05:50→18:33)
[2018-04-19] MEDS: EPOPROSTENOL NEB SCH ×4 (05:50→18:33)
[2018-04-19] MEDS: Midazolam 50 MG/50 ML Inj 50 MG/50 ML BAG IV.CONT PRN ×3 (06:00→19:18)
[2018-04-19 06:08] LABS: Baso % (Auto) 0.3 % (0.0-2.0); Eos % (Auto) 0.5 % (0.0-4.0); Hematocrit 25.4 % (35.0-46.0); Hemoglobin 8.1 gm/dL (11.6-15.3); Lymph # (Auto) 0.7 th/mm3 (1.0-4.8); Lymph % (Auto) 7.9 % (9.0-44.0); Mean Corpuscular HGB Conc 31.8 % (32.0-36.0); Mean Corpuscular Hemoglobin 26.8 pg (27.0-34.0); Mean Corpuscular Volume 84.2 fL (80.0-100.0); Mean Platelet Volume 10.3 fL (7.0-11.0); Mono # (Auto) 0.5 th/mm3 (0.0-0.9); Neut # (Auto) 8.2 th/mm3 (1.8-7.7); Neut % (Auto) 86.3 % (16.0-70.0); Platelet Count 155 th/mm3 (150-450); Red Blood Count 3.01 mil/mm3 (4.00-5.30); Red Cell Distribution Width 21.5 % (11.6-17.2); White Blood Count 9.5 th/mm3 (4.0-11.0)
[2018-04-19] MEDS ORDERED: Metoprolol Inj 5 MG/5 ML Vial IV.PUSH ONE (06:15)
[2018-04-19] MEDS ORDERED: Amiodarone Inj 150 MG in Dextrose 5% in Water Inj 97 ML IV.SIG ONE ×2 (06:17)
[2018-04-19 06:33] LABS: Alanine Aminotransferase 27 U/L (10-53); Alkaline Phosphatase 81 U/L (45-117); Anion Gap 13 meq/L (5-15); Aspartate Aminotransferase 15 U/L (15-37); Blood Urea Nitrogen 116 mg/dL (7-18); Calcium 8.9 mg/dL (8.5-10.1); Carbon Dioxide 26.2 meq/L (21.0-32.0); Chloride 108 meq/L (98-107); Glomerular Filtration Rate 55 mL/min (>89); Glucose,Random 209 mg/dL (74-106); Magnesium 1.9 mg/dL (1.5-2.5); Phosphorus 3.7 mg/dL (2.5-4.9); Potassium 3.4 meq/L (3.5-5.1); Sodium 147 meq/L (136-145); Total Protein 6.6 g/dL (6.4-8.2)
[2018-04-19] MEDS: fentaNYL 10 mcg/mL Premix Drip 2,500 MCG/250 ML BAG IV.SIG PRN ×2 (07:20→15:20)
[2018-04-19] MEDS ORDERED: Potassium Chloride 25 MEQ Effervescent Tablet PO ONE (07:58)
[2018-04-19] MEDS ORDERED: Potassium Chlor 40 mEq Premix 40 MEQ/100 ML PIGGYBACK IV.SIG ONE (07:59)
[2018-04-19] MEDS: SODIUM CHLOR 0.9% IV.CONT PRN ×2 (08:30→18:45)
[2018-04-19] MEDS: CISATRACURIUM IV.CONT PRN ×2 (08:30→18:45)
--- NOTE | 2018-04-19 08:33 | P.PNCC ---
Subjective Subjective Remarks/Hospital Course: 52-year-old female with past medical history of diabetes mellitus, hypertension, hyperlipidemia, atrial fibrillation on chronic anticoagulation with warfarin, chronic diastolic heart failure, asthma, WISAM, peripheral vascular disease, super morbid obesity. She has been at [facility] since 03/02/18. Abeba JACOBO was called due to respiratory distress. When they arrived as she was found to be in respiratory distress with sats in the 70s. She was communicating with them and reportedly said "leave me alone". She then had PEA arrest. She received CPR reportedly 10-15 minutes and received 2 doses of epinephrine. LMA was placed by EVAC. LMA was removed and she was intubated by Dr. Daly after receiving etomidate 20 mg IV and succinylcholine. She has demonstrated purposeful movements post intubation, and is now on a propofol drip. She was recently admitted to [facility] 02[place] due to hypoglycemia, fall after isolated episode of diarrhea, hypoxia requiring HFNC. She has chronic interstitial changes on CXR. Reviewed records from [facility] which indicate she completed a 7 day course of Levaquin and has been on a prednisone taper. Current CXR shows bibasilar opacities. WBC is 16 ( previously 7.9). She has acute hypercapneic and hypoxemic respiratory failure. 03/19: Afebrile. Remains on 100% FiO2 PEEP of 12. Central has been placed for access due to multiple drips. Plan MRI brain today if respiratory status improves. Does not tolerate lying flat. Likely will need epoprostenol and rotaprone 03/20: Started on epoprostenol and currently on a rotor from bed. Currently on cisatracurium drip at 1 mcg/kg/min. Diuresing well. 03/21: Weaning down epoprostenol. Remains on cisatracurium drip at 6 mcg/kg/ min. Diuresis 6 L. Saturation was improved FiO2 down to 45%. 03/22: Hypothermic overnight. Currently euthermic. Excellent response to bumetanide drip. FiO2 down to 40%. PEEP down to 8. Possible discontinue paralytic agent today. 03/23: Resting comfortable in bed in no acute distress. Afebrile. Desaturated so placed back on rotor prone bed. Creatinine slowly increasing. 03/24: Afebrile. Worsening chest x-ray it appears to be volume overloaded again. +10 L past 24 hours. Will restart on bumetanide drip. Plan for bronchoscopy today. Switch to ceftazidime/avibactam secondary to ESBL positive Klebsiella pneumonia 03/25: FiO2 to 55%. Tolerating demanding drip with -2 L past 24 hours. Bronchoscopy results pending. Positive BM. Restarting tube feeding today 03/26: Cr continues to rise, although clinically continues to appear severely volume overloaded. fio2 70%. supine all night. off nimbex. off flolan. ID managing ESBL/MDRO/KPC Klebsiella and anaerobic bacteremia. 03/27: off rotaprone bed. multiple desat episodes overnight. on 100% fio2 and PEEP 10 this AM. good diuresis with net -2L/24h. bumex drip continues. awakens and follows commands. 03/28: not diuresing as well as yesterday. wbc uptrending. 2 more episodes of bradycardia, not associated with hypoxia. however, fio2 remains severely elevated. I increased her peep to 14. still arouses and moves all extremities. high concern for ongoing infectious etiology, but with high o2 requirements and intermittent bradycardia requiring atropine, at present too unstable for repeat imaging. 03/29: ct C/A/P without overt infectious source. does demonstrate radiographic evidence of biventricular dysfunction. bedside echo today demonstrates the same , and dilated IVC without respiratory variation. off vasopressors. required atropine for a HR of 15 once overnight. still very hypoxic: changed to APRV 5:1 , 28/0, 4/0.8. 03/30: remains on APRV with hypoxia. multiple episodes of bradycardia and a 18 second pause yesterday. trialed on dobutamine but with multiple dysrhythmias. now on low-dose dopamine to mitigate bradycardia. adequate diuresis overnight. cxr improving slightly. still remains volume overloaded, and YOU persists. 03/31: mild improvements in fio2. remains on APRV. no more bradycardia today. still on dopamine to prevent pauses/bradycardia. YOU persists, but stable. unable to diurese yesterday and now net +2L despite fluid overload. must increase forced diuresis to improve hypoxemia. 04/01: Remains sedated, orally intubated on mechanical ventilation. Being diuresed. Started on Reglan in view of high gastric residuals and decreasing fentanyl as tolerated. 04/02: Remains sedated, orally intubated on APRV mode mechanical ventilation. 04/03: Remains sedated, orally intubated on mechanical ventilation. Awaiting family meeting with palliative care to decide goals of therapy. Being diuresed. 04/04: Remains sedated, orally intubated on mechanical ventilation. Switch to PRVC mode overnight. On 50% FiO2, PEEP +8. Family deciding regarding goals of therapy. 04/05: Remains sedated, orally intubated on mechanical ventilation. PEEP increased to +10 overnight due to hypoxia. 04/06: Remains sedated, orally intubated on mechanical ventilation. Worsening oxygenation since yesterday. Chest x-ray showed fluid overload. Resume Bumex twice daily yesterday in addition to Zaroxolyn PO. 04/07: Remains sedated, orally intubated on mechanical ventilation. Diuresed. Renal function remains a concern. Started on colistin nebs per ID due to very resistant organisms in sputum. Eventually needs tracheostomy and PEG tube placement. 04/08 Patient remains sedated with Versed and Fentanyl infusion. On Cardene drip.Had T:99.7 last night. Remains on high PEEP and FIO2( PEEP:15, FIO2: 65%) 04/09 Patient is intubated with Versed and Fentanyl drips. Tmax 100.3. Now on PRVC with PEEP:12 and FIO2 100% 04/10 Patient is sedated with Fentanyl and Versed drips. Flolan started yesterday. On PRVC with PEEP: 15 and FIO2 100%. Afebrile. 04/11 Patient was hypoxic overnight with [id number] given Rocuronium 100mg IV for desaturation and vent synchrony remains on high PEEP15 with 100%FIO2. Sedated with Versed and Fentanyl drips. CXR this morning shows diffuse b/l infiltrates severe in lower lung zones. 04/12 Patient remains sedated and intubated and on Flolan. Afebrile. 04/13 Patient remains sedated with Versed and Fentanyl and intubated. Afebrile. On Flolan . On PRVC with PEEP: 15, FIO2 down 70%. 04/14 Patient had another episode of desaturation overnight now on PRVC with PEEP :15 and 100% FIO2. T:99.7 last night. Sedated with Versed/Fentanyl drips. On Flolan 04/15 Patient remans sedated with Fentanyl, Versed and intubated. Afebrile. On PRVC with PEEP:15 and FIO2 75%. 04/16: Intubation day #29. Afebrile. FiO2 increased to 100%. More secretions. Will need to paralyze with cisatracurium drip for vent synchrony as patient is currently out of peeping despite maximum midazolam and fentanyl drips. Remains on epoprostenol 04/17: The patient day #30. Remains on cisatracurium drip at 5 mcg/kg/min. FiO2 down to 50%. Chest x-ray reveals diffuse ARDS. Tolerating tube feeds. 04/18: Intubation day #31. We will attempt to wean off cisatracurium drip. FiO2 remains around 50%. Tolerating tube feeding. SUBJECTIVE 04/19: Intubation day #32. Patient went to A. fib with RVR overnight. Given 0.5 mg digoxin. Started on amiodarone drip per protocol currently normal sinus rhythm. Did not tolerate paralytic vacation yesterday became tachypneic and auto PEEP Objective Vital Signs / I&O: Vital Signs 04/18/18 08:30 04/18/18 09:00 04/18/18 09:13 Temperature Pulse Rate 82 79 77 Respiratory Rate 20 20 20 Blood Pressure 149/68 H Pulse Oximetry 94 L 94 L 04/18/18 09:30 04/18/18 10:00 04/18/18 10:30 Temperature Pulse Rate 73 68 62 Respiratory Rate 20 25 H 28 H Blood Pressure 157/67 H Pulse Oximetry 94 L 94 L 94 L 04/18/18 11:00 04/18/18 11:30 04/18/18 11:39 Temperature Pulse Rate 61 68 Respiratory Rate 26 H 20 20 Blood Pressure 141/65 H Pulse Oximetry 95 96 96 04/18/18 12:00 04/18/18 12:30 04/18/18 13:00 Temperature 98.8 F Pulse Rate 63 67 71 Respiratory Rate 26 H 25 H 30 H Blood Pressure 153/67 H 159/72 H Pulse Oximetry 96 96 96 04/18/18 13:30 04/18/18 14:00 04/18/18 14:01 Temperature Pulse Rate 80 82 82 Respiratory Rate 23 26 H 28 H Blood Pressure 157/73 H Pulse Oximetry 95 94 L 92 L 04/18/18 14:30 04/18/18 15:00 04/18/18 15:01 Temperature Pulse Rate 79 67 67 Respiratory Rate 27 H 19 19 Blood Pressure 120/58 L Pulse Oximetry 97 98 98 04/18/18 15:30 04/18/18 15:55 04/18/18 16:00 Temperature Pulse Rate 62 74 70 Respiratory Rate 22 20 27 H Blood Pressure Pulse Oximetry 99 98 98 04/18/18 16:01 04/18/18 16:30 04/18/18 16:43 Temperature 98.8 F 98.8 F Pulse Rate 71 72 72 Respiratory Rate 27 H 36 H 36 H Blood Pressure 170/72 H 170/72 H Pulse Oximetry 97 95 95 04/18/18 18:00 04/18/18 20:00 04/18/18 20:30 Temperature 98.8 F Pulse Rate 72 67 Respiratory Rate 20 20 Blood Pressure 110/98 H Pulse Oximetry 98 95 04/18/18 20:38 04/18/18 22:00 04/18/18 23:26 Temperature Pulse Rate 66 77 Respiratory Rate 20 20 Blood Pressure Pulse Oximetry 96 04/18/18 23:37 04/19/18 00:00 04/19/18 02:00 Temperature 98.8 F Pulse Rate 68 79 79 Respiratory Rate 20 20 Blood Pressure 101/95 H Pulse Oximetry 95 04/19/18 04:00 04/19/18 04:09 04/19/18 06:00 Temperature 98.6 F Pulse Rate 86 85 149 H Respiratory Rate 20 20 Blood Pressure 104/97 H Pulse Oximetry 97 97 04/19/18 07:54 Temperature Pulse Rate 86 Respiratory Rate 20 Blood Pressure Pulse Oximetry Intake & Output 04/18/18 04/19/18 04/19/18 18:59 06:59 18:59 Intake Total 2871 / 2871 1309.1 / 1309.1 400 / 400 Output Total 2675 / 2675 1850 / 1850 Balance 196 / 196 -540.9 / -540.9 400 / 400 Weight 119.5 kg Intake: IV 2515 / 2515 734.1 / 734.1 400 / 400 Nimbex Inj 200 MG In NS Inj 480 1000 / 1000 500 / 500 ML @ 1 MCG/KG/MIN 18.75 mls/hr IV.CONT TITRATE PRN Rx#: [id number] Versed Inj 50 mg In 50 ml @ 2 100 / 100 84.1 / 84.1 MG/HR 2 mls/hr IV.CONT TITRATE PRN Rx#:[id number] Cordarone Inj 150 MG In D5W Inj 100 / 100 97 ML @ 100 mls/hr IV.SIG ONCE ONE Rx#:[id number] Avycaz Inj 2.5 GM In NS Inj 50 100 / 100 50 / 50 50 / 50 ML @ 25 mls/hr IV.SIG Q8H JACKI Rx#:[id number] Magnesium Sulfate 1 gm/D5W 100 200 / 200 ml Premix 100 ML @ 100 mls/hr IV.SIG Q1H JACKI Rx#:[id number] Potassium Phosphate Inj 30 MMOL 515 / 515 In NS Inj 250 ML @ 43.333 mls/ hr IV.SIG ONCE ONE Rx#:[id number] fentaNYL 10 mcg/mL Premix Drip 500 / 500 250 / 250 2,500 mcg In 250 ml @ 50 MCG/HR 5 mls/hr IV.SIG TITRATE PRN Rx #:[id number] Flolan (30,000 ng/mL) Neb 37.5 100 / 100 100 / 100 ML In NS Inj 62.5 ML @ As Directed NEB Q8H [facility] Rx#: [id number] Oral 0 / 0 Tube Feeding 236 / 236 475 / 475 Water Bolus Amount 120 / 120 100 / 100 Output: Urine Amount (Catheter) 2675 / 2675 1850 / 1850 Indwelling Urethral Catheter 2675 / 2675 1850 / 1850 Other: Date of Last Bowel Movement 04/17/18 04/17/18 Result Diagrams: 04/19/18 05:14 04/19/18 05:15 Other Results: Microbiology 04/14/18 18:54 Sputum - Endotracheal Gram Stain - Final 04/14/18 18:54 Sputum - Endotracheal Sputum Culture - Final Klebsiella pneumoniae ESBL pos Multidrug Resistant 03/24/18 16:30 Bronchial Washings - Left Lower Lobe Fungal Smear - Final No fungal elements seen 03/24/18 16:30 Bronchial Washings - Left Lower Lobe Fungal Culture - Preliminary No growth in 3 weeks 03/24/18 16:30 Bronchial Washings - Left Lower Lobe Acid Fast Bacilli Smear - Final No acid fast bacilli seen 03/24/18 16:30 Bronchial Washings - Left Lower Lobe Mycobacterial Culture - Preliminary No growth in 3 weeks 04/10/18 13:05 Sputum - Endotracheal Gram Stain - Final 04/10/18 13:05 Sputum - Endotracheal Sputum Culture - Final Heavy growth normal respiratory jennifer 04/04/18 15:44 Sputum - Endotracheal Gram Stain - Final 04/04/18 15:44 Sputum - Endotracheal Sputum Culture - Final Klebsiella pneumoniae ESBL pos Multidrug Resistant 03/26/18 15:51 Blood - Peripheral Aerobic Blood Culture - Final No growth in 5 days 03/26/18 15:51 Blood - Peripheral Anaerobic Blood Culture - Final No growth in 5 days 03/26/18 14:39 Blood - Peripheral Aerobic Blood Culture - Final No growth in 5 days 03/26/18 14:39 Blood - Peripheral Anaerobic Blood Culture - Final No growth in 5 days 03/26/18 16:21 Catheterized Urine Urine Culture - Final No growth in 48 hours 03/26/18 17:33 Stool Stool Occult Blood (NORIS) - Final Hemoccult positive 03/24/18 16:30 Bronchial - Left Lower Lobe Gram Stain - Final 03/24/18 16:30 Bronchial - Left Lower Lobe Bronchial Culture - Final Klebsiella pneumoniae Multidrug Resistant 03/20/18 09:40 Blood - Line Aerobic Blood Culture - Final No growth in 5 days 03/20/18 09:40 Blood - Line Anaerobic Blood Culture - Final No growth in 5 days 03/22/18 22:00 Sputum - Endotracheal Gram Stain - Final 03/22/18 22:00 Sputum - Endotracheal Sputum Culture - Final Klebsiella pneumoniae ESBL pos Multidrug Resistant Carba [employer]: Positive 03/18/18 18:15 Blood - Peripheral Aerobic Blood Culture - Final No growth in 5 days 03/18/18 18:15 Blood - Peripheral Anaerobic Blood Culture - Final Veillonella species 03/18/18 18:00 Blood - Peripheral Aerobic Blood Culture - Final No growth in 5 days 03/18/18 18:00 Blood - Peripheral Anaerobic Blood Culture - Final Veillonella species Imaging: Chest X-Ray 03/18/18 17:52 CONCLUSION: 1. ET tube in good position. 2. Increasing patchy areas of consolidation in both lower lungs. Chest CT 03/18/18 18:46 CONCLUSION: 1. Bilateral multi segmental consolidation in the mid and lower lungs and small bilateral pleural effusions. 2. Several enlarged middle mediastinal lymph nodes. Head CT 03/18/18 18:46 CONCLUSION: 1. Solitary 3 mm hyperdensity in the central [place] of uncertain significance. Differential considerations include a punctate calcification and acute hemorrhage. 2. No acute findings in the supratentorial brain. Head MRI 03/19/18 00:00 CONCLUSION: 1. No evidence of brainstem hemorrhage. 2. Small foci of encephalomalacia in the left occipital lobe and right cerebellum 3. No evidence of acute infarct, hemorrhage, mass or edema. 4. No evidence of enhancing intra-axial or extra-axial lesions. Venous Doppler Study 03/19/18 00:00 CONCLUSION: The study is negative for bilateral upper extremity deep venous thrombosis. Venous Doppler Study 03/19/18 00:00 CONCLUSION: The study is negative for bilateral lower extremity deep venous thrombosis. Chest X-Ray 03/19/18 07:33 CONCLUSION: 1. Lines and tubes as detailed above without pneumothorax. 2. Radiographic pattern most consistent with pulmonary edema. This is unchanged. Chest X-Ray 03/20/18 06:00 CONCLUSION: No significant change. Chest X-Ray 03/21/18 05:14 CONCLUSION: Decreased bilateral pulmonary opacity suggesting decreased pulmonary edema. Abdomen X-Ray 03/22/18 00:00 CONCLUSION: Mild ileus. NG tip in stomach. Foot X-Ray 03/22/18 00:00 CONCLUSION: No acute bony destructive change. Previous amputations as above. Fairly marked soft tissue swelling of the forefoot. Chest X-Ray 03/22/18 06:00 CONCLUSION: Increased left mid lung pulmonary consolidation versus atelectasis. Chest X-Ray 03/23/18 06:00 CONCLUSION: Worsening patchy airspace disease, particularly in the left hemithorax. Life support tubes are stable in position Chest X-Ray 03/24/18 00:00 CONCLUSION: Mild interval improvement in bilateral pulmonary infiltrates. Chest X-Ray 03/24/18 06:00 CONCLUSION: Worsening bilateral pulmonary infiltrates, particularly in the right upper lobe Chest X-Ray 03/25/18 00:00 CONCLUSION: 1. No significant change in the bilateral pulmonary infiltrates most characteristic of pulmonary edema. Chest X-Ray 03/25/18 06:00 CONCLUSION: 1. Stable biapical airspace disease with left basilar consolidation and possible effusion. 2. Stable position of life-support tubes. Abdomen X-Ray 03/26/18 00:00 CONCLUSION: Abdomen/Pelvis CT 03/28/18 00:00 CONCLUSION: 1. Minimal increase in the trace bilateral pleural effusions with compressive atelectasis in both bases. 2. Gallstones in a benign-appearing gallbladder 3. I don't see evidence for colitis. 4. I don't see inflammatory changes in the abdomen. Chest CT 03/28/18 00:00 CONCLUSION: 1. Biventricular cardiomegaly with coarse interstitial changes in both lungs. A component of this could be failure 2. Trace bilateral pleural effusions larger on the right.. These have decreased slightly in the interval. Foot MRI 03/28/18 00:00 CONCLUSION: 1. Difficult exam to interpret because of extensive soft tissue swelling. No obvious osteomyelitis. 2. Nuclear medicine tagged white cell study may help. Chest X-Ray 03/30/18 07:48 CONCLUSION: Improving upper lobe aeration with decreasing consolidation and congestion. Stable supportive devices. Chest X-Ray 04/01/18 05:00 CONCLUSION: Bilateral airspace opacities which are increased in the right lung base. Chest X-Ray 04/04/18 05:00 CONCLUSION: Persistent partially consolidated infiltrates the mid and lower lungs bilaterally. Chest X-Ray 04/05/18 16:00 CONCLUSION: Bilateral airspace disease has worsened slightly since April 04. Endotracheal tube, nasogastric tube and right central line unchanged. Chest X-Ray 04/08/18 05:00 CONCLUSION: No interval change. Chest X-Ray 04/10/18 03:56 CONCLUSION: Stable chest x-ray with bilateral lower lung zone airspace consolidation. Chest X-Ray 04/11/18 05:17 CONCLUSION: Stable chest x-ray with diffuse bilateral airspace consolidation that is more severe in the lower lung zones. Chest X-Ray 04/13/18 08:26 CONCLUSION: 1. No significant interval change. 2. Stable diffuse interstitial prominence. 3. Stable bilateral lower lung zone airspace disease. Chest X-Ray 04/15/18 00:00 CONCLUSION: Persistent diffuse nodular parenchymal lung disease. Chest X-Ray 04/16/18 00:00 CONCLUSION: Diffuse consolidation likely related to diffuse edema. Chest X-Ray 04/17/18 06:00 CONCLUSION: Diffuse consolidation likely related to diffuse processes such as edema, diffuse infection, or ARDS. Chest X-Ray 04/19/18 06:00 CONCLUSION: Diffuse increased interstitial markings likely related to diffuse processes such as edema, diffuse infection, or ARDS. Further increased density at the bases related to superimposed atelectasis, consolidation and/or effusion being worse on the left. Objective Remarks: GENERAL: 52 YO AAF critically ill currently orotracheally intubated SKIN: Warm and dry. HEAD: Normocephalic. EYES: Disconjugate. Left eye leftward gaze. Pupils are round 2 mm bilaterally and reactive. No scleral icterus. No injection or drainage. NECK: Supple, trachea midline. No JVD or lymphadenopathy. CARDIOVASCULAR: Regular rate and rhythm. S1, S2 no S4. Without murmur without murmurs, gallops, or rubs. RESPIRATORY: Diminished breath sounds throughout. No wheezing. GASTROINTESTINAL: Abdomen soft, non-tender, nondistended. MUSCULOSKELETAL: + [place] peripheral edema. Neuro: sedated and intubated. Positive corneal reflex. Does not withdraw to pain. Currently on paralytic with a [id number] of 2 out of 4 Assessment and Plan - Assessment and Plan Plan: NEURO/PSYCH: Acute encephalopathy - secondary to hypercapnia, improving. Abnormal brain CT with 3 mm hyperdensity in central [place] Major depressive disorder NOS Chronic opioid use Encephalomalacia right cerebellum/left occipital lobe Currently on scheduled oxycodone 20mg po q4h Quetiapine 50mg po q8h for delirium. Continue with midazolam drip at 8 mg an hour and fentanyl drip at 250 mg an hour for sedation/analgesia while intubated Continue cisatracurium drip currently on for vent synchrony Monitor neuro status. Daily sedation vacation when clinically appropriate.. Followup MRI brain 03/19 - No evidence of brainstem hemorrhage. Small foci of encephalomalacia in the left occipital lobe and right cerebellum. No evidence of acute infarct, hemorrhage, mass or edema. No evidence of enhancing intra- axial or extra-axial lesions. RESP: Acute hypercapnic and hypoxemic respiratory failure Severe ARDS Acute asthma exacerbation Healthcare associated pneumonia WISAM/OHS Prior tobacco abuse Bilateral pleural effusions right 2.2 cm. Left 1.3 cm LMA was placed in the field by EVAC. Intubated in ED 03/18. Intubation day #31 Continue with vent support keep sats >92% On albuterol/ipratropium aerosols every 6 hours with albuterol aerosols every 2 hours as needed for dyspnea Weaned off epoprostenol 03/23. Flolan 30,000 ng/ml resumed 8/9 currently at 50, 000 ng/mL On PRVC RR 20, TV 550, IT:1.10, PEEP:15, FIO2: 100% On methylprednisolone succinate 40mg IV daily, CXR ordered for a.m. 04/17 revealed diffuse ARDS. Recheck in a.m. 04/20 CV: Hypertension Hyperlipidemia Chronic diastolic heart failure Paroxysmal atrial fibrillation on chronic anti-coagulation with warfarin currently normal sinus rhythm Peripheral vascular disease/peripheral arterial disease Elevated troponin intermittent bradycardia Cor pulmonale biventricular dysfunction Monitor HR and BP keep MAP>65mmHg 2D echo 02/24/18ejection fraction 50%. Wall thickness upper limits of normal. Trace MR. Continue atorvastatin 40 mg daily for dyslipidemia Doppler bilateral upper and lower extremities revealed no acute thrombus amlodipine 10mg po daily resumed 04/17. Recently held due to edema concerns. T hydralazine 100mg po q8h, Clonidine 0.2 mg q. 7 days patch, carvedilol 3.125 mg BID, Currently on amiodarone drip at 1 mg/min. Titrate to 0.5 mg been per protocol. GI: History of GERD Chronic pancreatitis insufficiency Hypoalbuminemia vital high-protein @45 cc an hour per GIs recommendation Famotidine for GI prophylaxis Docusate sodium/senna 1 tablet twice daily for bowel regimen Creon home medication 3 times daily FEN/RENAL: Acute kidney injury superimposed on CKD Chronic kidney disease stage III Acute severe intravascular volume overload with pulmonary edema Hypernatremia Hypokalemia [place] catheter was placed in the emergency department. Monitor renal function, I/O's, avoid nephrotoxins On Bumetanide 2mg BID Cr: 1.26 Renal is following- Dr. Fraser Receiving 40 mEq potassium chloride IV, 25 mEq by tube and 2 g mag sulfate. Recheck potassium this evening. Free water 150 cc every 6 hours for hypernatremia. Recheck BMP in a.m. ID: Acute healthcare associated pneumonia -ESBL positive Klebsiella pneumonia Veillonella species bacteremia Continue with abx per ID (ceftazidime/avibactam, Colistin nebs,) Monitor for signs of infections ( Fever, WBC) 04/10 Sputum: Normal resp jennifer Blood cultures 2 03/18 Veillonella spp. Repeat 03/20 no growth to date Sputum, ESBL positive Klebsiella pneumonia 04/04 Sputum 04/14 gram-negative rhona Pneumococcal urinary antigens, influenza a and B and chlamydia and mycoplasma all pending/negative HEME: Leukocytosis Chronic anemia/normocytic Monitor CBC daily. No indication for transfusion of blood products at this time. ENDO: Diabetes mellitus History of gout SSI q4h high scale Increase insulin detemir to 50 units subcu twice daily. Holding glipizide 10 mg twice daily and insulin glargine/home medication Holding allopurinol 300 mg daily/home medication MSK: Elevated BMI Osteoporosis/osteoarthritis PT evaluate and treat PROPH: SCDs for DVT prophylaxis. Heparin SQ ACCESS: Peripheral IV, right femoral central line placed 04/14 Doppler US B/l Upper and lower EXT negative for DVT on 03/19 Palliative care is following Critical care time 30 minutes, exclusive of separately billed procedures.
[2018-04-19] MEDS: Mag Sulf 1 gm/100 ml Premix 100 ML IV.SIG SCH ×2 (09:00→10:28)
[2018-04-19] MEDS: Heparin - SQ 10,000 UNITS/ML Vial SQ SCH ×2 (09:01→20:46)
[2018-04-19] MEDS: Carvedilol 6.25 MG Tablet PO SCH (09:01)
[2018-04-19] MEDS: Lipase/Protease/Amylase 24/76/120 DR Capsule PO SCH ×3 (09:01→17:00)
[2018-04-19] MEDS: MethylPREDNISolone Sod Succinate Inj 40 MG/ML Vial IV.PUSH SCH (09:01)
[2018-04-19] MEDS: Famotidine 20 MG Tablet PO SCH ×2 (09:02→20:44)
[2018-04-19] MEDS: Senna/Docusate Sodium 8.6/50 MG Tablet PO SCH ×2 (09:02→20:45)
[2018-04-19] MEDS: Insulin Detemir Inj 1,000 UNIT/10 ML Vial SQ SCH ×2 (09:02→20:45)
[2018-04-19] MEDS: Chlorhexidine 0.12% Oral Kit 15 ML UDC OROPHARYNG SCH ×2 (09:03→20:45)
[2018-04-19] MEDS: Sod Chloride 0.9% Inj 1,000 ML OTHER SCH (11:07)
--- NOTE | 2018-04-19 11:23 | P.PNNP ---
Subjective Interval history: Intubated, sedated Physical Exam Vital signs: Vital Signs 04/18/18 11:30 04/18/18 11:39 04/18/18 12:00 Temperature 98.8 F Pulse Rate 68 63 Respiratory Rate 20 20 26 H Blood Pressure 153/67 H Pulse Oximetry 96 96 96 04/18/18 12:30 04/18/18 13:00 04/18/18 13:30 Temperature Pulse Rate 67 71 80 Respiratory Rate 25 H 30 H 23 Blood Pressure 159/72 H Pulse Oximetry 96 96 95 04/18/18 14:00 04/18/18 14:01 04/18/18 14:30 Temperature Pulse Rate 82 82 79 Respiratory Rate 26 H 28 H 27 H Blood Pressure 157/73 H Pulse Oximetry 94 L 92 L 97 04/18/18 15:00 04/18/18 15:01 04/18/18 15:30 Temperature Pulse Rate 67 67 62 Respiratory Rate 19 19 22 Blood Pressure 120/58 L Pulse Oximetry 98 98 99 04/18/18 15:55 04/18/18 16:00 04/18/18 16:01 Temperature Pulse Rate 74 70 71 Respiratory Rate 20 27 H 27 H Blood Pressure 170/72 H Pulse Oximetry 98 98 97 04/18/18 16:30 04/18/18 16:43 04/18/18 18:00 Temperature 98.8 F 98.8 F Pulse Rate 72 72 72 Respiratory Rate 36 H 36 H Blood Pressure 170/72 H Pulse Oximetry 95 95 04/18/18 20:00 04/18/18 20:30 04/18/18 20:38 Temperature 98.8 F Pulse Rate 67 66 Respiratory Rate 20 20 20 Blood Pressure 110/98 H Pulse Oximetry 98 95 04/18/18 21:01 04/18/18 21:30 04/18/18 22:00 Temperature Pulse Rate 72 77 Respiratory Rate 34 H 31 H Blood Pressure 151/67 H Pulse Oximetry 96 95 04/18/18 22:01 04/18/18 22:30 04/18/18 23:00 Temperature Pulse Rate 77 69 69 Respiratory Rate 44 H 20 25 H Blood Pressure 163/71 H 146/65 H Pulse Oximetry 96 95 96 04/18/18 23:26 04/18/18 23:30 04/18/18 23:37 Temperature Pulse Rate 70 68 Respiratory Rate 20 35 H 20 Blood Pressure Pulse Oximetry 96 95 04/19/18 00:00 04/19/18 00:01 04/19/18 00:30 Temperature 98.8 F Pulse Rate 79 79 77 Respiratory Rate 32 H 32 H 30 H Blood Pressure 101/95 H 166/70 H Pulse Oximetry 95 95 96 04/19/18 01:00 04/19/18 01:01 04/19/18 01:30 Temperature Pulse Rate 76 76 74 Respiratory Rate 28 H 22 33 H Blood Pressure 160/69 H Pulse Oximetry 96 96 96 04/19/18 02:00 04/19/18 02:01 04/19/18 02:30 Temperature Pulse Rate 75 76 78 Respiratory Rate 27 H 38 H 19 Blood Pressure 163/70 H Pulse Oximetry 96 96 95 04/19/18 03:00 04/19/18 03:30 04/19/18 04:00 Temperature 98.6 F Pulse Rate 78 77 86 Respiratory Rate 21 28 H 22 Blood Pressure 153/69 H 174/72 H Pulse Oximetry 95 96 97 04/19/18 04:09 04/19/18 04:30 04/19/18 05:00 Temperature Pulse Rate 85 90 101 H Respiratory Rate 20 20 27 H Blood Pressure Pulse Oximetry 97 96 91 L 04/19/18 05:01 04/19/18 05:30 04/19/18 06:00 Temperature Pulse Rate 168 H 137 H 149 H Respiratory Rate 25 H 16 15 Blood Pressure 168/74 H Pulse Oximetry 92 L 91 L 91 L 04/19/18 06:01 04/19/18 06:30 04/19/18 07:00 Temperature Pulse Rate 147 H 129 H 136 H Respiratory Rate 15 21 21 Blood Pressure 163/71 H Pulse Oximetry 91 L 92 L 93 L 04/19/18 07:01 04/19/18 07:30 04/19/18 07:54 Temperature Pulse Rate 129 H 85 86 Respiratory Rate 21 20 20 Blood Pressure 85/56 L Pulse Oximetry 94 L 96 04/19/18 08:00 04/19/18 08:01 04/19/18 08:30 Temperature 98.1 F Pulse Rate 86 86 83 Respiratory Rate 21 23 26 H Blood Pressure 166/70 H Pulse Oximetry 96 95 94 L 04/19/18 09:00 04/19/18 09:01 04/19/18 09:30 Temperature Pulse Rate 81 77 71 Respiratory Rate 20 21 19 Blood Pressure 162/65 H Pulse Oximetry 94 L 94 L 93 L 04/19/18 10:00 04/19/18 10:01 04/19/18 10:30 Temperature Pulse Rate 69 69 68 Respiratory Rate 19 19 21 Blood Pressure 159/66 H Pulse Oximetry 92 L 92 L 91 L 04/19/18 11:00 04/19/18 11:01 04/19/18 11:05 Temperature 97.6 F Pulse Rate 67 68 Respiratory Rate 20 21 20 Blood Pressure 180/72 H Pulse Oximetry 92 L 92 L 97 Intake & Output 04/18/18 04/19/18 04/19/18 18:59 06:59 18:59 Intake Total 2871 / 2871 1309.1 / 1309.1 1000 / 1000 Output Total 2675 / 2675 1850 / 1850 Balance 196 / 196 -540.9 / -540.9 1000 / 1000 Weight 119.5 kg Intake: IV 2515 / 2515 734.1 / 734.1 1000 / 1000 Nimbex Inj 200 MG In NS Inj 480 1000 / 1000 500 / 500 500 / 500 ML @ 1 MCG/KG/MIN 18.75 mls/hr IV.CONT TITRATE PRN Rx#: [id number] Versed Inj 50 mg In 50 ml @ 2 100 / 100 84.1 / 84.1 MG/HR 2 mls/hr IV.CONT TITRATE PRN Rx#:[id number] Cordarone Inj 150 MG In D5W Inj 100 / 100 97 ML @ 100 mls/hr IV.SIG ONCE ONE Rx#:[id number] Avycaz Inj 2.5 GM In NS Inj 50 100 / 100 50 / 50 50 / 50 ML @ 25 mls/hr IV.SIG Q8H [facility] Rx#:[id number] Magnesium Sulfate 1 gm/D5W 100 200 / 200 100 / 100 ml Premix 100 ML @ 100 mls/hr IV.SIG Q1H [facility] Rx#:[id number] Potassium Phosphate Inj 30 MMOL 515 / 515 In NS Inj 250 ML @ 43.333 mls/ hr IV.SIG ONCE ONE Rx#:[id number] fentaNYL 10 mcg/mL Premix Drip 500 / 500 250 / 250 2,500 mcg In 250 ml @ 50 MCG/HR 5 mls/hr IV.SIG TITRATE PRN Rx #:[id number] Flolan (30,000 ng/mL) Neb 37.5 100 / 100 100 / 100 ML In NS Inj 62.5 ML @ As Directed NEB Q8H [facility] Rx#: [id number] Oral 0 / 0 Tube Feeding 236 / 236 475 / 475 Water Bolus Amount 120 / 120 100 / 100 Output: Urine Amount (Catheter) 2675 / 2675 1850 / 1850 Indwelling Urethral Catheter 2674 2675 1849 / 1850 Other: Date of Last Bowel Movement 04/17/18 04/17/18 04/17/18 - Constitutional no acute distress - Routine HEENT Exam Head: Present: normocephalic - Routine Neck Exam Present: supple - Routine Respiratory Exam Present: patient mechanically ventilated - Routine Cardiovascular Exam Present: RRR - Routine Abdominal Exam Present: soft - Routine Extremities Exam Comments: no edema - Routine Skin Exam Present: intact - Routine Psychiatric Exam Present: unable to assess - Urinary Catheter Management Indwelling Urethral Catheter Cath placed during this visit: yes Urethral indwelling: Yes Reason for continuing: Hourly intake/output Insertion date: 03/18/18 Insertion time: 21:00 Assessment and Plan - Assessment (1) Acute renal failure superimposed on stage 3 chronic kidney disease Code(s): N17.9 - Acute kidney failure, unspecified; N18.3 - Chronic kidney disease, stage 3 (moderate) Status: Acute Plan: Her baseline creatinine runs 1.6-2, GFR 44. YOU most likely due to cardiac arrest and decreased renal perfusion. Her renal function has improved - Creatinine 1.58 -> 1.2 today. She has had a very high BUN for the past couple of weeks. Oxygen requirement improving. Still with edema. Needs continued diuresis. On Bumex TID 2 mg. Metolazone still on hold. She is non oliguric and responding to diuretics - 4.5 L UOP/24 hours Avoid nephrotoxic agents,dose appropriate to renal status. Minimize non essential medications. Potassium being replaced, on free water for hypernatremia (Na 147) D/W her family. They do not wish to begin dialysis if needed. Her son makes the medical decisions. No need for dialysis at this point. (2) Acute respiratory failure with hypoxemia Code(s): J96.01 - Acute respiratory failure with hypoxia Status: Acute Plan: ARDS. High oxygen requirement (improved to 50%, PEEP 15). Poor prognosis. Management per critical care service. Needs better oxygenation prior to trach placement. (3) Diabetes mellitus type 2 in obese Code(s): E11.69 - Type 2 diabetes mellitus with other specified complication; E66.9 - Obesity, unspecified Status: Chronic Plan: Maintain glucose 140-180mg/dL while hospitalized. Use insulin if needed. (4) Hypertension Code(s): I10 - Essential (primary) hypertension Status: Chronic Plan: Monitor BP. Continue medications as ordered. (5) HCAP (healthcare-associated pneumonia) Code(s): J18.9 - Pneumonia, unspecified organism Status: Acute Plan: ID is following, managing antibiotics. Currently on Avycaz and Colistin neb. s/p bronch with cultures reviewed. Klebsiella PNA. (6) Diastolic heart failure Code(s): I50.30 - Unspecified diastolic (congestive) heart failure Status: Acute Plan: Monitor fluid status. Continue diuresis. She had an echo previous admission, EF 50%.
[2018-04-19] MEDS ORDERED: amLODIPine 10 MG Tablet PO ONE (13:56)
[2018-04-19] MEDS: Labetalol HCl Inj 100 MG/20 ML Vial IV.PUSH PRN ×2 (14:11→18:48)
--- NOTE | 2018-04-19 16:19 | ECG ---
Date Performed: 04/19/2018 Time Performed: 06:13:18 PTAGE: 52 years EKG: Atrial fibrillation with rapid ventricular response Nonspecific ST-T change Compared to pre vious tracing, Sinus rhythm has been replaced with atrial fibrillation. Clinical correlation recommended. Abnormal ECG PREVIOUS TRACING : 03/29/2018 15.12 DOCTOR: Bora Cuevas Interpretating Date/Time 04/19/2018 16:18:49
[2018-04-20 00:11] LABS: Magnesium 2.1 mg/dL (1.5-2.5); Phosphorus 3.2 mg/dL (2.5-4.9); Potassium 4.2 meq/L (3.5-5.1)
[2018-04-20] MEDS: Insulin NovoLIN Regular Correctional Sugar Inj SQ SCH ×6 (00:35→20:35)
[2018-04-20] MEDS: Labetalol HCl Inj 100 MG/20 ML Vial IV.PUSH PRN ×4 (00:35→17:01)
--- NOTE | 2018-04-20 01:43 | XR ---
EXAM DATE: 04/20/2018 1:24 AM EDT AGE/SEX: 52 years / Female INDICATIONS: Shortness of breath, possible pulmonary disease. CLINICAL DATA: This is the patient's subsequent encounter. Patient reports that signs and symptoms h ave been present for 1 month and indicates a pain score of Nonresponsive. MEDICAL/SURGICAL HISTORY: Cardiovascular disease. Hypertension. Diabetes mellitus type II. No ne. COMPARISON: [facility] – [place]ST 1V SINGLE AP, 04/19/2018. . FINDINGS: A single AP view of the chest demonstrates an endotracheal tube tip 4 cm from the elizabeth. Nasogastric tube tip courses off the inferior margin of the film. Bilateral pulmonary infiltrates are unchanged. Most pronounced within the bases. No discrete effusions. Heart is normal in size. CONCLUSION: Unchanged diffuse pulmonary infiltrates. Electronically signed by: Manish Ortiz MD 04/20/2018 1:42 AM EDT
[2018-04-20] MEDS: EPOPROSTENOL NEB SCH ×4 (03:08→17:01)
[2018-04-20] MEDS: SODIUM CHLOR NEB SCH ×4 (03:08→17:01)
[2018-04-20] MEDS: Hypromellose 0.3% Opth Gel 10 GM Bottle EACH EYE SCH ×3 (03:10→19:47)
[2018-04-20] MEDS: Oral Hygiene Kit OROPHARYNG SCH ×3 (04:10→15:47)
[2018-04-20] MEDS: QUEtiapine 25 MG Tablet PO SCH ×3 (05:35→21:52)
[2018-04-20] MEDS: Ceftazidime/Avibactam Inj 2.5 GM in Sodium Chlor 0.9% Inj 50 ML IV.SIG SCH ×3 (05:35→21:52)
[2018-04-20] MEDS: CISATRACURIUM IV.CONT PRN ×3 (05:36→21:50)
[2018-04-20] MEDS: SODIUM CHLOR 0.9% IV.CONT PRN ×3 (05:36→21:50)
[2018-04-20] MEDS: Midazolam 50 MG/50 ML Inj 50 MG/50 ML BAG IV.CONT PRN ×4 (06:27→23:24)
[2018-04-20 08:12] LABS: Baso % (Auto) 0.4 % (0.0-2.0); Eos # (Auto) 0.1 th/mm3 (0.0-0.4); Eos % (Auto) 0.8 % (0.0-4.0); Hematocrit 24.4 % (35.0-46.0); Hemoglobin 7.6 gm/dL (11.6-15.3); Lymph # (Auto) 0.8 th/mm3 (1.0-4.8); Lymph % (Auto) 7.6 % (9.0-44.0); Mean Corpuscular HGB Conc 31.2 % (32.0-36.0); Mean Corpuscular Hemoglobin 26.3 pg (27.0-34.0); Mean Corpuscular Volume 84.4 fL (80.0-100.0); Mean Platelet Volume 10.6 fL (7.0-11.0); Mono # (Auto) 0.6 th/mm3 (0.0-0.9); Mono % (Auto) 5.7 % (0.0-8.0); Neut % (Auto) 85.5 % (16.0-70.0); Platelet Count 169 th/mm3 (150-450); Red Blood Count 2.89 mil/mm3 (4.00-5.30); Red Cell Distribution Width 21.3 % (11.6-17.2); White Blood Count 10.6 th/mm3 (4.0-11.0)
[2018-04-20 08:37] LABS: Anion Gap 12 meq/L (5-15); Aspartate Aminotransferase 22 U/L (15-37); Blood Urea Nitrogen 117 mg/dL (7-18); Calcium 9.4 mg/dL (8.5-10.1); Carbon Dioxide 27.1 meq/L (21.0-32.0); Chloride 106 meq/L (98-107); Glomerular Filtration Rate 50 mL/min (>89); Glucose,Random 230 mg/dL (74-106); Magnesium 2.2 mg/dL (1.5-2.5); Potassium 4.1 meq/L (3.5-5.1); Sodium 145 meq/L (136-145)
[2018-04-20 08:39] LABS: Alanine Aminotransferase 26 U/L (10-53); Phosphorus 3.4 mg/dL (2.5-4.9)
[2018-04-20 08:40] LABS: Alkaline Phosphatase 82 U/L (45-117); Total Protein 6.9 g/dL (6.4-8.2)
[2018-04-20] MEDS: Insulin Detemir Inj 1,000 UNIT/10 ML Vial SQ SCH ×2 (09:26→20:36)
[2018-04-20] MEDS: Chlorhexidine 0.12% Oral Kit 15 ML UDC OROPHARYNG SCH ×2 (09:26→19:48)
[2018-04-20] MEDS: Famotidine 20 MG Tablet PO SCH ×2 (09:28→20:35)
[2018-04-20] MEDS: Senna/Docusate Sodium 8.6/50 MG Tablet PO SCH ×2 (09:28→20:35)
[2018-04-20] MEDS: amLODIPine 10 MG Tablet PO SCH (09:28)
[2018-04-20] MEDS: Lipase/Protease/Amylase 24/76/120 DR Capsule PO SCH ×3 (09:28→17:00)
[2018-04-20] MEDS: MethylPREDNISolone Sod Succinate Inj 40 MG/ML Vial IV.PUSH SCH (09:29)
[2018-04-20] MEDS: Heparin - SQ 10,000 UNITS/ML Vial SQ SCH ×2 (09:29→20:35)
[2018-04-20] MEDS: fentaNYL 10 mcg/mL Premix Drip 2,500 MCG/250 ML BAG IV.SIG PRN ×2 (09:37→21:19)
[2018-04-20] MEDS: Sod Chloride 0.9% Inj 1,000 ML OTHER SCH (10:16)
--- NOTE | 2018-04-20 12:18 | P.PNNP ---
Subjective Interval history: Paralytic continues. On 60% FiO2. Edema is better. Renal function is improving. <Myrtle Levi - Last Filed: 04/20/18 12:14> Physical Exam Vital signs: Vital Signs 04/19/18 12:27 04/19/18 12:30 04/19/18 13:00 Temperature Pulse Rate 80 72 67 Respiratory Rate 33 H 34 H 22 Blood Pressure 194/84 H Pulse Oximetry 93 L 93 L 92 L 04/19/18 13:01 04/19/18 13:06 04/19/18 13:30 Temperature Pulse Rate 67 66 66 Respiratory Rate 29 H 23 33 H Blood Pressure 176/113 H 171/70 H Pulse Oximetry 92 L 92 L 92 L 04/19/18 14:00 04/19/18 14:30 04/19/18 14:34 Temperature Pulse Rate 67 61 62 Respiratory Rate 35 H 33 H 20 Blood Pressure 191/79 H Pulse Oximetry 91 L 89 L 04/19/18 14:35 04/19/18 14:39 04/19/18 15:00 Temperature Pulse Rate 61 61 Respiratory Rate 20 30 H 29 H Blood Pressure 174/73 H Pulse Oximetry 93 L 92 L 91 L 04/19/18 15:01 04/19/18 15:30 04/19/18 16:00 Temperature Pulse Rate 63 62 63 Respiratory Rate 25 H 27 H 24 Blood Pressure 160/66 H Pulse Oximetry 91 L 93 L 93 L 04/19/18 16:01 04/19/18 16:30 04/19/18 17:00 Temperature 97.1 F L Pulse Rate 63 67 68 Respiratory Rate 20 25 H 25 H Blood Pressure 169/72 H Pulse Oximetry 93 L 92 L 92 L 04/19/18 17:01 04/19/18 18:00 04/19/18 19:32 Temperature Pulse Rate 67 67 Respiratory Rate 22 20 Blood Pressure 187/76 H Pulse Oximetry 92 L 92 L 04/19/18 19:37 04/19/18 20:00 04/19/18 21:49 Temperature 98 F Pulse Rate 70 68 71 Respiratory Rate 20 20 20 Blood Pressure 120/55 L Pulse Oximetry 95 04/19/18 22:00 04/20/18 00:00 04/20/18 00:10 Temperature 98.8 F Pulse Rate 71 69 Respiratory Rate 20 20 Blood Pressure 110/97 H Pulse Oximetry 97 98 04/20/18 02:00 04/20/18 04:00 04/20/18 04:04 Temperature 97.9 F Pulse Rate 67 73 72 Respiratory Rate 20 20 Blood Pressure 179/77 H Pulse Oximetry 98 04/20/18 05:00 04/20/18 06:00 04/20/18 07:53 Temperature Pulse Rate 68 65 Respiratory Rate 20 20 Blood Pressure Pulse Oximetry 98 98 04/20/18 08:00 04/20/18 10:00 Temperature 97.6 F Pulse Rate 64 66 Respiratory Rate 37 H Blood Pressure 164/70 H Pulse Oximetry 100 Intake & Output 04/19/18 04/20/18 04/20/18 18:59 06:59 18:59 Intake Total 3390 / 3390 1784 / 1784 334.1 / 334.1 Output Total 2950 / 2950 1750 / 1750 1300 / 1300 Balance 440 / 440 34 / 34 -965.9 / -965.9 Weight 119 kg Intake: IV 2400 / 2400 1000 / 1000 334.1 / 334.1 Cordarone Inj 450 MG In D5W Inj 250 / 250 250 / 250 241 ML @ 1 MG/MIN 33.33 mls/hr IV.CONT TITRATE PRN Rx#: [id number] Nimbex Inj 200 MG In NS Inj 480 1000 / 1000 500 / 500 ML @ 1 MCG/KG/MIN 18.75 mls/hr IV.CONT TITRATE PRN Rx#: [id number] Versed Inj 50 mg In 50 ml @ 2 50 / 50 100 / 100 34.1 / 34.1 MG/HR 2 mls/hr IV.CONT TITRATE PRN Rx#:[id number] Cordarone Inj 150 MG In D5W Inj 100 / 100 97 ML @ 100 mls/hr IV.SIG ONCE ONE Rx#:[id number] Avycaz Inj 2.5 GM In NS Inj 50 100 / 100 50 / 50 50 / 50 ML @ 25 mls/hr IV.SIG Q8H [facility] Rx#:[id number] Magnesium Sulfate 1 gm/D5W 100 200 / 200 ml Premix 100 ML @ 100 mls/hr IV.SIG Q1H [facility] Rx#:[id number] KCl 40 mEq Premix Inj 40 meq In 100 / 100 100 ml @ 25 mls/hr IV.SIG ONCE ONE Rx#:[id number] fentaNYL 10 mcg/mL Premix Drip 500 / 500 250 / 250 2,500 mcg In 250 ml @ 50 MCG/HR 5 mls/hr IV.SIG TITRATE PRN Rx #:[id number] Flolan (30,000 ng/mL) Neb 37.5 100 / 100 100 / 100 ML In NS Inj 62.5 ML @ As Directed NEB Q8H [facility] Rx#: [id number] Oral 0 / 0 0 / 0 Tube Feeding 570 / 570 484 / 484 Tube Irrigant 120 / 120 Water Bolus Amount 300 / 300 300 / 300 Output: Urine Amount (Catheter) 2950 / 2950 1750 / 1750 1300 / 1300 Indwelling Urethral Catheter 2950 / 2950 1750 / 1750 1300 / 1300 Other: Date of Last Bowel Movement 04/17/18 04/17/18 04/17/18 - Constitutional no acute distress, morbidly obese - Routine HEENT Exam Head: Present: normocephalic - Routine Neck Exam Present: supple, full ROM - Routine Respiratory Exam Present: patient mechanically ventilated, CTA bilaterally - Routine Cardiovascular Exam Present: RRR, S1, S2. Absent: murmur - Routine Abdominal Exam Present: soft, normoactive bowel sounds - Routine Extremities Exam Present: edema, pulses intact, amputation - Routine Skin Exam Present: intact, dry, warm - Routine Neurological Exam sedated and unresponsive. - Routine Psychiatric Exam Present: unable to assess - Urinary Catheter Management Indwelling Urethral Catheter Cath placed during this visit: yes Urethral indwelling: Yes Reason for continuing: Hourly intake/output Insertion date: 03/18/18 Insertion time: 21:00 <Myrtle Levi - Last Filed: 04/20/18 12:14> Vital signs: Vital Signs 04/20/18 12:00 04/20/18 12:59 04/20/18 14:00 Temperature 97.9 F Pulse Rate 64 78 Respiratory Rate 38 H 20 Blood Pressure 136/61 Pulse Oximetry 98 100 04/20/18 15:12 04/20/18 16:00 04/20/18 16:30 Temperature 98 F Pulse Rate 80 81 78 Respiratory Rate 20 31 H 31 H Blood Pressure 161/70 H Pulse Oximetry 97 97 97 04/20/18 17:00 04/20/18 17:30 04/20/18 18:00 Temperature Pulse Rate 79 64 65 Respiratory Rate 40 H 40 H 47 H Blood Pressure 166/70 H Pulse Oximetry 97 95 96 04/20/18 18:01 04/20/18 18:30 04/20/18 19:00 Temperature Pulse Rate 65 78 73 Respiratory Rate 40 H 37 H 32 H Blood Pressure 121/56 L Pulse Oximetry 96 97 97 04/20/18 19:01 04/20/18 19:30 04/20/18 20:00 Temperature 98.1 F Pulse Rate 75 71 80 Respiratory Rate 38 H 39 H 40 H Blood Pressure 164/70 H 165/72 H Pulse Oximetry 97 96 97 04/20/18 20:05 04/20/18 20:10 04/20/18 20:30 Temperature Pulse Rate 79 69 Respiratory Rate 21 20 42 H Blood Pressure Pulse Oximetry 97 98 04/20/18 20:49 04/20/18 21:00 04/20/18 21:01 Temperature Pulse Rate 70 65 65 Respiratory Rate 20 43 H 43 H Blood Pressure 120/57 L Pulse Oximetry 99 99 04/20/18 21:30 04/20/18 22:00 04/20/18 22:01 Temperature Pulse Rate 68 70 70 Respiratory Rate 42 H 41 H 50 H Blood Pressure 147/66 H Pulse Oximetry 100 98 97 04/20/18 22:30 04/20/18 23:00 04/20/18 23:01 Temperature Pulse Rate 64 63 63 Respiratory Rate 43 H 47 H 49 H Blood Pressure 129/61 Pulse Oximetry 98 98 98 04/20/18 23:30 04/21/18 00:00 04/21/18 00:09 Temperature 98.1 F Pulse Rate 68 64 Respiratory Rate 55 H 42 H 20 Blood Pressure 120/58 L Pulse Oximetry 98 97 97 04/21/18 00:30 04/21/18 01:00 04/21/18 01:30 Temperature Pulse Rate 63 61 64 Respiratory Rate 37 H 41 H 42 H Blood Pressure 133/60 Pulse Oximetry 97 98 99 04/21/18 02:00 04/21/18 02:30 04/21/18 02:36 Temperature Pulse Rate 63 60 Respiratory Rate 42 H 41 H 20 Blood Pressure 125/60 Pulse Oximetry 98 98 98 04/21/18 03:00 04/21/18 03:01 04/21/18 03:16 Temperature Pulse Rate 65 66 63 Respiratory Rate 42 H 45 H 20 Blood Pressure 170/74 H Pulse Oximetry 99 99 04/21/18 03:30 04/21/18 04:00 04/21/18 04:20 Temperature 98.6 F Pulse Rate 69 67 Respiratory Rate 35 H 43 H 20 Blood Pressure 168/71 H Pulse Oximetry 100 99 98 04/21/18 04:30 04/21/18 06:00 04/21/18 07:54 Temperature Pulse Rate 64 84 79 Respiratory Rate 40 H 20 Blood Pressure Pulse Oximetry 96 04/21/18 07:55 04/21/18 08:00 04/21/18 10:00 Temperature 97.8 F Pulse Rate 81 84 Respiratory Rate 20 27 H Blood Pressure 181/76 H Pulse Oximetry 94 L 94 L Intake & Output 04/20/18 04/21/18 04/21/18 18:59 06:59 18:59 Intake Total 2015. 2676 / 2676 934.1 / 934.1 Output Total 2350 / 2350 1450 / 1450 Balance -333.9 / -333.9 1226 / 1226 934.1 / 934.1 Weight 121 kg Intake: IV 1034.1 / 1034.1 1750 / 1750 934.1 / 934.1 Cordarone Inj 450 MG In D5W Inj 250 / 250 250 / 250 241 ML @ 1 MG/MIN 33.33 mls/hr IV.CONT TITRATE PRN Rx#: [id number] Nimbex Inj 200 MG In NS Inj 480 500 / 500 1000 / 1000 500 / 500 ML @ 1 MCG/KG/MIN 18.75 mls/hr IV.CONT TITRATE PRN Rx#: [id number] Versed Inj 50 mg In 50 ml @ 2 84.1 / 84.1 100 / 100 34.1 / 34.1 MG/HR 2 mls/hr IV.CONT TITRATE PRN Rx#:[id number] Avycaz Inj 2.5 GM In NS Inj 50 100 / 100 50 / 50 50 / 50 ML @ 25 mls/hr IV.SIG Q8H [facility] Rx#:[id number] fentaNYL 10 mcg/mL Premix Drip 250 / 250 250 / 250 2,500 mcg In 250 ml @ 50 MCG/HR 5 mls/hr IV.SIG TITRATE PRN Rx #:[id number] Flolan (30,000 ng/mL) Neb 37.5 100 / 100 100 / 100 100 / 100 ML In NS Inj 62.5 ML @ As Directed NEB Q8H [facility] Rx#: [id number] Oral 0 / 0 Tube Feeding 562 / 562 446 / 446 Tube Irrigant 120 / 120 180 / 180 Water Bolus Amount 300 / 300 300 / 300 Output: Urine Amount (Catheter) 2350 / 2350 1450 / 1450 Indwelling Urethral Catheter 2350 / 2350 1450 / 1450 Other: Date of Last Bowel Movement 04/17/18 04/21/18 04/21/18 - Urinary Catheter Management Indwelling Urethral Catheter Cath placed during this visit: no <Alverto Fraser - Last Filed: 04/21/18 11:07> Assessment and Plan - Assessment (1) Acute renal failure superimposed on stage 3 chronic kidney disease Code(s): N17.9 - Acute kidney failure, unspecified; N18.3 - Chronic kidney disease, stage 3 (moderate) Status: Acute Plan: Her baseline creatinine runs 1.6-2, GFR 44. YOU most likely due to cardiac arrest and decreased renal perfusion. Her renal function is improving. She has had a very high BUN for the past couple of weeks, also improving. . Oxygen requirement and edema also improving. Needs continued diuresis. On Bumex 2 mg BID. Metolazone still on hold. She is non oliguric and responding to diuretics. Avoid nephrotoxic agents,dose appropriate to renal status. Minimize non essential medications. D/W her family. They do not wish to begin dialysis if needed. Her son makes the medical decisions. No need for dialysis at this point. (2) Acute respiratory failure with hypoxemia Code(s): J96.01 - Acute respiratory failure with hypoxia Status: Acute Plan: ARDS. High oxygen requirement. Management per critical care service. Needs better oxygenation prior to trach placement. (3) Diabetes mellitus type 2 in obese Code(s): E11.69 - Type 2 diabetes mellitus with other specified complication; E66.9 - Obesity, unspecified Status: Chronic Plan: Maintain glucose 140-180mg/dL while hospitalized. Use insulin if needed. (4) Hypertension Code(s): I10 - Essential (primary) hypertension Status: Chronic Plan: Monitor BP. Continue medications as ordered. (5) HCAP (healthcare-associated pneumonia) Code(s): J18.9 - Pneumonia, unspecified organism Status: Acute Plan: ID is following, managing antibiotics. Currently on Avycaz and Colistin neb. s/p bronch with cultures reviewed. Klebsiella PNA. (6) Diastolic heart failure Code(s): I50.30 - Unspecified diastolic (congestive) heart failure Status: Acute Plan: Monitor fluid status. Continue diuresis. She had an echo previous admission, EF 50%. <Myrtle Levi - Last Filed: 04/20/18 12:14> - Assessment (1) Acute renal failure superimposed on stage 3 chronic kidney disease Code(s): N17.9 - Acute kidney failure, unspecified; N18.3 - Chronic kidney disease, stage 3 (moderate) Status: Acute (2) Acute respiratory failure with hypoxemia Code(s): J96.01 - Acute respiratory failure with hypoxia Status: Acute (3) Diabetes mellitus type 2 in obese Code(s): E11.69 - Type 2 diabetes mellitus with other specified complication; E66.9 - Obesity, unspecified Status: Chronic (4) Hypertension Code(s): I10 - Essential (primary) hypertension Status: Chronic (5) HCAP (healthcare-associated pneumonia) Code(s): J18.9 - Pneumonia, unspecified organism Status: Acute (6) Diastolic heart failure Code(s): I50.30 - Unspecified diastolic (congestive) heart failure Status: Acute - Attending Attestation patient was seen and examined. Agree with above assessment and plan. Prognosis is guarded. <Alverto Fraser - Last Filed: 04/21/18 11:07>
--- NOTE | 2018-04-20 19:37 | P.PNCC ---
Subjective Subjective Remarks/Hospital Course: 52-year-old female with past medical history of diabetes mellitus, hypertension, hyperlipidemia, atrial fibrillation on chronic anticoagulation with warfarin, chronic diastolic heart failure, asthma, WISAM, peripheral vascular disease, super morbid obesity. She has been at [facility] since 03/02/18. Abeba JACOBO was called due to respiratory distress. When they arrived as she was found to be in respiratory distress with sats in the 70s. She was communicating with them and reportedly said "leave me alone". She then had PEA arrest. She received CPR reportedly 10-15 minutes and received 2 doses of epinephrine. LMA was placed by EVAC. LMA was removed and she was intubated by Dr. Daly after receiving etomidate 20 mg IV and succinylcholine. She has demonstrated purposeful movements post intubation, and is now on a propofol drip. She was recently admitted to [facility] 02/24-03/02 due to hypoglycemia, fall after isolated episode of diarrhea, hypoxia requiring HFNC. She has chronic interstitial changes on CXR. Reviewed records from [facility] which indicate she completed a 7 day course of Levaquin and has been on a prednisone taper. Current CXR shows bibasilar opacities. WBC is 16 ( previously 7.9). She has acute hypercapneic and hypoxemic respiratory failure. 03/19: Afebrile. Remains on 100% FiO2 PEEP of 12. Central has been placed for access due to multiple drips. Plan MRI brain today if respiratory status improves. Does not tolerate lying flat. Likely will need epoprostenol and rotaprone 03/20: Started on epoprostenol and currently on a rotor from bed. Currently on cisatracurium drip at 1 mcg/kg/min. Diuresing well. 03/21: Weaning down epoprostenol. Remains on cisatracurium drip at 6 mcg/kg/ min. Diuresis 6 L. Saturation was improved FiO2 down to 45%. 03/22: Hypothermic overnight. Currently euthermic. Excellent response to bumetanide drip. FiO2 down to 40%. PEEP down to 8. Possible discontinue paralytic agent today. 03/23: Resting comfortable in bed in no acute distress. Afebrile. Desaturated so placed back on rotor prone bed. Creatinine slowly increasing. 03/24: Afebrile. Worsening chest x-ray it appears to be volume overloaded again. +10 L past 24 hours. Will restart on bumetanide drip. Plan for bronchoscopy today. Switch to ceftazidime/avibactam secondary to ESBL positive Klebsiella pneumonia 03/25: FiO2 to 55%. Tolerating demanding drip with -2 L past 24 hours. Bronchoscopy results pending. Positive BM. Restarting tube feeding today 03/26: Cr continues to rise, although clinically continues to appear severely volume overloaded. fio2 70%. supine all night. off nimbex. off flolan. ID managing ESBL/MDRO/KPC Klebsiella and anaerobic bacteremia. 03/27: off rotaprone bed. multiple desat episodes overnight. on 100% fio2 and PEEP 10 this AM. good diuresis with net -2L/24h. bumex drip continues. awakens and follows commands. 03/28: not diuresing as well as yesterday. wbc uptrending. 2 more episodes of bradycardia, not associated with hypoxia. however, fio2 remains severely elevated. I increased her peep to 14. still arouses and moves all extremities. high concern for ongoing infectious etiology, but with high o2 requirements and intermittent bradycardia requiring atropine, at present too unstable for repeat imaging. 03/29: ct C/A/P without overt infectious source. does demonstrate radiographic evidence of biventricular dysfunction. bedside echo today demonstrates the same , and dilated IVC without respiratory variation. off vasopressors. required atropine for a HR of 15 once overnight. still very hypoxic: changed to APRV 5:1 , 28/0, 4/0.8. 03/30: remains on APRV with hypoxia. multiple episodes of bradycardia and a 18 second pause yesterday. trialed on dobutamine but with multiple dysrhythmias. now on low-dose dopamine to mitigate bradycardia. adequate diuresis overnight. cxr improving slightly. still remains volume overloaded, and YOU persists. 03/31: mild improvements in fio2. remains on APRV. no more bradycardia today. still on dopamine to prevent pauses/bradycardia. YOU persists, but stable. unable to diurese yesterday and now net +2L despite fluid overload. must increase forced diuresis to improve hypoxemia. 04/01: Remains sedated, orally intubated on mechanical ventilation. Being diuresed. Started on Reglan in view of high gastric residuals and decreasing fentanyl as tolerated. 04/02: Remains sedated, orally intubated on APRV mode mechanical ventilation. 04/03: Remains sedated, orally intubated on mechanical ventilation. Awaiting family meeting with palliative care to decide goals of therapy. Being diuresed. 04/04: Remains sedated, orally intubated on mechanical ventilation. Switch to PRVC mode overnight. On 50% FiO2, PEEP +8. Family deciding regarding goals of therapy. 04/05: Remains sedated, orally intubated on mechanical ventilation. PEEP increased to +10 overnight due to hypoxia. 04/06: Remains sedated, orally intubated on mechanical ventilation. Worsening oxygenation since yesterday. Chest x-ray showed fluid overload. Resume Bumex twice daily yesterday in addition to Zaroxolyn PO. 04/07: Remains sedated, orally intubated on mechanical ventilation. Diuresed. Renal function remains a concern. Started on colistin nebs per ID due to very resistant organisms in sputum. Eventually needs tracheostomy and PEG tube placement. 04/08 Patient remains sedated with Versed and Fentanyl infusion. On Cardene drip.Had T:99.7 last night. Remains on high PEEP and FIO2( PEEP:15, FIO2: 65%) 04/09 Patient is intubated with Versed and Fentanyl drips. Tmax 100.3. Now on PRVC with PEEP:12 and FIO2 100% 04/10 Patient is sedated with Fentanyl and Versed drips. Flolan started yesterday. On PRVC with PEEP: 15 and FIO2 100%. Afebrile. 04/11 Patient was hypoxic overnight with [id number] given Rocuronium 100mg IV for desaturation and vent synchrony remains on high PEEP15 with 100%FIO2. Sedated with Versed and Fentanyl drips. CXR this morning shows diffuse b/l infiltrates severe in lower lung zones. 04/12 Patient remains sedated and intubated and on Flolan. Afebrile. 04/13 Patient remains sedated with Versed and Fentanyl and intubated. Afebrile. On Flolan . On PRVC with PEEP: 15, FIO2 down 70%. 04/14 Patient had another episode of desaturation overnight now on PRVC with PEEP :15 and 100% FIO2. T:99.7 last night. Sedated with Versed/Fentanyl drips. On Flolan 04/15 Patient remans sedated with Fentanyl, Versed and intubated. Afebrile. On PRVC with PEEP:15 and FIO2 75%. 04/16: Intubation day #29. Afebrile. FiO2 increased to 100%. More secretions. Will need to paralyze with cisatracurium drip for vent synchrony as patient is currently out of peeping despite maximum midazolam and fentanyl drips. Remains on epoprostenol 04/17: The patient day #30. Remains on cisatracurium drip at 5 mcg/kg/min. FiO2 down to 50%. Chest x-ray reveals diffuse ARDS. Tolerating tube feeds. 04/18: Intubation day #31. We will attempt to wean off cisatracurium drip. FiO2 remains around 50%. Tolerating tube feeding. SUBJECTIVE 04/19: Intubation day #32. Patient went to A. fib with RVR overnight. Given 0.5 mg digoxin. Started on amiodarone drip per protocol currently normal sinus rhythm. Did not tolerate paralytic vacation yesterday became tachypneic and auto PEEP 04/20: no meaningful improvements. fio2 remains high. intubation day #33. some family now discussing possibility of withdraw of care and transition of goals, however did not have all family at bedside for my discussion, so will need to involve all family in this discussion. rate better controlled and out of RVR. all organ dysfunction persists and we have been unable to lighten paralytic or sedation at all without hypoxia. Objective Vital Signs / I&O: Vital Signs 04/19/18 19:37 04/19/18 20:00 04/19/18 21:49 Temperature 36.6 C Pulse Rate 70 68 71 Respiratory Rate 20 20 20 Blood Pressure 120/55 L Pulse Oximetry 95 04/19/18 22:00 04/20/18 00:00 04/20/18 00:10 Temperature 37.1 C Pulse Rate 71 69 Respiratory Rate 20 20 Blood Pressure 110/97 H Pulse Oximetry 97 98 04/20/18 02:00 04/20/18 04:00 04/20/18 04:04 Temperature 36.6 C Pulse Rate 67 73 72 Respiratory Rate 20 20 Blood Pressure 179/77 H Pulse Oximetry 98 04/20/18 05:00 04/20/18 06:00 04/20/18 07:53 Temperature Pulse Rate 68 65 Respiratory Rate 20 20 Blood Pressure Pulse Oximetry 98 98 04/20/18 08:00 04/20/18 10:00 04/20/18 12:00 Temperature 36.4 C 36.6 C Pulse Rate 64 66 64 Respiratory Rate 37 H 38 H Blood Pressure 164/70 H 136/61 Pulse Oximetry 100 98 04/20/18 12:59 04/20/18 14:00 04/20/18 15:12 Temperature Pulse Rate 78 80 Respiratory Rate 20 20 Blood Pressure Pulse Oximetry 100 97 04/20/18 16:00 04/20/18 18:00 Temperature 36.6 C Pulse Rate 81 65 Respiratory Rate 31 H Blood Pressure 161/70 H Pulse Oximetry 97 Intake & Output 04/20/18 04/20/18 04/21/18 06:59 18:59 06:59 Intake Total 1784 / 1784 2015. Output Total 1750 / 1750 2350 / 2350 Balance 34 / 34 -333.9 / -333.9 Weight 119 kg Intake: IV 1000 / 1000 1034.1 / 1034.1 Cordarone Inj 450 MG In D5W Inj 250 / 250 241 ML @ 1 MG/MIN 33.33 mls/hr IV.CONT TITRATE PRN Rx#: [id number] Nimbex Inj 200 MG In NS Inj 480 500 / 500 500 / 500 ML @ 1 MCG/KG/MIN 18.75 mls/hr IV.CONT TITRATE PRN Rx#: [id number] Versed Inj 50 mg In 50 ml @ 2 100 / 100 84.1 / 84.1 MG/HR 2 mls/hr IV.CONT TITRATE PRN Rx#:[id number] Avycaz Inj 2.5 GM In NS Inj 50 50 / 50 100 / 100 ML @ 25 mls/hr IV.SIG Q8H JACKI Rx#:[id number] fentaNYL 10 mcg/mL Premix Drip 250 / 250 2,500 mcg In 250 ml @ 50 MCG/HR 5 mls/hr IV.SIG TITRATE PRN Rx #:[id number] Flolan (30,000 ng/mL) Neb 37.5 100 / 100 100 / 100 ML In NS Inj 62.5 ML @ As Directed NEB Q8H JACKI Rx#: [id number] Oral 0 / 0 0 / 0 Tube Feeding 484 / 484 562 / 562 Tube Irrigant 120 / 120 Water Bolus Amount 300 / 300 300 / 300 Output: Urine Amount (Catheter) 1750 / 1750 2350 / 2350 Indwelling Urethral Catheter 1750 / 1750 2350 / 2350 Other: Date of Last Bowel Movement 04/17/18 04/17/18 Result Diagrams: 04/20/18 05:15 04/20/18 05:15 Objective Remarks: GENERAL: 52 YO AAF critically ill currently orotracheally intubated SKIN: Warm and dry. HEAD: Normocephalic. EYES: Disconjugate. Left eye leftward gaze. Pupils are round 2 mm bilaterally and reactive. No scleral icterus. No injection or drainage. NECK: Supple, trachea midline. No JVD or lymphadenopathy. CARDIOVASCULAR: Regular rate and rhythm. S1, S2 no S4. Without murmur without murmurs, gallops, or rubs. RESPIRATORY: Diminished breath sounds throughout. No wheezing. GASTROINTESTINAL: Abdomen soft, non-tender, nondistended. MUSCULOSKELETAL: + [place] peripheral edema. Neuro: sedated and intubated. Positive corneal reflex. Does not withdraw to pain. Currently on paralytic with a [id number] of 2 out of 4 Assessment and Plan - Assessment and Plan Plan: Assessment: 52yF with severe ARDS which has been refractory to aggressive medical therapy, including recent pronation therapy, inhaled epoprostanol, neuromuscular blockade. associated organ dysfunction persists, including encephalopathy and acute kidney injury. no meaningful improvements in weeks, and now day #33 of intubation. unable to safely pursue tracheostomy due to high fio2 requirements. remains very critically ill with severe acute lung failure which has been refractory to all our attempts at improvement in gas exchange. NEURO/PSYCH: Acute encephalopathy - secondary to hypercapnia, improving. Abnormal brain CT with 3 mm hyperdensity in central [place] Major depressive disorder NOS Chronic opioid use Encephalomalacia right cerebellum/left occipital lobe Currently on scheduled oxycodone 20mg po q4h Quetiapine 50mg po q8h for delirium. Continue with midazolam drip at 8 mg an hour and fentanyl drip at 250 mg an hour for sedation/analgesia while intubated Continue cisatracurium drip currently on for vent synchrony Monitor neuro status. Daily sedation vacation when clinically appropriate.. Followup MRI brain 03/19 - No evidence of brainstem hemorrhage. Small foci of encephalomalacia in the left occipital lobe and right cerebellum. No evidence of acute infarct, hemorrhage, mass or edema. No evidence of enhancing intra- axial or extra-axial lesions. RESP: Acute hypercapnic and hypoxemic respiratory failure Severe ARDS Acute asthma exacerbation Healthcare associated pneumonia WISAM/OHS Prior tobacco abuse Bilateral pleural effusions right 2.2 cm. Left 1.3 cm LMA was placed in the field by EVAC. Intubated in ED 03/18. Intubation day #31 Continue with vent support keep sats >92% On albuterol/ipratropium aerosols every 6 hours with albuterol aerosols every 2 hours as needed for dyspnea Weaned off epoprostenol 03/23. Flolan 30,000 ng/ml resumed 04/09 currently at 50, 000 ng/mL On PRVC RR 20, TV 550, IT:1.10, PEEP:15, FIO2: 100% On methylprednisolone succinate 40mg IV daily, CXR ordered for a.m. 04/17 revealed diffuse ARDS. CV: Hypertension Hyperlipidemia Chronic diastolic heart failure Paroxysmal atrial fibrillation on chronic anti-coagulation with warfarin currently normal sinus rhythm Peripheral vascular disease/peripheral arterial disease Elevated troponin intermittent bradycardia Cor pulmonale biventricular dysfunction Monitor HR and BP keep MAP>65mmHg 2D echo 02/24/18ejection fraction 50%. Wall thickness upper limits of normal. Trace MR. Continue atorvastatin 40 mg daily for dyslipidemia Doppler bilateral upper and lower extremities revealed no acute thrombus amlodipine 10mg po daily resumed 04/17. Recently held due to edema concerns. T hydralazine 100mg po q8h, Clonidine 0.2 mg q. 7 days patch, carvedilol 3.125 mg BID, Currently on amiodarone drip at 0.5 mg/min. GI: History of GERD Chronic pancreatitis insufficiency Hypoalbuminemia vital high-protein @45 cc an hour per GIs recommendation Famotidine for GI prophylaxis Docusate sodium/senna 1 tablet twice daily for bowel regimen Creon home medication 3 times daily FEN/RENAL: Acute kidney injury superimposed on CKD Chronic kidney disease stage III Acute severe intravascular volume overload with pulmonary edema Hypernatremia Hypokalemia [place] catheter was placed in the emergency department. Monitor renal function, I/O's, avoid nephrotoxins On Bumetanide 2mg BID Cr: 1.26 Renal is following- Dr. Fraser Receiving 40 mEq potassium chloride IV, 25 mEq by tube and 2 g mag sulfate. Recheck potassium this evening. Free water 150 cc every 6 hours for hypernatremia. Recheck BMP in a.m. ID: Acute healthcare associated pneumonia -ESBL positive Klebsiella pneumonia Veillonella species bacteremia Continue with abx per ID (ceftazidime/avibactam, Colistin nebs,) Monitor for signs of infections ( Fever, WBC) 04/10 Sputum: Normal resp jennifer Blood cultures 2 03/18 Veillonella spp. Repeat 03/20 no growth to date Sputum, ESBL positive Klebsiella pneumonia 04/04 Sputum 04/14 gram-negative rhona Pneumococcal urinary antigens, influenza a and B and chlamydia and mycoplasma all pending/negative HEME: Leukocytosis Chronic anemia/normocytic Monitor CBC daily. No indication for transfusion of blood products at this time. ENDO: Diabetes mellitus History of gout SSI q4h high scale Increase insulin detemir to 50 units subcu twice daily. Holding glipizide 10 mg twice daily and insulin glargine/home medication Holding allopurinol 300 mg daily/home medication MSK: Elevated BMI Osteoporosis/osteoarthritis PT evaluate and treat PROPH: SCDs for DVT prophylaxis. Heparin SQ ACCESS: Peripheral IV, right femoral central line placed 04/14 Doppler US B/l Upper and lower EXT negative for DVT on 03/19 Palliative care is following Critical care time 32 minutes, exclusive of separately billed procedures.
[2018-04-21] MEDS: Oral Hygiene Kit OROPHARYNG SCH ×4 (00:35→17:20)
[2018-04-21] MEDS: Insulin NovoLIN Regular Correctional Sugar Inj SQ SCH ×6 (00:35→20:16)
[2018-04-21] MEDS: Hypromellose 0.3% Opth Gel 10 GM Bottle EACH EYE SCH ×3 (02:51→18:50)
[2018-04-21] MEDS: EPOPROSTENOL NEB SCH ×3 (03:05→18:49)
[2018-04-21] MEDS: SODIUM CHLOR NEB SCH ×3 (03:05→18:49)
[2018-04-21] MEDS: CISATRACURIUM IV.CONT PRN ×4 (03:49→21:48)
[2018-04-21] MEDS: SODIUM CHLOR 0.9% IV.CONT PRN ×4 (03:49→21:48)
[2018-04-21 05:08] LABS: ABG Base Excess 3.5 mmol/L (-2-2); ABG PCO2 43 mmHg (38-42); ABG PO2 99 mmHG (61-120)
[2018-04-21 05:43] LABS: Baso % (Auto) 0.4 % (0.0-2.0); Eos % (Auto) 0.4 % (0.0-4.0); Hematocrit 22.5 % (35.0-46.0); Hemoglobin 7.1 gm/dL (11.6-15.3); Lymph % (Auto) 9.5 % (9.0-44.0); Mean Corpuscular HGB Conc 31.5 % (32.0-36.0); Mean Corpuscular Hemoglobin 26.6 pg (27.0-34.0); Mean Corpuscular Volume 84.2 fL (80.0-100.0); Mono # (Auto) 0.6 th/mm3 (0.0-0.9); Mono % (Auto) 6.3 % (0.0-8.0); Neut # (Auto) 8.4 th/mm3 (1.8-7.7); Neut % (Auto) 83.4 % (16.0-70.0); Platelet Count 169 th/mm3 (150-450); Red Blood Count 2.67 mil/mm3 (4.00-5.30); Red Cell Distribution Width 21.8 % (11.6-17.2); White Blood Count 10.1 th/mm3 (4.0-11.0)
[2018-04-21 05:44] LABS: Hematocrit 22.2 % (35.0-46.0); Mean Corpuscular HGB Conc 31.6 % (32.0-36.0); Mean Corpuscular Hemoglobin 26.3 pg (27.0-34.0); Mean Corpuscular Volume 83.1 fL (80.0-100.0); Mean Platelet Volume 10.1 fL (7.0-11.0); Platelet Count 169 th/mm3 (150-450); Red Blood Count 2.68 mil/mm3 (4.00-5.30); Red Cell Distribution Width 22.3 % (11.6-17.2)
[2018-04-21] MEDS: Ceftazidime/Avibactam Inj 2.5 GM in Sodium Chlor 0.9% Inj 50 ML IV.SIG SCH ×2 (06:00→14:10)
[2018-04-21 06:01] LABS: Calcium 9.8 mg/dL (8.5-10.1); Carbon Dioxide 28.4 meq/L (21.0-32.0); Potassium 4.2 meq/L (3.5-5.1)
[2018-04-21] MEDS: Midazolam 50 MG/50 ML Inj 50 MG/50 ML BAG IV.CONT PRN ×4 (06:01→21:49)
[2018-04-21] MEDS: QUEtiapine 25 MG Tablet PO SCH ×3 (06:01→22:41)
[2018-04-21] MEDS: fentaNYL 10 mcg/mL Premix Drip 2,500 MCG/250 ML BAG IV.SIG PRN ×2 (07:21→17:26)
[2018-04-21] MEDS: Insulin Detemir Inj 1,000 UNIT/10 ML Vial SQ SCH ×2 (09:01→20:17)
[2018-04-21] MEDS: Chlorhexidine 0.12% Oral Kit 15 ML UDC OROPHARYNG SCH ×2 (09:01→19:56)
[2018-04-21] MEDS: Lipase/Protease/Amylase 24/76/120 DR Capsule PO SCH ×3 (09:04→17:22)
[2018-04-21] MEDS: Famotidine 20 MG Tablet PO SCH ×2 (09:04→20:24)
[2018-04-21] MEDS: Heparin - SQ 10,000 UNITS/ML Vial SQ SCH ×2 (09:04→20:16)
[2018-04-21] MEDS: Senna/Docusate Sodium 8.6/50 MG Tablet PO SCH ×2 (09:04→20:16)
[2018-04-21] MEDS: amLODIPine 10 MG Tablet PO SCH (09:05)
[2018-04-21] MEDS: MethylPREDNISolone Sod Succinate Inj 40 MG/ML Vial IV.PUSH SCH (09:06)
[2018-04-21] MEDS ORDERED: Sodium Chloride 23.4% Inj 38.5 MEQ in Water for Inj, Sterile 1,000 ML IV.CONT SCH (10:00)
--- NOTE | 2018-04-21 10:03 | P.PNNP ---
Subjective Interval history: Remains intubated, on 60% FiO2. Paralyzed, sedated. Renal function is slightly worse. Excellent urine output. Positive fluid balance. <Myrtle Levi - Last Filed: 04/21/18 09:58> Physical Exam Vital signs: Vital Signs 04/20/18 10:00 04/20/18 12:00 04/20/18 12:59 Temperature 97.9 F Pulse Rate 66 64 Respiratory Rate 38 H 20 Blood Pressure 136/61 Pulse Oximetry 98 100 04/20/18 14:00 04/20/18 15:12 04/20/18 16:00 Temperature 98 F Pulse Rate 78 80 81 Respiratory Rate 20 31 H Blood Pressure 161/70 H Pulse Oximetry 97 97 04/20/18 16:30 04/20/18 17:00 04/20/18 17:30 Temperature Pulse Rate 78 79 64 Respiratory Rate 31 H 40 H 40 H Blood Pressure 166/70 H Pulse Oximetry 97 97 95 04/20/18 18:00 04/20/18 18:01 04/20/18 18:30 Temperature Pulse Rate 65 65 78 Respiratory Rate 47 H 40 H 37 H Blood Pressure 121/56 L Pulse Oximetry 96 96 97 04/20/18 19:00 04/20/18 19:01 04/20/18 19:30 Temperature Pulse Rate 73 75 71 Respiratory Rate 32 H 38 H 39 H Blood Pressure 164/70 H Pulse Oximetry 97 97 96 04/20/18 20:00 04/20/18 20:05 04/20/18 20:10 Temperature 98.1 F Pulse Rate 80 79 Respiratory Rate 40 H 21 20 Blood Pressure 165/72 H Pulse Oximetry 97 97 04/20/18 20:30 04/20/18 20:49 04/20/18 21:00 Temperature Pulse Rate 69 70 65 Respiratory Rate 42 H 20 43 H Blood Pressure Pulse Oximetry 98 99 04/20/18 21:01 04/20/18 21:30 04/20/18 22:00 Temperature Pulse Rate 65 68 70 Respiratory Rate 43 H 42 H 41 H Blood Pressure 120/57 L Pulse Oximetry 99 100 98 04/20/18 22:01 04/20/18 22:30 04/20/18 23:00 Temperature Pulse Rate 70 64 63 Respiratory Rate 50 H 43 H 47 H Blood Pressure 147/66 H Pulse Oximetry 97 98 98 04/20/18 23:01 04/20/18 23:30 04/21/18 00:00 Temperature 98.1 F Pulse Rate 63 68 64 Respiratory Rate 49 H 55 H 42 H Blood Pressure 129/61 120/58 L Pulse Oximetry 98 98 97 04/21/18 00:09 04/21/18 00:30 04/21/18 01:00 Temperature Pulse Rate 63 61 Respiratory Rate 20 37 H 41 H Blood Pressure 133/60 Pulse Oximetry 97 97 98 04/21/18 01:30 04/21/18 02:00 04/21/18 02:30 Temperature Pulse Rate 64 63 60 Respiratory Rate 42 H 42 H 41 H Blood Pressure 125/60 Pulse Oximetry 99 98 98 04/21/18 02:36 04/21/18 03:00 04/21/18 03:01 Temperature Pulse Rate 65 66 Respiratory Rate 20 42 H 45 H Blood Pressure 170/74 H Pulse Oximetry 98 99 99 04/21/18 03:16 04/21/18 03:30 04/21/18 04:00 Temperature 98.6 F Pulse Rate 63 69 67 Respiratory Rate 20 35 H 43 H Blood Pressure 168/71 H Pulse Oximetry 100 99 04/21/18 04:20 04/21/18 04:30 04/21/18 06:00 Temperature Pulse Rate 64 84 Respiratory Rate 20 40 H Blood Pressure Pulse Oximetry 98 96 04/21/18 07:54 04/21/18 07:55 Temperature Pulse Rate 79 Respiratory Rate 20 20 Blood Pressure Pulse Oximetry 94 L Intake & Output 04/20/18 04/21/18 04/21/18 18:59 06:59 18:59 Intake Total 2676 / 2676 934.1 / 934.1 Output Total 2350 / 2350 1450 / 1450 Balance -333.9 / -333.9 1226 / 1226 934.1 / 934.1 Weight 121 kg Intake: IV 1034.1 / 1034.1 1750 / 1750 934.1 / 934.1 Cordarone Inj 450 MG In D5W Inj 250 / 250 250 / 250 241 ML @ 1 MG/MIN 33.33 mls/hr IV.CONT TITRATE PRN Rx#: [id number] Nimbex Inj 200 MG In NS Inj 480 500 / 500 1000 / 1000 500 / 500 ML @ 1 MCG/KG/MIN 18.75 mls/hr IV.CONT TITRATE PRN Rx#: [id number] Versed Inj 50 mg In 50 ml @ 2 84.1 / 84.1 100 / 100 34.1 / 34.1 MG/HR 2 mls/hr IV.CONT TITRATE PRN Rx#:[id number] Avycaz Inj 2.5 GM In NS Inj 50 100 / 100 50 / 50 50 / 50 ML @ 25 mls/hr IV.SIG Q8H [facility] Rx#:[id number] fentaNYL 10 mcg/mL Premix Drip 250 / 250 250 / 250 2,500 mcg In 250 ml @ 50 MCG/HR 5 mls/hr IV.SIG TITRATE PRN Rx #:[id number] Flolan (30,000 ng/mL) Neb 37.5 100 / 100 100 / 100 100 / 100 ML In NS Inj 62.5 ML @ As Directed NEB Q8H [facility] Rx#: [id number] Oral 0 / 0 Tube Feeding 562 / 562 446 / 446 Tube Irrigant 120 / 120 180 / 180 Water Bolus Amount 300 / 300 300 / 300 Output: Urine Amount (Catheter) 2350 / 2350 1450 / 1450 Indwelling Urethral Catheter 2350 / 2350 1450 / 1450 Other: Date of Last Bowel Movement 04/17/18 04/21/18 - Constitutional no acute distress, morbidly obese - Routine HEENT Exam Head: Present: normocephalic Eye: Present: periorbital swelling - Routine Neck Exam Present: supple, full ROM - Routine Respiratory Exam Present: patient mechanically ventilated, CTA bilaterally - Routine Cardiovascular Exam Present: RRR, S1, S2. Absent: murmur - Routine Abdominal Exam Present: soft, normoactive bowel sounds - Routine Extremities Exam Present: edema, pulses intact, amputation - Routine Skin Exam Present: dry, warm Comments: sacral pressure ulcer (stage II), DTI in center. - Routine Neurological Exam paralyzed, unable to assess - Detailed Neurological Exam: Coma Scale Eye Opening: None Verbal Response: None Motor Response: None Gianni Coma Scale Total: 3 - Routine Psychiatric Exam Present: unable to assess - Urinary Catheter Management Indwelling Urethral Catheter Cath placed during this visit: yes Urethral indwelling: Yes Reason for continuing: Hourly intake/output Insertion date: 03/18/18 Insertion time: 21:00 <Gurmeet,Myrtle B. - Last Filed: 04/21/18 09:58> Vital signs: Vital Signs 04/20/18 12:00 04/20/18 12:59 04/20/18 14:00 Temperature 97.9 F Pulse Rate 64 78 Respiratory Rate 38 H 20 Blood Pressure 136/61 Pulse Oximetry 98 100 04/20/18 15:12 04/20/18 16:00 04/20/18 16:30 Temperature 98 F Pulse Rate 80 81 78 Respiratory Rate 20 31 H 31 H Blood Pressure 161/70 H Pulse Oximetry 97 97 97 04/20/18 17:00 04/20/18 17:30 04/20/18 18:00 Temperature Pulse Rate 79 64 65 Respiratory Rate 40 H 40 H 47 H Blood Pressure 166/70 H Pulse Oximetry 97 95 96 04/20/18 18:01 04/20/18 18:30 04/20/18 19:00 Temperature Pulse Rate 65 78 73 Respiratory Rate 40 H 37 H 32 H Blood Pressure 121/56 L Pulse Oximetry 96 97 97 04/20/18 19:01 04/20/18 19:30 04/20/18 20:00 Temperature 98.1 F Pulse Rate 75 71 80 Respiratory Rate 38 H 39 H 40 H Blood Pressure 164/70 H 165/72 H Pulse Oximetry 97 96 97 04/20/18 20:05 04/20/18 20:10 04/20/18 20:30 Temperature Pulse Rate 79 69 Respiratory Rate 21 20 42 H Blood Pressure Pulse Oximetry 97 98 04/20/18 20:49 04/20/18 21:00 04/20/18 21:01 Temperature Pulse Rate 70 65 65 Respiratory Rate 20 43 H 43 H Blood Pressure 120/57 L Pulse Oximetry 99 99 04/20/18 21:30 04/20/18 22:00 04/20/18 22:01 Temperature Pulse Rate 68 70 70 Respiratory Rate 42 H 41 H 50 H Blood Pressure 147/66 H Pulse Oximetry 100 98 97 04/20/18 22:30 04/20/18 23:00 04/20/18 23:01 Temperature Pulse Rate 64 63 63 Respiratory Rate 43 H 47 H 49 H Blood Pressure 129/61 Pulse Oximetry 98 98 98 04/20/18 23:30 04/21/18 00:00 04/21/18 00:09 Temperature 98.1 F Pulse Rate 68 64 Respiratory Rate 55 H 42 H 20 Blood Pressure 120/58 L Pulse Oximetry 98 97 97 04/21/18 00:30 04/21/18 01:00 04/21/18 01:30 Temperature Pulse Rate 63 61 64 Respiratory Rate 37 H 41 H 42 H Blood Pressure 133/60 Pulse Oximetry 97 98 99 04/21/18 02:00 04/21/18 02:30 04/21/18 02:36 Temperature Pulse Rate 63 60 Respiratory Rate 42 H 41 H 20 Blood Pressure 125/60 Pulse Oximetry 98 98 98 04/21/18 03:00 04/21/18 03:01 04/21/18 03:16 Temperature Pulse Rate 65 66 63 Respiratory Rate 42 H 45 H 20 Blood Pressure 170/74 H Pulse Oximetry 99 99 04/21/18 03:30 04/21/18 04:00 04/21/18 04:20 Temperature 98.6 F Pulse Rate 69 67 Respiratory Rate 35 H 43 H 20 Blood Pressure 168/71 H Pulse Oximetry 100 99 98 04/21/18 04:30 04/21/18 06:00 04/21/18 07:54 Temperature Pulse Rate 64 84 79 Respiratory Rate 40 H 20 Blood Pressure Pulse Oximetry 96 04/21/18 07:55 04/21/18 08:00 04/21/18 10:00 Temperature 97.8 F Pulse Rate 81 84 Respiratory Rate 20 27 H Blood Pressure 181/76 H Pulse Oximetry 94 L 94 L Intake & Output 04/20/18 04/21/18 04/21/18 18:59 06:59 18:59 Intake Total 2015. 2676 / 2676 934.1 / 934.1 Output Total 2350 / 2350 1450 / 1450 Balance -333.9 / -333.9 1226 / 1226 934.1 / 934.1 Weight 121 kg Intake: IV 1034.1 / 1034.1 1750 / 1750 934.1 / 934.1 Cordarone Inj 450 MG In D5W Inj 250 / 250 250 / 250 241 ML @ 1 MG/MIN 33.33 mls/hr IV.CONT TITRATE PRN Rx#: [id number] Nimbex Inj 200 MG In NS Inj 480 500 / 500 1000 / 1000 500 / 500 ML @ 1 MCG/KG/MIN 18.75 mls/hr IV.CONT TITRATE PRN Rx#: [id number] Versed Inj 50 mg In 50 ml @ 2 84.1 / 84.1 100 / 100 34.1 / 34.1 MG/HR 2 mls/hr IV.CONT TITRATE PRN Rx#:[id number] Avycaz Inj 2.5 GM In NS Inj 50 100 / 100 50 / 50 50 / 50 ML @ 25 mls/hr IV.SIG Q8H [facility] Rx#:[id number] fentaNYL 10 mcg/mL Premix Drip 250 / 250 250 / 250 2,500 mcg In 250 ml @ 50 MCG/HR 5 mls/hr IV.SIG TITRATE PRN Rx #:[id number] Flolan (30,000 ng/mL) Neb 37.5 100 / 100 100 / 100 100 / 100 ML In NS Inj 62.5 ML @ As Directed NEB Q8H [facility] Rx#: [id number] Oral 0 / 0 Tube Feeding 562 / 562 446 / 446 Tube Irrigant 120 / 120 180 / 180 Water Bolus Amount 300 / 300 300 / 300 Output: Urine Amount (Catheter) 2350 / 2350 1450 / 1450 Indwelling Urethral Catheter 2350 / 2350 1450 / 1450 Other: Date of Last Bowel Movement 04/17/18 04/21/18 04/21/18 - Urinary Catheter Management Indwelling Urethral Catheter Cath placed during this visit: no <Alverto Fraser - Last Filed: 04/21/18 11:18> Assessment and Plan - Assessment (1) Acute renal failure superimposed on stage 3 chronic kidney disease Code(s): N17.9 - Acute kidney failure, unspecified; N18.3 - Chronic kidney disease, stage 3 (moderate) Status: Acute Plan: Her previous baseline creatinine was 1.6-2, GFR 44. YOU most likely due to cardiac arrest and decreased renal perfusion. Her renal function had improved, slightly worse today. Hypernatremic, change diuretics to Diuril 500 mg IV BID. Give free water 300 Q6H with tube feeding. Goal negative fluid balance. She is non oliguric and responding to diuretics. Avoid nephrotoxic agents,dose appropriate to renal status. Minimize non essential medications. D/W her family. They do not wish to begin dialysis if needed. Her son makes the medical decisions. (2) Acute respiratory failure with hypoxemia Code(s): J96.01 - Acute respiratory failure with hypoxia Status: Acute Plan: ARDS. High oxygen requirement. Management per critical care service. Needs better oxygenation prior to trach placement. (3) Diabetes mellitus type 2 in obese Code(s): E11.69 - Type 2 diabetes mellitus with other specified complication; E66.9 - Obesity, unspecified Status: Chronic Plan: Maintain glucose 140-180mg/dL while hospitalized. Use insulin if needed. (4) Hypertension Code(s): I10 - Essential (primary) hypertension Status: Chronic Plan: Monitor BP. Continue medications as ordered. (5) HCAP (healthcare-associated pneumonia) Code(s): J18.9 - Pneumonia, unspecified organism Status: Acute Plan: ID is following, managing antibiotics. Currently on Avycaz and Colistin neb. s/p bronch with cultures reviewed. Klebsiella PNA. (6) Diastolic heart failure Code(s): I50.30 - Unspecified diastolic (congestive) heart failure Status: Acute Plan: Monitor fluid status. Continue diuresis. She had an echo previous admission, EF 50%. <Myrtle Levi - Last Filed: 04/21/18 09:58> - Assessment (1) Acute renal failure superimposed on stage 3 chronic kidney disease Code(s): N17.9 - Acute kidney failure, unspecified; N18.3 - Chronic kidney disease, stage 3 (moderate) Status: Acute (2) Acute respiratory failure with hypoxemia Code(s): J96.01 - Acute respiratory failure with hypoxia Status: Acute (3) Diabetes mellitus type 2 in obese Code(s): E11.69 - Type 2 diabetes mellitus with other specified complication; E66.9 - Obesity, unspecified Status: Chronic (4) Hypertension Code(s): I10 - Essential (primary) hypertension Status: Chronic (5) HCAP (healthcare-associated pneumonia) Code(s): J18.9 - Pneumonia, unspecified organism Status: Acute (6) Diastolic heart failure Code(s): I50.30 - Unspecified diastolic (congestive) heart failure Status: Acute - Attending Attestation patient was seen and examined. Agree with above assessment and plan. Changed the diuretic to Diuril. <Alverto Fraser - Last Filed: 04/21/18 11:18>
[2018-04-21] MEDS: Sod Chloride 0.9% Inj 1,000 ML OTHER SCH (11:07)
--- NOTE | 2018-04-21 13:11 | P.PNWCN ---
Wound Care Nurse Consult Description: Wound consult ordered by for wound management Communicated with: Bora ADLER, Recommendation: 1. Reposition patient every 2 hours or as tolerated for comfort and offloading. 2. Cleanse intra gluteal cleft,sacrum and surrounding area with remedy soft cloth barrier wipes. 3. Apply thick layer of Calazime cream to open areas leave open to air. 4. Reframe from placing patient on cotton underpad please use only UltraSorb moisture wicking underpads. Additional information: Patient was seen today by flex o writer operator Bora RN, Respiratory staff for wound management.Patient currently sedated on vent.Patient reposition to left side with 3 person assistance.Senior Informatica Developer was able to visualize sacral,intra gluteal cleft and surrounding tissue .sacral region cleansed with remedy soft cloth barrier wipes and pericare performed frances shield intact with loose stool leaking around tubing.Patient noted to have a mixed etiology of partial thickness/moisture/friction DTI measuring ~8.0cm x ~12cm .DTI located to sacrum measures ~3.0cm x ~4.0cm intact black/purple tissue.DTI periwound non blanchable soft intact leather eschar.Moisture/friction denuded areas has red non granular wound base with scant sanguinous exudate noted . Wound edges are well defined irregular in shape. Total wound margin have appearance of a butterfly shape possibly indicating a Navneet ulcer.Wound cleansed with normals ankit pat dry thick layer of Calazime cream applied to effected areas and patient was offloaded to right side. Wound/Pressure Injury - Patient Status Premedicated for Pain Prior to Dressing Change: No - Wound Right Forearm Wound Staging: DTI Wound Assessment: Ongoing Wound Type: Skin Tear Is This a Chronic Wound: No Requested from Provider a Wound Care Consult: No (Kalen ADLER,[facility] seen 04/21) Length: 8 Width: 12 Wound Bed Appearance: Necrotic, Peeling Skin, Red Surrounding Tissue Temperature: Warm Drainage Description: Sanguinous Drainage Amount: Scant Drainage Odor: No Odor Dressing Status: Changed, Open to Air Topical: Calazime Incision - Patient Status Premedicated for Pain Prior to Dressing Change: No - Incision Left Calf Incision Type: Incision Right Calf Incision Type: Incision
--- NOTE | 2018-04-21 17:54 | P.PNPAL ---
Reason for Visit Reason for visit: a. To assist with evaluation and management of symptoms including: dyspnea, pain. b. To assist medical decision maker(s) with: better understanding of current medical conditions; weighing benefits/burdens of medical treatment options; making medical treatment decisions. Subjective Subjective/Interval History: Call from nursing staff to report family that was visiting on 04/20/18 were discussing transition to comfort and withdrawal of life support. Nurse is uncertain if the 2 men were sons or brothers. I advised in prior conversations children have desired aggressive care including FULL CODE. Left message for Rocael garrison to request family meeting to revisit goals of medical treatment. Patient remains critically ill on [facility] ventilation, PEEP 15 and FiO2 60%. She is requiring paralytic for vent asynchrony despite Versed and Fentanyl (250mcg) drips. No signs of pain given high level of sedation and paralytic. Clinical data: * Afebrile. HR 60-80s, RR 20, oxygen saturation 98% * WBC 10.1, hemoglobin 7.1, hematocrit 22.5, platelets 169, neutrophils 83.4% * Sodium 147, potassium 4.2, chloride 106, carbon dioxide 28.4, BUN 123, creatinine 1.46, GFR 45, calcium 9.8 * 04/14/18 - sputum culture again + Klebsiella pneumoniae ESBL positive MDRO * 04/20/18 - Chest xray -unchanged diffuse pulmonary infiltrates. . Family/Friend Interactions: Left message for Rocael garrison to request family meeting to reevaluate goals of medical treatment, awaiting return call. Advance Directives Living Will: Never completed Health Care Surrogate: Never completed Durable Power of Medical Social Consultant: Never completed Health Care Surrogate Name and Number: family David spokesperson [phone] Documented care wishes:: No written advanced directives. Significant change in goals:: FULL CODE. Family goals have remained aggressive with desire to keep paitent FULL CODE and proceed with trach and PEG when medically stable. Patient has remained too unstable for such procedures. Objective Vital Signs: Vital Signs 04/20/18 18:00 04/20/18 18:01 04/20/18 18:30 Temperature Pulse Rate 65 65 78 Respiratory Rate 47 H 40 H 37 H Blood Pressure 121/56 L Pulse Oximetry 96 96 97 04/20/18 19:00 04/20/18 19:01 04/20/18 19:30 Temperature Pulse Rate 73 75 71 Respiratory Rate 32 H 38 H 39 H Blood Pressure 164/70 H Pulse Oximetry 97 97 96 04/20/18 20:00 04/20/18 20:05 04/20/18 20:10 Temperature 98.1 F Pulse Rate 80 79 Respiratory Rate 40 H 21 20 Blood Pressure 165/72 H Pulse Oximetry 97 97 04/20/18 20:30 04/20/18 20:49 04/20/18 21:00 Temperature Pulse Rate 69 70 65 Respiratory Rate 42 H 20 43 H Blood Pressure Pulse Oximetry 98 99 04/20/18 21:01 04/20/18 21:30 04/20/18 22:00 Temperature Pulse Rate 65 68 70 Respiratory Rate 43 H 42 H 41 H Blood Pressure 120/57 L Pulse Oximetry 99 100 98 04/20/18 22:01 04/20/18 22:30 04/20/18 23:00 Temperature Pulse Rate 70 64 63 Respiratory Rate 50 H 43 H 47 H Blood Pressure 147/66 H Pulse Oximetry 97 98 98 04/20/18 23:01 04/20/18 23:30 04/21/18 00:00 Temperature 98.1 F Pulse Rate 63 68 64 Respiratory Rate 49 H 55 H 42 H Blood Pressure 129/61 120/58 L Pulse Oximetry 98 98 97 04/21/18 00:09 04/21/18 00:30 04/21/18 01:00 Temperature Pulse Rate 63 61 Respiratory Rate 20 37 H 41 H Blood Pressure 133/60 Pulse Oximetry 97 97 98 04/21/18 01:30 04/21/18 02:00 04/21/18 02:30 Temperature Pulse Rate 64 63 60 Respiratory Rate 42 H 42 H 41 H Blood Pressure 125/60 Pulse Oximetry 99 98 98 04/21/18 02:36 04/21/18 03:00 04/21/18 03:01 Temperature Pulse Rate 65 66 Respiratory Rate 20 42 H 45 H Blood Pressure 170/74 H Pulse Oximetry 98 99 99 04/21/18 03:16 04/21/18 03:30 04/21/18 04:00 Temperature 98.6 F Pulse Rate 63 69 67 Respiratory Rate 20 35 H 43 H Blood Pressure 168/71 H Pulse Oximetry 100 99 04/21/18 04:20 04/21/18 04:30 04/21/18 06:00 Temperature Pulse Rate 64 84 Respiratory Rate 20 40 H Blood Pressure Pulse Oximetry 98 96 04/21/18 07:54 04/21/18 07:55 04/21/18 08:00 Temperature 97.8 F Pulse Rate 79 81 Respiratory Rate 20 20 27 H Blood Pressure 181/76 H Pulse Oximetry 94 L 94 L 04/21/18 10:00 04/21/18 11:37 04/21/18 12:00 Temperature 97.6 F Pulse Rate 84 69 Respiratory Rate 21 20 Blood Pressure 146/67 H Pulse Oximetry 98 97 04/21/18 14:00 04/21/18 15:15 04/21/18 16:00 Temperature 97.6 F Pulse Rate 84 67 Respiratory Rate 20 20 Blood Pressure 156/68 H Pulse Oximetry 96 98 Intake & Output 04/20/18 04/21/18 04/21/18 18:59 06:59 18:59 Intake Total 2015.2015. 2676 / 2676 208.1 / 2083.1 Output Total 2350 / 2350 1450 / 1450 Balance -333.9 / -333.9 1226 / 1226 208.1 / 2083.1 Weight 121 kg Intake: IV 1034.1 / 1034.1 1750 / 1750 2083.1 / 2083.1 Cordarone Inj 450 MG In D5W Inj 250 / 250 250 / 250 250 / 250 241 ML @ 1 MG/MIN 33.33 mls/hr IV.CONT TITRATE PRN Rx#: [id number] Nimbex Inj 200 MG In NS Inj 480 500 / 500 1000 / 1000 1000 / 1000 ML @ 1 MCG/KG/MIN 18.75 mls/hr IV.CONT TITRATE PRN Rx#: [id number] Versed Inj 50 mg In 50 ml @ 2 84.1 / 84.1 100 / 100 84.1 / 84.1 MG/HR 2 mls/hr IV.CONT TITRATE PRN Rx#:[id number] Avycaz Inj 2.5 GM In NS Inj 50 100 / 100 50 / 50 150 / 150 ML @ 25 mls/hr IV.SIG Q8H JACKI Rx#:[id number] fentaNYL 10 mcg/mL Premix Drip 250 / 250 500 / 500 2,500 mcg In 250 ml @ 50 MCG/HR 5 mls/hr IV.SIG TITRATE PRN Rx #:[id number] Flolan (30,000 ng/mL) Neb 37.5 100 / 100 100 / 100 100 / 100 ML In NS Inj 62.5 ML @ As Directed NEB Q8H [facility] Rx#: [id number] Oral 0 / 0 Tube Feeding 562 / 562 446 / 446 Tube Irrigant 120 / 120 180 / 180 Water Bolus Amount 300 / 300 300 / 300 Output: Urine Amount (Catheter) 2350 / 2350 1450 / 1450 Indwelling Urethral Catheter 2350 / 2350 1450 / 1450 Other: Date of Last Bowel Movement 04/17/18 04/21/18 04/21/18 Physical Exam: CONSTITUTIONAL/GENERAL: This is an obese, critically ill patient intubated, mechanically ventilated, sedated, and an MICU bed. TUBES/LINES/DRAINS: ETT, OG, PIV, soft wrist restraints, [place], rectal tube, SCDs SKIN: No jaundice, rashes, or lesions. No wounds seen anteriorly. Skin temperature appropriate. Not diaphoretic. EYES: eyes closed. ENT: Unable to assess hearing. Nose without bleeding or purulent drainage. CARDIOVASCULAR: Frequent irregular beats. RESPIRATORY/CHEST: Diminished bibasilar, scattered rhonchi bilaterally. GASTROINTESTINAL: Abdomen obese, soft, non-tender, nondistended OG in place. GENITOURINARY: Without palpable bladder distension. [place] catheter in place. 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 Legs + edema bilateral lower extremities. NEUROLOGICAL:Sedated. PSYCHIATRIC: Sedated. Diagnostic Tests Laboratory: Laboratory Results - last 72 hr 04/04/18 04/18/18 04/18/18 10:58 20:00 21:00 WBC RBC Hgb Hct MCV MCH MCHC RDW Plt Count MPV Neut % (Auto) Lymph % (Auto) [place] % (Auto) Eos % (Auto) Baso % (Auto) Neut # (Auto) Lymph # (Auto) [place] # (Auto) Eos # (Auto) Baso # (Auto) WBC Differential Differential Comment Puncture Site Patient Temperature O2 Saturation ABG pH ABG pCO2 ABG pO2 ABG HCO3 ABG O2 Content ABG Base Excess ABG Methemoglobin Trevor Test Hemoglobin Carboxyhemoglobin O2 Delivery Device Vent Setting Inspired O2 Critical Value Sodium Potassium 4.2 D Chloride Carbon Dioxide Anion Gap BUN Creatinine Estimated GFR POC Glucose 340 H Random Glucose Calcium Phosphorus 4.5 D Magnesium 2.1 Total Bilirubin AST ALT Alkaline Phosphatase Ammonia Total Protein Albumin Antibody Identification Non-Specific Agglutinin 04/18/18 04/19/18 04/19/18 23:37 03:07 05:14 WBC 9.5 RBC 3.01 L Hgb 8.1 L Hct 25.4 L MCV 84.2 MCH 26.8 L MCHC 31.8 L RDW 21.5 H Plt Count 155 MPV 10.3 Neut % (Auto) 86.3 H Lymph % (Auto) 7.9 L [place] % (Auto) 5.0 Eos % (Auto) 0.5 Baso % (Auto) 0.3 Neut # (Auto) 8.2 H Lymph # (Auto) 0.7 L [place] # (Auto) 0.5 Eos # (Auto) 0.0 Baso # (Auto) 0.0 WBC Differential . Differential Comment Auto diff final Puncture Site Patient Temperature O2 Saturation ABG pH ABG pCO2 ABG pO2 ABG HCO3 ABG O2 Content ABG Base Excess ABG Methemoglobin Trevor Test Hemoglobin Carboxyhemoglobin O2 Delivery Device Vent Setting Inspired O2 Critical Value Sodium Potassium Chloride Carbon Dioxide Anion Gap BUN Creatinine Estimated GFR POC Glucose 287 H 268 H Random Glucose Calcium Phosphorus Magnesium Total Bilirubin AST ALT Alkaline Phosphatase Ammonia Total Protein Albumin Antibody Identification 04/19/18 04/19/18 04/19/18 05:14 05:15 07:38 WBC RBC Hgb Hct MCV MCH MCHC RDW Plt Count MPV Neut % (Auto) Lymph % (Auto) [place] % (Auto) Eos % (Auto) Baso % (Auto) Neut # (Auto) Lymph # (Auto) [place] # (Auto) Eos # (Auto) Baso # (Auto) WBC Differential Differential Comment Puncture Site Patient Temperature O2 Saturation ABG pH ABG pCO2 ABG pO2 ABG HCO3 ABG O2 Content ABG Base Excess ABG Methemoglobin Trevor Test Hemoglobin Carboxyhemoglobin O2 Delivery Device Vent Setting Inspired O2 Critical Value Sodium 147 H Potassium 3.4 L D Chloride 108 H Carbon Dioxide 26.2 Anion Gap 13 BUN 116 H Creatinine 1.24 H Estimated GFR 55 L POC Glucose 213 H Random Glucose 209 H Calcium 8.9 D Phosphorus 3.7 Magnesium 1.9 Total Bilirubin 0.5 AST 15 ALT 27 Alkaline Phosphatase 81 Ammonia 16 Total Protein 6.6 Albumin 2.0 L Antibody Identification 08/19/18 08/19/18 08/19/18 11:16 16:22 20:56 WBC RBC Hgb Hct MCV MCH MCHC RDW Plt Count MPV Neut % (Auto) Lymph % (Auto) [place] % (Auto) Eos % (Auto) Baso % (Auto) Neut # (Auto) Lymph # (Auto) [place] # (Auto) Eos # (Auto) Baso # (Auto) WBC Differential Differential Comment Puncture Site Patient Temperature O2 Saturation ABG pH ABG pCO2 ABG pO2 ABG HCO3 ABG O2 Content ABG Base Excess ABG Methemoglobin Trevor Test Hemoglobin Carboxyhemoglobin O2 Delivery Device Vent Setting Inspired O2 Critical Value Sodium Potassium Chloride Carbon Dioxide Anion Gap BUN Creatinine Estimated GFR POC Glucose 252 H 242 H 259 H Random Glucose Calcium Phosphorus Magnesium Total Bilirubin AST ALT Alkaline Phosphatase Ammonia Total Protein Albumin Antibody Identification 04/19/18 04/19/18 04/20/18 22:19 23:45 04:08 WBC RBC Hgb Hct MCV MCH MCHC RDW Plt Count MPV Neut % (Auto) Lymph % (Auto) [place] % (Auto) Eos % (Auto) Baso % (Auto) Neut # (Auto) Lymph # (Auto) [place] # (Auto) Eos # (Auto) Baso # (Auto) WBC Differential Differential Comment Puncture Site Patient Temperature O2 Saturation ABG pH ABG pCO2 ABG pO2 ABG HCO3 ABG O2 Content ABG Base Excess ABG Methemoglobin Trevor Test Hemoglobin Carboxyhemoglobin O2 Delivery Device Vent Setting Inspired O2 Critical Value Sodium Potassium 4.2 D Chloride Carbon Dioxide Anion Gap BUN Creatinine Estimated GFR POC Glucose 274 H 234 H Random Glucose Calcium Phosphorus 3.2 Magnesium 2.1 Total Bilirubin AST ALT Alkaline Phosphatase Ammonia Total Protein Albumin Antibody Identification 04/20/18 04/20/18 04/20/18 05:15 05:15 08:42 WBC 10.6 RBC 2.89 L Hgb 7.6 L Hct 24.4 L MCV 84.4 MCH 26.3 L MCHC 31.2 L RDW 21.3 H Plt Count 169 MPV 10.6 Neut % (Auto) 85.5 H Lymph % (Auto) 7.6 L [place] % (Auto) 5.7 Eos % (Auto) 0.8 Baso % (Auto) 0.4 Neut # (Auto) 9.0 H Lymph # (Auto) 0.8 L [place] # (Auto) 0.6 Eos # (Auto) 0.1 Baso # (Auto) 0.0 WBC Differential . Differential Comment Auto diff final Puncture Site Patient Temperature O2 Saturation ABG pH ABG pCO2 ABG pO2 ABG HCO3 ABG O2 Content ABG Base Excess ABG Methemoglobin Trevor Test Hemoglobin Carboxyhemoglobin O2 Delivery Device Vent Setting Inspired O2 Critical Value Sodium 145 Potassium 4.1 Chloride 106 Carbon Dioxide 27.1 Anion Gap 12 BUN 117 H Creatinine 1.33 H Estimated GFR 50 L POC Glucose 226 H Random Glucose 230 H Calcium 9.4 Phosphorus 3.4 Magnesium 2.2 Total Bilirubin 0.4 AST 22 ALT 26 Alkaline Phosphatase 82 Ammonia Total Protein 6.9 Albumin 2.0 L Antibody Identification 04/20/18 04/20/18 04/20/18 12:20 15:46 19:44 WBC RBC Hgb Hct MCV MCH MCHC RDW Plt Count MPV Neut % (Auto) Lymph % (Auto) [place] % (Auto) Eos % (Auto) Baso % (Auto) Neut # (Auto) Lymph # (Auto) [place] # (Auto) Eos # (Auto) Baso # (Auto) WBC Differential Differential Comment Puncture Site Patient Temperature O2 Saturation ABG pH ABG pCO2 ABG pO2 ABG HCO3 ABG O2 Content ABG Base Excess ABG Methemoglobin Trevor Test Hemoglobin Carboxyhemoglobin O2 Delivery Device Vent Setting Inspired O2 Critical Value Sodium Potassium Chloride Carbon Dioxide Anion Gap BUN Creatinine Estimated GFR POC Glucose 240 H 229 H 269 H Random Glucose Calcium Phosphorus Magnesium Total Bilirubin AST ALT Alkaline Phosphatase Ammonia Total Protein Albumin Antibody Identification 04/21/18 04/21/18 04/21/18 00:12 04:00 04:00 WBC 10.0 RBC 2.68 L Hgb 7.0 L Hct 22.2 L MCV 83.1 MCH 26.3 L MCHC 31.6 L RDW 22.3 H Plt Count 169 MPV 10.1 Neut % (Auto) Lymph % (Auto) [place] % (Auto) Eos % (Auto) Baso % (Auto) Neut # (Auto) Lymph # (Auto) [place] # (Auto) Eos # (Auto) Baso # (Auto) WBC Differential Differential Comment Puncture Site Patient Temperature O2 Saturation ABG pH ABG pCO2 ABG pO2 ABG HCO3 ABG O2 Content ABG Base Excess ABG Methemoglobin Trevor Test Hemoglobin Carboxyhemoglobin O2 Delivery Device Vent Setting Inspired O2 Critical Value Sodium 147 H Potassium 4.2 Chloride 106 Carbon Dioxide 28.4 Anion Gap 13 BUN 123 H Creatinine 1.46 H Estimated GFR 45 L POC Glucose 269 H Random Glucose 210 H Calcium 9.8 Phosphorus Magnesium Total Bilirubin AST ALT Alkaline Phosphatase Ammonia Total Protein Albumin Antibody Identification 04/21/18 04/21/18 04/21/18 04:00 04:11 04:50 WBC 10.1 RBC 2.67 L Hgb 7.1 L Hct 22.5 L MCV 84.2 MCH 26.6 L MCHC 31.5 L RDW 21.8 H Plt Count 169 MPV 10.0 Neut % (Auto) 83.4 H Lymph % (Auto) 9.5 [place] % (Auto) 6.3 Eos % (Auto) 0.4 Baso % (Auto) 0.4 Neut # (Auto) 8.4 H Lymph # (Auto) 1.0 [place] # (Auto) 0.6 Eos # (Auto) 0.0 Baso # (Auto) 0.0 WBC Differential . Differential Comment Auto diff final Puncture Site Right radial Patient Temperature 98.6 O2 Saturation 94 ABG pH 7.43 H ABG pCO2 43 H ABG pO2 99 ABG HCO3 28 H ABG O2 Content 12.7 ABG Base Excess 3.5 H ABG Methemoglobin 1.7 Trevor Test Present Hemoglobin 9.5 L Carboxyhemoglobin 2.0 O2 Delivery Device Vent Vent Setting Prvc/ac Inspired O2 60 Critical Value No Sodium Potassium Chloride Carbon Dioxide Anion Gap BUN Creatinine Estimated GFR POC Glucose 232 H Random Glucose Calcium Phosphorus Magnesium Total Bilirubin AST ALT Alkaline Phosphatase Ammonia Total Protein Albumin Antibody Identification 04/21/18 04/21/18 04/21/18 07:23 11:59 16:16 WBC RBC Hgb Hct MCV MCH MCHC RDW Plt Count MPV Neut % (Auto) Lymph % (Auto) [place] % (Auto) Eos % (Auto) Baso % (Auto) Neut # (Auto) Lymph # (Auto) [place] # (Auto) Eos # (Auto) Baso # (Auto) WBC Differential Differential Comment Puncture Site Patient Temperature O2 Saturation ABG pH ABG pCO2 ABG pO2 ABG HCO3 ABG O2 Content ABG Base Excess ABG Methemoglobin Trevor Test Hemoglobin Carboxyhemoglobin O2 Delivery Device Vent Setting Inspired O2 Critical Value Sodium Potassium Chloride Carbon Dioxide Anion Gap BUN Creatinine Estimated GFR POC Glucose 215 H 227 H 247 H Random Glucose Calcium Phosphorus Magnesium Total Bilirubin AST ALT Alkaline Phosphatase Ammonia Total Protein Albumin Antibody Identification 04/21/18 17:19 WBC RBC Hgb Hct MCV MCH MCHC RDW Plt Count MPV Neut % (Auto) Lymph % (Auto) [place] % (Auto) Eos % (Auto) Baso % (Auto) Neut # (Auto) Lymph # (Auto) [place] # (Auto) Eos # (Auto) Baso # (Auto) WBC Differential Differential Comment Puncture Site Patient Temperature O2 Saturation ABG pH ABG pCO2 ABG pO2 ABG HCO3 ABG O2 Content ABG Base Excess ABG Methemoglobin Trevor Test Hemoglobin Carboxyhemoglobin O2 Delivery Device Vent Setting Inspired O2 Critical Value Sodium Potassium Chloride Carbon Dioxide Anion Gap BUN Creatinine Estimated GFR POC Glucose 264 H Random Glucose Calcium Phosphorus Magnesium Total Bilirubin AST ALT Alkaline Phosphatase Ammonia Total Protein Albumin Antibody Identification Result Diagrams: 04/21/18 04:00 04/21/18 04:00 Microbiology: Microbiology 03/24/18 16:30 Fungal Smear - Final Bronchial Washings - Left Lower Lobe No fungal elements seen Fungal Culture - Final No growth in 4 weeks 03/24/18 16:30 Acid Fast Bacilli Smear - Final Bronchial Washings - Left Lower Lobe No acid fast bacilli seen Mycobacterial Culture - Preliminary No growth in 4 weeks 04/18/18 21:52 Gram Stain - Final Sputum - Endotracheal Sputum Culture - Final Heavy growth normal respiratory jennifer 04/19/18 05:40 Legionella Antigen - Final Urine - Catheterized Urine Presumptive negative for Legionella pneumophila serogroup 1 antigen in urine, suggesting no recent or recurrent infection. Infection due to Legionella cannot be ruled out since other serogroups and species may cause disease, antigen may not be present in urine in early infection, and the level of antigen present in the urine may be below the detection limit of the test. 03/18/18 05:40 Streptococcus pneumoniae Antigen (M - Final Urine - Catheterized Urine Presumptive negative for streptococcus pneumoniae antigen, suggesting no current or recent infection. Infection due to Streptococcus pneumoniae cannot be ruled out since the antigen present in the sample may be below the detection limit of the test. Imaging: Head CT 03/18/18 18:46 CONCLUSION: 1. Solitary 3 mm hyperdensity in the central [place] of uncertain significance. Differential considerations include a punctate calcification and acute hemorrhage. 2. No acute findings in the supratentorial brain. Head MRI 03/19/18 00:00 CONCLUSION: 1. No evidence of brainstem hemorrhage. 2. Small foci of encephalomalacia in the left occipital lobe and right cerebellum 3. No evidence of acute infarct, hemorrhage, mass or edema. 4. No evidence of enhancing intra-axial or extra-axial lesions. Venous Doppler Study 03/19/18 00:00 CONCLUSION: The study is negative for bilateral lower extremity deep venous thrombosis. Foot X-Ray 03/22/18 00:00 CONCLUSION: No acute bony destructive change. Previous amputations as above. Fairly marked soft tissue swelling of the forefoot. Abdomen X-Ray 03/26/18 00:00 CONCLUSION: Abdomen/Pelvis CT 03/28/18 00:00 CONCLUSION: 1. Minimal increase in the trace bilateral pleural effusions with compressive atelectasis in both bases. 2. Gallstones in a benign-appearing gallbladder 3. I don't see evidence for colitis. 4. I don't see inflammatory changes in the abdomen. Chest CT 03/28/18 00:00 CONCLUSION: 1. Biventricular cardiomegaly with coarse interstitial changes in both lungs. A component of this could be failure 2. Trace bilateral pleural effusions larger on the right.. These have decreased slightly in the interval. Foot MRI 03/28/18 00:00 CONCLUSION: 1. Difficult exam to interpret because of extensive soft tissue swelling. No obvious osteomyelitis. 2. Nuclear medicine tagged white cell study may help. Chest X-Ray 04/20/18 06:00 CONCLUSION: Unchanged diffuse pulmonary infiltrates. Procedures: * Right IJ central line * Intubated . Assessment and Plan - Disease Oriented Problem List (1) ARDS (adult respiratory distress syndrome) (2) Acute respiratory failure with hypoxemia (3) HCAP (healthcare-associated pneumonia) Comment: Multi drug resistant -- Klebsiella ESBL + (4) Diabetes mellitus type 2 in obese (5) Atrial fibrillation (6) Chronic kidney disease, stage III (moderate) (7) Hypertension (8) Hypoglycemia due to type 2 diabetes mellitus (9) Lactic acid acidosis (10) Super obesity (11) WISAM (obstructive sleep apnea) (12) Asthma (13) H/O osteomyelitis (14) Diastolic heart failure (15) Diabetes (16) Acute renal failure superimposed on stage 3 chronic kidney disease - Symptom Scale (1) Pain 0-10 Scale: Unable to quantify (2) Dyspnea 0-10 Scale: Unable to quantify (3) Encephalopathy 0-10 Scale: Unable to quantify Pertinent Non-Medical Issues: Psychosocial: Never . Supported by her son, Rocael. Has 4 children ( Rocael, Jose Juan, Manny and Shobha). Spiritual: Orthodox. Legal: Patient is not capacitated to make her own health care decisions, and at this point there is no reasonable probability that she will recover capacity to do so. . No written advanced directives. According to [place] statutes, health care proxy decision making falls to the majority of adult children, she has 4 children. Son Rocael reports he has always made decisions for patient. Jose Juan has opted out of decision making. Other children desire to participate but have wanted Rocael to be the spokesperson and communication hub. Ethical issues impacting care: None. Important Contacts: * Rocael Hanna, son: [phone] serving as family spokesperson * Shobha Hanna, daughter: [phone] * Jose Juan Hanna son (has opted out of decision making) * Manny Hanna, son: * Carolyn Durand, sister: [phone] . Prognosis: Patient shows no signs of significant improvement in spite of aggressive care. She continues to require high ventilatory support and paralytic to main vent synchrony. Overall prognosis is poor. It is unclear if there has been any permanent hypoxic cognitive changes from her initial code and/or subsequent hypoxic periods. . Code Status: Full Code Plan: * Decision making: Patient is not capacitated to make her own health care decisions, and at this point there is no reasonable probability that she will recover capacity to do so. . No written advanced directives. According to [place] statutes, health care proxy decision making falls to the majority of adult children, she has 4 children. Norman Cote reports he has always made decisions for patient. Son Jose Juan has opted out of decision making. Other children remain involved with Rocael being the communication hub. * FULL CODE - this was confirmed once again by Rocael garrison (04/16/18). * Goals of medical treatment: Family has been informed of patient's poor prognosis and high likelihood of ICU . Nevertheless, goals have remained aggressive with desire to keep patient FULL CODE and proceed with trach and PEG when medically stable. Patient has remained too unstable for such procedures. * 04/21/18 - left message for Rocael garrison to request family meeting to reevaluate goals of medical treatment. Awaiting return call. Symptoms * Dyspnea: Dyspnea was initially felt to be due to CHF but now appears in large part due to multi-drug resistant +EBSL Klebsiella pneumonia. Patient's pulmonary status does not seem to be improving in spite of aggressive care. Currently being managed with vent support and sedation with fentanyl and midazolam. No further recommendations at this time. * Pain: No clear pre-hospitalization pain syndromes. Patient likely painful from prolonged bedbound status; OT tube; OG tube; vascular lines; other catheters. Pain should be adequately controlled by the fentanyl drip. No further recommendations at this time. * Encephalopathy: Unclear to what extent this is reversible and a result of her infection or possibly permanent due to hypoxic injury. No further recommendations at this time. * Case discussed with nursing staff. * Palliative care will continue to assist with symptom management and to further clarify goals of medical treatment as the clinical course evolves. Attestation Attestation: To help prompt me to consider important information that might be impacting today's encounter and assessment, information from prior notes written by myself or my colleagues may have been "brought forward" into today's note. My signature on this note, however, is an attestation that I personally performed the exam, history, and/or decision-making noted today, and, unless otherwise indicated, the interactions with patient, family, and staff as well as the review of records all occurred today. I also attest that the listed assessment and stated plan reflect my best clinical judgment today based on the combination of historical information, prior notes, and today's exam/ interactions. When time spent is documented, it refers only to time spent today by the signer, or if indicated, combined time spent today by collaborating physician/nurse practitioner.
--- NOTE | 2018-04-21 17:54 | P.PNCC ---
Subjective Subjective Remarks/Hospital Course: 52-year-old female with past medical history of diabetes mellitus, hypertension, hyperlipidemia, atrial fibrillation on chronic anticoagulation with warfarin, chronic diastolic heart failure, asthma, WISAM, peripheral vascular disease, super morbid obesity. She has been at [facility] since 03/02/18. Abeba JACOBO was called due to respiratory distress. When they arrived as she was found to be in respiratory distress with sats in the 70s. She was communicating with them and reportedly said "leave me alone". She then had PEA arrest. She received CPR reportedly 10-15 minutes and received 2 doses of epinephrine. LMA was placed by EVAC. LMA was removed and she was intubated by Dr. Daly after receiving etomidate 20 mg IV and succinylcholine. She has demonstrated purposeful movements post intubation, and is now on a propofol drip. She was [place] [facility] [place] due to hypoglycemia, fall after isolated episode of diarrhea, hypoxia requiring HFNC. She has chronic interstitial changes on CXR. Reviewed records from [facility] which indicate she completed a 7 day course of Levaquin and has been on a prednisone taper. Current CXR shows bibasilar opacities. WBC is 16 ( previously 7.9). She has acute hypercapneic and hypoxemic respiratory failure. 03/19: Afebrile. Remains on 100% FiO2 PEEP of 12. Central has been placed for access due to multiple drips. Plan MRI brain today if respiratory status improves. Does not tolerate lying flat. Likely will need epoprostenol and rotaprone 03/20: Started on epoprostenol and currently on a rotor from bed. Currently on cisatracurium drip at 1 mcg/kg/min. Diuresing well. 03/21: Weaning down epoprostenol. Remains on cisatracurium drip at 6 mcg/kg/ min. Diuresis 6 L. Saturation was improved FiO2 down to 45%. 03/22: Hypothermic overnight. Currently euthermic. Excellent response to bumetanide drip. FiO2 down to 40%. PEEP down to 8. Possible discontinue paralytic agent today. 03/23: Resting comfortable in bed in no acute distress. Afebrile. Desaturated so placed back on rotor prone bed. Creatinine slowly increasing. 03/24: Afebrile. Worsening chest x-ray it appears to be volume overloaded again. +10 L past 24 hours. Will restart on bumetanide drip. Plan for bronchoscopy today. Switch to ceftazidime/avibactam secondary to ESBL positive Klebsiella pneumonia 03/25: FiO2 to 55%. Tolerating demanding drip with -2 L past 24 hours. Bronchoscopy results pending. Positive BM. Restarting tube feeding today 03/26: Cr continues to rise, although clinically continues to appear severely volume overloaded. fio2 70%. supine all night. off nimbex. off flolan. ID managing ESBL/MDRO/KPC Klebsiella and anaerobic bacteremia. 03/27: off rotaprone bed. multiple desat episodes overnight. on 100% fio2 and PEEP 10 this AM. good diuresis with net -2L/24h. bumex drip continues. awakens and follows commands. 03/28: not diuresing as well as yesterday. wbc uptrending. 2 more episodes of bradycardia, not associated with hypoxia. however, fio2 remains severely elevated. I increased her peep to 14. still arouses and moves all extremities. high concern for ongoing infectious etiology, but with high o2 requirements and intermittent bradycardia requiring atropine, at present too unstable for repeat imaging. 03/29: ct C/A/P without overt infectious source. does demonstrate radiographic evidence of biventricular dysfunction. bedside echo today demonstrates the same , and dilated IVC without respiratory variation. off vasopressors. required atropine for a HR of 15 once overnight. still very hypoxic: changed to APRV 5:1 , 28/0, 4/0.8. 03/30: remains on APRV with hypoxia. multiple episodes of bradycardia and a 18 second pause yesterday. trialed on dobutamine but with multiple dysrhythmias. now on low-dose dopamine to mitigate bradycardia. adequate diuresis overnight. cxr improving slightly. still remains volume overloaded, and YOU persists. 03/31: mild improvements in fio2. remains on APRV. no more bradycardia today. still on dopamine to prevent pauses/bradycardia. YOU persists, but stable. unable to diurese yesterday and now net +2L despite fluid overload. must increase forced diuresis to improve hypoxemia. 04/01: Remains sedated, orally intubated on mechanical ventilation. Being diuresed. Started on Reglan in view of high gastric residuals and decreasing fentanyl as tolerated. 04/02: Remains sedated, orally intubated on APRV mode mechanical ventilation. 04/03: Remains sedated, orally intubated on mechanical ventilation. Awaiting family meeting with palliative care to decide goals of therapy. Being diuresed. 04/04: Remains sedated, orally intubated on mechanical ventilation. Switch to PRVC mode overnight. On 50% FiO2, PEEP +8. Family deciding regarding goals of therapy. 04/05: Remains sedated, orally intubated on mechanical ventilation. PEEP increased to +10 overnight due to hypoxia. 04/06: Remains sedated, orally intubated on mechanical ventilation. Worsening oxygenation since yesterday. Chest x-ray showed fluid overload. Resume Bumex twice daily yesterday in addition to Zaroxolyn PO. 04/07: Remains sedated, orally intubated on mechanical ventilation. Diuresed. Renal function remains a concern. Started on colistin nebs per ID due to very resistant organisms in sputum. Eventually needs tracheostomy and PEG tube placement. 04/08 Patient remains sedated with Versed and Fentanyl infusion. On Cardene drip.Had T:99.7 last night. Remains on high PEEP and FIO2( PEEP:15, FIO2: 65%) 04/09 Patient is intubated with Versed and Fentanyl drips. Tmax 100.3. Now on PRVC with PEEP:12 and FIO2 100% 04/10 Patient is sedated with Fentanyl and Versed drips. Flolan started yesterday. On PRVC with PEEP: 15 and FIO2 100%. Afebrile. 04/11 Patient was hypoxic overnight with qrin82-39's given Rocuronium 100mg IV for desaturation and vent synchrony remains on high PEEP15 with 100%FIO2. Sedated with Versed and Fentanyl drips. CXR this morning shows diffuse b/l infiltrates severe in lower lung zones. 04/12 Patient remains sedated and intubated and on Flolan. Afebrile. 04/13 Patient remains sedated with Versed and Fentanyl and intubated. Afebrile. On Flolan . On PRVC with PEEP: 15, FIO2 down 70%. 04/14 Patient had another episode of desaturation overnight now on PRVC with PEEP :15 and 100% FIO2. T:99.7 last night. Sedated with Versed/Fentanyl drips. On Flolan 04/15 Patient remans sedated with Fentanyl, Versed and intubated. Afebrile. On PRVC with PEEP:15 and FIO2 75%. 04/16: Intubation day #29. Afebrile. FiO2 increased to 100%. More secretions. Will need to paralyze with cisatracurium drip for vent synchrony as patient is currently out of peeping despite maximum midazolam and fentanyl drips. Remains on epoprostenol 04/17: The patient day #30. Remains on cisatracurium drip at 5 mcg/kg/min. FiO2 down to 50%. Chest x-ray reveals diffuse ARDS. Tolerating tube feeds. 04/18: Intubation day #31. We will attempt to wean off cisatracurium drip. FiO2 remains around 50%. Tolerating tube feeding. SUBJECTIVE 04/19: Intubation day #32. Patient went to A. fib with RVR overnight. Given 0.5 mg digoxin. Started on amiodarone drip per protocol currently normal sinus rhythm. Did not tolerate paralytic vacation yesterday became tachypneic and auto PEEP 04/20: no meaningful improvements. fio2 remains high. intubation day #33. some family now discussing possibility of withdraw of care and transition of goals, however did not have all family at bedside for my discussion, so will need to involve all family in this discussion. rate better controlled and out of RVR. all organ dysfunction persists and we have been unable to lighten paralytic or sedation at all without hypoxia. 04/21: no changes or improvements. still requiring neuromuscular blockade to maintain o2 sats. intubation day #34. family meetings ongoing. Objective Vital Signs / I&O: Vital Signs 04/20/18 18:00 04/20/18 18:01 04/20/18 18:30 Temperature Pulse Rate 65 65 78 Respiratory Rate 47 H 40 H 37 H Blood Pressure 121/56 L Pulse Oximetry 96 96 97 04/20/18 19:00 04/20/18 19:01 04/20/18 19:30 Temperature Pulse Rate 73 75 71 Respiratory Rate 32 H 38 H 39 H Blood Pressure 164/70 H Pulse Oximetry 97 97 96 04/20/18 20:00 04/20/18 20:05 04/20/18 20:10 Temperature 36.7 C Pulse Rate 80 79 Respiratory Rate 40 H 21 20 Blood Pressure 165/72 H Pulse Oximetry 97 97 04/20/18 20:30 04/20/18 20:49 04/20/18 21:00 Temperature Pulse Rate 69 70 65 Respiratory Rate 42 H 20 43 H Blood Pressure Pulse Oximetry 98 99 04/20/18 21:01 04/20/18 21:30 04/20/18 22:00 Temperature Pulse Rate 65 68 70 Respiratory Rate 43 H 42 H 41 H Blood Pressure 120/57 L Pulse Oximetry 99 100 98 04/20/18 22:01 04/20/18 22:30 04/20/18 23:00 Temperature Pulse Rate 70 64 63 Respiratory Rate 50 H 43 H 47 H Blood Pressure 147/66 H Pulse Oximetry 97 98 98 04/20/18 23:01 04/20/18 23:30 04/21/18 00:00 Temperature 36.7 C Pulse Rate 63 68 64 Respiratory Rate 49 H 55 H 42 H Blood Pressure 129/61 120/58 L Pulse Oximetry 98 98 97 04/21/18 00:09 04/21/18 00:30 04/21/18 01:00 Temperature Pulse Rate 63 61 Respiratory Rate 20 37 H 41 H Blood Pressure 133/60 Pulse Oximetry 97 97 98 04/21/18 01:30 04/21/18 02:00 04/21/18 02:30 Temperature Pulse Rate 64 63 60 Respiratory Rate 42 H 42 H 41 H Blood Pressure 125/60 Pulse Oximetry 99 98 98 04/21/18 02:36 04/21/18 03:00 04/21/18 03:01 Temperature Pulse Rate 65 66 Respiratory Rate 20 42 H 45 H Blood Pressure 170/74 H Pulse Oximetry 98 99 99 04/21/18 03:16 04/21/18 03:30 04/21/18 04:00 Temperature 37.0 C Pulse Rate 63 69 67 Respiratory Rate 20 35 H 43 H Blood Pressure 168/71 H Pulse Oximetry 100 99 04/21/18 04:20 04/21/18 04:30 04/21/18 06:00 Temperature Pulse Rate 64 84 Respiratory Rate 20 40 H Blood Pressure Pulse Oximetry 98 96 04/21/18 07:54 04/21/18 07:55 04/21/18 08:00 Temperature 36.6 C Pulse Rate 79 81 Respiratory Rate 20 20 27 H Blood Pressure 181/76 H Pulse Oximetry 94 L 94 L 04/21/18 10:00 04/21/18 11:37 04/21/18 12:00 Temperature 36.4 C Pulse Rate 84 69 Respiratory Rate 21 20 Blood Pressure 146/67 H Pulse Oximetry 98 97 04/21/18 14:00 04/21/18 15:15 04/21/18 16:00 Temperature 36.4 C Pulse Rate 84 67 Respiratory Rate 20 20 Blood Pressure 156/68 H Pulse Oximetry 96 98 Intake & Output 04/20/18 04/21/18 04/21/18 18:59 06:59 18:59 Intake Total 2015.2015. 2676 / 2676 2083.1 / 2083.1 Output Total 2350 / 2350 1450 / 1450 Balance -333.9 / -333.9 1226 / 1226 2083.1 / 2083.1 Weight 121 kg Intake: IV 1034.1 / 1034.1 1750 / 1750 2083.1 / 2083.1 Cordarone Inj 450 MG In D5W Inj 250 / 250 250 / 250 250 / 250 241 ML @ 1 MG/MIN 33.33 mls/hr IV.CONT TITRATE PRN Rx#: [id number] Nimbex Inj 200 MG In NS Inj 480 500 / 500 1000 / 1000 1000 / 1000 ML @ 1 MCG/KG/MIN 18.75 mls/hr IV.CONT TITRATE PRN Rx#: [id number] Versed Inj 50 mg In 50 ml @ 2 84.1 / 84.1 100 / 100 84.1 / 84.1 MG/HR 2 mls/hr IV.CONT TITRATE PRN Rx#:[id number] Avycaz Inj 2.5 GM In NS Inj 50 100 / 100 50 / 50 150 / 150 ML @ 25 mls/hr IV.SIG Q8H JACKI Rx#:[id number] fentaNYL 10 mcg/mL Premix Drip 250 / 250 500 / 500 2,500 mcg In 250 ml @ 50 MCG/HR 5 mls/hr IV.SIG TITRATE PRN Rx #:[id number] Flolan (30,000 ng/mL) Neb 37.5 100 / 100 100 / 100 100 / 100 ML In NS Inj 62.5 ML @ As Directed NEB Q8H JACKI Rx#: [id number] Oral 0 / 0 Tube Feeding 562 / 562 446 / 446 Tube Irrigant 120 / 120 180 / 180 Water Bolus Amount 300 / 300 300 / 300 Output: Urine Amount (Catheter) 2350 / 2350 1450 / 1450 Indwelling Urethral Catheter 2349 / 2350 1450 / 1450 Other: Date of Last Bowel Movement 04/17/18 04/21/18 04/21/18 Result Diagrams: 04/21/18 04:00 04/21/18 04:00 Objective Remarks: GENERAL: 52 YO AAF critically ill currently orotracheally intubated SKIN: Warm and dry. HEAD: Normocephalic. EYES: Disconjugate. Left eye leftward gaze. Pupils are round 2 mm bilaterally and reactive. No scleral icterus. No injection or drainage. NECK: Supple, trachea midline. No JVD or lymphadenopathy. CARDIOVASCULAR: Regular rate and rhythm. S1, S2 no S4. Without murmur without murmurs, gallops, or rubs. RESPIRATORY: Diminished breath sounds throughout. No wheezing. GASTROINTESTINAL: Abdomen soft, non-tender, nondistended. MUSCULOSKELETAL: + [place] peripheral edema. Neuro: sedated and intubated. Positive corneal reflex. Does not withdraw to pain. Currently on paralytic with a [id number] of 2 out of 4 Assessment and Plan - Assessment and Plan Plan: Assessment: 52yF with severe ARDS which has been refractory to aggressive medical therapy, including recent pronation therapy, inhaled epoprostanol, neuromuscular blockade. associated organ dysfunction persists, including encephalopathy and acute kidney injury. no meaningful improvements in weeks, and now day #34 of intubation. unable to safely pursue tracheostomy due to high fio2 requirements. remains very critically ill with severe acute lung failure which has been refractory to all our attempts at improvement in gas exchange. NEURO/PSYCH: Acute encephalopathy - secondary to hypercapnia, improving. Abnormal brain CT with 3 mm hyperdensity in central [place] Major depressive disorder NOS Chronic opioid use Encephalomalacia right cerebellum/left occipital lobe Currently on scheduled oxycodone 20mg po q4h Quetiapine 50mg po q8h for delirium. Continue with midazolam drip at 8 mg an hour and fentanyl drip at 250 mg an hour for sedation/analgesia while intubated Continue cisatracurium drip currently on for vent synchrony Monitor neuro status. Daily sedation vacation when clinically appropriate.. Followup MRI brain 03/19 - No evidence of brainstem hemorrhage. Small foci of encephalomalacia in the left occipital lobe and right cerebellum. No evidence of acute infarct, hemorrhage, mass or edema. No evidence of enhancing intra- axial or extra-axial lesions. RESP: Acute hypercapnic and hypoxemic respiratory failure Severe ARDS Acute asthma exacerbation Healthcare associated pneumonia WISAM/OHS Prior tobacco abuse Bilateral pleural effusions right 2.2 cm. Left 1.3 cm LMA was placed in the field by EVAC. Intubated in ED 03/18. Intubation day #34 Continue with vent support keep sats >92% On albuterol/ipratropium aerosols every 6 hours with albuterol aerosols every 2 hours as needed for dyspnea Weaned off epoprostenol 03/23. Flolan 30,000 ng/ml resumed 04/09 currently at 50, 000 ng/mL On PRVC RR 20, TV 550, IT:1.10, PEEP:15, FIO2: 100% On methylprednisolone succinate 40mg IV daily, CXR ordered for a.m. 04/17 revealed diffuse ARDS. CV: Hypertension Hyperlipidemia Chronic diastolic heart failure Paroxysmal atrial fibrillation on chronic anti-coagulation with warfarin currently normal sinus rhythm Peripheral vascular disease/peripheral arterial disease Elevated troponin intermittent bradycardia Cor pulmonale biventricular dysfunction Monitor HR and BP keep MAP>65mmHg 2D echo 02/24/18ejection fraction 50%. Wall thickness upper limits of normal. Trace MR. Continue atorvastatin 40 mg daily for dyslipidemia Doppler bilateral upper and lower extremities revealed no acute thrombus amlodipine 10mg po daily resumed 04/17. Recently held due to edema concerns. T hydralazine 100mg po q8h, Clonidine 0.2 mg q. 7 days patch, carvedilol 3.125 mg BID, Currently on amiodarone drip at 0.5 mg/min. GI: History of GERD Chronic pancreatitis insufficiency Hypoalbuminemia vital high-protein @45 cc an hour per GIs recommendation Famotidine for GI prophylaxis Docusate sodium/senna 1 tablet twice daily for bowel regimen Creon home medication 3 times daily FEN/RENAL: Acute kidney injury superimposed on CKD Chronic kidney disease stage III Acute severe intravascular volume overload with pulmonary edema Hypernatremia Hypokalemia [place] catheter was placed in the emergency department. Monitor renal function, I/O's, avoid nephrotoxins On Bumetanide 2mg BID Cr: 1.26 Renal is following- Dr. Fraser Receiving 40 mEq potassium chloride IV, 25 mEq by tube and 2 g mag sulfate. Recheck potassium this evening. Free water 150 cc every 6 hours for hypernatremia. Recheck BMP in a.m. ID: Acute healthcare associated pneumonia -ESBL positive Klebsiella pneumonia Veillonella species bacteremia Continue with abx per ID (ceftazidime/avibactam, Colistin nebs,) Monitor for signs of infections ( Fever, WBC) 04/10 Sputum: Normal resp jennifer Blood cultures 2 03/18 Veillonella spp. Repeat 03/20 no growth to date Sputum, ESBL positive Klebsiella pneumonia 04/04 Sputum 04/14 gram-negative rhona Pneumococcal urinary antigens, influenza a and B and chlamydia and mycoplasma all pending/negative HEME: Leukocytosis Chronic anemia/normocytic Monitor CBC daily. No indication for transfusion of blood products at this time. ENDO: Diabetes mellitus History of gout SSI q4h high scale Increase insulin detemir to 50 units subcu twice daily. Holding glipizide 10 mg twice daily and insulin glargine/home medication Holding allopurinol 300 mg daily/home medication MSK: Elevated BMI Osteoporosis/osteoarthritis PT evaluate and treat PROPH: SCDs for DVT prophylaxis. Heparin SQ ACCESS: Peripheral IV, right femoral central line placed 04/14 Doppler US B/l Upper and lower EXT negative for DVT on 03/19 Palliative care is following
--- NOTE | 2018-04-21 18:19 | P.PNID ---
Subjective Remarks: remains on vent paralysed and sedated FiO2 down martinez 60% no secretions no fever Antibiotics: avicaz colistine nebs Allergies/Adverse Reactions: Allergies ibuprofen Allergy (Severe, Verified 03/18/18 17:58) MESSES WITH KIDNEYS Sulfa (Sulfonamide Antibiotics) Allergy (Severe, Verified 03/18/18 17:58) HIVES egg Allergy (Intermediate, Verified 03/18/18 17:58) Very Upset Stomach milk Allergy (Unknown, Verified 03/18/18 17:58) Heartburn Objective Vital Signs 04/20/18 18:30 04/20/18 19:00 04/20/18 19:01 Temperature Pulse Rate 78 73 75 Respiratory Rate 37 H 32 H 38 H Blood Pressure 164/70 H Pulse Oximetry 97 97 97 04/20/18 19:30 04/20/18 20:00 04/20/18 20:05 Temperature 98.1 F Pulse Rate 71 80 Respiratory Rate 39 H 40 H 21 Blood Pressure 165/72 H Pulse Oximetry 96 97 97 04/20/18 20:10 04/20/18 20:30 04/20/18 20:49 Temperature Pulse Rate 79 69 70 Respiratory Rate 20 42 H 20 Blood Pressure Pulse Oximetry 98 04/20/18 21:00 04/20/18 21:01 04/20/18 21:30 Temperature Pulse Rate 65 65 68 Respiratory Rate 43 H 43 H 42 H Blood Pressure 120/57 L Pulse Oximetry 99 99 100 04/20/18 22:00 04/20/18 22:01 04/20/18 22:30 Temperature Pulse Rate 70 70 64 Respiratory Rate 41 H 50 H 43 H Blood Pressure 147/66 H Pulse Oximetry 98 97 98 04/20/18 23:00 04/20/18 23:01 04/20/18 23:30 Temperature Pulse Rate 63 63 68 Respiratory Rate 47 H 49 H 55 H Blood Pressure 129/61 Pulse Oximetry 98 98 98 04/21/18 00:00 04/21/18 00:09 04/21/18 00:30 Temperature 98.1 F Pulse Rate 64 63 Respiratory Rate 42 H 20 37 H Blood Pressure 120/58 L Pulse Oximetry 97 97 97 04/21/18 01:00 04/21/18 01:30 04/21/18 02:00 Temperature Pulse Rate 61 64 63 Respiratory Rate 41 H 42 H 42 H Blood Pressure 133/60 125/60 Pulse Oximetry 98 99 98 04/21/18 02:30 04/21/18 02:36 04/21/18 03:00 Temperature Pulse Rate 60 65 Respiratory Rate 41 H 20 42 H Blood Pressure Pulse Oximetry 98 98 99 04/21/18 03:01 04/21/18 03:16 04/21/18 03:30 Temperature Pulse Rate 66 63 69 Respiratory Rate 45 H 20 35 H Blood Pressure 170/74 H Pulse Oximetry 99 100 04/21/18 04:00 04/21/18 04:20 04/21/18 04:30 Temperature 98.6 F Pulse Rate 67 64 Respiratory Rate 43 H 20 40 H Blood Pressure 168/71 H Pulse Oximetry 99 98 96 04/21/18 06:00 04/21/18 07:54 04/21/18 07:55 Temperature Pulse Rate 84 79 Respiratory Rate 20 20 Blood Pressure Pulse Oximetry 94 L 04/21/18 08:00 04/21/18 10:00 04/21/18 11:37 Temperature 97.8 F Pulse Rate 81 76 Respiratory Rate 27 H 21 Blood Pressure 181/76 H Pulse Oximetry 94 L 98 04/21/18 12:00 04/21/18 14:00 04/21/18 15:15 Temperature 97.6 F Pulse Rate 69 65 Respiratory Rate 20 20 Blood Pressure 146/67 H Pulse Oximetry 97 96 04/21/18 16:00 04/21/18 18:00 Temperature 97.6 F Pulse Rate 67 65 Respiratory Rate 20 Blood Pressure 156/68 H Pulse Oximetry 98 Intake & Output 04/20/18 04/21/18 04/21/18 18:59 06:59 18:59 Intake Total 2015. 2676 / 2676 3315.1 / 3315.1 Output Total 2350 / 2350 1450 / 1450 2525 / 2525 Balance -333.9 / -333.9 1226 / 1226 790.1 / 790.1 Weight 121 kg Intake: IV 1034.1 / 1034.1 1750 / 1750 2084.1 / 2084.1 Cordarone Inj 450 MG In D5W Inj 250 / 250 250 / 250 250 / 250 241 ML @ 1 MG/MIN 33.33 mls/hr IV.CONT TITRATE PRN Rx#: [id number] Nimbex Inj 200 MG In NS Inj 480 500 / 500 1000 / 1000 1000 / 1000 ML @ 1 MCG/KG/MIN 18.75 mls/hr IV.CONT TITRATE PRN Rx#: [id number] Versed Inj 50 mg In 50 ml @ 2 84.1 / 84.1 100 / 100 84.1 / 84.1 MG/HR 2 mls/hr IV.CONT TITRATE PRN Rx#:[id number] Avycaz Inj 2.5 GM In NS Inj 50 100 / 100 50 / 50 150 / 150 ML @ 25 mls/hr IV.SIG Q8H [facility] Rx#:[id number] fentaNYL 10 mcg/mL Premix Drip 250 / 250 500 / 500 2,500 mcg In 250 ml @ 50 MCG/HR 5 mls/hr IV.SIG TITRATE PRN Rx #:[id number] Flolan (30,000 ng/mL) Neb 37.5 100 / 100 100 / 100 100 / 100 ML In NS Inj 62.5 ML @ As Directed NEB Q8H [facility] Rx#: [id number] Oral 0 / 0 Tube Feeding 562 / 562 446 / 446 511 / 511 Tube Irrigant 120 / 120 180 / 180 120 / 120 Water Bolus Amount 300 / 300 300 / 300 600 / 600 Output: Urine Amount (Catheter) 2350 / 2350 1450 / 1450 2525 / 2525 Indwelling Urethral Catheter 2350 / 2350 1450 / 1450 2525 / 2525 Other: Date of Last Bowel Movement 04/17/18 04/21/18 04/21/18 03/24/18 16:30 Bronchial Washings - Left Lower Lobe Fungal Smear - Final No fungal elements seen 03/24/18 16:30 Bronchial Washings - Left Lower Lobe Fungal Culture - Final No growth in 4 weeks 03/24/18 16:30 Bronchial Washings - Left Lower Lobe Acid Fast Bacilli Smear - Final No acid fast bacilli seen 03/24/18 16:30 Bronchial Washings - Left Lower Lobe Mycobacterial Culture - Preliminary No growth in 4 weeks 04/18/18 21:52 Sputum - Endotracheal Gram Stain - Final 04/18/18 21:52 Sputum - Endotracheal Sputum Culture - Final Heavy growth normal respiratory jennifer 04/19/18 05:40 Urine - Catheterized Urine Legionella Antigen - Final Presumptive negative for Legionella pneumophila serogroup 1 antigen in urine, suggesting no recent or recurrent infection. Infection due to Legionella cannot be ruled out since other serogroups and species may cause disease, antigen may not be present in urine in early infection, and the level of antigen present in the urine may be below the detection limit of the test. 03/18/18 05:40 Urine - Catheterized Urine Streptococcus pneumoniae Antigen ( M - Final Presumptive negative for streptococcus pneumoniae antigen, suggesting no current or recent infection. Infection due to Streptococcus pneumoniae cannot be ruled out since the antigen present in the sample may be below the detection limit of the test. Lab - Hematology Results 04/20/18 04/21/18 04/21/18 05:15 04:00 04:00 WBC 10.6 10.0 10.1 RBC 2.89 L 2.68 L 2.67 L Hgb 7.6 L 7.0 L 7.1 L Hct 24.4 L 22.2 L 22.5 L MCV 84.4 83.1 84.2 MCH 26.3 L 26.3 L 26.6 L MCHC 31.2 L 31.6 L 31.5 L RDW 21.3 H 22.3 H 21.8 H Plt Count 169 169 169 MPV 10.6 10.1 10.0 Neut % (Auto) 85.5 H 83.4 H Lymph % (Auto) 7.6 L 9.5 [place] % (Auto) 5.7 6.3 Eos % (Auto) 0.8 0.4 Baso % (Auto) 0.4 0.4 Neut # (Auto) 9.0 H 8.4 H Lymph # (Auto) 0.8 L 1.0 [place] # (Auto) 0.6 0.6 Eos # (Auto) 0.1 0.0 Baso # (Auto) 0.0 0.0 WBC Differential . . Differential Comment Auto diff final Auto diff final Lab - Chemistry Results 04/19/18 04/19/18 04/19/18 20:56 22:19 23:45 Sodium Potassium 4.2 D Chloride Carbon Dioxide Anion Gap BUN Creatinine Estimated GFR POC Glucose 259 H 274 H Random Glucose Calcium Phosphorus 3.2 Magnesium 2.1 Total Bilirubin AST ALT Alkaline Phosphatase Total Protein Albumin 04/20/18 04/20/18 04/20/18 04:08 05:15 08:42 Sodium 145 Potassium 4.1 Chloride 106 Carbon Dioxide 27.1 Anion Gap 12 BUN 117 H Creatinine 1.33 H Estimated GFR 50 L POC Glucose 234 H 226 H Random Glucose 230 H Calcium 9.4 Phosphorus 3.4 Magnesium 2.2 Total Bilirubin 0.4 AST 22 ALT 26 Alkaline Phosphatase 82 Total Protein 6.9 Albumin 2.0 L 04/20/18 04/20/18 04/20/18 12:20 15:46 19:44 Sodium Potassium Chloride Carbon Dioxide Anion Gap BUN Creatinine Estimated GFR POC Glucose 240 H 229 H 269 H Random Glucose Calcium Phosphorus Magnesium Total Bilirubin AST ALT Alkaline Phosphatase Total Protein Albumin 04/21/18 04/21/18 04/21/18 00:12 04:00 04:11 Sodium 147 H Potassium 4.2 Chloride 106 Carbon Dioxide 28.4 Anion Gap 13 BUN 123 H Creatinine 1.46 H Estimated GFR 45 L POC Glucose 269 H 232 H Random Glucose 210 H Calcium 9.8 Phosphorus Magnesium Total Bilirubin AST ALT Alkaline Phosphatase Total Protein Albumin 04/21/18 04/21/18 04/21/18 07:23 11:59 16:16 Sodium Potassium Chloride Carbon Dioxide Anion Gap BUN Creatinine Estimated GFR POC Glucose 215 H 227 H 247 H Random Glucose Calcium Phosphorus Magnesium Total Bilirubin AST ALT Alkaline Phosphatase Total Protein Albumin 04/21/18 17:19 Sodium Potassium Chloride Carbon Dioxide Anion Gap BUN Creatinine Estimated GFR POC Glucose 264 H Random Glucose Calcium Phosphorus Magnesium Total Bilirubin AST ALT Alkaline Phosphatase Total Protein Albumin Imaging: ITS Impressions Head CT 03/18/18 18:46 CONCLUSION: 1. Solitary 3 mm hyperdensity in the central [place] of uncertain significance. Differential considerations include a punctate calcification and acute hemorrhage. 2. No acute findings in the supratentorial brain. Head MRI 03/19/18 00:00 CONCLUSION: 1. No evidence of brainstem hemorrhage. 2. Small foci of encephalomalacia in the left occipital lobe and right cerebellum 3. No evidence of acute infarct, hemorrhage, mass or edema. 4. No evidence of enhancing intra-axial or extra-axial lesions. Venous Doppler Study 03/19/18 00:00 CONCLUSION: The study is negative for bilateral lower extremity deep venous thrombosis. Foot X-Ray 03/22/18 00:00 CONCLUSION: No acute bony destructive change. Previous amputations as above. Fairly marked soft tissue swelling of the forefoot. Abdomen X-Ray 03/26/18 00:00 CONCLUSION: Abdomen/Pelvis CT 03/28/18 00:00 CONCLUSION: 1. Minimal increase in the trace bilateral pleural effusions with compressive atelectasis in both bases. 2. Gallstones in a benign-appearing gallbladder 3. I don't see evidence for colitis. 4. I don't see inflammatory changes in the abdomen. Chest CT 03/28/18 00:00 CONCLUSION: 1. Biventricular cardiomegaly with coarse interstitial changes in both lungs. A component of this could be failure 2. Trace bilateral pleural effusions larger on the right.. These have decreased slightly in the interval. Foot MRI 03/28/18 00:00 CONCLUSION: 1. Difficult exam to interpret because of extensive soft tissue swelling. No obvious osteomyelitis. 2. Nuclear medicine tagged white cell study may help. Chest X-Ray 04/20/18 06:00 CONCLUSION: Unchanged diffuse pulmonary infiltrates. Physical Exam: no acute distress, morbidly obese Head: Present: normocephalic, atraumatic, prominent facial swelling Eye: Present: improved periorbital swelling ENT: Present: mucous membranes moist, oropharynx clear NECK: trachea midline LUNGs: patient mechanically ventilated, fairly clear Cardiovascular : RRR, S1, S2 no murmurs, rubs , gallops Abdominal : soft, less distended no reaction to palpation, no audible bowel sounds no palpable organomegaly liquid stool in rectal collection system : hernandez in place with clear light yellow urine hernandez in place with small amount of clear yellow urine Extremities: edema is minimal prominent tree bark meeks Skin : intact, dry, no rash well perfused Neurological : sedated and paralysed Psychiatric : unable to assess LINE: R IJ removed Assessment and Plan - Plan sp cardiac arrest Anaerobic sepsis; veillonella ? source : GI vs osteo CT and MRI diid not reveal source of her anaerobic sepsis Xrays negative, CT/MR not feasible 2/2 clincial cond'n Acute VDRF, increasing vent requirement s - difficulty weaning PNA, ESBL/ ? KPC Kleb R to zerbaxa, S acvycaz and vabomere worsening CXR worsening oxygenation Persiastently growing GNB in the sputum YOU - stable she is doing worse Persistent leukocytosis - much worse Anemia, new. No clincially apparent bleed - Prognosis is poorr due to progressive resp failure survival of this hospitalisation is not expected - cont avycaz, colistine nebs - fu repeat sputum clx seinsitivity to avycaxz - monitor WBC CXR in am dw RN
[2018-04-21] MEDS: Chlorothiazide Inj 500 MG Vial IV.PUSH SCH (20:15)
[2018-04-21] MEDS: Ceftazidime/Avibactam Inj 1.25 GM in Sodium Chlor 0.9% Inj 50 ML IV.SIG SCH (22:42)
[2018-04-22] MEDS: Insulin NovoLIN Regular Correctional Sugar Inj SQ SCH ×3 (00:27→08:40)
[2018-04-22] MEDS: Oral Hygiene Kit OROPHARYNG SCH ×3 (00:28→12:55)
[2018-04-22] MEDS: EPOPROSTENOL NEB SCH (02:06)
[2018-04-22] MEDS: SODIUM CHLOR NEB SCH (02:06)
[2018-04-22] MEDS: Hypromellose 0.3% Opth Gel 10 GM Bottle EACH EYE SCH ×2 (02:08→12:55)
[2018-04-22] MEDS: CISATRACURIUM IV.CONT PRN (04:52)
[2018-04-22] MEDS: Midazolam 50 MG/50 ML Inj 50 MG/50 ML BAG IV.CONT PRN ×2 (04:52→08:42)
[2018-04-22] MEDS: fentaNYL 10 mcg/mL Premix Drip 2,500 MCG/250 ML BAG IV.SIG PRN ×2 (04:52→13:27)
[2018-04-22] MEDS: SODIUM CHLOR 0.9% IV.CONT PRN (04:52)
[2018-04-22] MEDS: QUEtiapine 25 MG Tablet PO SCH (05:08)
[2018-04-22 05:09] LABS: ABG Base Excess 2.4 mmol/L (-2-2); ABG PCO2 43 mmHg (38-42); ABG PO2 67 mmHG (61-120)
[2018-04-22] MEDS: Ceftazidime/Avibactam Inj 1.25 GM in Sodium Chlor 0.9% Inj 50 ML IV.SIG SCH ×2 (05:09→13:03)
--- NOTE | 2018-04-22 05:28 | XR ---
EXAM DATE: 04/22/2018 5:04 AM EDT AGE/SEX: 52 years / Female INDICATIONS: Shortness of breath. CLINICAL DATA: This is the patient's subsequent encounter. Patient reports that signs and symptoms h ave been present for 1 month and indicates a pain score of Nonresponsive. MEDICAL/SURGICAL HISTORY: . Cardiovascular disease. Hypertension. Diabetes mellitus type II. None. COMPARISON: [facility] [place], CHEST 1V SINGLE AP, 04/20/2018. . FINDINGS: A single AP view of the chest demonstrates no interval change. Diffuse bilateral pulmonary infiltrate s again noted most dense within the bases. No discrete effusions. Heart is normal in size. Tip of the endotracheal tube 2 cm from the elizabeth. Nasogastric tube coiled in the stomach. CONCLUSION: Unchanged diffuse pulmonary infiltrates. Electronically signed by: Manish Ortiz MD 04/22/2018 5:27 AM EDT
[2018-04-22 06:16] LABS: Hematocrit 23.5 % (35.0-46.0); Hemoglobin 7.7 gm/dL (11.6-15.3); Mean Corpuscular HGB Conc 32.8 % (32.0-36.0); Mean Corpuscular Hemoglobin 27.1 pg (27.0-34.0); Mean Corpuscular Volume 82.5 fL (80.0-100.0); Mean Platelet Volume 9.8 fL (7.0-11.0); Platelet Count 187 th/mm3 (150-450); Red Blood Count 2.85 mil/mm3 (4.00-5.30); Red Cell Distribution Width 21.7 % (11.6-17.2); White Blood Count 10.5 th/mm3 (4.0-11.0)
[2018-04-22 06:31] LABS: Carbon Dioxide 28.9 meq/L (21.0-32.0); Potassium 3.6 meq/L (3.5-5.1)
[2018-04-22] MEDS: Heparin - SQ 10,000 UNITS/ML Vial SQ SCH (08:39)
[2018-04-22] MEDS: Senna/Docusate Sodium 8.6/50 MG Tablet PO SCH (08:39)
[2018-04-22] MEDS: Famotidine 20 MG Tablet PO SCH (08:39)
[2018-04-22] MEDS: amLODIPine 10 MG Tablet PO SCH (08:39)
[2018-04-22] MEDS: Chlorhexidine 0.12% Oral Kit 15 ML UDC OROPHARYNG SCH (08:40)
[2018-04-22] MEDS: Lipase/Protease/Amylase 24/76/120 DR Capsule PO SCH ×2 (08:40→13:02)
[2018-04-22] MEDS: Chlorothiazide Inj 500 MG Vial IV.PUSH SCH (08:40)
[2018-04-22] MEDS: Insulin Detemir Inj 1,000 UNIT/10 ML Vial SQ SCH (08:42)
--- NOTE | 2018-04-22 10:58 | P.PNNP ---
Subjective Interval history: Remains paralyzed on the vent. FiO2 now at 70%. Renal function improving. <Myrtle Levi - Last Filed: 04/22/18 10:54> Physical Exam Vital signs: Vital Signs 04/21/18 11:37 04/21/18 12:00 04/21/18 14:00 Temperature 97.6 F Pulse Rate 69 65 Respiratory Rate 21 20 Blood Pressure 146/67 H Pulse Oximetry 98 97 04/21/18 15:15 04/21/18 16:00 04/21/18 16:30 Temperature 97.6 F Pulse Rate 67 61 Respiratory Rate 20 20 41 H Blood Pressure 156/68 H Pulse Oximetry 96 98 95 04/21/18 17:00 04/21/18 17:30 04/21/18 18:00 Temperature Pulse Rate 64 61 65 Respiratory Rate 37 H 41 H 37 H Blood Pressure 146/65 H 153/67 H Pulse Oximetry 96 96 99 04/21/18 18:30 04/21/18 19:00 04/21/18 19:01 Temperature Pulse Rate 67 58 L 58 L Respiratory Rate 20 20 20 Blood Pressure 131/63 Pulse Oximetry 99 96 96 04/21/18 19:30 04/21/18 20:00 04/21/18 20:05 Temperature 97.7 F Pulse Rate 64 55 L 55 L Respiratory Rate 20 20 20 Blood Pressure 133/64 Pulse Oximetry 98 97 04/21/18 20:30 04/21/18 20:46 04/21/18 21:00 Temperature Pulse Rate 64 65 66 Respiratory Rate 20 20 20 Blood Pressure Pulse Oximetry 99 99 04/21/18 21:01 04/21/18 21:16 04/21/18 21:30 Temperature Pulse Rate 66 53 L Respiratory Rate 20 20 20 Blood Pressure 164/71 H Pulse Oximetry 100 96 96 04/21/18 22:00 04/21/18 22:01 04/21/18 22:30 Temperature Pulse Rate 53 L 53 L 53 L Respiratory Rate 20 20 20 Blood Pressure 122/58 L Pulse Oximetry 96 96 96 04/21/18 23:00 04/21/18 23:04 04/21/18 23:30 Temperature Pulse Rate 59 L 56 L Respiratory Rate 20 20 20 Blood Pressure 137/65 Pulse Oximetry 98 98 98 04/22/18 00:00 04/22/18 00:30 04/22/18 01:00 Temperature 98 F Pulse Rate 58 L 56 L 59 L Respiratory Rate 20 20 20 Blood Pressure 137/63 143/66 H Pulse Oximetry 98 97 97 04/22/18 01:30 04/22/18 01:41 04/22/18 02:00 Temperature Pulse Rate 54 L 51 L Respiratory Rate 20 21 20 Blood Pressure Pulse Oximetry 96 99 96 04/22/18 02:01 04/22/18 02:30 04/22/18 03:00 Temperature Pulse Rate 51 L 61 52 L Respiratory Rate 20 20 20 Blood Pressure 120/59 L 119/58 L Pulse Oximetry 96 100 98 04/22/18 03:30 04/22/18 03:32 04/22/18 04:00 Temperature 97.6 F Pulse Rate 51 L 52 L 66 Respiratory Rate 20 20 20 Blood Pressure Pulse Oximetry 99 100 04/22/18 04:01 04/22/18 04:30 04/22/18 04:31 Temperature Pulse Rate 65 73 Respiratory Rate 20 21 20 Blood Pressure 170/72 H Pulse Oximetry 100 97 97 04/22/18 05:00 04/22/18 05:01 04/22/18 05:30 Temperature Pulse Rate 87 85 80 Respiratory Rate 32 H 34 H 22 Blood Pressure 202/84 H Pulse Oximetry 99 97 98 04/22/18 06:00 04/22/18 06:01 04/22/18 06:30 Temperature Pulse Rate 76 71 69 Respiratory Rate 21 20 20 Blood Pressure 167/72 H Pulse Oximetry 98 98 97 04/22/18 07:42 Temperature Pulse Rate 68 Respiratory Rate 20 Blood Pressure Pulse Oximetry 97 Intake & Output 04/21/18 04/22/18 04/22/18 18:59 06:59 18:59 Intake Total 3265.1 / 3265.1 7033 / 7033 284.1 / 284.1 Output Total 2525 / 2525 Balance 740.1 / 740.1 7033 / 7033 284.1 / 284.1 Weight 122.5 kg Intake: IV 4.1 / 2034.1 1500 / 1500 284.1 / 284.1 Cordarone Inj 450 MG In D5W Inj 250 / 250 250 / 250 241 ML @ 1 MG/MIN 33.33 mls/hr IV.CONT TITRATE PRN Rx#: [id number] Nimbex Inj 200 MG In NS Inj 480 1000 / 1000 1000 / 1000 ML @ 1 MCG/KG/MIN 18.75 mls/hr IV.CONT TITRATE PRN Rx#: [id number] Versed Inj 50 mg In 50 ml @ 2 84.1 / 84.1 100 / 100 34.1 / 34.1 MG/HR 2 mls/hr IV.CONT TITRATE PRN Rx#:[id number] Avycaz Inj 1.25 GM In NS Inj 50 100 / 100 50 / 50 ML @ 25 mls/hr IV.SIG Q8H [facility] Rx#:[id number] fentaNYL 10 mcg/mL Premix Drip 500 / 500 250 / 250 2,500 mcg In 250 ml @ 50 MCG/HR 5 mls/hr IV.SIG TITRATE PRN Rx #:[id number] Flolan (30,000 ng/mL) Neb 37.5 100 / 100 100 / 100 ML In NS Inj 62.5 ML @ As Directed NEB Q8H [facility] Rx#: [id number] Tube Feeding 511 / 511 4753 / 4753 Tube Irrigant 120 / 120 180 / 180 Water Bolus Amount 600 / 600 600 / 600 Output: Urine Amount (Catheter) 2525 / 2525 Indwelling Urethral Catheter 2525 / 2525 Other: Date of Last Bowel Movement 04/21/18 04/21/18 - Constitutional no acute distress, morbidly obese - Routine HEENT Exam Eye: Present: periorbital swelling - Routine Neck Exam Present: supple, full ROM - Routine Respiratory Exam Present: patient mechanically ventilated - Routine Cardiovascular Exam Present: RRR, S1, S2 - Routine Abdominal Exam Present: soft, normoactive bowel sounds - Routine Extremities Exam Present: edema, full ROM, amputation - Routine Skin Exam Present: dry, warm - Routine Neurological Exam paralyzed on vent - Detailed Neurological Exam: Coma Scale Eye Opening: None Verbal Response: None Motor Response: None Gianni Coma Scale Total: 3 - Routine Psychiatric Exam Present: unable to assess - Urinary Catheter Management Indwelling Urethral Catheter Cath placed during this visit: yes Urethral indwelling: Yes Reason for continuing: Hourly intake/output Insertion date: 03/18/18 Insertion time: 21:00 <Myrtle Levi - Last Filed: 04/22/18 10:54> Vital signs: Intake & Output 04/22/18 04/23/18 04/23/18 18:59 06:59 18:59 Intake Total 584.1 / 584.1 Balance 584.1 / 584.1 Intake: IV 584.1 / 584.1 Cordarone Inj 450 MG In D5W Inj 250 / 250 241 ML @ 1 MG/MIN 33.33 mls/hr IV.CONT TITRATE PRN Rx#: [id number] Versed Inj 50 mg In 50 ml @ 2 34.1 / 34.1 MG/HR 2 mls/hr IV.CONT TITRATE PRN Rx#:[id number] Avycaz Inj 1.25 GM In NS Inj 50 50 / 50 ML @ 25 mls/hr IV.SIG Q8H [facility] Rx#:[id number] fentaNYL 10 mcg/mL Premix Drip 250 / 250 2,500 mcg In 250 ml @ 50 MCG/HR 5 mls/hr IV.SIG TITRATE PRN Rx #:[id number] Other: Date of Last Bowel Movement 04/21/18 - Urinary Catheter Management Indwelling Urethral Catheter Cath placed during this visit: no <Alverto Fraser - Last Filed: 04/23/18 15:30> Assessment and Plan - Assessment (1) Acute renal failure superimposed on stage 3 chronic kidney disease Code(s): N17.9 - Acute kidney failure, unspecified; N18.3 - Chronic kidney disease, stage 3 (moderate) Status: Acute Plan: Her previous baseline creatinine was 1.6-2, GFR 44. YOU most likely due to cardiac arrest and decreased renal perfusion. Her renal function is improving. continue Diuril 500 mg IV BID and free water 300 Q6H with tube feeding. Goal negative fluid balance. She is non oliguric, continue to monitor. Avoid nephrotoxic agents,dose appropriate to renal status. Minimize non essential medications. D/W her family. They do not wish to begin dialysis if needed. Her son makes the medical decisions. (2) Acute respiratory failure with hypoxemia Code(s): J96.01 - Acute respiratory failure with hypoxia Status: Acute Plan: ARDS. High oxygen requirement. Management per critical care service. Needs better oxygenation prior to trach placement. (3) Diabetes mellitus type 2 in obese Code(s): E11.69 - Type 2 diabetes mellitus with other specified complication; E66.9 - Obesity, unspecified Status: Chronic Plan: Maintain glucose 140-180mg/dL while hospitalized. Use insulin if needed. (4) Hypertension Code(s): I10 - Essential (primary) hypertension Status: Chronic Plan: Monitor BP. Continue medications as ordered. (5) HCAP (healthcare-associated pneumonia) Code(s): J18.9 - Pneumonia, unspecified organism Status: Acute Plan: ID is following, managing antibiotics. Currently on Avycaz and Colistin neb. s/p bronch with cultures reviewed. Klebsiella PNA. (6) Diastolic heart failure Code(s): I50.30 - Unspecified diastolic (congestive) heart failure Status: Acute Plan: Monitor fluid status. Continue diuresis. She had an echo previous admission, EF 50%. <Myrtle Levi - Last Filed: 04/22/18 10:54> - Assessment (1) Acute renal failure superimposed on stage 3 chronic kidney disease Code(s): N17.9 - Acute kidney failure, unspecified; N18.3 - Chronic kidney disease, stage 3 (moderate) Status: Acute (2) Acute respiratory failure with hypoxemia Code(s): J96.01 - Acute respiratory failure with hypoxia Status: Acute (3) Diabetes mellitus type 2 in obese Code(s): E11.69 - Type 2 diabetes mellitus with other specified complication; E66.9 - Obesity, unspecified Status: Chronic (4) Hypertension Code(s): I10 - Essential (primary) hypertension Status: Chronic (5) HCAP (healthcare-associated pneumonia) Code(s): J18.9 - Pneumonia, unspecified organism Status: Acute (6) Diastolic heart failure Code(s): I50.30 - Unspecified diastolic (congestive) heart failure Status: Acute - Attending Attestation patient was seen and examined. Agree with above assessment and plan. Seen on . <Alverto Fraser - Last Filed: 04/23/18 15:30>
--- NOTE | 2018-04-22 12:06 | P.PNCC ---
Subjective Subjective Remarks/Hospital Course: 52-year-old female with past medical history of diabetes mellitus, hypertension, hyperlipidemia, atrial fibrillation on chronic anticoagulation with warfarin, chronic diastolic heart failure, asthma, WISAM, peripheral vascular disease, super morbid obesity. She has been at [facility] since 03/02/18. Abeba JACOBO was called due to respiratory distress. When they arrived as she was found to be in respiratory distress with sats in the 70s. She was communicating with them and reportedly said "leave me alone". She then had PEA arrest. She received CPR reportedly 10-15 minutes and received 2 doses of epinephrine. LMA was placed by EVAC. LMA was removed and she was intubated by Dr. Daly after receiving etomidate 20 mg IV and succinylcholine. She has demonstrated purposeful movements post intubation, and is now on a propofol drip. She was recently admitted to [facility] 02/24-03/02 due to hypoglycemia, fall after isolated episode of diarrhea, hypoxia requiring HFNC. She has chronic interstitial changes on CXR. Reviewed records from [facility] which indicate she completed a 7 day course of Levaquin and has been on a prednisone taper. Current CXR shows bibasilar opacities. WBC is 16 ( previously 7.9). She has acute hypercapneic and hypoxemic respiratory failure. 03/19: Afebrile. Remains on 100% FiO2 PEEP of 12. Central has been placed for access due to multiple drips. Plan MRI brain today if respiratory status improves. Does not tolerate lying flat. Likely will need epoprostenol and rotaprone 03/20: Started on epoprostenol and currently on a rotor from bed. Currently on cisatracurium drip at 1 mcg/kg/min. Diuresing well. 03/21: Weaning down epoprostenol. Remains on cisatracurium drip at 6 mcg/kg/ min. Diuresis 6 L. Saturation was improved FiO2 down to 45%. 03/22: Hypothermic overnight. Currently euthermic. Excellent response to bumetanide drip. FiO2 down to 40%. PEEP down to 8. Possible discontinue paralytic agent today. 03/23: Resting comfortable in bed in no acute distress. Afebrile. Desaturated so placed back on rotor prone bed. Creatinine slowly increasing. 03/24: Afebrile. Worsening chest x-ray it appears to be volume overloaded again. +10 L past 24 hours. Will restart on bumetanide drip. Plan for bronchoscopy today. Switch to ceftazidime/avibactam secondary to ESBL positive Klebsiella pneumonia 03/25: FiO2 to 55%. Tolerating demanding drip with -2 L past 24 hours. Bronchoscopy results pending. Positive BM. Restarting tube feeding today 03/26: Cr continues to rise, although clinically continues to appear severely volume overloaded. fio2 70%. supine all night. off nimbex. off flolan. ID managing ESBL/MDRO/KPC Klebsiella and anaerobic bacteremia. 03/27: off rotaprone bed. multiple desat episodes overnight. on 100% fio2 and PEEP 10 this AM. good diuresis with net -2L/24h. bumex drip continues. awakens and follows commands. 03/28: not diuresing as well as yesterday. wbc uptrending. 2 more episodes of bradycardia, not associated with hypoxia. however, fio2 remains severely elevated. I increased her peep to 14. still arouses and moves all extremities. high concern for ongoing infectious etiology, but with high o2 requirements and intermittent bradycardia requiring atropine, at present too unstable for repeat imaging. 03/29: ct C/A/P without overt infectious source. does demonstrate radiographic evidence of biventricular dysfunction. bedside echo today demonstrates the same , and dilated IVC without respiratory variation. off vasopressors. required atropine for a HR of 15 once overnight. still very hypoxic: changed to APRV 5:1 , 28/0, 4/0.8. 03/30: remains on APRV with hypoxia. multiple episodes of bradycardia and a 18 second pause yesterday. trialed on dobutamine but with multiple dysrhythmias. now on low-dose dopamine to mitigate bradycardia. adequate diuresis overnight. cxr improving slightly. still remains volume overloaded, and YOU persists. 03/31: mild improvements in fio2. remains on APRV. no more bradycardia today. still on dopamine to prevent pauses/bradycardia. YOU persists, but stable. unable to diurese yesterday and now net +2L despite fluid overload. must increase forced diuresis to improve hypoxemia. 04/01: Remains sedated, orally intubated on mechanical ventilation. Being diuresed. Started on Reglan in view of high gastric residuals and decreasing fentanyl as tolerated. 04/02: Remains sedated, orally intubated on APRV mode mechanical ventilation. 04/03: Remains sedated, orally intubated on mechanical ventilation. Awaiting family meeting with palliative care to decide goals of therapy. Being diuresed. 04/04: Remains sedated, orally intubated on mechanical ventilation. Switch to PRVC mode overnight. On 50% FiO2, PEEP +8. Family deciding regarding goals of therapy. 04/05: Remains sedated, orally intubated on mechanical ventilation. PEEP increased to +10 overnight due to hypoxia. 04/06: Remains sedated, orally intubated on mechanical ventilation. Worsening oxygenation since yesterday. Chest x-ray showed fluid overload. Resume Bumex twice daily yesterday in addition to Zaroxolyn PO. 04/07: Remains sedated, orally intubated on mechanical ventilation. Diuresed. Renal function remains a concern. Started on colistin nebs per ID due to very resistant organisms in sputum. Eventually needs tracheostomy and PEG tube placement. 04/08 Patient remains sedated with Versed and Fentanyl infusion. On Cardene drip.Had T:99.7 last night. Remains on high PEEP and FIO2( PEEP:15, FIO2: 65%) 04/09 Patient is intubated with Versed and Fentanyl drips. Tmax 100.3. Now on PRVC with PEEP:12 and FIO2 100% 04/10 Patient is sedated with Fentanyl and Versed drips. Flolan started yesterday. On PRVC with PEEP: 15 and FIO2 100%. Afebrile. 04/11 Patient was hypoxic overnight with [id number] given Rocuronium 100mg IV for desaturation and vent synchrony remains on high PEEP15 with 100%FIO2. Sedated with Versed and Fentanyl drips. CXR this morning shows diffuse b/l infiltrates severe in lower lung zones. 04/12 Patient remains sedated and intubated and on Flolan. Afebrile. 04/13 Patient remains sedated with Versed and Fentanyl and intubated. Afebrile. On Flolan . On PRVC with PEEP: 15, FIO2 down 70%. 04/14 Patient had another episode of desaturation overnight now on PRVC with PEEP :15 and 100% FIO2. T:99.7 last night. Sedated with Versed/Fentanyl drips. On Flolan 04/15 Patient remans sedated with Fentanyl, Versed and intubated. Afebrile. On PRVC with PEEP:15 and FIO2 75%. 04/16: Intubation day #29. Afebrile. FiO2 increased to 100%. More secretions. Will need to paralyze with cisatracurium drip for vent synchrony as patient is currently out of peeping despite maximum midazolam and fentanyl drips. Remains on epoprostenol 04/17: The patient day #30. Remains on cisatracurium drip at 5 mcg/kg/min. FiO2 down to 50%. Chest x-ray reveals diffuse ARDS. Tolerating tube feeds. 04/18: Intubation day #31. We will attempt to wean off cisatracurium drip. FiO2 remains around 50%. Tolerating tube feeding. 04/19: Intubation day #32. Patient went to A. fib with RVR overnight. Given 0.5 mg digoxin. Started on amiodarone drip per protocol currently normal sinus rhythm. Did not tolerate paralytic vacation yesterday became tachypneic and auto PEEP 04/20: no meaningful improvements. fio2 remains high. intubation day #33. some family now discussing possibility of withdraw of care and transition of goals, however did not have all family at bedside for my discussion, so will need to involve all family in this discussion. rate better controlled and out of RVR. all organ dysfunction persists and we have been unable to lighten paralytic or sedation at all without hypoxia. 04/21: no changes or improvements. still requiring neuromuscular blockade to maintain o2 sats. intubation day #34. family meetings ongoing. SUBJECTIVE 04/22: intubation day #35. family still resistant to transition of goals. it is clear that our current therapies are completely ineffective in making any forward progress is severe lung failure. will stop inhaled epoprostanol as it is clearly ineffective and will stop neuromuscular blockade: patients on weeks of continuous neuromuscular blockade have far worse outcomes. also, context sensitive half-time of midazolam given 4-6 weeks of infusion is quite large, and will need to decrease and limit our midazolam exposure at this point. will attempt other sedation strategies. continue to discuss poor prognosis with family, and this is, at this point, most likely non-survivable. Objective Vital Signs / I&O: Vital Signs 04/21/18 14:00 04/21/18 15:15 04/21/18 16:00 Temperature 36.4 C Pulse Rate 65 67 Respiratory Rate 20 20 Blood Pressure 156/68 H Pulse Oximetry 96 98 04/21/18 16:30 04/21/18 17:00 04/21/18 17:30 Temperature Pulse Rate 61 64 61 Respiratory Rate 41 H 37 H 41 H Blood Pressure 146/65 H Pulse Oximetry 95 96 96 04/21/18 18:00 04/21/18 18:30 04/21/18 19:00 Temperature Pulse Rate 65 67 58 L Respiratory Rate 37 H 20 20 Blood Pressure 153/67 H Pulse Oximetry 99 99 96 04/21/18 19:01 04/21/18 19:30 04/21/18 20:00 Temperature 36.5 C Pulse Rate 58 L 64 55 L Respiratory Rate 20 20 20 Blood Pressure 131/63 133/64 Pulse Oximetry 96 98 97 04/21/18 20:05 04/21/18 20:30 04/21/18 20:46 Temperature Pulse Rate 55 L 64 65 Respiratory Rate 20 20 20 Blood Pressure Pulse Oximetry 99 04/21/18 21:00 04/21/18 21:01 04/21/18 21:16 Temperature Pulse Rate 66 66 Respiratory Rate 20 20 20 Blood Pressure 164/71 H Pulse Oximetry 99 100 96 04/21/18 21:30 04/21/18 22:00 04/21/18 22:01 Temperature Pulse Rate 53 L 53 L 53 L Respiratory Rate 20 20 20 Blood Pressure 122/58 L Pulse Oximetry 96 96 96 04/21/18 22:30 04/21/18 23:00 04/21/18 23:04 Temperature Pulse Rate 53 L 59 L Respiratory Rate 20 20 20 Blood Pressure 137/65 Pulse Oximetry 96 98 98 04/21/18 23:30 04/22/18 00:00 04/22/18 00:30 Temperature 36.6 C Pulse Rate 56 L 58 L 56 L Respiratory Rate 20 20 20 Blood Pressure 137/63 Pulse Oximetry 98 98 97 04/22/18 01:00 04/22/18 01:30 04/22/18 01:41 Temperature Pulse Rate 59 L 54 L Respiratory Rate 20 20 21 Blood Pressure 143/66 H Pulse Oximetry 97 96 99 04/22/18 02:00 04/22/18 02:01 04/22/18 02:30 Temperature Pulse Rate 51 L 51 L 61 Respiratory Rate 20 20 20 Blood Pressure 120/59 L Pulse Oximetry 96 96 100 04/22/18 03:00 04/22/18 03:30 04/22/18 03:32 Temperature Pulse Rate 52 L 51 L 52 L Respiratory Rate 20 20 20 Blood Pressure 119/58 L Pulse Oximetry 98 99 04/22/18 04:00 04/22/18 04:01 04/22/18 04:30 Temperature 36.4 C Pulse Rate 66 65 73 Respiratory Rate 20 20 21 Blood Pressure 170/72 H Pulse Oximetry 100 100 97 04/22/18 04:31 04/22/18 05:00 04/22/18 05:01 Temperature Pulse Rate 87 85 Respiratory Rate 20 32 H 34 H Blood Pressure 202/84 H Pulse Oximetry 97 99 97 04/22/18 05:30 04/22/18 06:00 04/22/18 06:01 Temperature Pulse Rate 80 76 71 Respiratory Rate 22 21 20 Blood Pressure 167/72 H Pulse Oximetry 98 98 98 04/22/18 06:30 04/22/18 07:42 04/22/18 10:58 Temperature Pulse Rate 69 68 Respiratory Rate 20 20 20 Blood Pressure Pulse Oximetry 97 97 98 Intake & Output 04/21/18 04/22/18 04/22/18 18:59 06:59 18:59 Intake Total 3265.1 / 3265.1 7033 / 7033 284.1 / 284.1 Output Total 2525 / 2525 Balance 740.1 / 740.1 7033 / 7033 284.1 / 284.1 Weight 122.5 kg Intake: IV 2034.1 / 2034.1 1500 / 1500 284.1 / 284.1 Cordarone Inj 450 MG In D5W Inj 250 / 250 250 / 250 241 ML @ 1 MG/MIN 33.33 mls/hr IV.CONT TITRATE PRN Rx#: [id number] Nimbex Inj 200 MG In NS Inj 480 1000 / 1000 1000 / 1000 ML @ 1 MCG/KG/MIN 18.75 mls/hr IV.CONT TITRATE PRN Rx#: [id number] Versed Inj 50 mg In 50 ml @ 2 84.1 / 84.1 100 / 100 34.1 / 34.1 MG/HR 2 mls/hr IV.CONT TITRATE PRN Rx#:[id number] Avycaz Inj 1.25 GM In NS Inj 50 100 / 100 50 / 50 ML @ 25 mls/hr IV.SIG Q8H [facility] Rx#:[id number] fentaNYL 10 mcg/mL Premix Drip 500 / 500 250 / 250 2,500 mcg In 250 ml @ 50 MCG/HR 5 mls/hr IV.SIG TITRATE PRN Rx #:[id number] Flolan (30,000 ng/mL) Neb 37.5 100 / 100 100 / 100 ML In NS Inj 62.5 ML @ As Directed NEB Q8H [facility] Rx#: [id number] Tube Feeding 511 / 511 4753 / 4753 Tube Irrigant 120 / 120 180 / 180 Water Bolus Amount 600 / 600 600 / 600 Output: Urine Amount (Catheter) 2525 / 2525 Indwelling Urethral Catheter 2525 / 2525 Other: Date of Last Bowel Movement 04/21/18 04/21/18 Result Diagrams: 04/22/18 05:00 04/22/18 05:00 Objective Remarks: GENERAL: 52 YO AAF critically ill currently orotracheally intubated SKIN: Warm and dry. HEAD: Normocephalic. EYES: Disconjugate. Left eye leftward gaze. Pupils are round 2 mm bilaterally and reactive. No scleral icterus. No injection or drainage. NECK: Supple, trachea midline. No JVD or lymphadenopathy. CARDIOVASCULAR: Regular rate and rhythm. S1, S2 no S4. Without murmur without murmurs, gallops, or rubs. RESPIRATORY: Diminished breath sounds throughout. No wheezing. GASTROINTESTINAL: Abdomen soft, non-tender, nondistended. MUSCULOSKELETAL: + [place] peripheral edema. Neuro: sedated and intubated. Positive corneal reflex. Does not withdraw to pain. Currently on paralytic with a [id number] of 2 out of 4 Assessment and Plan - Assessment and Plan Plan: Assessment: 52yF with severe ARDS which has been refractory to aggressive medical therapy, including recent pronation therapy, inhaled epoprostanol, neuromuscular blockade. associated organ dysfunction persists, including encephalopathy and acute kidney injury. no meaningful improvements in weeks, and now day #35 of intubation. unable to safely pursue tracheostomy due to high fio2 requirements. remains very critically ill with severe acute lung failure which has been refractory to all our attempts at improvement in gas exchange. NEURO/PSYCH: Acute encephalopathy - secondary to hypercapnia, improving. Abnormal brain CT with 3 mm hyperdensity in central [place] Major depressive disorder NOS Chronic opioid use Encephalomalacia right cerebellum/left occipital lobe d/c scheduled oxycodone and quetiapine. d/c midazolam continue fentanyl and propofol d/c nimbex drip: high concern over severe myopathy of critical illness. has been on continuous neuromuscular blockade for weeks. goal RASS -2. Monitor neuro status. Daily sedation vacation when clinically appropriate.. MRI brain 03/19 - No evidence of brainstem hemorrhage. Small foci of encephalomalacia in the left occipital lobe and right cerebellum. No evidence of acute infarct, hemorrhage, mass or edema. No evidence of enhancing intra- axial or extra-axial lesions. RESP: Acute hypercapnic and hypoxemic respiratory failure Severe ARDS Acute asthma exacerbation Healthcare associated pneumonia WISAM/OHS Prior tobacco abuse Bilateral pleural effusions right 2.2 cm. Left 1.3 cm LMA was placed in the field by EVAC. Intubated in ED 03/18. Intubation day #35 Continue with vent support keep sats >92% On albuterol/ipratropium aerosols every 6 hours with albuterol aerosols every 2 hours as needed for dyspnea Weaned off epoprostenol 03/23. resumed 04/09. clearly has provided no long-term durable benefit over weeks. will discontinue today. On PRVC On methylprednisolone succinate 40mg IV daily, CV: Hypertension Hyperlipidemia Chronic diastolic heart failure Paroxysmal atrial fibrillation on chronic anti-coagulation with warfarin currently normal sinus rhythm Peripheral vascular disease/peripheral arterial disease Elevated troponin intermittent bradycardia Cor pulmonale biventricular dysfunction Monitor HR and BP keep MAP>65mmHg 2D echo 02/24/18ejection fraction 50%. Wall thickness upper limits of normal. Trace MR. Continue atorvastatin 40 mg daily for dyslipidemia Doppler bilateral upper and lower extremities revealed no acute thrombus amlodipine 10mg po daily resumed 04/17. Recently held due to edema concerns. T hydralazine 100mg po q8h, Clonidine 0.2 mg q. 7 days patch, carvedilol 3.125 mg BID, Currently on amiodarone drip at 0.5 mg/min. GI: History of GERD Chronic pancreatitis insufficiency Hypoalbuminemia vital high-protein @45 cc an hour per GIs recommendation Famotidine for GI prophylaxis Docusate sodium/senna 1 tablet twice daily for bowel regimen Creon home medication 3 times daily FEN/RENAL: Acute kidney injury superimposed on CKD Chronic kidney disease stage III Acute severe intravascular volume overload with pulmonary edema Hypernatremia Hypokalemia [place] catheter was placed in the emergency department. Monitor renal function, I/O's, avoid nephrotoxins On Bumetanide 2mg BID Cr: 1.26 Renal is following- Dr. Fraser Receiving 40 mEq potassium chloride IV, 25 mEq by tube and 2 g mag sulfate. Recheck potassium this evening. Free water 150 cc every 6 hours for hypernatremia. Recheck BMP in a.m. ID: Acute healthcare associated pneumonia -ESBL positive Klebsiella pneumonia Veillonella species bacteremia Continue with abx per ID (ceftazidime/avibactam, Colistin nebs,) Monitor for signs of infections ( Fever, WBC) 04/10 Sputum: Normal resp jennifer Blood cultures 2 03/18 Veillonella spp. Repeat 03/20 no growth to date Sputum, ESBL positive Klebsiella pneumonia 04/04 Sputum 04/14 gram-negative rhona Pneumococcal urinary antigens, influenza a and B and chlamydia and mycoplasma all pending/negative HEME: Leukocytosis Chronic anemia/normocytic Monitor CBC daily. No indication for transfusion of blood products at this time. ENDO: Diabetes mellitus History of gout SSI q4h high scale Increase insulin detemir to 50 units subcu twice daily. Holding glipizide 10 mg twice daily and insulin glargine/home medication Holding allopurinol 300 mg daily/home medication MSK: Elevated BMI Osteoporosis/osteoarthritis PT evaluate and treat PROPH: SCDs for DVT prophylaxis. Heparin SQ ACCESS: Peripheral IV, right femoral central line placed 04/14 Doppler US B/l Upper and lower EXT negative for DVT on 03/19 Palliative care is following
--- NOTE | 2018-04-22 13:24 | P.PNPAL ---
Reason for Visit Reason for visit: a. To assist with evaluation and management of symptoms including: dyspnea, pain. b. To assist medical decision maker(s) with: better understanding of current medical conditions; weighing benefits/burdens of medical treatment options; making medical treatment decisions. Subjective Subjective/Interval History: Call from nursing staff to report family is at bedside. Dr. Hollis and I met with son, Rocael and other family members. Medical update provided. Reviewed hospital course and no evidence of clinical improvement. Family understands patient is dying. Son has elected DNR and is considering transition to comfort once family is able to be notified. Timing to be determined. Questions answered. Patient remains on mech vent, FiO2 80%, PEEP 15. She is not making any clinical improvement. Respiration are agonal on vent. Clinical data: * Afebrile. HR 40-80, irregularly irregular, agonal respirations on vent, oxygen saturation 93% * WBC 10.5, hemoglobin 7.7, hematocrit 22.5, platelets 187 * Creatinine 1.35 * 04/14/18 - sputum culture again + Klebsiella pneumoniae ESBL positive MDRO * 04/22/18 - Chest xray -unchanged diffuse pulmonary infiltrates. . Family/Friend Interactions: see interval note. Advance Directives Living Will: Never completed Health Care Surrogate: Never completed Durable Power of Network Support Technician: Never completed Health Care Surrogate Name and Number: family David spokesperson [phone] Documented care wishes:: No written advanced directives. Significant change in goals:: NO CODE. Plan to transition to comfort measures with withdrawal of life support , timing to be determined. Objective Vital Signs: Vital Signs 04/21/18 14:00 04/21/18 15:15 04/21/18 16:00 Temperature 97.6 F Pulse Rate 65 67 Respiratory Rate 20 20 Blood Pressure 156/68 H Pulse Oximetry 96 98 04/21/18 16:30 04/21/18 17:00 04/21/18 17:30 Temperature Pulse Rate 61 64 61 Respiratory Rate 41 H 37 H 41 H Blood Pressure 146/65 H Pulse Oximetry 95 96 96 04/21/18 18:00 04/21/18 18:30 04/21/18 19:00 Temperature Pulse Rate 65 67 58 L Respiratory Rate 37 H 20 20 Blood Pressure 153/67 H Pulse Oximetry 99 99 96 04/21/18 19:01 04/21/18 19:30 04/21/18 20:00 Temperature 97.7 F Pulse Rate 58 L 64 55 L Respiratory Rate 20 20 20 Blood Pressure 131/63 133/64 Pulse Oximetry 96 98 97 04/21/18 20:05 04/21/18 20:30 04/21/18 20:46 Temperature Pulse Rate 55 L 64 65 Respiratory Rate 20 20 20 Blood Pressure Pulse Oximetry 99 04/21/18 21:00 04/21/18 21:01 04/21/18 21:16 Temperature Pulse Rate 66 66 Respiratory Rate 20 20 20 Blood Pressure 164/71 H Pulse Oximetry 99 100 96 04/21/18 21:30 04/21/18 22:00 04/21/18 22:01 Temperature Pulse Rate 53 L 53 L 53 L Respiratory Rate 20 20 20 Blood Pressure 122/58 L Pulse Oximetry 96 96 96 04/21/18 22:30 04/21/18 23:00 04/21/18 23:04 Temperature Pulse Rate 53 L 59 L Respiratory Rate 20 20 20 Blood Pressure 137/65 Pulse Oximetry 96 98 98 04/21/18 23:30 04/22/18 00:00 04/22/18 00:30 Temperature 98 F Pulse Rate 56 L 58 L 56 L Respiratory Rate 20 20 20 Blood Pressure 137/63 Pulse Oximetry 98 98 97 04/22/18 01:00 04/22/18 01:30 04/22/18 01:41 Temperature Pulse Rate 59 L 54 L Respiratory Rate 20 20 21 Blood Pressure 143/66 H Pulse Oximetry 97 96 99 04/22/18 02:00 04/22/18 02:01 04/22/18 02:30 Temperature Pulse Rate 51 L 51 L 61 Respiratory Rate 20 20 20 Blood Pressure 120/59 L Pulse Oximetry 96 96 100 04/22/18 03:00 04/22/18 03:30 04/22/18 03:32 Temperature Pulse Rate 52 L 51 L 52 L Respiratory Rate 20 20 20 Blood Pressure 119/58 L Pulse Oximetry 98 99 04/22/18 04:00 04/22/18 04:01 04/22/18 04:30 Temperature 97.6 F Pulse Rate 66 65 73 Respiratory Rate 20 20 21 Blood Pressure 170/72 H Pulse Oximetry 100 100 97 04/22/18 04:31 04/22/18 05:00 04/22/18 05:01 Temperature Pulse Rate 87 85 Respiratory Rate 20 32 H 34 H Blood Pressure 202/84 H Pulse Oximetry 97 99 97 04/22/18 05:30 04/22/18 06:00 04/22/18 06:01 Temperature Pulse Rate 80 76 71 Respiratory Rate 22 21 20 Blood Pressure 167/72 H Pulse Oximetry 98 98 98 04/22/18 06:30 04/22/18 07:42 04/22/18 10:58 Temperature Pulse Rate 69 68 Respiratory Rate 20 20 20 Blood Pressure Pulse Oximetry 97 97 98 Intake & Output 04/21/18 04/22/18 04/22/18 18:59 06:59 18:59 Intake Total 3265.1 / 3265.1 7033 / 7033 334.1 / 334.1 Output Total 2525 / 2525 Balance 740.1 / 740.1 7033 / 7033 334.1 / 334.1 Weight 122.5 kg Intake: IV 2034.1 / 2034.1 1500 / 1500 334.1 / 334.1 Cordarone Inj 450 MG In D5W Inj 250 / 250 250 / 250 241 ML @ 1 MG/MIN 33.33 mls/hr IV.CONT TITRATE PRN Rx#: [id number] Nimbex Inj 200 MG In NS Inj 480 1000 / 1000 1000 / 1000 ML @ 1 MCG/KG/MIN 18.75 mls/hr IV.CONT TITRATE PRN Rx#: [id number] Versed Inj 50 mg In 50 ml @ 2 84.1 / 84.1 100 / 100 34.1 / 34.1 MG/HR 2 mls/hr IV.CONT TITRATE PRN Rx#:[id number] Avycaz Inj 1.25 GM In NS Inj 50 100 / 100 50 / 50 50 / 50 ML @ 25 mls/hr IV.SIG Q8H JACKI Rx#:[id number] fentaNYL 10 mcg/mL Premix Drip 500 / 500 250 / 250 2,500 mcg In 250 ml @ 50 MCG/HR 5 mls/hr IV.SIG TITRATE PRN Rx #:[id number] Flolan (30,000 ng/mL) Neb 37.5 100 / 100 100 / 100 ML In NS Inj 62.5 ML @ As Directed NEB Q8H JACKI Rx#: [id number] Tube Feeding 511 / 511 4753 / 4753 Tube Irrigant 120 / 120 180 / 180 Water Bolus Amount 600 / 600 600 / 600 Output: Urine Amount (Catheter) 252 / 252 Indwelling Urethral Catheter 2524 Other: Date of Last Bowel Movement 04/21/18 04/21/18 Physical Exam: CONSTITUTIONAL/GENERAL: This is an obese, critically ill patient intubated, mechanically ventilated, sedated, and an MICU bed. TUBES/LINES/DRAINS: ETT, OG, PIV, soft wrist restraints, [place], rectal tube, SCDs SKIN: No jaundice, rashes, or lesions. No wounds seen anteriorly. Skin temperature appropriate. Not diaphoretic. EYES: eyes closed. ENT: Unable to assess hearing. Nose without bleeding or purulent drainage. CARDIOVASCULAR: Irregularly irregular. RESPIRATORY/CHEST: Diminished bibasilar, scattered rhonchi bilaterally. GASTROINTESTINAL: Abdomen obese, soft, non-tender, nondistended OG in place. GENITOURINARY: Without palpable bladder distension. [place] catheter in place. 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 Legs + edema bilateral lower extremities. NEUROLOGICAL:Sedated. PSYCHIATRIC: Sedated. Diagnostic Tests Laboratory: Laboratory Results - last 72 hr 04/04/18 04/19/18 04/19/18 10:58 16:22 20:56 WBC RBC Hgb Hct MCV MCH MCHC RDW Plt Count MPV Neut % (Auto) Lymph % (Auto) [place] % (Auto) Eos % (Auto) Baso % (Auto) Neut # (Auto) Lymph # (Auto) [place] # (Auto) Eos # (Auto) Baso # (Auto) WBC Differential Differential Comment Puncture Site Patient Temperature O2 Saturation ABG pH ABG pCO2 ABG pO2 ABG HCO3 ABG O2 Content ABG Base Excess ABG Methemoglobin Trevor Test Hemoglobin Carboxyhemoglobin O2 Delivery Device Vent Setting Inspired O2 Critical Value Sodium Potassium Chloride Carbon Dioxide Anion Gap BUN Creatinine Estimated GFR POC Glucose 242 H 259 H Random Glucose Calcium Phosphorus Magnesium Total Bilirubin AST ALT Alkaline Phosphatase Total Protein Albumin Antibody Identification Non-Specific Agglutinin 04/19/18 04/19/18 04/20/18 22:19 23:45 04:08 WBC RBC Hgb Hct MCV MCH MCHC RDW Plt Count MPV Neut % (Auto) Lymph % (Auto) [place] % (Auto) Eos % (Auto) Baso % (Auto) Neut # (Auto) Lymph # (Auto) [place] # (Auto) Eos # (Auto) Baso # (Auto) WBC Differential Differential Comment Puncture Site Patient Temperature O2 Saturation ABG pH ABG pCO2 ABG pO2 ABG HCO3 ABG O2 Content ABG Base Excess ABG Methemoglobin Trevor Test Hemoglobin Carboxyhemoglobin O2 Delivery Device Vent Setting Inspired O2 Critical Value Sodium Potassium 4.2 D Chloride Carbon Dioxide Anion Gap BUN Creatinine Estimated GFR POC Glucose 274 H 234 H Random Glucose Calcium Phosphorus 3.2 Magnesium 2.1 Total Bilirubin AST ALT Alkaline Phosphatase Total Protein Albumin Antibody Identification 04/20/18 04/20/18 04/20/18 05:15 05:15 08:42 WBC 10.6 RBC 2.89 L Hgb 7.6 L Hct 24.4 L MCV 84.4 MCH 26.3 L MCHC 31.2 L RDW 21.3 H Plt Count 169 MPV 10.6 Neut % (Auto) 85.5 H Lymph % (Auto) 7.6 L [place] % (Auto) 5.7 Eos % (Auto) 0.8 Baso % (Auto) 0.4 Neut # (Auto) 9.0 H Lymph # (Auto) 0.8 L [place] # (Auto) 0.6 Eos # (Auto) 0.1 Baso # (Auto) 0.0 WBC Differential . Differential Comment Auto diff final Puncture Site Patient Temperature O2 Saturation ABG pH ABG pCO2 ABG pO2 ABG HCO3 ABG O2 Content ABG Base Excess ABG Methemoglobin Trevor Test Hemoglobin Carboxyhemoglobin O2 Delivery Device Vent Setting Inspired O2 Critical Value Sodium 145 Potassium 4.1 Chloride 106 Carbon Dioxide 27.1 Anion Gap 12 BUN 117 H Creatinine 1.33 H Estimated GFR 50 L POC Glucose 226 H Random Glucose 230 H Calcium 9.4 Phosphorus 3.4 Magnesium 2.2 Total Bilirubin 0.4 AST 22 ALT 26 Alkaline Phosphatase 82 Total Protein 6.9 Albumin 2.0 L Antibody Identification 04/20/18 04/20/18 04/20/18 12:20 15:46 19:44 WBC RBC Hgb Hct MCV MCH MCHC RDW Plt Count MPV Neut % (Auto) Lymph % (Auto) [place] % (Auto) Eos % (Auto) Baso % (Auto) Neut # (Auto) Lymph # (Auto) [place] # (Auto) Eos # (Auto) Baso # (Auto) WBC Differential Differential Comment Puncture Site Patient Temperature O2 Saturation ABG pH ABG pCO2 ABG pO2 ABG HCO3 ABG O2 Content ABG Base Excess ABG Methemoglobin Trevor Test Hemoglobin Carboxyhemoglobin O2 Delivery Device Vent Setting Inspired O2 Critical Value Sodium Potassium Chloride Carbon Dioxide Anion Gap BUN Creatinine Estimated GFR POC Glucose 240 H 229 H 269 H Random Glucose Calcium Phosphorus Magnesium Total Bilirubin AST ALT Alkaline Phosphatase Total Protein Albumin Antibody Identification 04/21/18 04/21/18 04/21/18 00:12 04:00 04:00 WBC 10.0 RBC 2.68 L Hgb 7.0 L Hct 22.2 L MCV 83.1 MCH 26.3 L MCHC 31.6 L RDW 22.3 H Plt Count 169 MPV 10.1 Neut % (Auto) Lymph % (Auto) [place] % (Auto) Eos % (Auto) Baso % (Auto) Neut # (Auto) Lymph # (Auto) [place] # (Auto) Eos # (Auto) Baso # (Auto) WBC Differential Differential Comment Puncture Site Patient Temperature O2 Saturation ABG pH ABG pCO2 ABG pO2 ABG HCO3 ABG O2 Content ABG Base Excess ABG Methemoglobin Trevor Test Hemoglobin Carboxyhemoglobin O2 Delivery Device Vent Setting Inspired O2 Critical Value Sodium 147 H Potassium 4.2 Chloride 106 Carbon Dioxide 28.4 Anion Gap 13 BUN 123 H Creatinine 1.46 H Estimated GFR 45 L POC Glucose 269 H Random Glucose 210 H Calcium 9.8 Phosphorus Magnesium Total Bilirubin AST ALT Alkaline Phosphatase Total Protein Albumin Antibody Identification 04/21/18 04/21/18 04/21/18 04:00 04:11 04:50 WBC 10.1 RBC 2.67 L Hgb 7.1 L Hct 22.5 L MCV 84.2 MCH 26.6 L MCHC 31.5 L RDW 21.8 H Plt Count 169 MPV 10.0 Neut % (Auto) 83.4 H Lymph % (Auto) 9.5 [place] % (Auto) 6.3 Eos % (Auto) 0.4 Baso % (Auto) 0.4 Neut # (Auto) 8.4 H Lymph # (Auto) 1.0 [place] # (Auto) 0.6 Eos # (Auto) 0.0 Baso # (Auto) 0.0 WBC Differential . Differential Comment Auto diff final Puncture Site Right radial Patient Temperature 98.6 O2 Saturation 94 ABG pH 7.43 H ABG pCO2 43 H ABG pO2 99 ABG HCO3 28 H ABG O2 Content 12.7 ABG Base Excess 3.5 H ABG Methemoglobin 1.7 Treovr Test Present Hemoglobin 9.5 L Carboxyhemoglobin 2.0 O2 Delivery Device Vent Vent Setting Prvc/ac Inspired O2 60 Critical Value No Sodium Potassium Chloride Carbon Dioxide Anion Gap BUN Creatinine Estimated GFR POC Glucose 232 H Random Glucose Calcium Phosphorus Magnesium Total Bilirubin AST ALT Alkaline Phosphatase Total Protein Albumin Antibody Identification 04/21/18 04/21/18 04/21/18 07:23 11:59 16:16 WBC RBC Hgb Hct MCV MCH MCHC RDW Plt Count MPV Neut % (Auto) Lymph % (Auto) [place] % (Auto) Eos % (Auto) Baso % (Auto) Neut # (Auto) Lymph # (Auto) [place] # (Auto) Eos # (Auto) Baso # (Auto) WBC Differential Differential Comment Puncture Site Patient Temperature O2 Saturation ABG pH ABG pCO2 ABG pO2 ABG HCO3 ABG O2 Content ABG Base Excess ABG Methemoglobin Trevor Test Hemoglobin Carboxyhemoglobin O2 Delivery Device Vent Setting Inspired O2 Critical Value Sodium Potassium Chloride Carbon Dioxide Anion Gap BUN Creatinine Estimated GFR POC Glucose 215 H 227 H 247 H Random Glucose Calcium Phosphorus Magnesium Total Bilirubin AST ALT Alkaline Phosphatase Total Protein Albumin Antibody Identification 04/21/18 04/21/18 04/22/18 17:19 19:49 00:00 WBC RBC Hgb Hct MCV MCH MCHC RDW Plt Count MPV Neut % (Auto) Lymph % (Auto) [place] % (Auto) Eos % (Auto) Baso % (Auto) Neut # (Auto) Lymph # (Auto) [place] # (Auto) Eos # (Auto) Baso # (Auto) WBC Differential Differential Comment Puncture Site Patient Temperature O2 Saturation ABG pH ABG pCO2 ABG pO2 ABG HCO3 ABG O2 Content ABG Base Excess ABG Methemoglobin Trevor Test Hemoglobin Carboxyhemoglobin O2 Delivery Device Vent Setting Inspired O2 Critical Value Sodium Potassium Chloride Carbon Dioxide Anion Gap BUN Creatinine Estimated GFR POC Glucose 264 H 282 H 249 H Random Glucose Calcium Phosphorus Magnesium Total Bilirubin AST ALT Alkaline Phosphatase Total Protein Albumin Antibody Identification 04/22/18 04/22/18 04/22/18 04:49 04:50 05:00 WBC 10.5 RBC 2.85 L Hgb 7.7 L Hct 23.5 L MCV 82.5 MCH 27.1 MCHC 32.8 RDW 21.7 H Plt Count 187 MPV 9.8 Neut % (Auto) Lymph % (Auto) [place] % (Auto) Eos % (Auto) Baso % (Auto) Neut # (Auto) Lymph # (Auto) [place] # (Auto) Eos # (Auto) Baso # (Auto) WBC Differential Differential Comment Puncture Site Right radial Patient Temperature 98.6 O2 Saturation 90 ABG pH 7.41 ABG pCO2 43 H ABG pO2 67 ABG HCO3 27 H ABG O2 Content 12.5 ABG Base Excess 2.4 H ABG Methemoglobin 1.5 Trevor Test Present Hemoglobin 9.9 L Carboxyhemoglobin 1.8 O2 Delivery Device Vent Vent Setting Prvc/ac Inspired O2 60 Critical Value No Sodium Potassium Chloride Carbon Dioxide Anion Gap BUN Creatinine Estimated GFR POC Glucose 217 H Random Glucose Calcium Phosphorus Magnesium Total Bilirubin AST ALT Alkaline Phosphatase Total Protein Albumin Antibody Identification 04/22/18 04/22/18 04/22/18 05:00 08:37 12:52 WBC RBC Hgb Hct MCV MCH MCHC RDW Plt Count MPV Neut % (Auto) Lymph % (Auto) [place] % (Auto) Eos % (Auto) Baso % (Auto) Neut # (Auto) Lymph # (Auto) [place] # (Auto) Eos # (Auto) Baso # (Auto) WBC Differential Differential Comment Puncture Site Patient Temperature O2 Saturation ABG pH ABG pCO2 ABG pO2 ABG HCO3 ABG O2 Content ABG Base Excess ABG Methemoglobin Trevor Test Hemoglobin Carboxyhemoglobin O2 Delivery Device Vent Setting Inspired O2 Critical Value Sodium 145 Potassium 3.6 Chloride 106 Carbon Dioxide 28.9 Anion Gap 10 BUN 114 H Creatinine 1.35 H Estimated GFR 49 L POC Glucose 197 H 173 H Random Glucose 188 H Calcium 10.0 Phosphorus Magnesium Total Bilirubin AST ALT Alkaline Phosphatase Total Protein Albumin Antibody Identification Result Diagrams: 04/22/18 05:00 04/22/18 05:00 Microbiology: Microbiology 03/24/18 16:30 Fungal Smear - Final Bronchial Washings - Left Lower Lobe No fungal elements seen Fungal Culture - Final No growth in 4 weeks 03/24/18 16:30 Acid Fast Bacilli Smear - Final Bronchial Washings - Left Lower Lobe No acid fast bacilli seen Mycobacterial Culture - Preliminary No growth in 4 weeks 04/18/18 21:52 Gram Stain - Final Sputum - Endotracheal Sputum Culture - Final Heavy growth normal respiratory jennifer 04/19/18 05:40 Legionella Antigen - Final Urine - Catheterized Urine Presumptive negative for Legionella pneumophila serogroup 1 antigen in urine, suggesting no recent or recurrent infection. Infection due to Legionella cannot be ruled out since other serogroups and species may cause disease, antigen may not be present in urine in early infection, and the level of antigen present in the urine may be below the detection limit of the test. 03/18/18 05:40 Streptococcus pneumoniae Antigen (M - Final Urine - Catheterized Urine Presumptive negative for streptococcus pneumoniae antigen, suggesting no current or recent infection. Infection due to Streptococcus pneumoniae cannot be ruled out since the antigen present in the sample may be below the detection limit of the test. Imaging: Head CT 03/18/18 18:46 CONCLUSION: 1. Solitary 3 mm hyperdensity in the central [place] of uncertain significance. Differential considerations include a punctate calcification and acute hemorrhage. 2. No acute findings in the supratentorial brain. Head MRI 03/19/18 00:00 CONCLUSION: 1. No evidence of brainstem hemorrhage. 2. Small foci of encephalomalacia in the left occipital lobe and right cerebellum 3. No evidence of acute infarct, hemorrhage, mass or edema. 4. No evidence of enhancing intra-axial or extra-axial lesions. Venous Doppler Study 03/19/18 00:00 CONCLUSION: The study is negative for bilateral lower extremity deep venous thrombosis. Foot X-Ray 03/22/18 00:00 CONCLUSION: No acute bony destructive change. Previous amputations as above. Fairly marked soft tissue swelling of the forefoot. Abdomen X-Ray 03/26/18 00:00 CONCLUSION: Abdomen/Pelvis CT 03/28/18 00:00 CONCLUSION: 1. Minimal increase in the trace bilateral pleural effusions with compressive atelectasis in both bases. 2. Gallstones in a benign-appearing gallbladder 3. I don't see evidence for colitis. 4. I don't see inflammatory changes in the abdomen. Chest CT 03/28/18 00:00 CONCLUSION: 1. Biventricular cardiomegaly with coarse interstitial changes in both lungs. A component of this could be failure 2. Trace bilateral pleural effusions larger on the right.. These have decreased slightly in the interval. Foot MRI 03/28/18 00:00 CONCLUSION: 1. Difficult exam to interpret because of extensive soft tissue swelling. No obvious osteomyelitis. 2. Nuclear medicine tagged white cell study may help. Chest X-Ray 04/22/18 06:00 CONCLUSION: Unchanged diffuse pulmonary infiltrates. Procedures: * Right IJ central line * Intubated . Assessment and Plan - Disease Oriented Problem List (1) ARDS (adult respiratory distress syndrome) (2) Acute respiratory failure with hypoxemia (3) HCAP (healthcare-associated pneumonia) Comment: Multi drug resistant -- Klebsiella ESBL + (4) Diabetes mellitus type 2 in obese (5) Atrial fibrillation (6) Chronic kidney disease, stage III (moderate) (7) Hypertension (8) Hypoglycemia due to type 2 diabetes mellitus (9) Lactic acid acidosis (10) Super obesity (11) WISAM (obstructive sleep apnea) (12) Asthma (13) H/O osteomyelitis (14) Diastolic heart failure (15) Diabetes (16) Acute renal failure superimposed on stage 3 chronic kidney disease - Symptom Scale (1) Pain 0-10 Scale: Unable to quantify (2) Dyspnea 0-10 Scale: Unable to quantify (3) Encephalopathy 0-10 Scale: Unable to quantify Pertinent Non-Medical Issues: Psychosocial: Never . Supported by her son, Rocael. Has 4 children ( Rocael, Jose Juan, Manny and Shobha). Spiritual: Moravian. Legal: Patient is not capacitated to make her own health care decisions, and at this point there is no reasonable probability that she will recover capacity to do so. . No written advanced directives. According to [place] statutes, health care proxy decision making falls to the majority of adult children, she has 4 children. Son Rocael reports he has always made decisions for patient. Jose Juan has opted out of decision making. Other children desire to participate but have wanted Rocael to be the spokesperson and communication hub. Ethical issues impacting care: None. Important Contacts: * Rocael Hanna, son: [phone] serving as family spokesperson * Shobha Hanna, daughter: [phone] * Jose Juan Hanna, son (has opted out of decision making) * Manny Hanna, son: * Carolyn Durand, sister: [phone] . Prognosis: Patient shows no signs of significant improvement in spite of aggressive care. She continues to require high ventilatory support and paralytic to main vent synchrony. Patient is terminal appears to be dying now. . Code Status: Full Code Plan: * Decision making: Patient is not capacitated to make her own health care decisions, and at this point there is no reasonable probability that she will recover capacity to do so. . No written advanced directives. According to [place] statutes, health care proxy decision making falls to the majority of adult children, she has 4 children. Son Rocael reports he has always made decisions for patient. Son Jose Juan has opted out of decision making. Other children remain involved with Rocael being the communication hub. * NO CODE * Goals of medical treatment: Plan to transition to comfort measures with withdrawal of life support, timing to be determined. Symptoms * Dyspnea: Dyspnea was initially felt to be due to CHF but now appears in large part due to multi-drug resistant +EBSL Klebsiella pneumonia. Patient's pulmonary status does not seem to be improving in spite of aggressive care. Plan for transition to comfort with withdrawal of life support. Orders will be written when family ready. * Pain: No clear pre-hospitalization pain syndromes. Patient likely painful from prolonged bedbound status; OT tube; OG tube; vascular lines; other catheters. Appears uncomfortable, will increase Fentanyl and Versed. No further recommendations at this time. * Palliative care will continue to assist with symptom management and to further clarify goals of medical treatment as the clinical course evolves. Attestation Attestation: To help prompt me to consider important information that might be impacting today's encounter and assessment, information from prior notes written by myself or my colleagues may have been "brought forward" into today's note. My signature on this note, however, is an attestation that I personally performed the exam, history, and/or decision-making noted today, and, unless otherwise indicated, the interactions with patient, family, and staff as well as the review of records all occurred today. I also attest that the listed assessment and stated plan reflect my best clinical judgment today based on the combination of historical information, prior notes, and today's exam/ interactions. When time spent is documented, it refers only to time spent today by the signer, or if indicated, combined time spent today by collaborating physician/nurse practitioner.
[2018-04-22] MEDS ORDERED: Midazolam 50 MG/50 ML Inj 50 MG/50 ML BAG IV.CONT PRN (14:00)
[2018-04-22] MEDS ORDERED: fentaNYL Citrate Inj 100 MCG/2 ML Ampul IV.PUSH PRN (14:20)
--- NOTE | 2018-04-22 15:03 | P.DN ---
Discharge Sum: Prov - Provider Primary care physician: UNKNOWN Admitting clinician: Bill Hollis Consults: 03/20/18 14:09 HUB Only Consult Order Routine Consulting Provider: Alli Carson 03/22/18 10:20 Consult to Infectious Diseases Routine Consulting Provider: Itzel Dailey Reason for Consultation: Assessment in the workup and treatment of Veillonella species bacteremia Notified:: Service Spoke with:: CORY Date Notified:: 03/22/18 Time Notified:: 10:55 Ordering Provider: VINCENT 03/30/18 14:33 Consult to Palliative Care Routine Consulting Provider: Arlene Carolina Reason for Consultation: family asks for goals of care discussion. potentially reversible insult. Notified:: Service Spoke with:: ANUP Date Notified:: 03/30/18 Time Notified:: 14:47 Ordering Provider: FRANKO 04/07/18 11:14 HUB Only Consult Order Routine Consulting Provider: [facility], 04/07/18 11:20 HUB Only Consult Order [facility] 04/07/18 13:03 Consult to Nephrology Routine Consulting Provider: Alverto Fraser Does the patient have a Harvest Worker who follows them?: No Preferred Nephrology Milking Machine Mechanic:: Defective Cigarette Slitter Physician Reason for Consultation: YOU Notified:: Office Spoke with:: Haley Date Notified:: 04/07/18 Time Notified:: 13:09 Ordering Provider: ARACELY Discharge Sum: Summary - Date and Time Date of admission: 03/18/18 18:56 Date of : 04/22/18 Time of : 14:42 - Summary Details: 52-year-old female with past medical history of diabetes mellitus, hypertension, hyperlipidemia, atrial fibrillation on chronic anticoagulation with warfarin, chronic diastolic heart failure, asthma, WISAM, peripheral vascular disease, super morbid obesity. She has been at [facility] since 03/02/18. Abeba JACOBO was called due to respiratory distress. When they arrived as she was found to be in respiratory distress with sats in the 70s. She was communicating with them and reportedly said "leave me alone". She then had PEA arrest. She received CPR reportedly 10-15 minutes and received 2 doses of epinephrine. LMA was placed by EVAC. LMA was removed and she was intubated by Dr. Daly after receiving etomidate 20 mg IV and succinylcholine. She has demonstrated purposeful movements post intubation, and is now on a propofol drip. She was recently admitted [place] [facility] [place] due to hypoglycemia, fall after isolated episode of diarrhea, hypoxia requiring HFNC. She has chronic interstitial changes on CXR. Reviewed records from [facility] which indicate she completed a 7 day course of Levaquin and has been on a prednisone taper. Current CXR shows bibasilar opacities. WBC is 16 ( previously 7.9). She has acute hypercapneic and hypoxemic respiratory failure. 03/19: Afebrile. Remains on 100% FiO2 PEEP of 12. Central has been placed for access due to multiple drips. Plan MRI brain today if respiratory status improves. Does not tolerate lying flat. Likely will need epoprostenol and rotaprone 03/20: Started on epoprostenol and currently on a rotor from bed. Currently on cisatracurium drip at 1 mcg/kg/min. Diuresing well. 03/21: Weaning down epoprostenol. Remains on cisatracurium drip at 6 mcg/kg/ min. Diuresis 6 L. Saturation was improved FiO2 down to 45%. 03/22: Hypothermic overnight. Currently euthermic. Excellent response to bumetanide drip. FiO2 down to 40%. PEEP down to 8. Possible discontinue paralytic agent today. 03/23: Resting comfortable in bed in no acute distress. Afebrile. Desaturated so placed back on rotor prone bed. Creatinine slowly increasing. 03/24: Afebrile. Worsening chest x-ray it appears to be volume overloaded again. +10 L past 24 hours. Will restart on bumetanide drip. Plan for bronchoscopy today. Switch to ceftazidime/avibactam secondary to ESBL positive Klebsiella pneumonia 03/25: FiO2 to 55%. Tolerating demanding drip with -2 L past 24 hours. Bronchoscopy results pending. Positive BM. Restarting tube feeding today 03/26: Cr continues to rise, although clinically continues to appear severely volume overloaded. fio2 70%. supine all night. off nimbex. off flolan. ID managing ESBL/MDRO/KPC Klebsiella and anaerobic bacteremia. 03/27: off rotaprone bed. multiple desat episodes overnight. on 100% fio2 and PEEP 10 this AM. good diuresis with net -2L/24h. bumex drip continues. awakens and follows commands. 03/28: not diuresing as well as yesterday. wbc uptrending. 2 more episodes of bradycardia, not associated with hypoxia. however, fio2 remains severely elevated. I increased her peep to 14. still arouses and moves all extremities. high concern for ongoing infectious etiology, but with high o2 requirements and intermittent bradycardia requiring atropine, at present too unstable for repeat imaging. 03/29: ct C/A/P without overt infectious source. does demonstrate radiographic evidence of biventricular dysfunction. bedside echo today demonstrates the same , and dilated IVC without respiratory variation. off vasopressors. required atropine for a HR of 15 once overnight. still very hypoxic: changed to APRV 5:1 , , 0.8. 03/30: remains on APRV with hypoxia. multiple episodes of bradycardia and a 18 second pause yesterday. trialed on dobutamine but with multiple dysrhythmias. now on low-dose dopamine to mitigate bradycardia. adequate diuresis overnight. cxr improving slightly. still remains volume overloaded, and YOU persists. 03/31: mild improvements in fio2. remains on APRV. no more bradycardia today. still on dopamine to prevent pauses/bradycardia. YOU persists, but stable. unable to diurese yesterday and now net +2L despite fluid overload. must increase forced diuresis to improve hypoxemia. 04/01: Remains sedated, orally intubated on mechanical ventilation. Being diuresed. Started on Reglan in view of high gastric residuals and decreasing fentanyl as tolerated. 2: Remains sedated, orally intubated on APRV mode mechanical ventilation. 04/03: Remains sedated, orally intubated on mechanical ventilation. Awaiting family meeting with palliative care to decide goals of therapy. Being diuresed. 04/04: Remains sedated, orally intubated on mechanical ventilation. Switch to PRVC mode overnight. On 50% FiO2, PEEP +8. Family deciding regarding goals of therapy. 04/05: Remains sedated, orally intubated on mechanical ventilation. PEEP increased to +10 overnight due to hypoxia. 04/06: Remains sedated, orally intubated on mechanical ventilation. Worsening oxygenation since yesterday. Chest x-ray showed fluid overload. Resume Bumex twice daily yesterday in addition to Zaroxolyn PO. 04/07: Remains sedated, orally intubated on mechanical ventilation. Diuresed. Renal function remains a concern. Started on colistin nebs per ID due to very resistant organisms in sputum. Eventually needs tracheostomy and PEG tube placement. 04/08 Patient remains sedated with Versed and Fentanyl infusion. On Cardene drip.Had T:99.7 last night. Remains on high PEEP and FIO2( PEEP:15, FIO2: 65%) 04/09 Patient is intubated with Versed and Fentanyl drips. Tmax 100.3. Now on PRVC with PEEP:12 and FIO2 100% 04/10 Patient is sedated with Fentanyl and Versed drips. Flolan started yesterday. On PRVC with PEEP: 15 and FIO2 100%. Afebrile. 04/11 Patient was hypoxic overnight with [id number]'s given Rocuronium 100mg IV for desaturation and vent synchrony remains on high PEEP15 with 100%FIO2. Sedated with Versed and Fentanyl drips. CXR this morning shows diffuse b/l infiltrates severe in lower lung zones. 04/12 Patient remains sedated and intubated and on Flolan. Afebrile. 04/13 Patient remains sedated with Versed and Fentanyl and intubated. Afebrile. On Flolan . On PRVC with PEEP: 15, FIO2 down 70%. 04/14 Patient had another episode of desaturation overnight now on PRVC with PEEP :15 and 100% FIO2. T:99.7 last night. Sedated with Versed/Fentanyl drips. On Flolan 04/15 Patient remans sedated with Fentanyl, Versed and intubated. Afebrile. On PRVC with PEEP:15 and FIO2 75%. 04/16: Intubation day #29. Afebrile. FiO2 increased to 100%. More secretions. Will need to paralyze with cisatracurium drip for vent synchrony as patient is currently out of peeping despite maximum midazolam and fentanyl drips. Remains on epoprostenol 04/17: The patient day #30. Remains on cisatracurium drip at 5 mcg/kg/min. FiO2 down to 50%. Chest x-ray reveals diffuse ARDS. Tolerating tube feeds. 04/18: Intubation day #31. We will attempt to wean off cisatracurium drip. FiO2 remains around 50%. Tolerating tube feeding. 04/19: Intubation day #32. Patient went to A. fib with RVR overnight. Given 0.5 mg digoxin. Started on amiodarone drip per protocol currently normal sinus rhythm. Did not tolerate paralytic vacation yesterday became tachypneic and auto PEEP 04/20: no meaningful improvements. fio2 remains high. intubation day #33. some family now discussing possibility of withdraw of care and transition of goals, however did not have all family at bedside for my discussion, so will need to involve all family in this discussion. rate better controlled and out of RVR. all organ dysfunction persists and we have been unable to lighten paralytic or sedation at all without hypoxia. 04/21: no changes or improvements. still requiring neuromuscular blockade to maintain o2 sats. intubation day #34. family meetings ongoing. 04/22: intubation day #35. family still resistant to transition of goals. it is clear that our current therapies are completely ineffective in making any forward progress is severe lung failure. will stop inhaled epoprostanol as it is clearly ineffective and will stop neuromuscular blockade: patients on weeks of continuous neuromuscular blockade have far worse outcomes. also, context sensitive half-time of midazolam given 4-6 weeks of infusion is quite large, and will need to decrease and limit our midazolam exposure at this point. will attempt other sedation strategies. continue to discuss poor prognosis with family, and this is, at this point, most likely non-survivable. decision made to pursue comfort measures. patient withdrawn from life support. made comfortable. family at bedside. patient at [id number]. - Additional Data Family: at bedside Attending/PCP notified?: Yes Attending physician: Marbella Dowd MD Was code activated?: No
== END 2018-04-22 14:42 | disposition expired ==
LOC: NEPC 17:23 → NEDA 18:56 → HIMC 21:20
PROVIDERS: ADMIT Emergency Medicine; ATTEND Emergency Medicine